=== PATIENT | male | born 1935 | race Caucasian/White ===

== ENCOUNTER → 2016-04-13 | Outpatient (CLI) | payer MEDICARE, OTHER ==
[2016-04-13 07:27] LABS: CH 31.2; CHCM 32.7; HCT 53.3 % (39.0-53.0); HDW 2.39; HGB 17.3 gm/dL (13.0-17.5); MCH 31.2 pg (25.0-35.0); MCHC 32.5 g/dL (31.0-37.0); MCV 95.9 fL (80.0-100.0); Mean Platelet Volume 7.1; RBC 5.56 m/uL (4.30-5.90); RDW 14.7 % (11.5-15.5); WBC 6.3 k/uL (3.8-10.6)
[2016-04-13 07:41] LABS: INR 2.3 (<1.1); Prothrombin Time 22.1 sec (9.0-12.0)
[2016-04-13 07:49] LABS: Anion Gap 14 mmol/L; Blood Urea Nitrogen 18 mg/dL (9-20); Calcium 9.6 mg/dL (8.4-10.2); Carbon Dioxide 30 mmol/L (22-30); Chloride 104 mmol/L (98-107); Glucose 91 mg/dL (74-99); Non-African American GFR(MDRD) 50 (>60 ml/min/1.73 sqM); Potassium 4.3 mmol/L (3.5-5.1); Sodium 148 mmol/L (137-145)
== END | disposition home or self-care (01) ==
LOC: LABWHC1 06:37
PROVIDERS: ATTEND Internal Medicine Clinical Cardiac Electrophysiology
DX: E78.2 Mixed hyperlipidemia (principal); I25.5 Ischemic cardiomyopathy
CPT/HCPCS: 36415; 80048; 85027; 85610

== ENCOUNTER 2016-04-19 06:05 | Day surgery (SDC) | payer MEDICARE, OTHER ==
[2016-04-09 13:25] VITALS: BMI 34.4
[~2016-04-19 06:05] MED LIST: SODIUM CHLORIDE 0.9% 1,000 ML IV SCH
[2016-04-19] MEDS ORDERED: LIDOCAINE 1% INJ 10MG/ML (20 ML MDV) ONE (07:41)
[2016-04-19] MEDS ORDERED: PHENYLEPHRINE-0.9% NACL SYG 1 MG/10 ML SYRINGE ONE (07:41)
[2016-04-19] MEDS ORDERED: ePHEDrine 50 MG/ML 1 ML AMP ONE (07:41)
[2016-04-19] MEDS ORDERED: MIDAZOLAM 2 MG/2 ML VIAL ONE (07:41)
[2016-04-19] MEDS ORDERED: fentaNYL (PF) 50 MCG/ML 2 ML AMP ONE (07:41)
[2016-04-19] MEDS ORDERED: PROPOFOL 10 MG/ML 20 ML VIAL IV ONE (07:41)
[2016-04-19 07:44] LABS: INR 2.7 (<1.1); Prothrombin Time 26.1 sec (9.0-12.0)
[2016-04-19] MEDS ORDERED: LIDOCAINE 2% INJ 20 MG/ML SQ ONE (08:17)
[2016-04-19] MEDS ORDERED: HEPARIN SODIUM (1,000 UNIT/ML) 1,000 UNIT in SODIUM CHLORIDE 0.9% 1,000 ML IRRIGATION ONE (08:18)
[2016-04-19] MEDS ORDERED: HYDROcodone/APAP 5-325MG 1 EACH TAB PO PRN (10:49)
[2016-04-19] MEDS ORDERED: ACETAMINOPHEN IV (For NPO) 1,000 MG in EMPTY BAG 1 BAG IVPB ONE (10:49)
[2016-04-19] MEDS ORDERED: COLCHICINE 0.6 MG TAB PO PRN (10:51)
[2016-04-19] MEDS ORDERED: ALPRAZolam 0.5 MG TAB PO PRN (10:51)
--- NOTE | 2016-04-19 11:59 | CE ---
DATE OF SERVICE: 04/19/2016 Mr. Martinez is a 80-year-old male patient with atypical atrial flutter with RVR. He is on metoprolol and amiodarone 100 mg p.o. daily. He is brought in for an EP study atrial flutter ablation. Previously several years back he underwent SVT ablation. The patient was appropriately anticoagulated, INR was therapeutic today. He is on Coumadin. He also has a history of coronary artery disease and valvular heart disease, status post bypass surgery. The patient was brought to the EP lab in a fasting state. Written informed consent was obtained prior to the procedure. Both groins were prepped and draped as per protocol. Lidocaine 1% was used for local anesthesia. Venous sheaths were placed in the right and left femoral veins, and via these diagnostic catheters, intracardiac echo catheter and later mapping ablation catheter were placed. Patient was in atrial flutter at the start of the study. His tachycardia cycle length was 279 ms. Later when he converted to sinus rhythm, sinus cycle length was 781 ms. The MO interval was 2 ms, QRS 136 ms, QT 4.89 ms. Baseline AH interval 93 ms, baseline HV interval 58 ms, sinus rhythm. Sinus recovery times at 600, 700 and 400 ms were 1145 and 984 ms. AV node ERP from the coronary sinus was 600 ( ) 340 ms, at 600 ( ) 350 ms there was a nonsustained ST-T induced for several beats, which terminated spontaneously. AV node Wenckebach block from the high right atrium was 430 ms. There was no evidence for slow pathway conduction. AV node Wenckebach block 420 ms. When Isuprel was used, AV node Wenckebach block improved to 300 ms. There was no evidence for slow pathway conduction. No delta waves. High dose Isuprel was used and there was no induction of atrial fibrillation either. The 3D anatomic mapping was performed. Intracardiac echo was placed and anatomic mapping of the right atrial isthmus was performed. The tricuspid annulus and eustachian ridge were tagged and small pouch in the mid isthmus was tagged. Mapping was performed during atrial flutter. RF applications were applied from the tricuspid annulus and ( ) anatomic line was completed. The tachycardia terminated, consistent with caval tricuspid re-entry. This line was then completed and a complete anatomic line was made after anatomic line was completed. Pacing maneuvers were performed and bidirectional block was proven. Isthmus conduction time was 187 ms in both directions. Thereafter a full EP study was performed on and off Isuprel. Other than nonsustained SVT, no other arrhythmias were induced. IMPRESSION: Successful ablation for atrial flutter with complete bidirectional block, Isthmus conduction time on 100 mg of amiodarone was 187 ms. PLAN: Continue anticoagulation. Continue low-dose amiodarone and consider reducing amiodarone to 50 mg a day and continue metoprolol.
--- NOTE | 2016-04-19 12:03 | LTR ---
April 19, 2016 Dr. Dilshad Lopez RE: Rene Martinez Dear Dr. Lopez: I had the pleasure of seeing Mr. Rene Martinez in electrophysiology follow-up. Mr. Martinez has sustained typical atrial flutter, symptomatic, and he underwent successful ablation and termination of atrial flutter followed by completion of the ablation line with bidirectional block. He will continue anticoagulation lifelong and hopefully we can reduce the amiodarone now to 50 mg p.o. daily. Atrial fibrillation was not induced with atrial pacing, nor was it induced with high-dose Isuprel. Thank you for entrusting me with of the care of your patient. Warm regards. Sincerely, SUSIE HERRERA MD
--- NOTE | 2016-04-19 12:05 | DS ---
DATE OF ADMISSION: 04/19/2016 DATE OF DISCHARGE: 04/19/2016 Mr. Martinez is 80-year-old male patient who has known coronary disease heart disease, valvular heart disease, history of SVT and now with sustained atrial flutter. He underwent successful ablation for atrial flutter with complete bidirectional block. The atrial flutter was terminated at the end of the procedure. He will be monitored overnight on telemetry. All of his medications will be continued including Coumadin and amiodarone and metoprolol. He will follow up in the office in about 7 [address] Soares. In the future we may consider reducing amiodarone to 50 mg p.o. daily.
[2016-04-19] MEDS ORDERED: ACETAMINOPHEN TAB 325 MG TAB PO PRN (17:00)
[2016-04-19] MEDS ORDERED: WARFARIN 2.5 MG TAB PO SCH (18:00)
[2016-04-19] MEDS: PREGABALIN 75 MG CAP PO SCH (20:31)
[2016-04-19] MEDS: METOPROLOL TARTRATE 25 MG TAB PO SCH (20:31)
[2016-04-19] MEDS ORDERED: EZETIMIBE 10 MG TAB PO SCH (21:00)
[2016-04-19] MEDS ORDERED: PRAVASTATIN SODIUM 40 MG TAB PO SCH (21:00)
[2016-04-19] MEDS ORDERED: TAMSULOSIN 0.4 MG CAP.ER.24H PO SCH (21:00)
[2016-04-20 04:26] VITALS: RESP 18
[2016-04-20] MEDS ORDERED: LEVOTHYROXINE 50 MCG TAB PO SCH (06:30)
[2016-04-20 07:52] VITALS: BP 147/78; PULSE 69; TEMP 97.8
[2016-04-20 08:28] LABS: INR 2.8 (<1.1); Prothrombin Time 26.6 sec (9.0-12.0)
[2016-04-20 08:29] LABS: CH 31.8; CHCM 32.9; HCT 49.5 % (39.0-53.0); HDW 2.41; HGB 15.8 gm/dL (13.0-17.5); MCH 31.1 pg (25.0-35.0); MCV 97.4 fL (80.0-100.0); Mean Platelet Volume 7.8; RBC 5.08 m/uL (4.30-5.90); RDW 14.9 % (11.5-15.5); WBC 7.2 k/uL (3.8-10.6)
[2016-04-20] MEDS: PREGABALIN 75 MG CAP PO SCH (08:29)
[2016-04-20] MEDS: METOPROLOL TARTRATE 25 MG TAB PO SCH (08:29)
[2016-04-20 08:48] LABS: Anion Gap 10 mmol/L; Blood Urea Nitrogen 15 mg/dL (9-20); Calcium 9.1 mg/dL (8.4-10.2); Carbon Dioxide 29 mmol/L (22-30); Chloride 104 mmol/L (98-107); Glucose 84 mg/dL (74-99); Non-African American GFR(MDRD) 53 (>60 ml/min/1.73 sqM); Sodium 143 mmol/L (137-145)
[2016-04-20] MEDS ORDERED: AMIODARONE 100 MG TAB PO SCH (09:00)
[2016-04-20] MEDS ORDERED: CLOPIDOGREL 75 MG TAB PO SCH (09:00)
[2016-04-20] MEDS ORDERED: ASPIRIN 81 MG CHEW PO SCH (09:00)
--- NOTE | 2016-04-20 10:55 | P.DS ---
Providers Attending physician: Denver Gandara Primary care physician: [facility] Course: Patient is doing well this morning. He denies any chest discomfort no undue shortness of breath. He feels a lot better when he walked in the hallways he had more energy and he was less short of breath. He maintains sinus rhythm No groin pain no swelling. He is afebrile 97.8F, blood pressure 147/78 mmHg pulse rate in the 60s Heart sounds are normal and crisp No S3 gallop no rub Breath sounds are normal no rhonchi no crackles air entry is equal bilaterally Abdomen is soft nontender Extremities are warm no edema, no hematoma in the groins no tenderness in the groins Impression Sustained atrial flutter, drug refractory, symptomatic Now in sinus rhythm status post successful atrial flutter ablation CAD Status post coronary artery bypass grafting Status post stenting of the left circumflex Hypertension with hypertensive heart disease Plan Discharge home No changes in medications Follow-up with Dr. Dr. Soares in 1-2 weeks Plan - Discharge Summary Discharge Medication List RX: Ezetimibe [Zetia] 10 mg PO HS 08/14/13 [History] RX: Levothyroxine Sodium [Synthroid] 50 mcg PO QAM 08/14/13 [History] RX: Pregabalin [Lyrica] 75 mg PO BID 08/14/13 [History] RX: Tamsulosin [Flomax] 0.8 mg PO HS 08/14/13 [History] RX: Cyanocobalamin [Vitamin B-12] 500 mcg PO DAILY 10/30/13 [History] RX: Multivitamin/Iron/Folic Acid [Centrum Complete Multivit Tab] 1 tab PO DAILY 10/30/13 [History] RX: ALPRAZolam [Xanax] 0.5 mg PO Q8H PRN 08/11/15 [History] RX: Cholecalciferol [Vitamin D3] 400 unit PO BID 08/12/15 [History] RX: Colchicine 0.6 mg PO DAILY PRN 01/14/16 [History] RX: Pravastatin Sodium [Pravachol] 40 mg PO HS 01/14/16 [History] RX: Amiodarone HCl [Cordarone] 100 mg PO QAM 01/28/16 [History] RX: Metoprolol Tartrate [Lopressor] 25 mg PO Q12HR 02/10/16 [History] RX: Nitroglycerin Sl Tabs [Nitrostat] 0.4 mg SUBLINGUAL DIRECTED PRN [History] Warfarin [Coumadin] 5 mg PO SUTUWEFR 03/26/16 [History] RX: Aspirin 81 mg PO QAM 04/09/16 [History] RX: Clopidogrel [Plavix] 75 mg PO QAM 04/09/16 [History] Warfarin [Coumadin] 2.5 mg PO MOTHSA 04/09/16 [History] Follow up Appointment(s)/Referral(s): Denver Gandara MD [STAFF PHYSICIAN] - 1 Week (May 04 10:00) Patient Instructions/Handouts: Electrophysiology Study (DC), Cardiac Ablation ( DC) Activity/Diet/Wound Care/Special Instructions: low fat/low salt diet activity limitations; avoid stairs as much as possible limit activity for 3 days; no running, kicking, jumping you may shower, do not take a bath apply gentle pressure when laughing, sneezing, straining to have a bowel movement avoid bending at the hips repeatedly do not lift more than 10 pounds for 2 weeks
[2016-04-20] MEDS ORDERED: WARFARIN 5 MG TAB PO SCH (18:00)
== END 2016-04-20 09:52 ==
LOC: CATHEP 06:05 → 3OBS 09:58 → CATHEP 04-20 09:52
PROVIDERS: ATTEND Internal Medicine Clinical Cardiac Electrophysiology
DX: I48.4 Atypical atrial flutter (principal); I25.10 Atherosclerotic heart disease of native coronary artery without angina pectoris; Z95.5 Presence of coronary angioplasty implant and graft; Z95.1 Presence of aortocoronary bypass graft; E78.2 Mixed hyperlipidemia; I11.9 Hypertensive heart disease without heart failure; I25.5 Ischemic cardiomyopathy; G47.33 Obstructive sleep apnea (adult) (pediatric); Z79.01 Long term (current) use of anticoagulants; Z79.02 Long term (current) use of antithrombotics/antiplatelets; Z79.82 Long term (current) use of aspirin; Z79.899 Other long term (current) drug therapy
CPT/HCPCS: 93623; 93662; 93613; 93653; 80048; 85027; 85610 ×2; C1894; C1769; C1893; C1730 ×3; C1759; C1732; J2001 ×2; J2250; J3010; J1644; J2370; J2704; 99152; 99153

== ENCOUNTER → 2016-04-26 | Outpatient (CLI) | payer MEDICARE, OTHER ==
[2016-04-26 08:03] LABS: ALT 34 U/L (21-72); AST 25 U/L (17-59); Alkaline Phosphatase 75 U/L (38-126); Anion Gap 11 mmol/L; Blood Urea Nitrogen 19 mg/dL (9-20); Calcium 9.5 mg/dL (8.4-10.2); Carbon Dioxide 29 mmol/L (22-30); Chloride 105 mmol/L (98-107); Cholesterol 149 mg/dL (<200); Glucose 93 mg/dL (74-99); HDL Cholesterol 48 mg/dL (40-60); Non-African American GFR(MDRD) 55 (>60 ml/min/1.73 sqM); Potassium 4.1 mmol/L (3.5-5.1); Sodium 145 mmol/L (137-145); Total Bilirubin 0.9 mg/dL (0.2-1.3); Total Protein 7.2 g/dL (6.3-8.2); Triglycerides 128 mg/dL (<150)
== END | disposition home or self-care (01) ==
LOC: LABWHC1 07:26
PROVIDERS: ATTEND Internal Medicine Interventional Cardiology
DX: E78.2 Mixed hyperlipidemia (principal)
CPT/HCPCS: 36415; 80053; 80061

== ENCOUNTER → 2016-07-09 | Outpatient (CLI) | payer MEDICARE, OTHER ==
--- NOTE | 2016-07-09 16:55 | US ---
EXAMINATION TYPE: US carotid duplex BILAT DATE OF EXAM: 07/09/2016 4:30 PM COMPARISON: 04/29/2015 CLINICAL HISTORY: Occlusion I65.29, Nodule E0.41. stenosis, no symptoms EXAM MEASUREMENTS: RIGHT: Peak Systolic Velocity (PSV) cm/sec ----- Right CCA: 59.5 ----- Right ICA: 97.7 ----- Right ECA: 153.7 ICA/CCA ratio: 1.6 RIGHT: End Diastole cm/sec ----- Right CCA: 14.2 ----- Right ICA: 17.7 ----- Right ECA: 16.3 LEFT: Peak Systolic Velocity (PSV) cm/sec ----- Left CCA: 61.1 ----- Left ICA: 201.2 ----- Left ECA: 121.8 ICA/CCA ratio: 3.3 LEFT: End Diastole cm/sec ----- Left CCA: 15.8 ----- Left ICA: 54.9 ----- Left ECA: 17.3 VERTEBRALS (direction of flow): Right Vertebral: Antegrade Left Vertebral: Antegrade IMPRESSION: 1. 50-69% BY DIAMETER STENOSIS OF THE PROXIMAL LEFT ICA. 2. ELEVATED FLOW VELOCITIES IN BOTH ECAS. Criteria for Assigning % of Stenosis / Diameter reduction (Estimation based on the indirect measurements of the internal carotid artery velocities (ICA PSV). 1. Normal (no stenosis)=ICA PSV < 125 cm/s: ratio < 2.0: ICA EDV<40 cm/s. 2. Less than 50% stenosis=ICA PSV < 125 cm/s: ratio < 2.0: ICA EDV<40 cm/s. 3. 50 to 69% stenosis=ICA PSV of 125 to 230 cm/s: ration 2.0 ? 4.0: ICA EDV 40-100 cm/s. 4. Greater than 70% stenosis to near occlusion= ICA PSV > 230 cm/s: ratio > 4.0: ICA EDV > 100 cm/s. 5. Near occlusion= ICA PSV velocities may be low or undetectable: variable ratio and ICA EDV. 6. Total occlusion=unable to detect flow.
--- NOTE | 2016-07-09 16:57 | US ---
EXAMINATION TYPE: US thyroid st tissue head/neck DATE OF EXAM: 07/09/2016 4:13 PM COMPARISON: 01/05/2016 CLINICAL HISTORY: Occlusion I65.29, Nodule E0.41. follow up exam GLAND SIZE: Right Lobe: 3.9 x 1.5 x 2.4 cm Overall Parenchyma: heterogenous Left Lobe: 3.1 x 0.9 x 1.8 cm Overall Parenchyma: homogeneous Isthmus Thickness: 0.5 cm NODULES RIGHT: # of nodules measured on right: 1 1. 0.7 x 0.5 x 0.5 cm cystic nodule at the mid pole with well-defined margins. This nodule is talle r than wide and shows no intranodular vascularity. Prior size: 0.7 x 0.4 x 0.7 cm LEFT: # of nodules measured on left: 0 ISTHMUS: # of nodules measured in the isthmus: 0 Bilateral neck scanned, no evidence of lymphadenopathy. IMPRESSION: STABLE RIGHT THYROID NODULE.
== END | disposition home or self-care (01) ==
LOC: RADUSWWP 15:57
PROVIDERS: ATTEND Family Medicine
DX: I65.22 Occlusion and stenosis of left carotid artery (principal)
CPT/HCPCS: 76536; 93880

== ENCOUNTER → 2016-09-21 | Outpatient (CLI) | payer MEDICARE, OTHER ==
[2016-09-21 09:35] LABS: CHCM 33.6; HCT 47.8 % (39.0-53.0); HDW 2.35; HGB 15.7 gm/dL (13.0-17.5); MCH 32.4 pg (25.0-35.0); MCHC 32.8 g/dL (31.0-37.0); MCV 98.7 fL (80.0-100.0); Mean Platelet Volume 7.2; RBC 4.84 m/uL (4.30-5.90); RDW 14.4 % (11.5-15.5); WBC 6.4 k/uL (3.8-10.6)
[2016-09-21 11:01] LABS: Hemoglobin A1C 5.6 % (4.2-6.1)
[2016-09-21 12:13] LABS: Calcium 9.4 mg/dL (8.4-10.2); Potassium 4.4 mmol/L (3.5-5.1); Total Bilirubin 0.7 mg/dL (0.2-1.3); Total Protein 6.8 g/dL (6.3-8.2)
[2016-09-21 12:36] LABS: Prostate Specific Antigen 4.2 ng/mL (0.00-4.00)
== END | disposition home or self-care (01) ==
LOC: LABWHC1 08:59
PROVIDERS: ATTEND Family Medicine
DX: Z00.00 Encounter for general adult medical examination without abnormal findings (principal); E55.9 Vitamin D deficiency, unspecified; Z12.5 Encounter for screening for malignant neoplasm of prostate
CPT/HCPCS: 36415; 80053; 80061; 82306; 83036; 84153; 84443; 85027

== ENCOUNTER → 2016-09-30 | Outpatient (CLI) | payer MEDICARE, OTHER ==
[2016-09-30 10:48] LABS: Anion Gap 13 mmol/L; Blood Urea Nitrogen 22 mg/dL (9-20); Calcium 9.2 mg/dL (8.4-10.2); Carbon Dioxide 23 mmol/L (22-30); Chloride 106 mmol/L (98-107); Glucose 116 mg/dL (74-99); Non-African American GFR(MDRD) 53 (>60 ml/min/1.73 sqM); Potassium 4.3 mmol/L (3.5-5.1); Sodium 142 mmol/L (137-145)
== END ==
LOC: LABWHC1 09:45
PROVIDERS: ATTEND Family Medicine
DX: R89.9 Unspecified abnormal finding in specimens from other organs, systems and tissues (principal)
CPT/HCPCS: 36415; 80048

== ENCOUNTER 2016-10-24 18:57 | Emergency (ER) | payer MEDICARE, OTHER ==
[2016-10-24] MEDS ORDERED: ACETAMINOPHEN TAB 500 MG TAB PO STA (19:34)
[2016-10-24] MEDS ORDERED: RX INFO: IV CONTRAST WAS GIVEN 1 EACH MISC MISCELLANE PRN (19:35)
--- NOTE | 2016-10-24 19:37 | ED ---
General Adult HPI - General Chief complaint: Fever Stated complaint: Fever Time Seen by Provider: 10/24/16 19:29 Source: patient, family, RN notes reviewed Mode of arrival: wheelchair Limitations: altered mental status - History of Present Illness Initial comments: Patient is a pleasant 81-year-old male presenting to the emergency department with fever. Patient has been fatigued most of the day. Patient did notice fever prior to arrival. Patient has not taken any medications for fever. No cough. No dysuria. Patient does feel slightly constipated the last couple of days and has mild discomfort left lower abdomen. No true weakness. Patient does not feel confused. - Related Data Home Medications Medication Instructions Recorded Confirmed Ezetimibe [Zetia] 10 mg PO HS 08/14/13 10/24/16 Levothyroxine Sodium [Synthroid] 50 mcg PO QAM 08/14/13 10/24/16 Pregabalin [Lyrica] 75 mg PO BID 08/14/13 10/24/16 Tamsulosin [Flomax] 0.8 mg PO HS 08/14/13 10/24/16 ALPRAZolam [Xanax] 0.5 mg PO Q8H PRN 08/11/15 10/24/16 Colchicine 0.6 mg PO DAILY PRN 01/14/16 10/24/16 Pravastatin Sodium [Pravachol] 40 mg PO HS 01/14/16 10/24/16 Amiodarone HCl [Cordarone] 100 mg PO QAM 01/28/16 10/24/16 Metoprolol Tartrate [Lopressor] 25 mg PO Q12HR 02/10/16 10/24/16 Nitroglycerin Sl Tabs [Nitrostat] 0.4 mg SUBLINGUAL Q5M PRN 02/10/16 10/24/16 Warfarin [Coumadin] 5 mg PO MOTUWEFRSA 03/26/16 10/24/16 Aspirin 81 mg PO QAM 04/09/16 10/24/16 Clopidogrel [Plavix] 75 mg PO QAM 04/09/16 10/24/16 Warfarin [Coumadin] 2.5 mg PO SUTH 04/09/16 10/24/16 Cholecalciferol [Vitamin D3] 400 unit PO BID 07/08/16 10/24/16 Cyanocobalamin [Vitamin B-12] 500 mcg PO DAILY 07/08/16 10/24/16 Multivit-Min/FA/Lycopen/Lutein 1 tab PO DAILY 07/08/16 10/24/16 [Centrum Silver Tablet] Previous Rx's Medication Instructions Recorded Levofloxacin [Levaquin] 500 mg PO DAILY #9 tab 10/24/16 metroNIDAZOLE [Flagyl] 500 mg PO QID #40 tab 10/24/16 Allergies Allergy/AdvReac Type Severity Reaction Status Date / Time No Known Allergies Allergy Verified 10/24/16 19:46 Review of Systems ROS Statement: Those systems with pertinent positive or pertinent negative responses have been documented in the HPI. ROS Other: All systems not noted in ROS Statement are negative. Constitutional: Reports: fever Eyes: Denies: eye pain ENT: Denies: ear pain Respiratory: Denies: cough, dyspnea Cardiovascular: Denies: chest pain Endocrine: Reports: fatigue Gastrointestinal: Reports: abdominal pain, constipation Genitourinary: Denies: dysuria Musculoskeletal: Denies: back pain Skin: Denies: rash Neurological: Denies: headache, confusion Past Medical History Past Medical History: Atrial Fibrillation, Atrial Flutter, Coronary Artery Disease (CAD), Chest Pain / Angina, Hyperlipidemia, Hypertension, Myocardial Infarction ([place]), Osteoarthritis (OA), Prostate Disorder, Skin Disorder, Thyroid Disorder Additional Past Medical History / Comment(s): Diverticulitis, HX PERFORATION. Gout. Eczema. BPH. Chronic Back Pain D/T PINCHED NERVE, USES CANE FOR DISTANCES. HX VERTIGO. FOOD GETTING STUCK IN THROAT - REMOVAL X3. Last Myocardial Infarction Date:: 08/2015 History of Any Multi-Drug Resistant Organisms: None Reported Past Surgical History: Cardiac Ablation, Coronary Bypass/CABG, Heart Catheterization With Stent, Tonsillectomy Additional Past Surgical History / Comment(s): 02/11/16 Cardiac stent to SVG to diagonal; TOTAL 3 NOW. CABG X3 0n 07/11/15. CYST REMOVED FROM HEART 195; LEFT TESTICLE REMOVED; МАРИНА CATARACTS. EGD W/ REMOVAL FB X3. Past Anesthesia/Blood Transfusion Reactions: No Reported Reaction Additional Past Anesthesia/Blood Transfusion Reaction / Comment(s): no family hx Date of Last Stent Placement:: 02/11/16 Past Psychological History: PTSD Smoking Status: Former smoker Past Alcohol Use History: None Reported Past Drug Use History: None Reported - Past Family History Mother Family Medical History: Unable to Obtain Additional Family Medical History / Comment(s): Mother had a pacemaker. Father History Unknown: Yes Family Medical History: Myocardial Infarction ([place]) General Exam Limitations: altered mental status General appearance: alert, in no apparent distress Head exam: Present: atraumatic Eye exam: Present: normal appearance, PERRL, EOMI ENT exam: Present: normal oropharynx Neck exam: Present: normal inspection Respiratory exam: Present: normal lung sounds bilaterally Cardiovascular Exam: Present: regular rate, normal rhythm GI/Abdominal exam: Present: soft. Absent: distended, tenderness Extremities exam: Present: normal inspection Neurological exam: Present: alert, CN II-XII intact. Absent: motor sensory deficit Expanded Motor strength exam: RUE: 5, LUE: 5, RLE: 5, LLE: 5 Psychiatric exam: Present: normal affect, normal mood Skin exam: Present: normal color Course Vital Signs 10/24/16 10/24/16 19:09 21:13 Temperature 102 F H 98.3 F Pulse Rate 76 83 Respiratory 20 18 Rate Blood Pressure 138/69 O2 Sat by Pulse 95 98 Oximetry EKG Findings - EKG Comments: EKG Findings:: Normal sinus rhythm 77. MN 184. QRS 158. QT 418. QTC 473. Left axis. Right bundle branch block. Left anterior fascicular block. No acute ST change. Medical Decision Making - Medical Decision Making Patient reexamined and resting comfortably in bed. Patient does feel much better and requests discharge. Patient is offered admission however would like to go home. Patient is advised for close follow-up. - Lab Data Result diagrams: 10/24/16 19:30 10/24/16 19:30 Lab Results 10/24/16 10/24/16 10/24/16 Range/Units 19:30 19:30 19:30 WBC 9.8 (3.8-10.6) k/uL RBC 5.13 (4.30-5.90) m/uL Hgb 16.5 (13.0-17.5) gm/dL Hct 49.4 (39.0-53.0) % MCV 96.2 (80.0-100.0) fL MCH 32.2 (25.0-35.0) pg MCHC 33.5 (31.0-37.0) g/dL RDW 14.0 (11.5-15.5) % Plt Count 157 (150-450) k/uL Neutrophils % 81 % Lymphocytes % 7 % Monocytes % 8 % Eosinophils % 1 % Basophils % 0 % Neutrophils # 7.9 H (1.3-7.7) k/uL Lymphocytes # 0.7 L (1.0-4.8) k/uL Monocytes # 0.8 (0-1.0) k/uL Eosinophils # 0.1 (0-0.7) k/uL Basophils # 0.0 (0-0.2) k/uL PT (9.0-12.0) sec INR (<1.2) APTT (22.0-30.0) sec Sodium 139 (137-145) mmol/L Potassium 4.4 (3.5-5.1) mmol/L Chloride 105 (98-107) mmol/L Carbon Dioxide 20 L (22-30) mmol/L Anion Gap 14 mmol/L BUN 18 (9-20) mg/dL Creatinine 1.10 (0.66-1.25) mg/dL Est GFR (MDRD) Af Amer >60 (>60 ml/min/1.73 sqM) Est GFR (MDRD) Non-Af >60 (>60 ml/min/1.73 sqM) Glucose 97 (74-99) mg/dL Plasma Lactic Acid Alexey 1.0 (0.7-2.0) mmol/L Calcium 9.4 (8.4-10.2) mg/dL Total Bilirubin 0.9 (0.2-1.3) mg/dL AST 33 (17-59) U/L ALT 27 (21-72) U/L Alkaline Phosphatase 81 (38-126) U/L Total Protein 7.4 (6.3-8.2) g/dL Albumin 4.5 (3.5-5.0) g/dL Urine Color Urine Appearance (Clear) Urine pH (5.0-8.0) Ur Specific [place] (1.001-1.035) Urine Protein (Negative) Urine Glucose (UA) (Negative) Urine Ketones (Negative) Urine Blood (Negative) Urine Nitrite (Negative) Urine Bilirubin (Negative) Urine Urobilinogen (<2.0) mg/dL Ur Leukocyte Esterase (Negative) Urine RBC (0-5) /hpf Urine WBC (0-5) /hpf Urine Mucus (None) /hpf 10/24/16 10/24/16 Range/Units 19:30 19:30 WBC (3.8-10.6) k/uL RBC (4.30-5.90) m/uL Hgb (13.0-17.5) gm/dL Hct (39.0-53.0) % MCV (80.0-100.0) fL MCH (25.0-35.0) pg MCHC (31.0-37.0) g/dL RDW (11.5-15.5) % Plt Count (150-450) k/uL Neutrophils % % Lymphocytes % % Monocytes % % Eosinophils % % Basophils % % Neutrophils # (1.3-7.7) k/uL Lymphocytes # (1.0-4.8) k/uL Monocytes # (0-1.0) k/uL Eosinophils # (0-0.7) k/uL Basophils # (0-0.2) k/uL PT 20.8 H (9.0-12.0) sec INR 2.2 H (<1.2) APTT 31.7 H (22.0-30.0) sec Sodium (137-145) mmol/L Potassium (3.5-5.1) mmol/L Chloride (98-107) mmol/L Carbon Dioxide (22-30) mmol/L Anion Gap mmol/L BUN (9-20) mg/dL Creatinine (0.66-1.25) mg/dL Est GFR (MDRD) Af Amer (>60 ml/min/1.73 sqM) Est GFR (MDRD) Non-Af (>60 ml/min/1.73 sqM) Glucose (74-99) mg/dL Plasma Lactic Acid Alexey (0.7-2.0) mmol/L Calcium (8.4-10.2) mg/dL Total Bilirubin (0.2-1.3) mg/dL AST (17-59) U/L ALT (21-72) U/L Alkaline Phosphatase (38-126) U/L Total Protein (6.3-8.2) g/dL Albumin (3.5-5.0) g/dL Urine Color Yellow Urine Appearance Clear (Clear) Urine pH 5.5 (5.0-8.0) Ur Specific [place] 1.011 (1.001-1.035) Urine Protein Trace H (Negative) Urine Glucose (UA) Negative (Negative) Urine Ketones Negative (Negative) Urine Blood Small H (Negative) Urine Nitrite Negative (Negative) Urine Bilirubin Negative (Negative) Urine Urobilinogen <2.0 (<2.0) mg/dL Ur Leukocyte Esterase Negative (Negative) Urine RBC 11 H (0-5) /hpf Urine WBC <1 (0-5) /hpf Urine Mucus Rare H (None) /hpf - Radiology Data Radiology results: report reviewed (Computed tomography scan of the abdomen and pelvis shows diverticulitis.) Interpreted by me: Chest x-ray shows no acute infiltrate Disposition Clinical Impression: Diverticulitis Disposition: HOME SELF-CARE Condition: Stable Instructions: Fever in Adults (ED), Diverticulitis (ED) Additional Instructions: Please follow-up with your doctor in the being the week. Return for fevers, increased pain, weakness, vomiting, worsening symptoms or other concerns. Over- the-counter Tylenol as needed. Prescriptions: Levofloxacin [Levaquin] 500 mg PO DAILY #9 tab metroNIDAZOLE [Flagyl] 500 mg PO QID #40 tab Referrals: Dilshad Lopez DO [Primary Care Provider] - 1-2 days Time of Disposition: 21:33
[2016-10-24 19:53] LABS: Basophils % (A) 0 %; CH 33.5; Eosinophils # (A) 0.1 k/uL (0-0.7); Eosinophils % (A) 1 %; HCT 49.4 % (39.0-53.0); HGB 16.5 gm/dL (13.0-17.5); Luc # (Auto) 0.26; Luc % (Auto) 3; Lymphocytes # (A) 0.7 k/uL (1.0-4.8); Lymphocytes % (A) 7 %; MCH 32.2 pg (25.0-35.0); MCHC 33.5 g/dL (31.0-37.0); MCV 96.2 fL (80.0-100.0); Mean Platelet Volume 7.1; Monocytes # (A) 0.8 k/uL (0-1.0); Monocytes % (A) 8 %; Neutrophils # (A) 7.9 k/uL (1.3-7.7); Neutrophils % (A) 81 %; RBC 5.13 m/uL (4.30-5.90); WBC 9.8 k/uL (3.8-10.6); WBC (Perox) 9.67
[2016-10-24 20:03] LABS: Anion Gap 14 mmol/L; Calcium 9.4 mg/dL (8.4-10.2); Carbon Dioxide 20 mmol/L (22-30); Chloride 105 mmol/L (98-107); Glucose 97 mg/dL (74-99); Non-African American GFR(MDRD) >60 (>60 ml/min/1.73 sqM); Sodium 139 mmol/L (137-145); Total Bilirubin 0.9 mg/dL (0.2-1.3)
[2016-10-24 20:06] LABS: INR 2.2 (<1.2); Partial Thromboplastin Time 31.7 sec (22.0-30.0); Prothrombin Time 20.8 sec (9.0-12.0)
[2016-10-24 20:09] LABS: Blood Urea Nitrogen 18 mg/dL (9-20); Potassium 4.4 mmol/L (3.5-5.1)
[2016-10-24 20:10] LABS: ALT 27 U/L (21-72); AST 33 U/L (17-59); Alkaline Phosphatase 81 U/L (38-126); Total Protein 7.4 g/dL (6.3-8.2)
[2016-10-24] MEDS: SODIUM CHLORIDE 0.9% 500 ML IV SCH (20:18)
[2016-10-24 20:38] LABS: Appearance,Urine Clear (Clear); Bilirubin,Urine Negative (Negative); Glucose,Urine (UA) Negative (Negative); Ketones,Urine Negative (Negative); Leukocyte Esterase,Urine Negative (Negative); Mucus,Urine Rare /hpf; Nitrite,Urine Negative (Negative); PH, Urine 5.5 (5.0-8.0); Particle Count 539; Protein,Urine Trace (Negative); RBC,Urine 11 /hpf (0-5); Specific Gravity,Urine 1.011 (1.001-1.035); UA Billing (MACRO vs. MICRO) MICRO; Urobilinogen,Urine <2.0 mg/dL (<2.0); WBC,Urine <1 /hpf (0-5)
--- NOTE | 2016-10-24 21:03 | CT ---
EXAMINATION TYPE: CT abdomen pelvis w con DATE OF EXAM: 10/24/2016 COMPARISON: 01/19/2016 HISTORY: Abdominal pain and fever. CT DLP: 2102 mGycm Automated exposure control for dose reduction was used. TECHNIQUE: Helical acquisition of images was performed from the lung bases through the pelvis. CONTRAST: Performed without Oral Contrast and with IV Contrast, patient injected with 100 mL of Omnipaque 300. FINDINGS: Lung bases are clear of consolidation. There is no pleural effusion. Heart is enlarged. There is athe rosclerotic vascular calcification. Liver spleen pancreas gallbladder appear normal. Bile ducts are not dilated. There is no adrenal mass. Kidneys show satisfactory contrast opacification. There is no hydronephrosi s. There is a 2 cm cortical cyst on the lower pole right kidney. There is no retroperitoneal adenopat hy. There is minimal fat stranding around the mid sigmoid colon. There are a few sigmoid diverticula. The re is no ascites. There is no sign of free air. I see no bony destructive process. Prostate is enlarg ed. Prostate measures 6 x 6 cm. IMPRESSION: THERE IS EVIDENCE OF FOCAL SIGMOID DIVERTICULITIS THAT IS IMPROVED COMPARED TO OLD CT SCAN. NO DEFINI TE DRAINABLE ABSCESS. ATHEROSCLEROTIC VASCULAR DISEASE. MARKEDLY ENLARGED PROSTATE GLAND. CARDIOMEGALY..
[2016-10-24 21:14] VITALS: RESP 18
[2016-10-24] MEDS ORDERED: metroNIDAZOLE 500 MG TAB PO STA (21:34)
[2016-10-24] MEDS ORDERED: LEVOFLOXACIN 750 MG TAB PO STA (21:34)
--- NOTE | 2016-10-24 21:43 | XR ---
EXAMINATION TYPE: XR chest 2V DATE OF EXAM: 10/24/2016 COMPARISON: 03/26/2016 HISTORY: Weakness TECHNIQUE: Frontal and lateral views of the chest are obtained. FINDINGS: Heart appears enlarged. There is no gross heart failure. There is mild linear density at t he right lung base. There are sternal wires. There are chest leads. IMPRESSION: Mild subsegmental atelectasis at right lung base without change compared to old exam. Ca rdiomegaly. No pulmonary consolidation.
[2016-10-24 22:08] VITALS: BP 141/57; PULSE 80; TEMP 97.1
== END 2016-10-24 22:05 | disposition home or self-care (01) ==
LOC: EC 18:57
DX: K57.32 Diverticulitis of large intestine without perforation or abscess without bleeding (principal); R41.82 Altered mental status, unspecified; I48.91 Unspecified atrial fibrillation; I25.10 Atherosclerotic heart disease of native coronary artery without angina pectoris; E78.5 Hyperlipidemia, unspecified; I25.2 Old myocardial infarction; E07.9 Disorder of thyroid, unspecified; F43.10 Post-traumatic stress disorder, unspecified; I45.2 Bifascicular block; I11.9 Hypertensive heart disease without heart failure; Z95.1 Presence of aortocoronary bypass graft; Z79.01 Long term (current) use of anticoagulants; Z79.02 Long term (current) use of antithrombotics/antiplatelets; Z79.82 Long term (current) use of aspirin; Z79.899 Other long term (current) drug therapy; Z87.891 Personal history of nicotine dependence
CPT/HCPCS: 99284; 96360; 36415; 93005; 80053; 83605; 85025; 85610; 85730; 81001; 87040; 87086; 71020; 74177; Q9967

== ENCOUNTER → 2017-01-21 | Outpatient (CLI) | payer MEDICARE, OTHER ==
[2017-01-21 07:39] LABS: ALT 37 U/L (21-72); AST 26 U/L (17-59); Alkaline Phosphatase 70 U/L (38-126); Anion Gap 13 mmol/L; Blood Urea Nitrogen 20 mg/dL (9-20); Calcium 9.1 mg/dL (8.4-10.2); Carbon Dioxide 23 mmol/L (22-30); Chloride 107 mmol/L (98-107); Cholesterol 156 mg/dL (<200); Glucose 91 mg/dL (74-99); HDL Cholesterol 43 mg/dL (40-60); Non-African American GFR(MDRD) 53 (>60 ml/min/1.73 sqM); Potassium 4.3 mmol/L (3.5-5.1); Sodium 143 mmol/L (137-145); Total Bilirubin 0.4 mg/dL (0.2-1.3); Total Protein 7.1 g/dL (6.3-8.2)
== END | disposition home or self-care (01) ==
LOC: LABWHC1 07:04
PROVIDERS: ATTEND Internal Medicine Interventional Cardiology
DX: E78.2 Mixed hyperlipidemia (principal)
CPT/HCPCS: 36415; 80053; 80061

== ENCOUNTER → 2017-05-10 | Outpatient (CLI) | payer MEDICARE, OTHER ==
[2017-05-10 10:15] LABS: T4, Free (Free Thyroxine) 0.95 ng/dL (0.78-2.19)
== END | disposition home or self-care (01) ==
LOC: LABWHC1 09:03
PROVIDERS: ATTEND Family Medicine
DX: E03.9 Hypothyroidism, unspecified (principal)
CPT/HCPCS: 36415; 84439; 84443

== ENCOUNTER → 2017-07-01 | Outpatient (CLI) | payer MEDICARE, OTHER ==
[2017-07-01 11:07] LABS: T4, Free (Free Thyroxine) 1.14 ng/dL (0.78-2.19)
== END | disposition home or self-care (01) ==
LOC: LABWHC1 09:26
DX: E03.9 Hypothyroidism, unspecified (principal)
CPT/HCPCS: 36415; 84439; 84443; 84481

== ENCOUNTER → 2017-08-08 | Outpatient (CLI) | payer MEDICARE, OTHER ==
[2017-08-08 08:13] LABS: Albumin 4.1 g/dL (3.5-5.0); Calcium 9.8 mg/dL (8.4-10.2); Potassium 4.9 mmol/L (3.5-5.1); Total Bilirubin 0.6 mg/dL (0.2-1.3); Total Protein 6.8 g/dL (6.3-8.2)
== END | disposition home or self-care (01) ==
LOC: LABWHC1 07:24
PROVIDERS: ATTEND Internal Medicine Interventional Cardiology
DX: E78.2 Mixed hyperlipidemia (principal)
CPT/HCPCS: 36415; 80053; 80061

== ENCOUNTER → 2017-10-07 | Outpatient (CLI) | payer MEDICARE, OTHER ==
--- NOTE | 2017-10-07 13:44 | US ---
EXAMINATION TYPE: US thyroid st tissue head/neck DATE OF EXAM: 10/07/2017 COMPARISON: Thyroid ultrasound July 09, 2016 CLINICAL HISTORY: E04.1 Nontoxic Single Thyroid Nodule. follow up nodules. Hx of bx- normal GLAND SIZE: Right Lobe: 3.4 x 2.2 x 2.0 cm Overall Parenchyma: heterogenous Left Lobe: 3.1 x 1.4 x 1.4 cm Overall Parenchyma: heterogeneous Isthmus Thickness: 0.7 cm NODULES RIGHT: # of nodules measured on right: 1 Multiple subcentimeter cystic appearing lesions seen, lar gest measured. 1. 0.7 X 0.7 x 0.5 cm cystic nodule at the mid pole with well-defined margins. This nodule is tall er than wide and shows no intranodular vascularity. Prior size: 0.7 x 0.5 x 0.5 cm LEFT: # of nodules measured on left: 1 1. 0.4 X 0.5 x 0.4 cm cystic nodule at the lower pole with well-defined margins. This nodule is wi mack than tall and shows no intranodular vascularity. Prior size: No previous ISTHMUS: # of nodules measured in the isthmus: 0 Bilateral neck scanned, no evidence of lymphadenopathy. Heterogeneous somewhat small size thyroid with small nodules bilaterally is present on images saved. IMPRESSION: Heterogeneous small size thyroid with scattered small nodules, no new suspicious greater than 1 cm so lid or cystic nodules are evident bilaterally.
== END | disposition home or self-care (01) ==
LOC: RADUSWWP 12:42
PROVIDERS: ATTEND Family Medicine
DX: E04.2 Nontoxic multinodular goiter (principal)
CPT/HCPCS: 76536

== ENCOUNTER → 2017-12-28 | Outpatient (CLI) | payer MEDICARE, OTHER ==
[2017-12-28 08:43] LABS: HCT 49.6 % (39.0-53.0); HGB 15.7 gm/dL (13.0-17.5); MCH 30.6 pg (25.0-35.0); MCHC 31.6 g/dL (31.0-37.0); MCV 96.7 fL (80.0-100.0); Mean Platelet Volume 7.2; Platelet Count 159 k/uL (150-450); RBC 5.13 m/uL (4.30-5.90); RDW 13.8 % (11.5-15.5); WBC 6.6 k/uL (3.8-10.6)
[2017-12-28 10:22] LABS: Potassium 4.5 mmol/L (3.5-5.1)
[2017-12-28 10:51] LABS: Prostate Specific Antigen 5.66 ng/mL (0.00-4.00)
== END ==
LOC: LABWHC1 07:47
PROVIDERS: ATTEND Family Medicine
DX: I10 Essential (primary) hypertension (principal); N40.1 Benign prostatic hyperplasia with lower urinary tract symptoms; E04.1 Nontoxic single thyroid nodule
CPT/HCPCS: 36415; 80048; 84153; 84443; 84450; 84460; 85027

== ENCOUNTER → 2018-01-05 | Outpatient (CLI) | payer MEDICARE, OTHER ==
[2018-01-05 10:10] LABS: Calcium 9.6 mg/dL (8.4-10.2); Potassium 4.2 mmol/L (3.5-5.1)
[2018-01-05 10:33] LABS: Prostate Specific Antigen 6.12 ng/mL (0.00-4.00)
== END | disposition home or self-care (01) ==
LOC: LABWHC1 09:10
PROVIDERS: ATTEND Family Medicine
DX: R94.4 Abnormal results of kidney function studies (principal); R97.20 Elevated prostate specific antigen [PSA]
CPT/HCPCS: 36415; 80048; 84153

== ENCOUNTER → 2018-01-23 | Outpatient (CLI) | payer MEDICARE, OTHER ==
[2018-01-23 09:01] LABS: Calcium 9.2 mg/dL (8.4-10.2); Potassium 4.1 mmol/L (3.5-5.1); Total Bilirubin 0.6 mg/dL (0.2-1.3); Total Protein 6.9 g/dL (6.3-8.2)
== END ==
LOC: LABWHC1 07:24
PROVIDERS: ATTEND Internal Medicine Interventional Cardiology
DX: E78.2 Mixed hyperlipidemia (principal); I48.1 Persistent atrial fibrillation
CPT/HCPCS: 36415; 80053; 80061; 84443

== ENCOUNTER → 2018-04-19 | Outpatient (CLI) | payer MEDICARE, OTHER ==
--- NOTE | 2018-04-20 07:20 | US ---
EXAMINATION TYPE: US thyroid st tissue head/neck DATE OF EXAM: 04/19/2018 COMPARISON: US October 07, 2017 CLINICAL HISTORY: E04.1 Nontoxic single thyroid nodule. Patient has large thick neck with SOB, technically difficult study. GLAND SIZE: Right Lobe: 4.7 x 2.6 x 1.3 cm Overall Parenchyma: heterogenous Left Lobe: 3.9 x 1.4 x 1.5 cm Overall Parenchyma: heterogeneous Isthmus Thickness: 0.5 cm NODULES RIGHT: # of nodules measured on right: 1 1. 0.7 X 0.6 x 0.6 cm anechoic cystic nodule at the lower pole with well-defined margins. This nod ule is wider than tall and shows no intranodular vascularity. Prior size: 0.7 x 0.5 x 0.7 cm LEFT: # of nodules measured on left: 1 1. 0.5 X 0.4 x 0.5 cm anechoic cystic nodule at the lower pole with well-defined margins. This nod ule is wider than tall and shows no intranodular vascularity Prior size: 0.3 x 0.4 x 0.5 cm ISTHMUS: # of nodules measured in the isthmus: 0 Bilateral neck scanned, no evidence of lymphadenopathy. Suboptimal study per technologist as detailed above thyroid gland is heterogeneous in appearance but normal in size with single subcentimeter nodules redemonstrated bilaterally. No new greater than 1 cm nodules are evident. IMPRESSION: Overall stable findings, no new suspicious nodules are seen.
== END | disposition home or self-care (01) ==
LOC: RADUSWWP 16:13
PROVIDERS: ATTEND Family Medicine
DX: E04.2 Nontoxic multinodular goiter (principal)
CPT/HCPCS: 76536

== ENCOUNTER → 2018-09-05 | Outpatient (CLI) | payer MEDICARE, OTHER ==
[2018-09-05 12:30] LABS: Albumin 4.3 g/dL (3.80-4.90); Albumin/Globulin Ratio 1.95 (1.60-3.17); Anion Gap 12.3 mmol/L (4.00-12.00); Calcium 9.3 mg/dL (8.7-10.3); Carbon Dioxide 22.7 mmol/L (21.6-31.8); Globulin 2.2 g/dL (1.6-3.3); LDL Cholesterol,Calculated 74.8 mg/dL (0.0-131.0); Potassium 4.2 mmol/L (3.5-5.5); Total Bilirubin 0.5 mg/dL (0.2-1.2); Total Protein 6.5 g/dL (6.2-8.2); VLDL Calculation 35.2 mg/dL (5.00-40.00)
== END | disposition home or self-care (01) ==
LOC: LABWHC1 07:02
PROVIDERS: ATTEND Internal Medicine Interventional Cardiology
DX: D48.1 Neoplasm of uncertain behavior of connective and other soft tissue (principal); E78.2 Mixed hyperlipidemia
CPT/HCPCS: 36415; 80053; 80061; 84443

== ENCOUNTER → 2018-09-22 | Outpatient (CLI) | payer MEDICARE, OTHER ==
--- NOTE | 2018-09-22 14:44 | US ---
EXAMINATION TYPE: US thyroid st tissue head/neck DATE OF EXAM: 09/22/2018 COMPARISON: 04/19/2018 CLINICAL HISTORY: E04.1 Single Thyroid Nodule. GLAND SIZE: Right Lobe: 4.6 x 2.7 x 2.1 cm Overall Parenchyma: heterogenous Left Lobe: 3.8 x 1.6 x 1.7 cm Overall Parenchyma: heterogeneous Isthmus Thickness: 0.7 cm NODULES RIGHT: # of nodules measured on right: 1 1. 0.6 x 0.7 cm hypoechoic mixed nodule at the lower pole with well-defined margins. This nodule i s wider than tall and shows no intranodular vascularity. Prior size: 0.7 x 0.6 x 0.6 cm There are also multiple subcentimeter right thyroid nodules that measure up to 3 mm. LEFT: # of nodules measured on left: 1. 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 This demonstr ates minimal enlargement from the prior. ISTHMUS: # of nodules measured in the isthmus: 0 Bilateral neck scanned, no evidence of lymphadenopathy. IMPRESSION: Multiple bilateral thyroid nodules with only minimal growth of a left benign-appearing thyroid nodule . The largest nodule measures up to 8mm and does not meet criteria for fine-needle aspiration at this time.
== END ==
LOC: RADUSWWP 13:53
PROVIDERS: ATTEND Family Medicine
DX: E04.2 Nontoxic multinodular goiter (principal)
CPT/HCPCS: 76536

== ENCOUNTER 2018-09-26 11:24 | Emergency (ER) | payer MEDICARE, OTHER ==
[2018-09-26] MEDS ORDERED: SODIUM CHLORIDE 0.9% 1,000 ML IV STA (12:21)
[2018-09-26] MEDS ORDERED: IPRATROPIUM-ALBUTEROL 3 ML NEB INHALATION STA ×2 (12:21→14:31)
[2018-09-26 12:51] LABS: Basophils % (A) 1 %; Eosinophils # (A) 0.2 k/uL (0-0.7); Eosinophils % (A) 2 %; HCT 49.6 % (39.0-53.0); HGB 15.9 gm/dL (13.0-17.5); Lymphocytes # (A) 0.8 k/uL (1.0-4.8); Lymphocytes % (A) 12 %; MCH 30.9 pg (25.0-35.0); MCV 96.7 fL (80.0-100.0); Mean Platelet Volume 7.6; Monocytes # (A) 0.7 k/uL (0-1.0); Monocytes % (A) 10 %; Neutrophils # (A) 4.6 k/uL (1.3-7.7); Neutrophils % (A) 71 %; Platelet Count 154 k/uL (150-450); RBC 5.13 m/uL (4.30-5.90); WBC 6.5 k/uL (3.8-10.6)
[2018-09-26 13:06] LABS: Albumin 4.4 g/dL (3.5-5.0); Calcium 9.3 mg/dL (8.4-10.2); Magnesium 2.3 mg/dL (1.6-2.3); Potassium 4.2 mmol/L (3.5-5.1); Total Bilirubin 0.5 mg/dL (0.2-1.3); Total Protein 7.3 g/dL (6.3-8.2)
--- NOTE | 2018-09-26 13:06 | ED ---
SOB HPI - General Chief Complaint: Shortness of Breath Stated Complaint: Cough Time Seen by Provider: 09/26/18 12:01 Source: patient, RN notes reviewed Mode of arrival: ambulatory Limitations: physical limitation - History of Present Illness Initial Comments: This is a 82-year-old male history of multiple medical problems including atrial fibrillation bypass surgery and a "[place] cough" who presents with complaints of shortness of breath the severe heavy dry cough orthopnea and exertional dyspnea. This is been going on for several days. He denies any overt chest pain. He denies any fevers chills or sweats. He states he gets much worse when he is in supine position versus less upright. He does note that he is on 100% disability from exposure to agent orange in [place]. Other complaints at this time MD Complaint: shortness of breath, cough - Related Data Home Medications Medication Instructions Recorded Confirmed Ezetimibe [Zetia] 10 mg PO HS 08/14/13 09/26/18 Pregabalin [Lyrica] 75 mg PO BID 08/14/13 09/26/18 Tamsulosin [Flomax] 0.8 mg PO HS 08/14/13 09/26/18 ALPRAZolam [Xanax] 0.5 mg PO Q8H PRN 08/11/15 09/26/18 Colchicine 0.6 mg PO DAILY PRN 01/14/16 09/26/18 Pravastatin Sodium [Pravachol] 40 mg PO HS 01/14/16 09/26/18 Metoprolol Tartrate [Lopressor] 25 mg PO Q12H 02/10/16 09/26/18 Nitroglycerin Sl Tabs [Nitrostat] 0.4 mg SUBLINGUAL Q5M PRN 02/10/16 09/26/18 Warfarin [Coumadin] 5 mg PO MOTUWETHFRSA 03/26/16 09/26/18 Aspirin 81 mg PO DAILY 04/09/16 09/26/18 Warfarin [Coumadin] 2.5 mg PO SALDIVAR 04/09/16 09/26/18 Cyanocobalamin [Vitamin B-12] 500 mcg PO DAILY 07/08/16 09/26/18 Multivit-Min/FA/Lycopen/Lutein 1 tab PO DAILY 07/08/16 09/26/18 [Centrum Silver Tablet] Cholecalciferol [Vitamin D3 (25 1,000 unit PO DAILY 09/26/18 09/26/18 Mcg = 1000 Iu)] Levothyroxine Sodium [Levoxyl] 75 mcg PO DAILY 09/26/18 09/26/18 amLODIPine [Norvasc] 5 mg PO HS 09/26/18 09/26/18 Previous Rx's Medication Instructions Recorded Benzonatate [Tessalon Perles] 100 mg PO TID PRN #15 capsule 09/26/18 Ipratropium/Albuterol Sulfate 2 puff INHALATION QID #1 inhaler 09/26/18 [Combivent Respimat Inhaler] predniSONE 20 mg PO BID #10 tab 09/26/18 Allergies Allergy/AdvReac Type Severity Reaction Status Date / Time No Known Allergies Allergy Verified 09/26/18 12:31 Review of Systems ROS Statement: Those systems with pertinent positive or pertinent negative responses have been documented in the HPI. ROS Other: All systems not noted in ROS Statement are negative. Past Medical History Past Medical History: Atrial Fibrillation, Atrial Flutter, Coronary Artery Disease (CAD), Chest Pain / Angina, Hyperlipidemia, Hypertension, Myocardial Infarction (ME), Osteoarthritis (OA), Prostate Disorder, Skin Disorder, Thyroid Disorder Additional Past Medical History / Comment(s): Diverticulitis, HX PERFORATION. Gout. Eczema. BPH. Chronic Back Pain D/T PINCHED NERVE, USES CANE FOR DISTANCES. HX VERTIGO. FOOD GETTING STUCK IN THROAT - REMOVAL X3. Last Myocardial Infarction Date:: 08/2015 History of Any Multi-Drug Resistant Organisms: None Reported Past Surgical History: Cardiac Ablation, Coronary Bypass/CABG, Heart Catheterization With Stent, Tonsillectomy Additional Past Surgical History / Comment(s): 02/11/16 Cardiac stent to SVG to diagonal; TOTAL 3 NOW. CABG X3 0n 07/11/15. CYST REMOVED FROM HEART 195; LEFT TESTICLE REMOVED; МАРИНА CATARACTS. EGD W/ REMOVAL FB X3. Past Anesthesia/Blood Transfusion Reactions: No Reported Reaction Additional Past Anesthesia/Blood Transfusion Reaction / Comment(s): no family hx Date of Last Stent Placement:: 02/11/16 Past Psychological History: PTSD Smoking Status: Former smoker Past Alcohol Use History: None Reported Past Drug Use History: None Reported - Past Family History Mother Family Medical History: Unable to Obtain Additional Family Medical History / Comment(s): Mother had a pacemaker. Father History Unknown: Yes Family Medical History: Myocardial Infarction (ME) General Exam - General Exam Comments Initial Comments: This is a well-developed well-nourished awake alert oriented 3 male Limitations: physical limitation General appearance: alert, anxious, in distress Head exam: Present: atraumatic, normocephalic, normal inspection Eye exam: Present: normal appearance, PERRL, EOMI. Absent: scleral icterus, conjunctival injection, periorbital swelling ENT exam: Present: normal exam, mucous membranes moist Neck exam: Present: normal inspection. Absent: tenderness, meningismus, lymphadenopathy Respiratory exam: Present: wheezes, decreased breath sounds, other (Severe persistent cough noted). Absent: respiratory distress, rales, rhonchi, stridor Cardiovascular Exam: Present: bradycardia, normal heart sounds. Absent: systolic murmur, diastolic murmur, rubs, gallop, clicks GI/Abdominal exam: Present: soft, normal bowel sounds. Absent: distended, tenderness, guarding, rebound, rigid Extremities exam: Present: normal inspection, full ROM, normal capillary refill. Absent: tenderness, pedal edema, joint swelling, calf tenderness Back exam: Present: normal inspection Neurological exam: Present: alert, oriented X3, CN II-XII intact Psychiatric exam: Present: normal affect, normal mood Skin exam: Present: warm, dry, intact, normal color. Absent: rash Course Vital Signs 09/26/18 09/26/18 09/26/18 11:53 12:36 12:48 Temperature 99.0 F Pulse Rate 58 L 60 68 Respiratory 18 Rate Blood Pressure 120/64 O2 Sat by Pulse 97 Oximetry 09/26/18 09/26/18 09/26/18 15:01 15:10 15:11 Temperature Pulse Rate 61 64 69 Respiratory 18 Rate Blood Pressure 130/65 O2 Sat by Pulse 98 Oximetry Medical Decision Making - Medical Decision Making Patient was reevaluated by me and several occasions he was feeling improved after the second round of nebulizer treatment and IV steroids. We did ambulate him and put in different positions it did exacerbate his symptoms earlier he's got no further exacerbation does feel much improved after long discussion he decided he would like to go home he'll try him on medications he is instructed to follow-up with his doctor and return if there is any change or any problems. The presentation is consistent with a bronchospasm. - Lab Data Result diagrams: 09/26/18 12:35 09/26/18 12:35 Lab Results 09/26/18 09/26/18 09/26/18 Range/Units 12:35 12:35 12:35 WBC 6.5 (3.8-10.6) k/uL RBC 5.13 (4.30-5.90) m/uL Hgb 15.9 (13.0-17.5) gm/dL Hct 49.6 (39.0-53.0) % MCV 96.7 (80.0-100.0) fL MCH 30.9 (25.0-35.0) pg MCHC 32.0 (31.0-37.0) g/dL RDW 15.0 (11.5-15.5) % Plt Count 154 (150-450) k/uL Neutrophils % 71 % Lymphocytes % 12 % Monocytes % 10 % Eosinophils % 2 % Basophils % 1 % Neutrophils # 4.6 (1.3-7.7) k/uL Lymphocytes # 0.8 L (1.0-4.8) k/uL Monocytes # 0.7 (0-1.0) k/uL Eosinophils # 0.2 (0-0.7) k/uL Basophils # 0.0 (0-0.2) k/uL PT (9.0-12.0) sec INR (<1.2) APTT (22.0-30.0) sec Sodium 142 (137-145) mmol/L Potassium 4.2 (3.5-5.1) mmol/L Chloride 106 (98-107) mmol/L Carbon Dioxide 26 (22-30) mmol/L Anion Gap 10 mmol/L BUN 19 (9-20) mg/dL Creatinine 1.37 H (0.66-1.25) mg/dL Est GFR (CKD-EPI)AfAm 56 (>60 ml/min/1.73 sqM) Est GFR (CKD-EPI)NonAf 48 (>60 ml/min/1.73 sqM) Glucose 100 H (74-99) mg/dL Calcium 9.3 (8.4-10.2) mg/dL Magnesium 2.3 (1.6-2.3) mg/dL Total Bilirubin 0.5 (0.2-1.3) mg/dL AST 28 (17-59) U/L ALT 21 (21-72) U/L Alkaline Phosphatase 79 (38-126) U/L Creatine Kinase 278 H (55-170) U/L Troponin I (0.000-0.034) ng/mL NT-Pro-B Natriuret Pep 259 pg/mL Total Protein 7.3 (6.3-8.2) g/dL Albumin 4.4 (3.5-5.0) g/dL 09/26/18 09/26/18 Range/Units 12:35 12:35 WBC (3.8-10.6) k/uL RBC (4.30-5.90) m/uL Hgb (13.0-17.5) gm/dL Hct (39.0-53.0) % MCV (80.0-100.0) fL MCH (25.0-35.0) pg MCHC (31.0-37.0) g/dL RDW (11.5-15.5) % Plt Count (150-450) k/uL Neutrophils % % Lymphocytes % % Monocytes % % Eosinophils % % Basophils % % Neutrophils # (1.3-7.7) k/uL Lymphocytes # (1.0-4.8) k/uL Monocytes # (0-1.0) k/uL Eosinophils # (0-0.7) k/uL Basophils # (0-0.2) k/uL PT 17.3 H (9.0-12.0) sec INR 1.7 H (<1.2) APTT 31.3 H (22.0-30.0) sec Sodium (137-145) mmol/L Potassium (3.5-5.1) mmol/L Chloride (98-107) mmol/L Carbon Dioxide (22-30) mmol/L Anion Gap mmol/L BUN (9-20) mg/dL Creatinine (0.66-1.25) mg/dL Est GFR (CKD-EPI)AfAm (>60 ml/min/1.73 sqM) Est GFR (CKD-EPI)NonAf (>60 ml/min/1.73 sqM) Glucose (74-99) mg/dL Calcium (8.4-10.2) mg/dL Magnesium (1.6-2.3) mg/dL Total Bilirubin (0.2-1.3) mg/dL AST (17-59) U/L ALT (21-72) U/L Alkaline Phosphatase (38-126) U/L Creatine Kinase (55-170) U/L Troponin I 0.014 (0.000-0.034) ng/mL NT-Pro-B Natriuret Pep pg/mL Total Protein (6.3-8.2) g/dL Albumin (3.5-5.0) g/dL - EKG Data -: EKG Interpreted by Me (Sinus rhythm a 71 appear interval 198 QRS duration 150 QT since QTC 438/475) - Radiology Data Radiology results: report reviewed (I did review the imaging and reports no acu te findings.), image reviewed Disposition Clinical Impression: Acute bronchospasm Disposition: HOME SELF-CARE Condition: Good Instructions (If sedation given, give patient instructions): Bronchospasm (ED) Prescriptions: Ipratropium/Albuterol Sulfate [Combivent Respimat Inhaler] 2 puff INHALATION QID #1 inhaler predniSONE 20 mg PO BID #10 tab Benzonatate [Tessalon Perles] 100 mg PO TID PRN #15 capsule PRN Reason: Cough Is patient prescribed a controlled substance at d/c from ED?: No Referrals: Dilshad Lopez DO [Primary Care Provider] - 1-2 days
[2018-09-26 13:07] LABS: INR 1.7 (<1.2); Partial Thromboplastin Time 31.3 sec (22.0-30.0); Prothrombin Time 17.3 sec (9.0-12.0)
--- NOTE | 2018-09-26 13:41 | XR ---
EXAMINATION TYPE: XR chest 2V DATE OF EXAM: 09/26/2018 COMPARISON: Chest x-ray 10/24/2016 HISTORY: Difficulty breathing, cough and congestion TECHNIQUE: Frontal and lateral views of the chest are obtained. FINDINGS: Patient is post median sternotomy. Elevation of the right hemidiaphragm, thickening along t he right lower pleural margin laterally are stable findings, there is likely some basilar scarring, p osterior right sixth rib shows postop change. There is no focal air space opacity, pleural effusion, or pneumothorax seen. The cardiac silhouette size is stable, aorta is dense. The osseous structure s are intact. Inferior sternal wire is fractured. IMPRESSION: No acute cardiopulmonary process.
[2018-09-26] MEDS ORDERED: methylPREDNISolone SOD SUCCI 125 MG/2 ML VIAL IV STA (14:31)
[2018-09-26 16:10] VITALS: BP 110/59; PULSE 80; RESP 16; TEMP 98
== END 2018-09-26 16:10 | disposition home or self-care (01) ==
LOC: EC 11:24
DX: J98.01 Acute bronchospasm (principal); I25.119 Atherosclerotic heart disease of native coronary artery with unspecified angina pectoris; I48.91 Unspecified atrial fibrillation; I48.92 Unspecified atrial flutter; I25.2 Old myocardial infarction; I10 Essential (primary) hypertension; E78.5 Hyperlipidemia, unspecified; E07.9 Disorder of thyroid, unspecified; Z79.01 Long term (current) use of anticoagulants; Z79.82 Long term (current) use of aspirin; Z79.890 Hormone replacement therapy; Z79.899 Other long term (current) drug therapy; Z87.891 Personal history of nicotine dependence; Z95.1 Presence of aortocoronary bypass graft; Z95.5 Presence of coronary angioplasty implant and graft
CPT/HCPCS: 99285; 96374; 36415; 94640 ×2; 93005; 83880; 80053; 82550; 83735; 84484; 85025; 85610; 85730; 71046; J2930

== ENCOUNTER 2018-09-29 12:17 | Emergency (ER) | payer MEDICARE, OTHER ==
[2018-09-29] MEDS ORDERED: methylPREDNISolone SOD SUCCI 125 MG/2 ML VIAL IM ONE (12:50)
[2018-09-29] MEDS ORDERED: IPRATROPIUM-ALBUTEROL 3 ML NEB INHALATION STA (12:50)
--- NOTE | 2018-09-29 13:29 | ED ---
General Adult HPI - General Chief complaint: Upper Respiratory Infection Stated complaint: deep cough-revisit Time Seen by Provider: 09/29/18 12:20 Source: patient, RN notes reviewed Mode of arrival: ambulatory Limitations: no limitations - History of Present Illness Initial comments: This is an 82-year-old male presents emergency Department complaining of a cough for the last week. Patient states he came emergency department 3 or 4 days ago and was given some medications but no antibiotics. Patient states the cough continues and is getting worse. Patient states he also is wheezing when he's breathing. Patient states it does make him short of breath when he starts presents himself. Patient denies any chest pain or palpitations. Patient den ies any fever or chills. Patient states he is coughing up some sputum. Patient denies any leg swelling or calf tenderness. Patient states the breathing treatments to help him when he takes them - Related Data Home Medications Medication Instructions Recorded Confirmed Ezetimibe [Zetia] 10 mg PO HS 08/14/13 09/29/18 Pregabalin [Lyrica] 75 mg PO BID 08/14/13 09/29/18 Tamsulosin [Flomax] 0.8 mg PO HS 08/14/13 09/29/18 ALPRAZolam [Xanax] 0.5 mg PO Q8H PRN 08/11/15 09/29/18 Colchicine 0.6 mg PO DAILY PRN 01/14/16 09/29/18 Pravastatin Sodium [Pravachol] 40 mg PO HS 01/14/16 09/29/18 Metoprolol Tartrate [Lopressor] 25 mg PO Q12H 02/10/16 09/29/18 Nitroglycerin Sl Tabs [Nitrostat] 0.4 mg SUBLINGUAL Q5M PRN 02/10/16 09/29/18 Warfarin [Coumadin] 5 mg PO MOTUWETHFRSA 03/26/16 09/29/18 Aspirin 81 mg PO DAILY 04/09/16 09/29/18 Warfarin [Coumadin] 2.5 mg PO SALDIVAR 04/09/16 09/29/18 Cyanocobalamin [Vitamin B-12] 500 mcg PO DAILY 07/08/16 09/29/18 Multivit-Min/FA/Lycopen/Lutein 1 tab PO DAILY 07/08/16 09/29/18 [Centrum Silver Tablet] Cholecalciferol [Vitamin D3 (25 1,000 unit PO DAILY 09/26/18 09/29/18 Mcg = 1000 Iu)] Levothyroxine Sodium [Levoxyl] 75 mcg PO DAILY 09/26/18 09/29/18 amLODIPine [Norvasc] 5 mg PO HS 09/26/18 09/29/18 Previous Rx's Medication Instructions Recorded Azithromycin [Zithromax Tri-Dickson] 500 mg PO DAILY #3 tab 09/29/18 predniSONE 40 mg PO DAILY #8 tab 09/29/18 Allergies Allergy/AdvReac Type Severity Reaction Status Date / Time No Known Allergies Allergy Verified 09/29/18 12:58 Review of Systems ROS Statement: Those systems with pertinent positive or pertinent negative responses have been documented in the HPI. ROS Other: All systems not noted in ROS Statement are negative. Past Medical History Past Medical History: Atrial Fibrillation, Atrial Flutter, Coronary Artery Disease (CAD), Chest Pain / Angina, Hyperlipidemia, Hypertension, Myocardial Infarction ([place]), Osteoarthritis (OA), Prostate Disorder, Skin Disorder, Thyroid Disorder Additional Past Medical History / Comment(s): Diverticulitis, HX PERFORATION. Gout. Eczema. BPH. Chronic Back Pain D/T PINCHED NERVE, USES CANE FOR DISTANCES. HX VERTIGO. FOOD GETTING STUCK IN THROAT - REMOVAL X3. Last Myocardial Infarction Date:: 08/2015 History of Any Multi-Drug Resistant Organisms: None Reported Past Surgical History: Cardiac Ablation, Coronary Bypass/CABG, Heart Catheterization With Stent, Tonsillectomy Additional Past Surgical History / Comment(s): 02/11/16 Cardiac stent to SVG to diagonal; TOTAL 3 NOW. CABG X3 0n 07/11/15. CYST REMOVED FROM HEART 195; LEFT TESTICLE REMOVED; МАРИНА CATARACTS. EGD W/ REMOVAL FB X3. Past Anesthesia/Blood Transfusion Reactions: No Reported Reaction Additional Past Anesthesia/Blood Transfusion Reaction / Comment(s): no family hx Date of Last Stent Placement:: 02/11/16 Past Psychological History: PTSD Smoking Status: Former smoker Past Alcohol Use History: None Reported Past Drug Use History: None Reported - Past Family History Mother Family Medical History: Unable to Obtain Additional Family Medical History / Comment(s): Mother had a pacemaker. Father History Unknown: Yes Family Medical History: Myocardial Infarction (MS) General Exam - General Exam Comments Initial Comments: GENERAL: Patient is well-developed and well-nourished. Patient is nontoxic and well- hydrated and is in mild distress. ENT: Neck is soft and supple. No significant lymphadenopathy is noted. Oropharynx is clear. Moist mucous membranes. Neck has full range of motion without eliciting any pain. EYES: The sclera were anicteric and conjunctiva were pink and moist. Extraocular movements were intact and pupils were equal round and reactive to light. Eyelids were unremarkable. PULMONARY: Patient has expiratory wheezing CARDIOVASCULAR: There is a regular rate and rhythm without any murmurs gallops or rubs. ABDOMEN: Soft and nontender with normal bowel sounds. No palpable organomegaly was noted. There is no palpable pulsatile mass. SKIN: Skin is clear with no lesions or rashes and otherwise unremarkable. NEUROLOGIC: Patient is alert and oriented x3. Cranial nerves II through XII are grossly intact. Motor and sensory are also intact. Normal speech, volume and content. Symmetrical smile. MUSCULOSKELETAL: Normal extremities with adequate strength and full range of motion. No lower extremity swelling or edema. No calf tenderness. LYMPHATICS: No significant lymphadenopathy is noted PSYCHIATRIC: Normal psychiatric evaluation. Limitations: no limitations Course Vital Signs 09/29/18 09/29/18 09/29/18 12:20 12:30 13:11 Temperature 97.5 F L Pulse Rate 60 56 L Respiratory 20 22 Rate Blood Pressure 147/69 O2 Sat by Pulse 94 L Oximetry 09/29/18 09/29/18 09/29/18 13:21 13:28 14:45 Temperature Pulse Rate 56 L 20 L 53 L Respiratory 20 Rate Blood Pressure 145/74 O2 Sat by Pulse 94 L Oximetry Medical Decision Making - Medical Decision Making Chest x-ray shows no acute abnormality. Patient states after he got a breathing treatment and he felt considerably better. I gave the patient shot of Rocephin and we'll send the patient home on Zithromax. Disposition Clinical Impression: Bronchitis with bronchospasm Disposition: HOME SELF-CARE Condition: Good Instructions (If sedation given, give patient instructions): Acute Bronchitis (ED) Prescriptions: predniSONE 40 mg PO DAILY #8 tab Azithromycin [Zithromax Tri-Dickson] 500 mg PO DAILY #3 tab Is patient prescribed a controlled substance at d/c from ED?: No Referrals: Dilshad Lopez DO [Primary Care Provider] - 1-2 days Time of Disposition: 15:02
--- NOTE | 2018-09-29 14:02 | XR ---
EXAMINATION TYPE: XR chest 2V DATE OF EXAM: 09/29/2018 COMPARISON: Prior chest x-ray 09/26/2018 HISTORY: Difficulty breathing TECHNIQUE: Frontal and lateral views of the chest are obtained. FINDINGS: Patient is post median sternotomy, heart is enlarged. Aorta is dense. Persistent elevation of right hemidiaphragm with blunting the right costophrenic angle. Postop changes are noted to the p osterior right sixth rib as on prior. No pneumothorax or evident effusion. Thoracic spondylosis is st able. Prominent lung volumes suggest underlying COPD. IMPRESSION: No acute cardiopulmonary process. Stable exam.
[2018-09-29 14:47] VITALS: BP 145/74; PULSE 53; RESP 20
[2018-09-29] MEDS ORDERED: cefTRIAXone IN SWFI 1,000 MG/10 ML SYRINGE IVP STA (14:57)
[2018-09-29] MEDS ORDERED: cefTRIAXone 1,000 MG VIAL (IM USE) IM STA (15:00)
[2018-09-29 15:21] VITALS: TEMP 97.9
== END 2018-09-29 15:20 | disposition home or self-care (01) ==
LOC: EC 12:17
DX: J98.01 Acute bronchospasm (principal); J40 Bronchitis, not specified as acute or chronic; I48.91 Unspecified atrial fibrillation; I48.92 Unspecified atrial flutter; I25.119 Atherosclerotic heart disease of native coronary artery with unspecified angina pectoris; E78.5 Hyperlipidemia, unspecified; I10 Essential (primary) hypertension; I25.2 Old myocardial infarction; M19.90 Unspecified osteoarthritis, unspecified site; N40.0 Benign prostatic hyperplasia without lower urinary tract symptoms; M10.9 Gout, unspecified; E07.9 Disorder of thyroid, unspecified; F43.10 Post-traumatic stress disorder, unspecified; Z87.891 Personal history of nicotine dependence; Z79.82 Long term (current) use of aspirin; Z79.01 Long term (current) use of anticoagulants; Z79.890 Hormone replacement therapy; Z79.899 Other long term (current) drug therapy; Z95.5 Presence of coronary angioplasty implant and graft; Z95.1 Presence of aortocoronary bypass graft
CPT/HCPCS: 94640; 71046; 99283; 96372 ×2; J2930; J0696

== ENCOUNTER 2018-09-30 08:10 | Inpatient (IN) | payer MEDICARE, OTHER ==
--- NOTE | 2018-09-30 08:26 | ED ---
Abdominal Pain HPI - General Chief Complaint: Abdominal Pain Stated Complaint: flank pain Time Seen by Provider: 09/30/18 08:22 Source: patient Mode of arrival: wheelchair Limitations: no limitations - History of Present Illness Initial Comments: 82-year-old male presenting for lower abdominal pain. Patient states that he has lower abdominal pain and pressure that times is sharp. He states is midline. Patient states this began after attempting to urinate this morning. He states he is only able to urinate a small amount. Patient states he does carrera ve an enlarged prostate. Patient states the last time that this occurred about 4 years prior where he felt similar characteristic and pain in the location he had a urinary tract infection. Patient denies any upper abdominal pain he denies any back pain. He has a nausea vomiting diarrhea. Patient denies any history of fever. Remaining review of systems negative. Upon arrival patient appears uncomfortable but well nontoxic. Pt BP elevated, HR WNL. - Related Data Home Medications Medication Instructions Recorded Confirmed Ezetimibe [Zetia] 10 mg PO HS 08/14/13 09/30/18 Tamsulosin [Flomax] 0.8 mg PO HS 08/14/13 09/30/18 ALPRAZolam [Xanax] 0.5 mg PO Q8H PRN 08/11/15 09/30/18 Colchicine 0.6 mg PO DAILY PRN 01/14/16 09/30/18 Pravastatin Sodium [Pravachol] 40 mg PO HS 01/14/16 09/30/18 Metoprolol Tartrate [Lopressor] 25 mg PO Q12H 02/10/16 09/30/18 Nitroglycerin Sl Tabs [Nitrostat] 0.4 mg SUBLINGUAL Q5M PRN 02/10/16 09/30/18 Warfarin [Coumadin] 5 mg PO MOTUWETHFRSA 03/26/16 09/30/18 Aspirin 81 mg PO DAILY 04/09/16 09/30/18 Warfarin [Coumadin] 2.5 mg PO SALDIVAR 04/09/16 09/30/18 Cyanocobalamin [Vitamin B-12] 500 mcg PO DAILY 07/08/16 09/30/18 Multivit-Min/FA/Lycopen/Lutein 1 tab PO DAILY 07/08/16 09/30/18 [Centrum Silver Tablet] Cholecalciferol [Vitamin D3 (25 1,000 unit PO DAILY 09/26/18 09/30/18 Mcg = 1000 Iu)] Levothyroxine Sodium [Levoxyl] 75 mcg PO DAILY 09/26/18 09/30/18 amLODIPine [Norvasc] 5 mg PO HS 09/26/18 09/30/18 Benzonatate [Tessalon Perles] 100 mg PO TID PRN 09/30/18 09/30/18 Ipratropium/Albuterol Sulfate 1 puff INHALATION RT-QID 09/30/18 09/30/18 [Combivent Respimat Inhaler] Pregabalin [Lyrica] 75 mg PO BID 09/30/18 09/30/18 predniSONE 20 mg PO BID 09/30/18 09/30/18 Allergies Allergy/AdvReac Type Severity Reaction Status Date / Time No Known Allergies Allergy Verified 09/30/18 08:46 Review of Systems ROS Statement: Those systems with pertinent positive or pertinent negative responses have been documented in the HPI. ROS Other: All systems not noted in ROS Statement are negative. Past Medical History Past Medical History: Atrial Fibrillation, Atrial Flutter, Coronary Artery Disease (CAD), Chest Pain / Angina, Hyperlipidemia, Hypertension, Myocardial Infarction ([place]), Osteoarthritis (OA), Prostate Disorder, Skin Disorder, Thyroid Disorder Additional Past Medical History / Comment(s): Diverticulitis, HX PERFORATION. Gout. Eczema. BPH. Chronic Back Pain D/T PINCHED NERVE, USES CANE FOR DISTANCES. HX VERTIGO. FOOD GETTING STUCK IN THROAT - REMOVAL X3. Last Myocardial Infarction Date:: 08/2015 History of Any Multi-Drug Resistant Organisms: None Reported Past Surgical History: Cardiac Ablation, Coronary Bypass/CABG, Heart Catheterization With Stent, Tonsillectomy Additional Past Surgical History / Comment(s): 02/11/16 Cardiac stent to SVG to diagonal; TOTAL 3 NOW. CABG X3 0n 07/11/15. CYST REMOVED FROM HEART 195; LEFT TESTICLE REMOVED; МАРИНА CATARACTS. EGD W/ REMOVAL FB X3. Past Anesthesia/Blood Transfusion Reactions: No Reported Reaction Additional Past Anesthesia/Blood Transfusion Reaction / Comment(s): no family hx Date of Last Stent Placement:: 02/11/16 Past Psychological History: PTSD Smoking Status: Former smoker Past Alcohol Use History: None Reported Past Drug Use History: None Reported - Past Family History Mother Family Medical History: Unable to Obtain Additional Family Medical History / Comment(s): Mother had a pacemaker. Father History Unknown: Yes Family Medical History: Myocardial Infarction ([place]) General Exam - General Exam Comments Initial Comments: General: The patient is awake and alert, in no distress, and does not appear acutely ill. Eye: +3 mm pupils are equal, round and reactive to light, extra-ocular movements are intact. No nystagmus. There is normal conjunctiva bilaterally. No signs of icterus. Ears, nose, mouth and throat: There are moist mucous membranes and no oral lesions. Neck: The neck is supple, there is no tenderness or JVD. Cardiovascular: There is a regular rate and rhythm. No murmur, rub or gallop is appreciated. Respiratory: Lungs are clear to auscultation, respirations are non-labored, breath sounds are equal. No wheezes, stridor, rales, or rhonchi. Gastrointestinal: Soft, non-distended, abdomen tender to palpation over superior bladder margin, slightly distended abdomen without masses or organomegaly noted. There is no rebound or guarding present. No CVA tenderness. Bowel sounds are unremarkable. Normal examination of the penis, no erythema, swelling noted of scrotum. Musculoskeletal: Normal ROM, no tenderness. Strength 5/5. Sensation intact. Radial pulses equal bilaterally 2+. Neurological: A&O x 3. CN II-XII intact, There are no obvious motor or sensory deficits. Coordination appears grossly intact. Speech is normal. Skin: Skin is warm and dry and no rashes or lesions are noted. Psychiatric: Cooperative, appropriate mood & affect, normal judgment. Limitations: no limitations Course Vital Signs 09/30/18 09/30/18 09/30/18 08:17 10:59 14:00 Temperature 97.6 F Pulse Rate 73 74 82 Respiratory 18 18 18 Rate Blood Pressure 168/94 153/93 139/84 O2 Sat by Pulse 96 97 92 L Oximetry Medical Decision Making - Medical Decision Making 82-year-old male presenting for abdominal pain pressure he feels he may have UTI. Urinalysis shows few white blood cells no overt signs of infection negative nitrates and leukocyte esterase. No evidence of urinary retention. Small retrieved on urine catheterization. Patient has one testicle (left removed 30 years prior), normal exam. Patient had exquisite pain on examination particularly the right lower quadrant. CT of the abdomen revealed findings consistent with right lower abdomen small bowel obstruction. She is placed nothing by mouth. Given IV hydration. Patient will be admitted for SBO with surgery on consult. Dr. Colon accepted admission no further orders at this time. Case was discussed with Dr. Jimenez prior to patient admission who was agreeable with plan and admission--he spoke with admitting provider after we reviewed laboratory and images studies together. - Lab Data Result diagrams: 09/30/18 08:51 09/30/18 08:51 Lab Results 09/30/18 09/30/18 09/30/18 Range/Units 08:43 08:51 08:51 WBC 10.4 (3.8-10.6) k/uL RBC 5.27 (4.30-5.90) m/uL Hgb 16.5 (13.0-17.5) gm/dL Hct 50.0 (39.0-53.0) % MCV 94.9 (80.0-100.0) fL MCH 31.4 (25.0-35.0) pg MCHC 33.1 (31.0-37.0) g/dL RDW 14.3 (11.5-15.5) % Plt Count 167 (150-450) k/uL Neutrophils % 85 % Lymphocytes % 8 % Monocytes % 5 % Eosinophils % 0 % Basophils % 0 % Neutrophils # 8.8 H (1.3-7.7) k/uL Lymphocytes # 0.9 L (1.0-4.8) k/uL Monocytes # 0.6 (0-1.0) k/uL Eosinophils # 0.0 (0-0.7) k/uL Basophils # 0.0 (0-0.2) k/uL Sodium 140 (137-145) mmol/L Potassium 4.6 (3.5-5.1) mmol/L Chloride 106 (98-107) mmol/L Carbon Dioxide 22 (22-30) mmol/L Anion Gap 12 mmol/L BUN 26 H (9-20) mg/dL Creatinine 1.12 (0.66-1.25) mg/dL Est GFR (CKD-EPI)AfAm 71 (>60 ml/min/1.73 sqM) Est GFR (CKD-EPI)NonAf 62 (>60 ml/min/1.73 sqM) Glucose 134 H (74-99) mg/dL Calcium 9.2 (8.4-10.2) mg/dL Total Bilirubin 0.6 (0.2-1.3) mg/dL AST 43 (17-59) U/L ALT 47 (21-72) U/L Alkaline Phosphatase 71 (38-126) U/L Total Protein 7.4 (6.3-8.2) g/dL Albumin 4.3 (3.5-5.0) g/dL Urine Color Yellow Urine Appearance Clear (Clear) Urine pH 6.0 (5.0-8.0) Ur Specific [place] 1.020 (1.001-1.035) Urine Protein 1+ H (Negative) Urine Glucose (UA) Negative (Negative) Urine Ketones Negative (Negative) Urine Blood Small H (Negative) Urine Nitrite Negative (Negative) Urine Bilirubin Negative (Negative) Urine Urobilinogen <2.0 (<2.0) mg/dL Ur Leukocyte Esterase Negative (Negative) Urine RBC 2 (0-5) /hpf Urine WBC 2 (0-5) /hpf Urine WBC Clumps Rare H (None) /hpf Ur Squamous Epith Cells <1 (0-4) /hpf Urine Mucus Rare H (None) /hpf Disposition Clinical Impression: Small bowel obstruction, Abdominal pain Disposition: ADMITTED IP TO THIS [facility] Condition: Stable Is patient prescribed a controlled substance at d/c from ED?: No Time of Disposition: 12:20 Decision to Admit Reason: Admit from EC Decision Date: 09/30/18 Decision Time: 12:20
[2018-09-30] MEDS ORDERED: MORPHINE SULFATE 4 MG/ML SYRINGE IVP STA ×2 (08:47→10:49)
[2018-09-30 08:52] LABS: Appearance,Urine Clear (Clear); Bilirubin,Urine Negative (Negative); Blood,Urine Small (Negative); Color,Urine Yellow; Glucose,Urine (UA) Negative (Negative); Ketones,Urine Negative (Negative); Leukocyte Esterase,Urine Negative (Negative); Mucus,Urine Rare /hpf; Nitrite,Urine Negative (Negative); Protein,Urine 1+ (Negative); RBC,Urine 2 /hpf (0-5); Squamous Epithelial Cell,Urine <1 /hpf (0-4); Urobilinogen,Urine <2.0 mg/dL (<2.0)
[2018-09-30 09:05] LABS: Basophils % (A) 0 %; Eosinophils % (A) 0 %; HGB 16.5 gm/dL (13.0-17.5); Lymphocytes # (A) 0.9 k/uL (1.0-4.8); Lymphocytes % (A) 8 %; MCH 31.4 pg (25.0-35.0); MCHC 33.1 g/dL (31.0-37.0); MCV 94.9 fL (80.0-100.0); Mean Platelet Volume 7.4; Monocytes # (A) 0.6 k/uL (0-1.0); Monocytes % (A) 5 %; Neutrophils # (A) 8.8 k/uL (1.3-7.7); Neutrophils % (A) 85 %; Platelet Count 167 k/uL (150-450); RBC 5.27 m/uL (4.30-5.90); RDW 14.3 % (11.5-15.5); WBC 10.4 k/uL (3.8-10.6)
[2018-09-30 09:20] LABS: Albumin 4.3 g/dL (3.5-5.0); Calcium 9.2 mg/dL (8.4-10.2); Total Bilirubin 0.6 mg/dL (0.2-1.3); Total Protein 7.4 g/dL (6.3-8.2)
[2018-09-30 09:24] LABS: Potassium 4.6 mmol/L (3.5-5.1)
--- NOTE | 2018-09-30 11:21 | CT ---
EXAMINATION TYPE: CT abdomen pelvis w con DATE OF EXAM: 09/30/2018 REFERENCE: NONE HISTORY: lower abdominal pain HISTORY: Lower abd pain, bloating, difficult urination REFERENCE: NONE CT DLP: 1840.2 mGy Automated exposure control for dose reduction was used. TECHNIQUE: Helical acquisition through the abdomen and pelvis was obtained following the oral ingesti on of without Oral Contrast and following intravenous administration of 100 mL of Isovue 300. The link a was reformatted in axial, coronal and sagittal projections. FINDINGS: There has been a midline sternotomy. There is minimal atelectasis at the lung bases. There is no pleural or pericardial fluid. The heart i s enlarged. There is vascular calcification patient including the coronary arteries. There is a small hiatal hernia. There is a partial eventration of the right hemidiaphragm. The liver, spleen and gallbladder are normal. Both adrenal glands are normal. There is a stable, 3 cm cyst in the anterior aspect of the lower pole of the right kidney. The left k idney is unremarkable. The pancreas is normal. There is no significant retroperitoneal, iliac or inguinal adenopathy. The bladder is unremarkable. The prostate gland is enlarged. There is diverticular change involving the left side of the colon without radiographic evidence of di verticulitis. There are several dilated loops of small bowel in the lower abdomen. The transition point appears to be in the right lower quadrant on image 67. There is no free fluid and no free air. There is a tiny. The umbilical hernia containing fat only with a mouth that is not clearly measurable . There is hypertrophic spondylosis as well as facet arthropathy in the lumbar spine. There is degenera tive disc disease with vacuum phenomena present at L3-4, L4-5 and L5-S1. IMPRESSION: 1. MILDLY DILATED PROXIMAL LOOPS OF SMALL BOWEL WITH A TRANSITION POINT IN THE RIGHT LOWER QUADRANT. 2. SMALL HIATAL HERNIA. 3. MILD CARDIOMEGALY. 4. DIFFUSE ATHEROMATOUS CALCIFICATION OF THE ARTERIAL TREE INCLUDING THE CORONARY ARTERIES. 5. STABLE, 3 CM CYST IN THE LOWER POLE OF THE RIGHT KIDNEY. 6. DIVERTICULAR CHANGE INVOLVING THE LEFT SIDE OF THE COLON WITHOUT RADIOGRAPHIC EVIDENCE OF DIVERTIC ULITIS. 7. SMALL UMBILICAL HERNIA CONTAINING FAT ONLY. 8. DEGENERATIVE CHANGES WITHIN THE SPINE.
[2018-09-30] MEDS ORDERED: HYDROmorphone 1 MG/ML 1 ML SYRINGE IVP STA (11:24)
[2018-09-30] MEDS ORDERED: NALOXONE 0.4 MG/ML 1 ML VIAL IV PRN (12:17)
[2018-09-30] MEDS: SODIUM CHLORIDE 0.9% 1,000 ML IV SCH ×2 (14:00→21:42)
[2018-09-30] MEDS: HYDROmorphone 0.5 MG/0.5 ML SYRINGE IVP PRN ×2 (14:10→16:22)
[2018-09-30] MEDS ORDERED: HYDROmorphone 1 MG/ML 1 ML SYRINGE IVP PRN ×2 (16:57→19:07)
[2018-09-30] MEDS ORDERED: HYDROmorphone 0.5 MG/0.5 ML SYRINGE IVP STA (16:57)
[2018-09-30] MEDS ORDERED: LORazepam 2 MG/ML INJ IV PRN (19:07)
[2018-09-30] MEDS: ACETAMINOPHEN IV (For NPO) 1,000 MG in EMPTY BAG 1 BAG IVPB PRN (22:12)
[2018-09-30] MEDS ORDERED: SODIUM CHLORIDE 0.9% 500 ML 500 ML IV ONE (22:53)
[2018-09-30] MEDS: IPRATROPIUM-ALBUTEROL 3 ML NEB INHALATION PRN (23:02)
--- NOTE | 2018-09-30 23:57 | XR ---
EXAM: XR Chest, 1 View CLINICAL HISTORY: ITS.REASON XR Reason: possible overload of fluid TECHNIQUE: Frontal view of the chest. COMPARISON: 09/29/18 IMPRESSION: Cardiomegaly. NG tube side port is seen in the mid to distal stomach. Bibasilar atelectasis versus aspiration. No significant pulmonary edema or effusion.
[2018-10-01 00:44] LABS: Glucose,Whole Blood 124 mg/dL (75-99)
[2018-10-01] MEDS: NOREPINEPHRINE 4 MG in SODIUM CHLORIDE 0.9% 250 ML IV SCH ×3 (01:01→18:27)
--- NOTE | 2018-10-01 01:14 | XR ---
EXAM: XR Abdomen, 3 Views CLINICAL HISTORY: ITS.REASON XR Reason: acute abdomen TECHNIQUE: Frontal view of the abdomen/pelvis with upright view of the abdomen. COMPARISON: No relevant prior studies available. IMPRESSION: NG tube tip terminates in the mid to distal stomach. No bowel obstruction. No free air. Copious amounts of stool in the colon and rectum.
[2018-10-01] MEDS ORDERED: TERBUTALINE 1 MG/ML VIAL SQ ONE (01:51)
[2018-10-01] MEDS: PIPERACILLIN-TAZOBACTAM 3.375 GM in SODIUM CHLORIDE 0.9% 100 ML IVPB SCH ×3 (02:24→21:34)
[2018-10-01 05:17] LABS: HGB 16.1 gm/dL (13.0-17.5); MCHC 31.5 g/dL (31.0-37.0); MCV 98.6 fL (80.0-100.0); Mean Platelet Volume 7.7; Platelet Count 209 k/uL (150-450); RBC 5.18 m/uL (4.30-5.90); RDW 14.7 % (11.5-15.5); WBC 18.6 k/uL (3.8-10.6)
[2018-10-01 05:23] LABS: Calcium 8.4 mg/dL (8.4-10.2); Potassium 3.8 mmol/L (3.5-5.1)
[2018-10-01 05:38] LABS: Band Neutrophils % 26 %; Lymphocytes # (M) 0.93 k/uL (1.0-4.8); Monocytes # (M) 1.67 k/uL (0-1.0); Neutrophils % (M) 60 %; Nucleated Red Blood Cells 0 /100 WBC (0-0); Total Cells Counted 100
[2018-10-01] MEDS ORDERED: FUROSEMIDE 10 MG/ML 4 ML VIAL IV STA (06:17)
[2018-10-01] MEDS: ACETAMINOPHEN IV (For NPO) 1,000 MG in EMPTY BAG 1 BAG IVPB PRN (06:28)
--- NOTE | 2018-10-01 06:41 | XR ---
EXAMINATION TYPE: XR chest 1V DATE OF EXAM: 10/01/2018 HISTORY: shortness of breath. REFERENCE: Previous study dated 09/30/2018. FINDINGS: There has been a midline sternotomy. An NG tube is in place and its tip is within the stoma ch. There is bibasilar airspace disease. There are small, bilateral effusions. The heart is enlarged. IMPRESSION: 1. CONTINUING BIBASILAR AIRSPACE DISEASE. 2. CARDIOMEGALY. 3. I SUSPECT SMALL, BILATERAL EFFUSIONS.
[2018-10-01] MEDS: SODIUM CHLORIDE 0.9% 1,000 ML IV SCH ×5 (06:48→21:35)
[2018-10-01 08:03] LABS: ABG Base Excess -6.8 mmol/L; ABG HCO3 19 mmol/L (21-25); ABG PCO2 36 mmHg (35-45); ABG PH 7.34 (7.35-7.45); ABG PO2 83 mmHg (83-108); ABG TCO2 20 mmol/L (19-24); Allen Test Performed? Yes
[2018-10-01] MEDS ORDERED: DILTIAZEM DRIP BOLUS FROM BAG 1 MG SOLN IV ONE (10:09)
[2018-10-01] MEDS ORDERED: ETOMIDATE 2 MG/ML 10 ML VIAL ONE (10:29)
[2018-10-01] MEDS ORDERED: fentaNYL (PF) 50 MCG/ML 2 ML AMP ONE (10:29)
[2018-10-01] MEDS ORDERED: IV FLUID CONTINUATION 1,000 ML IV ONE (10:29)
[2018-10-01] MEDS ORDERED: SUCCINYLCHOLINE CHLORIDE 100 MG/5 ML SYR IV ONE (10:29)
[2018-10-01] MEDS ORDERED: ROCURONIUM BROMIDE 10 MG/ML 10 ML VIAL IV ONE (10:29)
[2018-10-01 10:34] LABS: INR 3.5 (<1.2)
[2018-10-01 10:35] LABS: Partial Thromboplastin Time 34.7 sec (22.0-30.0)
[2018-10-01] MEDS ORDERED: LACTATED RINGERS 1,000 ML IV ONE ×3 (10:55→12:13)
--- NOTE | 2018-10-01 11:43 | CONS ---
CONSULTATION This is an 82-year-old gentleman with a known history of CAD, prior bypass surgery and PCI. He also has history of paroxysmal atrial flutter and fibrillation. He is on Coumadin and beta blockers. This gentleman in 2017 underwent a flutter ablation by Dr. Gandara. Since then, he has been in sinus rhythm most of the time, has been on Coumadin. He came into the hospital mainly with complaints of severe abdominal pain with suspected small bowel obstruction or an ischemic bowel type picture. I was asked to see him because he went into atrial fibrillation with moderate ventricular rate today. At the time of my evaluation, patient is n.p.o. He has been having significant abdominal discomfort that seemed to have started a few 3-4 days ago, progressively gotten worse. He is going for explorative laparotomy with possibility of small-bowel obstruction or ischemic bowel by Dr. Woodward. He has not had any angina. Apparently had a last PT checked 3 days prior to admission and the last dose of Coumadin was on the of this month 48 hours ago. He is in pain, but he is not in any respiratory distress. He is in atrial fibrillation at a rate of about 120 beats per minute. PAST MEDICAL HISTORY: 1. History of CAD with prior bypass surgery and he underwent stenting of a vein graft to the diagonal. His bypass surgery was performed in 2015 apparently with a EM to LAD, vein graft to the obtuse marginal and another vein graft to the diagonal branch. This diagonal branch had a significant stenosis and in February 2016, he underwent stenting of this with a drug-eluting stent. His aortocoronary bypass surgery was performed in July of 2015 at [facility]. At the time of his cardiac cath, the EM graft and the OM graft were patent. Diagonal graft was stented. Subsequently in April underwent atrial flutter ablation. He also has history of paroxysmal atrial fibrillation, has been on Coumadin, hypothyroidism and hyperlipidemia and benign prostatic hypertrophy and hypertension. On examination, his blood pressure is 130/70, pulse rate is about 120, irregular. HEENT unremarkable. Fundus was not examined by me. Neck is supple. There is JVD of 1 cm. No carotid bruit. Heart exam reveals S1, S2 with tachycardia, short systolic murmur. Lungs reveal diminished air entry. Abdomen is tender. Lower extremities reveal diminished pulses. Central nervous system is normal. IMPRESSION: 1. Acute abdomen going for exploratory laparotomy, possible small-bowel obstruction or ischemic bowel. 2. Paroxysmal atrial fibrillation in atrial flutter fibrillation, rate is moderately elevated. 3. History of coronary artery disease with prior bypass surgery and PCI. 4. History of being on Coumadin with the last dose 48 hours ago. RECOMMENDATIONS: I am recommending that we start him on a small dose of IV Cardizem to keep the heart rate in the range of 100 or less. I will also recommend that we obtain a PT, PTT mainly because of the fact patient was on Coumadin and his last dose was 48 hours ago. He remains a high risk for the surgery, but no contraindication. I discussed my thoughts in detail with the patient's family and also with Dr. Woodward. Thank you very much for the consult. MARITA / JOSEN: [id number] /
--- NOTE | 2018-10-01 12:32 | P.GSCN ---
History of Present Illness Consult date: 10/01/18 Reason for Consult: Small bowel obstruction History of present illness: This is an 82-year-old male admitted to the medical service. Patient was admitted through the emergency room with complaints of abdominal pain. He is worked up by the emergency room and found have evidence of a small bowel obstruction. The patient had increased abdominal pain overnight. He was transferred to the ICU for further evaluation. The patient has an acute surgical abdomen is morning. He is exquisitely tender. The INR is elevated at 3.5. Past Medical History Past Medical History: Atrial Fibrillation, Atrial Flutter, Coronary Artery Disease (CAD), Chest Pain / Angina, Hyperlipidemia, Hypertension, Myocardial I nfarction ([place]), Osteoarthritis ([place]), Prostate Disorder, Skin Disorder, Thyroid Disorder Additional Past Medical History / Comment(s): Diverticulitis, HX PERFORATION. Gout. Eczema. BPH. Chronic Back Pain D/T PINCHED NERVE, USES CANE FOR DISTANCES. HX VERTIGO. FOOD GETTING STUCK IN THROAT - REMOVAL X3. Last Myocardial Infarction Date:: 08/2015 History of Any Multi-Drug Resistant Organisms: None Reported Past Surgical History: Cardiac Ablation, Coronary Bypass/CABG, Heart Catheterization With Stent, Tonsillectomy Additional Past Surgical History / Comment(s): 02/11/16 Cardiac stent to SVG to diagonal; TOTAL 3 NOW. CABG X3 0n 07/11/15. CYST REMOVED FROM HEART 1958; LEFT TESTICLE REMOVED; МАРИНА CATARACTS. EGD W/ REMOVAL FB X3. Past Anesthesia/Blood Transfusion Reactions: No Reported Reaction Additional Past Anesthesia/Blood Transfusion Reaction / Comm: no family hx Date of Last Stent Placement:: 02/11/16 Past Psychological History: PTSD Smoking Status: Former smoker Past Alcohol Use History: None Reported Past Drug Use History: None Reported - Past Family History Mother Family Medical History: Unable to Obtain Additional Family Medical History / Comment(s): Mother had a pacemaker. Father History Unknown: Yes Family Medical History: Myocardial Infarction ([place]) Medications and Allergies Home Medications Medication Instructions Recorded Confirmed Type Ezetimibe [Zetia] 10 mg PO HS 08/14/13 09/30/18 History Tamsulosin [Flomax] 0.8 mg PO HS 08/14/13 09/30/18 History ALPRAZolam [Xanax] 0.5 mg PO Q8H PRN 08/11/15 09/30/18 History Colchicine 0.6 mg PO DAILY PRN 01/14/16 09/30/18 History Pravastatin Sodium [Pravachol] 40 mg PO HS 01/14/16 09/30/18 History Metoprolol Tartrate [Lopressor] 25 mg PO Q12H 02/10/16 09/30/18 History Nitroglycerin Sl Tabs [Nitrostat] 0.4 mg SUBLINGUAL Q5M PRN 02/10/16 09/30/18 History Warfarin [Coumadin] 5 mg PO MOTUWETHFRSA 03/26/16 09/30/18 History Aspirin 81 mg PO DAILY 04/09/16 09/30/18 History Warfarin [Coumadin] 2.5 mg PO SALDIVAR 04/09/16 09/30/18 History Cyanocobalamin [Vitamin B-12] 500 mcg PO DAILY 07/08/16 09/30/18 History Multivit-Min/FA/Lycopen/Lutein 1 tab PO DAILY 07/08/16 09/30/18 History [Centrum Silver Tablet] Cholecalciferol [Vitamin D3 (25 1,000 unit PO DAILY 09/26/18 09/30/18 History Mcg = 1000 Iu)] Levothyroxine Sodium [Levoxyl] 75 mcg PO DAILY 09/26/18 09/30/18 History amLODIPine [Norvasc] 5 mg PO HS 09/26/18 09/30/18 History Benzonatate [Tessalon Perles] 100 mg PO TID PRN 09/30/18 09/30/18 History Ipratropium/Albuterol Sulfate 1 puff INHALATION RT-QID 09/30/18 09/30/18 History [Combivent Respimat Inhaler] Pregabalin [Lyrica] 75 mg PO BID 09/30/18 09/30/18 History predniSONE 20 mg PO BID 09/30/18 09/30/18 History Allergies Allergy/AdvReac Type Severity Reaction Status Date / Time No Known Allergies Allergy Verified 09/30/18 08:46 Surgical - Exam Vital Signs Temp Pulse Resp BP Pulse Ox 97.6 F 73 18 168/94 96 09/30/18 08:17 09/30/18 08:17 09/30/18 08:17 09/30/18 08:17 09/30/18 08:17 - General severe distress, severe pain - Eyes PERRL - ENT normal pinna - Neck no masses - Respiratory normal expansion - Cardiovascular Rhythm: regularly irregular - Abdomen Abdomen is distended. There is acute surgical pain with rebound tenderness and guarding. Results - Labs 10/01/18 04:57 10/01/18 04:57 Abnormal Lab Results - Last 24 Hours (Table) 10/01/18 10/01/18 10/01/18 Range/Units 00:16 04:57 04:57 WBC 18.6 H (3.8-10.6) k/uL Neutrophils # (Manual) 15.90 H (1.3-7.7) k/uL Lymphocytes # (Manual) 0.93 L (1.0-4.8) k/uL Monocytes # (Manual) 1.67 H (0-1.0) k/uL PT (9.0-12.0) sec INR (<1.2) APTT (22.0-30.0) sec ABG pH (7.35-7.45) ABG HCO3 (21-25) mmol/L Carbon Dioxide 21 L (22-30) mmol/L BUN 37 H (9-20) mg/dL Creatinine 2.94 H (0.66-1.25) mg/dL Glucose 164 H (74-99) mg/dL POC Glucose (mg/dL) 124 H (75-99) mg/dL 10/01/18 10/01/18 Range/Units 07:48 10:19 WBC (3.8-10.6) k/uL Neutrophils # (Manual) (1.3-7.7) k/uL Lymphocytes # (Manual) (1.0-4.8) k/uL Monocytes # (Manual) (0-1.0) k/uL PT 34.0 H (9.0-12.0) sec INR 3.5 H (<1.2) APTT 34.7 H (22.0-30.0) sec ABG pH 7.34 L (7.35-7.45) ABG HCO3 19 L (21-25) mmol/L Carbon Dioxide (22-30) mmol/L BUN (9-20) mg/dL Creatinine (0.66-1.25) mg/dL Glucose (74-99) mg/dL POC Glucose (mg/dL) (75-99) mg/dL Diabetes panel 10/01/18 Range/Units 04:57 Sodium 141 (137-145) mmol/L Potassium 3.8 (3.5-5.1) mmol/L Chloride 105 (98-107) mmol/L Carbon Dioxide 21 L (22-30) mmol/L BUN 37 H (9-20) mg/dL Creatinine 2.94 H (0.66-1.25) mg/dL Glucose 164 H (74-99) mg/dL Calcium 8.4 (8.4-10.2) mg/dL Calcium panel 10/01/18 Range/Units 04:57 Calcium 8.4 (8.4-10.2) mg/dL Pituitary panel 10/01/18 Range/Units 04:57 Sodium 141 (137-145) mmol/L Potassium 3.8 (3.5-5.1) mmol/L Chloride 105 (98-107) mmol/L Carbon Dioxide 21 L (22-30) mmol/L BUN 37 H (9-20) mg/dL Creatinine 2.94 H (0.66-1.25) mg/dL Glucose 164 H (74-99) mg/dL Calcium 8.4 (8.4-10.2) mg/dL Adrenal panel 10/01/18 Range/Units 04:57 Sodium 141 (137-145) mmol/L Potassium 3.8 (3.5-5.1) mmol/L Chloride 105 (98-107) mmol/L Carbon Dioxide 21 L (22-30) mmol/L BUN 37 H (9-20) mg/dL Creatinine 2.94 H (0.66-1.25) mg/dL Glucose 164 H (74-99) mg/dL Calcium 8.4 (8.4-10.2) mg/dL - Imaging CT scan - abdomen: report reviewed (Evidence of small bowel obstruction) Assessment and Plan Assessment: Acute abdomen Peritonitis Sepsis Patient will undergo exposure laparotomy. I discussed the patient's family that he may require bowel resection. The patient is following up at this time. He'll receive FFP. His condition is guarded.
--- NOTE | 2018-10-01 12:38 | P.OP ---
Date of Procedure: 10/01/18 Preoperative Diagnosis: Peritonitis Postoperative Diagnosis: Perforated diverticulitis with feculent and purulent peritonitis Coagulopathy Sepsis Procedure(s) Performed: Exploratory laparotomy Sigmoid colectomy with end colostomy Drainage of abscess Anesthesia: ALVINO Surgeon: Rony Woodward Estimated Blood Loss (ml): 100 Pathology: other (Sigmoid colon, culture) Condition: stable Disposition: PACU Description of Procedure: The patient's placed on the operative table in supine position. He received general anesthesia. His abdomen was prepped and draped in the usual sterile fashion. The area was entered through midline incision. There was feculent and purulent fluid noted in the abdominal cavity. The Bookwalter retractors placed a wound. The abdomen was explored. And in the pelvis appeared to be evidence of perforated diverticulitis with abscess. The abscess was cultured. The abscess cavity was then drained. The left colon was mobilized. And then the sigmoid colon was examined. There is evidence of a perforation. The distal descending colon was transected with the stapler. And then using the Enseal device the mesentery of the bowel was divided. The rectum was then transected with the contour stapler. And this point the abdomen was irrigated with 6 L of normal saline. A SAMY drains placed the pelvis. A suitable spot for the colostomy was found in the left abdomen. The colon was then brought up through the abdominal wall. The fascia was closed with looped #1 PDS suture. The skin was closed to the level of the umbilicus don. The inferior portion of the incision was left open and packed with wet-to-dry Kerlix. The colostomy then m atured with 3-0 Vicryl. Patient received 2 units of FFP at the end of the case. He was sent back to the ICU in stable but critical condition.
[2018-10-01 12:46] LABS: Glucose,Whole Blood 166 mg/dL (75-99)
--- NOTE | 2018-10-01 12:55 | P.CNPUL ---
History of Present Illness Consult date: 10/01/18 Requesting physician: Cosme Colon Reason for consult: other (abdominal pain, possible bowel obstruction.) Chief complaint: abdominal pain History of present illness: this is an 82-year-old white male with history of multiple medical problems including coronary artery disease, previous CABG, and PCI, history of paroxysmal atrial fibrillation, maintained on Coumadin and beta blockers, previous aflutter ablation, patient presented to the hospital with severe abdominal pain of 3 days duration. Initially the patient was admitted to the regular medical floor, however last night patient developed significant worsening of pain, worsening shortness of breath, desaturations, and he required placement on BiPAP.patient had a nasogastric tube in place, and there was evidence of coffee ground ma terial in the nasogastric tube. Overnight the patient was placed on BiPAP, however early this morning he was switched to a nasal cannula at 4 L, and O2 saturation was 93%S1 as a evaluate the patient, I felt the patient has surgical abdomen, he had extreme tenderness of the abdomen, guarding, rigidity, and I have instructed the nurses to notify Dr. Woodward to take the patient to surgery as soon as possible, apparently the patient was scheduled to have surgery around 1 PM, but considering the findings, patient will need earlier surgical intervention. In the meantime I have recommended cardiac clearance, patient was in atrial fibrillation with RVR, had no chest pain, no anginal symptoms, his pro time was elevated, and the patient was supposed to receive fresh frozen plasma prior to surgery. Patient was hemodynamically stable although he was in atrial fibrillation with a rate of 1 20/m. No cough no wheezing no shortness of breath his main complaint was mostly abdominal pain and significant discomfort. ABG earlier on BiPAP showed a pO2 of 83 pCO2 of 36 pH of 7.34. His INR was 3.5,his creatinine jumped up from 1.12 on admission to 2.94. Today.his WBC count is up to 18.6 hemoglobin was noted to be 16.1. Review of Systems Constitutional: Denies any fever or chills, denies any weight loss. Denies any weakness. HEENT: Denies any sore throat, denies any earache, denies any diplopia, denies any dizziness. Pulmonary: no cough no wheezing no shortness of breath no chest pain. Cardiac: Denies any chest pain at present, no palpitations, no diaphoresis. GI: severe abdominal pain. Intermittent episodes of nausea and vomiting, nasogastric tube in place Genitourinary: no hematuria but he does have some difficulty urinating. Endocrine: Denies any heat or cold intolerance, denies any polyuria polyphagia or polydipsia. [place] skeletal: Denies any aches or pains, denies any arthralgia or myalgia. Skin: Denies any rashes. Psychiatric: Denies any symptoms of active depression. Hematologic: Denies any clotting bleeding or bruising.maintained on Coumadin for chronic atrial fibrillation. INR is supratherapeutic Past Medical History Past Medical History: Atrial Fibrillation, Atrial Flutter, Coronary Artery Dise ase (CAD), Chest Pain / Angina, Hyperlipidemia, Hypertension, Myocardial Infarction ([place]), Osteoarthritis (OA), Prostate Disorder, Skin Disorder, Thyroid Disorder Additional Past Medical History / Comment(s): Diverticulitis, HX PERFORATION. Gout. Eczema. BPH. Chronic Back Pain D/T PINCHED NERVE, USES CANE FOR DISTANCES. HX VERTIGO. FOOD GETTING STUCK IN THROAT - REMOVAL X3. Last Myocardial Infarction Date:: 08/2015 History of Any Multi-Drug Resistant Organisms: None Reported Past Surgical History: Cardiac Ablation, Coronary Bypass/CABG, Heart Catheterization With Stent, Tonsillectomy Additional Past Surgical History / Comment(s): 02/11/16 Cardiac stent to SVG to diagonal; TOTAL 3 NOW. CABG X3 0n 07/11/15. CYST REMOVED FROM HEART 1958; LEFT TESTICLE REMOVED; МАРИНА CATARACTS. EGD W/ REMOVAL FB X3. Past Anesthesia/Blood Transfusion Reactions: No Reported Reaction Additional Past Anesthesia/Blood Transfusion Reaction / Comment(s): no family hx Date of Last Stent Placement:: 02/11/16 Past Psychological History: PTSD Smoking Status: Former smoker Past Alcohol Use History: None Reported Past Drug Use History: None Reported - Past Family History Mother Family Medical History: Unable to Obtain Additional Family Medical History / Comment(s): Mother had a pacemaker. Father History Unknown: Yes Family Medical History: Myocardial Infarction ([place]) Medications and Allergies Home Medications Medication Instructions Recorded Confirmed Type Ezetimibe [Zetia] 10 mg PO HS 08/14/13 09/30/18 History Tamsulosin [Flomax] 0.8 mg PO HS 08/14/13 09/30/18 History ALPRAZolam [Xanax] 0.5 mg PO Q8H PRN 08/11/15 09/30/18 History Colchicine 0.6 mg PO DAILY PRN 01/14/16 09/30/18 History Pravastatin Sodium [Pravachol] 40 mg PO HS 01/14/16 09/30/18 History Metoprolol Tartrate [Lopressor] 25 mg PO Q12H 02/10/16 09/30/18 History Nitroglycerin Sl Tabs [Nitrostat] 0.4 mg SUBLINGUAL Q5M PRN 02/10/16 09/30/18 History Warfarin [Coumadin] 5 mg PO MOTUWETHFRSA 03/26/16 09/30/18 History Aspirin 81 mg PO DAILY 04/09/16 09/30/18 History Warfarin [Coumadin] 2.5 mg PO SALDIVAR 04/09/16 09/30/18 History Cyanocobalamin [Vitamin B-12] 500 mcg PO DAILY 07/08/16 09/30/18 History Multivit-Min/FA/Lycopen/Lutein 1 tab PO DAILY 07/08/16 09/30/18 History [Centrum Silver Tablet] Cholecalciferol [Vitamin D3 (25 1,000 unit PO DAILY 09/26/18 09/30/18 History Mcg = 1000 Iu)] Levothyroxine Sodium [Levoxyl] 75 mcg PO DAILY 09/26/18 09/30/18 History amLODIPine [Norvasc] 5 mg PO HS 09/26/18 09/30/18 History Benzonatate [Tessalon Perles] 100 mg PO TID PRN 09/30/18 09/30/18 History Ipratropium/Albuterol Sulfate 1 puff INHALATION RT-QID 09/30/18 09/30/18 History [Combivent Respimat Inhaler] Pregabalin [Lyrica] 75 mg PO BID 09/30/18 09/30/18 History predniSONE 20 mg PO BID 09/30/18 09/30/18 History Allergies Allergy/AdvReac Type Severity Reaction Status Date / Time No Known Allergies Allergy Verified 09/30/18 08:46 Physical Exam Vitals: Vital Signs Temp Pulse Pulse Resp BP BP Pulse Ox 10/01/18 10:15 115 H 28 H 139/77 92 L 10/01/18 10:00 112 H 21 117/66 91 L 10/01/18 09:45 107 H 25 H 91/70 91 L 10/01/18 09:30 106 H 16 93/58 93 L 10/01/18 09:15 109 H 14 87/50 92 L 10/01/18 09:00 112 H 36 H 143/76 92 L 10/01/18 08:45 105 H 22 136/66 90 L 10/01/18 08:30 106 H 24 109/63 91 L 10/01/18 08:15 110 H 25 H 116/65 93 L 10/01/18 08:00 97.7 F 109 H 23 100/58 94 L 10/01/18 07:45 108 H 112 H 24 83/52 92 L 10/01/18 07:30 106 H 16 107/60 92 L 10/01/18 07:15 113 H 20 121/93 92 L 10/01/18 07:00 117 H 23 121/72 93 L 10/01/18 06:45 118 H 24 135/91 96 10/01/18 06:30 120 H 27 H 119/73 91 L 10/01/18 06:15 122 H 27 H 116/70 92 L 10/01/18 06:00 112 H 22 106/75 95 10/01/18 05:45 109 H 18 107/66 94 L 10/01/18 05:30 112 H 20 99/63 94 L 10/01/18 05:15 107 H 20 99/57 93 L 10/01/18 05:00 107 H 21 107/61 92 L 10/01/18 04:45 104 H 17 107/61 92 L 10/01/18 04:30 107 H 16 94/68 92 L 10/01/18 04:15 114 H 18 102/60 92 L 10/01/18 04:00 99.8 F H 112 H 112 H 16 98/62 93 L 10/01/18 03:45 114 H 13 87/56 93 L 10/01/18 03:30 114 H 23 100/65 93 L 10/01/18 03:15 125 H 30 H 116/61 90 L 10/01/18 03:00 115 H 15 110/62 93 L 10/01/18 02:45 113 H 18 132/65 93 L 10/01/18 02:30 109 H 16 111/67 92 L 10/01/18 02:15 117 H 19 83/58 91 L 10/01/18 02:00 112 H 17 81/54 91 L 10/01/18 01:45 104 H 14 78/51 91 L 10/01/18 01:30 105 H 13 86/56 91 L 10/01/18 01:15 114 H 15 69/49 10/01/18 01:00 118 H 15 78/37 10/01/18 00:45 116 H 19 78/37 89 L 10/01/18 00:30 99.2 F 114 H 15 81/65 88 L 10/01/18 00:15 124 H 16 10/01/18 00:13 29 H 09/30/18 23:33 112 H 19 81/51 98 09/30/18 23:25 117 H 80/50 09/30/18 23:16 116 H 09/30/18 23:10 98.4 F 109 H 18 78/50 99 09/30/18 23:03 112 H 100 09/30/18 23:01 112 H 19 09/30/18 22:55 80/50 09/30/18 22:47 86/50 09/30/18 22:37 98.0 F 104 H 18 90/55 100 09/30/18 22:25 98.0 F 104 H 23 94/60 90 L 09/30/18 19:05 98.1 F 107 H 20 90/58 92 L 09/30/18 15:00 98.5 F 92 16 180/90 93 L 09/30/18 14:00 82 18 139/84 92 L Intake and Output 09/30/18 10/01/18 10/01/18 22:59 06:59 14:59 Intake Total 120 1900 3384.219 Output Total 100 400 845 Balance 20 1500 2539.219 Intake: IV 880 2880 ACETAMINOPHEN IV (For NPO 100 ) 1,000 mg In Empty Bag 1 bag @ 400 mls/hr IVPB Q6HR PRN Rx#:[id number] Piperacillin-Tazobactam 3 200 .375 gm In Sodium Chloride 0.9% 100 ml @ 25 mls/hr IVPB Q8H [facility] Rx#: [id number] Sodium Chloride 0.9% 1, 680 480 000 ml @ 120 mls/hr IV . Q8H20M [facility] Rx#:[id number] Intake, IV Titration 120 1020 205.219 Amount ACETAMINOPHEN IV (For NPO 100 ) 1,000 mg In Empty Bag 1 bag @ 400 mls/hr IVPB Q6HR PRN Rx#:[id number] Norepinephrine 4 mg In 205.219 Sodium Chloride 0.9% 250 ml @ 0.05 MCG/KG/MIN 21. 602 mls/hr IV .[id number] [facility] Rx#:[id number] Sodium Chloride 0.9% 1, 120 420 000 ml @ 120 mls/hr IV . Q8H20M [facility] Rx#:[id number] Sodium Chloride 0.9% 500 500 ml 500 ml @ 999 mls/hr IV .Q31M [facility] Rx#:[id number] Blood Product 299 Ffp 24 Cpd Unit 299 [id number] Ffp 24 Cpd Unit 0 [id number] Output: Gastric Drainage 100 50 Urine 400 745 Estimated Blood Loss 50 Other: Voiding Method Indwelling Catheter Indwelling Catheter Physical Exam: Revealed 82-year-old white male on nasal cannula, in no form of respiratory distress, Head: Atraumatic normocephalic. Nasogastric tube noted in place. Coffee ground material noted in the nasogastric tube. HEENT:[Neck is supple.] [No neck masses.] [No thyromegaly.] [No JVD.]dry mucous membranes, throat is clear. Chest: [minimal fine crackles at the bases, diminished breath sounds, no rhonchi and no wheezes, symmetrical chest expansion, no chest wall tenderness..] Cardiac Exam:irregular irregular rhythm. [Normal S1 and S2, no S3 gallop, no murmur.] Abdomen: [obese, tender to palpation, positive rebound, positive guarding, no bowel sounds. Nasogastric tube noted in place. Extremities: [No clubbing, no edema, no cyanosis.]good pulses bilaterally, Neurological Exam:alert and oriented 3. [No focal neurologic deficit.] psychiatric: Normal mood, affect and normal mental status examination. Skin: No rashes. Lymphatics: No lymphadenopathy. Results - Laboratory Findings CBC and BMP: 10/01/18 04:57 10/01/18 04:57 ABG ABG pH 7.34 (7.35-7.45) L 06/23/19 07:48 ABG pCO2 36 mmHg (35-45) 10/01/18 07:48 ABG pO2 83 mmHg (83-108) 10/01/18 07:48 ABG O2 Saturation 96.0 % (94-97) 10/01/18 07:48 PT/INR, D-dimer PT 34.0 sec (9.0-12.0) H 10/01/18 10:19 INR 3.5 (<1.2) H 10/01/18 10:19 Abnormal lab findings: Abnormal Labs 09/30/18 09/30/18 09/30/18 08:43 08:51 08:51 WBC Neutrophils # 8.8 H Neutrophils # (Manual) Lymphocytes # 0.9 L Lymphocytes # (Manual) Monocytes # (Manual) PT INR APTT ABG pH ABG HCO3 Carbon Dioxide BUN 26 H Creatinine Glucose 134 H POC Glucose (mg/dL) Urine Protein 1+ H Urine Blood Small H Urine WBC Clumps Rare H Urine Mucus Rare H 10/01/18 10/01/18 10/01/18 00:16 04:57 04:57 WBC 18.6 H Neutrophils # Neutrophils # (Manual) 15.90 H Lymphocytes # Lymphocytes # (Manual) 0.93 L Monocytes # (Manual) 1.67 H PT INR APTT ABG pH ABG HCO3 Carbon Dioxide 21 L BUN 37 H Creatinine 2.94 H Glucose 164 H POC Glucose (mg/dL) 124 H Urine Protein Urine Blood Urine WBC Clumps Urine Mucus 10/01/18 10/01/18 07:48 10:19 WBC Neutrophils # Neutrophils # (Manual) Lymphocytes # Lymphocytes # (Manual) Monocytes # (Manual) PT 34.0 H INR 3.5 H APTT 34.7 H ABG pH 7.34 L ABG HCO3 19 L Carbon Dioxide BUN Creatinine Glucose POC Glucose (mg/dL) Urine Protein Urine Blood Urine WBC Clumps Urine Mucus - Diagnostic Findings Chest x-ray: image reviewed (chest x-ray showed bibasilar atelectasis, cardiomegaly, and small bilateral effusions) Additional studies: CT of the abdomen and pelvis showed mildly dilated proximal loops and small bowel with a transition point at the right lower quadrant. Small hiatal hernia, 3 cm cyst in the left lower pole of right kidney diverticular disease noted evidence of diverticulitis, small umbilical hernia containing fat noted Assessment and Plan Assessment: impression: 1 acute peritonitis, patient underwent exploratory laparotomy, he was found to have perforated diverticulitis with feculent and purulent peritonitis, underwent exploratory laparotomy, sigmoid colectomy and end colostomy. Drainage of abscess. 2 paroxysmal atrial fibrillation 3 coronary artery disease previous CABG.and previous PCI. For benign essential hypertension 5 dyslipidemia 6 degenerative joint disease 7 history of hypothyroidism Recommendation: as soon as I evaluated the patient this morning, patient was placed on antibiotics in the form of Zosyn, will also add Levaquin, and will initiate infectious disease consultation. I have recommended surgical intervention as soon as possible right after I evaluated the patient.shortly after, the patient was taken for exploratory laparotomy, and he was found to have acute peritonitis and perforated diverticulitis. Underwent sigmoid colectomy and colostomy. Patient will be coming back to the ICU on mechanical ventilation, discussed his condition with Dr. Woodward over the phone. Prognosis is guarded, we'll continue to follow in the ICU, and we will likely plan to wean and extubate the patient hopefully in the next 24 hours. In the meantime we'll broaden the spectrum of antibiotics, patient may need to be placed back on beta blockers for his atrial fibrillation, he did receive fresh frozen plasma for his elevated INR, will eventually need to be placed back on heparin for his atrial fibrillation. We will continue to follow. Time with Patient: Greater than 30
--- NOTE | 2018-10-01 13:05 | XR ---
EXAMINATION TYPE: XR chest 1V portable DATE OF EXAM: 10/01/2018 HISTORY: ET tube placement . REFERENCE: Previous study dated 10/01/2018. FINDINGS: There is been a midline sternotomy. The patient has been intubated. ET tube is in satisfactory position with the tip approximately 5 cm a sheri the lisbeth. The patient is NG tube is no longer visible. There continues to be bibasilar airspace disease. The heart is enlarged. There is small bilateral eff usions. IMPRESSION: 1. SATISFACTORY ET TUBE PLACEMENT. 2. CONTINUING BIBASILAR ATELECTASIS. 3. CARDIOMEGALY. 4. SMALL, BILATERAL EFFUSIONS.
[2018-10-01] MEDS: DILTIAZEM 125 MG in SODIUM CHLORIDE 0.9% 100 ML IV SCH (13:16)
[2018-10-01 13:30] LABS: ABG Base Excess -4.8 mmol/L; ABG HCO3 22 mmol/L (21-25); ABG Oxygen Saturation 92.1 % (94-97); ABG PCO2 44 mmHg (35-45); ABG PO2 67 mmHg (83-108); ABG TCO2 23 mmol/L (19-24); Allen Test Performed? Yes
[2018-10-01] MEDS ORDERED: LEVOFLOXACIN 500MG-D5W PMX 500 MG in DEXTROSE/WATER 1 100ML.BAG IVPB ONE (14:00)
[2018-10-01] MEDS: PROPOFOL 1,000 MG in EMPTY BAG 1 BAG IV SCH ×3 (15:25→22:41)
--- NOTE | 2018-10-01 16:57 | P.HPIM ---
History of Present Illness H&P Date: 09/30/18 Chief Complaint: Abdominal pain History of presenting complaint: This is a 82-year-old patient of Dr. Lopez. Patient had presented to the ER. Patient had earlier presented with abdominal pain. And was admitted with a diagnosis of small bowel obstruction. Pain is started early in the day. He had dilated to the ER physician that is having some trouble making urine. Patient having lower abdominal pain. Had some nausea vomiting. And was admitted to the medical floor. Gen. surgery was consulted from the ER. Later I was called from the floor that patient is having increasing abdominal pain and I told the nurse to contact the surgeon. Patient is given IV fluids. Later I was called at patient's becoming short of breath I did order a stat chest x-ray a portable. And looked at the same and appeared to be some fluid on the lungs. Also I was called of the blood pressure had dropped. I moved the patient to the ICU. Dr. Modi from pulmonary critical care was informed. was informed. Patient was lethargic when I saw him not able to get much of history.. I ordered another abdominal x-ray. Review of systems: Unable to obtain except for that as above as patient lethargic. Past medical history: Coronary artery disease with stent and bypass, atrial flutter, hypertension, hyperlipidemia, osteoporosis status, BPH, hypothyroid, sigmoid diverticulitis with contained perforation, gout, PTSD Social history: Patient is an [employer] . Did smoke a pipe and cigar stopped 1971. Does use a cane. Currently no family here. Physical examination: VITAL SIGNS: 98.4, 110, 18, 100/60, 90% on 4 L GENERAL: BMI 36.9, laying in bed lethargic. EYES: Pupils equal. Conjunctiva normal. HEENT: External appearance of nose and ears normal, oral cavity dry. NECK: JVD unable to assess; masses not palpable. HEART: Heart sounds irregular , no edema. LUNGS: Respiratory rate increased; decreased breath sounds. ABDOMEN: Soft, lower abdominal tenderness, no guarding no rigidity, liver spleen not palpable, no masses palpable, bowel sounds present. LYMPHATICS: No lymph nodes palpable in the axilla and neck. PSYCH: Lethargic and unable to assessl. NEUROLOGICAL: Cranial nerves grossly intact; no facial asymmetry, power and sensation grossly intact Investigations reviewed in the clinical context . White count 8.6, hemoglobin 16.9, platelets 174, potassium 4.2, INR 1.7, BUN 20, creatinine 1.18 Troponin negative Computed tomography scan of the abdomen shows dilated proximal loops of small bowel with a transition point in the right lower quadrant diverticular changes involving the left side of the colon without evidence of diverticulitis Chest x-ray film was reviewed by me shows possible pulmonary edema/portable Assessment: -This is a patient was presented with abdominal pain that started early in the day. Presented to the ER. Patient had previous (diverticulitis with contained perforation. Was having increasing abdominal pain. Patient's blood pressure has dropped. Could be early perforation. Patient abdominal examination does not show any guarding or rigidity at this point. Gen. surgery was already contacted from the ER and from the floor. Informed of transfer to the ICU. Repeat abdominal x-ray. There is no fever or white count. -Hypotensive shock, could be from volume loss -Persistent atrial flutter, with increased heart rate -One artery disease with prior history of stent and bypass -Hyperlipidemia -Essential hypertension -Primary osteoarthritis -BPH -Hypothyroidism -Chronic gout -PTSD -Sigmoid diverticulosis Plan: Patient is brought into the ICU. getting IV fluids. Had ordered fluid boluses while he was on the floor. IV pressors per decorator consultant. Further intervention per critical care and general surgery. I'm also ordering cardiology consultation. EKG is also being ordered.. There is no fever or white count. We will hold off antibiotics currently. Follow closely. Care was discussed with nurse- Both from ICU and from the medical floor.. Patient is nothing by mouth. Past Medical History Past Medical History: Atrial Fibrillation, Atrial Flutter, Coronary Artery Disease (CAD), Chest Pain / Angina, Hyperlipidemia, Hypertension, Myocardial Infarction ([place]), Osteoarthritis ([place]), Prostate Disorder, Skin Disorder, Thyroid Disorder Additional Past Medical History / Comment(s): Diverticulitis, HX PERFORATION. Gout. Eczema. BPH. Chronic Back Pain D/T PINCHED NERVE, USES CANE FOR DISTANCES. HX VERTIGO. FOOD GETTING STUCK IN THROAT - REMOVAL X3. Last Myocardial Infarction Date:: 08/2015 History of Any Multi-Drug Resistant Organisms: None Reported Past Surgical History: Cardiac Ablation, Coronary Bypass/CABG, Heart Catheterization With Stent, Tonsillectomy Additional Past Surgical History / Comment(s): 02/11/16 Cardiac stent to SVG to diagonal; TOTAL 3 NOW. CABG X3 0n 07/11/15. CYST REMOVED FROM HEART 1959; LEFT TESTICLE REMOVED; МАРИНА CATARACTS. EGD W/ REMOVAL FB X3. Past Anesthesia/Blood Transfusion Reactions: No Reported Reaction Additional Past Anesthesia/Blood Transfusion Reaction / Comment(s): no family hx Date of Last Stent Placement:: 02/11/16 Past Psychological History: PTSD Smoking Status: Former smoker Past Alcohol Use History: None Reported Past Drug Use History: None Reported - Past Family History Mother Family Medical History: Unable to Obtain Additional Family Medical History / Comment(s): Mother had a pacemaker. Father History Unknown: Yes Family Medical History: Myocardial Infarction ([place]) Medications and Allergies Home Medications Medication Instructions Recorded Confirmed Type Ezetimibe [Zetia] 10 mg PO HS 08/14/13 09/30/18 History Tamsulosin [Flomax] 0.8 mg PO HS 08/14/13 09/30/18 History ALPRAZolam [Xanax] 0.5 mg PO Q8H PRN 08/11/15 09/30/18 History Colchicine 0.6 mg PO DAILY PRN 01/14/16 09/30/18 History Pravastatin Sodium [Pravachol] 40 mg PO HS 01/14/16 09/30/18 History Metoprolol Tartrate [Lopressor] 25 mg PO Q12H 02/10/16 09/30/18 History Nitroglycerin Sl Tabs [Nitrostat] 0.4 mg SUBLINGUAL Q5M PRN 02/10/16 09/30/18 History Warfarin [Coumadin] 5 mg PO MOTUWETHFRSA 03/26/16 09/30/18 History Aspirin 81 mg PO DAILY 04/09/16 09/30/18 History Warfarin [Coumadin] 2.5 mg PO SALDIVAR 04/09/16 09/30/18 History Cyanocobalamin [Vitamin B-12] 500 mcg PO DAILY 07/08/16 09/30/18 History Multivit-Min/FA/Lycopen/Lutein 1 tab PO DAILY 07/08/16 09/30/18 History [Centrum Silver Tablet] Cholecalciferol [Vitamin D3 (25 1,000 unit PO DAILY 09/26/18 09/30/18 History Mcg = 1000 Iu)] Levothyroxine Sodium [Levoxyl] 75 mcg PO DAILY 09/26/18 09/30/18 History amLODIPine [Norvasc] 5 mg PO HS 09/26/18 09/30/18 History Benzonatate [Tessalon Perles] 100 mg PO TID PRN 09/30/18 09/30/18 History Ipratropium/Albuterol Sulfate 1 puff INHALATION RT-QID 09/30/18 09/30/18 History [Combivent Respimat Inhaler] Pregabalin [Lyrica] 75 mg PO BID 09/30/18 09/30/18 History predniSONE 20 mg PO BID 09/30/18 09/30/18 History Allergies Allergy/AdvReac Type Severity Reaction Status Date / Time No Known Allergies Allergy Verified 09/30/18 08:46 Physical Exam Vitals: Vital Signs Temp Pulse Pulse Resp BP BP Pulse Ox 09/30/18 23:33 81/51 09/30/18 23:25 80/50 09/30/18 23:16 116 H 09/30/18 23:10 78/50 09/30/18 23:03 112 H 100 09/30/18 22:55 80/50 09/30/18 22:47 86/50 09/30/18 22:37 98.0 F 104 H 18 90/55 100 09/30/18 22:25 98.0 F 104 H 23 94/60 90 L 09/30/18 19:05 98.1 F 107 H 20 90/58 92 L 09/30/18 15:00 98.5 F 92 16 180/90 93 L 09/30/18 14:00 82 18 139/84 92 L 09/30/18 10:59 74 18 153/93 97 09/30/18 08:17 97.6 F 73 18 168/94 96 Intake and Output 09/30/18 09/30/18 10/01/18 14:59 22:59 06:59 Intake Total 120 Output Total 100 Balance 20 Intake: Intake, IV Titration 120 Amount Sodium Chloride 0.9% 1, 120 000 ml @ 120 mls/hr IV . Q8H20M [facility] Rx#:[id number] Output: Gastric Drainage 100 Other: Voiding Method Urinal Urinal # Voids 0 Weight 113.398 kg Results CBC & Chem 7: 10/01/18 04:57 10/01/18 04:57 Labs: Abnormal Lab Results - Last 24 Hours (Table) 09/30/18 09/30/18 09/30/18 Range/Units 08:43 08:51 08:51 Neutrophils # 8.8 H (1.3-7.7) k/uL Lymphocytes # 0.9 L (1.0-4.8) k/uL BUN 26 H (9-20) mg/dL Glucose 134 H (74-99) mg/dL Urine Protein 1+ H (Negative) Urine Blood Small H (Negative) Urine WBC Clumps Rare H (None) /hpf Urine Mucus Rare H (None) /hpf
[2018-10-01 17:09] LABS: ABG Base Excess -4.1 mmol/L; ABG HCO3 21 mmol/L (21-25); ABG Oxygen Saturation 98.1 % (94-97); ABG PCO2 34 mmHg (35-45); ABG PO2 110 mmHg (83-108); ABG TCO2 22 mmol/L (19-24); Allen Test Performed? Yes
[2018-10-01] MEDS ORDERED: PHYTONADIONE 5 MG in SODIUM CHLORIDE 0.9% 50 ML IVPB STA (17:10)
--- NOTE | 2018-10-01 17:12 | P.PN ---
Progress Note - Text Progress Note Date: 10/01/18 Presenting complaint: Abdominal pain Interval history: Patient admitted with acute abdomen. Found to have perforated acute diverticulitis. Taken to the OR earlier today. Had a sigmoid colectomy and has a drain in place with partial closure of the abdomen. NG tube in place. Bishop catheter in place Today-patient is in the ICU. Has a Bishop catheter and a SAMY drain in place. Has abdominal dressing. Telemetry shows atrial flutter with a rapid rate. Drips include IV levo fed, IV propofol, IV Cardizem. Patient remains on the ventilator intubated. FiO2 100%, PEEP of 8. Sedated. Review of systems: Unable to obtain as patient is intubated Current medications reviewed that included: IV Cardizem, IV levo fed, IV Zosyn, IV saline. VITAL SIGNS: 97.7, 90, 22, 95 x 51, 99% on ventilator L GENERAL: Laying in bed intubated. EYES: Pupils equal. Conjunctiva normal. HEENT: External appearance of nose and ears normal, NG tube in place. NECK: JVD unable to assess; masses not palpable. HEART: Heart sounds irregular , no edema. LUNGS: Respiratory rate increased; decreased breath sounds. ABDOMEN: No left-sided colostomy, dressing in place with a SAMY drain, tender no mass palpable. PSYCH: Sedated and unable to assessl. NEUROLOGICAL: Cranial nerves grossly intact; no facial asymmetry, power and sensation grossly intact Investigations reviewed in the clinical context White count 18.6, hemoglobin 16.1, platelets 209, INR 3.5 potassium 3.8 BUN 37 creatinine 2.94 Assessment: -Acute perforated sigmoid diverticulitis with peritoneal contamination -Sigmoid colectomy with a resultant colostomy and a SAMY drain in place -Hypotensive and septic shock, -Acute renal failure, ATN from septic shock -Persistent atrial flutter, uncontrolled heart rate -Coronary artery disease with prior history of stent and bypass -Hyperlipidemia -Essential hypertension history of -Primary osteoarthritis -BPH -Hypothyroidism -Chronic gout -PTSD -Coumadin monitoring. Patient getting FFP. Plan: Patient remains in the ICU. Intubated. On IV Zosyn and IV Levaquin. We will add IV Flagyl. Follow electrolytes CBC closely. We'll also get a nephrology opinion. Follow with general surgery intensive with cardiology. Will give 5 mg of vitamin K IV piggyback.
[2018-10-01] MEDS ORDERED: SODIUM CHLORIDE 0.9% 1,000 ML IV ONE ×2 (17:36→22:27)
[2018-10-01] MEDS: metroNIDAZOLE-NS PMX 500 MG in SALINE 1 100ML.BAG IVPB SCH (18:23)
[2018-10-01] MEDS: IPRATROPIUM-ALBUTEROL 3 ML NEB INHALATION PRN (19:05)
[2018-10-01 20:16] LABS: MCH 31.3 pg (25.0-35.0); MCHC 31.8 g/dL (31.0-37.0); MCV 98.5 fL (80.0-100.0); Mean Platelet Volume 8.1; Platelet Count 187 k/uL (150-450); RBC 3.25 m/uL (4.30-5.90); RDW 14.9 % (11.5-15.5); WBC 13.1 k/uL (3.8-10.6)
[2018-10-01 20:19] LABS: ABG Base Excess -10.8 mmol/L; ABG HCO3 16 mmol/L (21-25); ABG Oxygen Saturation 98.5 % (94-97); ABG PCO2 33 mmHg (35-45); ABG PH 7.29 (7.35-7.45); ABG PO2 131 mmHg (83-108); ABG TCO2 17 mmol/L (19-24); Allen Test Performed? Yes
[2018-10-01 20:21] LABS: Prothrombin Time 19.8 sec (9.0-12.0)
[2018-10-01] MEDS: SODIUM CHLORIDE 0.9% 150 ML with VASOPRESSIN 60 UNIT IV SCH ×2 (20:21)
[2018-10-01 20:25] LABS: Albumin 1.9 g/dL (3.5-5.0); Calcium 6.7 mg/dL (8.4-10.2); HGB 10.2 gm/dL (13.0-17.5); Potassium 4.2 mmol/L (3.5-5.1); Total Bilirubin 0.6 mg/dL (0.2-1.3); Total Protein 3.8 g/dL (6.3-8.2)
[2018-10-01] MEDS ORDERED: SODIUM BICARB 8.4% 50 ML SYR (1 MEQ/ML) IV STA (20:28)
[2018-10-01] MEDS: HYDROCORTISONE SUCCINATE 100 MG/2 ML VIAL IV SCH (20:30)
--- NOTE | 2018-10-01 20:43 | XR ---
EXAMINATION TYPE: XR chest 1V portable DATE OF EXAM: 10/01/2018 COMPARISON: 10/01/2018 HISTORY: Short of breath TECHNIQUE: Single frontal view of the chest is obtained. FINDINGS: Endotracheal tube is 3 cm from the lisbeth. There is elevated right diaphragm. There is no heart failure. There are chest leads. IMPRESSION: No heart failure. Elevated right diaphragm with some basilar atelectasis. No definite pu lmonary consolidation. No significant change compared to exam earlier today.
[2018-10-01 20:53] LABS: Anisocytosis (M) Present; Band Neutrophils % 25 %; Hypochromasia (M) Present; Lymphocytes # (M) 2.23 k/uL (1.0-4.8); Metamyelocytes # (M) 0.52 k/uL (0); Metamyelocytes % 4 %; Monocytes # (M) 0.39 k/uL (0-1.0); Myelocytes # (M) 0.13 k/uL (0); Myelocytes % 1 %; Neutrophils % (M) 51 %; Nucleated Red Blood Cells 0 /100 WBC (0-0); Poikilocytosis (M) Present; Polychromasia Present; Total Cells Counted 200
[2018-10-01] MEDS: CHLORHEXIDINE GLUCONATE 15 ML CUP MUCOUS MEM SCH (21:34)
[2018-10-01] MEDS: NOREPINEPHRINE 32 MG in SODIUM CHLORIDE 0.9% 218 ML IV SCH (21:35)
[2018-10-01 23:43] LABS: Glucose,Whole Blood 178 mg/dL (75-99)
--- NOTE | 2018-10-02 00:02 | P.CONS ---
History of Present Illness - Reason for Consult Consult date: 10/01/18 Abdominal sepsis Requesting physician: Tobi Llanos - Chief Complaint Abdominal pain 1 day - History of Present Illness Patient is 82-year-old male presenting to the ER at [facility] yesterday with chief complaints of abdominal pain that the patient was started the morning of presentation to the hospital the patient seems trying to urinate when he started having pain in the lower abdominal area. Described sure at times pressure-like almost 7-8 out of 10 and no radiation patient has been nauseated but no vomiting no diarrhea or any constipation with these symptoms the patient represented to [facility] ER the patient was evaluated by the physician on presentation patient didn't have any fever or elevated white count the patient did have a CT of abdominal pelvis which was small bowel ileus diverticulosis but no evidence of any diverticulitis patient was taken to the OR this afternoon with the patient was noticed to have fecal/purulent peritonitis from ruptured diverticulitis patient is status post diverting colostomy and drainage of the abscess patient has been started on Zosyn and admitted to the ICU patient was hypertensive on presentation and required pressor support in addition to the food boluses most information has been obtained from review the chart and talking to this. As the patient is currently intubated on the vent and cannot provide any history and no family member was available at the bedside Review of Systems Positive point Mentioned in HPI. Complete to review could not be obtained as patient is currently intubated Past Medical History Past Medical History: Atrial Fibrillation, Atrial Flutter, Coronary Artery Disease (CAD), Chest Pain / Angina, Hyperlipidemia, Hypertension, Myocardial Infarction (AK), Osteoarthritis (OA), Prostate Disorder, Skin Disorder, Thyroid Disorder Additional Past Medical History / Comment(s): Diverticulitis, HX PERFORATION. Gout. Eczema. BPH. Chronic Back Pain D/T PINCHED NERVE, USES CANE FOR DISTANCES. HX VERTIGO. FOOD GETTING STUCK IN THROAT - REMOVAL X3. Last Myocardial Infarction Date:: 08/2015 History of Any Multi-Drug Resistant Organisms: None Reported Past Surgical History: Cardiac Ablation, Coronary Bypass/CABG, Heart Catheterization With Stent, Tonsillectomy Additional Past Surgical History / Comment(s): 02/11/16 Cardiac stent to SVG to diagonal; TOTAL 3 NOW. CABG X3 0n 07/11/15. CYST REMOVED FROM HEART 1958; LEFT TESTICLE REMOVED; МАРИНА CATARACTS. EGD W/ REMOVAL FB X3. Past Anesthesia/Blood Transfusion Reactions: No Reported Reaction Additional Past Anesthesia/Blood Transfusion Reaction / Comm: no family hx Date of Last Stent Placement:: 02/11/16 Past Psychological History: PTSD Smoking Status: Former smoker Past Alcohol Use History: None Reported Past Drug Use History: None Reported - Past Family History Mother Family Medical History: Unable to Obtain Additional Family Medical History / Comment(s): Mother had a pacemaker. Father History Unknown: Yes Family Medical History: Myocardial Infarction ([place]) Medications and Allergies Home Medications Medication Instructions Recorded Confirmed Type Ezetimibe [Zetia] 10 mg PO HS 08/14/13 09/30/18 History Tamsulosin [Flomax] 0.8 mg PO HS 08/14/13 09/30/18 History ALPRAZolam [Xanax] 0.5 mg PO Q8H PRN 08/11/15 09/30/18 History Colchicine 0.6 mg PO DAILY PRN 01/14/16 09/30/18 History Pravastatin Sodium [Pravachol] 40 mg PO HS 01/14/16 09/30/18 History Metoprolol Tartrate [Lopressor] 25 mg PO Q12H 02/10/16 09/30/18 History Nitroglycerin Sl Tabs [Nitrostat] 0.4 mg SUBLINGUAL Q5M PRN 02/10/16 09/30/18 History Warfarin [Coumadin] 5 mg PO MOTUWETHFRSA 03/26/16 09/30/18 History Aspirin 81 mg PO DAILY 04/09/16 09/30/18 History Warfarin [Coumadin] 2.5 mg PO SALDIVAR 04/09/16 09/30/18 History Cyanocobalamin [Vitamin B-12] 500 mcg PO DAILY 07/08/16 09/30/18 History Multivit-Min/FA/Lycopen/Lutein 1 tab PO DAILY 07/08/16 09/30/18 History [Centrum Silver Tablet] Cholecalciferol [Vitamin D3 (25 1,000 unit PO DAILY 09/26/18 09/30/18 History Mcg = 1000 Iu)] Levothyroxine Sodium [Levoxyl] 75 mcg PO DAILY 09/26/18 09/30/18 History amLODIPine [Norvasc] 5 mg PO HS 09/26/18 09/30/18 History Benzonatate [Tessalon Perles] 100 mg PO TID PRN 09/30/18 09/30/18 History Ipratropium/Albuterol Sulfate 1 puff INHALATION RT-QID 09/30/18 09/30/18 History [Combivent Respimat Inhaler] Pregabalin [Lyrica] 75 mg PO BID 09/30/18 09/30/18 History predniSONE 20 mg PO BID 09/30/18 09/30/18 History Allergies Allergy/AdvReac Type Severity Reaction Status Date / Time No Known Allergies Allergy Verified 09/30/18 08:46 Physical Exam Vitals: Vital Signs Temp Pulse Pulse Resp BP BP Pulse Ox 10/01/18 14:15 91 20 99/52 96 10/01/18 14:12 99.1 F 92 20 80/46 10/01/18 14:00 96 22 91/57 94 L 10/01/18 13:45 98 25 H 106/75 95 10/01/18 13:30 101 H 25 H 85/46 94 L 10/01/18 13:15 101 H 28 H 148/68 99 10/01/18 13:00 111 H 23 148/68 90 L 10/01/18 12:50 112 H 23 10/01/18 12:45 99.0 F 116 H 32 H 145/84 10/01/18 12:24 98.9 F 97 20 99/52 97 10/01/18 12:15 99.3 F 91 21 80/57 95 10/01/18 10:15 115 H 28 H 139/77 92 L 10/01/18 10:00 112 H 21 117/66 91 L 10/01/18 09:45 107 H 25 H 91/70 91 L 10/01/18 09:30 106 H 16 93/58 93 L 10/01/18 09:15 109 H 14 87/50 92 L 10/01/18 09:00 112 H 36 H 143/76 92 L 10/01/18 08:45 105 H 22 136/66 90 L 10/01/18 08:30 106 H 24 109/63 91 L 10/01/18 08:15 110 H 25 H 116/65 93 L 10/01/18 08:00 97.7 F 109 H 23 100/58 94 L 10/01/18 07:45 108 H 112 H 24 83/52 92 L 10/01/18 07:30 106 H 16 107/60 92 L 10/01/18 07:15 113 H 20 121/93 92 L 10/01/18 07:00 117 H 23 121/72 93 L 10/01/18 06:45 118 H 24 135/91 96 10/01/18 06:30 120 H 27 H 119/73 91 L 10/01/18 06:15 122 H 27 H 116/70 92 L 10/01/18 06:00 112 H 22 106/75 95 10/01/18 05:45 109 H 18 107/66 94 L 10/01/18 05:30 112 H 20 99/63 94 L 10/01/18 05:15 107 H 20 99/57 93 L 10/01/18 05:00 107 H 21 107/61 92 L 10/01/18 04:45 104 H 17 107/61 92 L 10/01/18 04:30 107 H 16 94/68 92 L 10/01/18 04:15 114 H 18 102/60 92 L 10/01/18 04:00 99.8 F H 112 H 112 H 16 98/62 93 L 10/01/18 03:45 114 H 13 87/56 93 L 10/01/18 03:30 114 H 23 100/65 93 L 10/01/18 03:15 125 H 30 H 116/61 90 L 10/01/18 03:00 115 H 15 110/62 93 L 10/01/18 02:45 113 H 18 132/65 93 L 10/01/18 02:30 109 H 16 111/67 92 L 10/01/18 02:15 117 H 19 83/58 91 L 10/01/18 02:00 112 H 17 81/54 91 L 10/01/18 01:45 104 H 14 78/51 91 L 10/01/18 01:30 105 H 13 86/56 91 L 10/01/18 01:15 114 H 15 69/49 10/01/18 01:00 118 H 15 78/37 10/01/18 00:45 116 H 19 78/37 89 L 10/01/18 00:30 99.2 F 114 H 15 81/65 88 L 10/01/18 00:15 124 H 16 0619 00:13 29 H 09/30/18 23:33 112 H 19 81/51 98 09/30/18 23:25 117 H 80/50 09/30/18 23:16 116 H 09/30/18 23:10 98.4 F 109 H 18 78/50 99 09/30/18 23:03 112 H 100 09/30/18 23:01 112 H 19 09/30/18 22:55 80/50 09/30/18 22:47 86/50 09/30/18 22:37 98.0 F 104 H 18 90/55 100 09/30/18 22:25 98.0 F 104 H 23 94/60 90 L 09/30/18 19:05 98.1 F 107 H 20 90/58 92 L 09/30/18 15:00 98.5 F 92 16 180/90 93 L Intake and Output 09/30/18 10/01/18 10/01/18 22:59 06:59 14:59 Intake Total 120 1900 4040.126 Output Total 229 626 3365 Balance 20 1500 2370.126 Intake: IV 880 3220 ACETAMINOPHEN IV (For NPO 100 ) 1,000 mg In Empty Bag 1 bag @ 400 mls/hr IVPB Q6HR PRN Rx#:[id number] Lactated Ringers 1,000 ml 100 @ 0 mls/hr IV .STK-MED ONE Rx#:[id number] Levofloxacin 250Mg-D5w 0 Pmx 250 mg In Dextrose/ Water 1 50ml.bag @ 50 mls /hr IVPB Q24H [facility] Rx#: [id number] Piperacillin-Tazobactam 3 200 .375 gm In Sodium Chloride 0.9% 100 ml @ 25 mls/hr IVPB Q8H [facility] Rx#: [id number] Sodium Chloride 0.9% 1, 680 720 000 ml @ 120 mls/hr IV . Q8H20M [facility] Rx#:[id number] Intake, IV Titration 120 1020 229.126 Amount ACETAMINOPHEN IV (For NPO 100 ) 1,000 mg In Empty Bag 1 bag @ 400 mls/hr IVPB Q6HR PRN Rx#:[id number] Norepinephrine 4 mg In 229.126 Sodium Chloride 0.9% 250 ml @ 0.05 MCG/KG/MIN 21. 602 mls/hr IV .[id number] [facility] Rx#:[id number] Sodium Chloride 0.9% 1, 120 420 000 ml @ 120 mls/hr IV . Q8H20M [facility] Rx#:[id number] Sodium Chloride 0.9% 500 500 ml 500 ml @ 999 mls/hr IV .Q31M [facility] Rx#:[id number] Blood Product 591 Ffp 24 Cpd Unit 0 [id number] Ffp 24 Cpd Unit 299 [id number] Ffp 24 Cpd Unit 292 [id number] Output: Gastric Drainage 100 50 Urine 400 1570 Estimated Blood Loss 50 Other: Voiding Method Indwelling Catheter Indwelling Catheter GENERAL DESCRIPTION: An elderly male lying in bed, no distress. No tachypnea or accessory muscle of respiration use. HEENT: Shows Pallor , no scleral icterus. Oral mucous membrane is dry. Patient is orally intubated NECK: Trachea central, no thyromegaly. LUNGS: Unlabored breathing. Clear to auscultation anteriorly. No wheeze or crackle. HEART: S1, S2, regular rate and rhythm. No loud murmur ABDOMEN: Soft, no tenderness , guarding or rigidity, no organomegaly EXTREMITIES: No edema of feet. SKIN: No rash, no masses palpable. NEUROLOGICAL: The patient is sedated on the vent orientation could not be determined Results CBC & Chem 7: 10/01/18 20:00 10/01/18 20:00 Labs: Abnormal Lab Results - Last 24 Hours (Table) 10/01/18 10/01/18 10/01/18 Range/Units 00:16 04:57 04:57 WBC 18.6 H (3.8-10.6) k/uL Neutrophils # (Manual) 15.90 H (1.3-7.7) k/uL Lymphocytes # (Manual) 0.93 L (1.0-4.8) k/uL Monocytes # (Manual) 1.67 H (0-1.0) k/uL PT (9.0-12.0) sec INR (<1.2) APTT (22.0-30.0) sec ABG pH (7.35-7.45) ABG pO2 (83-108) mmHg ABG HCO3 (21-25) mmol/L ABG O2 Saturation (94-97) % Carbon Dioxide 21 L (22-30) mmol/L BUN 37 H (9-20) mg/dL Creatinine 2.94 H (0.66-1.25) mg/dL Glucose 164 H (74-99) mg/dL POC Glucose (mg/dL) 124 H (75-99) mg/dL 10/01/18 10/01/18 10/01/18 Range/Units 07:48 10:19 12:43 WBC (3.8-10.6) k/uL Neutrophils # (Manual) (1.3-7.7) k/uL Lymphocytes # (Manual) (1.0-4.8) k/uL Monocytes # (Manual) (0-1.0) k/uL PT 34.0 H (9.0-12.0) sec INR 3.5 H (<1.2) APTT 34.7 H (22.0-30.0) sec ABG pH 7.34 L (7.35-7.45) ABG pO2 (83-108) mmHg ABG HCO3 19 L (21-25) mmol/L ABG O2 Saturation (94-97) % Carbon Dioxide (22-30) mmol/L BUN (9-20) mg/dL Creatinine (0.66-1.25) mg/dL Glucose (74-99) mg/dL POC Glucose (mg/dL) 166 H (75-99) mg/dL 10/01/18 Range/Units 13:14 WBC (3.8-10.6) k/uL Neutrophils # (Manual) (1.3-7.7) k/uL Lymphocytes # (Manual) (1.0-4.8) k/uL Monocytes # (Manual) (0-1.0) k/uL PT (9.0-12.0) sec INR (<1.2) APTT (22.0-30.0) sec ABG pH 7.30 L (7.35-7.45) ABG pO2 67 L (83-108) mmHg ABG HCO3 (21-25) mmol/L ABG O2 Saturation 92.1 L (94-97) % Carbon Dioxide (22-30) mmol/L BUN (9-20) mg/dL Creatinine (0.66-1.25) mg/dL Glucose (74-99) mg/dL POC Glucose (mg/dL) (75-99) mg/dL Assessment and Plan Assessment: 1-patient admitted hospital with sepsis in this patient who did have significant hypotension requiring pressor support tachycardia tachypnea source is fecal/purulent peritonitis from ruptured diverticulitis status post drainage of the abscess and diverticulitis colostomy, will need to cover for enteric gram- negative both aerobes and anaerobes (1) Perforation of sigmoid colon due to diverticulitis Current Visit: Yes Status: Acute Code(s): K57.20 - DVTRCLI OF LG INT W PERFORATION AND ABSCESS W/O BLEEDING SNOMED Code(s): 3721350392436798 (2) Sepsis Current Visit: No Status: Acute Code(s): A41.9 - SEPSIS, UNSPECIFIED ORGANISM SNOMED Code(s): 84829487 Plan: 1-patient will be treated with Zosyn 3.375 g every 8 hours should provide adequate coverage for both aerobic and anaerobic gram-negative 2-IV fluid and pressor support we will follow up on clinical condition and cultures to further adjust medication if needed Thank you for this consultation will follow this patient along with you Time with Patient: Greater than 30
[2018-10-02] MEDS: metroNIDAZOLE-NS PMX 500 MG in SALINE 1 100ML.BAG IVPB SCH ×4 (00:26→18:00)
--- NOTE | 2018-10-02 00:49 | PCN ---
PROCEDURE NOTE OPERATIVE REPORT: Placement of right femoral triple-lumen catheter. PREOPERATIVE DIAGNOSES: Acute abdominal sepsis, septic shock, hypotension, and Coumadin coagulopathy with elevated INR. POSTOPERATIVE DIAGNOSES: Acute abdominal sepsis, septic shock, hypotension, and Coumadin coagulopathy with elevated INR. ANESTHESIA USED: 2 mL of 1% lidocaine. PROCEDURE DETAILS: The patient was placed in a supine position, the right groin was prepared in a sterile fashion and drapes were applied. The right femoral vein was cannulated easily, and a guidewire was placed. A small tiny incision was made, and the area around the guidewire was dilated. Then a triple-lumen catheter was inserted over the guidewire, and the guidewire was removed. Good blood flow was noted in the 3 different ports of the triple-lumen catheter. The line was secured using 3.0 silk sutures, and no evidence of any immediate complications. MMODL / IJN: [id number] /
--- NOTE | 2018-10-02 00:49 | PCN ---
PROCEDURE NOTE PROCEDURE PERFORMED: Placement of the right brachial arterial line. PREOPERATIVE DIAGNOSIS: Acute abdominal sepsis, hypotension, the patient needed hemodynamic monitoring. POSTOPERATIVE DIAGNOSIS: Acute abdominal sepsis, hypotension, the patient needed hemodynamic monitoring. ANESTHESIA: Used none deployed. PROCEDURE DESCRIPTION: The right brachial region was prepared in a sterile fashion and drapes were applied. The right brachial artery was palpated, cannulated, and a guidewire was placed. A Cook's catheter was inserted over the guidewire, and the guidewire was removed. Good blood flow and good waveform were noted. No evidence of any immediate complications. MMODL / IJN: [id number] /
[2018-10-02] MEDS: HYDROmorphone 1 MG/ML 1 ML SYRINGE IVP PRN ×3 (01:24→21:03)
[2018-10-02] MEDS ORDERED: SODIUM CHLORIDE 0.9% 1,000 ML IV ONE (02:59)
[2018-10-02 04:40] LABS: HCT 28.7 % (39.0-53.0); HGB 9.5 gm/dL (13.0-17.5); MCH 32.5 pg (25.0-35.0); MCHC 33.2 g/dL (31.0-37.0); MCV 97.9 fL (80.0-100.0); Mean Platelet Volume 8.1; Platelet Count 137 k/uL (150-450); RBC 2.93 m/uL (4.30-5.90); RDW 15.1 % (11.5-15.5)
[2018-10-02 04:43] LABS: ABG Base Excess -9.6 mmol/L; ABG HCO3 17 mmol/L (21-25); ABG PCO2 33 mmHg (35-45); ABG PH 7.31 (7.35-7.45); ABG PO2 77 mmHg (83-108); ABG TCO2 18 mmol/L (19-24)
[2018-10-02 04:55] LABS: Potassium 4.5 mmol/L (3.5-5.1)
[2018-10-02 04:57] LABS: Allen Test Performed? no
[2018-10-02 05:02] LABS: Calcium 6.5 mg/dL (8.4-10.2)
[2018-10-02 05:04] LABS: Band Neutrophils % 26 %; Lymphocytes # (M) 0.42 k/uL (1.0-4.8); Monocytes # (M) 0.21 k/uL (0-1.0); Myelocytes % 1 %; Neutrophils % (M) 68 %; Nucleated Red Blood Cells 1 /100 WBC (0-0); Total Cells Counted 200; Toxic Vacuolation Present; WBC 10.4 k/uL (3.8-10.6)
[2018-10-02] MEDS: PROPOFOL 1,000 MG in EMPTY BAG 1 BAG IV SCH ×5 (05:53→21:04)
[2018-10-02] MEDS: SODIUM CHLORIDE 0.9% 1,000 ML IV SCH ×3 (06:13→21:05)
[2018-10-02] MEDS: IPRATROPIUM-ALBUTEROL 3 ML NEB INHALATION PRN (07:47)
--- NOTE | 2018-10-02 08:10 | XR ---
EXAMINATION TYPE: XR chest 1V DATE OF EXAM: 10/02/2018 COMPARISON: 10/01/2018 HISTORY: 82 year-old male shortness of breath TECHNIQUE: Single frontal view of the chest is obtained. FINDINGS: Demetria is not well visualized but the ET tube appears satisfactory. NG tube courses below the diaphra gm. Median sternotomy wires and post-CABG clips in the mediastinum. Continued small left pleural effu hannah with patchy left basilar retrocardiac opacity. Mild prominence to pulmonary vasculature. IMPRESSION: Similar mild pulmonary vascular congestion. Continued small left effusion with adjacent left basilar atelectasis and or consolidation.
[2018-10-02] MEDS: HYDROCORTISONE SUCCINATE 100 MG/2 ML VIAL IV SCH (08:44)
[2018-10-02] MEDS: CHLORHEXIDINE GLUCONATE 15 ML CUP MUCOUS MEM SCH ×2 (08:45→21:04)
[2018-10-02] MEDS: PIPERACILLIN-TAZOBACTAM 3.375 GM in SODIUM CHLORIDE 0.9% 100 ML IVPB SCH ×2 (08:45→16:51)
[2018-10-02] MEDS: DILTIAZEM 125 MG in SODIUM CHLORIDE 0.9% 100 ML IV SCH (09:08)
[2018-10-02] MEDS ORDERED: SODIUM BICARB 8.4% 50 ML SYR (1 MEQ/ML) IV STA (09:15)
[2018-10-02] MEDS ORDERED: FUROSEMIDE 10 MG/ML 10 ML VIAL IV STA (09:15)
--- NOTE | 2018-10-02 10:00 | P.NPCON ---
History of Present Illness - Reason for Consult acute renal failure - History of Present Illness Reason for consultation: Acute kidney injury History of present illness: Patient is a 82-year-old male seen in renal consultation for acute kidney injury. It appears patient has chronic kidney disease stage III to basic creatinine in the range of 1.1-1.3. Peaked at 2.9 for this admission and is stable at 2.52 today. Urine output has been about 30-35 mL an hour. Patient presented to the hospital abdominal pain. He was noted to have perforated diverticulitis with fecal peritonitis. He underwent exploratory laparotomy with sigmoid colectomy with end colostomy and drainage of abscess on October 01. He is maintained on normal saline at 120 mL an hour. Patient has received nearly 7.5 L of normal saline since admission. He is on high-dose Levophed as well as vasopressin. He is acidotic with a bicarb level of 16. Remains intubated. He also wanted A. fib with RVR and is currently maintained on Cardizem drip. No history of diabetes. Vital signs: Maintained on vasopressors. General: The patient appeared well nourished and normally developed. HEENT: Head exam is unremarkable. Neck is without jugular venous distension. LUNGS: Lungs are clear to auscultation and percussion. Breath sounds decreased. HEART: Irregular rate and rhythm. ABDOMEN: Bowel sounds decreased. EXTREMITITES: 1+ edema. Past Medical History Past Medical History: Atrial Fibrillation, Atrial Flutter, Coronary Artery Disease (CAD), Chest Pain / Angina, Hyperlipidemia, Hypertension, Myocardial Infarction (VT), Osteoarthritis (OA), Prostate Disorder, Skin Disorder, Thyroid Disorder Additional Past Medical History / Comment(s): Diverticulitis, HX PERFORATION. Gout. Eczema. BPH. Chronic Back Pain D/T PINCHED NERVE, USES CANE FOR DISTANCES. HX VERTIGO. FOOD GETTING STUCK IN THROAT - REMOVAL X3. Last Myocardial Infarction Date:: 08/2015 History of Any Multi-Drug Resistant Organisms: None Reported Past Surgical History: Cardiac Ablation, Coronary Bypass/CABG, Heart Catheteriza tion With Stent, Tonsillectomy Additional Past Surgical History / Comment(s): 02/11/16 Cardiac stent to SVG to diagonal; TOTAL 3 NOW. CABG X3 0n 07/11/15. CYST REMOVED FROM HEART 1958; LEFT TESTICLE REMOVED; МАРИНА CATARACTS. EGD W/ REMOVAL FB X3. Past Anesthesia/Blood Transfusion Reactions: No Reported Reaction Additional Past Anesthesia/Blood Transfusion Reaction / Comment(s): no family hx Date of Last Stent Placement:: 02/11/16 Past Psychological History: PTSD Smoking Status: Former smoker Past Alcohol Use History: None Reported Past Drug Use History: None Reported - Past Family History Mother Family Medical History: Unable to Obtain Additional Family Medical History / Comment(s): Mother had a pacemaker. Father History Unknown: Yes Family Medical History: Myocardial Infarction (VT) Medications and Allergies Home Medications Medication Instructions Recorded Confirmed Type Ezetimibe [Zetia] 10 mg PO HS 08/14/13 09/30/18 History Tamsulosin [Flomax] 0.8 mg PO HS 08/14/13 09/30/18 History ALPRAZolam [Xanax] 0.5 mg PO Q8H PRN 08/11/15 09/30/18 History Colchicine 0.6 mg PO DAILY PRN 01/14/16 09/30/18 History Pravastatin Sodium [Pravachol] 40 mg PO HS 01/14/16 09/30/18 History Metoprolol Tartrate [Lopressor] 25 mg PO Q12H 02/10/16 09/30/18 History Nitroglycerin Sl Tabs [Nitrostat] 0.4 mg SUBLINGUAL Q5M PRN 02/10/16 09/30/18 History Warfarin [Coumadin] 5 mg PO [id number] 03/26/16 09/30/18 History Aspirin 81 mg PO DAILY 04/09/16 09/30/18 History Warfarin [Coumadin] 2.5 mg PO SALDIVAR 04/09/16 09/30/18 History Cyanocobalamin [Vitamin B-12] 500 mcg PO DAILY 07/08/16 09/30/18 History Multivit-Min/FA/Lycopen/Lutein 1 tab PO DAILY 07/08/16 09/30/18 History [Centrum Silver Tablet] Cholecalciferol [Vitamin D3 (25 1,000 unit PO DAILY 09/26/18 09/30/18 History Mcg = 1000 Iu)] Levothyroxine Sodium [Levoxyl] 75 mcg PO DAILY 09/26/18 09/30/18 History amLODIPine [Norvasc] 5 mg PO HS 09/26/18 09/30/18 History Benzonatate [Tessalon Perles] 100 mg PO TID PRN 09/30/18 09/30/18 History Ipratropium/Albuterol Sulfate 1 puff INHALATION RT-QID 09/30/18 09/30/18 History [Combivent Respimat Inhaler] Pregabalin [Lyrica] 75 mg PO BID 09/30/18 09/30/18 History predniSONE 20 mg PO BID 09/30/18 09/30/18 History Allergies Allergy/AdvReac Type Severity Reaction Status Date / Time No Known Allergies Allergy Verified 09/30/18 08:46 Physical Exam Vitals: Vital Signs Temp Pulse Pulse Resp BP Pulse Ox 10/02/18 08:15 105 H 20 76/51 98 10/02/18 08:10 104 H 10/02/18 08:00 98.6 F 104 H 20 98 10/02/18 07:55 105 H 10/02/18 07:45 105 H 20 96 10/02/18 07:30 103 H 20 96 10/02/18 07:15 103 H 20 99/47 96 10/02/18 07:00 105 H 20 10/02/18 06:45 105 H 20 95 10/02/18 06:30 105 H 20 100/51 10/02/18 06:15 104 H 14 100/51 10/02/18 06:00 106 H 27 H 130/49 96 10/02/18 05:45 106 H 23 101/38 96 10/02/18 05:30 107 H 24 101/38 95 10/02/18 05:15 106 H 24 101/38 95 10/02/18 05:00 106 H 25 H 101/56 94 L 10/02/18 04:45 106 H 25 H 94 L 10/02/18 04:30 109 H 24 93 L 10/02/18 04:15 107 H 25 H 101/56 94 L 10/02/18 04:00 98.7 F 107 H 24 102/63 94 L 10/02/18 03:45 106 H 24 102/63 93 L 10/02/18 03:30 105 H 22 96 10/02/18 03:15 107 H 21 102/63 96 10/02/18 03:00 111 H 22 93/52 96 10/02/18 02:45 111 H 22 96 10/02/18 02:30 110 H 22 93/52 96 10/02/18 02:15 109 H 28 H 93/52 96 10/02/18 02:00 98.7 F 106 H 22 114/50 10/02/18 01:45 109 H 30 H 85/44 97 10/02/18 01:30 112 H 29 H 93/58 97 10/02/18 01:23 98.7 F 112 H 25 H 97/47 10/02/18 01:15 116 H 25 H 93/58 97 10/02/18 01:13 98.6 F 115 H 30 H 104/51 10/02/18 01:00 115 H 19 90/52 97 10/02/18 00:45 113 H 20 90/52 97 10/02/18 00:30 113 H 22 97/58 98 10/02/18 00:21 98.1 F 112 H 30 H 109/51 10/02/18 00:15 111 H 29 H 97/58 98 10/02/18 00:00 98.7 F 112 H 33 H 84/36 98 10/01/18 23:52 98.1 F 112 H 30 H 104/52 10/01/18 23:50 112 H 29 H 84/36 98 10/01/18 23:45 112 H 30 H 84/36 98 10/01/18 23:42 97.8 F 112 H 30 H 100/49 10/01/18 23:37 98 F 113 H 30 H 101/49 10/01/18 23:30 110 H 30 H 95/51 98 10/01/18 23:27 98 F 111 H 31 H 99/49 10/01/18 23:15 106 H 28 H 95/51 98 10/01/18 23:00 105 H 26 H 115/56 98 10/01/18 22:57 98.3 F 103 H 28 H 95/45 10/01/18 22:47 98.5 F 104 H 29 H 98/45 10/01/18 22:45 98.4 F 102 H 25 H 115/56 97 10/01/18 22:32 98.1 F 101 H 32 H 112/49 10/01/18 22:30 103 H 22 121/49 96 10/01/18 22:22 98.7 F 101 H 31 H 83/40 10/01/18 22:15 98 22 99/80 10/01/18 22:00 98 29 H 55/32 93 L 10/01/18 21:45 105 H 22 73/48 10/01/18 21:30 108 H 21 95 10/01/18 21:15 110 H 21 106/58 97 10/01/18 21:00 107 H 24 96 10/01/18 20:45 106 H 21 96 10/01/18 20:30 112 H 12 70/37 97 10/01/18 20:15 115 H 20 99 10/01/18 20:00 99.2 F 114 H 26 H 96/65 98 10/01/18 19:45 115 H 9 L 116/61 96 10/01/18 19:30 111 H 25 H 55/32 97 10/01/18 19:20 112 H 10/01/18 19:15 111 H 20 107/88 99 10/01/18 19:03 112 H 10/01/18 19:00 112 H 26 H 107/88 99 10/01/18 18:45 112 H 26 H 84/65 99 10/01/18 18:30 112 H 27 H 99 10/01/18 18:15 114 H 27 H 65/48 98 10/01/18 18:00 112 H 26 H 80/63 98 10/01/18 17:45 112 H 31 H 72/48 99 10/01/18 17:30 112 H 28 H 87/55 97 10/01/18 17:15 105 H 26 H 90/53 99 10/01/18 17:00 101 H 25 H 87/55 99 10/01/18 16:51 97.7 F 98 24 83/46 10/01/18 16:45 98 27 H 83/46 99 10/01/18 16:30 96 26 H 101/54 96 10/01/18 16:17 98 24 10/01/18 16:15 91 20 92/54 100 10/01/18 16:00 97.7 F 90 22 95/51 99 10/01/18 15:45 90 22 111/55 99 10/01/18 15:30 87 21 112/84 98 10/01/18 15:15 93 27 H 88/56 98 10/01/18 15:00 89 22 89/55 98 10/01/18 14:52 98.8 F 86 22 89/55 10/01/18 14:45 90 22 81/69 99 10/01/18 14:30 90 21 99/52 97 10/01/18 14:15 91 20 99/52 96 10/01/18 14:12 99.1 F 92 20 80/46 10/01/18 14:00 96 22 91/57 94 L 10/01/18 13:45 98 25 H 106/75 95 10/01/18 13:30 101 H 25 H 85/46 94 L 10/01/18 13:15 101 H 28 H 148/68 99 10/01/18 13:00 111 H 23 148/68 90 L 10/01/18 12:50 112 H 23 10/01/18 12:45 99.0 F 116 H 32 H 145/84 10/01/18 12:24 98.9 F 97 20 99/52 97 10/01/18 12:15 99.3 F 91 21 80/57 95 10/01/18 10:15 115 H 28 H 139/77 92 L 10/01/18 10:00 112 H 21 117/66 91 L Intake and Output 10/01/18 10/02/18 10/02/18 22:59 06:59 14:59 Intake Total 6346.662 3120.206 570.779 Output Total 322 260 90 Balance 6024.662 2860.206 480.779 Intake: IV 5078 2008 478 Levofloxacin 250Mg-D5w 50 Pmx 250 mg In Dextrose/ Water 1 50ml.bag @ 50 mls /hr IVPB Q24H [facility] Rx#: [id number] Phytonadione 5 mg In 50 Sodium Chloride 0.9% 50 ml @ 100 mls/hr IVPB ON[facility] Rx#:[id number] Piperacillin-Tazobactam 3 100 .375 gm In Sodium Chloride 0.9% 100 ml @ 25 mls/hr IVPB Q8H [facility] Rx#: [id number] Sodium Chloride 0.9% 1, 960 960 360 000 ml @ 120 mls/hr IV . Q8H20M [facility] Rx#:[id number] Sodium Chloride 0.9% 1, 4000 1000 000 ml @ 999 mls/hr IV . Q1H1M [facility] Rx#:[id number] pressure bag 18 48 18 Intake, IV Titration 620.662 184.206 92.779 Amount Diltiazem 125 mg In 43.667 0 Sodium Chloride 0.9% 100 ml @ 5 MG/HR 5 mls/hr IV .Q24H [facility] Rx#:[id number] Norepinephrine 32 mg In 14.263 84.206 36.500 Sodium Chloride 0.9% 218 ml @ 0.05 MCG/KG/MIN 2. 658 mls/hr IV .Q24H [facility] Rx#:[id number] Norepinephrine 4 mg In 362.732 Sodium Chloride 0.9% 250 ml @ 0.05 MCG/KG/MIN 21. 602 mls/hr IV .[id number] [facility] Rx#:[id number] Propofol 1,000 mg In 200.000 100 Empty Bag 1 bag @ Titrate IV .Q0M [facility] Rx#: [id number] Sodium Chloride 0.9% 150 56.279 ml @ 0.03 UNITS/MIN 4.59 mls/hr IV .Q24H [facility] with Vasopressin 60 unit Rx#: [id number] Blood Product 648 928 Ffp 24 Cpd Unit 308 [id number] Ffp 24 Cpd Unit 338 [id number] Ffp 24 Cpd Unit 0 310 [id number] Rc As-1 Unit 310 [id number] Rc As-1 Unit 310 [id number] Output: Drainage 25 40 Right Abdomen 25 40 Urine 197 220 90 Emesis 100 Other: Voiding Method Indwelling Catheter Indwelling Catheter Weight 129.5 kg ABP, PAP, CO, CI - Last 8 Hours Arterial Blood Pressure 107/47 Arterial Blood Pressure 110/51 Arterial Blood Pressure 123/53 Arterial Blood Pressure 129/53 Arterial Blood Pressure 108/49 Arterial Blood Pressure 109/51 Arterial Blood Pressure 102/51 Arterial Blood Pressure 105/51 Arterial Blood Pressure 134/56 Arterial Blood Pressure 117/55 Arterial Blood Pressure 114/53 Arterial Blood Pressure 117/53 Arterial Blood Pressure 107/51 Arterial Blood Pressure 117/53 Arterial Blood Pressure 103/50 Arterial Blood Pressure 113/51 Arterial Blood Pressure 114/50 Arterial Blood Pressure 120/52 Arterial Blood Pressure 116/51 Arterial Blood Pressure 117/53 Arterial Blood Pressure 103/50 Arterial Blood Pressure 102/49 Arterial Blood Pressure 102/46 Arterial Blood Pressure 104/47 Results - Lab Results Most recent lab results ABG pH 7.31 (7.35-7.45) L 10/02/18 04:42 ABG pCO2 33 mmHg (35-45) L 10/02/18 04:42 ABG pO2 77 mmHg (83-108) L 10/02/18 04:42 ABG HCO3 17 mmol/L (21-25) L 10/02/18 04:42 ABG O2 Saturation 95.0 % (94-97) 10/02/18 04:42 Calcium 6.5 mg/dL (8.4-10.2) L 10/02/18 04:30 10/02/18 04:30 10/02/18 04:30 Assessment and Plan Plan: Assessment: 1. Acute kidney injury secondary to ATN secondary to septic shock. Creatinine peaked at 2.9 this admission and is 2.52 today. 2. Chronic kidney disease stage III secondary to nephrosclerosis with basic creatinine in the range of 1.1-1.3. 3. Septic shock secondary to perforated diverticulitis with fecal peritonitis. Status post exploratory laparotomy with sigmoid colectomy with end colostomy and drainage of abscess on October 01. Maintain on IV antibiotics. 4. A. fib with RVR maintain on Cardizem drip. 5. Metabolic acidosis secondary to acute kidney injury as well as IV fluids. 6. Volume overload. Plan: Okay to maintain normal saline if it will help with weaning off the ventilator. However need to monitor acid base level closely and will reconsider starting bicarb drip if acidosis further worsens. I will give him 2 A of bicarb IV push today. Lasix 80 mg IV once today to challenge kidneys/assess response to diuretics. This should not affect his blood pressure. Wean vasopressors. No urgency replacement therapy at this time. Patient is also currently hemodynamically unstable to tolerate renal replacement therapy. Continue to assess on day-to-day basis. Thank you for the consultation. I will continue to follow the patient with you during his hospital stay.
--- NOTE | 2018-10-02 11:08 | PN ---
PROGRESS NOTE PULMONARY/CRITICAL CARE PROGRESS NOTE: DATE OF SERVICE: 10/02/2018 CRITICAL CARE TIME: Greater than 30 minutes. This is an 82-year-old gentleman who was admitted on September 30. He came with small-bowel obstruction, abdominal pain, and he was intubated on October 01. On October 01, he underwent sigmoid colectomy with colostomy for a perforated diverticular abscess. The surgery was done by Dr. Woodward. He remains on the mechanical ventilator. The patient has received 7.5 L of fluid since he has been here, 5 units of fresh frozen plasma and 2 units of PRBCs. Currently, he is on the ventilator at the volume assist- control mode rate of 20, tidal volume 500, FiO2 50%, PEEP of 10. Arterial blood gases show pO2 of 77, pCO2 of 33, pH 7.30. He remains on norepinephrine at 20 mcg per minute, propofol at 45 mcg/kg per minute, 0.9 at 120 mL an hour, Cardizem drip of 5 mg an hour and vasopressin 0.03 units/minute. I did tell the nurses to consolidate the vasopressors even having to increase the Levophed it would be okay to get him off the vasopressin. The patient remains intubated and mechanically ventilated as mentioned above. I think he is too sick for a spontaneous breathing trial at this time and probably will not even do a daily interruption of sedation. He is postop day #1. PHYSICAL EXAMINATION: VITAL SIGNS: Current vital signs are reviewed. Temperature 98.6, heart rate 105, respiratory rate 20, blood pressure 107/47, and saturations 98%. Appears in no acute distress. Currently sedated. HEENT: Examination is grossly unremarkable. There is an orally placed endotracheal tube and NG tube. NECK: Supple. Full range of motion. CARDIOVASCULAR: Examination reveals an irregular rhythm and rate. Heart rate 105. S1, S2 normal. No clear-cut murmur noted. Heart sounds are distant. LUNGS: Reveal diffuse rhonchi. Breath sounds are diminished. There is prolongation. ABDOMEN: Soft. No bowel sounds are noted. EXTREMITIES: Are intact. No significant edema. No cyanosis or clubbing. SKIN: Without rash. NEUROLOGIC: Examination could not be adequately assessed. Microbiologic studies are thus far all negative. Labs are reviewed. White count 10.4, hemoglobin 9.5, hematocrit 28.7, platelet count 137,000. Lactic acid 4.8. Sodium 139, potassium 4.5, chloride 112, CO2 of 16. Anion gap is 11. BUN and creatinine were 40 and 2.52. Calcium 6.5. Chest x-ray shows small bilateral effusions and some mild cephalization. Endotracheal tube is in good position. Medications are reviewed. ASSESSMENT: 1. Postoperative day #1 status post sigmoid colectomy with colostomy for perforated diverticular abscess. 2. Routine postoperative ventilator management. 3. Paroxysmal atrial fibrillation. 4. Benign essential hypertension. 5. Hyperlipidemia. 6. Degenerative joint disease. 7. Hypothyroidism. PLAN: The patient's labs, x-rays, medications and problem list are all reviewed. The patient is still on norepinephrine at 28 mcg/minute and still getting sedated with propofol 45 mcg/kg per minute. We are going to see if we cannot wean the vasopressin off. He is still on Cardizem for atrial fibrillation at 5 mg an hour. No vent changes were made. Labs, x-rays, and medications are all reviewed. Additional recommendations and suggestions are forthcoming. Prognosis is guarded. CRITICAL CARE TIME: More than 30 minutes. MMODL / IJN: [id number] /
[2018-10-02] MEDS: IPRATROPIUM-ALBUTEROL 3 ML NEB INHALATION SCH ×3 (11:32→19:18)
[2018-10-02] MEDS ORDERED: ACETAMINOPHEN IV (For NPO) 1,000 MG in EMPTY BAG 1 BAG IVPB PRN (12:17)
--- NOTE | 2018-10-02 12:26 | PN ---
PROGRESS NOTE Mr. Martinez underwent surgery yesterday. He had a perforated sigmoid colon, has a colostomy now. He was quite hypotensive, his lactate levels were high. He went into atrial fibrillation, he is back in sinus rhythm. He is on Cardizem 5 mg. Blood pressure has improved. Creatinine has gone up substantially. The patient is on pressors, S1-S2 heard normally, short systolic murmur noted. Lungs reveal diminished air entry. Assisted by ventilator. Abdomen exam was deferred. Prognosis remains guarded. I am recommending a nephrology evaluation. We will continue the Cardizem at 5 mg/hour and see how he does. Patient's lactate has come down. He is showing signs of improvement. MMODL / IJN: [id number] /
[2018-10-02] MEDS: NOREPINEPHRINE 32 MG in SODIUM CHLORIDE 0.9% 218 ML IV SCH (12:38)
[2018-10-02 12:52] LABS: Glucose,Whole Blood 197 mg/dL (75-99)
--- NOTE | 2018-10-02 13:11 | P.PN ---
<NeftaliLeonor Sydnee - Last Filed: 10/02/18 13:02> Subjective Progress Note Date: 10/02/18 CHIEF COMPLAINT: Abdominal pain HISTORY OF PRESENT ILLNESS: Patient is status post exploratory laparotomy, sigmoid colectomy with end colostomy, and drainage of abscess secondary to perforated diverticulitis. Patient remains on mechanical ventilation in the ICU. He remains on vasopressor support, currently on Levophed at 40mcg. He received 7L in fluid boluses overnight. Urine output at least 30cc/hr. Ostomy with small amount of stool present. WBC 10.4. Hemoglobin 9.5. PHYSICAL EXAM: VITAL SIGNS: Reviewed. GENERAL: Well-developed. Remains on mechanical ventilation. HEENT: ET noted. NG to LIS with bilious drainage. Approximately 300 mL in canister. No sclera icterus. Extraocular movements grossly intact. Moist bu ccal mucosa. Head is atraumatic, normocephalic. ABDOMEN: Dressing to abdomen CDI. Packing to distal end of incision noted. No necrotic tissue. Ostomy intact with stool noted. Stoma very dark in color. NEUROLOGIC: Unable to assess secondary to mechanical ventilation ASSESSMENT: 1. Perforated diverticulitis, status post exploratory laparotomy, sigmoid colectomy with end colostomy, and drainage of abscess 2. Sepsis 3. Peritonitis PLAN: 1. Ventilator management per Dr. Ridley 2. Wean vasopressors as tolerated 3. Continue NG to LIS. No plans for TPN or tube feeding at this time Nurse practitioner note has been reviewed by physician. Signing provider agrees with the documented findings, assessment, and plan of care. Objective - Vital Signs Vital signs: Vital Signs Temp 100.0 F H 10/02/18 12:00 Pulse 115 H 10/02/18 12:15 Resp 22 10/02/18 12:15 BP 107/67 10/02/18 12:15 Pulse Ox 94 L 10/02/18 12:15 Intake & Output 10/01/18 10/02/18 10/02/18 18:59 06:59 18:59 Intake Total 6907.126 7218.343 1335.407 Output Total 1785 467 375 Balance 5122.126 6751.343 960.407 Weight 129.5 kg Intake: IV 4800 5506 1082 ACETAMINOPHEN IV (For NPO 100 ) 1,000 mg In Empty Bag 1 bag @ 400 mls/hr IVPB Q6HR PRN Rx#:[id number] Lactated Ringers 1,000 ml 100 @ 0 mls/hr IV .STK-MED ONE Rx#:[id number] Levofloxacin 250Mg-D5w 50 Pmx 250 mg In Dextrose/ Water 1 50ml.bag @ 50 mls /hr IVPB Q24H [facility] Rx#: [id number] Phytonadione 5 mg In 50 Sodium Chloride 0.9% 50 ml @ 100 mls/hr IVPB ONCE STA Rx#:[id number] Piperacillin-Tazobactam 3 100 .375 gm In Sodium Chloride 0.9% 100 ml @ 25 mls/hr IVPB Q8H [facility] Rx#: [id number] Sodium Chloride 0.9% 1, 1200 1440 840 000 ml @ 120 mls/hr IV . Q8H20M [facility] Rx#:[id number] Sodium Chloride 0.9% 1, 1000 4000 000 ml @ 999 mls/hr IV . Q1H1M ONE Rx#:[id number] metroNIDAZOLE-NS PMX 500 100 mg In Saline 1 100ml.bag @ 100 mls/hr IVPB Q6HR [facility] Rx#:[id number] pressure bag 66 42 Intake, IV Titration 583.126 474.343 253.407 Amount Diltiazem 125 mg In 43.667 0 Sodium Chloride 0.9% 100 ml @ 5 MG/HR 5 mls/hr IV .Q24H [facility] Rx#:[id number] Norepinephrine 32 mg In 98.469 95.103 Sodium Chloride 0.9% 218 ml @ 0.05 MCG/KG/MIN 2. 658 mls/hr IV .Q24H [facility] Rx#:[id number] Norepinephrine 4 mg In 483.126 132.207 Sodium Chloride 0.9% 250 ml @ 0.05 MCG/KG/MIN 21. 602 mls/hr IV .[id number] [facility] Rx#:[id number] Propofol 1,000 mg In 100.000 200 99.067 Empty Bag 1 bag @ Titrate IV .Q0M [facility] Rx#: [id number] Sodium Chloride 0.9% 150 59.237 ml @ 0.03 UNITS/MIN 4.59 mls/hr IV .Q24H [facility] with Vasopressin 60 unit Rx#: [id number] Blood Product 1524 1238 Ffp 24 Cpd Unit 308 [id number] Ffp 24 Cpd Unit 338 [id number] Ffp 24 Cpd Unit 310 [id number] Ffp 24 Cpd Unit 299 [id number] Ffp 24 Cpd Unit 292 [id number] Rc As-1 Unit 310 [id number] Rc As-1 Unit 310 [id number] Output: Gastric Drainage 50 Drainage 65 Right Abdomen 65 Urine 1685 302 375 Emesis 100 Estimated Blood Loss 50 Other: Voiding Method Indwelling Catheter Indwelling Catheter Indwelling Catheter ABP, PAP, CO, CI - Last Documented Arterial Blood Pressure 105/48 - Labs CBC & Chem 7: 10/02/18 04:30 10/02/18 04:30 Labs: Abnormal Lab Results - Last 24 Hours (Table) 10/01/18 10/01/18 10/01/18 Range/Units 09:38 13:14 16:59 WBC (3.8-10.6) k/uL RBC (4.30-5.90) m/uL Hgb (13.0-17.5) gm/dL Hct (39.0-53.0) % Plt Count (150-450) k/uL Neutrophils # (Manual) (1.3-7.7) k/uL Lymphocytes # (Manual) (1.0-4.8) k/uL Metamyelocytes # (Man) (0) k/uL Myelocytes # (Manual) (0) k/uL Nucleated RBCs (0-0) /100 WBC PT (9.0-12.0) sec INR (<1.2) ABG pH 7.30 L (7.35-7.45) ABG pCO2 34 L (35-45) mmHg ABG pO2 67 L 110 H (83-108) mmHg ABG HCO3 (21-25) mmol/L ABG Total CO2 (19-24) mmol/L ABG O2 Saturation 92.1 L 98.1 H (94-97) % ABG Lactic Acid (0.5-1.6) mmol/L Chloride (98-107) mmol/L Carbon Dioxide (22-30) mmol/L BUN (9-20) mg/dL Creatinine (0.66-1.25) mg/dL Glucose (74-99) mg/dL POC Glucose (mg/dL) (75-99) mg/dL Plasma Lactic Acid Alexey (0.7-2.0) mmol/L Calcium (8.4-10.2) mg/dL AST (17-59) U/L Total Protein (6.3-8.2) g/dL Albumin (3.5-5.0) g/dL Crossmatch See Detail 10/01/18 10/01/18 10/01/18 Range/Units 20:00 20:00 20:00 WBC 13.1 H (3.8-10.6) k/uL RBC 3.25 L (4.30-5.90) m/uL Hgb 10.2 L D (13.0-17.5) gm/dL Hct 32.0 L (39.0-53.0) % Plt Count (150-450) k/uL Neutrophils # (Manual) 9.90 H (1.3-7.7) k/uL Lymphocytes # (Manual) (1.0-4.8) k/uL Metamyelocytes # (Man) 0.52 H (0) k/uL Myelocytes # (Manual) 0.13 H (0) k/uL Nucleated RBCs (0-0) /100 WBC PT 19.8 H (9.0-12.0) sec INR 2.0 H (<1.2) ABG pH (7.35-7.45) ABG pCO2 (35-45) mmHg ABG pO2 (83-108) mmHg ABG HCO3 (21-25) mmol/L ABG Total CO2 (19-24) mmol/L ABG O2 Saturation (94-97) % ABG Lactic Acid (0.5-1.6) mmol/L Chloride 111 H (98-107) mmol/L Carbon Dioxide 15 L (22-30) mmol/L BUN 37 H (9-20) mg/dL Creatinine 2.50 H (0.66-1.25) mg/dL Glucose 155 H (74-99) mg/dL POC Glucose (mg/dL) (75-99) mg/dL Plasma Lactic Acid Alexey (0.7-2.0) mmol/L Calcium 6.7 L (8.4-10.2) mg/dL AST 85 H (17-59) U/L Total Protein 3.8 L (6.3-8.2) g/dL Albumin 1.9 L (3.5-5.0) g/dL Crossmatch 10/01/18 10/01/18 10/01/18 Range/Units 20:00 20:19 23:40 WBC (3.8-10.6) k/uL RBC (4.30-5.90) m/uL Hgb (13.0-17.5) gm/dL Hct (39.0-53.0) % Plt Count (150-450) k/uL Neutrophils # (Manual) (1.3-7.7) k/uL Lymphocytes # (Manual) (1.0-4.8) k/uL Metamyelocytes # (Man) (0) k/uL Myelocytes # (Manual) (0) k/uL Nucleated RBCs (0-0) /100 WBC PT (9.0-12.0) sec INR (<1.2) ABG pH 7.29 L (7.35-7.45) ABG pCO2 33 L (35-45) mmHg ABG pO2 131 H (83-108) mmHg ABG HCO3 16 L (21-25) mmol/L ABG Total CO2 17 L (19-24) mmol/L ABG O2 Saturation 98.5 H (94-97) % ABG Lactic Acid (0.5-1.6) mmol/L Chloride (98-107) mmol/L Carbon Dioxide (22-30) mmol/L BUN (9-20) mg/dL Creatinine (0.66-1.25) mg/dL Glucose (74-99) mg/dL POC Glucose (mg/dL) (75-99) mg/dL Plasma Lactic Acid Alexey 5.9 H* 7.3 H* (0.7-2.0) mmol/L Calcium (8.4-10.2) mg/dL AST (17-59) U/L Total Protein (6.3-8.2) g/dL Albumin (3.5-5.0) g/dL Crossmatch 10/01/18 10/02/18 10/02/18 Range/Units 23:40 04:30 04:30 WBC (3.8-10.6) k/uL RBC 2.93 L (4.30-5.90) m/uL Hgb 9.5 L (13.0-17.5) gm/dL Hct 28.7 L (39.0-53.0) % Plt Count 137 L (150-450) k/uL Neutrophils # (Manual) 9.70 H (1.3-7.7) k/uL Lymphocytes # (Manual) 0.42 L (1.0-4.8) k/uL Metamyelocytes # (Man) (0) k/uL Myelocytes # (Manual) 0.10 H (0) k/uL Nucleated RBCs 1 H (0-0) /100 WBC PT (9.0-12.0) sec INR (<1.2) ABG pH (7.35-7.45) ABG pCO2 (35-45) mmHg ABG pO2 (83-108) mmHg ABG HCO3 (21-25) mmol/L ABG Total CO2 (19-24) mmol/L ABG O2 Saturation (94-97) % ABG Lactic Acid (0.5-1.6) mmol/L Chloride 112 H (98-107) mmol/L Carbon Dioxide 16 L (22-30) mmol/L BUN 40 H (9-20) mg/dL Creatinine 2.52 H (0.66-1.25) mg/dL Glucose 175 H (74-99) mg/dL POC Glucose (mg/dL) 178 H (75-99) mg/dL Plasma Lactic Acid Alexey (0.7-2.0) mmol/L Calcium 6.5 L (8.4-10.2) mg/dL AST (17-59) U/L Total Protein (6.3-8.2) g/dL Albumin (3.5-5.0) g/dL Crossmatch 10/02/18 10/02/18 10/02/18 Range/Units 04:42 04:45 12:25 WBC (3.8-10.6) k/uL RBC (4.30-5.90) m/uL Hgb (13.0-17.5) gm/dL Hct (39.0-53.0) % Plt Count (150-450) k/uL Neutrophils # (Manual) (1.3-7.7) k/uL Lymphocytes # (Manual) (1.0-4.8) k/uL Metamyelocytes # (Man) (0) k/uL Myelocytes # (Manual) (0) k/uL Nucleated RBCs (0-0) /100 WBC PT (9.0-12.0) sec INR (<1.2) ABG pH 7.31 L (7.35-7.45) ABG pCO2 33 L (35-45) mmHg ABG pO2 77 L (83-108) mmHg ABG HCO3 17 L (21-25) mmol/L ABG Total CO2 18 L (19-24) mmol/L ABG O2 Saturation (94-97) % ABG Lactic Acid 4.8 H* 2.9 H* (0.5-1.6) mmol/L Chloride (98-107) mmol/L Carbon Dioxide (22-30) mmol/L BUN (9-20) mg/dL Creatinine (0.66-1.25) mg/dL Glucose (74-99) mg/dL POC Glucose (mg/dL) (75-99) mg/dL Plasma Lactic Acid Alexey (0.7-2.0) mmol/L Calcium (8.4-10.2) mg/dL AST (17-59) U/L Total Protein (6.3-8.2) g/dL Albumin (3.5-5.0) g/dL Crossmatch 10/02/18 Range/Units 12:48 WBC (3.8-10.6) k/uL RBC (4.30-5.90) m/uL Hgb (13.0-17.5) gm/dL Hct (39.0-53.0) % Plt Count (150-450) k/uL Neutrophils # (Manual) (1.3-7.7) k/uL Lymphocytes # (Manual) (1.0-4.8) k/uL Metamyelocytes # (Man) (0) k/uL Myelocytes # (Manual) (0) k/uL Nucleated RBCs (0-0) /100 WBC PT (9.0-12.0) sec INR (<1.2) ABG pH (7.35-7.45) ABG pCO2 (35-45) mmHg ABG pO2 (83-108) mmHg ABG HCO3 (21-25) mmol/L ABG Total CO2 (19-24) mmol/L ABG O2 Saturation (94-97) % ABG Lactic Acid (0.5-1.6) mmol/L Chloride (98-107) mmol/L Carbon Dioxide (22-30) mmol/L BUN (9-20) mg/dL Creatinine (0.66-1.25) mg/dL Glucose (74-99) mg/dL POC Glucose (mg/dL) 197 H (75-99) mg/dL Plasma Lactic Acid Alexey (0.7-2.0) mmol/L Calcium (8.4-10.2) mg/dL AST (17-59) U/L Total Protein (6.3-8.2) g/dL Albumin (3.5-5.0) g/dL Crossmatch Microbiology - Last 24 Hours (Table) 10/01/18 12:10 Gram Stain - Preliminary Abdomen Wound Culture - Preliminary Gram Neg Bacilli Gram Neg Bacilli#2 10/01/18 12:10 Anaerobic Culture - Preliminary Abdomen <Sandro Torrez - Last Filed: 10/02/18 16:17> Subjective As above. Patient remained septic. Hemodynamically slightly improved. Ostomies with a small amount of stool. Decent urine output. Patient ostomy does look ischemic in nature. Continue antibiotics. Continue supportive care. Objective - Vital Signs Vital signs: Vital Signs Temp 100.0 F H 10/02/18 12:00 Pulse 113 H 10/02/18 15:43 Resp 20 10/02/18 14:00 BP 100/63 10/02/18 14:00 Pulse Ox 94 L 10/02/18 14:00 Intake & Output 10/01/18 10/02/18 10/02/18 18:59 06:59 18:59 Intake Total 6907.126 7218.343 1510.221 Output Total 1785 467 450 Balance 5122.126 6751.343 1060.221 Weight 129.5 kg Intake: IV 4800 5506 1208 ACETAMINOPHEN IV (For NPO 100 ) 1,000 mg In Empty Bag 1 bag @ 400 mls/hr IVPB Q6HR PRN Rx#:[id number] Lactated Ringers 1,000 ml 100 @ 0 mls/hr IV .STK-MED ONE Rx#:[id number] Levofloxacin 250Mg-D5w 50 Pmx 250 mg In Dextrose/ Water 1 50ml.bag @ 50 mls /hr IVPB Q24H [facility] Rx#: [id number] Phytonadione 5 mg In 50 Sodium Chloride 0.9% 50 ml @ 100 mls/hr IVPB ONCE STA Rx#:[id number] Piperacillin-Tazobactam 3 100 .375 gm In Sodium Chloride 0.9% 100 ml @ 25 mls/hr IVPB Q8H [facility] Rx#: [id number] Sodium Chloride 0.9% 1, 1200 1440 960 000 ml @ 120 mls/hr IV . Q8H20M [facility] Rx#:[id number] Sodium Chloride 0.9% 1, 1000 4000 000 ml @ 999 mls/hr IV . Q1H1M ONE Rx#:[id number] metroNIDAZOLE-NS PMX 500 100 mg In Saline 1 100ml.bag @ 100 mls/hr IVPB Q6HR [facility] Rx#:[id number] pressure bag 66 48 Intake, IV Titration 583.126 474.343 302.221 Amount Diltiazem 125 mg In 43.667 0 Sodium Chloride 0.9% 100 ml @ 5 MG/HR 5 mls/hr IV .Q24H [facility] Rx#:[id number] Norepinephrine 32 mg In 98.469 143.917 Sodium Chloride 0.9% 218 ml @ 0.05 MCG/KG/MIN 2. 658 mls/hr IV .Q24H [facility] Rx#:[id number] Norepinephrine 4 mg In 483.126 132.207 Sodium Chloride 0.9% 250 ml @ 0.05 MCG/KG/MIN 21. 602 mls/hr IV .[id number] [facility] Rx#:[id number] Propofol 1,000 mg In 100.000 200 99.067 Empty Bag 1 bag @ Titrate IV .Q0M [facility] Rx#: [id number] Sodium Chloride 0.9% 150 59.237 ml @ 0.03 UNITS/MIN 4.59 mls/hr IV .Q24H [facility] with Vasopressin 60 unit Rx#: [id number] Blood Product 1524 1238 Ffp 24 Cpd Unit 308 [id number] Ffp 24 Cpd Unit 338 [id number] Ffp 24 Cpd Unit 310 [id number] Ffp 24 Cpd Unit 299 [id number] Ffp 24 Cpd Unit 292 [id number] Rc As-1 Unit 310 [id number] Rc As-1 Unit 310 [id number] Output: Gastric Drainage 50 Drainage 65 Right Abdomen 65 Urine 1685 302 450 Emesis 100 Estimated Blood Loss 50 Other: Voiding Method Indwelling Catheter Indwelling Catheter Indwelling Catheter ABP, PAP, CO, CI - Last Documented Arterial Blood Pressure 105/48 - Labs CBC & Chem 7: 10/02/18 04:30 10/02/18 04:30 Labs: Abnormal Lab Results - Last 24 Hours (Table) 10/01/18 10/01/18 10/01/18 Range/Units 09:38 16:59 20:00 WBC 13.1 H (3.8-10.6) k/uL RBC 3.25 L (4.30-5.90) m/uL Hgb 10.2 L D (13.0-17.5) gm/dL Hct 32.0 L (39.0-53.0) % Plt Count (150-450) k/uL Neutrophils # (Manual) 9.90 H (1.3-7.7) k/uL Lymphocytes # (Manual) (1.0-4.8) k/uL Metamyelocytes # (Man) 0.52 H (0) k/uL Myelocytes # (Manual) 0.13 H (0) k/uL Nucleated RBCs (0-0) /100 WBC PT (9.0-12.0) sec INR (<1.2) ABG pH (7.35-7.45) ABG pCO2 34 L (35-45) mmHg ABG pO2 110 H (83-108) mmHg ABG HCO3 (21-25) mmol/L ABG Total CO2 (19-24) mmol/L ABG O2 Saturation 98.1 H (94-97) % ABG Lactic Acid (0.5-1.6) mmol/L Chloride (98-107) mmol/L Carbon Dioxide (22-30) mmol/L BUN (9-20) mg/dL Creatinine (0.66-1.25) mg/dL Glucose (74-99) mg/dL POC Glucose (mg/dL) (75-99) mg/dL Plasma Lactic Acid Alexey (0.7-2.0) mmol/L Calcium (8.4-10.2) mg/dL AST (17-59) U/L Total Protein (6.3-8.2) g/dL Albumin (3.5-5.0) g/dL Crossmatch See Detail 10/01/18 10/01/18 10/01/18 Range/Units 20:00 20:00 20:00 WBC (3.8-10.6) k/uL RBC (4.30-5.90) m/uL Hgb (13.0-17.5) gm/dL Hct (39.0-53.0) % Plt Count (150-450) k/uL Neutrophils # (Manual) (1.3-7.7) k/uL Lymphocytes # (Manual) (1.0-4.8) k/uL Metamyelocytes # (Man) (0) k/uL Myelocytes # (Manual) (0) k/uL Nucleated RBCs (0-0) /100 WBC PT 19.8 H (9.0-12.0) sec INR 2.0 H (<1.2) ABG pH (7.35-7.45) ABG pCO2 (35-45) mmHg ABG pO2 (83-108) mmHg ABG HCO3 (21-25) mmol/L ABG Total CO2 (19-24) mmol/L ABG O2 Saturation (94-97) % ABG Lactic Acid (0.5-1.6) mmol/L Chloride 111 H (98-107) mmol/L Carbon Dioxide 15 L (22-30) mmol/L BUN 37 H (9-20) mg/dL Creatinine 2.50 H (0.66-1.25) mg/dL Glucose 155 H (74-99) mg/dL POC Glucose (mg/dL) (75-99) mg/dL Plasma Lactic Acid Alexey 5.9 H* (0.7-2.0) mmol/L Calcium 6.7 L (8.4-10.2) mg/dL AST 85 H (17-59) U/L Total Protein 3.8 L (6.3-8.2) g/dL Albumin 1.9 L (3.5-5.0) g/dL Crossmatch 10/01/18 10/01/18 10/01/18 Range/Units 20:19 23:40 23:40 WBC (3.8-10.6) k/uL RBC (4.30-5.90) m/uL Hgb (13.0-17.5) gm/dL Hct (39.0-53.0) % Plt Count (150-450) k/uL Neutrophils # (Manual) (1.3-7.7) k/uL Lymphocytes # (Manual) (1.0-4.8) k/uL Metamyelocytes # (Man) (0) k/uL Myelocytes # (Manual) (0) k/uL Nucleated RBCs (0-0) /100 WBC PT (9.0-12.0) sec INR (<1.2) ABG pH 7.29 L (7.35-7.45) ABG pCO2 33 L (35-45) mmHg ABG pO2 131 H (83-108) mmHg ABG HCO3 16 L (21-25) mmol/L ABG Total CO2 17 L (19-24) mmol/L ABG O2 Saturation 98.5 H (94-97) % ABG Lactic Acid (0.5-1.6) mmol/L Chloride (98-107) mmol/L Carbon Dioxide (22-30) mmol/L BUN (9-20) mg/dL Creatinine (0.66-1.25) mg/dL Glucose (74-99) mg/dL POC Glucose (mg/dL) 178 H (75-99) mg/dL Plasma Lactic Acid Alexey 7.3 H* (0.7-2.0) mmol/L Calcium (8.4-10.2) mg/dL AST (17-59) U/L Total Protein (6.3-8.2) g/dL Albumin (3.5-5.0) g/dL Crossmatch 10/02/18 10/02/18 10/02/18 Range/Units 04:30 04:30 04:42 WBC (3.8-10.6) k/uL RBC 2.93 L (4.30-5.90) m/uL Hgb 9.5 L (13.0-17.5) gm/dL Hct 28.7 L (39.0-53.0) % Plt Count 137 L (150-450) k/uL Neutrophils # (Manual) 9.70 H (1.3-7.7) k/uL Lymphocytes # (Manual) 0.42 L (1.0-4.8) k/uL Metamyelocytes # (Man) (0) k/uL Myelocytes # (Manual) 0.10 H (0) k/uL Nucleated RBCs 1 H (0-0) /100 WBC PT (9.0-12.0) sec INR (<1.2) ABG pH 7.31 L (7.35-7.45) ABG pCO2 33 L (35-45) mmHg ABG pO2 77 L (83-108) mmHg ABG HCO3 17 L (21-25) mmol/L ABG Total CO2 18 L (19-24) mmol/L ABG O2 Saturation (94-97) % ABG Lactic Acid (0.5-1.6) mmol/L Chloride 112 H (98-107) mmol/L Carbon Dioxide 16 L (22-30) mmol/L BUN 40 H (9-20) mg/dL Creatinine 2.52 H (0.66-1.25) mg/dL Glucose 175 H (74-99) mg/dL POC Glucose (mg/dL) (75-99) mg/dL Plasma Lactic Acid Alexey (0.7-2.0) mmol/L Calcium 6.5 L (8.4-10.2) mg/dL AST (17-59) U/L Total Protein (6.3-8.2) g/dL Albumin (3.5-5.0) g/dL Crossmatch 10/02/18 10/02/18 10/02/18 Range/Units 04:45 12:25 12:48 WBC (3.8-10.6) k/uL RBC (4.30-5.90) m/uL Hgb (13.0-17.5) gm/dL Hct (39.0-53.0) % Plt Count (150-450) k/uL Neutrophils # (Manual) (1.3-7.7) k/uL Lymphocytes # (Manual) (1.0-4.8) k/uL Metamyelocytes # (Man) (0) k/uL Myelocytes # (Manual) (0) k/uL Nucleated RBCs (0-0) /100 WBC PT (9.0-12.0) sec INR (<1.2) ABG pH (7.35-7.45) ABG pCO2 (35-45) mmHg ABG pO2 (83-108) mmHg ABG HCO3 (21-25) mmol/L ABG Total CO2 (19-24) mmol/L ABG O2 Saturation (94-97) % ABG Lactic Acid 4.8 H* 2.9 H* (0.5-1.6) mmol/L Chloride (98-107) mmol/L Carbon Dioxide (22-30) mmol/L BUN (9-20) mg/dL Creatinine (0.66-1.25) mg/dL Glucose (74-99) mg/dL POC Glucose (mg/dL) 197 H (75-99) mg/dL Plasma Lactic Acid Alexey (0.7-2.0) mmol/L Calcium (8.4-10.2) mg/dL AST (17-59) U/L Total Protein (6.3-8.2) g/dL Albumin (3.5-5.0) g/dL Crossmatch Microbiology - Last 24 Hours (Table) 10/01/18 12:10 Gram Stain - Preliminary Abdomen Wound Culture - Preliminary Gram Neg Bacilli Gram Neg Bacilli#2 10/01/18 12:10 Anaerobic Culture - Preliminary Abdomen
[2018-10-02] MEDS: LEVOFLOXACIN 250MG-D5W PMX 250 MG in DEXTROSE/WATER 1 50ML.BAG IVPB SCH (14:00)
--- NOTE | 2018-10-02 14:00 | P.PN ---
Progress Note - Text Progress Note Date: 10/02/18 Presenting complaint: Perforated viscus Interval history: Patient admitted with acute abdomen. Found to have perforated acute diverticulitis. Taken to the OR earlier today. Had a sigmoid colectomy and has a drain in place with partial closure of the abdomen. NG tube in place. Bishop catheter in place Today-patient is in the ICU. Has a Bishop catheter with about 30mL urine output per hour and a SAMY drain in place with about 5-10 mL per shift. Has abdominal dressing. Patient required 5 L of fluid bolus last night for low blood pressure. Has been in a flutter. On IV Cardizem. Remains on the ventilator with FiO2 15 of PEEP of 10. Drips include levo fed, propofol, was on IV vasopressor held earlier today. Remains to NG tube to suction. Family's been in and out including the son's has been unwell has admitted in. Review of systems: Unable to obtain as patient is intubated Current medications reviewed that included: IV Cardizem, IV levo fed, IV Zosyn, IV Flagyl IV vasopressor that was held this morning.. On examination: VITAL SIGNS: 100.0, 114, 22, 119/54, 94% on the ventilator GENERAL: Laying in bed intubated. EYES: Pupils equal. Conjunctiva normal. HEENT: External appearance of nose and ears normal, NG tube in place. NECK: JVD unable to assess; masses not palpable. HEART: Heart sounds irregular , no edema. LUNGS: Respiratory rate increased; decreased breath sounds. ABDOMEN: left-sided colostomy, dressing in place with a SAMY drain, tender, no mass palpable. PSYCH: Sedated and unable to assessl. NEUROLOGICAL: Cranial nerves grossly intact; no facial asymmetry, pupils reactive Investigations reviewed in the clinical context White count 10.4, hemoglobin 9.5, platelets 137, lactic acid 4.8, potassium 4.5, BUN 40, creatinine 2.5 to calcium 6.5 Chest x-ray film personally reviewed by me shows some fluffiness of the vessels Assessment: -Acute perforated sigmoid diverticulitis with secondary peritonitis -Sigmoid colectomy with a resultant colostomy and a SAMY drain in place -Hypotensive and septic shock, requiring pressure support slow to respond -Acute renal failure, ATN from septic shock, slow to respond -Persistent atrial flutter, uncontrolled heart rate, slow to respond -Coronary artery disease with prior history of stent and bypass -Hyperlipidemia -Essential hypertension history of -Primary osteoarthritis -BPH -Hypothyroidism -Chronic gout -PTSD -Coumadin monitoring. Status post vitamin K and fresh frozen plasma. Plan: Patient to be is critically ill. NG tube to suction. On ventilator support. On IV levo fed, vasopressor has been held, IV propofol and IV antibiotics.. Patient just received some IV Lasix earlier. Patient is being followed by hole digger, cardiology, nephrology, general surgery
--- NOTE | 2018-10-02 16:29 | PN ---
PROGRESS NOTE DATE OF SERVICE: 10/02/2018 REASON FOR FOLLOWUP: Perforated sigmoid diverticulitis and secondary peritonitis. INTERVAL HISTORY: The patient is currently afebrile. The patient remains sedated and intubated on the vent, unable to provide any history. No other changes reported by the nursing staff. PHYSICAL EXAMINATION: Blood pressure is 100/63 with a pulse of 114, temperature 98. He is 94% on 50% FiO2. General description is an elderly male lying in bed in no distress. RESPIRATORY SYSTEM: Unlabored breathing. Clear to auscultation anteriorly. HEART: S1, S2. Regular rate and rhythm. ABDOMEN: Soft. Mildly distended. No guarding or rigidity. LABS: Hemoglobin 9.5, white count 10.4, BUN of 40, creatinine 2.52. DIAGNOSTIC IMPRESSION AND PLAN: Patient with perforated sigmoid diverticulitis with mucopurulent peritonitis. Patient at this time is covered with Zosyn. That will be continued for now while waiting for the cultures to finalize. Continue with supportive care. MMODL / IJN: [id number] /
[2018-10-02 17:04] LABS: Glucose,Whole Blood 200 mg/dL (75-99)
[2018-10-02] MEDS: INSULIN ASPART (NovoLOG) 100 UNIT/ML VIAL SQ SCH (17:25)
[2018-10-02 23:53] LABS: Glucose,Whole Blood 201 mg/dL (75-99)
[2018-10-03] MEDS: IPRATROPIUM-ALBUTEROL 3 ML NEB INHALATION SCH ×7 (00:19→23:02)
[2018-10-03] MEDS: PROPOFOL 1,000 MG in EMPTY BAG 1 BAG IV SCH ×8 (01:23→21:44)
[2018-10-03 05:23] LABS: ABG Base Excess -5.6 mmol/L; ABG HCO3 20 mmol/L (21-25); ABG Oxygen Saturation 95.3 % (94-97); ABG PCO2 36 mmHg (35-45); ABG PH 7.36 (7.35-7.45); ABG PO2 79 mmHg (83-108); ABG TCO2 21 mmol/L (19-24)
[2018-10-03] MEDS: NOREPINEPHRINE 32 MG in SODIUM CHLORIDE 0.9% 218 ML IV SCH (05:40)
[2018-10-03] MEDS: SODIUM CHLORIDE 0.9% 150 ML with VASOPRESSIN 60 UNIT IV SCH ×2 (05:45)
[2018-10-03] MEDS: SODIUM CHLORIDE 0.9% 1,000 ML IV SCH ×3 (05:45→16:59)
[2018-10-03] MEDS: PIPERACILLIN-TAZOBACTAM 3.375 GM in SODIUM CHLORIDE 0.9% 100 ML IVPB SCH ×3 (05:48→21:49)
[2018-10-03] MEDS: metroNIDAZOLE-NS PMX 500 MG in SALINE 1 100ML.BAG IVPB SCH ×5 (05:48→22:59)
[2018-10-03] MEDS: INSULIN ASPART (NovoLOG) 100 UNIT/ML VIAL SQ SCH ×4 (05:48→18:08)
[2018-10-03 06:08] LABS: Glucose,Whole Blood 187 mg/dL (75-99)
[2018-10-03 06:19] LABS: Basophils % (A) 0 %; Eosinophils % (A) 0 %; HCT 24.2 % (39.0-53.0); HGB 8.1 gm/dL (13.0-17.5); Lymphocytes # (A) 0.7 k/uL (1.0-4.8); Lymphocytes % (A) 5 %; MCH 32.2 pg (25.0-35.0); MCHC 33.6 g/dL (31.0-37.0); MCV 95.8 fL (80.0-100.0); Mean Platelet Volume 8.1; Monocytes # (A) 0.4 k/uL (0-1.0); Monocytes % (A) 3 %; Neutrophils % (A) 91 %; Platelet Count 138 k/uL (150-450); RBC 2.52 m/uL (4.30-5.90); RDW 15.3 % (11.5-15.5); WBC 14.2 k/uL (3.8-10.6)
[2018-10-03] MEDS: DILTIAZEM 125 MG in SODIUM CHLORIDE 0.9% 100 ML IV SCH (06:20)
[2018-10-03 06:29] LABS: Potassium 3.5 mmol/L (3.5-5.1)
[2018-10-03] MEDS: HYDROmorphone 1 MG/ML 1 ML SYRINGE IVP PRN ×3 (06:51→21:49)
[2018-10-03 07:00] LABS: Calcium 6.4 mg/dL (8.4-10.2)
[2018-10-03] MEDS ORDERED: Potassium Replacement Protocol 1 EACH MISC MISCELLANE PRN (07:40)
[2018-10-03] MEDS: CHLORHEXIDINE GLUCONATE 15 ML CUP MUCOUS MEM SCH ×2 (08:01→21:49)
[2018-10-03] MEDS: POTASSIUM CHLORIDE 20 MEQ in WATER FOR INJECTION 1 100ML.BAG IVPB SCH ×2 (08:01→09:59)
[2018-10-03] MEDS: HYDROCORTISONE SUCCINATE 100 MG/2 ML VIAL IV SCH (08:01)
--- NOTE | 2018-10-03 08:18 | XR ---
EXAMINATION TYPE: XR chest 1V portable DATE OF EXAM: 10/03/2018 COMPARISON: 10/02/2018 HISTORY: SOB, Follow Up FINDINGS: Indwelling tubes and catheters are unchanged. No change in bibasilar opacities. Stable appearance of the cardio-mediastinal structures at this time. Pleural effusion unchanged. IMPRESSION: 1. Stable portable chest. Clinical correlation and follow up until resolution is recommended.
--- NOTE | 2018-10-03 09:36 | PN ---
PROGRESS NOTE PULMONARY/CRITICAL CARE PROGRESS NOTE: DATE OF SERVICE: 10/03/2018 CRITICAL CARE TIME: 35 minutes. This is an 82-year-old gentleman who was admitted on September 30. He came in with small bowel obstruction and abdominal pain and was intubated on October 01. On that same day, he underwent sigmoid colectomy with colostomy for perforated diverticular abscess. The surgery was done by Dr. Woodward. He remains on mechanical ventilator. The patient has received 7.5 L of fluid since he has been here. Likely more than that now. He has also had 5 units of fresh frozen plasma and 2 units of PRBCs. The patient currently is on the volume assist-control mode rate of 20, tidal volume 500, FiO2 of 50%, PEEP of 10. Blood gases show pO2 of 79, pCO2 of 36, pH is 7.36. The patient is currently getting propofol 45 mcg/kg per minute, Levophed at 32.5 mcg/minutes, Cardizem drip of 5 mg an hour and 0.9 at 120 mL an hour. I have asked about feeding. He probably should be started on some TPN if they are not going to feed his gut. Other than that though, the patient is doing about the same. He is certainly not quite ready for spontaneous breathing trial requiring 33 mcg per minute of norepinephrine. Yesterday, he was both on norepinephrine and vasopressin. He is just on monotherapy now. He has had a pretty uneventful night according to the nurse. PHYSICAL EXAMINATION: VITAL SIGNS: Current vital signs include a temperature of 99 degrees, heart rate 96, respiratory rate 20, blood pressure 119/48, CVP 11 and saturations are 94%. Appears in no acute distress. Currently sedated. HEENT: Examination is grossly unremarkable. There is an orally placed endotracheal tube and NG tube. NECK: Supple. No adenopathy or thyromegaly. Neck veins are flat. CARDIOVASCULAR: Examination reveals irregular rhythm and rate. Heart rate about 100 beats per minute. S1, S2 normal. He is in atrial fibrillation. Heart sounds are distant. LUNGS: Reveal coarse expiratory rhonchi. No wheezes or crackles. Breath sounds are equal. ABDOMEN: Soft. Bowel sounds are heard. EXTREMITIES: Are intact. There is no cyanosis, clubbing, or edema. SKIN: Without rash. NEUROLOGIC: Examination could not be adequately assessed. Currently heavily sedated. MICROBIOLOGY: Microbiology is showing 2 different gram-negative bacilli from his wound cultures from the abdomen. They have not been identified as yet. LAB DATA: Lab data is showing a white count of 14.2, hemoglobin 8.1, hematocrit 24.2, platelet count 138,000. Sodium 141, potassium 3.5, chloride 112, CO2 of 19. Anion gap 10. BUN and creatinine were 51 and 2.90. X-RAY: Chest x-ray shows a properly placed endotracheal tube. There is probably bibasilar atelectasis and/or small effusions and/or infiltrates. MEDICATIONS: Medications are reviewed. He remains on appropriate medications. He is getting stress doses of corticosteroids. He is also on Levaquin and Zosyn. The vasopressin has been weaned off. Additional review of the medications has taken place. ASSESSMENT: 1. Postoperative day #2, status post sigmoid colectomy with colostomy for perforated diverticular abscess. 2. Routine postoperative ventilator management. 3. Paroxysmal atrial fibrillation. 4. Benign essential hypertension. 5. Hyperlipidemia. 6. Degenerative joint disease. 7. Hypothyroidism. PLAN: Currently, the patient is just on one pressor. He is on norepinephrine at 32.5, nearly 33 mcg/minute. He remains on Cardizem for atrial fibrillation. He is sedated with propofol. Not quite ready for daily interruption of sedation or spontaneous breathing trial. His vent settings are reviewed. We should come up with the nutritional plan for him likely TPN. We will continue to follow. Prognosis is guarded. Medications, labs, problem list and x-rays are all reviewed. Prognosis is very guarded. CRITICAL CARE TIME: 35 minutes. MMAMANL / JOSEN: [id number] /
--- NOTE | 2018-10-03 09:56 | P.PN ---
Subjective Patient is seen in follow-up for acute kidney injury on chronic kidney disease. Patient has chronic kidney disease stage III with baseline creatinine in the range of 1.1-1.3. Patient presented with abdominal pain and was noted to have perforated diverticulitis with fecal peritonitis. He underwent exploratory laparotomy and abscess drainage in October 01. He is currently intubated and sedated. He is maintained on 30 mics of Levophed. He is off vasopressin. Urine output has been in the range of 50-75 mL an hour. He remains on Cardizem drip for atrial fibrillation. Vital signs are stable. General: The patient appeared well nourished and normally developed. HEENT: Head exam is unremarkable. Neck is without jugular venous distension. I ntubated. LUNGS: Breath sounds decreased. HEART: Irregular rate and rhythm. ABDOMEN: Abdominal exam reveals decreased bowel sounds. No active drainage noted. EXTREMITITES: 1+ edema. Objective - Vital Signs Vital signs: Vital Signs Temp 99.9 F H 10/03/18 08:00 Pulse 101 H 10/03/18 09:01 Resp 20 10/03/18 09:01 BP 114/59 10/03/18 09:01 Pulse Ox 93 L 10/03/18 09:01 Intake & Output 10/02/18 10/03/18 10/03/18 18:59 06:59 18:59 Intake Total 5912.718 4837.757 533.413 Output Total 645 635 575 Balance 3377.981 9706.757 -41.587 Weight 131.8 kg Intake: IV 1452 1392 478 Piperacillin-Tazobactam 3 200 100 .375 gm In Sodium Chloride 0.9% 100 ml @ 25 mls/hr IVPB Q8H [facility] Rx#: [id number] Sodium Chloride 0.9% 1, 1080 1320 360 000 ml @ 120 mls/hr IV . Q8H20M [facility] Rx#:[id number] metroNIDAZOLE-NS PMX 500 100 mg In Saline 1 100ml.bag @ 100 mls/hr IVPB Q6HR [facility] Rx#:[id number] pressure bag 72 72 18 Intake, IV Titration 447.614 547.757 55.413 Amount Diltiazem 125 mg In 0 106 Sodium Chloride 0.9% 100 ml @ 5 MG/HR 5 mls/hr IV .Q24H [facility] Rx#:[id number] Norepinephrine 32 mg In 189.310 141.757 55.413 Sodium Chloride 0.9% 218 ml @ 0.05 MCG/KG/MIN 2. 658 mls/hr IV .Q24H [facility] Rx#:[id number] Propofol 1,000 mg In 199.067 300 Empty Bag 1 bag @ Titrate IV .Q0M [facility] Rx#: [id number] Sodium Chloride 0.9% 150 59.237 ml @ 0.03 UNITS/MIN 4.59 mls/hr IV .Q24H [facility] with Vasopressin 60 unit Rx#: [id number] Output: Gastric Drainage 350 Drainage 0 0 Right Abdomen 0 0 Urine 645 635 225 Other: Voiding Method Indwelling Catheter Indwelling Catheter Indwelling Catheter ABP, PAP, CO, CI - Last Documented Arterial Blood Pressure 115/47 - Labs CBC & Chem 7: 10/03/18 06:05 10/03/18 06:05 Labs: Abnormal Lab Results - Last 24 Hours (Table) 10/02/18 10/02/18 10/02/18 Range/Units 12:25 12:48 17:01 WBC (3.8-10.6) k/uL RBC (4.30-5.90) m/uL Hgb (13.0-17.5) gm/dL Hct (39.0-53.0) % Plt Count (150-450) k/uL Neutrophils # (1.3-7.7) k/uL Lymphocytes # (1.0-4.8) k/uL ABG pO2 (83-108) mmHg ABG HCO3 (21-25) mmol/L ABG Lactic Acid 2.9 H* (0.5-1.6) mmol/L Chloride (98-107) mmol/L Carbon Dioxide (22-30) mmol/L BUN (9-20) mg/dL Creatinine (0.66-1.25) mg/dL Glucose (74-99) mg/dL POC Glucose (mg/dL) 197 H 200 H (75-99) mg/dL Calcium (8.4-10.2) mg/dL 10/02/18 10/03/18 10/03/18 Range/Units 23:50 05:18 06:05 WBC 14.2 H (3.8-10.6) k/uL RBC 2.52 L (4.30-5.90) m/uL Hgb 8.1 L (13.0-17.5) gm/dL Hct 24.2 L (39.0-53.0) % Plt Count 138 L (150-450) k/uL Neutrophils # 13.0 H (1.3-7.7) k/uL Lymphocytes # 0.7 L (1.0-4.8) k/uL ABG pO2 79 L (83-108) mmHg ABG HCO3 20 L (21-25) mmol/L ABG Lactic Acid (0.5-1.6) mmol/L Chloride (98-107) mmol/L Carbon Dioxide (22-30) mmol/L BUN (9-20) mg/dL Creatinine (0.66-1.25) mg/dL Glucose (74-99) mg/dL POC Glucose (mg/dL) 201 H (75-99) mg/dL Calcium (8.4-10.2) mg/dL 10/03/18 10/03/18 Range/Units 06:05 06:05 WBC (3.8-10.6) k/uL RBC (4.30-5.90) m/uL Hgb (13.0-17.5) gm/dL Hct (39.0-53.0) % Plt Count (150-450) k/uL Neutrophils # (1.3-7.7) k/uL Lymphocytes # (1.0-4.8) k/uL ABG pO2 (83-108) mmHg ABG HCO3 (21-25) mmol/L ABG Lactic Acid (0.5-1.6) mmol/L Chloride 112 H (98-107) mmol/L Carbon Dioxide 19 L (22-30) mmol/L BUN 51 H (9-20) mg/dL Creatinine 2.90 H (0.66-1.25) mg/dL Glucose 175 H (74-99) mg/dL POC Glucose (mg/dL) 187 H (75-99) mg/dL Calcium 6.4 L* (8.4-10.2) mg/dL Microbiology - Last 24 Hours (Table) 10/02/18 00:14 Blood Culture - Preliminary Blood No Growth after 24 hours 10/02/18 00:14 Blood Culture - Preliminary Blood No Growth after 24 hours 10/01/18 12:10 Gram Stain - Preliminary Abdomen Wound Culture - Preliminary Gram Neg Bacilli Gram Neg Bacilli#2 Assessment and Plan Plan: Assessment: 1. Acute kidney injury secondary to ATN secondary to septic shock. Creatinine 2.9 today. 2. Chronic kidney disease stage III secondary to nephrosclerosis with basic creatinine in the range of 1.1-1.3. 3. Septic shock secondary to perforated diverticulitis with fecal peritonitis. Status post exploratory laparotomy with sigmoid colectomy with end colostomy and drainage of abscess on October 01. Maintain on IV antibiotics. 4. A. fib with RVR maintain on Cardizem drip. 5. Metabolic acidosis secondary to acute kidney injury as well as IV fluids. Better. 6. Volume overload. Plan: Decrease rate of normal saline to 75 mL an hour. Hep-Lock once TPN is started. Replace potassium. 40 mEq today. Wean vasopressors. No urgency replacement therapy at this time. Patient is also currently hemodynamically unstable. Continue to assess on day-to-day basis. If urine output tapers, may repeat dose of IV Lasix.
--- NOTE | 2018-10-03 11:40 | P.PN ---
<NeftaliLeonor Randhawa - Last Filed: 10/03/18 11:37> Subjective Progress Note Date: 10/03/18 CHIEF COMPLAINT: Abdominal pain HISTORY OF PRESENT ILLNESS: Patient is status post exploratory laparotomy, sigmoid colectomy with end colostomy, and drainage of abscess secondary to perforated diverticulitis. Patient remains on mechanical ventilation in the ICU. He remains on vasopressor support, [place] [place] with small amount of stool present. WBC 14.2. Hemoglobin 8.1. PHYSICAL EXAM: VITAL SIGNS: Reviewed. GENERAL: Well-developed. Remains on mechanical ventilation. HEENT: ET noted. NG to LIS with bilious drainage. No sclera icterus. Extraocular movements grossly intact. Moist buccal mucosa. Head is atraumatic, normocephalic. ABDOMEN: Dressing to abdomen CDI. Packing to distal end of incision noted. No necrotic tissue. Ostomy intact with stool noted. Majority of stomy appears to be ischemic. Small area at distal region of stoma that is red and appears more viable. NEUROLOGIC: Unable to assess secondary to mechanical ventilation ASSESSMENT: 1. Perforated diverticulitis, status post exploratory laparotomy, sigmoid colectomy with end colostomy, and drainage of abscess 2. Sepsis 3. Peritonitis PLAN: 1. Ventilator management per Dr. Ridley 2. Wean vasopressors as tolerated 3. Continue NG to LIS 4. Agreeable to begin TPN today Nurse practitioner note has been reviewed by physician. Signing provider agrees with the documented findings, assessment, and plan of care. Objective - Vital Signs Vital signs: Vital Signs Temp 99.9 F H 10/03/18 08:00 Pulse 94 10/03/18 11:33 Resp 20 10/03/18 10:00 BP 117/58 10/03/18 09:15 Pulse Ox 93 L 10/03/18 10:00 Intake & Output 10/02/18 10/03/18 10/03/18 18:59 06:59 18:59 Intake Total 9237.979 6035.757 845.775 Output Total 645 635 720 Balance 6532.553 0025.757 125.775 Weight 131.8 kg 131.8 kg Intake: IV 1452 1392 690 Piperacillin-Tazobactam 3 200 100 .375 gm In Sodium Chloride 0.9% 100 ml @ 25 mls/hr IVPB Q8H [facility] Rx#: [id number] Potassium Chloride 20 meq 200 In Water For Injection 1 100ml.bag @ 50 mls/hr IVPB Q2H [facility] Rx#: [id number] Sodium Chloride 0.9% 1, 1080 1320 360 000 ml @ 75 mls/hr IV . [id number] [facility] Rx#:[id number] metroNIDAZOLE-NS PMX 500 100 mg In Saline 1 100ml.bag @ 100 mls/hr IVPB Q6HR [facility] Rx#:[id number] pressure bag 72 72 30 Intake, IV Titration 447.614 547.757 155.775 Amount Diltiazem 125 mg In 0 106 Sodium Chloride 0.9% 100 ml @ 5 MG/HR 5 mls/hr IV .Q24H [facility] Rx#:[id number] Norepinephrine 32 mg In 189.310 141.757 59.692 Sodium Chloride 0.9% 218 ml @ 0.05 MCG/KG/MIN 2. 658 mls/hr IV .Q24H [facility] Rx#:[id number] Propofol 1,000 mg In 199.067 300 96.083 Empty Bag 1 bag @ Titrate IV .Q0M [facility] Rx#: [id number] Sodium Chloride 0.9% 150 59.237 ml @ 0.03 UNITS/MIN 4.59 mls/hr IV .Q24H [facility] with Vasopressin 60 unit Rx#: [id number] Output: Gastric Drainage 350 Drainage 0 0 Right Abdomen 0 0 Urine 645 635 370 Other: Voiding Method Indwelling Catheter Indwelling Catheter Indwelling Catheter ABP, PAP, CO, CI - Last Documented Arterial Blood Pressure 137/50 - Labs CBC & Chem 7: 10/03/18 06:05 10/03/18 06:05 Labs: Abnormal Lab Results - Last 24 Hours (Table) 10/02/18 10/02/18 10/02/18 Range/Units 12:25 12:48 17:01 WBC (3.8-10.6) k/uL RBC (4.30-5.90) m/uL Hgb (13.0-17.5) gm/dL Hct (39.0-53.0) % Plt Count (150-450) k/uL Neutrophils # (1.3-7.7) k/uL Lymphocytes # (1.0-4.8) k/uL ABG pO2 (83-108) mmHg ABG HCO3 (21-25) mmol/L ABG Lactic Acid 2.9 H* (0.5-1.6) mmol/L Chloride (98-107) mmol/L Carbon Dioxide (22-30) mmol/L BUN (9-20) mg/dL Creatinine (0.66-1.25) mg/dL Glucose (74-99) mg/dL POC Glucose (mg/dL) 197 H 200 H (75-99) mg/dL Calcium (8.4-10.2) mg/dL 10/02/18 10/03/18 10/03/18 Range/Units 23:50 05:18 06:05 WBC 14.2 H (3.8-10.6) k/uL RBC 2.52 L (4.30-5.90) m/uL Hgb 8.1 L (13.0-17.5) gm/dL Hct 24.2 L (39.0-53.0) % Plt Count 138 L (150-450) k/uL Neutrophils # 13.0 H (1.3-7.7) k/uL Lymphocytes # 0.7 L (1.0-4.8) k/uL ABG pO2 79 L (83-108) mmHg ABG HCO3 20 L (21-25) mmol/L ABG Lactic Acid (0.5-1.6) mmol/L Chloride (98-107) mmol/L Carbon Dioxide (22-30) mmol/L BUN (9-20) mg/dL Creatinine (0.66-1.25) mg/dL Glucose (74-99) mg/dL POC Glucose (mg/dL) 201 H (75-99) mg/dL Calcium (8.4-10.2) mg/dL 10/03/18 10/03/18 Range/Units 06:05 06:05 WBC (3.8-10.6) k/uL RBC (4.30-5.90) m/uL Hgb (13.0-17.5) gm/dL Hct (39.0-53.0) % Plt Count (150-450) k/uL Neutrophils # (1.3-7.7) k/uL Lymphocytes # (1.0-4.8) k/uL ABG pO2 (83-108) mmHg ABG HCO3 (21-25) mmol/L ABG Lactic Acid (0.5-1.6) mmol/L Chloride 112 H (98-107) mmol/L Carbon Dioxide 19 L (22-30) mmol/L BUN 51 H (9-20) mg/dL Creatinine 2.90 H (0.66-1.25) mg/dL Glucose 175 H (74-99) mg/dL POC Glucose (mg/dL) 187 H (75-99) mg/dL Calcium 6.4 L* (8.4-10.2) mg/dL Microbiology - Last 24 Hours (Table) 10/01/18 12:10 Gram Stain - Final Abdomen Wound Culture - Final Escherichia coli Pseudomonas aeruginosa 10/02/18 00:14 Blood Culture - Preliminary Blood No Growth after 24 hours 10/02/18 00:14 Blood Culture - Preliminary Blood No Growth after 24 hours <Sandro Torrez - Last Filed: 10/03/18 17:02> Subjective Patient remains on ventilator. Still with adequate oxygenation and descending u rine output. Levophed requirements have been decreased by about half today. Patient's ostomy remains dusky in color. Continue weaning pressors. We'll follow. Discussed case with the patient's son. Objective - Vital Signs Vital signs: Vital Signs Temp 98.4 F 10/03/18 12:00 Pulse 88 10/03/18 15:48 Resp 22 10/03/18 15:00 BP 116/57 10/03/18 14:30 Pulse Ox 94 L 10/03/18 15:00 Intake & Output 10/02/18 10/03/18 10/03/18 18:59 06:59 18:59 Intake Total 1182.052 7069.757 1475.172 Output Total 031 677 8993 Balance 7494.668 0349.757 455.172 Weight 131.8 kg 131.8 kg Intake: IV 1452 1392 1164 Levofloxacin 250Mg-D5w 50 Pmx 250 mg In Dextrose/ Water 1 50ml.bag @ 50 mls /hr IVPB Q24H [facility] Rx#: [id number] Piperacillin-Tazobactam 3 200 100 .375 gm In Sodium Chloride 0.9% 100 ml @ 25 mls/hr IVPB Q8H [facility] Rx#: [id number] Potassium Chloride 20 meq 200 In Water For Injection 1 100ml.bag @ 50 mls/hr IVPB Q2H [facility] Rx#: [id number] Sodium Chloride 0.9% 1, 1080 1320 660 000 ml @ 75 mls/hr IV . [id number] [facility] Rx#:[id number] metroNIDAZOLE-NS PMX 500 100 100 mg In Saline 1 100ml.bag @ 100 mls/hr IVPB Q6HR [facility] Rx#:[id number] pressure bag 72 72 54 Intake, IV Titration 447.614 547.757 311.172 Amount Diltiazem 125 mg In 0 106 Sodium Chloride 0.9% 100 ml @ 5 MG/HR 5 mls/hr IV .Q24H [facility] Rx#:[id number] Norepinephrine 32 mg In 189.310 141.757 115.089 Sodium Chloride 0.9% 218 ml @ 0.05 MCG/KG/MIN 2. 658 mls/hr IV .Q24H [facility] Rx#:[id number] Propofol 1,000 mg In 199.067 300 196.083 Empty Bag 1 bag @ Titrate IV .Q0M [facility] Rx#: [id number] Sodium Chloride 0.9% 150 59.237 ml @ 0.03 UNITS/MIN 4.59 mls/hr IV .Q24H [facility] with Vasopressin 60 unit Rx#: [id number] Output: Gastric Drainage 350 Drainage 0 0 Right Abdomen 0 0 Urine 645 635 670 Other: Voiding Method Indwelling Catheter Indwelling Catheter Indwelling Catheter ABP, PAP, CO, CI - Last Documented Arterial Blood Pressure 103/44 - Labs CBC & Chem 7: 10/03/18 06:05 10/03/18 14:39 Labs: Abnormal Lab Results - Last 24 Hours (Table) 10/02/18 10/02/18 10/03/18 Range/Units 17:01 23:50 05:18 WBC (3.8-10.6) k/uL RBC (4.30-5.90) m/uL Hgb (13.0-17.5) gm/dL Hct (39.0-53.0) % Plt Count (150-450) k/uL Neutrophils # (1.3-7.7) k/uL Lymphocytes # (1.0-4.8) k/uL ABG pO2 79 L (83-108) mmHg ABG HCO3 20 L (21-25) mmol/L Chloride (98-107) mmol/L Carbon Dioxide (22-30) mmol/L BUN (9-20) mg/dL Creatinine (0.66-1.25) mg/dL Glucose (74-99) mg/dL POC Glucose (mg/dL) 200 H 201 H (75-99) mg/dL Calcium (8.4-10.2) mg/dL Ionized Calcium [place] (4.5-5.3) mg/dL AST (17-59) U/L ALT (21-72) U/L Total Protein (6.3-8.2) g/dL Albumin (3.5-5.0) g/dL Triglycerides (<150) mg/dL 10/03/18 10/03/18 10/03/18 Range/Units 06:05 06:05 06:05 WBC 14.2 H (3.8-10.6) k/uL RBC 2.52 L (4.30-5.90) m/uL Hgb 8.1 L (13.0-17.5) gm/dL Hct 24.2 L (39.0-53.0) % Plt Count 138 L (150-450) k/uL Neutrophils # 13.0 H (1.3-7.7) k/uL Lymphocytes # 0.7 L (1.0-4.8) k/uL ABG pO2 (83-108) mmHg ABG HCO3 (21-25) mmol/L Chloride 112 H (98-107) mmol/L Carbon Dioxide 19 L (22-30) mmol/L BUN 51 H (9-20) mg/dL Creatinine 2.90 H (0.66-1.25) mg/dL Glucose 175 H (74-99) mg/dL POC Glucose (mg/dL) 187 H (75-99) mg/dL Calcium 6.4 L* (8.4-10.2) mg/dL Ionized Calcium [place] (4.5-5.3) mg/dL AST (17-59) U/L ALT (21-72) U/L Total Protein (6.3-8.2) g/dL Albumin (3.5-5.0) g/dL Triglycerides (<150) mg/dL 10/03/18 10/03/18 10/03/18 Range/Units 11:55 14:39 14:39 WBC (3.8-10.6) k/uL RBC (4.30-5.90) m/uL Hgb (13.0-17.5) gm/dL Hct (39.0-53.0) % Plt Count (150-450) k/uL Neutrophils # (1.3-7.7) k/uL Lymphocytes # (1.0-4.8) k/uL ABG pO2 (83-108) mmHg ABG HCO3 (21-25) mmol/L Chloride 114 H (98-107) mmol/L Carbon Dioxide 19 L (22-30) mmol/L BUN 51 H (9-20) mg/dL Creatinine 2.73 H (0.66-1.25) mg/dL Glucose 177 H (74-99) mg/dL POC Glucose (mg/dL) 188 H (75-99) mg/dL Calcium 6.6 L (8.4-10.2) mg/dL Ionized Calcium [place] (4.5-5.3) mg/dL AST 202 H (17-59) U/L ALT 241 H (21-72) U/L Total Protein 4.1 L (6.3-8.2) g/dL Albumin 2.0 L (3.5-5.0) g/dL Triglycerides 436 H (<150) mg/dL 10/03/18 Range/Units 15:52 WBC (3.8-10.6) k/uL RBC (4.30-5.90) m/uL Hgb (13.0-17.5) gm/dL Hct (39.0-53.0) % Plt Count (150-450) k/uL Neutrophils # (1.3-7.7) k/uL Lymphocytes # (1.0-4.8) k/uL ABG pO2 (83-108) mmHg ABG HCO3 (21-25) mmol/L Chloride (98-107) mmol/L Carbon Dioxide (22-30) mmol/L BUN (9-20) mg/dL Creatinine (0.66-1.25) mg/dL Glucose (74-99) mg/dL POC Glucose (mg/dL) (75-99) mg/dL Calcium (8.4-10.2) mg/dL Ionized Calcium [place] 4.3 L (4.5-5.3) mg/dL AST (17-59) U/L ALT (21-72) U/L Total Protein (6.3-8.2) g/dL Albumin (3.5-5.0) g/dL Triglycerides (<150) mg/dL Microbiology - Last 24 Hours (Table) 10/01/18 12:10 Anaerobic Culture - Preliminary Abdomen 10/01/18 12:10 Gram Stain - Final Abdomen Wound Culture - Final Escherichia coli Pseudomonas aeruginosa 10/02/18 00:14 Blood Culture - Preliminary Blood No Growth after 24 hours 10/02/18 00:14 Blood Culture - Preliminary Blood No Growth after 24 hours
--- NOTE | 2018-10-03 11:48 | PN ---
PROGRESS NOTE Mr. Martinez underwent a bowel laparotomy and colostomy yesterday after a perforated viscus. He is hemodynamically unstable still, but better than yesterday. He is on over 20 mcg of Levophed at this time. Urine output has been fairly decent. He is maintaining sinus rhythm. Cardiac-mckeon, we will continue his current medications and supportive care managed by Dr. Ridley. Blood pressure is 110/70, on over 20 mcg of Levophed, S1-S2 heard normally, short systolic murmur noted. Lungs reveal ventilated assisted breaths. Lower extremity edema is evident. No new suggestions from a cardiac standpoint. MMODL / IJN: [id number] /
[2018-10-03 12:00] LABS: Glucose,Whole Blood 188 mg/dL (75-99)
[2018-10-03] MEDS: LEVOFLOXACIN 250MG-D5W PMX 250 MG in DEXTROSE/WATER 1 50ML.BAG IVPB SCH (14:27)
[2018-10-03 15:07] LABS: Magnesium 2.1 mg/dL (1.6-2.3); Phosphorus 4.4 mg/dL (2.5-4.5)
[2018-10-03 15:34] LABS: Calcium 6.6 mg/dL (8.4-10.2); Potassium 3.8 mmol/L (3.5-5.1); Total Bilirubin 0.7 mg/dL (0.2-1.3); Total Protein 4.1 g/dL (6.3-8.2)
[2018-10-03] MEDS ORDERED: MVI, ADULT NO.4 WITH VIT K 10 ML, TRACE (CONC-1ML/DOSE) 1 ML in AMINO ACID 4.25%-D10W+L... IV SCH ×3 (16:00)
[2018-10-03 18:02] LABS: Glucose,Whole Blood 205 mg/dL (75-99)
--- NOTE | 2018-10-03 20:07 | P.PN ---
Progress Note - Text Progress Note Date: 10/03/18 Presenting complaint: Perforated viscus Interval history: Patient admitted with acute abdomen. Found to have perforated acute diverticulitis. . Had a sigmoid colectomy and has a drain in place with partial closure of the abdomen. NG tube in place. Bishop catheter in place Today-. Remains in the ICU. Drips include norepinephrine and propofol and IV Cardizem. Telemetry shows sinus rhythm. NG tube remains in place. Intubated. On the ventilator with FiO2 50 and PEEP of 10. Patient is admitted. Bishop catheter in place. Review of systems: Unable to obtain as patient is intubated Current medications reviewed that included: IV Cardizem, IV Flagyl, IV norepinephrine, IV Zosyn On examination: VITAL SIGNS: r 98.4, 92, 20, 128/60, 95% on the ventilator GENERAL: Laying in bed intubated. EYES: Pupils equal. Conjunctiva normal. HEENT: External appearance of nose and ears normal, NG tube in place. NECK: JVD unable to assess; masses not palpable. HEART: Heart sounds irregular , no edema. LUNGS: Respiratory rate increased; decreased breath sounds. ABDOMEN: left-sided colostomy with very small amount of stool, dressing in place with a SAMY drain, tender, no mass palpable. PSYCH: Sedated and unable to assessl. NEUROLOGICAL: Cranial nerves grossly intact; no facial asymmetry, pupils reactive Investigations reviewed in the clinical context White count 14.2, hemoglobin 8.1, platelet is 138, potassium 3.5, PND 51, creatinine 2.90 AST 202 LT 241 Assessment: -Acute perforated sigmoid diverticulitis with secondary peritonitis -Sigmoid colectomy with a resultant colostomy and a SAMY drain in place -Hypotensive and septic shock, requiring pressure support slow to respond -Acute renal failure, ATN from septic shock, slow to respond -Persistent atrial flutter,, heart rate better controlled -Coronary artery disease with prior history of stent and bypass -Hyperlipidemia -Essential hypertension history of -Primary osteoarthritis -BPH -Hypothyroidism -Chronic gout -PTSD -Coumadin monitoring. Status post vitamin K and fresh frozen plasma. Plan: Prognosis remains guarded. Remains the ICU.")5,4,". NG tube remains in place. Strict I's and O's. Currently no family the bedside. Follow with my colleagues
--- NOTE | 2018-10-03 20:32 | PN ---
PROGRESS NOTE DATE OF SERVICE: 10/03/2018. REASON FOR FOLLOWUP: Perforated sigmoid diverticulitis with abscess. INTERVAL HISTORY: The patient is currently afebrile. The patient still requiring pressor support, currently on 20 mics of Levophed. He did have a low-grade fever of 100.2 this morning. The patient remains sedated on the vent. FiO2 is currently stable. Unable to provide any history. PHYSICAL EXAMINATION: Blood pressure 103/44, pulse of 88, temperature 98. He is 94% on 50% FiO2. General description is an elderly male, lying in bed, in no distress. Respiratory system unlabored breathing. Clear to auscultation anteriorly. Heart S1, S2. Regular rate and rhythm. Abdomen soft. No tenderness. LABS: Hemoglobin 8.1, white count 14.2, BUN of 51, creatinine 0.73. Abdominal culture with E coli and Pseudomonas aeruginosa. DIAGNOSTIC IMPRESSION AND PLAN: Patient with acute suppurative sigmoid diverticulitis perforation with abdominal abscess status post drainage. The patient, at this time to continue with Zosyn and Flagyl. Overall prognosis remains to be is guarded. Continue supportive care condition. MMODL / IJN: [id number] /
[2018-10-04] MEDS ORDERED: IPRATROPIUM-ALBUTEROL 3 ML NEB ONE ×2
[2018-10-04] MEDS: INSULIN ASPART (NovoLOG) 100 UNIT/ML VIAL SQ SCH ×5 (00:31→23:22)
[2018-10-04 03:47] LABS: Glucose,Whole Blood 210 mg/dL (75-99)
[2018-10-04 04:54] LABS: Ionized Calcium 4.5 mg/dL (4.5-5.3)
[2018-10-04] MEDS: IPRATROPIUM-ALBUTEROL 3 ML NEB INHALATION SCH ×5 (05:00→19:03)
[2018-10-04 05:03] LABS: Calcium 6.8 mg/dL (8.4-10.2); Magnesium 2.3 mg/dL (1.6-2.3); Phosphorus 3.8 mg/dL (2.5-4.5); Potassium 3.6 mmol/L (3.5-5.1); Total Bilirubin 0.7 mg/dL (0.2-1.3); Total Protein 4.1 g/dL (6.3-8.2)
[2018-10-04] MEDS: HYDROmorphone 1 MG/ML 1 ML SYRINGE IVP PRN (05:47)
[2018-10-04] MEDS: PROPOFOL 1,000 MG in EMPTY BAG 1 BAG IV SCH ×6 (05:49→22:04)
[2018-10-04 05:56] LABS: Glucose,Whole Blood 196 mg/dL (75-99)
[2018-10-04] MEDS: metroNIDAZOLE-NS PMX 500 MG in SALINE 1 100ML.BAG IVPB SCH ×4 (06:02→23:22)
[2018-10-04] MEDS: NOREPINEPHRINE 32 MG in SODIUM CHLORIDE 0.9% 218 ML IV SCH (06:55)
[2018-10-04 07:46] LABS: ABG Base Excess -3.3 mmol/L; ABG HCO3 22 mmol/L (21-25); ABG Oxygen Saturation 96.7 % (94-97); ABG PCO2 35 mmHg (35-45); ABG PO2 81 mmHg (83-108); ABG TCO2 23 mmol/L (19-24); Allen Test Performed? no
[2018-10-04 07:55] LABS: HCT 21.3 % (39.0-53.0); MCHC 32.7 g/dL (31.0-37.0); MCV 98.1 fL (80.0-100.0); Macrocytosis Slight; Mean Platelet Volume 8.9; Platelet Count 114 k/uL (150-450); RBC 2.17 m/uL (4.30-5.90); RDW 15.6 % (11.5-15.5); WBC 16.6 k/uL (3.8-10.6)
--- NOTE | 2018-10-04 08:50 | XR ---
EXAMINATION TYPE: XR chest 1V portable DATE OF EXAM: 10/04/2018 COMPARISON: 10/03/2018 INDICATION: Tube placement TECHNIQUE: Single frontal view of the chest is obtained. FINDINGS: The heart size is mildly prominent. The pulmonary vasculature is normal. The lungs are clear. Endotracheal tube tip is above the lisbeth. Nasogastric tube transverses the thorax. EKG leads overlie the chest. A catheter may be present within the right upper quadrant abdomen. This could be a monito r lead external to the patient as well. This is stable in position. IMPRESSION: 1. No acute pulmonary process. 2. Lines and catheters discussed above.
[2018-10-04] MEDS: HYDROCORTISONE SUCCINATE 100 MG/2 ML VIAL IV SCH (09:03)
[2018-10-04] MEDS: CHLORHEXIDINE GLUCONATE 15 ML CUP MUCOUS MEM SCH ×2 (09:04→20:35)
[2018-10-04] MEDS: PIPERACILLIN-TAZOBACTAM 3.375 GM in SODIUM CHLORIDE 0.9% 100 ML IVPB SCH ×3 (09:04→23:22)
--- NOTE | 2018-10-04 09:05 | PN ---
PROGRESS NOTE Mr. Martinez is doing better clinically. He is on the lower dose of Levophed at only 12 mcg. He is maintaining sinus rhythm. Has excellent urine output. Hemodynamically stable. Bowel sounds are not evident. Overall, he is doing better. Blood pressure is 118/70, pulse rate is 70, sinus. S1, S2 heard normally, short systolic murmur noted. Lungs reveal improved air entry with the ventilator assisted breath sounds. Abdomen is soft. Bowel sounds are absent. From a cardiac standpoint, I would recommend that we continue current medications and supportive care. No intervention is necessary. Patient is maintaining a sinus rhythm. Anticoagulation is deferred in view of recent extensive surgery which included perforation of viscus and now has a colostomy. MMODL / IJN: [id number] /
[2018-10-04] MEDS ORDERED: POTASSIUM CHLORIDE 10 MEQ in WATER FOR INJECTION 1 100ML.BAG IVPB ONE (09:30)
[2018-10-04] MEDS ORDERED: POTASSIUM CHLORIDE 10 MEQ in WATER FOR INJECTION 1 100ML.BAG IVPB STA (09:39)
--- NOTE | 2018-10-04 09:51 | P.PN ---
Subjective Patient is seen in follow-up for acute kidney injury on chronic kidney disease. Patient has chronic kidney disease stage III with baseline creatinine in the range of 1.1-1.3. Patient presented with abdominal pain and was noted to have perforated diverticulitis with fecal peritonitis. He underwent exploratory laparotomy and abscess drainage in October 01. He is currently intubated and sedated. He is maintained on 6 mics of Levophed. He is off vasopressin. Urine output has been in the range of 50-100 mL an hour. He is off Cardizem drip now. Vital signs are stable. Remains on vasopressor support. General: The patient appeared well nourished and normally developed. HEENT: Head exam is unremarkable. Neck is without jugular venous distension. Intubated. LUNGS: Breath sounds decreased. HEART: Irregular rate and rhythm. ABDOMEN: Abdominal exam reveals decreased bowel sounds. No active drainage noted. EXTREMITITES: 1+ edema. Objective - Vital Signs Vital signs: Vital Signs Temp 98.4 F 10/04/18 08:00 Pulse 77 10/04/18 09:15 Resp 7 L 10/04/18 09:15 BP 107/50 10/04/18 09:15 Pulse Ox 93 L 10/04/18 09:15 Intake & Output 10/03/18 10/04/18 10/04/18 18:59 06:59 18:59 Intake Total 4937.763 6357.091 428.33 Output Total 1430 1029 265 Balance 522.620 102.091 163.33 Weight 131.8 kg 134.2 kg Intake: IV 1363 860 318 Levofloxacin 250Mg-D5w 50 25 Pmx 250 mg In Dextrose/ Water 1 50ml.bag @ 50 mls /hr IVPB Q24H [facility] Rx#: [id number] Mvi, Adult No.4 with Vit 150 150 K 10 ml Trace (Conc-1Ml/ Dose) 1 ml In Amino Acid 4.25%-D10w+Lytes*E* 1,000 ml @ 50 mls/hr IV . [id number] [facility] Rx#:[id number] Piperacillin-Tazobactam 3 100 .375 gm In Sodium Chloride 0.9% 100 ml @ 25 mls/hr IVPB Q12H [facility] Rx# :[id number] Piperacillin-Tazobactam 3 100 50 .375 gm In Sodium Chloride 0.9% 100 ml @ 25 mls/hr IVPB Q8H [facility] Rx#: [id number] Potassium Chloride 20 meq 200 In Water For Injection 1 100ml.bag @ 50 mls/hr IVPB Q2H [facility] Rx#: [id number] Sodium Chloride 0.9% 1, 735 375 50 000 ml @ 75 mls/hr IV . [id number] [facility] Rx#:[id number] metroNIDAZOLE-NS PMX 500 200 200 mg In Saline 1 100ml.bag @ 100 mls/hr IVPB Q6HR [facility] Rx#:[id number] pressure bag 78 60 18 Intake, IV Titration 589.620 271.091 110.33 Amount Mvi, Adult No.4 with Vit 165 K 10 ml Trace (Conc-1Ml/ Dose) 1 ml In Amino Acid 4.25%-D10w+Lytes*E* 1,000 ml @ 55 mls/hr IV . [id number] [facility] Rx#:[id number] Norepinephrine 32 mg In 128.537 69.114 10.33 Sodium Chloride 0.9% 218 ml @ 0.05 MCG/KG/MIN 2. 658 mls/hr IV .Q24H [facility] Rx#:[id number] Propofol 1,000 mg In 296.083 201.977 100 Empty Bag 1 bag @ Titrate IV .Q0M [facility] Rx#: [id number] Output: Gastric Drainage 350 130 Drainage 0 14 Right Abdomen 0 14 Urine 1080 885 265 Other: Voiding Method Indwelling Catheter Indwelling Catheter ABP, PAP, CO, CI - Last Documented Arterial Blood Pressure 110/37 - Labs CBC & Chem 7: 10/04/18 04:35 10/04/18 04:35 Labs: Abnormal Lab Results - Last 24 Hours (Table) 10/03/18 10/03/18 10/03/18 Range/Units 11:55 14:39 14:39 WBC (3.8-10.6) k/uL RBC (4.30-5.90) m/uL Hgb (13.0-17.5) gm/dL Hct (39.0-53.0) % RDW (11.5-15.5) % Plt Count (150-450) k/uL ABG pO2 (83-108) mmHg Chloride 114 H (98-107) mmol/L Carbon Dioxide 19 L (22-30) mmol/L BUN 51 H (9-20) mg/dL Creatinine 2.73 H (0.66-1.25) mg/dL Glucose 177 H (74-99) mg/dL POC Glucose (mg/dL) 188 H (75-99) mg/dL Calcium 6.6 L (8.4-10.2) mg/dL Ionized Calcium Ivett (4.5-5.3) mg/dL AST 202 H (17-59) U/L ALT 241 H (21-72) U/L Total Protein 4.1 L (6.3-8.2) g/dL Albumin 2.0 L (3.5-5.0) g/dL Triglycerides 436 H (<150) mg/dL 10/03/18 10/03/18 10/03/18 Range/Units 15:52 18:00 23:37 WBC (3.8-10.6) k/uL RBC (4.30-5.90) m/uL Hgb (13.0-17.5) gm/dL Hct (39.0-53.0) % RDW (11.5-15.5) % Plt Count (150-450) k/uL ABG pO2 (83-108) mmHg Chloride (98-107) mmol/L Carbon Dioxide (22-30) mmol/L BUN (9-20) mg/dL Creatinine (0.66-1.25) mg/dL Glucose (74-99) mg/dL POC Glucose (mg/dL) 205 H 210 H (75-99) mg/dL Calcium (8.4-10.2) mg/dL Ionized Calcium Ivett 4.3 L (4.5-5.3) mg/dL AST (17-59) U/L ALT (21-72) U/L Total Protein (6.3-8.2) g/dL Albumin (3.5-5.0) g/dL Triglycerides (<150) mg/dL 10/04/18 10/04/18 10/04/18 Range/Units 04:35 04:35 05:40 WBC 16.6 H (3.8-10.6) k/uL RBC 2.17 L (4.30-5.90) m/uL Hgb 7.0 L (13.0-17.5) gm/dL Hct 21.3 L (39.0-53.0) % RDW 15.6 H (11.5-15.5) % Plt Count 114 L (150-450) k/uL ABG pO2 81 L (83-108) mmHg Chloride 115 H (98-107) mmol/L Carbon Dioxide 21 L (22-30) mmol/L BUN 53 H (9-20) mg/dL Creatinine 2.13 H (0.66-1.25) mg/dL Glucose 192 H (74-99) mg/dL POC Glucose (mg/dL) (75-99) mg/dL Calcium 6.8 L (8.4-10.2) mg/dL Ionized Calcium Ivett (4.5-5.3) mg/dL AST 151 H (17-59) U/L ALT 214 H (21-72) U/L Total Protein 4.1 L (6.3-8.2) g/dL Albumin 2.0 L (3.5-5.0) g/dL Triglycerides (<150) mg/dL 10/04/18 Range/Units 05:52 WBC (3.8-10.6) k/uL RBC (4.30-5.90) m/uL Hgb (13.0-17.5) gm/dL Hct (39.0-53.0) % RDW (11.5-15.5) % Plt Count (150-450) k/uL ABG pO2 (83-108) mmHg Chloride (98-107) mmol/L Carbon Dioxide (22-30) mmol/L BUN (9-20) mg/dL Creatinine (0.66-1.25) mg/dL Glucose (74-99) mg/dL POC Glucose (mg/dL) 196 H (75-99) mg/dL Calcium (8.4-10.2) mg/dL Ionized Calcium Ivett (4.5-5.3) mg/dL AST (17-59) U/L ALT (21-72) U/L Total Protein (6.3-8.2) g/dL Albumin (3.5-5.0) g/dL Triglycerides (<150) mg/dL Microbiology - Last 24 Hours (Table) 10/02/18 00:14 Blood Culture - Preliminary Blood No Growth after 48 hours 10/02/18 00:14 Blood Culture - Preliminary Blood No Growth after 48 hours 10/01/18 12:10 Anaerobic Culture - Preliminary Abdomen 10/01/18 12:10 Gram Stain - Final Abdomen Wound Culture - Final Escherichia coli Pseudomonas aeruginosa Assessment and Plan Plan: Assessment: 1. Acute kidney injury secondary to ATN secondary to septic shock. Creatinine peaked at 2.9 this admission and is down to 2.13 today. 2. Chronic kidney disease stage III secondary to nephrosclerosis with basic creatinine in the range of 1.1-1.3. 3. Septic shock secondary to perforated diverticulitis with fecal peritonitis. Status post exploratory laparotomy with sigmoid colectomy with end colostomy and drainage of abscess on October 01. Maintain on IV antibiotics. 4. A. fib with RVR. Off Cardizem drip. Heart rate controlled. 5. Metabolic acidosis secondary to acute kidney injury as well as IV fluids. Better. Plan: Maintain normal saline at 50 mL an hour and TPN. Can likely Hep-Lock IV fluids tomorrow. Replace potassium. 20 mEq today. Wean vasopressors. No urgency replacement therapy at this time. If urine output tapers, may repeat dose of IV Lasix.
[2018-10-04] MEDS: DILTIAZEM 125 MG in SODIUM CHLORIDE 0.9% 100 ML IV SCH (10:02)
--- NOTE | 2018-10-04 10:46 | P.PN ---
<NeftaliLeonor Sydnee - Last Filed: 10/04/18 10:37> Subjective Progress Note Date: 10/04/18 CHIEF COMPLAINT: Abdominal pain HISTORY OF PRESENT ILLNESS: Patient is status post exploratory laparotomy, sigmoid colectomy with end colostomy, and drainage of abscess secondary to perforated diverticulitis. Patient remains on mechanical ventilation in the ICU. He remains on vasopressor support, currently on Levophed at 6mcg. Ostomy with small amount of stool present and serosanguineous drainage. SAMY with minimal output. WBC 16.6. Hemoglobin 7.0. PHYSICAL EXAM: VITAL SIGNS: Reviewed. GENERAL: Well-developed. Remains on mechanical ventilation. HEENT: ET noted. NG to LIS with bilious drainage. No sclera icterus. Extra ocular movements grossly intact. Moist buccal mucosa. Head is atraumatic, normocephalic. ABDOMEN: Dressing to abdomen removed and changed. Tissue appears healthy. Very small area of necrosis to right side of incision. Wound repacked with kerlex. Ostomy intact with stool noted. Majority of stomy appears to be ischemic. SAMY drain noted to right lower quadrant. NEUROLOGIC: Unable to assess secondary to mechanical ventilation ASSESSMENT: 1. Perforated diverticulitis, status post exploratory laparotomy, sigmoid colectomy with end colostomy, and drainage of abscess 2. Sepsis 3. Peritonitis PLAN: 1. Ventilator management per Dr. Ridley 2. Wean vasopressors as tolerated 3. Continue NG to LIS 4. Continue TPN 5. Continue dressing changes daily with gauze packing to abdominal wound. Nurse practitioner note has been reviewed by physician. Signing provider agrees with the documented findings, assessment, and plan of care. Objective - Vital Signs Vital signs: Vital Signs Temp 98.4 F 10/04/18 08:00 Pulse 77 10/04/18 09:15 Resp 7 L 10/04/18 09:15 BP 107/50 10/04/18 09:15 Pulse Ox 93 L 10/04/18 09:15 Intake & Output 10/03/18 10/04/18 10/04/18 18:59 06:59 18:59 Intake Total 2381.598 6968.091 553.33 Output Total 1430 1029 265 Balance 522.620 102.091 288.33 Weight 131.8 kg 134.2 kg Intake: IV 1363 860 318 Levofloxacin 250Mg-D5w 50 25 Pmx 250 mg In Dextrose/ Water 1 50ml.bag @ 50 mls /hr IVPB Q24H [facility] Rx#: [id number] Mvi, Adult No.4 with Vit 150 150 K 10 ml Trace (Conc-1Ml/ Dose) 1 ml In Amino Acid 4.25%-D10w+Lytes*E* 1,000 ml @ 50 mls/hr IV . [id number] [facility] Rx#:[id number] Piperacillin-Tazobactam 3 100 .375 gm In Sodium Chloride 0.9% 100 ml @ 25 mls/hr IVPB Q12H [facility] Rx# :[id number] Piperacillin-Tazobactam 3 100 50 .375 gm In Sodium Chloride 0.9% 100 ml @ 25 mls/hr IVPB Q8H [facility] Rx#: [id number] Potassium Chloride 20 meq 200 In Water For Injection 1 100ml.bag @ 50 mls/hr IVPB Q2H [facility] Rx#: [id number] Sodium Chloride 0.9% 1, 735 375 50 000 ml @ 75 mls/hr IV . [id number] [facility] Rx#:[id number] metroNIDAZOLE-NS PMX 500 200 200 mg In Saline 1 100ml.bag @ 100 mls/hr IVPB Q6HR [facility] Rx#:[id number] pressure bag 78 60 18 Intake, IV Titration 589.620 271.091 235.33 Amount Diltiazem 125 mg In 125 Sodium Chloride 0.9% 100 ml @ 5 MG/HR 5 mls/hr IV .Q24H [facility] Rx#:[id number] Mvi, Adult No.4 with Vit 165 K 10 ml Trace (Conc-1Ml/ Dose) 1 ml In Amino Acid 4.25%-D10w+Lytes*E* 1,000 ml @ 55 mls/hr IV . [id number] [facility] Rx#:[id number] Norepinephrine 32 mg In 128.537 69.114 10.33 Sodium Chloride 0.9% 218 ml @ 0.05 MCG/KG/MIN 2. 658 mls/hr IV .Q24H [facility] Rx#:[id number] Propofol 1,000 mg In 296.083 201.977 100 Empty Bag 1 bag @ Titrate IV .Q0M [facility] Rx#: [id number] Output: Gastric Drainage 350 130 Drainage 0 14 Right Abdomen 0 14 Urine 1080 885 265 Other: Voiding Method Indwelling Catheter Indwelling Catheter ABP, PAP, CO, CI - Last Documented Arterial Blood Pressure 110/37 - Labs CBC & Chem 7: 10/04/18 04:35 10/04/18 04:35 Labs: Abnormal Lab Results - Last 24 Hours (Table) 10/03/18 10/03/18 10/03/18 Range/Units 11:55 14:39 14:39 WBC (3.8-10.6) k/uL RBC (4.30-5.90) m/uL Hgb (13.0-17.5) gm/dL Hct (39.0-53.0) % RDW (11.5-15.5) % Plt Count (150-450) k/uL ABG pO2 (83-108) mmHg Chloride 114 H (98-107) mmol/L Carbon Dioxide 19 L (22-30) mmol/L BUN 51 H (9-20) mg/dL Creatinine 2.73 H (0.66-1.25) mg/dL Glucose 177 H (74-99) mg/dL POC Glucose (mg/dL) 188 H (75-99) mg/dL Calcium 6.6 L (8.4-10.2) mg/dL Ionized Calcium Ivett (4.5-5.3) mg/dL AST 202 H (17-59) U/L ALT 241 H (21-72) U/L Total Protein 4.1 L (6.3-8.2) g/dL Albumin 2.0 L (3.5-5.0) g/dL Triglycerides 436 H (<150) mg/dL 10/03/18 10/03/18 10/03/18 Range/Units 15:52 18:00 23:37 WBC (3.8-10.6) k/uL RBC (4.30-5.90) m/uL Hgb (13.0-17.5) gm/dL Hct (39.0-53.0) % RDW (11.5-15.5) % Plt Count (150-450) k/uL ABG pO2 (83-108) mmHg Chloride (98-107) mmol/L Carbon Dioxide (22-30) mmol/L BUN (9-20) mg/dL Creatinine (0.66-1.25) mg/dL Glucose (74-99) mg/dL POC Glucose (mg/dL) 205 H 210 H (75-99) mg/dL Calcium (8.4-10.2) mg/dL Ionized Calcium Ivett 4.3 L (4.5-5.3) mg/dL AST (17-59) U/L ALT (21-72) U/L Total Protein (6.3-8.2) g/dL Albumin (3.5-5.0) g/dL Triglycerides (<150) mg/dL 10/04/18 10/04/18 10/04/18 Range/Units 04:35 04:35 05:40 WBC 16.6 H (3.8-10.6) k/uL RBC 2.17 L (4.30-5.90) m/uL Hgb 7.0 L (13.0-17.5) gm/dL Hct 21.3 L (39.0-53.0) % RDW 15.6 H (11.5-15.5) % Plt Count 114 L (150-450) k/uL ABG pO2 81 L (83-108) mmHg Chloride 115 H (98-107) mmol/L Carbon Dioxide 21 L (22-30) mmol/L BUN 53 H (9-20) mg/dL Creatinine 2.13 H (0.66-1.25) mg/dL Glucose 192 H (74-99) mg/dL POC Glucose (mg/dL) (75-99) mg/dL Calcium 6.8 L (8.4-10.2) mg/dL Ionized Calcium Ivett (4.5-5.3) mg/dL AST 151 H (17-59) U/L ALT 214 H (21-72) U/L Total Protein 4.1 L (6.3-8.2) g/dL Albumin 2.0 L (3.5-5.0) g/dL Triglycerides (<150) mg/dL 10/04/18 Range/Units 05:52 WBC (3.8-10.6) k/uL RBC (4.30-5.90) m/uL Hgb (13.0-17.5) gm/dL Hct (39.0-53.0) % RDW (11.5-15.5) % Plt Count (150-450) k/uL ABG pO2 (83-108) mmHg Chloride (98-107) mmol/L Carbon Dioxide (22-30) mmol/L BUN (9-20) mg/dL Creatinine (0.66-1.25) mg/dL Glucose (74-99) mg/dL POC Glucose (mg/dL) 196 H (75-99) mg/dL Calcium (8.4-10.2) mg/dL Ionized Calcium Ivett (4.5-5.3) mg/dL AST (17-59) U/L ALT (21-72) U/L Total Protein (6.3-8.2) g/dL Albumin (3.5-5.0) g/dL Triglycerides (<150) mg/dL Microbiology - Last 24 Hours (Table) 10/02/18 00:14 Blood Culture - Preliminary Blood No Growth after 48 hours 10/02/18 00:14 Blood Culture - Preliminary Blood No Growth after 48 hours 10/01/18 12:10 Anaerobic Culture - Preliminary Abdomen 10/01/18 12:10 Gram Stain - Final Abdomen Wound Culture - Final Escherichia coli Pseudomonas aeruginosa <Sandro Torrez - Last Filed: 10/04/18 20:38> Subjective As above. Patient doing better. Levothyroid requirement decreased. Maintaining good oxygenation and good urine output. Ostomy remained dusky. Continue weaning pressors. We'll follow closely. Objective - Vital Signs Vital signs: Vital Signs Temp 97.9 F 10/04/18 16:00 Pulse 73 10/04/18 19:20 Resp 22 10/04/18 19:00 BP 126/53 10/04/18 19:00 Pulse Ox 99 10/04/18 19:00 Intake & Output 10/04/18 10/04/18 10/05/18 06:59 18:59 06:59 Intake Total 0587.468 7163.265 Output Total 1029 1080 Balance 102.091 847.265 Weight 134.2 kg Intake: IV 860 1447 Levofloxacin 250Mg-D5w 25 Pmx 250 mg In Dextrose/ Water 1 50ml.bag @ 50 mls /hr IVPB Q24H [facility] Rx#: [id number] Mvi, Adult No.4 with Vit 150 690 K 10 ml Trace (Conc-1Ml/ Dose) 1 ml In Amino Acid 4.25%-D10w+Lytes*E* 1,000 ml @ 50 mls/hr IV . [id number] [facility] Rx#:[id number] Piperacillin-Tazobactam 3 300 .375 gm In Sodium Chloride 0.9% 100 ml @ 25 mls/hr IVPB Q12H [facility] Rx# :[id number] Piperacillin-Tazobactam 3 50 .375 gm In Sodium Chloride 0.9% 100 ml @ 25 mls/hr IVPB Q8H [facility] Rx#: [id number] Sodium Chloride 0.9% 1, 375 300 000 ml @ 75 mls/hr IV . [id number] [facility] Rx#:[id number] metroNIDAZOLE-NS PMX 500 200 100 mg In Saline 1 100ml.bag @ 100 mls/hr IVPB Q6HR [facility] Rx#:[id number] pressure bag 60 57 Intake, IV Titration 271.091 480.265 Amount Diltiazem 125 mg In 125 Sodium Chloride 0.9% 100 ml @ 5 MG/HR 5 mls/hr IV .Q24H [facility] Rx#:[id number] Norepinephrine 32 mg In 69.114 32.691 Sodium Chloride 0.9% 218 ml @ 0.05 MCG/KG/MIN 2. 658 mls/hr IV .Q24H [facility] Rx#:[id number] Propofol 1,000 mg In 201.977 322.574 Empty Bag 1 bag @ Titrate IV .Q0M [facility] Rx#: [id number] Oral 0 Output: Gastric Drainage 130 Drainage 14 Right Abdomen 14 Urine 885 1080 Other: Voiding Method Indwelling Catheter Indwelling Catheter ABP, PAP, CO, CI - Last Documented Arterial Blood Pressure 130/46 - Labs CBC & Chem 7: 10/04/18 04:35 10/04/18 04:35 Labs: Abnormal Lab Results - Last 24 Hours (Table) 10/03/18 10/04/18 10/04/18 Range/Units 23:37 04:35 04:35 WBC 16.6 H (3.8-10.6) k/uL RBC 2.17 L (4.30-5.90) m/uL Hgb 7.0 L (13.0-17.5) gm/dL Hct 21.3 L (39.0-53.0) % RDW 15.6 H (11.5-15.5) % Plt Count 114 L (150-450) k/uL ABG pO2 (83-108) mmHg Chloride 115 H (98-107) mmol/L Carbon Dioxide 21 L (22-30) mmol/L BUN 53 H (9-20) mg/dL Creatinine 2.13 H (0.66-1.25) mg/dL Glucose 192 H (74-99) mg/dL POC Glucose (mg/dL) 210 H (75-99) mg/dL Calcium 6.8 L (8.4-10.2) mg/dL AST 151 H (17-59) U/L ALT 214 H (21-72) U/L Total Protein 4.1 L (6.3-8.2) g/dL Albumin 2.0 L (3.5-5.0) g/dL 10/04/18 10/04/18 10/04/18 Range/Units 05:40 05:52 12:07 WBC (3.8-10.6) k/uL RBC (4.30-5.90) m/uL Hgb (13.0-17.5) gm/dL Hct (39.0-53.0) % RDW (11.5-15.5) % Plt Count (150-450) k/uL ABG pO2 81 L (83-108) mmHg Chloride (98-107) mmol/L Carbon Dioxide (22-30) mmol/L BUN (9-20) mg/dL Creatinine (0.66-1.25) mg/dL Glucose (74-99) mg/dL POC Glucose (mg/dL) 196 H 198 H (75-99) mg/dL Calcium (8.4-10.2) mg/dL AST (17-59) U/L ALT (21-72) U/L Total Protein (6.3-8.2) g/dL Albumin (3.5-5.0) g/dL 10/04/18 Range/Units 17:26 WBC (3.8-10.6) k/uL RBC (4.30-5.90) m/uL Hgb (13.0-17.5) gm/dL Hct (39.0-53.0) % RDW (11.5-15.5) % Plt Count (150-450) k/uL ABG pO2 (83-108) mmHg Chloride (98-107) mmol/L Carbon Dioxide (22-30) mmol/L BUN (9-20) mg/dL Creatinine (0.66-1.25) mg/dL Glucose (74-99) mg/dL POC Glucose (mg/dL) 221 H (75-99) mg/dL Calcium (8.4-10.2) mg/dL AST (17-59) U/L ALT (21-72) U/L Total Protein (6.3-8.2) g/dL Albumin (3.5-5.0) g/dL Microbiology - Last 24 Hours (Table) 10/04/18 14:10 Catheter Tip Culture - Preliminary Catheter Tip 10/01/18 12:10 Anaerobic Culture - Final Abdomen Anaerobic Gm Negative Bacilli 10/02/18 00:14 Blood Culture - Preliminary Blood No Growth after 48 hours 10/02/18 00:14 Blood Culture - Preliminary Blood No Growth after 48 hours
[2018-10-04] MEDS: MVI, ADULT NO.4 WITH VIT K 10 ML, TRACE (CONC-1ML/DOSE) 1 ML in AMINO ACID 4.25%-D10W+L... IV SCH ×3 (11:00)
--- NOTE | 2018-10-04 11:11 | PN ---
PROGRESS NOTE DATE OF SERVICE: 10/04/2018 CRITICAL CARE TIME: 34 minutes. This is an 82-year-old gentleman who was admitted on September 30. He came with an episode of abdominal pain and was found to have a small-bowel obstruction. He was intubated, intubated on and on that same day underwent sigmoid colectomy with colostomy for perforated diverticular abscess. Surgery was done by Dr. Woodward. He remains on the mechanical ventilator. I did have a long talk with son yesterday. The patient has been adequately fluid resuscitated. He has also received multiple blood and blood products. Currently, he is on the volume assist-control mode rate of 20, tidal volume 500, FiO2 of 50%, PEEP of 10. Blood gases show a pO2 of 81, pCO2 of 35, and a pH of 7.40. The patient is on saline at 50 mL an hour, propofol at 50 mcg/kg per minute TPN at 50 mL an hour, norepinephrine at 30 mcg/minute and Cardizem drip at 5 mg an hour. The wound cultures have grown out E coli and Pseudomonas aeruginosa. Currently, the patient's Levophed requirement has come down nicely. He was on, I believe 32 or 33 mcg/minute of norepinephrine yesterday. Other than that, he said he has had a pretty uneventful night. Current vital signs are reviewed. Temperature is 98.4, heart rate 77, respiratory rate is 20, blood pressure is 107/50 mean 69, saturations are 93%-97%. CVP is running at 9. Appears in no acute distress. Currently sedated. HEENT: Examination is grossly unremarkable. There is no orally placed endotracheal tube and NG tube. NECK: Supple. Full range of motion. No adenopathy. Neck veins are flat. CARDIOVASCULAR: Examination reveals regular rhythm and rate. S1, S2 normal. No murmur. LUNGS: Reveal a few scattered bilateral rhonchi. No wheezes or crackles. Breath sounds are diminished. ABDOMEN: Soft. No bowel sounds noted. Extremities are intact. Minimal edema. SKIN: Without rash. NEUROLOGIC: Examination could not be adequately performed as he is heavily sedated. Current vent settings. The volume assist-control mode rate of 20, tidal volume 500, FiO2 50%, PEEP of 10. Blood gases show a mixed acid-base disturbance. His PO2 is 81. PCO2 is 35, pH is 7.40. This blood gas is consistent with a mild respiratory alkalosis and mild metabolic acidosis. The patient remains on saline at 50 mL an hour, Diprivan at 50 mcg/kg per per minute, TPN at 50 mL an hour, norepinephrine at 30 mcg/minute and Cardizem at 5 mg an hour. LAB DATA: Includes a white count 16.6, hemoglobin 7, hematocrit 21.3, platelet count 114,000. Sodium 143, potassium 3.6, chloride 115 CO2 21 anion gap 7, BUN and creatinine were 53 and 2.13. Albumin 2, AST 151, ALT 214. Chest x-ray shows a properly placed endotracheal tube. There is sternal wires from previous open-heart surgery. There is bibasilar small effusion. There is bibasilar atelectasis or minimal infiltrate. All- in-all, the chest x-ray does not look bad. Medications are reviewed. Microbiology is reviewed. ASSESSMENT: 1. Postoperative day #3, status post sigmoid colectomy with colostomy for perforated diverticular abscess. 2. Abdominal sepsis secondary to E coli and Pseudomonas. 3. Routine postoperative ventilator management. 4. Paroxysmal atrial fibrillation. 5. Hypotension, secondary to sepsis, requiring norepinephrine. 6. Benign essential hypertension. 7. Hyperlipidemia. 8. Degenerative joint disease. 9. Hypothyroidism. PLAN: Currently, the patient's norepinephrine dose has come down from 32.5 mcg/minute down to 13 mcg/minute. He remains on Cardizem at 5 mg an hour for atrial fibrillation. His TPN is running at 50 mL an hour. He is getting sedation with propofol at 50 mcg/kg per per minute. His chest x-ray looks relatively stable. We will make sure that ID is aware of the E. coli and Pseudomonas in his abdominal wound. Additional recommendations and suggestions are forthcoming. Prognosis is guarded. I did have a conversation with the son yesterday. I also encouraged the surgeon to have a conversation with the son. Additional recommendations and suggestions forthcoming. CRITICAL CARE TIME: 34 minutes. MMODL / IJN: [id number] / MTDD
[2018-10-04 12:34] LABS: Glucose,Whole Blood 198 mg/dL (75-99)
[2018-10-04] MEDS ORDERED: LIDOCAINE 2% INJ 20 MG/ML SQ ONE (13:20)
[2018-10-04] MEDS: SODIUM CHLORIDE 0.9% 1,000 ML IV SCH (13:43)
--- NOTE | 2018-10-04 14:09 | XR ---
EXAMINATION TYPE: XR chest 1V confirm line plcmt, XR chest 1V confirm line plcmt, XR chest 1V confirm line plcmt DATE OF EXAM: 10/04/2018 COMPARISON: Prior chest x-ray on same date earlier time HISTORY: PICC line placement, interval PICC line repositioning x2 TECHNIQUE: S3gle frontal views of the chest obtained in close succession, following repositioning of the PICC line. FINDINGS: Initial postprocedural chest x-ray shows the PICC line within the right side of the distal tip coursing inferior to the inferior extent to the exam and into the right atrium. PICC line was kat bsequently repositioned. Follow-up shows similar appearance. Final exam shows the PICC line tip to be within the right atrium. There is no pneumothorax. Bibasilar increased density persists. Endotracheal tube, orogastric tube ar e present. IMPRESSION: No evident application status post PICC line placement.
--- NOTE | 2018-10-04 14:10 | CDI ---
Documentation Clarification Form Date: 10/04/2018 1:40:20 PM From: Charity Patel RN CCDS Admit Date: 09/30/2018 1:34:00 PM Patient Name: Rene Martinez Visit Number: [id number] Discharge Date: ATTENTION: The Clinical Documentation Specialists (CDI) and [facility] Coding Staff appreciate your assistance in clarifying documentation. Please respond to the clarification below the line at the bottom and electronically sign. The CDI & [facility] Coding staff will review the response and follow-up if needed. Please note: Queries are made part of the Legal Health Record. If you have any questions, please contact the author of this message via ITS. Dr. Cosme Colon Hypotensive Shock is documented in your progress notes. Patient history/risk factors: 82 year old male diagnosed with perforated diverticulitis having sigmoid colectomy in ICU. Clinical Indicators: Vitals: 10/01/2018 80/46 92 20 on mechanical ventilation. 96% Treatment: 2 units PRBC, FFP 5 units, Norepinephrine, 0.9ns 2.5L bolus; Vassopressin; In your professional opinion, can you please specify the type of shock if known? Hypovolemic Shock Cause Other, please specify Unable to determine (Last Revision: January 2017) hypovolemic and septic shock MTDD
--- NOTE | 2018-10-04 16:22 | IR ---
EXAMINATION TYPE: IR cvc insert >=5 years DATE OF EXAM: 10/04/2018 COMPARISON: NONE HISTORY: Gastrointestinal bleeding, needs long-term intravenous access for therapy FINDINGS: Maximal barrier technique was utilized. The skin overlying the right basilic vein was loca lized with ultrasound and noted to be compressible and patent by ultrasound. An ultrasound image was obtained and submitted on patient's chart. Sterile technique utilized with the ultrasound machine. T he skin overlying was prepped and draped and Lidocaine used for local anesthesia. A skin yuliya was ma de with a scalpel. Access was gained to the vein under direct ultrasound guidance with a 21-gauge ne edle and a 0.018 inch wire was advanced. Access site was dilated with a peel-away sheath and the cat heter tailored to length. Catheter advanced centrally and a post procedure chest x-ray verified plac ement after manipulation in the right atrium. Catheter was fixed to the skin and a sterile dressing placed. Hemostasis achieved and the catheter was aspirated and flushed with sterile saline. The pat ient remained in stable condition. IMPRESSION: STATUS POST ULTRASOUND GUIDED PICC LINE PLACEMENT, READY FOR USE. THIS PROCEDURE WAS PER FORMED BY THE UNDERSIGNED.
[2018-10-04 17:29] LABS: Glucose,Whole Blood 221 mg/dL (75-99)
[2018-10-04] MEDS ORDERED: ARTIFICIAL TEARS-HYPROMELLOSE DROPS 15 ML BTL BOTH EYES PRN (17:40)
--- NOTE | 2018-10-04 18:20 | PN ---
PROGRESS NOTE DATE OF SERVICE: 10/04/2018 REASON FOR FOLLOWUP: Abdominal sepsis with ruptured diverticulitis and abscess. INTERVAL HISTORY: The patient is currently afebrile. The patient is hemodynamically more stable, requiring less pressor support, currently down to 4 mcg Levophed. Patient's FiO2 is currently stable at 50. The patient remains sedated on the vent. No other events reported by the nursing staff. PHYSICAL EXAMINATION: Blood pressure is 108/43 with a pulse of 70, temperature of 98. He is 96% on 50% FiO2. General description is an elderly male lying in bed in no distress. RESPIRATORY SYSTEM: Unlabored breathing with decreased breath sounds at the base. No wheeze. HEART: S1, S2. Regular rate and rhythm. ABDOMEN: Soft. No guarding. No rigidity. No distention. EXTREMITIES: No edema of the feet. LABS: Hemoglobin is 7, white count 16.6 with a BUN of 53, creatinine 2.13. Abdominal culture positive for E coli, Pseudomonas aeruginosa, anaerobic gram- negative bacilli. DIAGNOSTIC IMPRESSION AND PLAN: Patient with abdominal sepsis from a perforated sigmoid diverticulitis, status post diverting colostomy. The patient is currently covered with Zosyn and Flagyl; to continue while monitoring his clinical course closely. Elevated white count is more likely steroid effect. Son was present at bedside. His questions were answered. MMODL / IJN: [id number] / ELSA
--- NOTE | 2018-10-04 20:00 | P.PN ---
Progress Note - Text Progress Note Date: 10/04/18 Presenting complaint: Perforated viscus Interval history: Patient admitted with acute abdomen. Found to have perforated acute diverticulitis. . Had a sigmoid colectomy and has a drain in place with partial closure of the abdomen. NG tube in place. Bishop catheter in place Today-. Remains in the ICU. . On the ventilator. FiO2 50% and PEEP of 10. Patient does morning have been levo fed that was held this afternoon. Propofol remains on 50 mics. Cardizem drip at 5 mg per hour. Remains in atrial fibrillation. Patient getting TPN. Atrial fib was normal controlled. Has an NG tube in place. Did put out about 130 mL in the last shift. Urine output has been about 100 mL an hour. SAMY drain has been minimal. Review of systems: Unable to obtain as patient is intubated Current medications reviewed that included: IV Cardizem, IV Flagyl, IV norepinephrine, IV Zosyn, IV propofol On examination: VITAL SIGNS: 98.4, 71, 22, 1 26 x 55, 96% on ventilator GENERAL: Laying in bed intubated. EYES: Pupils equal. Conjunctiva normal. HEENT: External appearance of nose and ears normal, NG tube in place. NECK: JVD unable to assess; masses not palpable. HEART: Heart sounds irregular , no edema. LUNGS: Respiratory rate increased; decreased breath sounds. ABDOMEN: left-sided colostomy with very small amount of stool, dressing in place with a SAMY drain, tender, no mass palpable. PSYCH: Sedated and unable to assessl. NEUROLOGICAL: Cranial nerves grossly intact; no facial asymmetry, pupils reactive Investigations reviewed in the clinical context White count 16.6, hemoglobin 7, potassium 3.6, BUN 53, creatinine 2.13 Assessment: -Acute perforated sigmoid diverticulitis with secondary peritonitis, slow to respond -Sigmoid colectomy with a resultant colostomy and a SAMY drain in place -Hypotensive and septic shock, requiring pressure support slow to respond -Acute renal failure, ATN from septic shock, slow to respond -Persistent atrial flutter,, heart rate better controlled -Coronary artery disease with prior history of stent and bypass -Hyperlipidemia -Essential hypertension history of -Primary osteoarthritis -BPH -Hypothyroidism -Chronic gout -PTSD -Coumadin monitoring. Status post vitamin K and fresh frozen plasma. Plan: Remains in the ICU. Remains critical. Levo fed was held this afternoon. Remains on IV propofol and the Cardizem drip. No shortness was a colostomy bag. Urine output is better. Continue the antibiotics. Prognosis guarded.
[2018-10-04 23:07] LABS: Glucose,Whole Blood 176 mg/dL (75-99)
[2018-10-05] MEDS: IPRATROPIUM-ALBUTEROL 3 ML NEB INHALATION SCH ×7 (00:31→23:22)
[2018-10-05] MEDS: PROPOFOL 1,000 MG in EMPTY BAG 1 BAG IV SCH ×6 (00:41→23:59)
[2018-10-05] MEDS: MVI, ADULT NO.4 WITH VIT K 10 ML, TRACE (CONC-1ML/DOSE) 1 ML in AMINO ACID 4.25%-D10W+L... IV SCH ×3 (00:42)
[2018-10-05 04:39] LABS: Calcium 7.1 mg/dL (8.4-10.2); Magnesium 2.4 mg/dL (1.6-2.3); Phosphorus 2.7 mg/dL (2.5-4.5); Potassium 3.7 mmol/L (3.5-5.1)
[2018-10-05 05:18] LABS: ABG HCO3 24 mmol/L (21-25); ABG Oxygen Saturation 95.2 % (94-97); ABG PCO2 36 mmHg (35-45); ABG PH 7.44 (7.35-7.45); ABG PO2 73 mmHg (83-108); ABG TCO2 25 mmol/L (19-24); Allen Test Performed? Yes
[2018-10-05 05:31] LABS: Glucose,Whole Blood 163 mg/dL (75-99)
[2018-10-05] MEDS: metroNIDAZOLE-NS PMX 500 MG in SALINE 1 100ML.BAG IVPB SCH ×3 (05:32→18:16)
[2018-10-05] MEDS: INSULIN ASPART (NovoLOG) 100 UNIT/ML VIAL SQ SCH ×3 (05:33→18:15)
[2018-10-05] MEDS: POTASSIUM CHLORIDE 10 MEQ in WATER FOR INJECTION 1 100ML.BAG IVPB SCH ×2 (05:36→07:13)
[2018-10-05 06:54] LABS: Anisocytosis Slight; MCH 32.6 pg (25.0-35.0); MCHC 33.7 g/dL (31.0-37.0); MCV 96.7 fL (80.0-100.0); Mean Platelet Volume 9.3; Platelet Count 109 k/uL (150-450); RBC 1.97 m/uL (4.30-5.90); RDW 16.4 % (11.5-15.5); WBC 17.2 k/uL (3.8-10.6)
[2018-10-05 07:26] LABS: HGB 6.4 gm/dL (13.0-17.5)
[2018-10-05 07:29] LABS: HCT 19.1 % (39.0-53.0)
--- NOTE | 2018-10-05 08:25 | XR ---
EXAMINATION TYPE: XR chest 1V portable DATE OF EXAM: 10/05/2018 Comparison: 10/04/2018 Clinical History: 82-year-old male Tube placement Findings: ET tube appears satisfactory. Right PICC tip at the cavoatrial junction. Median sternotomy wires are present with post-CABG clips. NG tube may be present but is not well delineated. Heart mildly enlarge d. Diffuse interstitial prominence along with small right greater than left pleural effusions with bi basilar opacities. Prior right-sided thoracotomy change. Impression: 1. An NG tube may be present but is not well delineated. 2. Correlate for similar mild pulmonary vascular congestion. 3. Continued small right coronal pleural effusions with adjacent atelectasis and/or consolidation.
[2018-10-05 08:33] LABS: INR 1.2 (<1.2); Prothrombin Time 12.7 sec (9.0-12.0)
[2018-10-05] MEDS: CHLORHEXIDINE GLUCONATE 15 ML CUP MUCOUS MEM SCH ×2 (08:42→20:29)
[2018-10-05] MEDS: SODIUM CHLORIDE 0.9% 1,000 ML IV SCH (08:42)
[2018-10-05] MEDS: HYDROCORTISONE SUCCINATE 100 MG/2 ML VIAL IV SCH (08:42)
[2018-10-05] MEDS: PIPERACILLIN-TAZOBACTAM 3.375 GM in SODIUM CHLORIDE 0.9% 100 ML IVPB SCH ×2 (08:42→17:14)
[2018-10-05] MEDS ORDERED: PANTOPRAZOLE 40 MG/10 ML VIAL IVP SCH (09:45)
--- NOTE | 2018-10-05 09:49 | PN ---
PROGRESS NOTE Mr. Martinez is in sinus rhythm. He is on a very small dose of Levophed. He is maintaining sinus rhythm. Decent urine output. Creatinine has improved, but hemoglobin is down to 6.4. He will probably be transfused. S1, S2 heard distantly. Short systolic murmur noted. Lungs reveal diminished air entry. Abdomen is soft. Appears to be edematous, but fluid management is being addressed by Critical Care. I am recommending that we discontinue Cardizem and continue his other medications and see how he does. Prognosis remains guarded. MMODL / IJN: [id number] /
--- NOTE | 2018-10-05 10:00 | P.PN ---
Subjective Patient is seen in follow-up for acute kidney injury on chronic kidney disease. Patient has chronic kidney disease stage III with baseline creatinine in the range of 1.1-1.3. Patient presented with abdominal pain and was noted to have perforated diverticulitis with fecal peritonitis. He underwent exploratory laparotomy and abscess drainage in October 01. He is currently intubated and sedated. Levophed was discontinued this morning. Remains nonoliguric. Hemoglobin is 6.4 today. Noted to have dark colored output from NG tube. Vital signs are stable. General: The patient appeared well nourished and normally developed. HEENT: Head exam is unremarkable. Neck is without jugular venous distension. Intubated. LUNGS: Breath sounds decreased. HEART: Regular rate and rhythm. ABDOMEN: Abdominal exam reveals decreased bowel sounds. No active drainage noted. EXTREMITITES: 1+ edema. Objective - Vital Signs Vital signs: Vital Signs Temp 99.1 F 10/05/18 09:20 Pulse 81 10/05/18 09:40 Resp 26 H 10/05/18 09:20 BP 128/60 10/05/18 09:40 Pulse Ox 94 L 10/05/18 09:40 Intake & Output 10/04/18 10/05/18 10/05/18 18:59 06:59 18:59 Intake Total 3511.021 6898.400 480.474 Output Total 1080 1660 495 Balance 885.319 558.400 -14.526 Weight 137.2 kg Intake: IV 1447 1278 369 Mvi, Adult No.4 with Vit 690 495 K 10 ml Trace (Conc-1Ml/ Dose) 1 ml In Amino Acid 4.25%-D10w+Lytes*E* 1,000 ml @ 50 mls/hr IV . [id number] [facility] Rx#:[id number] Mvi, Adult No.4 with Vit 110 K 10 ml Trace (Conc-1Ml/ Dose) 1 ml In Amino Acid 4.25%-D10w+Lytes*E* 1,000 ml @ 55 mls/hr IV . [id number] [facility] Rx#:[id number] Piperacillin-Tazobactam 3 300 100 100 .375 gm In Sodium Chloride 0.9% 100 ml @ 25 mls/hr IVPB Q12H [facility] Rx# :[id number] Sodium Chloride 0.9% 1, 550 150 000 ml @ 50 mls/hr IV . Q20H [facility] Rx#:[id number] Sodium Chloride 0.9% 1, 300 000 ml @ 75 mls/hr IV . [id number] [facility] Rx#:[id number] metroNIDAZOLE-NS PMX 500 100 100 mg In Saline 1 100ml.bag @ 100 mls/hr IVPB Q6HR [facility] Rx#:[id number] pressure bag 57 33 9 Intake, IV Titration 518.319 940.400 111.474 Amount Diltiazem 125 mg In 125 107.417 Sodium Chloride 0.9% 100 ml @ 5 MG/HR 5 mls/hr IV .Q24H [facility] Rx#:[id number] Mvi, Adult No.4 with Vit 753.5 K 10 ml Trace (Conc-1Ml/ Dose) 1 ml In Amino Acid 4.25%-D10w+Lytes*E* 1,000 ml @ 55 mls/hr IV . [id number] [facility] Rx#:[id number] Norepinephrine 32 mg In 32.691 2.622 4.057 Sodium Chloride 0.9% 218 ml @ 0.05 MCG/KG/MIN 2. 658 mls/hr IV .Q24H [facility] Rx#:[id number] Propofol 1,000 mg In 360.628 184.278 Empty Bag 1 bag @ Titrate IV .Q0M [facility] Rx#: [id number] Oral 0 0 Blood Product 0 Rc As-1 Unit 0 [id number] Output: Drainage 15 Right Abdomen 15 Urine 1080 1145 455 Stool 40 Emesis 500 Other: Voiding Method Indwelling Catheter Indwelling Catheter ABP, PAP, CO, CI - Last Documented Arterial Blood Pressure 121/49 - Labs CBC & Chem 7: 10/05/18 04:21 10/05/18 04:21 Labs: Abnormal Lab Results - Last 24 Hours (Table) 10/04/18 10/04/18 10/04/18 Range/Units 12:07 17:26 23:04 WBC (3.8-10.6) k/uL RBC (4.30-5.90) m/uL Hgb (13.0-17.5) gm/dL Hct (39.0-53.0) % RDW (11.5-15.5) % Plt Count (150-450) k/uL PT (9.0-12.0) sec INR (<1.2) ABG pO2 (83-108) mmHg ABG Total CO2 (19-24) mmol/L Sodium (137-145) mmol/L Chloride (98-107) mmol/L BUN (9-20) mg/dL Creatinine (0.66-1.25) mg/dL Glucose (74-99) mg/dL POC Glucose (mg/dL) 198 H 221 H 176 H (75-99) mg/dL Calcium (8.4-10.2) mg/dL Magnesium (1.6-2.3) mg/dL Crossmatch 10/05/18 10/05/18 10/05/18 Range/Units 04:21 04:21 05:13 WBC 17.2 H (3.8-10.6) k/uL RBC 1.97 L (4.30-5.90) m/uL Hgb 6.4 L* (13.0-17.5) gm/dL Hct 19.1 L* (39.0-53.0) % RDW 16.4 H (11.5-15.5) % Plt Count 109 L (150-450) k/uL PT (9.0-12.0) sec INR (<1.2) ABG pO2 73 L (83-108) mmHg ABG Total CO2 25 H (19-24) mmol/L Sodium 146 H (137-145) mmol/L Chloride 116 H (98-107) mmol/L BUN 50 H (9-20) mg/dL Creatinine 1.58 H (0.66-1.25) mg/dL Glucose 138 H (74-99) mg/dL POC Glucose (mg/dL) (75-99) mg/dL Calcium 7.1 L (8.4-10.2) mg/dL Magnesium 2.4 H (1.6-2.3) mg/dL Crossmatch 10/05/18 10/05/18 10/05/18 Range/Units 05:28 08:05 08:16 WBC (3.8-10.6) k/uL RBC (4.30-5.90) m/uL Hgb (13.0-17.5) gm/dL Hct (39.0-53.0) % RDW (11.5-15.5) % Plt Count (150-450) k/uL PT 12.7 H (9.0-12.0) sec INR 1.2 H (<1.2) ABG pO2 (83-108) mmHg ABG Total CO2 (19-24) mmol/L Sodium (137-145) mmol/L Chloride (98-107) mmol/L BUN (9-20) mg/dL Creatinine (0.66-1.25) mg/dL Glucose (74-99) mg/dL POC Glucose (mg/dL) 163 H (75-99) mg/dL Calcium (8.4-10.2) mg/dL Magnesium (1.6-2.3) mg/dL Crossmatch See Detail Microbiology - Last 24 Hours (Table) 10/04/18 14:10 Catheter Tip Culture - Preliminary Catheter Tip 10/02/18 00:14 Blood Culture - Preliminary Blood No Growth after 72 hours 10/02/18 00:14 Blood Culture - Preliminary Blood No Growth after 72 hours 10/01/18 12:10 Anaerobic Culture - Final Abdomen Anaerobic Gm Negative Bacilli Assessment and Plan Plan: Assessment: 1. Acute kidney injury secondary to ATN secondary to septic shock. Creatinine peaked at 2.9 this admission and is down to 1.58 today. 2. Chronic kidney disease stage III secondary to nephrosclerosis with basic creatinine in the range of 1.1-1.3. 3. Septic shock secondary to perforated diverticulitis with fecal peritonitis. Status post exploratory laparotomy with sigmoid colectomy with end colostomy and drainage of abscess on October 01. Maintain on IV antibiotics. 4. A. fib with RVR. Off Cardizem drip. Heart rate controlled. 5. Metabolic acidosis secondary to acute kidney injury as well as IV fluids. Better. 6. Acute blood loss anemia. Hemoglobin 6.4 today. Plan: Maintain TPN. Hep-Lock IV fluids. Lasix 40 mg IV once after blood transfusion completed.
--- NOTE | 2018-10-05 10:47 | PN ---
PROGRESS NOTE DATE OF SERVICE: 10/05/2018 An 82-year-old male with a history of being admitted on September 30. The patient came in with an episode of abdominal pain, was found to have a small bowel obstruction. He was intubated and taken to the operating room on the and underwent a sigmoid colectomy with colostomy for perforated diverticular abscess. The surgery was done by Dr. Rony Woodward. He remains on mechanical ventilator. He is on the volume assist-control mode rate of 20, tidal volume 500 FiO2 of 50%, PEEP of 10. Blood gases show a pO2 of 73, pCO2 of 36, and pH 7.44. Currently, the patient's norepinephrine has been put on hold. His Cardizem also has been discontinued. He is on propofol at 40 mcg/kg per minute. TPN at 55 mL and hour and a saline IV at KVO. He is receiving 1 unit of PRBCs. He also is going to have some Protonix ordered for stress gastritis. Wound cultures are showing both Escherichia coli and Pseudomonas aeruginosa. Currently, he remains on Flagyl and Zosyn. He had an uneventful night. Two nights ago, he was on about 32 mcg of norepinephrine yesterday about 13 or 14 mcg and now the norepinephrine has been turned off. This is a positive. I did talk to the son today. PHYSICAL EXAMINATION: VITAL SIGNS: Current vital signs are reviewed. Temperature 99.1, heart rate 80, respiratory rate 22, blood pressure 128/60, mean 82, saturations are 94% on 50% and 10 of PEEP. Appears in no acute distress. The patient is currently sedated. HEENT: There is an orally placed endotracheal tube and NG tube. NECK: Supple. Full range of motion. No adenopathy or thyromegaly. Neck veins are flat. CARDIOVASCULAR: Examination reveals regular rhythm and rate. S1, S2 normal. Heart rate is about 80 beats per minute. LUNGS: Reveal a few scattered rhonchi. No wheezes or crackles. Breath sounds equal. ABDOMEN: Soft. No bowel sounds. EXTREMITIES: Are intact. No cyanosis, clubbing, or edema. SKIN: Without rash. NEUROLOGIC: Examination cannot be adequately assessed. MICROBIOLOGIC STUDY: Microbiologic study show evidence of both E coli and Pseudomonas aeruginosa in the wound cultures from October 01. LAB DATA: Lab data is reviewed. White count 17.2, hemoglobin 6.4, hematocrit 19.1, platelet count 109,000. PT 12.7, INR is 1.2. Sodium 146, potassium 3.7, chloride 116 and bicarbonate 23, anion gap 7, BUN and creatinine were 50 and 1.58. IMAGING: Chest x-ray shows a properly placed endotracheal tube. There is some very mild pulmonary vascular congestion. There is some right basilar atelectasis. MEDICATIONS: Medications are reviewed. They have been reviewed every day since the patient has been here in the ICU. ASSESSMENT: 1. Postoperative day #4, status post sigmoid colectomy and colostomy for perforated diverticular abscess. 2. Abdominal sepsis secondary to Escherichia coli and Pseudomonas aeruginosa. 3. Routine postoperative ventilator management. 4. Paroxysmal atrial fibrillation. 5. Hypotension, secondary to sepsis, requiring norepinephrine, improved. 6. Benign essential hypertension. 7. Hyperlipidemia. 8. Degenerative joint disease. 9. Hypothyroidism. PLAN: Currently the norepinephrine has been placed on hold. His blood pressure is more stable. Also, Cardizem was discontinued. He is getting 1 unit of PRBCs. We will add something for GI prophylaxis. Wound cultures show evidence of E coli and Pseudomonas aeruginosa. He is currently on Flagyl with Zosyn. Zosyn is effective against both the E coli and Pseudomonas. Additional recommendations and suggestions are forthcoming. I did speak to the son today. Prognosis is guarded. We will continue to follow closely and make appropriate changes where we are able to. We may even attempt a daily interruption of sedation today. CRITICAL CARE TIME: 34 minutes. MARITA / JOSEN: [id number] /
--- NOTE | 2018-10-05 11:20 | P.PN ---
<Leonor Lindsay Sydnee - Last Filed: 10/05/18 11:15> Subjective Progress Note Date: 10/05/18 CHIEF COMPLAINT: Abdominal pain HISTORY OF PRESENT ILLNESS: Patient is status post exploratory laparotomy, sigmoid colectomy with end colostomy, and drainage of abscess secondary to perforated diverticulitis. Patient remains on mechanical ventilation in the ICU. Levophed has been weaned off this morning. TPN is infusing. NG with dark coffee ground colored drainage. Ostomy with small amount of bloody drainage. WBC 17.2. Hemoglobin 6.4. PHYSICAL EXAM: VITAL SIGNS: Reviewed. GENERAL: Well-developed. Remains on mechanical ventilation. HEENT: ET noted. NG to LIS with dark coffee ground colored drainage. No sclera icterus. Extraocular movements grossly intact. Moist buccal mucosa. Head is atraumatic, normocephalic. ABDOMEN: Dressing to abdomen clean dry intact. Packing present. Ostomy intact with small amount of bloody drainage. Majority of stomy appears to be ischemic. SAMY drain noted to right lower quadrant. NEUROLOGIC: Unable to assess secondary to mechanical ventilation ASSESSMENT: 1. Perforated diverticulitis, status post exploratory laparotomy, sigmoid colectomy with end colostomy, and drainage of abscess 2. Sepsis 3. Peritonitis PLAN: 1. Ventilator management per Dr. Ridley 2. Wean vasopressors as tolerated 3. Continue NG to LIS 4. Continue TPN 5. Continue dressing changes daily with gauze packing to abdominal wound. 6. Patient to received RBC transfusion today 7. Monitor hemoglobin 8. Protonix IV added 9. Dr. Park recommending wound vac to abdomen incision. Will discuss with Dr. Torrez Nurse practitioner note has been reviewed by physician. Signing provider agrees with the documented findings, assessment, and plan of care. Objective - Vital Signs Vital signs: Vital Signs Temp 98.6 F 10/05/18 09:50 Pulse 82 10/05/18 10:30 Resp 22 10/05/18 10:30 BP 131/65 10/05/18 10:30 Pulse Ox 93 L 10/05/18 10:30 Intake & Output 10/04/18 10/05/18 10/05/18 18:59 06:59 18:59 Intake Total 6705.624 0945.400 688.474 Output Total 1080 1660 665 Balance 885.319 558.400 23.474 Weight 137.2 kg Intake: IV 1447 1278 477 Mvi, Adult No.4 with Vit 690 495 K 10 ml Trace (Conc-1Ml/ Dose) 1 ml In Amino Acid 4.25%-D10w+Lytes*E* 1,000 ml @ 50 mls/hr IV . [id number] [facility] Rx#:[id number] Mvi, Adult No.4 with Vit 165 K 10 ml Trace (Conc-1Ml/ Dose) 1 ml In Amino Acid 4.25%-D10w+Lytes*E* 1,000 ml @ 55 mls/hr IV . [id number] [facility] Rx#:[id number] Piperacillin-Tazobactam 3 300 100 100 .375 gm In Sodium Chloride 0.9% 100 ml @ 25 mls/hr IVPB Q12H [facility] Rx# :[id number] Sodium Chloride 0.9% 1, 550 200 000 ml @ 20 mls/hr IV . Q24H [facility] Rx#:[id number] Sodium Chloride 0.9% 1, 300 000 ml @ 75 mls/hr IV . [id number] [facility] Rx#:[id number] metroNIDAZOLE-NS PMX 500 100 100 mg In Saline 1 100ml.bag @ 100 mls/hr IVPB Q6HR [facility] Rx#:[id number] pressure bag 57 33 12 Intake, IV Titration 518.319 940.400 211.474 Amount Diltiazem 125 mg In 125 107.417 Sodium Chloride 0.9% 100 ml @ 5 MG/HR 5 mls/hr IV .Q24H [facility] Rx#:[id number] Mvi, Adult No.4 with Vit 753.5 K 10 ml Trace (Conc-1Ml/ Dose) 1 ml In Amino Acid 4.25%-D10w+Lytes*E* 1,000 ml @ 55 mls/hr IV . [id number] [facility] Rx#:[id number] Norepinephrine 32 mg In 32.691 2.622 4.057 Sodium Chloride 0.9% 218 ml @ 0.05 MCG/KG/MIN 2. 658 mls/hr IV .Q24H [facility] Rx#:[id number] Propofol 1,000 mg In 360.628 184.278 100 Empty Bag 1 bag @ Titrate IV .Q0M [facility] Rx#: [id number] Oral 0 0 Blood Product 0 Rc As-1 Unit 0 [id number] Output: Drainage 15 Right Abdomen 15 Urine 1080 1145 625 Stool 40 Emesis 500 Other: Voiding Method Indwelling Catheter Indwelling Catheter ABP, PAP, CO, CI - Last Documented Arterial Blood Pressure 137/52 - Labs CBC & Chem 7: 10/05/18 04:21 10/05/18 04:21 Labs: Abnormal Lab Results - Last 24 Hours (Table) 10/04/18 10/04/18 10/04/18 Range/Units 12:07 17:26 23:04 WBC (3.8-10.6) k/uL RBC (4.30-5.90) m/uL Hgb (13.0-17.5) gm/dL Hct (39.0-53.0) % RDW (11.5-15.5) % Plt Count (150-450) k/uL PT (9.0-12.0) sec INR (<1.2) ABG pO2 (83-108) mmHg ABG Total CO2 (19-24) mmol/L Sodium (137-145) mmol/L Chloride (98-107) mmol/L BUN (9-20) mg/dL Creatinine (0.66-1.25) mg/dL Glucose (74-99) mg/dL POC Glucose (mg/dL) 198 H 221 H 176 H (75-99) mg/dL Calcium (8.4-10.2) mg/dL Magnesium (1.6-2.3) mg/dL Crossmatch 10/05/18 10/05/18 10/05/18 Range/Units 04:21 04:21 05:13 WBC 17.2 H (3.8-10.6) k/uL RBC 1.97 L (4.30-5.90) m/uL Hgb 6.4 L* (13.0-17.5) gm/dL Hct 19.1 L* (39.0-53.0) % RDW 16.4 H (11.5-15.5) % Plt Count 109 L (150-450) k/uL PT (9.0-12.0) sec INR (<1.2) ABG pO2 73 L (83-108) mmHg ABG Total CO2 25 H (19-24) mmol/L Sodium 146 H (137-145) mmol/L Chloride 116 H (98-107) mmol/L BUN 50 H (9-20) mg/dL Creatinine 1.58 H (0.66-1.25) mg/dL Glucose 138 H (74-99) mg/dL POC Glucose (mg/dL) (75-99) mg/dL Calcium 7.1 L (8.4-10.2) mg/dL Magnesium 2.4 H (1.6-2.3) mg/dL Crossmatch 10/05/18 10/05/18 10/05/18 Range/Units 05:28 08:05 08:16 WBC (3.8-10.6) k/uL RBC (4.30-5.90) m/uL Hgb (13.0-17.5) gm/dL Hct (39.0-53.0) % RDW (11.5-15.5) % Plt Count (150-450) k/uL PT 12.7 H (9.0-12.0) sec INR 1.2 H (<1.2) ABG pO2 (83-108) mmHg ABG Total CO2 (19-24) mmol/L Sodium (137-145) mmol/L Chloride (98-107) mmol/L BUN (9-20) mg/dL Creatinine (0.66-1.25) mg/dL Glucose (74-99) mg/dL POC Glucose (mg/dL) 163 H (75-99) mg/dL Calcium (8.4-10.2) mg/dL Magnesium (1.6-2.3) mg/dL Crossmatch See Detail Microbiology - Last 24 Hours (Table) 10/04/18 14:10 Catheter Tip Culture - Preliminary Catheter Tip 10/02/18 00:14 Blood Culture - Preliminary Blood No Growth after 72 hours 10/02/18 00:14 Blood Culture - Preliminary Blood No Growth after 72 hours 10/01/18 12:10 Anaerobic Culture - Final Abdomen Anaerobic Gm Negative Bacilli <Sandro Torrez - Last Filed: 10/05/18 15:29> Subjective As above. Patient is now off of Levophed. Kidney function is improved. Begin weaning trials per pulmonary. Monitor hemoglobin. Agree with plans for wound VAC. Objective - Vital Signs Vital signs: Vital Signs Temp 98.9 F 10/05/18 12:30 Pulse 106 H 10/05/18 15:00 Resp 29 H 10/05/18 15:00 BP 175/86 10/05/18 15:00 Pulse Ox 93 L 10/05/18 15:00 Intake & Output 10/04/18 10/05/18 10/05/18 18:59 06:59 18:59 Intake Total 3173.724 4748.400 1550.120 Output Total 1080 1660 2370 Balance 885.319 558.400 -819.880 Weight 137.2 kg Intake: IV 1447 1278 927 Mvi, Adult No.4 with Vit 690 495 K 10 ml Trace (Conc-1Ml/ Dose) 1 ml In Amino Acid 4.25%-D10w+Lytes*E* 1,000 ml @ 50 mls/hr IV . [id number] [facility] Rx#:[id number] Mvi, Adult No.4 with Vit 440 K 10 ml Trace (Conc-1Ml/ Dose) 1 ml In Amino Acid 4.25%-D10w+Lytes*E* 1,000 ml @ 55 mls/hr IV . [id number] [facility] Rx#:[id number] Piperacillin-Tazobactam 3 300 100 100 .375 gm In Sodium Chloride 0.9% 100 ml @ 25 mls/hr IVPB Q12H [facility] Rx# :[id number] Sodium Chloride 0.9% 1, 550 360 000 ml @ 20 mls/hr IV . Q24H [facility] Rx#:[id number] Sodium Chloride 0.9% 1, 300 000 ml @ 75 mls/hr IV . [id number] [facility] Rx#:[id number] metroNIDAZOLE-NS PMX 500 100 100 mg In Saline 1 100ml.bag @ 100 mls/hr IVPB Q6HR [facility] Rx#:[id number] pressure bag 57 33 27 Intake, IV Titration 518.319 940.400 313.120 Amount Diltiazem 125 mg In 125 107.417 Sodium Chloride 0.9% 100 ml @ 5 MG/HR 5 mls/hr IV .Q24H [facility] Rx#:[id number] Mvi, Adult No.4 with Vit 753.5 K 10 ml Trace (Conc-1Ml/ Dose) 1 ml In Amino Acid 4.25%-D10w+Lytes*E* 1,000 ml @ 55 mls/hr IV . [id number] [facility] Rx#:[id number] Norepinephrine 32 mg In 32.691 2.622 4.057 Sodium Chloride 0.9% 218 ml @ 0.05 MCG/KG/MIN 2. 658 mls/hr IV .Q24H [facility] Rx#:[id number] Propofol 1,000 mg In 360.628 184.278 201.646 Empty Bag 1 bag @ Titrate IV .Q0M [facility] Rx#: [id number] Oral 0 0 Blood Product 310 Rc As-1 Unit 310 [id number] Output: Drainage 15 Right Abdomen 15 Urine 1080 1145 2330 Stool 40 Emesis 500 Other: Voiding Method Indwelling Catheter Indwelling Catheter Indwelling Catheter ABP, PAP, CO, CI - Last Documented Arterial Blood Pressure 183/73 - Labs CBC & Chem 7: 10/05/18 04:21 10/05/18 04:21 Labs: Abnormal Lab Results - Last 24 Hours (Table) 10/04/18 10/04/18 10/05/18 Range/Units 17:26 23:04 04:21 WBC (3.8-10.6) k/uL RBC (4.30-5.90) m/uL Hgb (13.0-17.5) gm/dL Hct (39.0-53.0) % RDW (11.5-15.5) % Plt Count (150-450) k/uL PT (9.0-12.0) sec INR (<1.2) ABG pO2 (83-108) mmHg ABG Total CO2 (19-24) mmol/L Sodium 146 H (137-145) mmol/L Chloride 116 H (98-107) mmol/L BUN 50 H (9-20) mg/dL Creatinine 1.58 H (0.66-1.25) mg/dL Glucose 138 H (74-99) mg/dL POC Glucose (mg/dL) 221 H 176 H (75-99) mg/dL Calcium 7.1 L (8.4-10.2) mg/dL Magnesium 2.4 H (1.6-2.3) mg/dL Crossmatch 10/05/18 10/05/18 10/05/18 Range/Units 04:21 05:13 05:28 WBC 17.2 H (3.8-10.6) k/uL RBC 1.97 L (4.30-5.90) m/uL Hgb 6.4 L* (13.0-17.5) gm/dL Hct 19.1 L* (39.0-53.0) % RDW 16.4 H (11.5-15.5) % Plt Count 109 L (150-450) k/uL PT (9.0-12.0) sec INR (<1.2) ABG pO2 73 L (83-108) mmHg ABG Total CO2 25 H (19-24) mmol/L Sodium (137-145) mmol/L Chloride (98-107) mmol/L BUN (9-20) mg/dL Creatinine (0.66-1.25) mg/dL Glucose (74-99) mg/dL POC Glucose (mg/dL) 163 H (75-99) mg/dL Calcium (8.4-10.2) mg/dL Magnesium (1.6-2.3) mg/dL Crossmatch 10/05/18 10/05/18 10/05/18 Range/Units 08:05 08:16 11:58 WBC (3.8-10.6) k/uL RBC (4.30-5.90) m/uL Hgb (13.0-17.5) gm/dL Hct (39.0-53.0) % RDW (11.5-15.5) % Plt Count (150-450) k/uL PT 12.7 H (9.0-12.0) sec INR 1.2 H (<1.2) ABG pO2 (83-108) mmHg ABG Total CO2 (19-24) mmol/L Sodium (137-145) mmol/L Chloride (98-107) mmol/L BUN (9-20) mg/dL Creatinine (0.66-1.25) mg/dL Glucose (74-99) mg/dL POC Glucose (mg/dL) 199 H (75-99) mg/dL Calcium (8.4-10.2) mg/dL Magnesium (1.6-2.3) mg/dL Crossmatch See Detail Microbiology - Last 24 Hours (Table) 10/04/18 14:10 Catheter Tip Culture - Preliminary Catheter Tip 10/02/18 00:14 Blood Culture - Preliminary Blood No Growth after 72 hours 10/02/18 00:14 Blood Culture - Preliminary Blood No Growth after 72 hours 10/01/18 12:10 Anaerobic Culture - Final Abdomen Anaerobic Gm Negative Bacilli
[2018-10-05] MEDS ORDERED: FUROSEMIDE 10 MG/ML 4 ML VIAL IV ONE (12:00)
[2018-10-05 12:02] LABS: Glucose,Whole Blood 199 mg/dL (75-99)
[2018-10-05] MEDS ORDERED: LEVOFLOXACIN 250MG-D5W PMX 250 MG in DEXTROSE/WATER 1 50ML.BAG IVPB SCH (14:00)
[2018-10-05] MEDS: HYDROmorphone 1 MG/ML 1 ML SYRINGE IVP PRN (14:14)
[2018-10-05 17:25] LABS: HCT 22.4 % (39.0-53.0); HGB 7.7 gm/dL (13.0-17.5); MCH 33.4 pg (25.0-35.0); MCHC 34.4 g/dL (31.0-37.0); MCV 96.9 fL (80.0-100.0); Mean Platelet Volume 9.3; Platelet Count 128 k/uL (150-450); Poikilocytosis Slight; RBC 2.32 m/uL (4.30-5.90); RDW 15.9 % (11.5-15.5); WBC 18.9 k/uL (3.8-10.6)
[2018-10-05 18:12] LABS: Glucose,Whole Blood 186 mg/dL (75-99)
--- NOTE | 2018-10-05 19:47 | PN ---
PROGRESS NOTE DATE OF SERVICE: 10/05/2018. REASON FOR FOLLOWUP: Abdominal abscess from ruptured diverticulitis. INTERVAL HISTORY: The patient is currently afebrile. The patient is hemodynamically stable, currently off pressor support as of this morning. The patient remains to be intubated on the vent and sedated and unable to provide any history. PHYSICAL EXAMINATION: Blood pressure 183/73 with a pulse of 106. Temperature 98. He is 93% on 50% FiO2. General description is an elderly male lying in bed in no distress. Respiratory system: Unlabored breathing. Clear to auscultation anteriorly. Heart S1, S2. Regular rate and rhythm. ABDOMEN: Soft. The lower end of the incision is currently open with no evidence of any slough tissue or surrounding redness. Stomal with slight black discoloration. LABS: Hemoglobin is 6.4, white count 13.2, BUN of 15, creatinine 1.58. DIAGNOSTIC IMPRESSION AND PLAN: Patient with abdominal abscess from ruptured sigmoid diverticulitis, status post diverting colostomy. The patient had multiple cultures positive for E coli, Pseudomonas anaerobic gram-negative bacilli. The patient covered with Zosyn, to continue. Local wound care to the incision will be a wound VAC as per discussion with the surgical team. Monitor clinical course closely. Continue supportive care. MMODL / IJN: [id number] / ELSA
[2018-10-05] MEDS: PANTOPRAZOLE 40 MG/10 ML VIAL IVP SCH (20:28)
[2018-10-05] MEDS: NOREPINEPHRINE 32 MG in SODIUM CHLORIDE 0.9% 218 ML IV SCH (21:19)
--- NOTE | 2018-10-05 22:17 | P.PN ---
Progress Note - Text Progress Note Date: 10/05/18 Presenting complaint: Perforated viscus Interval history: Patient admitted with acute abdomen. Found to have perforated acute diverticulitis. . Had a sigmoid colectomy and has a drain in place with partial closure of the abdomen. NG tube in place. Bishop catheter in place Today-. Remains in the ICU. . On the ventilator. FiO2 50% and a PEEP of 10. NG tube remains in place. Had some coffee-ground emesis. Urine output has been adequate about 75 mL an hour. SAMY and has minimal output. Did get a unit of blood today. Patient has gone into sinus rhythm. Taken off levo fed and Cardizem drip this morning. Review of systems: Unable to obtain as patient is intubated Current medications reviewed that included: IV Cardizem-held, IV Flagyl, IV norepinephrine-held, IV Zosyn, IV propofol On examination: VITAL SIGNS: 98.9, 69, 20, 104/47, 95% on ventilator GENERAL: Laying in bed intubated. EYES: Pupils equal. Conjunctiva normal. HEENT: External appearance of nose and ears normal, NG tube in place. NECK: JVD unable to assess; masses not palpable. HEART: Heart sounds irregular , no edema. LUNGS: Respiratory rate increased; decreased breath sounds. ABDOMEN: left-sided colostomy with very small amount of stool, dressing in place with a SAMY drain, tender, no mass palpable. Ostomy itself is rather dark colored PSYCH: Sedated and unable to assessl. NEUROLOGICAL: Cranial nerves grossly intact; no facial asymmetry, pupils reactive Investigations reviewed in the clinical context White count 17.2, hemoglobin 6.4, sodium 146, potassium 3.7, BUN 50, creatinine 1.58 Assessment: -Acute perforated sigmoid diverticulitis with secondary peritonitis, slow to respond -Sigmoid colectomy with a resultant colostomy and a SAMY drain in place -Hypotensive and septic shock, requiring pressure support slow to respond -Acute renal failure, ATN from septic shock, slow to respond -Persistent atrial flutter,, heart rate better controlled, today in sinus rhythm -Coronary artery disease with prior history of stent and bypass -Hyperlipidemia -Essential hypertension history of -Primary osteoarthritis -BPH -Hypothyroidism -Chronic gout -PTSD -Coumadin monitoring. Status post vitamin K and fresh frozen plasma. Plan: Remains critically ill. Slow to respond. Getting a unit of blood. This morning IV Cardizem and IV Cardizem has been held. Antibiotics are to continue. Ostomy does not look healthy. Follow closely
[2018-10-06 00:40] LABS: Glucose,Whole Blood 135 mg/dL (75-99)
[2018-10-06] MEDS: INSULIN ASPART (NovoLOG) 100 UNIT/ML VIAL SQ SCH ×4 (00:41→18:33)
[2018-10-06] MEDS: MVI, ADULT NO.4 WITH VIT K 10 ML, TRACE (CONC-1ML/DOSE) 1 ML in AMINO ACID 4.25%-D10W+L... IV SCH ×6 (00:53→18:33)
[2018-10-06] MEDS: PROPOFOL 1,000 MG in EMPTY BAG 1 BAG IV SCH ×7 (02:06→22:10)
[2018-10-06] MEDS: IPRATROPIUM-ALBUTEROL 3 ML NEB INHALATION SCH ×6 (03:17→23:35)
[2018-10-06 04:02] LABS: ABG HCO3 26 mmol/L (21-25); ABG Oxygen Saturation 95.7 % (94-97); ABG PCO2 36 mmHg (35-45); ABG PH 7.47 (7.35-7.45); ABG PO2 74 mmHg (83-108); ABG TCO2 27 mmol/L (19-24)
[2018-10-06 04:42] LABS: Allen Test Performed? no
[2018-10-06 06:02] LABS: Glucose,Whole Blood 132 mg/dL (75-99)
[2018-10-06] MEDS: metroNIDAZOLE-NS PMX 500 MG in SALINE 1 100ML.BAG IVPB SCH ×4 (06:06→18:33)
[2018-10-06] MEDS: SODIUM CHLORIDE 0.9% 1,000 ML IV SCH (06:08)
[2018-10-06 06:16] LABS: Anisocytosis Slight; HCT 22.6 % (39.0-53.0); HGB 7.3 gm/dL (13.0-17.5); MCH 31.6 pg (25.0-35.0); MCHC 32.4 g/dL (31.0-37.0); MCV 97.7 fL (80.0-100.0); Macrocytosis Slight; Mean Platelet Volume 8.9; Platelet Count 143 k/uL (150-450); Poikilocytosis Slight; RBC 2.31 m/uL (4.30-5.90); RDW 16.3 % (11.5-15.5); WBC 20.3 k/uL (3.8-10.6)
[2018-10-06 06:33] LABS: Calcium 7.3 mg/dL (8.4-10.2); Magnesium 2.3 mg/dL (1.6-2.3); Phosphorus 2.6 mg/dL (2.5-4.5); Potassium 3.4 mmol/L (3.5-5.1)
[2018-10-06] MEDS ORDERED: POTASSIUM BICARBONATE/CIT AC 20 MEQ TABLET.EFF NG-TUBE SCH (08:00)
--- NOTE | 2018-10-06 08:20 | P.PN ---
Subjective Patient is seen in follow-up for acute kidney injury on chronic kidney disease. Patient has chronic kidney disease stage III with baseline creatinine in the range of 1.1-1.3. Patient presented with abdominal pain and was noted to have perforated diverticulitis with fecal peritonitis. He underwent exploratory laparotomy and abscess drainage in October 01. He is currently intubated and sedated. Levophed was discontinued on October 05. Remains nonoliguric. Hemoglobin was down to 6.4 yesterday and he did receive a unit of blood. It is 7.3 today. Vital signs are stable. General: The patient appeared well nourished and normally developed. HEENT: Head exam is unremarkable. Neck is without jugular venous distension. Intubated. LUNGS: Breath sounds decreased. HEART: Regular rate and rhythm. ABDOMEN: Abdominal exam reveals decreased bowel sounds. No active drainage noted. EXTREMITITES: 1+ edema. Objective - Vital Signs Vital signs: Vital Signs Temp 98.8 F 10/06/18 04:00 Pulse 74 10/06/18 07:49 Resp 21 10/06/18 07:00 BP 131/64 10/06/18 07:00 Pulse Ox 95 10/06/18 07:00 Intake & Output 10/05/18 10/06/18 10/06/18 18:59 06:59 18:59 Intake Total 5143.135 1253.300 195 Output Total 3570 1755 150 Balance -1650.482 723.300 45 Weight 135.8 kg Intake: IV 1261 1136 195 Mvi, Adult No.4 with Vit 605 660 55 K 10 ml Trace (Conc-1Ml/ Dose) 1 ml In Amino Acid 4.25%-D10w+Lytes*E* 1,000 ml @ 55 mls/hr IV . [id number] [facility] Rx#:[id number] Piperacillin-Tazobactam 3 100 .375 gm In Sodium Chloride 0.9% 100 ml @ 25 mls/hr IVPB Q12H [facility] Rx# :[id number] Piperacillin-Tazobactam 3 100 100 .375 gm In Sodium Chloride 0.9% 100 ml @ 25 mls/hr IVPB Q8HR [facility] Rx# :[id number] Sodium Chloride 0.9% 1, 420 240 20 000 ml @ 20 mls/hr IV . Q24H [facility] Rx#:[id number] metroNIDAZOLE-NS PMX 500 100 100 mg In Saline 1 100ml.bag @ 100 mls/hr IVPB Q6HR [facility] Rx#:[id number] pressure bag 36 36 20 Intake, IV Titration 016.425 9600.300 Amount Diltiazem 125 mg In 107.417 Sodium Chloride 0.9% 100 ml @ 5 MG/HR 5 mls/hr IV .Q24H [facility] Rx#:[id number] Mvi, Adult No.4 with Vit 1011 K 10 ml Trace (Conc-1Ml/ Dose) 1 ml In Amino Acid 4.25%-D10w+Lytes*E* 1,000 ml @ 55 mls/hr IV . [id number] [facility] Rx#:[id number] Norepinephrine 32 mg In 4.057 Sodium Chloride 0.9% 218 ml @ 0.05 MCG/KG/MIN 2. 658 mls/hr IV .Q24H [facility] Rx#:[id number] Propofol 1,000 mg In 237.044 331.300 Empty Bag 1 bag @ Titrate IV .Q0M [facility] Rx#: [id number] Oral 0 Blood Product 310 Rc As-1 Unit 310 [id number] Output: Gastric Drainage 200 Urine 3330 1755 150 Stool 40 Other: Voiding Method Indwelling Catheter Indwelling Catheter ABP, PAP, CO, CI - Last Documented Arterial Blood Pressure 133/47 - Labs CBC & Chem 7: 10/06/18 05:50 10/06/18 05:50 Labs: Abnormal Lab Results - Last 24 Hours (Table) 10/05/18 10/05/18 10/05/18 Range/Units 08:05 08:16 11:58 WBC (3.8-10.6) k/uL RBC (4.30-5.90) m/uL Hgb (13.0-17.5) gm/dL Hct (39.0-53.0) % RDW (11.5-15.5) % Plt Count (150-450) k/uL PT 12.7 H (9.0-12.0) sec INR 1.2 H (<1.2) ABG pH (7.35-7.45) ABG pO2 (83-108) mmHg ABG HCO3 (21-25) mmol/L ABG Total CO2 (19-24) mmol/L Sodium (137-145) mmol/L Potassium (3.5-5.1) mmol/L Chloride (98-107) mmol/L BUN (9-20) mg/dL Glucose (74-99) mg/dL POC Glucose (mg/dL) 199 H (75-99) mg/dL Calcium (8.4-10.2) mg/dL Crossmatch See Detail 10/05/18 10/05/18 10/06/18 Range/Units 17:10 18:11 00:39 WBC 18.9 H (3.8-10.6) k/uL RBC 2.32 L (4.30-5.90) m/uL Hgb 7.7 L (13.0-17.5) gm/dL Hct 22.4 L (39.0-53.0) % RDW 15.9 H (11.5-15.5) % Plt Count 128 L (150-450) k/uL PT (9.0-12.0) sec INR (<1.2) ABG pH (7.35-7.45) ABG pO2 (83-108) mmHg ABG HCO3 (21-25) mmol/L ABG Total CO2 (19-24) mmol/L Sodium (137-145) mmol/L Potassium (3.5-5.1) mmol/L Chloride (98-107) mmol/L BUN (9-20) mg/dL Glucose (74-99) mg/dL POC Glucose (mg/dL) 186 H 135 H (75-99) mg/dL Calcium (8.4-10.2) mg/dL Crossmatch 10/06/18 10/06/18 10/06/18 Range/Units 04:01 05:50 05:50 WBC 20.3 H (3.8-10.6) k/uL RBC 2.31 L (4.30-5.90) m/uL Hgb 7.3 L (13.0-17.5) gm/dL Hct 22.6 L (39.0-53.0) % RDW 16.3 H (11.5-15.5) % Plt Count 143 L (150-450) k/uL PT (9.0-12.0) sec INR (<1.2) ABG pH 7.47 H (7.35-7.45) ABG pO2 74 L (83-108) mmHg ABG HCO3 26 H (21-25) mmol/L ABG Total CO2 27 H (19-24) mmol/L Sodium 148 H (137-145) mmol/L Potassium 3.4 L (3.5-5.1) mmol/L Chloride 117 H (98-107) mmol/L BUN 50 H (9-20) mg/dL Glucose 134 H (74-99) mg/dL POC Glucose (mg/dL) (75-99) mg/dL Calcium 7.3 L (8.4-10.2) mg/dL Crossmatch 10/06/18 Range/Units 06:01 WBC (3.8-10.6) k/uL RBC (4.30-5.90) m/uL Hgb (13.0-17.5) gm/dL Hct (39.0-53.0) % RDW (11.5-15.5) % Plt Count (150-450) k/uL PT (9.0-12.0) sec INR (<1.2) ABG pH (7.35-7.45) ABG pO2 (83-108) mmHg ABG HCO3 (21-25) mmol/L ABG Total CO2 (19-24) mmol/L Sodium (137-145) mmol/L Potassium (3.5-5.1) mmol/L Chloride (98-107) mmol/L BUN (9-20) mg/dL Glucose (74-99) mg/dL POC Glucose (mg/dL) 132 H (75-99) mg/dL Calcium (8.4-10.2) mg/dL Crossmatch Microbiology - Last 24 Hours (Table) 10/02/18 00:14 Blood Culture - Preliminary Blood No Growth after 96 hours 10/02/18 00:14 Blood Culture - Preliminary Blood No Growth after 96 hours 10/04/18 14:10 Catheter Tip Culture - Preliminary Catheter Tip Assessment and Plan Plan: Assessment: 1. Acute kidney injury secondary to ATN secondary to septic shock. Creatinine peaked at 2.9 this admission and is down to 1.25 today. 2. Chronic kidney disease stage III secondary to nephrosclerosis with basic creatinine in the range of 1.1-1.3. 3. Septic shock secondary to perforated diverticulitis with fecal peritonitis. Status post exploratory laparotomy with sigmoid colectomy with end colostomy and drainage of abscess on October 01. Maintain on IV antibiotics. 4. A. fib with RVR. Off Cardizem drip. Heart rate controlled. 5. Metabolic acidosis secondary to acute kidney injury as well as IV fluids. Better. 6. Acute blood loss anemia. Status post blood transfusion on October 05. 7. Hypernatremia secondary to lack of oral water intake. 8. Hypokalemia secondary to diuresis. Magnesium normal. Plan: Maintain TPN. Start D5W at 50 mL an hour. Replace potassium. 60 mg once today. Continue to monitor renal function and urine output.
--- NOTE | 2018-10-06 08:44 | XR ---
EXAMINATION TYPE: XR chest 1V portable DATE OF EXAM: 10/06/2018 COMPARISON: 2719 HISTORY: SOB, Follow Up FINDINGS: Indwelling tubes and catheters are unchanged. No change in bibasilar opacities. Stable appearance of the cardio-mediastinal structures at this time. Pleural effusion unchanged. IMPRESSION: 1. Stable portable chest. Clinical correlation and follow up until resolution is recommended.
[2018-10-06] MEDS: CHLORHEXIDINE GLUCONATE 15 ML CUP MUCOUS MEM SCH ×2 (09:36→20:17)
[2018-10-06] MEDS: PANTOPRAZOLE 40 MG/10 ML VIAL IVP SCH ×2 (09:36→20:17)
[2018-10-06] MEDS: POTASSIUM CHLORIDE 20 MEQ in WATER FOR INJECTION 1 100ML.BAG IVPB SCH ×3 (09:36→15:23)
[2018-10-06] MEDS: PIPERACILLIN-TAZOBACTAM 3.375 GM in SODIUM CHLORIDE 0.9% 100 ML IVPB SCH ×4 (09:36→15:24)
[2018-10-06] MEDS: DEXTROSE 5% IN WATER 1,000 ML IV SCH (09:38)
--- NOTE | 2018-10-06 09:55 | P.PN ---
<NeftaliDeniseLeonor A - Last Filed: 10/06/18 09:52> Subjective Progress Note Date: 10/06/18 CHIEF COMPLAINT: Abdominal pain HISTORY OF PRESENT ILLNESS: Patient is status post exploratory laparotomy, sigmoid colectomy with end colostomy, and drainage of abscess secondary to perforated diverticulitis. Patient remains on mechanical ventilation in the ICU. Vasopressors remain off. BP stable. TPN infusing. NG with mixture of bilious and dark bloody drainage, improved from yesterday. Patient given sedation holiday yesterday but no weaning thus far. Remains on 50% Fio2. WBC 20.3. Hemoglobin 7.3 today s/p RBC transfusion. PHYSICAL EXAM: VITAL SIGNS: Reviewed. GENERAL: Well-developed. Remains on mechanical ventilation. HEENT: ET noted. NG to LIS. No sclera icterus. Extraocular movements grossly intact. Moist buccal mucosa. Head is atraumatic, normocephalic. ABDOMEN: Dressing to abdomen clean dry intact. Packing present. Ostomy intact with small amount of bloody drainage. Majority of stomy appears to be ischemic. SAMY drain noted to right lower quadrant. NEUROLOGIC: Unable to assess secondary to mechanical ventilation ASSESSMENT: 1. Perforated diverticulitis, status post exploratory laparotomy, sigmoid colectomy with end colostomy, and drainage of abscess 2. Sepsis 3. Peritonitis PLAN: 1. Ventilator management per Dr. Ridley 2. Wound vac to be applied to abdominal wound today 3. Continue NG to LIS 4. Continue TPN 5. Monitor CBC 6. Continue IV Protonix Nurse practitioner note has been reviewed by physician. Signing provider agrees with the documented findings, assessment, and plan of care. Objective - Vital Signs Vital signs: Vital Signs Temp 98.8 F 10/06/18 04:00 Pulse 74 10/06/18 07:49 Resp 21 10/06/18 07:00 BP 131/64 10/06/18 07:00 Pulse Ox 95 10/06/18 07:00 Intake & Output 10/05/18 10/06/18 10/06/18 18:59 06:59 18:59 Intake Total 9814.330 7367.300 682.65 Output Total 3570 1755 450 Balance -1650.482 723.300 232.65 Weight 135.8 kg Intake: IV 1261 1136 591 Dextrose 5% in Water 1, 60 000 ml @ 60 mls/hr IV . [id number] [facility] Rx#:[id number] Mvi, Adult No.4 with Vit 605 660 165 K 10 ml Trace (Conc-1Ml/ Dose) 1 ml In Amino Acid 4.25%-D10w+Lytes*E* 1,000 ml @ 55 mls/hr IV . [id number] [facility] Rx#:[id number] Piperacillin-Tazobactam 3 100 .375 gm In Sodium Chloride 0.9% 100 ml @ 25 mls/hr IVPB Q12H [facility] Rx# :[id number] Piperacillin-Tazobactam 3 100 100 100 .375 gm In Sodium Chloride 0.9% 100 ml @ 25 mls/hr IVPB Q8HR [facility] Rx# :[id number] Potassium Chloride 20 meq 100 In Water For Injection 1 100ml.bag @ 50 mls/hr IVPB Q2H [facility] Rx#: [id number] Sodium Chloride 0.9% 1, 420 240 40 000 ml @ 20 mls/hr IV . Q24H [facility] Rx#:[id number] metroNIDAZOLE-NS PMX 500 100 100 mg In Saline 1 100ml.bag @ 100 mls/hr IVPB Q6HR [facility] Rx#:[id number] pressure bag 36 36 26 Intake, IV Titration 206.755 1458.300 91.65 Amount Diltiazem 125 mg In 107.417 Sodium Chloride 0.9% 100 ml @ 5 MG/HR 5 mls/hr IV .Q24H [facility] Rx#:[id number] Mvi, Adult No.4 with Vit 1011 K 10 ml Trace (Conc-1Ml/ Dose) 1 ml In Amino Acid 4.25%-D10w+Lytes*E* 1,000 ml @ 55 mls/hr IV . [id number] [facility] Rx#:[id number] Norepinephrine 32 mg In 4.057 Sodium Chloride 0.9% 218 ml @ 0.05 MCG/KG/MIN 2. 658 mls/hr IV .Q24H [facility] Rx#:[id number] Propofol 1,000 mg In 237.044 331.300 91.65 Empty Bag 1 bag @ Titrate IV .Q0M [facility] Rx#: [id number] Oral 0 Blood Product 310 Rc As-1 Unit 310 [id number] Output: Gastric Drainage 200 Urine 3330 1755 450 Stool 40 Other: Voiding Method Indwelling Catheter Indwelling Catheter ABP, PAP, CO, CI - Last Documented Arterial Blood Pressure 133/47 - Labs CBC & Chem 7: 10/06/18 05:50 10/06/18 05:50 Labs: Abnormal Lab Results - Last 24 Hours (Table) 10/05/18 10/05/18 10/05/18 Range/Units 08:05 11:58 17:10 WBC 18.9 H (3.8-10.6) k/uL RBC 2.32 L (4.30-5.90) m/uL Hgb 7.7 L (13.0-17.5) gm/dL Hct 22.4 L (39.0-53.0) % RDW 15.9 H (11.5-15.5) % Plt Count 128 L (150-450) k/uL ABG pH (7.35-7.45) ABG pO2 (83-108) mmHg ABG HCO3 (21-25) mmol/L ABG Total CO2 (19-24) mmol/L Sodium (137-145) mmol/L Potassium (3.5-5.1) mmol/L Chloride (98-107) mmol/L BUN (9-20) mg/dL Glucose (74-99) mg/dL POC Glucose (mg/dL) 199 H (75-99) mg/dL Calcium (8.4-10.2) mg/dL Crossmatch See Detail 10/05/18 10/06/18 10/06/18 Range/Units 18:11 00:39 04:01 WBC (3.8-10.6) k/uL RBC (4.30-5.90) m/uL Hgb (13.0-17.5) gm/dL Hct (39.0-53.0) % RDW (11.5-15.5) % Plt Count (150-450) k/uL ABG pH 7.47 H (7.35-7.45) ABG pO2 74 L (83-108) mmHg ABG HCO3 26 H (21-25) mmol/L ABG Total CO2 27 H (19-24) mmol/L Sodium (137-145) mmol/L Potassium (3.5-5.1) mmol/L Chloride (98-107) mmol/L BUN (9-20) mg/dL Glucose (74-99) mg/dL POC Glucose (mg/dL) 186 H 135 H (75-99) mg/dL Calcium (8.4-10.2) mg/dL Crossmatch 10/06/18 10/06/18 10/06/18 Range/Units 05:50 05:50 06:01 WBC 20.3 H (3.8-10.6) k/uL RBC 2.31 L (4.30-5.90) m/uL Hgb 7.3 L (13.0-17.5) gm/dL Hct 22.6 L (39.0-53.0) % RDW 16.3 H (11.5-15.5) % Plt Count 143 L (150-450) k/uL ABG pH (7.35-7.45) ABG pO2 (83-108) mmHg ABG HCO3 (21-25) mmol/L ABG Total CO2 (19-24) mmol/L Sodium 148 H (137-145) mmol/L Potassium 3.4 L (3.5-5.1) mmol/L Chloride 117 H (98-107) mmol/L BUN 50 H (9-20) mg/dL Glucose 134 H (74-99) mg/dL POC Glucose (mg/dL) 132 H (75-99) mg/dL Calcium 7.3 L (8.4-10.2) mg/dL Crossmatch Microbiology - Last 24 Hours (Table) 10/02/18 00:14 Blood Culture - Preliminary Blood No Growth after 96 hours 10/02/18 00:14 Blood Culture - Preliminary Blood No Growth after 96 hours 10/04/18 14:10 Catheter Tip Culture - Preliminary Catheter Tip <Sandro Torrez - Last Filed: 10/06/18 15:23> Subjective As above. Patient doing better. Off pressors now. Creatinine improved. White blood cell count increasing slightly. Abdomen soft with minimal tenderness. Wound is clean. Ostomy still looks ischemic superficially. No peristomal erythema or tenderness noted. Objective - Vital Signs Vital signs: Vital Signs Temp 98.8 F 10/06/18 12:00 Pulse 82 10/06/18 12:30 Resp 22 10/06/18 12:30 BP 116/55 10/06/18 12:30 Pulse Ox 97 10/06/18 12:30 Intake & Output 10/05/18 10/06/18 10/06/18 18:59 06:59 18:59 Intake Total 2058.907 1781.300 1845.995 Output Total 3570 1755 1300 Balance -1650.482 723.300 545.995 Weight 135.8 kg 135.8 kg Intake: IV 1261 1136 1639 Dextrose 5% in Water 1, 420 000 ml @ 60 mls/hr IV . [id number] [facility] Rx#:[id number] Mvi, Adult No.4 with Vit 605 660 535 K 10 ml Trace (Conc-1Ml/ Dose) 1 ml In Amino Acid 4.25%-D10w+Lytes*E* 1,000 ml @ 65 mls/hr IV . [id number] [facility] Rx#:[id number] Piperacillin-Tazobactam 3 100 .375 gm In Sodium Chloride 0.9% 100 ml @ 25 mls/hr IVPB Q12H [facility] Rx# :[id number] Piperacillin-Tazobactam 3 100 100 100 .375 gm In Sodium Chloride 0.9% 100 ml @ 25 mls/hr IVPB Q8HR [facility] Rx# :[id number] Potassium Chloride 20 meq 300 In Water For Injection 1 100ml.bag @ 50 mls/hr IVPB Q2H [facility] Rx#: [id number] Sodium Chloride 0.9% 1, 420 240 40 000 ml @ 20 mls/hr IV . Q24H [facility] Rx#:[id number] metroNIDAZOLE-NS PMX 500 100 200 mg In Saline 1 100ml.bag @ 100 mls/hr IVPB Q6HR [facility] Rx#:[id number] pressure bag 36 36 44 Intake, IV Titration 140.776 8059.300 206.995 Amount Diltiazem 125 mg In 107.417 Sodium Chloride 0.9% 100 ml @ 5 MG/HR 5 mls/hr IV .Q24H [facility] Rx#:[id number] Mvi, Adult No.4 with Vit 1011 K 10 ml Trace (Conc-1Ml/ Dose) 1 ml In Amino Acid 4.25%-D10w+Lytes*E* 1,000 ml @ 65 mls/hr IV . [id number] [facility] Rx#:[id number] Norepinephrine 32 mg In 4.057 Sodium Chloride 0.9% 218 ml @ 0.05 MCG/KG/MIN 2. 658 mls/hr IV .Q24H [facility] Rx#:[id number] Propofol 1,000 mg In 237.044 331.300 206.995 Empty Bag 1 bag @ Titrate IV .Q0M [facility] Rx#: [id number] Oral 0 Blood Product 310 Rc As-1 Unit 310 [id number] Output: Gastric Drainage 200 Urine 3330 1755 1300 Stool 40 Other: Voiding Method Indwelling Catheter Indwelling Catheter Indwelling Catheter ABP, PAP, CO, CI - Last Documented Arterial Blood Pressure 130/52 - Labs CBC & Chem 7: 10/06/18 05:50 10/06/18 05:50 Labs: Abnormal Lab Results - Last 24 Hours (Table) 10/05/18 10/05/18 10/06/18 Range/Units 17:10 18:11 00:39 WBC 18.9 H (3.8-10.6) k/uL RBC 2.32 L (4.30-5.90) m/uL Hgb 7.7 L (13.0-17.5) gm/dL Hct 22.4 L (39.0-53.0) % RDW 15.9 H (11.5-15.5) % Plt Count 128 L (150-450) k/uL ABG pH (7.35-7.45) ABG pO2 (83-108) mmHg ABG HCO3 (21-25) mmol/L ABG Total CO2 (19-24) mmol/L Sodium (137-145) mmol/L Potassium (3.5-5.1) mmol/L Chloride (98-107) mmol/L BUN (9-20) mg/dL Glucose (74-99) mg/dL POC Glucose (mg/dL) 186 H 135 H (75-99) mg/dL Calcium (8.4-10.2) mg/dL 10/06/18 10/06/18 10/06/18 Range/Units 04:01 05:50 05:50 WBC 20.3 H (3.8-10.6) k/uL RBC 2.31 L (4.30-5.90) m/uL Hgb 7.3 L (13.0-17.5) gm/dL Hct 22.6 L (39.0-53.0) % RDW 16.3 H (11.5-15.5) % Plt Count 143 L (150-450) k/uL ABG pH 7.47 H (7.35-7.45) ABG pO2 74 L (83-108) mmHg ABG HCO3 26 H (21-25) mmol/L ABG Total CO2 27 H (19-24) mmol/L Sodium 148 H (137-145) mmol/L Potassium 3.4 L (3.5-5.1) mmol/L Chloride 117 H (98-107) mmol/L BUN 50 H (9-20) mg/dL Glucose 134 H (74-99) mg/dL POC Glucose (mg/dL) (75-99) mg/dL Calcium 7.3 L (8.4-10.2) mg/dL 10/06/18 10/06/18 Range/Units 06:01 11:49 WBC (3.8-10.6) k/uL RBC (4.30-5.90) m/uL Hgb (13.0-17.5) gm/dL Hct (39.0-53.0) % RDW (11.5-15.5) % Plt Count (150-450) k/uL ABG pH (7.35-7.45) ABG pO2 (83-108) mmHg ABG HCO3 (21-25) mmol/L ABG Total CO2 (19-24) mmol/L Sodium (137-145) mmol/L Potassium (3.5-5.1) mmol/L Chloride (98-107) mmol/L BUN (9-20) mg/dL Glucose (74-99) mg/dL POC Glucose (mg/dL) 132 H 175 H (75-99) mg/dL Calcium (8.4-10.2) mg/dL Microbiology - Last 24 Hours (Table) 10/02/18 00:14 Blood Culture - Preliminary Blood No Growth after 96 hours 10/02/18 00:14 Blood Culture - Preliminary Blood No Growth after 96 hours
--- NOTE | 2018-10-06 10:55 | PN ---
PROGRESS NOTE DATE OF SERVICE: 10/06/2018 This is an 82-year-old male with a history of admission back on September 30. The patient presented to the emergency department with an episode of abdominal discomfort and was found to have a small-bowel obstruction. Subsequent to that, he was intubated and taken to the operating room on the and underwent a sigmoid colectomy and colostomy for perforated diverticular abscess. The surgery was done by Dr. Rony Woodward. Currently, the patient remains on the mechanical ventilator. He is on the volume assist-control mode rate of 20, tidal volume 500, FiO2 of 50%, PEEP of 10. Blood gases are reasonable showing a pO2 of 74, pCO2 of 36, and pH of 7.47. In addition, he remains on sedation with propofol 40 mcg/kg per minute, TPN at 55 mL an hour, D5W at 60 mL an hour. His norepinephrine has been weaned off. The patient was on much higher doses of Levophed a couple days ago. He was up to 32 or 33 mcg, that has now been weaned off completely. In addition, because of atrial fibrillation, he was on Cardizem, but that has also been weaned off. His wound cultures are showing evidence of both Escherichia coli and Pseudomonas aeruginosa. He remains on Flagyl and Zosyn. His night last night was relatively uneventful. I have been speaking to the family on a daily basis. PHYSICAL EXAMINATION: VITAL SIGNS: Current vital signs are reviewed. Temperature is 98.8, heart rate 74, respiratory rate 21, he is set at 20 on the ventilator, blood pressure 131/64, mean 86 and saturations are 95%. Appears in no acute distress. Well sedated. HEENT: Examination is grossly unremarkable. There is an orally placed endotracheal tube and NG tube. NECK: Supple. Full range of motion. No adenopathy. Neck veins are flat. CARDIOVASCULAR: Examination reveals regular rhythm rate. Heart rate in the 70s. S1, S2 normal. LUNGS: Reveal a few scattered coarse rhonchi. Breath sounds are equal. A few scattered crackles are also appreciated. ABDOMEN: Soft. No bowel sounds. EXTREMITIES: Are intact. Mild edema. SKIN: Without rash. NEUROLOGIC: Examination cannot be adequately assessed as the patient is heavily sedated. LABORATORY DATA: Laboratory data includes a white count 20.3, hemoglobin 7.3, hematocrit 22.6, platelet count 143,000. Sodium 148, potassium 3.4, chloride 117, CO2 is 26, BUN and creatinine were 50 and 1.25. Microbiologic studies are showing E coli and Pseudomonas aeruginosa in the wounds on October 04. X-RAY: Chest x-ray shows some small infiltrates or atelectasis or effusions at the bases. MEDICATIONS: Medications are reviewed. ASSESSMENT: 1. Postoperative day #5, status post sigmoid colectomy and colostomy for perforated diverticular abscess. 2. Abdominal sepsis secondary to Escherichia coli and Pseudomonas aeruginosa. 3. Routine postoperative ventilator management with failure to wean thus far. 4. Paroxysmal atrial fibrillation. 5. Hypotension, secondary to sepsis, requiring norepinephrine, now resolved. 6. Benign essential hypertension. 7. Hyperlipidemia. 8. Degenerative joint disease. 9. Hypothyroidism. PLAN: The patient will continue to be followed very closely. He has made progress in that his norepinephrine has been weaned off. The patient did receive 1 unit of blood. We changed his fluids from what he was on to D5W at 60 mL an hour because of his hypernatremia and hyperchloremia. He remains on Diprivan. We will do a daily interruption of sedation. Additional recommendations and suggestions are forthcoming. Overall prognosis remains very guarded. CRITICAL CARE TIME: 33 minutes. MMODL / IJN: [id number] /
[2018-10-06 11:52] LABS: Glucose,Whole Blood 175 mg/dL (75-99)
--- NOTE | 2018-10-06 13:07 | PN ---
PROGRESS NOTE DATE OF SERVICE: 10/06/2018 REASON FOR FOLLOWUP: Abdominal abscess from ruptured diverticulitis. INTERVAL HISTORY: The patient is currently afebrile. The patient is hemodynamically stable. The patient's Fi02 currently stable. NG to suction. No other changes reported by the nursing staff. PHYSICAL EXAMINATION: On examination, blood pressure 124/56, pulse of 84, temperature 98. He is 95% on 50% FiO2. General description is an elderly male lying in bed in no distress. RESPIRATORY SYSTEM: Unlabored breathing, clear to auscultation anteriorly. HEART: S1, S2. Regular rate and rhythm. ABDOMEN: Soft. LABS: Hemoglobin 7.3, white count 20.3 with a BUN of 50, creatinine 1.25. DIAGNOSTIC IMPRESSION AND PLAN: Patient with abdominal abscess from ruptured diverticulitis. Culture positive for Escherichia coli, Pseudomonas anaerobic gram-negative. Patient is covered with Zosyn, will continue while monitoring clinical course closely and continue with supportive care. MMODL / IJN: [id number] / MTDD
--- NOTE | 2018-10-06 16:10 | PN ---
PROGRESS NOTE DATE OF SERVICE: Mr. Martinez is in sinus rhythm. He is resting comfortably. He is not on any pressors. Hemodynamically stable. Neurological status has not been assessed. He is making urine. S1, S2 heard normally. Short systolic murmur noted. Lungs reveal diminished air entry. Abdomen and lower extremity exam unchanged. From a cardiac standpoint, no new suggestions. We will continue supportive care and see how he does. Prognosis remains guarded. Patient cardiac-mckeon is stable, maintaining sinus rhythm. He also has a question of GI bleed. We may resume his Coumadin after his GI bleed issue clears up and we have the okay from the surgeon. Patient's colostomy is doing well. MMODL / IJN: [id number] /
[2018-10-06 18:11] LABS: Glucose,Whole Blood 163 mg/dL (75-99)
--- NOTE | 2018-10-06 19:14 | P.PN ---
Progress Note - Text Progress Note Date: 10/06/18 Presenting complaint: Perforated viscus Interval history: Patient admitted perforated acute diverticulitis. . Had a sigmoid colectomy and has a drain in place with partial closure of the incision. NG tube in place. Bishop catheter in place Today-. Remains in the ICU. . NG tube remains in place. On the ventilator. FiO2 15 of PEEP of 5. Propofol drip running at 40 mics. Also getting PPN. Telemetry shows sinus rhythm. NG tube remains in place. Coffee-ground aspirate. Review of systems: Unable to obtain as patient is intubated Current medications reviewed that included: IV Flagyl, IV Zosyn, PPN, IV propofol On examination: VITAL SIGNS: r 98.6, 86, 31, 124/59, 95% on a ventilator GENERAL: Laying in bed intubated. EYES: Pupils equal. Conjunctiva normal. HEENT: External appearance of nose and ears normal, NG tube in place. NECK: JVD unable to assess; masses not palpable. HEART: Heart sounds irregular , no edema. LUNGS: Respiratory rate increased; decreased breath sounds. ABDOMEN: left-sided colostomy with liquid bloody drainage, dressing in place with a SAMY drain, tender, no mass palpable. Ostomy itself is rather dark colored PSYCH: Sedated and unable to assessl. NEUROLOGICAL: Cranial nerves grossly intact; no facial asymmetry, pupils reactive Investigations reviewed in the clinical context White count 20.3, hemoglobin 7.3, potassium 3.4, BUN 50, creatinine 1.25 Accu-Cheks noted to include 132, 175, 163 Assessment: -Acute perforated sigmoid diverticulitis with secondary peritonitis, slow to respond -Sigmoid colectomy with a resultant colostomy and a SAMY drain in place -Hypotensive and septic shock, status post pressure support -Acute renal failure, ATN from septic shock, with some improvement -Paroxysmal atrial flutter,, heart rate better controlled, now in sinus rhythm -Coronary artery disease with prior history of stent and bypass -Hyperlipidemia -Essential hypertension history of -Primary osteoarthritis -BPH -Hypothyroidism -Chronic gout -PTSD -Coumadin monitoring. Status post vitamin K and fresh frozen plasma. Plan: Remains critically ill. Practically no output from the colostomy bag. Ostomy itself does not look healthy. Wound VAC being placed over the abdominal incision. NG tube remains in place. Continue with IV antibiotics. Prognosis guarded.
[2018-10-06] MEDS: NOREPINEPHRINE 32 MG in SODIUM CHLORIDE 0.9% 218 ML IV SCH (20:13)
[2018-10-07 00:15] LABS: Glucose,Whole Blood 131 mg/dL (75-99)
[2018-10-07] MEDS: INSULIN ASPART (NovoLOG) 100 UNIT/ML VIAL SQ SCH ×5 (00:16→23:59)
[2018-10-07] MEDS: PIPERACILLIN-TAZOBACTAM 3.375 GM in SODIUM CHLORIDE 0.9% 100 ML IVPB SCH ×4 (00:20→23:50)
[2018-10-07] MEDS: metroNIDAZOLE-NS PMX 500 MG in SALINE 1 100ML.BAG IVPB SCH ×5 (00:20→23:54)
[2018-10-07] MEDS: PROPOFOL 1,000 MG in EMPTY BAG 1 BAG IV SCH ×6 (00:23→20:13)
[2018-10-07] MEDS: DEXTROSE 5% IN WATER 1,000 ML IV SCH ×2 (02:53→17:33)
[2018-10-07] MEDS: IPRATROPIUM-ALBUTEROL 3 ML NEB INHALATION SCH ×6 (03:56→23:45)
[2018-10-07 04:51] LABS: ABG Base Excess 1.9 mmol/L; ABG HCO3 25 mmol/L (21-25); ABG Oxygen Saturation 95.4 % (94-97); ABG PCO2 33 mmHg (35-45); ABG PH 7.49 (7.35-7.45); ABG PO2 71 mmHg (83-108); ABG TCO2 26 mmol/L (19-24)
[2018-10-07 05:27] LABS: Anisocytosis Slight; HCT 23.3 % (39.0-53.0); HGB 7.8 gm/dL (13.0-17.5); MCH 31.8 pg (25.0-35.0); MCHC 33.3 g/dL (31.0-37.0); MCV 95.5 fL (80.0-100.0); Mean Platelet Volume 9.5; Platelet Count 165 k/uL (150-450); Poikilocytosis Slight; RBC 2.44 m/uL (4.30-5.90); WBC 19.2 k/uL (3.8-10.6)
[2018-10-07 05:33] LABS: Calcium 7.4 mg/dL (8.4-10.2); Magnesium 2.1 mg/dL (1.6-2.3); Phosphorus 2.3 mg/dL (2.5-4.5); Potassium 3.7 mmol/L (3.5-5.1)
[2018-10-07 05:58] LABS: Glucose,Whole Blood 179 mg/dL (75-99)
--- NOTE | 2018-10-07 06:58 | XR ---
EXAMINATION TYPE: XR chest 1V portable DATE OF EXAM: 10/07/2018 HISTORY: Tube placement. REFERENCE: Previous study dated 10/06/2018. FINDINGS: There has been a midline sternotomy. The patient is ET tube and right basilic PICC line remain in place, unchanged in appearance. The debby ent is NG tube cannot be followed beyond the distal esophagus and should likely be advanced. The heart is enlarged. There are bilateral effusions. There is bibasilar atelectasis. IMPRESSION: 1. CONTINUING BIBASILAR AIRSPACE DISEASE. 2. SMALL, BILATERAL EFFUSIONS. 3. CARDIOMEGALY. 4. I CANNOT CONFIRM NG TUBE PLACEMENT WITHIN THE STOMACH.
[2018-10-07] MEDS ORDERED: POTASSIUM PHOSPHATE 10 MMOL in SODIUM CHLORIDE 0.9% 100 ML IV ONE (07:30)
[2018-10-07] MEDS: CHLORHEXIDINE GLUCONATE 15 ML CUP MUCOUS MEM SCH ×2 (08:38→20:19)
[2018-10-07] MEDS: PANTOPRAZOLE 40 MG/10 ML VIAL IVP SCH ×2 (08:38→20:14)
--- NOTE | 2018-10-07 08:42 | P.PN ---
Subjective Progress Note Date: 10/07/18 Seen and examined for the follow-up of acute kidney injury. Currently on ventilator. Urine output of about 100 ML's an hour. Objective - Vital Signs Vital signs: Vital Signs Temp 98.9 F 10/07/18 04:00 Pulse 76 10/07/18 07:50 Resp 12 10/07/18 07:00 BP 113/63 10/07/18 07:00 Pulse Ox 96 10/07/18 07:00 Intake & Output 10/06/18 10/07/18 10/07/18 18:59 06:59 18:59 Intake Total 3311.611 2404.342 73 Output Total 1775 1825 100 Balance 1536.611 579.342 -27 Weight 135.8 kg 133.1 kg Intake: IV 2022 1840 73 Dextrose 5% in Water 1, 600 720 60 000 ml @ 60 mls/hr IV . [id number] [facility] Rx#:[id number] Mvi, Adult No.4 with Vit 640 K 10 ml Trace (Conc-1Ml/ Dose) 1 ml In Amino Acid 4.25%-D10w+Lytes*E* 1,000 ml @ 50 mls/hr IV . [id number] [facility] Rx#:[id number] Mvi, Adult No.4 with Vit 730 65 K 10 ml Trace (Conc-1Ml/ Dose) 1 ml In Amino Acid 4.25%-D10w+Lytes*E* 1,000 ml @ 65 mls/hr IV . [id number] [facility] Rx#:[id number] Piperacillin-Tazobactam 3 100 .375 gm In Sodium Chloride 0.9% 100 ml @ 25 mls/hr IVPB Q8HR [facility] Rx# :[id number] Potassium Chloride 20 meq 300 In Water For Injection 1 100ml.bag @ 50 mls/hr IVPB Q2H [facility] Rx#: [id number] Sodium Chloride 0.9% 1, 40 180 10 000 ml @ 20 mls/hr IV . Q24H [facility] Rx#:[id number] metroNIDAZOLE-NS PMX 500 200 200 mg In Saline 1 100ml.bag @ 100 mls/hr IVPB Q6HR [facility] Rx#:[id number] pressure bag 53 36 3 Intake, IV Titration 1288.611 563.342 Amount Mvi, Adult No.4 with Vit 1011.000 K 10 ml Trace (Conc-1Ml/ Dose) 1 ml In Amino Acid 4.25%-D10w+Lytes*E* 1,000 ml @ 65 mls/hr IV . [id number] [facility] Rx#:[id number] Piperacillin-Tazobactam 3 100 .375 gm In Sodium Chloride 0.9% 100 ml @ 25 mls/hr IVPB Q8HR [facility] Rx# :[id number] Propofol 1,000 mg In 277.611 463.342 Empty Bag 1 bag @ Titrate IV .Q0M [facility] Rx#: [id number] Output: Urine 1775 1825 100 Other: Voiding Method Indwelling Catheter Indwelling Catheter ABP, PAP, CO, CI - Last Documented Arterial Blood Pressure 113/40 - Exam Ventilator and sedation S1-S2 heard Bilateral decreased breath sounds Edema. - Labs CBC & Chem 7: 10/07/18 04:44 10/07/18 04:44 Labs: Abnormal Lab Results - Last 24 Hours (Table) 10/06/18 10/06/18 10/07/18 Range/Units 11:49 18:09 00:12 WBC (3.8-10.6) k/uL RBC (4.30-5.90) m/uL Hgb (13.0-17.5) gm/dL Hct (39.0-53.0) % RDW (11.5-15.5) % ABG pH (7.35-7.45) ABG pCO2 (35-45) mmHg ABG pO2 (83-108) mmHg ABG Total CO2 (19-24) mmol/L Sodium (137-145) mmol/L Chloride (98-107) mmol/L BUN (9-20) mg/dL Glucose (74-99) mg/dL POC Glucose (mg/dL) 175 H 163 H 131 H (75-99) mg/dL Calcium (8.4-10.2) mg/dL Phosphorus (2.5-4.5) mg/dL 10/07/18 10/07/18 10/07/18 Range/Units 04:44 04:44 04:49 WBC 19.2 H (3.8-10.6) k/uL RBC 2.44 L (4.30-5.90) m/uL Hgb 7.8 L (13.0-17.5) gm/dL Hct 23.3 L (39.0-53.0) % RDW 18.0 H (11.5-15.5) % ABG pH 7.49 H (7.35-7.45) ABG pCO2 33 L (35-45) mmHg ABG pO2 71 L (83-108) mmHg ABG Total CO2 26 H (19-24) mmol/L Sodium 148 H (137-145) mmol/L Chloride 117 H (98-107) mmol/L BUN 38 H (9-20) mg/dL Glucose 164 H (74-99) mg/dL POC Glucose (mg/dL) (75-99) mg/dL Calcium 7.4 L (8.4-10.2) mg/dL Phosphorus 2.3 L (2.5-4.5) mg/dL 10/07/18 Range/Units 05:47 WBC (3.8-10.6) k/uL RBC (4.30-5.90) m/uL Hgb (13.0-17.5) gm/dL Hct (39.0-53.0) % RDW (11.5-15.5) % ABG pH (7.35-7.45) ABG pCO2 (35-45) mmHg ABG pO2 (83-108) mmHg ABG Total CO2 (19-24) mmol/L Sodium (137-145) mmol/L Chloride (98-107) mmol/L BUN (9-20) mg/dL Glucose (74-99) mg/dL POC Glucose (mg/dL) 179 H (75-99) mg/dL Calcium (8.4-10.2) mg/dL Phosphorus (2.5-4.5) mg/dL Microbiology - Last 24 Hours (Table) 10/02/18 00:14 Blood Culture - Preliminary Blood No Growth after 120 hours 10/02/18 00:14 Blood Culture - Preliminary Blood No Growth after 120 hours Assessment and Plan Assessment: #1 acute kidney injury secondary to ischemic ATN from septic shock. Creatinine currently at baseline. #2 chronic kidney disease stage III secondary to nephrosclerosis baseline 1.1- 1.3 MG per DL. #3 septic shock from perforated diverticulitis resolved currently off pressors #4 A. fib with RVR #5 hypervolemic hypernatremia secondary to volume depletion #6 edema secondary to third spacing #7 metabolic and respiratory alkalosis Plan: #1 continue with D5 water at 60 ML's an hour. #2 add Diuril for diuresis. It will not affect serum sodium as Lasix. #3 avoid nephrotoxic agents and hypotensive episodes.
[2018-10-07] MEDS: HYDROmorphone 1 MG/ML 1 ML SYRINGE IVP PRN ×3 (08:51→18:54)
[2018-10-07] MEDS ORDERED: HYDROCHLOROTHIAZIDE 25 MG TAB PO SCH (09:00)
[2018-10-07] MEDS: MVI, ADULT NO.4 WITH VIT K 10 ML, TRACE (CONC-1ML/DOSE) 1 ML, POTASSIUM PHOSPHATE 15 MM... IV SCH ×8 (09:27)
[2018-10-07] MEDS ORDERED: FUROSEMIDE 10 MG/ML 2 ML VIAL IV ONE (10:20)
--- NOTE | 2018-10-07 10:35 | PN ---
PROGRESS NOTE Mr. Martinez is status post colon resection and colostomy. He has paroxysmal atrial fibrillation and bypass surgery, however, is maintaining sinus rhythm. He is still deeply sedated. Yesterday on a sedation holiday, he seemed to have responded well. Hemodynamically stable, maintaining sinus rhythm but bowel sounds are scanty. S1, S2 heard normally. Short systolic murmur noted. Lungs revealed diminished air entry. Abdomen is distended. Bowel sounds are not easily audible. Rest of physical exam unchanged. From a cardiac standpoint, I would continue current medical regimen. He apparently patient cannot be anticoagulated per surgeon and we will therefore continue his current medical regimen. I had suggested that we discontinue Cardizem yesterday and he is on an insulin drip and also antibiotics maintaining sinus rhythm. The electrolytes are fairly stable with a potassium of 3.7. Renal function is normal. Prognosis remains guarded. We will continue supportive care at this time. MMODL / IJN: [id number] /
--- NOTE | 2018-10-07 11:30 | P.PN ---
Subjective Progress Note Date: 10/07/18 CHIEF COMPLAINT: Perforated diverticulitis HISTORY OF PRESENT ILLNESS: The patient is a 82-year-old male status post colon resection descending colostomy creation for perforated diverticulitis. He is in the ICU. He is on full ventilatory support. Yesterday wound vac was placed. ROS: No productive sputum. No recent strokes. Mentation depressed. PHYSICAL EXAM: VITAL SIGNS: Reviewed CONSTITUTIONAL: Well developed and in no acute distress. EYES: Conjuctivae without sclera icterus. Extraocular movements grossly intact. HEAD, EARS, NOSE, THROAT: Moist buccal mucosa. Head is atraumatic, normocephalic. No nasal drainage. NECK: Supple. No thyroidomegaly. RESPIRATORY: Non-labored respirations and equal bilateral excursions. CARDIOVASCULAR: Palpable 2+ radial pulses. Regular rate. Regular rhythm. ABDOMEN: Midline incision intact. Wound vac along lower incision present. Ostomy dark with flatus in coloplast. MUSCULOSKELETAL: No gross deformity of the lower extremities noted. Ext remities are warm and well perfused with 2+ edema upper and lower extremities. SKIN: Good skin turgor. Well perfused. : Urine clear in [place] and yellow. NEUROLOGIC: No focal or lateralizing signs. PSYCH: Mentation of prostate. CLINCAL LABS: White blood cell count elevated over 20,000. ASSESSMENT: 1. Perforated diverticulitis PLAN: 1. Continue IV antibiotics 2. Continue critical care support. 3. Evidence of volume overload on exam, diuretics advised. Objective - Vital Signs Vital signs: Vital Signs Temp 98.6 F 10/07/18 08:30 Pulse 89 10/07/18 11:00 Resp 22 10/07/18 11:00 BP 96/53 10/07/18 10:00 Pulse Ox 95 10/07/18 11:00 Intake & Output 10/06/18 10/07/18 10/07/18 18:59 06:59 18:59 Intake Total 3311.611 2404.342 657.792 Output Total 1775 1825 500 Balance 1536.611 579.342 157.792 Weight 135.8 kg 133.1 kg Intake: IV 2022 184 553 Dextrose 5% in Water 1, 600 720 300 000 ml @ 60 mls/hr IV . [id number] [facility] Rx#:[id number] Mvi, Adult No.4 with Vit 640 K 10 ml Trace (Conc-1Ml/ Dose) 1 ml In Amino Acid 4.25%-D10w+Lytes*E* 1,000 ml @ 50 mls/hr IV . [id number] [facility] Rx#:[id number] Mvi, Adult No.4 with Vit 730 65 K 10 ml Trace (Conc-1Ml/ Dose) 1 ml In Amino Acid 4.25%-D10w+Lytes*E* 1,000 ml @ 65 mls/hr IV . [id number] [facility] Rx#:[id number] Piperacillin-Tazobactam 3 100 200 .375 gm In Sodium Chloride 0.9% 100 ml @ 25 mls/hr IVPB Q8HR [facility] Rx# :[id number] Potassium Chloride 20 meq 300 In Water For Injection 1 100ml.bag @ 50 mls/hr IVPB Q2H [facility] Rx#: [id number] Sodium Chloride 0.9% 1, 40 180 50 000 ml @ 20 mls/hr IV . Q24H [facility] Rx#:[id number] metroNIDAZOLE-NS PMX 500 200 200 mg In Saline 1 100ml.bag @ 100 mls/hr IVPB Q6HR [facility] Rx#:[id number] pressure bag 53 36 3 Intake, IV Titration 1288.611 563.342 104.792 Amount Mvi, Adult No.4 with Vit 1011.000 K 10 ml Trace (Conc-1Ml/ Dose) 1 ml In Amino Acid 4.25%-D10w+Lytes*E* 1,000 ml @ 65 mls/hr IV . [id number] [facility] Rx#:[id number] Piperacillin-Tazobactam 3 100 .375 gm In Sodium Chloride 0.9% 100 ml @ 25 mls/hr IVPB Q8HR [facility] Rx# :[id number] Propofol 1,000 mg In 277.611 463.342 104.792 Empty Bag 1 bag @ Titrate IV .Q0M [facility] Rx#: [id number] Output: Urine 1775 1825 500 Other: Voiding Method Indwelling Catheter Indwelling Catheter Indwelling Catheter # Voids 0 ABP, PAP, CO, CI - Last Documented Arterial Blood Pressure 147/57 - Labs CBC & Chem 7: 10/07/18 04:44 10/07/18 04:44 Labs: Abnormal Lab Results - Last 24 Hours (Table) 10/06/18 10/06/18 10/07/18 Range/Units 11:49 18:09 00:12 WBC (3.8-10.6) k/uL RBC (4.30-5.90) m/uL Hgb (13.0-17.5) gm/dL Hct (39.0-53.0) % RDW (11.5-15.5) % ABG pH (7.35-7.45) ABG pCO2 (35-45) mmHg ABG pO2 (83-108) mmHg ABG Total CO2 (19-24) mmol/L Sodium (137-145) mmol/L Chloride (98-107) mmol/L BUN (9-20) mg/dL Glucose (74-99) mg/dL POC Glucose (mg/dL) 175 H 163 H 131 H (75-99) mg/dL Calcium (8.4-10.2) mg/dL Phosphorus (2.5-4.5) mg/dL 10/07/18 10/07/18 10/07/18 Range/Units 04:44 04:44 04:49 WBC 19.2 H (3.8-10.6) k/uL RBC 2.44 L (4.30-5.90) m/uL Hgb 7.8 L (13.0-17.5) gm/dL Hct 23.3 L (39.0-53.0) % RDW 18.0 H (11.5-15.5) % ABG pH 7.49 H (7.35-7.45) ABG pCO2 33 L (35-45) mmHg ABG pO2 71 L (83-108) mmHg ABG Total CO2 26 H (19-24) mmol/L Sodium 148 H (137-145) mmol/L Chloride 117 H (98-107) mmol/L BUN 38 H (9-20) mg/dL Glucose 164 H (74-99) mg/dL POC Glucose (mg/dL) (75-99) mg/dL Calcium 7.4 L (8.4-10.2) mg/dL Phosphorus 2.3 L (2.5-4.5) mg/dL 10/07/18 Range/Units 05:47 WBC (3.8-10.6) k/uL RBC (4.30-5.90) m/uL Hgb (13.0-17.5) gm/dL Hct (39.0-53.0) % RDW (11.5-15.5) % ABG pH (7.35-7.45) ABG pCO2 (35-45) mmHg ABG pO2 (83-108) mmHg ABG Total CO2 (19-24) mmol/L Sodium (137-145) mmol/L Chloride (98-107) mmol/L BUN (9-20) mg/dL Glucose (74-99) mg/dL POC Glucose (mg/dL) 179 H (75-99) mg/dL Calcium (8.4-10.2) mg/dL Phosphorus (2.5-4.5) mg/dL Microbiology - Last 24 Hours (Table) 10/02/18 00:14 Blood Culture - Preliminary Blood No Growth after 120 hours 10/02/18 00:14 Blood Culture - Preliminary Blood No Growth after 120 hours
[2018-10-07 12:03] LABS: Glucose,Whole Blood 175 mg/dL (75-99)
--- NOTE | 2018-10-07 12:44 | PN ---
PROGRESS NOTE DATE OF SERVICE: October 07, 2018 Critical care time 34 minutes. HISTORY: This is an 82-year-old male with a history of being admitted back on September 30. The patient presented to the emergency department with episode of abdominal discomfort and was found to have a small bowel obstruction. He went to the operating room. There, on the , he underwent a sigmoid colectomy and colostomy for perforated diverticular abscess. Again, this was on October 01. The surgery was done by Dr. Rony Woodward. The patient remains on the volume assist-control mode rate of 20, tidal volume 500, FiO2 50%, PEEP of 5. Blood gases show PO2 of 71, pCO2 of 33, pH 7.49. The patient remains on Flagyl and Zosyn as antibiotics. His wound cultures show evidence of Escherichia coli and Pseudomonas aeruginosa. Wound VAC is in place. He is getting TPN at 65 mL an hour, propofol at 30 mcg/kg per per minute and D5W at 60 mL an hour. He is going to get some Lasix 20 mg IV push x1 today. Yesterday, he spent about 25-30 minutes on PSV CPAP. He did not do real well. Currently, the patient is doing about the same today as he was yesterday. In the end, he may end up with a tracheostomy to be transferred to a specialized nursing facility. PHYSICAL EXAMINATION: VITAL SIGNS: Current vital signs are reviewed. Temperature is 98.6 heart rate is 89, respiratory rate 22, blood pressure 96/53 mean 67 and saturations in between 94 96% on 50% and 5 of PEEP. HEENT examination is grossly unremarkable. Mucous membranes are moist. No oral lesions. There is an orally placed endotracheal tube and NG tube. NECK: Supple. Full range of motion. No adenopathy, thyromegaly or neck vein distention. CARDIOVASCULAR examination reveals a regular rhythm and rate. Heart rate about 80 beats per minute. S1, S2 normal. Heart sounds are distant. No murmur. LUNGS: A few scattered rhonchi. No wheezes. No crackles. Breath sounds equal. ABDOMEN: Soft. Bowel sounds are not noted. EXTREMITIES are intact. Mild edema noted. SKIN without rash. NEUROLOGIC examination could not be adequately assessed. Microbiologic data is reviewed. Again, the E coli and Pseudomonas aeruginosa from the wound Gram stain on October 01. Chest x-ray shows bibasilar airspace disease and small effusions with cardiomegaly. Labs are reviewed. White count 19.2, hemoglobin 7.8, hematocrit 23.3, platelet count normal. Sodium 148, potassium 3.7, chloride 117, CO2 is 25, anion gap 6, BUN and creatinine were 38 and 1.09. The rest of the labs are reviewed. Medications are reviewed. The patient remains on Flagyl and Zosyn. ASSESSMENT: 1. Postoperative day number 6, status post sigmoid colectomy and colostomy for perforated diverticular abscess. 2. Abdominal sepsis, secondary to Escherichia coli, Pseudomonas aeruginosa, status post wound VAC placement. 3. Routine postoperative ventilator management with failure to wean thus far. 4. Paroxysmal atrial fibrillation. 5. Hypotension, secondary to sepsis, resolved. 6. Benign essential hypertension. 7. Hyperlipidemia. 8. Degenerative joint disease. 9. Hypothyroidism. PLAN: Overall, the patient is holding his own. He has made some progress. A couple days ago, he was on nearly 35 mics of norepinephrine. That has been weaned off. He continues on propofol for sedation. Wound VAC was placed. He will get Lasix 20 mg IV push. I suspect early next week if there is no improvement over the weekend, the patient will require tracheostomy tube placement. He may end up at a [facility] or specialized nursing facility or long-term acute care facility. Additional recommendations and suggestions forthcoming. Prognosis is guarded. Critical care time 34 minutes. MMAMANL / TOM: [id number] /
[2018-10-07 17:37] LABS: Glucose,Whole Blood 137 mg/dL (75-99)
[2018-10-07] MEDS: NOREPINEPHRINE 32 MG in SODIUM CHLORIDE 0.9% 218 ML IV SCH (20:19)
[2018-10-07 23:46] LABS: Glucose,Whole Blood 155 mg/dL (75-99)
[2018-10-08] MEDS: PROPOFOL 1,000 MG in EMPTY BAG 1 BAG IV SCH ×4 (01:17→18:38)
[2018-10-08] MEDS: HYDROmorphone 1 MG/ML 1 ML SYRINGE IVP PRN ×4 (01:20→21:53)
[2018-10-08] MEDS: MVI, ADULT NO.4 WITH VIT K 10 ML, TRACE (CONC-1ML/DOSE) 1 ML, POTASSIUM PHOSPHATE 15 MM... IV SCH ×16 (02:07→18:38)
[2018-10-08] MEDS: IPRATROPIUM-ALBUTEROL 3 ML NEB INHALATION SCH ×6 (03:44→23:41)
[2018-10-08 05:07] LABS: ABG Base Excess 1.5 mmol/L; ABG HCO3 25 mmol/L (21-25); ABG Oxygen Saturation 97.9 % (94-97); ABG PCO2 35 mmHg (35-45); ABG PH 7.47 (7.35-7.45); ABG PO2 93 mmHg (83-108); ABG TCO2 26 mmol/L (19-24); Allen Test Performed? Yes
[2018-10-08 05:34] LABS: Anisocytosis Slight; HGB 8.1 gm/dL (13.0-17.5); MCH 31.6 pg (25.0-35.0); MCHC 32.3 g/dL (31.0-37.0); MCV 97.7 fL (80.0-100.0); Macrocytosis Slight; Mean Platelet Volume 9.1; Platelet Count 201 k/uL (150-450); Poikilocytosis Slight; RBC 2.56 m/uL (4.30-5.90); RDW 16.9 % (11.5-15.5); WBC 17.5 k/uL (3.8-10.6)
[2018-10-08 05:41] LABS: Calcium 7.3 mg/dL (8.4-10.2); Magnesium 2.1 mg/dL (1.6-2.3); Phosphorus 3.4 mg/dL (2.5-4.5); Potassium 3.5 mmol/L (3.5-5.1)
[2018-10-08] MEDS: metroNIDAZOLE-NS PMX 500 MG in SALINE 1 100ML.BAG IVPB SCH ×3 (05:57→17:43)
--- NOTE | 2018-10-08 06:08 | XR ---
EXAMINATION TYPE: XR chest 1V portable DATE OF EXAM: 10/08/2018 HISTORY: Mech vent. REFERENCE: Previous study dated 10/07/2018. FINDINGS: There has been a midline sternotomy. There is an ET tube and NG tube in place. These are in good position. A right basilic PICC line is in place. Its tip is in the superior vena cava. The heart enlarged. There is continuing bibasilar airspace disease. There are small, bilateral effusi ons. IMPRESSION: NO SIGNIFICANT INTERVAL CHANGE IN APPEARANCE OF THE CHEST.
[2018-10-08] MEDS: POTASSIUM CHLORIDE 10 MEQ in WATER FOR INJECTION 1 100ML.BAG IVPB SCH ×2 (06:23→08:06)
[2018-10-08 06:44] LABS: Glucose,Whole Blood 184 mg/dL (75-99)
[2018-10-08] MEDS: INSULIN ASPART (NovoLOG) 100 UNIT/ML VIAL SQ SCH ×3 (06:44→17:43)
[2018-10-08] MEDS: PIPERACILLIN-TAZOBACTAM 3.375 GM in SODIUM CHLORIDE 0.9% 100 ML IVPB SCH ×2 (08:06→15:58)
[2018-10-08] MEDS: CHLORHEXIDINE GLUCONATE 15 ML CUP MUCOUS MEM SCH ×2 (08:06→21:52)
[2018-10-08] MEDS: PANTOPRAZOLE 40 MG/10 ML VIAL IVP SCH ×2 (08:06→21:52)
--- NOTE | 2018-10-08 08:37 | P.PN ---
Subjective Progress Note Date: 10/08/18 CHIEF COMPLAINT: Perforated diverticulitis HISTORY OF PRESENT ILLNESS: The patient is a 82-year-old male status post colon resection descending colostomy creation for perforated diverticulitis. He is in the ICU. He is on full ventilatory support. He has cuff leak. He is not on anticoagulation yet. WBC persistently elevated without infectious disease team following. ROS: No productive sputum. No recent strokes. Mentation depressed. PHYSICAL EXAM: VITAL SIGNS: Reviewed CONSTITUTIONAL: Well developed and in no acute distress. EYES: Conjuctivae without sclera icterus. Extraocular movements grossly intact. HEAD, EARS, NOSE, THROAT: Moist buccal mucosa. Head is atraumatic, normocephalic. No nasal drainage. NECK: Supple. No thyroidomegaly. RESPIRATORY: Non-labored respirations and equal bilateral excursions. CARDIOVASCULAR: Palpable 2+ radial pulses. Regular rate. Regular rhythm. ABDOMEN: Midline incision intact. Wound vac along lower incision present. Ostomy dark with flatus in coloplast. No output from ostomy. NGT appears too far pulled out. MUSCULOSKELETAL: No gross deformity of the lower extremities noted. Moderate generalized edema 3+ of upper and lower extremities. SKIN: Good skin turgor. Well perfused. : Urine clear in [place] and yellow. NEUROLOGIC: No focal or lateralizing signs. PSYCH: Mentation of prostate. CLINCAL LABS: White blood cell count elevated over 17,000 from 20,000 ASSESSMENT: 1. Perforated diverticulitis PLAN: 1. Consult to infectious disease made for history of abdominal peritonitis and sepsis 2. Hold anticoagulation until tomorrow for re-evaluation. 3. Agree with more Lasix which should help with generalized edema and edema at the ostomy 4. Continue Flagyl for now. 5. Get repeat abdominal Xray 6. Re-evaluate for medication via NGT tomorrow. Objective - Vital Signs Vital signs: Vital Signs Temp 99.8 F H 10/08/18 04:00 Pulse 102 H 10/08/18 08:00 Resp 29 H 10/08/18 08:00 BP 103/51 10/08/18 08:00 Pulse Ox 97 10/08/18 08:00 Intake & Output 10/07/18 10/08/18 10/08/18 18:59 06:59 18:59 Intake Total 2228.406 5808 553 Output Total 2850 1500 200 Balance -4600.400 5520 353 Weight 134 kg Intake: IV 1373 1678 553 Dextrose 5% in Water 1, 780 630 120 000 ml @ 60 mls/hr IV . [id number] [facility] Rx#:[id number] Mvi, Adult No.4 with Vit 715 130 K 10 ml Trace (Conc-1Ml/ Dose) 1 ml Potassium Phosphate 15 mmol Sodium Acetate 20 meq Potassium Chloride 10 meq Magnesium Sulfate gm 1 gm Calcium Gluconate 1 gm In Amino Acid 4.25%-D10w 1,000 ml @ 65 mls/hr IV .Q16H3M [facility] Rx#:[id number] Piperacillin-Tazobactam 3 300 100 100 .375 gm In Sodium Chloride 0.9% 100 ml @ 25 mls/hr IVPB Q8HR [facility] Rx# :[id number] Potassium Chloride 10 meq 200 In Water For Injection 1 100ml.bag @ 100 mls/hr IVPB Q1H [facility] Rx#: [id number] Sodium Chloride 0.9% 1, 90 000 ml @ 20 mls/hr IV . Q24H [facility] Rx#:[id number] metroNIDAZOLE-NS PMX 500 200 200 mg In Saline 1 100ml.bag @ 100 mls/hr IVPB Q6HR [facility] Rx#:[id number] pressure bag 3 33 3 Intake, IV Titration 461.312 0386 Amount Mvi, Adult No.4 with Vit 1043 K 10 ml Trace (Conc-1Ml/ Dose) 1 ml Potassium Phosphate 15 mmol Sodium Acetate 20 meq Potassium Chloride 10 meq Magnesium Sulfate gm 1 gm Calcium Gluconate 1 gm In Amino Acid 4.25%-D10w 1,000 ml @ 65 mls/hr IV .Q16H3M [facility] Rx#:[id number] Propofol 1,000 mg In 265.086 200 Empty Bag 1 bag @ Titrate IV .Q0M [facility] Rx#: [id number] Oral 0 Output: Drainage 25 Right Abdomen 25 Urine 2850 1475 200 Other: Voiding Method Indwelling Catheter Indwelling Catheter # Voids 0 ABP, PAP, CO, CI - Last Documented Arterial Blood Pressure 142/61 - Labs CBC & Chem 7: 10/08/18 04:30 10/08/18 04:30 Labs: Abnormal Lab Results - Last 24 Hours (Table) 10/07/18 10/07/18 10/07/18 Range/Units 11:51 17:25 23:45 WBC (3.8-10.6) k/uL RBC (4.30-5.90) m/uL Hgb (13.0-17.5) gm/dL Hct (39.0-53.0) % RDW (11.5-15.5) % ABG pH (7.35-7.45) ABG Total CO2 (19-24) mmol/L ABG O2 Saturation (94-97) % Chloride (98-107) mmol/L BUN (9-20) mg/dL Glucose (74-99) mg/dL POC Glucose (mg/dL) 175 H 137 H 155 H (75-99) mg/dL Calcium (8.4-10.2) mg/dL 10/08/18 10/08/18 10/08/18 Range/Units 04:30 04:30 05:05 WBC 17.5 H (3.8-10.6) k/uL RBC 2.56 L (4.30-5.90) m/uL Hgb 8.1 L (13.0-17.5) gm/dL Hct 25.0 L (39.0-53.0) % RDW 16.9 H (11.5-15.5) % ABG pH 7.47 H (7.35-7.45) ABG Total CO2 26 H (19-24) mmol/L ABG O2 Saturation 97.9 H (94-97) % Chloride 111 H (98-107) mmol/L BUN 37 H (9-20) mg/dL Glucose 150 H (74-99) mg/dL POC Glucose (mg/dL) (75-99) mg/dL Calcium 7.3 L (8.4-10.2) mg/dL 10/08/18 Range/Units 06:40 WBC (3.8-10.6) k/uL RBC (4.30-5.90) m/uL Hgb (13.0-17.5) gm/dL Hct (39.0-53.0) % RDW (11.5-15.5) % ABG pH (7.35-7.45) ABG Total CO2 (19-24) mmol/L ABG O2 Saturation (94-97) % Chloride (98-107) mmol/L BUN (9-20) mg/dL Glucose (74-99) mg/dL POC Glucose (mg/dL) 184 H (75-99) mg/dL Calcium (8.4-10.2) mg/dL Microbiology - Last 24 Hours (Table) 10/02/18 00:14 Blood Culture - Final Blood No Growth after 144 hours 10/02/18 00:14 Blood Culture - Final Blood No Growth after 144 hours Assessment and Plan (1) Respiratory failure Current Visit: Yes Status: Acute Code(s): J96.90 - RESPIRATORY FAILURE, UNSP, UNSP W HYPOXIA OR HYPERCAPNIA SNOMED Code(s): 730758158 (2) Perforation of sigmoid colon due to diverticulitis Current Visit: Yes Status: Acute Code(s): K57.20 - DVTRCLI OF LG INT W PERFORATION AND ABSCESS W/O BLEEDING SNOMED Code(s): 8743024449650531 (3) Acute exacerbation of chronic obstructive airways disease Current Visit: No Status: Acute Code(s): J44.1 - CHRONIC OBSTRUCTIVE PULMONARY DISEASE W (ACUTE) EXACERBATION SNOMED Code(s): 441403255 (4) Diabetes Current Visit: No Status: Acute Code(s): E11.9 - TYPE 2 DIABETES MELLITUS WITHOUT COMPLICATIONS SNOMED Code(s): 00345847 (5) HTN (hypertension) Current Visit: No Status: Acute Code(s): I10 - ESSENTIAL (PRIMARY) HYPERTENSION SNOMED Code(s): 69603900 (6) Sepsis Current Visit: No Status: Acute Code(s): A41.9 - SEPSIS, UNSPECIFIED ORGANISM SNOMED Code(s): 67451779
[2018-10-08] MEDS ORDERED: FUROSEMIDE 10 MG/ML 4 ML VIAL IV STA (08:46)
--- NOTE | 2018-10-08 09:02 | XR ---
EXAMINATION TYPE: XR abdomen 1V , 2 VIEWS DATE OF EXAM ORDERED: 10/08/2018 HISTORY: NGT placement. COMPARISON: None. FINDINGS: The study is fairly markedly overexposed. The entire abdomen is not included on this study . There are sternotomy wires in place. There is a tubelike structure projecting over the stomach but th is is not followed more proximally. This may represent the patient's NG tube. There are adjacent surg ical clips. IMPRESSION: PROBABLE NG TUBE WITHIN THE STOMACH.
--- NOTE | 2018-10-08 09:04 | XR ---
EXAMINATION TYPE: XR chest 1V portable DATE OF EXAM: 10/08/2018 HISTORY: ET tube placement . REFERENCE: Previous study dated 10/08/2018. FINDINGS: There has been a midline sternotomy. The patient is intubated. ET tube is in good position. An NG tube is placed but is not visualized over the lower esophagus. There is a curvilinear structur e overlying the stomach. This may be the tip of the tube. There continues be bibasilar airspace disease. The heart is mildly enlarged. There are small, bilater al effusions. IMPRESSION: I'M UNCERTAIN TO THE PLACEMENT OF THE PATIENT'S NG TUBE.
--- NOTE | 2018-10-08 09:22 | P.PN ---
Subjective Progress Note Date: 10/08/18 Seen and examined for the follow-up of acute kidney injury. Currently on ventilator. Objective - Vital Signs Vital signs: Vital Signs Temp 99.8 F H 10/08/18 04:00 Pulse 102 H 10/08/18 08:00 Resp 29 H 10/08/18 08:00 BP 103/51 10/08/18 08:00 Pulse Ox 97 10/08/18 08:00 Intake & Output 10/07/18 10/08/18 10/08/18 18:59 06:59 18:59 Intake Total 6091.067 1735 553 Output Total 2850 1500 200 Balance -9387.109 6119 353 Weight 134 kg Intake: IV 1373 1678 553 Dextrose 5% in Water 1, 780 630 120 000 ml @ 60 mls/hr IV . [id number] [facility] Rx#:[id number] Mvi, Adult No.4 with Vit 715 130 K 10 ml Trace (Conc-1Ml/ Dose) 1 ml Potassium Phosphate 15 mmol Sodium Acetate 20 meq Potassium Chloride 10 meq Magnesium Sulfate gm 1 gm Calcium Gluconate 1 gm In Amino Acid 4.25%-D10w 1,000 ml @ 65 mls/hr IV .Q16H3M [facility] Rx#:[id number] Piperacillin-Tazobactam 3 300 100 100 .375 gm In Sodium Chloride 0.9% 100 ml @ 25 mls/hr IVPB Q8HR [facility] Rx# :[id number] Potassium Chloride 10 meq 200 In Water For Injection 1 100ml.bag @ 100 mls/hr IVPB Q1H [facility] Rx#: [id number] Sodium Chloride 0.9% 1, 90 000 ml @ 20 mls/hr IV . Q24H [facility] Rx#:[id number] metroNIDAZOLE-NS PMX 500 200 200 mg In Saline 1 100ml.bag @ 100 mls/hr IVPB Q6HR [facility] Rx#:[id number] pressure bag 3 33 3 Intake, IV Titration 076.520 9872 Amount Mvi, Adult No.4 with Vit 1043 K 10 ml Trace (Conc-1Ml/ Dose) 1 ml Potassium Phosphate 15 mmol Sodium Acetate 20 meq Potassium Chloride 10 meq Magnesium Sulfate gm 1 gm Calcium Gluconate 1 gm In Amino Acid 4.25%-D10w 1,000 ml @ 65 mls/hr IV .Q16H3M [facility] Rx#:[id number] Propofol 1,000 mg In 265.086 200 Empty Bag 1 bag @ Titrate IV .Q0M [facility] Rx#: [id number] Oral 0 Output: Drainage 25 Right Abdomen 25 Urine 2850 1475 200 Other: Voiding Method Indwelling Catheter Indwelling Catheter # Voids 0 ABP, PAP, CO, CI - Last Documented Arterial Blood Pressure 142/61 - Exam Ventilator and sedation S1-S2 heard Bilateral decreased breath sounds Edema. - Labs CBC & Chem 7: 10/08/18 04:30 10/08/18 04:30 Labs: Abnormal Lab Results - Last 24 Hours (Table) 10/07/18 10/07/18 10/07/18 Range/Units 11:51 17:25 23:45 WBC (3.8-10.6) k/uL RBC (4.30-5.90) m/uL Hgb (13.0-17.5) gm/dL Hct (39.0-53.0) % RDW (11.5-15.5) % ABG pH (7.35-7.45) ABG Total CO2 (19-24) mmol/L ABG O2 Saturation (94-97) % Chloride (98-107) mmol/L BUN (9-20) mg/dL Glucose (74-99) mg/dL POC Glucose (mg/dL) 175 H 137 H 155 H (75-99) mg/dL Calcium (8.4-10.2) mg/dL 10/08/18 10/08/18 10/08/18 Range/Units 04:30 04:30 05:05 WBC 17.5 H (3.8-10.6) k/uL RBC 2.56 L (4.30-5.90) m/uL Hgb 8.1 L (13.0-17.5) gm/dL Hct 25.0 L (39.0-53.0) % RDW 16.9 H (11.5-15.5) % ABG pH 7.47 H (7.35-7.45) ABG Total CO2 26 H (19-24) mmol/L ABG O2 Saturation 97.9 H (94-97) % Chloride 111 H (98-107) mmol/L BUN 37 H (9-20) mg/dL Glucose 150 H (74-99) mg/dL POC Glucose (mg/dL) (75-99) mg/dL Calcium 7.3 L (8.4-10.2) mg/dL 10/08/18 Range/Units 06:40 WBC (3.8-10.6) k/uL RBC (4.30-5.90) m/uL Hgb (13.0-17.5) gm/dL Hct (39.0-53.0) % RDW (11.5-15.5) % ABG pH (7.35-7.45) ABG Total CO2 (19-24) mmol/L ABG O2 Saturation (94-97) % Chloride (98-107) mmol/L BUN (9-20) mg/dL Glucose (74-99) mg/dL POC Glucose (mg/dL) 184 H (75-99) mg/dL Calcium (8.4-10.2) mg/dL Microbiology - Last 24 Hours (Table) 10/02/18 00:14 Blood Culture - Final Blood No Growth after 144 hours 10/02/18 00:14 Blood Culture - Final Blood No Growth after 144 hours Assessment and Plan Assessment: #1 acute kidney injury secondary to ischemic ATN from septic shock. Creatinine currently at baseline. #2 chronic kidney disease stage III secondary to nephrosclerosis baseline 1.1- 1.3 MG per DL. #3 septic shock from perforated diverticulitis resolved currently off pressors #4 A. fib with RVR #5 hypervolemic hypernatremia secondary to intravascular volume depletion #6 edema secondary to third spacing #7 metabolic and respiratory alkalosis Plan: #1 continue with D5 water at 60 ML's an hour. #2 as he cannot take oral Diuril, discontinue and use Lasix as needed for volume. #3 avoid nephrotoxic agents and hypotensive episodes.
--- NOTE | 2018-10-08 09:30 | PN ---
PROGRESS NOTE Mr. Martinez is in sinus rhythm today. He is doing better. He has an NG tube. I will resume beta blockers at 25 mg Lopressor b.i.d. and also amlodipine for blood pressure control. Anticoagulation is still being held as per surgery. His colostomy seems to be not functioning very well. Plan is to continue current medical regimen. This patient has paroxysmal atrial fibrillation, but maintaining sinus rhythm. We will resume beta blockers. S1-S2 heard normally. Lungs reveal diminished air entry. Abdomen and lower extremity exam unchanged. Overall prognosis appears guarded. Colostomy does not appear to be functioning at this time. The question of infection is also being considered. MMODL / IJN: [id number] /
--- NOTE | 2018-10-08 10:35 | PN ---
PROGRESS NOTE DATE OF SERVICE: October 08, 2018. Critical care time 35 minutes. This is an 82-year-old male with a history of being admitted back on September 30 when he presented to the emergency department with episodes of abdominal discomfort and was found to have a small-bowel obstruction. He went to the operating room. This occurred on October 01. He underwent a sigmoid colectomy and colostomy for perforated diverticular abscess. The surgery was done by Dr. Woodward. Since that time, the patient has been on the mechanical ventilator. He is currently on the volume assist-control mode rate of 500, FiO2 50% to be dropped to 40% and PEEP of 5. Blood gases show a pO2 of 121, pCO2 36, and pH 7.46. We are going to give him some Lasix today 40 mg IV push. He remains on Zosyn and Flagyl antibiotics. His wound cultures did grow out E coli and Pseudomonas, both of which are sensitive to Zosyn. He is getting TPN at 65 mL an hour, Diprivan at 20 mcg/kg per per minute and D5W at 60 mL an hour. A wound VAC was placed by ID. Other than that, the patient seems to be doing relatively well. We did have some issues with endotracheal tube today. We had to push it down a bit. Also, we just wanted to confirm that the NG tube was in the stomach and it appeared to be. PHYSICAL EXAMINATION: Current vital signs are reviewed. Temperature is 99.8, heart rate 95, respiratory rate 20, blood pressure 119/53 and saturations are 94% or so. Appears in no acute distress. HEENT examination is grossly unremarkable. There is an orally placed endotracheal tube and NG tube. NECK: Supple. Full range of motion. No adenopathy or thyromegaly. Neck veins are flat. CARDIOVASCULAR examination reveals regular rhythm rate. Heart rate in mid 90s. S1, S2 normal. No murmur. LUNGS: Coarse rhonchi. Breath sounds are diminished. Breath sounds are equal bilaterally. ABDOMEN: Soft. No bowel sounds are heard. EXTREMITIES are intact. Mild edema. Skin without rash. NEUROLOGIC examination could not be adequately assessed as the patient is currently on propofol. Microbiologic data show only the E coli and Pseudomonas from October 01 from the wound culture. His chest x-ray done today shows endotracheal tube which is too high up in the trachea. Hence, it was pushed down a couple centimeters. LAB DATA: Reviewed. Shows white count 17.5, hemoglobin 8.1, hematocrit 25.0, platelet count 201,000. Blood gases have been noted. Sodium 141, potassium 3.5, chloride 111, CO2 of 25, BUN and creatinine were 37 and 1.04. Anion gap is 5. Current medications are reviewed. ASSESSMENT: 1. Postoperative day #7 status post sigmoid colectomy and colostomy for perforated diverticular abscess. 2. Routine postoperative ventilator management, with failure to wean from mechanical ventilation thus far. 3. Abdominal sepsis secondary to Escherichia coli and Pseudomonas aeruginosa, status post wound VAC placement. 4. Paroxysmal atrial fibrillation. 5. Hypotension, secondary to sepsis, resolved. 6. Benign essential hypertension. 7. Hyperlipidemia. 8. Degenerative joint disease. 9. Hypothyroidism. PLAN: Currently, the FiO2 can be dropped from 50% to 40%. We will do a daily interruption of sedation. The patient's chest x-ray shows improvement although he does have bilateral effusions and hence will get Lasix 40 mg IV push. We will continue on tube feeds. No additional recommendations are made. The patient may benefit from tracheostomy and PEG tube placement. Additional recommendations and suggestions are forthcoming. Critical care time 35 minutes. MMODL / IJN: [id number] /
[2018-10-08 12:00] LABS: Glucose,Whole Blood 163 mg/dL (75-99)
[2018-10-08] MEDS: DEXTROSE 5% IN WATER 1,000 ML IV SCH (12:00)
--- NOTE | 2018-10-08 17:00 | P.PN ---
Progress Note - Text Progress Note Date: 10/07/18 Presenting complaint: Perforated viscus Interval history: Patient admitted perforated acute diverticulitis. . Had a sigmoid colectomy and has a drain in place with partial closure of the incision. NG tube in place. Bishop catheter in place Today-. Remains in the ICU. . NG tube remains in place. On the ventilator. FiO2 50 and PEEP of 5. Propofol drip running at that mics. Also getting PPN. Telemetry shows sinus rhythm.. Failed urine output. Review of systems: Unable to obtain as patient is intubated Current medications reviewed that included: IV Flagyl, IV Zosyn, PPN, IV propofol On examination: VITAL SIGNS: 98.9, 94, 20, 120/54, 98% GENERAL: Laying in bed intubated. EYES: Pupils equal. Conjunctiva normal. HEENT: External appearance of nose and ears normal, NG tube in place. NECK: JVD unable to assess; masses not palpable. HEART: Heart sounds irregular , no edema. LUNGS: Respiratory rate increased; decreased breath sounds. ABDOMEN: left-sided colostomy with liquid bloody drainage, dressing in place with a SAMY drain, tender, no mass palpable. Ostomy itself is rather dark colored PSYCH: Sedated and unable to assessl. NEUROLOGICAL: Cranial nerves grossly intact; no facial asymmetry, pupils reactive Investigations reviewed in the clinical context White count 19.2, hemoglobin 7.8, sodium 148, BUN 38, creatinine 1.09 blood Pressure showed a pH of 7.49 and a pO2 of 71 Accu-Cheks 179, 175 Abdominal wound culture growing anaerobic gram-negative bacilli and E. coli and Pseudomonas aeruginosa Assessment: -Acute perforated sigmoid diverticulitis with secondary peritonitis, slow to respond -Sigmoid colectomy with a resultant colostomy and a SAMY drain in place -Hypotensive and septic shock, status post pressure support -Acute renal failure, ATN from septic shock, with significant improvement -Paroxysmal atrial flutter,, rapid initially,, now in sinus rhythm -Coronary artery disease with prior history of stent and bypass -Hyperlipidemia -Essential hypertension history of -Primary osteoarthritis -BPH -Hypothyroidism -Chronic gout -PTSD -Coumadin monitoring. Status post vitamin K and fresh frozen plasma. Plan: Remains critically ill. Patient's at the bedside who is you have with his brother. Did speak to them and give them an update. Continue with supportive care. Continue current medication treatment plan antibiotics. Patient remains on IV Flagyl and IV Zosyn and supportive PPN
[2018-10-08 18:04] LABS: Glucose,Whole Blood 179 mg/dL (75-99)
--- NOTE | 2018-10-08 22:19 | P.PN ---
Progress Note - Text Progress Note Date: 10/08/18 Presenting complaint: Perforated viscus Interval history: Patient admitted perforated acute diverticulitis. . Had a sigmoid colectomy and has a drain in place with partial closure of the incision. NG tube in place. Bishop catheter in place Today-. Remains in the ICU. . Intubated. FiO2 40 and a PEEP of 5. Drips include propofol at 20 mics. PPN is continued. Telemetry shows sinus rhythm. Minimal if any output to rule out colostomy bag.. Some drainage to the SAMY drain. Patient with a wound VAC in place. Review of systems: Unable to obtain as patient is intubated Current medications reviewed that included: IV Flagyl, IV Zosyn, PPN, IV propofol On examination: VITAL SIGNS: Afebrile, 24, 113/67, 95% on the ventilator GENERAL: Laying in bed intubated. EYES: Pupils equal. Conjunctiva normal. HEENT: External appearance of nose and ears normal, NG tube in place. NECK: JVD unable to assess; masses not palpable. HEART: Heart sounds irregular , no edema. LUNGS: Respiratory rate increased; decreased breath sounds. ABDOMEN: left-sided colostomy with minimal liquid bloody drainage, abdominal wound VAC in place. SAMY drain, tender, no mass palpable. Ostomy itself is rather dark colored PSYCH: Sedated and unable to assessl. NEUROLOGICAL: Cranial nerves grossly intact; no facial asymmetry, pupils reactive Investigations reviewed in the clinical context White count 70.5, hemoglobin 8.1, potassium 3.5, creatinine 1.04 [id number], 163 Abdominal wound culture growing anaerobic gram-negative bacilli and E. coli and Pseudomonas aeruginosa Assessment: -Acute perforated sigmoid diverticulitis with secondary peritonitis, slow to respond -Sigmoid colectomy with a resultant colostomy and a SAMY drain in place -Hypotensive and septic shock, status post pressure support -Acute renal failure, ATN from septic shock, with significant improvement -Paroxysmal atrial flutter,, rapid initially,, now in sinus rhythm -Coronary artery disease with prior history of stent and bypass -Hyperlipidemia -Essential hypertension history of -Primary osteoarthritis -BPH -Hypothyroidism -Chronic gout -PTSD -Coumadin monitoring. Status post vitamin K and fresh frozen plasma. Plan: Slow to respond. Remains on antibiotics including IV Flagyl and Zosyn. Also getting PPN. Remains on the ventilator. Bowels are still not working. Prognosis guarded. Follow along.
[2018-10-08 23:33] LABS: Glucose,Whole Blood 185 mg/dL (75-99)
[2018-10-09] MEDS: INSULIN ASPART (NovoLOG) 100 UNIT/ML VIAL SQ SCH ×4 (00:47→18:36)
[2018-10-09] MEDS: PIPERACILLIN-TAZOBACTAM 3.375 GM in SODIUM CHLORIDE 0.9% 100 ML IVPB SCH ×3 (00:48→16:10)
[2018-10-09] MEDS: DEXTROSE 5% IN WATER 1,000 ML IV SCH (02:11)
[2018-10-09] MEDS: PROPOFOL 1,000 MG in EMPTY BAG 1 BAG IV SCH ×2 (02:11→07:39)
[2018-10-09] MEDS: HYDROmorphone 1 MG/ML 1 ML SYRINGE IVP PRN ×4 (02:35→16:11)
[2018-10-09] MEDS: IPRATROPIUM-ALBUTEROL 3 ML NEB INHALATION SCH ×6 (03:36→23:53)
[2018-10-09 04:54] LABS: ABG Base Excess 1.8 mmol/L; ABG HCO3 25 mmol/L (21-25); ABG Oxygen Saturation 96.8 % (94-97); ABG PCO2 34 mmHg (35-45); ABG PH 7.48 (7.35-7.45); ABG PO2 84 mmHg (83-108); ABG TCO2 26 mmol/L (19-24); Allen Test Performed? Yes
[2018-10-09 05:41] LABS: Glucose,Whole Blood 198 mg/dL (75-99)
[2018-10-09 06:10] LABS: Glucose,Whole Blood 182 mg/dL (75-99)
[2018-10-09 06:35] LABS: Anisocytosis Slight; HCT 24.2 % (39.0-53.0); HGB 7.9 gm/dL (13.0-17.5); Hypochromasia Slight; MCH 32.2 pg (25.0-35.0); MCHC 32.7 g/dL (31.0-37.0); MCV 98.3 fL (80.0-100.0); Macrocytosis Slight; Mean Platelet Volume 9.8; Platelet Count 227 k/uL (150-450); Poikilocytosis Slight; RBC 2.46 m/uL (4.30-5.90); RDW 18.6 % (11.5-15.5); WBC 15.9 k/uL (3.8-10.6)
[2018-10-09 06:46] LABS: INR 1.1 (<1.2); Partial Thromboplastin Time 24.9 sec (22.0-30.0); Prothrombin Time 11.6 sec (9.0-12.0)
[2018-10-09 07:10] LABS: Phosphorus 3.5 mg/dL (2.5-4.5); Potassium 3.4 mmol/L (3.5-5.1)
[2018-10-09] MEDS ORDERED: Potassium Replacement Protocol 1 EACH MISC MISCELLANE PRN (07:33)
--- NOTE | 2018-10-09 08:09 | XR ---
EXAMINATION TYPE: XR chest 1V portable DATE OF EXAM: 10/09/2018 COMPARISON: 10/08/2018 HISTORY: Tube placement TECHNIQUE: Single frontal view of the chest is obtained. FINDINGS: ET tube stable. Suggestion of an NG tube which is difficult to identify due to technique. Postsurgical changes are seen and there is bilateral consolidation and pleural effusion. Right-sided PICC line seen with the tip overlying the right atrium. No sizable pneumothorax. Underlying venous co ngestion in the differential diagnosis. A chronic rib cage deformity noted. IMPRESSION: 1. Postsurgical changes appear stable with bilateral consolidation and pleural effusion. Underlying v enous congestion in the differential diagnosis.
[2018-10-09] MEDS: POTASSIUM CHLORIDE 20 MEQ in WATER FOR INJECTION 1 100ML.BAG IVPB SCH ×2 (08:42→11:19)
[2018-10-09] MEDS: CHLORHEXIDINE GLUCONATE 15 ML CUP MUCOUS MEM SCH ×2 (08:42→21:14)
[2018-10-09] MEDS: PANTOPRAZOLE 40 MG/10 ML VIAL IVP SCH ×2 (08:42→21:14)
[2018-10-09] MEDS ORDERED: METOPROLOL TARTRATE 5 MG/5 ML VIAL IVP PRN (09:00)
[2018-10-09] MEDS: MVI, ADULT NO.4 WITH VIT K 10 ML, TRACE (CONC-1ML/DOSE) 1 ML, POTASSIUM PHOSPHATE 15 MM... IV SCH ×8 (11:19)
[2018-10-09] MEDS ORDERED: FUROSEMIDE 10 MG/ML 4 ML VIAL IV STA (11:42)
[2018-10-09] MEDS: SODIUM CHLORIDE 0.9% 1,000 ML IV SCH (11:51)
[2018-10-09 11:52] LABS: Glucose,Whole Blood 193 mg/dL (75-99)
[2018-10-09] MEDS: metroNIDAZOLE-NS PMX 500 MG in SALINE 1 100ML.BAG IVPB SCH ×2 (12:20→18:36)
--- NOTE | 2018-10-09 13:13 | P.PN ---
Subjective Progress Note Date: 10/09/18 CHIEF COMPLAINT: Abdominal pain HISTORY OF PRESENT ILLNESS: Patient is status post exploratory laparotomy, sigmoid colectomy with end colostomy, and drainage of abscess secondary to perforated diverticulitis. Patient remains on mechanical ventilation in the ICU. TPN infusing. Wound vac to abdominal incision. WBC 15.9. Hemoglobin 7.9 PHYSICAL EXAM: VITAL SIGNS: Reviewed. GENERAL: Well-developed. Remains on mechanical ventilation. HEENT: ET noted. NG to LIS. No sclera icterus. Extraocular movements grossly intact. Moist buccal mucosa. Head is atraumatic, normocephalic. ABDOMEN: Wound vac to abdomen. Ostomy intact with small amount of bloody drainage. Majority of stomy appears to be ischemic. SAMY drain noted to right lower quadrant. NEUROLOGIC: Unable to assess secondary to mechanical ventilation ASSESSMENT: 1. Perforated diverticulitis, status post exploratory laparotomy, sigmoid colectomy with end colostomy, and drainage of abscess 2. Sepsis 3. Peritonitis PLAN: 1. Ventilator management per Dr. Escalante 2. Continue wound vac 3. Continue NG to LIS 4. Continue TPN 5. Monitor CBC 6. Continue IV Protonix 7. Patient to be tentatively scheduled for Trach and PEG tomorrow with Dr. Woodward Nurse practitioner note has been reviewed by physician. Signing provider agrees with the documented findings, assessment, and plan of care. Objective - Vital Signs Vital signs: Vital Signs Temp 98.2 F 10/09/18 08:00 Pulse 100 10/09/18 11:30 Resp 24 10/09/18 11:00 BP 137/75 10/09/18 10:00 Pulse Ox 93 L 10/09/18 11:00 Intake & Output 10/08/18 10/09/18 10/09/18 18:59 06:59 18:59 Intake Total 3175.42 1551 1036.904 Output Total 2950 1240 470 Balance 225.42 311 566.904 Weight 131.1 kg 131.1 kg Intake: IV 2238 1451 949 Dextrose 5% in Water 1, 780 480 300 000 ml @ 60 mls/hr IV . [id number] [facility] Rx#:[id number] KVO 70 40 Mvi, Adult No.4 with Vit 845 715 325 K 10 ml Trace (Conc-1Ml/ Dose) 1 ml Potassium Phosphate 15 mmol Sodium Acetate 20 meq Potassium Chloride 10 meq Magnesium Sulfate gm 1 gm Calcium Gluconate 1 gm In Amino Acid 4.25%-D10w 1,000 ml @ 65 mls/hr IV .Q16H3M [facility] Rx#:[id number] Piperacillin-Tazobactam 3 100 100 .375 gm In Sodium Chloride 0.9% 100 ml @ 25 mls/hr IVPB Q8HR [facility] Rx# :[id number] Potassium Chloride 10 meq 200 In Water For Injection 1 100ml.bag @ 100 mls/hr IVPB Q1H [facility] Rx#: [id number] Potassium Chloride 20 meq 200 In Water For Injection 1 100ml.bag @ 50 mls/hr IVPB Q2H [facility] Rx#: [id number] Sodium Chloride 0.9% 1, 20 20 60 000 ml @ 20 mls/hr IV . Q24H [facility] Rx#:[id number] pressure bag 3 66 24 Intake, IV Titration 1227.42 100 87.904 Amount Mvi, Adult No.4 with Vit 1043 K 10 ml Trace (Conc-1Ml/ Dose) 1 ml Potassium Phosphate 15 mmol Sodium Acetate 20 meq Potassium Chloride 10 meq Magnesium Sulfate gm 1 gm Calcium Gluconate 1 gm In Amino Acid 4.25%-D10w 1,000 ml @ 65 mls/hr IV .Q16H3M [facility] Rx#:[id number] Propofol 1,000 mg In 184.42 100 87.904 Empty Bag 1 bag @ Titrate IV .Q0M [facility] Rx#: [id number] Output: Urine 2950 1240 470 Stool 0 Other: Voiding Method Indwelling Catheter Indwelling Catheter Indwelling Catheter # Voids 0 ABP, PAP, CO, CI - Last Documented Arterial Blood Pressure 103/60 - Labs CBC & Chem 7: 10/09/18 05:15 10/09/18 05:15 Labs: Abnormal Lab Results - Last 24 Hours (Table) 10/08/18 10/08/18 10/09/18 Range/Units 17:37 23:30 04:51 WBC (3.8-10.6) k/uL RBC (4.30-5.90) m/uL Hgb (13.0-17.5) gm/dL Hct (39.0-53.0) % RDW (11.5-15.5) % ABG pH 7.48 H (7.35-7.45) ABG pCO2 34 L (35-45) mmHg ABG Total CO2 26 H (19-24) mmol/L Potassium (3.5-5.1) mmol/L BUN (9-20) mg/dL Glucose (74-99) mg/dL POC Glucose (mg/dL) 179 H 185 H (75-99) mg/dL Calcium (8.4-10.2) mg/dL 10/09/18 10/09/18 10/09/18 Range/Units 05:15 05:15 05:26 WBC 15.9 H (3.8-10.6) k/uL RBC 2.46 L (4.30-5.90) m/uL Hgb 7.9 L (13.0-17.5) gm/dL Hct 24.2 L (39.0-53.0) % RDW 18.6 H (11.5-15.5) % ABG pH (7.35-7.45) ABG pCO2 (35-45) mmHg ABG Total CO2 (19-24) mmol/L Potassium 3.4 L (3.5-5.1) mmol/L BUN 37 H (9-20) mg/dL Glucose 172 H (74-99) mg/dL POC Glucose (mg/dL) 198 H (75-99) mg/dL Calcium 7.0 L (8.4-10.2) mg/dL 10/09/18 10/09/18 Range/Units 05:42 11:48 WBC (3.8-10.6) k/uL RBC (4.30-5.90) m/uL Hgb (13.0-17.5) gm/dL Hct (39.0-53.0) % RDW (11.5-15.5) % ABG pH (7.35-7.45) ABG pCO2 (35-45) mmHg ABG Total CO2 (19-24) mmol/L Potassium (3.5-5.1) mmol/L BUN (9-20) mg/dL Glucose (74-99) mg/dL POC Glucose (mg/dL) 182 H 193 H (75-99) mg/dL Calcium (8.4-10.2) mg/dL
[2018-10-09 13:34] LABS: ABG Base Excess 1.2 mmol/L; ABG HCO3 24 mmol/L (21-25); ABG Oxygen Saturation 95.8 % (94-97); ABG PCO2 29 mmHg (35-45); ABG PH 7.52 (7.35-7.45); ABG PO2 74 mmHg (83-108); ABG TCO2 25 mmol/L (19-24); Allen Test Performed? Yes
--- NOTE | 2018-10-09 17:52 | P.PN ---
Subjective patient is intubated and sedated. He had sigmoid colectomy with a drain placement and partial closure of the incision for a perforated acute divert iculitis. He has a wound VAC in place as well. Not able to obtain review of systems secondary to the patient's state Objective - Vital Signs Vital signs: Vital Signs Temp 98.3 F 10/09/18 16:00 Pulse 102 H 10/09/18 17:30 Resp 23 10/09/18 17:30 BP 98/54 10/09/18 14:00 Pulse Ox 94 L 10/09/18 17:30 Intake & Output 10/08/18 10/09/18 10/09/18 18:59 06:59 18:59 Intake Total 3175.42 1551 2047.532 Output Total 2950 1240 1860 Balance 225.42 311 187.532 Weight 131.1 kg 131.1 kg Intake: IV 1947 1451 1954 Dextrose 5% in Water 1, 780 480 300 000 ml @ 60 mls/hr IV . [id number] [facility] Rx#:[id number] KVO 70 40 Mvi, Adult No.4 with Vit 845 715 715 K 10 ml Trace (Conc-1Ml/ Dose) 1 ml Potassium Phosphate 15 mmol Sodium Acetate 20 meq Potassium Chloride 10 meq Magnesium Sulfate gm 1 gm Calcium Gluconate 1 gm In Amino Acid 4.25%-D10w 1,000 ml @ 65 mls/hr IV .Q16H3M [facility] Rx#:[id number] Piperacillin-Tazobactam 3 100 100 100 .375 gm In Sodium Chloride 0.9% 100 ml @ 25 mls/hr IVPB Q8HR [facility] Rx# :[id number] Potassium Chloride 10 meq 200 In Water For Injection 1 100ml.bag @ 100 mls/hr IVPB Q1H [facility] Rx#: [id number] Potassium Chloride 20 meq 200 In Water For Injection 1 100ml.bag @ 50 mls/hr IVPB Q2H [facility] Rx#: [id number] Sodium Chloride 0.9% 1, 20 20 60 000 ml @ 20 mls/hr IV . Q24H [facility] Rx#:[id number] Sodium Chloride 0.9% 1, 300 000 ml @ 50 mls/hr IV . Q20H [facility] Rx#:[id number] [id number]-NS PMX 500 200 mg In Saline 1 100ml.bag @ 100 mls/hr IVPB Q6HR [facility] Rx#:[id number] pressure bag 3 66 39 Intake, IV Titration 1227.42 100 93.532 Amount Mvi, Adult No.4 with Vit 1043 K 10 ml Trace (Conc-1Ml/ Dose) 1 ml Potassium Phosphate 15 mmol Sodium Acetate 20 meq Potassium Chloride 10 meq Magnesium Sulfate gm 1 gm Calcium Gluconate 1 gm In Amino Acid 4.25%-D10w 1,000 ml @ 65 mls/hr IV .Q16H3M [facility] Rx#:[id number] Propofol 1,000 mg In 184.42 100 93.532 Empty Bag 1 bag @ Titrate IV .Q0M [facility] Rx#: [id number] Output: Urine 2950 1240 1860 Stool 0 Other: Voiding Method Indwelling Catheter Indwelling Catheter Indwelling Catheter # Voids 0 ABP, PAP, CO, CI - Last Documented Arterial Blood Pressure 133/63 - Exam On exam, patient intubated and sedated HEENT: Conjunctivae normal. eyes normal. NECK: No JVD. No thyroid enlargement. No LNs CARDIOVASCULAR: S1-S2 positive RESPIRATION: Breath sounds diminished in the bases. No rhonchi or crackles. No bronchial breathing. ABDOMEN: soft bowel sounds present. Patient has left-sided colostomy with dressing in place. He also had a wound VAC and drained. LEGS: No edema. no swelling NERVOUS SYSTEM: not able to assess the neuro system as the patient is intubated and sedated Joints: No active swelling. No inflammation. Lymphatic system. No LN neck axilla or groin. - Labs CBC & Chem 7: 10/09/18 05:15 10/09/18 05:15 Labs: Abnormal Lab Results - Last 24 Hours (Table) 10/08/18 10/08/18 10/09/18 Range/Units 17:37 23:30 04:51 WBC (3.8-10.6) k/uL RBC (4.30-5.90) m/uL Hgb (13.0-17.5) gm/dL Hct (39.0-53.0) % RDW (11.5-15.5) % ABG pH 7.48 H (7.35-7.45) ABG pCO2 34 L (35-45) mmHg ABG pO2 (83-108) mmHg ABG Total CO2 26 H (19-24) mmol/L Potassium (3.5-5.1) mmol/L BUN (9-20) mg/dL Glucose (74-99) mg/dL POC Glucose (mg/dL) 179 H 185 H (75-99) mg/dL Calcium (8.4-10.2) mg/dL 10/09/18 10/09/18 10/09/18 Range/Units 05:15 05:15 05:26 WBC 15.9 H (3.8-10.6) k/uL RBC 2.46 L (4.30-5.90) m/uL Hgb 7.9 L (13.0-17.5) gm/dL Hct 24.2 L (39.0-53.0) % RDW 18.6 H (11.5-15.5) % ABG pH (7.35-7.45) ABG pCO2 (35-45) mmHg ABG pO2 (83-108) mmHg ABG Total CO2 (19-24) mmol/L Potassium 3.4 L (3.5-5.1) mmol/L BUN 37 H (9-20) mg/dL Glucose 172 H (74-99) mg/dL POC Glucose (mg/dL) 198 H (75-99) mg/dL Calcium 7.0 L (8.4-10.2) mg/dL 10/09/18 10/09/18 10/09/18 Range/Units 05:42 11:48 13:32 WBC (3.8-10.6) k/uL RBC (4.30-5.90) m/uL Hgb (13.0-17.5) gm/dL Hct (39.0-53.0) % RDW (11.5-15.5) % ABG pH 7.52 H (7.35-7.45) ABG pCO2 29 L (35-45) mmHg ABG pO2 74 L (83-108) mmHg ABG Total CO2 25 H (19-24) mmol/L Potassium (3.5-5.1) mmol/L BUN (9-20) mg/dL Glucose (74-99) mg/dL POC Glucose (mg/dL) 182 H 193 H (75-99) mg/dL Calcium (8.4-10.2) mg/dL Assessment and Plan Assessment: - acute respiratory failure status post intubation - Acute perforated enterocolitis status post sigmoid colectomy, with resultant colostomy and SAMY drain. - Septic shock with hypertension status post pressor support - AK I - CAD - Hyperlipidemia - Hypertension - Proximal atrial flutter on Coumadin - Hypothyroidism Plan - Patient intubated. Appreciated ICU recommendations - General surgery on board as well. - infectious disease on board for antibiotic recommendations - Nephrology consult for AK I - continue current medical care - We'll follow the patient Time with Patient: Greater than 30
[2018-10-09 18:18] LABS: Glucose,Whole Blood 172 mg/dL (75-99)
--- NOTE | 2018-10-09 18:22 | P.PN ---
Subjective Progress Note Date: 10/09/18 On 10/09/2018 I'm seeing this patient for a follow-up. The patient is still intubated on a mechanical ventilator. The plan is to proceed with a PEG and trach and a.m. The patient had a complicated perforated diverticulitis. 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 For now, the colostomy site cannot be well visualized. The stoma seems to be resected at this point in time. The patient has a wound VAC in place in the lower abdominal area. The colostomy site is nonfunctional and there is no significant output in the bag. The patient is receiving TPN for nutritional support. His abdomen is nondistended. He is still on IV Zosyn and Flagyl as the wound culture at shown a combination of E. coli and Pseudomonas. The patient is still intubated on a mechanical ventilator. On today's evaluation the patient was in a tidal volume of 500 and FiO2 of 40% and a PEEP of 5 and a rate of 20. The chest x-ray showed postsurgical changes which were stable and there is bilateral consolidation pleural effusion. There is also venous congestion within the differential diagn osis. There is also a right-sided PICC line in place. There is evidence of any pneumothorax. The blood gases from today showed a pH of 7.52 with a pCO2 of 29 and pO2 of 74. At fluid balance has been positive over the past 3 days. The patient does not show any significant signs of fluid positivity. The patient is also on normal saline today to 50 mL an hour. A sedation holiday was given. Th e patient woke up nicely and his weaning parameters were borderline with a vital capacity of 500 with alone if. His respiratory rate was in the low 30s. At that point he was given a spontaneous breathing trial for a total of 1 hour. At the end of this point is breathing trial the patient failed and the patient became quite tachypneic and tachycardic and the child was aborted and the patient was placed back on sedation with propofol. Objective - Vital Signs Vital signs: Vital Signs Temp 98.3 F 10/09/18 16:00 Pulse 102 H 10/09/18 17:30 Resp 23 10/09/18 17:30 BP 98/54 10/09/18 14:00 Pulse Ox 94 L 10/09/18 17:30 Intake & Output 10/08/18 10/09/18 10/09/18 18:59 06:59 18:59 Intake Total 3175.42 1551 2047.532 Output Total 2950 1240 1860 Balance 225.42 311 187.532 Weight 131.1 kg 131.1 kg Intake: IV 1947 1451 1954 Dextrose 5% in Water 1, 780 480 300 000 ml @ 60 mls/hr IV . [id number] [facility] Rx#:[id number] KVO 70 40 Mvi, Adult No.4 with Vit 845 715 715 K 10 ml Trace (Conc-1Ml/ Dose) 1 ml Potassium Phosphate 15 mmol Sodium Acetate 20 meq Potassium Chloride 10 meq Magnesium Sulfate gm 1 gm Calcium Gluconate 1 gm In Amino Acid 4.25%-D10w 1,000 ml @ 65 mls/hr [id number] Rx#:[id number] Piperacillin-Tazobactam 3 100 100 100 .375 gm In Sodium Chloride 0.9% 100 ml @ 25 mls/hr IVPB Q8HR [facility] Rx# :[id number] Potassium Chloride 10 meq 200 In Water For Injection 1 100ml.bag @ 100 mls/hr IVPB Q1H [facility] Rx#: [id number] Potassium Chloride 20 meq 200 In Water For Injection 1 100ml.bag @ 50 mls/hr IVPB Q2H [facility] Rx#: [id number] Sodium Chloride 0.9% 1, 20 20 60 000 ml @ 20 mls/hr IV . Q24H [facility] Rx#:[id number] Sodium Chloride 0.9% 1, 300 000 ml @ 50 mls/hr IV . Q20H [facility] Rx#:[id number] metroNIDAZOLE-NS PMX 500 200 mg In Saline 1 100ml.bag @ 100 mls/hr IVPB Q6HR [facility] Rx#:[id number] pressure bag 3 66 39 Intake, IV Titration 1227.42 100 93.532 Amount Mvi, Adult No.4 with Vit 1043 K 10 ml Trace (Conc-1Ml/ Dose) 1 ml Potassium Phosphate 15 mmol Sodium Acetate 20 meq Potassium Chloride 10 meq Magnesium Sulfate gm 1 gm Calcium Gluconate 1 gm In Amino Acid 4.25%-D10w 1,000 ml @ 65 mls/hr IV .Q16H3M [facility] Rx#:[id number] Propofol 1,000 mg In 184.42 100 93.532 Empty Bag 1 bag @ Titrate IV .Q0M [facility] Rx#: [id number] Output: Urine 2950 1240 1860 Stool 0 Other: Voiding Method Indwelling Catheter Indwelling Catheter Indwelling Catheter # Voids 0 ABP, PAP, CO, CI - Last Documented Arterial Blood Pressure 133/63 - Exam Obese, comfortable intubated on a mechanical ventilator. The patient is intubated on a mechanical ventilator. Orogastric and orotracheal tube are both in place. Head exam was generally normal. There was no scleral icterus or corneal arcus. Mucous membranes were moist. Neck was supple and without jugular venous distension, thyromegaly, or carotid bruits. Carotids were easily palpable bilaterally. There was no adenopathy. Lungs were clear to auscultation and percussion, and with normal diaphragmatic excursion. No wheezes or rales were noted. Breath sounds are diminished in lung bases bilaterally. Cardiac exam revealed the PMI to be normally situated and sized. The rhythm was regular and no extrasystoles were noted during several minutes of auscultation. The first and second heart sounds were normal and physiologic splitting of the second heart sound was noted. There were no murmurs, rubs, clicks, or gallops. Abdomen is soft and the patient has a mid abdominal incision which is dry clean and intact. There is a wound VAC in place. The colostomy site is nonfunctional. I'm unable to see the colostomy edges as the stoma itself it seems to be resected under the skin. No abdominal distention be bowel sounds are hypoactive at this point in time he is no direct tenderness. No rebound tenderness. No guarding. Examination of the extremities revealed easily palpable radial, femoral and pedal pulses. There was no cyanosis, clubbing or edema. Examination of the skin revealed no evidence of significant rashes, suspicious appearing nevi or other concerning lesions. Neurologically the patient is arousable after being given a sedation holiday. He was able to follow some simple commands. He is profoundly weak in both upper and lower extremities.. Pupils are equal and reactive to light. - Labs CBC & Chem 7: 10/09/18 05:15 10/09/18 05:15 Labs: Abnormal Lab Results - Last 24 Hours (Table) 10/08/18 10/09/18 10/09/18 Range/Units 23:30 04:51 05:15 WBC (3.8-10.6) k/uL RBC (4.30-5.90) m/uL Hgb (13.0-17.5) gm/dL Hct (39.0-53.0) % RDW (11.5-15.5) % ABG pH 7.48 H (7.35-7.45) ABG pCO2 34 L (35-45) mmHg ABG pO2 (83-108) mmHg ABG Total CO2 26 H (19-24) mmol/L Potassium 3.4 L (3.5-5.1) mmol/L BUN 37 H (9-20) mg/dL Glucose 172 H (74-99) mg/dL POC Glucose (mg/dL) 185 H (75-99) mg/dL Calcium 7.0 L (8.4-10.2) mg/dL 10/09/18 10/09/18 10/09/18 Range/Units 05:15 05:26 05:42 WBC 15.9 H (3.8-10.6) k/uL RBC 2.46 L (4.30-5.90) m/uL Hgb 7.9 L (13.0-17.5) gm/dL Hct 24.2 L (39.0-53.0) % RDW 18.6 H (11.5-15.5) % ABG pH (7.35-7.45) ABG pCO2 (35-45) mmHg ABG pO2 (83-108) mmHg ABG Total CO2 (19-24) mmol/L Potassium (3.5-5.1) mmol/L BUN (9-20) mg/dL Glucose (74-99) mg/dL POC Glucose (mg/dL) 198 H 182 H (75-99) mg/dL Calcium (8.4-10.2) mg/dL 10/09/18 10/09/18 Range/Units 11:48 13:32 WBC (3.8-10.6) k/uL RBC (4.30-5.90) m/uL Hgb (13.0-17.5) gm/dL Hct (39.0-53.0) % RDW (11.5-15.5) % ABG pH 7.52 H (7.35-7.45) ABG pCO2 29 L (35-45) mmHg ABG pO2 74 L (83-108) mmHg ABG Total CO2 25 H (19-24) mmol/L Potassium (3.5-5.1) mmol/L BUN (9-20) mg/dL Glucose (74-99) mg/dL POC Glucose (mg/dL) 193 H (75-99) mg/dL Calcium (8.4-10.2) mg/dL Assessment and Plan Plan: 1 sigmoid colectomy and diverting colostomy for a perforated diverticular abscess formation. The patient is postop day #8 2 acute hypoxic respiratory failure secondary to above. The patient has failed to wean. Weaning parameters remain poor 3 abdominal sepsis secondary to E. coli and pseudomonas aeruginosa. The patient is currently on accommodation Zosyn and Flagyl 4 hypotension recovered 5 proximal atrial fibrillation current rhythm is sinus 6 history of hypothyroidism 7 history of hyperlipidemia 8 history of hypertension 9 degenerative arthritis Plan Keep the patient on sedation. The patient has failed to wean on few occasions based on the fact that the patient's weaning parameters have been poor. Continue same antibiotic coverage. Proceed with a PEG and trach insertion for tomorrow. Atelectatic discussion with the family. We'll try to give the patient is sedation holiday and a weaning trial and he failed. Accordingly, he is going to have a PEG and trach tomorrow and further recommendations are to follow. This will likely be a slow wean. It'll be also reasonable to ask the surgeon to reevaluate the stoma and his functionality. We'll continue to follow. Continue supportive care. Keep the wound VAC in place. Continue TPN for nutritional support. Is a critically care evaluation that was done in more than 30 minutes. Time with Patient: Greater than 30
[2018-10-09] MEDS: INSULIN DETEMIR (LEVEMIR) 100 UNIT/ML SYR SQ SCH (21:14)
[2018-10-09 21:17] LABS: Glucose,Whole Blood 166 mg/dL (75-99)
--- NOTE | 2018-10-09 22:12 | PN ---
PROGRESS NOTE DATE OF SERVICE: 10/09/2018. REASON FOR FOLLOWUP: Abdominal abscess from ruptured diverticulitis. INTERVAL HISTORY: The patient is currently afebrile. Patient has been currently weaned off the vent. Patient is hemodynamically stable. Not on any pressor support. FiO2 is currently stable. No output in the colostomy bag. PHYSICAL EXAMINATION: Blood pressure is 133/63 with a pulse of 102, temperature 98. He is 94% on 40% FiO2. General description is an elderly male male lying in bed in no distress. Respiratory system: Unlabored breathing with decreased breath sounds in the bases. No wheeze. Heart S1, S2. Regular rate and rhythm. Abdomen soft, no tenderness. Extremities: No edema of the feet. LABS: Hemoglobin 7, white count 15.9. BUN of 37. Creatinine 1.05. DIAGNOSTIC IMPRESSION AND PLAN: 1. Patient with abdominal abscess from ruptured sigmoid diverticulitis, post laparotomy and diverting colostomy. Currently covered with Zosyn to continue. Should cover E coli and anaerobic gram-negative and Pseudomonas . 2. Lower abdominal incision wound. Local wound care with wound VAC to be changed q.48 hours. Continue supportive care. MMODL / IJN: [id number] / ELSA
[2018-10-10 00:04] LABS: Glucose,Whole Blood 153 mg/dL (75-99)
[2018-10-10] MEDS: PIPERACILLIN-TAZOBACTAM 3.375 GM in SODIUM CHLORIDE 0.9% 100 ML IVPB SCH ×4 (00:07→23:17)
[2018-10-10] MEDS: metroNIDAZOLE-NS PMX 500 MG in SALINE 1 100ML.BAG IVPB SCH ×5 (00:07→23:18)
[2018-10-10] MEDS: INSULIN ASPART (NovoLOG) 100 UNIT/ML VIAL SQ SCH ×4 (00:07→18:21)
[2018-10-10] MEDS: PROPOFOL 1,000 MG in EMPTY BAG 1 BAG IV SCH ×3 (00:20→21:00)
[2018-10-10] MEDS: HYDROmorphone 1 MG/ML 1 ML SYRINGE IVP PRN ×5 (01:18→23:30)
[2018-10-10] MEDS: IPRATROPIUM-ALBUTEROL 3 ML NEB INHALATION SCH ×5 (04:09→20:27)
[2018-10-10] MEDS: MVI, ADULT NO.4 WITH VIT K 10 ML, TRACE (CONC-1ML/DOSE) 1 ML, POTASSIUM PHOSPHATE 15 MM... IV SCH ×16 (04:31→21:54)
[2018-10-10 04:56] LABS: ABG HCO3 24 mmol/L (21-25); ABG PCO2 30 mmHg (35-45); ABG PH 7.52 (7.35-7.45); ABG PO2 64 mmHg (83-108); ABG TCO2 25 mmol/L (19-24)
[2018-10-10 05:42] LABS: Anisocytosis Slight; HCT 26.6 % (39.0-53.0); HGB 8.6 gm/dL (13.0-17.5); Hypochromasia Slight; MCH 31.8 pg (25.0-35.0); MCHC 32.2 g/dL (31.0-37.0); MCV 98.8 fL (80.0-100.0); Macrocytosis Slight; Mean Platelet Volume 9.5; Platelet Count 276 k/uL (150-450); Poikilocytosis Slight; RBC 2.69 m/uL (4.30-5.90); WBC 18.3 k/uL (3.8-10.6)
[2018-10-10 05:53] LABS: Calcium 7.1 mg/dL (8.4-10.2); Phosphorus 3.4 mg/dL (2.5-4.5); Potassium 3.7 mmol/L (3.5-5.1)
[2018-10-10 05:59] LABS: Glucose,Whole Blood 175 mg/dL (75-99)
[2018-10-10] MEDS: POTASSIUM CHLORIDE 10 MEQ in WATER FOR INJECTION 1 100ML.BAG IVPB SCH ×2 (06:09→08:31)
--- NOTE | 2018-10-10 08:12 | XR ---
EXAMINATION TYPE: XR chest 1V portable DATE OF EXAM: 10/10/2018 Comparison: 10/09/2018 Clinical History: 82 year-old male shortness of breath Findings: ET tube is in place. The lisbeth is not well seen. Consider pulling back 1.5 cm as a precautionary femi sure. NG tube not well seen. Right PICC tip within the lower right atrium. Heart remains enlarged wit h continued bibasilar patchy opacities and a prior right-sided thoracotomy change. Impression: 1. The lisbeth is not well seen. ET tube is in stable position. Consider pulling back by 1.5 cm as a p recautionary measure. NG tube is poorly visualized due to body habitus and underpenetration. 2. continued CHF with pulmonary vascular congestion. 3. Continued small effusions with adjacent atelectasis and/or consolidation.
[2018-10-10] MEDS: SODIUM CHLORIDE 0.9% 1,000 ML IV SCH (08:32)
[2018-10-10] MEDS: CHLORHEXIDINE GLUCONATE 15 ML CUP MUCOUS MEM SCH ×2 (08:33→21:52)
[2018-10-10] MEDS: PANTOPRAZOLE 40 MG/10 ML VIAL IVP SCH ×2 (08:33→21:52)
[2018-10-10 11:44] LABS: Glucose,Whole Blood 196 mg/dL (75-99)
[2018-10-10] MEDS ORDERED: fentaNYL (PF) 50 MCG/ML 2 ML AMP ONE (12:53)
[2018-10-10] MEDS ORDERED: ROCURONIUM BROMIDE 10 MG/ML 10 ML VIAL IV ONE (12:53)
[2018-10-10] MEDS ORDERED: SODIUM CHLORIDE 0.9% 1,000 ML IV ONE (13:18)
[2018-10-10] MEDS ORDERED: NOREPINEPHRINE 4 MG in SODIUM CHLORIDE 0.9% 250 ML IV SCH (14:26)
--- NOTE | 2018-10-10 14:53 | XR ---
EXAMINATION TYPE: XR chest 1V DATE OF EXAM: 10/10/2018 COMPARISON: Prior chest x-ray 10/10/2018 HISTORY: Desaturation, hypoxemia TECHNIQUE: Single frontal view of the chest is obtained. FINDINGS: Patient is rotated. Endotracheal tube thought to be within the right mainstem bronchus. Or ogastric tube in previous endotracheal tube have been removed in the interval. No evident pneumothora x or other significant interval change. Exam is expiratory and rotated. Patient is post median sterno jolly. Right-sided PICC line remains in place. IMPRESSION: Selective intubation, report relayed to patient's nurse at the time of interpretation at exam.
[2018-10-10 15:20] LABS: ABG Base Excess -1.9 mmol/L; ABG HCO3 23 mmol/L (21-25); ABG Oxygen Saturation 90.3 % (94-97); ABG PCO2 34 mmHg (35-45); ABG PH 7.43 (7.35-7.45); ABG TCO2 24 mmol/L (19-24); Allen Test Performed? Yes
[2018-10-10 15:24] LABS: ABG PO2 59 mmHg (83-108)
--- NOTE | 2018-10-10 15:38 | P.PN ---
Subjective patient is intubated and sedated. He had sigmoid colectomy with a drain placement and partial closure of the incision for a perforated acute divert iculitis. He has a wound VAC in place as well. Not able to obtain review of systems secondary to the patient's state 10/10/2018 Patient intubated and sedated. Patient will probably have a trach and PEG as he failed weaning trial several times Objective - Vital Signs Vital signs: Vital Signs Temp 98.2 F 10/10/18 12:00 Pulse 92 10/10/18 15:30 Resp 25 H 10/10/18 15:30 BP 140/67 10/10/18 15:20 Pulse Ox 92 L 10/10/18 15:30 Intake & Output 10/09/18 10/10/18 10/10/18 18:59 06:59 18:59 Intake Total 2165.532 3054.880 1278 Output Total 1960 1155 565 Balance 132.676 7623.880 713 Weight 131.1 kg 132.6 kg Intake: IV 2072 1816 1278 Dextrose 5% in Water 1, 300 000 ml @ 60 mls/hr IV . [id number] [facility] Rx#:[id number] KVO 40 Mvi, Adult No.4 with Vit 780 780 195 K 10 ml Trace (Conc-1Ml/ Dose) 1 ml Potassium Phosphate 15 mmol Sodium Acetate 20 meq Potassium Chloride 10 meq Magnesium Sulfate gm 1 gm Calcium Gluconate 1 gm In Amino Acid 4.25%-D10w 1,000 ml @ 65 mls/hr IV .Q16H3M [facility] Rx#:[id number] Mvi, Adult No.4 with Vit 65 K 10 ml Trace (Conc-1Ml/ Dose) 1 ml Potassium Phosphate 15 mmol Sodium Acetate 20 meq Potassium Chloride 30 meq Magnesium Sulfate gm 1 gm Calcium Gluconate 1 gm In Amino Acid 4.25%-D10w 1,000 ml @ 65 mls/hr IV .[id number] [facility] Rx#:[id number] Piperacillin-Tazobactam 3 100 100 100 .375 gm In Sodium Chloride 0.9% 100 ml @ 25 mls/hr IVPB Q8HR [facility] Rx# :[id number] Potassium Chloride 20 meq 200 100 200 In Water For Injection 1 100ml.bag @ 50 mls/hr IVPB Q2H [facility] Rx#: [id number] Sodium Chloride 0.9% 1, 60 000 ml @ 20 mls/hr IV . Q24H [facility] Rx#:[id number] Sodium Chloride 0.9% 1, 350 600 300 000 ml @ 50 mls/hr IV . Q20H [facility] Rx#:[id number] metroNIDAZOLE-NS PMX 500 200 200 mg In Saline 1 100ml.bag @ 100 mls/hr IVPB Q6HR [facility] Rx#:[id number] pressure bag 42 36 18 Intake, IV Titration 93.532 1238.880 Amount Mvi, Adult No.4 with Vit 1053 K 10 ml Trace (Conc-1Ml/ Dose) 1 ml Potassium Phosphate 15 mmol Sodium Acetate 20 meq Potassium Chloride 30 meq Magnesium Sulfate gm 1 gm Calcium Gluconate 1 gm In Amino Acid 4.25%-D10w 1,000 ml @ 65 mls/hr IV .[id number] [facility] Rx#:[id number] Propofol 1,000 mg In 93.532 185.880 Empty Bag 1 bag @ Titrate IV .Q0M [facility] Rx#: [id number] Output: Drainage 30 Right Abdomen 30 Urine 1960 1125 560 Estimated Blood Loss 5 Other: Voiding Method Indwelling Catheter Indwelling Catheter Indwelling Catheter ABP, PAP, CO, CI - Last Documented Arterial Blood Pressure 103/48 - Exam On exam, patient intubated and sedated HEENT: Conjunctivae normal. eyes normal. NECK: No JVD. No thyroid enlargement. No LNs CARDIOVASCULAR: S1-S2 positive RESPIRATION: Breath sounds diminished in the bases. No rhonchi or crackles. No bronchial breathing. ABDOMEN: soft bowel sounds present. Patient has left-sided colostomy with dressing in place. He also had a wound VAC and drained. LEGS: No edema. no swelling NERVOUS SYSTEM: not able to assess the neuro system as the patient is intubated and sedated Joints: No active swelling. No inflammation. Lymphatic system. No LN neck axilla or groin. - Labs CBC & Chem 7: 10/10/18 04:00 10/10/18 04:00 Labs: Abnormal Lab Results - Last 24 Hours (Table) 10/09/18 10/09/18 10/10/18 Range/Units 18:04 21:12 00:01 WBC (3.8-10.6) k/uL RBC (4.30-5.90) m/uL Hgb (13.0-17.5) gm/dL Hct (39.0-53.0) % RDW (11.5-15.5) % ABG pH (7.35-7.45) ABG pCO2 (35-45) mmHg ABG pO2 (83-108) mmHg ABG Total CO2 (19-24) mmol/L ABG O2 Saturation (94-97) % Chloride (98-107) mmol/L BUN (9-20) mg/dL Glucose (74-99) mg/dL POC Glucose (mg/dL) 172 H 166 H 153 H (75-99) mg/dL Calcium (8.4-10.2) mg/dL 10/10/18 10/10/18 10/10/18 Range/Units 04:00 04:00 04:52 WBC 18.3 H (3.8-10.6) k/uL RBC 2.69 L (4.30-5.90) m/uL Hgb 8.6 L (13.0-17.5) gm/dL Hct 26.6 L (39.0-53.0) % RDW 18.0 H (11.5-15.5) % ABG pH 7.52 H (7.35-7.45) ABG pCO2 30 L (35-45) mmHg ABG pO2 64 L (83-108) mmHg ABG Total CO2 25 H (19-24) mmol/L ABG O2 Saturation (94-97) % Chloride 108 H (98-107) mmol/L BUN 38 H (9-20) mg/dL Glucose 143 H (74-99) mg/dL POC Glucose (mg/dL) (75-99) mg/dL Calcium 7.1 L (8.4-10.2) mg/dL 10/10/18 10/10/18 10/10/18 Range/Units 05:55 11:40 15:16 WBC (3.8-10.6) k/uL RBC (4.30-5.90) m/uL Hgb (13.0-17.5) gm/dL Hct (39.0-53.0) % RDW (11.5-15.5) % ABG pH (7.35-7.45) ABG pCO2 34 L (35-45) mmHg ABG pO2 59 L* (83-108) mmHg ABG Total CO2 (19-24) mmol/L ABG O2 Saturation 90.3 L (94-97) % Chloride (98-107) mmol/L BUN (9-20) mg/dL Glucose (74-99) mg/dL POC Glucose (mg/dL) 175 H 196 H (75-99) mg/dL Calcium (8.4-10.2) mg/dL Assessment and Plan Assessment: - acute respiratory failure status post intubation - Acute perforated enterocolitis status post sigmoid colectomy, with resultant colostomy and SAMY drain. - Septic shock with hypertension status post pressor support - AK I - CAD - Hyperlipidemia - Hypertension - Proximal atrial flutter on Coumadin - Hypothyroidism Plan 10/09/2018 - Patient intubated. Appreciated ICU recommendations - General surgery on board as well. - infectious disease on board for antibiotic recommendations - Nephrology consult for AK I - continue current medical care - We'll follow the patient 10/10/2018 - Patient will probably get trach and PEG this afternoon - Antibiotic recommendations as per infectious disease - We'll continue rest of the medical care - Follow up on the patient
--- NOTE | 2018-10-10 17:21 | PN ---
PROGRESS NOTE Patient is seen for followup for acute kidney injury. His renal function has improved significantly, with creatinine down to 1.03 from 2.9 at peak. Patient remains on the vent. Morning blood pressure was 108/59, heart rate 98 per minute. He is afebrile. EXAMINATION OF THE HEART: S1 and S2. EXAMINATION OF LUNGS: Bilateral breath sounds are heard. He is going for trach and PEG. ABDOMEN: Soft, non-tender. There is bloody drainage from the ostomy. YARD CALLER exam cannot be performed. Labs show sodium 138, potassium 3.7, chloride 108, BUN 38, serum creatinine 1.03, hemoglobin 8.6 g/dL, phosphorus 3.4. ASSESSMENT: 1. Acute kidney injury, acute tubular necrosis, currently significantly improved, creatinine staying at about 1.0 mg/dL. 2. Hypoxic respiratory failure, maintained on the vent, going for trach and PEG. 3. Chronic kidney disease, stage III, secondary to nephrosclerosis. Baseline creatinine 1.1 to 1.3 mg/dL. 4. Septic shock from perforated diverticulitis. 5. Atrial fibrillation with rapid ventricular response, currently with controlled ventricular response. 6. Status post sigmoid colectomy and diverting colostomy for perforated diverticular abscess. PLAN: No changes from nephrology standpoint. MMODL / IJN: [id number] /
[2018-10-10 18:21] LABS: Glucose,Whole Blood 156 mg/dL (75-99)
--- NOTE | 2018-10-10 18:37 | P.PN ---
Subjective Progress Note Date: 10/10/18 On today's evaluation of 72,019 I saw this patient preoperatively. The patient was in a state that is essentially similar compared to yesterday. The patient was given a sedation holiday he was looking well however after being given a spontaneous breathing trial the patient was getting more tachypneic and tachycardic and for that reason the tidal was discontinued and the plan is to proceed with a PEG and trach insertion today. This morning, the patient is on a mechanical ventilator with a tidal volume of 500 and FiO2 of 40% and a PEEP of 5 with a rate of 20. Chest x-ray shows no major interval change. The patient is still on TPN for nutritional support. Ostomy site is unchanged and there is no functionality were output in his colostomy. No abdominal distention. He has a right upper extremity PICC line which is in place and exit site is dry clean and intact. The patient is well sedated this morning. He is afebrile and hemodynamically stable. He is on no pressors. His renal function is stable with a creatinine of 1.0. The rest of the electrodes are all within normal limits. His white cell count is at 18.3. He is receiving TPN at the rate of 65 ML's an hour. The patient's cardiac rhythm is sinus. The patient was taken to the operating room this afternoon. After arriving back to the ICU, he had a brief hypoxemia and inability to ventilate the patient appropriately. Was noted that the tracheostomy tube was given the right mainstem bronchus. Immediately the tracheostomy tube was pulled out and oxidation improved following that. Subsequent blood gases were noted. Chest x-ray was noted. Tracheostomy currently is in the distal trachea probably around 1 cm above the lisbeth. His adequate ventilation both lungs. The patient is still receiving TPN. Active site is clean. Hemodynamically stable. He is on maintenance fluid of 0.9 at the rate of 50 mL an hour and the patient is producing adequate urine output in the order of 50-80 mL an hour. Objective - Vital Signs Vital signs: Vital Signs Temp 98.4 F 10/10/18 16:00 Pulse 86 10/10/18 18:00 Resp 24 10/10/18 18:00 BP 123/71 10/10/18 16:15 Pulse Ox 97 10/10/18 18:00 Intake & Output 10/09/18 10/10/18 10/10/18 18:59 06:59 18:59 Intake Total 2165.532 3054.880 1952.947 Output Total 1960 1155 985 Balance 719.580 0898.880 967.947 Weight 131.1 kg 132.6 kg Intake: IV 2 1816 1850 Dextrose 5% in Water 1, 300 000 ml @ 60 mls/hr IV . [id number] [facility] Rx#:[id number] KVO 40 Mvi, Adult No.4 with Vit 780 780 195 K 10 ml Trace (Conc-1Ml/ Dose) 1 ml Potassium Phosphate 15 mmol Sodium Acetate 20 meq Potassium Chloride 10 meq Magnesium Sulfate gm 1 gm Calcium Gluconate 1 gm In Amino Acid 4.25%-D10w 1,000 ml @ 65 mls/hr IV .Q16H3M [facility] Rx#:[id number] Mvi, Adult No.4 with Vit 325 K 10 ml Trace (Conc-1Ml/ Dose) 1 ml Potassium Phosphate 15 mmol Sodium Acetate 20 meq Potassium Chloride 30 meq Magnesium Sulfate gm 1 gm Calcium Gluconate 1 gm In Amino Acid 4.25%-D10w 1,000 ml @ 65 mls/hr IV .[id number] [facility] Rx#:[id number] Piperacillin-Tazobactam 3 100 100 200 .375 gm In Sodium Chloride 0.9% 100 ml @ 25 mls/hr IVPB Q8HR [facility] Rx# :[id number] Potassium Chloride 20 meq 200 100 200 In Water For Injection 1 100ml.bag @ 50 mls/hr IVPB Q2H [facility] Rx#: [id number] Sodium Chloride 0.9% 1, 60 000 ml @ 20 mls/hr IV . Q24H [facility] Rx#:[id number] Sodium Chloride 0.9% 1, 350 600 500 000 ml @ 50 mls/hr IV . Q20H [facility] Rx#:[id number] metroNIDAZOLE-NS PMX 500 200 200 mg In Saline 1 100ml.bag @ 100 mls/hr IVPB Q6HR [facility] Rx#:[id number] pressure bag 42 36 30 Intake, IV Titration 93.532 1238.880 102.947 Amount Mvi, Adult No.4 with Vit 1053 K 10 ml Trace (Conc-1Ml/ Dose) 1 ml Potassium Phosphate 15 mmol Sodium Acetate 20 meq Potassium Chloride 30 meq Magnesium Sulfate gm 1 gm Calcium Gluconate 1 gm In Amino Acid 4.25%-D10w 1,000 ml @ 65 mls/hr IV .[id number] [facility] Rx#:[id number] Norepinephrine 4 mg In 2.947 Sodium Chloride 0.9% 250 ml @ 0.05 MCG/KG/MIN 25. 26 mls/hr IV .Q10H4M [facility] Rx#:[id number] Propofol 1,000 mg In 93.532 185.880 100 Empty Bag 1 bag @ Titrate IV .Q0M [facility] Rx#: [id number] Output: Drainage 30 30 Right Abdomen 30 30 Urine 1960 1125 950 Estimated Blood Loss 5 Other: Voiding Method Indwelling Catheter Indwelling Catheter Indwelling Catheter ABP, PAP, CO, CI - Last Documented Arterial Blood Pressure 117/51 - Exam Obese, comfortable and the patient is was sedated for now. The patient is intubated on a mechanical ventilator. Patient has a Bivona tracheostomy tube in place which is #8. The patient patient mechanical ventilator. He is calm and comfortable. Orotracheal tube was removed post tracheostomy tube insertion. Head exam was generally normal. There was no scleral icterus or corneal arcus. Mucous membranes were moist. Neck was supple and without jugular venous distension, thyromegaly, or carotid bruits. Carotids were easily palpable bilaterally. There was no adenopathy. The patient is a tracheostomy tube in place at this point in time. Lungs were clear to auscultation and percussion, and with normal diaphragmatic excursion. No wheezes or rales were noted. Breath sounds are diminished in lung bases bilaterally. Cardiac exam revealed the PMI to be normally situated and sized. The rhythm was regular and no extrasystoles were noted during several minutes of auscultation. The first and second heart sounds were normal and physiologic splitting of the second heart sound was noted. There were no murmurs, rubs, clicks, or gallops. Abdomen is soft and the patient has a mid abdominal incision which is dry clean and intact. There is a wound VAC in place. The colostomy site is nonfunctional. I'm unable to see the colostomy edges as the stoma itself it seems to be resected under the skin. No abdominal distention be bowel sounds are hypoactive at this point in time he is no direct tenderness. No rebound t enderness. No guarding. Active site is dry clean and intact at this point in time. Bowel sounds are hypoactive/absent. Examination of the extremities revealed easily palpable radial, femoral and pe gonzalez pulses. There was no cyanosis, clubbing or edema. Examination of the skin revealed no evidence of significant rashes, suspicious appearing nevi or other concerning lesions. Neurologically the patient is arousable after being given a sedation holiday. He is currently back on sedation with propofol running at 20 mics per KG per minute. - Labs CBC & Chem 7: 10/10/18 04:00 10/10/18 04:00 Labs: Abnormal Lab Results - Last 24 Hours (Table) 10/09/18 10/10/18 10/10/18 Range/Units 21:12 00:01 04:00 WBC (3.8-10.6) k/uL RBC (4.30-5.90) m/uL Hgb (13.0-17.5) gm/dL Hct (39.0-53.0) % RDW (11.5-15.5) % ABG pH (7.35-7.45) ABG pCO2 (35-45) mmHg ABG pO2 (83-108) mmHg ABG Total CO2 (19-24) mmol/L ABG O2 Saturation (94-97) % Chloride 108 H (98-107) mmol/L BUN 38 H (9-20) mg/dL Glucose 143 H (74-99) mg/dL POC Glucose (mg/dL) 166 H 153 H (75-99) mg/dL Calcium 7.1 L (8.4-10.2) mg/dL 10/10/18 10/10/18 10/10/18 Range/Units 04:00 04:52 05:55 WBC 18.3 H (3.8-10.6) k/uL RBC 2.69 L (4.30-5.90) m/uL Hgb 8.6 L (13.0-17.5) gm/dL Hct 26.6 L (39.0-53.0) % RDW 18.0 H (11.5-15.5) % ABG pH 7.52 H (7.35-7.45) ABG pCO2 30 L (35-45) mmHg ABG pO2 64 L (83-108) mmHg ABG Total CO2 25 H (19-24) mmol/L ABG O2 Saturation (94-97) % Chloride (98-107) mmol/L BUN (9-20) mg/dL Glucose (74-99) mg/dL POC Glucose (mg/dL) 175 H (75-99) mg/dL Calcium (8.4-10.2) mg/dL 10/10/18 10/10/18 10/10/18 Range/Units 11:40 15:16 18:17 WBC (3.8-10.6) k/uL RBC (4.30-5.90) m/uL Hgb (13.0-17.5) gm/dL Hct (39.0-53.0) % RDW (11.5-15.5) % ABG pH (7.35-7.45) ABG pCO2 34 L (35-45) mmHg ABG pO2 59 L* (83-108) mmHg ABG Total CO2 (19-24) mmol/L ABG O2 Saturation 90.3 L (94-97) % Chloride (98-107) mmol/L BUN (9-20) mg/dL Glucose (74-99) mg/dL POC Glucose (mg/dL) 196 H 156 H (75-99) mg/dL Calcium (8.4-10.2) mg/dL Assessment and Plan Plan: 1 sigmoid colectomy and diverting colostomy for a perforated diverticular abscess formation. The patient is postop day #9 2 acute hypoxic respiratory failure secondary to above. The patient has failed to wean. Weaning parameters remain poor. Due to failure to wean, the patient was given a tracheostomy tube today. When the process of proceeding with gradually wean in this patient. For now he is postop day #0. Following tracheostomy tube insertion. Chest x-ray shows adequate expansion of both lungs. The patient's blood gases was noted and the patient placed on FiO2 of 60% with a PEEP of 5. Rest of the vent settings will be kept unchanged. Repeat chest x-ray in the morning. We will gradually back off on wean off sedation as of tomorrow. 3 abdominal sepsis secondary to E. coli and pseudomonas aeruginosa. The patient is currently on accommodation Zosyn and Flagyl and there is also anaerobic gram- negative bacillus growing in the abdominal cultures. The rhythm is 4 hypotension recovered 5 proximal atrial fibrillation current rhythm is sinus 6 history of hypothyroidism 7 history of hyperlipidemia 8 history of hypertension 9 degenerative arthritis Plan The patient sedated for today and start weaning the sedation as of tomorrow morning. Continue TPN. Continue propofol for tonight. Continue same antibiotic coverage. Vent settings were noted and we'll gradually wean down the FiO2 to maintain saturation above 90%. Repeat chest x-ray in the morning. Repeat blood gases in the morning. Keep the PICC line in place. Continue TPN for the stress support. Yesterday is on the case. Abdominal wound was noted. When the VAC is in place. Active site is clean. I'm hoping that we can start enteral feeding probably by tomorrow the day after. Unfortunately bowel sounds are quite absent at this point in time. Blood sugars are under adequate control as the patient is taking Levemir insulin in addition to Avelox sliding scale Coverage. Continue Dilaudid for pain control. Continue maintenance fluids. Family is at the bedside. We'll continue to follow. This will be a gradual and probably prolonged wean . There is a critically care evaluation that was done and more than 30 minutes. Time with Patient: Greater than 30
--- NOTE | 2018-10-10 21:12 | PN ---
PROGRESS NOTE DATE OF SERVICE: 10/10/2018. REASON FOR FOLLOWUP VISIT: Perforated sigmoid diverticulitis, status post diverting colostomy and abdominal abscess. INTERVAL HISTORY: The patient is currently afebrile. Patient hemodynamically stable. The patient has been taken to the OR and is status post trach and PEG, tolerating the procedure. Currently on the vent. Mild sedation. No pressor. PHYSICAL EXAMINATION: Blood pressure 142/58 with a pulse of 95, temperature 98.4. He is 98% on 60% FiO2. General description is an elderly male lying in bed in no distress. RESPIRATORY SYSTEM: Unlabored breathing, decreased breath sounds in the base, with no wheeze. Heart S1, S2. Regular rate and rhythm. Abdomen soft. No tenderness. LABS: Hemoglobin 8.8, white count 15.3, BUN of 38, creatinine 1.03. DIAGNOSTIC IMPRESSION AND PLAN: Patient with abdominal abscess from a ruptured sigmoid diverticulitis, status post diverting colostomy, failed to be extubated, currently status post trach and PEG. The patient is currently covered with Zosyn to be continued while monitoring clinical course closely. Continue supportive care. MMODL / IJN: [id number] /
[2018-10-10] MEDS: INSULIN DETEMIR (LEVEMIR) 100 UNIT/ML SYR SQ SCH (21:52)
[2018-10-10 23:48] LABS: Glucose,Whole Blood 161 mg/dL (75-99)
[2018-10-11] MEDS: INSULIN ASPART (NovoLOG) 100 UNIT/ML VIAL SQ SCH ×5 (00:13→23:53)
[2018-10-11] MEDS: PROPOFOL 1,000 MG in EMPTY BAG 1 BAG IV SCH ×3 (00:27→07:15)
[2018-10-11] MEDS: IPRATROPIUM-ALBUTEROL 3 ML NEB INHALATION SCH ×7 (00:27→23:37)
[2018-10-11 04:33] LABS: ABG Base Excess -1.9 mmol/L; ABG HCO3 21 mmol/L (21-25); ABG Oxygen Saturation 94.5 % (94-97); ABG PCO2 30 mmHg (35-45); ABG PH 7.46 (7.35-7.45); ABG PO2 74 mmHg (83-108); Allen Test Performed? Yes
[2018-10-11 04:36] LABS: Albumin 1.9 g/dL (3.5-5.0); Calcium 7.1 mg/dL (8.4-10.2); Magnesium 2.2 mg/dL (1.6-2.3); Phosphorus 3.3 mg/dL (2.5-4.5); Potassium 3.7 mmol/L (3.5-5.1)
[2018-10-11 04:45] LABS: Ionized Calcium 4.6 mg/dL (4.5-5.3)
[2018-10-11] MEDS ORDERED: Potassium Replacement Protocol 1 EACH MISC MISCELLANE PRN (05:03)
[2018-10-11 06:18] LABS: Glucose,Whole Blood 143 mg/dL (75-99)
[2018-10-11] MEDS: SODIUM CHLORIDE 0.9% 1,000 ML IV SCH ×2 (07:02→23:20)
[2018-10-11] MEDS: PIPERACILLIN-TAZOBACTAM 3.375 GM in SODIUM CHLORIDE 0.9% 100 ML IVPB SCH ×3 (07:03→23:15)
[2018-10-11] MEDS: metroNIDAZOLE-NS PMX 500 MG in SALINE 1 100ML.BAG IVPB SCH ×4 (07:03→23:14)
[2018-10-11] MEDS: POTASSIUM CHLORIDE 10 MEQ in WATER FOR INJECTION 1 100ML.BAG IVPB SCH ×2 (07:08→09:18)
--- NOTE | 2018-10-11 08:14 | PN ---
PROGRESS NOTE Mr. Martinez is an 82-year-old male with a history of coronary artery disease, status post coronary artery bypass grafting, history of episode of atrial fibrillation in the past who remains intubated and sedated. He underwent a PEG tube and a tracheostomy placement. His urine output has been good. He has continued to be in sinus mechanism. He has underwent a sigmoid colectomy diverting colostomy on [facility] for perforated diverticular abscess. His blood pressure has been under good control. He is on no pressors. He had a prior episode of atrial fibrillation, but he is back in sinus mechanism. Hemodynamically, he is stable. His he has a VAC in place. He continues to be on the IV Lopressor as needed, in addition to his antibiotics, insulin. PHYSICAL EXAMINATION: Blood pressure 112/58 with a heart rate in the 90s. LUNGS: Clear to auscultation anteriorly. HEART: Regular rate and rhythm, S1, S2 with a systolic murmur, no diastolic murmur, no rub. ABDOMEN: Soft. Colostomy bag back in place as well as PEG tube. Bowel sounds noted. EXTREMITIES: With minimal edema. Neurologically, he is sedated. LAB DATA: Revealed a BUN and creatinine 43 and 1.06, potassium 3.7. IMPRESSION: 1. Status post diverting colostomy because of perforated diverticula. 2. History of coronary artery disease status post coronary artery bypass grafting. 3. History of paroxysmal atrial fibrillation. 4. Respiratory failure. 5. Status post trach and PEG. 6. Prior history of hyperlipidemia. 7. Abdominal sepsis. RECOMMENDATION: From the cardiac standpoint, I will stop the p.r.n. IV Lopressor. Also start him on Lopressor through the PEG tube. Continue the rest of his regimen. Follow his blood pressure and heart rate and depending on that, further recommendation will be made. MMODL / IJN: [id number] /
--- NOTE | 2018-10-11 08:20 | XR ---
EXAMINATION TYPE: XR chest 1V portable DATE OF EXAM: 10/11/2018 COMPARISON: October 10, 2018 HISTORY: SOB, Follow Up FINDINGS: Indwelling tubes and catheters are unchanged. Tracheostomy tube unchanged. There are small bilateral pleural effusions as well as pulmonary venous congestion and basilar atelec tasis. Continued follow-up advised. Stable appearance of the cardio-mediastinal structures at this time. IMPRESSION: 1. There are small bilateral pleural effusions as well as pulmonary venous congestion and basilar ate lectasis. Continued follow-up advised.
[2018-10-11] MEDS: CHLORHEXIDINE GLUCONATE 15 ML CUP MUCOUS MEM SCH ×2 (09:18→20:30)
[2018-10-11] MEDS: METOPROLOL TARTRATE 25 MG TAB PO SCH ×3 (09:19→20:30)
[2018-10-11] MEDS: PANTOPRAZOLE 40 MG/10 ML VIAL IVP SCH ×2 (09:19→20:30)
[2018-10-11 10:29] LABS: Anisocytosis Slight; HCT 25.1 % (39.0-53.0); Hypochromasia Moderate; MCH 31.4 pg (25.0-35.0); MCHC 31.9 g/dL (31.0-37.0); MCV 98.7 fL (80.0-100.0); Macrocytosis Slight; Platelet Count 312 k/uL (150-450); Poikilocytosis Slight; RBC 2.54 m/uL (4.30-5.90); RDW 17.4 % (11.5-15.5); WBC 17.9 k/uL (3.8-10.6)
[2018-10-11] MEDS: IOPAMIDOL-300 CONTRAST 30 ML VIAL (ORAL USE) PO PRN ×2 (10:59→12:10)
[2018-10-11] MEDS: HYDROmorphone 1 MG/ML 1 ML SYRINGE IVP PRN ×4 (11:09→23:59)
[2018-10-11] MEDS: FUROSEMIDE 10 MG/ML 4 ML VIAL IV SCH ×2 (11:22→20:30)
[2018-10-11] MEDS: MVI, ADULT NO.4 WITH VIT K 10 ML, TRACE (CONC-1ML/DOSE) 1 ML, POTASSIUM PHOSPHATE 15 MM... IV SCH ×16 (11:22→15:46)
--- NOTE | 2018-10-11 11:56 | P.PN ---
Subjective Progress Note Date: 10/11/18 CHIEF COMPLAINT: Abdominal pain HISTORY OF PRESENT ILLNESS: Patient is status post exploratory laparotomy, sigmoid colectomy with end colostomy, and drainage of abscess secondary to perforated diverticulitis. Patient is s/p trach and PEG tube placement. Patient remains on mechanical ventilation in the ICU. TPN infusing. Wound vac to abdominal incision. WBC 10.7. Hemoglobin 11.8. PHYSICAL EXAM: VITAL SIGNS: Reviewed. GENERAL: Well-developed. Remains on mechanical ventilation. HEENT: Trach intact without signs of bleeding or infection. No sclera icterus. Extraocular movements grossly intact. Moist buccal mucosa. Head is atraumatic, normocephalic. ABDOMEN: Wound vac to abdomen. Ostomy intact with small amount of bloody drainage. Majority of stomy appears to be ischemic. SAMY drain noted to right lower quadrant. NEUROLOGIC: Unable to assess secondary to mechanical ventilation ASSESSMENT: 1. Perforated diverticulitis, status post exploratory laparotomy, sigmoid colectomy with end colostomy, and drainage of abscess 2. Sepsis 3. Peritonitis 4. S/P trach and peg PLAN: 1. Ventilator management per Dr. Escalante 2. Continue wound vac per infectious disease 3. CT abdomen/pelvis ordered per ICU team. If CT remains stable, may begin tube feedings this afternoon. Continue TPN until tube feedings are at goal. Nurse practitioner note has been reviewed by physician. Signing provider agrees with the documented findings, assessment, and plan of care. Objective - Vital Signs Vital signs: Vital Signs Temp 100.6 F H 10/11/18 08:00 Pulse 94 10/11/18 11:30 Resp 34 H 10/11/18 11:00 BP 128/66 10/11/18 11:00 Pulse Ox 92 L 10/11/18 11:00 Intake & Output 10/10/18 10/11/18 10/11/18 18:59 06:59 18:59 Intake Total 2170.947 3286.625 2524.916 Output Total 1085 1635 495 Balance 6063.446 4639.625 2029.916 Weight 135.7 kg 135.7 kg Intake: IV 2067 2077 890 Mvi, Adult No.4 with Vit 195 K 10 ml Trace (Conc-1Ml/ Dose) 1 ml Potassium Phosphate 15 mmol Sodium Acetate 20 meq Potassium Chloride 10 meq Magnesium Sulfate gm 1 gm Calcium Gluconate 1 gm In Amino Acid 4.25%-D10w 1,000 ml @ 65 mls/hr IV .Q16H3M [facility] Rx#:[id number] Mvi, Adult No.4 with Vit 390 715 325 K 10 ml Trace (Conc-1Ml/ Dose) 1 ml Potassium Phosphate 15 mmol Sodium Acetate 20 meq Potassium Chloride 30 meq Magnesium Sulfate gm 1 gm Calcium Gluconate 1 gm In Amino Acid 4.25%-D10w 1,000 ml @ 65 mls/hr IV .[id number] [facility] Rx#:[id number] Piperacillin-Tazobactam 3 200 125 100 .375 gm In Sodium Chloride 0.9% 100 ml @ 25 mls/hr IVPB Q8HR [facility] Rx# :[id number] Potassium Chloride 10 meq 200 In Water For Injection 1 100ml.bag @ 100 mls/hr IVPB Q1H [facility] Rx#: [id number] Potassium Chloride 20 meq 200 In Water For Injection 1 100ml.bag @ 50 mls/hr IVPB Q2H [facility] Rx#: [id number] Sodium Chloride 0.9% 1, 550 1005 250 000 ml @ 50 mls/hr IV . Q20H [facility] Rx#:[id number] metroNIDAZOLE-NS PMX 500 100 mg In Saline 1 100ml.bag @ 100 mls/hr IVPB Q6HR [facility] Rx#:[id number] metroNIDAZOLE-NS PMX 500 200 mg In Saline 1 100ml.bag @ 100 mls/hr IVPB Q6HR [facility] Rx#:[id number] pressure bag 33 33 15 Intake, IV Titration 643.735 2933.625 1034.916 Amount Mvi, Adult No.4 with Vit 1053 875.333 K 10 ml Trace (Conc-1Ml/ Dose) 1 ml Potassium Phosphate 15 mmol Sodium Acetate 20 meq Potassium Chloride 30 meq Magnesium Sulfate gm 1 gm Calcium Gluconate 1 gm In Amino Acid 4.25%-D10w 1,000 ml @ 65 mls/hr IV .[id number] [facility] Rx#:[id number] Norepinephrine 4 mg In 2.947 Sodium Chloride 0.9% 250 ml @ 0.05 MCG/KG/MIN 25. 26 mls/hr IV .Q10H4M [facility] Rx#:[id number] Propofol 1,000 mg In 100 155.625 159.583 Empty Bag 1 bag @ Titrate IV .Q0M [facility] Rx#: [id number] Tube Feeding 600 Output: Drainage 30 Right Abdomen 30 Urine 1050 1635 495 Estimated Blood Loss 5 Other: Voiding Method Indwelling Catheter Indwelling Catheter ABP, PAP, CO, CI - Last Documented Arterial Blood Pressure 117/58 - Labs CBC & Chem 7: 10/11/18 10:16 10/11/18 04:10 Labs: Abnormal Lab Results - Last 24 Hours (Table) 10/10/18 10/10/18 10/10/18 Range/Units 15:16 18:17 23:46 WBC (3.8-10.6) k/uL RBC (4.30-5.90) m/uL Hgb (13.0-17.5) gm/dL Hct (39.0-53.0) % RDW (11.5-15.5) % ABG pH (7.35-7.45) ABG pCO2 34 L (35-45) mmHg ABG pO2 59 L* (83-108) mmHg ABG O2 Saturation 90.3 L (94-97) % Chloride (98-107) mmol/L BUN (9-20) mg/dL Glucose (74-99) mg/dL POC Glucose (mg/dL) 156 H 161 H (75-99) mg/dL Calcium (8.4-10.2) mg/dL Albumin (3.5-5.0) g/dL 10/11/18 10/11/18 10/11/18 Range/Units 04:10 04:25 05:57 WBC (3.8-10.6) k/uL RBC (4.30-5.90) m/uL Hgb (13.0-17.5) gm/dL Hct (39.0-53.0) % RDW (11.5-15.5) % ABG pH 7.46 H (7.35-7.45) ABG pCO2 30 L (35-45) mmHg ABG pO2 74 L (83-108) mmHg ABG O2 Saturation (94-97) % Chloride 112 H (98-107) mmol/L BUN 43 H (9-20) mg/dL Glucose 151 H (74-99) mg/dL POC Glucose (mg/dL) 143 H (75-99) mg/dL Calcium 7.1 L (8.4-10.2) mg/dL Albumin 1.9 L (3.5-5.0) g/dL 10/11/18 Range/Units 10:16 WBC 17.9 H (3.8-10.6) k/uL RBC 2.54 L (4.30-5.90) m/uL Hgb 8.0 L (13.0-17.5) gm/dL Hct 25.1 L (39.0-53.0) % RDW 17.4 H (11.5-15.5) % ABG pH (7.35-7.45) ABG pCO2 (35-45) mmHg ABG pO2 (83-108) mmHg ABG O2 Saturation (94-97) % Chloride (98-107) mmol/L BUN (9-20) mg/dL Glucose (74-99) mg/dL POC Glucose (mg/dL) (75-99) mg/dL Calcium (8.4-10.2) mg/dL Albumin (3.5-5.0) g/dL
[2018-10-11 12:58] LABS: Glucose,Whole Blood 188 mg/dL (75-99)
--- NOTE | 2018-10-11 13:10 | P.PN ---
Subjective patient is intubated and sedated. He had sigmoid colectomy with a drain placement and partial closure of the incision for a perforated acute divert iculitis. He has a wound VAC in place as well. Not able to obtain review of systems secondary to the patient's state 10/10/2018 Patient intubated and sedated. Patient will probably have a trach and PEG as he failed weaning trial several times 10/11/2018 Patient got a trach and PEG yesterday Still sedated Objective - Vital Signs Vital signs: Vital Signs Temp 99.8 F H 10/11/18 12:00 Pulse 92 10/11/18 12:00 Resp 30 H 10/11/18 12:00 BP 108/65 10/11/18 12:00 Pulse Ox 93 L 10/11/18 12:00 Intake & Output 10/10/18 10/11/18 10/11/18 18:59 06:59 18:59 Intake Total 2170.947 3286.625 3242.916 Output Total 1085 1635 845 Balance 4353.588 3445.625 2397.916 Weight 135.7 kg 135.7 [place]: [place] [address] 1008 Mvi, Adult No.4 with Vit 195 K 10 ml Trace (Conc-1Ml/ Dose) 1 ml Potassium Phosphate 15 mmol Sodium Acetate 20 meq Potassium Chloride 10 meq Magnesium Sulfate gm 1 gm Calcium Gluconate 1 gm In Amino Acid 4.25%-D10w 1,000 ml @ 65 mls/hr IV .Q16H3M [facility] Rx#:[id number] Mvi, Adult No.4 with Vit 390 715 390 K 10 ml Trace (Conc-1Ml/ Dose) 1 ml Potassium Phosphate 15 mmol Sodium Acetate 20 meq Potassium Chloride 30 meq Magnesium Sulfate gm 1 gm Calcium Gluconate 1 gm In Amino Acid 4.25%-D10w 1,000 ml @ 65 mls/hr IV .[id number] [facility] Rx#:[id number] Piperacillin-Tazobactam 3 200 125 100 .375 gm In Sodium Chloride 0.9% 100 ml @ 25 mls/hr IVPB Q8HR [facility] Rx# :[id number] Potassium Chloride 10 meq 200 In Water For Injection 1 100ml.bag @ 100 mls/hr IVPB Q1H [facility] Rx#: [id number] Potassium Chloride 20 meq 200 In Water For Injection 1 100ml.bag @ 50 mls/hr IVPB Q2H [facility] Rx#: [id number] Sodium Chloride 0.9% 1, 550 1005 300 000 ml @ 50 mls/hr IV . Q20H [facility] Rx#:[id number] metroNIDAZOLE-NS PMX 500 100 mg In Saline 1 100ml.bag @ 100 mls/hr IVPB Q6HR [facility] Rx#:[id number] metroNIDAZOLE-NS PMX 500 200 mg In Saline 1 100ml.bag @ 100 mls/hr IVPB Q6HR [facility] Rx#:[id number] pressure bag 33 33 18 Intake, IV Titration 752.403 2949.625 1034.916 Amount Mvi, Adult No.4 with Vit 1053 875.333 K 10 ml Trace (Conc-1Ml/ Dose) 1 ml Potassium Phosphate 15 mmol Sodium Acetate 20 meq Potassium Chloride 30 meq Magnesium Sulfate gm 1 gm Calcium Gluconate 1 gm In Amino Acid 4.25%-D10w 1,000 ml @ 65 mls/hr IV .[id number] [facility] Rx#:[id number] Norepinephrine 4 mg In 2.947 Sodium Chloride 0.9% 250 ml @ 0.05 MCG/KG/MIN 25. 26 mls/hr IV .Q10H4M [facility] Rx#:[id number] Propofol 1,000 mg In 100 155.625 159.583 Empty Bag 1 bag @ Titrate IV .Q0M [facility] Rx#: [id number] Tube Feeding 1200 Output: Drainage 30 Right Abdomen 30 Urine 1050 1635 845 Estimated Blood Loss 5 Other: Voiding Method Indwelling Catheter Indwelling Catheter ABP, PAP, CO, CI - Last Documented Arterial Blood Pressure 115/49 - Exam On exam, patient intubated and sedated HEENT: Conjunctivae normal. eyes normal. NECK: No JVD. No thyroid enlargement. No LNs CARDIOVASCULAR: S1-S2 positive RESPIRATION: Breath sounds diminished in the bases. No rhonchi or crackles. No bronchial breathing. Patient has a trach now ABDOMEN: soft bowel sounds present. Patient has left-sided colostomy with dressing in place. He also had a wound VAC and drained.. Patient has a PEG tube now LEGS: No edema. no swelling NERVOUS SYSTEM: not able to assess the neuro system as the patient is intubated and sedated - Labs CBC & Chem 7: 10/11/18 10:16 10/11/18 04:10 Labs: Abnormal Lab Results - Last 24 Hours (Table) 10/10/18 10/10/18 10/10/18 Range/Units 15:16 18:17 23:46 WBC (3.8-10.6) k/uL RBC (4.30-5.90) m/uL Hgb (13.0-17.5) gm/dL Hct (39.0-53.0) % RDW (11.5-15.5) % ABG pH (7.35-7.45) ABG pCO2 34 L (35-45) mmHg ABG pO2 59 L* (83-108) mmHg ABG O2 Saturation 90.3 L (94-97) % Chloride (98-107) mmol/L BUN (9-20) mg/dL Glucose (74-99) mg/dL POC Glucose (mg/dL) 156 H 161 H (75-99) mg/dL Calcium (8.4-10.2) mg/dL Albumin (3.5-5.0) g/dL 10/11/18 10/11/18 10/11/18 Range/Units 04:10 04:25 05:57 WBC (3.8-10.6) k/uL RBC (4.30-5.90) m/uL Hgb (13.0-17.5) gm/dL Hct (39.0-53.0) % RDW (11.5-15.5) % ABG pH 7.46 H (7.35-7.45) ABG pCO2 30 L (35-45) mmHg ABG pO2 74 L (83-108) mmHg ABG O2 Saturation (94-97) % Chloride 112 H (98-107) mmol/L BUN 43 H (9-20) mg/dL Glucose 151 H (74-99) mg/dL POC Glucose (mg/dL) 143 H (75-99) mg/dL Calcium 7.1 L (8.4-10.2) mg/dL Albumin 1.9 L (3.5-5.0) g/dL 10/11/18 10/11/18 Range/Units 10:16 11:50 WBC 17.9 H (3.8-10.6) k/uL RBC 2.54 L (4.30-5.90) m/uL Hgb 8.0 L (13.0-17.5) gm/dL Hct 25.1 L (39.0-53.0) % RDW 17.4 H (11.5-15.5) % ABG pH (7.35-7.45) ABG pCO2 (35-45) mmHg ABG pO2 (83-108) mmHg ABG O2 Saturation (94-97) % Chloride (98-107) mmol/L BUN (9-20) mg/dL Glucose (74-99) mg/dL POC Glucose (mg/dL) 188 H (75-99) mg/dL Calcium (8.4-10.2) mg/dL Albumin (3.5-5.0) g/dL Assessment and Plan Assessment: - acute respiratory failure status post intubation - Acute perforated enterocolitis status post sigmoid colectomy, with resultant colostomy and SAMY drain. - Septic shock with hypertension status post pressor support - AK I - CAD - Hyperlipidemia - Hypertension - Proximal atrial flutter on Coumadin - Hypothyroidism Plan 10/09/2018 - Patient intubated. Appreciated ICU recommendations - General surgery on board as well. - infectious disease on board for antibiotic recommendations - Nephrology consult for AK I - continue current medical care - We'll follow the patient 10/10/2018 - Patient will probably get trach and PEG this afternoon - Antibiotic recommendations as per infectious disease - We'll continue rest of the medical care - Follow up on the patient 10/11/2018 - CT abdomen and pelvis ordered. If normal or shows improvement patient will be started on tube feedings depending upon surgery recommendations - Continue ICU care and management - We'll follow the patient
--- NOTE | 2018-10-11 13:13 | CT ---
EXAMINATION TYPE: CT abdomen pelvis w con DATE OF EXAM: 10/11/2018 COMPARISON: HISTORY: inactive stoma CT DLP: 3358.4 mGycm CONTRAST: CT scan of the abdomen and pelvis is performed with Oral Contrast and with IV Contrast, patient injec sharonda with 100 mL of Isovue 300. FINDINGS: LUNG BASES-: Basilar atelectasis and/or infiltrates with small pleural effusions. LIVER/GB: No calcified gallstones. No space occupying hepatic lesion. Biliary tree is of normal ca liber. PANCREAS: No inflammation. No distinct mass. SPLEEN: No splenic enlargement. No lesion seen. ADRENALS: No nodule. No thickening. KIDNEYS/BLADDER: No hydronephrosis. No nephrolithiasis. Stable right renal cyst. Urinary bladder gr ossly unremarkable. BOWEL: Gastrostomy tube is in place. Right lower quadrant drainage catheter is noted. There is eviden ce for ascites mild in degree within the abdomen and pelvis. Interval left lower quadrant colostomy. Colostomy segment appears to demonstrate wall thickening and may reflect colitis. Correlate clinicall y. Contrast is seen within the small bowel distally with contrast noted within the rectosigmoid regio n and anastomotic site. No evidence for free air or abscess at this time. GENITAL ORGANS: No gross abnormality. LYMPH NODES: No greater than 1cm abdominal or pelvic lymph nodes are appreciated. AORTA: Nonaneurysmal atheromatous change of the abdominal aorta. OSSEOUS STRUCTURES: No significant abnormality is seen. OTHER: Fat-containing umbilical hernia. Degenerative changes lumbar spine. IMPRESSION: 1. Interval left lower quadrant colostomy. Colostomy segment demonstrates wall thickening which may b e related to nonspecific colitis. Correlate clinically. 2. Fluid is seen within the abdomen and interloop regions. 3. No evidence for abscess or free air. 4. Basilar atelectasis and pleural effusions with mild cardiomegaly. 5. Right lower quadrant drainage catheter as well as a gastrostomy tube.
--- NOTE | 2018-10-11 15:21 | P.PN ---
Subjective Progress Note Date: 10/11/18 On today's evaluation of 72,019 I saw this patient preoperatively. The patient was in a state that is essentially similar compared to yesterday. The patient was given a sedation holiday he was looking well however after being given a spontaneous breathing trial the patient was getting more tachypneic and tachycardic and for that reason the tidal was discontinued and the plan is to proceed with a PEG and trach insertion today. This morning, the patient is on a mechanical ventilator with a tidal volume of 500 and FiO2 of 40% and a PEEP of 5 with a rate of 20. Chest x-ray shows no major interval change. The patient is still on TPN for nutritional support. Ostomy site is unchanged and there is no functionality were output in his colostomy. No abdominal distention. He has a right upper extremity PICC line which is in place and exit site is dry clean and intact. The patient is well sedated this morning. He is afebrile and hemodynamically stable. He is on no pressors. His renal function is stable with a creatinine of 1.0. The rest of the electrodes are all within normal limits. His white cell count is at 18.3. He is receiving TPN at the rate of 65 ML's an hour. The patient's cardiac rhythm is sinus. The patient was taken to the operating room this afternoon. After arriving back to the ICU, he had a brief hypoxemia and inability to ventilate the patient appropriately. Was noted that the tracheostomy tube was given the right mainstem bronchus. Immediately the tracheostomy tube was pulled out and oxidation improved following that. Subsequent blood gases were noted. Chest x-ray was noted. Tracheostomy currently is in the distal trachea probably around 1 cm above the lisbeth. His adequate ventilation both lungs. The patient is still receiving TPN. Active site is clean. Hemodynamically stable. He is on maintenance fluid of 0.9 at the rate of 50 mL an hour and the patient is producing adequate urine output in the order of 50-80 mL an hour. On 10/11/2018 I'm seeing this patient in the intensive care unit. The patient is post PEG and trach insertion yesterday without any significant complication. This morning it is being gradually weaned off the sedation and the patient is being weaned off the propofol for now. He is opening his eyes however he is not following any commands at this point in time. Is quite successful a mechanical ventilator. The patient currently is on assist control mode of ventilation. Current vent setting includes a tidal volume of 500 with an FiO2 of 50% and a PEEP of 5 and the rate of 20. I switched him to a VC plus mode and subsequently to the tidal volume to 659 that the patient had a high minute ventilation and he was taken very high tidal volumes along with high respiratory rates. This may the patient much more comfortable dropped his respiratory rate and he became more success with the mechanical ventilator. The chest x-ray from today shows some increased vascular marking and small effusions. I was extubated within about his inability to have any bowel movements and the functionality of the colostomy was of a question and the patient has been on TPN since his surgery. For all this reasons, I discussed the case with the general surgeon and would proceed with a CAT scan of the abdomen and pelvis with oral and IV contrast. The CAT scan showed gastrostomy tube in place, right lower quadrant drainage catheter is in place, and there is evidence of ascites and mild degree of fluid within the abdomen and pelvis. There was an incidental left lower quadrant colostomy. The colostomy segment appeared to be thickened. Contrast is seen within the small bowel distally with contrast noted within the rectosigmoid region and the anastomotic site. No evidence of any free air or abscess at this point in time. The lung bases showed atelectatic changes and small pleural effusions. The patient is still on TPN for nutritional support. The patient is on Zosyn. The patient is on Flagyl. The patient is on DuoNeb the right treatment [id number]. It was noted that the patient is having increased swelling in the upper and lower extremities and the patient will be started on Lasix 40 mg every 12 hours. This would optimize his fluid balance. Objective - Vital Signs Vital signs: Vital Signs Temp 99.8 F H 10/11/18 12:00 Pulse 100 10/11/18 15:00 Resp 28 H 10/11/18 15:00 BP 134/83 10/11/18 15:00 Pulse Ox 95 10/11/18 15:00 Intake & Output 10/10/18 10/11/18 10/11/18 18:59 06:59 18:59 Intake Total 2170.947 3286.625 3242.916 Output Total 1085 1635 845 Balance 3758.180 0392.625 2397.916 Weight 135.7 kg 135.7 kg Intake: IV 8 2078 1008 Mvi, Adult No.4 with Vit 195 K 10 ml Trace (Conc-1Ml/ Dose) 1 ml Potassium Phosphate 15 mmol Sodium Acetate 20 meq Potassium Chloride 10 meq Magnesium Sulfate gm 1 gm Calcium Gluconate 1 gm In Amino Acid 4.25%-D10w 1,000 ml @ 65 mls/hr IV .Q16H3M [facility] Rx#:[id number] Mvi, Adult No.4 with Vit 390 715 390 K 10 ml Trace (Conc-1Ml/ Dose) 1 ml Potassium Phosphate 15 mmol Sodium Acetate 20 meq Potassium Chloride 30 meq Magnesium Sulfate gm 1 gm Calcium Gluconate 1 gm In Amino Acid 4.25%-D10w 1,000 ml @ 65 mls/hr IV .[id number] [facility] Rx#:[id number] Piperacillin-Tazobactam 3 200 125 100 .375 gm In Sodium Chloride 0.9% 100 ml @ 25 mls/hr IVPB Q8HR [facility] Rx# :[id number] Potassium Chloride 10 meq 200 In Water For Injection 1 100ml.bag @ 100 mls/hr IVPB Q1H [facility] Rx#: [id number] Potassium Chloride 20 meq 200 In Water For Injection 1 100ml.bag @ 50 mls/hr IVPB Q2H [facility] Rx#: [id number] Sodium Chloride 0.9% 1, 550 1005 300 000 ml @ 50 mls/hr IV . Q20H [facility] Rx#:[id number] metroNIDAZOLE-NS PMX 500 100 mg In Saline 1 100ml.bag @ 100 mls/hr IVPB Q6HR [facility] Rx#:[id number] metroNIDAZOLE-NS PMX 500 200 mg In Saline 1 100ml.bag @ 100 mls/hr IVPB Q6HR [facility] Rx#:[id number] pressure bag 33 33 18 Intake, IV Titration 412.119 2230.625 1034.916 Amount Mvi, Adult No.4 with Vit 1053 875.333 K 10 ml Trace (Conc-1Ml/ Dose) 1 ml Potassium Phosphate 15 mmol Sodium Acetate 20 meq Potassium Chloride 30 meq Magnesium Sulfate gm 1 gm Calcium Gluconate 1 gm In Amino Acid 4.25%-D10w 1,000 ml @ 65 mls/hr IV .[id number] [facility] Rx#:[id number] Norepinephrine 4 mg In 2.947 Sodium Chloride 0.9% 250 ml @ 0.05 MCG/KG/MIN 25. 26 mls/hr IV .Q10H4M [facility] Rx#:[id number] Propofol 1,000 mg In 100 155.625 159.583 Empty Bag 1 bag @ Titrate IV .Q0M [facility] Rx#: [id number] Tube Feeding 1200 Output: Drainage 30 Right Abdomen 30 Urine 1050 1635 845 Estimated Blood Loss 5 Other: Voiding Method Indwelling Catheter Indwelling Catheter ABP, PAP, CO, CI - Last Documented Arterial Blood Pressure 120/43 - Exam Obese, comfortable and the patient is was sedated for now. The patient is intubated on a mechanical ventilator. Patient has a Bivona tracheostomy tube in place which is #8. The patient patient mechanical ventilator. He is calm and comfortable. The patient is having some limited amount of leak around his tracheostomy tube however this is not quite significant and is not affecting his ventilation. Orotracheal tube was removed post tracheostomy tube insertion. Head exam was generally normal. There was no scleral icterus or corneal arcus. Mucous membranes were moist. Neck was supple and without jugular venous distension, thyromegaly, or carotid bruits. Carotids were easily palpable bilaterally. There was no adenopathy. The patient is a tracheostomy tube in place at this point in time. Lungs were clear to auscultation and percussion, and with normal diaphragmatic excursion. No wheezes or rales were noted. Breath sounds are diminished in lung bases bilaterally. Cardiac exam revealed the PMI to be normally situated and sized. The rhythm was regular and no extrasystoles were noted during several minutes of auscultation. The first and second heart sounds were normal and physiologic splitting of the second heart sound was noted. There were no murmurs, rubs, clicks, or gallops. Abdomen is soft and the patient has a mid abdominal incision which is dry clean and intact. There is a wound VAC in place. The colostomy site is nonfunctional. I'm unable to see the colostomy edges as the stoma itself it seems to be resected under the skin. No abdominal distention be bowel sounds are hypoactive at this point in time he is no direct tenderness. No rebound tenderness. No guarding. Active site is dry clean and intact at this point in time. Bowel sounds are hypoactive/absent. Examination of the extremities revealed easily palpable radial, femoral and pedal pulses. There was no cyanosis, clubbing or edema. Examination of the skin revealed no evidence of significant rashes, suspicious appearing nevi or other concerning lesions. Neurologically the patient is being given a sedation holiday - Labs CBC & Chem 7: 10/11/18 10:16 10/11/18 04:10 Labs: Abnormal Lab Results - Last 24 Hours (Table) 10/10/18 10/10/18 10/10/18 Range/Units 15:16 18:17 23:46 WBC (3.8-10.6) k/uL RBC (4.30-5.90) m/uL Hgb (13.0-17.5) gm/dL Hct (39.0-53.0) % RDW (11.5-15.5) % ABG pH (7.35-7.45) ABG pCO2 34 L (35-45) mmHg ABG pO2 59 L* (83-108) mmHg ABG O2 Saturation 90.3 L (94-97) % Chloride (98-107) mmol/L BUN (9-20) mg/dL Glucose (74-99) mg/dL POC Glucose (mg/dL) 156 H 161 H (75-99) mg/dL Calcium (8.4-10.2) mg/dL Albumin (3.5-5.0) g/dL 10/11/18 10/11/18 10/11/18 Range/Units 04:10 04:25 05:57 WBC (3.8-10.6) k/uL RBC (4.30-5.90) m/uL Hgb (13.0-17.5) gm/dL Hct (39.0-53.0) % RDW (11.5-15.5) % ABG pH 7.46 H (7.35-7.45) ABG pCO2 30 L (35-45) mmHg ABG pO2 74 L (83-108) mmHg ABG O2 Saturation (94-97) % Chloride 112 H (98-107) mmol/L BUN 43 H (9-20) mg/dL Glucose 151 H (74-99) mg/dL POC Glucose (mg/dL) 143 H (75-99) mg/dL Calcium 7.1 L (8.4-10.2) mg/dL Albumin 1.9 L (3.5-5.0) g/dL 10/11/18 10/11/18 Range/Units 10:16 11:50 WBC 17.9 H (3.8-10.6) k/uL RBC 2.54 L (4.30-5.90) m/uL Hgb 8.0 L (13.0-17.5) gm/dL Hct 25.1 L (39.0-53.0) % RDW 17.4 H (11.5-15.5) % ABG pH (7.35-7.45) ABG pCO2 (35-45) mmHg ABG pO2 (83-108) mmHg ABG O2 Saturation (94-97) % Chloride (98-107) mmol/L BUN (9-20) mg/dL Glucose (74-99) mg/dL POC Glucose (mg/dL) 188 H (75-99) mg/dL Calcium (8.4-10.2) mg/dL Albumin (3.5-5.0) g/dL Assessment and Plan Plan: 1 sigmoid colectomy and diverting colostomy for a perforated diverticular abscess formation. The patient is postop day #10 2 acute hypoxic respiratory failure secondary to above. The patient has failed to wean. Weaning parameters remain poor. Due to failure to wean, the patient was given a tracheostomy tube today. When the process of proceeding with gradually wean in this patient. For now he is postop day #1. Following tracheostomy tube insertion. Chest x-ray shows adequate expansion of both lung s. 3 abdominal sepsis secondary to E. coli and pseudomonas aeruginosa. The patient is currently on accommodation Zosyn and Flagyl and there is also anaerobic gram- negative bacillus growing in the abdominal cultures. The patient underwent a follow-up CAT scan of the abdomen and pelvis with oral and IV contrast and that is no evidence of any abscess. There may be some limited ileus however the contrast passed through the large bowel and anastomotic site and there was no evidence of any abscess formation. The patient is on TPN. We are considering enteral feeding for nutritional support. 4 hypotension recovered 5 proximal atrial fibrillation current rhythm is sinus 6 history of hypothyroidism 7 history of hyperlipidemia 8 history of hypertension 9 degenerative arthritis Plan Stop sedation. Necessary ventilator changes were done. Start enteral feeding with vital high protein at 10 mL an hour and gradually advance as tolerated. I intend to keep it at a lower dose for the next 34 hours at least he had continue TPN for now. Keep the patient off sedation. Monitor hemodynamics. Initiate Lasix. Optimize volume balance. We'll continue to follow. Condition is still critical. Further recommendations are to follow based on his progress. CAT scan of the abdomen and pelvis was noted. Discussed was done with general surgery. We'll continue to follow and make further recommendations based on his progress. This a critically care evaluation that was done and more than 30 minutes. Time with Patient: Greater than 30
[2018-10-11 18:00] LABS: Glucose,Whole Blood 162 mg/dL (75-99)
--- NOTE | 2018-10-11 18:26 | PN ---
PROGRESS NOTE DATE OF SERVICE: 10/11/2018. REASON FOR FOLLOW UP: Abdominal abscess and ruptured sigmoid diverticulitis. INTERVAL HISTORY: The patient did have a fever of 100.6 early this morning. Repeat is 100.3. The patient is hemodynamically stable, though white count 17.9 compared to 18.3 yesterday. The patient did have a CT abdominal pelvis completed. Denies any evidence of any abscess. The patient did respond to his name but unable to provide any history. Currently intubated through the trach with PEG done yesterday. PHYSICAL EXAMINATION: Blood pressure is 114/74 with a pulse of 103, temperature 100.3. He is 90% on 50% FiO2. General description is an elderly male lying in bed in no distress. Respiratory system unlabored breathing with decreased breath sounds at the bases. No wheeze. Heart S1, S2. Regular rate and rhythm. ABDOMEN: Soft, mildly distended. No guarding or rigidity. EXTREMITIES: No edema of the feet. LABS: Hemoglobin is 8 with white count 17.9, BUN of 43, creatinine 1.06. DIAGNOSTIC IMPRESSION AND PLAN: Patient admitted with abdominal abscess from ruptured sigmoid diverticulitis. Abdominal cultures have been positive for Pseudomonas and E coli along with anaerobic gram-negative. The patient now with new fever in this patient who is status post trach and PEG yesterday could be post surgery. We will obtain blood cultures. CT was negative for any abscess. Continue with Zosyn. Monitor his clinical course closely. Continue supportive care. MMODL / IJN: [id number] /
[2018-10-11] MEDS: INSULIN DETEMIR (LEVEMIR) 100 UNIT/ML SYR SQ SCH (20:49)
[2018-10-12] LABS: Glucose,Whole Blood 150 mg/dL (75-99)
[2018-10-12] MEDS: IPRATROPIUM-ALBUTEROL 3 ML NEB INHALATION SCH ×6 (03:42→23:52)
[2018-10-12] MEDS: HYDROmorphone 1 MG/ML 1 ML SYRINGE IVP PRN ×4 (03:54→22:12)
[2018-10-12 04:39] LABS: Anisocytosis Slight; HCT 25.3 % (39.0-53.0); Hypochromasia Moderate; MCH 30.9 pg (25.0-35.0); MCHC 31.6 g/dL (31.0-37.0); Macrocytosis Slight; Mean Platelet Volume 9.4; Platelet Count 331 k/uL (150-450); Poikilocytosis Moderate; RBC 2.58 m/uL (4.30-5.90); RDW 17.6 % (11.5-15.5); WBC 16.3 k/uL (3.8-10.6)
[2018-10-12 04:47] LABS: Calcium 7.2 mg/dL (8.4-10.2); Magnesium 2.1 mg/dL (1.6-2.3); Phosphorus 3.4 mg/dL (2.5-4.5); Potassium 3.4 mmol/L (3.5-5.1)
[2018-10-12 05:20] LABS: ABG Base Excess -3.8 mmol/L; ABG HCO3 19 mmol/L (21-25); ABG Oxygen Saturation 95.1 % (94-97); ABG PCO2 23 mmHg (35-45); ABG PH 7.52 (7.35-7.45); ABG PO2 70 mmHg (83-108); ABG TCO2 20 mmol/L (19-24); Allen Test Performed? Yes
[2018-10-12 05:47] LABS: Glucose,Whole Blood 157 mg/dL (75-99)
[2018-10-12] MEDS ORDERED: Potassium Replacement Protocol 1 EACH MISC MISCELLANE PRN (05:55)
[2018-10-12] MEDS: metroNIDAZOLE-NS PMX 500 MG in SALINE 1 100ML.BAG IVPB SCH ×3 (06:22→18:48)
[2018-10-12] MEDS: POTASSIUM CHLORIDE 20 MEQ in WATER FOR INJECTION 1 100ML.BAG IVPB SCH ×2 (06:23→08:47)
[2018-10-12] MEDS: INSULIN ASPART (NovoLOG) 100 UNIT/ML VIAL SQ SCH ×3 (06:23→18:41)
--- NOTE | 2018-10-12 07:45 | XR ---
EXAMINATION TYPE: XR chest 1V portable DATE OF EXAM: 10/12/2018 COMPARISON: 10/11/2018 HISTORY: Shortness of breath TECHNIQUE: Single frontal view of the chest is obtained. FINDINGS: Indwelling tubes and catheters are unchanged. Tracheostomy tube unchanged. There are small bilateral pleural effusions as well as pulmonary venous congestion and basilar atelectasis. Continue d follow-up advised. Stable appearance of the cardio-mediastinal structures at this time. IMPRESSION: Stable x-ray correlate for CHF versus pneumonia.
[2018-10-12] MEDS: PANTOPRAZOLE 40 MG/10 ML VIAL IVP SCH ×2 (08:48→21:56)
[2018-10-12] MEDS: METOPROLOL TARTRATE 25 MG TAB PO SCH ×3 (08:48→21:56)
[2018-10-12] MEDS: CHLORHEXIDINE GLUCONATE 15 ML CUP MUCOUS MEM SCH ×2 (08:48→21:56)
[2018-10-12] MEDS: PIPERACILLIN-TAZOBACTAM 3.375 GM in SODIUM CHLORIDE 0.9% 100 ML IVPB SCH ×2 (08:48→16:46)
[2018-10-12] MEDS: FUROSEMIDE 10 MG/ML 4 ML VIAL IV SCH ×2 (08:48→21:57)
[2018-10-12] MEDS: ASPIRIN 81 MG PO SCH (08:48)
--- NOTE | 2018-10-12 08:52 | PN ---
PROGRESS NOTE HISTORY: Mr. Martinez is an 82-year-old male who if presented with perforated viscus, underwent surgery. He remains intubated. He has a trach and PEG. He has a history of coronary bypass grafting, prior history of atrial fibrillation, atrial flutter. He continued be in sinus mechanism. More awake, following commands. Hemodynamically stable. He has had no further episode of atrial fibrillation. His urine output is stable. He had minimal stool out of the colostomy. He has no evidence of malignant arrhythmia. He continues to be at this time on Lasix 40 mg IV every 12 hours, metoprolol tartrate 25 mg twice a day. PHYSICAL EXAMINATION: Blood pressure 122/60 with a heart rate in the 100s. LUNGS: Clear anteriorly. HEART: Regular rate and rhythm. S1-S2, no S3. Systolic ejection murmur. No diastolic murmur no rub. ABDOMEN: Soft, nontender. EXTREMITIES: Trace edema. LAB DATA: Lab data revealed BUN and creatinine 46 and 1.36, potassium 3.4 hemoglobin 8, white blood cell of 16.3, improving. Chest x-ray is stable. IMPRESSION: 1. Status post diverting colostomy for perforated diverticula. 2. History of coronary artery disease status post coronary artery bypass grafting. 3. Paroxysmal atrial fibrillation. 4. Respiratory failure. 5. Status post tracheostomy and PEG tube placement. 6. History of hyperlipidemia. 7. Renal failure. RECOMMENDATIONS: I will increase the dose of his beta abelardo. I will start him on aspirin once a day. Continue the rest of his medical regimen. We may be able to decrease the dose of his diuretic. Follow his renal function and depending on his progress, further recommendations will be made. MMODL / IJN: [id number] /
[2018-10-12] MEDS: DEXTROSE 5% IN WATER 1,000 ML with SODIUM BICARB (1 MEQ/ML) 150 ML IV SCH (10:42)
--- NOTE | 2018-10-12 11:50 | P.PN ---
<Leonor Lindsay Sydnee - Last Filed: 10/12/18 13:13> Subjective Progress Note Date: 10/12/18 CHIEF COMPLAINT: Abdominal pain HISTORY OF PRESENT ILLNESS: Patient is status post exploratory laparotomy, sigmoid colectomy with end colostomy, and drainage of abscess secondary to perforated diverticulitis. Patient is also s/p trach and PEG tube placement. Patient remains on mechanical ventilation in the ICU. TPN infusing. Wound vac to abdominal incision. patient is off sedation. Patient is awake and able to follow commands. Tube feeding have been started at 10 mL an hour. (Goal 48cc) Patient is tolerating well. Ostomy functioning with small amount of stool noted. WBC 16.3. Hemoglobin remains stable at 8.0. Patient febrile this morning with a temperature of 100.4. Mildly tachycardic. PHYSICAL EXAM: VITAL SIGNS: Reviewed GENERAL: Well-developed in no acute distress-remains on mechanical ventilation. HEENT: No sclera icterus. Extraocular movements grossly intact. Moist buccal mucosa. Head is atraumatic, normocephalic. NECK: Trach intact without signs of bleeding or infection. Supple without lymphadenopathy. CHEST: Non-labored respirations and equal bilateral excursions. remains on mechanical ventilation CARDIOVASCULAR: Regular rate with regular rhythm. Palpable 2+ radial pulses. ABDOMEN: Wound vac to abdomen. Ostomy intact with small amount of liquid stool. SAMY drain noted to right lower quadrant. MUSCULOSKELETAL: No clubbing, cyanosis. +2 edema to bilateral extremities, improving NEUROLOGIC: No focal or lateralizing signs. Cranial nerves II through XII grossly intact. PSYCH: Patient awake and alert. Follows commands. SKIN: Well perfused. Good skin turgor. ASSESSMENT: 1. Perforated diverticulitis, status post exploratory laparotomy, sigmoid colectomy with end colostomy, and drainage of abscess 2. Sepsis, abdominal cultures positive for E. coli and pseudomonas aeruginosa 3. Peritonitis 4. Acute hypoxic respiratory failure, S/P trach and peg 5. Paroxysmal atrial fibrillation 6. Hypokalemia PLAN: 1. Ventilator management per Dr. Escalante 2. Continue wound vac and antibiotics per infectious disease 3. Advance tube feedings slowly. Advance 10cc every 8 hours. 4. May wean off TPN today 5. Beta abelardo increased per cardiology 6. Replace potassium per protocol Nurse practitioner note has been reviewed by physician. Signing provider agrees with the documented findings, assessment, and plan of care. Objective - Vital Signs Vital signs: Vital Signs Temp 100.4 F H 10/12/18 08:00 Pulse 96 10/12/18 11:00 Resp 24 10/12/18 11:00 BP 110/69 10/12/18 11:00 Pulse Ox 93 L 10/12/18 11:00 Intake & Output 10/11/18 10/12/18 10/12/18 18:59 06:59 18:59 Intake Total 4260.916 1391 1473 Output Total 2860 1530 885 Balance 1400.916 -139 588 Weight 135.7 kg Intake: IV 1911 1166 815 Dextrose 5% in Water 1, 150 000 ml @ 75 mls/hr IV . [id number] [facility] with Sodium Bicarb (1 Meq/ml) 150 ml Rx#:[id number] Mvi, Adult No.4 with Vit 675 330 150 K 10 ml Trace (Conc-1Ml/ Dose) 1 ml Potassium Phosphate 15 mmol Sodium Acetate 20 meq Potassium Chloride 30 meq Magnesium Sulfate gm 1 gm Calcium Gluconate 1 gm In Amino Acid 4.25%-D10w 1,000 ml @ 65 mls/hr IV .[id number] [facility] Rx#:[id number] Piperacillin-Tazobactam 3 200 100 100 .375 gm In Sodium Chloride 0.9% 100 ml @ 25 mls/hr IVPB Q8HR [facility] Rx# :[id number] Potassium Chloride 10 meq 200 In Water For Injection 1 100ml.bag @ 100 mls/hr IVPB Q1H [facility] Rx#: [id number] Potassium Chloride 20 meq 150 In Water For Injection 1 100ml.bag @ 50 mls/hr IVPB Q2H [facility] Rx#: [id number] Sodium Chloride 0.9% 1, 600 600 150 000 ml @ 50 mls/hr IV . Q20H [facility] Rx#:[id number] metroNIDAZOLE-NS PMX 500 200 100 100 mg In Saline 1 100ml.bag @ 100 mls/hr IVPB Q6HR [facility] Rx#:[id number] pressure bag 36 36 15 Intake, IV Titration 1109.916 25 568 Amount Mvi, Adult No.4 with Vit 875.333 K 10 ml Trace (Conc-1Ml/ Dose) 1 ml Potassium Phosphate 15 mmol Sodium Acetate 20 meq Potassium Chloride 30 meq Magnesium Sulfate gm 1 gm Calcium Gluconate 1 gm In Amino Acid 4.25%-D10w 1,000 ml @ 65 mls/hr IV .[id number] [facility] Rx#:[id number] Mvi, Adult No.4 with Vit 568 K 10 ml Trace (Conc-1Ml/ Dose) 1 ml Potassium Phosphate 15 mmol Sodium Acetate 20 meq Potassium Chloride 50 meq Magnesium Sulfate gm 1 gm Calcium Gluconate 1 gm In Amino Acid 4.25%-D10w 1,000 ml @ 15 mls/hr IV .Q24H [facility] Rx#:[id number] Piperacillin-Tazobactam 3 75 25 .375 gm In Sodium Chloride 0.9% 100 ml @ 25 mls/hr IVPB Q8HR [facility] Rx# :[id number] Propofol 1,000 mg In 159.583 Empty Bag 1 bag @ Titrate IV .Q0M [facility] Rx#: [id number] Tube Feeding 1240 110 60 Other 90 30 Output: Drainage 440 25 Right Abdomen 40 Right Lower Abdomen 400 25 Urine 2320 1505 885 Stool 100 Other: Voiding Method Indwelling Catheter Indwelling Catheter ABP, PAP, CO, CI - Last Documented Arterial Blood Pressure 108/51 - Labs CBC & Chem 7: 10/12/18 04:05 10/12/18 04:05 Labs: Abnormal Lab Results - Last 24 Hours (Table) 10/11/18 10/11/18 10/11/18 Range/Units 11:50 17:57 23:45 WBC (3.8-10.6) k/uL RBC (4.30-5.90) m/uL Hgb (13.0-17.5) gm/dL Hct (39.0-53.0) % RDW (11.5-15.5) % ABG pH (7.35-7.45) ABG pCO2 (35-45) mmHg ABG pO2 (83-108) mmHg ABG HCO3 (21-25) mmol/L Potassium (3.5-5.1) mmol/L Chloride (98-107) mmol/L Carbon Dioxide (22-30) mmol/L BUN (9-20) mg/dL Creatinine (0.66-1.25) mg/dL Glucose (74-99) mg/dL POC Glucose (mg/dL) 188 H 162 H 150 H (75-99) mg/dL Calcium (8.4-10.2) mg/dL 10/12/18 10/12/18 10/12/18 Range/Units 04:05 04:05 05:16 WBC 16.3 H (3.8-10.6) k/uL RBC 2.58 L (4.30-5.90) m/uL Hgb 8.0 L (13.0-17.5) gm/dL Hct 25.3 L (39.0-53.0) % RDW 17.6 H (11.5-15.5) % ABG pH 7.52 H (7.35-7.45) ABG pCO2 23 L (35-45) mmHg ABG pO2 70 L (83-108) mmHg ABG HCO3 19 L (21-25) mmol/L Potassium 3.4 L (3.5-5.1) mmol/L Chloride 112 H (98-107) mmol/L Carbon Dioxide 18 L (22-30) mmol/L BUN 46 H (9-20) mg/dL Creatinine 1.36 H (0.66-1.25) mg/dL Glucose 130 H (74-99) mg/dL POC Glucose (mg/dL) (75-99) mg/dL Calcium 7.2 L (8.4-10.2) mg/dL 10/12/18 Range/Units 05:44 WBC (3.8-10.6) k/uL RBC (4.30-5.90) m/uL Hgb (13.0-17.5) gm/dL Hct (39.0-53.0) % RDW (11.5-15.5) % ABG pH (7.35-7.45) ABG pCO2 (35-45) mmHg ABG pO2 (83-108) mmHg ABG HCO3 (21-25) mmol/L Potassium (3.5-5.1) mmol/L Chloride (98-107) mmol/L Carbon Dioxide (22-30) mmol/L BUN (9-20) mg/dL Creatinine (0.66-1.25) mg/dL Glucose (74-99) mg/dL POC Glucose (mg/dL) 157 H (75-99) mg/dL Calcium (8.4-10.2) mg/dL Assessment and Plan (1) Abdominal pain Current Visit: Yes Status: Acute Code(s): R10.9 - UNSPECIFIED ABDOMINAL PAIN SNOMED Code(s): 17018757 (2) Perforation of sigmoid colon due to diverticulitis Current Visit: Yes Status: Acute Code(s): K57.20 - DVTRCLI OF LG INT W PERFORATION AND ABSCESS W/O BLEEDING SNOMED Code(s): 6108165948583603 (3) Respiratory failure Current Visit: Yes Status: Acute Code(s): J96.90 - RESPIRATORY FAILURE, UNSP, UNSP W HYPOXIA OR HYPERCAPNIA SNOMED Code(s): 871227536 (4) History of atrial fibrillation Current Visit: No Status: Acute Code(s): Z86.79 - PERSONAL HISTORY OF OTHER DISEASES OF THE CIRCULATORY SYSTEM SNOMED Code(s): 396064247 (5) Sepsis Current Visit: No Status: Acute Code(s): A41.9 - SEPSIS, UNSPECIFIED ORGANISM SNOMED Code(s): 24879513 <Huong Coleman N - Last Filed: 10/13/18 16:28> Subjective Additionally, recommend Lasix. Objective - Vital Signs Vital signs: Vital Signs Temp 98 F 10/13/18 16:00 Pulse 84 10/13/18 16:19 Resp 18 10/13/18 16:00 BP 95/56 10/13/18 12:00 Pulse Ox 96 10/13/18 16:00 Intake & Output 10/12/18 10/13/18 10/13/18 18:59 06:59 18:59 Intake Total 2519 1356 1107 Output Total 1550 2190 1410 Balance 969 -634 -303 Weight 133.1 kg 133.1 kg Intake: IV 1591 1336 607 0.9NS 280 Anidulafungin 200 mg In 200 Sodium Chloride 0.9% 200 ml @ 84 mls/hr IVPB ONCE ONE Rx#:[id number] Dextrose 5% in Water 1, 675 900 000 ml @ 75 mls/hr IV . [id number] [facility] with Sodium Bicarb (1 Meq/ml) 150 ml Rx#:[id number] Mvi, Adult No.4 with Vit 180 K 10 ml Trace (Conc-1Ml/ Dose) 1 ml Potassium Phosphate 15 mmol Sodium Acetate 20 meq Potassium Chloride 30 meq Magnesium Sulfate gm 1 gm Calcium Gluconate 1 gm In Amino Acid 4.25%-D10w 1,000 ml @ 65 mls/hr IV .[id number] [facility] Rx#:[id number] Piperacillin-Tazobactam 3 200 100 100 .375 gm In Sodium Chloride 0.9% 100 ml @ 25 mls/hr IVPB Q8HR [facility] Rx# :[id number] Potassium Chloride 20 meq 150 In Water For Injection 1 100ml.bag @ 50 mls/hr IVPB Q2H [facility] Rx#: [id number] Sodium Chloride 0.9% 1, 150 000 ml @ 50 mls/hr IV . Q20H [facility] Rx#:[id number] metroNIDAZOLE-NS PMX 500 200 100 200 mg In Saline 1 100ml.bag @ 100 mls/hr IVPB Q6HR [facility] Rx#:[id number] pressure bag 36 36 27 Intake, IV Titration 568 100 Amount Anidulafungin 100 mg In 100 Sodium Chloride 0.9% 100 ml @ 84 mls/hr IVPB DAILY [facility] Rx#:[id number] Mvi, Adult No.4 with Vit 568 K 10 ml Trace (Conc-1Ml/ Dose) 1 ml Potassium Phosphate 15 mmol Sodium Acetate 20 meq Potassium Chloride 50 meq Magnesium Sulfate gm 1 gm Calcium Gluconate 1 gm In Amino Acid 4.25%-D10w 1,000 ml @ 15 mls/hr IV .Q24H [facility] Rx#:[id number] Tube Feeding 270 20 300 Other 90 100 Output: Drainage 50 20 Right Abdomen 20 Right Lower Abdomen 50 0 Urine 1550 2140 1290 Stool 100 Other: Voiding Method Indwelling Catheter Indwelling Catheter Indwelling Catheter ABP, PAP, CO, CI - Last Documented Arterial Blood Pressure 103/48 - Labs CBC & Chem 7: 10/13/18 05:30 10/13/18 05:30 Labs: Abnormal Lab Results - Last 24 Hours (Table) 10/12/18 10/12/18 10/13/18 Range/Units 18:03 23:48 05:12 WBC (3.8-10.6) k/uL RBC (4.30-5.90) m/uL Hgb (13.0-17.5) gm/dL Hct (39.0-53.0) % RDW (11.5-15.5) % ABG pH 7.55 H (7.35-7.45) ABG pCO2 26 L (35-45) mmHg Chloride (98-107) mmol/L Carbon Dioxide (22-30) mmol/L BUN (9-20) mg/dL Glucose (74-99) mg/dL POC Glucose (mg/dL) 156 H 181 H (75-99) mg/dL Calcium (8.4-10.2) mg/dL Total Bilirubin (0.2-1.3) mg/dL AST (17-59) U/L Total Protein (6.3-8.2) g/dL Albumin (3.5-5.0) g/dL 10/13/18 10/13/18 10/13/18 Range/Units 05:30 05:30 06:17 WBC 15.2 H (3.8-10.6) k/uL RBC 2.48 L (4.30-5.90) m/uL Hgb 8.0 L (13.0-17.5) gm/dL Hct 24.0 L (39.0-53.0) % RDW 18.8 H (11.5-15.5) % ABG pH (7.35-7.45) ABG pCO2 (35-45) mmHg Chloride 113 H (98-107) mmol/L Carbon Dioxide 19 L (22-30) mmol/L BUN 45 H (9-20) mg/dL Glucose 127 H (74-99) mg/dL POC Glucose (mg/dL) 139 H (75-99) mg/dL Calcium 7.2 L (8.4-10.2) mg/dL Total Bilirubin 3.0 H (0.2-1.3) mg/dL AST 87 H (17-59) U/L Total Protein 5.2 L (6.3-8.2) g/dL Albumin 2.2 L (3.5-5.0) g/dL 10/13/18 Range/Units 11:52 WBC (3.8-10.6) k/uL RBC (4.30-5.90) m/uL Hgb (13.0-17.5) gm/dL Hct (39.0-53.0) % RDW (11.5-15.5) % ABG pH (7.35-7.45) ABG pCO2 (35-45) mmHg Chloride (98-107) mmol/L Carbon Dioxide (22-30) mmol/L BUN (9-20) mg/dL Glucose (74-99) mg/dL POC Glucose (mg/dL) 124 H (75-99) mg/dL Calcium (8.4-10.2) mg/dL Total Bilirubin (0.2-1.3) mg/dL AST (17-59) U/L Total Protein (6.3-8.2) g/dL Albumin (3.5-5.0) g/dL Microbiology - Last 24 Hours (Table) 10/12/18 09:50 Blood Culture - Preliminary Blood No Growth after 24 hours 10/12/18 09:47 Blood Culture - Preliminary Blood No Growth after 24 hours Assessment and Plan (1) Respiratory failure Current Visit: Yes Status: Acute Code(s): J96.90 - RESPIRATORY FAILURE, UNSP, UNSP W HYPOXIA OR HYPERCAPNIA SNOMED Code(s): 920634210 (2) Perforation of sigmoid colon due to diverticulitis Current Visit: Yes Status: Acute Code(s): K57.20 - DVTRCLI OF LG INT W PERFORATION AND ABSCESS W/O BLEEDING SNOMED Code(s): 7890353409334152 (3) Acute exacerbation of chronic obstructive airways disease Current Visit: No Status: Acute Code(s): J44.1 - CHRONIC OBSTRUCTIVE PULMONARY DISEASE W (ACUTE) EXACERBATION SNOMED Code(s): 284129231 (4) Diabetes Current Visit: No Status: Acute Code(s): E11.9 - TYPE 2 DIABETES MELLITUS WITHOUT COMPLICATIONS SNOMED Code(s): 70164220 (5) HTN (hypertension) Current Visit: No Status: Acute Code(s): I10 - ESSENTIAL (PRIMARY) HYPERTENSION SNOMED Code(s): 02432064 (6) Sepsis Current Visit: No Status: Acute Code(s): A41.9 - SEPSIS, UNSPECIFIED ORGANISM SNOMED Code(s): 57187842
[2018-10-12 11:54] LABS: Glucose,Whole Blood 175 mg/dL (75-99)
--- NOTE | 2018-10-12 13:14 | P.PN ---
Subjective Progress Note Date: 10/12/18 On today's evaluation of 72,[id number] I saw this patient preoperatively. The patient was in a state that is essentially similar compared to yesterday. The patient was given a sedation holiday he was looking well however after being given a spontaneous breathing trial the patient was getting more tachypneic and tachycardic and for that reason the tidal was discontinued and the plan is to proceed with a PEG and trach insertion today. This morning, the patient is on a mechanical ventilator with a tidal volume of 500 and FiO2 of 40% and a PEEP of 5 with a rate of 20. Chest x-ray shows no major interval change. The patient is still on TPN for nutritional support. Ostomy site is unchanged and there is no functionality were output in his colostomy. No abdominal distention. He has a right upper extremity PICC line which is in place and exit site is dry clean and intact. The patient is well sedated this morning. He is afebrile and hemodynamically stable. He is on no pressors. His renal function is stable with a creatinine of 1.0. The rest of the electrodes are all within normal limits. His white cell count is at 18.3. He is receiving TPN at the rate of 65 ML's an hour. The patient's cardiac rhythm is sinus. The patient was taken to the operating room this afternoon. After arriving back to the ICU, he had a brief hypoxemia and inability to ventilate the patient appropriately. Was noted that the tracheostomy tube was given the right mainstem bronchus. Immediately the tracheostomy tube was pulled out and oxidation improved following that. Subsequent blood gases were noted. Chest x-ray was noted. Tracheostomy currently is in the distal trachea probably around 1 cm above the lisbeth. His adequate ventilation both lungs. The patient is still receiving TPN. Active site is clean. Hemodynamically stable. He is on maintenance fluid of 0.9 at the rate of 50 mL an hour and the patient is producing adequate urine output in the order of 50-80 mL an hour. On 10/11/2018 I'm seeing this patient in the intensive care unit. The patient is post PEG and trach insertion yesterday without any significant complication. This morning it is being gradually weaned off the sedation and the patient is being weaned off the propofol for now. He is opening his eyes however he is not following any commands at this point in time. Is quite successful a mechanical ventilator. The patient currently is on assist control mode of ventilation. Current vent setting includes a tidal volume of 500 with an FiO2 of 50% and a PEEP of 5 and the rate of 20. I switched him to a VC plus mode and subsequently to the tidal volume to 659 that the patient had a high minute ventilation and he was taken very high tidal volumes along with high respiratory rates. This may the patient much more comfortable dropped his respiratory rate and he became more success with the mechanical ventilator. The chest x-ray from today shows some increased vascular marking and small effusions. I was extubated within about his inability to have any bowel movements and the functionality of the colostomy was of a question and the patient has been on TPN since his surgery. For all this reasons, I discussed the case with the general surgeon and would proceed with a CAT scan of the abdomen and pelvis with oral and IV contrast. The CAT scan showed gastrostomy tube in place, right lower quadrant drainage catheter is in place, and there is evidence of ascites and mild degree of fluid within the abdomen and pelvis. There was an incidental left lower quadrant colostomy. The colostomy segment appeared to be thickened. Contrast is seen within the small bowel distally with contrast noted within the rectosigmoid region and the anastomotic site. No evidence of any free air or abscess at this point in time. The lung bases showed atelectatic changes and small pleural effusions. The patient is still on TPN for nutritional support. The patient is on Zosyn. The patient is on Flagyl. The patient is on DuoNeb the right treatment [id number]. It was noted that the patient is having increased swelling in the upper and lower extremities and the patient will be started on Lasix 40 mg every 12 hours. This would optimize his fluid balance. On 10/12/2018 I'm seeing this patient for a follow-up. The patient is awake off sedation. The patient is still on a mechanical ventilator. On today's evaluation he is on assist-control mode at a tidal volume of 550 with a rate of 26 FiO2 of 50% and a PEEP of 5. Chest x-rays stable and he shows indwelling tubes and catheters that are unchanged compared to yesterday. The patient a tracheostomy tube in place. The patient is a small bilateral pleural effusion and pulmonary vascular congestion. The blood gas showed a pH of 7.52 with a pCO2 of 23 and pO2 of 70 with an FiO2 of 50%. He is having low-grade fever. He is a bit acidotic on today's evaluation with a serum bicarb of 18. He is developing an acute kidney injury creatinine of 1.36. White cell count was nonelevated. He is still on it, addition of Zosyn and Flagyl. He has a PICC line. The patient is receiving TPN for nutritional support. Enteral feeding was also started with a lower rate of vital high protein. No nausea. No vomiting. No abdominal distention. This surgical wound site is dry clean and intact. The wound VAC is still in place. There is some altered in his colostomy bag Objective - Vital Signs Vital signs: Vital Signs Temp 100.4 F H 10/12/18 08:00 Pulse 95 10/12/18 13:00 Resp 25 H 10/12/18 13:00 BP 105/61 10/12/18 13:00 Pulse Ox 96 10/12/18 13:00 Intake & Output 10/11/18 10/12/18 10/12/18 18:59 06:59 18:59 Intake Total 4260.916 1391 1829 Output Total 2860 1530 1185 Balance 1400.916 -139 644 Weight 135.7 kg Intake: IV 1911 1166 1101 Dextrose 5% in Water 1, 300 000 ml @ 75 mls/hr IV . [id number] [facility] with Sodium Bicarb (1 Meq/ml) 150 ml Rx#:[id number] Mvi, Adult No.4 with Vit 675 330 180 K 10 ml Trace (Conc-1Ml/ Dose) 1 ml Potassium Phosphate 15 mmol Sodium Acetate 20 meq Potassium Chloride 30 meq Magnesium Sulfate gm 1 gm Calcium Gluconate 1 gm In Amino Acid 4.25%-D10w 1,000 ml @ 65 mls/hr IV .[id number] [facility] Rx#:[id number] Piperacillin-Tazobactam 3 200 100 100 .375 gm In Sodium Chloride 0.9% 100 ml @ 25 mls/hr IVPB Q8HR [facility] Rx# :[id number] Potassium Chloride 10 meq 200 In Water For Injection 1 100ml.bag @ 100 mls/hr IVPB Q1H [facility] Rx#: [id number] Potassium Chloride 20 meq 150 In Water For Injection 1 100ml.bag @ 50 mls/hr IVPB Q2H [facility] Rx#: [id number] Sodium Chloride 0.9% 1, 600 600 150 000 ml @ 50 mls/hr IV . Q20H [facility] Rx#:[id number] metroNIDAZOLE-NS PMX 500 200 100 200 mg In Saline 1 100ml.bag @ 100 mls/hr IVPB Q6HR [facility] Rx#:[id number] pressure bag 36 36 21 Intake, IV Titration 1109.916 25 568 Amount Mvi, Adult No.4 with Vit 875.333 K 10 ml Trace (Conc-1Ml/ Dose) 1 ml Potassium Phosphate 15 mmol Sodium Acetate 20 meq Potassium Chloride 30 meq Magnesium Sulfate gm 1 gm Calcium Gluconate 1 gm In Amino Acid 4.25%-D10w 1,000 ml @ 65 mls/hr IV .[id number] [facility] Rx#:[id number] Mvi, Adult No.4 with Vit 568 K 10 ml Trace (Conc-1Ml/ Dose) 1 ml Potassium Phosphate 15 mmol Sodium Acetate 20 meq Potassium Chloride 50 meq Magnesium Sulfate gm 1 gm Calcium Gluconate 1 gm In Amino Acid 4.25%-D10w 1,000 ml @ 15 mls/hr IV .Q24H [facility] Rx#:[id number] Piperacillin-Tazobactam 3 75 25 .375 gm In Sodium Chloride 0.9% 100 ml @ 25 mls/hr IVPB Q8HR [facility] Rx# :[id number] Propofol 1,000 mg In 159.583 Empty Bag 1 bag @ Titrate IV .Q0M [facility] Rx#: [id number] Tube Feeding 1240 110 100 Other 90 60 Output: Drainage 440 25 Right Abdomen 40 Right Lower Abdomen 400 25 Urine 2320 1505 1185 Stool 100 Other: Voiding Method Indwelling Catheter Indwelling Catheter ABP, PAP, CO, CI - Last Documented Arterial Blood Pressure 112/51 - Exam Obese, comfortable and the patient is was sedated for now. The patient is intubated on a mechanical ventilator. Patient has a Bivona tracheostomy tube in place which is #8. The patient patient mechanical ventilator. He is calm and comfortable. Head exam was generally normal. There was no scleral icterus or corneal arcus. Mucous membranes were moist. Neck was supple and without jugular venous distension, thyromegaly, or carotid bruits. Carotids were easily palpable bilaterally. There was no adenopathy. The patient is a tracheostomy tube in place at this point in time. Lungs were clear to auscultation and percussion, and with normal diaphragmatic excursion. No wheezes or rales were noted. Breath sounds are diminished in lung bases bilaterally. Cardiac exam revealed the PMI to be normally situated and sized. The rhythm was regular and no extrasystoles were noted during several minutes of auscultation. The first and second heart sounds were normal and physiologic splitting of the second heart sound was noted. There were no murmurs, rubs, clicks, or gallops. Abdomen is soft and the patient has a mid abdominal incision which is dry clean and intact. There is a wound VAC in place. The colostomy site is nonfunctional. I'm unable to see the colostomy edges as the stoma itself it seems to be resected under the skin. No abdominal distention be bowel sounds are hypoactive at this point in time he is no direct tenderness. No rebound tenderness. No guarding. Active site is dry clean and intact at this point in time. Bowel sounds are hypoactive/absent. Examination of the extremities revealed easily palpable radial, femoral and pedal pulses. There was no cyanosis, clubbing or edema. Examination of the skin revealed no evidence of significant rashes, suspicious appearing nevi or other concerning lesions. Neurologically the patient is awake off sedation and is following simple commands. He is profoundly weak both in upper and lower extremities. - Labs CBC & Chem 7: 10/12/18 04:05 10/12/18 04:05 Labs: Abnormal Lab Results - Last 24 Hours (Table) 10/11/18 10/11/18 10/12/18 Range/Units 17:57 23:45 04:05 WBC (3.8-10.6) k/uL RBC (4.30-5.90) m/uL Hgb (13.0-17.5) gm/dL Hct (39.0-53.0) % RDW (11.5-15.5) % ABG pH (7.35-7.45) ABG pCO2 (35-45) mmHg ABG pO2 (83-108) mmHg ABG HCO3 (21-25) mmol/L Potassium 3.4 L (3.5-5.1) mmol/L Chloride 112 H (98-107) mmol/L Carbon Dioxide 18 L (22-30) mmol/L BUN 46 H (9-20) mg/dL Creatinine 1.36 H (0.66-1.25) mg/dL Glucose 130 H (74-99) mg/dL POC Glucose (mg/dL) 162 H 150 H (75-99) mg/dL Calcium 7.2 L (8.4-10.2) mg/dL 10/12/18 10/12/18 10/12/18 Range/Units 04:05 05:16 05:44 WBC 16.3 H (3.8-10.6) k/uL RBC 2.58 L (4.30-5.90) m/uL Hgb 8.0 L (13.0-17.5) gm/dL Hct 25.3 L (39.0-53.0) % RDW 17.6 H (11.5-15.5) % ABG pH 7.52 H (7.35-7.45) ABG pCO2 23 L (35-45) mmHg ABG pO2 70 L (83-108) mmHg ABG HCO3 19 L (21-25) mmol/L Potassium (3.5-5.1) mmol/L Chloride (98-107) mmol/L Carbon Dioxide (22-30) mmol/L BUN (9-20) mg/dL Creatinine (0.66-1.25) mg/dL Glucose (74-99) mg/dL POC Glucose (mg/dL) 157 H (75-99) mg/dL Calcium (8.4-10.2) mg/dL 10/12/18 Range/Units 11:51 WBC (3.8-10.6) k/uL RBC (4.30-5.90) m/uL Hgb (13.0-17.5) gm/dL Hct (39.0-53.0) % RDW (11.5-15.5) % ABG pH (7.35-7.45) ABG pCO2 (35-45) mmHg ABG pO2 (83-108) mmHg ABG HCO3 (21-25) mmol/L Potassium (3.5-5.1) mmol/L Chloride (98-107) mmol/L Carbon Dioxide (22-30) mmol/L BUN (9-20) mg/dL Creatinine (0.66-1.25) mg/dL Glucose (74-99) mg/dL POC Glucose (mg/dL) 175 H (75-99) mg/dL Calcium (8.4-10.2) mg/dL Assessment and Plan Plan: 1 sigmoid colectomy and diverting colostomy for a perforated diverticular abscess formation. The patient is postop day #11 2 acute hypoxic respiratory failure secondary to above. The patient has failed to wean. Weaning parameters remain poor. Due to failure to wean, the patient was given a tracheostomy tube today. When the process of proceeding with gradually wean in this patient. For now he is postop day #2. Following tracheostomy tube insertion. Chest x-ray shows adequate expansion of both lungs. 3 abdominal sepsis secondary to E. coli and pseudomonas aeruginosa. The patient is currently on accommodation Zosyn and Flagyl and there is also anaerobic gram- negative bacillus growing in the abdominal cultures. The patient underwent a follow-up CAT scan of the abdomen and pelvis with oral and IV contrast and that is no evidence of any abscess. There may be some limited ileus however the contrast passed through the large bowel and anastomotic site and there was no evidence of any abscess formation. The patient is on TPN. We are considering enteral feeding for nutritional support. The patient is on low dose enteral feeding for nutritional support. We will gradually advance as the patient is able to produce some bowel activity in the colostomy bag. 4 hypotension recovered 5 proximal atrial fibrillation current rhythm is sinus 6 history of hypothyroidism 7 history of hyperlipidemia 8 history of hypertension 9 degenerative arthritis 10 low-grade fever 11 non-anion gap metabolic acidosis Plan We'll start the patient on D5 with 3 A of bicarb infusion at the rate of 75 Leisa hour. Monitor the bicarb levels. Monitor renal function. Obtain a 2 sets of blood cultures one from the PICC line and another one from the periphe ry. Continue IV Lasix. Continue TPN for now and this will be gradually weaned off as the patient is being advanced on his enteral feeding. Keep the patient off sedation. No vent changes for today. All of his condition and will make further recommendations based on his overall progress. This evaluation was done and more than 30 minutes. Time with Patient: Greater than 30
--- NOTE | 2018-10-12 13:29 | P.PN ---
Subjective patient is intubated and sedated. He had sigmoid colectomy with a drain placement and partial closure of the incision for a perforated acute divert iculitis. He has a wound VAC in place as well. Not able to obtain review of systems secondary to the patient's state 10/10/2018 Patient intubated and sedated. Patient will probably have a trach and PEG as he failed weaning trial several times 10/11/2018 Patient got a trach and PEG yesterday Still sedated 10/12/2018 Patient was spiking fevers He was started on tube feeding yesterday Objective - Vital Signs Vital signs: Vital Signs Temp 100.4 F H 10/12/18 08:00 Pulse 95 10/12/18 13:00 Resp 25 H 10/12/18 13:00 BP 105/61 10/12/18 13:00 Pulse Ox 96 10/12/18 13:00 Intake & Output 10/11/18 10/12/18 10/12/18 18:59 06:59 18:59 Intake Total 4260.916 1391 1829 Output Total 2860 1530 1185 Balance 1400.916 -139 644 Weight 135.7 kg Intake: IV 1911 1166 1101 Dextrose 5% in Water 1, 300 000 ml @ 75 mls/hr IV . [id number] [facility] with Sodium Bicarb (1 Meq/ml) 150 ml Rx#:[id number] Mvi, Adult No.4 with Vit 675 330 180 K 10 ml Trace (Conc-1Ml/ Dose) 1 ml Potassium Phosphate 15 mmol Sodium Acetate 20 meq Potassium Chloride 30 meq Magnesium Sulfate gm 1 gm Calcium Gluconate 1 gm In Amino Acid 4.25%-D10w 1,000 ml @ 65 mls/hr IV .[id number] [facility] Rx#:[id number] Piperacillin-Tazobactam 3 200 100 100 .375 gm In Sodium Chloride 0.9% 100 ml @ 25 mls/hr IVPB Q8HR [facility] Rx# :[id number] Potassium Chloride 10 meq 200 In Water For Injection 1 100ml.bag @ 100 mls/hr IVPB Q1H [facility] Rx#: [id number] Potassium Chloride 20 meq 150 In Water For Injection 1 100ml.bag @ 50 mls/hr IVPB Q2H [facility] Rx#: [id number] Sodium Chloride 0.9% 1, 600 600 150 000 ml @ 50 mls/hr IV . Q20H [facility] Rx#:[id number] metroNIDAZOLE-NS PMX 500 200 100 200 mg In Saline 1 100ml.bag @ 100 mls/hr IVPB Q6HR [facility] Rx#:[id number] pressure bag 36 36 21 Intake, IV Titration 1109.916 25 568 Amount Mvi, Adult No.4 with Vit 875.333 K 10 ml Trace (Conc-1Ml/ Dose) 1 ml Potassium Phosphate 15 mmol Sodium Acetate 20 meq Potassium Chloride 30 meq Magnesium Sulfate gm 1 gm Calcium Gluconate 1 gm In Amino Acid 4.25%-D10w 1,000 ml @ 65 mls/hr IV .[id number] [facility] Rx#:[id number] Mvi, Adult No.4 with Vit 568 K 10 ml Trace (Conc-1Ml/ Dose) 1 ml Potassium Phosphate 15 mmol Sodium Acetate 20 meq Potassium Chloride 50 meq Magnesium Sulfate gm 1 gm Calcium Gluconate 1 gm In Amino Acid 4.25%-D10w 1,000 ml @ 15 mls/hr IV .Q24H [facility] Rx#:[id number] Piperacillin-Tazobactam 3 75 25 .375 gm In Sodium Chloride 0.9% 100 ml @ 25 mls/hr IVPB Q8HR [facility] Rx# :[id number] Propofol 1,000 mg In 159.583 Empty Bag 1 bag @ Titrate IV .Q0M [facility] Rx#: [id number] Tube Feeding 1240 110 100 Other 90 60 Output: Drainage 440 25 Right Abdomen 40 Right Lower Abdomen 400 25 Urine 2320 1505 1185 Stool 100 Other: Voiding Method Indwelling Catheter Indwelling Catheter ABP, PAP, CO, CI - Last Documented Arterial Blood Pressure 112/51 - Exam On exam, patient intubated and sedated HEENT: Conjunctivae normal. eyes normal. NECK: No JVD. No thyroid enlargement. No LNs CARDIOVASCULAR: S1-S2 positive RESPIRATION: Breath sounds diminished in the bases. No rhonchi or crackles. No bronchial breathing. Patient has a trach now ABDOMEN: soft bowel sounds present. Patient has left-sided colostomy with dressing in place. He also had a wound VAC and drained.. Patient has a PEG tube now LEGS: No edema. no swelling NERVOUS SYSTEM: not able to assess the neuro system as the patient is intubated and sedated - Labs CBC & Chem 7: 07/04/19 04:05 10/12/18 04:05 Labs: Abnormal Lab Results - Last 24 Hours (Table) 10/11/18 10/11/18 10/12/18 Range/Units 17:57 23:45 04:05 WBC (3.8-10.6) k/uL RBC (4.30-5.90) m/uL Hgb (13.0-17.5) gm/dL Hct (39.0-53.0) % RDW (11.5-15.5) % ABG pH (7.35-7.45) ABG pCO2 (35-45) mmHg ABG pO2 (83-108) mmHg ABG HCO3 (21-25) mmol/L Potassium 3.4 L (3.5-5.1) mmol/L Chloride 112 H (98-107) mmol/L Carbon Dioxide 18 L (22-30) mmol/L BUN 46 H (9-20) mg/dL Creatinine 1.36 H (0.66-1.25) mg/dL Glucose 130 H (74-99) mg/dL POC Glucose (mg/dL) 162 H 150 H (75-99) mg/dL Calcium 7.2 L (8.4-10.2) mg/dL 10/12/18 10/12/18 10/12/18 Range/Units 04:05 05:16 05:44 WBC 16.3 H (3.8-10.6) k/uL RBC 2.58 L (4.30-5.90) m/uL Hgb 8.0 L (13.0-17.5) gm/dL Hct 25.3 L (39.0-53.0) % RDW 17.6 H (11.5-15.5) % ABG pH 7.52 H (7.35-7.45) ABG pCO2 23 L (35-45) mmHg ABG pO2 70 L (83-108) mmHg ABG HCO3 19 L (21-25) mmol/L Potassium (3.5-5.1) mmol/L Chloride (98-107) mmol/L Carbon Dioxide (22-30) mmol/L BUN (9-20) mg/dL Creatinine (0.66-1.25) mg/dL Glucose (74-99) mg/dL POC Glucose (mg/dL) 157 H (75-99) mg/dL Calcium (8.4-10.2) mg/dL 10/12/18 Range/Units 11:51 WBC (3.8-10.6) k/uL RBC (4.30-5.90) m/uL Hgb (13.0-17.5) gm/dL Hct (39.0-53.0) % RDW (11.5-15.5) % ABG pH (7.35-7.45) ABG pCO2 (35-45) mmHg ABG pO2 (83-108) mmHg ABG HCO3 (21-25) mmol/L Potassium (3.5-5.1) mmol/L Chloride (98-107) mmol/L Carbon Dioxide (22-30) mmol/L BUN (9-20) mg/dL Creatinine (0.66-1.25) mg/dL Glucose (74-99) mg/dL POC Glucose (mg/dL) 175 H (75-99) mg/dL Calcium (8.4-10.2) mg/dL Assessment and Plan Assessment: - acute respiratory failure status post intubation - Acute perforated enterocolitis status post sigmoid colectomy, with resultant colostomy and SAMY drain. - Septic shock with hypertension status post pressor support - AK I - CAD - Hyperlipidemia - Hypertension - Proximal atrial flutter on Coumadin - Hypothyroidism Plan 10/09/2018 - Patient intubated. Appreciated ICU recommendations - General surgery on board as well. - infectious disease on board for antibiotic recommendations - Nephrology consult for AK I - continue current medical care - We'll follow the patient 10/10/2018 - Patient will probably get trach and PEG this afternoon - Antibiotic recommendations as per infectious disease - We'll continue rest of the medical care - Follow up on the patient 10/11/2018 - CT abdomen and pelvis ordered. If normal or shows improvement patient will be started on tube feedings depending upon surgery recommendations - Continue ICU care and management - We'll follow the patient 10/12/2018 - Patient was started on PEG tube feeding yesterday - He still having fevers. Blood cultures ordered one from the PICC line one from peripheral site. - He is on Zosyn for antibiotic coverage. ID following the patient - We'll continue to monitor the patient
[2018-10-12] MEDS ORDERED: ANIDULAFUNGIN 200 MG in SODIUM CHLORIDE 0.9% 200 ML IVPB ONE (16:42)
[2018-10-12] MEDS ORDERED: ACETAMINOPHEN IV (For NPO) 1,000 MG in EMPTY BAG 1 BAG IVPB PRN (16:44)
[2018-10-12 18:29] LABS: Glucose,Whole Blood 156 mg/dL (75-99)
--- NOTE | 2018-10-12 20:22 | PN ---
PROGRESS NOTE DATE OF SERVICE: 10/12/2018. REASON FOR FOLLOWUP: 1. Abdominal abscess from ruptured sigmoid diverticulitis. 2. New fever. INTERVAL HISTORY: The patient did spike a fever of 100.4-100.6. Blood culture has been obtained from the PICC line as well as peripherally. The patient is hemodynamically stable. He is more awake, alert, and did answer some simple questions. FIO2 is currently stable. PHYSICAL EXAMINATION: Blood pressure is 119/55 with a pulse of 90, temperature of 100. He is 95% on 50% FiO2. General description is an elderly male lying in bed in no distress. RESPIRATORY system: Unlabored breathing. Clear to auscultation anteriorly. HEART S1, S2. Regular rate and rhythm. ABDOMEN: Soft, no tenderness. LABS: Hemoglobin 8, white count 16.3, BUN of 46, creatinine 1.36. DIAGNOSTIC IMPRESSION AND PLAN: Patient with abdominal abscess from a ruptured sigmoid diverticulitis, status post diverting colostomy. Abdominal culture with an E coli, Pseudomonas aeruginosa, anaerobic gram negative bacilli. Patient covered with Zojoann Flagrajni. However, the patient now has a new fever. The patient is a high risk of Soha infection because of steroids and antibiotic the patient has been on with abdominal surgery. Blood pressure has been repeated. We will add Eraxis as Diflucan could not be added because of drug interaction. Monitor his clinical course closely. Continue supportive care. MARITA / TOM: [id number] /
[2018-10-12] MEDS: INSULIN DETEMIR (LEVEMIR) 100 UNIT/ML SYR SQ SCH (21:58)
[2018-10-12] MEDS: SODIUM CHLORIDE 0.9% 1,000 ML IV SCH (22:01)
[2018-10-12 23:52] LABS: Glucose,Whole Blood 181 mg/dL (75-99)
[2018-10-13] MEDS: INSULIN ASPART (NovoLOG) 100 UNIT/ML VIAL SQ SCH ×4 (00:01→17:39)
[2018-10-13] MEDS: PIPERACILLIN-TAZOBACTAM 3.375 GM in SODIUM CHLORIDE 0.9% 100 ML IVPB SCH ×3 (00:02→15:36)
[2018-10-13] MEDS: MVI, ADULT NO.4 WITH VIT K 10 ML, TRACE (CONC-1ML/DOSE) 1 ML, POTASSIUM PHOSPHATE 15 MM... IV SCH ×8 (01:38)
[2018-10-13] MEDS: DEXTROSE 5% IN WATER 1,000 ML with SODIUM BICARB (1 MEQ/ML) 150 ML IV SCH (02:00)
[2018-10-13] MEDS: HYDROmorphone 1 MG/ML 1 ML SYRINGE IVP PRN ×6 (02:11→22:05)
[2018-10-13] MEDS: IPRATROPIUM-ALBUTEROL 3 ML NEB INHALATION SCH ×6 (03:36→23:26)
[2018-10-13 05:16] LABS: ABG Base Excess 0.8 mmol/L; ABG HCO3 23 mmol/L (21-25); ABG Oxygen Saturation 96.9 % (94-97); ABG PCO2 26 mmHg (35-45); ABG PH 7.55 (7.35-7.45); ABG PO2 83 mmHg (83-108); ABG TCO2 24 mmol/L (19-24); Allen Test Performed? Yes
[2018-10-13 05:56] LABS: Anisocytosis Slight; Hypochromasia Moderate; MCH 32.1 pg (25.0-35.0); MCHC 33.2 g/dL (31.0-37.0); MCV 96.7 fL (80.0-100.0); Macrocytosis Slight; Mean Platelet Volume 9.1; Platelet Count 348 k/uL (150-450); Poikilocytosis Moderate; RBC 2.48 m/uL (4.30-5.90); RDW 18.8 % (11.5-15.5); WBC 15.2 k/uL (3.8-10.6)
[2018-10-13 06:30] LABS: Glucose,Whole Blood 139 mg/dL (75-99)
[2018-10-13 06:43] LABS: Albumin 2.2 g/dL (3.5-5.0); Calcium 7.2 mg/dL (8.4-10.2); Total Protein 5.2 g/dL (6.3-8.2)
[2018-10-13 06:44] LABS: Potassium 4.9 mmol/L (3.5-5.1)
[2018-10-13] MEDS: metroNIDAZOLE-NS PMX 500 MG in SALINE 1 100ML.BAG IVPB SCH ×5 (06:50→23:30)
--- NOTE | 2018-10-13 07:53 | PN ---
PROGRESS NOTE Mr. Martinez is an 82-year-old male with known history of coronary artery disease, status post coronary artery bypass grafting, history of paroxysmal atrial fibrillation, who presented with a ruptured viscus, underwent diverting colostomy. He has tracheostomy and PEG tube placement. Hemodynamically stable. He continued to be in sinus mechanism. His oxygenation has been stable and his urine output is good. There is no evidence of recurrent atrial fibrillation. He continues to be at this time on aspirin 81 mg daily, Lasix 40 mg IV q.12 hours, metoprolol tartrate 25 mg 3 times a day. PHYSICAL EXAMINATION: Blood pressure 120/50 with a heart rate in the 90s. LUNGS: Clear anteriorly. HEART: Regular rate and rhythm, S1, S2. No S3 with a systolic ejection murmur, no diastolic murmur. ABDOMEN: Soft, nontender. Colostomy bag in place. Positive bowel sounds. No organomegaly. EXTREMITIES: 1+ edema. LAB DATA: Revealed a hemoglobin of 8, white blood cell of 15.2. BUN and creatinine 45 and 1.1. AST of 87, ALT of 43. Chest x-ray shows no acute infiltrate. IMPRESSION: 1. Status post diverting colostomy with mild output in the colostomy following perforated diverticular abscess. 2. Respiratory failure, improving. 3. History of coronary artery disease, status post coronary artery bypass grafting, stable. 4. Atrial fibrillation paroxysmal, now in sinus mechanism. 5. History of hyperlipidemia. 6. History of hypertension. RECOMMENDATION: From the cardiac standpoint, will continue present therapy, continue to try to wean him. I will re-initiate treatment with his statin. He will continue on the beta abelardo, follow his blood pressure and depending on that, further recommendation will be made. MMODL / IJN: [id number] /
--- NOTE | 2018-10-13 08:08 | XR ---
EXAMINATION TYPE: XR chest 1V portable DATE OF EXAM: 10/13/2018 COMPARISON: 10/12/2018 HISTORY: SOB, Follow Up FINDINGS: Indwelling tubes and catheters are unchanged. No change in bibasilar opacities. Stable appearance of the cardio-mediastinal structures at this time. Pleural effusion unchanged. IMPRESSION: 1. Stable portable chest. Clinical correlation and follow up until resolution is recommended.
[2018-10-13] MEDS: ANIDULAFUNGIN 100 MG in SODIUM CHLORIDE 0.9% 100 ML IVPB SCH (08:35)
[2018-10-13] MEDS: ASPIRIN 81 MG PO SCH (08:35)
[2018-10-13] MEDS: PANTOPRAZOLE 40 MG/10 ML VIAL IVP SCH ×2 (08:35→21:39)
[2018-10-13] MEDS: CHLORHEXIDINE GLUCONATE 15 ML CUP MUCOUS MEM SCH ×2 (08:35→21:39)
[2018-10-13] MEDS: FUROSEMIDE 10 MG/ML 4 ML VIAL IV SCH ×2 (08:35→21:40)
[2018-10-13] MEDS: METOPROLOL TARTRATE 25 MG TAB PO SCH ×3 (08:36→21:39)
[2018-10-13] MEDS: PRAVASTATIN SODIUM 40 MG TAB PO SCH (08:38)
--- NOTE | 2018-10-13 11:47 | P.PN ---
<Leonor Lindsay A - Last Filed: 10/13/18 11:44> Subjective Progress Note Date: 10/13/18 CHIEF COMPLAINT: Abdominal pain HISTORY OF PRESENT ILLNESS: Patient is status post exploratory laparotomy, sigmoid colectomy with end colostomy, and drainage of abscess secondary to perforated diverticulitis. Patient is also s/p trach and PEG tube placement. Patient remains on mechanical ventilation in the ICU. Remains off sedation. He is tolerating tube feedings. TPN has been weaned off. Ostomy with small amount of stool. WBC 15.2. Hemoglobin 8.0. Vital signs stable. He is afebrile. PHYSICAL EXAM: VITAL SIGNS: Reviewed GENERAL: Well-developed in no acute distress-remains on mechanical ventilation. HEENT: No sclera icterus. Extraocular movements grossly intact. Moist buccal mucosa. Head is atraumatic, normocephalic. NECK: Trach intact without signs of bleeding or infection. Supple without lymphadenopathy. CHEST: Non-labored respirations and equal bilateral excursions. remains on mechanical ventilation CARDIOVASCULAR: Regular rate with regular rhythm. Palpable 2+ radial pulses. ABDOMEN: Wound vac to abdomen. Ostomy intact with small amount of liquid stool. SAMY drain noted to right lower quadrant. MUSCULOSKELETAL: No clubbing, cyanosis. +2 edema to bilateral extremities, improving NEUROLOGIC: No focal or lateralizing signs. Cranial nerves II through XII grossly intact. PSYCH: Patient awake and alert. Follows commands. SKIN: Well perfused. Good skin turgor. ASSESSMENT: 1. Perforated diverticulitis, status post exploratory laparotomy, sigmoid colectomy with end colostomy, and drainage of abscess 2. Sepsis, abdominal cultures positive for E. coli and pseudomonas aeruginosa 3. Peritonitis 4. Acute hypoxic respiratory failure, S/P trach and peg 5. Paroxysmal atrial fibrillation 6. Hypokalemia PLAN: 1. Ventilator management per Dr. Escalante 2. Continue wound vac and antibiotics per infectious disease 3. Continue tube feedings as tolerated Nurse practitioner note has been reviewed by physician. Signing provider agrees with the documented findings, assessment, and plan of care. Objective - Vital Signs Vital signs: Vital Signs Temp 98.2 F 10/13/18 08:00 Pulse 93 10/13/18 11:00 Resp 20 10/13/18 11:00 BP 114/65 10/13/18 09:00 Pulse Ox 96 10/13/18 11:00 Intake & Output 10/12/18 10/13/18 10/13/18 18:59 06:59 18:59 Intake Total 2519 1356 605 Output Total 1170 2520 835 Balance 969 -834 -230 Weight 133.1 kg 133.1 kg Intake: IV 1591 1336 295 0.9NS 80 Anidulafungin 200 mg In 200 Sodium Chloride 0.9% 200 ml @ 84 mls/hr IVPB ONCE ONE Rx#:[id number] Dextrose 5% in Water 1, 675 900 000 ml @ 75 mls/hr IV . [id number] [facility] with Sodium Bicarb (1 Meq/ml) 150 ml Rx#:[id number] Mvi, Adult No.4 with Vit 180 K 10 ml Trace (Conc-1Ml/ Dose) 1 ml Potassium Phosphate 15 mmol Sodium Acetate 20 meq Potassium Chloride 30 meq Magnesium Sulfate gm 1 gm Calcium Gluconate 1 gm In Amino Acid 4.25%-D10w 1,000 ml @ 65 mls/hr IV .[id number] [facility] Rx#:[id number] Piperacillin-Tazobactam 3 200 100 100 .375 gm In Sodium Chloride 0.9% 100 ml @ 25 mls/hr IVPB Q8HR [facility] Rx# :[id number] Potassium Chloride 20 meq 150 In Water For Injection 1 100ml.bag @ 50 mls/hr IVPB Q2H [facility] Rx#: [id number] Sodium Chloride 0.9% 1, 150 000 ml @ 50 mls/hr IV . Q20H [facility] Rx#:[id number] metroNIDAZOLE-NS PMX 500 200 100 100 mg In Saline 1 100ml.bag @ 100 mls/hr IVPB Q6HR [facility] Rx#:[id number] pressure bag 36 36 15 Intake, IV Titration 568 100 Amount Anidulafungin 100 mg In 100 Sodium Chloride 0.9% 100 ml @ 84 mls/hr IVPB DAILY [facility] Rx#:[id number] Mvi, Adult No.4 with Vit 568 K 10 ml Trace (Conc-1Ml/ Dose) 1 ml Potassium Phosphate 15 mmol Sodium Acetate 20 meq Potassium Chloride 50 meq Magnesium Sulfate gm 1 gm Calcium Gluconate 1 gm In Amino Acid 4.25%-D10w 1,000 ml @ 15 mls/hr IV .Q24H [facility] Rx#:[id number] Tube Feeding 270 20 140 Other 90 70 Output: Drainage 50 Right Lower Abdomen 50 Urine 1550 2140 835 Other: Voiding Method Indwelling Catheter Indwelling Catheter Indwelling Catheter ABP, PAP, CO, CI - Last Documented Arterial Blood Pressure 126/53 - Labs CBC & Chem 7: 10/13/18 05:30 10/13/18 05:30 Labs: Abnormal Lab Results - Last 24 Hours (Table) 10/12/18 10/12/18 10/12/18 Range/Units 11:51 18:03 23:48 WBC (3.8-10.6) k/uL RBC (4.30-5.90) m/uL Hgb (13.0-17.5) gm/dL Hct (39.0-53.0) % RDW (11.5-15.5) % ABG pH (7.35-7.45) ABG pCO2 (35-45) mmHg Chloride (98-107) mmol/L Carbon Dioxide (22-30) mmol/L BUN (9-20) mg/dL Glucose (74-99) mg/dL POC Glucose (mg/dL) 175 H 156 H 181 H (75-99) mg/dL Calcium (8.4-10.2) mg/dL Total Bilirubin (0.2-1.3) mg/dL AST (17-59) U/L Total Protein (6.3-8.2) g/dL Albumin (3.5-5.0) g/dL 10/13/18 10/13/18 10/13/18 Range/Units 05:12 05:30 05:30 WBC 15.2 H (3.8-10.6) k/uL RBC 2.48 L (4.30-5.90) m/uL Hgb 8.0 L (13.0-17.5) gm/dL Hct 24.0 L (39.0-53.0) % RDW 18.8 H (11.5-15.5) % ABG pH 7.55 H (7.35-7.45) ABG pCO2 26 L (35-45) mmHg Chloride 113 H (98-107) mmol/L Carbon Dioxide 19 L (22-30) mmol/L BUN 45 H (9-20) mg/dL Glucose 127 H (74-99) mg/dL POC Glucose (mg/dL) (75-99) mg/dL Calcium 7.2 L (8.4-10.2) mg/dL Total Bilirubin 3.0 H (0.2-1.3) mg/dL AST 87 H (17-59) U/L Total Protein 5.2 L (6.3-8.2) g/dL Albumin 2.2 L (3.5-5.0) g/dL 10/13/18 Range/Units 06:17 WBC (3.8-10.6) k/uL RBC (4.30-5.90) m/uL Hgb (13.0-17.5) gm/dL Hct (39.0-53.0) % RDW (11.5-15.5) % ABG pH (7.35-7.45) ABG pCO2 (35-45) mmHg Chloride (98-107) mmol/L Carbon Dioxide (22-30) mmol/L BUN (9-20) mg/dL Glucose (74-99) mg/dL POC Glucose (mg/dL) 139 H (75-99) mg/dL Calcium (8.4-10.2) mg/dL Total Bilirubin (0.2-1.3) mg/dL AST (17-59) U/L Total Protein (6.3-8.2) g/dL Albumin (3.5-5.0) g/dL Assessment and Plan (1) Abdominal pain Current Visit: Yes Status: Acute Code(s): R10.9 - UNSPECIFIED ABDOMINAL PAIN SNOMED Code(s): 96749580 (2) Perforation of sigmoid colon due to diverticulitis Current Visit: Yes Status: Acute Code(s): K57.20 - DVTRCLI OF LG INT W PERFORATION AND ABSCESS W/O BLEEDING SNOMED Code(s): 0371583843297403 (3) Respiratory failure Current Visit: Yes Status: Acute Code(s): J96.90 - RESPIRATORY FAILURE, UNSP, UNSP W HYPOXIA OR HYPERCAPNIA SNOMED Code(s): 165659939 (4) History of atrial fibrillation Current Visit: No Status: Acute Code(s): Z86.79 - PERSONAL HISTORY OF OTHER DISEASES OF THE CIRCULATORY SYSTEM SNOMED Code(s): 731452284 (5) Sepsis Current Visit: No Status: Acute Code(s): A41.9 - SEPSIS, UNSPECIFIED ORGANISM SNOMED Code(s): 26862581 <Huong Coleman N - Last Filed: 10/13/18 16:27> Subjective Overall clinically improving. He is awake and alert. Continue Lasix. Ostomy functioning. Objective - Vital Signs Vital signs: Vital Signs Temp 98 F 10/13/18 16:00 Pulse 84 10/13/18 16:19 Resp 18 10/13/18 16:00 BP 95/56 10/13/18 12:00 Pulse Ox 96 10/13/18 16:00 Intake & Output 10/12/18 10/13/18 10/13/18 18:59 06:59 18:59 Intake Total 2519 1356 1107 Output Total 1550 2190 1410 Balance 969 -104 -303 Weight 133.1 kg 133.1 kg Intake: IV 1591 1336 607 0.9NS 280 Anidulafungin 200 mg In 200 Sodium Chloride 0.9% 200 ml @ 84 mls/hr IVPB ONCE ONE Rx#:[id number] Dextrose 5% in Water 1, 675 900 000 ml @ 75 mls/hr IV . [id number] [facility] with Sodium Bicarb (1 Meq/ml) 150 ml Rx#:[id number] Mvi, Adult No.4 with Vit 180 K 10 ml Trace (Conc-1Ml/ Dose) 1 ml Potassium Phosphate 15 mmol Sodium Acetate 20 meq Potassium Chloride 30 meq Magnesium Sulfate gm 1 gm Calcium Gluconate 1 gm In Amino Acid 4.25%-D10w 1,000 ml @ 65 mls/hr IV .[id number] [facility] Rx#:[id number] Piperacillin-Tazobactam 3 200 100 100 .375 gm In Sodium Chloride 0.9% 100 ml @ 25 mls/hr IVPB Q8HR [facility] Rx# :[id number] Potassium Chloride 20 meq 150 In Water For Injection 1 100ml.bag @ 50 mls/hr IVPB Q2H [facility] Rx#: [id number] Sodium Chloride 0.9% 1, 150 000 ml @ 50 mls/hr IV . Q20H [facility] Rx#:[id number] metroNIDAZOLE-NS PMX 500 200 100 200 mg In Saline 1 100ml.bag @ 100 mls/hr IVPB Q6HR [facility] Rx#:[id number] pressure bag 36 36 27 Intake, IV Titration 568 100 Amount Anidulafungin 100 mg In 100 Sodium Chloride 0.9% 100 ml @ 84 mls/hr IVPB DAILY [facility] Rx#:[id number] Mvi, Adult No.4 with Vit 568 K 10 ml Trace (Conc-1Ml/ Dose) 1 ml Potassium Phosphate 15 mmol Sodium Acetate 20 meq Potassium Chloride 50 meq Magnesium Sulfate gm 1 gm Calcium Gluconate 1 gm In Amino Acid 4.25%-D10w 1,000 ml @ 15 mls/hr IV .Q24H [facility] Rx#:[id number] Tube Feeding 270 20 300 Other 90 100 Output: Drainage 50 20 Right Abdomen 20 Right Lower Abdomen 50 0 Urine 1550 2140 1290 Stool 100 Other: Voiding Method Indwelling Catheter Indwelling Catheter Indwelling Catheter ABP, PAP, CO, CI - Last Documented Arterial Blood Pressure 103/48 - Labs CBC & Chem 7: 10/13/18 05:30 10/13/18 05:30 Labs: Abnormal Lab Results - Last 24 Hours (Table) 10/12/18 10/12/18 10/13/18 Range/Units 18:03 23:48 05:12 WBC (3.8-10.6) k/uL RBC (4.30-5.90) m/uL Hgb (13.0-17.5) gm/dL Hct (39.0-53.0) % RDW (11.5-15.5) % ABG pH 7.55 H (7.35-7.45) ABG pCO2 26 L (35-45) mmHg Chloride (98-107) mmol/L Carbon Dioxide (22-30) mmol/L BUN (9-20) mg/dL Glucose (74-99) mg/dL POC Glucose (mg/dL) 156 H 181 H (75-99) mg/dL Calcium (8.4-10.2) mg/dL Total Bilirubin (0.2-1.3) mg/dL AST (17-59) U/L Total Protein (6.3-8.2) g/dL Albumin (3.5-5.0) g/dL 10/13/18 10/13/18 10/13/18 Range/Units 05:30 05:30 06:17 WBC 15.2 H (3.8-10.6) k/uL RBC 2.48 L (4.30-5.90) m/uL Hgb 8.0 L (13.0-17.5) gm/dL Hct 24.0 L (39.0-53.0) % RDW 18.8 H (11.5-15.5) % ABG pH (7.35-7.45) ABG pCO2 (35-45) mmHg Chloride 113 H (98-107) mmol/L Carbon Dioxide 19 L (22-30) mmol/L BUN 45 H (9-20) mg/dL Glucose 127 H (74-99) mg/dL POC Glucose (mg/dL) 139 H (75-99) mg/dL Calcium 7.2 L (8.4-10.2) mg/dL Total Bilirubin 3.0 H (0.2-1.3) mg/dL AST 87 H (17-59) U/L Total Protein 5.2 L (6.3-8.2) g/dL Albumin 2.2 L (3.5-5.0) g/dL 10/13/18 Range/Units 11:52 WBC (3.8-10.6) k/uL RBC (4.30-5.90) m/uL Hgb (13.0-17.5) gm/dL Hct (39.0-53.0) % RDW (11.5-15.5) % ABG pH (7.35-7.45) ABG pCO2 (35-45) mmHg Chloride (98-107) mmol/L Carbon Dioxide (22-30) mmol/L BUN (9-20) mg/dL Glucose (74-99) mg/dL POC Glucose (mg/dL) 124 H (75-99) mg/dL Calcium (8.4-10.2) mg/dL Total Bilirubin (0.2-1.3) mg/dL AST (17-59) U/L Total Protein (6.3-8.2) g/dL Albumin (3.5-5.0) g/dL Microbiology - Last 24 Hours (Table) 10/12/18 09:50 Blood Culture - Preliminary Blood No Growth after 24 hours 10/12/18 09:47 Blood Culture - Preliminary Blood No Growth after 24 hours Assessment and Plan (1) Respiratory failure Current Visit: Yes Status: Acute Code(s): J96.90 - RESPIRATORY FAILURE, UNSP, UNSP W HYPOXIA OR HYPERCAPNIA SNOMED Code(s): 206672861 (2) Perforation of sigmoid colon due to diverticulitis Current Visit: Yes Status: Acute Code(s): K57.20 - DVTRCLI OF LG INT W PERFORATION AND ABSCESS W/O BLEEDING SNOMED Code(s): 9456825379423826 (3) Acute exacerbation of chronic obstructive airways disease Current Visit: No Status: Acute Code(s): J44.1 - CHRONIC OBSTRUCTIVE PULMONARY DISEASE W (ACUTE) EXACERBATION SNOMED Code(s): 871978844 (4) Diabetes Current Visit: No Status: Acute Code(s): E11.9 - TYPE 2 DIABETES MELLITUS WITHOUT COMPLICATIONS SNOMED Code(s): 11532843 (5) HTN (hypertension) Current Visit: No Status: Acute Code(s): I10 - ESSENTIAL (PRIMARY) HYPERTENSION SNOMED Code(s): 54279047 (6) Sepsis Current Visit: No Status: Acute Code(s): A41.9 - SEPSIS, UNSPECIFIED ORGANISM SNOMED Code(s): 47583686
[2018-10-13 11:56] LABS: Glucose,Whole Blood 124 mg/dL (75-99)
--- NOTE | 2018-10-13 14:01 | PN ---
PROGRESS NOTE DATE OF SERVICE: 10/13/2018 REASON FOR FOLLOWUP: Abdominal abscess from ruptured diverticulitis and new fever. INTERVAL HISTORY: The patient overall feels better and has improved. His temperature has been 99.8 compared to 100.6 yesterday. Patient is hemodynamically stable, seemed to be more awake, alert, breathing comfortably on O2 collar. On examination, blood pressure 103/48 with a pulse of 87, temperature 99.8. He is 96% on 50% FiO2. General description is an elderly male, lying in bed in no distress. RESPIRATORY SYSTEM: Unlabored breathing, clear to auscultation anteriorly. HEART: S1, S2. Regular rate and rhythm. ABDOMEN: Soft, no tenderness. LABS: Hemoglobin 8, white count 15.2, BUN of 45, creatinine 1.10. Blood culture repeat has been negative so far. DIAGNOSTIC IMPRESSION AND PLAN: Patient with abdominal abscess from ruptured diverticulitis, status post diverting colostomy in this patient who did have a new fever for which blood culture had been repeated. was added yesterday to continue in addition to Zosyn. Will monitor his clinical course closely. Family the bedside, questions were answered. MMODL / IJN: [id number] /
--- NOTE | 2018-10-13 15:41 | P.PN ---
Subjective Progress Note Date: 10/13/18 On today's evaluation of 72,[id number] I saw this patient preoperatively. The patient was in a state that is essentially similar compared to yesterday. The patient was given a sedation holiday he was looking well however after being given a spontaneous breathing trial the patient was getting more tachypneic and tachycardic and for that reason the tidal was discontinued and the plan is to proceed with a PEG and trach insertion today. This morning, the patient is on a mechanical ventilator with a tidal volume of 500 and FiO2 of 40% and a PEEP of 5 with a rate of 20. Chest x-ray shows no major interval change. The patient is still on TPN for nutritional support. Ostomy site is unchanged and there is no functionality were output in his colostomy. No abdominal distention. He has a right upper extremity PICC line which is in place and exit site is dry clean and intact. The patient is well sedated this morning. He is afebrile and hemodynamically stable. He is on no pressors. His renal function is stable with a creatinine of 1.0. The rest of the electrodes are all within normal limits. His white cell count is at 18.3. He is receiving TPN at the rate of 65 ML's an hour. The patient's cardiac rhythm is sinus. The patient was taken to the operating room this afternoon. After arriving back to the ICU, he had a brief hypoxemia and inability to ventilate the patient appropriately. Was noted that the tracheostomy tube was given the right mainstem bronchus. Immediately the tracheostomy tube was pulled out and oxidation improved following that. Subsequent blood gases were noted. Chest x-ray was noted. Tracheostomy currently is in the distal trachea probably around 1 cm above the lisbeth. His adequate ventilation both lungs. The patient is still receiving TPN. Active site is clean. Hemodynamically stable. He is on maintenance fluid of 0.9 at the rate of 50 mL an hour and the patient is producing adequate urine output in the order of 50-80 mL an hour. On 10/11/2018 I'm seeing this patient in the intensive care unit. The patient is post PEG and trach insertion yesterday without any significant complication. This morning it is being gradually weaned off the sedation and the patient is being weaned off the propofol for now. He is opening his eyes however he is not following any commands at this point in time. Is quite successful a mechanical ventilator. The patient currently is on assist control mode of ventilation. Current vent setting includes a tidal volume of 500 with an FiO2 of 50% and a PEEP of 5 and the rate of 20. I switched him to a VC plus mode and subsequently to the tidal volume to 659 that the patient had a high minute ventilation and he was taken very high tidal volumes along with high respiratory rates. This may the patient much more comfortable dropped his respiratory rate and he became more success with the mechanical ventilator. The chest x-ray from today shows some increased vascular marking and small effusions. I was extubated within about his inability to have any bowel movements and the functionality of the colostomy was of a question and the patient has been on TPN since his surgery. For all this reasons, I discussed the case with the general surgeon and would proceed with a CAT scan of the abdomen and pelvis with oral and IV contrast. The CAT scan showed gastrostomy tube in place, right lower quadrant drainage catheter is in place, and there is evidence of ascites and mild degree of fluid within the abdomen and pelvis. There was an incidental left lower quadrant colostomy. The colostomy segment appeared to be thickened. Contrast is seen within the small bowel distally with contrast noted within the rectosigmoid region and the anastomotic site. No evidence of any free air or abscess at this point in time. The lung bases showed atelectatic changes and small pleural effusions. The patient is still on TPN for nutritional support. The patient is on Zosyn. The patient is on Flagyl. The patient is on DuoNeb the right treatment [id number]. It was noted that the patient is having increased swelling in the upper and lower extremities and the patient will be started on Lasix 40 mg every 12 hours. This would optimize his fluid balance. On 10/12/2018 I'm seeing this patient for a follow-up. The patient is awake off sedation. The patient is still on a mechanical ventilator. On today's evaluation he is on assist-control mode at a tidal volume of 550 with a rate of 26 FiO2 of 50% and a PEEP of 5. Chest x-rays stable and he shows indwelling tubes and catheters that are unchanged compared to yesterday. The patient a tracheostomy tube in place. The patient is a small bilateral pleural effusion and pulmonary vascular congestion. The blood gas showed a pH of 7.52 with a pCO2 of 23 and pO2 of 70 with an FiO2 of 50%. He is having low-grade fever. He is a bit acidotic on today's evaluation with a serum bicarb of 18. He is developing an acute kidney injury creatinine of 1.36. White cell count was nonelevated. He is still on it, addition of Zosyn and Flagyl. He has a PICC line. The patient is receiving TPN for nutritional support. Enteral feeding was also started with a lower rate of vital high protein. No nausea. No vomiting. No abdominal distention. This surgical wound site is dry clean and intact. The wound VAC is still in place. There is some altered in his colostomy bag On 10/13/2018 and seeing this patient for a follow-up. The patient is awake and alert. The patient is currently off sedation. Following simple commands. His sternal mechanical ventilator on assist control mode. Doppler respiratory rate down to 18 as the patient's blood cultures were showing some respiratory alkalosis. He remains on a tidal volume of 550 with an FiO2 of 50% and a PEEP of 5. Morning blood gases showed a pH of 7.55 with a pCO2 of 26 and pO2 of 83. The patient had a follow-up chest x-ray today that showed no significant abnormalities and the findings are essentially chronic and unchanged and stable. The patient is afebrile. The patient had repeat cultures yesterday and the above were essentially negative thus far. Meanwhile, he was seen by infectious disease and antifungal agents was added in the form of Eraxis Meanwhile, his white cell count at 15.2. He remains hemodynamically stable. The renal function is improved compared to yesterday and the creatinine is down to 1.1. Serum bicarb is up to 19. The patient is otherwise doing well. There are plans to transfer this patient to select specialty. As for the abdominal wound, the wound remains unchanged. The wound VAC is in place. Output is considerably low at this point in time. SAMY drain is also in place which is available output. The patient is producing some material in his colostomy bag as the patient is receiving enteral feeding for nutritional support. Currently is off TPN. Objective - Vital Signs Vital signs: Vital Signs Temp 99.8 F H 10/13/18 12:00 Pulse 90 10/13/18 15:00 Resp 24 10/13/18 15:00 BP 95/56 10/13/18 12:00 Pulse Ox 95 10/13/18 15:00 Intake & Output 10/12/18 10/13/18 10/13/18 18:59 06:59 18:59 Intake Total 2519 1356 1107 Output Total 1550 2190 1360 Balance 969 -834 -253 Weight 133.1 kg 133.1 kg Intake: IV 1591 1336 607 0.9NS 280 Anidulafungin 200 mg In 200 Sodium Chloride 0.9% 200 ml @ 84 mls/hr IVPB ONCE ONE Rx#:[id number] Dextrose 5% in Water 1, 675 900 000 ml @ 75 mls/hr IV . [id number] [facility] with Sodium Bicarb (1 Meq/ml) 150 ml Rx#:[id number] Mvi, Adult No.4 with Vit 180 K 10 ml Trace (Conc-1Ml/ Dose) 1 ml Potassium Phosphate 15 mmol Sodium Acetate 20 meq Potassium Chloride 30 meq Magnesium Sulfate gm 1 gm Calcium Gluconate 1 gm In Amino Acid 4.25%-D10w 1,000 ml @ 65 mls/hr IV .[id number] [facility] Rx#:[id number] Piperacillin-Tazobactam 3 200 100 100 .375 gm In Sodium Chloride 0.9% 100 ml @ 25 mls/hr IVPB Q8HR [facility] Rx# :[id number] Potassium Chloride 20 meq 150 In Water For Injection 1 100ml.bag @ 50 mls/hr IVPB Q2H [facility] Rx#: [id number] Sodium Chloride 0.9% 1, 150 000 ml @ 50 mls/hr IV . Q20H [facility] Rx#:[id number] metroNIDAZOLE-NS PMX 500 200 100 200 mg In Saline 1 100ml.bag @ 100 mls/hr IVPB Q6HR [facility] Rx#:[id number] pressure bag 36 36 27 Intake, IV Titration 568 100 Amount Anidulafungin 100 mg In 100 Sodium Chloride 0.9% 100 ml @ 84 mls/hr IVPB DAILY [facility] Rx#:[id number] Mvi, Adult No.4 with Vit 568 K 10 ml Trace (Conc-1Ml/ Dose) 1 ml Potassium Phosphate 15 mmol Sodium Acetate 20 meq Potassium Chloride 50 meq Magnesium Sulfate gm 1 gm Calcium Gluconate 1 gm In Amino Acid 4.25%-D10w 1,000 ml @ 15 mls/hr IV .Q24H [facility] Rx#:[id number] Tube Feeding 270 20 300 Other 90 100 Output: Drainage 50 20 Right Abdomen 20 Right Lower Abdomen 50 0 Urine 1550 2140 1290 Stool 50 Other: Voiding Method Indwelling Catheter Indwelling Catheter Indwelling Catheter ABP, PAP, CO, CI - Last Documented Arterial Blood Pressure 104/48 - Exam Obese, comfortable and the patient is awake and alert at this point in time.. The patient is intubated on a mechanical ventilator. Patient has a Bivona tracheostomy tube in place which is #8. The patient is on a mechanical ventilator. He is calm and comfortable. Head exam was generally normal. There was no scleral icterus or corneal arcus. Mucous membranes were moist. Neck was supple and without jugular venous distension, thyromegaly, or carotid bruits. Carotids were easily palpable bilaterally. There was no adenopathy. The patient is a tracheostomy tube in place at this point in time. Lungs were clear to auscultation and percussion, and with normal diaphragmatic excursion. No wheezes or rales were noted. Breath sounds are diminished in lung bases bilaterally. Cardiac exam revealed the PMI to be normally situated and sized. The rhythm was regular and no extrasystoles were noted during several minutes of auscultation. The first and second heart sounds were normal and physiologic splitting of the second heart sound was noted. There were no murmurs, rubs, clicks, or gallops. Abdomen is soft and the patient has a mid abdominal incision which is dry clean and intact. There is a wound VAC in place. The colostomy site is nonfunctional. I'm unable to see the colostomy edges as the stoma itself it seems to be resected under the skin. No abdominal distention be bowel sounds are hypoactive at this point in time he is no direct tenderness. No rebound tenderness. No guarding. Active site is dry clean and intact at this point in time. Bowel sounds are hypoactive/absent. Examination of the extremities revealed easily palpable radial, femoral and pedal pulses. There was no cyanosis, clubbing and the patient has some +1 pitting edema in both upper and lower extremities. Examination of the skin revealed no evidence of significant rashes, suspicious appearing nevi or other concerning lesions. Neurologically the patient is awake and moving all 4 extremities and following simple commands. The patient has no focal neurological deficit. - Labs CBC & Chem 7: 10/13/18 05:30 10/13/18 05:30 Labs: Abnormal Lab Results - Last 24 Hours (Table) 10/12/18 10/12/18 10/13/18 Range/Units 18:03 23:48 05:12 WBC (3.8-10.6) k/uL RBC (4.30-5.90) m/uL Hgb (13.0-17.5) gm/dL Hct (39.0-53.0) % RDW (11.5-15.5) % ABG pH 7.55 H (7.35-7.45) ABG pCO2 26 L (35-45) mmHg Chloride (98-107) mmol/L Carbon Dioxide (22-30) mmol/L BUN (9-20) mg/dL Glucose (74-99) mg/dL POC Glucose (mg/dL) 156 H 181 H (75-99) mg/dL Calcium (8.4-10.2) mg/dL Total Bilirubin (0.2-1.3) mg/dL AST (17-59) U/L Total Protein (6.3-8.2) g/dL Albumin (3.5-5.0) g/dL 10/13/18 10/13/18 10/13/18 Range/Units 05:30 05:30 06:17 WBC 15.2 H (3.8-10.6) k/uL RBC 2.48 L (4.30-5.90) m/uL Hgb 8.0 L (13.0-17.5) gm/dL Hct 24.0 L (39.0-53.0) % RDW 18.8 H (11.5-15.5) % ABG pH (7.35-7.45) ABG pCO2 (35-45) mmHg Chloride 113 H (98-107) mmol/L Carbon Dioxide 19 L (22-30) mmol/L BUN 45 H (9-20) mg/dL Glucose 127 H (74-99) mg/dL POC Glucose (mg/dL) 139 H (75-99) mg/dL Calcium 7.2 L (8.4-10.2) mg/dL Total Bilirubin 3.0 H (0.2-1.3) mg/dL AST 87 H (17-59) U/L Total Protein 5.2 L (6.3-8.2) g/dL Albumin 2.2 L (3.5-5.0) g/dL 10/13/18 Range/Units 11:52 WBC (3.8-10.6) k/uL RBC (4.30-5.90) m/uL Hgb (13.0-17.5) gm/dL Hct (39.0-53.0) % RDW (11.5-15.5) % ABG pH (7.35-7.45) ABG pCO2 (35-45) mmHg Chloride (98-107) mmol/L Carbon Dioxide (22-30) mmol/L BUN (9-20) mg/dL Glucose (74-99) mg/dL POC Glucose (mg/dL) 124 H (75-99) mg/dL Calcium (8.4-10.2) mg/dL Total Bilirubin (0.2-1.3) mg/dL AST (17-59) U/L Total Protein (6.3-8.2) g/dL Albumin (3.5-5.0) g/dL Microbiology - Last 24 Hours (Table) 10/12/18 09:50 Blood Culture - Preliminary Blood No Growth after 24 hours 10/12/18 09:47 Blood Culture - Preliminary Blood No Growth after 24 hours Assessment and Plan Plan: 1 sigmoid colectomy and diverting colostomy for a perforated diverticular abscess formation. The patient is postop day #12 2 acute hypoxic respiratory failure secondary to above. The patient has failed to wean. Weaning parameters remain poor. Due to failure to wean, the patient was given a tracheostomy tube today. When the process of proceeding with gradually wean in this patient. For now he is postop day #3. The blood gases from today was noted and the patient has a component of acute respiratory alkalosis. The patient is on a tidal volume of 550. Respiratory rate was cut down to 16. 3 abdominal sepsis secondary to E. coli and pseudomonas aeruginosa in addition to a gram-negative anaerobe probably a Bacteroides species. The patient is on a combination of Zosyn and Flagyl. The patient has a functioning colostomy at this point in time and the tube feeds are being gradually advanced. The patient has a viable colostomy. Wound VAC is in place. The drain still in place. 4 hypotension recovered 5 proximal atrial fibrillation current rhythm is sinus 6 history of hypothyroidism 7 history of hyperlipidemia 8 history of hypertension 9 degenerative arthritis 10 low-grade fever 11 chronic anemia with a hemoglobin of 8.0, multifactorial 12 profound weakness/motor weakness both in upper and lower extremities 13 increased edema bilaterally in the upper and lower extremities 14 acute fever with broaden antibiotic coverage with antifungal agents. The patient's subsequent blood cultures are negative for now. Plan Discontinue the bicarb infusion. Continue vent support. Continue same antibiotic coverage. We'll keep antifungal agents as long as the cultures still pending for now. Hemodynamically stable. Continue vent support. Enteral feeding for nutritional support. Monitor the output from the colostomy. Monitor the abdominal wound. Physical therapy. Continue with the diuretics. Condition is still critical and the patient is done significant amount of progress. There is a constellation of stress in this patient to select specialty once his condition is more and further stabilizes. We'll continue to follow. There is a critically care evaluation that was done and more than 30 minutes. Time with Patient: Greater than 30
[2018-10-13] MEDS: SODIUM CHLORIDE 0.9% 1,000 ML IV SCH (16:44)
--- NOTE | 2018-10-13 16:44 | P.PN ---
Subjective patient is intubated and sedated. He had sigmoid colectomy with a drain placement and partial closure of the incision for a perforated acute divert iculitis. He has a wound VAC in place as well. Not able to obtain review of systems secondary to the patient's state 10/10/2018 Patient intubated and sedated. Patient will probably have a trach and PEG as he failed weaning trial several times 10/11/2018 Patient got a trach and PEG yesterday Still sedated 10/12/2018 Patient was spiking fevers He was started on tube feeding yesterday 10/13/2018 No more fevers Patient seems to responding to commands today Objective - Vital Signs Vital signs: Vital Signs Temp 98 F 10/13/18 16:00 Pulse 82 10/13/18 16:30 Resp 18 10/13/18 16:00 BP 95/56 10/13/18 12:00 Pulse Ox 96 10/13/18 16:00 Intake & Output 10/12/18 10/13/18 10/13/18 18:59 06:59 18:59 Intake Total 2519 1356 1107 Output Total 1550 2190 1410 Balance 969 -834 -303 Weight 133.1 kg 133.1 kg Intake: IV 1591 1336 607 0.9NS 280 Anidulafungin 200 mg In 200 Sodium Chloride 0.9% 200 ml @ 84 mls/hr IVPB ONCE ONE Rx#:[id number] Dextrose 5% in Water 1, 675 900 000 ml @ 75 mls/hr IV . [id number] [facility] with Sodium Bicarb (1 Meq/ml) 150 ml Rx#:[id number] Mvi, Adult No.4 with Vit 180 K 10 ml Trace (Conc-1Ml/ Dose) 1 ml Potassium Phosphate 15 mmol Sodium Acetate 20 meq Potassium Chloride 30 meq Magnesium Sulfate gm 1 gm Calcium Gluconate 1 gm In Amino Acid 4.25%-D10w 1,000 ml @ 65 mls/hr IV .[id number] [facility] Rx#:[id number] Piperacillin-Tazobactam 3 200 100 100 .375 gm In Sodium Chloride 0.9% 100 ml @ 25 mls/hr IVPB Q8HR [facility] Rx# :[id number] Potassium Chloride 20 meq 150 In Water For Injection 1 100ml.bag @ 50 mls/hr IVPB Q2H [facility] Rx#: [id number] Sodium Chloride 0.9% 1, 150 000 ml @ 50 mls/hr IV . Q20H [facility] Rx#:[id number] metroNIDAZOLE-NS PMX 500 200 100 200 mg In Saline 1 100ml.bag @ 100 mls/hr IVPB Q6HR [facility] Rx#:[id number] pressure bag 36 36 27 Intake, IV Titration 568 100 Amount Anidulafungin 100 mg In 100 Sodium Chloride 0.9% 100 ml @ 84 mls/hr IVPB DAILY [facility] Rx#:[id number] Mvi, Adult No.4 with Vit 568 K 10 ml Trace (Conc-1Ml/ Dose) 1 ml Potassium Phosphate 15 mmol Sodium Acetate 20 meq Potassium Chloride 50 meq Magnesium Sulfate gm 1 gm Calcium Gluconate 1 gm In Amino Acid 4.25%-D10w 1,000 ml @ 15 mls/hr IV .Q24H [facility] Rx#:[id number] Tube Feeding 270 20 300 Other 90 100 Output: Drainage 50 20 Right Abdomen 20 Right Lower Abdomen 50 0 Urine 1550 2140 1290 Stool 100 Other: Voiding Method Indwelling Catheter Indwelling Catheter Indwelling Catheter ABP, PAP, CO, CI - Last Documented Arterial Blood Pressure 103/48 - Exam On exam, patient status post trach and PEG seems more responsive today HEENT: Conjunctivae normal. eyes normal. NECK: No JVD. No thyroid enlargement. No LNs CARDIOVASCULAR: S1-S2 positive RESPIRATION: Breath sounds diminished in the bases. No rhonchi or crackles. No bronchial breathing. Patient has a trach now ABDOMEN: soft bowel sounds present. Patient has left-sided colostomy with dressing in place. He also had a wound VAC and drained.. Patient has a PEG tube now LEGS: No edema. no swelling NERVOUS SYSTEM: not able to assess the neuro system as the patient is intubated and sedated - Labs CBC & Chem 7: 10/13/18 05:30 10/13/18 05:30 Labs: Abnormal Lab Results - Last 24 Hours (Table) 10/12/18 10/12/18 10/13/18 Range/Units 18:03 23:48 05:12 WBC (3.8-10.6) k/uL RBC (4.30-5.90) m/uL Hgb (13.0-17.5) gm/dL Hct (39.0-53.0) % RDW (11.5-15.5) % ABG pH 7.55 H (7.35-7.45) ABG pCO2 26 L (35-45) mmHg Chloride (98-107) mmol/L Carbon Dioxide (22-30) mmol/L BUN (9-20) mg/dL Glucose (74-99) mg/dL POC Glucose (mg/dL) 156 H 181 H (75-99) mg/dL Calcium (8.4-10.2) mg/dL Total Bilirubin (0.2-1.3) mg/dL AST (17-59) U/L Total Protein (6.3-8.2) g/dL Albumin (3.5-5.0) g/dL 10/13/18 10/13/18 10/13/18 Range/Units 05:30 05:30 06:17 WBC 15.2 H (3.8-10.6) k/uL RBC 2.48 L (4.30-5.90) m/uL Hgb 8.0 L (13.0-17.5) gm/dL Hct 24.0 L (39.0-53.0) % RDW 18.8 H (11.5-15.5) % ABG pH (7.35-7.45) ABG pCO2 (35-45) mmHg Chloride 113 H (98-107) mmol/L Carbon Dioxide 19 L (22-30) mmol/L BUN 45 H (9-20) mg/dL Glucose 127 H (74-99) mg/dL POC Glucose (mg/dL) 139 H (75-99) mg/dL Calcium 7.2 L (8.4-10.2) mg/dL Total Bilirubin 3.0 H (0.2-1.3) mg/dL AST 87 H (17-59) U/L Total Protein 5.2 L (6.3-8.2) g/dL Albumin 2.2 L (3.5-5.0) g/dL 10/13/18 Range/Units 11:52 WBC (3.8-10.6) k/uL RBC (4.30-5.90) m/uL Hgb (13.0-17.5) gm/dL Hct (39.0-53.0) % RDW (11.5-15.5) % ABG pH (7.35-7.45) ABG pCO2 (35-45) mmHg Chloride (98-107) mmol/L Carbon Dioxide (22-30) mmol/L BUN (9-20) mg/dL Glucose (74-99) mg/dL POC Glucose (mg/dL) 124 H (75-99) mg/dL Calcium (8.4-10.2) mg/dL Total Bilirubin (0.2-1.3) mg/dL AST (17-59) U/L Total Protein (6.3-8.2) g/dL Albumin (3.5-5.0) g/dL Microbiology - Last 24 Hours (Table) 10/12/18 09:50 Blood Culture - Preliminary Blood No Growth after 24 hours 10/12/18 09:47 Blood Culture - Preliminary Blood No Growth after 24 hours Assessment and Plan Assessment: - acute respiratory failure status post intubation - Acute perforated enterocolitis status post sigmoid colectomy, with resultant colostomy and SAMY drain. - Septic shock with hypertension status post pressor support - AK I - CAD - Hyperlipidemia - Hypertension - Proximal atrial flutter on Coumadin - Hypothyroidism Plan 10/09/2018 - Patient intubated. Appreciated ICU recommendations - General surgery on board as well. - infectious disease on board for antibiotic recommendations - Nephrology consult for AK I - continue current medical care - We'll follow the patient 10/10/2018 - Patient will probably get trach and PEG this afternoon - Antibiotic recommendations as per infectious disease - We'll continue rest of the medical care - Follow up on the patient 10/11/2018 - CT abdomen and pelvis ordered. If normal or shows improvement patient will be started on tube feedings depending upon surgery recommendations - Continue ICU care and management - We'll follow the patient 10/12/2018 - Patient was started on PEG tube feeding yesterday - He still having fevers. Blood cultures ordered one from the PICC line one from peripheral site. - He is on Zosyn for antibiotic coverage. ID following the patient - We'll continue to monitor the patient 10/13/2018 -Patient on antibiotics and antifungal. Blood cultures repeated and are pending - Tolerating PEG tube feedings - Continue rest of the medical care - We will follow up on the patient
[2018-10-13 17:41] LABS: Glucose,Whole Blood 102 mg/dL (75-99)
[2018-10-13] MEDS: INSULIN DETEMIR (LEVEMIR) 100 UNIT/ML SYR SQ SCH (21:40)
[2018-10-14] MEDS: PIPERACILLIN-TAZOBACTAM 3.375 GM in SODIUM CHLORIDE 0.9% 100 ML IVPB SCH ×3 (00:35→16:10)
[2018-10-14] MEDS: INSULIN ASPART (NovoLOG) 100 UNIT/ML VIAL SQ SCH ×4 (01:00→18:13)
[2018-10-14] MEDS: HYDROmorphone 1 MG/ML 1 ML SYRINGE IVP PRN ×6 (01:03→21:03)
[2018-10-14 01:14] LABS: Glucose,Whole Blood 113 mg/dL (75-99)
[2018-10-14] MEDS: IPRATROPIUM-ALBUTEROL 3 ML NEB INHALATION SCH ×6 (03:11→23:18)
[2018-10-14 04:39] LABS: ABG Base Excess 1.2 mmol/L; ABG HCO3 25 mmol/L (21-25); ABG Oxygen Saturation 94.1 % (94-97); ABG PCO2 32 mmHg (35-45); ABG PH 7.49 (7.35-7.45); ABG PO2 66 mmHg (83-108); ABG TCO2 26 mmol/L (19-24)
[2018-10-14 04:51] LABS: Allen Test Performed? no
[2018-10-14 05:10] LABS: Anisocytosis Slight; Hypochromasia Marked; MCH 31.2 pg (25.0-35.0); MCHC 30.9 g/dL (31.0-37.0); MCV 100.9 fL (80.0-100.0); Macrocytosis Moderate; Mean Platelet Volume 8.7; Platelet Count 270 k/uL (150-450); Poikilocytosis Moderate; RBC 1.97 m/uL (4.30-5.90); RDW 18.3 % (11.5-15.5); WBC 8.6 k/uL (3.8-10.6)
[2018-10-14 05:14] LABS: HCT 19.8 % (39.0-53.0); HGB 6.1 gm/dL (13.0-17.5)
--- NOTE | 2018-10-14 05:38 | XR ---
EXAM: XR Chest, 1 View CLINICAL HISTORY: sob TECHNIQUE: Frontal view of the chest. COMPARISON: 10/13/2018. FINDINGS: Lungs: No change in bibasilar opacities. Pleural space: Pleural effusion, unchanged. No pneumothorax. Heart: Stable appearance of the cardiomediastinal silhouette. Mediastinum: See above. Bones/joints: Unremarkable. Tubes, lines and devices: Indwelling tubes and catheters are unchanged. IMPRESSION: Stable portable chest. Clinical correlation and follow-up until resolution is recommended.
[2018-10-14 06:03] LABS: Glucose,Whole Blood 134 mg/dL (75-99)
[2018-10-14 06:03] LABS: Glucose,Whole Blood 139 mg/dL (75-99)
[2018-10-14 06:18] LABS: Anisocytosis Slight; HCT 26.1 % (39.0-53.0); Hypochromasia Marked; MCH 31.9 pg (25.0-35.0); MCHC 31.8 g/dL (31.0-37.0); MCV 100.1 fL (80.0-100.0); Macrocytosis Slight; Mean Platelet Volume 9.3; Platelet Count 350 k/uL (150-450); Poikilocytosis Moderate; RBC 2.61 m/uL (4.30-5.90); RDW 19.2 % (11.5-15.5); WBC 13.8 k/uL (3.8-10.6)
[2018-10-14 06:19] LABS: HGB 8.3 gm/dL (13.0-17.5)
[2018-10-14 06:20] LABS: Calcium 7.1 mg/dL (8.4-10.2)
[2018-10-14 06:35] LABS: Potassium 2.6 mmol/L (3.5-5.1)
[2018-10-14] MEDS ORDERED: Potassium Replacement Protocol 1 EACH MISC MISCELLANE PRN (06:46)
[2018-10-14] MEDS: metroNIDAZOLE-NS PMX 500 MG in SALINE 1 100ML.BAG IVPB SCH ×3 (07:07→18:15)
[2018-10-14] MEDS: POTASSIUM CHLORIDE 20 MEQ in WATER FOR INJECTION 1 100ML.BAG IVPB SCH ×6 (07:09→23:31)
[2018-10-14 07:21] LABS: Glucose,Whole Blood 128 mg/dL (75-99)
--- NOTE | 2018-10-14 07:32 | XR ---
EXAMINATION TYPE: XR abdomen 1V DATE OF EXAM: 10/14/2018 COMPARISON: NONE HISTORY: Pain TECHNIQUE: One view abdominal series FINDINGS: Exam markedly limited by positioning and artifact. Bilateral lower lobe infiltrate is seen. Small eff usions. Ureters are noted. Suggestion of a gastric feeding tube. There is a drainage catheter overlying the p jenn. Arthropathy of the hips. Contrast is seen within large bowel. Calcifications the pelvis likely are vascular. Anterior rib cage deformities on the right appears chronic. IMPRESSION: 1. Nonspecific abdomen. 2. Bilateral lower lobe infiltrate and pleural effusion.
--- NOTE | 2018-10-14 09:03 | PN ---
PROGRESS NOTE Mr. Martinez is an 83-year-old male who presented with abdominal discomfort and had perforated viscus, underwent diverting colostomy. He has a history of coronary disease status post coronary artery bypass grafting and prior history of atrial fibrillation, atrial flutter. He remains intubated, awake, following commands. Yesterday he had high residual from his PEG tube and the feeding is on hold. He had suctioning done from the tracheostomy. Hemodynamically, he remains stable. He still does not have good output through the colostomy bag. There is no malignant arrhythmia and his blood pressure is stable. He continues to be at this time on aspirin once a day, furosemide 40 mg IV q.12 hours, metoprolol tartrate 25 mg 3 times a day, pravastatin 40 mg daily. PHYSICAL EXAMINATION: Blood pressure 115/60 with a heart rate in 90s. Lungs with decreased air exchange, but no wheezes or rales. Heart irregularly irregular rate and rhythm, S1, S2. No S3 with systolic murmur. No diastolic murmur. ABDOMEN: Soft, obese. Colostomy noted. Hypoactive bowel sounds. Extremities with 1+ edema. LAB DATA: Potassium 2.6, BUN and creatinine 45 and 1.19. Hemoglobin of 8.3, white blood cell of 13.8. His chest x-ray shows no acute changes. His abdominal x-ray shows nonspecific abdominal pattern. IMPRESSION: 1. Status post diverting colostomy for ruptured viscus. 2. Respiratory failure, status post tracheostomy. 3. Status post coronary artery bypass grafting. 4. Atrial fibrillation in the past. Continues to be in sinus mechanism. 5. History of hypertension. 6. Hyperlipidemia. RECOMMENDATION: From the cardiac standpoint, there is no acute changes. I am concerned about the high residual and the elevated white blood cells. He will be further evaluated by the surgical team. In the meantime, we will continue present therapy and depending on his progress, further recommendations will be made. MMODL / IJN: [id number] /
[2018-10-14] MEDS: CHLORHEXIDINE GLUCONATE 15 ML CUP MUCOUS MEM SCH ×2 (09:05→22:11)
[2018-10-14] MEDS: ANIDULAFUNGIN 100 MG in SODIUM CHLORIDE 0.9% 100 ML IVPB SCH (09:05)
[2018-10-14] MEDS: METOPROLOL TARTRATE 25 MG TAB PO SCH ×4 (09:06→22:12)
[2018-10-14] MEDS: PANTOPRAZOLE 40 MG/10 ML VIAL IVP SCH ×2 (09:06→22:11)
[2018-10-14] MEDS: PRAVASTATIN SODIUM 40 MG TAB PO SCH ×2 (09:06→09:40)
[2018-10-14] MEDS: FUROSEMIDE 10 MG/ML 4 ML VIAL IV SCH ×2 (09:06→22:11)
[2018-10-14] MEDS: ASPIRIN 81 MG PO SCH ×2 (09:06→09:40)
--- NOTE | 2018-10-14 09:22 | P.PN ---
Subjective Progress Note Date: 10/14/18 CHIEF COMPLAINT: Perforated diverticulitis HISTORY OF PRESENT ILLNESS: The patient is a 82-year-old male status post colon resection descending colostomy creation for perforated diverticulitis over 2+ weeks. He is in the ICU. He is on full ventilatory support. I was notified by nursing this morning that he had residuals over 400+ mL from tube feeds including regurgitation around his trach. I have recommended hold of tube feeds. No fevers. He is awake. He had moderated diuresis with less generali zed edema. Abdominal Xrays were obtained this morning as a result of events as stated above. ROS: No fevers. No new myocardial ischemia. No strokes. PHYSICAL EXAM: VITAL SIGNS: Reviewed CONSTITUTIONAL: Well developed and in no acute distress. EYES: Conjuctivae without sclera icterus. Extraocular movements grossly intact. HEAD, EARS, NOSE, THROAT: Dry buccal mucosa. Head is atraumatic, normocephalic. No nasal drainage. NECK: Trach intact. RESPIRATORY: Non-labored respirations and equal bilateral excursions. CARDIOVASCULAR: Palpable 2+ radial pulses. Regular rate. Regular rhythm. ABDOMEN: Soft, mild tenderness at the upper abdomen. SAMY is dark sanguinous but scant. Wound VAC present. Ostomy present. MUSCULOSKELTAL: Decreased edema of the lower and upper extremities from 3+ pitti ng edema to over 1+. SKIN: Warm and well perfused. : Urine clear in [place] and yellow. NEUROLOGIC: No focal or lateralizing signs. PSYCH: Awake and alert. STUDIES: Abdominal Xrays personally reviewed with findings of ileus and retained contrast in colon. CLINCAL LABS: Reviewed. Potassium critical low at 2.8 ASSESSMENT: 1. Severe hypokalemia 2. New ileus secondary to severe hypokalemia 3. Vent dependent status 4. S/P trach/PEG 5. History of perforated diverticulitis s/p descending colostomy PLAN: 1. Recommend correction of potassium to greater or equal to 4.0 that should resolve his ileus 2. Please hold tube feeds until potassium is completely corrected, this should be 24hrs. 3. TPN at this time my be held as short duration of holding tube feeds for less than 24hrs anticipated. Objective - Vital Signs Vital signs: Vital Signs Temp 98 F 10/13/18 16:00 Pulse 101 H 10/14/18 08:00 Resp 18 10/14/18 08:00 BP 117/65 10/14/18 08:00 Pulse Ox 90 L 10/14/18 08:00 Intake & Output 10/13/18 10/14/18 10/14/18 18:59 06:59 18:59 Intake Total 1626 986 103 Output Total 1820 2285 80 Balance -194 -1299 23 Weight 133.1 kg 132.3 kg Intake: IV 966 936 103 0.9NS 430 600 50 Piperacillin-Tazobactam 3 200 100 .375 gm In Sodium Chloride 0.9% 100 ml @ 25 mls/hr IVPB Q8HR [facility] Rx# :[id number] Potassium Chloride 20 meq 50 In Water For Injection 1 100ml.bag @ 50 mls/hr IVPB Q2H [facility] Rx#: [id number] metroNIDAZOLE-NS PMX 500 300 200 mg In Saline 1 100ml.bag @ 100 mls/hr IVPB Q6HR [facility] Rx#:[id number] pressure bag 36 36 3 Intake, IV Titration 100 Amount Anidulafungin 100 mg In 100 Sodium Chloride 0.9% 100 ml @ 84 mls/hr IVPB DAILY [facility] Rx#:[id number] Oral 0 Tube Feeding 430 50 Other 130 Output: Gastric Drainage 550 Drainage 20 Right Abdomen 20 Right Lower Abdomen 0 Urine 1650 1735 80 Stool 150 Other: Voiding Method Indwelling Catheter Indwelling Catheter ABP, PAP, CO, CI - Last Documented Arterial Blood Pressure 97/58 - Labs CBC & Chem 7: 10/14/18 06:00 10/14/18 06:00 Labs: Abnormal Lab Results - Last 24 Hours (Table) 10/13/18 10/13/18 10/14/18 Range/Units 11:52 17:38 00:46 WBC (3.8-10.6) k/uL RBC (4.30-5.90) m/uL Hgb (13.0-17.5) gm/dL Hct (39.0-53.0) % MCV (80.0-100.0) fL MCHC (31.0-37.0) g/dL RDW (11.5-15.5) % ABG pH (7.35-7.45) ABG pCO2 (35-45) mmHg ABG pO2 (83-108) mmHg ABG Total CO2 (19-24) mmol/L Potassium (3.5-5.1) mmol/L Chloride (98-107) mmol/L BUN (9-20) mg/dL Glucose (74-99) mg/dL POC Glucose (mg/dL) 124 H 102 H 113 H (75-99) mg/dL Calcium (8.4-10.2) mg/dL 10/14/18 10/14/18 10/14/18 Range/Units 04:35 04:38 05:59 WBC (3.8-10.6) k/uL RBC 1.97 L (4.30-5.90) m/uL Hgb 6.1 L* D (13.0-17.5) gm/dL Hct 19.8 L* (39.0-53.0) % MCV 100.9 H (80.0-100.0) fL MCHC 30.9 L (31.0-37.0) g/dL RDW 18.3 H (11.5-15.5) % ABG pH 7.49 H (7.35-7.45) ABG pCO2 32 L (35-45) mmHg ABG pO2 66 L (83-108) mmHg ABG Total CO2 26 H (19-24) mmol/L Potassium (3.5-5.1) mmol/L Chloride (98-107) mmol/L BUN (9-20) mg/dL Glucose (74-99) mg/dL POC Glucose (mg/dL) 139 H (75-99) mg/dL Calcium (8.4-10.2) mg/dL 10/14/18 10/14/18 10/14/18 Range/Units 06:00 06:00 06:00 WBC 13.8 H (3.8-10.6) k/uL RBC 2.61 L (4.30-5.90) m/uL Hgb 8.3 L D (13.0-17.5) gm/dL Hct 26.1 L (39.0-53.0) % MCV 100.1 H (80.0-100.0) fL MCHC (31.0-37.0) g/dL RDW 19.2 H (11.5-15.5) % ABG pH (7.35-7.45) ABG pCO2 (35-45) mmHg ABG pO2 (83-108) mmHg ABG Total CO2 (19-24) mmol/L Potassium 2.6 L* (3.5-5.1) mmol/L Chloride 111 H (98-107) mmol/L BUN 45 H (9-20) mg/dL Glucose 122 H (74-99) mg/dL POC Glucose (mg/dL) 134 H (75-99) mg/dL Calcium 7.1 L (8.4-10.2) mg/dL 10/14/18 Range/Units 06:55 WBC (3.8-10.6) k/uL RBC (4.30-5.90) m/uL Hgb (13.0-17.5) gm/dL Hct (39.0-53.0) % MCV (80.0-100.0) fL MCHC (31.0-37.0) g/dL RDW (11.5-15.5) % ABG pH (7.35-7.45) ABG pCO2 (35-45) mmHg ABG pO2 (83-108) mmHg ABG Total CO2 (19-24) mmol/L Potassium (3.5-5.1) mmol/L Chloride (98-107) mmol/L BUN (9-20) mg/dL Glucose (74-99) mg/dL POC Glucose (mg/dL) 128 H (75-99) mg/dL Calcium (8.4-10.2) mg/dL Microbiology - Last 24 Hours (Table) 10/12/18 09:50 Blood Culture - Preliminary Blood No Growth after 24 hours 10/12/18 09:47 Blood Culture - Preliminary Blood No Growth after 24 hours Assessment and Plan (1) Respiratory failure Current Visit: Yes Status: Acute Code(s): J96.90 - RESPIRATORY FAILURE, UNSP, UNSP W HYPOXIA OR HYPERCAPNIA SNOMED Code(s): 249238238 (2) Perforation of sigmoid colon due to diverticulitis Current Visit: Yes Status: Acute Code(s): K57.20 - DVTRCLI OF LG INT W PERFORATION AND ABSCESS W/O BLEEDING SNOMED Code(s): 1823593150999375 (3) Acute exacerbation of chronic obstructive airways disease Current Visit: No Status: Acute Code(s): J44.1 - CHRONIC OBSTRUCTIVE PULMONARY DISEASE W (ACUTE) EXACERBATION SNOMED Code(s): 460282416 (4) Diabetes Current Visit: No Status: Acute Code(s): E11.9 - TYPE 2 DIABETES MELLITUS WITHOUT COMPLICATIONS SNOMED Code(s): 61141046 (5) HTN (hypertension) Current Visit: No Status: Acute Code(s): I10 - ESSENTIAL (PRIMARY) HYPERTENSION SNOMED Code(s): 61237683 (6) Sepsis Current Visit: No Status: Acute Code(s): A41.9 - SEPSIS, UNSPECIFIED ORG ANISM SNOMED Code(s): 78766923
[2018-10-14] MEDS: LORazepam 2 MG/ML INJ IV PRN ×2 (12:18→22:11)
[2018-10-14] MEDS: SODIUM CHLORIDE 0.9% 1,000 ML IV SCH ×2 (12:33→22:11)
[2018-10-14 12:40] LABS: Glucose,Whole Blood 88 mg/dL (75-99)
--- NOTE | 2018-10-14 13:16 | P.PN ---
Subjective Progress Note Date: 10/14/18 On today's evaluation of [id number],[phone] I saw this patient preoperatively. The patient was in a state that is essentially similar compared to yesterday. The patient was given a sedation holiday he was looking well however after being given a spontaneous breathing trial the patient was getting more tachypneic and tachycardic and for that reason the tidal was discontinued and the plan is to proceed with a PEG and trach insertion today. This morning, the patient is on a mechanical ventilator with a tidal volume of 500 and FiO2 of 40% and a PEEP of 5 with a rate of 20. Chest x-ray shows no major interval change. The patient is still on TPN for nutritional support. Ostomy site is unchanged and there is no functionality were output in his colostomy. No abdominal distention. He has a right upper extremity PICC line which is in place and exit site is dry clean and intact. The patient is well sedated this morning. He is afebrile and hemodynamically stable. He is on no pressors. His renal function is stable with a creatinine of 1.0. The rest of the electrodes are all within normal limits. His white cell count is at 18.3. He is receiving TPN at the rate of 65 ML's an hour. The patient's cardiac rhythm is sinus. The patient was taken to the operating room this afternoon. After arriving back to the ICU, he had a brief hypoxemia and inability to ventilate the patient appropriately. Was noted that the tracheostomy tube was given the right mainstem bronchus. Immediately the tracheostomy tube was pulled out and oxidation improved following that. Subsequent blood gases were noted. Chest x-ray was noted. Tracheostomy currently is in the distal trachea probably around 1 cm above the lisbeth. His adequate ventilation both lungs. The patient is still receiving TPN. Active site is clean. Hemodynamically stable. He is on maintenance fluid of 0.9 at the rate of 50 mL an hour and the patient is producing adequate urine output in the order of 50-80 mL an hour. On 10/11/2018 I'm seeing this patient in the intensive care unit. The patient is post PEG and trach insertion yesterday without any significant complication. This morning it is being gradually weaned off the sedation and the patient is being weaned off the propofol for now. He is opening his eyes however he is not following any commands at this point in time. Is quite successful a mechanical ventilator. The patient currently is on assist control mode of ventilation. Current vent setting includes a tidal volume of 500 with an FiO2 of 50% and a PEEP of 5 and the rate of 20. I switched him to a VC plus mode and subsequently to the tidal volume to 659 that the patient had a high minute ventilation and he was taken very high tidal volumes along with high respiratory rates. This may the patient much more comfortable dropped his respiratory rate and he became more success with the mechanical ventilator. The chest x-ray from today shows some increased vascular marking and small effusions. I was extubated within about his inability to have any bowel movements and the functionality of the colostomy was of a question and the patient has been on TPN since his surgery. For all this reasons, I discussed the case with the general surgeon and would proceed with a CAT scan of the abdomen and pelvis with oral and IV contrast. The CAT scan showed gastrostomy tube in place, right lower quadrant drainage catheter is in place, and there is evidence of ascites and mild degree of fluid within the abdomen and pelvis. There was an incidental left lower quadrant colostomy. The colostomy segment appeared to be thickened. Contrast is seen within the small bowel distally with contrast noted within the rectosigmoid region and the anastomotic site. No evidence of any free air or abscess at this point in time. The lung bases showed atelectatic changes and small pleural effusions. The patient is still on TPN for nutritional support. The patient is on Zosyn. The patient is on Flagyl. The patient is on DuoNeb the right treatment [id number]. It was noted that the patient is having increased swelling in the upper and lower extremities and the patient will be started on Lasix 40 mg every 12 hours. This would optimize his fluid balance. On 10/12/2018 I'm seeing this patient for a follow-up. The patient is awake off sedation. The patient is still on a mechanical ventilator. On today's evaluation he is on assist-control mode at a tidal volume of 550 with a rate of 26 FiO2 of 50% and a PEEP of 5. Chest x-rays stable and he shows indwelling tubes and catheters that are unchanged compared to yesterday. The patient a tracheostomy tube in place. The patient is a small bilateral pleural effusion and pulmonary vascular congestion. The blood gas showed a pH of 7.52 with a pCO2 of 23 and pO2 of 70 with an FiO2 of 50%. He is having low-grade fever. He is a bit acidotic on today's evaluation with a serum bicarb of 18. He is developing an acute kidney injury creatinine of 1.36. White cell count was nonelevated. He is still on it, addition of Zosyn and Flagyl. He has a PICC line. The patient is receiving TPN for nutritional support. Enteral feeding was also started with a lower rate of vital high protein. No nausea. No vomiting. No abdominal distention. This surgical wound site is dry clean and intact. The wound VAC is still in place. There is some altered in his colostomy bag On 10/13/2018 and seeing this patient for a follow-up. The patient is awake and alert. The patient is currently off sedation. Following simple commands. His sternal mechanical ventilator on assist control mode. Doppler respiratory rate down to 18 as the patient's blood cultures were showing some respiratory alkalosis. He remains on a tidal volume of 550 with an FiO2 of 50% and a PEEP of 5. Morning blood gases showed a pH of 7.55 with a pCO2 of 26 and pO2 of 83. The patient had a follow-up chest x-ray today that showed no significant abnormalities and the findings are essentially chronic and unchanged and stable. The patient is afebrile. The patient had repeat cultures yesterday and the above were essentially negative thus far. Meanwhile, he was seen by infectious disease and antifungal agents was added in the form of Eraxis Meanwhile, his white cell count at 15.2. He remains hemodynamically stable. The renal function is improved compared to yesterday and the creatinine is down to 1.1. Serum bicarb is up to 19. The patient is otherwise doing well. There are plans to transfer this patient to select specialty. As for the abdominal wound, the wound remains unchanged. The wound VAC is in place. Output is considerably low at this point in time. SAMY drain is also in place which is available output. The patient is producing some material in his colostomy bag as the patient is receiving enteral feeding for nutritional support. Currently is off TPN. On 10/14/2018 I'm seeing this patient for a follow-up. The patient is awake and alert. Noted the patient was started on diuretics yesterday. His potassium level came down and this probably contributed to his ileus. Earlier this morning the patient abdominal distention and emesis. 2 feeds were discontinued. Prednisone the abdomen was done and it showed some ileus. Chest x-ray showing some atelectatic changes in the lung bases more so on the right. He is afebrile. He is on a combination of antibiotics including Flagyl and Zosyn and Eraxis. He is awake and he is hemodynamically stable. He is still on a mechanical ventilator.The patient otherwise is awake. Abdominal wound is unchanged compared to yesterday. Wound VAC is in place. Minimal amount of gas in the colostomy bag. No erythema. No drainage. No significant distention this point in time. The tube feeds were placed on hold. General surgeries to evaluate this patient. He is wide awake and alert. He continues to be on an assist-control mode of ventilation without any changes in his vent setting. Potassium level is being replaced is down to 2.6. Objective - Vital Signs Vital signs: Vital Signs Temp 98.3 F 10/14/18 12:00 Pulse 92 10/14/18 13:00 Resp 19 10/14/18 13:00 BP 102/57 10/14/18 13:00 Pulse Ox 97 10/14/18 13:00 Intake & Output 10/13/18 10/14/18 10/14/18 18:59 06:59 18:59 Intake Total 1626 986 621 Output Total 1820 2285 980 Balance -194 -1299 -359 Weight 133.1 kg 132.3 kg Intake: IV 966 936 621 0.9NS 430 600 100 Piperacillin-Tazobactam 3 200 100 100 .375 gm In Sodium Chloride 0.9% 100 ml @ 25 mls/hr IVPB Q8HR [facility] Rx# :[id number] Potassium Chloride 20 meq 300 In Water For Injection 1 100ml.bag @ 50 mls/hr IVPB Q2H [facility] Rx#: [id number] metroNIDAZOLE-NS PMX 500 300 200 100 mg In Saline 1 100ml.bag @ 100 mls/hr IVPB Q6HR [facility] Rx#:[id number] pressure bag 36 36 21 Intake, IV Titration 100 Amount Anidulafungin 100 mg In 100 Sodium Chloride 0.9% 100 ml @ 84 mls/hr IVPB DAILY [facility] Rx#:[id number] Oral 0 Tube Feeding 430 50 Other 130 Output: Gastric Drainage 550 Drainage 20 Right Abdomen 20 Right Lower Abdomen 0 Urine 1650 1735 980 Stool 150 Other: Voiding Method Indwelling Catheter Indwelling Catheter Indwelling Catheter ABP, PAP, CO, CI - Last Documented Arterial Blood Pressure 96/43 - Exam Obese, comfortable and the patient is awake and alert at this point in time.. The patient is intubated on a mechanical ventilator. Patient has a Bivona tracheostomy tube in place which is #8. The patient is on a mechanical venti lator. He is calm and comfortable. Head exam was generally normal. There was no scleral icterus or corneal arcus. Mucous membranes were moist. Neck was supple and without jugular venous distension, thyromegaly, or carotid bruits. Carotids were easily palpable bilaterally. There was no adenopathy. The patient is a tracheostomy tube in place at this point in time. Lungs were clear to auscultation and percussion, and with normal diaphragmatic excursion. No wheezes or rales were noted. Breath sounds are diminished in lung bases bilaterally. Cardiac exam revealed the PMI to be normally situated and sized. The rhythm was regular and no extrasystoles were noted during several minutes of auscultation. The first and second heart sounds were normal and physiologic splitting of the second heart sound was noted. There were no murmurs, rubs, clicks, or gallops. Abdomen is soft and the patient has a mid abdominal incision which is dry clean and intact. There is a wound VAC in place. The colostomy site is nonfunctional. I'm unable to see the colostomy edges as the stoma itself it seems to be resected under the skin. No abdominal distention be bowel sounds are hypoactive at this point in time he is no direct tenderness. No rebound tenderness. No guarding. Active site is dry clean and intact at this point in time. Bowel sounds are hypoactive/absent. Examination of the extremities revealed easily palpable radial, femoral and pedal pulses. There was no cyanosis, clubbing and the patient has some +1 pitting edema in both upper and lower extremities. Examination of the skin revealed no evidence of significant rashes, suspicious appearing nevi or other concerning lesions. Neurologically the patient is awake and moving all 4 extremities and following simple commands. The patient has no focal neurological deficit. - Labs CBC & Chem 7: 10/14/18 06:00 10/14/18 06:00 Labs: Abnormal Lab Results - Last 24 Hours (Table) 10/13/18 10/14/18 10/14/18 Range/Units 17:38 00:46 04:35 WBC (3.8-10.6) k/uL RBC 1.97 L (4.30-5.90) m/uL Hgb 6.1 L* D (13.0-17.5) gm/dL Hct 19.8 L* (39.0-53.0) % MCV 100.9 H (80.0-100.0) fL MCHC 30.9 L (31.0-37.0) g/dL RDW 18.3 H (11.5-15.5) % ABG pH (7.35-7.45) ABG pCO2 (35-45) mmHg ABG pO2 (83-108) mmHg ABG Total CO2 (19-24) mmol/L Potassium (3.5-5.1) mmol/L Chloride (98-107) mmol/L BUN (9-20) mg/dL Glucose (74-99) mg/dL POC Glucose (mg/dL) 102 H 113 H (75-99) mg/dL Calcium (8.4-10.2) mg/dL 10/14/18 10/14/18 10/14/18 Range/Units 04:38 05:59 06:00 WBC (3.8-10.6) k/uL RBC (4.30-5.90) m/uL Hgb (13.0-17.5) gm/dL Hct (39.0-53.0) % MCV (80.0-100.0) fL MCHC (31.0-37.0) g/dL RDW (11.5-15.5) % ABG pH 7.49 H (7.35-7.45) ABG pCO2 32 L (35-45) mmHg ABG pO2 66 L (83-108) mmHg ABG Total CO2 26 H (19-24) mmol/L Potassium 2.6 L* (3.5-5.1) mmol/L Chloride 111 H (98-107) mmol/L BUN 45 H (9-20) mg/dL Glucose 122 H (74-99) mg/dL POC Glucose (mg/dL) 139 H (75-99) mg/dL Calcium 7.1 L (8.4-10.2) mg/dL 10/14/18 10/14/18 10/14/18 Range/Units 06:00 06:00 06:55 WBC 13.8 H (3.8-10.6) k/uL RBC 2.61 L (4.30-5.90) m/uL Hgb 8.3 L D (13.0-17.5) gm/dL Hct 26.1 L (39.0-53.0) % MCV 100.1 H (80.0-100.0) fL MCHC (31.0-37.0) g/dL RDW 19.2 H (11.5-15.5) % ABG pH (7.35-7.45) ABG pCO2 (35-45) mmHg ABG pO2 (83-108) mmHg ABG Total CO2 (19-24) mmol/L Potassium (3.5-5.1) mmol/L Chloride (98-107) mmol/L BUN (9-20) mg/dL Glucose (74-99) mg/dL POC Glucose (mg/dL) 134 H 128 H (75-99) mg/dL Calcium (8.4-10.2) mg/dL Microbiology - Last 24 Hours (Table) 10/12/18 09:47 Blood Culture - Preliminary Blood No Growth after 48 hours 10/12/18 09:50 Blood Culture - Preliminary Blood No Growth after 48 hours Assessment and Plan Plan: 1 sigmoid colectomy and diverting colostomy for a perforated diverticular abscess formation. The patient is postop day #13 2 acute hypoxic respiratory failure secondary to above. The patient has failed to wean. Weaning parameters remain poor. Due to failure to wean, the patient was given a tracheostomy tube today. When the process of proceeding with gradually wean in this patient. For now he is postop day #4. The pulmonary status is stable for now. Chest x-ray stable. 3 abdominal sepsis secondary to E. coli and pseudomonas aeruginosa in addition to a gram-negative anaerobe probably a Bacteroides species. The patient is on a combination of Zosyn and Flagyl. The patient has a functioning colostomy at this point in time and the tube feeds are being gradually advanced. The patient has a viable colostomy. Wound VAC is in place. The drain still in place. The patient was started on enteral feeding for nutritional support. The patient developed ileus probably due to underlying hypokalemia. Potassium level is down to 2.6 related to diuresis. We'll going to replace the potassium level. Tube feeds are currently on hold. 4 ileus, being monitored 5 proximal atrial fibrillation current rhythm is sinus 6 history of hypothyroidism 7 history of hyperlipidemia 8 history of hypertension 9 degenerative arthritis 10 low-grade fever 11 chronic anemia with a hemoglobin of 8.0, multifactorial 12 profound weakness/motor weakness both in upper and lower extremities 13 increased edema bilaterally in the upper and lower extremities 14 acute fever with broaden antibiotic coverage with antifungal agents. The patient's subsequent blood cultures are negative for now. 15 hypokalemia Plan Replace the potassium level. Keep the tube feeds on hold for the next 24 hours. Continue same antibiotic coverage. Repeat abdominal film and the chest x-ray in a.m. Physical therapy. IV Lasix. Optimize fluid balance. Restart tube feeds in a.m. if clinically improved. We'll continue to follow. He'll be kept in ICU for now. Condition is still critical. Evaluation was on a more than 30 minutes. Time with Patient: Greater than 30
--- NOTE | 2018-10-14 14:02 | P.PN ---
Subjective patient is intubated and sedated. He had sigmoid colectomy with a drain placement and partial closure of the incision for a perforated acute divert iculitis. He has a wound VAC in place as well. Not able to obtain review of systems secondary to the patient's state 10/10/2018 Patient intubated and sedated. Patient will probably have a trach and PEG as he failed weaning trial several times 10/11/2018 Patient got a trach and PEG yesterday Still sedated 10/12/2018 Patient was spiking fevers He was started on tube feeding yesterday 10/13/2018 No more fevers Patient seems to responding to commands today 10/14/2018 Patient more alert and responding to simple commands He does not complain of any chest pain or racing heart does not complain of any belly pain Belly is distended though Objective - Vital Signs Vital signs: Vital Signs Temp 98.3 F 10/14/18 12:00 Pulse 92 10/14/18 13:00 Resp 19 10/14/18 13:00 BP 102/57 10/14/18 13:00 Pulse Ox 97 10/14/18 13:00 Intake & Output 10/13/18 10/14/18 10/14/18 18:59 06:59 18:59 Intake Total 1626 986 621 Output Total 1820 2285 980 Balance -194 -1299 -359 Weight 133.1 kg 132.3 kg Intake: IV 966 936 621 0.9NS 430 600 100 Piperacillin-Tazobactam 3 200 100 100 .375 gm In Sodium Chloride 0.9% 100 ml @ 25 mls/hr IVPB Q8HR [facility] Rx# :[id number] Potassium Chloride 20 meq 300 In Water For Injection 1 100ml.bag @ 50 mls/hr IVPB Q2H [facility] Rx#: [id number] metroNIDAZOLE-NS PMX 500 300 200 100 mg In Saline 1 100ml.bag @ 100 mls/hr IVPB Q6HR [facility] Rx#:[id number] pressure bag 36 36 21 Intake, IV Titration 100 Amount Anidulafungin 100 mg In 100 Sodium Chloride 0.9% 100 ml @ 84 mls/hr IVPB DAILY [facility] Rx#:[id number] Oral 0 Tube Feeding 430 50 Other 130 Output: Gastric Drainage 550 Drainage 20 Right Abdomen 20 Right Lower Abdomen 0 Urine 1650 1735 980 Stool 150 Other: Voiding Method Indwelling Catheter Indwelling Catheter Indwelling Catheter ABP, PAP, CO, CI - Last Documented Arterial Blood Pressure 96/43 - Exam On exam, patient status post trach and PEG seems more responsive today HEENT: Conjunctivae normal. eyes normal. NECK: No JVD. No thyroid enlargement. No LNs CARDIOVASCULAR: S1-S2 positive RESPIRATION: Breath sounds diminished in the bases. No rhonchi or crackles. No bronchial breathing. Patient has a trach now ABDOMEN: soft bowel sounds present. Patient has left-sided colostomy with dressing in place. He also had a wound VAC and drained.. Patient has a PEG tube now LEGS: No edema. no swelling NERVOUS SYSTEM: not able to assess the neuro system as the patient is intubated and sedated - Labs CBC & Chem 7: 10/14/18 06:00 10/14/18 06:00 Labs: Abnormal Lab Results - Last 24 Hours (Table) 10/13/18 10/14/18 10/14/18 Range/Units 17:38 00:46 04:35 WBC (3.8-10.6) k/uL RBC 1.97 L (4.30-5.90) m/uL Hgb 6.1 L* D (13.0-17.5) gm/dL Hct 19.8 L* (39.0-53.0) % MCV 100.9 H (80.0-100.0) fL MCHC 30.9 L (31.0-37.0) g/dL RDW 18.3 H (11.5-15.5) % ABG pH (7.35-7.45) ABG pCO2 (35-45) mmHg ABG pO2 (83-108) mmHg ABG Total CO2 (19-24) mmol/L Potassium (3.5-5.1) mmol/L Chloride (98-107) mmol/L BUN (9-20) mg/dL Glucose (74-99) mg/dL POC Glucose (mg/dL) 102 H 113 H (75-99) mg/dL Calcium (8.4-10.2) mg/dL 10/14/18 10/14/18 10/14/18 Range/Units 04:38 05:59 06:00 WBC (3.8-10.6) k/uL RBC (4.30-5.90) m/uL Hgb (13.0-17.5) gm/dL Hct (39.0-53.0) % MCV (80.0-100.0) fL MCHC (31.0-37.0) g/dL RDW (11.5-15.5) % ABG pH 7.49 H (7.35-7.45) ABG pCO2 32 L (35-45) mmHg ABG pO2 66 L (83-108) mmHg ABG Total CO2 26 H (19-24) mmol/L Potassium 2.6 L* (3.5-5.1) mmol/L Chloride 111 H (98-107) mmol/L BUN 45 H (9-20) mg/dL Glucose 122 H (74-99) mg/dL POC Glucose (mg/dL) 139 H (75-99) mg/dL Calcium 7.1 L (8.4-10.2) mg/dL 10/14/18 10/14/18 10/14/18 Range/Units 06:00 06:00 06:55 WBC 13.8 H (3.8-10.6) k/uL RBC 2.61 L (4.30-5.90) m/uL Hgb 8.3 L D (13.0-17.5) gm/dL Hct 26.1 L (39.0-53.0) % MCV 100.1 H (80.0-100.0) fL MCHC (31.0-37.0) g/dL RDW 19.2 H (11.5-15.5) % ABG pH (7.35-7.45) ABG pCO2 (35-45) mmHg ABG pO2 (83-108) mmHg ABG Total CO2 (19-24) mmol/L Potassium (3.5-5.1) mmol/L Chloride (98-107) mmol/L BUN (9-20) mg/dL Glucose (74-99) mg/dL POC Glucose (mg/dL) 134 H 128 H (75-99) mg/dL Calcium (8.4-10.2) mg/dL Microbiology - Last 24 Hours (Table) 10/12/18 09:47 Blood Culture - Preliminary Blood No Growth after 48 hours 10/12/18 09:50 Blood Culture - Preliminary Blood No Growth after 48 hours Assessment and Plan Assessment: - acute respiratory failure status post intubation - Acute perforated enterocolitis status post sigmoid colectomy, with resultant colostomy and SAMY drain. - Septic shock with hypertension status post pressor support - Ileus- - AK I - CAD - Hyperlipidemia - Hypertension - Proximal atrial flutter on Coumadin - Hypothyroidism Plan 10/09/2018 - Patient intubated. Appreciated ICU recommendations - General surgery on board as well. - infectious disease on board for antibiotic recommendations - Nephrology consult for AK I - continue current medical care - We'll follow the patient 10/10/2018 - Patient will probably get trach and PEG this afternoon - Antibiotic recommendations as per infectious disease - We'll continue rest of the medical care - Follow up on the patient 10/11/2018 - CT abdomen and pelvis ordered. If normal or shows improvement patient will be started on tube feedings depending upon surgery recommendations - Continue ICU care and management - We'll follow the patient 10/12/2018 - Patient was started on PEG tube feeding yesterday - He still having fevers. Blood cultures ordered one from the PICC line one from peripheral site. - He is on Zosyn for antibiotic coverage. ID following the patient - We'll continue to monitor the patient 10/13/2018 -Patient on antibiotics and antifungal. Blood cultures repeated and are pending - Tolerating PEG tube feedings - Continue rest of the medical care - We will follow up on the patient 10/14/2018 - Continue antibiotics and antifungal. Patient's sputum cultures growing E. coli and pseudomona. Patient is already on Zosyn - Patient was having abdominal distention and was throwing up. Imaging was done which showed ileus he also had low potassium. - Tube feeds on hold for now. - We'll replace potassium and other lites as per ICU protocol - We'll continue to monitor the patient
[2018-10-14 18:11] LABS: Glucose,Whole Blood 89 mg/dL (75-99)
--- NOTE | 2018-10-14 20:17 | PN ---
PROGRESS NOTE DATE OF SERVICE: 10/14/2018. REASON FOR FOLLOWUP: 1. Abdominal abscess from diverticulitis. 2. Fever. INTERVAL HISTORY: The patient overall fever pattern has improved. No fever has been recorded for the last 24 hours. The patient seemed to be more awake and alert, seemed to be slightly agitated per nursing staff. No nausea or vomiting has been reported or any diarrhea. PHYSICAL EXAMINATION: Blood pressure 113/63 with a pulse of 96, temperature 98.3, he is 91% on 50% FiO2. General description is an elderly male lying in bed in no distress. Respiratory system: Unlabored breathing, some coarse breath sounds at the bases. No wheeze. Heart S1, S2. Regular rate and rhythm. ABDOMEN: Soft. No tenderness. LABS: Hemoglobin 8.8, white count 13.8 with a BUN of 25, creatinine is 1.19. Blood cultures have been negative so far. DIAGNOSTIC IMPRESSION AND PLAN: 1. Patient with abdominal abscess from ruptured diverticulitis, status post diverting colostomy in this patient who did have abdominal culture positive for E coli, Pseudomonas and anaerobic gram-negative. Patient currently on Zosyn. 2. The patient did have a new fever. This patient who is high risk of a fungal infection and has been on TPN for which the patient was started on Eraxis because of drug interaction between Diflucan and other medication patient has been on. Patient at this time to continue with solution for fever and monitor his clinical course closely. Family at the bedside. Questions answered. MMODL / IJN: [id number] /
[2018-10-14] MEDS: INSULIN DETEMIR (LEVEMIR) 100 UNIT/ML SYR SQ SCH (22:11)
[2018-10-14] MEDS ORDERED: ACETAMINOPHEN IV (For NPO) 1,000 MG in EMPTY BAG 1 BAG IVPB PRN (23:28)
--- NOTE | 2018-10-15 00:03 | XR ---
History: ITS.REASON XR Reason: increased abd pain Exam: XR ABDOMEN 2 images Comparison: FINDINGS/IMPRESSION: Study is limited by portable technique and apparent body habitus. Appearance of contrast material within nondistended-appearing colon. The bowel gas pattern appears nonspecific. Skin don with appearance of lower abdomen/pelvic drain seen. Possible gastrostomy balloon at the mid stomach bubble.
[2018-10-15 00:23] LABS: Glucose,Whole Blood 88 mg/dL (75-99)
[2018-10-15] MEDS: INSULIN ASPART (NovoLOG) 100 UNIT/ML VIAL SQ SCH ×5 (00:30→23:51)
[2018-10-15] MEDS: metroNIDAZOLE-NS PMX 500 MG in SALINE 1 100ML.BAG IVPB SCH ×4 (00:46→18:52)
[2018-10-15] MEDS: PIPERACILLIN-TAZOBACTAM 3.375 GM in SODIUM CHLORIDE 0.9% 100 ML IVPB SCH ×3 (00:46→16:01)
[2018-10-15] MEDS: LORazepam 2 MG/ML INJ IV PRN ×3 (02:32→14:38)
[2018-10-15] MEDS: IPRATROPIUM-ALBUTEROL 3 ML NEB INHALATION SCH ×6 (03:08→23:21)
[2018-10-15 04:37] LABS: ABG Base Excess 1.4 mmol/L; ABG HCO3 25 mmol/L (21-25); ABG Oxygen Saturation 97.2 % (94-97); ABG PCO2 32 mmHg (35-45); ABG PO2 82 mmHg (83-108); ABG TCO2 26 mmol/L (19-24)
[2018-10-15 05:19] LABS: Allen Test Performed? no
[2018-10-15] MEDS: HYDROmorphone 1 MG/ML 1 ML SYRINGE IVP PRN ×2 (06:23→11:50)
[2018-10-15 06:27] LABS: Glucose,Whole Blood 98 mg/dL (75-99)
[2018-10-15 06:30] LABS: Anisocytosis Slight; HGB 9.2 gm/dL (13.0-17.5); Hypochromasia Marked; MCH 30.8 pg (25.0-35.0); MCHC 30.8 g/dL (31.0-37.0); MCV 100.2 fL (80.0-100.0); Macrocytosis Moderate; Mean Platelet Volume 8.5; Platelet Count 438 k/uL (150-450); Poikilocytosis Moderate; RDW 18.3 % (11.5-15.5); WBC 13.3 k/uL (3.8-10.6)
[2018-10-15 07:01] LABS: Calcium 7.6 mg/dL (8.4-10.2); Potassium 2.8 mmol/L (3.5-5.1)
--- NOTE | 2018-10-15 07:30 | XR ---
EXAMINATION TYPE: XR chest 1V portable DATE OF EXAM: 10/15/2018 COMPARISON: 10/14/2018 HISTORY: Shortness of breath TECHNIQUE: Single frontal view of the chest is obtained. FINDINGS: Bilateral lower lobe consolidations and small pleural effusion. Postsurgical changes seen. Tracheostomy tube and right-sided PICC line. Arthropathy shoulders. IMPRESSION: Bilateral lower lobe infiltrate and small effusion.
--- NOTE | 2018-10-15 07:51 | PN ---
PROGRESS NOTE Mr. Martinez is an 83-year-old male with known history of coronary artery disease, status post coronary artery bypass grafting, history of paroxysmal atrial fibrillation and atrial flutter, who was admitted with ruptured viscus from diverticulitis, underwent diverting colostomy. He remains intubated with a trach and he had a PEG tube. He has continued to have high residual and he has continued to be n.p.o. Hemodynamically stable. There is no evidence of recurrent atrial fibrillation. No tachycardia. He is awake. He continues to be on aspirin once a day, Lasix 40 mg IV q.12 hours, metoprolol tartrate 25 mg 3 times a day, although he has been n.p.o. at this time and pravastatin 40 mg daily. PHYSICAL EXAMINATION: Blood pressure 111/50 with a heart rate in the 100s. LUNGS: Clear, no wheezes anteriorly. HEART: Regular rate and rhythm S1, S2. No S3 with systolic murmur, no diastolic murmur. No rub. ABDOMEN: Soft, obese, colostomy in place. Positive bowel sounds. EXTREMITIES: 1+ to 2 edema bilaterally. LAB DATA: Lab data revealed BUN and creatinine 39, 1.14, potassium 2.8, hemoglobin 9.2, white blood cell of 13.3. Chest x-ray revealed no acute infiltrate. He had an abdominal x- ray done yesterday that showed no acute findings. IMPRESSION: 1. Respiratory failure, remains intubated. 2. Status post diverting colostomy for ruptured viscus with high residual from his PEG tube. The patient has a wound VAC as well as colostomy, although no significant discharge in the colostomy. 3. History of coronary artery disease status post coronary artery bypass grafting. 4. Prior history of atrial fibrillation remains in sinus mechanism, off anticoagulation at this point. 5. History of hyperlipidemia. 6. Hypertension. RECOMMENDATION: I will switch him to IV Lopressor until he is able to take p.o. Otherwise, will continue with his medical regimen. MMODL / IJN: [id number] /
--- NOTE | 2018-10-15 09:29 | P.PN ---
Subjective Progress Note Date: 10/15/18 CHIEF COMPLAINT: Perforated diverticulitis HISTORY OF PRESENT ILLNESS: The patient is a 82-year-old male status post colon resection descending colostomy creation for perforated diverticulitis over 3+ weeks. He is in the ICU. He is on full ventilatory support. He is more comfortable today. Overnight, phone call from nurse reported increased abdominal pain. Multiple abdominal films obtained. This morning, no complaints. Patient was assessed by me and antique refinisher. He is afebrile. Discussion with morning nurse confirms regurgitation with flush of feeding tube as well. ROS: No fevers. No strokes. PHYSICAL EXAM: VITAL SIGNS: Reviewed CONSTITUTIONAL: Well developed and in no acute distress. EYES: Conjuctivae without sclera icterus. Extraocular movements grossly intact. HEAD, EARS, NOSE, THROAT: Dry buccal mucosa. Head is atraumatic, normocephalic. No nasal drainage. NECK: Trach intact. RESPIRATORY: Non-labored respirations and equal bilateral excursions. CARDIOVASCULAR: Palpable 2+ radial pulses. Regular rate. Regular rhythm. ABDOMEN: No peritonitis. Mild tenderness with deep palpation at right upper quadrant. MUSCULOSKELTAL: Lower extremity edema of 1+ SKIN: Warm and well perfused. : Urine clear in [place] and yellow. NEUROLOGIC: No focal or lateralizing signs. PSYCH: Awake and alert. FILMS: New abdominal Xrays personally reviewed today without free air. STUDIES: CT of the abdomen and pelvis with distended gallbladder. Stool in ostomy. PEG tube in lower stomach. CLINCAL LABS: Reviewed. Potassium critical low at 2.8. WBC elevated at 13,000 ASSESSMENT: 1. Severe hypokalemia 2. New ileus secondary to severe hypokalemia 3. Vent dependent status 4. S/P trach/PEG 5. History of perforated diverticulitis s/p descending colostomy 6. Right upper quadrant abdominal pain 7. Gastroesophageal reflux PLAN: 1. Recommend US of gallbadder for right upper quadrant pain 2. Hold tube feeds 3. Aggressive correction of potassium of 2.8 as this exacerbates ileus ADDENDUM: STUDIES: US of gallbladder personally reviewed showing thickened gallbladder wall. Fold of gallbladder present. Overall suspicion of cholecystitis. This is my personal interpretation. Recommend hold tube feeds for now. When resumed, will need adjustment to low fat alternative. Objective - Vital Signs Vital signs: Vital Signs Temp 98.0 F 10/15/18 04:00 Pulse 100 10/15/18 07:51 Resp 24 10/15/18 07:00 BP 117/75 10/15/18 07:00 Pulse Ox 100 10/15/18 07:00 Intake & Output 10/14/18 10/15/18 10/15/18 18:59 06:59 18:59 Intake Total 1086 1039 53 Output Total 1315 2510 60 Balance -229 -1471 -7 Weight 130.4 kg Intake: IV 1086 1039 53 0.9NS 250 600 50 Piperacillin-Tazobactam 3 200 100 .375 gm In Sodium Chloride 0.9% 100 ml @ 25 mls/hr IVPB Q8HR [facility] Rx# :[id number] Potassium Chloride 20 meq 300 In Water For Injection 1 100ml.bag @ 50 mls/hr IVPB Q2H [facility] Rx#: [id number] Potassium Chloride 20 meq 100 200 In Water For Injection 1 100ml.bag @ 50 mls/hr IVPB Q2H [facility] Rx#: [id number] metroNIDAZOLE-NS PMX 500 200 100 mg In Saline 1 100ml.bag @ 100 mls/hr IVPB Q6HR [facility] Rx#:[id number] pressure bag 36 39 3 Output: Gastric Drainage 300 Drainage 30 Right Lower Abdomen 30 Urine 1315 2180 60 Other: Voiding Method Indwelling Catheter Indwelling Catheter ABP, PAP, CO, CI - Last Documented Arterial Blood Pressure 111/54 - Labs CBC & Chem 7: 10/15/18 06:10 10/15/18 06:10 Labs: Abnormal Lab Results - Last 24 Hours (Table) 10/14/18 10/15/18 10/15/18 Range/Units 16:00 04:35 06:10 WBC 13.3 H (3.8-10.6) k/uL RBC 3.00 L (4.30-5.90) m/uL Hgb 9.2 L (13.0-17.5) gm/dL Hct 30.0 L (39.0-53.0) % MCV 100.2 H (80.0-100.0) fL MCHC 30.8 L (31.0-37.0) g/dL RDW 18.3 H (11.5-15.5) % ABG pH 7.50 H (7.35-7.45) ABG pCO2 32 L (35-45) mmHg ABG pO2 82 L (83-108) mmHg ABG Total CO2 26 H (19-24) mmol/L ABG O2 Saturation 97.2 H (94-97) % Sodium (137-145) mmol/L Potassium 2.8 L (3.5-5.1) mmol/L Chloride (98-107) mmol/L BUN (9-20) mg/dL Glucose (74-99) mg/dL Calcium (8.4-10.2) mg/dL 10/15/18 Range/Units 06:10 WBC (3.8-10.6) k/uL RBC (4.30-5.90) m/uL Hgb (13.0-17.5) gm/dL Hct (39.0-53.0) % MCV (80.0-100.0) fL MCHC (31.0-37.0) g/dL RDW (11.5-15.5) % ABG pH (7.35-7.45) ABG pCO2 (35-45) mmHg ABG pO2 (83-108) mmHg ABG Total CO2 (19-24) mmol/L ABG O2 Saturation (94-97) % Sodium 147 H (137-145) mmol/L Potassium 2.8 L (3.5-5.1) mmol/L Chloride 115 H (98-107) mmol/L BUN 39 H (9-20) mg/dL Glucose 102 H (74-99) mg/dL Calcium 7.6 L (8.4-10.2) mg/dL Microbiology - Last 24 Hours (Table) 10/12/18 09:47 Blood Culture - Preliminary Blood No Growth after 48 hours 10/12/18 09:50 Blood Culture - Preliminary Blood No Growth after 48 hours Assessment and Plan (1) Respiratory failure Current Visit: Yes Status: Acute Code(s): J96.90 - RESPIRATORY FAILURE, UNSP, UNSP W HYPOXIA OR HYPERCAPNIA SNOMED Code(s): 441902383 (2) Perforation of sigmoid colon due to diverticulitis Current Visit: Yes Status: Acute Code(s): K57.20 - DVTRCLI OF LG INT W PERFORATION AND ABSCESS W/O BLEEDING SNOMED Code(s): 0630436600883581 (3) Acute exacerbation of chronic obstructive airways disease Current Visit: No Status: Acute Code(s): J44.1 - CHRONIC OBSTRUCTIVE PULMONARY DISEASE W (ACUTE) EXACERBATION SNOMED Code(s): 046879396 (4) Diabetes Current Visit: No Status: Acute Code(s): E11.9 - TYPE 2 DIABETES MELLITUS WITHOUT COMPLICATIONS SNOMED Code(s): 94240215 (5) HTN (hypertension) Current Visit: No Status: Acute Code(s): I10 - ESSENTIAL (PRIMARY) HYPERTENSION SNOMED Code(s): 65777198 (6) Sepsis Current Visit: No Status: Acute Code(s): A41.9 - SEPSIS, UNSPECIFIED ORGANISM SNOMED Code(s): 30380528
[2018-10-15] MEDS: POTASSIUM CHLORIDE 20 MEQ in WATER FOR INJECTION 1 100ML.BAG IVPB SCH ×4 (09:40→22:50)
[2018-10-15] MEDS: METOPROLOL TARTRATE 5 MG/5 ML VIAL IVP SCH ×2 (09:40→16:01)
[2018-10-15] MEDS: CHLORHEXIDINE GLUCONATE 15 ML CUP MUCOUS MEM SCH ×2 (09:40→21:21)
[2018-10-15] MEDS: PANTOPRAZOLE 40 MG/10 ML VIAL IVP SCH ×2 (09:40→21:22)
[2018-10-15] MEDS: ANIDULAFUNGIN 100 MG in SODIUM CHLORIDE 0.9% 100 ML IVPB SCH (09:40)
--- NOTE | 2018-10-15 09:42 | XR ---
EXAMINATION TYPE: XR abdomen 1V DATE OF EXAM: 10/15/2018 COMPARISON: 10/14/2018 HISTORY: Pain TECHNIQUE: One view abdominal series FINDINGS: Study is limited by portable technique and apparent body habitus. The bowel gas pattern appears nonsp ecific. Contrast is seen within the bowel. Skin don with appearance of lower abdomen/pelvic drain seen. Possible gastrostomy balloon at the mid stomach bubble. Artifact limits assessment lung bases suggesting bilateral subsegmental consolidation. Degenerative change of the spine. IMPRESSION: 1. Nonspecific abdomen 2. Bibasilar consolidation.
[2018-10-15] MEDS: PRAVASTATIN SODIUM 40 MG TAB PO SCH (09:54)
[2018-10-15] MEDS: ASPIRIN 81 MG PO SCH (09:54)
[2018-10-15] MEDS: D5-0.45% NACL WITH KCL 20MEQ/L 1,000 ML IV SCH (10:44)
[2018-10-15 12:25] LABS: Glucose,Whole Blood 111 mg/dL (75-99)
--- NOTE | 2018-10-15 13:04 | US ---
EXAMINATION TYPE: US gallbladder DATE OF EXAM: 10/15/2018 COMPARISON: CT CLINICAL HISTORY: abdominal distention. Distention EXAM MEASUREMENTS: Liver Length: 14.1 cm Gallbladder Wall: 0.4 cm CBD: 0.5 cm Right Kidney: 9.9 x 5.4 x 5.3 cm Morbidly obese, immobile, vented pt in ICU, limited exam Pancreas: Obscured by bowel gas Liver: Limited visualization shows no abnormality Gallbladder: Distended, wall thickened Evidence for sonographic Gutierres's sign: Pt vented CBD: wnl Right Kidney: Cortical thinning IMPRESSION: 1. The gallbladder appears to be distended and there is mild wall thickening measuring 4 mm. No defin ite gallstones. Acalculous cholecystitis in the differential diagnosis.
--- NOTE | 2018-10-15 13:16 | P.PN ---
Subjective Progress Note Date: 10/15/18 On today's evaluation of 72,[id number] I saw this patient preoperatively. The patient was in a state that is essentially similar compared to yesterday. The patient was given a sedation holiday he was looking well however after being given a spontaneous breathing trial the patient was getting more tachypneic and tachycardic and for that reason the tidal was discontinued and the plan is to proceed with a PEG and trach insertion today. This morning, the patient is on a mechanical ventilator with a tidal volume of 500 and FiO2 of 40% and a PEEP of 5 with a rate of 20. Chest x-ray shows no major interval change. The patient is still on TPN for nutritional support. Ostomy site is unchanged and there is no functionality were output in his colostomy. No abdominal distention. He has a right upper extremity PICC line which is in place and exit site is dry clean and intact. The patient is well sedated this morning. He is afebrile and hemodynamically stable. He is on no pressors. His renal function is stable with a creatinine of 1.0. The rest of the electrodes are all within normal limits. His white cell count is at 18.3. He is receiving TPN at the rate of 65 ML's an hour. The patient's cardiac rhythm is sinus. The patient was taken to the operating room this afternoon. After arriving back to the ICU, he had a brief hypoxemia and inability to ventilate the patient appropriately. Was noted that the tracheostomy tube was given the right mainstem bronchus. Immediately the tracheostomy tube was pulled out and oxidation improved following that. Subsequent blood gases were noted. Chest x-ray was noted. Tracheostomy currently is in the distal trachea probably around 1 cm above the lisbeth. His adequate ventilation both lungs. The patient is still receiving TPN. Active site is clean. Hemodynamically stable. He is on maintenance fluid of 0.9 at the rate of 50 mL an hour and the patient is producing adequate urine output in the order of 50-80 mL an hour. On 10/11/2018 I'm seeing this patient in the intensive care unit. The patient is post PEG and trach insertion yesterday without any significant complication. This morning it is being gradually weaned off the sedation and the patient is being weaned off the propofol for now. He is opening his eyes however he is not following any commands at this point in time. Is quite successful a mechanical ventilator. The patient currently is on assist control mode of ventilation. Current vent setting includes a tidal volume of 500 with an FiO2 of 50% and a PEEP of 5 and the rate of 20. I switched him to a VC plus mode and subsequently to the tidal volume to 659 that the patient had a high minute ventilation and he was taken very high tidal volumes along with high respiratory rates. This may the patient much more comfortable dropped his respiratory rate and he became more success with the mechanical ventilator. The chest x-ray from today shows some increased vascular marking and small effusions. I was extubated within about his inability to have any bowel movements and the functionality of the colostomy was of a question and the patient has been on TPN since his surgery. For all this reasons, I discussed the case with the general surgeon and would proceed with a CAT scan of the abdomen and pelvis with oral and IV contrast. The CAT scan showed gastrostomy tube in place, right lower quadrant drainage catheter is in place, and there is evidence of ascites and mild degree of fluid within the abdomen and pelvis. There was an incidental left lower quadrant colostomy. The colostomy segment appeared to be thickened. Contrast is seen within the small bowel distally with contrast noted within the rectosigmoid region and the anastomotic site. No evidence of any free air or abscess at this point in time. The lung bases showed atelectatic changes and small pleural effusions. The patient is still on TPN for nutritional support. The patient is on Zosyn. The patient is on Flagyl. The patient is on DuoNeb the right treatment [id number]. It was noted that the patient is having increased swelling in the upper and lower extremities and the patient will be started on Lasix 40 mg every 12 hours. This would optimize his fluid balance. On 10/12/2018 I'm seeing this patient for a follow-up. The patient is awake off sedation. The patient is still on a mechanical ventilator. On today's evaluation he is on assist-control mode at a tidal volume of 550 with a rate of 26 FiO2 of 50% and a PEEP of 5. Chest x-rays stable and he shows indwelling tubes and catheters that are unchanged compared to yesterday. The patient a tracheostomy tube in place. The patient is a small bilateral pleural effusion and pulmonary vascular congestion. The blood gas showed a pH of 7.52 with a pCO2 of 23 and pO2 of 70 with an FiO2 of 50%. He is having low-grade fever. He is a bit acidotic on today's evaluation with a serum bicarb of 18. He is developing an acute kidney injury creatinine of 1.36. White cell count was nonelevated. He is still on it, addition of Zosyn and Flagyl. He has a PICC line. The patient is receiving TPN for nutritional support. Enteral feeding was also started with a lower rate of vital high protein. No nausea. No vomiting. No abdominal distention. This surgical wound site is dry clean and intact. The wound VAC is still in place. There is some altered in his colostomy bag On 10/13/2018 and seeing this patient for a follow-up. The patient is awake and alert. The patient is currently off sedation. Following simple commands. His sternal mechanical ventilator on assist control mode. Doppler respiratory rate down to 18 as the patient's blood cultures were showing some respiratory alkalosis. He remains on a tidal volume of 550 with an FiO2 of 50% and a PEEP of 5. Morning blood gases showed a pH of 7.55 with a pCO2 of 26 and pO2 of 83. The patient had a follow-up chest x-ray today that showed no significant abnormalities and the findings are essentially chronic and unchanged and stable. The patient is afebrile. The patient had repeat cultures yesterday and the above were essentially negative thus far. Meanwhile, he was seen by infectious disease and antifungal agents was added in the form of Eraxis Meanwhile, his white cell count at 15.2. He remains hemodynamically stable. The renal function is improved compared to yesterday and the creatinine is down to 1.1. Serum bicarb is up to 19. The patient is otherwise doing well. There are plans to transfer this patient to select specialty. As for the abdominal wound, the wound remains unchanged. The wound VAC is in place. Output is considerably low at this point in time. SAMY drain is also in place which is available output. The patient is producing some material in his colostomy bag as the patient is receiving enteral feeding for nutritional support. Currently is off TPN. On 10/14/2018 I'm seeing this patient for a follow-up. The patient is awake and alert. Noted the patient was started on diuretics yesterday. His potassium level came down and this probably contributed to his ileus. Earlier this morning the patient abdominal distention and emesis. 2 feeds were discontinued. Prednisone the abdomen was done and it showed some ileus. Chest x-ray showing some atelectatic changes in the lung bases more so on the right. He is afebrile. He is on a combination of antibiotics including Flagyl and Zosyn and Eraxis. He is awake and he is hemodynamically stable. He is still on a mechanical ventilator.The patient otherwise is awake. Abdominal wound is unchanged compared to yesterday. Wound VAC is in place. Minimal amount of gas in the colostomy bag. No erythema. No drainage. No significant distention this point in time. The tube feeds were placed on hold. General surgeries to evaluate this patient. He is wide awake and alert. He continues to be on an assist-control mode of ventilation without any changes in his vent setting. Potassium level is being replaced is down to 2.6. On 10/15/2018 the patient is being seen for a follow-up. Overnight the patient's developed significant abdominal pain. He was given Dilaudid for pain control. The patient is much more comfortable on today's evaluation. The patient had multiple abdominal films. There was no evidence of any free air. White cell count at 13,000. CAT scan of the abdomen and pelvis was done again and it showed distended gallbladder. There was stool in the ostomy. PEG tube is in the lower stomach. Meanwhile the patient's prednisone the abdomen showed some gastric distention and accordingly the tube feeds were held. Furthermore, ultrasound the gallbladder was done and showed distention with some mild gallbladder wall thickening at 4 mm. No evidence of any gallstones. No evidence of any sonographic Gutierres's signs. The patient was echo is at 13.3. He remains on a mechanical ventilation. White cell count is at 13.3. Blood gases showed a pH of 7.5 with a pCO2 of 32 and pO2 of 82. His potassium level is being replaced. After being given its more than 100 mg of potassium chloride, his potassium level is at 2.8. His sodium level is at 147 and the pa tient will be taken off the diuretics knowing that the patient has been in negative fluid balance over the past 24-48 hours. He is awake. Following simple commands. Much more comfortable compared to yesterday terms of his abdominal pain. Objective - Vital Signs Vital signs: Vital Signs Temp 99.1 F 10/15/18 12:00 Pulse 101 H 10/15/18 12:00 Resp 22 10/15/18 12:00 BP 118/74 10/15/18 09:00 Pulse Ox 93 L 10/15/18 12:00 Intake & Output 10/14/18 10/15/18 10/15/18 18:59 06:59 18:59 Intake Total 1086 1039 715 Output Total 1315 2510 465 Balance -229 -1471 250 Weight 130.4 kg Intake: IV 1086 1039 715 0.9NS 250 600 150 D5-0.45% NaCl with KCl 150 20Meq/l 1,000 ml @ 50 mls /hr IV .Q20H KEREN Rx#: [id number] Piperacillin-Tazobactam 3 200 100 100 .375 gm In Sodium Chloride 0.9% 100 ml @ 25 mls/hr IVPB Q8HR KEREN Rx# :[id number] Potassium Chloride 20 meq 300 In Water For Injection 1 100ml.bag @ 50 mls/hr IVPB Q2H [facility] Rx#: [id number] Potassium Chloride 20 meq 100 200 200 In Water For Injection 1 100ml.bag @ 50 mls/hr IVPB Q2H KEREN Rx#: [id number] metroNIDAZOLE-NS PMX 500 200 100 100 mg In Saline 1 100ml.bag @ 100 mls/hr IVPB Q6HR KEREN Rx#:[id number] pressure bag 36 39 15 Output: Gastric Drainage 300 Drainage 30 Right Lower Abdomen 30 Urine 1315 2180 465 Other: Voiding Method Indwelling Catheter Indwelling Catheter Indwelling Catheter ABP, PAP, CO, CI - Last Documented Arterial Blood Pressure 91/46 - Exam Obese, comfortable and the patient is awake and alert at this point in time.. The patient is intubated on a mechanical ventilator. Patient has a Bivona tracheostomy tube in place which is #8. The patient is on a mechanical ventilator. He is calm and comfortable. Head exam was generally normal. There was no scleral icterus or corneal arcus. Mucous membranes were moist. Neck was supple and without jugular venous distension, thyromegaly, or carotid bruits. Carotids were easily palpable bilaterally. There was no adenopathy. The patient is a tracheostomy tube in place at this point in time. Lungs were clear to auscultation and percussion, and with normal diaphragmatic excursion. No wheezes or rales were noted. Breath sounds are diminished in lung bases bilaterally. Cardiac exam revealed the PMI to be normally situated and sized. The rhythm was regular and no extrasystoles were noted during several minutes of auscultation. The first and second heart sounds were normal and physiologic splitting of the second heart sound was noted. There were no murmurs, rubs, clicks, or gallops. Abdomen is soft and the patient has a mid abdominal incision which is dry clean and intact. There is a wound VAC in place. The colostomy site is nonfunctional. I'm unable to see the colostomy edges as the stoma itself it seems to be resected under the skin. No abdominal distention be bowel sounds are hypoactive at this point in time he is no direct tenderness. No rebound tenderness. No guarding. Active site is dry clean and intact at this point in time. Bowel sounds are hypoactive/absent. Examination of the extremities revealed easily palpable radial, femoral and pedal pulses. There was no cyanosis, clubbing and the patient has some +1 pitting edema in both upper and lower extremities. Examination of the skin revealed no evidence of significant rashes, suspicious appearing nevi or other concerning lesions. Neurologically the patient is awake and moving all 4 extremities and following simple commands. The patient has no focal neurological deficit. - Labs CBC & Chem 7: 10/15/18 06:10 10/15/18 06:10 Labs: Abnormal Lab Results - Last 24 Hours (Table) 10/14/18 10/15/18 10/15/18 Range/Units 16:00 04:35 06:10 WBC 13.3 H (3.8-10.6) k/uL RBC 3.00 L (4.30-5.90) m/uL Hgb 9.2 L (13.0-17.5) gm/dL Hct 30.0 L (39.0-53.0) % MCV 100.2 H (80.0-100.0) fL MCHC 30.8 L (31.0-37.0) g/dL RDW 18.3 H (11.5-15.5) % ABG pH 7.50 H (7.35-7.45) ABG pCO2 32 L (35-45) mmHg ABG pO2 82 L (83-108) mmHg ABG Total CO2 26 H (19-24) mmol/L ABG O2 Saturation 97.2 H (94-97) % Sodium (137-145) mmol/L Potassium 2.8 L (3.5-5.1) mmol/L Chloride (98-107) mmol/L BUN (9-20) mg/dL Glucose (74-99) mg/dL POC Glucose (mg/dL) (75-99) mg/dL Calcium (8.4-10.2) mg/dL 10/15/18 10/15/18 Range/Units 06:10 11:59 WBC (3.8-10.6) k/uL RBC (4.30-5.90) m/uL Hgb (13.0-17.5) gm/dL Hct (39.0-53.0) % MCV (80.0-100.0) fL MCHC (31.0-37.0) g/dL RDW (11.5-15.5) % ABG pH (7.35-7.45) ABG pCO2 (35-45) mmHg ABG pO2 (83-108) mmHg ABG Total CO2 (19-24) mmol/L ABG O2 Saturation (94-97) % Sodium 147 H (137-145) mmol/L Potassium 2.8 L (3.5-5.1) mmol/L Chloride 115 H (98-107) mmol/L BUN 39 H (9-20) mg/dL Glucose 102 H (74-99) mg/dL POC Glucose (mg/dL) 111 H (75-99) mg/dL Calcium 7.6 L (8.4-10.2) mg/dL Microbiology - Last 24 Hours (Table) 10/12/18 09:50 Blood Culture - Preliminary Blood No Growth after 72 hours 10/12/18 09:47 Blood Culture - Preliminary Blood No Growth after 72 hours Assessment and Plan Plan: 1 sigmoid colectomy and diverting colostomy for a perforated diverticular abscess formation. The patient is postop day #14. The patient has failed to restart enteral feeding successfully. He was on TPN postop and around 2 days a go started him on enteral feeding for nutritional support. He developed abdominal pain and high residual. This was discontinued. The stomach was quite distended. CAT scan of the abdomen was done. The findings are nonacute. The patient has dilated gallbladder. No evidence of any cholecystitis. The feeding is Currently on hold. We are applying bowel rest. 2 acute hypoxic respiratory failure secondary to above. The patient has failed to wean. Weaning parameters remain poor. Due to failure to wean, the patient was given a tracheostomy tube today. When the process of proceeding with g radually wean in this patient. For now he is postop day #5. The pulmonary status is stable for now. Chest x-ray stable. 3 abdominal sepsis secondary to E. coli and pseudomonas aeruginosa in addition to a gram-negative anaerobe probably a Bacteroides species. The patient is on a combination of Zosyn and Flagyl. The patient has a functioning colostomy at this point in time and the tube feeds are being gradually advanced. The patient has a viable colostomy. Wound VAC is in place. The drain still in place. The patient was started on enteral feeding for nutritional support. The patient d eveloped ileus probably due to underlying hypokalemia. I replaced the potassium level. Unfortunately level is still low at 2.8. Magnesium level is within normal limits. Potassium will be replaced and Lasix will be discontinued. 4 ileus, being monitored 5 proximal atrial fibrillation current rhythm is sinus 6 history of hypothyroidism 7 history of hyperlipidemia 8 history of hypertension 9 degenerative arthritis 10 low-grade fever inactive for now 11 chronic anemia with a hemoglobin of 8.0, multifactorial 12 profound weakness/motor weakness both in upper and lower extremities 13 increased edema bilaterally in the upper and lower extremities 14 acute fever with broaden antibiotic coverage with antifungal agents. The patient's subsequent blood cultures are negative for now. 15 hypokalemia, secondary to above Plan Replace the potassium level. Magnesium level is within normal limits. Put the patient on half-normal dextrose with 20 mg of potassium. Aggressively replace the potassium level. Bowel rest. Continue same antibiotic coverage. CAT scan of the abdomen was noted. X-ray of the abdomen was noted. No need for any surgical intervention at this point in time. Continue vent support. Continue rest of the care and will continue to follow. We'll coordinate with surgery the care and enteral feeding with the next 24 hours after the electrodes are all being replaced. Stop Lasix for now. This evaluation was on a more than 30 minutes. This is a critically care evaluation.
[2018-10-15 18:34] LABS: Glucose,Whole Blood 131 mg/dL (75-99)
--- NOTE | 2018-10-15 20:09 | P.PN ---
Subjective patient is intubated and sedated. He had sigmoid colectomy with a drain placement and partial closure of the incision for a perforated acute divert iculitis. He has a wound VAC in place as well. Not able to obtain review of systems secondary to the patient's state 10/10/2018 Patient intubated and sedated. Patient will probably have a trach and PEG as he failed weaning trial several times 10/11/2018 Patient got a trach and PEG yesterday Still sedated 10/12/2018 Patient was spiking fevers He was started on tube feeding yesterday 10/13/2018 No more fevers Patient seems to responding to commands today 10/14/2018 Patient more alert and responding to simple commands He does not complain of any chest pain or racing heart does not complain of any belly pain Belly is distended though 10/15/2018 Pt awake today and responding Abd still dostended Tube feed on hold for now Potassium low this morning Objective - Vital Signs Vital signs: Vital Signs Temp 98.7 F 10/15/18 16:00 Pulse 105 H 10/15/18 19:35 Resp 22 10/15/18 19:00 BP 111/64 10/15/18 18:00 Pulse Ox 100 10/15/18 19:00 Intake & Output 10/15/18 10/15/18 10/16/18 06:59 18:59 06:59 Intake Total 1039 1386 Output Total 2510 1165 Balance -1471 221 Weight 130.4 kg Intake: IV 1039 1386 0.9NS 600 150 D5-0.45% NaCl with KCl 500 20Meq/l 1,000 ml @ 50 mls /hr IV .Q20H [facility] Rx#: [id number] Piperacillin-Tazobactam 3 100 200 .375 gm In Sodium Chloride 0.9% 100 ml @ 25 mls/hr IVPB Q8HR [facility] Rx# :[id number] Potassium Chloride 20 meq 200 300 In Water For Injection 1 100ml.bag @ 50 mls/hr IVPB Q2H [facility] Rx#: [id number] metroNIDAZOLE-NS PMX 500 100 200 mg In Saline 1 100ml.bag @ 100 mls/hr IVPB Q6HR [facility] Rx#:[id number] pressure bag 39 36 Output: Gastric Drainage 300 Drainage 30 100 Right Lower Abdomen 30 100 Urine 2180 1065 Other: Voiding Method Indwelling Catheter Indwelling Catheter ABP, PAP, CO, CI - Last Documented Arterial Blood Pressure 115/57 - Exam On exam, patient status post trach and PEG seems more responsive today HEENT: Conjunctivae normal. eyes normal. NECK: No JVD. No thyroid enlargement. No LNs CARDIOVASCULAR: S1-S2 positive RESPIRATION: Breath sounds diminished in the bases. No rhonchi or crackles. No bronchial breathing. Patient has a trach now ABDOMEN: soft bowel sounds present. Patient has left-sided colostomy with dressing in place. He also had a wound VAC and drained.. Patient has a PEG tube now LEGS: No edema. no swelling NERVOUS SYSTEM: not able to assess the neuro system as the patient is intubated and sedated - Labs CBC & Chem 7: 10/15/18 06:10 10/15/18 06:10 Labs: Abnormal Lab Results - Last 24 Hours (Table) 10/15/18 10/15/18 10/15/18 Range/Units 04:35 06:10 06:10 WBC 13.3 H (3.8-10.6) k/uL RBC 3.00 L (4.30-5.90) m/uL Hgb 9.2 L (13.0-17.5) gm/dL Hct 30.0 L (39.0-53.0) % MCV 100.2 H (80.0-100.0) fL MCHC 30.8 L (31.0-37.0) g/dL RDW 18.3 H (11.5-15.5) % ABG pH 7.50 H (7.35-7.45) ABG pCO2 32 L (35-45) mmHg ABG pO2 82 L (83-108) mmHg ABG Total CO2 26 H (19-24) mmol/L ABG O2 Saturation 97.2 H (94-97) % Sodium 147 H (137-145) mmol/L Potassium 2.8 L (3.5-5.1) mmol/L Chloride 115 H (98-107) mmol/L BUN 39 H (9-20) mg/dL Glucose 102 H (74-99) mg/dL POC Glucose (mg/dL) (75-99) mg/dL Calcium 7.6 L (8.4-10.2) mg/dL 10/15/18 10/15/18 Range/Units 11:59 18:32 WBC (3.8-10.6) k/uL RBC (4.30-5.90) m/uL Hgb (13.0-17.5) gm/dL Hct (39.0-53.0) % MCV (80.0-100.0) fL MCHC (31.0-37.0) g/dL RDW (11.5-15.5) % ABG pH (7.35-7.45) ABG pCO2 (35-45) mmHg ABG pO2 (83-108) mmHg ABG Total CO2 (19-24) mmol/L ABG O2 Saturation (94-97) % Sodium (137-145) mmol/L Potassium (3.5-5.1) mmol/L Chloride (98-107) mmol/L BUN (9-20) mg/dL Glucose (74-99) mg/dL POC Glucose (mg/dL) 111 H 131 H (75-99) mg/dL Calcium (8.4-10.2) mg/dL Microbiology - Last 24 Hours (Table) 10/12/18 09:50 Blood Culture - Preliminary Blood No Growth after 72 hours 10/12/18 09:47 Blood Culture - Preliminary Blood No Growth after 72 hours Assessment and Plan Assessment: - acute respiratory failure status post intubation - Acute perforated enterocolitis status post sigmoid colectomy, with resultant colostomy and SAMY drain. - Septic shock with hypertension status post pressor support - Ileus - Hypokalemia - AK I - CAD - Hyperlipidemia - Hypertension - Proximal atrial flutter on Coumadin - Hypothyroidism Plan 10/09/2018 - Patient intubated. Appreciated ICU recommendations - General surgery on board as well. - infectious disease on board for antibiotic recommendations - Nephrology consult for AK I - continue current medical care - We'll follow the patient 10/10/2018 - Patient will probably get trach and PEG this afternoon - Antibiotic recommendations as per infectious disease - We'll continue rest of the medical care - Follow up on the patient 10/11/2018 - CT abdomen and pelvis ordered. If normal or shows improvement patient will be started on tube feedings depending upon surgery recommendations - Continue ICU care and management - We'll follow the patient 10/12/2018 - Patient was started on PEG tube feeding yesterday - He still having fevers. Blood cultures ordered one from the PICC line one from peripheral site. - He is on Zosyn for antibiotic coverage. ID following the patient - We'll continue to monitor the patient 10/13/2018 -Patient on antibiotics and antifungal. Blood cultures repeated and are pending - Tolerating PEG tube feedings - Continue rest of the medical care - We will follow up on the patient 10/14/2018 - Continue antibiotics and antifungal. Patient's sputum cultures growing E. coli and pseudomona. Patient is already on Zosyn - Patient was having abdominal distention and was throwing up. Imaging was done which showed ileus he also had low potassium. - Tube feeds on hold for now. - We'll replace potassium and other lites as per ICU protocol - We'll continue to monitor the patient 10/15/2018 - Will continue with antibioics for now. The culture results from abd shows ecoli and pseudomonas sensitive to Zosyn - Belly remains distended. Tube feed on hold - Surgery following the patient, no plans for any surgical interventions for now - Continue potassium replacement. - Will f/u on the patient.
--- NOTE | 2018-10-15 20:32 | PN ---
PROGRESS NOTE DATE OF SERVICE: 10/15/2018. REASON FOR FOLLOWUP: Abdominal abscess from ruptured diverticulitis. INTERVAL HISTORY: The patient is currently afebrile. The patient is hemodynamically stable. The patient remains to be intubated on the vent, but not requiring any pressor support. Currently on TPN. No output in the colostomy bag. PHYSICAL EXAMINATION: Blood pressure 103/69 with a pulse of 96, temperature 98.7. He is 95% on 50% FiO2. General description is an elderly male lying in bed in no distress. RESPIRATORY SYSTEM: Unlabored breathing. Clear to auscultation anteriorly. HEART: S1, S2. Regular rate and rhythm. ABDOMEN: Soft, upper incision is currently off the staple with no erythema. Lower incision covered with a wound VAC. Some blood-stained drainage in the SAMY drainage. LABS: Hemoglobin 9.2, white count of 13.3, with BUN of 39, creatinine 1.14. DIAGNOSTIC IMPRESSION AND PLAN: Patient with abdominal abscess from a ruptured diverticulitis. Culture positive for E coli, Pseudomonas and anaerobic gram-negative. Patient given Zosyn with Eraxis added because of a new fever with concern for possible fungal infection. Cultures have been negative. We will monitor the patient closely. Continue Zosyn and Eraxis at this point. Continue supportive care. MMODL / IJN: [id number] /
[2018-10-15] MEDS: INSULIN DETEMIR (LEVEMIR) 100 UNIT/ML SYR SQ SCH (21:22)
[2018-10-15 21:23] LABS: Glucose,Whole Blood 130 mg/dL (75-99)
[2018-10-16] MEDS: PIPERACILLIN-TAZOBACTAM 3.375 GM in SODIUM CHLORIDE 0.9% 100 ML IVPB SCH ×3 (00:01→16:40)
[2018-10-16] MEDS: METOPROLOL TARTRATE 5 MG/5 ML VIAL IVP SCH ×3 (00:01→16:40)
[2018-10-16] MEDS: metroNIDAZOLE-NS PMX 500 MG in SALINE 1 100ML.BAG IVPB SCH ×4 (00:01→19:11)
[2018-10-16 00:04] LABS: Glucose,Whole Blood 117 mg/dL (75-99)
[2018-10-16] MEDS: POTASSIUM CHLORIDE 20 MEQ in WATER FOR INJECTION 1 100ML.BAG IVPB SCH (01:10)
[2018-10-16] MEDS: IPRATROPIUM-ALBUTEROL 3 ML NEB INHALATION SCH ×5 (03:26→20:52)
[2018-10-16 04:22] LABS: ABG Base Excess 0.8 mmol/L; ABG HCO3 24 mmol/L (21-25); ABG Oxygen Saturation 98.1 % (94-97); ABG PCO2 32 mmHg (35-45); ABG PH 7.48 (7.35-7.45); ABG PO2 97 mmHg (83-108); ABG TCO2 25 mmol/L (19-24)
[2018-10-16 04:36] LABS: Anisocytosis Slight; HCT 29.8 % (39.0-53.0); HGB 9.1 gm/dL (13.0-17.5); Hypochromasia Marked; MCHC 30.6 g/dL (31.0-37.0); MCV 101.1 fL (80.0-100.0); Macrocytosis Moderate; Mean Platelet Volume 8.3; Platelet Count 438 k/uL (150-450); Poikilocytosis Moderate; RBC 2.95 m/uL (4.30-5.90); RDW 18.2 % (11.5-15.5); WBC 13.1 k/uL (3.8-10.6)
[2018-10-16 04:48] LABS: Allen Test Performed? no
[2018-10-16 04:52] LABS: Calcium 7.5 mg/dL (8.4-10.2); Potassium 3.7 mmol/L (3.5-5.1)
[2018-10-16 06:13] LABS: Glucose,Whole Blood 110 mg/dL (75-99)
[2018-10-16] MEDS: INSULIN ASPART (NovoLOG) 100 UNIT/ML VIAL SQ SCH ×3 (06:19→18:57)
[2018-10-16] MEDS: D5-0.45% NACL WITH KCL 20MEQ/L 1,000 ML IV SCH (06:22)
--- NOTE | 2018-10-16 08:42 | XR ---
EXAMINATION TYPE: XR chest 1V portable DATE OF EXAM: 10/16/2018 COMPARISON: 10/15/2018 INDICATION: Short of breath TECHNIQUE: Single frontal view of the chest is obtained. FINDINGS: The heart size is normal. The pulmonary vasculature is normal. There may be a small right pleural effusion which appears improved. PICC line enters on the right wit h the tip in the distal superior vena cava region. Tracheostomy tube is in the midline. 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 IMPRESSION: 1. Improving small right pleural effusion.
[2018-10-16] MEDS: ASPIRIN 81 MG PO SCH (09:58)
[2018-10-16] MEDS: CHLORHEXIDINE GLUCONATE 15 ML CUP MUCOUS MEM SCH ×2 (09:59→20:33)
[2018-10-16] MEDS: PANTOPRAZOLE 40 MG/10 ML VIAL IVP SCH ×2 (09:59→20:33)
[2018-10-16] MEDS: POTASSIUM CHLORIDE 10 MEQ in WATER FOR INJECTION 1 100ML.BAG IVPB SCH ×2 (09:59→12:24)
[2018-10-16] MEDS: ANIDULAFUNGIN 100 MG in SODIUM CHLORIDE 0.9% 100 ML IVPB SCH (10:00)
[2018-10-16] MEDS: PRAVASTATIN SODIUM 40 MG TAB PO SCH (10:00)
--- NOTE | 2018-10-16 11:16 | P.PN ---
Subjective Progress Note Date: 10/16/18 Principal diagnosis: Acute hypoxic respiratory failure, abdominal sepsis. Patient was reevaluated today on 10/16/2018, patient presented over 2 weeks ago with abdominal sepsis, underwent sigmoid colectomy and diverting colostomy for perforated diverticular abscess. He is now postoperative day #15. Patient failed weaning, and he underwent tracheostomy. Obviously the patient developed hypoxic respiratory failure secondary to sepsis from his abdominal infection. As far as his tracheostomy is concerned, his postoperative day #6. Multiple attempts to wean the patient have failed, today I even gave him a short weaning trial with a pressure support of 15 and CPAP, and he became extremely tachypneic, his respiratory rate was up in the 40s, and he had mostly very shallow breathing. Hence decided not to pursue any further weaning at this point. His other medical problems included ileus requiring holding enteral feeding for the last 2 days. He had intermittent episodes of paroxysmal atrial fibrillation, chronic anemia, profound weakness, critical illness polyneuropath y, and he also had abdominal infection secondary to E. coli and Pseudomonas. As well as anaerobic infection from the peritoneal fluid. Blood cultures have been negative, tip of the central line catheter was negative for infection, blood cultures have been negative. Patient remains on antifungal therapy/Eraxis, he is also on Dilaudid for pain, insulin, updrafts using albuterol with Atrovent, Ativan when necessary, metoprolol 5 mg IV push every 8 hours when necessary, Flagyl, Protonix, Zosyn, pravastatin, and he is also on IV fluids. Labs continued to show leukocytosis with WBC count of 13.1 hemoglobin is 9.1 ABG this morning showed a pO2 of 97 pCO2 of 32 pH of 7.48. His ventilator settings are assist control rate 18, volume control plus, PEEP is at 5, FiO2 is 50%. ABG as noted electrolytes are normal BUN is 33 creatinine 1.02 blood sugar is 68. Objective - Vital Signs Vital signs: Vital Signs Temp 99.3 F 10/16/18 04:00 Pulse 112 H 10/16/18 07:47 Resp 26 H 10/16/18 07:00 BP 123/69 10/16/18 07:00 Pulse Ox 97 10/16/18 07:00 Intake & Output 10/15/18 10/16/18 10/16/18 18:59 06:59 18:59 Intake Total 1386 983 312 Output Total 1165 735 270 Balance 221 248 42 Weight 134.4 kg Intake: IV 1386 983 312 0.9NS 150 D5-0.45% NaCl with KCl 500 550 200 20Meq/l 1,000 ml @ 50 mls /hr IV .Q20H [facility] Rx#: [id number] Piperacillin-Tazobactam 3 200 100 .375 gm In Sodium Chloride 0.9% 100 ml @ 25 mls/hr IVPB Q8HR [facility] Rx# :[id number] Potassium Chloride 20 meq 300 200 In Water For Injection 1 100ml.bag @ 50 mls/hr IVPB Q2H [facility] Rx#: [id number] metroNIDAZOLE-NS PMX 500 200 100 100 mg In Saline 1 100ml.bag @ 100 mls/hr IVPB Q6HR [facility] Rx#:[id number] pressure bag 36 33 12 Output: Drainage 100 Right Lower Abdomen 100 Urine 1065 735 270 Other: Voiding Method Indwelling Catheter Indwelling Catheter ABP, PAP, CO, CI - Last Documented Arterial Blood Pressure 73/63 - Exam Physical Exam: Revealed a 83-year-old white male, on mechanical ventilation, arousable, follows simple instructions, therefore a tracheostomy tube in place #8, calm, arousable. Head: Atraumatic, normocephalic, tracheostomy is noted to be intact. HEENT:[Neck is supple.] [No neck masses.] [No thyromegaly.] [No JVD.] Chest: [Symmetrical chest expansion, crackles and rhonchi noted bilaterally. No chest wall tenderness..] Cardiac Exam: [Normal S1 and S2, no S3 gallop, no murmur.] Abdomen: [Soft, mid abdominal incision is dry and clean, intact, wound VAC is in place, SAMY drain is noted with bloody fluid noted in the SAMY drain, no rebound, no guarding, bowel sounds are hypoactive. Extremities: [No clubbing, 1+ bipedal edema, no cyanosis.] Neurological Exam: Arousable, follows simple instructions, no gross focal della rologic deficit. Psychiatric: Could not be assessed. Skin: No rashes. Lymphatics: No lymphadenopathy. - Labs CBC & Chem 7: 10/16/18 04:25 10/16/18 04:25 Labs: Abnormal Lab Results - Last 24 Hours (Table) 10/15/18 10/15/18 10/15/18 Range/Units 11:59 18:32 21:05 WBC (3.8-10.6) k/uL RBC (4.30-5.90) m/uL Hgb (13.0-17.5) gm/dL Hct (39.0-53.0) % MCV (80.0-100.0) fL MCHC (31.0-37.0) g/dL RDW (11.5-15.5) % ABG pH (7.35-7.45) ABG pCO2 (35-45) mmHg ABG Total CO2 (19-24) mmol/L ABG O2 Saturation (94-97) % Sodium (137-145) mmol/L Potassium 3.2 L (3.5-5.1) mmol/L Chloride (98-107) mmol/L BUN (9-20) mg/dL Glucose (74-99) mg/dL POC Glucose (mg/dL) 111 H 131 H (75-99) mg/dL Calcium (8.4-10.2) mg/dL 10/15/18 10/15/18 10/16/18 Range/Units 21:20 23:49 04:21 WBC (3.8-10.6) k/uL RBC (4.30-5.90) m/uL Hgb (13.0-17.5) gm/dL Hct (39.0-53.0) % MCV (80.0-100.0) fL MCHC (31.0-37.0) g/dL RDW (11.5-15.5) % ABG pH 7.48 H (7.35-7.45) ABG pCO2 32 L (35-45) mmHg ABG Total CO2 25 H (19-24) mmol/L ABG O2 Saturation 98.1 H (94-97) % Sodium (137-145) mmol/L Potassium (3.5-5.1) mmol/L Chloride (98-107) mmol/L BUN (9-20) mg/dL Glucose (74-99) mg/dL POC Glucose (mg/dL) 130 H 117 H (75-99) mg/dL Calcium (8.4-10.2) mg/dL 10/16/18 10/16/18 10/16/18 Range/Units 04:25 04:25 05:50 WBC 13.1 H (3.8-10.6) k/uL RBC 2.95 L (4.30-5.90) m/uL Hgb 9.1 L (13.0-17.5) gm/dL Hct 29.8 L (39.0-53.0) % MCV 101.1 H (80.0-100.0) fL MCHC 30.6 L (31.0-37.0) g/dL RDW 18.2 H (11.5-15.5) % ABG pH (7.35-7.45) ABG pCO2 (35-45) mmHg ABG Total CO2 (19-24) mmol/L ABG O2 Saturation (94-97) % Sodium 146 H (137-145) mmol/L Potassium (3.5-5.1) mmol/L Chloride 117 H (98-107) mmol/L BUN 33 H (9-20) mg/dL Glucose 115 H (74-99) mg/dL POC Glucose (mg/dL) 110 H (75-99) mg/dL Calcium 7.5 L (8.4-10.2) mg/dL Microbiology - Last 24 Hours (Table) 10/12/18 09:50 Blood Culture - Preliminary Blood No Growth after 72 hours 10/12/18 09:47 Blood Culture - Preliminary Blood No Growth after 72 hours Assessment and Plan Assessment: Impression: 1 acute hypoxic respiratory failure secondary to abdominal sepsis. 2 status post colectomy and diverting colostomy for diverticular abscess perfora tion, postoperative day #15. 3 Abdominal sepsis secondary to E. coli and Pseudomonas in addition to gram- negative anaerobes/Bacteroides species. Patient remains on Flagyl and Zosyn. Colostomy seems to be functioning. And one VAC is in place. 4 acute ileus, patient was given bowel rest, however tube feeding will be restarted today, via PEG tube, and is in a be restarted slowly. 5 paroxysmal atrial fibrillation, presently in sinus rhythm. 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 7 electrolytes imbalance, multifactorial, being addressed on a daily basis. 8 failure to wean, status post tracheostomy postoperative day #6. Multiple comorbidities including history of hypothyroidism, hypertension, degenerative joint disease, hyperlipidemia, and chronic anemia. Recommendation: Continue ventilatory support, I gave the patient a short trial of pressure support and CPAP, and patient did not tolerate it well. Hence placed back on assist control mode of mechanical ventilation, continue antibiotics, continue GI and DVT prophylaxis, restart enteral feeding via PEG tube, continue to assess weaning on a daily basis, will reconsult select care specialty, and hopefully transfer the patient soon to select care specialty. Overall long-term prognosis is poor. His son at bedside was updated on his condition. Critical care time is 40 minutes. Time with Patient: Greater than 30
--- NOTE | 2018-10-16 11:36 | P.PN ---
Subjective Progress Note Date: 10/16/18 CHIEF COMPLAINT: Abdominal pain HISTORY OF PRESENT ILLNESS: Patient is status post exploratory laparotomy, sigmoid colectomy with end colostomy, and drainage of abscess secondary to perforated diverticulitis. Patient is also s/p trach and PEG tube placement. Patient remains on mechanical ventilation in the ICU. Remains off sedation. Tube feedings held yesterday to high residuals. WBC 13.1. Hemoglobin 9.1. Potassium was low yesterday and was supplemented. Potassium this morning is 3.7 and his being replaced. PHYSICAL EXAM: VITAL SIGNS: Reviewed GENERAL: Well-developed in no acute distress-remains on mechanical ventilation. HEENT: No sclera icterus. Extraocular movements grossly intact. Moist buccal mucosa. Head is atraumatic, normocephalic. NECK: Trach intact without signs of bleeding or infection. Supple without lymphadenopathy. CHEST: Non-labored respirations and equal bilateral excursions. remains on mechanical ventilation CARDIOVASCULAR: Regular rate with regular rhythm. Palpable 2+ radial pulses. ABDOMEN: Wound vac to abdomen. Ostomy intact with small amount of liquid stool. SAMY drain noted to right lower quadrant. MUSCULOSKELETAL: No clubbing, cyanosis. +2 edema to bilateral extremities, improving NEUROLOGIC: No focal or lateralizing signs. Cranial nerves II through XII grossly intact. PSYCH: Patient awake and alert. Follows commands. SKIN: Well perfused. Good skin turgor. ASSESSMENT: 1. Perforated diverticulitis, status post exploratory laparotomy, sigmoid colectomy with end colostomy, and drainage of abscess 2. Sepsis, abdominal cultures positive for E. coli and pseudomonas aeruginosa 3. Peritonitis 4. Acute hypoxic respiratory failure, S/P trach and peg 5. Paroxysmal atrial fibrillation 6. Hypokalemia 7. Ileus PLAN: 1. Ventilator management per Dr. Llanos 2. Continue wound vac and antibiotics per infectious disease 3. Resume tube feedings at 10cc hour and advance slowly. Change TF formula to low fat formula. Monitor residuals. Nurse practitioner note has been reviewed by physician. Signing provider agrees with the documented findings, assessment, and plan of care. Objective - Vital Signs Vital signs: Vital Signs Temp 99.3 F 10/16/18 04:00 Pulse 112 H 10/16/18 07:47 Resp 26 H 10/16/18 07:00 BP 123/69 10/16/18 07:00 Pulse Ox 97 10/16/18 07:00 Intake & Output 10/15/18 10/16/18 10/16/18 18:59 06:59 18:59 Intake Total 1386 983 312 Output Total 1165 735 270 Balance 221 248 42 Weight 134.4 kg Intake: IV 1386 983 312 0.9NS 150 D5-0.45% NaCl with KCl 500 550 200 20Meq/l 1,000 ml @ 50 mls /hr IV .Q20H [facility] Rx#: [id number] Piperacillin-Tazobactam 3 200 100 .375 gm In Sodium Chloride 0.9% 100 ml @ 25 mls/hr IVPB Q8HR [facility] Rx# :[id number] Potassium Chloride 20 meq 300 200 In Water For Injection 1 100ml.bag @ 50 mls/hr IVPB Q2H [facility] Rx#: [id number] metroNIDAZOLE-NS PMX 500 200 100 100 mg In Saline 1 100ml.bag @ 100 mls/hr IVPB Q6HR [facility] Rx#:[id number] pressure bag 36 33 12 Output: Drainage 100 Right Lower Abdomen 100 Urine 1065 735 270 Other: Voiding Method Indwelling Catheter Indwelling Catheter ABP, PAP, CO, CI - Last Documented Arterial Blood Pressure 73/63 - Labs CBC & Chem 7: 10/16/18 04:25 10/16/18 04:25 Labs: Abnormal Lab Results - Last 24 Hours (Table) 10/15/18 10/15/18 10/15/18 Range/Units 11:59 18:32 21:05 WBC (3.8-10.6) k/uL RBC (4.30-5.90) m/uL Hgb (13.0-17.5) gm/dL Hct (39.0-53.0) % MCV (80.0-100.0) fL MCHC (31.0-37.0) g/dL RDW (11.5-15.5) % ABG pH (7.35-7.45) ABG pCO2 (35-45) mmHg ABG Total CO2 (19-24) mmol/L ABG O2 Saturation (94-97) % Sodium (137-145) mmol/L Potassium 3.2 L (3.5-5.1) mmol/L Chloride (98-107) mmol/L BUN (9-20) mg/dL Glucose (74-99) mg/dL POC Glucose (mg/dL) 111 H 131 H (75-99) mg/dL Calcium (8.4-10.2) mg/dL 10/15/18 10/15/18 10/16/18 Range/Units 21:20 23:49 04:21 WBC (3.8-10.6) k/uL RBC (4.30-5.90) m/uL Hgb (13.0-17.5) gm/dL Hct (39.0-53.0) % MCV (80.0-100.0) fL MCHC (31.0-37.0) g/dL RDW (11.5-15.5) % ABG pH 7.48 H (7.35-7.45) ABG pCO2 32 L (35-45) mmHg ABG Total CO2 25 H (19-24) mmol/L ABG O2 Saturation 98.1 H (94-97) % Sodium (137-145) mmol/L Potassium (3.5-5.1) mmol/L Chloride (98-107) mmol/L BUN (9-20) mg/dL Glucose (74-99) mg/dL POC Glucose (mg/dL) 130 H 117 H (75-99) mg/dL Calcium (8.4-10.2) mg/dL 10/16/18 10/16/18 10/16/18 Range/Units 04:25 04:25 05:50 WBC 13.1 H (3.8-10.6) k/uL RBC 2.95 L (4.30-5.90) m/uL Hgb 9.1 L (13.0-17.5) gm/dL Hct 29.8 L (39.0-53.0) % MCV 101.1 H (80.0-100.0) fL MCHC 30.6 L (31.0-37.0) g/dL RDW 18.2 H (11.5-15.5) % ABG pH (7.35-7.45) ABG pCO2 (35-45) mmHg ABG Total CO2 (19-24) mmol/L ABG O2 Saturation (94-97) % Sodium 146 H (137-145) mmol/L Potassium (3.5-5.1) mmol/L Chloride 117 H (98-107) mmol/L BUN 33 H (9-20) mg/dL Glucose 115 H (74-99) mg/dL POC Glucose (mg/dL) 110 H (75-99) mg/dL Calcium 7.5 L (8.4-10.2) mg/dL Microbiology - Last 24 Hours (Table) 10/12/18 09:50 Blood Culture - Preliminary Blood No Growth after 72 hours 10/12/18 09:47 Blood Culture - Preliminary Blood No Growth after 72 hours Assessment and Plan (1) Abdominal pain Current Visit: Yes Status: Acute Code(s): R10.9 - UNSPECIFIED ABDOMINAL PAIN SNOMED Code(s): 40381073 (2) Perforation of sigmoid colon due to diverticulitis Current Visit: Yes Status: Acute Code(s): K57.20 - DVTRCLI OF LG INT W PERFORATION AND ABSCESS W/O BLEEDING SNOMED Code(s): 1553726857878624 (3) Respiratory failure Current Visit: Yes Status: Acute Code(s): J96.90 - RESPIRATORY FAILURE, UNSP, UNSP W HYPOXIA OR HYPERCAPNIA SNOMED Code(s): 753825821 (4) History of atrial fibrillation Current Visit: No Status: Acute Code(s): Z86.79 - PERSONAL HISTORY OF OTHER DISEASES OF THE CIRCULATORY SYSTEM SNOMED Code(s): 551768736 (5) Sepsis Current Visit: No Status: Acute Code(s): A41.9 - SEPSIS, UNSPECIFIED ORGANISM SNOMED Code(s): 95992945
[2018-10-16 12:03] LABS: Glucose,Whole Blood 103 mg/dL (75-99)
[2018-10-16] MEDS: HYDROmorphone 1 MG/ML 1 ML SYRINGE IVP PRN ×3 (12:05→19:56)
--- NOTE | 2018-10-16 18:47 | PN ---
PROGRESS NOTE DATE OF SERVICE: 10/16/2018 REASON FOR FOLLOWUP: Abdominal abscess from ruptured diverticulitis. INTERVAL HISTORY: The patient is currently afebrile. The patient is currently on the vent through the trach. Hemodynamically stable. Not on any pressor support. No output in his colostomy bag. No other changes reported by the nursing staff. PHYSICAL EXAMINATION: Blood pressure 109/62 with a pulse of 98, temperature 99.5. He is 100% on 50% FiO2. General description is an elderly male lying in bed in no distress. RESPIRATORY SYSTEM: Unlabored breathing with decreased breath sounds at the base. No wheeze. HEART: S1, S2. Regular rate and rhythm. ABDOMEN: Soft. No tenderness. LABS: Hemoglobin is 9.1, white count 13.1. BUN of 33, creatinine 1.02. DIAGNOSTIC IMPRESSION AND PLAN: Patient with an abdominal abscess from a ruptured sigmoid diverticulitis in this patient who is status post diverting colostomy. Abdominal culture positive for E coli, pseudomonas, anaerobic. The patient is currently covered with Zosyn. Eraxis was added because of low-grade fever and elevated white count, to which the patient's fever has responded, though the culture has been negative. Will monitor his clinical course closely. Continue with supportive care. MMODL / IJN: [id number] /
[2018-10-16 19:00] LABS: Glucose,Whole Blood 115 mg/dL (75-99)
[2018-10-16] MEDS: INSULIN DETEMIR (LEVEMIR) 100 UNIT/ML SYR SQ SCH (20:33)
--- NOTE | 2018-10-16 20:33 | P.PN ---
Subjective Patient admitted with small bowel obstruction status post abdominal surgery. He is trached at this point and looks recently comfortable. He is in sinus rhythm and he is headed for the ECF Vitals are stable blood pressure 134/73 mmHg pulse rate in the 70s And neck examination reveals icteric urostomy Breath sounds are reduced bilaterally but no rhonchi no crackles Heart sounds are soft Abdomen is distended but soft Impression past history of extensive cardiac history Currently admitted for small bowel obstruction status post surgery Status post tracheostomy Suggest Continue cardiac medications without any changes. Objective - Vital Signs Vital signs: Vital Signs Temp 98.9 F 10/16/18 20:00 Pulse 93 10/16/18 20:00 Resp 24 10/16/18 20:00 BP 126/68 10/16/18 20:00 Pulse Ox 93 L 10/16/18 20:00 Intake & Output 10/16/18 10/16/18 10/17/18 06:59 18:59 06:59 Intake Total 983 849 73 Output Total 735 755 90 Balance 248 94 -17 Weight 134.4 kg Intake: IV 983 789 53 D5-0.45% NaCl with KCl 550 650 50 20Meq/l 1,000 ml @ 50 mls /hr IV .Q20H [facility] Rx#: [id number] Piperacillin-Tazobactam 3 100 .375 gm In Sodium Chloride 0.9% 100 ml @ 25 mls/hr IVPB Q8HR [facility] Rx# :[id number] Potassium Chloride 20 meq 200 In Water For Injection 1 100ml.bag @ 50 mls/hr IVPB Q2H [facility] Rx#: [id number] metroNIDAZOLE-NS PMX 500 100 100 mg In Saline 1 100ml.bag @ 100 mls/hr IVPB Q6HR [facility] Rx#:[id number] pressure bag 33 39 3 Tube Feeding 60 20 Output: Drainage 30 Right Lower Abdomen 30 Urine 735 755 60 Other: Voiding Method Indwelling Catheter Indwelling Catheter ABP, PAP, CO, CI - Last Documented Arterial Blood Pressure 113/108 - Labs CBC & Chem 7: 10/16/18 04:25 10/16/18 04:25 Labs: Abnormal Lab Results - Last 24 Hours (Table) 10/15/18 10/15/18 10/15/18 Range/Units 21:05 21:20 23:49 WBC (3.8-10.6) k/uL RBC (4.30-5.90) m/uL Hgb (13.0-17.5) gm/dL Hct (39.0-53.0) % MCV (80.0-100.0) fL MCHC (31.0-37.0) g/dL RDW (11.5-15.5) % ABG pH (7.35-7.45) ABG pCO2 (35-45) mmHg ABG Total CO2 (19-24) mmol/L ABG O2 Saturation (94-97) % Sodium (137-145) mmol/L Potassium 3.2 L (3.5-5.1) mmol/L Chloride (98-107) mmol/L BUN (9-20) mg/dL Glucose (74-99) mg/dL POC Glucose (mg/dL) 130 H 117 H (75-99) mg/dL Calcium (8.4-10.2) mg/dL 10/16/18 10/16/18 10/16/18 Range/Units 04:21 04:25 04:25 WBC 13.1 H (3.8-10.6) k/uL RBC 2.95 L (4.30-5.90) m/uL Hgb 9.1 L (13.0-17.5) gm/dL Hct 29.8 L (39.0-53.0) % MCV 101.1 H (80.0-100.0) fL MCHC 30.6 L (31.0-37.0) g/dL RDW 18.2 H (11.5-15.5) % ABG pH 7.48 H (7.35-7.45) ABG pCO2 32 L (35-45) mmHg ABG Total CO2 25 H (19-24) mmol/L ABG O2 Saturation 98.1 H (94-97) % Sodium 146 H (137-145) mmol/L Potassium (3.5-5.1) mmol/L Chloride 117 H (98-107) mmol/L BUN 33 H (9-20) mg/dL Glucose 115 H (74-99) mg/dL POC Glucose (mg/dL) (75-99) mg/dL Calcium 7.5 L (8.4-10.2) mg/dL 10/16/18 10/16/18 10/16/18 Range/Units 05:50 12:02 18:57 WBC (3.8-10.6) k/uL RBC (4.30-5.90) m/uL Hgb (13.0-17.5) gm/dL Hct (39.0-53.0) % MCV (80.0-100.0) fL MCHC (31.0-37.0) g/dL RDW (11.5-15.5) % ABG pH (7.35-7.45) ABG pCO2 (35-45) mmHg ABG Total CO2 (19-24) mmol/L ABG O2 Saturation (94-97) % Sodium (137-145) mmol/L Potassium (3.5-5.1) mmol/L Chloride (98-107) mmol/L BUN (9-20) mg/dL Glucose (74-99) mg/dL POC Glucose (mg/dL) 110 H 103 H 115 H (75-99) mg/dL Calcium (8.4-10.2) mg/dL Microbiology - Last 24 Hours (Table) 10/12/18 09:47 Blood Culture - Preliminary Blood No Growth after 96 hours 10/12/18 09:50 Blood Culture - Preliminary Blood No Growth after 96 hours
[2018-10-16 20:35] LABS: Glucose,Whole Blood 123 mg/dL (75-99)
--- NOTE | 2018-10-16 22:37 | P.PN ---
Progress Note - Text Progress Note Date: 10/16/18 Presenting complaint: Perforated viscus Interval history: Patient admitted perforated acute diverticulitis. . Had a sigmoid colectomy and has a drain in place with partial closure of the incision. NG tube in place. Bishop catheter in place Today-. Remains in the ICU. . On the ventilator. FiO2 50. PEEP of 5. Tube feeding was held for 2 days. Started again today at 10 mL an hour. Abdomen distended. Very gentle output through the ostomy. Abdominal wound VAC in place. Minimal output. Telemetry shows sinus rhythm. Patient does respond some to verbal commands. Review of systems: Unable to obtain as patient is intubated Current medications reviewed that included: IV anidulafunginl, IV Zosyn, IV Flagyl l On examination: VITAL SIGNS: Afebrile, 93, 21, 103/59, 93% on the vent GENERAL: Laying in bed, lethargic EYES: Pupils equal. Conjunctiva normal. HEENT: External appearance of nose and ears normal, oral cavity dry. NECK: JVD unable to assess; tracheostomy in place. HEART: Heart sounds regular, no edema. LUNGS: Respiratory rate increased; decreased breath sounds. ABDOMEN: Distention, left-sided colostomy , abdominal wound VAC in place. SAMY drain, tender, no mass palpable. PSYCH: Unable to assess. NEUROLOGICAL: Cranial nerves grossly intact; no facial asymmetry, pupils reactive, does move about, appears to follow commands Investigations reviewed in the clinical context White count 13.1, hemoglobin 9.1, platelets 438 Potassium 3.7 creatinine 1.0 to Abdominal wound culture growing anaerobic gram-negative bacilli and E. coli and Pseudomonas aeruginosa Assessment: -Acute perforated sigmoid diverticulitis with secondary peritonitis, -Sigmoid colectomy with a resultant colostomy and a SAMY drain in place -Hypotensive and septic shock, status post pressure support -Acute renal failure, ATN from septic shock, with significant improvement -Paroxysmal atrial flutter,, rapid initially,, now in sinus rhythm -Coronary artery disease with prior history of stent and bypass -Hyperlipidemia -Essential hypertension history of -Primary osteoarthritis -BPH -Hypothyroidism -Chronic gout -PTSD -Coumadin monitoring. Status post vitamin K and fresh frozen plasma. Plan: Social workers looking into long-term placement. Continue antibiotics. Abdominal x-ray from yesterday showed no specific findings. Patient's colostomy output has been minimal. Need to be careful about ileus.
[2018-10-17 00:02] LABS: Glucose,Whole Blood 124 mg/dL (75-99)
[2018-10-17] MEDS: INSULIN ASPART (NovoLOG) 100 UNIT/ML VIAL SQ SCH ×4 (00:09→17:10)
[2018-10-17] MEDS: HYDROmorphone 1 MG/ML 1 ML SYRINGE IVP PRN ×7 (00:12→23:43)
[2018-10-17] MEDS: PIPERACILLIN-TAZOBACTAM 3.375 GM in SODIUM CHLORIDE 0.9% 100 ML IVPB SCH ×4 (00:12→23:44)
[2018-10-17] MEDS: METOPROLOL TARTRATE 5 MG/5 ML VIAL IVP SCH ×4 (00:12→23:44)
[2018-10-17] MEDS: metroNIDAZOLE-NS PMX 500 MG in SALINE 1 100ML.BAG IVPB SCH ×5 (00:12→23:43)
[2018-10-17] MEDS ORDERED: Potassium Replacement Protocol 1 EACH MISC MISCELLANE PRN ×2 (00:36→06:47)
[2018-10-17] MEDS: POTASSIUM CHLORIDE 10 MEQ in WATER FOR INJECTION 1 100ML.BAG IVPB SCH ×4 (00:43→10:13)
[2018-10-17] MEDS: IPRATROPIUM-ALBUTEROL 3 ML NEB INHALATION SCH ×6 (03:21→23:24)
[2018-10-17] MEDS: D5-0.45% NACL WITH KCL 20MEQ/L 1,000 ML IV SCH ×2 (03:56→18:16)
[2018-10-17 04:27] LABS: Anisocytosis Slight; Basophils % (A) 0 %; Eosinophils # (A) 0.2 k/uL (0-0.7); Eosinophils % (A) 2 %; HGB 8.6 gm/dL (13.0-17.5); Hypochromasia Marked; Lymphocytes # (A) 0.9 k/uL (1.0-4.8); Lymphocytes % (A) 10 %; MCHC 30.9 g/dL (31.0-37.0); MCV 100.4 fL (80.0-100.0); Macrocytosis Moderate; Mean Platelet Volume 8.7; Monocytes # (A) 0.4 k/uL (0-1.0); Monocytes % (A) 4 %; Neutrophils # (A) 7.9 k/uL (1.3-7.7); Neutrophils % (A) 83 %; Platelet Count 389 k/uL (150-450); Poikilocytosis Moderate; RBC 2.79 m/uL (4.30-5.90); RDW 19.1 % (11.5-15.5); WBC 9.5 k/uL (3.8-10.6)
[2018-10-17 04:37] LABS: Calcium 7.3 mg/dL (8.4-10.2); Potassium 3.9 mmol/L (3.5-5.1)
[2018-10-17] MEDS: LORazepam 2 MG/ML INJ IV PRN ×4 (05:33→23:42)
[2018-10-17 06:09] LABS: Glucose,Whole Blood 127 mg/dL (75-99)
[2018-10-17 07:39] LABS: ABG Base Excess -0.2 mmol/L; ABG HCO3 24 mmol/L (21-25); ABG Oxygen Saturation 98.3 % (94-97); ABG PCO2 35 mmHg (35-45); ABG PH 7.44 (7.35-7.45); ABG PO2 95 mmHg (83-108); ABG TCO2 25 mmol/L (19-24)
--- NOTE | 2018-10-17 08:12 | XR ---
EXAMINATION TYPE: XR chest 1V DATE OF EXAM: 10/17/2018 COMPARISON: 10/16/2018 HISTORY: 83-year-old male ICU management on ventilator TECHNIQUE: Single frontal view of the chest is obtained. FINDINGS: Tracheostomy cannula is present. Right PICC tip at the upper right atrial level. Median st ernotomy wires and post-CABG clips in the mediastinum. Heart remains borderline to mildly enlarged wi th diffuse interstitial prominence. Continued hazy bibasilar density suggesting small effusions, righ t greater than left. IMPRESSION: Continued small right greater than left pleural effusions with adjacent atelectasis and/ or consolidation. Possible background of mild pulmonary vascular congestion.
[2018-10-17] MEDS: PRAVASTATIN SODIUM 40 MG TAB PO SCH (09:28)
[2018-10-17] MEDS: PANTOPRAZOLE 40 MG/10 ML VIAL IVP SCH ×2 (09:28→20:01)
[2018-10-17] MEDS: ASPIRIN 81 MG PO SCH (09:28)
[2018-10-17] MEDS: ANIDULAFUNGIN 100 MG in SODIUM CHLORIDE 0.9% 100 ML IVPB SCH (09:28)
[2018-10-17] MEDS: CHLORHEXIDINE GLUCONATE 15 ML CUP MUCOUS MEM SCH ×2 (09:28→20:01)
[2018-10-17 09:57] VITALS: BMI 42.8
[2018-10-17 11:45] LABS: Glucose,Whole Blood 140 mg/dL (75-99)
--- NOTE | 2018-10-17 11:52 | P.PN ---
Subjective Progress Note Date: 10/17/18 CHIEF COMPLAINT: Abdominal pain HISTORY OF PRESENT ILLNESS: Patient is status post exploratory laparotomy, sigmoid colectomy with end colostomy, and drainage of abscess secondary to perforated diverticulitis. Patient is also s/p trach and PEG tube placement. Patient remains on mechanical ventilation in the ICU. Remains off sedation. He is able to nod yes or no to questions. He denies abdominal pain. Tube feeding infusing at 10cc/hr. patient tolerating well. Colostomy with large amount of formed stool noted. PHYSICAL EXAM: VITAL SIGNS: Reviewed GENERAL: Well-developed in no acute distress-remains on mechanical ventilation. HEENT: No sclera icterus. Extraocular movements grossly intact. Moist buccal mucosa. Head is atraumatic, normocephalic. NECK: Trach intact without signs of bleeding or infection. Supple without lymphadenopathy. CHEST: Non-labored respirations and equal bilateral excursions. remains on mechanical ventilation CARDIOVASCULAR: Regular rate with regular rhythm. Palpable 2+ radial pulses. ABDOMEN: Wound vac to abdomen. Ostomy intact with large amount of stool. SAMY drain noted to right lower quadrant with dark old bloody drainage. MUSCULOSKELETAL: No clubbing, cyanosis. +1 edema to bilateral extremities NEUROLOGIC: No focal or lateralizing signs. Cranial nerves II through XII grossly intact. PSYCH: Patient awake and alert. Follows commands. SKIN: Well perfused. Good skin turgor. ASSESSMENT: 1. Perforated diverticulitis, status post exploratory laparotomy, sigmoid colectomy with end colostomy, and drainage of abscess 2. Sepsis, abdominal cultures positive for E. coli and pseudomonas aeruginosa 3. Peritonitis 4. Acute hypoxic respiratory failure, S/P trach and peg 5. Paroxysmal atrial fibrillation 6. Hypokalemia 7. Ileus PLAN: 1. Ventilator management per Dr. Llanos 2. Continue wound vac. Change M, W, F 3. Continue SAMY drain 4. Slowly advance tube feedings as tolerated Nurse practitioner note has been reviewed by physician. Signing provider agrees with the documented findings, assessment, and plan of care. Objective - Vital Signs Vital signs: Vital Signs Temp 97.8 F 10/17/18 08:00 Pulse 76 10/17/18 11:42 Resp 18 10/17/18 11:00 BP 94/49 10/17/18 11:00 Pulse Ox 95 10/17/18 11:00 Intake & Output 10/16/18 10/17/18 10/17/18 18:59 06:59 18:59 Intake Total 849 1263 880 Output Total 755 593 235 Balance 94 670 645 Weight 131.6 kg 131.6 kg Intake: IV 789 1083 720 0.9NS 80 Anidulafungin 100 mg In 100 Sodium Chloride 0.9% 100 ml @ 84 mls/hr IVPB DAILY [facility] Rx#:[id number] D5-0.45% NaCl with KCl 650 550 250 20Meq/l 1,000 ml @ 50 mls /hr IV .Q20H [facility] Rx#: [id number] Piperacillin-Tazobactam 3 100 75 .375 gm In Sodium Chloride 0.9% 100 ml @ 25 mls/hr IVPB Q8HR [facility] Rx# :[id number] Potassium Chloride 10 meq 200 In Water For Injection 1 100ml.bag @ 100 mls/hr IVPB Q1H [facility] Rx#: [id number] Potassium Chloride 10 meq 200 In Water For Injection 1 100ml.bag @ 100 mls/hr IVPB Q1H [facility] Rx#: [id number] metroNIDAZOLE-NS PMX 500 100 200 mg In Saline 1 100ml.bag @ 100 mls/hr IVPB Q6HR [facility] Rx#:[id number] pressure bag 39 33 15 Tube Feeding 60 120 70 Other 60 90 Output: Drainage 30 Right Lower Abdomen 30 Urine 755 563 235 Other: Voiding Method Indwelling Catheter Indwelling Catheter Indwelling Catheter # Bowel Movements 1 ABP, PAP, CO, CI - Last Documented Arterial Blood Pressure 103/94 - Labs CBC & Chem 7: 10/17/18 04:15 10/17/18 04:15 Labs: Abnormal Lab Results - Last 24 Hours (Table) 10/16/18 10/16/18 10/16/18 Range/Units 12:02 18:57 20:21 RBC (4.30-5.90) m/uL Hgb (13.0-17.5) gm/dL Hct (39.0-53.0) % MCV (80.0-100.0) fL MCHC (31.0-37.0) g/dL RDW (11.5-15.5) % Neutrophils # (1.3-7.7) k/uL Lymphocytes # (1.0-4.8) k/uL ABG Total CO2 (19-24) mmol/L ABG O2 Saturation (94-97) % Sodium (137-145) mmol/L Chloride (98-107) mmol/L BUN (9-20) mg/dL Glucose (74-99) mg/dL POC Glucose (mg/dL) 103 H 115 H 123 H (75-99) mg/dL Calcium (8.4-10.2) mg/dL 10/16/18 10/17/18 10/17/18 Range/Units 23:57 04:15 04:15 RBC 2.79 L (4.30-5.90) m/uL Hgb 8.6 L (13.0-17.5) gm/dL Hct 28.0 L (39.0-53.0) % MCV 100.4 H (80.0-100.0) fL MCHC 30.9 L (31.0-37.0) g/dL RDW 19.1 H (11.5-15.5) % Neutrophils # 7.9 H (1.3-7.7) k/uL Lymphocytes # 0.9 L (1.0-4.8) k/uL ABG Total CO2 (19-24) mmol/L ABG O2 Saturation (94-97) % Sodium 147 H (137-145) mmol/L Chloride 119 H (98-107) mmol/L BUN 31 H (9-20) mg/dL Glucose 114 H (74-99) mg/dL POC Glucose (mg/dL) 124 H (75-99) mg/dL Calcium 7.3 L (8.4-10.2) mg/dL 10/17/18 10/17/18 10/17/18 Range/Units 06:06 07:34 11:41 RBC (4.30-5.90) m/uL Hgb (13.0-17.5) gm/dL Hct (39.0-53.0) % MCV (80.0-100.0) fL MCHC (31.0-37.0) g/dL RDW (11.5-15.5) % Neutrophils # (1.3-7.7) k/uL Lymphocytes # (1.0-4.8) k/uL ABG Total CO2 25 H (19-24) mmol/L ABG O2 Saturation 98.3 H (94-97) % Sodium (137-145) mmol/L Chloride (98-107) mmol/L BUN (9-20) mg/dL Glucose (74-99) mg/dL POC Glucose (mg/dL) 127 H 140 H (75-99) mg/dL Calcium (8.4-10.2) mg/dL Microbiology - Last 24 Hours (Table) 10/12/18 09:47 Blood Culture - Preliminary Blood No Growth after 96 hours 10/12/18 09:50 Blood Culture - Preliminary Blood No Growth after 96 hours Assessment and Plan (1) Abdominal pain Current Visit: Yes Status: Acute Code(s): R10.9 - UNSPECIFIED ABDOMINAL PAIN SNOMED Code(s): 12689379 (2) Perforation of sigmoid colon due to diverticulitis Current Visit: Yes Status: Acute Code(s): K57.20 - DVTRCLI OF LG INT W PERFORATION AND ABSCESS W/O BLEEDING SNOMED Code(s): 3435082336623215 (3) Respiratory failure Current Visit: Yes Status: Acute Code(s): J96.90 - RESPIRATORY FAILURE, UNSP, UNSP W HYPOXIA OR HYPERCAPNIA SNOMED Code(s): 587566072 (4) History of atrial fibrillation Current Visit: No Status: Acute Code(s): Z86.79 - PERSONAL HISTORY OF OTHER DISEASES OF THE CIRCULATORY SYSTEM SNOMED Code(s): 000443720 (5) Sepsis Current Visit: No Status: Acute Code(s): A41.9 - SEPSIS, UNSPECIFIED ORGANISM SNOMED Code(s): 54693670
[2018-10-17] MEDS ORDERED: HYDROmorphone 1 MG/ML 1 ML SYRINGE IVP STA (12:16)
--- NOTE | 2018-10-17 12:28 | P.PN ---
Subjective Progress Note Date: 10/17/18 Principal diagnosis: Acute hypoxic respiratory failure, abdominal sepsis. Patient was reevaluated today on 10/16/2018, patient presented over 2 weeks ago with abdominal sepsis, underwent sigmoid colectomy and diverting colostomy for perforated diverticular abscess. He is now postoperative day #15. Patient failed weaning, and he underwent tracheostomy. Obviously the patient developed hypoxic respiratory failure secondary to sepsis from his abdominal infection. As far as his tracheostomy is concerned, his postoperative day #6. Multiple attempts to wean the patient have failed, today I even gave him a short weaning trial with a pressure support of 15 and CPAP, and he became extremely tachypneic, his respiratory rate was up in the 40s, and he had mostly very shallow breathing. Hence decided not to pursue any further weaning at this point. His other medical problems included ileus requiring holding enteral feeding for the last 2 days. He had intermittent episodes of paroxysmal atrial fibrillation, chronic anemia, profound weakness, critical illness polyneuropath y, and he also had abdominal infection secondary to E. coli and Pseudomonas. As well as anaerobic infection from the peritoneal fluid. Blood cultures have been negative, tip of the central line catheter was negative for infection, blood cultures have been negative. Patient remains on antifungal therapy/Eraxis, he is also on Dilaudid for pain, insulin, updrafts using albuterol with Atrovent, Ativan when necessary, metoprolol 5 mg IV push every 8 hours when necessary, Flagyl, Protonix, Zosyn, pravastatin, and he is also on IV fluids. Labs continued to show leukocytosis with WBC count of 13.1 hemoglobin is 9.1 ABG this morning showed a pO2 of 97 pCO2 of 32 pH of 7.48. His ventilator settings are assist control rate 18, volume control plus, PEEP is at 5, FiO2 is 50%. ABG as noted electrolytes are normal BUN is 33 creatinine 1.02 blood sugar is 68. Patient was reevaluated today on 10/17/2018, remains in the ICU on mechanical ventilation. Ventilator settings are basically the same as noted above. Patient is status post sigmoid colectomy and diverting colostomy for perforated diverticular abscess, he is now postoperative day #16. Patient failed weaning and he required a tracheostomy. He is postoperative day #7. Again I attempted to wean the patient today to pressure support and CPAP, patient became extremely tachypneic, and his breathing was very shallow. In spite of using a pressure support of 18 and CPAP. Hence placed back on assist control mode of mechanical ventilation, and I have explained to the son that it would be best to eventually arrange for the patient will be transferred to [facility] for further weaning. In the meantime the patient remains on antibiotics, remains on bronchodilators, remains on GI and DVT prophylaxis, he is hemodynamically stable, not requiring any pressors, and his colostomy is functional. ABG today showed a pO2 of 95 pCO2 of 35 pH of 7.44 and this is on a 50% FiO2. WBC count 9.5 hemoglobin is 8.6. Objective - Vital Signs Vital signs: Vital Signs Temp 97.8 F 10/17/18 08:00 Pulse 80 10/17/18 11:59 Resp 18 10/17/18 11:00 BP 94/49 10/17/18 11:00 Pulse Ox 95 10/17/18 11:00 Intake & Output 10/16/18 10/17/18 10/17/18 18:59 06:59 18:59 Intake Total 849 1263 880 Output Total 755 593 235 Balance 94 670 645 Weight 131.6 kg 131.6 kg Intake: IV 789 1083 720 0.9NS 80 Anidulafungin 100 mg In 100 Sodium Chloride 0.9% 100 ml @ 84 mls/hr IVPB DAILY [facility] Rx#:[id number] D5-0.45% NaCl with KCl 650 550 250 20Meq/l 1,000 ml @ 50 mls /hr IV .Q20H [facility] Rx#: [id number] Piperacillin-Tazobactam 3 100 75 .375 gm In Sodium Chloride 0.9% 100 ml @ 25 mls/hr IVPB Q8HR [facility] Rx# :[id number] Potassium Chloride 10 meq 200 In Water For Injection 1 100ml.bag @ 100 mls/hr IVPB Q1H [facility] Rx#: [id number] Potassium Chloride 10 meq 200 In Water For Injection 1 100ml.bag @ 100 mls/hr IVPB Q1H [facility] Rx#: [id number] metroNIDAZOLE-NS PMX 500 100 200 mg In Saline 1 100ml.bag @ 100 mls/hr IVPB Q6HR [facility] Rx#:[id number] pressure bag 39 33 15 Tube Feeding 60 120 70 Other 60 90 Output: Drainage 30 Right Lower Abdomen 30 Urine 755 563 235 Other: Voiding Method Indwelling Catheter Indwelling Catheter Indwelling Catheter # Bowel Movements 1 ABP, PAP, CO, CI - Last Documented Arterial Blood Pressure 103/94 - Exam Physical Exam: Revealed a 83-year-old white male, on mechanical ventilation, arousable, follows simple instructions, therefore a tracheostomy tube in place #8, calm, arousable. He followed simple instructions. Head: Atraumatic, normocephalic, tracheostomy is noted to be intact. HEENT:[Neck is supple.] [No neck masses.] [No thyromegaly.] [No JVD.] Chest: [Symmetrical chest expansion, crackles and rhonchi noted bilaterally. No chest wall tenderness..] Cardiac Exam: [Normal S1 and S2, no S3 gallop, no murmur.] Abdomen: [Soft, mid abdominal incision is dry and clean, intact, wound VAC is in place, SAMY drain is noted with bloody fluid noted in the SAMY drain, no rebound, no guarding, bowel sounds are hypoactive. Colostomy seems to be functional. Extremities: [No clubbing, 1+ bipedal edema, no cyanosis.] Neurological Exam: Arousable, follows simple instructions, no gross focal neurologic deficit. Psychiatric: Depressed mood, blunt affect, could not fully assess mental status. But seems to follow simple instructions. Skin: No rashes. Lymphatics: No lymphadenopathy. - Labs CBC & Chem 7: 10/17/18 04:15 10/17/18 04:15 Labs: Abnormal Lab Results - Last 24 Hours (Table) 10/16/18 10/16/18 10/16/18 Range/Units 18:57 20:21 23:57 RBC (4.30-5.90) m/uL Hgb (13.0-17.5) gm/dL Hct (39.0-53.0) % MCV (80.0-100.0) fL MCHC (31.0-37.0) g/dL RDW (11.5-15.5) % Neutrophils # (1.3-7.7) k/uL Lymphocytes # (1.0-4.8) k/uL ABG Total CO2 (19-24) mmol/L ABG O2 Saturation (94-97) % Sodium (137-145) mmol/L Chloride (98-107) mmol/L BUN (9-20) mg/dL Glucose (74-99) mg/dL POC Glucose (mg/dL) 115 H 123 H 124 H (75-99) mg/dL Calcium (8.4-10.2) mg/dL 10/17/18 10/17/18 10/17/18 Range/Units 04:15 04:15 06:06 RBC 2.79 L (4.30-5.90) m/uL Hgb 8.6 L (13.0-17.5) gm/dL Hct 28.0 L (39.0-53.0) % MCV 100.4 H (80.0-100.0) fL MCHC 30.9 L (31.0-37.0) g/dL RDW 19.1 H (11.5-15.5) % Neutrophils # 7.9 H (1.3-7.7) k/uL Lymphocytes # 0.9 L (1.0-4.8) k/uL ABG Total CO2 (19-24) mmol/L ABG O2 Saturation (94-97) % Sodium 147 H (137-145) mmol/L Chloride 119 H (98-107) mmol/L BUN 31 H (9-20) mg/dL Glucose 114 H (74-99) mg/dL POC Glucose (mg/dL) 127 H (75-99) mg/dL Calcium 7.3 L (8.4-10.2) mg/dL 10/17/18 10/17/18 Range/Units 07:34 11:41 RBC (4.30-5.90) m/uL Hgb (13.0-17.5) gm/dL Hct (39.0-53.0) % MCV (80.0-100.0) fL MCHC (31.0-37.0) g/dL RDW (11.5-15.5) % Neutrophils # (1.3-7.7) k/uL Lymphocytes # (1.0-4.8) k/uL ABG Total CO2 25 H (19-24) mmol/L ABG O2 Saturation 98.3 H (94-97) % Sodium (137-145) mmol/L Chloride (98-107) mmol/L BUN (9-20) mg/dL Glucose (74-99) mg/dL POC Glucose (mg/dL) 140 H (75-99) mg/dL Calcium (8.4-10.2) mg/dL Microbiology - Last 24 Hours (Table) 10/12/18 09:50 Blood Culture - Preliminary Blood No Growth after 120 hours 10/12/18 09:47 Blood Culture - Preliminary Blood No Growth after 120 hours Assessment and Plan Assessment: Impression: 1 acute hypoxic respiratory failure secondary to abdominal sepsis. 2 status post colectomy and diverting colostomy for diverticular abscess perforation, postoperative day # 16 3 Abdominal sepsis secondary to E. coli and Pseudomonas in addition to gram- negative anaerobes/Bacteroides species. Patient remains on Flagyl and Zosyn. Colostomy seems to be functioning. And one VAC is in place. 4 acute ileus, patient was given bowel rest, however tube feeding will be restarted today, via PEG tube, and is in a be restarted slowly. 5 paroxysmal atrial fibrillation, presently in sinus rhythm. 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 7 electrolytes imbalance, multifactorial, being addressed on a daily basis. 8 failure to wean, status post tracheostomy postoperative day #7. Multiple comorbidities including history of hypothyroidism, hypertension, degenerative joint disease, hyperlipidemia, and chronic anemia. Recommendation: Continue ventilatory support, patient was given again a trial of weaning with pressure support of 18 and CPAP, did not last more than 10 minutes, had to be placed back on assist control mode of mechanical ventilation. Hence patient is going to be extremely difficult to wean, and I proceeded we send him to select care specialty. In the meantime continue antibiotics, mechanical ventilation, GI and DVT prophylaxis, enteral feeding via PEG tube, long-term prognosis is extremely poor and guarded, son updated on his condition at bedside. Medical care time is 35 minutes. Time with Patient: Greater than 30
[2018-10-17 17:31] LABS: Glucose,Whole Blood 125 mg/dL (75-99)
--- NOTE | 2018-10-17 19:40 | PN ---
PROGRESS NOTE DATE OF SERVICE: 10/17/2018 REASON FOR FOLLOWUP: Abdominal abscess from ruptured diverticulitis. INTERVAL HISTORY: The patient is currently afebrile. The patient is hemodynamically stable, not on any pressor support. Currently intubated with a trach. No significant output from his colostomy on TPN. PHYSICAL EXAMINATION: Blood pressure is 93/54, pulse of 77, temperature 98. He is 99% on 50% FiO2. General description is an elderly male lying in bed in no distress. RESPIRATORY SYSTEM: Unlabored breathing with decreased breath sounds at the bases. HEART: S1, S2. Regular rate and rhythm. ABDOMEN: Soft. No tenderness. The lower abdominal wound currently looks clean, with no evidence of any slough tissue after removal of the wound V.A.C. LABS: Hemoglobin 8.6, white count 9.5. BUN of 31, creatinine 1.02. DIAGNOSTIC IMPRESSION AND PLAN: 1. Patient with abdominal abscess from ruptured diverticulitis. Culture positive for E coli, pseudomonas, anaerobic gram-negative. The patient is currently covered with Zosyn; to continue at least 2 weeks of therapy. 2. Patient with a new fever, elevated white count, high risk of fungal infection in a patient who is on total parenteral nutrition, currently on Eraxis. 3. Lower abdominal wound. Local care to continue with wound V.A.C. to be changed Tuesday, , Tuesday. Continues pressure of 125 mmHg. This was discussed in detail with the nurse taking care of the patient. MMODL / IJN: [id number] /
[2018-10-17] MEDS: INSULIN DETEMIR (LEVEMIR) 100 UNIT/ML SYR SQ SCH (20:24)
--- NOTE | 2018-10-18 | P.PN ---
Progress Note - Text Progress Note Date: 10/17/18 Presenting complaint: Perforated viscus Interval history: Patient admitted perforated acute diverticulitis. . Had a sigmoid colectomy and has a drain in place with partial closure of the incision. NG tube in place. Bishop catheter in place Today-. Remains in the ICU. . On the ventilator. FiO2 50. PEEP of 5. 2 feeding is being advanced to 20 mL an hour. Did put on some liquid stool. Wound VAC has no output. Patient somewhat delirious. Social workers looking into placement.. Review of systems: Unable to obtain as patient is not really following commands Current medications reviewed that included: IV anidulafunginl, IV Zosyn, IV Flagyl l On examination: VITAL SIGNS: 98.9, 81, 18, 94/50, 96% on the ventilator GENERAL: Laying in bed, sometimes moves about EYES: Pupils equal. Conjunctiva normal. HEENT: External appearance of nose and ears normal, oral cavity dry. NECK: JVD unable to assess; tracheostomy in place. HEART: Heart sounds regular, no edema. LUNGS: Respiratory rate increased; decreased breath sounds. ABDOMEN: Distention, left-sided colostomy , abdominal wound VAC in place. SAMY drain, tender, no mass palpable. PSYCH: Unable to assess. NEUROLOGICAL: Cranial nerves grossly intact; no facial asymmetry, pupils reactive, does move about, appears to follow commands Investigations reviewed in the clinical context White count 9.5, hemoglobin 8.6, platelets 389, potassium 3.9, creatinine 1.0 Abdominal wound culture growing anaerobic gram-negative bacilli and E. coli and Pseudomonas aeruginosa Assessment: -Acute perforated sigmoid diverticulitis with secondary peritonitis, -Sigmoid colectomy with a resultant colostomy and a SAMY drain in place -Hypotensive and septic shock, status post pressure support -Acute renal failure, ATN from septic shock, with significant improvement -Paroxysmal atrial flutter,, rapid initially,, now in sinus rhythm -Coronary artery disease with prior history of stent and bypass -Hyperlipidemia -Essential hypertension history of -Primary osteoarthritis -BPH -Hypothyroidism -Chronic gout -PTSD -Coumadin monitoring. Status post vitamin K and fresh frozen plasma. -Acute delirium and acute metabolic and encephalopathy, multifactorial Plan: Continue with IV antibiotic and IV antifungal. 2 feeding is is gradually being advanced. apartment hotel manager looking into placement. Antibiotics to be finalized per Dr. Bernardo. Overall prognosis guarded. Will do an EEG. To make sure there is no underlying seizure activity
[2018-10-18 00:06] LABS: Glucose,Whole Blood 147 mg/dL (75-99)
[2018-10-18] MEDS: INSULIN ASPART (NovoLOG) 100 UNIT/ML VIAL SQ SCH ×3 (00:50→12:53)
[2018-10-18] MEDS: HYDROmorphone 1 MG/ML 1 ML SYRINGE IVP PRN ×5 (02:54→15:18)
[2018-10-18] MEDS: IPRATROPIUM-ALBUTEROL 3 ML NEB INHALATION SCH ×3 (03:03→13:06)
[2018-10-18 05:53] LABS: Glucose,Whole Blood 88 mg/dL (75-99)
[2018-10-18] MEDS: metroNIDAZOLE-NS PMX 500 MG in SALINE 1 100ML.BAG IVPB SCH ×2 (06:00→12:16)
[2018-10-18] MEDS: LORazepam 2 MG/ML INJ IV PRN ×3 (06:01→16:24)
[2018-10-18] MEDS: D5-0.45% NACL WITH KCL 20MEQ/L 1,000 ML IV SCH ×2 (06:03→16:03)
[2018-10-18 07:23] LABS: ABG Base Excess -1.8 mmol/L; ABG HCO3 23 mmol/L (21-25); ABG Oxygen Saturation 97.3 % (94-97); ABG PCO2 36 mmHg (35-45); ABG PH 7.41 (7.35-7.45); ABG PO2 88 mmHg (83-108); ABG TCO2 24 mmol/L (19-24); Allen Test Performed? Yes
[2018-10-18] MEDS: PIPERACILLIN-TAZOBACTAM 3.375 GM in SODIUM CHLORIDE 0.9% 100 ML IVPB SCH ×2 (07:38→15:18)
[2018-10-18] MEDS: METOPROLOL TARTRATE 5 MG/5 ML VIAL IVP SCH ×2 (07:38→15:17)
[2018-10-18 08:17] LABS: Calcium 7.4 mg/dL (8.4-10.2); Potassium 4.1 mmol/L (3.5-5.1)
--- NOTE | 2018-10-18 08:32 | XR ---
EXAMINATION TYPE: XR chest 1V DATE OF EXAM: 10/18/2018 CLINICAL HISTORY: Difficulty breathing progress study. TECHNIQUE: Single AP portable semiupright view of the chest is obtained. COMPARISON: Chest x-ray from one day earlier and older studies. FINDINGS: A right-sided PICC line and flexible tracheostomy tube are redemonstrated. Overlying marx al wires and mediastinal clips are again seen. Cardiac silhouette size is stable and enlarged. There is bibasilar opacities and central vascular congestion which remains present. Upper lungs are clear w ithout pneumothorax. Prior right mid rib resection is again seen. IMPRESSION: Overall stable findings, mild cardiomegaly with mild central vascular congestion and sm all bilateral pleural effusions with associated bibasilar atelectasis and/or infiltrate all are redem onstrated.
[2018-10-18 08:36] LABS: Anisocytosis Slight; Basophils % (A) 0 %; Eosinophils # (A) 0.2 k/uL (0-0.7); Eosinophils % (A) 3 %; HCT 30.1 % (39.0-53.0); Hypochromasia Marked; Lymphocytes # (A) 0.8 k/uL (1.0-4.8); Lymphocytes % (A) 10 %; MCH 31.1 pg (25.0-35.0); MCV 103.8 fL (80.0-100.0); Macrocytosis Moderate; Mean Platelet Volume 8.7; Monocytes # (A) 0.3 k/uL (0-1.0); Monocytes % (A) 4 %; Neutrophils # (A) 6.2 k/uL (1.3-7.7); Neutrophils % (A) 80 %; Platelet Count 357 k/uL (150-450); Poikilocytosis Moderate; WBC 7.7 k/uL (3.8-10.6)
[2018-10-18] MEDS: ANIDULAFUNGIN 100 MG in SODIUM CHLORIDE 0.9% 100 ML IVPB SCH (09:05)
[2018-10-18] MEDS: PANTOPRAZOLE 40 MG/10 ML VIAL IVP SCH (09:06)
[2018-10-18] MEDS: PRAVASTATIN SODIUM 40 MG TAB PO SCH (09:06)
[2018-10-18] MEDS: CHLORHEXIDINE GLUCONATE 15 ML CUP MUCOUS MEM SCH (09:06)
[2018-10-18] MEDS: ASPIRIN 81 MG PO SCH (09:06)
--- NOTE | 2018-10-18 09:27 | P.PN ---
Subjective Progress Note Date: 10/18/18 CHIEF COMPLAINT: Abdominal pain HISTORY OF PRESENT ILLNESS: Patient is status post exploratory laparotomy, sigmoid colectomy with end colostomy, and drainage of abscess secondary to perforated diverticulitis. Patient is also s/p trach and PEG tube placement. Patient remains on mechanical ventilation in the ICU. Remains off sedation. He is able to nod yes or no to questions. He denies abdominal pain. Tube feeding infusing at 40cc/hr. patient tolerating well. Colostomy with stool present. WBC 7.7. Hemoglobin 9.0. PHYSICAL EXAM: VITAL SIGNS: Reviewed GENERAL: Well-developed in no acute distress-remains on mechanical ventilation. HEENT: No sclera icterus. Extraocular movements grossly intact. Moist buccal mucosa. Head is atraumatic, normocephalic. NECK: Trach intact without signs of bleeding or infection. Supple without lymphadenopathy. CHEST: Non-labored respirations and equal bilateral excursions. remains on mechanical ventilation CARDIOVASCULAR: Regular rate with regular rhythm. Palpable 2+ radial pulses. ABDOMEN: Wound vac to abdomen. Ostomy intact with stool present. SAMY drain noted to right lower quadrant with dark old bloody drainage. MUSCULOSKELETAL: No clubbing, cyanosis. +1 edema to bilateral extremities NEUROLOGIC: No focal or lateralizing signs. Cranial nerves II through XII grossly intact. PSYCH: Patient awake and alert. Follows simple commands. SKIN: Well perfused. Good skin turgor. ASSESSMENT: 1. Perforated diverticulitis, status post exploratory laparotomy, sigmoid colectomy with end colostomy, and drainage of abscess 2. Sepsis, abdominal cultures positive for E. coli and pseudomonas aeruginosa 3. Peritonitis 4. Acute hypoxic respiratory failure, S/P trach and peg 5. Paroxysmal atrial fibrillation 6. Hypokalemia 7. Ileus PLAN: 1. Ventilator management per Dr. Llanos 2. Continue wound vac. Change M, W, F 3. Continue SAMY drain. Strip tubing Q4-6 hours 4. Continue tube feedings as tolerated. Advance slowly. Nurse practitioner note has been reviewed by physician. Signing provider agrees with the documented findings, assessment, and plan of care. Objective - Vital Signs Vital signs: Vital Signs Temp 99.7 F H 10/18/18 08:00 Pulse 101 H 10/18/18 09:00 Resp 28 H 10/18/18 09:00 BP 139/86 10/18/18 09:00 Pulse Ox 97 10/18/18 09:00 Intake & Output 10/17/18 10/18/18 10/18/18 18:59 06:59 18:59 Intake Total 2275 1875 455 Output Total 745 795 90 Balance 1530 1080 365 Weight 131.6 kg 134.2 kg Intake: IV 1835 1465 365 0.9NS 220 240 40 Anidulafungin 100 mg In 100 Sodium Chloride 0.9% 100 ml @ 84 mls/hr IVPB DAILY [facility] Rx#:[id number] D5-0.45% NaCl with KCl 950 1200 200 20Meq/l 1,000 ml @ 100 mls/hr IV .Q10H [facility] Rx#: [id number] Piperacillin-Tazobactam 3 150 25 25 .375 gm In Sodium Chloride 0.9% 100 ml @ 25 mls/hr IVPB Q8HR [facility] Rx# :[id number] Potassium Chloride 10 meq 200 In Water For Injection 1 100ml.bag @ 100 mls/hr IVPB Q1H [facility] Rx#: [id number] metroNIDAZOLE-NS PMX 500 200 100 mg In Saline 1 100ml.bag @ 100 mls/hr IVPB Q6HR [facility] Rx#:[id number] pressure bag 15 Tube Feeding 290 350 60 Other 150 60 30 Output: Drainage 5 Right Abdomen 5 Urine 740 695 90 Stool 100 Other: Voiding Method Indwelling Catheter Indwelling Catheter Indwelling Catheter ABP, PAP, CO, CI - Last Documented Arterial Blood Pressure 103/94 - Labs CBC & Chem 7: 10/18/18 07:30 10/18/18 07:30 Labs: Abnormal Lab Results - Last 24 Hours (Table) 10/17/18 10/17/18 10/18/18 Range/Units 11:41 17:04 00:03 RBC (4.30-5.90) m/uL Hgb (13.0-17.5) gm/dL Hct (39.0-53.0) % MCV (80.0-100.0) fL MCHC (31.0-37.0) g/dL RDW (11.5-15.5) % Lymphocytes # (1.0-4.8) k/uL ABG O2 Saturation (94-97) % Sodium (137-145) mmol/L Chloride (98-107) mmol/L BUN (9-20) mg/dL Glucose (74-99) mg/dL POC Glucose (mg/dL) 140 H 125 H 147 H (75-99) mg/dL Calcium (8.4-10.2) mg/dL 10/18/18 10/18/18 10/18/18 Range/Units 07:17 07:30 07:30 RBC 2.90 L (4.30-5.90) m/uL Hgb 9.0 L (13.0-17.5) gm/dL Hct 30.1 L (39.0-53.0) % MCV 103.8 H (80.0-100.0) fL MCHC 30.0 L (31.0-37.0) g/dL RDW 19.0 H (11.5-15.5) % Lymphocytes # 0.8 L (1.0-4.8) k/uL ABG O2 Saturation 97.3 H (94-97) % Sodium 147 H (137-145) mmol/L Chloride 119 H (98-107) mmol/L BUN 25 H (9-20) mg/dL Glucose 122 H (74-99) mg/dL POC Glucose (mg/dL) (75-99) mg/dL Calcium 7.4 L (8.4-10.2) mg/dL Microbiology - Last 24 Hours (Table) 10/12/18 09:50 Blood Culture - Preliminary Blood No Growth after 120 hours 10/12/18 09:47 Blood Culture - Preliminary Blood No Growth after 120 hours Assessment and Plan (1) Abdominal pain Current Visit: Yes Status: Acute Code(s): R10.9 - UNSPECIFIED ABDOMINAL PAIN SNOMED Code(s): 73453011 (2) Perforation of sigmoid colon due to diverticulitis Current Visit: Yes Status: Acute Code(s): K57.20 - DVTRCLI OF LG INT W PERFORATION AND ABSCESS W/O BLEEDING SNOMED Code(s): 6218486387373390 (3) Respiratory failure Current Visit: Yes Status: Acute Code(s): J96.90 - RESPIRATORY FAILURE, UNSP, UNSP W HYPOXIA OR HYPERCAPNIA SNOMED Code(s): 711395980 (4) History of atrial fibrillation Current Visit: No Status: Acute Code(s): Z86.79 - PERSONAL HISTORY OF OTHER DISEASES OF THE CIRCULATORY SYSTEM SNOMED Code(s): 386865825 (5) Sepsis Current Visit: No Status: Acute Code(s): A41.9 - SEPSIS, UNSPECIFIED ORGANISM SNOMED Code(s): 14267262
[2018-10-18] MEDS ORDERED: QUEtiapine 25 MG TAB PO SCH (10:00)
--- NOTE | 2018-10-18 10:54 | P.PN ---
Subjective Progress Note Date: 10/18/18 Principal diagnosis: Acute hypoxic respiratory failure, abdominal sepsis. Patient was reevaluated today on 10/16/2018, patient presented over 2 weeks ago with abdominal sepsis, underwent sigmoid colectomy and diverting colostomy for perforated diverticular abscess. He is now postoperative day #15. Patient failed weaning, and he underwent tracheostomy. Obviously the patient developed hypoxic respiratory failure secondary to sepsis from his abdominal infection. As far as his tracheostomy is concerned, his postoperative day #6. Multiple attempts to wean the patient have failed, today I even gave him a short weaning trial with a pressure support of 15 and CPAP, and he became extremely tachypneic, his respiratory rate was up in the 40s, and he had mostly very shallow breathing. Hence decided not to pursue any further weaning at this point. His other medical problems included ileus requiring holding enteral feeding for the last 2 days. He had intermittent episodes of paroxysmal atrial fibrillation, chronic anemia, profound weakness, critical illness polyneuropath y, and he also had abdominal infection secondary to E. coli and Pseudomonas. As well as anaerobic infection from the peritoneal fluid. Blood cultures have been negative, tip of the central line catheter was negative for infection, blood cultures have been negative. Patient remains on antifungal therapy/Eraxis, he is also on Dilaudid for pain, insulin, updrafts using albuterol with Atrovent, Ativan when necessary, metoprolol 5 mg IV push every 8 hours when necessary, Flagyl, Protonix, Zosyn, pravastatin, and he is also on IV fluids. Labs continued to show leukocytosis with WBC count of 13.1 hemoglobin is 9.1 ABG this morning showed a pO2 of 97 pCO2 of 32 pH of 7.48. His ventilator settings are assist control rate 18, volume control plus, PEEP is at 5, FiO2 is 50%. ABG as noted electrolytes are normal BUN is 33 creatinine 1.02 blood sugar is 68. Patient was reevaluated today on 10/17/2018, remains in the ICU on mechanical ventilation. Ventilator settings are basically the same as noted above. Patient is status post sigmoid colectomy and diverting colostomy for perforated diverticular abscess, he is now postoperative day #16. Patient failed weaning and he required a tracheostomy. He is postoperative day #7. Again I attempted to wean the patient today to pressure support and CPAP, patient became extremely tachypneic, and his breathing was very shallow. In spite of using a pressure support of 18 and CPAP. Hence placed back on assist control mode of mechanical ventilation, and I have explained to the son that it would be best to eventually arrange for the patient will [facility]. In the meantime the patient remains on antibiotics, remains on bronchodilators, remains on GI and DVT prophylaxis, he is hemodynamically stable, not requiring any pressors, and his colostomy is functional. ABG today showed a pO2 of 95 pCO2 of 35 pH of 7.44 and this is on a 50% FiO2. WBC count 9.5 hemoglobin is 8.6. Reevaluated today on 10/18/2018, patient remains in the ICU on mechanical ventilation. His ventilator settings are basically the same, patient is calm, however gets agitated easily once awakened, failed weaning trial yesterday, and we will likely try another weaning trial with a pressure support and CPAP today. Continues to have significant. Secretions in his tracheostomy, and these were suctioned by respiratory therapy. Patient is being [facility] for possible transfer for further weaning. His postoperative day #17/sigmoid colectomy and colostomy and his postoperative day #8/tracheostomy. Chest x-ray is basically the same, continues to show mild cardiomegaly and mild central vascular congestion, small bilateral pleural effusions, and by basilar atelectasis. Labs were all reviewed, CBC is relatively normal WBC count 7.7 hemoglobin is 9. ABG this morning showed a pO2 of 88 pCO2 of 36 pH of 7.41. Sodium is a bit elevated at 147 BUN is 25 creatinine 1.05. Patient is arousable and he follows simple instructions, he is off propofol at present. Objective - Vital Signs Vital signs: Vital Signs Temp 99.7 F H 10/18/18 08:00 Pulse 88 10/18/18 10:00 Resp 18 10/18/18 10:00 BP 100/55 10/18/18 10:00 Pulse Ox 97 10/18/18 10:00 Intake & Output 10/17/18 10/18/18 10/18/18 18:59 06:59 18:59 Intake Total 2275 1875 1025 Output Total 740 795 285 Balance 1530 1080 740 Weight 131.6 kg 134.2 kg Intake: IV 1835 1465 715 0.9NS 220 240 40 Anidulafungin 100 mg In 100 100 Sodium Chloride 0.9% 100 ml @ 84 mls/hr IVPB DAILY [facility] Rx#:[id number] D5-0.45% NaCl with KCl 950 1200 400 20Meq/l 1,000 ml @ 100 mls/hr IV .Q10H [facility] Rx#: [id number] Piperacillin-Tazobactam 3 150 25 75 .375 gm In Sodium Chloride 0.9% 100 ml @ 25 mls/hr IVPB Q8HR [facility] Rx# :[id number] Potassium Chloride 10 meq 200 In Water For Injection 1 100ml.bag @ 100 mls/hr IVPB Q1H [facility] Rx#: [id number] metroNIDAZOLE-NS PMX 500 200 100 mg In Saline 1 100ml.bag @ 100 mls/hr IVPB Q6HR [facility] Rx#:[id number] pressure bag 15 Tube Feeding 290 350 220 Other 150 60 90 Output: Drainage 5 20 Right Abdomen 5 20 Urine 740 695 265 Stool 100 Other: Voiding Method Indwelling Catheter Indwelling Catheter Indwelling Catheter ABP, PAP, CO, CI - Last Documented Arterial Blood Pressure 103/94 - Exam Physical Exam: Revealed a 83-year-old white male, on mechanical ventilation, follows simple instructions. Head: Atraumatic, normocephalic, tracheostomy is noted to be intact. HEENT:[Neck is supple.] [No neck masses.] [No thyromegaly.] [No JVD.] Chest: [Symmetrical chest expansion, crackles and rhonchi noted bilaterally. No chest wall tenderness..] Cardiac Exam: [Normal S1 and S2, no S3 gallop, no murmur.] Abdomen: [Soft, mid abdominal incision is dry and clean, intact, wound VAC is in place, SAMY drain is noted with bloody fluid noted in the SAMY drain, no rebound, no guarding, bowel sounds are hypoactive. Colostomy seems to be functional. Extremities: [No clubbing, 1+ bipedal edema, no cyanosis.] Neurological Exam: Arousable, follows simple instructions, no gross focal neurologic deficit. Psychiatric: Depressed mood, blunt affect, could not fully assess mental status. But seems to follow simple instructions. Skin: No rashes. Lymphatics: No lymphadenopathy. - Labs CBC & Chem 7: 10/18/18 07:30 10/18/18 07:30 Labs: Abnormal Lab Results - Last 24 Hours (Table) 10/17/18 10/17/18 10/18/18 Range/Units 11:41 17:04 00:03 RBC (4.30-5.90) m/uL Hgb (13.0-17.5) gm/dL Hct (39.0-53.0) % MCV (80.0-100.0) fL MCHC (31.0-37.0) g/dL RDW (11.5-15.5) % Lymphocytes # (1.0-4.8) k/uL ABG O2 Saturation (94-97) % Sodium (137-145) mmol/L Chloride (98-107) mmol/L BUN (9-20) mg/dL Glucose (74-99) mg/dL POC Glucose (mg/dL) 140 H 125 H 147 H (75-99) mg/dL Calcium (8.4-10.2) mg/dL 10/18/18 10/18/18 10/18/18 Range/Units 07:17 07:30 07:30 RBC 2.90 L (4.30-5.90) m/uL Hgb 9.0 L (13.0-17.5) gm/dL Hct 30.1 L (39.0-53.0) % MCV 103.8 H (80.0-100.0) fL MCHC 30.0 L (31.0-37.0) g/dL RDW 19.0 H (11.5-15.5) % Lymphocytes # 0.8 L (1.0-4.8) k/uL ABG O2 Saturation 97.3 H (94-97) % Sodium 147 H (137-145) mmol/L Chloride 119 H (98-107) mmol/L BUN 25 H (9-20) mg/dL Glucose 122 H (74-99) mg/dL POC Glucose (mg/dL) (75-99) mg/dL Calcium 7.4 L (8.4-10.2) mg/dL Microbiology - Last 24 Hours (Table) 10/12/18 09:50 Blood Culture - Preliminary Blood No Growth after 120 hours 10/12/18 09:47 Blood Culture - Preliminary Blood No Growth after 120 hours Assessment and Plan Assessment: Impression: 1 acute hypoxic respiratory failure secondary to abdominal sepsis. 2 status post colectomy and diverting colostomy for diverticular abscess per foration, postoperative day # 17 3 Abdominal sepsis secondary to E. coli and Pseudomonas in addition to gram- negative anaerobes/Bacteroides species. Patient remains on Flagyl and Zosyn. And on Eraxis. Colostomy seems to be functioning. 4 acute ileus, patient was given bowel rest, however tube feeding will be restarted today, via PEG tube, and is in a be restarted slowly. 5 paroxysmal atrial fibrillation, presently in sinus rhythm. 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 7 electrolytes imbalance, multifactorial, being addressed on a daily basis. 8 failure to wean, status post tracheostomy postoperative day # 8 Multiple comorbidities including history of hypothyroidism, hypertension, degenerative joint disease, hyperlipidemia, and chronic anemia. Recommendation: Continue ventilatory support, we'll try another attempt to wean the patient, this would be a pressure support and CPAP, will continue to address the issue of possibly transferring the [facility]. Continue nutritional support, antibiotics, antifungal therapy, patient was approved by his primary insurance for possible [facility], patient remains relatively ill, and we will continue present supportive care measures. Continue GI and DVT prophylaxis. Prognosis remains extremely poor and guarded. Critical care time is 34 minutes Time with Patient: Greater than 30
[2018-10-18 12:27] LABS: Glucose,Whole Blood 131 mg/dL (75-99)
[2018-10-18 13:03] VITALS: RESP 18
--- NOTE | 2018-10-18 13:12 | P.DS ---
Providers Date of admission: 09/30/18 13:34 Expected date of discharge: 10/18/18 Attending physician: Cosme Colon Consults: 09/30/18 12:17 Consult Physician Routine Consulting Provider: Rony Woodward Consult Reason/Comments: SBO Do you want consulting provider notified?: Already Contacted 09/30/18 23:52 Consult Physician Routine Consulting Provider: Tobi Llanos Consult Reason/Comments: POSSIBLE FLUID OVERLOAD. ORDERED BY DR COLON TO SEND TO ICU Do you want consulting provider notified?: Yes 10/01/18 00:34 Consult Physician Routine Consulting Provider: Campos Soares Consult Reason/Comments: cad/hypotension Do you want consulting provider notified?: Yes 10/01/18 12:55 Consult Physician Routine Consulting Provider: Gerald Good Consult Reason/Comments: abd sepsis Do you want consulting provider notified?: Yes 10/01/18 17:08 Consult Physician Routine Consulting Provider: Vincent Larkin Consult Reason/Comments: ATN Do you want consulting provider notified?: Yes 10/08/18 08:33 Consult Physician Routine Consulting Provider: Andreas Bernardo Consult Reason/Comments: Sepsis Do you want consulting provider notified?: Yes Primary care physician: [facility] Hospital Course: Hospital course: Patient admitted perforated acute diverticulitis. . Had a sigmoid colectomy and has a drain in place with partial closure of the incision. NG tube in place. Bishop catheter in place. Patient has a wound VAC on the lower half of the abdominal wound. Not draining anything. Tolerating tube feeding at 30 mL an hour. Putting out some liquid stools in the ostomy bag. Patient remains to be delirious. We'll start patient's Coumadin today. Discussed with Leonor from surgical team okay per Dr. Woodward to be discharged. Also discussed with Dr. good from ID to discharge in 1 more week of both antibiotics. Discussion discharge planning more than 35 minutes Consultants: Dr. Llanos from critical care Dr. Woodward general surgery Dr. Good from ID Dr. almanza etc all from cardiology On examination: VITAL SIGNS: 99, 99, 20, 124/61, 97% on ventilator GENERAL: Laying in bed, occasionally restless EYES: Pupils equal. Conjunctiva normal. HEENT: External appearance of nose and ears normal, oral cavity dry. NECK: JVD unable to assess; tracheostomy in place. HEART: Heart sounds regular, no edema. LUNGS: Respiratory rate increased; decreased breath sounds. ABDOMEN: Distention, left-sided colostomy , abdominal wound VAC in place. SAMY drain, tender, no mass palpable. PSYCH: Unable to assess. NEUROLOGICAL: Cranial nerves grossly intact; no facial asymmetry, pupils reactive, does move about, appears to follow commands Investigations reviewed in the clinical context White count 7.7 hemoglobin 9 platelets 357 potassium 4.1 creatinine 1.05 Abdominal wound culture growing anaerobic gram-negative bacilli and E. coli and Pseudomonas aeruginosa Assessment: -Acute perforated sigmoid diverticulitis with secondary peritonitis, -Sigmoid colectomy with a resultant colostomy and a SAMY drain in place -Hypotensive and septic shock, status post pressure support -Acute renal failure, ATN from septic shock, with significant improvement -Paroxysmal atrial flutter,, rapid initially,, now in sinus rhythm -Coronary artery disease with prior history of stent and bypass -Hyperlipidemia -Essential hypertension history of -Primary osteoarthritis -BPH -Hypothyroidism -Chronic gout -PTSD -Coumadin monitoring. Status post vitamin K and fresh frozen plasma. -Acute delirium and acute metabolic and encephalopathy, multifactorial Prognosis-guarded [facility] Patient Condition at Discharge: Undetermined Plan - Discharge Summary New Discharge Prescriptions: New Artificial Tears-Hypromellose [Artificial Tear Drops] 1 drops BOTH EYES TID PRN bottle PRN Reason: Dry Eye(S) Insulin Detemir (Levemir) [Levemir] 10 unit SQ HS syr INSULIN ASPART (NovoLOG) [NovoLOG (formulary)] 0 unit SQ Q6H vial Famotidine [Pepcid] 20 mg PO BID #1 tablet Chlorhexidine Gluconate [Peridex] 15 ml MUCOUS MEM BID solution QUEtiapine [SEROquel] 25 mg PO BID #6 tab Continue Ezetimibe [Zetia] 10 mg PO HS Tamsulosin [Flomax] 0.8 mg PO HS Pravastatin Sodium [Pravachol] 40 mg PO HS Colchicine 0.6 mg PO DAILY PRN PRN Reason: GOUT Metoprolol Tartrate [Lopressor] 25 mg PO Q12H Nitroglycerin Sl Tabs [Nitrostat] 0.4 mg SUBLINGUAL Q5M PRN PRN Reason: Chest Pain Warfarin [Coumadin] 5 mg PO MOTUWETHFRSA Aspirin 81 mg PO DAILY Warfarin [Coumadin] 2.5 mg PO SALDIVAR Cyanocobalamin [Vitamin B-12] 500 mcg PO DAILY Multivit-Min/FA/Lycopen/Lutein [Centrum Silver Tablet] 1 tab PO DAILY Levothyroxine Sodium [Levoxyl] 75 mcg PO DAILY Ipratropium/Albuterol Sulfate [Combivent Respimat Inhaler] 1 puff INHALATION RT-QID Discontinued Cholecalciferol [Vitamin D3 (25 Mcg = 1000 Iu)] 1,000 unit PO DAILY Benzonatate [Tessalon Perles] 100 mg PO TID PRN PRN Reason: Cough predniSONE 20 mg PO BID Pregabalin [Lyrica] 75 mg PO BID No Action ALPRAZolam [Xanax] 0.5 mg PO Q8H PRN PRN Reason: Anxiety amLODIPine [Norvasc] 5 mg PO HS Discharge Medication List Ezetimibe [Zetia] 10 mg PO HS 08/14/13 [History] Tamsulosin [Flomax] 0.8 mg PO HS 08/14/13 [History] ALPRAZolam [Xanax] 0.5 mg PO Q8H PRN 08/11/15 [History] Colchicine 0.6 mg PO DAILY PRN 01/14/16 [History] Pravastatin Sodium [Pravachol] 40 mg PO HS 01/14/16 [History] Metoprolol Tartrate [Lopressor] 25 mg PO Q12H 02/10/16 [History] Nitroglycerin Sl Tabs [Nitrostat] 0.4 mg SUBLINGUAL Q5M PRN 02/10/16 [History] Warfarin [Coumadin] 5 mg PO MOTUWETHFRSA 03/26/16 [History] Aspirin 81 mg PO DAILY 04/09/16 [History] Warfarin [Coumadin] 2.5 mg PO SALDIVAR 04/09/16 [History] Cyanocobalamin [Vitamin B-12] 500 mcg PO DAILY 07/08/16 [History] Multivit-Min/FA/Lycopen/Lutein [Centrum Silver Tablet] 1 tab PO DAILY 07/08/16 [History] Levothyroxine Sodium [Levoxyl] 75 mcg PO DAILY 09/26/18 [History] amLODIPine [Norvasc] 5 mg PO HS 09/26/18 [History] Ipratropium/Albuterol Sulfate [Combivent Respimat Inhaler] 1 puff INHALATION RT- QID 09/30/18 [History] Artificial Tears-Hypromellose [Artificial Tear Drops] 1 drops BOTH EYES TID PRN bottle 10/18/18 [Rx] Chlorhexidine Gluconate [Peridex] 15 ml MUCOUS MEM BID solution 10/18/18 [Rx] Famotidine [Pepcid] 20 mg PO BID #1 tablet 10/18/18 [Rx] INSULIN ASPART (NovoLOG) [NovoLOG (formulary)] 0 unit SQ Q6H vial 10/18/18 [Rx] Insulin Detemir (Levemir) [Levemir] 10 unit SQ HS syr 10/18/18 [Rx] QUEtiapine [SEROquel] 25 mg PO BID #6 tab 10/18/18 [Rx] Follow up Appointment(s)/Referral(s): Dilshad Lopez DO [Primary Care Provider] - 1-2 days Activity/Diet/Wound Care/Special Instructions: Colosotmy Care Instructions: Last pouching system change: 10.05.2018 Current osotmy products utilized: Convatec one piece cut to fit #[id number] (three from hospital) Jonas seal to skin crease (3 from hospital) No sting prep pads
[2018-10-18] MEDS ORDERED: WARFARIN 5 MG TAB PO ONE (13:15)
--- NOTE | 2018-10-18 13:50 | PN ---
PROGRESS NOTE DATE OF SERVICE: 10/18/2018 REASON FOR FOLLOWUP: Abdominal abscess from ruptured diverticulitis. INTERVAL HISTORY: The patient is currently afebrile. The patient is hemodynamically stable, not on any pressor support. His FiO2 is currently stable at 50%. Continue on TPN. No diarrhea reported by the nursing staff. He was unable to provide any history. PHYSICAL EXAMINATION: On examination, blood pressure 124/61 with a pulse of 99, temperature 99. He is 97% on 50% FiO2. General description is an elderly male lying in bed in no distress. RESPIRATORY SYSTEM: Unlabored breathing. Some coarse breath sounds at the bases. No wheeze. HEART: S1, S2. Regular rate and rhythm. ABDOMEN: Soft, no tenderness. EXTREMITIES: Trace edema of feet. LABS: Hemoglobin is 9, white count 7.7, BUN of 25, creatinine 1.05. DIAGNOSTIC IMPRESSION AND PLAN: 1. Patient with abdominal abscess culture positive for Escherichia coli, Pseudomonas and anaerobic gram negative. This patient did have a ruptured diverticulitis, status post diverting colostomy. Also for which the patient is currently on Zosyn. Continue for another 5 to 7 days to finish course of therapy. 2. Patient with a fever, new fever and elevated white count, consider for possible Soha infection. At this patient was high risk because of the TPN and long-term antibiotic use. The patient's fever responded to Eraxis that will be continued though cultures have been negative. To continue with Eraxis for another week. Plan of care was discussed in detail with the admitting physician who is working on transferring the [facility]. Continue supportive care. MMODL / IJN: [id number] /
[2018-10-18 16:07] VITALS: BP 90/49; PULSE 85; TEMP 99.2
--- NOTE | 2018-10-18 16:23 | EEG ---
ELECTROENCEPHALOGRAM REPORT CLINICAL HISTORY: This is an 18-channel EEG with one-channel EKG recording on an 83-year-old male to rule out seizure activity. FINDINGS: Wakefulness and drowsiness were obtained during the recording. In the maximal awake state, a moderate-voltage 7 Hz posterior-dominant background rhythm was demonstrated. This was fairly regulated, fairly sustained, symmetric and reactive to eye opening. Low-voltage faster frequencies were best seen over the frontal central head regions. Photic stimulation produced a symmetric driving response and a few flash frequencies. Drowsiness was manifested by attenuation of the posterior-dominant background rhythm. No deeper sleep architecture was seen. The main feature of this recording is the presence of intermittent right frontal sharp waves, maximal at F4, as well as intermittent moderate-voltage 5 Hz right frontal slow waves, also maximal at F4. No electrographic seizures were recorded. SUMMARY: This EEG is abnormal in wakefulness and drowsiness due to the presence of: 1. Right frontal sharp wave discharges, maximal at F4. 2. Intermittent right frontal slow waves. 3. Background slowing. INTERPRETATION: This EEG is abnormal and consistent with the interictal expression of a partial epilepsy. This places the patient at increased risk for partial and secondarily generalized seizures. The focal slowing is a nonspecific sign of focal cerebral dysfunction in the involved region. These findings are superimposed on the background, which supports a mild diffuse encephalopathy. MMODL / IJN: [id number] /
--- NOTE | 2018-10-19 12:28 | CDI ---
Documentation Clarification Form Date: 10/19/2018 From: Abby Candelario Phone: If questions call Maria Esther Cronin @ [phone], Hours-8:30 am & 5 pm MLeonard Kaur Admit Date: 09/30/2018 1:34:00 PM Patient Name: Rene Martinez Visit Number: [id number] Discharge Date: 10/18/2018 4:51:00 PM ATTENTION: The Clinical Documentation Specialists (CDI) and [facility] Coding Staff appreciate your assistance in clarifying documentation. Please respond to the clarification below the line at the bottom and electronically sign. The CDI & [facility] Coding staff will review the response and follow-up if needed. Please note: Queries are made part of the Legal Health Record. If you have any questions, please contact the author of this message via ITS. Dr. Cecily Partida Atrial Flutter is documented in the ED note, H&P, your consult, numerous PNs, and DS. History/Risk factors: s/p ablation, diverticulitis of sigmoid w peritonitis & abscess, sepsis EKG/telemetry: sinus tachycardia with premature atrial complexes Treatment: IV Cardizem drip & Coumadin In your professional opinion, in order to capture the severity of condition; can you please clarify the type of Atrial Flutter if known? Typical/Type I Atypical/Type II Other, please specify Unable to determine Pt has afib, not Flutter MTDD
--- NOTE | 2018-10-21 15:50 | P.PN ---
Progress Note - Text Progress Note Date: 10/08/18 REASON FOR FOLLOWUP: Abdominal abscess from ruptured diverticulitis. INTERVAL HISTORY: The patient is afebrile. Patient has been currently weaned off the vent. Patient is hemodynamically stable. Not on any pressor support. FiO2 is currently stable. No output in the colostomy bag. PHYSICAL EXAMINATION: Blood pressure is 13/60 with a pulse of 90, temperature 98. He is 94% on 40% FiO2. General description is an elderly male male lying in bed in no distress. Respiratory system: Unlabored breathing with decreased breath sounds in the bases. No wheeze. Heart S1, S2. Regular rate and rhythm. Abdomen soft, no tenderness. Extremities: No edema of the feet. LABS: Reviewed DIAGNOSTIC IMPRESSION AND PLAN: 1. Patient with abdominal abscess from ruptured sigmoid diverticulitis, post laparotomy and diverting colostomy. Culture positive for E coli and anaerobic gram-negative and Pseudomonas Currently covered with Zosyn to continue. 2. Lower abdominal incision wound. Local wound care with wound VAC to be changed q.48 hours. Continue supportive care.
--- NOTE | 2018-10-27 14:06 | P.OP ---
Date of Procedure: 10/10/18 Preoperative Diagnosis: Respiratory failure Malnutrition Postoperative Diagnosis: Respiratory failure Malnutrition Procedure(s) Performed: Tracheostomy PEG tube placement Anesthesia: ALVINO Surgeon: Rony Woodward Estimated Blood Loss (ml): 5 Pathology: none sent Condition: stable Disposition: PACU Description of Procedure: The patient's placed the operative table in the supine position. He received general anesthesia. His neck was prepped and draped in usual sterile fashion. Skin was divided with 15 blade. The platysma was divided with cautery. The strap muscle were divided in the midline. The strap muscles were retracted laterally. The trachea was exposed. A tracheotomy was made between the second and third tracheal rings. An #8 Portex tube was placed into the trachea. And tell CO2 was confirmed. The patient was connected to the ventilator. The skin incision was closed with 3-0 nylon sutures. Next a anoscope was placed patient's oropharynx passed in the esophagus and the stomach. Stomach was insufflated with air. There is no incision any gastric outlet obstruction. A suitable light reflux was seen in the anterior abdominal wall. A small skin incision was made 11 blade. A needle was placed under direct vision into the stomach. The needle was snared. The wire was placed through the needle and the wire was snared brought the oropharynx. The PEG tube was then placed over the wire and brought down into the stomach. The bolster was secured at the 3 cm ashely. The patient tolerated procedure well was sent back to the ICU in stable condition.
== END 2018-10-18 16:51 | DRG 3 ==
LOC: EC 08:10 → 4SSUR 13:34 → 2SICU 10-01 00:48
PROVIDERS: ADMIT Hospitalist; ATTEND Hospitalist
PROC: 0D1M0Z4 Bypass Descending Colon to Cutaneous, Open Approach (ICD-10-PCS; 2018-10-01)
PROC: 0W9J0ZX Drainage of Pelvic Cavity, Open Approach, Diagnostic (ICD-10-PCS; 2018-10-01)
PROC: 5A1955Z Respiratory Ventilation, Greater than 96 Consecutive Hours (ICD-10-PCS; 2018-10-01)
PROC: 06HM33Z Insertion of Infusion Device into Right Femoral Vein, Percutaneous Approach (ICD-10-PCS; 2018-10-01)
PROC: 30233K1 Transfusion of Nonautologous Frozen Plasma into Peripheral Vein, Percutaneous Approach (ICD-10-PCS; 2018-10-01)
PROC: 30233N1 Transfusion of Nonautologous Red Blood Cells into Peripheral Vein, Percutaneous Approach (ICD-10-PCS; 2018-10-01)
PROC: 0D9670Z Drainage of Stomach with Drainage Device, Via Natural or Artificial Opening (ICD-10-PCS; 2018-10-01)
PROC: 5A09357 Assistance with Respiratory Ventilation, Less than 24 Consecutive Hours, Continuous Positive Airway Pressure (ICD-10-PCS; 2018-10-01)
PROC: 0DTN0ZZ Resection of Sigmoid Colon, Open Approach (ICD-10-PCS; principal; 2018-10-01 09:34)
PROC: 03HY32Z Insertion of Monitoring Device into Upper Artery, Percutaneous Approach (ICD-10-PCS; 2018-10-02)
PROC: 4A133B1 Monitoring of Arterial Pressure, Peripheral, Percutaneous Approach (ICD-10-PCS; 2018-10-02)
PROC: 4A133J1 Monitoring of Arterial Pulse, Peripheral, Percutaneous Approach (ICD-10-PCS; 2018-10-02)
PROC: 3E0436Z Introduction of Nutritional Substance into Central Vein, Percutaneous Approach (ICD-10-PCS; 2018-10-03)
PROC: 02H633Z Insertion of Infusion Device into Right Atrium, Percutaneous Approach (ICD-10-PCS; 2018-10-04)
PROC: 0B110F4 Bypass Trachea to Cutaneous with Tracheostomy Device, Open Approach (ICD-10-PCS; 2018-10-10)
PROC: 0DH63UZ Insertion of Feeding Device into Stomach, Percutaneous Approach (ICD-10-PCS; 2018-10-10)
PROC: 3E0G76Z Introduction of Nutritional Substance into Upper GI, Via Natural or Artificial Opening (ICD-10-PCS; 2018-10-11)
DX: A41.51 Sepsis due to Escherichia coli [E. coli] (principal); R65.21 Severe sepsis with septic shock; N17.0 Acute kidney failure with tubular necrosis; K65.1 Peritoneal abscess; K65.0 Generalized (acute) peritonitis; G93.41 Metabolic encephalopathy; J96.01 Acute respiratory failure with hypoxia; K57.20 Diverticulitis of large intestine with perforation and abscess without bleeding; J98.11 Atelectasis; E87.4 Mixed disorder of acid-base balance; D62 Acute posthemorrhagic anemia; E87.0 Hyperosmolality and hypernatremia; Z99.11 Dependence on respirator [ventilator] status; J44.1 Chronic obstructive pulmonary disease with (acute) exacerbation; K56.609 Unspecified intestinal obstruction, unspecified as to partial versus complete obstruction; J90 Pleural effusion, not elsewhere classified; R18.8 Other ascites; G62.81 Critical illness polyneuropathy; D68.9 Coagulation defect, unspecified; E46 Unspecified protein-calorie malnutrition; A41.52 Sepsis due to Pseudomonas; E87.70 Fluid overload, unspecified; N18.3 Chronic kidney disease, stage 3 (moderate); I48.0 Paroxysmal atrial fibrillation; E11.22 Type 2 diabetes mellitus with diabetic chronic kidney disease; E87.8 Other disorders of electrolyte and fluid balance, not elsewhere classified; E86.9 Volume depletion, unspecified; E87.6 Hypokalemia; T50.2X5A Adverse effect of carbonic-anhydrase inhibitors, benzothiadiazides and other diuretics, initial encounter; I12.9 Hypertensive chronic kidney disease with stage 1 through stage 4 chronic kidney disease, or unspecified chronic kidney disease; E78.5 Hyperlipidemia, unspecified; E03.9 Hypothyroidism, unspecified; K21.9 Gastro-esophageal reflux disease without esophagitis; M81.0 Age-related osteoporosis without current pathological fracture; K82.8 Other specified diseases of gallbladder; T45.515A Adverse effect of anticoagulants, initial encounter; I25.10 Atherosclerotic heart disease of native coronary artery without angina pectoris; N40.0 Benign prostatic hyperplasia without lower urinary tract symptoms; G89.29 Other chronic pain; M54.9 Dorsalgia, unspecified; F43.10 Post-traumatic stress disorder, unspecified; L30.9 Dermatitis, unspecified; M19.91 Primary osteoarthritis, unspecified site; I25.2 Old myocardial infarction; Z79.82 Long term (current) use of aspirin; Z79.890 Hormone replacement therapy; Z79.01 Long term (current) use of anticoagulants; Z79.899 Other long term (current) drug therapy; Z95.1 Presence of aortocoronary bypass graft; Z87.891 Personal history of nicotine dependence; Z90.79 Acquired absence of other genital organ(s); Z87.39 Personal history of other diseases of the musculoskeletal system and connective tissue; Z95.5 Presence of coronary angioplasty implant and graft; Z98.890 Other specified postprocedural states; Z87.440 Personal history of urinary (tract) infections; Z98.42 Cataract extraction status, left eye; Z98.41 Cataract extraction status, right eye; Z82.49 Family history of ischemic heart disease and other diseases of the circulatory system
CPT/HCPCS: 36415; 36573; 36600; 43246; 51701; 51798; 71045; 74018; 74019; 74177; 76705; 80048; 80053; 81001; 82040; 82330; 82805; 83605; 83735; 84100; 84132; 84478; 85025; 85027; 85610; 85730; 86850; 86900; 86901; 86920; 87040; 87070; 87075; 87077; 87186; 87205; 88307; 94002; 94003; 94640; 94660; 95816; 96374; 96375; 96376; 99285

== ENCOUNTER 2019-01-27 22:06 | Inpatient (IN) | payer OTHER, MEDICARE ==
[2019-01-27] MEDS ORDERED: PIPERACILLIN-TAZOBACTAM 3.375 GM in SODIUM CHLORIDE 0.9% 100 ML IVPB STA (23:06)
[2019-01-27] MEDS ORDERED: ACETAMINOPHEN TAB 325 MG TAB PO STA (23:06)
[2019-01-27] MEDS ORDERED: VANCOMYCIN IV PER PHARMACY 1 EACH MISC MISCELLANE PRN (23:06)
--- NOTE | 2019-01-27 23:22 | ED ---
General Adult HPI - General Chief complaint: Shortness of Breath Stated complaint: poss infection Time Seen by Provider: 01/27/19 22:20 Source: patient, family, EMS, RN notes reviewed, old records reviewed Mode of arrival: ambulatory Limitations: altered mental status - History of Present Illness Initial comments: Chief complaint and history of present illness this is an 83-year-old male who lives at a nursing facility. He was sent in because he had drainage from a previous ileostomy site. Son reports this is happened in the past. The patient has chronic pain to his lower abdomen as well as a stage IV sacral decubitus. Past medical problems as obtained from previous charts include A. fib, a flutter, coronary artery disease, angina, hyperlipidemia, hypertension, insulin- dependent diabetes ,previous [place], osteoarthritis, prostate disorder, skin disorder, low thyroid. Significant for this past includes perforated diverticulitis. Subsequent surgeries. He's also had a history of gout, emphysema chronic back pain and this was esophageal stricture resulting in 3 endoscopies for removal of food bolus. Less started that was in August 2015. Guevara rgeries include cardiac ablation, coronary bypass. Heart catheterization with stenting. And tonsillectomy. Dianne history none contributory. His past psychological history includes PTSD. Former smoker currently no alcohol. No drug use. Family history; no reported cancer. In reviewing the notes from the original facility from which he was transferred, prior to going tomorrow would. They kept records concerning the output from the left upper quadrant colostomy hole. He stated in the notes that he has had on- again off-again odorless drainage. And wrote in the nose to expect stool from t he site from time to time. - Related Data Home Medications Medication Instructions Recorded Confirmed Ezetimibe [Zetia] 10 mg PEG/G-TUBE HS@2100 08/14/13 01/27/19 ALPRAZolam [Xanax] 0.5 mg PEG/G-TUBE Q8H PRN 08/11/15 01/27/19 Metoprolol Tartrate [Lopressor] 25 mg PEG/G-TUBE TID@0600,1400,2100 02/10/16 01/27/19 Nitroglycerin Sl Tabs [Nitrostat] 0.4 mg SUBLINGUAL Q5M PRN 02/10/16 01/27/19 Aspirin 81 mg PEG/G-TUBE DAILY@1700 04/09/16 01/27/19 Multivit-Min/FA/Lycopen/Lutein 1 tab PEG/G-TUBE DAILY@1700 07/08/16 01/27/19 [Centrum Silver Tablet] Levothyroxine Sodium [Levoxyl] 75 mcg PEG/G-TUBE DAILY@0600 09/26/18 01/27/19 amLODIPine [Norvasc] 5 mg PEG/G-TUBE HS@2100 09/26/18 01/27/19 Acetaminophen Tab [Tylenol Tab] 650 mg PEG/G-TUBE Q4H PRN 01/27/19 01/27/19 Bisacodyl [Dulcolax] 10 mg RECTAL DAILY PRN 01/27/19 01/27/19 Enoxaparin [Lovenox] 40 mg SQ DAILY@1700 01/27/19 01/27/19 HYDROcodone/APAP 10-325MG [Comstock 1 tab PEG/G-TUBE Q4H PRN 01/27/19 01/27/19 10-325] Magnesium Hydroxide [Milk of 7,200 mg PEG/G-TUBE DAILY PRN 01/27/19 01/27/19 Magnesia Concentrate] Na Phos,M-B/Na Phos,Di-Ba [Fleet 133 ml RECTAL ONCE PRN 01/27/19 01/27/19 Adult] Nystatin 100,000Unit/gm Cream 1 applic TOPICAL TID 01/27/19 01/27/19 [Mycostatin Cream] Ondansetron [Zofran] 4 mg PEG/G-TUBE Q6H PRN 01/27/19 01/27/19 Polyethylene Glycol 3350 [Miralax] 17 gm PEG/G-TUBE DAILY PRN 01/27/19 01/27/19 Pregabalin [Lyrica] 25 mg PEG/G-TUBE BID@0800,2100 01/27/19 01/27/19 Protonix 40mg Packet 40 mg PEG/G-TUBE DAILY@0600 01/27/19 01/27/19 QUEtiapine [SEROquel] 50 mg PEG/G-TUBE BID@0800,2100 01/27/19 01/27/19 Saliva Stimulant Agents Comb.3 2 spray MUCOUS MEM 01/27/19 01/27/19 [Biotene Moisturizing Mouth] TID@0800,1200,1700 Zolpidem [Ambien] 5 mg PEG/G-TUBE HS PRN 01/27/19 01/27/19 Previous Rx's Medication Instructions Recorded Artificial Tears-Hypromellose 1 drops BOTH EYES TID PRN bottle 10/18/18 [Artificial Tear Drops] Allergies Allergy/AdvReac Type Severity Reaction Status Date / Time No Known Allergies Allergy Verified 01/27/19 23:06 Review of Systems ROS Statement: Those systems with pertinent positive or pertinent negative responses have been documented in the HPI. Review of systems; this is an 83-year-old male at a nursing facility. As noted the pain he had what appeared to be some purulent drainage from left upper quadrant wound that had been previously a functioning ileostomy site. Patient also has chronic respiratory distress problems. Patient complains of pain to his cubitus ulcer. All feeding is through feeding tube. Asked medical problems are recorded in the HPI ROS Other: All systems not noted in ROS Statement are negative. Past Medical History Past Medical History: Atrial Fibrillation, Atrial Flutter, Coronary Artery Disease (CAD), Chest Pain / Angina, Hyperlipidemia, Hypertension, Myocardial In farction ([place]), Osteoarthritis (OA), Prostate Disorder, Skin Disorder, Thyroid Disorder Additional Past Medical History / Comment(s): Diverticulitis, HX PERFORATION. Gout. Eczema. BPH. Chronic Back Pain D/T PINCHED NERVE, USES CANE FOR DISTANCES. HX VERTIGO. FOOD GETTING STUCK IN THROAT - REMOVAL X3. Last Myocardial Infarction Date:: 08/2015 History of Any Multi-Drug Resistant Organisms: None Reported Past Surgical History: Cardiac Ablation, Coronary Bypass/CABG, Heart Catheterization With Stent, Tonsillectomy Additional Past Surgical History / Comment(s): 02/11/16 Cardiac stent to SVG to diagonal; TOTAL 3 NOW. CABG X3 0n 07/11/15. CYST REMOVED FROM HEART 1958; LEFT TESTICLE REMOVED; МАРИНА CATARACTS. EGD W/ REMOVAL FB X3. Past Anesthesia/Blood Transfusion Reactions: No Reported Reaction Additional Past Anesthesia/Blood Transfusion Reaction / Comment(s): no family hx Date of Last Stent Placement:: 02/11/16 Past Psychological History: PTSD Smoking Status: Former smoker Past Alcohol Use History: None Reported Past Drug Use History: None Reported - Past Family History Mother Family Medical History: Unable to Obtain Additional Family Medical History / Comment(s): Mother had a pacemaker. Father History Unknown: Yes Family Medical History: Myocardial Infarction ([place]) General Exam - General Exam Comments Initial Comments: General: The patient is awake and alert, complains of pain to his buttocks area. The nursing staff at the nursing facility noted a purulent looking but not foul- smelling drainage from previous ileostomy site. Son reports there has been drainage including stool from the same site in the past.. Vital signs temperature 97.8 repeated at 99 in emergency room. Pulse 113 respiratory rate 22 pulse ox 95% room air blood pressure 116/68 Eye: Pupils are equal, round and reactive to light, extra-ocular movements are intact; there is normal conjunctiva bilaterally. No signs of icterus. Ears, nose, mouth and throat: Dry mucous membranes patient receives nutrition through a feeding gastrostomy tube. History of esophageal stricture Neck: The neck is supple, no complaint of neck pain Cardiovascular: Tachycardic heart rate, 113. No murmur appreciated. Respiratory: Denying shortness of breath no apparent coughing. Lungs appear clear to auscultation Gastrointestinal: Patient has multiple surgeries to the midline. Apparently is looking drainage from previous ileostomy site in the left upper quadrant. The patient has a functioning colostomy bag in the left upper quadrant. Back: Patient has stage IV decubitus ulcer. He complains of pain in this area. Musculoskeletal: Patient is nonambulatory. Feet wrapped with soft comfort peds. Pitting edema b ilaterally. Neurological: Nonambulatory since September. Moves upper extremities Skin: Pale, no significant bruising. Psychiatric: Cooperative, hard of hearing, complaining of pain and requesting pain med ication. Limitations: altered mental status Course Vital Signs 01/27/19 01/28/19 01/28/19 22:40 00:05 00:42 Temperature 97.8 F 99.1 F Pulse Rate 113 H 116 H 120 H Respiratory 22 32 H 32 H Rate Blood Pressure 116/68 126/67 105/65 O2 Sat by Pulse 95 96 Oximetry EKG Findings - EKG Comments: EKG Findings:: EKG was done and reviewed at 2228 showing sinus tachycardia rate 120 the right bundle branch block. TX interval is 178 QRS 1:30 QT is [address] Miramontes. This EKG was compared to one done on 10/01/2018 and they are similar. Dr. Miramontes Medical Decision Making - Medical Decision Making Medical decision making; this is an 83-year-old male sent emergency [facility] from [facility] the extended rehab type program. It was noted the patient had a low-grade temperature and had drainage from a previous left sided colostomy. Family reports this is happened multiple times in the past. And in reviewing the notes that came from the first facility prior to transfer to the second facility. It noted that this will happen on occasion. Patient's significant past history of having a perforated diverticulitis resulting in multiple subsequent surgeries for washout and colostomies. The patient is bedbound. Not able to walk since September. Heart appearing. The patient's labs show white count of 8 hemoglobin and hematocrit 33.9. INR is 1.0. Potassium 4.7, BUN 20 creatinine 0.69 the GFR of 89. Glucose 129. Plasma lactic acid elevated at 2.5. Troponin 0.013. The patient has already been receiving IV fluids prior to labs being reported. Patient's vital signs remained stable. He is been started on Vanco mycin and Zosyn. Patient has a chronic indwelling Bishop catheter. His urinalysis does show moderate blood with greater than 180 RBCs and 7 WBCs. Negative nitrite, small leukoesterase. Chest x-ray was reviewed by radiologist his impression is enlarged heart but no gross failure, mild right basal atelectasis. Improved aeration of lungs as compared to last exam. As read by Dr. Conrad I discussed the situation with the patient at bedside and family at bedside patient be admitted to the hospital. All cultures have been drawn patient's resting more comfortably. - Lab Data Result diagrams: 01/27/19 22:28 01/27/19 22:28 Lab Results 01/27/19 01/27/19 01/27/19 Range/Units 22:28 22:28 22:28 WBC 8.0 (3.8-10.6) k/uL RBC 3.56 L (4.30-5.90) m/uL Hgb 10.0 L (13.0-17.5) gm/dL Hct 33.9 L (39.0-53.0) % MCV 95.2 (80.0-100.0) fL MCH 28.2 (25.0-35.0) pg MCHC 29.6 L (31.0-37.0) g/dL RDW 18.8 H (11.5-15.5) % Plt Count 520 H (150-450) k/uL Neutrophils % 66 % Lymphocytes % 6 % Monocytes % 9 % Eosinophils % 12 % Basophils % 2 % Neutrophils # 5.3 (1.3-7.7) k/uL Lymphocytes # 0.5 L (1.0-4.8) k/uL Monocytes # 0.7 (0-1.0) k/uL Eosinophils # 1.0 H (0-0.7) k/uL Basophils # 0.2 (0-0.2) k/uL Hypochromasia Marked Anisocytosis Slight Macrocytosis Slight PT (9.0-12.0) sec INR (<1.2) APTT (22.0-30.0) sec Sodium 139 (137-145) mmol/L Potassium 4.7 (3.5-5.1) mmol/L Chloride 101 (98-107) mmol/L Carbon Dioxide 30 (22-30) mmol/L Anion Gap 8 mmol/L BUN 20 (9-20) mg/dL Creatinine 0.69 (0.66-1.25) mg/dL Est GFR (CKD-EPI)AfAm >90 (>60 ml/min/1.73 sqM) Est GFR (CKD-EPI)NonAf 89 (>60 ml/min/1.73 sqM) Glucose 129 H (74-99) mg/dL Plasma Lactic Acid Alexey 2.5 H* (0.7-2.0) mmol/L Calcium 9.4 (8.4-10.2) mg/dL Total Bilirubin 0.3 (0.2-1.3) mg/dL AST 37 (17-59) U/L ALT 35 (21-72) U/L Alkaline Phosphatase 186 H (38-126) U/L Creatine Kinase 21 L (55-170) U/L Troponin I (0.000-0.034) ng/mL Total Protein 6.8 (6.3-8.2) g/dL Albumin 2.8 L (3.5-5.0) g/dL Urine Color Urine Appearance (Clear) Urine pH (5.0-8.0) Ur Specific Forsan (1.001-1.035) Urine Protein (Negative) Urine Glucose (UA) (Negative) Urine Ketones (Negative) Urine Blood (Negative) Urine Nitrite (Negative) Urine Bilirubin (Negative) Urine Urobilinogen (<2.0) mg/dL Ur Leukocyte Esterase (Negative) Urine RBC (0-5) /hpf Urine WBC (0-5) /hpf Urine WBC Clumps (None) /hpf Ur Squamous Epith Cells (0-4) /hpf Urine Bacteria (None) /hpf Urine Mucus (None) /hpf 01/27/19 01/27/19 01/28/19 Range/Units 22:28 22:28 00:17 WBC (3.8-10.6) k/uL RBC (4.30-5.90) m/uL Hgb (13.0-17.5) gm/dL Hct (39.0-53.0) % MCV (80.0-100.0) fL MCH (25.0-35.0) pg MCHC (31.0-37.0) g/dL RDW (11.5-15.5) % Plt Count (150-450) k/uL Neutrophils % % Lymphocytes % % Monocytes % % Eosinophils % % Basophils % % Neutrophils # (1.3-7.7) k/uL Lymphocytes # (1.0-4.8) k/uL Monocytes # (0-1.0) k/uL Eosinophils # (0-0.7) k/uL Basophils # (0-0.2) k/uL Hypochromasia Anisocytosis Macrocytosis PT 10.6 (9.0-12.0) sec INR 1.0 (<1.2) APTT 26.5 (22.0-30.0) sec Sodium (137-145) mmol/L Potassium (3.5-5.1) mmol/L Chloride (98-107) mmol/L Carbon Dioxide (22-30) mmol/L Anion Gap mmol/L BUN (9-20) mg/dL Creatinine (0.66-1.25) mg/dL Est GFR (CKD-EPI)AfAm (>60 ml/min/1.73 sqM) Est GFR (CKD-EPI)NonAf (>60 ml/min/1.73 sqM) Glucose (74-99) mg/dL Plasma Lactic Acid Alexey (0.7-2.0) mmol/L Calcium (8.4-10.2) mg/dL Total Bilirubin (0.2-1.3) mg/dL AST (17-59) U/L ALT (21-72) U/L Alkaline Phosphatase (38-126) U/L Creatine Kinase (55-170) U/L Troponin I 0.013 (0.000-0.034) ng/mL Total Protein (6.3-8.2) g/dL Albumin (3.5-5.0) g/dL Urine Color Yellow Urine Appearance Clear (Clear) Urine pH 7.0 (5.0-8.0) Ur Specific Forsan 1.019 (1.001-1.035) Urine Protein 1+ H (Negative) Urine Glucose (UA) Negative (Negative) Urine Ketones Negative (Negative) Urine Blood Moderate H (Negative) Urine Nitrite Negative (Negative) Urine Bilirubin Negative (Negative) Urine Urobilinogen <2.0 (<2.0) mg/dL Ur Leukocyte Esterase Trace H (Negative) Urine RBC >182 H (0-5) /hpf Urine WBC 7 H (0-5) /hpf Urine WBC Clumps Rare H (None) /hpf Ur Squamous Epith Cells 1 (0-4) /hpf Urine Bacteria Rare H (None) /hpf Urine Mucus Rare H (None) /hpf Disposition Clinical Impression: Dyspnea, Stage IV decubitus ulcer Disposition: ADMITTED IP TO THIS [facility] Condition: Undetermined Is patient prescribed a controlled substance at d/c from ED?: No Referrals: Dilshad Lopez DO [Primary Care Provider] - 1-2 days
[2019-01-27 23:24] LABS: ALT 35 U/L (21-72); AST 37 U/L (17-59); African American GFR (CKD) >90 (>60 ml/min/1.73 sqM); Albumin 2.8 g/dL (3.5-5.0); Alkaline Phosphatase 186 U/L (38-126); Anion Gap 8 mmol/L; Blood Urea Nitrogen 20 mg/dL (9-20); Calcium 9.4 mg/dL (8.4-10.2); Carbon Dioxide 30 mmol/L (22-30); Chloride 101 mmol/L (98-107); Creatine Kinase 21 U/L (55-170); Glucose 129 mg/dL (74-99); Potassium 4.7 mmol/L (3.5-5.1); Sodium 139 mmol/L (137-145); Total Bilirubin 0.3 mg/dL (0.2-1.3); Total Protein 6.8 g/dL (6.3-8.2)
[2019-01-27] MEDS ORDERED: HYDROmorphone 0.5 MG/0.5 ML SYRINGE IM STA (23:27)
[2019-01-27 23:30] LABS: Anisocytosis Slight; Basophils # (A) 0.2 k/uL (0-0.2); Basophils % (A) 2 %; Eosinophils % (A) 12 %; HCT 33.9 % (39.0-53.0); Hypochromasia Marked; Lymphocytes # (A) 0.5 k/uL (1.0-4.8); Lymphocytes % (A) 6 %; MCH 28.2 pg (25.0-35.0); MCHC 29.6 g/dL (31.0-37.0); MCV 95.2 fL (80.0-100.0); Macrocytosis Slight; Mean Platelet Volume 6.9; Monocytes # (A) 0.7 k/uL (0-1.0); Monocytes % (A) 9 %; Neutrophils # (A) 5.3 k/uL (1.3-7.7); Neutrophils % (A) 66 %; Platelet Count 520 k/uL (150-450); RBC 3.56 m/uL (4.30-5.90); RDW 18.8 % (11.5-15.5)
[2019-01-27] MEDS: SODIUM CHLORIDE 0.9% 500 ML 500 ML IV SCH ×2 (23:30→23:32)
[2019-01-27 23:32] LABS: Partial Thromboplastin Time 26.5 sec (22.0-30.0); Prothrombin Time 10.6 sec (9.0-12.0)
--- NOTE | 2019-01-27 23:49 | XR ---
EXAMINATION TYPE: XR chest 1V portable DATE OF EXAM: 01/27/2019 COMPARISON: 10/18/2018 HISTORY: Fever TECHNIQUE: Single frontal view of the chest is obtained. FINDINGS: Heart is enlarged. There is no gross heart failure. There are sternal wires. There are gage st leads. There is mild linear density at the lung bases. IMPRESSION: Cardiomegaly. Mild right basilar atelectasis. There is improved aeration of the lungs co mpared to last exam. No gross heart failure.
[2019-01-28] MEDS ORDERED: VANCOMYCIN 1,500 MG in SODIUM CHLORIDE 0.9% 250 ML IVPB ONE ×2
[2019-01-28 01:03] LABS: Appearance,Urine Clear (Clear); Bacteria,Urine Rare /hpf; Bilirubin,Urine Negative (Negative); Blood,Urine Moderate (Negative); Color,Urine Yellow; Glucose,Urine (UA) Negative (Negative); Ketones,Urine Negative (Negative); Leukocyte Esterase,Urine Trace (Negative); Mucus,Urine Rare /hpf; Nitrite,Urine Negative (Negative); Protein,Urine 1+ (Negative); RBC,Urine >182 /hpf (0-5); Specific Gravity,Urine 1.019 (1.001-1.035); Squamous Epithelial Cell,Urine 1 /hpf (0-4); Urobilinogen,Urine <2.0 mg/dL (<2.0); WBC,Urine 7 /hpf (0-5)
[2019-01-28] MEDS ORDERED: NALOXONE 0.4 MG/ML 1 ML VIAL IV PRN (01:25)
[2019-01-28] MEDS ORDERED: IPRATROPIUM-ALBUTEROL 3 ML NEB INHALATION PRN (01:25)
[2019-01-28] MEDS ORDERED: MAGNESIUM HYDROXIDE 2,400 MG/10 ML CUP PEG/G-TUBE PRN (01:31)
[2019-01-28] MEDS ORDERED: ALPRAZolam 0.5 MG TAB PEG/G-TUBE PRN (01:31)
[2019-01-28] MEDS ORDERED: ONDANSETRON 4 MG TAB PEG/G-TUBE PRN (01:31)
[2019-01-28] MEDS ORDERED: ACETAMINOPHEN IV (For NPO) 1,000 MG in SALINE 1 100ML.BAG IVPB ONE (01:45)
[2019-01-28] MEDS: HYDROmorphone 0.5 MG/0.5 ML SYRINGE IVP PRN ×2 (02:33→15:01)
[2019-01-28] MEDS: SODIUM CHLORIDE 0.9% 1,000 ML IV SCH ×3 (02:48→17:48)
[2019-01-28] MEDS ORDERED: ARTIFICIAL TEARS-HYPROMELLOSE DROPS 15 ML BTL BOTH EYES PRN (09:00)
[2019-01-28] MEDS ORDERED: POLYETHYLENE GLYCOL 3350 17 GM POWD.PACK PEG/G-TUBE PRN (09:00)
[2019-01-28] MEDS: PIPERACILLIN-TAZOBACTAM 3.375 GM in SODIUM CHLORIDE 0.9% 100 ML IVPB SCH ×2 (09:51→17:47)
[2019-01-28] MEDS: PANTOPRAZOLE 40 MG/10 ML VIAL IV SCH (09:51)
[2019-01-28] MEDS: ENOXAPARIN 40 MG/0.4 ML SYRINGE SQ SCH (09:52)
[2019-01-28] MEDS: PREGABALIN 25 MG CAP PEG/G-TUBE SCH ×2 (10:31→21:45)
[2019-01-28] MEDS: HYDROcodone/APAP 10-325MG 1 EACH TAB PEG/G-TUBE PRN (10:31)
[2019-01-28] MEDS: EZETIMIBE 10 MG TAB PEG/G-TUBE SCH ×2 (10:32→21:45)
[2019-01-28] MEDS: QUEtiapine 50 MG TAB PEG/G-TUBE SCH ×2 (10:33→21:45)
[2019-01-28] MEDS: LEVOTHYROXINE 75 MCG TAB PEG/G-TUBE SCH (10:33)
[2019-01-28] MEDS: NYSTATIN 100,000UNIT/GM CREAM 30 GM TUBE TOPICAL SCH ×3 (10:35→20:28)
--- NOTE | 2019-01-28 13:38 | P.CNPUL ---
History of Present Illness Consult date: 01/28/19 History of present illness: 3-year-old male patient who got transferred to the ED [facility] the [facility] facility because of increased heart rate, labored breathing and some drainage from the previous described colostomy sites. The patient is extremely debilitated. He had a complicated course in hospital 3 months ago. Since then he never made it home. He is still nonambulatory. He is nothing by mouth. He has a PEG tube in place and is receiving enteral feeding for nutritional support. He has a colostomy. He has a stage IV sacral decub ulcer and he has a wound VAC in place. The ulcer is quite extensive measuring at least 15 x 10 cm in size with some purulent drainage and foul smelling material covering the wound base. This has been the breathing on multiple occasions. The patient is known to me. I have taken care of him on previous ICU stays. He was febrile time of admission. His heart rate is still elevated at 109. His temperature was 100.4 axillary. The patient was started on IV fluids. He was sort also on IV antibiotics given a combination of Zosyn and vancomycin. Chest x-ray shows no acute abnormalities. There is no evidence of any pneumonia or consolidation. UA is also negative for any infection. He is awake. He has a congested cough. Unable to bring up sputum point in time. The patient has also several superficial wounds over the anterior abdominal wall. There is another one on the right lateral thigh area. A poor historian. Unable to give history.The patient was in the hospital back in October 2018. At that time he had a sigmoid colectomy and diverting colostomy for the privilege sedated diverticular abscess formation. The patient was a difficult to wean. His course was complicated by abdominal sepsis secondary to E. coli and pseudomonas aeruginosa. He was treated with broad-spectrum antibiotics. During the course of the treatment he had episodes of atrial fibrillation. He Was taken to [facility] for further care and weaning. During the course of his treatment [facility], he became septic again had to be taken to [facility] where he underwent 3 additional surgeries and the colostomy site was reconstructed unchanged. For now the patient is a colostomy on the right. He does have a healing colostomy site on the left which is on off leaking some gastric material. Nevertheless, the anterior abdominal wound seems to be healing nicely at this point in time. The patient during the process was taken off the mechanical ventilator and he was decannulated probably around December 2018. He had a very complicated course at [facility]. Ultimately was transferred back to [facility] and later on to with [facility] for further care. He has hypertension, hyperlipidemia, hypothyroidism him a coronary artery disease, diabetes mellitus, previous MD, BPH, and osteoarthritis as comorbid conditions. He has had previous cardiac catheterization and stenting. He is post bypass surgery. He was not receiving any antibiotics on outpatient basis. Review of Systems Constitutional: Reports daytime sleepiness, Reports fatigue, Reports lethargy, Reports malaise, Reports poor appetite, Reports weakness Eyes: denies blurred vision, denies bulging eye, denies decreased vision Ears: deny: decreased hearing, ear discharge, earache, tinnitus Ears, nose, mouth and throat: Reports dysphagia, Denies headache, Denies sore throat Breasts: absent: as per HPI, gynecomastia Cardiovascular: Reports shortness of breath, Denies chest pain Respiratory: Reports as per HPI, Reports dyspnea Gastrointestinal: Reports as per HPI (She has a PEG tube in place. The patient is a diverting colostomy. He has a open wound over the anterior abdominal wall which seems to be healing at this point in time and there is no significant drainage.) Genitourinary: Reports as per HPI Musculoskeletal: Reports as per HPI (She muscle weakness and the patient has bee n unable to ambulate since surgeries.), Reports muscle weakness Musculoskeletal: bilateral: ankle swelling, absent: ankle pain, ankle stiffness Integumentary: Reports wounds (Stage IV sacral decub ulcer, anterior abdominal wound which is healing with secondary intentions.) Neurological: Reports confusion, Reports weakness Psychiatric: Reports as per HPI, Reports change in appetite, Reports confusion Endocrine: Reports as per HPI Hematologic/Lymphatic: Reports as per HPI Allergic/Immunologic: Reports as per HPI Past Medical History Past Medical History: Atrial Fibrillation, Coronary Artery Disease (CAD), Chest Pain / Angina, Hyperlipidemia, Hypertension, Myocardial Infarction (MD), Osteoarthritis (OA), Prostate Disorder, Skin Disorder, Thyroid Disorder Additional Past Medical History / Comment(s): 3. Diverticulitis with development of intra-abdominal abscesses status post perforation, multiple abdominal surgeries requiring diabetic colostomy with subsequent revision that was done a mechanical [facility], prolonged ventilator dependent respiratory failure from which the patient was weaned off and was decannulated and he still has a PEG tube in place, gout, BPH, chronic back pain, multiple wounds largest being in his sacrum measuring at least 15 cm in size and the patient has a wound VAC in place. The patient also has an anterior abdominal wound which is healing nicely with secondary intention. He has not fully regained his ability to swall ow and he is receiving enteral feeding for nutritional support. Last Myocardial Infarction Date:: 08/2015 History of Any Multi-Drug Resistant Organisms: Other MDRO Past Surgical History: Bowel Resection, Cardiac Ablation, Coronary Bypass/CABG, Heart Catheterization With Stent, Tonsillectomy Additional Past Surgical History / Comment(s): 02/11/16 Cardiac stent to SVG to diagonal; TOTAL 3 NOW. CABG X3 0n 07/11/15. CYST REMOVED FROM HEART 1958; LEFT TESTICLE REMOVED; [employer]. EGD W/ REMOVAL FB X3. Ostomy which failed, and redone. Colostomy since September 2018. Issues with sepsis since. At [facility] family was told Rene had a VAP which was drug resistant, unsure of type, November 2018. 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 Smoking Status: Never smoker Past Alcohol Use History: None Reported Additional Past Alcohol Use History / Comment(s): Hx cigar/pipe smoker from teen. quit smoking 1972 Past Drug Use History: None Reported - Past Family History Mother Family Medical History: Unable to Obtain Additional Family Medical History / Comment(s): Mother had a pacemaker. Father History Unknown: Yes Family Medical History: Myocardial Infarction (MD) Medications and Allergies Home Medications Medication Instructions Recorded Confirmed Type Ezetimibe [Zetia] 10 mg PEG/G-TUBE HS@2100 08/14/13 01/27/19 History ALPRAZolam [Xanax] 0.5 mg PEG/G-TUBE Q8H PRN 08/11/15 01/27/19 History Metoprolol Tartrate [Lopressor] 25 mg PEG/G-TUBE TID@0600,1400,2100 02/10/16 01/27/19 History Nitroglycerin Sl Tabs [Nitrostat] 0.4 mg SUBLINGUAL Q5M PRN 02/10/16 01/27/19 History Aspirin 81 mg PEG/G-TUBE DAILY@1700 04/09/16 01/27/19 History Multivit-Min/FA/Lycopen/Lutein 1 tab PEG/G-TUBE DAILY@1700 07/08/16 01/27/19 History [Centrum Silver Tablet] Levothyroxine Sodium [Levoxyl] 75 mcg PEG/G-TUBE DAILY@0600 09/26/18 01/27/19 History amLODIPine [Norvasc] 5 mg PEG/G-TUBE HS@2100 09/26/18 01/27/19 History Artificial Tears-Hypromellose 1 drops BOTH EYES TID PRN bottle 10/18/18 01/27/19 Rx [Artificial Tear Drops] Acetaminophen Tab [Tylenol Tab] 650 mg PEG/G-TUBE Q4H PRN 01/27/19 01/27/19 History Bisacodyl [Dulcolax] 10 mg RECTAL DAILY PRN 01/27/19 01/27/19 History Enoxaparin [Lovenox] 40 mg SQ DAILY@1700 01/27/19 01/27/19 History HYDROcodone/APAP 10-325MG [Lorain 1 tab PEG/G-TUBE Q4H PRN 01/27/19 01/27/19 History 10-325] Magnesium Hydroxide [Milk of 7,200 mg PEG/G-TUBE DAILY PRN 01/27/19 01/27/19 History Magnesia Concentrate] Na Phos,M-B/Na Phos,Di-Ba [Fleet 133 ml RECTAL ONCE PRN 01/27/19 01/27/19 History Adult] Nystatin 100,000Unit/gm Cream 1 applic TOPICAL TID 01/27/19 01/27/19 History [Mycostatin Cream] Ondansetron [Zofran] 4 mg PEG/G-TUBE Q6H PRN 01/27/19 01/27/19 History Polyethylene Glycol 3350 [Miralax] 17 gm PEG/G-TUBE DAILY PRN 01/27/19 01/27/19 History Pregabalin [Lyrica] 25 mg PEG/G-TUBE BID@0800,2100 01/27/19 01/27/19 History Protonix 40mg Packet 40 mg PEG/G-TUBE DAILY@0600 01/27/19 01/27/19 History QUEtiapine [SEROquel] 50 mg PEG/G-TUBE BID@0800,2100 01/27/19 01/27/19 History Saliva Stimulant Agents Comb.3 2 spray MUCOUS MEM 01/27/19 01/27/19 History [Biotene Moisturizing Mouth] TID@0800,1200,1700 Zolpidem [Ambien] 5 mg PEG/G-TUBE HS PRN 01/27/19 01/27/19 History Allergies Allergy/AdvReac Type Severity Reaction Status Date / Time No Known Allergies Allergy Verified 01/27/19 23:06 Physical Exam Vitals: Vital Signs Temp Pulse Pulse Resp BP BP Pulse Ox 01/28/19 12:49 105 H 104/55 01/28/19 12:00 109 H 01/28/19 11:59 100.4 F H 109 H 32 H 96/52 98 01/28/19 11:50 100.4 F H 109 H 32 H 96/52 99 01/28/19 10:49 98.3 F 107 H 20 108/64 99 01/28/19 09:00 98.2 F 101 H 20 116/65 99 01/28/19 07:55 99.1 F 104 H 26 H 108/66 99 01/28/19 06:40 105 H 32 H 112/71 99 01/28/19 05:40 99.0 F 101 H 24 95/55 90 L 01/28/19 04:40 101 H 26 H 106/61 92 L 01/28/19 03:44 108 H 28 H 105/58 96 01/28/19 03:00 112 H 01/28/19 02:54 99.8 F H 112 H 26 H 111/62 97 01/28/19 02:17 121 H 20 107/61 96 01/28/19 00:42 120 H 32 H 105/65 01/28/19 00:05 99.1 F 116 H 32 H 126/67 96 01/27/19 22:40 97.8 F 113 H 22 116/68 95 Intake and Output 01/27/19 01/28/19 01/28/19 22:59 06:59 14:59 Output Total 350 Balance -350 Output: Urine 350 Other: Voiding Method Indwelling Catheter Indwelling Catheter Weight 99.79 kg Extremely ill-looking elderly gentleman, nonacute distress, very much debilitated Head exam was generally normal. There was no scleral icterus or corneal arcus. Mucous membranes were moist. Neck was supple and without jugular venous distension, thyromegaly, or carotid bruits. Carotids were easily palpable bilaterally. There was no adenopathy. The mucous membranes are dry and the patient has poor dental condition. The tracheostomy site over the anterior neck area has healed nicely. Lungs sounds are diminished bilaterally along with scattered rhonchi. Cardiac exam revealed the PMI to be normally situated and sized. The rhythm was regular and no extrasystoles were noted during several minutes of auscultation. The first and second heart sounds were normal and physiologic splitting of the second heart sound was noted. There were no murmurs, rubs, clicks, or gallops. Abdomen the patient has a large incision over the anterior abdominal and sites of previous colostomy that has been healing and he has a functioning colostomy on the right with a bag in place with positive output. The patient has a PEG tube in place. There is an anterior abdominal wound which is healing by secondary examination and secondary intention. The base of the wound is not covered with any purulent material. Bowel sounds are hypoactive at this point in time. Extremities revealed trace edema and there is no cyanosis or clubbing. A superficial wound over the lateral aspect of the right thigh. No cyanosis. No clubbing. Neurologically the patient follows only simple commands. Neurologic exam in general is nonfocal. Skin the patient has multiple wounds. The patient has a large sacral decub ulcer measuring at least 15 cm in size that has been the predominant multiple occasions. The base is covered still with purulent material. Wound VAC was removed. The patient also has an anterior abdominal wall wound which is healing nicely and the base is clear. Smaller superficial ulceration over the lower extremities. Results - Laboratory Findings CBC and BMP: 01/27/19 22:28 01/27/19:28 ABG WBC 8.0 k/uL (3.8-10.6) 01/27/19 22:28 RBC 3.56 m/uL (4.30-5.90) L 01/27/19:28 Hgb 10.0 gm/dL (13.0-17.5) L 10/19/19 22:28 Hct 33.9 % (39.0-53.0) L 01/27/19 22:28 MCV 95.2 fL (80.0-100.0) 01/27/19 22: MCH 28.2 pg (25.0-35.0) 01/27/19 22: MCHC 29.6 g/dL (31.0-37.0) L 01/27/19 22: RDW 18.8 % (11.5-15.5) H 01/27/19 22:28 Plt Count 520 k/uL (150-450) H 01/27/19 22:28 Neutrophils % 66 % 01/27/19 22: Lymphocytes % 6 % 01/27/19 22: Monocytes % 9 % 01/27/19 22: Eosinophils % 12 % 01/27/19 22: Basophils % 2 % 01/27/19 22:28 Neutrophils # 5.3 k/uL (1.3-7.7) 01/27/19 22:28 Lymphocytes # 0.5 k/uL (1.0-4.8) L 01/27/19 22:28 Monocytes # 0.7 k/uL (0-1.0) 01/27/19: Eosinophils # 1.0 k/uL (0-0.7) H 01/27/19: Basophils # 0.2 k/uL (0-0.2) 01/27/19 22:28 Hypochromasia Marked 01/27/19 22:28 Anisocytosis Slight 01/27/19 22:28 Macrocytosis Slight 01/27/19 22:28 PT 10.6 sec (9.0-12.0) 01/27/19 22:28 INR 1.0 (<1.2) 01/27/19:28 APTT 26.5 sec (22.0-30.0) 01/27/19 22:28 Sodium 139 mmol/L (137-145) 01/27/19 22:28 Potassium 4.7 mmol/L (3.5-5.1) 01/27/19 22:28 Chloride 101 mmol/L (98-107) 01/27/19 22:28 Carbon Dioxide 30 mmol/L (22-30) 01/27/19 22:28 Anion Gap 8 mmol/L 01/27/19 22:28 BUN 20 mg/dL (9-20) 01/27/19 22:28 Creatinine 0.69 mg/dL (0.66-1.25) 01/27/19 22:28 Est GFR (CKD-EPI)AfAm >90 (>60 ml/min/1.73 sqM) 01/27/19 22:28 Est GFR (CKD-EPI)NonAf 89 (>60 ml/min/1.73 sqM) 01/27/19 22:28 Glucose 129 mg/dL (74-99) H 01/27/19 22:28 Lactic Ac Sepsis Rflx Y 01/28/19 04:22 Plasma Lactic Acid Alexey 1.9 mmol/L (0.7-2.0) 01/28/19 07:28 Calcium 9.4 mg/dL (8.4-10.2) 01/27/19 22:28 Total Bilirubin 0.3 mg/dL (0.2-1.3) 01/27/19 22:28 AST 37 U/L (17-59) 01/27/19 22:28 ALT 35 U/L (21-72) 01/27/19 22:28 Alkaline Phosphatase 186 U/L (38-126) H 01/27/19 22:28 Creatine Kinase 21 U/L (55-170) L 01/27/19 22:28 Troponin I 0.013 ng/mL (0.000-0.034) 01/27/19 22:28 Total Protein 6.8 g/dL (6.3-8.2) 01/27/19 22:28 Albumin 2.8 g/dL (3.5-5.0) L 01/27/19 22:28 Urine Color Yellow 01/28/19 00:17 Urine Appearance Clear (Clear) 01/28/19 00:17 Urine pH 7.0 (5.0-8.0) 01/28/19 00:17 Ur Specific [place] 1.019 (1.001-1.035) 01/28/19 00:17 Urine Protein 1+ (Negative) H 01/28/19 00:17 Urine Glucose (UA) Negative (Negative) 01/28/19 00:17 Urine Ketones Negative (Negative) 01/28/19 00:17 Urine Blood Moderate (Negative) H 01/28/19 00:17 Urine Nitrite Negative (Negative) 01/28/19 00:17 Urine Bilirubin Negative (Negative) 01/28/19 00:17 Urine Urobilinogen <2.0 mg/dL (<2.0) 01/28/19 00:17 Ur Leukocyte Esterase Trace (Negative) H 01/28/19 00:17 Urine RBC >182 /hpf (0-5) H 01/28/19 00:17 Urine WBC 7 /hpf (0-5) H 01/28/19 00:17 Urine WBC Clumps Rare /hpf (None) H 01/28/19 00:17 Ur Squamous Epith Cells 1 /hpf (0-4) 01/28/19 00:17 Urine Bacteria Rare /hpf (None) H 01/28/19 00:17 Urine Mucus Rare /hpf (None) H 01/28/19 00:17 Influenza Type A RNA Not Detected (Not Detectd) 01/28/19 01:21 Influenza Type B (PCR) Not Detected (Not Detectd) 01/28/19 01:21 PT/INR, D-dimer PT 10.6 sec (9.0-12.0) 01/27/19 22:28 INR 1.0 (<1.2) 01/27/19 22:28 Abnormal lab findings: Abnormal Labs 01/27/19 01/27/19 01/27/19 22:28 22:28 22:28 RBC 3.56 L Hgb 10.0 L Hct 33.9 L MCHC 29.6 L RDW 18.8 H Plt Count 520 H Lymphocytes # 0.5 L Eosinophils # 1.0 H Glucose 129 H Plasma Lactic Acid Alexey 2.5 H* Alkaline Phosphatase 186 H Creatine Kinase 21 L Albumin 2.8 L Urine Protein Urine Blood Ur Leukocyte Esterase Urine RBC Urine WBC Urine WBC Clumps Urine Bacteria Urine Mucus 01/28/19 01/28/19 00:17 03:24 RBC Hgb Hct MCHC RDW Plt Count Lymphocytes # Eosinophils # Glucose Plasma Lactic Acid Aleexy 2.8 H* Alkaline Phosphatase Creatine Kinase Albumin Urine Protein 1+ H Urine Blood Moderate H Ur Leukocyte Esterase Trace H Urine RBC >182 H Urine WBC 7 H Urine WBC Clumps Rare H Urine Bacteria Rare H Urine Mucus Rare H - Diagnostic Findings Chest x-ray: image reviewed Assessment and Plan Plan: 1 acute infection suspected as the patient presented with fever and tachycardia and diminished level of consciousness. Source is considered to be the sacral decub which is large and covered by some purulent material. Wound VAC was removed and the patient was started on IV fluids and the patient is currently on 100 mL of normal saline addition to a combination of Zosyn and vancomycin. The patient a prolonged hospitalization at our facility and then a [facility] and would like to get the records on the microbiology as the patient was on antibiotics for extended period of time and the antibiotics were discontinued approximately 5 days ago. He has also other wounds over the anterior abdominal wall which is healing nicely. Chest x-ray is clear of any pulmonary infil trates or pneumonia. UA is negative. Bowel infection/intra-abdominal infection is felt to be less likely at this point. 2 history of complicated diverticulitis with development of left ventricular abscesses most colectomy and diverting colostomy with subsequent multiple surgeries done at [facility]. 3 history of abdominal sepsis with Pseudomonas and she E. coli 4 stage IV sacral decub oscillation 5 anterior abdominal wound, healing 6 Objective feeding for enteral feeding and nutritional support 7 prolonged hospitalization requiring intubation mechanical ventilation with subsequent decannulation the patient still has a PEG tube in place 8 coronary artery disease 9 BPH 10 diabetes mellitus 11 hypertension 12 hyperlipidemia And Continue IV fluids. Continue Zosyn and vancomycin. Infectious disease consultation. We'll put wet-to-dry and we'll reevaluate the wounds for possible debridement and for that reason we'll consult Dr. Lynne who has done and the patient's original surgery. The patient is hemodynamically stable at this point. Hold tube feeds. May need to send the stool for C. diff if there is any liquidy output. Keep the enteral feeding on hold for 24 hours. Continue with wound care. Lovenox for DVT prophylaxis. DuoNeb the right-sided pneumothorax on the clock. Keep patient nothing by mouth for now. May need to restart the enteral feeding at a later stage most the patient arrived to the intensive care unit. Continue with oral medications through the PEG tube. The case with the son. We'll try to get the records from [facility]. Would like to change this post status to DO NOT INTUBATE/DO NOT RESUSCITATE.
[2019-01-28 14:29] LABS: Glucose,Whole Blood 102 mg/dL (75-99)
[2019-01-28] MEDS: VANCOMYCIN 1,500 MG in SODIUM CHLORIDE 0.9% 250 ML IVPB SCH (14:39)
[2019-01-28] MEDS: DRY MOUTH SPRAY 44.3 SPRAY/44.3 ML SPRAY MUCOUS MEM SCH ×2 (14:39→17:49)
[2019-01-28] MEDS: ASPIRIN 81 MG PEG/G-TUBE SCH (17:48)
--- NOTE | 2019-01-28 19:47 | P.HPIM ---
History of Present Illness H&P Date: 01/28/19 Chief Complaint: Draining abdominal wound History of presenting complaint: This is a 82-year-old patient of Dr. Lopez. Patient was in the hospital from September 30 through October [id number]. Patient then had presented with acute perforated diverticulitis. Had a sigmoid colectomy, had a drain in place with partial closure of the incision. Patient and also the wound VAC on the lower half of the abdominal wall. Patient being followed by Dr. Woodward from general surgery and Dr. Park from infectious disease. [facility] Patient has been couple of times back and forth from [facility] to [facility]. And was transferred to [facility]. Patient was transferred from the [facility] here because of draining abdominal wound. Patient did have a colostomy in the past and had revision that was done at [facility]. Patient currently is a PEG tube for feeding. Patient's chronic stable medical conditions include gout, BPH, chronic low back pain, large sacral decubitus wound which patient had a wound VAC in place. Patient also is a large anterior abdominal wound which she's been healing with secondary intention. Patient is still remaining nothing by mouth. Other chronic stable medical conditions include coronary artery disease with bypass in 2016 colostomy since September 2018. Patient does communicate rather briefly. Patient oriented he was started on IV Zosyn and vancomycin. Blood pressures running a bit low. Patient with a tachycardic. Patient seen by Dr. Escalante from critical care and consultation also being to infectious disease doctor Xavier. Patient admitted to the ICU. Also tachycardic with fever. Review of systems: Unable to obtain except for that as above as patient lethargic. Past medical history: Coronary artery disease with stent and bypass, atrial flutter, hypertension, hyperlipidemia, osteoporosis status, BPH, hypothyroid, sigmoid diverticulitis with perforation, intra-abdominal abscess, gout, PTSD, colostomy, pneumonia, Social history: Patient is an ex-[employer] . Did smoke a pipe and cigar stopped 1971. Did recently has been between [facility] at [facility]. Had just moved to rehab at [facility]. Physical examination: VITAL SIGNS: 97.8, 113, 22, 11 6/68, 95% room air-. Temperature up to 100.4 GENERAL: BMI 29.8, laying in bed, tired but arousable EYES: Pupils equal. Conjunctiva pale HEENT: External appearance of nose and ears normal, oral cavity dry. NECK: JVD unable to assess; masses not palpable. HEART: Heart sounds irregular , no edema. LUNGS: Respiratory rate increased; decreased breath sounds. ABDOMEN: Soft, abdominal tenderness, no guarding no rigidity, liver spleen not palpable, no masses palpable, bowel sounds present. Colostomy bag. Feeding tube ; "wound "with a dressing LYMPHATICS: No lymph nodes palpable in the axilla and neck. PSYCH: Lethargic and unable to assessl. NEUROLOGICAL: Cranial nerves grossly intact; no facial asymmetry, power and sensation grossly intact DERMATOLOGICAL:: Large sacral wound stage IV Investigations reviewed in the clinical context White count 8 hemoglobin 10 platelets 520 potassium 4.7 creatinine 0.69. Lactic acid 2.5 albumin 2.8 EKG tracing personally reviewed by me-sinus tachycardia with right bundle branch block. Assessment: -Abdominal incisional wound with drainage. -Sepsis with multiple source of infection including large decubitus sacral wound and abdominal wound that is draining -History of t atrial flutter, -Coronary artery disease with prior history of stent and bypass -Sigmoid colectomy with a resultant colostomy -Hyperlipidemia -Essential hypertension -Primary osteoarthritis -BPH -Hypothyroidism -Chronic gout -PTSD -PEG tube feeding -Large stage IV sacral decubitus ulcer infected -Normocytic anemia of chronic disease Plan: Patient admitted to the ICU. Started antibiotics including Zosyn and vancomycin. Patient also received fluid boluses. PEG tube feeding to continue. Seen by drain tile machine operator Dr. Escalante. Dr. Park from [facility] was also consulted. We'll consult Dr. Woodward to hold the patient's is well known. Overall prognosis guarded. Blood cultures are pending. Past Medical History Past Medical History: Atrial Fibrillation, Atrial Flutter, Coronary Artery Disease (CAD), Chest Pain / Angina, Hyperlipidemia, Hypertension, Myocardial Infarction (VA), Osteoarthritis (OA), Prostate Disorder, Skin Disorder, Thyroid Disorder Additional Past Medical History / Comment(s): Diverticulitis, HX PERFORATION. Gout. Eczema. BPH. Chronic Back Pain D/T PINCHED NERVE, has been bedridden since September. HX VERTIGO. FOOD GETTING STUCK IN THROAT - REMOVAL X3. Last Myocardial Infarction Date:: 08/2015 History of Any Multi-Drug Resistant Organisms: Other MDRO Past Surgical History: Bowel Resection, Cardiac Ablation, Coronary Bypass/CABG, Heart Catheterization With Stent, Tonsillectomy Additional Past Surgical History / Comment(s): 02/11/16 Cardiac stent to SVG to diagonal; TOTAL 3 NOW. CABG X3 0n 07/11/15. CYST REMOVED FROM HEART 1958; LEFT TESTICLE REMOVED; МАРИНА CATARACTS. EGD W/ REMOVAL FB X3. Ostomy which failed, and redone. Colostomy since September 2018. Issues with sepsis since. At [facility] family was told Rene had a VAP which was drug resistant, unsure of type, November 2018. 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 Smoking Status: Never smoker Past Alcohol Use History: None Reported Additional Past Alcohol Use History / Comment(s): Hx cigar/pipe smoker from teen. quit smoking 1972 Past Drug Use History: None Reported - Past Family History Mother Family Medical History: Unable to Obtain Additional Family Medical History / Comment(s): Mother had a pacemaker. Father History Unknown: Yes Family Medical History: Myocardial Infarction (VA) Medications and Allergies Home Medications Medication Instructions Recorded Confirmed Type Ezetimibe [Zetia] 10 mg PEG/G-TUBE HS@2100 08/14/13 01/27/19 History ALPRAZolam [Xanax] 0.5 mg PEG/G-TUBE Q8H PRN 08/11/15 01/27/19 History Metoprolol Tartrate [Lopressor] 25 mg PEG/G-TUBE TID@0600,1400,2100 02/10/16 01/27/19 History Nitroglycerin Sl Tabs [Nitrostat] 0.4 mg SUBLINGUAL Q5M PRN 02/10/16 01/27/19 History Aspirin 81 mg PEG/G-TUBE DAILY@1700 04/09/16 01/27/19 History Multivit-Min/FA/Lycopen/Lutein 1 tab PEG/G-TUBE DAILY@1700 07/08/16 01/27/19 History [Centrum Silver Tablet] Levothyroxine Sodium [Levoxyl] 75 mcg PEG/G-TUBE DAILY@0600 09/26/18 01/27/19 History amLODIPine [Norvasc] 5 mg PEG/G-TUBE HS@2100 09/26/18 01/27/19 History Artificial Tears-Hypromellose 1 drops BOTH EYES TID PRN bottle 10/18/18 01/27/19 Rx [Artificial Tear Drops] Acetaminophen Tab [Tylenol Tab] 650 mg PEG/G-TUBE Q4H PRN 01/27/19 01/27/19 History Bisacodyl [Dulcolax] 10 mg RECTAL DAILY PRN 01/27/19 01/27/19 History Enoxaparin [Lovenox] 40 mg SQ DAILY@1700 01/27/19 01/27/19 History HYDROcodone/APAP 10-325MG [Farley 1 tab PEG/G-TUBE Q4H PRN 01/27/19 01/27/19 History 10-325] Magnesium Hydroxide [Milk of 7,200 mg PEG/G-TUBE DAILY PRN 01/27/19 01/27/19 History Magnesia Concentrate] Na Phos,M-B/Na Phos,Di-Ba [Fleet 133 ml RECTAL ONCE PRN 01/27/19 01/27/19 History Adult] Nystatin 100,000Unit/gm Cream 1 applic TOPICAL TID 01/27/19 01/27/19 History [Mycostatin Cream] Ondansetron [Zofran] 4 mg PEG/G-TUBE Q6H PRN 01/27/19 01/27/19 History Polyethylene Glycol 3350 [Miralax] 17 gm PEG/G-TUBE DAILY PRN 01/27/19 01/27/19 History Pregabalin [Lyrica] 25 mg PEG/G-TUBE BID@0800,2100 01/27/19 01/27/19 History Protonix 40mg Packet 40 mg PEG/G-TUBE DAILY@0600 01/27/19 01/27/19 History QUEtiapine [SEROquel] 50 mg PEG/G-TUBE BID@0800,2100 01/27/19 01/27/19 History Saliva Stimulant Agents Comb.3 2 spray MUCOUS MEM 01/27/19 01/27/19 History [Biotene Moisturizing Mouth] TID@0800,1200,1700 Zolpidem [Ambien] 5 mg PEG/G-TUBE HS PRN 01/27/19 01/27/19 History Allergies Allergy/AdvReac Type Severity Reaction Status Date / Time No Known Allergies Allergy Verified 01/27/19 23:06 Physical Exam Vitals: Vital Signs Temp Pulse Pulse Resp BP BP Pulse Ox 01/28/19 12:49 105 H 104/55 01/28/19 12:00 109 H 01/28/19 11:59 100.4 F H 109 H 32 H 96/52 98 01/28/19 11:50 100.4 F H 109 H 32 H 96/52 99 01/28/19 10:49 98.3 F 107 H 20 108/64 99 01/28/19 09:00 98.2 F 101 H 20 116/65 99 01/28/19 07:55 99.1 F 104 H 26 H 108/66 99 01/28/19 06:40 105 H 32 H 112/71 99 01/28/19 05:40 99.0 F 101 H 24 95/55 90 L 01/28/19 04:40 101 H 26 H 106/61 92 L 01/28/19 03:44 108 H 28 H 105/58 96 01/28/19 03:00 112 H 01/28/19 02:54 99.8 F H 112 H 26 H 111/62 97 01/28/19 02:17 121 H 20 107/61 96 01/28/19 00:42 120 H 32 H 105/65 01/28/19 00:05 99.1 F 116 H 32 H 126/67 96 01/27/19 22:40 97.8 F 113 H 22 116/68 95 Intake and Output 01/27/19 01/28/19 01/28/19 22:59 06:59 14:59 Output Total 350 Balance -350 Output: Urine 350 Other: Voiding Method Indwelling Catheter Indwelling Catheter Weight 99.79 kg Results CBC & Chem 7: 01/27/19 22:28 01/27/19 22:28 Labs: Abnormal Lab Results - Last 24 Hours (Table) 01/27/19 01/27/19 01/27/19 Range/Units 22:28 22:28 22:28 RBC 3.56 L (4.30-5.90) m/uL Hgb 10.0 L (13.0-17.5) gm/dL Hct 33.9 L (39.0-53.0) % MCHC 29.6 L (31.0-37.0) g/dL RDW 18.8 H (11.5-15.5) % Plt Count 520 H (150-450) k/uL Lymphocytes # 0.5 L (1.0-4.8) k/uL Eosinophils # 1.0 H (0-0.7) k/uL Glucose 129 H (74-99) mg/dL Plasma Lactic Acid Alexey 2.5 H* (0.7-2.0) mmol/L Alkaline Phosphatase 186 H (38-126) U/L Creatine Kinase 21 L (55-170) U/L Albumin 2.8 L (3.5-5.0) g/dL Urine Protein (Negative) Urine Blood (Negative) Ur Leukocyte Esterase (Negative) Urine RBC (0-5) /hpf Urine WBC (0-5) /hpf Urine WBC Clumps (None) /hpf Urine Bacteria (None) /hpf Urine Mucus (None) /hpf 01/28/19 01/28/19 Range/Units 00:17 03:24 RBC (4.30-5.90) m/uL Hgb (13.0-17.5) gm/dL Hct (39.0-53.0) % MCHC (31.0-37.0) g/dL RDW (11.5-15.5) % Plt Count (150-450) k/uL Lymphocytes # (1.0-4.8) k/uL Eosinophils # (0-0.7) k/uL Glucose (74-99) mg/dL Plasma Lactic Acid Alexey 2.8 H* (0.7-2.0) mmol/L Alkaline Phosphatase (38-126) U/L Creatine Kinase (55-170) U/L Albumin (3.5-5.0) g/dL Urine Protein 1+ H (Negative) Urine Blood Moderate H (Negative) Ur Leukocyte Esterase Trace H (Negative) Urine RBC >182 H (0-5) /hpf Urine WBC 7 H (0-5) /hpf Urine WBC Clumps Rare H (None) /hpf Urine Bacteria Rare H (None) /hpf Urine Mucus Rare H (None) /hpf Microbiology - Last 24 Hours (Table) 01/27/19 22:28 Wound Culture - Preliminary Abdomen 01/28/19 00:17 Urine Culture - Preliminary Urine,Catheterized Thrombosis Risk Factor Assmnt - Choose All That Apply Any of the Below Risk Factors Present?: Yes Each Factor Represents 1 point: Obesity (BMI >25), Serious lung disease incl. pneumonia (< 1month), Swollen legs (current) Other Risk Factors: Yes Each Risk Factor Represents 2 Points: Patient confined to bed Each Risk Factor Represents 3 Points: Age 75 years or older Thrombosis Risk Factor Assessment Total Risk Factor Score: 8 Thrombosis Risk Factor Assessment Level: High Risk
[2019-01-29] MEDS: PIPERACILLIN-TAZOBACTAM 3.375 GM in SODIUM CHLORIDE 0.9% 100 ML IVPB SCH ×3 (00:14→17:25)
[2019-01-29] MEDS: SODIUM CHLORIDE 0.9% 1,000 ML IV SCH ×3 (00:16→20:20)
[2019-01-29] MEDS: VANCOMYCIN 1,500 MG in SODIUM CHLORIDE 0.9% 250 ML IVPB SCH ×2 (03:24→15:59)
[2019-01-29 04:41] LABS: Anisocytosis Slight; Basophils # (A) 0.1 k/uL (0-0.2); Basophils % (A) 1 %; Eosinophils % (A) 13 %; HCT 30.8 % (39.0-53.0); Hypochromasia Marked; Lymphocytes # (A) 0.6 k/uL (1.0-4.8); Lymphocytes % (A) 8 %; MCH 28.7 pg (25.0-35.0); MCHC 29.4 g/dL (31.0-37.0); MCV 97.7 fL (80.0-100.0); Macrocytosis Slight; Mean Platelet Volume 5.7; Monocytes # (A) 0.6 k/uL (0-1.0); Monocytes % (A) 8 %; Neutrophils # (A) 5.1 k/uL (1.3-7.7); Neutrophils % (A) 67 %; Platelet Count 504 k/uL (150-450); RBC 3.16 m/uL (4.30-5.90); RDW 17.7 % (11.5-15.5); WBC 7.5 k/uL (3.8-10.6)
[2019-01-29 04:57] LABS: ALT 24 U/L (21-72); AST 36 U/L (17-59); African American GFR (CKD) >90 (>60 ml/min/1.73 sqM); Albumin 2.4 g/dL (3.5-5.0); Alkaline Phosphatase 165 U/L (38-126); Anion Gap 6 mmol/L; Blood Urea Nitrogen 14 mg/dL (9-20); Calcium 8.7 mg/dL (8.4-10.2); Carbon Dioxide 25 mmol/L (22-30); Chloride 107 mmol/L (98-107); Glucose 87 mg/dL (74-99); Potassium 4.3 mmol/L (3.5-5.1); Sodium 138 mmol/L (137-145); Total Bilirubin 0.4 mg/dL (0.2-1.3); Total Protein 6.2 g/dL (6.3-8.2)
[2019-01-29] MEDS: LEVOTHYROXINE 75 MCG TAB PEG/G-TUBE SCH (06:25)
[2019-01-29] MEDS: DRY MOUTH SPRAY 44.3 SPRAY/44.3 ML SPRAY MUCOUS MEM SCH ×3 (08:38→20:23)
[2019-01-29] MEDS: NYSTATIN 100,000UNIT/GM CREAM 30 GM TUBE TOPICAL SCH ×3 (08:39→21:14)
[2019-01-29] MEDS: QUEtiapine 50 MG TAB PEG/G-TUBE SCH ×2 (08:42→20:25)
[2019-01-29] MEDS: ENOXAPARIN 40 MG/0.4 ML SYRINGE SQ SCH (08:42)
[2019-01-29] MEDS: PANTOPRAZOLE 40 MG/10 ML VIAL IV SCH (08:43)
[2019-01-29 10:57] VITALS: BMI 32.0
[2019-01-29] MEDS: HYDROmorphone 0.5 MG/0.5 ML SYRINGE IVP PRN ×2 (12:09→17:26)
[2019-01-29] MEDS: PREGABALIN 25 MG CAP PEG/G-TUBE SCH ×2 (12:09→20:25)
--- NOTE | 2019-01-29 12:55 | P.PN ---
Subjective Progress Note Date: 01/29/19 Principal diagnosis: Acute sepsis, primary source is sacral decubitus ulcer and possibly abdominal sepsis. 83-year-old male patient who got transferred to the ED from the half-way facility because of increased heart rate, labored breathing and some drainage from the previous described colostomy sites. The patient is extremely debilitated. He had a complicated course in hospital 3 months ago. Since then he never made it home. He is still nonambulatory. He is nothing by mouth. He has a PEG tube in place and is receiving enteral feeding for nutritional support. He has a colostomy. He has a stage IV sacral decub ulcer and he has a wound VAC in place. The ulcer is quite extensive measuring at least 15 x 10 cm in size with some purulent drainage and foul smelling material covering the wound base. This has been the breathing on multiple occasions. The patient is known to me. I have taken care of him on previous ICU stays. He was febrile time of admission. His heart rate is still elevated at 109. His temperature was 100.4 axillary. The patient was started on IV fluids. He was sort also on IV antibiotics given a combination of Zosyn and vancomycin. Chest x-ray shows no acute abnormalities. There is no evidence of any pneumonia or consolidation. UA is also negative for any infection. He is awake. He has a congested cough. Unable to bring up sputum point in time. The patient has also several superficial wounds over the anterior abdominal wall. There is another one on the right lateral thigh area. A poor historian. Unable to give history.The patient was in the hospital back in October 2018. At that time he had a sigmoid colectomy and diverting colostomy for the privilege sedated diverticular abscess formation. The patient was a difficult to wean. His course was complicated by abdominal sepsis secondary to E. coli and pseudomonas aeruginosa. He was treated with broad-spectrum antibiotics. During the course of the treatment he had episodes of atrial fibrillation. He Was taken to [facility] specialty for further care and weaning. During the course of his treatment [facility], he became septic again had to be taken to [facility] where he underwent 3 additional surgeries and the colostomy site was reconstructed unchanged. For now the patient is a colostomy on the right. He does have a healing colostomy site on the left which is on off leaking some gastric material. Nevertheless, the anterior abdominal wound seems to be healing nicely at this point in time. The patient during the process was taken off the mechanical ventilator and he was decannulated probably around December 2018. He had a very complicated course at [place]. Ultimately was transferred back to [facility] and later on to with [facility] for further care. He has hypertension, hyperlipidemia, hypothyroidism him a coronary artery disease, diabetes mellitus, previous [place], BPH, and osteoarthritis as comorbid conditions. He has had previous cardiac catheterization and stenting. He is post bypass surgery. He was not receiving any antibiotics on outpatient basis. Patient was reevaluated today on 01/29/2019, patient remains in the ICU, he is hemodynamically stable. Patient is on antibiotics for his presumptive sepsis, presently on Zosyn and vancomycin. He is yet to be seen by surgery on consultation for his abdominal wall losing with purulent material, and for his sacral decub infection. His CODE STATUS has been changed to DO NOT RESUSCITATE, patient denies any specific complaints, he is not a good historian, CBC showed WBC count of 7.5 hemoglobin of 9 electrolytes are normal renal profile is normal. Lactic acid was 2.8 on admission and is 1.9 this morning. All cultures including wound cultures urine cultures and blood cultures are pending patient is on room air, and he is not in any distress. Objective - Vital Signs Vital signs: Vital Signs Temp 98.2 F 01/29/19 12:00 Pulse 112 H 01/29/19 12:00 Resp 21 01/29/19 12:00 BP 96/61 01/29/19 12:00 Pulse Ox 96 01/29/19 12:00 Intake & Output 01/28/19 01/29/19 01/29/19 18:59 06:59 18:59 Intake Total 600 1850 725 Output Total 370 830 250 Balance 230 1020 475 Weight 107.1 kg 107.1 kg Intake: IV 1725 725 Piperacillin-Tazobactam 3 100 100 .375 gm In Sodium Chloride 0.9% 100 ml @ 25 mls/hr IVPB Q8HR [facility] Rx# :[id number] Sodium Chloride 0.9% 1, 1375 625 000 ml @ 125 mls/hr IV . Q8H [facility] Rx#:[id number] Vancomycin 1,500 mg In 250 Sodium Chloride 0.9% 250 ml @ 125 mls/hr IVPB Q12H [facility] Rx#:[id number] Intake, IV Titration 600 125 Amount Piperacillin-Tazobactam 3 100 .375 gm In Sodium Chloride 0.9% 100 ml @ 200 mls/hr IVPB ONCE STA Rx#:[id number] Sodium Chloride 0.9% 1, 250 125 000 ml @ 125 mls/hr IV . Q8H [facility] Rx#:[id number] Vancomycin 1,500 mg In 250 Sodium Chloride 0.9% 250 ml @ 125 mls/hr IVPB Q12H [facility] Rx#:[id number] Output: Urine 370 830 250 Other: Voiding Method Indwelling Catheter Indwelling Catheter Indwelling Catheter - Exam GENERAL: Revealed 83-year-old white male in no distress, on room air. EYES: PERRLA, EOMI, pale conjunctivae, no icterus. HEENT: Moist mucous membranes, no neck masses, no JVD, no stridor. Throat is clear. NECK: No neck masses, no JVD.. HEART: Irregular irregular rhythm, no S3 gallop. No murmur.. LUNGS: Diminished breath sounds at the bases no crackles or rhonchi or wheezes. ABDOMEN: Soft, abdominal tenderness, no guarding no rigidity, liver spleen not palpable, no masses palpable, colostomy is noted, multiple draining sites in the abdominal wall noted with perilymphatic material noted. Even old surgical scar is losing purulent material. LYMPHATICS: No lymph nodes palpable in the axilla and neck. PSYCH: Lethargic and unable to assessl. NEUROLOGICAL: Lethargic, poor historian. Follow simple instructions. DERMATOLOGICAL:: Patient has a large decubitus ulcer, stage IV, not evaluated by me today but being followed by infectious disease and surgery on the case. - Labs CBC & Chem 7: 01/29/19 04:08 01/29/19 04:12 Labs: Abnormal Lab Results - Last 24 Hours (Table) 01/28/19 01/29/19 01/29/19 Range/Units 14:17 04:08 04:12 RBC 3.16 L (4.30-5.90) m/uL Hgb 9.0 L (13.0-17.5) gm/dL Hct 30.8 L (39.0-53.0) % MCHC 29.4 L (31.0-37.0) g/dL RDW 17.7 H (11.5-15.5) % Plt Count 504 H (150-450) k/uL Lymphocytes # 0.6 L (1.0-4.8) k/uL Eosinophils # 1.0 H (0-0.7) k/uL POC Glucose (mg/dL) 102 H (75-99) mg/dL Alkaline Phosphatase 165 H (38-126) U/L Total Protein 6.2 L (6.3-8.2) g/dL Albumin 2.4 L (3.5-5.0) g/dL Microbiology - Last 24 Hours (Table) 01/28/19 00:17 Urine Culture - Final Urine,Catheterized 01/27/19 22:28 Blood Culture - Preliminary Blood No Growth after 24 hours 01/27/19 22:28 Gram Stain - Preliminary Abdomen Wound Culture - Preliminary Assessment and Plan Assessment: Impression: Acute sepsis, likely sources are abdominal wall with significant purulent drainage noted, and decubitus ulcer, both are to be addressed by infectious disease and surgery on the case. Chronic atrial fibrillation Coronary artery disease and previous CABG and stent placement History of sigmoid colectomy and colostomy Benign essential hypertension Hyperlipidemia Degenerative joint disease Hypothyroidism Large stage IV sacral decubitus ulcer/infected Chronic anemia of chronic disease History of abdominal sepsis secondary to Pseudomonas and E. coli History of prolonged his hospitalization requiring intubation and mechanical ventilation with subsequent decannulation and previous PEG tube placement Recommendation: Continue antibiotics, presently on Zosyn and vancomycin. Infectious disease consultation is pending. Consider surgical debridement, and surgery was consulted to evaluate abdominal wall and sacral decub ulcer. Hold the tube feeds for now. Continue GI and DVT prophylaxis Continue updrafts. Discussed with family CODE STATUS and possibly consider comfort care measures. Prognosis is extremely poor and guarded. We will continue to follow. Time with Patient: Less than 30
[2019-01-29] MEDS ORDERED: IOPAMIDOL CONTRAST (ORAL USE) VIAL PO PRN (15:42)
[2019-01-29] MEDS: HYDROcodone/APAP 10-325MG 1 EACH TAB PEG/G-TUBE PRN ×2 (17:25→21:36)
[2019-01-29] MEDS: ASPIRIN 81 MG PEG/G-TUBE SCH (17:25)
--- NOTE | 2019-01-29 17:35 | CT ---
EXAMINATION TYPE: CT abdomen wo con DATE OF EXAM: 01/29/2019 COMPARISON: 10/11/2018 INDICATION: Rule out abscess DLP: 1327 mGycm, Automated exposure control for dose reduction was used. CONTRAST: 0 mL of Isovue 300. Study performed without Oral Contrast TECHNIQUE: Axial images were obtained from above the diaphragm to the pubic rami in the axial plane a t 5 mm thick sections. Reconstructed images are reviewed on the computer in the coronal plane. FINDINGS: Limited CT sections are obtained the lung bases. Small bilateral pleural effusions are present. Some compressive atelectasis is adjacent. Coronary artery calcification is present.. CT ABDOMEN: Liver: Normal Spleen: Normal Pancreas: Normal Adrenal glands: The adrenal glands are normal. Gallbladder: Normal Kidneys: No masses are evident. No hydronephrosis is present. No cysts are present. No renal stone s are evident. Aorta: Vascular calcification is within the aorta. Inferior vena cava: Normal. CT PELVIS: Loops of bowel within the abdomen and pelvis are normal. There are some loops of bowel lacking or al contrast are incompletely distended limiting their evaluation. Ostomy is in the left lower quadran t. IMPRESSIONS: 1. Ostomy left lower quadrant. 2. Small bilateral pleural effusions with adjacent compressive atelectasis.
[2019-01-29] MEDS: EZETIMIBE 10 MG TAB PEG/G-TUBE SCH (20:25)
--- NOTE | 2019-01-30 00:05 | P.PN ---
Progress Note - Text Progress Note Date: 01/29/19 Chief Complaint: Draining abdominal wound Interval history: This is a 82-year-old patient of Dr. Lopez. Patient was in the hospital from September 30 through October 182018. Patient then had presented with acute perforated diverticulitis. Had a sigmoid colectomy, had a drain in place with partial closure of the incision. Patient and also the wound VAC on the lower half of the abdominal wall. Patient being followed by Dr. Woodward from general surgery and Dr. Park from infectious disease. [facility] was [facility]. Patient has been couple of times back and forth [facility] to [facility]. And was transferred to [facility]. Patient was transferred from the [facility] here because of draining abdominal wound. Patient did have a colostomy in the past and had revision that was done at [facility]. Patient currently is a PEG tube for feeding. Patient's chronic stable medical conditions include gout, BPH, chronic low back pain, large sacral decubitus wound which patient had a wound VAC in place. Patient also is a large anterior abdominal wound which she's been healing with secondary intention. Patient is still remaining nothing by mouth. Other chronic stable medical conditions include coronary artery disease with bypass in 2016 colostomy since September 2018. Patient does communicate rather briefly. Patient oriented he was started on IV Zosyn and vancomycin. Blood pressures running a bit low. Patient with a tachycardic. Patient seen by Dr. Escalante from critical care and consultation also being to infectious disease doctor Xavier. Patient admitted to the ICU. Also tachycardic with fever. Today-in the ICU. Getting antibiotics. Significant drainage from the old colostomy site. Patient's son requested a change of surgeon. He requested Dr. Torrez. Several surgeons were approached and none were willing to take the case, because of his complexity. I did speak to Dr Dawood Marshall medical surgical tech. Was advised to transfer the patient to [facility]. Patient was taking care of Dr. bennett. Review of systems: Unable to obtain except for that as above as patient lethargic. Active Medications Hydrocodone Bitart/Acetaminophen ([place] 10) 1 each PEG/G-TUBE Q4H PRN PRN Reason: Pain Last Admin: 01/29/19 21:36 Dose: 1 each Documented by: Albuterol/Ipratropium (Duoneb 0.5 Mg-3 Mg/3 Ml Soln) 3 ml INHALATION RT-Q4H PRN PRN Reason: Shortness Of Breath Or Wheezing Alprazolam (Xanax) 0.5 mg PEG/G-TUBE Q8H PRN PRN Reason: Anxiety Last Admin: 01/28/19 10:31 Dose: 0.5 mg Documented by: Artificial Tears (Artificial Tear Drops) 1 drops BOTH EYES TID PRN PRN Reason: Dry Eye(s) Aspirin (Aspirin) 81 mg PEG/G-TUBE DAILY@1700 [facility] Last Admin: 01/29/19 17:25 Dose: 81 mg Documented by: Ezetimibe (Zetia) 10 mg PEG/G-TUBE HS@2100 [facility] Last Admin: 01/29/19 20:25 Dose: 10 mg Documented by: Enoxaparin Sodium (Lovenox) 40 mg SQ DAILY [facility] Last Admin: 01/29/19 08:42 Dose: 40 mg Documented by: Hydromorphone HCl (Dilaudid) 0.5 mg IVP Q6HR PRN PRN Reason: Pain Last Admin: 01/29/19 17:26 Dose: 0.5 mg Documented by: Sodium Chloride (Saline 0.9%) 1,000 mls @ 125 mls/hr IV .Q8H [facility] Last Admin: 01/29/19 20:20 Dose: 125 mls/hr Documented by: Piperacillin Sod/Tazobactam (Sod 3.375 gm/ Sodium Chloride) 100 mls @ 25 mls/hr IVPB Q8HR [facility] Last Admin: 01/29/19 17:25 Dose: 25 mls/hr Documented by: Vancomycin HCl 1,500 mg/ (Sodium Chloride) 250 mls @ 125 mls/hr IVPB Q12H [facility] Last Admin: 01/29/19 15:59 Dose: 125 mls/hr Documented by: Levothyroxine Sodium (Synthroid) 75 mcg PEG/G-TUBE DAILY@0630 [facility] Last Admin: 01/29/19 06:25 Dose: 75 mcg Documented by: Magnesium Hydroxide (Milk Of Magnesia) 7,200 mg PEG/G-TUBE DAILY PRN PRN Reason: Constipation Miscellaneous Information (Vancomycin Trough Due) 0 each MISCELLANE DIRECTED ONE Stop: 01/30/19 02:01 Naloxone HCl (Narcan) 0.2 mg IV Q2M PRN PRN Reason: Opioid Reversal Nystatin (Mycostatin Cream) 1 applic TOPICAL TID [facility] Last Admin: 01/29/19 21:14 Dose: 1 applic Documented by: Ondansetron HCl (Zofran) 4 mg PEG/G-TUBE Q6H PRN PRN Reason: Nausea Pantoprazole Sodium (Protonix) 40 mg IV DAILY [facility] Last Admin: 01/29/19 08:43 Dose: 40 mg Documented by: Polyethylene Glycol (Miralax) 17 gm PEG/G-TUBE DAILY PRN PRN Reason: Constipation Pregabalin (Lyrica) 25 mg PEG/G-TUBE BID@0800,2100 [facility] Last Admin: 01/29/19 20:25 Dose: 25 mg Documented by: Quetiapine Fumarate (Seroquel) 50 mg PEG/G-TUBE BID@0800,2100 [facility] Last Admin: 01/29/19 20:25 Dose: 50 mg Documented by: Saliva Substitute (Mouthkote Solution) 2 spray MUCOUS MEM TID@0800,1200,1700 [facility] Last Admin: 01/29/19 20:23 Dose: Not Given Documented by: Physical examination: VITAL SIGNS: 99.1, 109, 26, 126/70, 96% on 2 L GENERAL: Laying in bed, tired able to answer simple questions EYES: Pupils equal. Conjunctiva pale HEENT: External appearance of nose and ears normal, oral cavity dry. NECK: JVD unable to assess; masses not palpable. HEART: Heart sounds irregular , no edema. LUNGS: Respiratory rate increased; decreased breath sounds. ABDOMEN: Soft, abdominal tenderness, no guarding no rigidity, liver spleen not palpable, no masses palpable, bowel sounds present. Colostomy bag. Feeding tube ; old colostomy wound of the left side drainage LYMPHATICS: No lymph nodes palpable in the axilla and neck. PSYCH: Lethargic and unable to assessl. NEUROLOGICAL: Cranial nerves grossly intact; no facial asymmetry, power and sensation grossly intact DERMATOLOGICAL:: Large sacral wound stage IV Investigations reviewed in the clinical context White count 7.5 hemoglobin 9 platelets 504 creatinine 0.67 Previous testing White count 8 hemoglobin 10 platelets 520 potassium 4.7 creatinine 0.69. Lactic acid 2.5 albumin 2.8 EKG tracing personally reviewed by me-sinus tachycardia with right bundle branch block. 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 Modi grain oilseed or pasture farm manager. Suggestion to transfer the patient out. Since no other surgeon surgeon was going to take this complicated case case I did speak to Dr. Dawood Marshall, or medical surgical tech. Given that the patient had previous care done at [facility] where Dr. Holder and Dr. Smyth had taking care of the patient't had a surgical intervention. I spoke to Dr. Smyth who kindly accepted the patient. I did speak to the son late in the day. He awaiting for a bed. In the meantime patient has been downgraded to the medical floor with telemetry. Total time spent today was over 1 hour with over 40 minutes of discussion . computed tomography scan of the abdomen was also ordered.
--- NOTE | 2019-01-30 00:06 | P.CONS ---
History of Present Illness - Reason for Consult Consult date: 01/29/19 Wounds and sepsis Requesting physician: Cosme Colon - Chief Complaint Increased heart rate and difficulty breathing x one day - History of Present Illness Patient is 83 year male with a past medical history significant for ruptured diverticulitis with abdominal abscess requiring laparotomy and diverting colostomy back in October 2018 patient did have prolonged hospital stay followed by subacute rehabilitation and currently a care home resident patient has been sent to the ER at [facility] of the patient noticed to have tachycardia and difficulty with breathing and a low-grade fever, the patient had did have been going on for a day or 2 before presenting to the hospital patient on arrival to the had did have a difficult 100.4 to 100.6 he was tachycardic, and did have elevated lactic acid his white count was normal urine did show some hematuria which is a chronic indwelling Bishop catheter not clear when was a change from last the patient chest x-ray negative for any pneumonia patient did have a stage IV sacral pressure ulcer with a wound VAC that was discontinued on admission the patient has been treated aggressively with concern for sepsis and has been treated broadly with IV vancomycin and Zosyn and infectious disease was consulted for further recommendation regarding local wound care as well as antibiotic therapy, patient also noticed to have some purulent drainage from his left lower abdominal wound, which is site of his previous colostomy and according to the son purulent drainage has been there for the last few days patient be complaining of pain mostly his sacral wound area which has been mostly dull aching to sharp and worse with movement and the patient getting turnaround intensity can be as high as 10 out of 10 and no radiation Review of Systems Positive point has been mentioned in the HPI rest of the systems are negative Past Medical History Past Medical History: Atrial Fibrillation, Atrial Flutter, Coronary Artery Disease (CAD), Chest Pain / Angina, Hyperlipidemia, Hypertension, Myocardial Infarction (PR), Osteoarthritis (OA), Prostate Disorder, Skin Disorder, Thyroid Disorder Additional Past Medical History / Comment(s): Diverticulitis, HX PERFORATION. Gout. Eczema. BPH. Chronic Back Pain D/T PINCHED NERVE, has been bedridden since September. HX VERTIGO. FOOD GETTING STUCK IN THROAT - REMOVAL X3. Last Myocardial Infarction Date:: 08/2015 History of Any Multi-Drug Resistant Organisms: Other MDRO Past Surgical History: Bowel Resection, Cardiac Ablation, Coronary Bypass/CABG, Heart Catheterization With Stent, Tonsillectomy Additional Past Surgical History / Comment(s): 02/11/16 Cardiac stent to SVG to diagonal; TOTAL 3 NOW. CABG X3 0n 07/11/15. CYST REMOVED FROM HEART 1958; LEFT TESTICLE REMOVED; МАРИНА CATARACTS. EGD W/ REMOVAL FB X3. Ostomy which failed, and redone. Colostomy since September 2018. Issues with sepsis since. At [facility] family was told Rene had a VAP which was drug resistant, unsure of type, November 2018. Past Anesthesia/Blood Transfusion Reactions: No Reported Reaction Additional Past Anesthesia/Blood Transfusion Reaction / Comm: no family hx Date of Last Stent Placement:: 02/11/16 Past Psychological History: PTSD Additional Psychological History / Comment(s): Pt is a [place] . 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 Smoking Status: Never smoker Past Alcohol Use History: None Reported Additional Past Alcohol Use History / Comment(s): Hx cigar/pipe smoker from teen. quit smoking 1972 Past Drug Use History: None Reported - Past Family History Mother Family Medical History: Unable to Obtain Additional Family Medical History / Comment(s): Mother had a pacemaker. Father History Unknown: Yes Family Medical History: Myocardial Infarction (PR) Medications and Allergies Home Medications Medication Instructions Recorded Confirmed Type Ezetimibe [Zetia] 10 mg PEG/G-TUBE HS@2100 08/14/13 01/27/19 History ALPRAZolam [Xanax] 0.5 mg PEG/G-TUBE Q8H PRN 08/11/15 01/27/19 History Metoprolol Tartrate [Lopressor] 25 mg PEG/G-TUBE TID@0600,1400,2100 02/10/16 01/27/19 History Nitroglycerin Sl Tabs [Nitrostat] 0.4 mg SUBLINGUAL Q5M PRN 02/10/16 01/27/19 History Aspirin 81 mg PEG/G-TUBE DAILY@1700 04/09/16 01/27/19 History Multivit-Min/FA/Lycopen/Lutein 1 tab PEG/G-TUBE DAILY@1700 07/08/16 01/27/19 History [Centrum Silver Tablet] Levothyroxine Sodium [Levoxyl] 75 mcg PEG/G-TUBE DAILY@0600 06/18/19 10/19/19 History amLODIPine [Norvasc] 5 mg PEG/G-TUBE HS@2100 09/26/18 01/27/19 History Artificial Tears-Hypromellose 1 drops BOTH EYES TID PRN bottle 10/18/18 01/27/19 Rx [Artificial Tear Drops] Acetaminophen Tab [Tylenol Tab] 650 mg PEG/G-TUBE Q4H PRN 01/27/19 01/27/19 History Bisacodyl [Dulcolax] 10 mg RECTAL DAILY PRN 01/27/19 01/27/19 History Enoxaparin [Lovenox] 40 mg SQ DAILY@1700 01/27/19 01/27/19 History HYDROcodone/APAP 10-325MG [Lopeno 1 tab PEG/G-TUBE Q4H PRN 01/27/19 01/27/19 History 10-325] Magnesium Hydroxide [Milk of 7,200 mg PEG/G-TUBE DAILY PRN 01/27/19 01/27/19 History Magnesia Concentrate] Na Phos,M-B/Na Phos,Di-Ba [Fleet 133 ml RECTAL ONCE PRN 01/27/19 01/27/19 History Adult] Nystatin 100,000Unit/gm Cream 1 applic TOPICAL TID 01/27/19 01/27/19 History [Mycostatin Cream] Ondansetron [Zofran] 4 mg PEG/G-TUBE Q6H PRN 01/27/19 01/27/19 History Polyethylene Glycol 3350 [Miralax] 17 gm PEG/G-TUBE DAILY PRN 01/27/19 01/27/19 History Pregabalin [Lyrica] 25 mg PEG/G-TUBE BID@0800,2100 01/27/19 01/27/19 History Protonix 40mg Packet 40 mg PEG/G-TUBE DAILY@0600 01/27/19 01/27/19 History QUEtiapine [SEROquel] 50 mg PEG/G-TUBE BID@0800,2100 01/27/19 01/27/19 History Saliva Stimulant Agents Comb.3 2 spray MUCOUS MEM 01/27/19 01/27/19 History [Biotene Moisturizing Mouth] TID@0800,1200,1700 Zolpidem [Ambien] 5 mg PEG/G-TUBE HS PRN 01/27/19 01/27/19 History Allergies Allergy/AdvReac Type Severity Reaction Status Date / Time No Known Allergies Allergy Verified 01/27/19 23:06 Physical Exam Vitals: Vital Signs Temp Pulse Pulse Resp BP BP Pulse Ox 01/29/19 11:00 104 H 39 H 99/54 96 01/29/19 10:00 102 H 15 94/56 01/29/19 09:00 105 H 12 101/53 98 01/29/19 08:00 97.4 F L 106 H 18 109/65 99 01/29/19 07:22 99 01/29/19 07:00 112 H 30 H 96/58 99 01/29/19 06:00 110 H 30 H 103/51 99 01/29/19 05:00 111 H 30 H 100/50 100 01/29/19 04:00 99.3 F 110 H 25 H 101/53 98 01/29/19 03:00 105 H 27 H 103/50 99 01/29/19 02:00 108 H 11 L 90/51 99 01/29/19 01:00 111 H 17 89/55 98 01/29/19 00:00 99.7 F H 112 H 30 H 105/54 91 L 01/28/19 23:00 108 H 20 92/47 95 01/28/19 22:00 98.4 F 114 H 24 96/35 95 01/28/19 21:00 109 H 24 88/48 98 01/28/19 20:00 100.6 F H 110 H 26 H 99/54 97 01/28/19 19:00 106 H 30 H 104/50 98 01/28/19 18:00 108 H 27 H 109/53 98 01/28/19 17:00 111 H 7 L 93/43 99 01/28/19 16:00 99.1 F 104 H 28 H 105/53 99 01/28/19 15:57 105 H 31 H 98 01/28/19 15:00 105 H 31 H 105/61 98 01/28/19 14:05 112 H 25 H 105/61 100 01/28/19 12:49 105 H 104/55 Intake and Output 01/28/19 01/29/19 01/29/19 22:59 06:59 14:59 Intake Total 1100 1350 725 Output Total 770 430 250 Balance 330 920 475 Intake: IV 375 1350 725 Piperacillin-Tazobactam 3 100 100 .375 gm In Sodium Chloride 0.9% 100 ml @ 25 mls/hr IVPB Q8HR [facility] Rx# :[id number] Sodium Chloride 0.9% 1, 375 1000 625 000 ml @ 125 mls/hr IV . Q8H [facility] Rx#:[id number] Vancomycin 1,500 mg In 250 Sodium Chloride 0.9% 250 ml @ 125 mls/hr IVPB Q12H [facility] Rx#:[id number] Intake, IV Titration 725 Amount Piperacillin-Tazobactam 3 100 .375 gm In Sodium Chloride 0.9% 100 ml @ 200 mls/hr IVPB ONCE [facility] Rx#:[id number] Sodium Chloride 0.9% 1, 375 000 ml @ 125 mls/hr IV . Q8H [facility] Rx#:[id number] Vancomycin 1,500 mg In 250 Sodium Chloride 0.9% 250 ml @ 125 mls/hr IVPB Q12H [facility] Rx#:[id number] Output: Urine 770 430 250 Other: Voiding Method Indwelling Catheter Indwelling Catheter Indwelling Catheter Weight 107.1 kg 107.1 kg GENERAL DESCRIPTION: Elderly male lying in bed, no distress. No tachypnea or accessory muscle of respiration use. HEENT: Shows Pallor , no scleral icterus. Oral mucous membrane is dry. No pharyngeal erythema or thrush NECK: Trachea central, no thyromegaly. LUNGS: Unlabored breathing. Clear to auscultation anteriorly. No wheeze or crackle. HEART: S1, S2, regular rate and rhythm. No loud murmur ABDOMEN: Soft, no tenderness , did have purulent drainage from the wound on the left lower abdominal area EXTREMITIES: No edema of feet. SKIN: Examination of the sacral area did have a stage IV pressure ulcer with some slough tissue and some necrotic area NEUROLOGICAL: The patient is awake, alert, oriented x3, mood and affect normal. Results CBC & Chem 7: 01/29/19 04:08 01/29/19 04:12 Labs: Abnormal Lab Results - Last 24 Hours (Table) 01/28/19 01/29/19 01/29/19 Range/Units 14:17 04:08 04:12 RBC 3.16 L (4.30-5.90) m/uL Hgb 9.0 L (13.0-17.5) gm/dL Hct 30.8 L (39.0-53.0) % MCHC 29.4 L (31.0-37.0) g/dL RDW 17.7 H (11.5-15.5) % Plt Count 504 H (150-450) k/uL Lymphocytes # 0.6 L (1.0-4.8) k/uL Eosinophils # 1.0 H (0-0.7) k/uL POC Glucose (mg/dL) 102 H (75-99) mg/dL Alkaline Phosphatase 165 H (38-126) U/L Total Protein 6.2 L (6.3-8.2) g/dL Albumin 2.4 L (3.5-5.0) g/dL Microbiology - Last 24 Hours (Table) 01/28/19 00:17 Urine Culture - Final Urine,Catheterized 01/27/19 22:28 Blood Culture - Preliminary Blood No Growth after 24 hours 01/27/19 22:28 Gram Stain - Preliminary Abdomen Wound Culture - Preliminary Assessment and Plan Assessment: 1-patient admitted hospital with sepsis in this patient did have a fever tachycardia and elevated lactic acid source is likely multifactorial in this patient did have infected stage IV sacral pressure ulcer in addition to possible abdominal source as he was noticed to have significant purulent drainage from his previous colostomy site and will need to cover for resistant gram-positive as well as gram-negative pathogen (1) Stage IV decubitus ulcer Current Visit: Yes Status: Acute Code(s): L89.94 - PRESSURE ULCER OF UNSPECIFIED SITE, STAGE 4 SNOMED Code(s): 448470016 (2) Sepsis Current Visit: No Status: Acute Code(s): A41.9 - SEPSIS, UNSPECIFIED ORGANISM SNOMED Code(s): 29033496 Plan: 1-CT of abdominal pelvis with oral contrast to make sure no evidence of any abdominal abscess that will need to be surgically drained 2-await surgical debridement of his sacral wound at which time deep culture should be obtained 3-Vancomycin pharmacy to dose target trough of 15 while watching his kidney function and Vanco trough closely 4-Zosyn will be discontinued to decrease risk of nephrotoxicity and cefepime plus Flagyl will be added 5-local wound care to the sacral wound with wet-to-dry dressing to the patient did have debridement of the wound and keep the area off the pressure 6-IV fluids We will follow on clinical condition and cultures to further adjust medication if needed Thank you for this consultation will follow this patient with you Time with Patient: Greater than 30
[2019-01-30] MEDS ORDERED: VANCOMYCIN TROUGH DUE 1 EACH MISC MISCELLANE ONE (02:00)
[2019-01-30] MEDS: VANCOMYCIN 1,500 MG in SODIUM CHLORIDE 0.9% 250 ML IVPB SCH (03:09)
[2019-01-30] MEDS: HYDROcodone/APAP 10-325MG 1 EACH TAB PEG/G-TUBE PRN (03:09)
[2019-01-30] MEDS: SODIUM CHLORIDE 0.9% 1,000 ML IV SCH (03:09)
[2019-01-30 04:19] VITALS: BP 100/44; PULSE 101; RESP 16; TEMP 97.3
[2019-01-30] MEDS ORDERED: CEFEPIME 2 GM in SODIUM CHLORIDE 0.9% 100 ML IVPB SCH (09:00)
[2019-01-30] MEDS ORDERED: metroNIDAZOLE 500 MG TAB PO SCH (09:00)
--- NOTE | 2019-02-04 01:45 | P.DS ---
Providers Date of admission: 01/28/19 01:25 Expected date of discharge: 01/30/19 Attending physician: Cosme Colon Consults: 01/28/19 01:25 Consult Physician Stat Consulting Provider: Yeison Escalante Consult Reason/Comments: See a management Do you want consulting provider notified?: Already Contacted 01/28/19 13:41 Consult Physician Stat Consulting Provider: Gerald Park Consult Reason/Comments: multiple wounds Do you want consulting provider notified?: Yes 01/29/19 13:57 Consult Physician Stat Consulting Provider: Rehan Dickens Consult Reason/Comments: surgical consult; r/o abscess Do you want consulting provider notified?: Yes Primary care physician: Dilshad Lopez [facility] Course: Chief Complaint: Draining abdominal wound Hospital course: This is a 82-year-old patient of Dr. Lopez. Patient was in the hospital from September 30 through October 182018. Patient then had presented with acute perforated diverticulitis. Had a sigmoid colectomy, had a drain in place with partial closure of the incision. Patient and also the wound VAC on the lower half of the abdominal wall. Patient being followed by Dr. Woodward from general surgery and Dr. Park from infectious disease. Patient was discharged to [facility]. Patient has been couple of times back and forth from [facility] to [facility]. And was transferred to [facility]. Patient was transferred from the [facility] here because of draining abdominal wound. Patient did have a colostomy in the past and had revision that was done at [facility]. Patient currently is a PEG tube for feeding. Patient's chronic stable medical conditions include gout, BPH, chronic low back pain, large sacral decubitus wound which patient had a wound VAC in place. Patient also is a large anterior abdominal wound which she's been healing with secondary intention. Patient is still remaining nothing by mouth. Other chronic stable medical conditions include coronary artery disease with bypass in 2016 colostomy since September 2018. Patient does communicate rather briefly. Patient oriented he was started on IV Zosyn and vancomycin. Blood pressures running a bit low. Patient with a tachycardic. Patient seen by Dr. Escalante from critical care and consultation also being to infectious disease doctor Xavier. Patient admitted to the ICU. Also tachycardic with fever. Patient's family wanted to select another surgeon. Several surgeons were called no one would accept the patient. I spoke to Dr. Dawood Clancy [facility]. He said patient to be transferred to [facility]. Patient's accepted by Dr. Smyth the vascular surgeon who had taken care of patient prior. Review of systems: Unable to obtain except for that as above as patient lethargic. Physical examination: From previous day VITAL SIGNS: 99.1, 109, 26, 126/70, 96% on 2 L GENERAL: Laying in bed, tired able to answer simple questions EYES: Pupils equal. Conjunctiva pale HEENT: External appearance of nose and ears normal, oral cavity dry. NECK: JVD unable to assess; masses not palpable. HEART: Heart sounds irregular , no edema. LUNGS: Respiratory rate increased; decreased breath sounds. ABDOMEN: Soft, abdominal tenderness, no guarding no rigidity, liver spleen not palpable, no masses palpable, bowel sounds present. Colostomy bag. Feeding tube ; old colostomy wound of the left side drainage LYMPHATICS: No lymph nodes palpable in the axilla and neck. PSYCH: Lethargic and unable to assessl. NEUROLOGICAL: Cranial nerves grossly intact; no facial asymmetry, power and sensation grossly intact DERMATOLOGICAL:: Large sacral wound stage IV Investigations White count 7.5 hemoglobin 9 platelets 504 creatinine 0.67 Previous testing White count 8 hemoglobin 10 platelets 520 potassium 4.7 creatinine 0.69. Lactic acid 2.5 albumin 2.8 EKG tracing personally reviewed by me-sinus tachycardia with right bundle branch block. Computed tomography scan-abdomen nonspecific Assessment: -Old colostomy site with drainage, consider this is communicating intra- abdominally -Sepsis with multiple source of infection including large decubitus sacral wound and abdominal wound that is draining -History of t atrial flutter, -Coronary artery disease with prior history of stent and bypass -Sigmoid colectomy with a resultant colostomy -Hyperlipidemia -Essential hypertension -Primary osteoarthritis -BPH -Hypothyroidism -Chronic gout -PTSD -PEG tube feeding -Large stage IV sacral decubitus ulcer infected -Normocytic anemia of chronic disease Disposition: Transferred to [facility] for higher level of care and surgeon service not available, here Patient Condition at Discharge: Undetermined Plan - Discharge Summary Discharge Rx Participant: No New Discharge Prescriptions: No Action Ezetimibe [Zetia] 10 mg PEG/G-TUBE HS@2100 ALPRAZolam [Xanax] 0.5 mg PEG/G-TUBE Q8H PRN PRN Reason: Anxiety Metoprolol Tartrate [Lopressor] 25 mg PEG/G-TUBE TID@0600,1400,2100 Nitroglycerin Sl Tabs [Nitrostat] 0.4 mg SUBLINGUAL Q5M PRN PRN Reason: Chest Pain Aspirin 81 mg PEG/G-TUBE DAILY@1700 Multivit-Min/FA/Lycopen/Lutein [Centrum Silver Tablet] 1 tab PEG/G-TUBE DAILY@1700 amLODIPine [Norvasc] 5 mg PEG/G-TUBE HS@2100 Levothyroxine Sodium [Levoxyl] 75 mcg PEG/G-TUBE DAILY@0600 Artificial Tears-Hypromellose [Artificial Tear Drops] 1 drops BOTH EYES TID PRN bottle PRN Reason: Dry Eye(S) Ondansetron [Zofran] 4 mg PEG/G-TUBE Q6H PRN PRN Reason: Nausea Magnesium Hydroxide [Milk of Magnesia Concentrate] 7,200 mg PEG/G-TUBE DAILY PRN PRN Reason: Constipation HYDROcodone/APAP 10-325MG [[place] 10-325] 1 tab PEG/G-TUBE Q4H PRN PRN Reason: Pain Polyethylene Glycol 3350 [Miralax] 17 gm PEG/G-TUBE DAILY PRN PRN Reason: Constipation Na Phos,M-B/Na Phos,Di-Ba [Fleet Adult] 133 ml RECTAL ONCE PRN PRN Reason: Constipation Zolpidem [Ambien] 5 mg PEG/G-TUBE HS PRN PRN Reason: Insomnia Bisacodyl [Dulcolax] 10 mg RECTAL DAILY PRN PRN Reason: Constipation Acetaminophen Tab [Tylenol Tab] 650 mg PEG/G-TUBE Q4H PRN PRN Reason: Pain Nystatin 100,000Unit/gm Cream [Mycostatin Cream] 1 applic TOPICAL TID Saliva Stimulant Agents Comb.3 [Biotene Moisturizing Mouth] 2 spray MUCOUS MEM TID@0800,1200,1700 QUEtiapine [SEROquel] 50 mg PEG/G-TUBE BID@0800,2100 Pregabalin [Lyrica] 25 mg PEG/G-TUBE BID@0800,2100 Protonix 40mg Packet 40 mg PEG/G-TUBE DAILY@0600 Enoxaparin [Lovenox] 40 mg SQ DAILY@1700 Discharge Medication List Ezetimibe [Zetia] 10 mg PEG/G-TUBE HS@209908/14/13 [History] ALPRAZolam [Xanax] 0.5 mg PEG/G-TUBE Q8H PRN 08/11/15 [History] Metoprolol Tartrate [Lopressor] 25 mg PEG/G-TUBE TID@0600,1400,209902/10/16 [History] Nitroglycerin Sl Tabs [Nitrostat] 0.4 mg SUBLINGUAL Q5M PRN 02/10/16 [History] Aspirin 81 mg PEG/G-TUBE DAILY@1700 04/09/16 [History] Multivit-Min/FA/Lycopen/Lutein [Centrum Silver Tablet] 1 tab PEG/G-TUBE DAILY@1700 07/08/16 [History] Levothyroxine Sodium [Levoxyl] 75 mcg PEG/G-TUBE DAILY@0600 09/26/18 [History] amLODIPine [Norvasc] 5 mg PEG/G-TUBE HS@209909/26/18 [History] Artificial Tears-Hypromellose [Artificial Tear Drops] 1 drops BOTH EYES TID PRN bottle 10/18/18 [Rx] Acetaminophen Tab [Tylenol Tab] 650 mg PEG/G-TUBE Q4H PRN 01/27/19 [History] Bisacodyl [Dulcolax] 10 mg RECTAL DAILY PRN 01/27/19 [History] Enoxaparin [Lovenox] 40 mg SQ DAILY@1700 01/27/19 [History] HYDROcodone/APAP 10-325MG [[place] 10-325] 1 tab PEG/G-TUBE Q4H PRN 01/27/19 [History] Magnesium Hydroxide [Milk of Magnesia Concentrate] 7,200 mg PEG/G-TUBE DAILY PRN 01/27/19 [History] Na Phos,M-B/Na Phos,Di-Ba [Fleet Adult] 133 ml RECTAL ONCE PRN 01/27/19 [History] Nystatin 100,000Unit/gm Cream [Mycostatin Cream] 1 applic TOPICAL TID 01/27/19 [History] Ondansetron [Zofran] 4 mg PEG/G-TUBE Q6H PRN 01/27/19 [History] Polyethylene Glycol 3350 [Miralax] 17 gm PEG/G-TUBE DAILY PRN 01/27/19 [History] Pregabalin [Lyrica] 25 mg PEG/G-TUBE BID@0800,2100 01/27/19 [History] Protonix 40mg Packet 40 mg PEG/G-TUBE DAILY@0600 01/27/19 [History] QUEtiapine [SEROquel] 50 mg PEG/G-TUBE BID@0800,2100 01/27/19 [History] Saliva Stimulant Agents Comb.3 [Biotene Moisturizing Mouth] 2 spray MUCOUS MEM TID@0800,1200,1700 01/27/19 [History] Zolpidem [Ambien] 5 mg PEG/G-TUBE HS PRN 01/27/19 [History] Follow up Appointment(s)/Referral(s): Dilshad Lopez DO [Primary Care Provider] - 1-2 days Discharge Disposition: DC/TRNS IP HOSP W/PLND IP READ
== END 2019-01-30 05:00 | disposition short-term general hospital (02) | DRG 871 ==
LOC: EC 22:06 → 2SICU 01-28 01:25 → 3SCARD 01-28 11:27 → 2SICU 01-28 13:17
PROVIDERS: ADMIT Hospitalist; ATTEND Hospitalist
DX: A41.51 Sepsis due to Escherichia coli [E. coli] (principal); L89.154 Pressure ulcer of sacral region, stage 4; I48.20 Chronic atrial fibrillation, unspecified; D63.8 Anemia in other chronic diseases classified elsewhere; E03.9 Hypothyroidism, unspecified; E11.41 Type 2 diabetes mellitus with diabetic mononeuropathy; E78.5 Hyperlipidemia, unspecified; F43.10 Post-traumatic stress disorder, unspecified; G89.29 Other chronic pain; I25.10 Atherosclerotic heart disease of native coronary artery without angina pectoris; I11.9 Hypertensive heart disease without heart failure; I25.2 Old myocardial infarction; J43.9 Emphysema, unspecified; M19.91 Primary osteoarthritis, unspecified site; M1A.9XX0 Chronic gout, unspecified, without tophus (tophi); M81.0 Age-related osteoporosis without current pathological fracture; N40.0 Benign prostatic hyperplasia without lower urinary tract symptoms; Z66 Do not resuscitate; Z74.01 Bed confinement status; Z79.82 Long term (current) use of aspirin; Z79.899 Other long term (current) drug therapy; Z82.49 Family history of ischemic heart disease and other diseases of the circulatory system; Z87.891 Personal history of nicotine dependence; Z90.49 Acquired absence of other specified parts of digestive tract; Z90.79 Acquired absence of other genital organ(s); Z93.1 Gastrostomy status; Z93.2 Ileostomy status; Z93.3 Colostomy status; Z95.1 Presence of aortocoronary bypass graft; Z95.5 Presence of coronary angioplasty implant and graft
CPT/HCPCS: 36415; 71045; 74150; 80053; 80202; 81001; 82550; 83605; 84484; 85025; 85610; 85730; 87040; 87070; 87086; 87205; 87502; 96361; 96365; 96366; 96367; 96372; 96375; 99285

== ENCOUNTER 2019-02-21 16:19 | Inpatient (IN) | payer MEDICARE, OTHER ==
[2019-02-21] MEDS ORDERED: ACETAMINOPHEN TAB 325 MG TAB PO STA (16:25)
--- NOTE | 2019-02-21 16:36 | ED ---
General Adult HPI - General Stated complaint: Sepsis Time Seen by Provider: 02/21/19 16:20 - History of Present Illness Initial comments: Dictation was produced using [employer] dictation software. please excuse any grammatical, word or spelling errors. Chief Complaint: 83-year-old male with past medical history of bowel resection, decubitus ulcer, vancomycin resistant enterococcus, multiple abdominal surgeries presents via EMS for concerns of sepsis. History of Present Illness: 83-year-old male brought in via EMS from the group home for concerns of sepsis. Patient has been having worsening wounds to his abdomen and coccyx. Patient states he feels fine. According to EMS patient was evaluated by Dr. Mixon and was instructed to have patient sent to the emergency department concerns of sepsis. Patient has had multiple abdominal surgeries with relocation of ostomies. There is concern that his surgical sites are infected. he is chronically debilitated. The ROS documented in this emergency department record has been reviewed and confirmed by me. Those systems with pertinent positive or negative responses have been documented in the HPI. All other systems are other negative and/or noncontributory. PHYSICAL EXAM: General Impression: Alert and oriented x3, not in acute distress HEENT: Normocephalic atraumatic, extra-ocular movements intact, pupils equal and reactive to light bilaterally, dry mucous membranes Cardiovascular: Heart regular rate and rhythm, S1&S2 audible, no murmurs, rubs or gallops Chest: Lungs clear to auscultation bilaterally, no rhonchi, no wheeze, no rales Abdomen: Bowel sounds present, right abdominal ostomy site pink and well- perfused. There is 2 anterior abdominal wounds. More left lateral wound has a 2 x 2 centimeter defect with cavitation, no significant cellulitic changes around the wound sites Musculoskeletal: Pulses present and equal in all extremities, no peripheral edema Motor: no focal deficits noted Neurological: CN II-XII grossly intact, no focal motor or sensory deficits noted Skin: Stage IV decubitus ulcer, no significant surrounding cellulitis Psych: Normal affect and mood ED course:83 yo Male presents with concerns of sepsis. Transferred from [facility] after being evaluated by group home physician. Vital signs upon arrival shows heart rate of 115, blood pressure 99/47, rest of vital signs within acceptable limits. Laboratory evaluation obtained. Patient has mild leukocytosis of 12.1. Slightly elevated than patient's baseline. Coag panel is unremarkable. Metabolic panel shows like acidosis 2.2 with elevated BUN to creatinine ratio concerning for mild dehydration. Patient urinalysis negative. Influenza is negative. Chest x-ray shows cardiac megaly however no significant changes from patient's baseline. CT abdomen chest and pelvis with contrast showing posterior pulmonary infiltrates. There is dehiscence that appears new compared to old exam. Discussed patient case with Dr. Colon. Dr. Colon is well familiar with this patient. There is been concerned about family and general surgeon. Dr. Colon request that patient can only be kept here if there is appropriate surgeon who is willing to see patient. Discussed patient case with Dr. Burnett who is fully with patient from [facility] as he did a debridement outpatient past. Dr. 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 He did not have any recommendations on patient's decubitus ulcer. Discussed patient case with family and that there is difficulties with surgeon be able to perform the remainder hospital. Family at bedside bleeds that we keep patient in this hospital because he does not want patient transferred constantly between [facility] ies. They're open to Dr. Woodward patient. His case with Dr. Woodward who is agreeable with same patient. Dr. Colon is willing to accept patients care. Patient be admitted. He is given Levaquin based on my chronology cultures from the past. EKG interpretation: Ventricular rate 117, sinus tachycardia, AZ interval 174, care is 134, QTC 454. No AZ prolongation, no QTC prolongation, no ST or T-wave changes noted. EKG compared to 01/28/2019 showing no changes. Overall, this EKG is unremarkable - Related Data Home Medications Medication Instructions Recorded Confirmed Ezetimibe [Zetia] 10 mg PEG/G-TUBE HS@2100 08/14/13 01/27/19 ALPRAZolam [Xanax] 0.5 mg PEG/G-TUBE Q8H PRN 08/11/15 01/27/19 Metoprolol Tartrate [Lopressor] 25 mg PEG/G-TUBE TID@0600,1400,2100 02/10/16 01/27/19 Nitroglycerin Sl Tabs [Nitrostat] 0.4 mg SUBLINGUAL Q5M PRN 02/10/16 01/27/19 Aspirin 81 mg PEG/G-TUBE DAILY@1700 04/09/16 01/27/19 Multivit-Min/FA/Lycopen/Lutein 1 tab PEG/G-TUBE DAILY@1700 07/08/16 01/27/19 [Centrum Silver Tablet] Levothyroxine Sodium [Levoxyl] 75 mcg PEG/G-TUBE DAILY@0600 09/26/18 01/27/19 amLODIPine [Norvasc] 5 mg PEG/G-TUBE HS@209909/26/18 01/27/19 Acetaminophen Tab [Tylenol Tab] 650 mg PEG/G-TUBE Q4H PRN 01/27/19 01/27/19 Bisacodyl [Dulcolax] 10 mg RECTAL DAILY PRN 01/27/19 01/27/19 Enoxaparin [Lovenox] 40 mg SQ DAILY@1700 01/27/19 01/27/19 HYDROcodone/APAP 10-325MG [[place] 1 tab PEG/G-TUBE Q4H PRN 01/27/19 01/27/19 10-325] Magnesium Hydroxide [Milk of 7,200 mg PEG/G-TUBE DAILY PRN 01/27/19 01/27/19 Magnesia Concentrate] Na Phos,M-B/Na Phos,Di-Ba [Fleet 133 ml RECTAL ONCE PRN 01/27/19 01/27/19 Adult] Nystatin 100,000Unit/gm Cream 1 applic TOPICAL TID 01/27/19 01/27/19 [Mycostatin Cream] Ondansetron [Zofran] 4 mg PEG/G-TUBE Q6H PRN 01/27/19 01/27/19 Polyethylene Glycol 3350 [Miralax] 17 gm PEG/G-TUBE DAILY PRN 01/27/19 01/27/19 Pregabalin [Lyrica] 25 mg PEG/G-TUBE BID@0800,209901/27/19 01/27/19 Protonix 40mg Packet 40 mg PEG/G-TUBE DAILY@0600 01/27/19 01/27/19 QUEtiapine [SEROquel] 50 mg PEG/G-TUBE BID@0800,209901/27/19 01/27/19 Saliva Stimulant Agents Comb.3 2 spray MUCOUS MEM 10/19/19 10/19/19 [Biotene Moisturizing Mouth] TID@0800,1200,1700 Zolpidem [Ambien] 5 mg PEG/G-TUBE HS PRN 01/27/19 01/27/19 Previous Rx's Medication Instructions Recorded Artificial Tears-Hypromellose 1 drops BOTH EYES TID PRN bottle 10/18/18 [Artificial Tear Drops] Allergies Allergy/AdvReac Type Severity Reaction Status Date / Time No Known Allergies Allergy Verified 02/21/19 16:50 Review of Systems ROS Statement: Those systems with pertinent positive or pertinent negative responses have been documented in the HPI. ROS Other: All systems not noted in ROS Statement are negative. Past Medical History Past Medical History: Atrial Fibrillation, Atrial Flutter, Coronary Artery Disease (CAD), Chest Pain / Angina, Hyperlipidemia, Hypertension, Myocardial Infarction (OK), Osteoarthritis (OA), Prostate Disorder, Skin Disorder, Thyroid Disorder Additional Past Medical History / Comment(s): Diverticulitis, HX PERFORATION. Gout. Eczema. BPH. Chronic Back Pain D/T PINCHED NERVE, has been bedridden since September. HX VERTIGO. FOOD GETTING STUCK IN THROAT - REMOVAL X3. Last Myocardial Infarction Date:: 08/2015 History of Any Multi-Drug Resistant Organisms: VRE Date of last positivie culture/infection: 02/01/19 VRE MDRO Source:: Abdomen & Buttock Past Surgical History: Bowel Resection, Cardiac Ablation, Coronary Bypass/CABG, Heart Catheterization With Stent, Tonsillectomy Additional Past Surgical History / Comment(s): 02/11/16 Cardiac stent to SVG to diagonal; TOTAL 3 NOW. CABG X3 0n 07/11/15. CYST REMOVED FROM HEART 1958; LEFT TESTICLE REMOVED; [employer]. EGD W/ REMOVAL FB X3. Ostomy which failed, and redone. Colostomy since September 2018. Issues with sepsis since. 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 Past Anesthesia/Blood Transfusion Reactions: No Reported Reaction Additional Past Anesthesia/Blood Transfusion Reaction / Comment(s): no family hx Date of Last Stent Placement:: 02/11/16 Past Psychological History: PTSD Additional Psychological History / Comment(s): Pt is a [place] . He s erved in the army. Has night terrors. Smoking Status: Never smoker Past Alcohol Use History: None Reported Additional Past Alcohol Use History / Comment(s): Hx cigar/pipe smoker from teen. quit smoking 1972 Past Drug Use History: None Reported - Past Family History Mother Family Medical History: Unable to Obtain Additional Family Medical History / Comment(s): Mother had a pacemaker. Father History Unknown: Yes Family Medical History: Myocardial Infarction (OK) Course Vital Signs 02/21/19 02/21/19 02/21/19 16:25 16:50 17:02 Temperature 99.5 F Pulse Rate 115 H 115 H 115 H Respiratory 22 20 12 Rate Blood Pressure 99/47 101/58 101/58 O2 Sat by Pulse 96 97 96 Oximetry 02/21/19 02/21/19 02/21/19 17:30 18:10 18:30 Temperature Pulse Rate 117 H 118 H 115 H Respiratory 26 H 14 18 Rate Blood Pressure 106/65 118/60 118/60 O2 Sat by Pulse 98 97 96 Oximetry 02/21/19 02/21/19 02/21/19 18:40 18:45 19:46 Temperature 98.0 F Pulse Rate 120 H 117 H 115 H Respiratory 11 L 28 H 16 Rate Blood Pressure 117/67 94/64 99/60 O2 Sat by Pulse 97 99 98 Oximetry Medical Decision Making - Lab Data Result diagrams: 02/21/19 16:56 02/21/19 16:56 Lab Results 02/21/19 02/21/19 02/21/19 Range/Units 16:30 16:56 16:56 WBC 12.1 H (3.8-10.6) k/uL RBC 4.05 L (4.30-5.90) m/uL Hgb 11.1 L (13.0-17.5) gm/dL Hct 37.4 L (39.0-53.0) % MCV 92.4 (80.0-100.0) fL MCH 27.3 (25.0-35.0) pg MCHC 29.6 L (31.0-37.0) g/dL RDW 17.0 H (11.5-15.5) % Plt Count 509 H (150-450) k/uL Neutrophils % 76 % Lymphocytes % 4 % Monocytes % 6 % Eosinophils % 10 % Basophils % 3 % Neutrophils # 9.2 H (1.3-7.7) k/uL Lymphocytes # 0.4 L (1.0-4.8) k/uL Monocytes # 0.7 (0-1.0) k/uL Eosinophils # 1.2 H (0-0.7) k/uL Basophils # 0.3 H (0-0.2) k/uL Hypochromasia Marked Anisocytosis Slight PT 10.7 (9.0-12.0) sec INR 1.0 (<1.2) APTT 23.5 (22.0-30.0) sec Sodium 141 (137-145) mmol/L Potassium 5.1 (3.5-5.1) mmol/L Chloride 103 (98-107) mmol/L Carbon Dioxide 33 H (22-30) mmol/L Anion Gap 5 mmol/L BUN 34 H (9-20) mg/dL Creatinine 0.70 (0.66-1.25) mg/dL Est GFR (CKD-EPI)AfAm >90 (>60 ml/min/1.73 sqM) Est GFR (CKD-EPI)NonAf 88 (>60 ml/min/1.73 sqM) Glucose 108 H (74-99) mg/dL Plasma Lactic Acid Alexey (0.7-2.0) mmol/L Calcium 9.0 (8.4-10.2) mg/dL Total Bilirubin 0.4 (0.2-1.3) mg/dL AST 135 H (17-59) U/L ALT 101 H (21-72) U/L Alkaline Phosphatase 265 H (38-126) U/L Total Protein 7.4 (6.3-8.2) g/dL Albumin 3.0 L (3.5-5.0) g/dL Urine Color Urine Appearance (Clear) Urine pH (5.0-8.0) Ur Specific [place] (1.001-1.035) Urine Protein (Negative) Urine Glucose (UA) (Negative) Urine Ketones (Negative) Urine Blood (Negative) Urine Nitrite (Negative) Urine Bilirubin (Negative) Urine Urobilinogen (<2.0) mg/dL Ur Leukocyte Esterase (Negative) Urine RBC (0-5) /hpf Urine WBC (0-5) /hpf Amorphous Sediment (None) /hpf Urine Bacteria (None) /hpf Urine Mucus (None) /hpf Influenza Type A RNA (Not Detectd) Influenza Type B (PCR) (Not Detectd) 02/21/19 02/21/19 02/21/19 Range/Units 16:56 17:00 17:08 WBC (3.8-10.6) k/uL RBC (4.30-5.90) m/uL Hgb (13.0-17.5) gm/dL Hct (39.0-53.0) % MCV (80.0-100.0) fL MCH (25.0-35.0) pg MCHC (31.0-37.0) g/dL RDW (11.5-15.5) % Plt Count (150-450) k/uL Neutrophils % % Lymphocytes % % Monocytes % % Eosinophils % % Basophils % % Neutrophils # (1.3-7.7) k/uL Lymphocytes # (1.0-4.8) k/uL Monocytes # (0-1.0) k/uL Eosinophils # (0-0.7) k/uL Basophils # (0-0.2) k/uL Hypochromasia Anisocytosis PT (9.0-12.0) sec INR (<1.2) APTT (22.0-30.0) sec Sodium (137-145) mmol/L Potassium (3.5-5.1) mmol/L Chloride (98-107) mmol/L Carbon Dioxide (22-30) mmol/L Anion Gap mmol/L BUN (9-20) mg/dL Creatinine (0.66-1.25) mg/dL Est GFR (CKD-EPI)AfAm (>60 ml/min/1.73 sqM) Est GFR (CKD-EPI)NonAf (>60 ml/min/1.73 sqM) Glucose (74-99) mg/dL Plasma Lactic Acid Alexey 2.2 H* (0.7-2.0) mmol/L Calcium (8.4-10.2) mg/dL Total Bilirubin (0.2-1.3) mg/dL AST (17-59) U/L ALT (21-72) U/L Alkaline Phosphatase (38-126) U/L Total Protein (6.3-8.2) g/dL Albumin (3.5-5.0) g/dL Urine Color Yellow Urine Appearance Clear (Clear) Urine pH 6.0 (5.0-8.0) Ur Specific [place] 1.020 (1.001-1.035) Urine Protein 1+ H (Negative) Urine Glucose (UA) Negative (Negative) Urine Ketones Negative (Negative) Urine Blood Negative (Negative) Urine Nitrite Negative (Negative) Urine Bilirubin Negative (Negative) Urine Urobilinogen <2.0 (<2.0) mg/dL Ur Leukocyte Esterase Negative (Negative) Urine RBC 5 (0-5) /hpf Urine WBC 1 (0-5) /hpf Amorphous Sediment Rare H (None) /hpf Urine Bacteria Rare H (None) /hpf Urine Mucus Occasional H (None) /hpf Influenza Type A RNA Not Detected (Not Detectd) Influenza Type B (PCR) Not Detected (Not Detectd) Disposition Clinical Impression: Sepsis Disposition: ADMITTED IP TO THIS [facility] Condition: Fair Referrals: Dilshad Lopez DO [Primary Care Provider] - 1-2 days Decision Time: 20:26
[2019-02-21] MEDS ORDERED: LEVOFLOXACIN 750MG-D5W PMX 750 MG in DEXTROSE/WATER 1 150ML.BAG IVPB STA (16:59)
[2019-02-21 17:05] LABS: Anisocytosis Slight; Basophils # (A) 0.3 k/uL (0-0.2); Basophils % (A) 3 %; Eosinophils # (A) 1.2 k/uL (0-0.7); Eosinophils % (A) 10 %; HCT 37.4 % (39.0-53.0); HGB 11.1 gm/dL (13.0-17.5); Hypochromasia Marked; Lymphocytes # (A) 0.4 k/uL (1.0-4.8); Lymphocytes % (A) 4 %; MCH 27.3 pg (25.0-35.0); MCHC 29.6 g/dL (31.0-37.0); MCV 92.4 fL (80.0-100.0); Mean Platelet Volume 6.7; Monocytes # (A) 0.7 k/uL (0-1.0); Monocytes % (A) 6 %; Neutrophils # (A) 9.2 k/uL (1.3-7.7); Neutrophils % (A) 76 %; Platelet Count 509 k/uL (150-450); RBC 4.05 m/uL (4.30-5.90); WBC 12.1 k/uL (3.8-10.6)
[2019-02-21 17:22] LABS: ALT 101 U/L (21-72); AST 135 U/L (17-59); African American GFR (CKD) >90 (>60 ml/min/1.73 sqM); Alkaline Phosphatase 265 U/L (38-126); Anion Gap 5 mmol/L; Blood Urea Nitrogen 34 mg/dL (9-20); Carbon Dioxide 33 mmol/L (22-30); Chloride 103 mmol/L (98-107); Glucose 108 mg/dL (74-99); Non-African American GFR(CKD) 88 (>60 ml/min/1.73 sqM); Potassium 5.1 mmol/L (3.5-5.1); Sodium 141 mmol/L (137-145); Total Bilirubin 0.4 mg/dL (0.2-1.3); Total Protein 7.4 g/dL (6.3-8.2)
[2019-02-21 17:24] LABS: Partial Thromboplastin Time 23.5 sec (22.0-30.0); Prothrombin Time 10.7 sec (9.0-12.0)
[2019-02-21] MEDS: SODIUM CHLORIDE 0.9% 500 ML 500 ML IV SCH ×2 (17:27→17:28)
[2019-02-21 17:31] LABS: Amorphous Sediment,Urine Rare /hpf; Appearance,Urine Clear (Clear); Bacteria,Urine Rare /hpf; Bilirubin,Urine Negative (Negative); Blood,Urine Negative (Negative); Color,Urine Yellow; Glucose,Urine (UA) Negative (Negative); Ketones,Urine Negative (Negative); Leukocyte Esterase,Urine Negative (Negative); Mucus,Urine Occasional /hpf; Nitrite,Urine Negative (Negative); Protein,Urine 1+ (Negative); RBC,Urine 5 /hpf (0-5); Urobilinogen,Urine <2.0 mg/dL (<2.0)
[2019-02-21] MEDS ORDERED: SODIUM CHLORIDE 0.9% 1,000 ML IV STA (18:14)
--- NOTE | 2019-02-21 18:14 | CT ---
EXAMINATION TYPE: CT ChestAbdPelvis w con DATE OF EXAM: 02/21/2019 COMPARISON: 10/11/2018 HISTORY: Left posterior decub ulcer and leaking from reversed Left sided ostomy. CT DLP: 2075.6 mGycm Automated exposure control for dose reduction was used. CONTRAST: CT scan of the chest, abdomen and pelvis is performed without Oral Contrast and with IV Contrast, pat ient injected with 100 mL of Isovue 300. FINDINGS: There is bilateral posterior pulmonary infiltrates and atelectasis. Heart is enlarged. There is no pe ricardial effusion. Thoracic aorta is atheromatous. There is no mediastinal adenopathy. There are no hilar masses. Liver shows no focal defect. Gallbladder appears normal. Spleen is intact. There is no evidence of pa ncreatic mass. Stomach is intact. There is gastrostomy tube in good position in the anterior body of the stomach. There is no adrenal mass. Kidneys show satisfactory contrast opacification. There is no hydronephrosi s. There is 1.5 cm cortical cyst lower pole right kidney. There is no retroperitoneal adenopathy. The re is Bishop catheter in the urinary bladder. There is 2 cm cortical cyst upper pole right kidney. There is some anterior abdominal wall dehiscence. There is ileostomy in the right mid abdomen. There is no sign of a bowel obstruction. Thoracic and lumbar spine appear intact. There is no compression f racture. Bony pelvis is intact. IMPRESSION: Posterior pulmonary infiltrates and atelectasis in minute pleural effusions appear improved slightly compared to 10/11/2018 exam. There is revision of the colostomy. There is right side colostomy that is new compared to old exam. N o bowel obstruction. There is clearing of the abdominal fluid compared to old exam. There is abdominal wall dehiscence that is new compared to old exam.
--- NOTE | 2019-02-21 18:16 | XR ---
EXAMINATION TYPE: XR chest 1V DATE OF EXAM: 02/21/2019 COMPARISON: 01/27/2019 HISTORY: Fever TECHNIQUE: Single frontal view of the chest is obtained. FINDINGS: Heart is enlarged. There are sternal wires. There is no gross heart failure. There is some mild atelectasis at the lung bases. There are chest leads. IMPRESSION: Cardiomegaly. Mild atelectasis right lung base. No significant change.
[2019-02-21] MEDS ORDERED: ACETAMINOPHEN TAB 325 MG TAB PO PRN (20:20)
[2019-02-21] MEDS ORDERED: NALOXONE 0.4 MG/ML 1 ML VIAL IV PRN (20:20)
[2019-02-21] MEDS ORDERED: ONDANSETRON 4 MG/2 ML VIAL IVP PRN (20:20)
[2019-02-21] MEDS ORDERED: ONDANSETRON 4 MG TAB PEG/G-TUBE PRN (20:22)
[2019-02-21] MEDS ORDERED: ZOLPIDEM 5 MG TAB PEG/G-TUBE PRN (20:22)
[2019-02-21] MEDS: SODIUM CHLORIDE 0.9% 1,000 ML IV SCH (20:37)
[2019-02-21] MEDS ORDERED: MAGNESIUM HYDROXIDE 2,400 MG/10 ML CUP PEG/G-TUBE PRN (21:54)
[2019-02-21] MEDS ORDERED: ACETAMINOPHEN TAB 325 MG TAB PEG/G-TUBE PRN (21:54)
[2019-02-21] MEDS ORDERED: NITROGLYCERIN SL TABS 0.4 MG TAB SUBLINGUAL PRN (21:54)
[2019-02-21] MEDS ORDERED: COLCHICINE 0.6 MG EACH PEG/G-TUBE PRN (21:54)
[2019-02-21] MEDS ORDERED: BISACODYL 10 MG SUPP RECTAL PRN (21:54)
[2019-02-21] MEDS: HYDROcodone/APAP 10-325MG 1 EACH TAB PEG/G-TUBE PRN (22:22)
[2019-02-21] MEDS: PREGABALIN 75 MG CAP PEG/G-TUBE SCH (22:23)
[2019-02-21] MEDS: QUEtiapine 50 MG TAB PEG/G-TUBE SCH (22:23)
[2019-02-21] MEDS: PREGABALIN 25 MG CAP PEG/G-TUBE SCH (22:23)
[2019-02-21] MEDS ORDERED: ARTIFICIAL TEARS-HYPROMELLOSE DROPS 15 ML BTL BOTH EYES PRN (23:00)
[2019-02-21] MEDS: NYSTATIN 100,000UNIT/GM CREAM 30 GM TUBE TOPICAL SCH (23:12)
[2019-02-22] MEDS: HYDROcodone/APAP 10-325MG 1 EACH TAB PEG/G-TUBE PRN ×3 (04:12→21:02)
[2019-02-22] MEDS: SODIUM CHLORIDE 0.9% 1,000 ML IV SCH ×3 (04:13→21:12)
[2019-02-22] MEDS: LEVOTHYROXINE 100 MCG TAB PEG/G-TUBE SCH (04:16)
[2019-02-22] MEDS: LEVOTHYROXINE 75 MCG TAB PEG/G-TUBE SCH (04:17)
[2019-02-22] MEDS ORDERED: PANTOPRAZOLE SODIUM 40 MG GRANULE PKT PEG/G-TUBE SCH (06:00)
[2019-02-22] MEDS: IPRATROPIUM-ALBUTEROL 3 ML NEB INHALATION SCH ×4 (07:41→21:10)
[2019-02-22] MEDS: NYSTATIN 100,000UNIT/GM CREAM 30 GM TUBE TOPICAL SCH ×3 (09:17→21:03)
[2019-02-22] MEDS: PREGABALIN 75 MG CAP PEG/G-TUBE SCH ×2 (09:17→21:02)
[2019-02-22] MEDS: DRY MOUTH SPRAY 44.3 SPRAY/44.3 ML SPRAY MUCOUS MEM SCH ×3 (09:17→17:18)
[2019-02-22] MEDS: PREGABALIN 25 MG CAP PEG/G-TUBE SCH ×2 (09:17→21:02)
[2019-02-22] MEDS: QUEtiapine 50 MG TAB PEG/G-TUBE SCH ×2 (09:17→21:48)
[2019-02-22] MEDS: CLOTRIMAZOLE 1% CREAM 15 GM TUBE TOPICAL SCH ×2 (09:17→21:48)
[2019-02-22] MEDS: CHLORHEXIDINE GLUCONATE 15 ML CUP MUCOUS MEM SCH ×2 (09:17→21:48)
[2019-02-22] MEDS: PANTOPRAZOLE 40 MG/10 ML VIAL IV SCH (09:18)
[2019-02-22] MEDS: TRIAMCINOLONE ACET 0.5% CREAM 15 GM TUBE TOPICAL SCH ×2 (09:18→21:48)
[2019-02-22 12:23] VITALS: BMI 33.2
--- NOTE | 2019-02-22 13:38 | P.GSCN ---
History of Present Illness Consult date: 02/22/19 Reason for Consult: wound Requesting physician: Bc Cunningham History of present illness: CHIEF COMPLAINT: Wound HISTORY OF PRESENT ILLNESS: 83-year-old male known to surgical services from admission in September 2018. Patient underwent exploratory laparotomy, sigmoid colectomy with end colostomy, and drainage of abscess secondary to perforated diverticulitis with feculent and purulent peritonitis. Patient apparently was hospitalized at [facility] and required revision of his colostomy. Patient also has a chronic wound to his sacrum that is being managed by Dr. Mixon at the [facility]. Patients son at the bedside and reports mucus/purulent drainage from open wound on the left side of his abdomen. PAST MEDICAL HISTORY: See list. PAST SURGICAL HISTORY: See list. SOCIAL HISTORY: No illicit drug use. REVIEW OF SYSTEMS: Unable to obtain secondary to lethargy. Patient's son at the bedside provides majority of information. PHYSICAL EXAM: VITAL SIGNS: Reviewed. GENERAL: Well-developed in no acute distress. HEENT: No sclera icterus. Extraocular movements grossly intact. Moist buccal mucosa. Head is atraumatic, normocephalic. ABDOMEN: Soft. Nondistended. Nontender. Ostomy to right side of abdomen with stool noted. PEG tube noted. Open wound to left side of abdomen with mucus/purulent drainage. NEUROLOGIC: Lethargic SKIN: Large sacral decubitus ulcer with bone exposed. No necrotic tissue noted. ASSESSMENT: 1. Abdominal wound, can not exclude wound is from previous ostomy 2. History of exploratory laparotomy, sigmoid colectomy with end colostomy, and drainage of abscess secondary to perforated diverticulitis with feculent and purulent peritonitis 3. History of colostomy revision 4. Sacral decubitus ulcer PLAN: Wound vac to sacral decubitus ulcer. No surgical intervention recommended for sacral wound. Obtain fistulogram to evaluate abdominal wound to determine if wound is secondary to old ostomy site with involved bowel. Possible surgical intervention pending results of fistulogram Nurse practitioner note has been reviewed by physician. Signing provider agrees with the documented findings, assessment, and plan of care. Past Medical History Past Medical History: Atrial Fibrillation, Atrial Flutter, Coronary Artery Disease (CAD), Chest Pain / Angina, Hyperlipidemia, Hypertension, Myocardial Infarction ([place]), Osteoarthritis (OA), Prostate Disorder, Skin Disorder, Thyroid Disorder Additional Past Medical History / Comment(s): Diverticulitis, HX PERFORATION. Gout. Eczema. BPH. Chronic Back Pain D/T PINCHED NERVE, has been bedridden since September. HX VERTIGO. FOOD GETTING STUCK IN THROAT - REMOVAL X3. 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 CABG X3 0n 07/11/15. CYST REMOVED FROM HEART 1958; LEFT TESTICLE REMOVED; МАРИНА CATARACTS. EGD W/ REMOVAL FB X3. Ostomy which failed, and redone. Colostomy since September 2018. Issues with sepsis since. At [facility] family was told Rene had a VAP which was drug resistant, unsure of type, November 2018. Past Anesthesia/Blood Transfusion Reactions: No Reported Reaction Additional Past Anesthesia/Blood Transfusion Reaction / Comm: no family hx Date of Last Stent Placement:: 02/11/16 Past Psychological History: PTSD Additional Psychological History / Comment(s): Pt is a [place] . 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 Smoking Status: Never smoker Past Alcohol Use History: None Reported Additional Past Alcohol Use History / Comment(s): Hx cigar/pipe smoker from teen. quit smoking 1972 Past Drug Use History: None Reported - Past Family History Mother Family Medical History: Unable to Obtain Additional Family Medical History / Comment(s): Mother had a pacemaker. Father History Unknown: Yes Family Medical History: Myocardial Infarction ([place]) Medications and Allergies Home Medications Medication Instructions Recorded Confirmed Type Ezetimibe [Zetia] 10 mg PEG/G-TUBE HS@2100 08/14/13 02/21/19 History ALPRAZolam [Xanax] 0.5 mg PEG/G-TUBE Q8H PRN 08/11/15 02/21/19 History Metoprolol Tartrate [Lopressor] 25 mg PEG/G-TUBE BID@0800,2100 02/10/16 02/21/19 History Nitroglycerin Sl Tabs [Nitrostat] 0.4 mg SUBLINGUAL Q5M PRN 02/10/16 02/21/19 History Aspirin 81 mg PEG/G-TUBE DAILY@1700 04/09/16 02/21/19 History amLODIPine [Norvasc] 5 mg PEG/G-TUBE HS@2100 09/26/18 02/21/19 History Acetaminophen Tab [Tylenol Tab] 650 mg PEG/G-TUBE Q4H PRN 01/27/19 02/21/19 History Bisacodyl [Dulcolax] 10 mg RECTAL DAILY PRN 01/27/19 02/21/19 History HYDROcodone/APAP 10-325MG [[place] 1 tab PEG/G-TUBE Q4H PRN 01/27/19 02/21/19 History 10-325] Magnesium Hydroxide [Milk of 7,200 mg PEG/G-TUBE DAILY PRN 01/27/19 02/21/19 History Magnesia Concentrate] Na Phos,M-B/Na Phos,Di-Ba [Fleet 133 ml RECTAL ONCE PRN 01/27/19 02/21/19 History Adult] Ondansetron [Zofran] 4 mg PEG/G-TUBE Q6H PRN 01/27/19 02/21/19 History Protonix 40mg Packet 40 mg PEG/G-TUBE DAILY@0600 01/27/19 02/21/19 History QUEtiapine [SEROquel] 50 mg PEG/G-TUBE BID@0800,2100 01/27/19 02/21/19 History Chlorhexidine Gluconate [Peridex] 15 ml MUCOUS MEM BID 02/21/19 02/21/19 History Colchicine [Colcrys] 0.6 mg PEG/G-TUBE DAILY PRN 02/21/19 02/21/19 History Econazole Nitrate [Econazole 1 applic TOPICAL BID 02/21/19 02/21/19 History Nitrate 1%] Enoxaparin [Lovenox] 40 mg SQ DAILY@1700 02/21/19 02/21/19 History Ferrous Sulfate [Iron] 325 mg PEG/G-TUBE DAILY@1700 02/21/19 02/21/19 History INSULIN ASPART (NovoLOG) [NovoLOG See Protocol SQ Q6H 02/21/19 02/21/19 History (formulary)] Insulin Detemir (Levemir) [Levemir] 2 unit SQ HS@209902/21/19 02/21/19 History Ipratropium-Albuterol Nebulize 3 ml INHALATION RT-QID 02/21/19 02/21/19 History [Duoneb 0.5 mg-3 mg/3 ml Soln] Levofloxacin [Levaquin] 500 mg PEG/G-TUBE DAILY@1700 02/21/19 02/21/19 History Levothyroxine Sodium [Synthroid] 100 mcg PEG/G-TUBE DAILY@0600 02/21/19 02/21/19 History Multivitamins, Thera [Multivitamin 1 tab PEG/G-TUBE DAILY@1700 02/21/19 02/21/19 History (formulary)] Nystatin 100,000Unit/gm Cream 1 applic TOPICAL TID 02/21/19 02/21/19 History [Mycostatin Cream] Polyvinyl Alcohol/Povidone [Clear 1 drop BOTH EYES TID PRN 02/21/19 02/21/19 History Eyes Natural Tears Drop] Pravastatin Sodium [Pravachol] 40 mg PEG/G-TUBE HS@209902/21/19 02/21/19 History Pregabalin [Lyrica] 75 mg PEG/G-TUBE BID@0800,209902/21/19 02/21/19 History Saliva Stimulant Agents Comb.3 1 spray PO TID@0800,1200,1700 02/21/19 02/21/19 History [Biotene Moisturizing Mouth] Tamsulosin HCl [Flomax] 0.4 mg PEG/G-TUBE HS@209902/21/19 02/21/19 History Triamcinolone 0.5% Cream [Kenalog 1 applic TOPICAL BID 02/21/19 02/21/19 History 0.5% Cream] Allergies Allergy/AdvReac Type Severity Reaction Status Date / Time No Known Allergies Allergy Verified 02/21/19 20:59 Surgical - Exam Vital Signs Temp Pulse Resp BP Pulse Ox 99.5 F 115 H 22 99/47 96 02/21/19 16:25 02/21/19 16:25 02/21/19 16:25 02/21/19 16:25 02/21/19 16:25 Results - Labs 02/21/19 16:56 02/21/19 16:56 Abnormal Lab Results - Last 24 Hours (Table) 02/21/19 02/21/19 02/21/19 Range/Units 16:56 16:56 16:56 WBC 12.1 H (3.8-10.6) k/uL RBC 4.05 L (4.30-5.90) m/uL Hgb 11.1 L (13.0-17.5) gm/dL Hct 37.4 L (39.0-53.0) % MCHC 29.6 L (31.0-37.0) g/dL RDW 17.0 H (11.5-15.5) % Plt Count 509 H (150-450) k/uL Neutrophils # 9.2 H (1.3-7.7) k/uL Lymphocytes # 0.4 L (1.0-4.8) k/uL Eosinophils # 1.2 H (0-0.7) k/uL Basophils # 0.3 H (0-0.2) k/uL Carbon Dioxide 33 H (22-30) mmol/L BUN 34 H (9-20) mg/dL Glucose 108 H (74-99) mg/dL Plasma Lactic Acid Alexey 2.2 H* (0.7-2.0) mmol/L AST 135 H (17-59) U/L ALT 101 H (21-72) U/L Alkaline Phosphatase 265 H (38-126) U/L Albumin 3.0 L (3.5-5.0) g/dL Urine Protein (Negative) Amorphous Sediment (None) /hpf Urine Bacteria (None) /hpf Urine Mucus (None) /hpf 02/21/19 02/21/19 Range/Units 17:08 20:56 WBC (3.8-10.6) k/uL RBC (4.30-5.90) m/uL Hgb (13.0-17.5) gm/dL Hct (39.0-53.0) % MCHC (31.0-37.0) g/dL RDW (11.5-15.5) % Plt Count (150-450) k/uL Neutrophils # (1.3-7.7) k/uL Lymphocytes # (1.0-4.8) k/uL Eosinophils # (0-0.7) k/uL Basophils # (0-0.2) k/uL Carbon Dioxide (22-30) mmol/L BUN (9-20) mg/dL Glucose (74-99) mg/dL Plasma Lactic Acid Alexey 2.3 H* (0.7-2.0) mmol/L AST (17-59) U/L ALT (21-72) U/L Alkaline Phosphatase (38-126) U/L Albumin (3.5-5.0) g/dL Urine Protein 1+ H (Negative) Amorphous Sediment Rare H (None) /hpf Urine Bacteria Rare H (None) /hpf Urine Mucus Occasional H (None) /hpf Microbiology - Last 24 Hours (Table) 02/21/19 17:00 Gram Stain - Preliminary Buttock Wound Culture - Preliminary 02/21/19 17:00 Gram Stain - Preliminary Abdomen Wound Culture - Preliminary Diabetes panel 02/21/19 Range/Units 16:56 Sodium 141 (137-145) mmol/L Potassium 5.1 (3.5-5.1) mmol/L Chloride 103 (98-107) mmol/L Carbon Dioxide 33 H (22-30) mmol/L BUN 34 H (9-20) mg/dL Creatinine 0.70 (0.66-1.25) mg/dL Glucose 108 H (74-99) mg/dL Calcium 9.0 (8.4-10.2) mg/dL AST 135 H (17-59) U/L ALT 101 H (21-72) U/L Alkaline Phosphatase 265 H (38-126) U/L Total Protein 7.4 (6.3-8.2) g/dL Albumin 3.0 L (3.5-5.0) g/dL Calcium panel 02/21/19 Range/Units 16:56 Calcium 9.0 (8.4-10.2) mg/dL Albumin 3.0 L (3.5-5.0) g/dL Pituitary panel 02/21/19 Range/Units 16:56 Sodium 141 (137-145) mmol/L Potassium 5.1 (3.5-5.1) mmol/L Chloride 103 (98-107) mmol/L Carbon Dioxide 33 H (22-30) mmol/L BUN 34 H (9-20) mg/dL Creatinine 0.70 (0.66-1.25) mg/dL Glucose 108 H (74-99) mg/dL Calcium 9.0 (8.4-10.2) mg/dL Adrenal panel 02/21/19 Range/Units 16:56 Sodium 141 (137-145) mmol/L Potassium 5.1 (3.5-5.1) mmol/L Chloride 103 (98-107) mmol/L Carbon Dioxide 33 H (22-30) mmol/L BUN 34 H (9-20) mg/dL Creatinine 0.70 (0.66-1.25) mg/dL Glucose 108 H (74-99) mg/dL Calcium 9.0 (8.4-10.2) mg/dL Total Bilirubin 0.4 (0.2-1.3) mg/dL AST 135 H (17-59) U/L ALT 101 H (21-72) U/L Alkaline Phosphatase 265 H (38-126) U/L Total Protein 7.4 (6.3-8.2) g/dL Albumin 3.0 L (3.5-5.0) g/dL
--- NOTE | 2019-02-22 13:44 | FL ---
EXAMINATION TYPE: FL fistulogram DATE OF EXAM: 02/22/2019 CLINICAL DATA: 83-year-old male evaluate abdominal wound, possible old ostomy site, [facility] COMPARISON: CT 02/21/2019 Total fluoroscopy time: 58 seconds. Total images: 34. FINDINGS: Focal left mid abdominal wound was exposed and noted to have purulent material partially filling it. A 16 Nepali Bishop catheter was advanced approximately 5 cm into this wound until resistance was met. Approximately 50 mL of Isovue 370 contrast material was injected. There is filling of an irregular ca vity and then contrast material is seen tracking proximally along the catheter and spilling over the abdomen. Oblique images were obtained and no discrete extension into the deeper intra-abdominal space could be identified. Most of the injected contrast tracks back and spills over onto the abdomen. IMPRESSION: 1. A total of 50 mL of contrast was injected after cannulating the left mid abdominal wound with a 16 Nepali Bishop catheter. The catheter was advanced approximately 5 cm into the wound. Most of the cont rast tracks back and spills over onto the abdomen. A small amount fills the wound cavity. No discrete extension of contrast into the deeper intra-abdominal space. 2. If there is persistent suspicion for a subtle fistula tract, the clinician may assist with cannula tion.
[2019-02-22] MEDS ORDERED: VANCOMYCIN IV PER PHARMACY 1 EACH MISC MISCELLANE PRN (13:51)
[2019-02-22] MEDS: CEFEPIME 2 GM in SODIUM CHLORIDE 0.9% 100 ML IVPB SCH ×2 (14:18→21:02)
[2019-02-22] MEDS: VANCOMYCIN 1,750 MG in SODIUM CHLORIDE 0.9% 500 ML 500 ML IVPB SCH (15:30)
[2019-02-22] MEDS ORDERED: LEVOFLOXACIN 500 MG TAB PEG/G-TUBE SCH (17:00)
[2019-02-22] MEDS: FERROUS SULFATE 325 MG TAB PO SCH (17:09)
[2019-02-22] MEDS: ENOXAPARIN 40 MG/0.4 ML SYRINGE SQ SCH (17:18)
[2019-02-22] MEDS: MULTIVITAMINS, THERA 1 EACH TAB PEG/G-TUBE SCH (17:18)
[2019-02-22] MEDS: ASPIRIN 81 MG PEG/G-TUBE SCH (17:18)
--- NOTE | 2019-02-22 17:25 | P.HPIM ---
History of Present Illness H&P Date: 02/22/19 Chief Complaint: Fever History of presenting complaint: This is a 82-year-old patient of Dr. Lopez. Patient was in the hospital from September 30 through October [id number]. Patient then had presented with acute perforated diverticulitis. Had a sigmoid colectomy, had a drain in place with partial closure of the incision. Also had wound VAC on the lower half of the abdominal wall. Patient being followed by Dr. Woodward from general surgery and Dr. Park from infectious disease. Patient was discharged to [facility]. Patient has couple of times back and forth from [facility] special[facility] to [facility]. Then was transferred to [facility]. Patient did have a colostomy in the past and had revision that was done at [facility]. Patient currently is a PEG tube for feeding. Patient's chronic stable medical conditions include gout, BPH, chronic low back pain, large sacral decubitus wound which patient had a wound VAC in place. Patient also is a large anterior abdominal wound which she's been healing with secondary intention. Patient does communicate rather briefly. Patient is currently on a pured diet with assistance. Patient had been here and hospital on January 28 and patient was then transferred to [facility] where Dr. Machado team had taken care of him. Yesterday-patient presented here from the [facility]. The clinical picture of sepsis. Has had fever. Sacral wounds are getting worse. Also abdominal stoma has been draining. Dr. Woodward from general surgery was consulted and so was Dr. Park from ID. Patient's son and at the bedside. Review of systems: Unable to obtain except for that as above as patient not able to communicate.. Past medical history: Coronary artery disease with stent and bypass, atrial flutter, hypertension, hyperlipidemia, osteoporosis status, BPH, hypothyroid, sigmoid diverticulitis with perforation, intra-abdominal abscess, gout, PTSD, colostomy, pneumonia, Social history: Patient is an [employer] . Did smoke a pipe and cigar stopped 1971. Did recently has been between select specialty at [facility]. Currently at rehab at [facility]. Physical examination: VITAL SIGNS: 99.5, 115, 22, 99/47, 96% room air GENERAL: BMI 33.2, laying in bed tired and lethargic, but arousable EYES: Pupils equal. Conjunctiva pale HEENT: External appearance of nose and ears normal, oral cavity dry. NECK: JVD unable to assess; masses not palpable. HEART: Heart sounds irregular , no edema. LUNGS: Respiratory rate increased; decreased breath sounds. ABDOMEN: Soft, some abdominal tenderness, no guarding no rigidity, liver spleen not palpable, no masses palpable, bowel sounds present. Colostomy bag on the right side. Feeding tube . abdominal wall stoma on the left side, but p urulent drainage LYMPHATICS: No lymph nodes palpable in the axilla and neck. PSYCH: Lethargic, but arousable, unable to assessl. NEUROLOGICAL: Cranial nerves grossly intact; no facial asymmetry, decreased both lower extremities, supportive boots in place DERMATOLOGICAL:: Large sacral wound stage IV, pictures in the chart Investigations reviewed in the clinical context White count 12.1 hemoglobin 11.1 L 50 Potassium 5.1 crit 0.7 lactic acid 2.2 AST 135 ALT 101 albumin 3 EKG tracing personally reviewed by me-sinus tachycardia, rate protocol block Chest x-ray film personally reviewed by me-showing underpenetration Assessment: -Acute on chronic abdominal incision wound, stoma with purulent drainage, with a septic picture, POA -Sepsis with multiple source of infection including large decubitus sacral wound and abdominal wound that is draining -History of t atrial flutter, -Coronary artery disease with prior history of stent and bypass -Sigmoid colectomy with a resultant colostomy -Hyperlipidemia -Essential hypertension -Primary osteoarthritis -BPH -Hypothyroidism -Chronic gout -PTSD -PEG tube feeding -Large stage IV sacral decubitus ulcer infected appearing -Normocytic anemia of chronic disease Plan: Patient is on IV vancomycin and IV cefepime. 2 feeding have been resumed. Wound care per Dr. Trace Park. Other medications resumed. Pured diet with supervision to continue. Care was discussed at length with patient's and son at the bedside. Discussed with Dr. Woodward earlier today. Fistulogram to be done. Past Medical History Past Medical History: Atrial Fibrillation, Atrial Flutter, Coronary Artery Disease (CAD), Chest Pain / Angina, Hyperlipidemia, Hypertension, Myocardial Infarction ([place]), Osteoarthritis ([place]), Prostate Disorder, Skin Disorder, Thyroid Disorder Additional Past Medical History / Comment(s): Diverticulitis, HX PERFORATION. Gout. Eczema. BPH. Chronic Back Pain D/T PINCHED NERVE, has been bedridden since September. HX VERTIGO. FOOD GETTING STUCK IN THROAT - REMOVAL X3. Last Myocardial Infarction Date:: 08/2015 History of Any Multi-Drug Resistant Organisms: VRE Date of last positivie culture/infection: 02/01/19 VRE MDRO Source:: Abdomen & Buttock Past Surgical History: Bowel Resection, Cardiac Ablation, Coronary Bypass/CABG, Heart Catheterization With Stent, Tonsillectomy Additional Past Surgical History / Comment(s): 02/11/16 Cardiac stent to SVG to diagonal; TOTAL 3 NOW. CABG X3 0n 07/11/15. CYST REMOVED FROM HEART 1958; LEFT TESTICLE REMOVED; МАРИНА CATARACTS. EGD W/ REMOVAL FB X3. Ostomy which failed, and redone. Colostomy since September 2018. Issues with sepsis since. At [facility] family was told Rene had a VAP which was drug resistant, unsure of type, November 2018. 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 Smoking Status: Never smoker Past Alcohol Use History: None Reported Additional Past Alcohol Use History / Comment(s): Hx cigar/pipe smoker from teen. quit smoking 1972 Past Drug Use History: None Reported - Past Family History Mother Family Medical History: Unable to Obtain Additional Family Medical History / Comment(s): Mother had a pacemaker. Father History Unknown: Yes Family Medical History: Myocardial Infarction ([place]) Medications and Allergies Home Medications Medication Instructions Recorded Confirmed Type Ezetimibe [Zetia] 10 mg PEG/G-TUBE HS@2100 08/14/13 02/21/19 History ALPRAZolam [Xanax] 0.5 mg PEG/G-TUBE Q8H PRN 08/11/15 02/21/19 History Metoprolol Tartrate [Lopressor] 25 mg PEG/G-TUBE BID@0800,2100 02/10/16 02/21/19 History Nitroglycerin Sl Tabs [Nitrostat] 0.4 mg SUBLINGUAL Q5M PRN 02/10/16 02/21/19 History Aspirin 81 mg PEG/G-TUBE DAILY@1700 04/09/16 02/21/19 History amLODIPine [Norvasc] 5 mg PEG/G-TUBE HS@2100 09/26/18 02/21/19 History Acetaminophen Tab [Tylenol Tab] 650 mg PEG/G-TUBE Q4H PRN 01/27/19 02/21/19 History Bisacodyl [Dulcolax] 10 mg RECTAL DAILY PRN 01/27/19 02/21/19 History HYDROcodone/APAP 10-325MG [[place] 1 tab PEG/G-TUBE Q4H PRN 01/27/19 02/21/19 History 10-325] Magnesium Hydroxide [Milk of 7,200 mg PEG/G-TUBE DAILY PRN 01/27/19 02/21/19 History Magnesia Concentrate] Na Phos,M-B/Na Phos,Di-Ba [Fleet 133 ml RECTAL ONCE PRN 01/27/19 02/21/19 History Adult] Ondansetron [Zofran] 4 mg PEG/G-TUBE Q6H PRN 01/27/19 02/21/19 History Protonix 40mg Packet 40 mg PEG/G-TUBE DAILY@0600 01/27/19 02/21/19 History QUEtiapine [SEROquel] 50 mg PEG/G-TUBE BID@0800,2100 01/27/19 02/21/19 History Chlorhexidine Gluconate [Peridex] 15 ml MUCOUS MEM BID 02/21/19 02/21/19 History Colchicine [Colcrys] 0.6 mg PEG/G-TUBE DAILY PRN 02/21/19 02/21/19 History Econazole Nitrate [Econazole 1 applic TOPICAL BID 02/21/19 02/21/19 History Nitrate 1%] Enoxaparin [Lovenox] 40 mg SQ DAILY@1700 02/21/19 02/21/19 History Ferrous Sulfate [Iron] 325 mg PEG/G-TUBE DAILY@1700 02/21/19 02/21/19 History INSULIN ASPART (NovoLOG) [NovoLOG See Protocol SQ Q6H 02/21/19 02/21/19 History (formulary)] Insulin Detemir (Levemir) [Levemir] 2 unit SQ HS@2100 02/21/19 02/21/19 History Ipratropium-Albuterol Nebulize 3 ml INHALATION RT-QID 02/21/19 02/21/19 History [Duoneb 0.5 mg-3 mg/3 ml Soln] Levofloxacin [Levaquin] 500 mg PEG/G-TUBE DAILY@1700 02/21/19 02/21/19 History Levothyroxine Sodium [Synthroid] 100 mcg PEG/G-TUBE DAILY@0600 02/21/19 02/21/19 History Multivitamins, Thera [Multivitamin 1 tab PEG/G-TUBE DAILY@1700 02/21/19 02/21/19 History (formulary)] Nystatin 100,000Unit/gm Cream 1 applic TOPICAL TID 02/21/19 02/21/19 History [Mycostatin Cream] Polyvinyl Alcohol/Povidone [Clear 1 drop BOTH EYES TID PRN 02/21/19 02/21/19 History Eyes Natural Tears Drop] Pravastatin Sodium [Pravachol] 40 mg PEG/G-TUBE HS@209902/21/19 02/21/19 History Pregabalin [Lyrica] 75 mg PEG/G-TUBE BID@0800,2100 02/21/19 02/21/19 History Saliva Stimulant Agents Comb.3 1 spray PO TID@0800,1200,1700 02/21/19 02/21/19 History [Biotene Moisturizing Mouth] Tamsulosin HCl [Flomax] 0.4 mg PEG/G-TUBE HS@209902/21/19 02/21/19 History Triamcinolone 0.5% Cream [Kenalog 1 applic TOPICAL BID 02/21/19 02/21/19 History 0.5% Cream] Allergies Allergy/AdvReac Type Severity Reaction Status Date / Time No Known Allergies Allergy Verified 02/21/19 20:59 Physical Exam Vitals: Vital Signs Temp Pulse Pulse Resp BP BP Pulse Ox 02/22/19 07:37 97.7 F 117 H 20 106/58 98 02/22/19 03:53 98.8 F 117 H 16 105/69 96 02/22/19 03:52 98.0 F 116 H 20 122/71 99 02/22/19 01:00 114 H 02/21/19 21:24 98.0 F 114 H 18 110/68 98 02/21/19 20:43 112 H 16 118/70 98 02/21/19 19:46 98.0 F 115 H 16 99/60 98 02/21/19 18:45 117 H 28 H 94/64 99 02/21/19 18:40 120 H 11 L 117/67 97 02/21/19 18:30 115 H 18 118/60 96 02/21/19 18:10 118 H 14 118/60 97 02/21/19 17:30 117 H 26 H 106/65 98 02/21/19 17:02 115 H 12 101/58 96 02/21/19 16:50 115 H 20 101/58 97 02/21/19 16:25 99.5 F 115 H 22 99/47 96 Intake and Output 02/21/19 02/22/19 02/22/19 22:59 06:59 14:59 Intake Total 350 Output Total 1220 Balance -870 Intake: Tube Feeding 350 Output: Urine 1200 Uretheral (Bishop) 1200 Stool 20 Other: Voiding Method Indwelling Catheter Weight 114.305 kg Results CBC & Chem 7: 02/21/19 16:56 02/21/19 16:56 Labs: Abnormal Lab Results - Last 24 Hours (Table) 02/21/19 02/21/19 02/21/19 Range/Units 16:56 16:56 16:56 WBC 12.1 H (3.8-10.6) k/uL RBC 4.05 L (4.30-5.90) m/uL Hgb 11.1 L (13.0-17.5) gm/dL Hct 37.4 L (39.0-53.0) % MCHC 29.6 L (31.0-37.0) g/dL RDW 17.0 H (11.5-15.5) % Plt Count 509 H (150-450) k/uL Neutrophils # 9.2 H (1.3-7.7) k/uL Lymphocytes # 0.4 L (1.0-4.8) k/uL Eosinophils # 1.2 H (0-0.7) k/uL Basophils # 0.3 H (0-0.2) k/uL Carbon Dioxide 33 H (22-30) mmol/L BUN 34 H (9-20) mg/dL Glucose 108 H (74-99) mg/dL Plasma Lactic Acid Alexey 2.2 H* (0.7-2.0) mmol/L AST 135 H (17-59) U/L ALT 101 H (21-72) U/L Alkaline Phosphatase 265 H (38-126) U/L Albumin 3.0 L (3.5-5.0) g/dL Urine Protein (Negative) Amorphous Sediment (None) /hpf Urine Bacteria (None) /hpf Urine Mucus (None) /hpf 02/21/19 02/21/19 Range/Units 17:08 20:56 WBC (3.8-10.6) k/uL RBC (4.30-5.90) m/uL Hgb (13.0-17.5) gm/dL Hct (39.0-53.0) % MCHC (31.0-37.0) g/dL RDW (11.5-15.5) % Plt Count (150-450) k/uL Neutrophils # (1.3-7.7) k/uL Lymphocytes # (1.0-4.8) k/uL Eosinophils # (0-0.7) k/uL Basophils # (0-0.2) k/uL Carbon Dioxide (22-30) mmol/L BUN (9-20) mg/dL Glucose (74-99) mg/dL Plasma Lactic Acid Alexey 2.3 H* (0.7-2.0) mmol/L AST (17-59) U/L ALT (21-72) U/L Alkaline Phosphatase (38-126) U/L Albumin (3.5-5.0) g/dL Urine Protein 1+ H (Negative) Amorphous Sediment Rare H (None) /hpf Urine Bacteria Rare H (None) /hpf Urine Mucus Occasional H (None) /hpf Microbiology - Last 24 Hours (Table) 02/21/19 17:00 Gram Stain - Preliminary Buttock Wound Culture - Preliminary 02/21/19 17:00 Gram Stain - Preliminary Abdomen Wound Culture - Preliminary Thrombosis Risk Factor Assmnt - Choose All That Apply Each Risk Factor Represents 3 Points: Age 75 years or older Thrombosis Risk Factor Assessment Total Risk Factor Score: 3 Thrombosis Risk Factor Assessment Level: Moderate Risk
[2019-02-22] MEDS: amLODIPine 5 MG TAB PEG/G-TUBE SCH (21:02)
[2019-02-22] MEDS: INSULIN DETEMIR (LEVEMIR) 100 UNIT/ML SYR SQ SCH (21:03)
[2019-02-22] MEDS: TAMSULOSIN 0.4 MG CAP.ER.24H PO SCH (21:04)
[2019-02-22] MEDS: PRAVASTATIN SODIUM 40 MG TAB PO SCH (21:11)
[2019-02-22] MEDS: EZETIMIBE 10 MG TAB PEG/G-TUBE SCH (21:48)
[2019-02-23] MEDS: VANCOMYCIN 1,750 MG in SODIUM CHLORIDE 0.9% 500 ML 500 ML IVPB SCH ×2 (01:36→12:09)
[2019-02-23] MEDS: LEVOTHYROXINE 100 MCG TAB PEG/G-TUBE SCH (05:41)
[2019-02-23] MEDS: HYDROcodone/APAP 10-325MG 1 EACH TAB PEG/G-TUBE PRN ×3 (05:41→21:10)
[2019-02-23] MEDS: LEVOTHYROXINE 75 MCG TAB PEG/G-TUBE SCH (05:41)
[2019-02-23] MEDS: SODIUM CHLORIDE 0.9% 1,000 ML IV SCH ×3 (05:48→22:57)
[2019-02-23] MEDS: IPRATROPIUM-ALBUTEROL 3 ML NEB INHALATION SCH ×4 (08:02→20:42)
[2019-02-23 08:15] LABS: African American GFR (CKD) >90 (>60 ml/min/1.73 sqM); Non-African American GFR(CKD) >90 (>60 ml/min/1.73 sqM)
--- NOTE | 2019-02-23 08:41 | P.CONS ---
History of Present Illness - Reason for Consult Consult date: 02/22/19 Infected sacral pressure ulcer and abdominal wound Requesting physician: Cosme Colon - Chief Complaint Pain sacral wound nonhealing x days - History of Present Illness Patient is 83-year-old male who was recently admitted at this facility with ruptured diverticulitis and abdominal abscess patient requiring laparotomy and diverting colostomy patient did have prolonged hospital stay and subsequently was sent to and did have subsequent abdominal surgery ended up having a diverting ileostomy patient has also developed a sacral pressure ulcer which has been treated currently with the wound VAC the patient has been sent to the ER at [facility] per request of his wound care physician at the halfway as he did not like the look office sacral wound and mentioning it needs to be held debridement the patient also have a nonhealing wound at his previous colostomy site with some purulent drainage with the patient has been told this is just the normal secretion of forgot the patient to has recovered of some chills but denies high-grade fever the patient denies having any chest pain or shortness of breath or cough the patient did have some abdominal pain more of a dull aching mild intensity no worsening patient also have pain to the sacral wound area which has been mild in intensity, radiation apparently these symptoms have a problem with a wound VAC placement for the last few days and there is no significant purulent drainage with the symptom has the patient was evaluated by the physician on wound to the ER the patient did not have any high-grade fever his white count was mildly elevated at 4.1 the patient did have a CT of abdominal pelvis and chest which mentioned abdominal wound dehiscence but no evidence of any intra-abdominal abscess or any pneumonia patient was started on Levaquin admitted to the hospital infectious disease was consulted for further recommendation regarding antibiotic therapy Review of Systems Positive point has been mentioned in the HPI rest of the systems are negative Past Medical History Past Medical History: Atrial Fibrillation, Atrial Flutter, Coronary Artery Disease (CAD), Chest Pain / Angina, Hyperlipidemia, Hypertension, Myocardial Infarction (AR), Osteoarthritis (OA), Prostate Disorder, Skin Disorder, Thyroid Disorder Additional Past Medical History / Comment(s): Diverticulitis, HX PERFORATION. G out. Eczema. BPH. Chronic Back Pain D/T PINCHED NERVE, has been bedridden since September. HX VERTIGO. FOOD GETTING STUCK IN THROAT - REMOVAL X3. 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 CABG X3 0n 07/11/15. CYST REMOVED FROM HEART 1958; LEFT TESTICLE REMOVED; [employer]А [employer]S. EGD W/ REMOVAL FB X3. Ostomy which failed, and redone. Colostomy since September 2018. Issues with sepsis since. At [facility] family was told Rene had a VAP which was drug resistant, unsure of type, November 2018. Past Anesthesia/Blood Transfusion Reactions: No Reported Reaction Additional Past Anesthesia/Blood Transfusion Reaction / Comm: no family hx Date of Last Stent Placement:: 02/11/16 Past Psychological History: PTSD Additional Psychological History / Comment(s): Pt is a [place] . 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 Smoking Status: Never smoker Past Alcohol Use History: None Reported Additional Past Alcohol Use History / Comment(s): Hx cigar/pipe smoker from teen. quit smoking 1972 Past Drug Use History: None Reported - Past Family History Mother Family Medical History: Unable to Obtain Additional Family Medical History / Comment(s): Mother had a pacemaker. Father History Unknown: Yes Family Medical History: Myocardial Infarction (AR) Medications and Allergies Home Medications Medication Instructions Recorded Confirmed Type Ezetimibe [Zetia] 10 mg PEG/G-TUBE HS@209908/14/13 02/21/19 History ALPRAZolam [Xanax] 0.5 mg PEG/G-TUBE Q8H PRN 08/11/15 02/21/19 History Metoprolol Tartrate [Lopressor] 25 mg PEG/G-TUBE BID@0800,209902/10/16 02/21/19 History Nitroglycerin Sl Tabs [Nitrostat] 0.4 mg SUBLINGUAL Q5M PRN 02/10/16 02/21/19 History Aspirin 81 mg PEG/G-TUBE DAILY@1700 04/09/16 02/21/19 History amLODIPine [Norvasc] 5 mg PEG/G-TUBE HS@2100 09/26/18 02/21/19 History Acetaminophen Tab [Tylenol Tab] 650 mg PEG/G-TUBE Q4H PRN 01/27/19 02/21/19 History Bisacodyl [Dulcolax] 10 mg RECTAL DAILY PRN 01/27/19 02/21/19 History HYDROcodone/APAP 10-325MG [[place] 1 tab PEG/G-TUBE Q4H PRN 01/27/19 02/21/19 History 10-325] Magnesium Hydroxide [Milk of 7,200 mg PEG/G-TUBE DAILY PRN 01/27/19 02/21/19 History Magnesia Concentrate] Na Phos,M-B/Na Phos,Di-Ba [Fleet 133 ml RECTAL ONCE PRN 01/27/19 02/21/19 History Adult] Ondansetron [Zofran] 4 mg PEG/G-TUBE Q6H PRN 01/27/19 02/21/19 History Protonix 40mg Packet 40 mg PEG/G-TUBE DAILY@0600 01/27/19 02/21/19 History QUEtiapine [SEROquel] 50 mg PEG/G-TUBE BID@0800,2100 01/27/19 02/21/19 History Chlorhexidine Gluconate [Peridex] 15 ml MUCOUS MEM BID 02/21/19 02/21/19 History Colchicine [Colcrys] 0.6 mg PEG/G-TUBE DAILY PRN 02/21/19 02/21/19 History Econazole Nitrate [Econazole 1 applic TOPICAL BID 02/21/19 02/21/19 History Nitrate 1%] Enoxaparin [Lovenox] 40 mg SQ DAILY@1700 02/21/19 02/21/19 History Ferrous Sulfate [Iron] 325 mg PEG/G-TUBE DAILY@1700 02/21/19 02/21/19 History INSULIN ASPART (NovoLOG) [NovoLOG See Protocol SQ Q6H 02/21/19 02/21/19 History (formulary)] Insulin Detemir (Levemir) [Levemir] 2 unit SQ HS@2100 02/21/19 02/21/19 History Ipratropium-Albuterol Nebulize 3 ml INHALATION RT-QID 02/21/19 02/21/19 History [Duoneb 0.5 mg-3 mg/3 ml Soln] Levofloxacin [Levaquin] 500 mg PEG/G-TUBE DAILY@1700 02/21/19 02/21/19 History Levothyroxine Sodium [Synthroid] 100 mcg PEG/G-TUBE DAILY@0600 02/21/19 02/21/19 History Multivitamins, Thera [Multivitamin 1 tab PEG/G-TUBE DAILY@1700 02/21/19 02/21/19 History (formulary)] Nystatin 100,000Unit/gm Cream 1 applic TOPICAL TID 02/21/19 02/21/19 History [Mycostatin Cream] Polyvinyl Alcohol/Povidone [Clear 1 drop BOTH EYES TID PRN 02/21/19 02/21/19 History Eyes Natural Tears Drop] Pravastatin Sodium [Pravachol] 40 mg PEG/G-TUBE HS@2100 02/21/19 02/21/19 History Pregabalin [Lyrica] 75 mg PEG/G-TUBE BID@0800,2100 02/21/19 02/21/19 History Saliva Stimulant Agents Comb.3 1 spray PO TID@0800,1200,1700 02/21/19 02/21/19 History [Biotene Moisturizing Mouth] Tamsulosin HCl [Flomax] 0.4 mg PEG/G-TUBE HS@2100 02/21/19 02/21/19 History Triamcinolone 0.5% Cream [Kenalog 1 applic TOPICAL BID 02/21/19 02/21/19 History 0.5% Cream] Allergies Allergy/AdvReac Type Severity Reaction Status Date / Time No Known Allergies Allergy Verified 02/21/19 20:59 Physical Exam Vitals: Vital Signs Temp Pulse Pulse Resp BP BP Pulse Ox 02/22/19 07:37 97.7 F 117 H 20 106/58 98 02/22/19 03:53 98.8 F 117 H 16 105/69 96 02/22/19 03:52 98.0 F 116 H 20 122/71 99 02/22/19 01:00 114 H 02/21/19 21:24 98.0 F 114 H 18 110/68 98 02/21/19 20:43 112 H 16 118/70 98 02/21/19 19:46 98.0 F 115 H 16 99/60 98 02/21/19 18:45 117 H 28 H 94/64 99 02/21/19 18:40 120 H 11 L 117/67 97 02/21/19 18:30 115 H 18 118/60 96 02/21/19 18:10 118 H 14 118/60 97 02/21/19 17:30 117 H 26 H 106/65 98 02/21/19 17:02 115 H 12 101/58 96 02/21/19 16:50 115 H 20 101/58 97 02/21/19 16:25 99.5 F 115 H 22 99/47 96 Intake and Output 02/21/19 02/22/19 02/22/19 22:59 06:59 14:59 Intake Total 350 Output Total 1220 Balance -870 Intake: Tube Feeding 350 Output: Urine 1200 Uretheral (Bishop) 1200 Stool 20 Other: Voiding Method Indwelling Catheter Weight 114.305 kg 102.058 kg GENERAL DESCRIPTION: An elderly male lying in bed, no distress. No tachypnea or accessory muscle of respiration use. HEENT: Shows Pallor , no scleral icterus. Oral mucous membrane is dry. No pharyngeal erythema or thrush NECK: Trachea central, no thyromegaly. LUNGS: Unlabored breathing. Decreased breath sound at the base. No wheeze or crackle. HEART: S1, S2, regular rate and rhythm. No loud murmur ABDOMEN: Soft, non-healing wound left lower abdominal + to previous colostomy with purulent drainage no tenderness , guarding or rigidity, no organomegaly EXTREMITIES: No edema of feet. SKIN: No rash, no masses palpable. Examination of the sacral area the patient did have a stage IV sacral pressure ulcer with the bones exposed minimal slough tissue wound base was cleaned and cultures were obtained NEUROLOGICAL: The patient is awake, alert, oriented x3, mood and affect normal. Results CBC & Chem 7: 02/21/19 16:56 02/23/19 06:59 Labs: Abnormal Lab Results - Last 24 Hours (Table) 02/21/19 02/21/19 02/21/19 Range/Units 16:56 16:56 16:56 WBC 12.1 H (3.8-10.6) k/uL RBC 4.05 L (4.30-5.90) m/uL Hgb 11.1 L (13.0-17.5) gm/dL Hct 37.4 L (39.0-53.0) % MCHC 29.6 L (31.0-37.0) g/dL RDW 17.0 H (11.5-15.5) % Plt Count 509 H (150-450) k/uL Neutrophils # 9.2 H (1.3-7.7) k/uL Lymphocytes # 0.4 L (1.0-4.8) k/uL Eosinophils # 1.2 H (0-0.7) k/uL Basophils # 0.3 H (0-0.2) k/uL Carbon Dioxide 33 H (22-30) mmol/L BUN 34 H (9-20) mg/dL Glucose 108 H (74-99) mg/dL Plasma Lactic Acid Alexey 2.2 H* (0.7-2.0) mmol/L AST 135 H (17-59) U/L ALT 101 H (21-72) U/L Alkaline Phosphatase 265 H (38-126) U/L Albumin 3.0 L (3.5-5.0) g/dL Urine Protein (Negative) Amorphous Sediment (None) /hpf Urine Bacteria (None) /hpf Urine Mucus (None) /hpf 02/21/19 02/21/19 Range/Units 17:08 20:56 WBC (3.8-10.6) k/uL RBC (4.30-5.90) m/uL Hgb (13.0-17.5) gm/dL Hct (39.0-53.0) % MCHC (31.0-37.0) g/dL RDW (11.5-15.5) % Plt Count (150-450) k/uL Neutrophils # (1.3-7.7) k/uL Lymphocytes # (1.0-4.8) k/uL Eosinophils # (0-0.7) k/uL Basophils # (0-0.2) k/uL Carbon Dioxide (22-30) mmol/L BUN (9-20) mg/dL Glucose (74-99) mg/dL Plasma Lactic Acid Alexey 2.3 H* (0.7-2.0) mmol/L AST (17-59) U/L ALT (21-72) U/L Alkaline Phosphatase (38-126) U/L Albumin (3.5-5.0) g/dL Urine Protein 1+ H (Negative) Amorphous Sediment Rare H (None) /hpf Urine Bacteria Rare H (None) /hpf Urine Mucus Occasional H (None) /hpf Microbiology - Last 24 Hours (Table) 02/21/19 17:00 Gram Stain - Preliminary Buttock Wound Culture - Preliminary 02/21/19 17:00 Gram Stain - Preliminary Abdomen Wound Culture - Preliminary Assessment and Plan Assessment: 1-patient with stage IV sacral pressure ulcer with the bone exposed likely concerning for osteomyelitis and will need to cover for resistant gram-positive as well as gram-negative pathogen in view of the patient's prolonged hospital stay and currently a halfway resident 2-left lower abdominal nonhealing wound site of previous colostomy the purulent drainage concern for underlying fistula or abscess likely from the gram-negative pathogen (1) Sacral osteomyelitis Current Visit: Yes Status: Acute Code(s): M46.28 - OSTEOMYELITIS OF VE RTEBRA, SACRAL AND SACROCOCCYGEAL REGION SNOMED Code(s): 648667388 (2) Stage IV pressure ulcer of sacral region Current Visit: Yes Status: Acute Code(s): L89.154 - PRESSURE ULCER OF SACRAL REGION, STAGE 4 SNOMED Code(s): 063037260 Plan: 1-wound cultures has been obtained both aerobic and anaerobic to guide further antibiotic therapy 2-OR cultures from the abdominal wound as well as sacral wound requested from the surgeon at the time of debridement tomorrow 3-Vancomycin pharmacy to dose target trough of 15 while watching his kidney function and Vanco trough closely 4-cefepime 2 g every 12 hours 5- wet-to-dry dressing to the sacral wound pending debridement afterwards we'll try to apply and wound VAC Son at the bedside questions and concerns were answered in Layman terms We will follow on clinical condition and cultures to further adjust medication if needed Thank you for this consultation will follow this patient with you Time with Patient: Greater than 30
[2019-02-23] MEDS: DRY MOUTH SPRAY 44.3 SPRAY/44.3 ML SPRAY MUCOUS MEM SCH ×3 (09:30→17:26)
[2019-02-23] MEDS: CEFEPIME 2 GM in SODIUM CHLORIDE 0.9% 100 ML IVPB SCH ×2 (10:28→21:03)
[2019-02-23] MEDS: CHLORHEXIDINE GLUCONATE 15 ML CUP MUCOUS MEM SCH ×2 (10:31→21:03)
[2019-02-23] MEDS: CLOTRIMAZOLE 1% CREAM 15 GM TUBE TOPICAL SCH ×2 (10:31→21:06)
[2019-02-23] MEDS: TRIAMCINOLONE ACET 0.5% CREAM 15 GM TUBE TOPICAL SCH ×2 (10:31→21:06)
[2019-02-23] MEDS: NYSTATIN 100,000UNIT/GM CREAM 30 GM TUBE TOPICAL SCH ×2 (10:32→17:15)
[2019-02-23] MEDS: PREGABALIN 75 MG CAP PEG/G-TUBE SCH ×2 (10:32→21:09)
[2019-02-23] MEDS: QUEtiapine 50 MG TAB PEG/G-TUBE SCH ×2 (10:32→21:10)
[2019-02-23] MEDS: PREGABALIN 25 MG CAP PEG/G-TUBE SCH ×2 (10:32→21:09)
[2019-02-23] MEDS: PANTOPRAZOLE 40 MG/10 ML VIAL IV SCH (11:07)
[2019-02-23] MEDS ORDERED: SODIUM CHLORIDE 0.9% 500 ML 500 ML IV ONE (11:16)
--- NOTE | 2019-02-23 13:05 | P.PN ---
Progress Note - Text Progress Note Date: 02/23/19 Patient with tube feeding infusing this morning. OR canceled for today and debridement of abdominal wall rescheduled for tomorrow morning at 0800. Tube feedings may continue today. Tube feedings to be discontinued at midnight.
--- NOTE | 2019-02-23 13:59 | PN ---
PROGRESS NOTE DATE OF SERVICE: 02/23/2019 REASON FOR FOLLOWUP: 1. Abdominal wall abscess. 2. Infected sacral pressure ulcer. INTERVAL HISTORY: The patient is currently afebrile. The patient is breathing comfortably. The patient denies having any chest pain or cough. Has been complaining of some pain to the lower abdominal area unable to quantify any further, Still complains of pain in the low back, but no worsening. No nausea, no vomiting. PHYSICAL EXAMINATION: Blood pressure 152/45 with a pulse of 109, temperature 97.8. He is 94% on 2 L nasal cannula. General description is an elderly male lying in bed in no distress. RESPIRATORY SYSTEM: Unlabored breathing, clear to auscultation anteriorly. HEART: S1, S2. Regular rate and rhythm. ABDOMEN: Soft, no tenderness. No guarding or rigidity. EXTREMITIES: Some trace edema of the feet. LABS: Creatinine 0.59. Sed rate is 68. Lactic acid 1.7. Abdominal culture presumptive MRSA. Sacral culture currently pending. DIAGNOSTIC IMPRESSION AND PLAN: Patient admitted to the hospital with abdominal wall abscess culture with presumptive methicillin-resistant Staphylococcus aureus also with stage IV sacral pressure ulcer. Those cultures currently pending. The patient is covered with cefepime and vancomycin to continue. Waiting surgically primary deep culture. Family at the bedside. Questions answered. MMODL / IJN: [id number] /
[2019-02-23] MEDS: ASPIRIN 81 MG PEG/G-TUBE SCH (17:14)
[2019-02-23] MEDS: MULTIVITAMINS, THERA 1 EACH TAB PEG/G-TUBE SCH (17:14)
[2019-02-23] MEDS: ENOXAPARIN 40 MG/0.4 ML SYRINGE SQ SCH (17:14)
[2019-02-23] MEDS: FERROUS SULFATE 325 MG TAB PO SCH (17:14)
--- NOTE | 2019-02-23 18:50 | P.PN ---
Progress Note - Text Progress Note Date: 02/23/19 Chief Complaint: Fever History of presenting complaint: This is a 82-year-old patient of Dr. Lopez. Patient was in the hospital from September 30 through October 182018. Patient then had presented with acute perforated diverticulitis. Had a sigmoid colectomy, had a drain in place with partial closure of the incision. Also had wound VAC on the lower half of the abdominal wall. Patient being followed by Dr. Woodward from general surgery and Dr. Park from infectious disease. Patient was discharged to [facility]. Patient has couple of times back and forth from [facility] to [facility]. Then was transferred to [facility]. Patient did have a colostomy in the past and had revision that was done at [facility]. Patient currently is a PEG tube for feeding. Patient's chronic stable medical conditions include gout, BPH, chronic low back pain, large sacral decubitus wound which patient had a wound VAC in place. Patient also is a large anterior abdominal wound which she's been healing with secondary intention. Patient does communicate rather briefly. Patient is currently on a pured diet with assistance. Patient had been here and hospital on January 28 and patient was then transferred to [facility] where Dr. Machado team had taken care of him. patient presented here from the [facility]. The clinical picture of sepsis. Has had fever. Sacral wounds are getting worse. Also abdominal stoma has been draining. Dr. Woodward from general surgery was consulted and so was Dr. Park from [place]. Today-negative bed. More awake. A bit more communicative. at the bedside. Patient's had a fistulogram. Dr. Woodward is planning to take the patient to the or tomorrow. Review of systems: Was done for constitutional, cardiovascular, GI, pulmonary. relevant finding as above Active Medications Acetaminophen (Tylenol Tab) 650 mg PO Q6HR PRN PRN Reason: Mild Pain or Fever > 100.5 Acetaminophen (Tylenol Tab) 650 mg PEG/G-TUBE Q4H PRN PRN Reason: Pain Hydrocodone Bitart/Acetaminophen ([place] 10) 1 each PEG/G-TUBE Q4H PRN PRN Reason: Pain Last Admin: 02/23/19 11:07 Dose: 1 each Documented by: Albuterol/Ipratropium (Duoneb 0.5 Mg-3 Mg/3 Ml Soln) 3 ml INHALATION RT-QID [facility] Last Admin: 02/23/19 16:43 Dose: Not Given Documented by: Alprazolam (Xanax) 0.5 mg PEG/G-TUBE Q8H PRN PRN Reason: Anxiety Amlodipine Besylate (Norvasc) 5 mg PEG/G-TUBE HS@2100 [facility] Last Admin: 02/22/19 21:02 Dose: 5 mg Documented by: Artificial Tears (Artificial Tear Drops) 1 drops BOTH EYES TID PRN PRN Reason: DRY EYE Aspirin (Aspirin) 81 mg PEG/G-TUBE DAILY@1700 [facility] Last Admin: 02/23/19 17:14 Dose: 81 mg Documented by: Bisacodyl (Dulcolax) 10 mg RECTAL DAILY PRN PRN Reason: Constipation Chlorhexidine Gluconate (Peridex) 15 ml MUCOUS MEM BID [facility] Last Admin: 02/23/19 10:31 Dose: 15 ml Documented by: Clotrimazole (Lotrimin Cream) 1 applic TOPICAL BID [facility] Last Admin: 02/23/19 10:31 Dose: 1 applic Documented by: Colchicine (Colcrys) 0.6 mg PEG/G-TUBE DAILY PRN PRN Reason: Pain Ezetimibe (Zetia) 10 mg PEG/G-TUBE HS@2100 [facility] Last Admin: 02/22/19 21:48 Dose: 10 mg Documented by: Enoxaparin Sodium (Lovenox) 40 mg SQ DAILY@1700 [facility] Last Admin: 02/23/19 17:14 Dose: 40 mg Documented by: Ferrous Sulfate (Feosol) 325 mg PO DAILY@1700 [facility] Last Admin: 02/23/19 17:14 Dose: 325 mg Documented by: Sodium Chloride (Saline 0.9%) 1,000 mls @ 120 mls/hr IV .Q8H20M [facility] Last Admin: 02/23/19 05:48 Dose: 120 mls/hr Documented by: Cefepime HCl 2 gm/ Sodium (Chloride) 100 mls @ 200 mls/hr IVPB Q12HR [facility] Last Admin: 02/23/19 10:28 Dose: 200 mls/hr Documented by: Vancomycin HCl 1,750 mg/ (Sodium Chloride) 500 mls @ 167 mls/hr IVPB Q12HR@0000,1200 [facility] Last Admin: 02/23/19 12:09 Dose: 167 mls/hr Documented by: Insulin Detemir (Levemir) 2 unit SQ HS@2100 [facility] Last Admin: 02/22/19 21:03 Dose: 2 unit Documented by: Levothyroxine Sodium (Synthroid) 75 mcg PEG/G-TUBE DAILY@0600 [facility] Last Admin: 02/23/19 05:41 Dose: 75 mcg Documented by: Levothyroxine Sodium (Synthroid) 100 mcg PEG/G-TUBE DAILY@0600 [facility] Last Admin: 02/23/19 05:41 Dose: 100 mcg Documented by: Magnesium Hydroxide (Milk Of Magnesia) 2,400 mg PEG/G-TUBE DAILY PRN PRN Reason: Constipation Miscellaneous Information (Vancomycin Trough Due) 0 each MISCELLANE DIRECTED ONE Stop: 02/24/19 11:01 Multivitamins (Theragran) 1 each PEG/G-TUBE DAILY@1700 [facility] Last Admin: 02/23/19 17:14 Dose: 1 each Documented by: Naloxone HCl (Narcan) 0.2 mg IV Q2M PRN PRN Reason: Opioid Reversal Nitroglycerin (Nitrostat) 0.4 mg SUBLINGUAL Q5M PRN PRN Reason: Chest Pain Nystatin (Mycostatin Cream) 1 applic TOPICAL TID [facility] Last Admin: 02/23/19 17:15 Dose: 1 applic Documented by: Ondansetron HCl (Zofran) 4 mg IVP Q8HR PRN PRN Reason: Nausea And Vomiting Ondansetron HCl (Zofran) 4 mg PEG/G-TUBE Q6H PRN PRN Reason: Nausea Pantoprazole Sodium (Protonix) 40 mg IV DAILY [facility] Last Admin: 02/23/19 11:07 Dose: 40 mg Documented by: Pravastatin Sodium (Pravachol) 40 mg PO HS@2100 [facility] Last Admin: 02/22/19 21:11 Dose: 40 mg Documented by: Pregabalin (Lyrica) 25 mg PEG/G-TUBE BID@0800,2100 [facility] Last Admin: 02/23/19 10:32 Dose: 25 mg Documented by: Pregabalin (Lyrica) 75 mg PEG/G-TUBE BID@0800,2100 [facility] Last Admin: 02/23/19 10:32 Dose: 75 mg Documented by: Quetiapine Fumarate (Seroquel) 50 mg PEG/G-TUBE BID@0800,2100 [facility] Last Admin: 02/23/19 10:32 Dose: 50 mg Documented by: Saliva Substitute ([place] Solution) 1 spray MUCOUS MEM TID@0800,1200,1700 [facility] Last Admin: 02/23/19 17:26 Dose: 1 spray Documented by: Tamsulosin HCl (Flomax) 0.4 mg PO HS@2100 [facility] Last Admin: 02/22/19 21:04 Dose: 0.4 mg Documented by: Triamcinolone Acetonide (Kenalog 0.5% Cream) 1 applic TOPICAL BID [facility] Last Admin: 02/23/19 10:31 Dose: 1 applic Documented by: Zolpidem Tartrate (Ambien) 5 mg PEG/G-TUBE HS PRN PRN Reason: Insomnia Last Admin: 02/21/19 22:23 Dose: 5 mg Documented by: Physical examination: VITAL SIGNS: 97.8, 109, 19, 152/45, 94% on 2 L GENERAL: Laying in bed, more awake today. Posterior tired appearing EYES: Pupils equal. Conjunctiva pale HEENT: External appearance of nose and ears normal, oral cavity dry. NECK: JVD unable to assess; masses not palpable. HEART: Heart sounds irregular , no edema. LUNGS: Respiratory rate increased; decreased breath sounds. ABDOMEN: Soft, some abdominal tenderness, no guarding no rigidity, liver spleen not palpable, no masses palpable, bowel sounds present. Colostomy bag on the right side. Feeding tube . abdominal wall stoma on the left side, but purulent drainage LYMPHATICS: No lymph nodes palpable in the axilla and neck. PSYCH: Able to answer simple questions NEUROLOGICAL: Cranial nerves grossly intact; no facial asymmetry, decreased both lower extremities, supportive boots in place DERMATOLOGICAL:: Large sacral wound stage IV, pictures in the chart Investigations reviewed in the clinical context Creatinine 0.59 C-reactive protein 87 Wound culture, from abdomen and buttocks-growing MRSA Previous testing White count 12.1 hemoglobin 11.1 L 50 Potassium 5.1 crit 0.7 lactic acid 2.2 AST 135 ALT 101 albumin 3 EKG tracing personally reviewed by me-sinus tachycardia, rate protocol block Chest x-ray film personally reviewed by me-showing underpenetration Fistulogram-contrast came back up at the abdomen Assessment: -Acute on chronic abdominal incision wound, stoma with purulent drainage, with a septic picture, POA -Sepsis with multiple source of infection including large decubitus sacral wound and abdominal wound that is draining -History of atrial flutter, -Coronary artery disease with prior history of stent and bypass -Sigmoid colectomy with a resultant colostomy -Hyperlipidemia -Essential hypertension -Primary osteoarthritis -BPH -Hypothyroidism -Chronic gout -PTSD -PEG tube feeding -Large stage IV sacral decubitus ulcer infected appearing -Normocytic anemia of chronic disease -Patient's is the deep POA, and the elder son is also the agent for medical D POA for the Plan: Patient is on IV vancomycin and IV cefepime. Patient is going to the OR tomorrow. Repeat labs in the morning.. Cultures are growing MRSA. Care was discussed with the at the bedside.
[2019-02-23] MEDS: amLODIPine 5 MG TAB PEG/G-TUBE SCH (21:06)
[2019-02-23] MEDS: EZETIMIBE 10 MG TAB PEG/G-TUBE SCH (21:09)
[2019-02-23] MEDS: PRAVASTATIN SODIUM 40 MG TAB PO SCH (21:09)
[2019-02-23 21:31] LABS: Glucose,Whole Blood 121 mg/dL (75-99)
[2019-02-23] MEDS: TAMSULOSIN 0.4 MG CAP.ER.24H PO SCH (22:53)
[2019-02-23] MEDS: INSULIN DETEMIR (LEVEMIR) 100 UNIT/ML SYR SQ SCH (22:55)
[2019-02-24] MEDS: VANCOMYCIN 1,750 MG in SODIUM CHLORIDE 0.9% 500 ML 500 ML IVPB SCH (00:26)
[2019-02-24] MEDS: NYSTATIN 100,000UNIT/GM CREAM 30 GM TUBE TOPICAL SCH ×4 (00:35→21:45)
[2019-02-24] MEDS: LEVOTHYROXINE 75 MCG TAB PEG/G-TUBE SCH (06:14)
[2019-02-24] MEDS: LEVOTHYROXINE 100 MCG TAB PEG/G-TUBE SCH (06:14)
[2019-02-24 07:42] LABS: Anisocytosis Slight; HCT 36.5 % (39.0-53.0); HGB 10.6 gm/dL (13.0-17.5); Hypochromasia Marked; MCH 26.7 pg (25.0-35.0); MCV 92.2 fL (80.0-100.0); Mean Platelet Volume 6.4; Platelet Count 471 k/uL (150-450); RBC 3.96 m/uL (4.30-5.90); RDW 17.2 % (11.5-15.5); WBC 8.9 k/uL (3.8-10.6)
[2019-02-24 08:04] LABS: African American GFR (CKD) >90 (>60 ml/min/1.73 sqM); Anion Gap 9 mmol/L; Blood Urea Nitrogen 12 mg/dL (9-20); Calcium 8.4 mg/dL (8.4-10.2); Carbon Dioxide 22 mmol/L (22-30); Chloride 110 mmol/L (98-107); Glucose 85 mg/dL (74-99); Non-African American GFR(CKD) >90 (>60 ml/min/1.73 sqM); Sodium 141 mmol/L (137-145)
[2019-02-24] MEDS ORDERED: PROPOFOL 10 MG/ML 20 ML VIAL IV ONE (08:05)
[2019-02-24] MEDS ORDERED: fentaNYL (PF) 50 MCG/ML 2 ML AMP ONE (08:05)
[2019-02-24] MEDS ORDERED: LIDOCAINE 1% INJ 10MG/ML (20 ML MDV) ONE (08:05)
[2019-02-24] MEDS ORDERED: SUCCINYLCHOLINE CHLORIDE 100 MG/5 ML SYR IV ONE (08:05)
[2019-02-24] MEDS ORDERED: LACTATED RINGERS 1,000 ML IV ONE (08:05)
[2019-02-24 08:12] LABS: Potassium 3.6 mmol/L (3.5-5.1)
--- NOTE | 2019-02-24 09:12 | P.OP ---
Date of Procedure: 02/24/19 Preoperative Diagnosis: Chronic wound Postoperative Diagnosis: Chronic wound related to colostomy site Procedure(s) Performed: Debridement of wound Anesthesia: ALVINO Surgeon: Rony Woodward Estimated Blood Loss (ml): 5 Pathology: other (Tissue culture) Condition: stable Description of Procedure: The patient was placed on the operating table in the supine position. He received general anesthesia. His abdomen was prepped and draped usual sterile fashion. The patient's wound was at his previously colostomy site. Using left cautery the wound was opened and then the subcutaneous tissue divided. There appeared to be a small opening of the colostomy at the fascial edge. The colostomy had completely retracted to the fascial level. The skin and fat were debrided sharply. The wound was then packed with wet-to-dry dressing. Patient tolerated procedure well was sent back to recovery room in stable condition.
[2019-02-24] MEDS: IPRATROPIUM-ALBUTEROL 3 ML NEB INHALATION SCH ×4 (09:13→20:01)
[2019-02-24] MEDS: PREGABALIN 75 MG CAP PEG/G-TUBE SCH ×2 (10:09→21:42)
[2019-02-24] MEDS: DRY MOUTH SPRAY 44.3 SPRAY/44.3 ML SPRAY MUCOUS MEM SCH ×3 (10:09→16:39)
[2019-02-24] MEDS: PREGABALIN 25 MG CAP PEG/G-TUBE SCH ×2 (10:09→21:42)
[2019-02-24] MEDS: CHLORHEXIDINE GLUCONATE 15 ML CUP MUCOUS MEM SCH ×2 (10:10→21:43)
[2019-02-24] MEDS: QUEtiapine 50 MG TAB PEG/G-TUBE SCH ×2 (10:10→21:44)
[2019-02-24] MEDS: CEFEPIME 2 GM in SODIUM CHLORIDE 0.9% 100 ML IVPB SCH ×2 (10:10→21:43)
[2019-02-24] MEDS: CLOTRIMAZOLE 1% CREAM 15 GM TUBE TOPICAL SCH ×2 (10:12→21:44)
[2019-02-24] MEDS: TRIAMCINOLONE ACET 0.5% CREAM 15 GM TUBE TOPICAL SCH ×2 (10:12→21:44)
[2019-02-24] MEDS: PANTOPRAZOLE 40 MG/10 ML VIAL IV SCH (10:12)
[2019-02-24] MEDS: SODIUM CHLORIDE 0.9% 1,000 ML IV SCH ×2 (10:14→12:47)
[2019-02-24] MEDS ORDERED: VANCOMYCIN TROUGH DUE 1 EACH MISC MISCELLANE ONE (11:00)
[2019-02-24] MEDS ORDERED: VANCOMYCIN IV PER PHARMACY 1 EACH MISC MISCELLANE PRN (12:08)
[2019-02-24] MEDS: ALPRAZolam 0.5 MG TAB PEG/G-TUBE PRN (13:29)
[2019-02-24] MEDS: HYDROcodone/APAP 10-325MG 1 EACH TAB PEG/G-TUBE PRN ×3 (13:35→21:42)
[2019-02-24] MEDS ORDERED: FERROUS SULFATE ORAL ELIXIR 300 MG/5 ML CUP NG-TUBE SCH (16:19)
[2019-02-24] MEDS ORDERED: FERROUS SULFATE ORAL ELIXIR 300 MG/5 ML CUP PO SCH (16:19)
[2019-02-24] MEDS: ASPIRIN 81 MG PEG/G-TUBE SCH (16:38)
[2019-02-24] MEDS: ENOXAPARIN 40 MG/0.4 ML SYRINGE SQ SCH (16:38)
[2019-02-24] MEDS: METOPROLOL TARTRATE 25 MG TAB PEG/G-TUBE SCH ×2 (16:38→21:42)
[2019-02-24] MEDS: MULTIVITAMINS, THERA 1 EACH TAB PEG/G-TUBE SCH (16:38)
[2019-02-24] MEDS: FERROUS SULFATE ORAL ELIXIR 300 MG/5 ML CUP PEG/G-TUBE SCH (17:06)
[2019-02-24 20:56] LABS: Glucose,Whole Blood 128 mg/dL (75-99)
[2019-02-24] MEDS: amLODIPine 5 MG TAB PEG/G-TUBE SCH (21:42)
[2019-02-24] MEDS: TAMSULOSIN 0.4 MG CAP.ER.24H PO SCH ×2 (21:42→21:51)
[2019-02-24] MEDS: PRAVASTATIN SODIUM 40 MG TAB PO SCH (21:43)
[2019-02-24] MEDS: EZETIMIBE 10 MG TAB PEG/G-TUBE SCH (21:45)
[2019-02-24] MEDS: INSULIN DETEMIR (LEVEMIR) 100 UNIT/ML SYR SQ SCH (21:47)
--- NOTE | 2019-02-24 23:21 | P.PN ---
Progress Note - Text Progress Note Date: 02/24/19 Chief Complaint: Fever History of presenting complaint: This is a 82-year-old patient of Dr. Lopez. Patient was in the hospital from September 30 through October 182018. Patient then had presented with acute perforated diverticulitis. Had a sigmoid colectomy, had a drain in place with partial closure of the incision. Also had wound VAC on the lower half of the abdominal wall. Patient being followed by Dr. Woodward from general surgery and Dr. Park from infectious disease. Patient was discharged to [facility]. Patient has couple of times back and forth from [facility] to [facility]. Then was transferred to [facility]. Patient did have a colostomy in the past and had revision that was done at [facility]. Patient currently is a PEG tube for feeding. Patient's chronic stable medical conditions include gout, BPH, chronic low back pain, large sacral decubitus wound which patient had a wound VAC in place. Patient also is a large anterior abdominal wound which she's been healing with secondary intention. Patient does communicate rather briefly. Patient is currently on a pured diet with assistance. Patient had been here and hospital on January 28 and patient was then transferred to [facility] where Dr. Machado team had taken care of him. patient presented here from the [facility]. The clinical picture of sepsis. Has had fever. Sacral wounds are getting worse. Also abdominal stoma has been draining. Dr. Woodward from general surgery was consulted and so was Dr. Park from ID. Today-patient was only taken to the operating room. Patient's stoma wound was cleaned out. There was no deeper communication. Spoke to the nurse. Patient to be resumed on pured diet if okay with Dr. Woodward. Review of systems: Was done for constitutional, cardiovascular, GI, pulmonary. relevant finding as above Active Medications Acetaminophen (Tylenol Tab) 650 mg PO Q6HR PRN PRN Reason: Mild Pain or Fever > 100.5 Acetaminophen (Tylenol Tab) 650 mg PEG/G-TUBE Q4H PRN PRN Reason: Pain Hydrocodone Bitart/Acetaminophen ([place] 10) 1 each PEG/G-TUBE Q4H PRN PRN Reason: Pain Last Admin: 02/24/19 21:42 Dose: 1 each Documented by: Albuterol/Ipratropium (Duoneb 0.5 Mg-3 Mg/3 Ml Soln) 3 ml INHALATION RT-QID [facility] Last Admin: 02/24/19 20:01 Dose: 3 ml Documented by: Alprazolam (Xanax) 0.5 mg PEG/G-TUBE Q8H PRN PRN Reason: Anxiety Last Admin: 02/24/19 13:29 Dose: 0.5 mg Documented by: Amlodipine Besylate (Norvasc) 5 mg PEG/G-TUBE HS@2100 [facility] Last Admin: 02/24/19 21:42 Dose: 5 mg Documented by: Artificial Tears (Artificial Tear Drops) 1 drops BOTH EYES TID PRN PRN Reason: DRY EYE Aspirin (Aspirin) 81 mg PEG/G-TUBE DAILY@1700 [facility] Last Admin: 02/24/19 16:38 Dose: 81 mg Documented by: Bisacodyl (Dulcolax) 10 mg RECTAL DAILY PRN PRN Reason: Constipation Chlorhexidine Gluconate (Peridex) 15 ml MUCOUS MEM BID [facility] Last Admin: 02/24/19 21:43 Dose: 15 ml Documented by: Clotrimazole (Lotrimin Cream) 1 applic TOPICAL BID [facility] Last Admin: 02/24/19 21:44 Dose: 1 applic Documented by: Colchicine (Colcrys) 0.6 mg PEG/G-TUBE DAILY PRN PRN Reason: Pain Ezetimibe (Zetia) 10 mg PEG/G-TUBE HS@2100 [facility] Last Admin: 02/24/19 21:45 Dose: 10 mg Documented by: Enoxaparin Sodium (Lovenox) 40 mg SQ DAILY@1700 [facility] Last Admin: 02/24/19 16:38 Dose: 40 mg Documented by: Ferrous Sulfate (Feosol) 300 mg PEG/G-TUBE DAILY@1700 [facility] Last Admin: 02/24/19 17:06 Dose: 300 mg Documented by: Sodium Chloride (Saline 0.9%) 1,000 mls @ 120 mls/hr IV .Q8H20M [facility] Last Admin: 02/24/19 12:47 Dose: Not Given Documented by: Cefepime HCl 2 gm/ Sodium (Chloride) 100 mls @ 200 mls/hr IVPB Q12HR [facility] Last Admin: 02/24/19 21:43 Dose: 200 mls/hr Documented by: Insulin Detemir (Levemir) 2 unit SQ HS@2100 [facility] Last Admin: 02/24/19 21:47 Dose: 2 unit Documented by: Levothyroxine Sodium (Synthroid) 75 mcg PEG/G-TUBE DAILY@0600 [facility] Last Admin: 02/24/19 06:14 Dose: 75 mcg Documented by: Levothyroxine Sodium (Synthroid) 100 mcg PEG/G-TUBE DAILY@0600 [facility] Last Admin: 02/24/19 06:14 Dose: 100 mcg Documented by: Magnesium Hydroxide (Milk Of Magnesia) 2,400 mg PEG/G-TUBE DAILY PRN PRN Reason: Constipation Metoprolol Tartrate (Lopressor) 25 mg PEG/G-TUBE BID@0800,2099 [facility] Last Admin: 02/24/19 21:42 Dose: 25 mg Documented by: Miscellaneous Information (Pharmacy To Dose Iv Vancomycin) 1 each MISCELLANE DIRECTED PRN PRN Reason: BY LEVELS Multivitamins (Theragran) 1 each PEG/G-TUBE DAILY@1700 [facility] Last Admin: 02/24/19 16:38 Dose: 1 each Documented by: Naloxone HCl (Narcan) 0.2 mg IV Q2M PRN PRN Reason: Opioid Reversal Nitroglycerin (Nitrostat) 0.4 mg SUBLINGUAL Q5M PRN PRN Reason: Chest Pain Nystatin (Mycostatin Cream) 1 applic TOPICAL TID [facility] Last Admin: 02/24/19 21:45 Dose: 1 applic Documented by: Ondansetron HCl (Zofran) 4 mg IVP Q8HR PRN PRN Reason: Nausea And Vomiting Ondansetron HCl (Zofran) 4 mg PEG/G-TUBE Q6H PRN PRN Reason: Nausea Pantoprazole Sodium (Protonix) 40 mg IV DAILY [facility] Last Admin: 02/24/19 10:12 Dose: 40 mg Documented by: Pravastatin Sodium (Pravachol) 40 mg PO HS@2099 [facility] Last Admin: 02/24/19 21:43 Dose: 40 mg Documented by: Pregabalin (Lyrica) 25 mg PEG/G-TUBE BID@0800,2100 [facility] Last Admin: 02/24/19 21:42 Dose: 25 mg Documented by: Pregabalin (Lyrica) 75 mg PEG/G-TUBE BID@0800,2100 [facility] Last Admin: 02/24/19 21:42 Dose: 75 mg Documented by: Quetiapine Fumarate (Seroquel) 50 mg PEG/G-TUBE BID@0800,2099 [facility] Last Admin: 02/24/19 21:44 Dose: 50 mg Documented by: Saliva Substitute (Mouthkote Solution) 1 spray MUCOUS MEM TID@0800,1200,1700 [facility] Last Admin: 02/24/19 16:39 Dose: 1 spray Documented by: Tamsulosin HCl (Flomax) 0.4 mg PO HS@2099 [facility] Last Admin: 02/24/19 21:51 Dose: Not Given Documented by: Triamcinolone Acetonide (Kenalog 0.5% Cream) 1 applic TOPICAL BID [facility] Last Admin: 02/24/19 21:44 Dose: 1 applic Documented by: Zolpidem Tartrate (Ambien) 5 mg PEG/G-TUBE HS PRN PRN Reason: Insomnia Last Admin: 02/21/19 22:23 Dose: 5 mg Documented by: Physical examination: VITAL SIGNS: 98.5, 112, 16, 119 was 61, 91% GENERAL: Laying in bed, awake, answering questions EYES: Pupils equal. Conjunctiva pale HEENT: External appearance of nose and ears normal, oral cavity dry. NECK: JVD unable to assess; masses not palpable. HEART: Heart sounds irregular , no edema. LUNGS: Respiratory rate increased; decreased breath sounds. ABDOMEN: Soft, some abdominal tenderness, no guarding no rigidity, liver spleen not palpable, no masses palpable, bowel sounds present. Colostomy bag on the right side. Feeding tube . abdominal wall stoma on the left side, but purulent drainage LYMPHATICS: No lymph nodes palpable in the axilla and neck. PSYCH: Able to answer simple questions NEUROLOGICAL: Cranial nerves grossly intact; no facial asymmetry, decreased both lower extremities, supportive boots in place DERMATOLOGICAL:: Large sacral wound stage IV, pictures in the chart Investigations reviewed in the clinical context White count 8.9 hemoglobin 10.6 platelets 471 potassium 3.6 creatinine 0.5 to Previous testing White count 12.1 hemoglobin 11.1 L 50 Potassium 5.1 crit 0.7 lactic acid 2.2 AST 135 ALT 101 albumin 3 EKG tracing personally reviewed by me-sinus tachycardia, rate protocol block Chest x-ray film personally reviewed by me-showing underpenetration Fistulogram-contrast came back up at the abdomen C-reactive protein 87 Wound culture, from abdomen and buttocks-growing MRSA Assessment: -Acute on chronic abdominal incision wound, stoma at the site of previous colostomy, with no deeper communication. -Sepsis with multiple source of infection including large decubitus sacral wound and abdominal wound that is draining -History of atrial flutter, -Coronary artery disease with prior history of stent and bypass -Sigmoid colectomy with a resultant colostomy -Hyperlipidemia -Essential hypertension -Primary osteoarthritis -BPH -Hypothyroidism -Chronic gout -PTSD -PEG tube feeding -Large stage IV sacral decubitus ulcer infected appearing -Normocytic anemia of chronic disease -Patient's is the DPOA, and the elder son is also the agent for medical advocate for the Plan: Spoke with nurse. If okay. with Dr. Woodward to be advanced to a pured supervise diet. Other medication treatment plan to continue. Include IV cefepime. Wound care to continue.
[2019-02-25] MEDS: SODIUM CHLORIDE 0.9% 1,000 ML IV SCH ×3 (01:25→16:13)
[2019-02-25] MEDS: LEVOTHYROXINE 75 MCG TAB PEG/G-TUBE SCH (05:38)
[2019-02-25] MEDS: LEVOTHYROXINE 100 MCG TAB PEG/G-TUBE SCH (05:38)
[2019-02-25] MEDS: ALPRAZolam 0.5 MG TAB PEG/G-TUBE PRN (05:38)
[2019-02-25] MEDS: HYDROcodone/APAP 10-325MG 1 EACH TAB PEG/G-TUBE PRN ×2 (05:38→10:09)
[2019-02-25] MEDS: VANCOMYCIN 1,750 MG in SODIUM CHLORIDE 0.9% 500 ML 500 ML IVPB SCH ×2 (05:55→16:44)
[2019-02-25 06:56] LABS: Glucose,Whole Blood 104 mg/dL (75-99)
[2019-02-25] MEDS: IPRATROPIUM-ALBUTEROL 3 ML NEB INHALATION SCH ×4 (07:46→19:32)
[2019-02-25 07:58] LABS: African American GFR (CKD) >90 (>60 ml/min/1.73 sqM); Anion Gap 5 mmol/L; Blood Urea Nitrogen 11 mg/dL (9-20); Calcium 8.2 mg/dL (8.4-10.2); Carbon Dioxide 24 mmol/L (22-30); Chloride 111 mmol/L (98-107); Glucose 104 mg/dL (74-99); Non-African American GFR(CKD) >90 (>60 ml/min/1.73 sqM); Potassium 3.4 mmol/L (3.5-5.1); Sodium 140 mmol/L (137-145)
[2019-02-25] MEDS: DRY MOUTH SPRAY 44.3 SPRAY/44.3 ML SPRAY MUCOUS MEM SCH ×3 (09:35→16:14)
[2019-02-25] MEDS: CHLORHEXIDINE GLUCONATE 15 ML CUP MUCOUS MEM SCH ×2 (09:35→21:53)
[2019-02-25] MEDS: PREGABALIN 75 MG CAP PEG/G-TUBE SCH ×2 (09:38→21:53)
[2019-02-25] MEDS: PREGABALIN 25 MG CAP PEG/G-TUBE SCH ×2 (09:38→21:53)
[2019-02-25] MEDS: CLOTRIMAZOLE 1% CREAM 15 GM TUBE TOPICAL SCH ×2 (09:38→21:54)
[2019-02-25] MEDS: QUEtiapine 50 MG TAB PEG/G-TUBE SCH ×2 (09:39→21:53)
[2019-02-25] MEDS: PANTOPRAZOLE 40 MG/10 ML VIAL IV SCH (09:45)
[2019-02-25] MEDS: TRIAMCINOLONE ACET 0.5% CREAM 15 GM TUBE TOPICAL SCH ×2 (09:46→21:54)
[2019-02-25] MEDS: NYSTATIN 100,000UNIT/GM CREAM 30 GM TUBE TOPICAL SCH ×3 (09:46→21:54)
--- NOTE | 2019-02-25 10:04 | P.PN ---
Progress Note - Text Progress Note Date: 02/25/19 The patient is resting comfortably in his bed. His colostomy site wound is stable. There is some minimal serosanguineous drainage. His abdomen soft. Status post debridement of colostomy site with complete retraction of colostomy to the fascial layer. Patient continue local wound care.
[2019-02-25] MEDS: CEFEPIME 2 GM in SODIUM CHLORIDE 0.9% 100 ML IVPB SCH ×2 (10:31→21:53)
[2019-02-25 11:45] LABS: Glucose,Whole Blood 89 mg/dL (75-99)
--- NOTE | 2019-02-25 16:04 | P.PN ---
Progress Note - Text Progress Note Date: 02/25/19 Chief Complaint: Fever History of presenting complaint: This is a 82-year-old patient of Dr. Lopez. Patient was in the hospital from September 30 through October 182018. Patient then had presented with acute perforated diverticulitis. Had a sigmoid colectomy, had a drain in place with partial closure of the incision. Also had wound VAC on the lower half of the abdominal wall. Patient being followed by Dr. Woodward from general surgery and Dr. Park from infectious disease. Patient was discharged to [facility]. Patient has couple of times back and forth from [facility] special[facility] to [facility]. Then was transferred to [facility]. Patient did have a colostomy in the past and had revision that was done at [facility]. Patient currently is a PEG tube for feeding. Patient's chronic stable medical conditions include gout, BPH, chronic low back pain, large sacral decubitus wound which patient had a wound VAC in place. Patient also is a large anterior abdominal wound which she's been healing with secondary intention. Patient does communicate rather briefly. Patient is currently on a pured diet with assistance. Patient had been here and hospital on January 28 and patient was then transferred to [facility] where Dr. Machado team had taken care of him. patient presented here from the [facility]. The clinical picture of sepsis. Has had fever. Sacral wounds are getting worse. Also abdominal stoma has been draining. Dr. Woodward from general surgery was consulted and so was Dr. Park from [place]. -patient was only taken to the operating room. Patient's stoma wound was cleaned out. There was no deeper communication. Today -. PEG tube feeding in place. On IV cefepime. Otherwise patient comfortable. Review of systems: Was done for constitutional, cardiovascular, GI, pulmonary. relevant finding as above Active Medications Acetaminophen (Tylenol Tab) 650 mg PO Q6HR PRN PRN Reason: Mild Pain or Fever > 100.5 Acetaminophen (Tylenol Tab) 650 mg PEG/G-TUBE Q4H PRN PRN Reason: Pain Hydrocodone Bitart/Acetaminophen ([place] 10) 1 each PEG/G-TUBE Q4H PRN PRN Reason: Pain Last Admin: 02/25/19 10:09 Dose: 1 each Documented by: Albuterol/Ipratropium (Duoneb 0.5 Mg-3 Mg/3 Ml Soln) 3 ml INHALATION RT-QID [facility] Last Admin: 02/25/19 15:36 Dose: 3 ml Documented by: Alprazolam (Xanax) 0.5 mg PEG/G-TUBE Q8H PRN PRN Reason: Anxiety Last Admin: 02/25/19 05:38 Dose: 0.5 mg Documented by: Amlodipine Besylate (Norvasc) 5 mg PEG/G-TUBE HS@2100 [facility] Last Admin: 02/24/19 21:42 Dose: 5 mg Documented by: Artificial Tears (Artificial Tear Drops) 1 drops BOTH EYES TID PRN PRN Reason: DRY EYE Aspirin (Aspirin) 81 mg PEG/G-TUBE DAILY@1700 [facility] Last Admin: 02/24/19 16:38 Dose: 81 mg Documented by: Bisacodyl (Dulcolax) 10 mg RECTAL DAILY PRN PRN Reason: Constipation Chlorhexidine Gluconate (Peridex) 15 ml MUCOUS MEM BID [facility] Last Admin: 02/25/19 09:35 Dose: 15 ml Documented by: Clotrimazole (Lotrimin Cream) 1 applic TOPICAL BID [facility] Last Admin: 02/25/19 09:38 Dose: 1 applic Documented by: Colchicine (Colcrys) 0.6 mg PEG/G-TUBE DAILY PRN PRN Reason: Pain Ezetimibe (Zetia) 10 mg PEG/G-TUBE HS@2100 [facility] Last Admin: 02/24/19 21:45 Dose: 10 mg Documented by: Enoxaparin Sodium (Lovenox) 40 mg SQ DAILY@0 [facility] Last Admin: 02/24/19 16:38 Dose: 40 mg Documented by: Ferrous Sulfate (Feosol) 300 mg PEG/G-TUBE DAILY@1700 [facility] Last Admin: 02/24/19 17:06 Dose: 300 mg Documented by: Sodium Chloride (Saline 0.9%) 1,000 mls @ 120 mls/hr IV .Q8H20M [facility] Last Admin: 02/25/19 09:33 Dose: 120 mls/hr Documented by: Cefepime HCl 2 gm/ Sodium (Chloride) 100 mls @ 200 mls/hr IVPB Q12HR [facility] Last Admin: 02/25/19 10:31 Dose: 200 mls/hr Documented by: Vancomycin HCl 1,750 mg/ (Sodium Chloride) 500 mls @ 167 mls/hr IVPB Q12H [facility] Last Admin: 02/25/19 05:55 Dose: 167 mls/hr Documented by: Insulin Detemir (Levemir) 2 unit SQ HS@2100 [facility] Last Admin: 02/24/19 21:47 Dose: 2 unit Documented by: Levothyroxine Sodium (Synthroid) 75 mcg PEG/G-TUBE DAILY@0600 [facility] Last Admin: 02/25/19 05:38 Dose: 75 mcg Documented by: Levothyroxine Sodium (Synthroid) 100 mcg PEG/G-TUBE DAILY@0600 [facility] Last Admin: 02/25/19 05:38 Dose: 100 mcg Documented by: Magnesium Hydroxide (Milk Of Magnesia) 2,400 mg PEG/G-TUBE DAILY PRN PRN Reason: Constipation Metoprolol Tartrate (Lopressor) 25 mg PEG/G-TUBE BID@0800,2100 [facility] Last Admin: 02/24/19 21:42 Dose: 25 mg Documented by: Miscellaneous Information (Pharmacy To Dose Iv Vancomycin) 1 each MISCELLANE DIRECTED PRN PRN Reason: BY LEVELS Multivitamins (Theragran) 1 each PEG/G-TUBE DAILY@1700 [facility] Last Admin: 02/24/19 16:38 Dose: 1 each Documented by: Naloxone HCl (Narcan) 0.2 mg IV Q2M PRN PRN Reason: Opioid Reversal Nitroglycerin (Nitrostat) 0.4 mg SUBLINGUAL Q5M PRN PRN Reason: Chest Pain Nystatin (Mycostatin Cream) 1 applic TOPICAL TID [facility] Last Admin: 02/25/19 09:46 Dose: 1 applic Documented by: Ondansetron HCl (Zofran) 4 mg IVP Q8HR PRN PRN Reason: Nausea And Vomiting Ondansetron HCl (Zofran) 4 mg PEG/G-TUBE Q6H PRN PRN Reason: Nausea Pantoprazole Sodium (Protonix) 40 mg IV DAILY [facility] Last Admin: 02/25/19 09:45 Dose: Not Given Documented by: Pravastatin Sodium (Pravachol) 40 mg PO HS@2100 [facility] Last Admin: 02/24/19 21:43 Dose: 40 mg Documented by: Pregabalin (Lyrica) 25 mg PEG/G-TUBE BID@0800,2100 [facility] Last Admin: 02/25/19 09:38 Dose: 25 mg Documented by: Pregabalin (Lyrica) 75 mg PEG/G-TUBE BID@0800,2100 [facility] Last Admin: 02/25/19 09:38 Dose: 75 mg Documented by: Quetiapine Fumarate (Seroquel) 50 mg PEG/G-TUBE BID@0800,2100 [facility] Last Admin: 02/25/19 09:39 Dose: 50 mg Documented by: Saliva Substitute (Mouthkote Solution) 1 spray MUCOUS MEM TID@0800,1200,1700 [facility] Last Admin: 02/25/19 12:09 Dose: Not Given Documented by: Tamsulosin HCl (Flomax) 0.4 mg PO HS@2100 [facility] Last Admin: 02/24/19 21:51 Dose: Not Given Documented by: Triamcinolone Acetonide (Kenalog 0.5% Cream) 1 applic TOPICAL BID [facility] Last Admin: 02/25/19 09:46 Dose: 1 applic Documented by: Zolpidem Tartrate (Ambien) 5 mg PEG/G-TUBE HS PRN PRN Reason: Insomnia Last Admin: 02/21/19 22:23 Dose: 5 mg Documented by: Physical examination: VITAL SIGNS: 98.8, 97, 12, 121/62, 92% room air GENERAL: Laying in bed, awake, answering questions EYES: Pupils equal. Conjunctiva pale HEENT: External appearance of nose and ears normal, oral cavity dry. NECK: JVD unable to assess; masses not palpable. HEART: Heart sounds irregular , no edema. LUNGS: Respiratory rate increased; decreased breath sounds. ABDOMEN: Soft, some abdominal tenderness, no guarding no rigidity, liver spleen not palpable, no masses palpable, bowel sounds present. Colostomy bag on the right side. Feeding tube . abdominal wall stoma on the left side, but purulent drainage LYMPHATICS: No lymph nodes palpable in the axilla and neck. PSYCH: Able to answer simple questions NEUROLOGICAL: Cranial nerves grossly intact; no facial asymmetry, decreased both lower extremities, supportive boots in place DERMATOLOGICAL:: Large sacral wound stage IV, pictures in the chart Investigations reviewed in the clinical context Potassium 3.4 creatinine 0.55 Previous testing White count 12.1 hemoglobin 11.1 L 50 Potassium 5.1 crit 0.7 lactic acid 2.2 AST 135 ALT 101 albumin 3 EKG tracing personally reviewed by me-sinus tachycardia, rate protocol block Chest x-ray film personally reviewed by me-showing underpenetration Fistulogram-contrast came back up at the abdomen C-reactive protein 87 Wound culture, from abdomen and buttocks-growing MRSA Assessment: -Acute on chronic abdominal stoma wound at the site of previous colostomy, with no deeper communication. -Sepsis with multiple source of infection including large decubitus sacral wound and abdominal wound that is draining, improved -History of atrial flutter, -Coronary artery disease with prior history of stent and bypass -Sigmoid colectomy with a resultant colostomy -Hyperlipidemia -Essential hypertension -Primary osteoarthritis -BPH -Hypothyroidism -Chronic gout -PTSD -PEG tube feeding -Large stage IV sacral decubitus ulcer infected appearing -Normocytic anemia of chronic disease -Patient's is the DPOA, and the elder son is also the agent for medical advocate for the Plan: Continue with antibiotics. Diet to be resumed when okay with Dr. Woodward.
[2019-02-25] MEDS: FERROUS SULFATE ORAL ELIXIR 300 MG/5 ML CUP PEG/G-TUBE SCH (16:35)
[2019-02-25] MEDS: ASPIRIN 81 MG PEG/G-TUBE SCH (16:35)
[2019-02-25] MEDS: MULTIVITAMINS, THERA 1 EACH TAB PEG/G-TUBE SCH (16:35)
[2019-02-25] MEDS: ENOXAPARIN 40 MG/0.4 ML SYRINGE SQ SCH (16:36)
[2019-02-25 17:01] LABS: Glucose,Whole Blood 125 mg/dL (75-99)
--- NOTE | 2019-02-25 18:40 | CT ---
EXAMINATION TYPE: CT brain wo con DATE OF EXAM: 02/25/2019 COMPARISON: None HISTORY: Mental status changes CT DLP: 1158.4 mGycm Automated exposure control for dose reduction was used. FINDINGS: There is cerebral cortical atrophy. There is no mass effect nor midline shift. There is no sign of in tracranial hemorrhage. The calvarium is intact. IMPRESSION: CEREBRAL ATROPHY. NO ACUTE INTRACRANIAL ABNORMALITY.
[2019-02-25] MEDS: amLODIPine 5 MG TAB PEG/G-TUBE SCH (21:53)
[2019-02-25] MEDS: EZETIMIBE 10 MG TAB PEG/G-TUBE SCH (21:53)
[2019-02-25] MEDS: METOPROLOL TARTRATE 25 MG TAB PEG/G-TUBE SCH (21:53)
[2019-02-25] MEDS: INSULIN DETEMIR (LEVEMIR) 100 UNIT/ML SYR SQ SCH (21:54)
[2019-02-25] MEDS: TAMSULOSIN 0.4 MG CAP.ER.24H PO SCH (21:54)
[2019-02-25 22:46] LABS: Glucose,Whole Blood 136 mg/dL (75-99)
[2019-02-26] MEDS: metroNIDAZOLE-NS PMX 500 MG in SALINE 1 100ML.BAG IVPB SCH ×3 (01:30→15:07)
[2019-02-26] MEDS: HYDROcodone/APAP 10-325MG 1 EACH TAB PEG/G-TUBE PRN (03:05)
[2019-02-26] MEDS: SODIUM CHLORIDE 0.9% 1,000 ML IV SCH ×3 (04:29→17:12)
[2019-02-26] MEDS: LEVOTHYROXINE 75 MCG TAB PEG/G-TUBE SCH (05:38)
[2019-02-26] MEDS: LEVOTHYROXINE 100 MCG TAB PEG/G-TUBE SCH (05:38)
--- NOTE | 2019-02-26 06:06 | PN ---
PROGRESS NOTE DATE OF SERVICE: 02/25/2019 REASON FOR FOLLOWUP: 1. Abdominal wall abscess. 2. Infected sacral pressure ulcer. INTERVAL HISTORY: The patient is currently afebrile. Patient noted to be slightly lethargic this evening at time of evaluation. Apparently the patient had received [place] and Xanax this morning, which has been currently put on hold. Patient did not answer any questions. No nausea, vomiting, or any diarrhea reported. PHYSICAL EXAMINATION: Blood pressure 122/56, pulse of 103, temperature 98. He is 94% on room air. General description is an elderly male lying in bed in no distress. RESPIRATORY SYSTEM: Unlabored breathing, clear to auscultation anteriorly. HEART: S1, S2. Regular rate and rhythm. ABDOMEN: Soft, no tenderness. LABS: Creatinine 0.55. White count normal. The abdominal wound culture did show MRSA and VRE along with anaerobic gram negative bacilli. DIAGNOSTIC IMPRESSION AND PLAN: Patient with abdominal wall abscess. Culture positive for MRSA and VRE gram- negative as well as anaerobic gram-negative we will add daptomycin and Flagyl. Discontinue the vancomycin and cefepime and monitor his clinical course closely. MMODL / IJN: [id number] /
[2019-02-26 07:05] LABS: African American GFR (CKD) >90 (>60 ml/min/1.73 sqM); Anion Gap 3 mmol/L; Blood Urea Nitrogen 12 mg/dL (9-20); Calcium 8.2 mg/dL (8.4-10.2); Carbon Dioxide 27 mmol/L (22-30); Chloride 112 mmol/L (98-107); Glucose 118 mg/dL (74-99); Non-African American GFR(CKD) >90 (>60 ml/min/1.73 sqM); Potassium 3.3 mmol/L (3.5-5.1); Sodium 142 mmol/L (137-145)
[2019-02-26 07:10] LABS: Glucose,Whole Blood 118 mg/dL (75-99)
[2019-02-26] MEDS: IPRATROPIUM-ALBUTEROL 3 ML NEB INHALATION SCH ×4 (08:18→18:45)
[2019-02-26] MEDS: METOPROLOL TARTRATE 25 MG TAB PEG/G-TUBE SCH ×2 (09:00→22:20)
[2019-02-26] MEDS: PANTOPRAZOLE 40 MG/10 ML VIAL IV SCH (09:00)
[2019-02-26] MEDS: QUEtiapine 50 MG TAB PEG/G-TUBE SCH (09:00)
[2019-02-26] MEDS: CEFEPIME 2 GM in SODIUM CHLORIDE 0.9% 100 ML IVPB SCH ×2 (09:00→23:53)
[2019-02-26] MEDS: TRIAMCINOLONE ACET 0.5% CREAM 15 GM TUBE TOPICAL SCH ×2 (09:00→22:21)
[2019-02-26] MEDS: PREGABALIN 25 MG CAP PEG/G-TUBE SCH (09:00)
[2019-02-26] MEDS: PREGABALIN 75 MG CAP PEG/G-TUBE SCH ×2 (09:00→22:20)
[2019-02-26] MEDS: CHLORHEXIDINE GLUCONATE 15 ML CUP MUCOUS MEM SCH ×2 (09:05→22:20)
[2019-02-26] MEDS: NYSTATIN 100,000UNIT/GM CREAM 30 GM TUBE TOPICAL SCH ×3 (09:06→22:21)
[2019-02-26] MEDS: CLOTRIMAZOLE 1% CREAM 15 GM TUBE TOPICAL SCH ×2 (09:06→22:21)
[2019-02-26] MEDS: DRY MOUTH SPRAY 44.3 SPRAY/44.3 ML SPRAY MUCOUS MEM SCH ×3 (11:40→17:14)
[2019-02-26 11:46] LABS: Glucose,Whole Blood 128 mg/dL (75-99)
--- NOTE | 2019-02-26 12:43 | P.PN ---
Subjective Progress Note Date: 02/26/19 CHIEF COMPLAINT: Wound HISTORY OF PRESENT ILLNESS: 83-year-old male who is status post debridement of chronic abdominal wound secondary to previous colostomy site. Patient examined this morning at the bedside. He denies abdominal pain. PHYSICAL EXAM: VITAL SIGNS: Reviewed. GENERAL: Well-developed in no acute distress. HEENT: No sclera icterus. Extraocular movements grossly intact. Moist buccal mucosa. Head is atraumatic, normocephalic. ABDOMEN: Soft. Nondistended. Nontender. Ostomy to right side of abdomen with stool noted. PEG tube noted. Open wound to left side of abdomen with small amount of serosanguineous drainage. NEUROLOGIC: Lethargic SKIN: Large sacral decubitus ulcer with bone exposed. No necrotic tissue noted. ASSESSMENT: 1. Abdominal wound, secondary to previous colostomy site, s/p debridement 2. History of exploratory laparotomy, sigmoid colectomy with end colostomy, and drainage of abscess secondary to perforated diverticulitis with feculent and purulent peritonitis 3. History of colostomy revision 4. Sacral decubitus ulcer PLAN: Local wound care to abdominal wound. Change daily with dry gauze Continue tube feedings as tolerated No further surgical intervention recommended Nurse practitioner note has been reviewed by physician. Signing provider agrees with the documented findings, assessment, and plan of care. Objective - Vital Signs Vital signs: Vital Signs Temp 98.1 F 02/26/19 07:00 Pulse 105 H 02/26/19 07:00 Resp 16 02/26/19 07:00 BP 120/71 02/26/19 07:00 Pulse Ox 95 02/26/19 07:00 Intake & Output 02/25/19 02/26/19 02/26/19 18:59 06:59 18:59 Intake Total 1368 Output Total 950 1275 Balance 418 -1275 Weight 102.058 kg Intake: Intake, IV Titration 600 Amount Sodium Chloride 0.9% 1, 600 000 ml @ 120 mls/hr IV . Q8H20M [facility] Rx#:[id number] Tube Feeding 768 Output: Urine 900 1025 Stool 50 250 Other: Voiding Method Indwelling Catheter Indwelling Catheter Indwelling Catheter - Labs CBC & Chem 7: 02/24/19 06:47 02/26/19 05:31 Labs: Abnormal Lab Results - Last 24 Hours (Table) 02/25/19 02/25/19 02/26/19 Range/Units 16:57 22:40 05:31 Potassium 3.3 L (3.5-5.1) mmol/L Chloride 112 H (98-107) mmol/L Creatinine 0.57 L (0.66-1.25) mg/dL Glucose 118 H (74-99) mg/dL POC Glucose (mg/dL) 125 H 136 H (75-99) mg/dL Calcium 8.2 L (8.4-10.2) mg/dL 02/26/19 02/26/19 Range/Units 07:09 11:44 Potassium (3.5-5.1) mmol/L Chloride (98-107) mmol/L Creatinine (0.66-1.25) mg/dL Glucose (74-99) mg/dL POC Glucose (mg/dL) 118 H 128 H (75-99) mg/dL Calcium (8.4-10.2) mg/dL Microbiology - Last 24 Hours (Table) 02/21/19 16:51 Blood Culture - Preliminary Blood No Growth after 96 hours 02/24/19 08:39 Gram Stain - Preliminary Abdomen Wound Culture - Preliminary Presumptive MRSA Group D Enterococcus 02/22/19 12:05 Anaerobic Culture - Final Buttock Anaerobic Gm Negative Bacilli Anaerobic Gm Negative Bacilli#2
[2019-02-26] MEDS: HYDROcodone/APAP 7.5-325MG 1 EACH TAB PO PRN ×2 (13:06→18:50)
--- NOTE | 2019-02-26 14:13 | CDI ---
Documentation Clarification Form Date: 02/26/2019 2:05:44 PM From: Kendra Ro RN, CCDS Admit Date: 02/23/2019 2:01:00 PM Patient Name: Rene Martinez Visit Number: [id number] Discharge Date: ATTENTION: The Clinical Documentation Specialists (CDI) and [facility] Coding Staff appreciate your assistance in clarifying documentation. Please respond to the clarification below the line at the bottom and electronically sign. The CDI & [facility] Coding staff will review the response and follow-up if needed. Please note: Queries are made part of the Legal Health Record. If you have any questions, please contact the author of this message via ITS. Dr. Rony Woodward Per your progress notes/operative note, a debridement was performed on 02/24/2019 and further clarification is needed. History/Risk Factors: Bowel resection, Colostomy, Sacral decubitus ulcer, Hypertension Clinical Indicators: 83-year-old male brought in via EMS from [facility]. Patient has been having worsening wound to his abdomen and coccyx. There are 2 anterior abdominal wounds. More left lateral wound has a 2x2 cavitation, no significant cellulitis around the wound sites. 02/24/2019 procedure note has indicated small opening of the colostomy at the fascial edge. The colostomy had completely retracted to the fascial level. The skin and fat were debrided sharply. Treatment: Debridement of abdominal wound (colostomy site) Wet-to-dry dressing (change per orders) Five elements required for accurate and compliant documentation of a debridement: 1. Technique used (e.g., excisional, excised, cutting, etc.) 2. Instrument(s) used (e.g., scalpel, curette, etc.) 3. Nature of the tissue removed (e.g., necrotic, devitalized tissues, non- viable tissue, etc.) 4. Appearance and size of the wound (e.g., down to fresh bleeding tissue, 7cm x 10cm, etc.) 5. Depth of the debridement* (e.g., skin, subcutaneous tissue, fascia, muscle, bone, etc.) In order to capture the severity of condition and code the appropriate procedure; could you please document the following: Excisional debridement (the removal of necrotic, devitalized tissue or slough by means of cutting away of tissue) Non-excisional debridement (the removal of necrotic, devitalized tissue or slough by means of flushing, brushing, or washing. (Irrigation) Other; please specify Unable to determine (Last Revision: July 2017) excisional with scalpel devitalized skin and fat taken down to health fat MTDD
[2019-02-26 16:54] LABS: Glucose,Whole Blood 115 mg/dL (75-99)
[2019-02-26] MEDS: MULTIVITAMINS, THERA 1 EACH TAB PEG/G-TUBE SCH (17:13)
[2019-02-26] MEDS: FERROUS SULFATE ORAL ELIXIR 300 MG/5 ML CUP PEG/G-TUBE SCH (17:13)
[2019-02-26] MEDS: ENOXAPARIN 40 MG/0.4 ML SYRINGE SQ SCH (17:13)
[2019-02-26] MEDS: ASPIRIN 81 MG PEG/G-TUBE SCH (17:13)
--- NOTE | 2019-02-26 17:43 | P.PN ---
Progress Note - Text Progress Note Date: 02/26/19 Chief Complaint: Fever History of presenting complaint: This is a 82-year-old patient of Dr. Lopez. Patient was in the hospital from September 30 through October 182018. Patient then had presented with acute perforated diverticulitis. Had a sigmoid colectomy, had a drain in place with partial closure of the incision. Also had wound VAC on the lower half of the abdominal wall. Patient being followed by Dr. Woodward from general surgery and Dr. Park from infectious disease. [facility] was [facility]. Patient has couple of times back and forth from [facility] to [facility]. Then was transferred to [facility]. Patient did have a colostomy in the past and had revision that was done at [facility]. Patient currently is a PEG tube for feeding. Patient's chronic stable medical conditions include gout, BPH, chronic low back pain, large sacral decubitus wound which patient had a wound VAC in place. Patient also is a large anterior abdominal wound which she's been healing with secondary intention. Patient does communicate rather briefly. Patient is currently on a pured diet with assistance. Patient had been here and hospital on January 28 and patient was then transferred to [facility] where Dr. Machado team had taken care of him. patient presented here from the [facility]. The clinical picture of sepsis. Has had fever. Sacral wounds are getting worse. Also abdominal stoma has been draining. Dr. Woodward from general surgery was consulted and so was Dr. Park from [place]. -patient was only taken to the operating room. Patient's stoma wound was cleaned out. There was no deeper communication. Today -. Yesterday patient noted to be a bit more lethargic. Computed tomography scan of the brain was done. There was negative. Neuro checks were ordered. Answering questions. Did receive a Iselin 10 about 3:00 this morning. Review of systems: Was done for constitutional, cardiovascular, GI, pulmonary. relevant finding as above Active Medications Acetaminophen (Tylenol Tab) 650 mg PEG/G-TUBE Q4H PRN PRN Reason: Pain Hydrocodone Bitart/Acetaminophen (Iselin 7.5-325) 1 each PO Q6H PRN PRN Reason: Moderate Pain Last Admin: 02/26/19 13:06 Dose: 1 each Documented by: Albuterol/Ipratropium (Duoneb 0.5 Mg-3 Mg/3 Ml Soln) 3 ml INHALATION RT-QID [facility] Last Admin: 02/26/19 14:55 Dose: Not Given Documented by: Amlodipine Besylate (Norvasc) 5 mg PEG/G-TUBE HS@2100 [facility] Last Admin: 02/25/19 21:53 Dose: 5 mg Documented by: Artificial Tears (Artificial Tear Drops) 1 drops BOTH EYES TID PRN PRN Reason: DRY EYE Aspirin (Aspirin) 81 mg PEG/G-TUBE DAILY@1700 [facility] Last Admin: 02/26/19 17:13 Dose: 81 mg Documented by: Bisacodyl (Dulcolax) 10 mg RECTAL DAILY PRN PRN Reason: Constipation Chlorhexidine Gluconate (Peridex) 15 ml MUCOUS MEM BID [facility] Last Admin: 02/26/19 09:05 Dose: 15 ml Documented by: Clotrimazole (Lotrimin Cream) 1 applic TOPICAL BID [facility] Last Admin: 02/26/19 09:06 Dose: 1 applic Documented by: Colchicine (Colcrys) 0.6 mg PEG/G-TUBE DAILY PRN PRN Reason: Pain Ezetimibe (Zetia) 10 mg PEG/G-TUBE HS@2100 [facility] Last Admin: 02/25/19 21:53 Dose: 10 mg Documented by: Enoxaparin Sodium (Lovenox) 40 mg SQ DAILY@1700 [facility] Last Admin: 02/26/19 17:13 Dose: 40 mg Documented by: Ferrous Sulfate (Feosol) 300 mg PEG/G-TUBE DAILY@1700 [facility] Last Admin: 02/26/19 17:13 Dose: 300 mg Documented by: Sodium Chloride (Saline 0.9%) 1,000 mls @ 120 mls/hr IV .Q8H20M [facility] Last Admin: 02/26/19 17:12 Dose: 120 mls/hr Documented by: Cefepime HCl 2 gm/ Sodium (Chloride) 100 mls @ 200 mls/hr IVPB Q12HR [facility] Last Admin: 02/26/19 09:00 Dose: 200 mls/hr Documented by: Daptomycin 600 mg/ Sodium (Chloride) 50 mls @ 100 mls/hr IVPB Q24H [facility]; Protocol Last Admin: 02/25/19 21:53 Dose: 100 mls/hr Documented by: Metronidazole 500 mg/ IV (Solution) 100 mls @ 100 mls/hr IVPB Q8HR [facility] Last Admin: 02/26/19 15:07 Dose: 100 mls/hr Documented by: Insulin Detemir (Levemir) 2 unit SQ HS@2100 [facility] Last Admin: 02/25/19 21:54 Dose: 2 unit Documented by: Levothyroxine Sodium (Synthroid) 75 mcg PEG/G-TUBE DAILY@0600 [facility] Last Admin: 02/26/19 05:38 Dose: 75 mcg Documented by: Levothyroxine Sodium (Synthroid) 100 mcg PEG/G-TUBE DAILY@0600 [facility] Last Admin: 02/26/19 05:38 Dose: 100 mcg Documented by: Magnesium Hydroxide (Milk Of Magnesia) 2,400 mg PEG/G-TUBE DAILY PRN PRN Reason: Constipation Metoprolol Tartrate (Lopressor) 25 mg PEG/G-TUBE BID@0800,2100 [facility] Last Admin: 02/26/19 09:00 Dose: 25 mg Documented by: Multivitamins (Theragran) 1 each PEG/G-TUBE DAILY@1700 [facility] Last Admin: 02/26/19 17:13 Dose: 1 each Documented by: Naloxone HCl (Narcan) 0.2 mg IV Q2M PRN PRN Reason: Opioid Reversal Nitroglycerin (Nitrostat) 0.4 mg SUBLINGUAL Q5M PRN PRN Reason: Chest Pain Nystatin (Mycostatin Cream) 1 applic TOPICAL TID [facility] Last Admin: 02/26/19 09:06 Dose: 1 applic Documented by: Ondansetron HCl (Zofran) 4 mg IVP Q8HR PRN PRN Reason: Nausea And Vomiting Ondansetron HCl (Zofran) 4 mg PEG/G-TUBE Q6H PRN PRN Reason: Nausea Pantoprazole Sodium (Protonix) 40 mg IV DAILY [facility] Last Admin: 02/26/19 09:00 Dose: 40 mg Documented by: Pregabalin (Lyrica) 75 mg PEG/G-TUBE BID@0800,2100 [facility] Last Admin: 02/26/19 09:00 Dose: 75 mg Documented by: Quetiapine Fumarate (Seroquel) 37.5 mg PO HS [facility] Saliva Substitute (Mouthkote Solution) 1 spray MUCOUS MEM TID@0800,1200,1700 [facility] Last Admin: 02/26/19 17:14 Dose: 1 spray Documented by: Tamsulosin HCl (Flomax) 0.4 mg PO HS@2100 [facility] Last Admin: 02/25/19 21:54 Dose: Not Given Documented by: Triamcinolone Acetonide (Kenalog 0.5% Cream) 1 applic TOPICAL BID [facility] Last Admin: 02/26/19 09:00 Dose: 1 applic Documented by: Physical examination: VITAL SIGNS: 98.1, 105, 16, 120/71, 95% room air GENERAL: Laying in bed, tired EYES: Pupils equal. Conjunctiva pale HEENT: External appearance of nose and ears normal, oral cavity dry. NECK: JVD unable to assess; masses not palpable. HEART: Heart sounds irregular , no edema. LUNGS: Respiratory rate increased; decreased breath sounds. ABDOMEN: Soft, some abdominal tenderness, no guarding no rigidity, liver spleen not palpable, no masses palpable, bowel sounds present. Colostomy bag on the right side. Feeding tube . abdominal wall stoma on the left side, but purulent drainage PSYCH: Able to answer simple questions NEUROLOGICAL: Cranial nerves grossly intact; no facial asymmetry, decreased both lower extremities, supportive boots in place DERMATOLOGICAL:: Large sacral wound stage IV, pictures in the chart Investigations reviewed in the clinical context Potassium 3.3 creatinine 0.57 Computed tomography scan brain-middle acute Previous testing White count 12.1 hemoglobin 11.1 L 50 Potassium 5.1 crit 0.7 lactic acid 2.2 AST 135 ALT 101 albumin 3 EKG tracing personally reviewed by me-sinus tachycardia, rate protocol block Chest x-ray film personally reviewed by me-showing underpenetration Fistulogram-contrast came back up at the abdomen C-reactive protein 87 Wound culture, from abdomen and buttocks-growing MRSA Assessment: -Acute on chronic abdominal stoma wound at the site of previous colostomy, with no deeper communication., Growing MRSA -Sepsis with multiple source of infection including large decubitus sacral wound and abdominal wound that is draining, improved, growing MRSA -Acute metabolic encephalopathy likely from medications. Note that patient got Iselin 10 mg dose this morning. Also patient is on Lyrica. Also prescribed Xanax when necessary. Also receiving Seroquel 50 mg at night. -History of atrial flutter, -Coronary artery disease with prior history of stent and bypass -Sigmoid colectomy with a resultant colostomy -Hyperlipidemia -Essential hypertension -Primary osteoarthritis -BPH -Hypothyroidism -Chronic gout -PTSD -PEG tube feeding -Large stage IV sacral decubitus ulcer infected appearing -Normocytic anemia of chronic disease -Patient's is the DPOA, and the elder son is also the agent for medical advocate for the Plan: We'll decrease the Iselin from 10-7.5 every 6 when necessary. Decrease the Lyrica to 75 mg every 12 from 100 mg every 12. We'll also decrease the Seroquel to 37.5 mg at night. DC Xanax. We will also do DC the Ambien at night, the last dose was received on February 21. I'm hoping these changes will make the patient more awake. Less watch for another 24 hours. Discussed with Fady from general surgery. And with speech therapy. Okay to PUT the patient back on her. Patient did pass bedside test with a speech therapist. Total time spent today was about 45 minutes with over 25 minutes of discussion
[2019-02-26 20:31] LABS: Glucose,Whole Blood 100 mg/dL (75-99)
[2019-02-26] MEDS: INSULIN DETEMIR (LEVEMIR) 100 UNIT/ML SYR SQ SCH (22:13)
[2019-02-26] MEDS: EZETIMIBE 10 MG TAB PEG/G-TUBE SCH (22:20)
[2019-02-26] MEDS: TAMSULOSIN 0.4 MG CAP.ER.24H PO SCH (22:20)
[2019-02-26] MEDS: QUEtiapine 25 MG TAB PO SCH (22:20)
[2019-02-26] MEDS: amLODIPine 5 MG TAB PEG/G-TUBE SCH (22:20)
--- NOTE | 2019-02-26 23:28 | PN ---
PROGRESS NOTE DATE OF SERVICE: 02/26/2019. REASON FOR FOLLOWUP: 1. Abdominal wall abscess. 2. Infected sacral pressure ulcer. INTERVAL HISTORY: The patient is currently afebrile. The patient is more awake, alert. He is breathing comfortably. No nausea, vomiting and no abdominal pain or diarrhea reported. PHYSICAL EXAMINATION: Blood pressure 130/81 with a pulse of 101, temperature 98.4. He is 95% on room air. General description is an elderly male lying in bed in no distress. RESPIRATORY SYSTEM: Unlabored breathing. Clear to auscultation anteriorly. HEART: S1, S2. Regular rate and rhythm. ABDOMEN: Soft. No tenderness. Sacral wound minimal slough tissue. Some drainage, not significantly foul- smelling. LABS: Creatinine 0.57. Wound culture has been predominantly VRE, anaerobic gram-negative bacilli. DIAGNOSTIC IMPRESSION AND PLAN: Patient with abdominal wall abscess. Culture positive for VRE and MRSA. Also with a stage IV infected sacral pressure ulcer. Culture has been predominantly gram-positive with no gram-negative done. Patient to continue with daptomycin and oral Flagyl. Local wound care to the sacral wound with wound V.A.C. at continuous pressure 125 mmHg, the black foam to be changed Tuesday, Tuesday, Tuesday. He will get a PICC line for continuation of IV antibiotic therapy in the outpatient setting. MMODL / IJN: [id number] /
[2019-02-27] MEDS: metroNIDAZOLE-NS PMX 500 MG in SALINE 1 100ML.BAG IVPB SCH ×4 (00:12→22:49)
[2019-02-27] MEDS: LEVOTHYROXINE 100 MCG TAB PEG/G-TUBE SCH (05:00)
[2019-02-27] MEDS: LEVOTHYROXINE 75 MCG TAB PEG/G-TUBE SCH (05:00)
[2019-02-27] MEDS: SODIUM CHLORIDE 0.9% 1,000 ML IV SCH ×3 (05:00→22:57)
[2019-02-27] MEDS: HYDROcodone/APAP 7.5-325MG 1 EACH TAB PO PRN ×4 (05:22→17:28)
[2019-02-27 06:58] LABS: Glucose,Whole Blood 145 mg/dL (75-99)
[2019-02-27] MEDS: IPRATROPIUM-ALBUTEROL 3 ML NEB INHALATION SCH ×4 (07:58→21:15)
[2019-02-27] MEDS: PANTOPRAZOLE 40 MG/10 ML VIAL IV SCH (09:02)
[2019-02-27] MEDS: PREGABALIN 75 MG CAP PEG/G-TUBE SCH ×2 (09:02→20:33)
[2019-02-27] MEDS: METOPROLOL TARTRATE 25 MG TAB PEG/G-TUBE SCH ×2 (09:02→20:33)
[2019-02-27] MEDS: CHLORHEXIDINE GLUCONATE 15 ML CUP MUCOUS MEM SCH ×2 (09:03→20:34)
[2019-02-27] MEDS: TRIAMCINOLONE ACET 0.5% CREAM 15 GM TUBE TOPICAL SCH ×2 (09:03→20:34)
[2019-02-27] MEDS: DRY MOUTH SPRAY 44.3 SPRAY/44.3 ML SPRAY MUCOUS MEM SCH ×3 (09:03→17:29)
[2019-02-27] MEDS: NYSTATIN 100,000UNIT/GM CREAM 30 GM TUBE TOPICAL SCH ×3 (09:03→20:34)
[2019-02-27] MEDS: CLOTRIMAZOLE 1% CREAM 15 GM TUBE TOPICAL SCH ×2 (09:03→20:34)
--- NOTE | 2019-02-27 11:27 | P.PN ---
Subjective Progress Note Date: 02/27/19 CHIEF COMPLAINT: Wound HISTORY OF PRESENT ILLNESS: 83-year-old male who is status post debridement of chronic abdominal wound secondary to previous colostomy site. Patient examined this morning at the bedside. He denies abdominal pain. He is tolerating tube feedings. He is afebrile. PHYSICAL EXAM: VITAL SIGNS: Reviewed. GENERAL: Well-developed in no acute distress. HEENT: No sclera icterus. Extraocular movements grossly intact. Moist buccal mucosa. Head is atraumatic, normocephalic. ABDOMEN: Soft. Nondistended. Nontender. Ostomy to right side of abdomen with stool noted. PEG tube noted. Open wound to left side of abdomen with small amount of serosanguineous drainage. NEUROLOGIC: Lethargic SKIN: Large sacral decubitus ulcer with bone exposed. No necrotic tissue noted. ASSESSMENT: 1. Abdominal wound, secondary to previous colostomy site, s/p debridement 2. History of exploratory laparotomy, sigmoid colectomy with end colostomy, and drainage of abscess secondary to perforated diverticulitis with feculent and purulent peritonitis 3. History of colostomy revision 4. Sacral decubitus ulcer PLAN: Local wound care to abdominal wound. Change daily with dry gauze Continue tube feedings as tolerated. Continue PO intake as tolerated No further surgical intervention recommended Nurse practitioner note has been reviewed by physician. Signing provider agrees with the documented findings, assessment, and plan of care. Objective - Vital Signs Vital signs: Vital Signs Temp 97.8 F 02/27/19 07:00 Pulse 99 02/27/19 07:00 Resp 19 02/27/19 07:00 BP 119/71 02/27/19 07:00 Pulse Ox 92 L 02/27/19 07:00 Intake & Output 02/26/19 02/27/19 02/27/19 18:59 06:59 18:59 Output Total 950 Balance -950 Weight 102.058 kg 111.13 kg Output: Urine 950 Other: Voiding Method Indwelling Catheter Indwelling Catheter Indwelling Catheter - Labs CBC & Chem 7: 02/24/19 06:47 02/26/19 05:31 Labs: Abnormal Lab Results - Last 24 Hours (Table) 02/26/19 02/26/19 02/26/19 Range/Units 11:44 16:52 20:29 POC Glucose (mg/dL) 128 H 115 H 100 H (75-99) mg/dL 02/27/19 Range/Units 06:54 POC Glucose (mg/dL) 145 H (75-99) mg/dL Microbiology - Last 24 Hours (Table) 02/24/19 08:39 Anaerobic Culture - Final Abdomen Anaerobic Gm Negative Bacilli Anaerobic Gm Negative Bacilli#2 02/21/19 16:51 Blood Culture - Preliminary Blood No Growth after 120 hours 02/24/19 08:39 Gram Stain - Final Abdomen Wound Culture - Final Methicillin resist S. aureus Enterococcus faecium VRE
[2019-02-27 11:44] LABS: Glucose,Whole Blood 120 mg/dL (75-99)
--- NOTE | 2019-02-27 12:45 | PN ---
PROGRESS NOTE DATE OF SERVICE: 02/27/2019 REASON FOR FOLLOWUP: 1. Abdominal wall abscess. 2. Infected sacral pressure ulcer. INTERVAL HISTORY: The patient is currently afebrile. Patient is awake, alert. He is breathing comfortably. Denies having any chest pain or cough. No nausea, vomiting, or abdominal pain. PHYSICAL EXAMINATION: Blood pressure 119/71 with a pulse of 99, temperature 97.8. He is 92% on room air. General description is an elderly male, lying in bed in no distress. RESPIRATORY SYSTEM: Unlabored breathing, clear to auscultation anteriorly. HEART: S1, S2. Regular rate and rhythm. ABDOMEN: Soft, no tenderness. LABS: No new labs have been obtained today. Culture has been prodominantly VRE, MRSA anaerobes. DIAGNOSTIC IMPRESSION AND PLAN: 1. Patient's abdominal wall abscess, status post drainage. Patient's culture with vancomycin resistant enterococci and methicillin-resistant Staphylococcus aureus. 2. Infected sacral pressure ulcer with underlying osteomyelitis. Culture with VRE and MRSA anaerobes. Patient is currently covered with daptomycin and Flagyl. He will continue for 6 weeks. PICC line has been ordered. Local care of the sacral wound with wound VAC and close [facility]. MMODL / IJN: [id number] /
[2019-02-27 14:50] VITALS: RESP 18
[2019-02-27 14:56] LABS: Hemoglobin A1C 5.4 % (4.0-6.0)
[2019-02-27 16:52] LABS: Glucose,Whole Blood 115 mg/dL (75-99)
[2019-02-27] MEDS: ASPIRIN 81 MG PEG/G-TUBE SCH (17:29)
[2019-02-27] MEDS: MULTIVITAMINS, THERA 1 EACH TAB PEG/G-TUBE SCH (17:29)
[2019-02-27] MEDS: FERROUS SULFATE ORAL ELIXIR 300 MG/5 ML CUP PEG/G-TUBE SCH (17:29)
[2019-02-27] MEDS: ENOXAPARIN 40 MG/0.4 ML SYRINGE SQ SCH (17:29)
[2019-02-27 20:31] LABS: Glucose,Whole Blood 123 mg/dL (75-99)
[2019-02-27] MEDS: INSULIN DETEMIR (LEVEMIR) 100 UNIT/ML SYR SQ SCH (20:33)
[2019-02-27] MEDS: QUEtiapine 25 MG TAB PO SCH (20:34)
[2019-02-27] MEDS: EZETIMIBE 10 MG TAB PEG/G-TUBE SCH (20:34)
[2019-02-27] MEDS: amLODIPine 5 MG TAB PEG/G-TUBE SCH (20:34)
[2019-02-27] MEDS: TAMSULOSIN 0.4 MG CAP.ER.24H PO SCH (20:34)
--- NOTE | 2019-02-27 22:59 | P.PN ---
Progress Note - Text Progress Note Date: 02/27/19 Chief Complaint: Fever History of presenting complaint: This is a 82-year-old patient of Dr. Lopez. Patient was in the hospital from September 30 through October 182018. Patient then had presented with acute perforated diverticulitis. Had a sigmoid colectomy, had a drain in place with partial closure of the incision. Also had wound VAC on the lower half of the abdominal wall. Patient being followed by Dr. Woodward from general surgery and Dr. Good from infectious disease. Patient was discharged to [facility] specialty. Patient has couple of times back and forth from select specialties to [facility]. Then was transferred to [facility]. Patient did have a colostomy in the past and had revision that was done at [facility]. Patient currently is a PEG tube for feeding. Patient's chronic stable medical conditions include gout, BPH, chronic low back pain, large sacral decubitus wound which patient had a wound VAC in place. Patient also is a large anterior abdominal wound which she's been healing with secondary intention. Patient does communicate rather briefly. Patient is currently on a pured diet with assistance. Patient had been here and hospital on January 28 and patient was then transferred to [facility] where Dr. Machado team had taken care of him. patient presented here from the [facility]. The clinical picture of sepsis. Has had fever. Sacral wounds are getting worse. Also abdominal stoma has been draining. Dr. Woodward from general surgery was consulted and so was Dr. Good from [place]. -patient was only taken to the operating room. Patient's stoma wound was cleaned out. There was no deeper communication. Because of patient being lethargic patient dose of Seroquel, Lyrica was cut back. Patient became more awake. Also dose of Lomira was cut back. Today-patient more awake today. Watching television. Communicating well. Did have some applesauce. Pain well controlled. PICC line ordered. . Review of systems: Was done for constitutional, cardiovascular, GI, pulmonary. relevant finding as above Active Medications Acetaminophen (Tylenol Tab) 650 mg PEG/G-TUBE Q4H PRN PRN Reason: Mild Pain Last Admin: 02/26/19 22:49 Dose: 650 mg Documented by: Hydrocodone Bitart/Acetaminophen (Lomira 7.5-325) 1 each PO Q6H PRN PRN Reason: Moderate Pain Last Admin: 02/27/19 17:28 Dose: 1 each Documented by: Albuterol/Ipratropium (Duoneb 0.5 Mg-3 Mg/3 Ml Soln) 3 ml INHALATION RT-QID [facility] Last Admin: 02/27/19 21:15 Dose: Not Given Documented by: Amlodipine Besylate (Norvasc) 5 mg PEG/G-TUBE HS@2100 [facility] Last Admin: 02/27/19 20:34 Dose: 5 mg Documented by: Artificial Tears (Artificial Tear Drops) 1 drops BOTH EYES TID PRN PRN Reason: DRY EYE Aspirin (Aspirin) 81 mg PEG/G-TUBE DAILY@1700 [facility] Last Admin: 02/27/19 17:29 Dose: 81 mg Documented by: Bisacodyl (Dulcolax) 10 mg RECTAL DAILY PRN PRN Reason: Constipation Chlorhexidine Gluconate (Peridex) 15 ml MUCOUS MEM BID [facility] Last Admin: 02/27/19 20:34 Dose: 15 ml Documented by: Clotrimazole (Lotrimin Cream) 1 applic TOPICAL BID [facility] Last Admin: 02/27/19 20:34 Dose: 1 applic Documented by: Colchicine (Colcrys) 0.6 mg PEG/G-TUBE DAILY PRN PRN Reason: Pain Ezetimibe (Zetia) 10 mg PEG/G-TUBE HS@2100 [facility] Last Admin: 02/27/19 20:34 Dose: 10 mg Documented by: Enoxaparin Sodium (Lovenox) 40 mg SQ DAILY@1700 [facility] Last Admin: 02/27/19 17:29 Dose: 40 mg Documented by: Ferrous Sulfate (Feosol) 300 mg PEG/G-TUBE DAILY@1700 [facility] Last Admin: 02/27/19 17:29 Dose: 300 mg Documented by: Sodium Chloride (Saline 0.9%) 1,000 mls @ 120 mls/hr IV .Q8H20M [facility] Last Admin: 02/27/19 09:25 Dose: Not Given Documented by: Daptomycin 600 mg/ Sodium (Chloride) 50 mls @ 100 mls/hr IVPB Q24H [facility]; Protocol Last Admin: 02/27/19 20:33 Dose: 100 mls/hr Documented by: Metronidazole 500 mg/ IV (Solution) 100 mls @ 100 mls/hr IVPB Q8HR [facility] Last Admin: 02/27/19 22:49 Dose: 100 mls/hr Documented by: Insulin Detemir (Levemir) 2 unit SQ HS@2100 [facility] Last Admin: 02/27/19 20:33 Dose: 2 unit Documented by: Levothyroxine Sodium (Synthroid) 100 mcg PEG/G-TUBE DAILY@0600 [facility] Magnesium Hydroxide (Milk Of Magnesia) 2,400 mg PEG/G-TUBE DAILY PRN PRN Reason: Constipation Metoprolol Tartrate (Lopressor) 25 mg PEG/G-TUBE BID@0800,2100 [facility] Last Admin: 02/27/19 20:33 Dose: 25 mg Documented by: Multivitamins (Theragran) 1 each PEG/G-TUBE DAILY@1700 [facility] Last Admin: 02/27/19 17:29 Dose: 1 each Documented by: Naloxone HCl (Narcan) 0.2 mg IV Q2M PRN PRN Reason: Opioid Reversal Nitroglycerin (Nitrostat) 0.4 mg SUBLINGUAL Q5M PRN PRN Reason: Chest Pain Nystatin (Mycostatin Cream) 1 applic TOPICAL TID [facility] Last Admin: 02/27/19 20:34 Dose: 1 applic Documented by: Ondansetron HCl (Zofran) 4 mg IVP Q8HR PRN PRN Reason: Nausea And Vomiting Ondansetron HCl (Zofran) 4 mg PEG/G-TUBE Q6H PRN PRN Reason: Nausea Pantoprazole Sodium (Protonix) 40 mg IV DAILY [facility] Last Admin: 02/27/19 09:02 Dose: 40 mg Documented by: Pregabalin (Lyrica) 75 mg PEG/G-TUBE BID@0800,2100 [facility] Last Admin: 02/27/19 20:33 Dose: 75 mg Documented by: Quetiapine Fumarate (Seroquel) 37.5 mg PO HS [facility] Last Admin: 02/27/19 20:34 Dose: 37.5 mg Documented by: Saliva Substitute (Mouthkote Solution) 1 spray MUCOUS MEM TID@0800,1200,1700 [facility] Last Admin: 02/27/19 17:29 Dose: 1 spray Documented by: Tamsulosin HCl (Flomax) 0.4 mg PO HS@2100 [facility] Last Admin: 02/27/19 20:34 Dose: 0.4 mg Documented by: Triamcinolone Acetonide (Kenalog 0.5% Cream) 1 applic TOPICAL BID [facility] Last Admin: 02/27/19 20:34 Dose: 1 applic Documented by: Physical examination: VITAL SIGNS: 97.9, 86, 18, 122/69, 94% room air GENERAL: More awake, propped up in bed EYES: Pupils equal. Conjunctiva pale HEENT: External appearance of nose and ears normal, oral cavity dry. NECK: JVD unable to assess; masses not palpable. HEART: Heart sounds irregular , no edema. LUNGS: Respiratory rate increased; decreased breath sounds. ABDOMEN: Soft, some abdominal tenderness, no guarding no rigidity, liver spleen not palpable, no masses palpable, bowel sounds present. Colostomy bag on the right side. Feeding tube . abdominal wall stoma on the left side, but purulent drainage PSYCH: Able to answer simple questions NEUROLOGICAL: Cranial nerves grossly intact; no facial asymmetry, decreased both lower extremities, supportive boots in place DERMATOLOGICAL:: Large sacral wound stage IV, pictures in the chart Investigations reviewed in the clinical context Potassium 3.3 creatinine 0.57 Previous testing White count 12.1 hemoglobin 11.1 L 50 Potassium 5.1 crit 0.7 lactic acid 2.2 AST 135 ALT 101 albumin 3 EKG tracing personally reviewed by me-sinus tachycardia, rate protocol block Chest x-ray film personally reviewed by me-showing underpenetration Fistulogram-contrast came back up at the abdomen C-reactive protein 87 Wound culture, from abdomen and buttocks-growing MRSA Computed tomography scan brain-nil acute Assessment: -Acute on chronic abdominal stoma wound at the site of previous colostomy, with no deeper communication., Growing MRSA -Sepsis with multiple source of infection including large decubitus sacral wound and abdominal wound that is draining, improved, growing MRSA -Acute metabolic encephalopathy likely from medications. Note that patient got Lomira 10 mg dose this morning. Also patient is on Lyrica. Also prescribed Xanax when necessary. Also receiving Seroquel 50 mg at night. Improved with cutting back on the dose of Lyrica, Seroquel and decreasing dose of Lomira. 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 PICC line has been ordered. Discussed with Dr. good from [place]. Hopefully can be discharged tomorrow to ECF.
[2019-02-28] MEDS: SODIUM CHLORIDE 0.9% 1,000 ML IV SCH ×2 (03:21→15:42)
[2019-02-28 06:53] LABS: Glucose,Whole Blood 106 mg/dL (75-99)
[2019-02-28] MEDS: metroNIDAZOLE-NS PMX 500 MG in SALINE 1 100ML.BAG IVPB SCH (07:44)
[2019-02-28] MEDS: METOPROLOL TARTRATE 25 MG TAB PEG/G-TUBE SCH (07:44)
[2019-02-28] MEDS: CHLORHEXIDINE GLUCONATE 15 ML CUP MUCOUS MEM SCH (07:44)
[2019-02-28] MEDS: PREGABALIN 75 MG CAP PEG/G-TUBE SCH (07:44)
[2019-02-28] MEDS: DRY MOUTH SPRAY 44.3 SPRAY/44.3 ML SPRAY MUCOUS MEM SCH ×2 (07:44→15:43)
[2019-02-28] MEDS: CLOTRIMAZOLE 1% CREAM 15 GM TUBE TOPICAL SCH (07:45)
[2019-02-28] MEDS: NYSTATIN 100,000UNIT/GM CREAM 30 GM TUBE TOPICAL SCH (07:45)
[2019-02-28] MEDS: PANTOPRAZOLE 40 MG/10 ML VIAL IV SCH (07:45)
[2019-02-28] MEDS: TRIAMCINOLONE ACET 0.5% CREAM 15 GM TUBE TOPICAL SCH (07:45)
[2019-02-28] MEDS: HYDROcodone/APAP 7.5-325MG 1 EACH TAB PO PRN ×2 (07:48→15:17)
[2019-02-28] MEDS: IPRATROPIUM-ALBUTEROL 3 ML NEB INHALATION SCH ×2 (07:54→17:29)
[2019-02-28 08:14] LABS: Anisocytosis Slight; HCT 34.7 % (39.0-53.0); HGB 10.4 gm/dL (13.0-17.5); Hypochromasia Marked; MCH 27.7 pg (25.0-35.0); MCHC 30.1 g/dL (31.0-37.0); MCV 92.2 fL (80.0-100.0); Mean Platelet Volume 6.1; Platelet Count 403 k/uL (150-450); RBC 3.77 m/uL (4.30-5.90); RDW 16.4 % (11.5-15.5); WBC 12.5 k/uL (3.8-10.6)
[2019-02-28 08:19] VITALS: BP 134/74; PULSE 87; TEMP 97.7
[2019-02-28 08:29] LABS: African American GFR (CKD) >90 (>60 ml/min/1.73 sqM); Anion Gap 8 mmol/L; Blood Urea Nitrogen 13 mg/dL (9-20); Calcium 8.3 mg/dL (8.4-10.2); Carbon Dioxide 24 mmol/L (22-30); Chloride 107 mmol/L (98-107); Glucose 112 mg/dL (74-99); Non-African American GFR(CKD) >90 (>60 ml/min/1.73 sqM); Potassium 3.9 mmol/L (3.5-5.1); Sodium 139 mmol/L (137-145)
--- NOTE | 2019-02-28 09:56 | P.PN ---
Subjective Progress Note Date: 02/28/19 CHIEF COMPLAINT: Wound HISTORY OF PRESENT ILLNESS: 83-year-old male who is status post debridement of chronic abdominal wound secondary to previous colostomy site. Patient examined this morning at the bedside. He denies abdominal pain. He is tolerating tube feedings. He is afebrile. PHYSICAL EXAM: VITAL SIGNS: Reviewed. GENERAL: Well-developed in no acute distress. HEENT: No sclera icterus. Extraocular movements grossly intact. Moist buccal mucosa. Head is atraumatic, normocephalic. ABDOMEN: Soft. Nondistended. Nontender. Ostomy to right side of abdomen with stool noted. PEG tube noted. Open wound to left side of abdomen with small amount of serosanguineous drainage. NEUROLOGIC: Awake and alert. ASSESSMENT: 1. Abdominal wound, secondary to previous colostomy site, s/p debridement 2. History of exploratory laparotomy, sigmoid colectomy with end colostomy, and drainage of abscess secondary to perforated diverticulitis with feculent and purulent peritonitis 3. History of colostomy revision 4. Sacral decubitus ulcer PLAN: Local wound care to abdominal wound. Change daily with dry gauze Continue antibiotic spray Dr. Pinzon Continue tube feedings as tolerated. Continue PO intake as tolerated No further surgical intervention recommended Discharge per medicine Nurse practitioner note has been reviewed by physician. Signing provider agrees with the documented findings, assessment, and plan of care. Objective - Vital Signs Vital signs: Vital Signs Temp 97.7 F 02/28/19 07:00 Pulse 87 02/28/19 07:00 Resp 18 02/28/19 07:00 BP 134/74 02/28/19 07:00 Pulse Ox 93 L 02/28/19 07:00 Intake & Output 02/27/19 02/28/19 02/28/19 18:59 06:59 18:59 Intake Total 256 Output Total 550 Balance 256 -550 Weight 111.13 kg Intake: Tube Feeding 256 Output: Urine 300 Urine/Stool Mix 250 Other: Voiding Method Indwelling Catheter Indwelling Catheter - Labs CBC & Chem 7: 02/28/19 07:17 02/28/19 07:17 Labs: Abnormal Lab Results - Last 24 Hours (Table) 02/27/19 02/27/19 02/27/19 Range/Units 11:42 16:50 20:30 WBC (3.8-10.6) k/uL RBC (4.30-5.90) m/uL Hgb (13.0-17.5) gm/dL Hct (39.0-53.0) % MCHC (31.0-37.0) g/dL RDW (11.5-15.5) % Creatinine (0.66-1.25) mg/dL Glucose (74-99) mg/dL POC Glucose (mg/dL) 120 H 115 H 123 H (75-99) mg/dL Calcium (8.4-10.2) mg/dL 02/28/19 02/28/19 02/28/19 Range/Units 06:51 07:17 07:17 WBC 12.5 H (3.8-10.6) k/uL RBC 3.77 L (4.30-5.90) m/uL Hgb 10.4 L (13.0-17.5) gm/dL Hct 34.7 L (39.0-53.0) % MCHC 30.1 L (31.0-37.0) g/dL RDW 16.4 H (11.5-15.5) % Creatinine 0.45 L (0.66-1.25) mg/dL Glucose 112 H (74-99) mg/dL POC Glucose (mg/dL) 106 H (75-99) mg/dL Calcium 8.3 L (8.4-10.2) mg/dL Microbiology - Last 24 Hours (Table) 02/21/19 17:00 Gram Stain - Final Buttock Wound Culture - Final Methicillin resist S. aureus 02/24/19 08:39 Gram Stain - Final Abdomen Wound Culture - Final Methicillin resist S. aureus Enterococcus faecium VRE 02/21/19 16:51 Blood Culture - Final Blood No Growth after 144 hours 02/24/19 08:39 Anaerobic Culture - Final Abdomen Anaerobic Gm Negative Bacilli Anaerobic Gm Negative Bacilli#2
[2019-02-28 11:30] LABS: Glucose,Whole Blood 108 mg/dL (75-99)
--- NOTE | 2019-02-28 12:33 | P.DS ---
Providers Date of admission: 02/23/19 14:01 Expected date of discharge: 02/28/19 Attending physician: Cosme Colon Consults: 02/21/19 20:21 Consult Physician Routine Consulting Provider: Rony Woodward Consult Reason/Comments: wound Do you want consulting provider notified?: Yes Consult Physician Routine Consulting Provider: Gerald Good Consult Reason/Comments: infection Do you want consulting provider notified?: Yes Primary care physician: Dilshad Lopez [facility] Hospital Course: Chief Complaint: Fever Hospital course: This is a 82-year-old patient of Dr. Lopez. Patient was in the hospital from September 30 through October 182018. Patient then had presented with acute perforated diverticulitis. Had a sigmoid colectomy, had a drain in place with partial closure of the incision. Also had wound VAC on the lower half of the abdominal wall. Patient being followed by Dr. Woodward from general surgery and Dr. Good from infectious disease. Patient was discharged to select specialty. Patient has couple of times back and forth from [facility] to [facility]. Then was transferred to [facility]. Patient did have a colostomy in the past and had revision that was done at [facility]. Patient currently is a PEG tube for feeding. Patient's chronic stable medical conditions include gout, BPH, chronic low back pain, large sacral decubitus wound which patient had a wound VAC in place. Patient also is a large anterior abdominal wound which she's been healing with secondary intention. Patient is currently on a pured diet with assistance. Patient had been here and hospital on January 28 and patient was then transferred to [facility] where Dr. Machado team had taken care of him. patient presented here from the [facility]. The clinical picture of sepsis. Has had fever. Sacral wounds are getting worse. Also abdominal stoma has been draining. Dr. Woodward from general surgery was consulted and so was Dr. Good from [place]. -patient was only taken to the operating room. Patient's stoma wound was cleaned out. There was no deeper communication. Because of patient being lethargic patient dose of Seroquel, Lyrica was cut back. Patient became more awake. Also dose of Tye was cut back. Patient now able to carry out a conversation better. Tolerating to supervised pured diet. Seen by speech therapist. Wounds did grow MRSA. Patient did have a fistulogram that was unremarkable. Patient is getting a PICC line placed today and will then go to the ECF. . Consultation: Dr. Woodward from general surgery Dr. good from [place] Physical examination: VITAL SIGNS: 97.7, 87, 18, 134/74, 93% room air GENERAL: Laying in bed, awake. Retired EYES: Pupils equal. Conjunctiva pale HEENT: External appearance of nose and ears normal, oral cavity dry. NECK: JVD unable to assess; masses not palpable. HEART: Heart sounds irregular , no edema. LUNGS: Respiratory rate increased; decreased breath sounds. ABDOMEN: Soft, some abdominal tenderness, no guarding no rigidity, liver spleen not palpable, no masses palpable, bowel sounds present. Colostomy bag on the right side. Feeding tube . abdominal wall stoma on the left side, PSYCH: Answering questions appropriately NEUROLOGICAL: Cranial nerves grossly intact; no facial asymmetry, decreased both lower extremities, supportive boots in place DERMATOLOGICAL:: Large sacral wound stage IV, pictures in the chart Investigations reviewed in the clinical context White count 12.5 hemoglobin 10.4 creatinine 0.45 Previous testing White count 12.1 hemoglobin 11.1 L 50 Potassium 5.1 crit 0.7 lactic acid 2.2 AST 135 ALT 101 albumin 3 EKG tracing personally reviewed by me-sinus tachycardia, rate protocol block Chest x-ray film personally reviewed by me-showing underpenetration Fistulogram-contrast came back up at the abdomen C-reactive protein 87 Wound culture, from abdomen and buttocks-growing MRSA Computed tomography scan brain-nil acute Assessment: -Acute on chronic abdominal stoma wound at the site of previous colostomy, with no deeper communication., Growing MRSA -Sepsis with multiple source of infection including large decubitus sacral wound and abdominal wound that is draining, improved, growing MRSA -Acute metabolic encephalopathy likely from medications. Improved with cutting back on the dose of Lyrica, Seroquel and decreasing dose of Tye. -History of atrial flutter, -Coronary artery disease with prior history of stent and bypass -Sigmoid colectomy with a resultant colostomy -Hyperlipidemia -Essential hypertension -Primary osteoarthritis -BPH -Hypothyroidism -Chronic gout -PTSD -PEG tube feeding -Large stage IV sacral decubitus ulcer infected appearing -Normocytic anemia of chronic disease -Patient's is the DPOA, and the elder son is also the agent for medical advocate for the Disposition: Anitha Patient Condition at Discharge: Stable Plan - Discharge Summary Discharge Rx Participant: No New Discharge Prescriptions: New DAPTOmycin [Cubicin] 600 mg IVPB Q24H #42 vial HYDROcodone/APAP 7.5-325MG [Tye 7.5-325] 1 each PO Q6H PRN #12 tab PRN Reason: Moderate Pain QUEtiapine [SEROquel] 37.5 mg PO HS #3 tab metroNIDAZOLE [Flagyl] 500 mg PO TID #126 tab Continue Ezetimibe [Zetia] 10 mg PEG/G-TUBE HS@2100 Metoprolol Tartrate [Lopressor] 25 mg PEG/G-TUBE BID@0800,2100 Nitroglycerin Sl Tabs [Nitrostat] 0.4 mg SUBLINGUAL Q5M PRN PRN Reason: Chest Pain Aspirin 81 mg PEG/G-TUBE DAILY@1700 amLODIPine [Norvasc] 5 mg PEG/G-TUBE HS@2100 Ondansetron [Zofran] 4 mg PEG/G-TUBE Q6H PRN PRN Reason: Nausea Magnesium Hydroxide [Milk of Magnesia Concentrate] 7,200 mg PEG/G-TUBE DAILY PRN PRN Reason: Constipation Na Phos,M-B/Na Phos,Di-Ba [Fleet Adult] 133 ml RECTAL ONCE PRN PRN Reason: Constipation Bisacodyl [Dulcolax] 10 mg RECTAL DAILY PRN PRN Reason: Constipation Acetaminophen Tab [Tylenol] 650 mg PEG/G-TUBE Q4H PRN PRN Reason: Pain Protonix 40mg Packet 40 mg PEG/G-TUBE DAILY@0600 Triamcinolone 0.5% Cream [Kenalog 0.5% Cream] 1 applic TOPICAL BID Polyvinyl Alcohol/Povidone [Clear Eyes Natural Tears Drop] 1 drop BOTH EYES TID PRN PRN Reason: DRY EYE Ipratropium-Albuterol Nebulize [Duoneb 0.5 mg-3 mg/3 ml Soln] 3 ml INHALATION RT-QID Colchicine [Colcrys] 0.6 mg PEG/G-TUBE DAILY PRN PRN Reason: Pain INSULIN ASPART (NovoLOG) [NovoLOG (formulary)] See Protocol SQ Q6H Saliva Stimulant Agents Comb.3 [Biotene Moisturizing Mouth] 1 spray PO TID@0800,1200,1700 Nystatin 100,000Unit/gm Cream [Mycostatin Cream] 1 applic TOPICAL TID Econazole Nitrate [Econazole Nitrate 1%] 1 applic TOPICAL BID Chlorhexidine Gluconate [Peridex] 15 ml MUCOUS MEM BID Pravastatin Sodium [Pravachol] 40 mg PEG/G-TUBE HS@2100 Levothyroxine Sodium [Synthroid] 100 mcg PEG/G-TUBE DAILY@0600 Multivitamins, Thera [Multivitamin (formulary)] 1 tab PEG/G-TUBE DAILY@1700 Ferrous Sulfate [Iron] 325 mg PEG/G-TUBE DAILY@1700 Tamsulosin HCl [Flomax] 0.4 mg PEG/G-TUBE HS@2100 Enoxaparin [Lovenox] 40 mg SQ DAILY@1700 Pregabalin [Lyrica] 75 mg PEG/G-TUBE BID@0800,2100 #6 cap ALPRAZolam [Xanax] 0.5 mg PEG/G-TUBE Q8H PRN #7 tab PRN Reason: Anxiety Discontinued HYDROcodone/APAP 10-325MG [Tye 10-325] 1 tab PEG/G-TUBE Q4H PRN PRN Reason: Pain QUEtiapine [SEROquel] 50 mg PEG/G-TUBE BID@0800,2100 Levofloxacin [Levaquin] 500 mg PEG/G-TUBE DAILY@1700 Insulin Detemir (Levemir) [Levemir] 2 unit SQ HS@2100 Discharge Medication List Ezetimibe [Zetia] 10 mg PEG/G-TUBE HS@209908/14/13 [History] Metoprolol Tartrate [Lopressor] 25 mg PEG/G-TUBE BID@0800,209902/10/16 [History] Nitroglycerin Sl Tabs [Nitrostat] 0.4 mg SUBLINGUAL Q5M PRN 02/10/16 [History] Aspirin 81 mg PEG/G-TUBE DAILY@1700 04/09/16 [History] amLODIPine [Norvasc] 5 mg PEG/G-TUBE HS@209909/26/18 [History] Acetaminophen Tab [Tylenol] 650 mg PEG/G-TUBE Q4H PRN 01/27/19 [History] Bisacodyl [Dulcolax] 10 mg RECTAL DAILY PRN 01/27/19 [History] Magnesium Hydroxide [Milk of Magnesia Concentrate] 7,200 mg PEG/G-TUBE DAILY PRN 01/27/19 [History] Na Phos,M-B/Na Phos,Di-Ba [Fleet Adult] 133 ml RECTAL ONCE PRN 01/27/19 [History] Ondansetron [Zofran] 4 mg PEG/G-TUBE Q6H PRN 01/27/19 [History] Protonix 40mg Packet 40 mg PEG/G-TUBE DAILY@0600 01/27/19 [History] Chlorhexidine Gluconate [Peridex] 15 ml MUCOUS MEM BID 02/21/19 [History] Colchicine [Colcrys] 0.6 mg PEG/G-TUBE DAILY PRN 02/21/19 [History] Econazole Nitrate [Econazole Nitrate 1%] 1 applic TOPICAL BID 02/21/19 [History] Enoxaparin [Lovenox] 40 mg SQ DAILY@1700 02/21/19 [History] Ferrous Sulfate [Iron] 325 mg PEG/G-TUBE DAILY@1700 02/21/19 [History] INSULIN ASPART (NovoLOG) [NovoLOG (formulary)] See Protocol SQ Q6H 02/21/19 [History] Ipratropium-Albuterol Nebulize [Duoneb 0.5 mg-3 mg/3 ml Soln] 3 ml INHALATION RT-QID 02/21/19 [History] Levothyroxine Sodium [Synthroid] 100 mcg PEG/G-TUBE DAILY@0600 02/21/19 [History] Multivitamins, Thera [Multivitamin (formulary)] 1 tab PEG/G-TUBE DAILY@1700 02/21/19 [History] Nystatin 100,000Unit/gm Cream [Mycostatin Cream] 1 applic TOPICAL TID 02/21/19 [History] Polyvinyl Alcohol/Povidone [Clear Eyes Natural Tears Drop] 1 drop BOTH EYES TID PRN 02/21/19 [History] Pravastatin Sodium [Pravachol] 40 mg PEG/G-TUBE HS@2100 02/21/19 [History] Saliva Stimulant Agents Comb.3 [Biotene Moisturizing Mouth] 1 spray PO TID@0800,1200,1700 02/21/19 [History] Tamsulosin HCl [Flomax] 0.4 mg PEG/G-TUBE HS@2100 02/21/19 [History] Triamcinolone 0.5% Cream [Kenalog 0.5% Cream] 1 applic TOPICAL BID 02/21/19 [History] ALPRAZolam [Xanax] 0.5 mg PEG/G-TUBE Q8H PRN #7 tab 02/28/19 [Rx] DAPTOmycin [Cubicin] 600 mg IVPB Q24H #42 vial 02/28/19 [Rx] HYDROcodone/APAP 7.5-325MG [Tye 7.5-325] 1 each PO Q6H PRN #12 tab 02/28/19 [Rx] Pregabalin [Lyrica] 75 mg PEG/G-TUBE BID@0800,2100 #6 cap 02/28/19 [Rx] QUEtiapine [SEROquel] 37.5 mg PO HS #3 tab 02/28/19 [Rx] metroNIDAZOLE [Flagyl] 500 mg PO TID #126 tab 02/28/19 [Rx] Follow up Appointment(s)/Referral(s): Dilshad Lopez DO [Primary Care Provider] - 1-2 days Rony Woodward MD [STAFF PHYSICIAN] - 1 Week Activity/Diet/Wound Care/Special Instructions: Settings for woundvac: 120mmhg
[2019-02-28] MEDS ORDERED: LIDOCAINE 1% INJ 10MG/ML (20 ML MDV) ONE (12:45)
--- NOTE | 2019-02-28 12:45 | PN ---
PROGRESS NOTE DATE OF SERVICE: 02/28/2019 REASON FOR FOLLOWUP: 1. Abdominal wall abscess. 2. Infected sacral pressure ulcer. INTERVAL HISTORY: The patient is currently afebrile. Patient is breathing comfortably. Denies having any chest pain or cough. No abdominal pain or any diarrhea reported. PHYSICAL EXAMINATION: Blood pressure 134/74 with a pulse of 87, temperature 97.7. He is 93% on room air. General description is an elderly male lying in bed in no distress. RESPIRATORY SYSTEM: Unlabored breathing, clear to auscultation anteriorly. HEART: S1, S2. Regular rate and rhythm. ABDOMEN: Soft. Abdominal wound currently minimal drainage on the dressing. LABS: Hemoglobin 10.4, white count 12.5, creatinine 0.45. DIAGNOSTIC IMPRESSION AND PLAN: 1. Patient with abdominal wall abscess, status post surgery. Culture with VRE and MRSA. The patient is covered with daptomycin. 2. The patient with stage IV sacral pressure ulcer. The patient's local wound care to continue with the wound VAC and antibiotic in form of daptomycin. The patient is currently getting it at daily along with oral Flagyl 500 mg every 8 hours to continue for total of 6 weeks with close outpatient followup. MMODL / IJN: [id number] /
[2019-02-28] MEDS ORDERED: LIDOCAINE 1% INJ 10MG/ML (20 ML MDV) SQ ONE (12:47)
[2019-02-28] MEDS ORDERED: ALPRAZolam 0.5 MG TAB PO STA (15:31)
[2019-03-02] MEDS ORDERED: LEVOTHYROXINE 100 MCG TAB PEG/G-TUBE SCH (06:00)
== END 2019-02-28 16:25 | DRG 856 ==
LOC: EC 16:19 → 4SSUR 20:22 → OBSVTOIN 02-23 14:01
PROVIDERS: ADMIT Hospitalist; ATTEND Hospitalist
PROC: 0JB80ZZ Excision of Abdomen Subcutaneous Tissue and Fascia, Open Approach (ICD-10-PCS; principal; 2019-02-24 07:30)
DX: T81.49XA Infection following a procedure, other surgical site, initial encounter (principal); L89.154 Pressure ulcer of sacral region, stage 4; A41.81 Sepsis due to Enterococcus; A41.02 Sepsis due to Methicillin resistant Staphylococcus aureus; R65.20 Severe sepsis without septic shock; G92 Toxic encephalopathy; K94.02 Colostomy infection; E87.2 Acidosis; M46.28 Osteomyelitis of vertebra, sacral and sacrococcygeal region; Y83.3 Surgical operation with formation of external stoma as the cause of abnormal reaction of the patient, or of later complication, without mention of misadventure at the time of the procedure; D63.8 Anemia in other chronic diseases classified elsewhere; E03.9 Hypothyroidism, unspecified; E78.5 Hyperlipidemia, unspecified; F43.10 Post-traumatic stress disorder, unspecified; G89.29 Other chronic pain; T50.915A Adverse effect of multiple unspecified drugs, medicaments and biological substances, initial encounter; I10 Essential (primary) hypertension; I25.10 Atherosclerotic heart disease of native coronary artery without angina pectoris; I25.2 Old myocardial infarction; I48.91 Unspecified atrial fibrillation; M19.91 Primary osteoarthritis, unspecified site; M1A.9XX0 Chronic gout, unspecified, without tophus (tophi); M81.0 Age-related osteoporosis without current pathological fracture; N40.0 Benign prostatic hyperplasia without lower urinary tract symptoms; Z79.4 Long term (current) use of insulin; Z79.82 Long term (current) use of aspirin; Z79.899 Other long term (current) drug therapy; Z82.49 Family history of ischemic heart disease and other diseases of the circulatory system; Z87.891 Personal history of nicotine dependence; Z90.49 Acquired absence of other specified parts of digestive tract; Z90.79 Acquired absence of other genital organ(s); Z98.42 Cataract extraction status, left eye; Z98.41 Cataract extraction status, right eye; Z95.1 Presence of aortocoronary bypass graft; Z95.5 Presence of coronary angioplasty implant and graft; Z74.01 Bed confinement status; L30.9 Dermatitis, unspecified; Z87.01 Personal history of pneumonia (recurrent); Z93.1 Gastrostomy status; M54.5 Low back pain
CPT/HCPCS: 20501; 36415; 36573; 70450; 71045; 71260; 74177; 76080; 80048; 80053; 80202; 81001; 82565; 83036; 83605; 85025; 85027; 85610; 85652; 85730; 86140; 87040; 87070; 87075; 87077; 87186; 87205; 87502; 93005; 94640; 96361; 96365; 96366; 99285

== ENCOUNTER 2019-04-25 13:34 | Inpatient (IN) | payer MEDICARE, OTHER ==
--- NOTE | 2019-04-25 14:00 | ED ---
General Adult HPI - General Chief complaint: Abdominal Pain Stated complaint: Bowel infection Time Seen by Provider: 04/25/19 13:40 Source: patient, EMS, RN notes reviewed Mode of arrival: EMS Limitations: physical limitation - History of Present Illness Initial comments: Patient is a pleasant 83-year-old male presenting to the emergency Department with complaints of possible infection. Patient did have colostomy with revision. Patient states that has had decreased output. Patient's old site is having some drainage that was tested for MRSA. Patient was sent with request for surgical and GI evaluation and probable antibiotics. Patient states he feels fine and has no complaints at this time. Patient denies fever. - Related Data Home Medications Medication Instructions Recorded Confirmed Ezetimibe [Zetia] 10 mg PEG/G-TUBE HS@2100 08/14/13 02/21/19 Metoprolol Tartrate [Lopressor] 25 mg PEG/G-TUBE BID@0800,2100 02/10/16 02/21/19 Nitroglycerin Sl Tabs [Nitrostat] 0.4 mg SUBLINGUAL Q5M PRN 02/10/16 02/21/19 Aspirin 81 mg PEG/G-TUBE DAILY@1700 04/09/16 02/21/19 amLODIPine [Norvasc] 5 mg PEG/G-TUBE HS@2100 09/26/18 02/21/19 Acetaminophen Tab [Tylenol] 650 mg PEG/G-TUBE Q4H PRN 01/27/19 02/21/19 Bisacodyl [Dulcolax] 10 mg RECTAL DAILY PRN 01/27/19 02/21/19 Magnesium Hydroxide [Milk of 7,200 mg PEG/G-TUBE DAILY PRN 01/27/19 02/21/19 Magnesia Concentrate] Na Phos,M-B/Na Phos,Di-Ba [Fleet 133 ml RECTAL ONCE PRN 01/27/19 02/21/19 Adult] Ondansetron [Zofran] 4 mg PEG/G-TUBE Q6H PRN 01/27/19 02/21/19 Protonix 40mg Packet 40 mg PEG/G-TUBE DAILY@0600 01/27/19 02/21/19 Chlorhexidine Gluconate [Peridex] 15 ml MUCOUS MEM BID 02/21/19 02/21/19 Colchicine [Colcrys] 0.6 mg PEG/G-TUBE DAILY PRN 02/21/19 02/21/19 Econazole Nitrate [Econazole 1 applic TOPICAL BID 02/21/19 02/21/19 Nitrate 1%] Enoxaparin [Lovenox] 40 mg SQ DAILY@1700 02/21/19 02/21/19 Ferrous Sulfate [Iron] 325 mg PEG/G-TUBE DAILY@1700 02/21/19 02/21/19 INSULIN ASPART (NovoLOG) [NovoLOG See Protocol SQ Q6H 02/21/19 02/21/19 (formulary)] Ipratropium-Albuterol Nebulize 3 ml INHALATION RT-QID 02/21/19 02/21/19 [Duoneb 0.5 mg-3 mg/3 ml Soln] Levothyroxine Sodium [Synthroid] 100 mcg PEG/G-TUBE DAILY@0600 02/21/19 02/21/19 Multivitamins, Thera [Multivitamin 1 tab PEG/G-TUBE DAILY@1700 02/21/19 02/21/19 (formulary)] Nystatin 100,000Unit/gm Cream 1 applic TOPICAL TID 02/21/19 02/21/19 [Mycostatin Cream] Polyvinyl Alcohol/Povidone [Clear 1 drop BOTH EYES TID PRN 02/21/19 02/21/19 Eyes Natural Tears Drop] Pravastatin Sodium [Pravachol] 40 mg PEG/G-TUBE HS@2100 02/21/19 02/21/19 Saliva Stimulant Agents Comb.3 1 spray PO TID@0800,1200,1700 02/21/19 02/21/19 [Biotene Moisturizing Mouth] Tamsulosin HCl [Flomax] 0.4 mg PEG/G-TUBE HS@2100 02/21/19 02/21/19 Triamcinolone 0.5% Cream [Kenalog 1 applic TOPICAL BID 02/21/19 02/21/19 0.5% Cream] Previous Rx's Medication Instructions Recorded ALPRAZolam [Xanax] 0.5 mg PEG/G-TUBE Q8H PRN #7 tab 02/28/19 DAPTOmycin [Cubicin] 600 mg IVPB Q24H #42 vial 02/28/19 HYDROcodone/APAP 7.5-325MG [[place] 1 each PO Q6H PRN #12 tab 02/28/19 7.5-325] Pregabalin [Lyrica] 75 mg PEG/G-TUBE BID@0800,2100 #6 02/28/19 cap QUEtiapine [SEROquel] 37.5 mg PO HS #3 tab 02/28/19 metroNIDAZOLE [Flagyl] 500 mg PO TID #126 tab 02/28/19 Allergies Allergy/AdvReac Type Severity Reaction Status Date / Time No Known Allergies Allergy Verified 02/21/19 20:59 Review of Systems ROS Statement: Those systems with pertinent positive or pertinent negative responses have been documented in the HPI. ROS Other: All systems not noted in ROS Statement are negative. Constitutional: Denies: fever Eyes: Denies: eye pain ENT: Denies: ear pain Respiratory: Denies: cough Cardiovascular: Denies: chest pain Endocrine: Denies: fatigue Gastrointestinal: Denies: abdominal pain, nausea, vomiting Genitourinary: Denies: dysuria Musculoskeletal: Denies: back pain Skin: Denies: rash Neurological: Denies: weakness Past Medical History Past Medical History: Atrial Fibrillation, Atrial Flutter, Coronary Artery Disease (CAD), Chest Pain / Angina, Hyperlipidemia, Hypertension, Myocardial Infarction (PR), Osteoarthritis (OA), Prostate Disorder, Skin Disorder, Thyroid Disorder Additional Past Medical History / Comment(s): Diverticulitis, HX PERFORATION. Gout. Eczema. BPH. Chronic Back Pain D/T PINCHED NERVE, has been bedridden since September. HX VERTIGO. FOOD GETTING STUCK IN THROAT - REMOVAL X3. Last Myocardial Infarction Date:: 08/2015 History of Any Multi-Drug Resistant Organisms: MRSA, VRE Date of last positivie culture/infection: 02/24/19 VRE & MRSA MDRO Source:: Abdomen Past Surgical History: Bowel Resection, Cardiac Ablation, Coronary Bypass/CABG, Heart Catheterization With Stent, Tonsillectomy Additional Past Surgical History / Comment(s): 02/11/16 Cardiac stent to SVG to diagonal; TOTAL 3 NOW. CABG X3 0n 07/11/15. CYST REMOVED FROM HEART 1958; LEFT TESTICLE REMOVED; МАРИНА [employer]S. EGD W/ REMOVAL FB X3. Ostomy which failed, and redone. Colostomy since September 2018. Issues with sepsis since. 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 Past Anesthesia/Blood Transfusion Reactions: No Reported Reaction Additional Past Anesthesia/Blood Transfusion Reaction / Comment(s): no family hx Date of Last Stent Placement:: 02/11/16 Past Psychological History: PTSD Smoking Status: Never smoker Past Alcohol Use History: None Reported Past Drug Use History: None Reported - Past Family History Mother Family Medical History: Unable to Obtain Additional Family Medical History / Comment(s): Mother had a pacemaker. Father History Unknown: Yes Family Medical History: Myocardial Infarction (PR) General Exam Limitations: physical limitation General appearance: alert, in no apparent distress Head exam: Present: normocephalic Eye exam: Present: normal appearance, PERRL ENT exam: Present: normal oropharynx Neck exam: Present: normal inspection Respiratory exam: Present: normal lung sounds bilaterally Cardiovascular Exam: Present: regular rate, normal rhythm GI/Abdominal exam: Present: soft, diminished bowel sounds, other (Ostomy site on the right does have minimal stool present. Old ostomy site does have mild drainage.). Absent: distended, tenderness Extremities exam: Present: other (Atrophy legs) Neurological exam: Present: alert Psychiatric exam: Present: normal affect, normal mood Skin exam: Present: normal color Course Vital Signs 04/25/19 04/25/19 13:43 15:09 Temperature 99.0 F Pulse Rate 82 78 Respiratory 18 18 Rate Blood Pressure 109/64 110/61 O2 Sat by Pulse 97 96 Oximetry Medical Decision Making - Medical Decision Making Patient reevaluated. Patient and family updated. Case discussed in detail with Dr. Colon, who will admit, for Dr. Lopez. Case also discussed with Dr. Woodward who will consult. Computed tomography scan of the ordered. IV antibiotics will be ordered. - Lab Data Result diagrams: 04/25/19 13:54 04/25/19 13:54 Lab Results 04/25/19 04/25/19 04/25/19 Range/Units 13:54 13:54 13:54 WBC 7.5 (3.8-10.6) k/uL RBC 4.66 (4.30-5.90) m/uL Hgb 13.1 (13.0-17.5) gm/dL Hct 42.5 (39.0-53.0) % MCV 91.0 (80.0-100.0) fL MCH 28.1 (25.0-35.0) pg MCHC 30.9 L (31.0-37.0) g/dL RDW 17.4 H (11.5-15.5) % Plt Count 248 (150-450) k/uL Neutrophils % 74 % Lymphocytes % 9 % Monocytes % 7 % Eosinophils % 6 % Basophils % 2 % Neutrophils # 5.5 (1.3-7.7) k/uL Lymphocytes # 0.7 L (1.0-4.8) k/uL Monocytes # 0.5 (0-1.0) k/uL Eosinophils # 0.5 (0-0.7) k/uL Basophils # 0.1 (0-0.2) k/uL Anisocytosis Slight PT (9.0-12.0) sec INR (<1.2) APTT (22.0-30.0) sec Sodium 137 (137-145) mmol/L Potassium 4.2 (3.5-5.1) mmol/L Chloride 101 (98-107) mmol/L Carbon Dioxide 28 (22-30) mmol/L Anion Gap 8 mmol/L BUN 24 H (9-20) mg/dL Creatinine 0.63 L (0.66-1.25) mg/dL Est GFR (CKD-EPI)AfAm >90 (>60 ml/min/1.73 sqM) Est GFR (CKD-EPI)NonAf >90 (>60 ml/min/1.73 sqM) Glucose 140 H (74-99) mg/dL Plasma Lactic Acid Alexey 2.2 H* (0.7-2.0) mmol/L Calcium 9.3 (8.4-10.2) mg/dL Total Bilirubin 0.4 (0.2-1.3) mg/dL AST 73 H (17-59) U/L ALT 41 (4-49) U/L Alkaline Phosphatase 128 H (38-126) U/L Total Protein 7.1 (6.3-8.2) g/dL Albumin 3.4 L (3.5-5.0) g/dL Urine Color Urine Appearance (Clear) Urine pH (5.0-8.0) Ur Specific [place] (1.001-1.035) Urine Protein (Negative) Urine Glucose (UA) (Negative) Urine Ketones (Negative) Urine Blood (Negative) Urine Nitrite (Negative) Urine Bilirubin (Negative) Urine Urobilinogen (<2.0) mg/dL Ur Leukocyte Esterase (Negative) Urine RBC (0-5) /hpf Urine WBC (0-5) /hpf Urine WBC Clumps (None) /hpf Triple Phos Crystals (None) /hpf Amorphous Sediment (None) /hpf Urine Bacteria (None) /hpf Urine Mucus (None) /hpf Urine Yeast (Budding) (None) /hpf Influenza Type A RNA (Not Detectd) Influenza Type B (PCR) (Not Detectd) 04/25/19 04/25/19 04/25/19 Range/Units 13:54 13:54 13:54 WBC (3.8-10.6) k/uL RBC (4.30-5.90) m/uL Hgb (13.0-17.5) gm/dL Hct (39.0-53.0) % MCV (80.0-100.0) fL MCH (25.0-35.0) pg MCHC (31.0-37.0) g/dL RDW (11.5-15.5) % Plt Count (150-450) k/uL Neutrophils % % Lymphocytes % % Monocytes % % Eosinophils % % Basophils % % Neutrophils # (1.3-7.7) k/uL Lymphocytes # (1.0-4.8) k/uL Monocytes # (0-1.0) k/uL Eosinophils # (0-0.7) k/uL Basophils # (0-0.2) k/uL Anisocytosis PT 11.2 (9.0-12.0) sec INR 1.1 (<1.2) APTT 22.9 (22.0-30.0) sec Sodium (137-145) mmol/L Potassium (3.5-5.1) mmol/L Chloride (98-107) mmol/L Carbon Dioxide (22-30) mmol/L Anion Gap mmol/L BUN (9-20) mg/dL Creatinine (0.66-1.25) mg/dL Est GFR (CKD-EPI)AfAm (>60 ml/min/1.73 sqM) Est GFR (CKD-EPI)NonAf (>60 ml/min/1.73 sqM) Glucose (74-99) mg/dL Plasma Lactic Acid Alexey (0.7-2.0) mmol/L Calcium (8.4-10.2) mg/dL Total Bilirubin (0.2-1.3) mg/dL AST (17-59) U/L ALT (4-49) U/L Alkaline Phosphatase (38-126) U/L Total Protein (6.3-8.2) g/dL Albumin (3.5-5.0) g/dL Urine Color Yellow Urine Appearance Turbid (Clear) Urine pH 8.5 H (5.0-8.0) Ur Specific [place] 1.017 (1.001-1.035) Urine Protein 1+ H (Negative) Urine Glucose (UA) Negative (Negative) Urine Ketones Negative (Negative) Urine Blood Trace H (Negative) Urine Nitrite Positive (Negative) Urine Bilirubin Negative (Negative) Urine Urobilinogen <2.0 (<2.0) mg/dL Ur Leukocyte Esterase Large H (Negative) Urine RBC 12 H (0-5) /hpf Urine WBC 22 H (0-5) /hpf Urine WBC Clumps Rare H (None) /hpf Triple Phos Crystals Few H (None) /hpf Amorphous Sediment Rare H (None) /hpf Urine Bacteria Few H (None) /hpf Urine Mucus Rare H (None) /hpf Urine Yeast (Budding) Few H (None) /hpf Influenza Type A RNA Not Detected (Not Detectd) Influenza Type B (PCR) Not Detected (Not Detectd) Disposition Clinical Impression: Wound infection Disposition: ADMITTED IP TO THIS HOSP Is patient prescribed a controlled substance at d/c from ED?: No Referrals: Dilshad Lopez DO [Primary Care Provider] - 1-2 days Decision Time: 15:46
[2019-04-25 14:27] LABS: Anisocytosis Slight; Basophils # (A) 0.1 k/uL (0-0.2); Basophils % (A) 2 %; Eosinophils # (A) 0.5 k/uL (0-0.7); Eosinophils % (A) 6 %; HCT 42.5 % (39.0-53.0); HGB 13.1 gm/dL (13.0-17.5); Lymphocytes # (A) 0.7 k/uL (1.0-4.8); Lymphocytes % (A) 9 %; MCH 28.1 pg (25.0-35.0); MCHC 30.9 g/dL (31.0-37.0); Mean Platelet Volume 7.5; Monocytes # (A) 0.5 k/uL (0-1.0); Monocytes % (A) 7 %; Neutrophils # (A) 5.5 k/uL (1.3-7.7); Neutrophils % (A) 74 %; Platelet Count 248 k/uL (150-450); RBC 4.66 m/uL (4.30-5.90); RDW 17.4 % (11.5-15.5); WBC 7.5 k/uL (3.8-10.6)
[2019-04-25 14:33] LABS: INR 1.1 (<1.2); Partial Thromboplastin Time 22.9 sec (22.0-30.0); Prothrombin Time 11.2 sec (9.0-12.0)
[2019-04-25 14:39] LABS: ALT 41 U/L (4-49); AST 73 U/L (17-59); African American GFR (CKD) >90 (>60 ml/min/1.73 sqM); Albumin 3.4 g/dL (3.5-5.0); Alkaline Phosphatase 128 U/L (38-126); Anion Gap 8 mmol/L; Blood Urea Nitrogen 24 mg/dL (9-20); Calcium 9.3 mg/dL (8.4-10.2); Carbon Dioxide 28 mmol/L (22-30); Chloride 101 mmol/L (98-107); Glucose 140 mg/dL (74-99); Non-African American GFR(CKD) >90 (>60 ml/min/1.73 sqM); Potassium 4.2 mmol/L (3.5-5.1); Sodium 137 mmol/L (137-145); Total Bilirubin 0.4 mg/dL (0.2-1.3); Total Protein 7.1 g/dL (6.3-8.2)
[2019-04-25 14:40] LABS: Amorphous Sediment,Urine Rare /hpf; Appearance,Urine Turbid (Clear); Bacteria,Urine Few /hpf; Bilirubin,Urine Negative (Negative); Blood,Urine Trace (Negative); Budding Yeast,Urine Few /hpf; Color,Urine Yellow; Glucose,Urine (UA) Negative (Negative); Ketones,Urine Negative (Negative); Leukocyte Esterase,Urine Large (Negative); Mucus,Urine Rare /hpf; Nitrite,Urine Positive (Negative); PH, Urine 8.5 (5.0-8.0); Protein,Urine 1+ (Negative); RBC,Urine 12 /hpf (0-5); Specific Gravity,Urine 1.017 (1.001-1.035); Triple Phosphate Crystal,Urine Few /hpf; Urobilinogen,Urine <2.0 mg/dL (<2.0); WBC,Urine 22 /hpf (0-5)
[2019-04-25] MEDS ORDERED: LORazepam 2 MG/ML INJ IV STA (14:52)
--- NOTE | 2019-04-25 15:10 | XR ---
EXAMINATION TYPE: XR chest 2V DATE OF EXAM: 04/25/2019 COMPARISON: Chest x-ray and CT chest February 21, 2019 HISTORY: Fever. TECHNIQUE: Frontal and lateral views of the chest are obtained. FINDINGS: There is chronic parenchymal change without definitive new suspicious focal air space opac ity, pleural effusion, or pneumothorax seen. Low lung volumes redemonstrated. Lateral view suboptimal due to underpenetration probably related to large body habitus. The cardiac silhouette size remains enlarged. Post-CABG changes with mediastinal clips and sternal wires redemonstrated. The osseous str uctures are intact. IMPRESSION: Chronic changes, low lung volumes, and cardiomegaly without definitive new suspicious fo florian infiltrate .
[2019-04-25] MEDS ORDERED: PIPERACILLIN-TAZOBACTAM 3.375 GM in SODIUM CHLORIDE 0.9% 100 ML IVPB STA (15:46)
[2019-04-25] MEDS ORDERED: IOPAMIDOL CONTRAST (ORAL USE) VIAL PO PRN (15:46)
[2019-04-25] MEDS ORDERED: VANCOMYCIN IV PER PHARMACY 1 EACH MISC MISCELLANE PRN (15:47)
[2019-04-25] MEDS ORDERED: NALOXONE 0.4 MG/ML 1 ML VIAL IV PRN (15:49)
[2019-04-25] MEDS ORDERED: SODIUM CHLORIDE 0.9% 1,000 ML IV STA (15:58)
[2019-04-25] MEDS ORDERED: VANCOMYCIN 1,750 MG in SODIUM CHLORIDE 0.9% 500 ML 500 ML IVPB ONE (16:00)
[2019-04-25] MEDS: SODIUM CHLORIDE 0.9% 1,000 ML IV SCH (16:14)
--- NOTE | 2019-04-25 19:03 | CT ---
EXAMINATION TYPE: CT abdomen pelvis wo con DATE OF EXAM: 04/25/2019 COMPARISON: 02/21/2019 HISTORY: Wound infection. No output from ostomy. CT DLP: 1174.4 mGycm Automated exposure control for dose reduction was used. Multiple axial sections were obtained from the diaphragm to the floor the pelvis with oral contrast o nly. There is some pleural thickening and atelectasis at both lung bases. Heart is enlarged. Liver shows no focal defect. Gallbladder appears normal. Spleen is intact. There is no pancreatic mas s. Gallbladder is distended and measures 4 cm in diameter. There is gastrostomy tube noted. Tube appe ars in good position. There is normal contrast opacification of the small bowel. There is broad-based ventral hernia in the mid abdomen. There is colostomy in the right upper quadrant. I see no dilated loops. There is no madyson e air. There is no ascites. Bladder distends smoothly. There is Bishop catheter in the bladder. There is no inguinal hernia. There is no evidence of a pelvic mass. There is apparent loop colostomy in the left lower quadrant involving the descending colon. There is irregular margins of the stoma. There i s 3 cm defect in the subcutaneous tissues at the colostomy. Lumbar vertebra appear intact. There is degenerative disc space narrowing in the lumbar spine. Bony p jenn is intact. IMPRESSION: There is patchy infiltrate and atelectasis at the lung bases unchanged. Cardiomegaly unchanged. Functioning right upper quadrant colostomy without evidence of a bowel obstruction. There is Loop colostomy in the left lower quadrant with wound dehiscence that is new compared to old CT scan. No evidence of an abscess.
[2019-04-25] MEDS: VANCOMYCIN 1,750 MG in SODIUM CHLORIDE 0.9% 500 ML 500 ML IVPB SCH (22:30)
[2019-04-26] MEDS: SODIUM CHLORIDE 0.9% 1,000 ML IV SCH ×2 (00:34→08:58)
[2019-04-26] MEDS: PIPERACILLIN-TAZOBACTAM 3.375 GM in SODIUM CHLORIDE 0.9% 100 ML IVPB SCH ×2 (00:34→10:33)
[2019-04-26] MEDS ORDERED: ACETAMINOPHEN TAB 325 MG TAB PEG/G-TUBE PRN (05:25)
[2019-04-26] MEDS ORDERED: HYDROcodone/APAP 10-325MG 1 EACH TAB PEG/G-TUBE PRN (05:25)
[2019-04-26] MEDS ORDERED: ONDANSETRON 4 MG TAB PEG/G-TUBE PRN (05:25)
[2019-04-26] MEDS ORDERED: POLYVINYL ALCOHOL BOTH EYES PRN (05:25)
[2019-04-26] MEDS ORDERED: COLCHICINE 0.6 MG EACH PEG/G-TUBE PRN (05:25)
[2019-04-26] MEDS ORDERED: NITROGLYCERIN SL TABS 0.4 MG TAB SUBLINGUAL PRN (05:25)
[2019-04-26] MEDS ORDERED: POVIDONE BOTH EYES PRN (05:25)
[2019-04-26] MEDS ORDERED: PANTOPRAZOLE SODIUM 40 MG GRANULE PKT PEG/G-TUBE SCH (06:00)
[2019-04-26] MEDS ORDERED: LEVOTHYROXINE 100 MCG TAB PEG/G-TUBE SCH (06:00)
[2019-04-26] MEDS ORDERED: VANCOMYCIN 1,750 MG in SODIUM CHLORIDE 0.9% 500 ML 500 ML IVPB SCH (06:00)
[2019-04-26] MEDS: ALPRAZolam 0.5 MG TAB PEG/G-TUBE PRN ×2 (06:17→12:59)
[2019-04-26] MEDS ORDERED: SALIVA STIMULANT AGENTS COMB PO SCH (08:00)
[2019-04-26] MEDS ORDERED: PREGABALIN 75 MG CAP PEG/G-TUBE SCH (08:00)
[2019-04-26] MEDS ORDERED: METOPROLOL TARTRATE 25 MG TAB PEG/G-TUBE SCH (08:00)
[2019-04-26] MEDS ORDERED: CHLORHEXIDINE GLUCONATE 15 ML CUP MUCOUS MEM SCH (08:00)
[2019-04-26] MEDS ORDERED: NON FORMULARY DRUG (Lactose-Reduced Food [Ensure Plus] 120 ML) PEG/G-TUBE SCH (08:00)
[2019-04-26 08:03] VITALS: BP 138/81; PULSE 99; RESP 17; TEMP 97.5
[2019-04-26] MEDS: VANCOMYCIN 1,750 MG in SODIUM CHLORIDE 0.9% 500 ML 500 ML IVPB SCH (08:59)
[2019-04-26] MEDS ORDERED: NYSTATIN 100,000UNIT/GM CREAM 30 GM TUBE TOPICAL SCH (09:00)
[2019-04-26] MEDS ORDERED: TRIAMCINOLONE ACET 0.5% CREAM 15 GM TUBE TOPICAL SCH (09:00)
[2019-04-26] MEDS: IPRATROPIUM-ALBUTEROL 3 ML NEB INHALATION SCH ×3 (09:05→13:26)
[2019-04-26] MEDS ORDERED: SODIUM HYPOCHLORITE 0.25% 480 ML BOT MISCELLANE SCH (10:15)
[2019-04-26] MEDS ORDERED: CLOTRIMAZOLE 1% CREAM 15 GM TUBE TOPICAL SCH (10:15)
[2019-04-26] MEDS ORDERED: DRONABINOL 2.5 MG CAPSULE PO SCH (12:00)
--- NOTE | 2019-04-26 12:58 | P.HPIM ---
History of Present Illness H&P Date: 04/26/19 Chief Complaint: Wound culture MRSA Hospital course: This is a 82-year-old patient of Dr. Lopez. Patient was in the hospital from September 30 through October 182018. Patient then had presented with acute perforated diverticulitis. Had a sigmoid colectomy, had a drain in place with partial closure of the incision. Also had wound VAC on the lower half of the abdominal wall. Patient being followed by Dr. Woodward from general surgery and Dr. Good from infectious disease. Patient was discharged to select specialty. Patient has couple of times back and forth from select specialties to [facility]. Then was transferred to [facility]. Patient did have a colostomy in the past and had revision that was done at [facility]. Patient's chronic stable medical conditions include gout, BPH, chronic low back pain, large sacral decubitus wound which patient had a wound VAC in place. Patient also had anterior abdominal wound which she's been healing with secondary intention. Patient had been here and hospital on January 28 and patient was then transferred to [facility] where Dr. Machado team had taken care of him. Patient was here from February 23 through 02/28/2019. Had a fistulogram. That was okay. Sacral wound was debrided. Treated with antibiotics. Patient is presented after the wound culture was growing MRSA. Patient's been tolerating a diet by mouth. Some of the medication through the PEG tube. No fever no chills. Brought in from [facility]. Review of systems: GEN.: Tired EYES: None HEENT: None NECK: None RESPIRATORY: None CARDIOVASCULAR: None GASTROINTESTINAL: PEG tube in place GENITOURINARY: None MUSCULOSKELETAL: Some joint pains LYMPHATICS: None HEMATOLOGICAL: None PSYCHIATRY: None NEUROLOGICAL: Generalized weakness Past medical history: Coronary artery disease with stent and bypass, atrial flutter, hypertension, hyperlipidemia, osteoporosis status, BPH, hypothyroid, sigmoid diverticulitis with perforation, intra-abdominal abscess, gout, PTSD, colostomy, pneumonia, Social history: Patient is an ex-[employer] . Did smoke a pipe and cigar stopped 1971. Did recently has been between select specialty at [facility]. Currently at rehab at [facility]. Physical examination: VITAL SIGNS: 99, 82, 18, 109/64, 97% on room air GENERAL: Laying in bed, awake. Comfortable EYES: Pupils equal. Conjunctiva pale HEENT: External appearance of nose and ears normal, oral cavity dry. NECK: JVD unable to assess; masses not palpable. HEART: Heart sounds irregular , no edema. LUNGS: Respiratory rate normal; decreased breath sounds. ABDOMEN: Soft, no tenderness, no guarding no rigidity, liver spleen not palpable, no masses palpable, bowel sounds present. Colostomy bag on the right side. Feeding tube . abdominal wall stoma on the left side, superficial wound with dressing healing well PSYCH: Answering questions appropriately NEUROLOGICAL: Cranial nerves grossly intact; no facial asymmetry, decreased both lower extremities, supportive boots in place DERMATOLOGICAL:: Large sacral wound stage IV, Investigations reviewed in the clinical context White count 7.5 hemoglobin 13.1 potassium 4.2 bun 24 creatinine 0.63 Influenza type A and type B both negative EKG tracing personally reviewed by me shows-right bundle-branch block, sinus rhythm Assessment: -Abdominal wound growing MRSA. Clinically healing well. Has grown MRSA in the past. No fever no chills. -large decubitus sacral wound and abdominal wound, chronic stable -Right bundle-branch block -Paroxysmal atrial flutter, currently sinus rhythm -Coronary artery disease with prior history of stent and bypass -Sigmoid colectomy with a resultant colostomy -Hyperlipidemia -Essential hypertension -Primary osteoarthritis -BPH -Hypothyroidism -Chronic gout -PTSD -PEG tube feeding -Large stage IV sacral decubitus ulcer, POA -Normocytic anemia of chronic disease -Patient's is the DPOA, and the elder son is also the agent for medical advocate for the Plan: Home medications resumed. Patient's abdominal wound appears to be healing rather well. Consultations have been made to Dr. Woodward from general surgery and Dr. good from ID. Oral diet to continue. Past Medical History Past Medical History: Atrial Fibrillation, Atrial Flutter, Coronary Artery Disease (CAD), Chest Pain / Angina, Hyperlipidemia, Hypertension, Myocardial Infarction (TX), Osteoarthritis (OA), Prostate Disorder, Skin Disorder, Thyroid Disorder Additional Past Medical History / Comment(s): Diverticulitis, HX PERFORATION. Gout. Eczema. BPH. Chronic Back Pain D/T PINCHED NERVE, has been bedridden since September. HX VERTIGO. FOOD GETTING STUCK IN THROAT - REMOVAL X3. Last Myocardial Infarction Date:: 08/2015 History of Any Multi-Drug Resistant Organisms: MRSA, VRE Date of last positivie culture/infection: 02/24/19 VRE & MRSA MDRO Source:: Abdomen Past Surgical History: Bowel Resection, Cardiac Ablation, Coronary Bypass/CABG, Heart Catheterization With Stent, Tonsillectomy Additional Past Surgical History / Comment(s): 02/11/16 Cardiac stent to SVG to diagonal; TOTAL 3 NOW. CABG X3 0n 07/11/15. CYST REMOVED FROM HEART 1958; LEFT TESTICLE REMOVED; [employer]. EGD W/ REMOVAL FB X3. Ostomy which failed, and redone. Colostomy since September 2018. Issues with sepsis since. At [facility] family was told Rene had a VAP which was drug resistant, unsure of type, November 2018. 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 Smoking Status: Never smoker Past Alcohol Use History: None Reported Additional Past Alcohol Use History / Comment(s): Hx cigar/pipe smoker from teen. quit smoking 1972 Past Drug Use History: None Reported - Past Family History Mother Family Medical History: Unable to Obtain Additional Family Medical History / Comment(s): Mother had a pacemaker. Father History Unknown: Yes Family Medical History: Myocardial Infarction ([place]) Medications and Allergies Home Medications Medication Instructions Recorded Confirmed Type Ezetimibe [Zetia] 10 mg PEG/G-TUBE HS@209908/14/13 04/25/19 History Metoprolol Tartrate [Lopressor] 25 mg PEG/G-TUBE BID@0800,2100 02/10/16 04/25/19 History Nitroglycerin Sl Tabs [Nitrostat] 0.4 mg PEG/G-TUBE Q5M PRN 02/10/16 04/25/19 History Aspirin 81 mg PEG/G-TUBE DAILY@1700 04/09/16 04/25/19 History amLODIPine [Norvasc] 5 mg PEG/G-TUBE HS@209909/26/18 04/25/19 History Acetaminophen Tab [Tylenol] 650 mg PEG/G-TUBE Q4H PRN 01/27/19 04/25/19 History Ondansetron [Zofran] 4 mg PEG/G-TUBE Q6H PRN 01/27/19 04/25/19 History Protonix 40mg Packet 40 mg PEG/G-TUBE DAILY@0600 01/27/19 04/25/19 History Chlorhexidine Gluconate [Peridex] 15 ml MUCOUS MEM BID@0800,1700 02/21/19 04/25/19 History Colchicine [Colcrys] 0.6 mg PEG/G-TUBE DAILY PRN 02/21/19 04/25/19 History Econazole Nitrate [Econazole 1 applic TOPICAL BID 02/21/19 04/25/19 History Nitrate 1%] Enoxaparin [Lovenox] 40 mg SQ DAILY@1700 02/21/19 04/25/19 History Ferrous Sulfate [Iron] 325 mg PEG/G-TUBE DAILY@1700 02/21/19 04/25/19 History Ipratropium-Albuterol Nebulize 3 ml INHALATION RT-QID 02/21/19 04/25/19 History [Duoneb 0.5 mg-3 mg/3 ml Soln] Levothyroxine Sodium [Synthroid] 100 mcg PEG/G-TUBE DAILY@0600 02/21/19 04/25/19 History Multivitamins, Thera [Multivitamin 1 tab PEG/G-TUBE DAILY@1700 02/21/19 04/25/19 History (formulary)] Nystatin 100,000Unit/gm Cream 1 applic TOPICAL TID 02/21/19 04/25/19 History [Mycostatin Cream] Polyvinyl Alcohol/Povidone [Clear 1 drop BOTH EYES TID PRN 02/21/19 04/25/19 History Eyes Natural Tears Drop] Pravastatin Sodium [Pravachol] 40 mg PEG/G-TUBE HS@2100 02/21/19 04/25/19 History Saliva Stimulant Agents Comb.3 1 spray PO TID@0800,1200,1700 02/21/19 04/25/19 History [Biotene Moisturizing Mouth] Tamsulosin HCl [Flomax] 0.4 mg PEG/G-TUBE HS@2100 02/21/19 04/25/19 History Triamcinolone 0.5% Cream [Kenalog 1 applic TOPICAL BID 02/21/19 04/25/19 History 0.5% Cream] ALPRAZolam [Xanax] 0.5 mg PEG/G-TUBE Q8H PRN #7 tab 02/28/19 04/25/19 Rx Pregabalin [Lyrica] 75 mg PEG/G-TUBE BID@0800,2100 #6 02/28/19 04/25/19 Rx cap Docusate [Colace] 100 mg PEG/G-TUBE BID@0800,1700 04/25/19 04/25/19 History Dronabinol [Marinol] 2.5 mg PEG/G-TUBE BID@1200,1700 04/25/19 04/25/19 History HYDROcodone/APAP 10-325MG [[place] 1 tab PEG/G-TUBE Q4H PRN 04/25/19 04/25/19 History 10-325] Lactose-Reduced Food [Ensure Plus] 120 ml PEG/G-TUBE BID@0800,1700 04/25/19 04/25/19 History Magic Cup 1 dose PEG/G-TUBE DAILY@1500 04/25/19 04/25/19 History QUEtiapine [SEROquel] 37.5 mg PEG/G-TUBE HS@2100 04/25/19 04/25/19 History Dakins Solution 0.25% 1 applic TOPICAL DAILY 04/26/19 04/26/19 History Allergies Allergy/AdvReac Type Severity Reaction Status Date / Time No Known Allergies Allergy Verified 04/25/19 16:08 Physical Exam Vitals: Vital Signs Temp Pulse Pulse Resp BP BP Pulse Ox 04/26/19 07:30 97.5 F L 99 17 138/81 94 L 04/26/19 03:07 18 04/26/19 02:03 98.6 F 86 18 118/68 93 L 04/26/19 00:34 18 04/25/19 20:20 18 04/25/19 19:31 98.0 F 79 18 122/69 96 04/25/19 16:13 85 22 125/84 99 04/25/19 15:09 78 18 110/61 96 04/25/19 13:43 99.0 F 82 18 109/64 97 Intake and Output 04/25/19 04/26/19 04/26/19 22:59 06:59 14:59 Output Total 1500 Balance -1500 Output: Urine 1500 Other: Voiding Method Indwelling Catheter Indwelling Catheter Weight 99.79 kg Results CBC & Chem 7: 04/25/19 13:54 04/25/19 13:54 Labs: Abnormal Lab Results - Last 24 Hours (Table) 04/25/19 04/25/19 04/25/19 Range/Units 13:54 13:54 13:54 MCHC 30.9 L (31.0-37.0) g/dL RDW 17.4 H (11.5-15.5) % Lymphocytes # 0.7 L (1.0-4.8) k/uL BUN 24 H (9-20) mg/dL Creatinine 0.63 L (0.66-1.25) mg/dL Glucose 140 H (74-99) mg/dL Plasma Lactic Acid Alexey 2.2 H* (0.7-2.0) mmol/L AST 73 H (17-59) U/L Alkaline Phosphatase 128 H (38-126) U/L Albumin 3.4 L (3.5-5.0) g/dL Urine pH (5.0-8.0) Urine Protein (Negative) Urine Blood (Negative) Ur Leukocyte Esterase (Negative) Urine RBC (0-5) /hpf Urine WBC (0-5) /hpf Urine WBC Clumps (None) /hpf Triple Phos Crystals (None) /hpf Amorphous Sediment (None) /hpf Urine Bacteria (None) /hpf Urine Mucus (None) /hpf Urine Yeast (Budding) (None) /hpf 04/25/19 Range/Units 13:54 MCHC (31.0-37.0) g/dL RDW (11.5-15.5) % Lymphocytes # (1.0-4.8) k/uL BUN (9-20) mg/dL Creatinine (0.66-1.25) mg/dL Glucose (74-99) mg/dL Plasma Lactic Acid Alexey (0.7-2.0) mmol/L AST (17-59) U/L Alkaline Phosphatase (38-126) U/L Albumin (3.5-5.0) g/dL Urine pH 8.5 H (5.0-8.0) Urine Protein 1+ H (Negative) Urine Blood Trace H (Negative) Ur Leukocyte Esterase Large H (Negative) Urine RBC 12 H (0-5) /hpf Urine WBC 22 H (0-5) /hpf Urine WBC Clumps Rare H (None) /hpf Triple Phos Crystals Few H (None) /hpf Amorphous Sediment Rare H (None) /hpf Urine Bacteria Few H (None) /hpf Urine Mucus Rare H (None) /hpf Urine Yeast (Budding) Few H (None) /hpf Microbiology - Last 24 Hours (Table) 04/25/19 13:54 Gram Stain - Preliminary Abdomen Wound Culture - Preliminary Presumptive MRSA 04/25/19 13:54 Urine Culture - Preliminary Urine,Voided Thrombosis Risk Factor Assmnt - Choose All That Apply Each Factor Represents 1 point: Obesity (BMI >25) Each Risk Factor Represents 2 Points: Patient confined to bed Each Risk Factor Represents 3 Points: Age 75 years or older Thrombosis Risk Factor Assessment Total Risk Factor Score: 6 Thrombosis Risk Factor Assessment Level: High Risk
--- NOTE | 2019-04-26 13:01 | P.DS ---
Providers Date of admission: 04/25/19 15:49 Expected date of discharge: 04/26/19 Attending physician: Cosme Colon Consults: 04/25/19 15:49 Consult Physician Urgent Consulting Provider: Rony Woodward Consult Reason/Comments: ab wound inf Do you want consulting provider notified?: Already Contacted Consult Physician Urgent Consulting Provider: Gerald Good Consult Reason/Comments: ab wound infection Do you want consulting provider notified?: Yes Primary care physician: Dilshad Lopez [facility] Hospital Course: Chief Complaint: Wound culture MRSA Hospital course: This is a 82-year-old patient of Dr. Lopez. Patient was in the hospital from September 30 through October 182018. Patient then had presented with acute perforated diverticulitis. Had a sigmoid colectomy, had a drain in place with partial closure of the incision. Also had wound VAC on the lower half of the abdominal wall. Patient being followed by Dr. Woodward from general surgery and Dr. Good from infectious disease. Patient was discharged to select specialty. Patient has couple of times back and forth from select specialties to [facility]. Then was transferred to [facility]. Patient did have a colostomy in the past and had revision that was done at [facility]. Patient's chronic stable medical conditions include gout, BPH, chronic low back pain, larg e sacral decubitus wound which patient had a wound VAC in place. Patient also had anterior abdominal wound which she's been healing with secondary intention. Patient had been here and hospital on January 28 and patient was then transferred to [facility] where Dr. Machado team had taken care of him. Patient was here from February 23 through 02/28/2019. Had a fistulogram. That was okay. Sacral wound was debrided. Treated with antibiotics. Patient is presented after the wound culture was growing MRSA. Patient's been tolerating a diet by mouth. Some of the medication through the PEG tube. No fever no chills. Brought in from [facility]. Patient seen both by general surgery Dr. Woodward and Dr. good from ID. I discussed with him. No need for any further antibiotics. Abdominal wound is stable. Patient can return to the F. Discussed with the . Consultation: Dr. Woodward from general surgery Dr. good from ID Physical examination: VITAL SIGNS: 97.5, 99, 17, 138/81, 94% room air GENERAL: Laying in bed, awake. Comfortable EYES: Pupils equal. Conjunctiva pale HEENT: External appearance of nose and ears normal, oral cavity dry. NECK: JVD unable to assess; masses not palpable. HEART: Heart sounds irregular , no edema. LUNGS: Respiratory rate normal; decreased breath sounds. ABDOMEN: Soft, no tenderness, no guarding no rigidity, liver spleen not palpable, no masses palpable, bowel sounds present. Colostomy bag on the right side. Feeding tube . abdominal wall stoma on the left side, superficial wound with dressing healing well PSYCH: Answering questions appropriately NEUROLOGICAL: Cranial nerves grossly intact; no facial asymmetry, decreased both lower extremities, supportive boots in place DERMATOLOGICAL:: Large sacral wound stage IV, Investigations reviewed in the clinical context White count 7.5 hemoglobin 13.1 potassium 4.2 bun 24 creatinine 0.63 Influenza type A and type B both negative EKG tracing personally reviewed by me shows-right bundle-branch block, sinus rhythm Assessment: -Abdominal wound growing MRSA. Clinically healing well. Has grown MRSA in the past. No fever no chills. -large decubitus sacral wound and abdominal wound, chronic stable -Right bundle-branch block -Paroxysmal atrial flutter, currently sinus rhythm -Coronary artery disease with prior history of stent and bypass -Sigmoid colectomy with a resultant colostomy -Hyperlipidemia -Essential hypertension -Primary osteoarthritis -BPH -Hypothyroidism -Chronic gout -PTSD -PEG tube feeding -Large stage IV sacral decubitus ulcer, POA -Normocytic anemia of chronic disease -Patient's is the DPOA, and the elder son is also the agent for medical advocate for the Disposition: [facility] Patient Condition at Discharge: Stable Plan - Discharge Summary Discharge Rx Participant: No New Discharge Prescriptions: No Action Ezetimibe [Zetia] 10 mg PEG/G-TUBE HS@2100 Metoprolol Tartrate [Lopressor] 25 mg PEG/G-TUBE BID@0800,2100 Nitroglycerin Sl Tabs [Nitrostat] 0.4 mg PEG/G-TUBE Q5M PRN PRN Reason: Chest Pain Aspirin 81 mg PEG/G-TUBE DAILY@1700 amLODIPine [Norvasc] 5 mg PEG/G-TUBE HS@2100 Ondansetron [Zofran] 4 mg PEG/G-TUBE Q6H PRN PRN Reason: Nausea Acetaminophen Tab [Tylenol] 650 mg PEG/G-TUBE Q4H PRN PRN Reason: Pain Protonix 40mg Packet 40 mg PEG/G-TUBE DAILY@0600 Triamcinolone 0.5% Cream [Kenalog 0.5% Cream] 1 applic TOPICAL BID Polyvinyl Alcohol/Povidone [Clear Eyes Natural Tears Drop] 1 drop BOTH EYES TID PRN PRN Reason: Dry Eye(S) Ipratropium-Albuterol Nebulize [Duoneb 0.5 mg-3 mg/3 ml Soln] 3 ml INHALATION RT-QID Colchicine [Colcrys] 0.6 mg PEG/G-TUBE DAILY PRN PRN Reason: gout pain Saliva Stimulant Agents Comb.3 [Biotene Moisturizing Mouth] 1 spray PO TID@0800,1200,1700 Nystatin 100,000Unit/gm Cream [Mycostatin Cream] 1 applic TOPICAL TID Econazole Nitrate [Econazole Nitrate 1%] 1 applic TOPICAL BID Chlorhexidine Gluconate [Peridex] 15 ml MUCOUS MEM BID@0800,1700 Pravastatin Sodium [Pravachol] 40 mg PEG/G-TUBE HS@2100 Levothyroxine Sodium [Synthroid] 100 mcg PEG/G-TUBE DAILY@0600 Multivitamins, Thera [Multivitamin (formulary)] 1 tab PEG/G-TUBE DAILY@1700 Ferrous Sulfate [Iron] 325 mg PEG/G-TUBE DAILY@1700 Tamsulosin HCl [Flomax] 0.4 mg PEG/G-TUBE HS@2100 Enoxaparin [Lovenox] 40 mg SQ DAILY@1700 Pregabalin [Lyrica] 75 mg PEG/G-TUBE BID@0800,2100 #6 cap ALPRAZolam [Xanax] 0.5 mg PEG/G-TUBE Q8H PRN #7 tab PRN Reason: Anxiety Docusate [Colace] 100 mg PEG/G-TUBE BID@0800,1700 Dronabinol [Marinol] 2.5 mg PEG/G-TUBE BID@1200,1700 HYDROcodone/APAP 10-325MG [[place] 10-325] 1 tab PEG/G-TUBE Q4H PRN PRN Reason: Pain Lactose-Reduced Food [Ensure Plus] 120 ml PEG/G-TUBE BID@0800,1700 Magic Cup 1 dose PEG/G-TUBE DAILY@1500 QUEtiapine [SEROquel] 37.5 mg PEG/G-TUBE HS@2099 Dakins Solution 0.25% 1 applic TOPICAL DAILY Discharge Medication List Ezetimibe [Zetia] 10 mg PEG/G-TUBE HS@209908/14/13 [History] Metoprolol Tartrate [Lopressor] 25 mg PEG/G-TUBE BID@0800,209902/10/16 [History] Nitroglycerin Sl Tabs [Nitrostat] 0.4 mg PEG/G-TUBE Q5M PRN 02/10/16 [History] Aspirin 81 mg PEG/G-TUBE DAILY@169904/09/16 [History] amLODIPine [Norvasc] 5 mg PEG/G-TUBE HS@209909/26/18 [History] Acetaminophen Tab [Tylenol] 650 mg PEG/G-TUBE Q4H PRN 01/27/19 [History] Ondansetron [Zofran] 4 mg PEG/G-TUBE Q6H PRN 01/27/19 [History] Protonix 40mg Packet 40 mg PEG/G-TUBE DAILY@0601/27/19 [History] Chlorhexidine Gluconate [Peridex] 15 ml MUCOUS MEM BID@0800,169902/21/19 [History] Colchicine [Colcrys] 0.6 mg PEG/G-TUBE DAILY PRN 02/21/19 [History] Econazole Nitrate [Econazole Nitrate 1%] 1 applic TOPICAL BID 02/21/19 [History] Enoxaparin [Lovenox] 40 mg SQ DAILY@169902/21/19 [History] Ferrous Sulfate [Iron] 325 mg PEG/G-TUBE DAILY@169902/21/19 [History] Ipratropium-Albuterol Nebulize [Duoneb 0.5 mg-3 mg/3 ml Soln] 3 ml INHALATION RT-QID 02/21/19 [History] Levothyroxine Sodium [Synthroid] 100 mcg PEG/G-TUBE DAILY@0600 02/21/19 [History] Multivitamins, Thera [Multivitamin (formulary)] 1 tab PEG/G-TUBE DAILY@169902/21/19 [History] Nystatin 100,000Unit/gm Cream [Mycostatin Cream] 1 applic TOPICAL TID 02/21/19 [History] Polyvinyl Alcohol/Povidone [Clear Eyes Natural Tears Drop] 1 drop BOTH EYES TID PRN 02/21/19 [History] Pravastatin Sodium [Pravachol] 40 mg PEG/G-TUBE HS@209902/21/19 [History] Saliva Stimulant Agents Comb.3 [Biotene Moisturizing Mouth] 1 spray PO TI D@0800,1200,1700 02/21/19 [History] Tamsulosin HCl [Flomax] 0.4 mg PEG/G-TUBE HS@209902/21/19 [History] Triamcinolone 0.5% Cream [Kenalog 0.5% Cream] 1 applic TOPICAL BID 02/21/19 [History] ALPRAZolam [Xanax] 0.5 mg PEG/G-TUBE Q8H PRN #7 tab 02/28/19 [Rx] Pregabalin [Lyrica] 75 mg PEG/G-TUBE BID@0800,2100 #6 cap 02/28/19 [Rx] Docusate [Colace] 100 mg PEG/G-TUBE BID@0800,1700 04/25/19 [History] Dronabinol [Marinol] 2.5 mg PEG/G-TUBE BID@1200,1700 04/25/19 [History] HYDROcodone/APAP 10-325MG [[place] 10-325] 1 tab PEG/G-TUBE Q4H PRN 04/25/19 [History] Lactose-Reduced Food [Ensure Plus] 120 ml PEG/G-TUBE BID@0800,1700 04/25/19 [History] Magic Cup 1 dose PEG/G-TUBE DAILY@1500 04/25/19 [History] QUEtiapine [SEROquel] 37.5 mg PEG/G-TUBE HS@209904/25/19 [History] Dakins Solution 0.25% 1 applic TOPICAL DAILY 04/26/19 [History] Follow up Appointment(s)/Referral(s): Dilshad Lopez DO [Primary Care Provider] - 1-2 days Anitha Simpson, [NON-STAFF] - As Needed
[2019-04-26] MEDS ORDERED: DRONABINOL 2.5 MG CAP PO SCH (13:30)
--- NOTE | 2019-04-26 14:53 | CONS ---
CONSULTATION DATE OF SERVICE: 04/26/2019 REASON FOR CONSULTATION: Abdominal wound infection. HISTORY OF PRESENT ILLNESS: The patient is an 83-year-old male who was admitted to this facility back in February of 2019. at that point, the patient did have abdominal wall abscess, status post drainage, culture positive for MRSA and VRE. The patient also have a stage IV sacral pressure ulcer. Culture was positive for MRSA and anaerobes. Patient was advised a 6-week course of IV daptomycin and oral Flagyl. Local wound care was recommended with a wound VAC. Unfortunately, the patient never came to follow up with me in the outpatient setting and apparently the patient was taken care of by the wound care physician at [facility]. The patient apparently has completed his antibiotic therapy and the PICC line has been discontinued. The patient has been sent to [facility] ER yesterday with complaints for possible infection. The patient did have colostomy with revision and the patient apparently did have decreased output from his colostomy bag and apparently the patient did have cultures obtained from previous ostomy site with his fistula tested positive for MRSA. With these symptoms, the patient was sent to the [facility] ER. On arrival to the ER, the patient has been afebrile and the patient remains to be afebrile. The patient did have a normal white count of 7.5, creatinine 0.6. Lactic acid was 2.3, repeat is 1.5. Patient did have a positive UA obtained from the catheter. The patient did have a CT of abdominal and pelvis completed which shows patchy infiltrate and atelectasis in the lung bases: Right upper quadrant colostomy without evidence of any bowel obstruction. Loop colostomy in the left lower quadrant with wound he is in this is new of . No evidence of any abscess. The patient has been treated with Zosyn and vancomycin, Infectious Disease was consulted for further recommendation of antibiotic. At the time of my evaluation, overall is feeling much better. Patient denies having any chest pain, shortness of breath or cough. No nausea, vomiting, current abdominal pain. No nausea, vomiting and denies any pain to his sacral wound area. REVIEW OF SYSTEMS: Positive points have been mentioned in HPI. Rest of the systems are negative. PAST MEDICAL HISTORY: Atrial fibrillation, atrial flutter, coronary artery disease, hyperlipidemia, hypertension, osteoarthritis, [QAMARKER] sigmoid diverticulitis with a diverting colostomy, infected abdominal wall abscess and stage IV sacral pressure ulcer. PAST SURGICAL HISTORY: Bowel resection, colon ablation, coronary artery bypass grafting, PTCA with stent, tonsillectomy, sacral wound debridement. SOCIAL HISTORY: [facility] currently a [facility]. No history of smoking, drinking or drug use. FAMILY HISTORY: Father with history of [place]. ALLERGIES: No known drug allergies. MEDICATIONS: Currently the patient's medications the patient is on Tylenol, [place], DuoNeb, Xanax, [place], Ventolin, clotrimazole, colchicine, Colace, Marinol, Lovenox, Zetal, iron sulfate, Synthroid, Lopressor, Nitrostat, Zofran Protonix, Pravachol, Lyrica, Seroquel, Flomax, vancomycin pharmacy to dose. PHYSICAL EXAMINATION: Blood pressure 132/81 with a pulse of 99. temperature 97.5 he is 96% on room air. General description is an elderly male, lying in bed in no distress. No tachypnea or accessory muscle for respiration use. HEENT: Examination shows slight pallor. No scleral icterus, oral mucosa dry. No erythema or thrush. NECK: Trachea central, no thyromegaly. LUNGS: Unlabored breathing, clear to auscultation anteriorly. No wheeze or crackle. HEART: S1, S2. Regular rate and rhythm. ABDOMEN: Soft. Patient did have a wound next to his colostomy. The wound base looks clean and there is no surrounding redness or any foul-smelling drainage. 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 EXTREMITIES: No edema of the feet. Examination of sacral wound area looks clean with good granulation tissue, no surrounding swelling, redness or any foul-smelling drainage. NEUROLOGICAL: Patient is awake, alert, oriented, mood and affect normal. LABS: Hemoglobin is 13.2, white count of 7.5. BUN of 24, creatinine 0.63. Electrolyte has been normal, lactic acid 2.8, repeat is 1.5. Urine has been positive. Influenza is has been negative. Abdominal wound culture with presumptive MRSA. CT abdomen pelvis did show with sepsis in the left lower quadrant, but no evidence of any abscess. DIAGNOSTIC IMPRESSION: 1. Patient with a positive culture from his previous mucous fistula. More likely colonization of that site as currently the patient does not have any clinical findings of an abscess or cellulitis in the patient with no fever or elevated white count. Recommend no systemic antibiotic but rather local wound care. 2. Patient with abdominal wall wound with no cellulitis. Local wound care. 3. Stage IV sacral pressure ulcer. Currently with no evidence of any cellulitis. Local wound care. PLAN: 1. Discontinue vancomycin and Zosyn. 2. Local wound care to the right abdominal wound with dry Aquacel Silver dressing. 3. Local care to the mucous fistula with colostomy bag, let it drain instead of trying to plug it. 4. Sacral wound, should be treated with wound VAC and he will follow up with his wound care physician. Family at the bedside, their questions were answered. Plan of care discussed with Surgery. MARITA / TOM: [id number] /
[2019-04-26] MEDS ORDERED: NON FORMULARY DRUG (Magic Cup 1 DOSE) PEG/G-TUBE SCH (15:00)
--- NOTE | 2019-04-26 15:20 | P.GSCN ---
History of Present Illness Consult date: 04/26/19 Reason for Consult: abdominal wound infection Requesting physician: Israel Jimenez History of present illness: CHIEF COMPLAINT: abdominal wound HISTORY OF PRESENT ILLNESS: 83-year-old male who is known to surgical services from admission in September 2017. At that time patient underwent exploratory laparotomy, sigmoid colectomy with end colostomy, and drainage of abscess secondary to perforated diverticulitis with feculent and purulent peritonitis. Patient was hospitalized at [facility] and required revision of his colostomy. Patient was recently evaluated by surgical services and February 2019. He underwent debridement of mucous fistula of abdominal wall. Patient re ports he was transferred to the hospital due to no stool output in his colostomy for 3 days. He reports having a large amount of stool last night in his ostomy. PAST MEDICAL HISTORY: See list. PAST SURGICAL HISTORY: See list. SOCIAL HISTORY: No illicit drug use. REVIEW OF SYSTEMS: CONSTITUTIONAL: Denies fever or chills. HEENT: Denies blurred vision, vision changes, or eye pain. Denies hemoptysis CARDIOVASCULAR: Denies chest pain or pressure. RESPIRATORY: No shortness of breath. GASTROINTESTINAL: Refer to HPI for pertinent findings HEMATOLOGIC: Denies bleeding disorders. GENITOURINARY: Denies any blood in urine. SKIN: Denies pruitis. Denies rash. PHYSICAL EXAM: VITAL SIGNS: Reviewed. GENERAL: Well-developed in no acute distress. HEENT: No sclera icterus. Extraocular movements grossly intact. Moist buccal mucosa. Head is atraumatic, normocephalic. ABDOMEN: Soft. Nondistended. Ostomy to right side with stool noted. Mucus fistula to left lower quadrant. PEG intact. NEUROLOGIC: Alert and oriented. Cranial nerves II through XII grossly intact. LABORATORY DATA: WBC 7.5. Hemoglobin 13.1. Platelet count 248. Lactic acid 2.2. Repeat 1.5. IMAGING: CT abdomen and pelvis was performed. Report reviewed by Dr. Woodward. No acute changes or process per Dr. Woodward. ASSESSMENT: 1. No bowel function via ostomy for 3 days, resolved 2. 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 Woodward recommends ostomy appliance to be placed over left lower quadrant mucus fistula to collect drainage No further intervention from a surgical standpoint. Stable to return to [facility] from a surgery standpoint per Dr. Woodward Nurse practitioner note has been reviewed by physician. Signing provider agrees with the documented findings, assessment, and plan of care. Past Medical History Past Medical History: Atrial Fibrillation, Atrial Flutter, Coronary Artery Disease (CAD), Chest Pain / Angina, Hyperlipidemia, Hypertension, Myocardial Infarction ([place]), Osteoarthritis (OA), Prostate Disorder, Skin Disorder, Thyroid Disorder Additional Past Medical History / Comment(s): Diverticulitis, HX PERFORATION. Gout. Eczema. BPH. Chronic Back Pain D/T PINCHED NERVE, has been bedridden since September. HX VERTIGO. FOOD GETTING STUCK IN THROAT - REMOVAL X3. Last Myocardial Infarction Date:: 08/2015 History of Any Multi-Drug Resistant Organisms: MRSA, VRE Year Discovered:: 02/24/19 VRE & MRSA MDRO Source:: Abdomen Past Surgical History: Bowel Resection, Cardiac Ablation, Coronary Bypass/CABG, Heart Catheterization With Stent, Tonsillectomy Additional Past Surgical History / Comment(s): 02/11/16 Cardiac stent to SVG to diagonal; TOTAL 3 NOW. CABG X3 0n 07/11/15. CYST REMOVED FROM HEART 1958; LEFT TESTICLE REMOVED; МАРИНА CATARACTS. EGD W/ REMOVAL FB X3. Ostomy which failed, and redone. Colostomy since September 2018. Issues with sepsis since. At [facility] family was told Rene had a VAP which was drug resistant, unsure of type, November 2018. Past Anesthesia/Blood Transfusion Reactions: No Reported Reaction Additional Past Anesthesia/Blood Transfusion Reaction / Comm: no family hx Date of Last Stent Placement:: 02/11/16 Past Psychological History: PTSD Additional Psychological History / Comment(s): Pt is a [place] . 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 Smoking Status: Never smoker Past Alcohol Use History: None Reported Additional Past Alcohol Use History / Comment(s): Hx cigar/pipe smoker from teen. quit smoking 1972 Past Drug Use History: None Reported - Past Family History Mother Family Medical History: Unable to Obtain Additional Family Medical History / Comment(s): Mother had a pacemaker. Father History Unknown: Yes Family Medical History: Myocardial Infarction ([place]) Medications and Allergies Home Medications Medication Instructions Recorded Confirmed Type Ezetimibe [Zetia] 10 mg PEG/G-TUBE HS@2100 08/14/13 04/25/19 History Metoprolol Tartrate [Lopressor] 25 mg PEG/G-TUBE BID@0800,2100 02/10/16 04/25/19 History Nitroglycerin Sl Tabs [Nitrostat] 0.4 mg PEG/G-TUBE Q5M PRN 02/10/16 04/25/19 History Aspirin 81 mg PEG/G-TUBE DAILY@1700 04/09/16 04/25/19 History amLODIPine [Norvasc] 5 mg PEG/G-TUBE HS@209909/26/18 04/25/19 History Acetaminophen Tab [Tylenol] 650 mg PEG/G-TUBE Q4H PRN 01/27/19 04/25/19 History Ondansetron [Zofran] 4 mg PEG/G-TUBE Q6H PRN 01/27/19 04/25/19 History Protonix 40mg Packet 40 mg PEG/G-TUBE DAILY@0600 01/27/19 04/25/19 History Chlorhexidine Gluconate [Peridex] 15 ml MUCOUS MEM BID@0800,169902/21/19 04/25/19 History Colchicine [Colcrys] 0.6 mg PEG/G-TUBE DAILY PRN 02/21/19 04/25/19 History Econazole Nitrate [Econazole 1 applic TOPICAL BID 02/21/19 04/25/19 History Nitrate 1%] Enoxaparin [Lovenox] 40 mg SQ DAILY@0 02/21/19 04/25/19 History Ferrous Sulfate [Iron] 325 mg PEG/G-TUBE DAILY@17002/21/19 04/25/19 History Ipratropium-Albuterol Nebulize 3 ml INHALATION RT-QID 02/21/19 04/25/19 History [Duoneb 0.5 mg-3 mg/3 ml Soln] Levothyroxine Sodium [Synthroid] 100 mcg PEG/G-TUBE DAILY@0600 02/21/19 04/25/19 History Multivitamins, Thera [Multivitamin 1 tab PEG/G-TUBE DAILY@1700 02/21/19 04/25/19 History (formulary)] Nystatin 100,000Unit/gm Cream 1 applic TOPICAL TID 02/21/19 04/25/19 History [Mycostatin Cream] Polyvinyl Alcohol/Povidone [Clear 1 drop BOTH EYES TID PRN 02/21/19 04/25/19 History Eyes Natural Tears Drop] Pravastatin Sodium [Pravachol] 40 mg PEG/G-TUBE HS@209902/21/19 04/25/19 History Saliva Stimulant Agents Comb.3 1 spray PO TID@0800,1200,1700 02/21/19 04/25/19 History [Biotene Moisturizing Mouth] Tamsulosin HCl [Flomax] 0.4 mg PEG/G-TUBE HS@209902/21/19 04/25/19 History Triamcinolone 0.5% Cream [Kenalog 1 applic TOPICAL BID 02/21/19 04/25/19 History 0.5% Cream] ALPRAZolam [Xanax] 0.5 mg PEG/G-TUBE Q8H PRN #7 tab 02/28/19 04/25/19 Rx Pregabalin [Lyrica] 75 mg PEG/G-TUBE BID@0800,2100 #6 02/28/19 04/25/19 Rx cap Docusate [Colace] 100 mg PEG/G-TUBE BID@0800,1700 04/25/19 04/25/19 History Dronabinol [Marinol] 2.5 mg PEG/G-TUBE BID@1200,1700 04/25/19 04/25/19 History HYDROcodone/APAP 10-325MG [[place] 1 tab PEG/G-TUBE Q4H PRN 04/25/19 04/25/19 History 10-325] Lactose-Reduced Food [Ensure Plus] 120 ml PEG/G-TUBE BID@0800,1700 04/25/19 04/25/19 History Magic Cup 1 dose PEG/G-TUBE DAILY@1500 04/25/19 04/25/19 History QUEtiapine [SEROquel] 37.5 mg PEG/G-TUBE HS@209904/25/19 04/25/19 History Dakins Solution 0.25% 1 applic TOPICAL DAILY 04/26/19 04/26/19 History Allergies Allergy/AdvReac Type Severity Reaction Status Date / Time No Known Allergies Allergy Verified 04/25/19 16:08 Surgical - Exam Vital Signs Temp Pulse Resp BP Pulse Ox 99.0 F 82 18 109/64 97 04/25/19 13:43 04/25/19 13:43 04/25/19 13:43 04/25/19 13:43 04/25/19 13:43 Results - Labs 04/25/19 13:54 04/25/19 13:54 Microbiology - Last 24 Hours (Table) 04/25/19 13:54 Gram Stain - Preliminary Abdomen Wound Culture - Preliminary Presumptive MRSA 04/25/19 13:54 Urine Culture - Preliminary Urine,Voided
[2019-04-26] MEDS ORDERED: FERROUS SULFATE 325 MG TAB PO SCH (17:00)
[2019-04-26] MEDS ORDERED: MULTIVITAMINS, THERA 1 EACH TAB PEG/G-TUBE SCH (17:00)
[2019-04-26] MEDS ORDERED: DOCUSATE 100 MG CAP PO SCH (17:00)
[2019-04-26] MEDS ORDERED: ENOXAPARIN 40 MG/0.4 ML SYRINGE SQ SCH (17:00)
[2019-04-26] MEDS ORDERED: ASPIRIN 81 MG PEG/G-TUBE SCH (17:00)
[2019-04-26] MEDS ORDERED: EZETIMIBE 10 MG TAB PEG/G-TUBE SCH (21:00)
[2019-04-26] MEDS ORDERED: PRAVASTATIN SODIUM 40 MG TAB PO SCH (21:00)
[2019-04-26] MEDS ORDERED: TAMSULOSIN 0.4 MG CAP.ER.24H PO SCH (21:00)
[2019-04-26] MEDS ORDERED: QUEtiapine 25 MG TAB PEG/G-TUBE SCH (21:00)
[2019-04-26] MEDS ORDERED: amLODIPine 5 MG TAB PEG/G-TUBE SCH (21:00)
== END 2019-04-26 13:43 | DRG 862 ==
LOC: EC 13:34 → 4SSUR 15:49
PROVIDERS: ADMIT Hospitalist; ATTEND Hospitalist
DX: T81.49XA Infection following a procedure, other surgical site, initial encounter (principal); L89.154 Pressure ulcer of sacral region, stage 4; I48.92 Unspecified atrial flutter; J98.11 Atelectasis; B95.62 Methicillin resistant Staphylococcus aureus infection as the cause of diseases classified elsewhere; D63.8 Anemia in other chronic diseases classified elsewhere; E03.9 Hypothyroidism, unspecified; E78.5 Hyperlipidemia, unspecified; F43.10 Post-traumatic stress disorder, unspecified; G89.29 Other chronic pain; I10 Essential (primary) hypertension; I25.10 Atherosclerotic heart disease of native coronary artery without angina pectoris; I25.2 Old myocardial infarction; I45.10 Unspecified right bundle-branch block; I48.91 Unspecified atrial fibrillation; M19.91 Primary osteoarthritis, unspecified site; M1A.9XX0 Chronic gout, unspecified, without tophus (tophi); M81.0 Age-related osteoporosis without current pathological fracture; Z87.01 Personal history of pneumonia (recurrent); N40.0 Benign prostatic hyperplasia without lower urinary tract symptoms; E07.9 Disorder of thyroid, unspecified; Z79.82 Long term (current) use of aspirin; Z79.899 Other long term (current) drug therapy; Z82.49 Family history of ischemic heart disease and other diseases of the circulatory system; Z87.891 Personal history of nicotine dependence; Z90.79 Acquired absence of other genital organ(s); Z93.3 Colostomy status; Z95.1 Presence of aortocoronary bypass graft; Z95.5 Presence of coronary angioplasty implant and graft; R13.10 Dysphagia, unspecified; Z93.1 Gastrostomy status; Z79.890 Hormone replacement therapy; G58.9 Mononeuropathy, unspecified; Z74.01 Bed confinement status; Z90.49 Acquired absence of other specified parts of digestive tract; Z86.14 Personal history of Methicillin resistant Staphylococcus aureus infection
CPT/HCPCS: 36415; 71046; 74176; 80053; 81001; 83605; 85025; 85610; 85730; 87040; 87070; 87077; 87086; 87186; 87205; 87502; 93005; 96365; 96375; 99285

== ENCOUNTER 2020-04-16 10:35 | Inpatient (IN) | payer MEDICARE, OTHER ==
--- NOTE | 2020-04-16 10:53 | ED ---
General Adult HPI - General Chief complaint: Recheck/Abnormal Lab/Rx Stated complaint: Wound Time Seen by Provider: 04/16/20 10:38 Source: EMS Mode of arrival: EMS Limitations: no limitations - History of Present Illness Initial comments: Dictation was produced using [employer] dictation software. please excuse any grammatical, word or spelling errors. This patient was cared for during a federal and state declared state of emergency secondary to Covid 19 Chief Complaint: 84-year-old male with past medical history of A. fib, decubitus ulcer, hypertension presents today with abnormal wound cultures History of Present Illness: 84-year-old male he is brought in by EMS. Patient has history of decubitus ulcer. Patient has a 1 health care nurse that comes to the house twice a week. She last saw him yesterday. She performed a wound culture. Patient lives with son received a call saying that the wound cultures were abnormal in that he should come to the emergency department. EMS was called patient was brought here. Patient has no complaints at this time. He allegedly has chronic decubitus ulcer after long hospital stay from complicated diverticulitis. Patient has no complaints at this time. He feels well and at baseline. The ROS documented in this emergency department record has been reviewed and confirmed by me. Those systems with pertinent positive or negative responses have been documented in the HPI. All other systems are other negative and/or noncontributory. PHYSICAL EXAM: General Impression: Alert and oriented x3, not in acute distress HEENT: Normocephalic atraumatic, extra-ocular movements intact, pupils equal and reactive to light bilaterally, mucous membranes moist. Cardiovascular: Heart regular rate and rhythm Chest: Able to complete full sentences, no retractions, no tachypnea Abdomen: abdomen soft, non-tender, non-distended, no organomegaly Musculoskeletal: Pulses present and equal in all extremities, no peripheral edema Motor: no focal deficits noted Neurological: CN II-XII grossly intact, no focal motor or sensory deficits noted Skin: Decubitus ulcer with small 2 x 2 centimeter skin ulcer, it is malodorous there is a 12 x 12" surrounding area of erythema Psych: Normal affect and mood ED course: 84-year-old male with decubitus ulcer presents with abnormal wound cultures. Signs upon arrival are within acceptable limits. Patient physical exam is mostly benign except for his decubitus ulcer. Microbiology cultures were reviewed. On April 07 he had a culture that grew out pseudomonas aeruginosa and Proteus mirabilis. Sensitivities show that the infection is multidrug resistant. It is sensitive to tobramycin and meropenem. Patient started on meropenem Laboratory evaluation obtained. CBC, coag panel, metabolic panel is unremarkable. Case is discussed with Dr. Colon was went except patient's care. Infectious disease will be consulted. EKG interpretation: Ventricular rate 69, sinus rhythm,. Interval to 26, QRS 156, QTC 473. No RI prolongation, no QTC prolongation, no ST or T-wave changes noted. EKG compared to Gen. 2019 showing no changes. Overall, this EKG is unremarkable - Related Data Home Medications Medication Instructions Recorded Confirmed Nitroglycerin Sl Tabs [Nitrostat] 0.4 mg SL Q5M PRN 02/10/16 04/16/20 Aspirin 81 mg PO DAILY@0800 04/09/16 04/16/20 Acetaminophen Tab [Tylenol] 650 mg PO Q4H PRN 01/27/19 04/16/20 Ondansetron [Zofran] 4 mg PO Q6H PRN 01/27/19 04/16/20 Enoxaparin [Lovenox] 40 mg SQ DAILY@1700 02/21/19 04/16/20 Ferrous Sulfate [Iron] 325 mg PO DAILY@0800 02/21/19 04/16/20 Ipratropium-Albuterol Nebulize 3 ml INHALATION RT-Q6H PRN 02/21/19 04/16/20 [Duoneb 0.5 mg-3 mg/3 ml Soln] Levothyroxine Sodium [Synthroid] 100 mcg PO DAILY@0800 02/21/19 04/16/20 Multivitamins, Thera [Multivitamin 1 tab PO DAILY@0800 02/21/19 04/16/20 (formulary)] Saliva Stimulant Agents Comb.3 1 spray PO TID@0800,1200,1700 02/21/19 04/16/20 [Biotene Moisturizing Mouth] Tamsulosin HCl [Flomax] 0.4 mg PO HS@2100 02/21/19 04/16/20 HYDROcodone/APAP 10-325MG [[place] 1 tab PO Q4H PRN 04/25/19 04/16/20 10-325] ALPRAZolam [Xanax] 0.5 mg PO Q8H PRN 04/16/20 04/16/20 Atorvastatin [Lipitor] 20 mg PO HS 04/16/20 04/16/20 Baclofen 5 mg PO BID@0800,2100 04/16/20 04/16/20 Glimepiride [Amaryl] 2 mg PO AC-BRKFST 04/16/20 04/16/20 Lidocaine 5% Oint [Xylocaine 5% 1 applic TOPICAL HS PRN 04/16/20 04/16/20 Oint] Liquacel 30 ml PO TID 04/16/20 04/16/20 Metoprolol Tartrate [Lopressor] 12.5 mg PO BID 04/16/20 04/16/20 Mirtazapine [Remeron] 30 mg PO HS@2100 04/16/20 04/16/20 Omeprazole 40 mg PO DAILY@0800 04/16/20 04/16/20 Pregabalin [Lyrica] 75 mg PO BID@0800,2100 04/16/20 04/16/20 Sennosides [Senna] 8.6 mg PO BID@0800,1700 04/16/20 04/16/20 amLODIPine [Norvasc] 2.5 mg PO HS@2100 04/16/20 04/16/20 Allergies Allergy/AdvReac Type Severity Reaction Status Date / Time No Known Allergies Allergy Verified 04/16/20 11:13 Review of Systems ROS Statement: Those systems with pertinent positive or pertinent negative responses have been documented in the HPI. ROS Other: All systems not noted in ROS Statement are negative. Past Medical History Past Medical History: Atrial Fibrillation, Atrial Flutter, Coronary Artery Disease (CAD), Chest Pain / Angina, Hyperlipidemia, Hypertension, Myocardial Infarction ([place]), Osteoarthritis (OA), Prostate Disorder, Skin Disorder, Thyroid Disorder Additional Past Medical History / Comment(s): Diverticulitis, HX PERFORATION. Go ut. Eczema. BPH. Chronic Back Pain D/T PINCHED NERVE, has been bedridden since September. HX VERTIGO. FOOD GETTING STUCK IN THROAT - REMOVAL X3. Last Myocardial Infarction Date:: 08/2015 History of Any Multi-Drug Resistant Organisms: MRSA, Other MDRO, VRE Date of last positivie culture/infection: 07/12/19 MRSA 02/24/19 VRE MDRO Source:: Abdomen-MRSA & VRE Past Surgical History: Bowel Resection, Cardiac Ablation, Coronary Bypass/CABG, Heart Catheterization With Stent, Tonsillectomy Additional Past Surgical History / Comment(s): 02/11/16 Cardiac stent to SVG to diagonal; TOTAL 3 NOW. CABG X3 0n 07/11/15. CYST REMOVED FROM HEART 1958; LEFT TESTICLE REMOVED; МАРИНА CATARACTS. EGD W/ REMOVAL FB X3. Ostomy which failed, and redone. Colostomy since September 2018. Issues with sepsis since. At [facility] family was told Rene had a VAP which was drug resistant, unsure of type, November 2018. Past Anesthesia/Blood Transfusion Reactions: No Reported Reaction Additional Past Anesthesia/Blood Transfusion Reaction / Comment(s): no family hx Date of Last Stent Placement:: 02/11/16 Past Psychological History: PTSD Smoking Status: Never smoker Past Alcohol Use History: None Reported Past Drug Use History: None Reported - Past Family History Mother Family Medical History: Unable to Obtain Additional Family Medical History / Comment(s): Mother had a pacemaker. Father History Unknown: Yes Family Medical History: Myocardial Infarction ([place]) General Exam Limitations: no limitations Course Vital Signs 04/16/20 10:36 Temperature 98.1 F Pulse Rate 67 Respiratory 20 Rate Blood Pressure 133/77 O2 Sat by Pulse 97 Oximetry Medical Decision Making - Lab Data Result diagrams: 04/16/20 11:14 04/16/20 11:14 Lab Results 04/16/20 04/16/20 04/16/20 Range/Units 11:14 11:14 11:14 WBC 7.3 (3.8-10.6) k/uL RBC 5.02 (4.30-5.90) m/uL Hgb 16.2 (13.0-17.5) gm/dL Hct 47.5 (39.0-53.0) % MCV 94.7 (80.0-100.0) fL MCH 32.2 (25.0-35.0) pg MCHC 34.0 (31.0-37.0) g/dL RDW 14.1 (11.5-15.5) % Plt Count 187 (150-450) k/uL MPV 7.4 Neutrophils % 69 % Lymphocytes % 17 % Monocytes % 8 % Eosinophils % 4 % Basophils % 1 % Neutrophils # 5.0 (1.3-7.7) k/uL Lymphocytes # 1.2 (1.0-4.8) k/uL Monocytes # 0.6 (0-1.0) k/uL Eosinophils # 0.3 (0-0.7) k/uL Basophils # 0.1 (0-0.2) k/uL PT 11.0 (9.0-12.0) sec INR 1.0 (<1.2) APTT 23.0 (22.0-30.0) sec Sodium 141 (137-145) mmol/L Potassium 3.9 (3.5-5.1) mmol/L Chloride 109 H (98-107) mmol/L Carbon Dioxide 23 (22-30) mmol/L Anion Gap 9 mmol/L BUN 19 (9-20) mg/dL Creatinine 0.70 (0.66-1.25) mg/dL Est GFR (CKD-EPI)AfAm >90 (>60 ml/min/1.73 sqM) Est GFR (CKD-EPI)NonAf 88 (>60 ml/min/1.73 sqM) Glucose 112 H (74-99) mg/dL Plasma Lactic Acid Alexey (0.7-2.0) mmol/L Calcium 10.0 (8.4-10.2) mg/dL Total Bilirubin 0.6 (0.2-1.3) mg/dL AST 27 (17-59) U/L ALT 21 (4-49) U/L Alkaline Phosphatase 111 (38-126) U/L Total Protein 7.7 (6.3-8.2) g/dL Albumin 4.1 (3.5-5.0) g/dL 04/16/20 Range/Units 11:14 WBC (3.8-10.6) k/uL RBC (4.30-5.90) m/uL Hgb (13.0-17.5) gm/dL Hct (39.0-53.0) % MCV (80.0-100.0) fL MCH (25.0-35.0) pg MCHC (31.0-37.0) g/dL RDW (11.5-15.5) % Plt Count (150-450) k/uL MPV Neutrophils % % Lymphocytes % % Monocytes % % Eosinophils % % Basophils % % Neutrophils # (1.3-7.7) k/uL Lymphocytes # (1.0-4.8) k/uL Monocytes # (0-1.0) k/uL Eosinophils # (0-0.7) k/uL Basophils # (0-0.2) k/uL PT (9.0-12.0) sec INR (<1.2) APTT (22.0-30.0) sec Sodium (137-145) mmol/L Potassium (3.5-5.1) mmol/L Chloride (98-107) mmol/L Carbon Dioxide (22-30) mmol/L Anion Gap mmol/L BUN (9-20) mg/dL Creatinine (0.66-1.25) mg/dL Est GFR (CKD-EPI)AfAm (>60 ml/min/1.73 sqM) Est GFR (CKD-EPI)NonAf (>60 ml/min/1.73 sqM) Glucose (74-99) mg/dL Plasma Lactic Acid Alexey 1.6 (0.7-2.0) mmol/L Calcium (8.4-10.2) mg/dL Total Bilirubin (0.2-1.3) mg/dL AST (17-59) U/L ALT (4-49) U/L Alkaline Phosphatase (38-126) U/L Total Protein (6.3-8.2) g/dL Albumin (3.5-5.0) g/dL Disposition Clinical Impression: Cellulitis Disposition: ADMITTED IP TO THIS HOSP Condition: Fair Referrals: Dilshad Lopez DO [Primary Care Provider] - 1-2 days Decision Time: 11:57
[2020-04-16] MEDS ORDERED: MEROPENEM 2 GM in SODIUM CHLORIDE 0.9% 100 ML IVPB STA (10:57)
[2020-04-16] MEDS ORDERED: PIPERACILLIN-TAZOBACTAM 3.375 GM in SODIUM CHLORIDE 0.9% 100 ML IVPB SCH (11:00)
[2020-04-16 11:31] LABS: Basophils # (A) 0.1 k/uL (0-0.2); Basophils % (A) 1 %; Eosinophils # (A) 0.3 k/uL (0-0.7); Eosinophils % (A) 4 %; HCT 47.5 % (39.0-53.0); HGB 16.2 gm/dL (13.0-17.5); Lymphocytes # (A) 1.2 k/uL (1.0-4.8); Lymphocytes % (A) 17 %; MCH 32.2 pg (25.0-35.0); MCV 94.7 fL (80.0-100.0); Mean Platelet Volume 7.4; Monocytes # (A) 0.6 k/uL (0-1.0); Monocytes % (A) 8 %; Neutrophils % (A) 69 %; Platelet Count 187 k/uL (150-450); RBC 5.02 m/uL (4.30-5.90); RDW 14.1 % (11.5-15.5); WBC 7.3 k/uL (3.8-10.6)
[2020-04-16 11:38] LABS: ALT 21 U/L (4-49); African American GFR (CKD) >90 (>60 ml/min/1.73 sqM); Albumin 4.1 g/dL (3.5-5.0); Anion Gap 9 mmol/L; Blood Urea Nitrogen 19 mg/dL (9-20); Carbon Dioxide 23 mmol/L (22-30); Chloride 109 mmol/L (98-107); Glucose 112 mg/dL (74-99); Non-African American GFR(CKD) 88 (>60 ml/min/1.73 sqM); Sodium 141 mmol/L (137-145); Total Bilirubin 0.6 mg/dL (0.2-1.3); Total Protein 7.7 g/dL (6.3-8.2)
[2020-04-16 11:51] LABS: AST 27 U/L (17-59); Alkaline Phosphatase 111 U/L (38-126); Potassium 3.9 mmol/L (3.5-5.1)
[2020-04-16] MEDS ORDERED: ACETAMINOPHEN TAB 325 MG TAB PO PRN (11:55)
[2020-04-16] MEDS ORDERED: NALOXONE 0.4 MG/ML 1 ML VIAL IV PRN (11:55)
[2020-04-16] MEDS: SODIUM CHLORIDE 0.9% 1,000 ML IV SCH (18:16)
[2020-04-16] MEDS ORDERED: ALPRAZolam 0.5 MG TAB PO PRN (18:19)
[2020-04-16] MEDS ORDERED: LIDOCAINE 5% OINTMENT 50 GM JAR TOPICAL PRN (18:19)
[2020-04-16] MEDS ORDERED: ONDANSETRON 4 MG TAB PO PRN (18:19)
[2020-04-16] MEDS ORDERED: IPRATROPIUM-ALBUTEROL 3 ML NEB INHALATION PRN (18:19)
[2020-04-16] MEDS ORDERED: NITROGLYCERIN SL TABS 0.4 MG TAB SUBLINGUAL PRN (18:19)
[2020-04-16] MEDS ORDERED: MEROPENEM 2 GM in SODIUM CHLORIDE 0.9% 100 ML IVPB SCH (20:00)
[2020-04-16] MEDS: MIRTAZAPINE 15 MG TAB PO SCH (21:16)
[2020-04-16] MEDS: ATORVASTATIN 20 MG TAB PO SCH (21:16)
[2020-04-16] MEDS: TAMSULOSIN 0.4 MG CAP.ER.24H PO SCH (21:16)
[2020-04-16] MEDS: PREGABALIN 75 MG CAP PO SCH (21:16)
[2020-04-16] MEDS: HYDROcodone/APAP 10-325MG 1 EACH TAB PO PRN (21:16)
[2020-04-16] MEDS: BACLOFEN 10 MG TAB PO SCH (21:17)
[2020-04-16] MEDS: amLODIPine 2.5 MG TAB PO SCH (21:18)
[2020-04-16] MEDS: METOPROLOL TARTRATE 12.5 MG TAB PO SCH (21:18)
[2020-04-16] MEDS ORDERED: NON FORMULARY DRUG (Liquacel 30 ML) PO SCH (22:00)
[2020-04-17] MEDS: MEROPENEM 1 GM in SODIUM CHLORIDE 0.9% 100 ML IVPB SCH ×3 (01:13→15:00)
[2020-04-17] MEDS: HYDROcodone/APAP 10-325MG 1 EACH TAB PO PRN ×4 (02:36→20:34)
--- NOTE | 2020-04-17 04:40 | CONS ---
CONSULTATION DATE OF SERVICE: 04/16/2020. REASON FOR CONSULTATION AND EVALUATION: Multi resistant infected sacral pressure ulcer. HISTORY OF PRESENT ILLNESS: The patient is an 84-year-old male with a past medical history significant for perforated diverticulitis in this patient who did have multiple abdominal surgeries. The patient also have a prolonged hospitalization and did have a large infected sacral pressure ulcer for which the patient did have multiple debridements and local care done. The patient was in a usp. However, the patient mentioned on the last 2 months he has been at home being taken care of by his son and has a wound care nurse who comes and bandages his wound twice a week. The patient apparently did have cultures obtained from his sacral wound on April 07. The patient was called yesterday by the wound care nurse obtain this culture telling the patient that culture did grow resistant bacteria and he needs to go to the hospital. The patient denies having any fever or any chills. The patient denies having any pain to the sacral wound. The patient denies having any drainage. It is not very clear why this culture was obtained to begin with. The patient subsequently was evaluated by the ER physician. On arrival to the ER, the patient has been afebrile and no fever has been recorded. The patient did have a normal white count with no left shift. Kidney function has been normal. Procalcitonin is normal. The patient was started on meropenem 2 grams q.8 hours. Infectious Disease was consulted for further management of antibiotic therapy. REVIEW OF SYSTEMS: Positive points have been mentioned in HPI. Rest of the systems are negative. PAST MEDICAL HISTORY: Atrial fibrillation, atrial flutter, coronary artery disease, hypertension, hyperlipidemia, AL, osteoarthritis, perforated diverticulitis and a sacral pressure ulcer. PAST SURGICAL HISTORY: Bowel resection, heart catheterization with stent, tonsillectomy, coronary artery bypass grafting. SOCIAL HISTORY: No history of smoking, drinking or drug use. FAMILY HISTORY: His father history of AL. ALLERGIES: No known drug allergies. MEDICATIONS: Include the patient is currently on Tylenol, Lutcher, DuoNeb, Xanax, Norvasc, aspirin, Lipitor. Baclofen, Lovenox, iron sulfate, Amaryl, Synthroid, meropenem 2 g. He is on Lopressor, Remeron, Narcan, Nitrostat, Zofran, Protonix, Lyrica, Senokot, Flomax. PHYSICAL EXAMINATION: Blood pressure 151/90 with a pulse of 85, temperature 98.1. He is 95% on room air. General description: The patient is an elderly male lying in bed in no distress. No tachypnea or accessory muscle of respiration use. HEENT: Examination shows no pallor or scleral icterus. Oral mucous membranes dry. Neck: Trachea central. No thyromegaly. Lungs unlabored breathing. Clear to auscultation anteriorly. No wheeze or crackles. Heart S1, S2. Regular rate and rhythm. ABDOMEN: Soft. The patient did have mucous fistula to left abdominal wall and small superficial wound on the right side with no evidence of cellulitis. Extremities are no edema of the feet. Skin examination: No rash or mass palpable. Examination of sacral area: The patient did have a small wound with no slough tissue. No surrounding redness or any foul-smelling drainage. Neurological: Patient is awake, alert, oriented times three. Mood and affect normal. LABS: Hemoglobin is 16.8 with a white count of 7.3, BUN of 19, creatinine 0.70. DIAGNOSTIC IMPRESSION AND PLAN: Patient admitted to the hospital with a positive culture from his sacral wound done on April 07 in this patient who did have a history of large wound to the sacral area. However, that wound has significantly healed and it is a very small wound at this point with no evidence of any secondary cellulitis clinically. More likely this positive culture did represent colonization of this wound and these cultures should not have been obtained in the first place as the patient is not showing any signs clinically of infection. Patient with no fever. No white count. Procalcitonin normal. PLAN: 1. Local wound care with Aquacel Silver dressing and keep the area off the pressure. 2. Change meropenem 1 q.8 hours. 3. We will discuss this case further with the attending as well as the son and will be recommending no antibiotic on discharge as clinical suspicion low for a secondary infection. Thank you for this consultation. Will follow this patient along with you. MMODL / IJN: [id number] /
[2020-04-17] MEDS: PANTOPRAZOLE 40 MG TABLET PO SCH (08:19)
[2020-04-17] MEDS: MULTIVITAMINS, THERA 1 EACH TAB PO SCH (08:20)
[2020-04-17] MEDS: FERROUS SULFATE 325 MG TAB PO SCH (08:20)
[2020-04-17] MEDS: PREGABALIN 75 MG CAP PO SCH ×2 (08:20→20:35)
[2020-04-17] MEDS: ASPIRIN 81 MG PO SCH (08:20)
[2020-04-17] MEDS: BACLOFEN 10 MG TAB PO SCH ×2 (08:20→20:35)
[2020-04-17] MEDS: LEVOTHYROXINE 100 MCG TAB PO SCH (08:20)
[2020-04-17] MEDS: GLIMEPIRIDE 2 MG TAB PO SCH (08:21)
[2020-04-17] MEDS: METOPROLOL TARTRATE 12.5 MG TAB PO SCH ×2 (08:22→22:17)
[2020-04-17] MEDS: SENNOSIDES 8.6 MG TAB PO SCH ×2 (08:25→16:27)
[2020-04-17] MEDS: SODIUM CHLORIDE 0.9% 1,000 ML IV SCH (11:23)
[2020-04-17] MEDS: INSULIN ASPART (NovoLOG) 100 UNIT/ML VIAL SQ SCH ×2 (11:28→16:23)
[2020-04-17 11:29] LABS: Glucose,Whole Blood 75 mg/dL (75-99)
[2020-04-17] MEDS: ENOXAPARIN 40 MG/0.4 ML SYRINGE SQ SCH (13:03)
[2020-04-17 13:17] VITALS: BMI 32.5
[2020-04-17 16:24] LABS: Glucose,Whole Blood 106 mg/dL (75-99)
--- NOTE | 2020-04-17 18:34 | P.HPIM ---
History of Present Illness H&P Date: 04/17/20 Chief Complaint: Positive wound culture Hospital course: This is a 84-year-old patient of Dr. Lopez. October 2018. - acute perforated diverticulitis. Had a sigmoid colectomy, had a drain in place with partial closure of the incision. Also had wound VAC on the lower half of the abdominal wall. Patient being followed by Dr. Woodward from general surgery and Dr. Park from infectious disease. [facility] Patient has couple of times back and forth from [facility] to [facility]. Patient did have a colostomy in the past and had revision that was done at [facility]. Patient's chronic stable medical conditions include gout, BPH, chronic low back pain, large sacral decubitus wound which patient had a wound VAC in place. Patient also had anterior abdominal wound which she's been healing with secondary intention. Also had admission when he was transferred to [facility] to be followed by Dr. Carter segundo team. Patient's currently at home. He was sent in because cultures were done that were growing Pseudomonas. Patient denies any fever and chills. Some local discomfort to the sacral area. Patient does come been a some difficulty with swallowing with solids especially bread. About 5 years ago he had esophageal dilatation. Patient not use suspect due for close to a year. Patient has abdominal wall wounds. Dressing on the same. No fever no chills. Has a colostomy bag.. Review of systems: GEN.: None EYES: None HEENT: None NECK: None RESPIRATORY: None CARDIOVASCULAR: None GASTROINTESTINAL: PEG tube in place-not be used GENITOURINARY: None MUSCULOSKELETAL: Some joint pains LYMPHATICS: None HEMATOLOGICAL: None PSYCHIATRY: None NEUROLOGICAL: Generalized weakness Past medical history: Coronary artery disease with stent and bypass, atrial flutter, hypertension, hyperlipidemia, osteoporosis status, BPH, hypothyroid, sigmoid diverticulitis with perforation, intra-abdominal abscess, gout, PTSD, colostomy, pneumonia, Social history: Patient is an ex[employer] . Did smoke a pipe and cigar stopped 1971. Did recently has been between [facility] at [facility]. At home with family. Does use a wheelchair Physical examination: VITAL SIGNS: 98.1, 85, 18, 161/90, 95% room air GENERAL: BMI 32.5-Laying in bed, awake. Comfortable EYES: Pupils equal. Conjunctiva pale HEENT: External appearance of nose and ears normal, oral cavity dry. NECK: JVD unable to assess; masses not palpable. HEART: Heart sounds irregular , no edema. LUNGS: Respiratory rate normal; decreased breath sounds. ABDOMEN: Soft, no tenderness, no guarding no rigidity, liver spleen not palp able, no masses palpable, bowel sounds present. Colostomy bag on the right side. Feeding tube . abdominal wall stoma on the left side, superficial wound with dressing PSYCH: AO - times three. Mood and affect normal NEUROLOGICAL: Cranial nerves grossly intact; no facial asymmetry, decreased pow er both lower extremities, DERMATOLOGICAL: Sacral wound Investigations reviewed in the clinical context White count 7.3 hemoglobin 16.2 platelets 187 potassium 3.9 creatinine 0.70 Pro-calcitonin 0.06 EKG tracing personally reviewed by me-sinus rhythm with right bundle-branch block Assessment: -Chronic sacral wound decubitus growing Pseudomonas as an outpatient. There is no fever no chills. No white count. -Right bundle-branch block -Paroxysmal atrial flutter, currently sinus rhythm -Coronary artery disease with prior history of stent and bypass -Sigmoid colectomy with a resultant colostomy -Hyperlipidemia -Essential hypertension -Primary osteoarthritis -BPH -Hypothyroidism -Chronic gout -PTSD -PEG tube feeding -Patient's is the DPOA, and the elder son is also the agent for medical advocate for the Plan: Consultation made to Dr. Clifford from ID. 4 dose solid dysphagia will consult Dr. Paredes for possible esophageal dilatation. And also removal of the PEG tube. Care was discussed in detail with the patient questions answered. We'll discuss with ID if there is need for antibiotics given the patient's does not have any fever or white count. Past Medical History Past Medical History: Atrial Fibrillation, Atrial Flutter, Coronary Artery Disease (CAD), Chest Pain / Angina, CVA/TIA, Hyperlipidemia, Hypertension, Myocardial Infarction ([place]), Osteoarthritis (OA), Prostate Disorder, Skin Disorder, Thyroid Disorder Additional Past Medical History / Comment(s): Diverticulitis, HX PERFORATION. Gout. Eczema. BPH. Chronic Back Pain D/T PINCHED NERVE, has been bedridden since September. HX VERTIGO. FOOD GETTING STUCK IN THROAT - REMOVAL X3. Last Myocardial Infarction Date:: 08/2015 History of Any Multi-Drug Resistant Organisms: MRSA, Other MDRO, VRE Date of last positivie culture/infection: 07/12/19 MRSA 02/24/19 VRE MDRO Source:: Abdomen-MRSA & VRE Past Surgical History: Bowel Resection, Cardiac Ablation, Coronary Bypass/CABG, Heart Catheterization With Stent, Tonsillectomy Additional Past Surgical History / Comment(s): 02/11/16 Cardiac stent to SVG to diagonal; TOTAL 3 NOW. CABG X3 0n 07/11/15. CYST REMOVED FROM HEART 1958; LEFT TESTICLE REMOVED; МАРИНА CATARACTS. EGD W/ REMOVAL FB X3. Ostomy which failed, and redone. Colostomy since September 2018. Issues with sepsis since. At [facility] family was told Rene had a VAP which was drug resistant, unsure of type, November 2018. 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 Smoking Status: Former smoker Past Alcohol Use History: None Reported Additional Past Alcohol Use History / Comment(s): Hx cigar/pipe smoker from teen. quit smoking 1972 Past Drug Use History: None Reported - Past Family History Mother Family Medical History: Unable to Obtain Additional Family Medical History / Comment(s): Mother had a pacemaker. Father History Unknown: Yes Family Medical History: Myocardial Infarction ([place]) Medications and Allergies Home Medications Medication Instructions Recorded Confirmed Type Nitroglycerin Sl Tabs [Nitrostat] 0.4 mg SL Q5M PRN 02/10/16 04/16/20 History Aspirin 81 mg PO DAILY@0800 04/09/16 04/16/20 History Acetaminophen Tab [Tylenol] 650 mg PO Q4H PRN 01/27/19 04/16/20 History Ondansetron [Zofran] 4 mg PO Q6H PRN 01/27/19 04/16/20 History Enoxaparin [Lovenox] 40 mg SQ DAILY@1700 02/21/19 04/16/20 History Ferrous Sulfate [Iron] 325 mg PO DAILY@0800 02/21/19 04/16/20 History Ipratropium-Albuterol Nebulize 3 ml INHALATION RT-Q6H PRN 02/21/19 04/16/20 History [Duoneb 0.5 mg-3 mg/3 ml Soln] Levothyroxine Sodium [Synthroid] 100 mcg PO DAILY@0800 02/21/19 04/16/20 History Multivitamins, Thera [Multivitamin 1 tab PO DAILY@0800 02/21/19 04/16/20 History (formulary)] Saliva Stimulant Agents Comb.3 1 spray PO TID@0800,1200,1700 02/21/19 04/16/20 History [Biotene Moisturizing Mouth] Tamsulosin HCl [Flomax] 0.4 mg PO HS@209902/21/19 04/16/20 History HYDROcodone/APAP 10-325MG [[place] 1 tab PO Q4H PRN 04/25/19 04/16/20 History 10-325] ALPRAZolam [Xanax] 0.5 mg PO Q8H PRN 04/16/20 04/16/20 History Atorvastatin [Lipitor] 20 mg PO HS 04/16/20 04/16/20 History Baclofen 5 mg PO BID@0800,209904/16/20 04/16/20 History Glimepiride [Amaryl] 2 mg PO AC-BRKFST 04/16/20 04/16/20 History Lidocaine 5% Oint [Xylocaine 5% 1 applic TOPICAL HS PRN 04/16/20 04/16/20 History Oint] Liquacel 30 ml PO TID 04/16/20 04/16/20 History Metoprolol Tartrate [Lopressor] 12.5 mg PO BID 04/16/20 04/16/20 History Mirtazapine [Remeron] 30 mg PO HS@209904/16/20 04/16/20 History Omeprazole 40 mg PO DAILY@0800 04/16/20 04/16/20 History Pregabalin [Lyrica] 75 mg PO BID@0800,209904/16/20 04/16/20 History Sennosides [Senna] 8.6 mg PO BID@0800,1700 04/16/20 04/16/20 History amLODIPine [Norvasc] 2.5 mg PO HS@2100 04/16/20 04/16/20 History Allergies Allergy/AdvReac Type Severity Reaction Status Date / Time No Known Allergies Allergy Verified 04/16/20 11:13 Physical Exam Vitals: Vital Signs Temp Pulse Pulse Resp BP BP Pulse Ox 04/17/20 07:53 97.5 F L 59 L 20 123/67 96 04/17/20 02:15 97.8 F 58 L 20 153/62 94 L 04/16/20 20:45 98.1 F 85 18 161/90 95 04/16/20 16:13 97.6 F 61 18 191/73 98 04/16/20 14:05 98.3 F 71 20 146/80 97 04/16/20 14:00 18 04/16/20 12:03 98.2 F 56 L 16 143/72 95 Intake and Output 04/16/20 04/17/20 04/17/20 22:59 06:59 14:59 Intake Total 200 150 Output Total 150 550 150 Balance 50 -400 -150 Intake: Other 200 150 Output: Urine 150 550 150 Other: # Voids 2 Weight 99.79 kg Results CBC & Chem 7: 04/16/20 11:14 04/16/20 11:14 Labs: Abnormal Lab Results - Last 24 Hours (Table) 04/16/20 04/17/20 Range/Units 11:14 05:42 Chloride 109 H (98-107) mmol/L Glucose 112 H (74-99) mg/dL C-Reactive Protein 10.4 H (<10.0) mg/L Thrombosis Risk Factor Assmnt - Choose All That Apply Any of the Below Risk Factors Present?: Yes Each Risk Factor Represents 3 Points: Age 75 years or older Other congenital or acquired thrombophilia - If yes, enter type in comment: No Thrombosis Risk Factor Assessment Total Risk Factor Score: 3 Thrombosis Risk Factor Assessment Level: Moderate Risk
[2020-04-17] MEDS: ATORVASTATIN 20 MG TAB PO SCH (20:35)
[2020-04-17] MEDS: MIRTAZAPINE 15 MG TAB PO SCH (20:35)
[2020-04-17] MEDS: TAMSULOSIN 0.4 MG CAP.ER.24H PO SCH (20:36)
[2020-04-17] MEDS: amLODIPine 2.5 MG TAB PO SCH (22:17)
--- NOTE | 2020-04-17 22:27 | PN ---
PROGRESS NOTE DATE OF SERVICE: 04/17/2020 REASON FOR FOLLOW UP: Stage II sacral pressure ulcer with a question of secondary cellulitis. INTERVAL HISTORY: The patient is currently afebrile. The patient is breathing comfortably. The patient denies having any chest pain or shortness of breath. No abdominal pain. No pain to the sacral wound area. PHYSICAL EXAMINATION: Blood pressure 102/62 with a pulse of 72, temperature 98.6. He is 95% on room air. General description is an elderly male lying in bed in no distress. Respiratory system: Unlabored breathing, clear to auscultation anteriorly. Heart S1, S2. Regular rate and rhythm. Abdomen soft, no tenderness. LABS: Hemoglobin is 6.1, white count 7.2, BUN of 13, creatinine 0.70. DIAGNOSTIC IMPRESSION AND PLAN: Patient with sacral pressure ulcer currently with no evidence of any secondary cellulitis in this patient. Outpatient cultures were positive for a ( ) Pseudomonas, more likely colonization and not true infection. We will discontinue the antibiotic therapy. Local care to continue, Aquacel dressing to the area, dry and off the pressure and no plan for antibiotic on discharge. This has been discussed in detail with the admitting physician as well as with the son on the phone and both agree with the plan. MMODL / IJN: [id number] /
[2020-04-17 22:57] LABS: Glucose,Whole Blood 87 mg/dL (75-99)
[2020-04-18] MEDS: HYDROcodone/APAP 10-325MG 1 EACH TAB PO PRN ×3 (02:47→19:40)
[2020-04-18 07:43] LABS: Glucose,Whole Blood 91 mg/dL (75-99)
[2020-04-18] MEDS: FERROUS SULFATE 325 MG TAB PO SCH (09:17)
[2020-04-18] MEDS: GLIMEPIRIDE 2 MG TAB PO SCH (09:17)
[2020-04-18] MEDS: MULTIVITAMINS, THERA 1 EACH TAB PO SCH (09:17)
[2020-04-18] MEDS: INSULIN ASPART (NovoLOG) 100 UNIT/ML VIAL SQ SCH ×3 (09:17→16:42)
[2020-04-18] MEDS: PANTOPRAZOLE 40 MG TABLET PO SCH (09:18)
[2020-04-18] MEDS: ASPIRIN 81 MG PO SCH (09:18)
[2020-04-18] MEDS: METOPROLOL TARTRATE 12.5 MG TAB PO SCH ×2 (09:20→19:44)
[2020-04-18] MEDS: BACLOFEN 10 MG TAB PO SCH ×2 (09:21→19:43)
[2020-04-18] MEDS: SENNOSIDES 8.6 MG TAB PO SCH ×2 (09:21→16:40)
[2020-04-18] MEDS: PREGABALIN 75 MG CAP PO SCH ×2 (09:22→19:44)
[2020-04-18] MEDS: LEVOTHYROXINE 100 MCG TAB PO SCH (09:23)
[2020-04-18 11:40] LABS: Glucose,Whole Blood 92 mg/dL (75-99)
[2020-04-18] MEDS: SODIUM CHLORIDE 0.9% 1,000 ML IV SCH (12:24)
[2020-04-18] MEDS ORDERED: IV FLUID CONTINUATION 1,000 ML IV ONE (13:49)
[2020-04-18] MEDS ORDERED: PROPOFOL 10 MG/ML 20 ML VIAL IV ONE (14:03)
[2020-04-18] MEDS ORDERED: LIDOCAINE 1% INJ 10MG/ML (20 ML MDV) ONE (14:03)
--- NOTE | 2020-04-18 14:13 | P.PCN ---
Date of Procedure: 04/18/20 Procedure(s) Performed: BRIEF HISTORY: Patient is a 84-year-old, pleasant, white male with history of recurrent placement 18 months ago for dysphagia. He is doing better now. He has dysphagia occasionally with certain foods. He has not used the PEG tube for feeds for the last 1 month duration.. He scheduled for an upper endoscopy to evaluate further and for PEG tube removal today. PROCEDURE PERFORMED: Esophagogastroduodenoscopy with PEG tube removal. PREOPERATIVE DIAGNOSIS: Dysphagia to certain foods/history of PEG tube placement. IV sedation per anesthesia. PROCEDURE: After informed consent was obtained, the patient was brought into the endoscopy unit. IV sedation was administered by Anesthesia under continuous monitoring. Initially the Olympus GIF-140 video endoscope was inserted into the mouth. Esophagus intubated without any difficulty. It was gradually advanced into the stomach and duodenum and carefully examined. The bulb and the second part of the duodenum appeared normal. The scope at this time was withdrawn to the stomach, adequately insufflated with air, and upon careful examination, mucosa of the antrum, body, cardia and the fundus appeared normal. The balloon from the PEG tube was normal. The scope was then withdrawn into the esophagus. The GE junction was located at 39 cm from the incisors. Small sliding hiatal hernia noted. The esophagus appeared normal. There were no erosions or ulcerations see, no evidence of esophageal stricture n and the patient tolerated the procedure well. At this time the balloon was deflated and the PEG tube was removed without any difficulty. Gauze was applied and the gastrostomy site. Patient tolerated the procedure well. IMPRESSION: 1. Small hiatal hernia. 2. PEG tube removed without any difficulty. RECOMMENDATIONS: The findings of this examination were discussed with the patient . Diet will be advanced as tolerated...
[2020-04-18] MEDS: ENOXAPARIN 40 MG/0.4 ML SYRINGE SQ SCH (16:40)
[2020-04-18 16:43] LABS: Glucose,Whole Blood 94 mg/dL (75-99)
--- NOTE | 2020-04-18 17:54 | P.GSHP ---
History of Present Illness H&P Date: 04/18/20 Chief Complaint: neuropathic nails feet Patient did have a colostomy in the past and had revision that was done at [facility]. Patient's chronic stable medical conditions include gout, BPH, chronic low back pain, large sacral decubitus wound which patient had a wo und VAC in place. Patient also had anterior abdominal wound which she's been healing with secondary intention pt is being seen by podiartic care for foot consult regarding feet and nails - Constitutional Constitutional: Reports as per HPI - EENT Eyes: left as per HPI Ears, nose, mouth and throat: Reports as per HPI - Cardiovascular Cardiovascular: Reports as per HPI - Respiratory Respiratory: Reports as per HPI - Genitourinary (Male) Genitourinary: Denies dysuria, Denies hematuria - Musculoskeletal Comment: pt has [id number] ankles feet due to halfway immobiltiy with contracture of posterior muscle groups and soft tissue - Integumentary Comment: elongated dystrophic nails times ten - Neurological Comment: 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 Gout. Eczema. BPH. Chronic Back Pain D/T PINCHED NERVE, has been bedridden since September. HX VERTIGO. FOOD GETTING STUCK IN THROAT - REMOVAL X3. Last Myocardial Infarction Date:: 08/2015 History of Any Multi-Drug Resistant Organisms: MRSA, Other MDRO, VRE Date of last positivie culture/infection: 07/12/19 MRSA 02/24/19 VRE MDRO Source:: Abdomen-MRSA & VRE Past Surgical History: Bowel Resection, Cardiac Ablation, Coronary Bypass/CABG, Heart Catheterization With Stent, Tonsillectomy Additional Past Surgical History / Comment(s): 02/11/16 Cardiac stent to SVG to diagonal; TOTAL 3 NOW. CABG X3 0n 07/11/15. CYST REMOVED FROM HEART 1958; LEFT TESTICLE REMOVED; МАРИНА CATARACTS. EGD W/ REMOVAL FB X3. Ostomy which failed, and redone. Colostomy since September 2018. Issues with sepsis since. At [facility] family was told Rene had a VAP which was drug resistant, unsure of type, November 2018. 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 Smoking Status: Former smoker Past Alcohol Use History: None Reported Additional Past Alcohol Use History / Comment(s): Hx cigar/pipe smoker from teen. quit smoking 1972 Past Drug Use History: None Reported - Past Family History Mother Family Medical History: Unable to Obtain Additional Family Medical History / Comment(s): Mother had a pacemaker. Father History Unknown: Yes Family Medical History: Myocardial Infarction ([place]) Medications and Allergies Home Medications Medication Instructions Recorded Confirmed Type Nitroglycerin Sl Tabs [Nitrostat] 0.4 mg SL Q5M PRN 02/10/16 04/16/20 History Aspirin 81 mg PO DAILY@0800 04/09/16 04/16/20 History Acetaminophen Tab [Tylenol] 650 mg PO Q4H PRN 01/27/19 04/16/20 History Ondansetron [Zofran] 4 mg PO Q6H PRN 01/27/19 04/16/20 History Enoxaparin [Lovenox] 40 mg SQ DAILY@1700 02/21/19 04/16/20 History Ferrous Sulfate [Iron] 325 mg PO DAILY@0800 02/21/19 04/16/20 History Ipratropium-Albuterol Nebulize 3 ml INHALATION RT-Q6H PRN 02/21/19 04/16/20 History [Duoneb 0.5 mg-3 mg/3 ml Soln] Levothyroxine Sodium [Synthroid] 100 mcg PO DAILY@0800 02/21/19 04/16/20 History Multivitamins, Thera [Multivitamin 1 tab PO DAILY@0800 02/21/19 04/16/20 History (formulary)] Saliva Stimulant Agents Comb.3 1 spray PO TID@0800,1200,1700 02/21/19 04/16/20 History [Biotene Moisturizing Mouth] Tamsulosin HCl [Flomax] 0.4 mg PO HS@2100 02/21/19 04/16/20 History HYDROcodone/APAP 10-325MG [[place] 1 tab PO Q4H PRN 04/25/19 04/16/20 History 10-325] ALPRAZolam [Xanax] 0.5 mg PO Q8H PRN 04/16/20 04/16/20 History Atorvastatin [Lipitor] 20 mg PO HS 04/16/20 04/16/20 History Baclofen 5 mg PO BID@0800,2100 04/16/20 04/16/20 History Glimepiride [Amaryl] 2 mg PO AC-BRKFST 04/16/20 04/16/20 History Lidocaine 5% Oint [Xylocaine 5% 1 applic TOPICAL HS PRN 04/16/20 04/16/20 Hist ory Oint] Liquacel 30 ml PO TID 04/16/20 04/16/20 History Metoprolol Tartrate [Lopressor] 12.5 mg PO BID 04/16/20 04/16/20 History Mirtazapine [Remeron] 30 mg PO HS@209904/16/20 04/16/20 History Omeprazole 40 mg PO DAILY@0800 04/16/20 04/16/20 History Pregabalin [Lyrica] 75 mg PO BID@0800,2100 04/16/20 04/16/20 History Sennosides [Senna] 8.6 mg PO BID@0800,1700 04/16/20 04/16/20 History amLODIPine [Norvasc] 2.5 mg PO HS@209904/16/20 04/16/20 History Allergies Allergy/AdvReac Type Severity Reaction Status Date / Time No Known Allergies Allergy Verified 04/16/20 11:13 Surgical - Exam Vital Signs Temp Pulse Resp BP Pulse Ox 98.1 F 67 20 133/77 97 04/16/20 10:36 04/16/20 10:36 04/16/20 10:36 04/16/20 10:36 04/16/20 10:36 - Cardiovascular He'll pulses nonpalpable bilateral skin temperature texture tumor decreased bilateral no digital hair 10 - Integumentary DYSTRPHIC NAILS TIMES TEN - Neurologic POLYNEUROPATHY BILATERAL - Musculoskeletal Contracture posterior muscle group bilateral all inverters everters plantar flexors dorsiflexors diminished bilateral has a fixed equinus deformity due to Results - Labs 04/16/20 11:14 04/16/20 11:14 Microbiology - Last 24 Hours (Table) 04/16/20 11:14 Blood Culture - Preliminary Blood No Growth after 48 hours Assessment and Plan Assessment: Dystrophic nails 10 with polyneuropathy bilateral peripheral vascular disease bilateral Plan: Exam discussed with patient findings and treatment plan. Would benefit from debridement of these nails manually. Times 10 Time with Patient: Greater than 30
--- NOTE | 2020-04-18 18:15 | PN ---
PROGRESS NOTE DATE OF SERVICE: 04/18/2020 REASON FOR FOLLOWUP: Stage II sacral pressure ulcer and a question of secondary cellulitis. INTERVAL HISTORY: The patient is currently afebrile. The patient is breathing comfortably. Denies having any chest pain or shortness of breath. No cough. No nausea. No abdominal pain or pain to the sacral wound area. PHYSICAL EXAMINATION: Blood pressure 157/59, pulse of 56, temp is 99.6, 97% on room air. General description is an elderly male lying in bed in no distress. Respiratory system: Unlabored breathing, clear to auscultation anteriorly. Heart S1, S2. Regular rate and rhythm. Abdomen soft, no tenderness. LABS: No new labs have been obtained today. DIAGNOSTIC IMPRESSION AND PLAN: Patient with stage II sacral pressure ulcer with outpatient culture positive for drug resistant Pseudomonas. However, clinically no evidence of any cellulitis. No white count. No fever. More likely due to colonizer. I recommend local wound care only and no need for systemic antibiotics. Continue supportive care. MMODL / IJN: [id number] /
--- NOTE | 2020-04-18 19:06 | CONS ---
CONSULTATION DATE OF SERVICE: 04/17/2020 REASON FOR CONSULTATION: Dysphagia and PEG tube removal. HISTORY OF PRESENT ILLNESS: The patient is an 84-year-old pleasant white male who had perforated sigmoid diverticulitis in October of 2018 at which time he required sigmoid colectomy and subsequently had a PEG tube placed at that time for decline in his overall condition. Since then the patient has been doing well. He underwent reversal of the colostomy. He does have a wound VAC placed on the lower half of the had abdominal wall wound for which he follows with Dr. Woodward and Dr. Park. The patient will be considered for evaluation of intermittent dysphagia with certain foods and also for PEG tube removal. The patient states that for the last one month he has not used the PEG tube and his nutritional status has been good. He denies any weight loss. He reports no abdominal pain. No nausea, vomiting. He usually has some dysphagia with bread and certain kinds of foods. PAST MEDICAL HISTORY: Significant for atrial fibrillation, a-flutter, coronary artery disease, CVA, hyperlipidemia, hypertension, coronary artery disease status post IA in the past, hypothyroidism and skin disorder. PAST SURGICAL HISTORY: Sigmoid colectomy with colostomy followed by reversal, history of cardiac ablation, CABG, tonsillectomy, cardiac cath with stent, bilateral cataract surgery, left testicle removed. MEDICATIONS: Medications at home include Nitrostat, aspirin, Tylenol, Zofran, Lovenox IM, DuoNeb, Synthroid, multivitamin, Flomax, [place], Xanax, Amaryl, Lipitor, Remeron, Lopressor, Lyrica, Senna, Norvasc omeprazole. ALLERGIES: None. SOCIAL HISTORY: No smoking, no alcohol use. FAMILY HISTORY: Mother had a pacemaker. Father had coronary artery disease. REVIEW OF SYSTEMS: CARDIOPULMONARY: He denies any chest pain or shortness of breath. : No dysuria or hematuria. MUSCULOSKELETAL: Unremarkable. SKIN: Unremarkable. ENDOCRINE: Unremarkable. PSYCHIATRIC: Unremarkable. NEUROLOGY: Unremarkable. ENT/VISION: Unremarkable. CONSTITUTIONAL: No recent weight loss. No fever, chills night sweats. PHYSICAL EXAMINATION: He appears comfortable. No apparent distress. Vital signs stable. Blood pressure is 133/86, pulse rate 82 per minute and afebrile. HEENT examination unremarkable. Conjunctivae pink. Sclerae anicteric. Oral cavity no lesions. NECK: No JVD. No lymph node enlargement. CHEST was clear to auscultation. HEART: Regular rate and rhythm. ABDOMEN: Soft, it was obese. PEG tube in place. There is an open wound in the lower abdomen which was bandaged. EXTREMITIES: No pedal edema. NEUROLOGIC: Alert and oriented x3. No focal deficits. LABS: From April 16, WBC 7.3, hemoglobin 16.2, platelets normal. Basic metabolic panel is within normal limits. IMPRESSION: 1. Intermittent dysphagia to solids with certain foods. The patient had a PEG tube placed about 18 months ago, in October of 2018 and for the last one month he has not used the PEG tube and is requesting for the PEG tube removal today. However, he does complain of intermittent dysphagia to solids, especially with bread and certain foods. 2. Open wound in the anterior abdominal wall for which Dr. Park is following the patient closely and presently on antibiotics. 3. History of diabetes mellitus. 4. History of hypertension and hyperlipidemia. 5. History of coronary artery disease. RECOMMENDATION: We will schedule him for EGD and if there is no evidence of esophageal stricture or any other significant esophageal pathology, we will plan on PEG tube removal at the same time. He understands risks, benefits and complications of procedure and he is agreeable to it. In the meantime, continue with symptomatic and supportive care. Continue current medications. We will follow with you closely. Thank you for this consultation. MARITA / TOM: [id number] /
[2020-04-18] MEDS: TAMSULOSIN 0.4 MG CAP.ER.24H PO SCH (19:42)
[2020-04-18] MEDS: MIRTAZAPINE 15 MG TAB PO SCH (19:42)
[2020-04-18] MEDS: ATORVASTATIN 20 MG TAB PO SCH (19:44)
[2020-04-18] MEDS: amLODIPine 2.5 MG TAB PO SCH (19:45)
[2020-04-18 20:43] LABS: Glucose,Whole Blood 132 mg/dL (75-99)
--- NOTE | 2020-04-18 23:27 | P.PN ---
Progress Note - Text Progress Note Date: 04/18/20 Chief Complaint: Positive wound culture Hospital course: This is a 84-year-old patient of Dr. Lopez. October 2018. - acute perforated diverticulitis. Had a sigmoid colectomy, had a drain in place with partial closure of the incision. Also had wound VAC on the lower half of the abdominal wall. Patient being followed by Dr. Woodward from general surgery and Dr. Park from infectious disease. Patient was [facility]. Patient has couple of times back and forth from [facility] to [facility]. Patient did have a colostomy in the past and had revision that was done at [facility]. Patient's chronic stable medical conditions include gout, BPH, chronic low back pain, large sacral decubitus wound which patient had a wound VAC in place. Patient also had anterior abdominal wound which she's been healing with secondary intention. Also had admission when he was transferred to [facility] to be followed by Dr. Carter segundo team. Patient's currently at home. He was sent in because cultures were done that were growing Pseudomonas. Patient denies any fever and chills. Some local discomfort to the sacral area. Patient does come been a some difficulty with swallowing with solids especially bread. About 5 years ago he had esophageal dilatation. Patient not use suspect due for close to a year. Patient has abdominal wall wounds. Dressing on the same. No fever no chills. Has a colostomy bag.. Patient seen Dr. Clifford from [place]. It felt that the culture results were colonization. No indication for antibiotics. Today-comfortable. Later this afternoon patient is to go down for EGD. EGD did not reveal any stricture. PEG tube was removed. Review of systems: Was done for constitutional, cardiovascular, GI, pulmonary. relevant finding as above Active Medications Acetaminophen (Acetaminophen Tab 325 Mg Tab) 650 mg PO Q6HR PRN PRN Reason: Mild Pain or Fever > 100.5 Last Admin: 04/16/20 17:09 Dose: 650 mg Documented by: Hydrocodone Bitart/Acetaminophen (Hydrocodone/Apap 10-325mg 1 Each Tab) 1 each PO Q4H PRN PRN Reason: Pain Last Admin: 04/18/20 19:40 Dose: 1 each Documented by: Albuterol/Ipratropium (Ipratropium-Albuterol 3 Ml Neb) 3 ml INHALATION RT-Q6H PRN PRN Reason: Shortness Of Breath Alprazolam (Alprazolam 0.5 Mg Tab) 0.5 mg PO Q8H PRN PRN Reason: Anxiety Amlodipine Besylate (Amlodipine 2.5 Mg Tab) 2.5 mg PO HS@2100 [facility] Last Admin: 04/18/20 19:45 Dose: 2.5 mg Documented by: Aspirin (Aspirin 81 Mg) 81 mg PO DAILY@0800 [facility] Last Admin: 04/18/20 09:18 Dose: Not Given Documented by: Atorvastatin Calcium (Atorvastatin 20 Mg Tab) 20 mg PO HS [facility] Last Admin: 04/18/20 19:44 Dose: 20 mg Documented by: Baclofen (Baclofen 10 Mg Tab) 5 mg PO BID@0800,2100 [facility] Last Admin: 04/18/20 19:43 Dose: 5 mg Documented by: Enoxaparin Sodium (Enoxaparin 40 Mg/0.4 Ml Syringe) 40 mg SQ DAILY@1700 [facility] Last Admin: 04/18/20 16:40 Dose: 40 mg Documented by: Ferrous Sulfate (Ferrous Sulfate 325 Mg Tab) 325 mg PO DAILY@0800 [facility] Last Admin: 04/18/20 09:17 Dose: Not Given Documented by: Glimepiride (Glimepiride 2 Mg Tab) 2 mg PO AC-BRKFST [facility] Last Admin: 04/18/20 09:17 Dose: Not Given Documented by: Sodium Chloride (Saline 0.9%) 1,000 mls @ 20 mls/hr IV .Q24H [facility] Last Admin: 04/18/20 12:24 Dose: Not Given Documented by: Insulin Aspart (Insulin Aspart (Novolog) 100 Unit/Ml Vial) 0 unit SQ AC-TID [facility]; Protocol Last Admin: 04/18/20 16:42 Dose: Not Given Documented by: Levothyroxine Sodium (Levothyroxine 100 Mcg Tab) 100 mcg PO DAILY@0800 [facility] Last Admin: 04/18/20 09:23 Dose: 100 mcg Documented by: Lidocaine (Lidocaine 5% Ointment 50 Gm Jar) 1 applic TOPICAL HS PRN PRN Reason: PROCEDURE Metoprolol Tartrate (Metoprolol Tartrate 12.5 Mg Tab) 12.5 mg PO BID [facility] Last Admin: 04/18/20 19:44 Dose: 12.5 mg Documented by: Mirtazapine (Mirtazapine 15 Mg Tab) 30 mg PO HS@2100 [facility] Last Admin: 04/18/20 19:42 Dose: 30 mg Documented by: Multivitamins (Multivitamins, Thera 1 Each Tab) 1 each PO DAILY@0800 [facility] Last Admin: 04/18/20 09:17 Dose: Not Given Documented by: Naloxone HCl (Naloxone 0.4 Mg/Ml 1 Ml Vial) 0.2 mg IV Q2M PRN PRN Reason: Opioid Reversal Nitroglycerin (Nitroglycerin Sl Tabs 0.4 Mg Tab) 0.4 mg SUBLINGUAL Q5M PRN PRN Reason: Chest Pain Ondansetron HCl (Ondansetron 4 Mg Tab) 4 mg PO Q6H PRN PRN Reason: Nausea Pantoprazole Sodium (Pantoprazole 40 Mg Tablet) 40 mg PO DAILY@0800 [facility] Last Admin: 04/18/20 09:18 Dose: Not Given Documented by: Pregabalin (Pregabalin 75 Mg Cap) 75 mg PO BID@0800,2100 [facility] Last Admin: 04/18/20 19:44 Dose: 75 mg Documented by: Senna (Sennosides 8.6 Mg Tab) 8.6 mg PO BID@0800,1700 [facility] Last Admin: 04/18/20 16:40 Dose: 8.6 mg Documented by: Tamsulosin HCl (Tamsulosin 0.4 Mg Cap.Er.24h) 0.4 mg PO HS@2100 [facility] Last Admin: 04/18/20 19:42 Dose: 0.4 mg Documented by: Past medical history: Coronary artery disease with stent and bypass, atrial flutter, hypertension, hyperlipidemia, osteoporosis status, BPH, hypothyroid, sigmoid diverticulitis with perforation, intra-abdominal abscess, gout, PTSD, colostomy, pneumonia, Social history: Patient is an [employer] . Did smoke a pipe and cigar stopped 1971. Did recently has been between select specialty at [facility]. At home with family. Does use a wheelchair Physical examination: VITAL SIGNS: 97.4, 62, 18, 151/75, 94% room air GENERAL: BMI 32.5-Laying in bed, awake. Comfortable EYES: Pupils equal. Conjunctiva pale HEENT: External appearance of nose and ears normal, oral cavity dry. NECK: JVD unable to assess; masses not palpable. HEART: Heart sounds irregular , no edema. LUNGS: Respiratory rate normal; decreased breath sounds. ABDOMEN: Soft, no tenderness, no guarding no rigidity, liver spleen not palpable, no masses palpable, bowel sounds present. Colostomy bag on the right side. Feeding tube . abdominal wall stoma on the left side, superficial wound with dressing PSYCH: AO - times three. Mood and affect normal NEUROLOGICAL: Cranial nerves grossly intact; no facial asymmetry, decreased power both lower extremities, DERMATOLOGICAL: Sacral wound Investigations reviewed in the clinical context White count 7.3 hemoglobin 16.2 platelets 187 potassium 3.9 creatinine 0.70 Pro-calcitonin 0.06 EKG tracing personally reviewed by me-sinus rhythm with right bundle-branch block Assessment: -Chronic sacral wound decubitus growing Pseudomonas as an outpatient. There is no fever no chills. No white count. -Right bundle-branch block -Paroxysmal atrial flutter, currently sinus rhythm -Coronary artery disease with prior history of stent and bypass -Sigmoid colectomy with a resultant colostomy -Hyperlipidemia -Essential hypertension -Primary osteoarthritis -BPH -Hypothyroidism -Chronic gout -PTSD -PEG tube has not been used for a year.-Removed -Patient's is the DPOA, and the elder son is also the agent for medical advocate for the -EGD-does not reveal any stricture. Plan: Continue current medication treatment plan. No antibiotics. Hopefully can be discharged home tomorrow. We will communicate with her son.
[2020-04-19 06:58] LABS: Glucose,Whole Blood 84 mg/dL (75-99)
[2020-04-19 07:40] VITALS: BP 152/73; PULSE 58; RESP 18; TEMP 97.5
[2020-04-19] MEDS: INSULIN ASPART (NovoLOG) 100 UNIT/ML VIAL SQ SCH ×2 (07:57→12:59)
[2020-04-19] MEDS: METOPROLOL TARTRATE 12.5 MG TAB PO SCH (08:35)
[2020-04-19] MEDS: GLIMEPIRIDE 2 MG TAB PO SCH (08:35)
[2020-04-19] MEDS: ASPIRIN 81 MG PO SCH (08:35)
[2020-04-19] MEDS: SENNOSIDES 8.6 MG TAB PO SCH (08:36)
[2020-04-19] MEDS: FERROUS SULFATE 325 MG TAB PO SCH (08:36)
[2020-04-19] MEDS: BACLOFEN 10 MG TAB PO SCH (08:36)
[2020-04-19] MEDS: MULTIVITAMINS, THERA 1 EACH TAB PO SCH (08:36)
[2020-04-19] MEDS: PANTOPRAZOLE 40 MG TABLET PO SCH (08:36)
[2020-04-19] MEDS: PREGABALIN 75 MG CAP PO SCH (08:36)
[2020-04-19] MEDS: LEVOTHYROXINE 100 MCG TAB PO SCH (08:36)
[2020-04-19 10:56] LABS: Glucose,Whole Blood 105 mg/dL (75-99)
[2020-04-19] MEDS: HYDROcodone/APAP 10-325MG 1 EACH TAB PO PRN (11:18)
--- NOTE | 2020-04-19 11:19 | PN ---
PROGRESS NOTE DATE OF SERVICE: 04/19/2020 Patient is an 84-year-old white male admitted to the hospital with anterior abdominal wall wound infection and presently on antibiotics. He underwent an EGD with a PEG tube removal yesterday. Upper endoscopy revealed normal-appearing esophagus with no evidence of esophageal stricture. The PEG tube was removed without any difficulty. The patient is on a regular diet, tolerating well. He denies any new symptoms. PHYSICAL EXAMINATION: He appears comfortable. VITAL SIGNS: Stable. Blood pressure is 132/73, pulse rate 78, temperature 97.5. HEENT examination unremarkable. Conjunctivae pink. Sclerae anicteric. Oral cavity no lesions. NECK no JVD. No lymph node enlargement. CHEST was clear auscultation. HEART: Regular rate and rhythm. ABDOMEN: Soft. Bowel sounds are positive. No organomegaly. The PEG tube gastrostomy site appears normal. There was some serosanguineous fluid noted. Anterior abdominal wall has a wound which has been bandaged. EXTREMITIES: No pedal edema. NEUROLOGIC: Alert and oriented x3. No focal deficits. IMPRESSION: 1. Intermittent dysphagia to certain foods, status post EGD yesterday that did not show any evidence of esophageal stricture. The patient on a regular diet, tolerating well. 2. PEG tube removal yesterday. 3. Anterior abdominal wall wound infection, on antibiotics. RECOMMENDATION: 1. Advance diet as tolerated. 2. Avoid foods that cause dysphagia. 3. Continue current management with symptomatic and supportive care and broad-spectrum antibiotics. 4. Will sign off at this time. Please call us if needed. Thank you for this consultation. MMODL / IJN: [id number] /
[2020-04-19] MEDS: SODIUM CHLORIDE 0.9% 1,000 ML IV SCH (12:58)
--- NOTE | 2020-04-19 16:31 | PN ---
PROGRESS NOTE DATE OF SERVICE: 04/19/2020 REASON FOR FOLLOWUP: Sacral pressure ulcer and a question of secondary infection. INTERVAL HISTORY: The patient was seen on rounds early this afternoon. The patient has been afebrile. The patient is feeling better, breathing comfortably. Denies having any chest pain or shortness of breath or cough. No abdominal pain or pain to the sacral wound area. PHYSICAL EXAMINATION: Blood pressure 152/73 with a pulse of 58, temperature 97.5. He is 95% on room air. General description is an elderly male lying in bed in no distress. No tachypnea or accessory muscle of respiration use. RESPIRATORY SYSTEM: Unlabored breathing. Clear to auscultation anteriorly. HEART: S1, S2. Regular rate and rhythm. ABDOMEN: Soft. No tenderness. Sacral wound is currently dressed. DIAGNOSTIC IMPRESSION AND PLAN: Patient admitted to hospital with outpatient culture positive for drug-resistant Pseudomonas sacral wound. However, there was no evidence of any secondary cellulitis. The patient has no fever, no white count; more likely colonization. Recommending no antibiotic on discharge. Local care to continue with Aquacel Silver dressing. Keep the area dry and off pressure. MMODL / IJN: [id number] /
--- NOTE | 2020-04-19 23:42 | P.DS ---
Providers Date of admission: 04/16/20 11:55 Expected date of discharge: 04/19/20 Attending physician: Cosme Colon Consults: 04/16/20 10:57 Consult Physician Routine Consulting Provider: Gerald Park Consult Reason/Comments: multidrug resistant wound infection Do you want consulting provider notified?: Yes 04/17/20 11:21 Consult Physician Routine Consulting Provider: Fiona Colin Consult Reason/Comments: difficulty with solids Do you want consulting provider notified?: Yes 04/17/20 12:20 Consult Physician Routine Consulting Provider: Thad Casillas Consult Reason/Comments: condition of nails/feet Do you want consulting provider notified?: Yes Primary care physician: Dilshad Lopez [facility] Course: Chief Complaint: Positive wound culture Hospital course: This is a 84-year-old patient of Dr. Lopez. October 2018. - acute perforated diverticulitis. Had a sigmoid colectomy, had a drain in place with partial closure of the incision. Also had wound VAC on the lower half of the abdominal wall. Patient being followed by Dr. Woodward from general surgery and Dr. Park from infectious disease. Patient was discharged to [facility]. Patient has couple of times back and forth from [facility] to [facility]. Patient did have a colostomy in the past and had revision that was done at [facility]. Patient's chronic stable medical conditions include gout, BPH, chronic low back pain, large sacral decubitus wound which patient had a wound VAC in place. Patient also had anterior abdominal wound which she's been healing with secondary intention. Also had admission when he was transferred to [facility] to be followed by Dr. Machado dose team. Patient's currently at home. He was sent in because cultures were done that were growing Pseudomonas. Patient denies any fever and chills. Some local discomfort to the sacral area. Patient does come been a some difficulty with swallowing with solids especially bread. About 5 years ago he had esophageal dilatation. Patient not use suspect due for close to a year. Patient has abdominal wall wounds. Dressing on the same. No fever no chills. Has a colostomy bag.. Patient seen Dr. Clifford from [place]. It felt that the culture results were colonization. No indication for antibiotics. EGD did not reveal any stricture. PEG tube was removed. Today-comfortable. Spoke dose patient sounds [place] the phone at length. Questions answered. Because Accu-Cheks are running low. Amaryl discontinued. Accu-Cheks to be checked daily at home. Discussed with patient. Discussion and discharge planning more than 35 minutes Consultation: Dr. Rashida Colin from GI Past medical history: Coronary artery disease with stent and bypass, atrial flutter, hypertension, hyperlipidemia, osteoporosis status, BPH, hypothyroid, sigmoid diverticulitis with perforation, intra-abdominal abscess, gout, PTSD, colostomy, pneumonia, Social history: Patient is an [employer] . Did smoke a pipe and cigar stopped 1971. Did recently has been between select specialty at [facility]. At home with family. Does use a wheelchair Physical examination: VITAL SIGNS: 97.5, 58, 18, 1 52 x 73, 95% room air GENERAL: -Laying in bed, awake. Comfortable EYES: Pupils equal. Conjunctiva pale HEENT: External appearance of nose and ears normal, oral cavity dry. NECK: JVD unable assess; masses not palpable. HEART: Heart sounds irregular , no edema. LUNGS: Respiratory rate normal; decreased breath sounds. ABDOMEN: Soft, no tenderness, no guarding no rigidity, liver spleen not palpable, no masses palpable, bowel sounds present. Colostomy bag on the right side. Feeding tube . abdominal wall stoma on the left side, superficial wound with dressing PSYCH: AO - times three. Mood and affect normal NEUROLOGICAL: Cranial nerves grossly intact; no facial asymmetry, decreased power both lower extremities, DERMATOLOGICAL: Sacral wound Investigations reviewed in the clinical context White count 7.3 hemoglobin 16.2 platelets 187 potassium 3.9 creatinine 0.70 Pro-calcitonin 0.06 EKG tracing personally reviewed by me-sinus rhythm with right bundle-branch block Assessment: -Chronic sacral wound decubitus growing Pseudomonas as an outpatient. There is no fever no chills. No white count.-No need for treatment. [place] to be colonization. -Right bundle-branch block -Paroxysmal atrial flutter, currently sinus rhythm -Coronary artery disease with prior history of stent and bypass -Sigmoid colectomy with a resultant colostomy -Hyperlipidemia -Essential hypertension -Primary osteoarthritis -BPH -Hypothyroidism -Chronic gout -PTSD -PEG tube has not been used for a year.-Removed -Patient's is the DPOA, and the elder son is also the agent for medical advocate for the -EGD-does not reveal any stricture. Disposition: Home Patient Condition at Discharge: Stable Plan - Discharge Summary Discharge Rx Participant: Yes New Discharge Prescriptions: Continue Nitroglycerin Sl Tabs [Nitrostat] 0.4 mg SL Q5M PRN PRN Reason: Chest Pain Aspirin 81 mg PO DAILY@0800 Ondansetron [Zofran] 4 mg PO Q6H PRN PRN Reason: Nausea Acetaminophen Tab [Tylenol] 650 mg PO Q4H PRN PRN Reason: Pain Ipratropium-Albuterol Nebulize [Duoneb 0.5 mg-3 mg/3 ml Soln] 3 ml INHALATION RT-Q6H PRN PRN Reason: Shortness Of Breath Saliva Stimulant Agents Comb.3 [Biotene Moisturizing Mouth] 1 spray PO TID@0800,1200,1700 Levothyroxine Sodium [Synthroid] 100 mcg PO DAILY@0800 Multivitamins, Thera [Multivitamin (formulary)] 1 tab PO DAILY@0800 Ferrous Sulfate [Iron] 325 mg PO DAILY@0800 Tamsulosin HCl [Flomax] 0.4 mg PO HS@2100 Enoxaparin [Lovenox] 40 mg SQ DAILY@1700 HYDROcodone/APAP 10-325MG [Fed[place]reek 10-325] 1 tab PO Q4H PRN PRN Reason: Pain Liquacel 30 ml PO TID ALPRAZolam [Xanax] 0.5 mg PO Q8H PRN PRN Reason: Anxiety amLODIPine [Norvasc] 2.5 mg PO HS@2100 Atorvastatin [Lipitor] 20 mg PO HS Baclofen 5 mg PO BID@0800,2100 Lidocaine 5% Oint [Xylocaine 5% Oint] 1 applic TOPICAL HS PRN PRN Reason: PROCEDURE Mirtazapine [Remeron] 30 mg PO HS@2100 Omeprazole 40 mg PO DAILY@0800 Pregabalin [Lyrica] 75 mg PO BID@0800,2100 Sennosides [Senna] 8.6 mg PO BID@0800,1700 Metoprolol Tartrate [Lopressor] 12.5 mg PO BID Discontinued Glimepiride [Amaryl] 2 mg PO AC-BRKFST Discharge Medication List Nitroglycerin Sl Tabs [Nitrostat] 0.4 mg SL Q5M PRN 02/10/16 [History] Aspirin 81 mg PO DAILY@0800 04/09/16 [History] Acetaminophen Tab [Tylenol] 650 mg PO Q4H PRN 01/27/19 [History] Ondansetron [Zofran] 4 mg PO Q6H PRN 01/27/19 [History] Enoxaparin [Lovenox] 40 mg SQ DAILY@17002/21/19 [History] Ferrous Sulfate [Iron] 325 mg PO DAILY@0802/21/19 [History] Ipratropium-Albuterol Nebulize [Duoneb 0.5 mg-3 mg/3 ml Soln] 3 ml INHALATION RT-Q6H PRN 02/21/19 [History] Levothyroxine Sodium [Synthroid] 100 mcg PO DAILY@79902/21/19 [History] Multivitamins, Thera [Multivitamin (formulary)] 1 tab PO DAILY@0802/21/19 [History] Saliva Stimulant Agents Comb.3 [Biotene Moisturizing Mouth] 1 spray PO TID@0800,1200,1700 02/21/19 [History] Tamsulosin HCl [Flomax] 0.4 mg PO HS@209902/21/19 [History] HYDROcodone/APAP 10-325MG [[place] 10-325] 1 tab PO Q4H PRN 04/25/19 [History] ALPRAZolam [Xanax] 0.5 mg PO Q8H PRN 04/16/20 [History] Atorvastatin [Lipitor] 20 mg PO HS 04/16/20 [History] Baclofen 5 mg PO BID@0800,209904/16/20 [History] Lidocaine 5% Oint [Xylocaine 5% Oint] 1 applic TOPICAL HS PRN 04/16/20 [History] Liquacel 30 ml PO TID 04/16/20 [History] Metoprolol Tartrate [Lopressor] 12.5 mg PO BID 04/16/20 [History] Mirtazapine [Remeron] 30 mg PO HS@209904/16/20 [History] Omeprazole 40 mg PO DAILY@0800 04/16/20 [History] Pregabalin [Lyrica] 75 mg PO BID@0800,209904/16/20 [History] Sennosides [Senna] 8.6 mg PO BID@0800,1700 04/16/20 [History] amLODIPine [Norvasc] 2.5 mg PO HS@209904/16/20 [History] Follow up Appointment(s)/Referral(s): Dilshad Lopez DO [Primary Care Provider] - 1-2 days [facility], [NON-STAFF] - 1-2 Days [facility]fusion [NON-STAFF] - 1 Week Patient Instructions/Handouts: Cellulitis (DC) Activity/Diet/Wound Care/Special Instructions: soft diet ac - daily keep log Discharge Disposition: HOME WITH HOME HEALTH SERVICES
== END 2020-04-19 15:48 | disposition home health service (06) | DRG 593 ==
LOC: EC 10:35 → 5NMEDONC 11:55
PROVIDERS: ADMIT Hospitalist; ATTEND Hospitalist
PROC: 0DJ08ZZ Inspection of Upper Intestinal Tract, Via Natural or Artificial Opening Endoscopic (ICD-10-PCS; principal; 2020-04-18 13:00)
PROC: 0DP68UZ Removal of Feeding Device from Stomach, Via Natural or Artificial Opening Endoscopic (ICD-10-PCS; principal; 2020-04-18 13:00)
DX: L89.152 Pressure ulcer of sacral region, stage 2 (principal); I48.92 Unspecified atrial flutter; L03.312 Cellulitis of back [any part except buttock and flank]; Z16.24 Resistance to multiple antibiotics; Z43.1 Encounter for attention to gastrostomy; K44.9 Diaphragmatic hernia without obstruction or gangrene; B96.5 Pseudomonas (aeruginosa) (mallei) (pseudomallei) as the cause of diseases classified elsewhere; M19.91 Primary osteoarthritis, unspecified site; M1A.9XX0 Chronic gout, unspecified, without tophus (tophi); M81.0 Age-related osteoporosis without current pathological fracture; N40.0 Benign prostatic hyperplasia without lower urinary tract symptoms; R13.10 Dysphagia, unspecified; E03.9 Hypothyroidism, unspecified; E11.40 Type 2 diabetes mellitus with diabetic neuropathy, unspecified; Z79.84 Long term (current) use of oral hypoglycemic drugs; E11.51 Type 2 diabetes mellitus with diabetic peripheral angiopathy without gangrene; E78.5 Hyperlipidemia, unspecified; F43.10 Post-traumatic stress disorder, unspecified; F51.4 Sleep terrors [night terrors]; G89.29 Other chronic pain; I10 Essential (primary) hypertension; M54.5 Low back pain; I25.10 Atherosclerotic heart disease of native coronary artery without angina pectoris; I25.2 Old myocardial infarction; I45.10 Unspecified right bundle-branch block; I48.91 Unspecified atrial fibrillation; Z79.82 Long term (current) use of aspirin; Z79.890 Hormone replacement therapy; Z79.899 Other long term (current) drug therapy; Z82.49 Family history of ischemic heart disease and other diseases of the circulatory system; Z86.73 Personal history of transient ischemic attack (TIA), and cerebral infarction without residual deficits; Z87.891 Personal history of nicotine dependence; Z90.79 Acquired absence of other genital organ(s); Z95.1 Presence of aortocoronary bypass graft; Z95.5 Presence of coronary angioplasty implant and graft; Z98.42 Cataract extraction status, left eye; Z98.41 Cataract extraction status, right eye; Z74.01 Bed confinement status; Z87.01 Personal history of pneumonia (recurrent); Z86.14 Personal history of Methicillin resistant Staphylococcus aureus infection
CPT/HCPCS: 36415; 43246; 80053; 83605; 84145; 85025; 85610; 85652; 85730; 86140; 87040; 93005; 96365; 96366; 99285

== ENCOUNTER 2020-10-22 21:46 | Inpatient (IN) | payer MEDICARE, OTHER ==
[2020-10-22] MEDS ORDERED: SODIUM CHLORIDE 0.9% 500 ML 500 ML IV STA (22:35)
[2020-10-22] MEDS ORDERED: PIPERACILLIN-TAZOBACTAM 3.375 GM in SODIUM CHLORIDE 0.9% 100 ML IVPB STA (22:35)
[2020-10-22] MEDS ORDERED: SODIUM CHLORIDE 0.9% 1,000 ML IV ONE (22:35)
[2020-10-22] MEDS ORDERED: SODIUM CHLORIDE 0.9% 1,000 ML IV STA (22:35)
--- NOTE | 2020-10-22 22:40 | ED ---
Fever HPI - General Chief Complaint: Altered Mental Status Stated Complaint: Fever, Altered Time Seen by Provider: 10/22/20 22:09 Source: EMS Mode of arrival: EMS Limitations: altered mental status - History of Present Illness Initial Comments: 's patient is an 85-year-old man brought here for evaluation of fever. The patient had not been feeling well today. Patient states she is not having specific symptoms, just not feeling well and was anxious. Patient's family checked his temperature and it was 103. He did have Tylenol for the fever. They then phoned EMS and he was transported here for evaluation. The patient is denying specific symptoms of infection. He has not noted congestion, cough, sore throat. No chest pain, dyspnea. He has not noted change in urination or bowel movements. MD Complaint: fever, malaise -: hour(s) Temperature Source: oral Treatments Prior to Arrival: Acetaminophen - Related Data Home Medications Medication Instructions Recorded Confirmed Nitroglycerin Sl Tabs [Nitrostat] 0.4 mg SL Q5M PRN 02/10/16 04/16/20 Aspirin 81 mg PO DAILY@0800 04/09/16 04/16/20 Acetaminophen Tab [Tylenol] 650 mg PO Q4H PRN 01/27/19 04/16/20 Ondansetron [Zofran] 4 mg PO Q6H PRN 01/27/19 04/16/20 Enoxaparin [Lovenox] 40 mg SQ DAILY@1700 02/21/19 04/16/20 Ferrous Sulfate [Iron] 325 mg PO DAILY@0800 02/21/19 04/16/20 Ipratropium-Albuterol Nebulize 3 ml INHALATION RT-Q6H PRN 02/21/19 04/16/20 [Duoneb 0.5 mg-3 mg/3 ml Soln] Levothyroxine Sodium [Synthroid] 100 mcg PO DAILY@0800 02/21/19 04/16/20 Multivitamins, Thera [Multivitamin 1 tab PO DAILY@0800 02/21/19 04/16/20 (formulary)] Saliva Stimulant Agents Comb.3 1 spray PO TID@0800,1200,1700 02/21/19 04/16/20 [Biotene Moisturizing Mouth] Tamsulosin HCl [Flomax] 0.4 mg PO HS@2100 19 01/06/21 HYDROcodone/APAP 10-325MG [[place] 1 tab PO Q4H PRN 04/25/19 04/16/20 10-325] ALPRAZolam [Xanax] 0.5 mg PO Q8H PRN 04/16/20 04/16/20 Atorvastatin [Lipitor] 20 mg PO HS 04/16/20 04/16/20 Baclofen 5 mg PO BID@0800,209904/16/20 04/16/20 Lidocaine 5% Oint [Xylocaine 5% 1 applic TOPICAL HS PRN 04/16/20 04/16/20 Oint] Liquacel 30 ml PO TID 04/16/20 04/16/20 Metoprolol Tartrate [Lopressor] 12.5 mg PO BID 04/16/20 04/16/20 Mirtazapine [Remeron] 30 mg PO HS@209904/16/20 04/16/20 Omeprazole 40 mg PO DAILY@0800 04/16/20 04/16/20 Pregabalin [Lyrica] 75 mg PO BID@0800,209904/16/20 04/16/20 Sennosides [Senna] 8.6 mg PO BID@0800,1700 04/16/20 04/16/20 amLODIPine [Norvasc] 2.5 mg PO HS@209904/16/20 04/16/20 Allergies Allergy/AdvReac Type Severity Reaction Status Date / Time No Known Allergies Allergy Verified 04/16/20 11:13 Review of Systems ROS Statement: Those systems with pertinent positive or pertinent negative responses have been documented in the HPI. ROS Other: All systems not noted in ROS Statement are negative. Constitutional: Reports: fever, weakness ENT: Denies: throat pain, congestion Respiratory: Denies: cough, dyspnea, wheezes Cardiovascular: Denies: chest pain, palpitations Gastrointestinal: Denies: abdominal pain, vomiting, diarrhea Genitourinary: Denies: dysuria, hematuria Musculoskeletal: Denies: back pain Skin: Denies: rash Neurological: Denies: headache Past Medical History Past Medical History: Atrial Fibrillation, Atrial Flutter, Coronary Artery Disease (CAD), Chest Pain / Angina, CVA/TIA, Hyperlipidemia, Hypertension, Myocardial Infarction ([place]), Osteoarthritis (OA), Prostate Disorder, Skin Disorder, Thyroid Disorder Additional Past Medical History / Comment(s): Diverticulitis, HX PERFORATION. Gout. Eczema. BPH. Chronic Back Pain D/T PINCHED NERVE, has been bedridden since September. HX VERTIGO. FOOD GETTING STUCK IN THROAT - REMOVAL X3. Last Myocardial Infarction Date:: 08/2015 History of Any Multi-Drug Resistant Organisms: MRSA, Other MDRO, VRE Date of last positivie culture/infection: 06/18/20 MRSA 02/24/19 VRE MDRO Source:: Abdomen-MRSA & VRE Past Surgical History: Bowel Resection, Cardiac Ablation, Coronary Bypass/CABG, Heart Catheterization With Stent, Tonsillectomy Additional Past Surgical History / Comment(s): 02/11/16 Cardiac stent to SVG to diagonal; TOTAL 3 NOW. CABG X3 0n 07/11/15. CYST REMOVED FROM HEART 1958; LEFT TESTICLE REMOVED; МАРИНА CATARACTS. EGD W/ REMOVAL FB X3. Ostomy which failed, and redone. Colostomy since September 2018. Issues with sepsis since. 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 Past Anesthesia/Blood Transfusion Reactions: No Reported Reaction Additional Past Anesthesia/Blood Transfusion Reaction / Comment(s): no family hx Date of Last Stent Placement:: 02/11/16 Past Psychological History: PTSD Smoking Status: Former smoker Past Alcohol Use History: None Reported Past Drug Use History: None Reported - Past Family History Mother Family Medical History: Unable to Obtain Additional Family Medical History / Comment(s): Mother had a pacemaker. Father History Unknown: Yes Family Medical History: Myocardial Infarction ([place]) General Exam Limitations: altered mental status General appearance: alert, in no apparent distress Head exam: Present: atraumatic, normocephalic Eye exam: Present: normal appearance. Absent: scleral icterus, conjunctival injection ENT exam: Present: normal oropharynx Neck exam: Present: normal inspection Respiratory exam: Present: normal lung sounds bilaterally. Absent: respiratory distress, wheezes, rales, rhonchi, stridor Cardiovascular Exam: Present: regular rate, normal rhythm, normal heart sounds. Absent: systolic murmur, diastolic murmur, rubs, gallop GI/Abdominal exam: Present: soft, other (Colostomy in the right upper quadrant, with normal-appearing output. Patient does have some healing ulcerations to the anterior abdomen with small amount of foul-smelling drainage. No erythema, warmth or tenderness.). Absent: distended, tenderness, guarding, rebound, rigid Extremities exam: Present: normal capillary refill. Absent: pedal edema, calf tenderness Neurological exam: Present: alert Skin exam: Present: warm, dry, normal color, other (As above) Course Vital Signs 10/22/20 21:52 Temperature 99.5 F Pulse Rate 94 Respiratory 18 Rate Blood Pressure 111/71 O2 Sat by Pulse 95 Oximetry Disposition Referrals: Dilshad Lopez DO [Primary Care Provider] - 1-2 days
[2020-10-22 22:47] LABS: Basophils % (A) 0 %; Eosinophils # (A) 0.1 k/uL (0-0.7); Eosinophils % (A) 1 %; HCT 40.6 % (39.0-53.0); HGB 13.8 gm/dL (13.0-17.5); Lymphocytes # (A) 0.6 k/uL (1.0-4.8); Lymphocytes % (A) 4 %; MCH 30.6 pg (25.0-35.0); MCV 90.2 fL (80.0-100.0); Mean Platelet Volume 7.4; Monocytes # (A) 0.9 k/uL (0-1.0); Monocytes % (A) 6 %; Neutrophils # (A) 13.6 k/uL (1.3-7.7); Neutrophils % (A) 89 %; Platelet Count 178 k/uL (150-450); RDW 15.1 % (11.5-15.5); WBC 15.3 k/uL (3.8-10.6)
--- NOTE | 2020-10-22 22:49 | XR ---
EXAMINATION TYPE: XR chest 1V portable DATE OF EXAM: 10/22/2020 COMPARISON: 04/25/2019 HISTORY: Fever TECHNIQUE: FINDINGS: There are sternal wires. There is no heart failure nor confluent pneumonic infiltrate. Cost ophrenic angles are clear. There is deformity of the lateral ribs probably from thoracotomy. Heart si ze is fairly normal. IMPRESSION: No active cardiopulmonary disease. Inspiration improved compared to old exam.
[2020-10-22 23:01] LABS: ALT 23 U/L (4-49); AST 29 U/L (17-59); African American GFR (CKD) >90 (>60 ml/min/1.73 sqM); Albumin 3.9 g/dL (3.5-5.0); Alkaline Phosphatase 121 U/L (38-126); Anion Gap 12 mmol/L; Blood Urea Nitrogen 23 mg/dL (9-20); Calcium 9.4 mg/dL (8.4-10.2); Carbon Dioxide 25 mmol/L (22-30); Chloride 101 mmol/L (98-107); Glucose 142 mg/dL (74-99); Non-African American GFR(CKD) 81 (>60 ml/min/1.73 sqM); Potassium 3.9 mmol/L (3.5-5.1); Sodium 138 mmol/L (137-145); Total Bilirubin 0.6 mg/dL (0.2-1.3); Total Protein 7.1 g/dL (6.3-8.2)
[2020-10-23 00:40] LABS: Appearance,Urine Clear (Clear); Bilirubin,Urine Negative (Negative); Blood,Urine Small (Negative); Color,Urine Light Yellow; Glucose,Urine (UA) Negative (Negative); Ketones,Urine Negative (Negative); Leukocyte Esterase,Urine Negative (Negative); Mucus,Urine Rare /hpf; Nitrite,Urine Negative (Negative); Protein,Urine Negative (Negative); RBC,Urine 3 /hpf (0-5); Urobilinogen,Urine <2.0 mg/dL (<2.0); WBC,Urine 1 /hpf (0-5)
[2020-10-23] MEDS ORDERED: VANCOMYCIN IV PER PHARMACY 1 EACH MISC MISCELLANE PRN (01:12)
[2020-10-23] MEDS ORDERED: ONDANSETRON 4 MG TAB PO PRN (01:18)
[2020-10-23] MEDS ORDERED: IPRATROPIUM-ALBUTEROL 3 ML NEB INHALATION PRN (01:18)
[2020-10-23] MEDS ORDERED: VANCOMYCIN 1,750 MG in SODIUM CHLORIDE 0.9% 500 ML 500 ML IVPB ONE (01:30)
[2020-10-23] MEDS: HYDROcodone/APAP 10-325MG 1 EACH TAB PO PRN ×5 (02:19→20:31)
[2020-10-23] MEDS: LEVOTHYROXINE 100 MCG TAB PO SCH (05:23)
[2020-10-23] MEDS: SENNOSIDES 8.6 MG TAB PO SCH ×2 (08:03→17:50)
[2020-10-23] MEDS: FERROUS SULFATE 325 MG TAB PO SCH (08:03)
[2020-10-23] MEDS: BACLOFEN 10 MG TAB PO SCH ×2 (08:03→20:32)
[2020-10-23] MEDS: ASPIRIN 81 MG PO SCH (08:03)
[2020-10-23] MEDS: PREGABALIN 75 MG CAP PO SCH ×2 (08:03→20:32)
[2020-10-23] MEDS: PIPERACILLIN-TAZOBACTAM 3.375 GM in SODIUM CHLORIDE 0.9% 100 ML IVPB SCH ×2 (08:03→16:08)
[2020-10-23] MEDS: PANTOPRAZOLE 40 MG TABLET PO SCH (08:03)
[2020-10-23] MEDS: MULTIVITAMINS, THERA 1 EACH TAB PO SCH (08:03)
[2020-10-23] MEDS: METOPROLOL TARTRATE 12.5 MG TAB PO SCH ×2 (08:03→20:32)
[2020-10-23] MEDS ORDERED: FAMOTIDINE 20 MG/2 ML VIAL IV SCH (09:00)
[2020-10-23 13:24] VITALS: BMI 36.9
[2020-10-23] MEDS: VANCOMYCIN 1,750 MG in SODIUM CHLORIDE 0.9% 500 ML 500 ML IVPB SCH (13:48)
--- NOTE | 2020-10-23 16:10 | P.GSCN ---
History of Present Illness Consult date: 10/23/20 History of present illness: CHIEF COMPLAINT: Fever Reason for consult: Wound infections HISTORY OF PRESENT ILLNESS: This is a 85-year-old male with a known past medical history of myocardial infarction, coronary artery disease with prior CABG, atrial fibrillation, hypertension, chronic sacral wound, bedridden and anticoagulated with Lovenox. He has prior history of exploratory laparotomy, sigmoid colectomy with end colostomy and drainage of abscess secondary to perforated diverticulitis with peritonitis. Patient had required a revision of his colostomy at [facility]. He also had chronic wound related to his colostomy site that had required debridement of wound in February 2019. Patient presents to the hospital with fevers and not feeling well. Apparently he had a temp as high as 103 and had been given Tylenol. Patient denies any abdominal pain. He denies any nausea or vomiting. He is having good output through his ostomy. He does have cellulitis and skin breakdown noted on the right lower abdomen to the side of the ostomy. Patient has a chronic sacral ulcer that per patient has decreased in size. The ulceration is about 2-3 cm in length. With a clearish to yellowish drainage. Patient denies any nausea or vomiting. He denies any pain in the abdomen. Does have pain in the buttocks area. Surgical service consult regarding possible wound infections. 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 PAST MEDICAL HISTORY: See list. PAST SURGICAL HISTORY: See list. MEDICATIONS: See list. ALLERGIES: See list. SOCIAL HISTORY: No illicit drug use. REVIEW OF SYSTEMS: CONSTITUTIONAL: Denies fever or chills. HEENT: Denies blurred vision, vision changes, or eye pain. Denies hemoptysis CARDIOVASCULAR: Denies chest pain or pressure. RESPIRATORY: No shortness of breath. GASTROINTESTINAL: See HPI for pertinent findings HEMATOLOGIC: Denies bleeding disorders. GENITOURINARY: Denies any blood in urine or increased urinary frequency. SKIN: Denies pruitis. Denies rash. PHYSICAL EXAM: VITAL SIGNS: Reviewed GENERAL: Well-developed in no acute distress. HEENT: No sclera icterus. Extraocular movements grossly intact. Moist buccal mucosa. Head is atraumatic, normocephalic. No nasal drainage. ABDOMEN: Soft. Nondistended. Nontender. Patient has erythema and induration on the right lower abdomen adjacent to his colostomy bag. Patient has a colostomy bag on the right with brownish stool. Patient has a old stoma in the mid abdomen that has a small amount of stool draining. Patient has a sacral ulcer about 2 cm in size there is beefy fresh healthy tissue visible. And there is some areas of maceration surrounding the ulcer. There is evidence of erythema around the ulceration. NEUROLOGIC: Alert and oriented. Cranial nerves II through XII grossly intact. LABORATORY DATA: WBC 15.3 hemoglobin 13.8 platelets 178 sodium 13 potassium 3.9 creatinine 0.83 lactic acid 2.4 down to 1.6 LFTs are normal UA negative for infection IMAGING: Chest x-ray no active cardiopulmonary disease ASSESSMENT: 1. Abdominal wall cellulitis with areas of skin breakdown 2. Chronic sacral decubitus ulcer 3. Chronic abdominal wound 4. Exploratory laparotomy, sigmoid colectomy with end colostomy and drainage of abscess secondary to perforated diverticulitis with peritonitis in September 2018. Patient had required a revision of his colostomy at [facility] 5. Chronic wound related to colostomy site requiring debridement of wound in February 2019 PLAN: -No surgical intervention planned -Continue local wound care -Consult wound care nurse -Agree with infectious disease consult -Continue antibiotics per ID Thank you for this consultation Physician Supervisor Paper Testing note has been reviewed by physician. Signing provider agrees with the documented findings, assessment, and plan of care. Past Medical History Past Medical History: Atrial Fibrillation, Atrial Flutter, Coronary Artery Disease (CAD), Chest Pain / Angina, CVA/TIA, Hyperlipidemia, Hypertension, Myocardial Infarction ([place]), Osteoarthritis (OA), Prostate Disorder, Skin Disorder, Thyroid Disorder Additional Past Medical History / Comment(s): Diverticulitis, HX PERFORATION. Gout. Eczema. BPH. Chronic Back Pain D/T PINCHED NERVE, has been bedridden since September. HX VERTIGO. FOOD GETTING STUCK IN THROAT - REMOVAL X3. 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 CABG X3 0n 07/11/15. CYST REMOVED FROM HEART 1958; LEFT TESTICLE REMOVED; МАРИНА CATARACTS. EGD W/ REMOVAL FB X3. Ostomy which failed, and redone. Colostomy since September 2018. Issues with sepsis since. 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 Past Anesthesia/Blood Transfusion Reactions: No Reported Reaction Additional Past Anesthesia/Blood Transfusion Reaction / Comm: no family hx Date of Last Stent Placement:: 02/11/16 Past Psychological History: PTSD Additional Psychological History / Comment(s): Pt is a [place] . 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 Smoking Status: Never smoker Past Alcohol Use History: None Reported Additional Past Alcohol Use History / Comment(s): Hx cigar/pipe smoker from teen. quit smoking 1972 Past Drug Use History: None Reported - Past Family History Mother Family Medical History: Unable to Obtain Additional Family Medical History / Comment(s): Mother had a pacemaker. Father History Unknown: Yes Family Medical History: Myocardial Infarction ([place]) Medications and Allergies Home Medications Medication Instructions Recorded Confirmed Type Nitroglycerin Sl Tabs [Nitrostat] 0.4 mg SL Q5M PRN 02/10/16 10/23/20 History Aspirin 81 mg PO DAILY@0800 04/09/16 10/23/20 History Acetaminophen Tab [Tylenol] 650 mg PO Q4H PRN 01/27/19 10/23/20 History Ipratropium-Albuterol Nebulize 3 ml INHALATION RT-Q6H PRN 02/21/19 10/23/20 History [Duoneb 0.5 mg-3 mg/3 ml Soln] Levothyroxine Sodium [Synthroid] 100 mcg PO DAILY@0800 02/21/19 10/23/20 History Tamsulosin HCl [Flomax] 0.4 mg PO HS@209902/21/19 10/23/20 History HYDROcodone/APAP 10-325MG [[place] 1 tab PO BID PRN 04/25/19 10/23/20 History 10-325] Atorvastatin [Lipitor] 20 mg PO HS 04/16/20 10/23/20 History Baclofen 5 mg PO BID@0800,2100 04/16/20 10/23/20 History Metoprolol Tartrate [Lopressor] 12.5 mg PO BID 04/16/20 10/23/20 History Pregabalin [Lyrica] 75 mg PO BID@0800,2100 04/16/20 10/23/20 History amLODIPine [Norvasc] 2.5 mg PO HS@2100 04/16/20 10/23/20 History ALPRAZolam [Xanax] 0.25 mg PO TID PRN 10/23/20 10/23/20 History Lactulose [Constulose] 10 gm PO BID PRN 10/23/20 10/23/20 History Nystatin/Triamcin 1 applic TOPICAL BID 10/23/20 10/23/20 History [Nystatin-Triamcinolone Cream] Rivaroxaban [Xarelto] 10 mg PO DAILY 10/23/20 10/23/20 History Allergies Allergy/AdvReac Type Severity Reaction Status Date / Time No Known Allergies Allergy Verified 04/16/20 11:13 Surgical - Exam Vital Signs Temp Pulse Resp BP Pulse Ox 99.5 F 94 18 111/71 95 10/22/20 21:52 10/22/20 21:52 10/22/20 21:52 10/22/20 21:52 10/22/20 21:52 Results - Labs 10/22/20 22:32 10/22/20 22:32 Abnormal Lab Results - Last 24 Hours (Table) 10/22/20 10/22/20 10/22/20 Range/Units 22:32 22:32 22:32 WBC 15.3 H (3.8-10.6) k/uL Neutrophils # 13.6 H (1.3-7.7) k/uL Lymphocytes # 0.6 L (1.0-4.8) k/uL BUN 23 H (9-20) mg/dL Glucose 142 H (74-99) mg/dL Plasma Lactic Acid Alexey 2.4 H* (0.7-2.0) mmol/L Urine Blood (Negative) Urine Mucus (None) /hpf 10/23/20 10/23/20 Range/Units 00:35 01:48 WBC (3.8-10.6) k/uL Neutrophils # (1.3-7.7) k/uL Lymphocytes # (1.0-4.8) k/uL BUN (9-20) mg/dL Glucose (74-99) mg/dL Plasma Lactic Acid Alexey 2.2 H* (0.7-2.0) mmol/L Urine Blood Small H (Negative) Urine Mucus Rare H (None) /hpf Diabetes panel 10/22/20 Range/Units 22:32 Sodium 138 (137-145) mmol/L Potassium 3.9 (3.5-5.1) mmol/L Chloride 101 (98-107) mmol/L Carbon Dioxide 25 (22-30) mmol/L BUN 23 H (9-20) mg/dL Creatinine 0.83 (0.66-1.25) mg/dL Glucose 142 H (74-99) mg/dL Calcium 9.4 (8.4-10.2) mg/dL AST 29 (17-59) U/L ALT 23 (4-49) U/L Alkaline Phosphatase 121 (38-126) U/L Total Protein 7.1 (6.3-8.2) g/dL Albumin 3.9 (3.5-5.0) g/dL Calcium panel 10/22/20 Range/Units 22:32 Calcium 9.4 (8.4-10.2) mg/dL Albumin 3.9 (3.5-5.0) g/dL Pituitary panel 10/22/20 Range/Units 22:32 Sodium 138 (137-145) mmol/L Potassium 3.9 (3.5-5.1) mmol/L Chloride 101 (98-107) mmol/L Carbon Dioxide 25 (22-30) mmol/L BUN 23 H (9-20) mg/dL Creatinine 0.83 (0.66-1.25) mg/dL Glucose 142 H (74-99) mg/dL Calcium 9.4 (8.4-10.2) mg/dL Adrenal panel 10/22/20 Range/Units 22:32 Sodium 138 (137-145) mmol/L Potassium 3.9 (3.5-5.1) mmol/L Chloride 101 (98-107) mmol/L Carbon Dioxide 25 (22-30) mmol/L BUN 23 H (9-20) mg/dL Creatinine 0.83 (0.66-1.25) mg/dL Glucose 142 H (74-99) mg/dL Calcium 9.4 (8.4-10.2) mg/dL Total Bilirubin 0.6 (0.2-1.3) mg/dL AST 29 (17-59) U/L ALT 23 (4-49) U/L Alkaline Phosphatase 121 (38-126) U/L Total Protein 7.1 (6.3-8.2) g/dL Albumin 3.9 (3.5-5.0) g/dL
[2020-10-23] MEDS ORDERED: LACTULOSE 20 GM/30 ML CUP PO PRN (16:57)
[2020-10-23] MEDS ORDERED: ACETAMINOPHEN TAB 325 MG TAB PO PRN (16:57)
[2020-10-23] MEDS ORDERED: ALPRAZolam 0.25 MG TAB PO PRN (16:57)
[2020-10-23] MEDS ORDERED: NITROGLYCERIN SL TABS 0.4 MG TAB SUBLINGUAL PRN (16:57)
[2020-10-23] MEDS ORDERED: ENOXAPARIN 40 MG/0.4 ML SYRINGE SQ SCH (17:00)
--- NOTE | 2020-10-23 17:00 | P.HPIM ---
History of Present Illness H&P Date: 10/23/20 Chief Complaint: Fever Hospital course: This is a 85-year-old patient of Dr. Lopez. October 2018. - acute perforated diverticulitis- sigmoid colectomy, had a drain in place with partial closure of the incision. Also had wound VAC on the lower half of the abdominal wall. be ing followed by Dr. Woodward from general surgery and Dr. Park from infectious disease. did have a colostomy in the past and had revision that was done at [facility].chronic stable medical conditions include gout, BPH, chronic low back pain, large sacral decubitus wound which patient had a wound VAC in place. Patient also had anterior abdominal wound which she's been healing with secondar y intention. Had a PEG tube in the past that was removed in April 2020 Patient's currently at home. Patient has a wound in sacrum , being cared for by a visiting nurse. Patient at home said that he became acutely confused. Was unable to communicate with the family. Was lost about an hour. Had a fever. [place] a bit delirious. No cough. Appetite has been good. Denies any urinary symptoms. Has a Bishop catheter. Abdominal wound has been healing well. [EMS report: Family stated that they noted the patient wasn't acting himself seemed confused is not normal for him. When they checked his temperature it was hot and 3.2. Review of systems: GEN.: Fever EYES: None HEENT: None NECK: None RESPIRATORY: None CARDIOVASCULAR: None GASTROINTESTINAL: As above GENITOURINARY: None MUSCULOSKELETAL: Some joint pains LYMPHATICS: None HEMATOLOGICAL: None PSYCHIATRY: None NEUROLOGICAL: Generalized weakness Past medical history: Coronary artery disease with stent and bypass, atrial flutter, hypertension, hyperlipidemia, osteoporosis status, BPH, hypothyroid, sigmoid diverticulitis with perforation, intra-abdominal abscess, gout, PTSD, colostomy, pneumonia, Social history: Patient is an [employer] . Did smoke a pipe and cigar stopped 1971. At home with family. Does use a wheelchair Physical examination: VITAL SIGNS: 99.5, 94, 18, 111 x 71, 95% room air GENERAL: BMI 36.9, laying in bed, awake tired EYES: Pupils equal. Conjunctiva pale HEENT: External appearance of nose and ears normal, oral cavity dry. NECK: JVD unable to assess; masses not palpable. HEART: Heart sounds irregular , no edema. LUNGS: Respiratory rate normal; decreased breath sounds. ABDOMEN: Soft, no tenderness, no guarding no rigidity, liver spleen not palpable, no masses palpable, bowel sounds present. Colostomy bag on the right side. abdominal wall stoma on the left side, superficial wound with dressing . Bishop catheter PSYCH: AO - times three. Mood and affect normal NEUROLOGICAL: Cranial nerves grossly intact; no facial asymmetry, decreased power both lower extremities, DERMATOLOGICAL: Sacral wound Investigations reviewed in the clinical context WBC 15.3 hemoglobin 13.8 platelets 178 potassium 3.9 creatinine 0.83 Lactic acid 2.4 UA showing small amount of blood COVID 19 negative EKG tracing personally reviewed by me-sinus rhythm, right bundle branch block Chest x-ray film personally reviewed by me-some elevation right diaphragm. No obvious infiltrate Assessment and plan: -Acute febrile episode with accompanying delirium, lactic acid. clinical picture of sepsis. UA is unremarkable. Chest x-rays normal with no respiratory symptoms. . Likely source of infection is the sacral decubitus ulcer. Patient denies any abdominal symptoms. Currently on vancomycin and IV Zosyn. ID -Acute metabolic encephalopathy with delirium from infection upon presentation: Improved Follow clinically -Chronic sacral wound decubitus growing Pseudomonas in the past. Local wound care and follow with ID -Right bundle-branch block -Paroxysmal atrial flutter, currently sinus rhythm Telemetry. Continue xarelto -Coronary artery disease with prior history of stent and bypass Norvasc, Lopressor, aspirin -Sigmoid colectomy with a resultant colostomy -Hyperlipidemia Lipitor -Essential hypertension Amlodipine, Lopressor -Primary osteoarthritis Pain medications, as needed -BPH On Flomax -Hypothyroidism Synthroid -Chronic gout -PTSD - is the DPOA, and the elder son is also the agent for medical advocate for the Patient started on IV vancomycin and IV Zosyn. Local wound care. Consultation to infectious disease and general surgery. Home medications resumed. Care was discussed with the patient. Questions answered. IV fluids.. Past Medical History Past Medical History: Atrial Fibrillation, Atrial Flutter, Coronary Artery Disease (CAD), Chest Pain / Angina, CVA/TIA, Hyperlipidemia, Hypertension, Myocardial Infarction ([place]), Osteoarthritis (OA), Prostate Disorder, Skin Disorder, Thyroid Disorder Additional Past Medical History / Comment(s): Diverticulitis, HX PERFORATION. Gout. Eczema. BPH. Chronic Back Pain D/T PINCHED NERVE, has been bedridden since September. HX VERTIGO. FOOD GETTING STUCK IN THROAT - REMOVAL X3. Last Myocardial Infarction Date:: 08/2015 History of Any Multi-Drug Resistant Organisms: MRSA, Other MDRO, VRE Date of last positivie culture/infection: 06/18/20 MRSA 02/24/19 VRE MDRO Source:: Abdomen-MRSA & VRE Past Surgical History: Bowel Resection, Cardiac Ablation, Coronary Bypass/CABG, Heart Catheterization With Stent, Tonsillectomy Additional Past Surgical History / Comment(s): 02/11/16 Cardiac stent to SVG to diagonal; TOTAL 3 NOW. CABG X3 0n 07/11/15. CYST REMOVED FROM HEART 1958; LEFT TESTICLE REMOVED; МАРИНА CATARACTS. EGD W/ REMOVAL FB X3. Ostomy which failed, and redone. Colostomy since September 2018. Issues with sepsis since. At [facility] family was told Rene had a VAP which was drug resistant, unsure of type, November 2018. 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 Smoking Status: Never smoker Past Alcohol Use History: None Reported Additional Past Alcohol Use History / Comment(s): Hx cigar/pipe smoker from teen. quit smoking 1972 Past Drug Use History: None Reported - Past Family History Mother Family Medical History: Unable to Obtain Additional Family Medical History / Comment(s): Mother had a pacemaker. Father History Unknown: Yes Family Medical History: Myocardial Infarction ([place]) Medications and Allergies Home Medications Medication Instructions Recorded Confirmed Type Nitroglycerin Sl Tabs [Nitrostat] 0.4 mg SL Q5M PRN 02/10/16 10/23/20 History Aspirin 81 mg PO DAILY@0800 04/09/16 10/23/20 History Acetaminophen Tab [Tylenol] 650 mg PO Q4H PRN 01/27/19 10/23/20 History Ipratropium-Albuterol Nebulize 3 ml INHALATION RT-Q6H PRN 02/21/19 10/23/20 History [Duoneb 0.5 mg-3 mg/3 ml Soln] Levothyroxine Sodium [Synthroid] 100 mcg PO DAILY@0800 02/21/19 10/23/20 History Tamsulosin HCl [Flomax] 0.4 mg PO HS@2100 02/21/19 10/23/20 History HYDROcodone/APAP 10-325MG [[place] 1 tab PO BID PRN 04/25/19 10/23/20 History 10-325] Atorvastatin [Lipitor] 20 mg PO HS 04/16/20 10/23/20 History Baclofen 5 mg PO BID@0800,2100 04/16/20 10/23/20 History Metoprolol Tartrate [Lopressor] 12.5 mg PO BID 04/16/20 10/23/20 History Pregabalin [Lyrica] 75 mg PO BID@0800,2100 04/16/20 10/23/20 History amLODIPine [Norvasc] 2.5 mg PO HS@2100 04/16/20 10/23/20 History ALPRAZolam [Xanax] 0.25 mg PO TID PRN 10/23/20 10/23/20 History Lactulose [Constulose] 10 gm PO BID PRN 10/23/20 10/23/20 History Nystatin/Triamcin 1 applic TOPICAL BID 10/23/20 10/23/20 History [Nystatin-Triamcinolone Cream] Rivaroxaban [Xarelto] 10 mg PO DAILY 10/23/20 10/23/20 History Allergies Allergy/AdvReac Type Severity Reaction Status Date / Time No Known Allergies Allergy Verified 04/16/20 11:13 Physical Exam Vitals: Vital Signs Temp Pulse Pulse Resp BP BP Pulse Ox 10/23/20 07:47 98.8 F 76 18 104/57 93 L 10/23/20 04:08 99.2 F 72 15 112/67 95 10/23/20 02:00 93 16 123/55 96 10/22/20 23:06 79 16 107/54 94 L 10/22/20 21:52 99.5 F 94 18 111/71 95 Intake and Output 10/22/20 10/23/20 10/23/20 22:59 06:59 14:59 Other: Voiding Method Urinal Weight 113.398 kg 113.398 kg Results CBC & Chem 7: 10/22/20 22:32 10/22/20 22:32 Labs: Abnormal Lab Results - Last 24 Hours (Table) 10/22/20 10/22/20 10/22/20 Range/Units 22:32 22:32 22:32 WBC 15.3 H (3.8-10.6) k/uL Neutrophils # 13.6 H (1.3-7.7) k/uL Lymphocytes # 0.6 L (1.0-4.8) k/uL BUN 23 H (9-20) mg/dL Glucose 142 H (74-99) mg/dL Plasma Lactic Acid Alexey 2.4 H* (0.7-2.0) mmol/L Urine Blood (Negative) Urine Mucus (None) /hpf 10/23/20 10/23/20 Range/Units 00:35 01:48 WBC (3.8-10.6) k/uL Neutrophils # (1.3-7.7) k/uL Lymphocytes # (1.0-4.8) k/uL BUN (9-20) mg/dL Glucose (74-99) mg/dL Plasma Lactic Acid Alexey 2.2 H* (0.7-2.0) mmol/L Urine Blood Small H (Negative) Urine Mucus Rare H (None) /hpf Thrombosis Risk Factor Assmnt - Choose All That Apply Any of the Below Risk Factors Present?: No Other Risk Factors: Yes Each Risk Factor Represents 3 Points: Age 75 years or older Thrombosis Risk Factor Assessment Total Risk Factor Score: 3 Thrombosis Risk Factor Assessment Level: Moderate Risk
[2020-10-23] MEDS: LACTATED RINGERS 1,000 ML IV SCH (17:46)
[2020-10-23] MEDS ORDERED: AMPICILLIN-SULBACTAM 3 GM in SODIUM CHLORIDE 0.9% 100 ML IVPB SCH (18:00)
--- NOTE | 2020-10-23 18:12 | US ---
EXAMINATION TYPE: US venous doppler duplex LE LT DATE OF EXAM: 10/23/2020 5:50 PM COMPARISON: NONE CLINICAL HISTORY: swelling r/o DVT. SIDE PERFORMED: Left TECHNIQUE: The lower extremity deep venous system is examined utilizing real time linear array sonog jennifer with graded compression, doppler sonography and color-flow sonography. VESSELS IMAGED: Common Femoral Vein not seen Deep Femoral Veinnot seen Greater Saphenous Vein not seen Femoral Veinproximal portion not seen Popliteal Vein Small Saphenous Vein Proximal Calf Veins (* superficial vessels) Exam started at mid femoral vein due to patient position Left Leg: Visualized portions appear negative for DVT IMPRESSION: No evidence of deep vein thrombosis in the left leg.
[2020-10-23] MEDS: amLODIPine 2.5 MG TAB PO SCH (20:31)
[2020-10-23] MEDS: ATORVASTATIN 20 MG TAB PO SCH (20:31)
[2020-10-23] MEDS: TAMSULOSIN 0.4 MG CAP.ER.24H PO SCH (20:32)
[2020-10-23] MEDS: MIRTAZAPINE 15 MG TAB PO SCH (20:33)
[2020-10-23] MEDS: AMPICILLIN-SULBACTAM 3 GM in SODIUM CHLORIDE 0.9% 100 ML IVPB SCH (20:33)
[2020-10-23] MEDS: TRIAMCINOLONE 0.1% CREAM 80 GM TUBE TOPICAL SCH ×2 (20:35→21:44)
[2020-10-23] MEDS ORDERED: NYSTAT-TRIAMCIN 100,000-0.1 UNIT/GM-% CREAM 30 GM TUBE TOPICAL SCH (21:00)
[2020-10-23] MEDS ORDERED: FAMOTIDINE 20 MG TAB PO SCH (21:00)
[2020-10-23] MEDS: NYSTATIN 100,000UNIT/GM CREAM 30 GM TUBE TOPICAL SCH (21:40)
[2020-10-24] MEDS: AMPICILLIN-SULBACTAM 3 GM in SODIUM CHLORIDE 0.9% 100 ML IVPB SCH ×4 (01:35→20:41)
[2020-10-24] MEDS: VANCOMYCIN 1,750 MG in SODIUM CHLORIDE 0.9% 500 ML 500 ML IVPB SCH (02:17)
[2020-10-24] MEDS: LACTATED RINGERS 1,000 ML IV SCH ×4 (02:18→20:44)
[2020-10-24] MEDS: LEVOTHYROXINE 100 MCG TAB PO SCH (06:21)
[2020-10-24 07:04] LABS: African American GFR (CKD) >90 (>60 ml/min/1.73 sqM); Non-African American GFR(CKD) 83 (>60 ml/min/1.73 sqM)
--- NOTE | 2020-10-24 07:33 | P.CONS ---
History of Present Illness - Reason for Consult Consult date: 10/23/20 infected wounds Requesting physician: Cosme Colon - Chief Complaint Fever x 1 day - History of Present Illness Patient is 85-year-old male with a past medical history significant for multiple comorbidities the patient did have a history of perforated diverticulitis with exploratory laparotomy sigmoid colectomy and end colostomy drainage of an abscess patient subsequently required revision of his colostomy at [facility] and the patient did have chronic abdominal wall wound from previous sites of colostomy patient is also developed a sacral pressure ulcer currently treated in the outpatient setting by the home care nurse patient was brought into the ER at [facility] last night for evaluation of a fever patient apparently was not feeling well the day of presentation to the hospital complaining to the ER physician not feeling well and was anxious family check his temperature was noticed to have a fever 103 F patient received Tyle nol and was subsequently sent to the ER for further evaluation patient currently denies having any headache no URI symptoms no chest pain shortness of breath or cough no nausea no vomiting no abdominal pain or diarrhea patient work-up in the ER did include a white count of 15.3 patient did have elevated lactic acid of 2.4 is down to 1.6 patient urine was negative leslie PCR was negative patient di d have a chest x-ray no active cardiopulmonary disease patient was started on vancomycin and Zosyn with concern for possible abdominal wall cellulitis infectious he was consulted for further management of antibiotic therapy patient was noticed to have increasing swelling and redness to the left leg however patient seem to have no symptoms referable to his lower extremity. Review of Systems Positive point has been mentioned in HPI rest of the systems are negative. Past Medical History Past Medical History: Atrial Fibrillation, Atrial Flutter, Coronary Artery Disease (CAD), Chest Pain / Angina, CVA/TIA, Hyperlipidemia, Hypertension, Myocardial Infarction ([place]), Osteoarthritis (OA), Prostate Disorder, Skin Disorder, Thyroid Disorder Additional Past Medical History / Comment(s): Diverticulitis, HX PERFORATION. Gout. Eczema. BPH. Chronic Back Pain D/T PINCHED NERVE, has been bedridden since September. HX VERTIGO. FOOD GETTING STUCK IN THROAT - REMOVAL X3. 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 CABG X3 0n 07/11/15. CYST REMOVED FROM HEART 195; LEFT TESTICLE REMOVED; МАРИНА CATARACTS. EGD W/ REMOVAL FB X3. Ostomy which failed, and redone. Colostomy since September 2018. Issues with sepsis since. At [facility] family was told Rene had a VAP which was drug resistant, unsure of type, November 2018. Past Anesthesia/Blood Transfusion Reactions: No Reported Reaction Additional Past Anesthesia/Blood Transfusion Reaction / Comm: no family hx Date of Last Stent Placement:: 02/11/16 Past Psychological History: PTSD Additional Psychological History / Comment(s): Pt is a [place] . 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 Smoking Status: Never smoker Past Alcohol Use History: None Reported Additional Past Alcohol Use History / Comment(s): Hx cigar/pipe smoker from teen. quit smoking 1972 Past Drug Use History: None Reported - Past Family History Mother Family Medical History: Unable to Obtain Additional Family Medical History / Comment(s): Mother had a pacemaker. Father History Unknown: Yes Family Medical History: Myocardial Infarction ([place]) Medications and Allergies Home Medications Medication Instructions Recorded Confirmed Type Nitroglycerin Sl Tabs [Nitrostat] 0.4 mg SL Q5M PRN 02/10/16 10/23/20 History Aspirin 81 mg PO DAILY@0800 04/09/16 10/23/20 History Acetaminophen Tab [Tylenol] 650 mg PO Q4H PRN 01/27/19 10/23/20 History Ipratropium-Albuterol Nebulize 3 ml INHALATION RT-Q6H PRN 02/21/19 10/23/20 History [Duoneb 0.5 mg-3 mg/3 ml Soln] Levothyroxine Sodium [Synthroid] 100 mcg PO DAILY@0800 02/21/19 10/23/20 History Tamsulosin HCl [Flomax] 0.4 mg PO HS@2100 02/21/19 10/23/20 History HYDROcodone/APAP 10-325MG [[place] 1 tab PO BID PRN 04/25/19 10/23/20 History 10-325] Atorvastatin [Lipitor] 20 mg PO HS 04/16/20 10/23/20 History Baclofen 5 mg PO BID@0800,2100 04/16/20 10/23/20 History Metoprolol Tartrate [Lopressor] 12.5 mg PO BID 04/16/20 10/23/20 History Pregabalin [Lyrica] 75 mg PO BID@0800,209904/16/20 10/23/20 History amLODIPine [Norvasc] 2.5 mg PO HS@2100 04/16/20 10/23/20 History ALPRAZolam [Xanax] 0.25 mg PO TID PRN 10/23/20 10/23/20 History Lactulose [Constulose] 10 gm PO BID PRN 10/23/20 10/23/20 History Nystatin/Triamcin 1 applic TOPICAL BID 10/23/20 10/23/20 History [Nystatin-Triamcinolone Cream] Rivaroxaban [Xarelto] 10 mg PO DAILY 10/23/20 10/23/20 History Allergies Allergy/AdvReac Type Severity Reaction Status Date / Time No Known Allergies Allergy Verified 04/16/20 11:13 Physical Exam Vitals: Vital Signs Temp Pulse Pulse Resp BP BP Pulse Ox 10/23/20 14:00 98.5 F 55 L 18 137/66 94 L 10/23/20 07:47 98.8 F 76 18 104/57 93 L 10/23/20 04:08 99.2 F 72 15 112/67 95 10/23/20 02:00 93 16 123/55 96 Intake and Output 10/23/20 10/23/20 10/24/20 14:59 22:59 06:59 Other: Weight 113.398 kg GENERAL DESCRIPTION: Elderly male lying in bed, no distress. No tachypnea or accessory muscle of respiration use. HEENT: Shows Pallor , no scleral icterus. Oral mucous membrane is dry. NECK: Trachea central, no thyromegaly. LUNGS: Unlabored breathing. Decreased breath sound at the base. No wheeze or crackle. HEART: S1, S2, regular rate and rhythm. ABDOMEN: Soft, no tenderness , guarding or rigidity, patient did have chronic abdominal wall wound right side did have minimal erythema but no induration or any drainage EXTREMITIES: Left leg did have swelling minimal redness slightly warm to touch. SKIN: No rash, no masses palpable. Patient did have a stage III pressure ulcer to the sacrum area but no cellulitis no slough tissue NEUROLOGICAL: The patient is awake, alert, oriented x3, mood and affect normal. Results CBC & Chem 7: 10/22/20 22:32 10/24/20 06:29 Labs: Abnormal Lab Results - Last 24 Hours (Table) 10/23/20 10/23/20 10/23/20 Range/Units 00:35 01:48 04:25 Plasma Lactic Acid Alexey 2.2 H* (0.7-2.0) mmol/L Procalcitonin 0.15 H (0.02-0.09) ng/mL Urine Blood Small H (Negative) Urine Mucus Rare H (None) /hpf Assessment and Plan Assessment: patient presented to hospital with sepsis in this patient who did have a fever elevated white count elevated lactic acid patient currently do not have specific symptoms as far as to point towards the source of infection initial work-up in the ER including a chest x-ray and UA has been negative patient did have a chronic abdominal wall wound from his colostomy sites right side did have minimal erythema but no fluctuation or induration was noticed patient did have a sacral pressure ulcer with no evidence of any surrounding redness or slough tissue he was noticed to have more swelling redness and warmth to the left leg question of possible left lower extremity cellulitis being responsible for his episode of sepsis also have more swelling to the left leg and need to rule out DVT (1) Sepsis Current Visit: Yes Status: Acute Code(s): A41.9 - SEPSIS, UNSPECIFIED ORGANISM SNOMED Code(s): 44568350 (2) Wound infection Current Visit: Yes Status: Acute Code(s): T14.8XXA - OTHER INJURY OF UNSPECIFIED BODY REGION, INITIAL ENCOUNTER; L08.9 - LOCAL INFECTION OF THE SKIN AND SUBCUTANEOUS TISSUE, UNSP SNOMED Code(s): 70820990 Plan: 1-we will obtain Doppler ultrasound of the left lower extremity 2-if Doppler is negative patient may benefit from CT of abdominal pelvis 3-vancomycin pharmacy to dose her with a target trough of 15 while watching her kidney function and Vanco trough closely. 4-discontinue Zosyn and add Unasyn 5-local wound care to the sacral wound with dry Aquacel silver dressing and keep the area of the pressure We will follow on clinical condition and cultures to further adjust medication if needed Thank you for this consultation we will follow the patient along with you Time with Patient: Greater than 30
[2020-10-24] MEDS: BACLOFEN 10 MG TAB PO SCH ×2 (07:49→20:42)
[2020-10-24] MEDS: METOPROLOL TARTRATE 12.5 MG TAB PO SCH ×2 (07:50→20:42)
[2020-10-24] MEDS: FERROUS SULFATE 325 MG TAB PO SCH (07:50)
[2020-10-24] MEDS: PANTOPRAZOLE 40 MG TABLET PO SCH (07:50)
[2020-10-24] MEDS: MULTIVITAMINS, THERA 1 EACH TAB PO SCH (07:50)
[2020-10-24] MEDS: PREGABALIN 75 MG CAP PO SCH ×2 (07:50→20:42)
[2020-10-24] MEDS: ASPIRIN 81 MG PO SCH (07:50)
[2020-10-24] MEDS: SENNOSIDES 8.6 MG TAB PO SCH ×2 (07:50→15:30)
[2020-10-24] MEDS: RIVAROXABAN 10 MG TAB PO SCH (07:50)
[2020-10-24] MEDS: TRIAMCINOLONE 0.1% CREAM 80 GM TUBE TOPICAL SCH ×2 (07:51→20:44)
[2020-10-24] MEDS: NYSTATIN 100,000UNIT/GM CREAM 30 GM TUBE TOPICAL SCH ×2 (07:51→20:44)
[2020-10-24 08:27] LABS: Basophils % (A) 1 %; Eosinophils # (A) 0.4 k/uL (0-0.7); Eosinophils % (A) 5 %; HCT 42.7 % (39.0-53.0); HGB 14.1 gm/dL (13.0-17.5); Lymphocytes # (A) 0.7 k/uL (1.0-4.8); Lymphocytes % (A) 9 %; MCH 30.5 pg (25.0-35.0); MCV 92.4 fL (80.0-100.0); Mean Platelet Volume 7.7; Monocytes # (A) 0.6 k/uL (0-1.0); Monocytes % (A) 8 %; Neutrophils # (A) 5.7 k/uL (1.3-7.7); Neutrophils % (A) 75 %; Platelet Count 154 k/uL (150-450); RBC 4.62 m/uL (4.30-5.90); RDW 15.2 % (11.5-15.5); WBC 7.6 k/uL (3.8-10.6)
[2020-10-24] MEDS: HYDROcodone/APAP 10-325MG 1 EACH TAB PO PRN ×2 (10:40→17:09)
--- NOTE | 2020-10-24 11:32 | P.PN ---
<Garima Vincent - Last Filed: 10/24/20 11:26> Subjective Progress Note Date: 10/24/20 CHIEF COMPLAINT: Fever HISTORY OF PRESENT ILLNESS: Patient is lying in bed comfortably. He has no new abdominal pain. His ostomy is functioning. He has been seen by infectious disease antibiotics have been adjusted. He is tolerating regular diet. Afebrile. WBC has normalized to 15.3-7.6 PHYSICAL EXAM: VITAL SIGNS: Reviewed. GENERAL: Well-developed in no acute distress. HEENT: No sclera icterus. Extraocular movements grossly intact. Moist buccal mucosa. Head is atraumatic, normocephalic. ABDOMEN: Soft. Nondistended. Nontender. Patient has decrease in erythema on that right side of the abdomen to the right of the colostomy. NEUROLOGIC: Alert and oriented. Cranial nerves II through XII grossly intact. ASSESSMENT: 1. Abdominal wall cellulitis with areas of skin breakdown 2. Chronic sacral decubitus ulcer 3. Chronic abdominal wound 4. Exploratory laparotomy, sigmoid colectomy with end colostomy and drainage of abscess secondary to perforated diverticulitis with peritonitis in September 2018. Patient had required a revision of his colostomy at [facility] 5. Chronic wound related to colostomy site requiring debridement of wound in February 2019 PLAN: -No surgical intervention planned -Continue local wound care -Wound care nurse consulted -Antibiotics per ID -Further recommendations forthcoming per surgeon Physician Wildlife Removal Specialist note has been reviewed by physician. Signing provider agrees with the documented findings, assessment, and plan of care. Objective - Vital Signs Vital signs: Vital Signs Temp 97.4 F L 10/24/20 08:00 Pulse 66 10/24/20 08:00 Resp 16 10/24/20 08:00 BP 139/76 10/24/20 08:00 Pulse Ox 93 L 10/24/20 08:49 Intake & Output 10/23/20 10/24/20 10/24/20 18:59 06:59 18:59 Output Total 1250 Balance -1250 Weight 113.398 kg Output: Urine 1250 Other: Voiding Method External Catheter External Catheter - Labs CBC & Chem 7: 10/24/20 06:29 10/24/20 06:29 Labs: Abnormal Lab Results - Last 24 Hours (Table) 10/23/20 10/24/20 Range/Units 04:25 06:29 Lymphocytes # 0.7 L (1.0-4.8) k/uL Procalcitonin 0.15 H (0.02-0.09) ng/mL Microbiology - Last 24 Hours (Table) 10/22/20 22:32 Blood Culture - Preliminary Blood No Growth after 24 hours 10/22/20 22:32 Blood Culture - Preliminary Blood No Growth after 24 hours <Sandro Torrez - Last Filed: 10/24/20 16:33> Subjective As above. Patient had CAT scan performed today which shows no definite abnormalities. Continue local wound care. Diet as tolerated. Will follow. Objective - Vital Signs Vital signs: Vital Signs Temp 97.6 F 10/24/20 14:00 Pulse 62 10/24/20 14:00 Resp 17 10/24/20 14:00 BP 112/58 10/24/20 14:00 Pulse Ox 93 L 10/24/20 14:00 Intake & Output 10/23/20 10/24/20 10/24/20 18:59 06:59 18:59 Output Total 1250 Balance -1250 Weight 113.398 kg Output: Urine 1250 Other: Voiding Method External Catheter External Catheter - Labs CBC & Chem 7: 10/24/20 06:29 10/24/20 06:29 Labs: Abnormal Lab Results - Last 24 Hours (Table) 10/23/20 10/24/20 Range/Units 04:25 06:29 Lymphocytes # 0.7 L (1.0-4.8) k/uL Procalcitonin 0.15 H (0.02-0.09) ng/mL Microbiology - Last 24 Hours (Table) 10/22/20 22:32 Blood Culture - Preliminary Blood No Growth after 24 hours 10/22/20 22:32 Blood Culture - Preliminary Blood No Growth after 24 hours
--- NOTE | 2020-10-24 11:55 | P.CONS ---
History of Present Illness - Reason for Consult Consult date: 10/24/20 wound care - History of Present Illness this is an 85-year-old patient being seen care center for nonhealing ulcerations to the abdomen and sacrum. Patient states that the sacral ulceration has been there for 2 years. He has been receiving care through home care however he does not know the products that he is using. The sacr measuring approximately 1.5 I 4 x 0.3 cm notable rolled edges at 9:00. All other edges are attached to the wound base. Wound base has granulation with minimal slough noted. No tunneling or undermining noted. Minimal serous drainage noted. The abdomen has multiple ulcerations with fat layer exposure. Patient is unsure of the dressings that were applied to the site. Patient states that the ulcerations have been there since his surgery. Patient has past medical history significant for atrial fibrillation, coroartery disease, CVA, hyperlipidemia, hypertension, myocardial infarction, BPH, diverticulitis with perforation, he is bedridden since September. Asians denies smoking and diabetes. Review Of Systems: Constitutional: No fever, no chills, no night sweats. No weight change. No weakness, fatigue or lethargy. No daytime sleepiness. Integumentary:reports wounds, no lesions. No rash or pruritus. No unusual bruising. No change in hair or nails. Physical exam: General Appearance: Alert, cooperative, no distress, appears stated age. Skin: See HPI all other Skin color, texture, tugor normal, no rashes or lesions. Neurologic: Alert oriented x3 Assessment: 1. Pressure ulcer sacrum stage II 2. Nonhealing ulcerations with fat layer exposure multiple areas of the abdomen Plan: 1. Sacral ulcer: Apply collagen, feeling moistened gauze, dry gauze, sacrum border foam. Change Tuesday. Turn patient every 2 hours. Review service algorithm for the appropriate surface for the patient. When patient is sitting, air-filled cushion to be utilized. Patient would benefit from weekly debridements we would be happy to see him in the wound care center upon discharge. 2. Abdominal ulcerations. Apply observed to silver, saline moistened gauze, ABDs and secured with paper tape. Change Tuesday. Thank you for the consultation any questions please contact the wound care center DNP note has been reviewed and discussed with Dr. Munguia and the impression and plan of care has been directed as dictated. Past Medical History Past Medical History: Atrial Fibrillation, Atrial Flutter, Coronary Artery Disease (CAD), Chest Pain / Angina, CVA/TIA, Hyperlipidemia, Hypertension, Myocardial Infarction (NC), Osteoarthritis (OA), Prostate Disorder, Skin Disorder, Thyroid Disorder Additional Past Medical History / Comment(s): Diverticulitis, HX PERFORATION. Gout. Eczema. BPH. Chronic Back Pain D/T PINCHED NERVE, has been bedridden since September. HX VERTIGO. FOOD GETTING STUCK IN THROAT - REMOVAL X3. 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 CABG X3 0n 07/11/15. CYST REMOVED FROM HEART 1958; LEFT TESTICLE REMOVED; МАРИНА CATARACTS. EGD W/ REMOVAL FB X3. Ostomy which failed, and redone. Colostomy since September 2018. Issues with sepsis since. At [facility] family was told Rene had a VAP which was drug resistant, unsure of type, November 2018. Past Anesthesia/Blood Transfusion Reactions: No Reported Reaction Additional Past Anesthesia/Blood Transfusion Reaction / Comm: no family hx Date of Last Stent Placement:: 02/11/16 Past Psychological History: PTSD Additional Psychological History / Comment(s): Pt is a [place] . 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 Smoking Status: Never smoker Past Alcohol Use History: None Reported Additional Past Alcohol Use History / Comment(s): Hx cigar/pipe smoker from teen. quit smoking 1971 Past Drug Use History: None Reported - Past Family History Mother Family Medical History: Unable to Obtain Additional Family Medical History / Comment(s): Mother had a pacemaker. Father History Unknown: Yes Family Medical History: Myocardial Infarction (NC) Medications and Allergies Home Medications Medication Instructions Recorded Confirmed Type Nitroglycerin Sl Tabs [Nitrostat] 0.4 mg SL Q5M PRN 02/10/16 10/23/20 History Aspirin 81 mg PO DAILY@0800 04/09/16 10/23/20 History Acetaminophen Tab [Tylenol] 650 mg PO Q4H PRN 01/27/19 10/23/20 History Ipratropium-Albuterol Nebulize 3 ml INHALATION RT-Q6H PRN 02/21/19 10/23/20 History [Duoneb 0.5 mg-3 mg/3 ml Soln] Levothyroxine Sodium [Synthroid] 100 mcg PO DAILY@0800 02/21/19 10/23/20 History Tamsulosin HCl [Flomax] 0.4 mg PO HS@209902/21/19 10/23/20 History HYDROcodone/APAP 10-325MG [Parker 1 tab PO BID PRN 04/25/19 10/23/20 History 10-325] Atorvastatin [Lipitor] 20 mg PO HS 04/16/20 10/23/20 History Baclofen 5 mg PO BID@0800,209904/16/20 10/23/20 History Metoprolol Tartrate [Lopressor] 12.5 mg PO BID 04/16/20 10/23/20 History Pregabalin [Lyrica] 75 mg PO BID@0800,2100 04/16/20 10/23/20 History amLODIPine [Norvasc] 2.5 mg PO HS@209904/16/20 10/23/20 History ALPRAZolam [Xanax] 0.25 mg PO TID PRN 10/23/20 10/23/20 History Lactulose [Constulose] 10 gm PO BID PRN 10/23/20 10/23/20 History Nystatin/Triamcin 1 applic TOPICAL BID 10/23/20 10/23/20 History [Nystatin-Triamcinolone Cream] Rivaroxaban [Xarelto] 10 mg PO DAILY 10/23/20 10/23/20 History Allergies Allergy/AdvReac Type Severity Reaction Status Date / Time No Known Allergies Allergy Verified 04/16/20 11:13 Physical Exam Vitals: Vital Signs Temp Pulse Resp BP BP Pulse Ox 10/24/20 08:49 93 L 10/24/20 08:00 97.4 F L 66 16 139/76 91 L 10/24/20 02:00 98.4 F 67 17 124/66 93 L 10/23/20 19:20 98.1 F 65 16 129/63 92 L 10/23/20 14:00 98.5 F 55 L 18 137/66 94 L Intake and Output 10/23/20 10/24/20 10/24/20 22:59 06:59 14:59 Output Total 1250 Balance -1250 Output: Urine 1250 Other: Voiding Method External Catheter External Catheter Results CBC & Chem 7: 10/24/20 06:29 10/24/20 06:29 Labs: Abnormal Lab Results - Last 24 Hours (Table) 10/23/20 10/24/20 Range/Units 04:25 06:29 Lymphocytes # 0.7 L (1.0-4.8) k/uL Procalcitonin 0.15 H (0.02-0.09) ng/mL Microbiology - Last 24 Hours (Table) 10/22/20 22:32 Blood Culture - Preliminary Blood No Growth after 24 hours 10/22/20 22:32 Blood Culture - Preliminary Blood No Growth after 24 hours Assessment and Plan (1) Pressure ulcer of sacral region, stage 2 Current Visit: Yes Status: Acute Code(s): L89.152 - PRESSURE ULCER OF SACRAL REGION, STAGE 2 SNOMED Code(s): 132423111 (2) Non-pressure chronic ulcer of skin of other sites with fat layer exposed Current Visit: Yes Status: Acute Code(s): L98.492 - NON-PRS CHRONIC ULCER OF SKIN OF SITES W FAT LAYER EXPOSED SNOMED Code(s): 23364239
[2020-10-24] MEDS: IOPAMIDOL CONTRAST (ORAL USE) VIAL PO PRN ×2 (13:58→14:39)
--- NOTE | 2020-10-24 15:46 | CT ---
EXAMINATION TYPE: CT abdomen pelvis w con DATE OF EXAM: 10/24/2020 COMPARISON: 04/25/2019 HISTORY: Open wounds and pain. CT DLP: 2236.7 mGycm Automated exposure control for dose reduction was used. CONTRAST: CT scan of the abdomen pelvis is performed with IV Contrast, patient injected with 100 mL of Isovue 3 00. FINDINGS- up portions of the right abdomen are not included in the amusf-sv-kszn extending off the im ages provided. LUNG BASES-bilateral subsegmental consolidation and small effusion.. LIVER/GB- No gross abnormality is appreciated. PANCREAS- No gross abnormality is seen. SPLEEN- No gross abnormality is seen. ADRENALS- No gross abnormality is seen. KIDNEYS/TTPEMEP-rdlyx-imikh renal lesion is indeterminant. BOWEL-there appears to be soft tissue thickening along the right lateral abdominal wall which is only partially included. Suggestion of a ostomy centrally within the abdomen with the decompressed bowel loops noted. No bowel dilation is seen to suggest obstruction.. LYMPH NODES- No greater than 1cm abdominal or pelvic lymph nodes areappreciated. OSSEOUS STRUCTURES-hypertrophic and degenerative change of the spine. Arthropathy of the hips bilater ally. OTHER- cannot exclude a lateral abdominal wall hernia due to lack of inclusion of the structures of the gicoa-ad-pmcq. Aorta of normal caliber with atherosclerotic changes. Prostate gland is enlarged. There appears to be a bladder calculus measuring 2 mm. No free fluid or f ree air. Small hiatal hernia noted. Skin thickening and soft tissue thickening seen posterior to the sacrum correlate for soft tissue wound. There is slight sclerosis of the sacrum is be associated with chronic osteomyelitis. There is some loss of posterior cortex on the sagittal view of the distal julio cyx which also could be on the basis of chronic infection. IMPRESSION- 1. Nonspecific gas pattern with no diagnostic evidence of obstruction. Note is made portions of the r ight abdomen are not included in the loxyf-de-tcuj and therefore cannot be assessed. 2. Bladder calculus 3. There is skin thickening and soft tissue thickening posterior to the sacrum and coccyx. Poor defin ition of the posterior margin of the sacrococcygeal junction and coccyx could be associated with meter record clerk vaughn osteomyelitis correlate clinically.
--- NOTE | 2020-10-24 19:38 | PN ---
PROGRESS NOTE DATE OF SERVICE: 10/24/2020 REASON FOR FOLLOWUP: Fever. INTERVAL HISTORY: The patient is afebrile. The patient is breathing comfortably. The patient denies having any chest pain, shortness of breath or cough. No abdominal pain. No vomiting. No diarrhea. PHYSICAL EXAMINATION: Blood pressure 112/58 with a pulse of 62, temperature 97.6. He is 93% on room air. General description is an elderly male lying in bed in no distress. Respiratory system: Unlabored breathing, clear to auscultation anteriorly. Heart S1, S2. Regular rate and rhythm. Abdomen: Soft, no guarding and no rigidity. Extremities: No edema of the feet. LABS: Hemoglobin 14.8, white count 10.6, creatinine 0.79. Procalcitonin 0.15. Culture has been negative so far. Lower extremity Doppler was negative for DVT. DIAGNOSTIC IMPRESSION AND PLAN: Patient presented to the hospital with sepsis with fever and weakness in this patient who did have an extensive workup including a negative chest x-ray, UA and lower extremity Doppler. He did have a CT of abdomen and pelvis that did not show any acute finding though. Antibiotic adjusted to Unasyn and if he continues to improve, plan to finish therapy with oral Augmentin and close outpatient followup. Local wound care to continue as ordered. Continue supportive care. MMODL / IJN: [id number] /
[2020-10-24] MEDS: amLODIPine 2.5 MG TAB PO SCH (20:42)
[2020-10-24] MEDS: ATORVASTATIN 20 MG TAB PO SCH (20:42)
[2020-10-24] MEDS: ALPRAZolam 0.5 MG TAB PO PRN (20:42)
[2020-10-24] MEDS: MIRTAZAPINE 15 MG TAB PO SCH (20:43)
[2020-10-24] MEDS: TAMSULOSIN 0.4 MG CAP.ER.24H PO SCH (20:43)
--- NOTE | 2020-10-24 22:25 | P.PN ---
Progress Note - Text Progress Note Date: 10/24/20 Chief Complaint: Fever Hospital course: This is a 85-year-old patient of Dr. Lopez. October 2018. - acute perforated diverticulitis- sigmoid colectomy, had a drain in place with partial closure of the incision. Also had wound VAC on the lower half of the abdominal wall. being followed by Dr. Woodward from general surgery and Dr. Park from infectious disease. did have a colostomy in the past and had revision that was done at [facility].chronic stable medical conditions include gout, BPH, chronic low back pain, large sacral decubitus wound which patient had a wound VAC in place. Patient also had anterior abdominal wound which she's been healing with secondary intention. Had a PEG tube in the past that was removed in April 2020 Patient's currently at home. Patient has a wound in sacrum , being cared for by a visiting nurse. Patient at home said that he became acutely confused. Was unable to communicate with the family. Was lost about an hour. Had a fever. [place] a bit delirious. No cough. Appetite has been good. Denies any urinary symptoms. Has a Bishop catheter. Abdominal wound has been healing well. [EMS report: Family stated that they noted the patient wasn't acting himself seemed confused is not normal for him. When they checked his temperature it was 103.2 Patient admitted with sepsis picture. Exact source unknown. Patient started on IV Unasyn. October 24: Laying in bed. Eating lunch. No abdominal pain. Discussed with Dr. Park from ID. No obvious source of the present time. We will do a computed tomography scan of the abdomen and pelvis so find a source Review of systems: Was done for constitutional, cardiovascular, GI, pulmonary. relevant finding as above Active Medications Acetaminophen (Acetaminophen Tab 325 Mg Tab) 650 mg PO Q4H PRN PRN Reason: Pain Hydrocodone Bitart/Acetaminophen (Hydrocodone/Apap 10-325mg 1 Each Tab) 1 each PO Q4H PRN PRN Reason: Pain Last Admin: 10/24/20 17:09 Dose: 1 each Documented by: Albuterol/Ipratropium (Ipratropium-Albuterol 3 Ml Neb) 3 ml INHALATION RT-Q6H PRN PRN Reason: Shortness Of Breath Alprazolam (Alprazolam 0.5 Mg Tab) 0.5 mg PO Q8H PRN PRN Reason: Anxiety Last Admin: 10/24/20 20:42 Dose: 0.5 mg Documented by: Alprazolam (Alprazolam 0.25 Mg Tab) 0.25 mg PO TID PRN PRN Reason: Anxiety Last Admin: 10/23/20 18:12 Dose: 0.25 mg Documented by: Amlodipine Besylate (Amlodipine 2.5 Mg Tab) 2.5 mg PO HS@2100 [facility] Last Admin: 10/24/20 20:42 Dose: 2.5 mg Documented by: Aspirin (Aspirin 81 Mg) 81 mg PO DAILY@0800 [facility] Last Admin: 10/24/20 07:50 Dose: 81 mg Documented by: Atorvastatin Calcium (Atorvastatin 20 Mg Tab) 20 mg PO HS [facility] Last Admin: 10/24/20 20:42 Dose: 20 mg Documented by: Baclofen (Baclofen 10 Mg Tab) 5 mg PO BID@0800,2100 [facility] Last Admin: 10/24/20 20:42 Dose: 5 mg Documented by: Ferrous Sulfate (Ferrous Sulfate 325 Mg Tab) 325 mg PO DAILY@0800 [facility] Last Admin: 10/24/20 07:50 Dose: 325 mg Documented by: Lactated Ringer's (Lactated Ringers) 1,000 mls @ 125 mls/hr IV .Q8H [facility] Last Admin: 10/24/20 20:44 Dose: 125 mls/hr Documented by: Ampicillin Sodium/Sulbactam (Sodium 3 gm/ Sodium Chloride) 100 mls @ 200 mls/hr IVPB Q6H [facility] Last Admin: 10/24/20 20:41 Dose: 200 mls/hr Documented by: Lactulose (Lactulose 20 Gm/30 Ml Cup) 10 gm PO BID PRN PRN Reason: Constipation Levothyroxine Sodium (Levothyroxine 100 Mcg Tab) 100 mcg PO DAILY@0630 [facility] Last Admin: 10/24/20 06:21 Dose: 100 mcg Documented by: Metoprolol Tartrate (Metoprolol Tartrate 12.5 Mg Tab) 12.5 mg PO BID [facility] Last Admin: 10/24/20 20:42 Dose: 12.5 mg Documented by: Mirtazapine (Mirtazapine 15 Mg Tab) 30 mg PO HS@2100 [facility] Last Admin: 10/24/20 20:43 Dose: 30 mg Documented by: Multivitamins (Multivitamins, Thera 1 Each Tab) 1 each PO DAILY@0800 [facility] Last Admin: 10/24/20 07:50 Dose: 1 each Documented by: Nitroglycerin (Nitroglycerin Sl Tabs 0.4 Mg Tab) 0.4 mg SUBLINGUAL Q5M PRN PRN Reason: Chest Pain Nystatin (Nystatin 100,000unit/Gm Cream 30 Gm Tube) 1 applic TOPICAL BID [facility] Last Admin: 10/24/20 20:44 Dose: 1 applic Documented by: Ondansetron HCl (Ondansetron 4 Mg Tab) 4 mg PO Q6H PRN PRN Reason: Nausea Pantoprazole Sodium (Pantoprazole 40 Mg Tablet) 40 mg PO -BRKFST [facility] Last Admin: 10/24/20 07:50 Dose: 40 mg Documented by: Pregabalin (Pregabalin 75 Mg Cap) 75 mg PO BID@0800,2100 [facility] Last Admin: 10/24/20 20:42 Dose: 75 mg Documented by: Rivaroxaban (Rivaroxaban 10 Mg Tab) 10 mg PO DAILY [facility]; Protocol Last Admin: 10/24/20 07:50 Dose: 10 mg Documented by: Senna (Sennosides 8.6 Mg Tab) 8.6 mg PO BID@0800,1700 [facility] Last Admin: 10/24/20 15:30 Dose: 8.6 mg Documented by: Tamsulosin HCl (Tamsulosin 0.4 Mg Cap.Er.24h) 0.4 mg PO HS@2100 [facility] Last Admin: 10/24/20 20:43 Dose: 0.4 mg Documented by: Triamcinolone Acetonide (Triamcinolone 0.1% Cream 80 Gm Tube) 1 applic TOPICAL BID [facility] Last Admin: 10/24/20 20:44 Dose: 1 applic Documented by: Past medical history: Coronary artery disease with stent and bypass, atrial flutter, hypertension, hyperlipidemia, osteoporosis status, BPH, hypothyroid, sigmoid diverticulitis with perforation, intra-abdominal abscess, gout, PTSD, colostomy, pneumonia, Social history: Patient is an [employer] . Did smoke a pipe and cigar stopped 1971. At home with family. Does use a wheelchair Physical examination: VITAL SIGNS: 97.6, 62, 17, 112/58, 93% room air GENERAL: BMI 36.9, laying in bed, awake eating EYES: Pupils equal. Conjunctiva pale HEENT: External appearance of nose and ears normal, oral cavity dry. NECK: JVD unable to assess; masses not palpable. HEART: Heart sounds irregular , no edema. LUNGS: Respiratory rate normal; decreased breath sounds. ABDOMEN: Soft, no tenderness, no guarding no rigidity, liver spleen not palpable, no masses palpable, bowel sounds present. Colostomy bag on the right side. abdominal wall stoma on the left side, superficial wound with dressing . Bishop catheter PSYCH: AO - times three. Mood and affect normal NEUROLOGICAL: Cranial nerves grossly intact; no facial asymmetry, decreased power both lower extremities, DERMATOLOGICAL: Sacral wound Investigations reviewed in the clinical context Computed tomography scan of the abdomen pelvis with contrast: Nonspecific gas pattern with no evidence of obstruction. Bladder calculus. Skin thickening and soft tissue thickening posterior to the sacrum and coccyx. Poor definition of the posterior margin of the sacrococcygeal junction and coccyx. October 24: WBC 7.6; 4.1. Pro-calcitonin 0.15 WBC 15.3 hemoglobin 13.8 platelets 178 potassium 3.9 creatinine 0.83 Lactic acid 2.4 UA showing small amount of blood COVID 19 negative EKG tracing personally reviewed by me-sinus rhythm, right bundle branch block Chest x-ray film personally reviewed by me-some elevation right diaphragm. No o bvious infiltrate Assessment and plan: -Acute febrile episode with accompanying delirium, lactic acid. clinical picture of sepsis. UA is unremarkable. Chest x-rays normal with no respiratory symp toms. . Possible source of infection is the sacral decubitus ulcer. Patient denies any abdominal symptoms. IV Zosyn. Computed tomography scan of the abdomen done after discussion with ID. -Acute metabolic encephalopathy with delirium from infection upon presentation: Improved Follow clinically -Chronic sacral wound decubitus . Local wound care and follow with ID -Right bundle-branch block -Paroxysmal atrial flutter, currently sinus rhythm Telemetry. Continue xarelto -Coronary artery disease with prior history of stent and bypass Norvasc, Lopressor, aspirin -Sigmoid colectomy with a resultant colostomy -Hyperlipidemia Lipitor -Essential hypertension Amlodipine, Lopressor -Primary osteoarthritis Pain medications, as needed -BPH On Flomax -Hypothyroidism Synthroid -Chronic gout -PTSD - is the DPOA, and the elder son is also the agent for medical advocate for the Continue IV Zosyn. Local wound care. Follow with ID.
[2020-10-25] MEDS: AMPICILLIN-SULBACTAM 3 GM in SODIUM CHLORIDE 0.9% 100 ML IVPB SCH ×4 (08:55→21:42)
[2020-10-25] MEDS: LEVOTHYROXINE 100 MCG TAB PO SCH (08:56)
[2020-10-25] MEDS: ASPIRIN 81 MG PO SCH (09:03)
[2020-10-25] MEDS: METOPROLOL TARTRATE 12.5 MG TAB PO SCH ×2 (09:03→21:39)
[2020-10-25] MEDS: RIVAROXABAN 10 MG TAB PO SCH (09:03)
[2020-10-25] MEDS: HYDROcodone/APAP 10-325MG 1 EACH TAB PO PRN ×3 (09:04→21:38)
[2020-10-25] MEDS: MULTIVITAMINS, THERA 1 EACH TAB PO SCH (09:04)
[2020-10-25] MEDS: PREGABALIN 75 MG CAP PO SCH ×2 (09:04→21:39)
[2020-10-25] MEDS: PANTOPRAZOLE 40 MG TABLET PO SCH (09:04)
[2020-10-25] MEDS: FERROUS SULFATE 325 MG TAB PO SCH (09:04)
[2020-10-25] MEDS: SENNOSIDES 8.6 MG TAB PO SCH ×2 (09:04→16:06)
[2020-10-25] MEDS: LACTATED RINGERS 1,000 ML IV SCH ×2 (09:05→16:04)
[2020-10-25] MEDS: BACLOFEN 10 MG TAB PO SCH ×2 (09:05→21:39)
[2020-10-25] MEDS ORDERED: VANCOMYCIN TROUGH DUE 1 EACH MISC MISCELLANE ONE (13:00)
--- NOTE | 2020-10-25 13:57 | P.PN ---
Subjective Progress Note Date: 10/25/20 CHIEF COMPLAINT: Abdominal wound HISTORY OF PRESENT ILLNESS: The patient is an 85-year-old gentleman with complicated surgical history including colostomy and abdominal wall cellulitis. No moderate pain. He is tolerating diet. ROS: No fevers or chills. No nausea and vomiting. Morbid obesity, BMI 36.9 PHYSICAL EXAM: VITAL SIGNS: Reviewed CONSTITUTIONAL: Well developed and in no acute distress. EYES: Conjuctivae without sclera icterus. Extraocular movements grossly intact. HEAD, EARS, NOSE, THROAT: Moist buccal mucosa. Head is atraumatic, normocephalic. Hears conversational speech. No nasal drainage. NECK: No jugular venous distention RESPIRATORY: Non-labored respirations and equal bilateral excursions. CARDIOVASCULAR: Palpable 2+ radial pulses. ABDOMEN: Dressing intact. Ostomy left lower abdomen with mild blood. Right lower quadrant ostomy functioning without blood. MUSCULOSKELETAL: No gross deformity of the lower extremities noted. No clubbing. No cyanosis. SKIN: Good skin turgor. Well perfused. NEUROLOGIC: Cranial nerves II through XII grossly intact. No focal or lateralizing signs. PSYCH: Appropriate affect. Alert and oriented to person, place and time. CLINICAL LABS: Reviewed. White blood cell count normal 7.6. ASSESSMENT: 1. Abdominal wall cellulitis with complicated abdominal wound 2. Ostomy status PLAN: 1. Recommend increase nutrition for proper wound healing including with protein and multivitamin 2. Local wound care per wound care team Objective - Vital Signs Vital signs: Vital Signs Temp 97.9 F 10/25/20 07:33 Pulse 52 L 10/25/20 07:33 Resp 16 10/25/20 07:33 BP 129/64 10/25/20 07:33 Pulse Ox 91 L 10/25/20 07:33 Intake & Output 10/24/20 10/25/20 10/25/20 18:59 06:59 18:59 Intake Total 1660 Output Total 3300 Balance -1640 Intake: Intake, IV Titration 1420 Amount Ampicillin-Sulbactam 3 gm 100 In Sodium Chloride 0.9% 100 ml @ 200 mls/hr IVPB Q6H [facility] Rx#:[id number] Lactated Ringers 1,000 ml 1320 @ 125 mls/hr IV .Q8H [facility] Rx#:[id number] Oral 240 Output: Urine 3300 Other: Voiding Method External Catheter External Catheter - Labs CBC & Chem 7: 10/24/20 06:29 10/24/20 06:29 Labs: Microbiology - Last 24 Hours (Table) 10/22/20 22:32 Blood Culture - Preliminary Blood No Growth after 48 hours 10/22/20 22:32 Blood Culture - Preliminary Blood No Growth after 48 hours
--- NOTE | 2020-10-25 15:19 | P.PN ---
Progress Note - Text Progress Note Date: 10/25/20 Chief Complaint: Fever Hospital course: This is a 85-year-old patient of Dr. Lopez. October 2018. - acute perforated diverticulitis- sigmoid colectomy, had a drain in place with partial closure of the incision. Also had wound VAC on the lower half of the abdominal wall. being followed by Dr. Woodward from general surgery and Dr. Park from infectious disease. did have a colostomy in the past and had revision that was done at [facility].chronic stable medical conditions include gout, BPH, chronic low back pain, large sacral decubitus wound which patient had a wound VAC in place. Patient also had anterior abdominal wound which she's been healing with secondary intention. Had a PEG tube in the past that was removed in April 2020 Patient's currently at home. Patient has a wound in sacrum , being cared for by a visiting nurse. Patient at home said that he became acutely confused. Was unable to communicate with the family. Was lost about an hour. Had a fever. Hannah a bit delirious. No cough. Appetite has been good. Denies any urinary symptoms. Has a Bishop catheter. Abdominal wound has been healing well. [EMS report: Family stated that they noted the patient wasn't acting himself seemed confused is not normal for him. When they checked his temperature it was 103.2 Patient admitted with sepsis picture. Exact source unknown. Patient started on IV Unasyn. October 24: Laying in bed. Eating lunch. No abdominal pain. Discussed with Dr. Park from ID. No obvious source of the present time. We will do a computed tomography scan of the abdomen and pelvis so find a source October 25: Laying in bed. Comfortable. No fever. Computed tomography scan of the abdomen did not show any specific source of infection. Blood cultures pending. Review of systems: Was done for constitutional, cardiovascular, GI, pulmonary. relevant finding as above Active Medications Acetaminophen (Acetaminophen Tab 325 Mg Tab) 650 mg PO Q4H PRN PRN Reason: Pain Hydrocodone Bitart/Acetaminophen (Hydrocodone/Apap 10-325mg 1 Each Tab) 1 each PO Q4H PRN PRN Reason: Pain Last Admin: 10/25/20 14:10 Dose: 1 each Documented by: Albuterol/Ipratropium (Ipratropium-Albuterol 3 Ml Neb) 3 ml INHALATION RT-Q6H PRN PRN Reason: Shortness Of Breath Alprazolam (Alprazolam 0.5 Mg Tab) 0.5 mg PO Q8H PRN PRN Reason: Anxiety Last Admin: 10/24/20 20:42 Dose: 0.5 mg Documented by: Alprazolam (Alprazolam 0.25 Mg Tab) 0.25 mg PO TID PRN PRN Reason: Anxiety Last Admin: 10/23/20 18:12 Dose: 0.25 mg Documented by: Amlodipine Besylate (Amlodipine 2.5 Mg Tab) 2.5 mg PO HS@2100 [facility] Last Admin: 10/24/20 20:42 Dose: 2.5 mg Documented by: Aspirin (Aspirin 81 Mg) 81 mg PO DAILY@0800 [facility] Last Admin: 10/25/20 09:03 Dose: 81 mg Documented by: Atorvastatin Calcium (Atorvastatin 20 Mg Tab) 20 mg PO HS [facility] Last Admin: 10/24/20 20:42 Dose: 20 mg Documented by: Baclofen (Baclofen 10 Mg Tab) 5 mg PO BID@0800,2100 [facility] Last Admin: 10/25/20 09:05 Dose: 5 mg Documented by: Ferrous Sulfate (Ferrous Sulfate 325 Mg Tab) 325 mg PO DAILY@0800 [facility] Last Admin: 10/25/20 09:04 Dose: 325 mg Documented by: Lactated Ringer's (Lactated Ringers) 1,000 mls @ 125 mls/hr IV .Q8H [facility] Last Admin: 10/25/20 09:05 Dose: 125 mls/hr Documented by: Ampicillin Sodium/Sulbactam (Sodium 3 gm/ Sodium Chloride) 100 mls @ 200 mls/hr IVPB Q6H [facility] Last Admin: 10/25/20 14:10 Dose: 200 mls/hr Documented by: Lactulose (Lactulose 20 Gm/30 Ml Cup) 10 gm PO BID PRN PRN Reason: Constipation Levothyroxine Sodium (Levothyroxine 100 Mcg Tab) 100 mcg PO DAILY@0630 [facility] Last Admin: 10/25/20 08:56 Dose: Not Given Documented by: Metoprolol Tartrate (Metoprolol Tartrate 12.5 Mg Tab) 12.5 mg PO BID [facility] Last Admin: 10/25/20 09:03 Dose: 12.5 mg Documented by: Mirtazapine (Mirtazapine 15 Mg Tab) 30 mg PO HS@2100 [facility] Last Admin: 10/24/20 20:43 Dose: 30 mg Documented by: Multivitamins (Multivitamins, Thera 1 Each Tab) 1 each PO DAILY@0800 [facility] Last Admin: 10/25/20 09:04 Dose: 1 each Documented by: Nitroglycerin (Nitroglycerin Sl Tabs 0.4 Mg Tab) 0.4 mg SUBLINGUAL Q5M PRN PRN Reason: Chest Pain Nystatin (Nystatin 100,000unit/Gm Cream 30 Gm Tube) 1 applic TOPICAL BID [facility] Last Admin: 10/24/20 20:44 Dose: 1 applic Documented by: Ondansetron HCl (Ondansetron 4 Mg Tab) 4 mg PO Q6H PRN PRN Reason: Nausea Pantoprazole Sodium (Pantoprazole 40 Mg Tablet) 40 mg PO AC-BRKFST [facility] Last Admin: 10/25/20 09:04 Dose: 40 mg Documented by: Pregabalin (Pregabalin 75 Mg Cap) 75 mg PO BID@0800,2100 [facility] Last Admin: 10/25/20 09:04 Dose: 75 mg Documented by: Rivaroxaban (Rivaroxaban 10 Mg Tab) 10 mg PO DAILY [facility]; Protocol Last Admin: 10/25/20 09:03 Dose: 10 mg Documented by: Senna (Sennosides 8.6 Mg Tab) 8.6 mg PO BID@0800,1700 [facility] Last Admin: 10/25/20 09:04 Dose: 8.6 mg Documented by: Tamsulosin HCl (Tamsulosin 0.4 Mg Cap.Er.24h) 0.4 mg PO HS@2100 [facility] Last Admin: 10/24/20 20:43 Dose: 0.4 mg Documented by: Triamcinolone Acetonide (Triamcinolone 0.1% Cream 80 Gm Tube) 1 applic TOPICAL BID [facility] Last Admin: 10/24/20 20:44 Dose: 1 applic Documented by: Past medical history: Coronary artery disease with stent and bypass, atrial flutter, hypertension, hyperlipidemia, osteoporosis status, BPH, hypothyroid, sigmoid diverticulitis with perforation, intra-abdominal abscess, gout, PTSD, colostomy, pneumonia, Social history: Patient is an [employer] . Did smoke a pipe and cigar stopped 1971. At home with family. Does use a wheelchair Physical examination: VITAL SIGNS: 98.5, 62, 18, 10 9 x 50, 94% room air GENERAL: BMI 36.9, laying in bed, awake, comfortable EYES: Pupils equal. Conjunctiva pale HEENT: External appearance of nose and ears normal, oral cavity dry. NECK: JVD unable to assess; masses not palpable. HEART: Heart sounds irregular , no edema. LUNGS: Respiratory rate normal; decreased breath sounds. ABDOMEN: Soft, no tenderness, no guarding no rigidity, liver spleen not palpable, no masses palpable, bowel sounds present. Colostomy bag on the right side. abdominal wall stoma on the left side, superficial wound with dressing . Bishop catheter PSYCH: AO - times three. Mood and affect normal NEUROLOGICAL: Cranial nerves grossly intact; no facial asymmetry, decreased power both lower extremities, DERMATOLOGICAL: Sacral wound Investigations reviewed in the clinical context Computed tomography scan of the abdomen pelvis with contrast: Nonspecific gas pattern with no evidence of obstruction. Bladder calculus. Skin thickening and soft tissue thickening posterior to the sacrum and coccyx. Poor definition of the posterior margin of the sacrococcygeal junction and coccyx. October 24: WBC 7.6; 4.1. Pro-calcitonin 0.15 WBC 15.3 hemoglobin 13.8 platelets 178 potassium 3.9 creatinine 0.83 Lactic acid 2.4 UA showing small amount of blood COVID 19 negative EKG tracing personally reviewed by me-sinus rhythm, right bundle branch block Chest x-ray film personally reviewed by me-some elevation right diaphragm. No obvious infiltrate Assessment and plan: -Acute febrile episode with accompanying delirium, lactic acid. clinical picture of sepsis. UA is unremarkable. Chest x-rays normal with no respiratory symptoms. . Patient denies any abdominal symptoms. IV Zosyn. Computed tomography scan of the abdomen: Unremarkable -Acute metabolic encephalopathy with delirium from infection upon presentation: Improved Follow clinically -Chronic sacral wound decubitus . Local wound care and follow with ID -Right bundle-branch block -Paroxysmal atrial flutter, currently sinus rhythm Telemetry. Continue xarelto -Coronary artery disease with prior history of stent and bypass Norvasc, Lopressor, aspirin -Sigmoid colectomy with a resultant colostomy -Hyperlipidemia Lipitor -Essential hypertension Amlodipine, Lopressor -Primary osteoarthritis Pain medications, as needed -BPH On Flomax -Hypothyroidism Synthroid -Chronic gout -PTSD - is the DPOA, and the elder son is also the agent for medical advocate for the Continue IV Zosyn. Blood cultures are pending. If remains negative then hopefully discharge tomorrow on oral Augmentin. Discussed with the patient. Other medications to continue.
[2020-10-25] MEDS: TRIAMCINOLONE 0.1% CREAM 80 GM TUBE TOPICAL SCH ×2 (16:04→21:46)
[2020-10-25] MEDS: NYSTATIN 100,000UNIT/GM CREAM 30 GM TUBE TOPICAL SCH ×2 (16:04→21:46)
--- NOTE | 2020-10-25 17:34 | PN ---
PROGRESS NOTE DATE OF SERVICE: 10/25/2020 REASON FOR FOLLOWUP: Fever, concern for left leg cellulitis and abdominal wall cellulitis. INTERVAL HISTORY: Patient is afebrile. The patient is breathing comfortably. Patient denies having any chest pain, shortness of breath or cough. No abdominal pain or diarrhea. PHYSICAL EXAMINATION: Blood pressure 111/58 with a pulse of 62, temperature 98.5. He is 94% on room air. General description is an elderly male lying in no distress. Respiratory system unlabored breathing. Clear to auscultation anteriorly. Heart S1, S2. Regular rate. Abdomen soft, no tenderness. LABS: Hemoglobin is 14.8, white count 7.6, creatinine 0.79. Culture remains to be negative. DIAGNOSTIC IMPRESSION AND PLAN: Patient admitted to the hospital with fever and elevated white count. Concern for possible abdominal wall cellulitis. A CT of abdomen and pelvis did not show any intraabdominal pathology or abscess. Concern for some left leg cellulitis. The patient seemed to show overall clinical improvement on Unasyn, to continue and finish therapy short course of oral Augmentin on discharge. Close outpatient followup. MMODL / IJN: [id number] /
[2020-10-25] MEDS: MIRTAZAPINE 15 MG TAB PO SCH (21:38)
[2020-10-25] MEDS: ALPRAZolam 0.5 MG TAB PO PRN (21:39)
[2020-10-25] MEDS: ATORVASTATIN 20 MG TAB PO SCH (21:39)
[2020-10-25] MEDS: TAMSULOSIN 0.4 MG CAP.ER.24H PO SCH (21:39)
[2020-10-25] MEDS: amLODIPine 2.5 MG TAB PO SCH (21:44)
[2020-10-26] MEDS: LACTATED RINGERS 1,000 ML IV SCH (05:47)
[2020-10-26] MEDS: AMPICILLIN-SULBACTAM 3 GM in SODIUM CHLORIDE 0.9% 100 ML IVPB SCH ×2 (05:47→07:52)
[2020-10-26] MEDS: NYSTATIN 100,000UNIT/GM CREAM 30 GM TUBE TOPICAL SCH (07:52)
[2020-10-26] MEDS: TRIAMCINOLONE 0.1% CREAM 80 GM TUBE TOPICAL SCH (07:52)
[2020-10-26] MEDS: FERROUS SULFATE 325 MG TAB PO SCH (07:53)
[2020-10-26] MEDS: MULTIVITAMINS, THERA 1 EACH TAB PO SCH (07:53)
[2020-10-26] MEDS: PREGABALIN 75 MG CAP PO SCH (07:53)
[2020-10-26] MEDS: BACLOFEN 10 MG TAB PO SCH (07:53)
[2020-10-26] MEDS: ASPIRIN 81 MG PO SCH (07:53)
[2020-10-26] MEDS: PANTOPRAZOLE 40 MG TABLET PO SCH (07:53)
[2020-10-26] MEDS: RIVAROXABAN 10 MG TAB PO SCH (07:53)
[2020-10-26] MEDS: METOPROLOL TARTRATE 12.5 MG TAB PO SCH (07:53)
[2020-10-26] MEDS: HYDROcodone/APAP 10-325MG 1 EACH TAB PO PRN ×2 (07:54→13:58)
[2020-10-26] MEDS: SENNOSIDES 8.6 MG TAB PO SCH (07:54)
[2020-10-26] MEDS: LEVOTHYROXINE 100 MCG TAB PO SCH (08:04)
[2020-10-26 14:00] VITALS: BP 124/61; PULSE 57; RESP 20; TEMP 97.6
--- NOTE | 2020-10-26 16:36 | PN ---
PROGRESS NOTE DATE OF SERVICE: 10/26/2020 REASON FOR FOLLOWUP: Cellulitis and multiple wounds. INTERVAL HISTORY: The patient is afebrile. The patient is breathing comfortably. Patient denies having any chest pain. No shortness of breath or cough. No abdominal pain, no diarrhea. PHYSICAL EXAMINATION: Blood pressure 124/60 with a pulse of 57, temperature is 97.6 in 92% on room air. GENERAL DESCRIPTION: The patient is an elderly male lying in bed in no distress. RESPIRATORY SYSTEM: Unlabored breathing, clear to auscultation anteriorly. HEART: S1, S2. Regular rate and rhythm. ABDOMEN: Soft. No tenderness. LABS: Cultures remain to be negative. DIAGNOSTIC IMPRESSION AND PLAN: Patient admitted to the hospital with a fever, elevated white count, possible ( ) cellulitis. CT did not show any collection. There was some concern for left leg cellulitis. Overall improvement on Unasyn. Continue oral Augmentin short course and close outpatient followup. MMODL / IJN: [id number] /
--- NOTE | 2020-10-26 21:32 | P.DS ---
Providers Date of admission: 10/24/20 18:03 Expected date of discharge: 10/26/20 Attending physician: Cosme Colon Consults: 10/23/20 09:23 Consult Physician Routine Consulting Provider: Rony Woodward Consult Reason/Comments: wound infection Do you want consulting provider notified?: Already Contacted 10/23/20 10:56 Consult Physician Routine Consulting Provider: Gerald Park Consult Reason/Comments: infected wounds Do you want consulting provider notified?: Yes Primary care physician: Dilshad [facility] Course: Chief Complaint: Fever Hospital course: This is a 85-year-old patient of Dr. Lopez. October 2018. - acute perforated diverticulitis- sigmoid colectomy, had a drain in place with partial closure of the incision. Also had wound VAC on the lower half of the abdominal wall. being followed by Dr. Woodward from general surgery and Dr. Park from infectious disease. did have a colostomy in the past and had revision that was done at [facility].chronic stable medical conditions include gout, BPH, chronic low back pain, large sacral decubitus wound which patient had a wound VAC in place. Patient also had anterior abdominal wound which she's been healing with secondary intention. Had a PEG tube in the past that was removed in April 2020 Patient's currently at home. Patient has a wound in sacrum , being cared for by a visiting nurse. Patient at home said that he became acutely confused. Was unable to communicate with the family. Was lost about an hour. Had a fever. Powell a bit delirious. No cough. Appetite has been good. Denies any urinary symptoms. Has a Bishop catheter. Abdominal wound has been healing well. [EMS report: Family stated that they noted the patient wasn't acting himself seemed confused is not normal for him. When they checked his temperature it was 103.2 Patient admitted with sepsis picture. Exact source unknown. Patient started on IV Unasyn. October 24: Laying in bed. Eating lunch. No abdominal pain. Discussed with Dr. Park from ID. No obvious source of the present time. We will do a computed tomography scan of the abdomen and pelvis so find a source October 25: Laying in bed. Comfortable. No fever. Computed tomography scan of the abdomen did not show any specific source of infection. Blood cultures pending. October 26: Patient continues do well. Eating well. No fever. No white count. All infectious workup has been negative. Discussed with Dr. Clifford from ID. Patient was to be discharged Augmentin. Spoke to patient's son's court over the phone. Patient has a disagreement with Augmentin in the past. Antibiotic changed to Ceftin. Questions were answered. Discussion and discharge planning more than 35 minutes Consultation: Dr. Park from ID Dr. Woodward from general surgery Past medical history: Coronary artery disease with stent and bypass, atrial flutter, hypertension, hyperlipidemia, osteoporosis status, BPH, hypothyroid, sigmoid diverticulitis with perforation, intra-abdominal abscess, gout, PTSD, colostomy, pneumonia, Social history: Patient is an [employer] . Did smoke a pipe and cigar stopped 1971. At home with family. Does use a wheelchair Physical examination: VITAL SIGNS: 97.6, 57, 20, 124/61, 92% room air GENERAL: BMI 36.9, laying in bed, awake, comfortable EYES: Pupils equal. Conjunctiva pale HEENT: External appearance of nose and ears normal, oral cavity dry. NECK: JVD unable to assess; masses not palpable. HEART: Heart sounds irregular , no edema. LUNGS: Respiratory rate normal; decreased breath sounds. ABDOMEN: Soft, no tenderness, no guarding no rigidity, liver spleen not palpable, no masses palpable, bowel sounds present. Colostomy bag on the right side. abdominal wall stoma on the left side, superficial wound with dressing . Bishop catheter PSYCH: AO - times three. Mood and affect normal NEUROLOGICAL: Cranial nerves grossly intact; no facial asymmetry, decreased power both lower extremities, DERMATOLOGICAL: Sacral wound Investigations reviewed in the clinical context Computed tomography scan of the abdomen pelvis with contrast: Nonspecific gas pattern with no evidence of obstruction. Bladder calculus. Skin thickening and soft tissue thickening posterior to the sacrum and coccyx. Poor definition of the posterior margin of the sacrococcygeal junction and coccyx. October 24: WBC 7.6; 4.1. Pro-calcitonin 0.15 WBC 15.3 hemoglobin 13.8 platelets 178 potassium 3.9 creatinine 0.83 Lactic acid 2.4 UA showing small amount of blood COVID 19 negative EKG tracing personally reviewed by me-sinus rhythm, right bundle branch block Chest x-ray film personally reviewed by me-some elevation right diaphragm. No obvious infiltrate Assessment and plan: -Acute febrile episode with accompanying delirium, lactic acid. clinical picture of sepsis. UA is unremarkable. Chest x-rays normal with no respiratory symptoms. . Patient denies any abdominal symptoms. IV Zosyn. Computed tomography scan of the abdomen: Unremarkable. Patient being discharge and empirically on Ceftin for 5 days -Acute metabolic encephalopathy with delirium from infection upon presentation: Improved Follow clinically -Chronic sacral wound decubitus . Local wound care and follow with ID -Right bundle-branch block -Paroxysmal atrial flutter, currently sinus rhythm Telemetry. Continue xarelto -Coronary artery disease with prior history of stent and bypass Norvasc, Lopressor, aspirin -Sigmoid colectomy with a resultant colostomy -Hyperlipidemia Lipitor -Essential hypertension Amlodipine, Lopressor -Primary osteoarthritis Pain medications, as needed -BPH On Flomax -Hypothyroidism Synthroid -Chronic gout -PTSD - is the DPOA, and the elder son is also the agent for medical advocate for the Disposition: Home Patient Condition at Discharge: Fair Plan - Discharge Summary Discharge Rx Participant: No New Discharge Prescriptions: New Cefuroxime Axetil [Ceftin] 500 mg PO BID #10 tab Ferrous Sulfate [Iron (65 MG Elemental)] 325 mg PO DAILY@0800 tab Continue Nitroglycerin Sl Tabs [Nitrostat] 0.4 mg SL Q5M PRN PRN Reason: Chest Pain Aspirin 81 mg PO DAILY@0800 Acetaminophen Tab [Tylenol] 650 mg PO Q4H PRN PRN Reason: Pain Ipratropium-Albuterol Nebulize [Duoneb 0.5 mg-3 mg/3 ml Soln] 3 ml INHALATION RT-Q6H PRN PRN Reason: Shortness Of Breath Levothyroxine Sodium [Synthroid] 100 mcg PO DAILY@0800 Tamsulosin HCl [Flomax] 0.4 mg PO HS@2100 HYDROcodone/APAP 10-325MG [Harrison 10-325] 1 tab PO BID PRN PRN Reason: Pain amLODIPine [Norvasc] 2.5 mg PO HS@2100 Atorvastatin [Lipitor] 20 mg PO HS Baclofen 5 mg PO BID@0800,2100 Pregabalin [Lyrica] 75 mg PO BID@0800,2100 Metoprolol Tartrate [Lopressor] 12.5 mg PO BID Nystatin/Triamcin [Nystatin-Triamcinolone Cream] 1 applic TOPICAL BID Lactulose [Constulose] 10 gm PO BID PRN PRN Reason: Constipation Rivaroxaban [Xarelto] 10 mg PO DAILY ALPRAZolam [Xanax] 0.25 mg PO TID PRN PRN Reason: Anxiety Discharge Medication List Nitroglycerin Sl Tabs [Nitrostat] 0.4 mg SL Q5M PRN 02/10/16 [History] Aspirin 81 mg PO DAILY@0800 04/09/16 [History] Acetaminophen Tab [Tylenol] 650 mg PO Q4H PRN 01/27/19 [History] Ipratropium-Albuterol Nebulize [Duoneb 0.5 mg-3 mg/3 ml Soln] 3 ml INHALATION RT-Q6H PRN 02/21/19 [History] Levothyroxine Sodium [Synthroid] 100 mcg PO DAILY@79902/21/19 [History] Tamsulosin HCl [Flomax] 0.4 mg PO HS@209902/21/19 [History] HYDROcodone/APAP 10-325MG [Harrison 10-325] 1 tab PO BID PRN 04/25/19 [History] Atorvastatin [Lipitor] 20 mg PO HS 04/16/20 [History] Baclofen 5 mg PO BID@0800,209904/16/20 [History] Metoprolol Tartrate [Lopressor] 12.5 mg PO BID 04/16/20 [History] Pregabalin [Lyrica] 75 mg PO BID@0800,209904/16/20 [History] amLODIPine [Norvasc] 2.5 mg PO HS@209904/16/20 [History] ALPRAZolam [Xanax] 0.25 mg PO TID PRN 10/23/20 [History] Lactulose [Constulose] 10 gm PO BID PRN 10/23/20 [History] Nystatin/Triamcin [Nystatin-Triamcinolone Cream] 1 applic TOPICAL BID 10/23/20 [History] Rivaroxaban [Xarelto] 10 mg PO DAILY 10/23/20 [History] Cefuroxime Axetil [Ceftin] 500 mg PO BID #10 tab 10/26/20 [Rx] Ferrous Sulfate [Iron (65 MG Elemental)] 325 mg PO DAILY@0800 tab 10/26/20 [Rx] Follow up Appointment(s)/Referral(s): Dilshad Lopez DO [Primary Care Provider] - 1-2 days (Office closed at time of discharge - please telephone office Tuesday morning to arrange a follow-up appointment. Rhonda) [facility], [NON-STAFF] - Wound Center,[facility] [NON-STAFF] - As Needed Patient Instructions/Handouts: Wound Infection (DC), Chronic Wounds (DC) Activity/Diet/Wound Care/Special Instructions: *Call [facility] at [phone] at discharge to arrange ambulance transport. The form is on the patient's chart. Wound Care Instructions: Coccyx/Sacrum - Apply collagen, saline moistened gauze, dry gauze and sacral border foam. Change Tuesday. Abdomen - Apply absorptive silver, saline moist gauze and ABD to abdominal ulcerations secure with paper tape. Change Tuesday Discharge Disposition: HOME WITH HOME HEALTH SERVICES
== END 2020-10-26 17:00 | disposition home health service (06) | DRG 871 ==
LOC: EC 21:46 → 4SSUR 10-23 01:12 → OBSVTOIN 10-24 18:03
PROVIDERS: ADMIT Hospitalist; ATTEND Hospitalist
DX: A41.9 Sepsis, unspecified organism (principal); G93.41 Metabolic encephalopathy; F05 Delirium due to known physiological condition; L03.311 Cellulitis of abdominal wall; I48.92 Unspecified atrial flutter; L89.152 Pressure ulcer of sacral region, stage 2; I48.91 Unspecified atrial fibrillation; Z43.3 Encounter for attention to colostomy; L98.492 Non-pressure chronic ulcer of skin of other sites with fat layer exposed; E66.01 Morbid (severe) obesity due to excess calories; Z20.822 Contact with and (suspected) exposure to COVID-19; I25.10 Atherosclerotic heart disease of native coronary artery without angina pectoris; E78.5 Hyperlipidemia, unspecified; I10 Essential (primary) hypertension; L30.9 Dermatitis, unspecified; I25.2 Old myocardial infarction; M19.91 Primary osteoarthritis, unspecified site; E03.9 Hypothyroidism, unspecified; N40.0 Benign prostatic hyperplasia without lower urinary tract symptoms; G89.29 Other chronic pain; F43.10 Post-traumatic stress disorder, unspecified; M1A.9XX0 Chronic gout, unspecified, without tophus (tophi); M81.0 Age-related osteoporosis without current pathological fracture; M54.5 Low back pain; I45.10 Unspecified right bundle-branch block; G58.9 Mononeuropathy, unspecified; Z79.82 Long term (current) use of aspirin; Z79.890 Hormone replacement therapy; Z79.01 Long term (current) use of anticoagulants; Z79.899 Other long term (current) drug therapy; Z86.14 Personal history of Methicillin resistant Staphylococcus aureus infection; Z87.891 Personal history of nicotine dependence; Z74.01 Bed confinement status; Z86.19 Personal history of other infectious and parasitic diseases; Z90.49 Acquired absence of other specified parts of digestive tract; Z95.1 Presence of aortocoronary bypass graft; Z95.5 Presence of coronary angioplasty implant and graft; Z90.89 Acquired absence of other organs; Z87.19 Personal history of other diseases of the digestive system; Z98.42 Cataract extraction status, left eye; Z98.41 Cataract extraction status, right eye; Z90.79 Acquired absence of other genital organ(s); Z87.438 Personal history of other diseases of male genital organs; Z86.73 Personal history of transient ischemic attack (TIA), and cerebral infarction without residual deficits; Z87.01 Personal history of pneumonia (recurrent); Z98.890 Other specified postprocedural states; Z82.49 Family history of ischemic heart disease and other diseases of the circulatory system; Z68.36 Body mass index [BMI] 36.0-36.9, adult; Z71.3 Dietary counseling and surveillance
CPT/HCPCS: 36415; 71045; 74177; 80053; 81001; 82565; 83605; 84145; 85025; 87040; 87635; 93005; 94760; 96365; 96366; 96368; 99285

== ENCOUNTER 2020-11-13 16:26 | Observation (INO) | payer MEDICARE, OTHER ==
[2020-11-13] MEDS ORDERED: ACETAMINOPHEN TAB 500 MG TAB PO STA (17:36)
[2020-11-13] MEDS ORDERED: IBUPROFEN 600 MG TAB PO STA (17:36)
[2020-11-13] MEDS: SODIUM CHLORIDE 0.9% 1,000 ML IV SCH (17:59)
[2020-11-13] MEDS: SODIUM CHLORIDE 0.9% 500 ML 500 ML IV SCH ×2 (17:59→19:01)
[2020-11-13 18:09] LABS: Basophils # (A) 0.1 k/uL (0-0.2); Basophils % (A) 1 %; Eosinophils # (A) 0.1 k/uL (0-0.7); Eosinophils % (A) 1 %; HCT 42.2 % (39.0-53.0); HGB 14.1 gm/dL (13.0-17.5); Lymphocytes # (A) 0.6 k/uL (1.0-4.8); Lymphocytes % (A) 9 %; MCH 30.7 pg (25.0-35.0); MCHC 33.3 g/dL (31.0-37.0); MCV 92.2 fL (80.0-100.0); Mean Platelet Volume 7.5; Monocytes # (A) 0.5 k/uL (0-1.0); Monocytes % (A) 8 %; Neutrophils # (A) 4.8 k/uL (1.3-7.7); Neutrophils % (A) 78 %; Platelet Count 187 k/uL (150-450); RBC 4.58 m/uL (4.30-5.90); RDW 14.9 % (11.5-15.5); WBC 6.2 k/uL (3.8-10.6)
[2020-11-13 18:17] LABS: ALT 19 U/L (4-49); AST 27 U/L (17-59); African American GFR (CKD) >90 (>60 ml/min/1.73 sqM); Albumin 3.9 g/dL (3.5-5.0); Alkaline Phosphatase 112 U/L (38-126); Anion Gap 11 mmol/L; Blood Urea Nitrogen 21 mg/dL (9-20); Calcium 9.2 mg/dL (8.4-10.2); Carbon Dioxide 22 mmol/L (22-30); Chloride 104 mmol/L (98-107); Glucose 141 mg/dL (74-99); Non-African American GFR(CKD) 83 (>60 ml/min/1.73 sqM); Sodium 137 mmol/L (137-145); Total Bilirubin 0.4 mg/dL (0.2-1.3); Total Protein 7.1 g/dL (6.3-8.2)
[2020-11-13 18:20] LABS: INR 1.1 (<1.2); Partial Thromboplastin Time 26.2 sec (22.0-30.0); Prothrombin Time 11.4 sec (9.0-12.0)
--- NOTE | 2020-11-13 18:40 | ED ---
General Adult HPI - General Chief complaint: Recheck/Abnormal Lab/Rx Stated complaint: fever Time Seen by Provider: 11/13/20 16:45 Source: patient, EMS, RN notes reviewed, old records reviewed Mode of arrival: EMS Limitations: no limitations - History of Present Illness Initial comments: This is a 85-year-old male who presents emergency Department with a past medical history significant for recent ear infection son states they never found a source. Son states that when he went home however he did develop pneumonia just stopped antibiotics on Tuesday. Patient comes in today because the son stated that he felt warm and he had a temperature of 103 at home. Patient complains of lower back pain where he has decubitus ulcer and states that pain is unchanged. Son said at area is healing well. Patient denies any recent cough or difficulty breathing or shortness of breath. Patient denies any nausea vomiting or diarrhea. Patient denies any chest pain. Patient denies any lesions or areas of erythema that are unexplained. - Related Data Home Medications Medication Instructions Recorded Confirmed Nitroglycerin Sl Tabs [Nitrostat] 0.4 mg SL Q5M PRN 02/10/16 11/13/20 Aspirin 81 mg PO DAILY@0800 04/09/16 11/13/20 Acetaminophen Tab [Tylenol] 650 mg PO Q4H PRN 01/27/19 11/13/20 Ipratropium-Albuterol Nebulize 3 ml INHALATION RT-Q6H PRN 02/21/19 11/13/20 [Duoneb 0.5 mg-3 mg/3 ml Soln] Levothyroxine Sodium [Synthroid] 100 mcg PO DAILY@0802/21/19 11/13/20 Tamsulosin HCl [Flomax] 0.4 mg PO HS@209902/21/19 11/13/20 HYDROcodone/APAP 10-325MG [[place] 1 tab PO BID PRN 04/25/19 11/13/20 10-325] Atorvastatin [Lipitor] 20 mg PO HS 04/16/20 11/13/20 Baclofen 5 mg PO BID@0800,209904/16/20 11/13/20 Metoprolol Tartrate [Lopressor] 12.5 mg PO BID 04/16/20 11/13/20 Pregabalin [Lyrica] 75 mg PO BID@0800,209904/16/20 11/13/20 amLODIPine [Norvasc] 2.5 mg PO HS@209904/16/20 11/13/20 ALPRAZolam [Xanax] 0.25 mg PO TID PRN 10/23/20 11/13/20 Lactulose [Constulose] 10 gm PO BID PRN 10/23/20 11/13/20 Nystatin/Triamcin 1 applic TOPICAL BID 10/23/20 11/13/20 [Nystatin-Triamcinolone Cream] Rivaroxaban [Xarelto] 10 mg PO DAILY 10/23/20 11/13/20 Allergies Allergy/AdvReac Type Severity Reaction Status Date / Time No Known Allergies Allergy Verified 11/13/20 18:38 Review of Systems ROS Statement: Those systems with pertinent positive or pertinent negative responses have been documented in the HPI. ROS Other: All systems not noted in ROS Statement are negative. Past Medical History Past Medical History: Atrial Fibrillation, Atrial Flutter, Coronary Artery Disease (CAD), Chest Pain / Angina, CVA/TIA, Hyperlipidemia, Hypertension, Myocardial Infarction ([place]), Osteoarthritis (OA), Prostate Disorder, Skin Disorder, Thyroid Disorder Additional Past Medical History / Comment(s): Diverticulitis, HX PERFORATION. Gout. Eczema. BPH. Chronic Back Pain D/T PINCHED NERVE, has been bedridden since September. HX VERTIGO. FOOD GETTING STUCK IN THROAT - REMOVAL X3. Last Myocardial Infarction Date:: 08/2015 History of Any Multi-Drug Resistant Organisms: MRSA, Other MDRO, VRE Date of last positivie culture/infection: 06/18/20 MRSA 02/24/19 VRE MDRO Source:: Abdomen-MRSA & VRE Past Surgical History: Bowel Resection, Cardiac Ablation, Coronary Bypass/CABG, Heart Catheterization With Stent, Tonsillectomy Additional Past Surgical History / Comment(s): 02/11/16 Cardiac stent to SVG to diagonal; TOTAL 3 NOW. CABG X3 0n 07/11/15. CYST REMOVED FROM HEART 1958; LEFT TESTICLE REMOVED; МАРИНА CATARACTS. EGD W/ REMOVAL FB X3. Ostomy which failed, and redone. Colostomy since September 2018. Issues with sepsis since. At [facility] family was told Rene had a VAP which was drug resistant, unsure of type, November 2018. Past Anesthesia/Blood Transfusion Reactions: No Reported Reaction Additional Past Anesthesia/Blood Transfusion Reaction / Comment(s): no family hx Date of Last Stent Placement:: 02/11/16 Past Psychological History: PTSD Smoking Status: Former smoker Past Alcohol Use History: None Reported Past Drug Use History: None Reported - Past Family History Mother Family Medical History: Unable to Obtain Additional Family Medical History / Comment(s): Mother had a pacemaker. Father History Unknown: Yes Family Medical History: Myocardial Infarction (NM) General Exam - General Exam Comments Initial Comments: GENERAL: Patient is well-developed and well-nourished. Patient is nontoxic and well- hydrated and is in mild distress. ENT: Neck is soft and supple. No significant lymphadenopathy is noted. Oropharynx is clear. Moist mucous membranes. Neck has full range of motion without eliciting any pain. EYES: The sclera were anicteric and conjunctiva were pink and moist. Extraocular movements were intact and pupils were equal round and reactive to light. Eyeli ds were unremarkable. PULMONARY: Unlabored respirations. Good breath sounds bilaterally. No audible rales rhonchi or wheezing was noted. CARDIOVASCULAR: There is a regular rate and rhythm without any murmurs gallops or rubs. ABDOMEN: Soft and nontender with normal bowel sounds. SKIN: Skin is clear with no lesions or rashes and otherwise unremarkable. NEUROLOGIC: Patient is alert and oriented x3. Cranial nerves II through XII are grossly intact. Motor and sensory are also intact. Normal speech, volume and content. Symmetrical smile. MUSCULOSKELETAL: Normal extremities with adequate strength and full range of motion. Patient's legs are weak but they're equally weak. Patient has 2+ edema bilaterally LYMPHATICS: No significant lymphadenopathy is noted PSYCHIATRIC: Normal psychiatric evaluation. Limitations: no limitations Course Vital Signs 11/13/20 11/13/20 11/13/20 16:43 16:56 17:50 Temperature 101.2 F H 98.4 F Pulse Rate 93 65 Respiratory 16 16 18 Rate Blood Pressure 137/76 121/60 O2 Sat by Pulse 94 L 97 Oximetry 11/13/20 11/13/20 11/13/20 18:00 19:03 19:15 Temperature 98.4 F 99.1 F Pulse Rate 65 62 Respiratory 18 16 Rate Blood Pressure 121/60 121/61 O2 Sat by Pulse 97 97 Oximetry Medical Decision Making - Medical Decision Making EKG shows normal sinus rhythm at [address] interval 290 QRS 156 QT interval 396 QTC is 476. Patient's EKG shows a right bundle francine block. Chest x-ray showed no acute abnormality. Cultures were taken and about for given. - Lab Data Result diagrams: 11/13/20 16:48 11/13/20 16:48 Lab Results 11/13/20 11/13/20 11/13/20 Range/Units 16:48 16:48 16:48 WBC 6.2 (3.8-10.6) k/uL RBC 4.58 (4.30-5.90) m/uL Hgb 14.1 (13.0-17.5) gm/dL Hct 42.2 (39.0-53.0) % MCV 92.2 (80.0-100.0) fL MCH 30.7 (25.0-35.0) pg MCHC 33.3 (31.0-37.0) g/dL RDW 14.9 (11.5-15.5) % Plt Count 187 (150-450) k/uL MPV 7.5 Neutrophils % 78 % Lymphocytes % 9 % Monocytes % 8 % Eosinophils % 1 % Basophils % 1 % Neutrophils # 4.8 (1.3-7.7) k/uL Lymphocytes # 0.6 L (1.0-4.8) k/uL Monocytes # 0.5 (0-1.0) k/uL Eosinophils # 0.1 (0-0.7) k/uL Basophils # 0.1 (0-0.2) k/uL PT 11.4 (9.0-12.0) sec INR 1.1 (<1.2) APTT 26.2 (22.0-30.0) sec Sodium (137-145) mmol/L Potassium (3.5-5.1) mmol/L Chloride (98-107) mmol/L Carbon Dioxide (22-30) mmol/L Anion Gap mmol/L BUN (9-20) mg/dL Creatinine (0.66-1.25) mg/dL Est GFR (CKD-EPI)AfAm (>60 ml/min/1.73 sqM) Est GFR (CKD-EPI)NonAf (>60 ml/min/1.73 sqM) Glucose (74-99) mg/dL Plasma Lactic Acid Alexey (0.7-2.0) mmol/L Calcium (8.4-10.2) mg/dL Total Bilirubin (0.2-1.3) mg/dL AST (17-59) U/L ALT (4-49) U/L Alkaline Phosphatase (38-126) U/L Total Protein (6.3-8.2) g/dL Albumin (3.5-5.0) g/dL Urine Color Yellow Urine Appearance Clear (Clear) Urine pH 5.5 (5.0-8.0) Ur Specific Switzer 1.023 (1.001-1.035) Urine Protein 1+ H (Negative) Urine Glucose (UA) Negative (Negative) Urine Ketones Negative (Negative) Urine Blood Trace H (Negative) Urine Nitrite Negative (Negative) Urine Bilirubin Negative (Negative) Urine Urobilinogen <2.0 (<2.0) mg/dL Ur Leukocyte Esterase Negative (Negative) Urine RBC 15 H (0-5) /hpf Urine WBC 3 (0-5) /hpf Ur Squamous Epith Cells <1 (0-4) /hpf Urine Bacteria Rare H (None) /hpf Urine Mucus Rare H (None) /hpf Coronavirus (PCR) (Not Detectd) 11/13/20 11/13/20 11/13/20 Range/Units 16:48 16:48 17:47 WBC (3.8-10.6) k/uL RBC (4.30-5.90) m/uL Hgb (13.0-17.5) gm/dL Hct (39.0-53.0) % MCV (80.0-100.0) fL MCH (25.0-35.0) pg MCHC (31.0-37.0) g/dL RDW (11.5-15.5) % Plt Count (150-450) k/uL MPV Neutrophils % % Lymphocytes % % Monocytes % % Eosinophils % % Basophils % % Neutrophils # (1.3-7.7) k/uL Lymphocytes # (1.0-4.8) k/uL Monocytes # (0-1.0) k/uL Eosinophils # (0-0.7) k/uL Basophils # (0-0.2) k/uL PT (9.0-12.0) sec INR (<1.2) APTT (22.0-30.0) sec Sodium 137 (137-145) mmol/L Potassium 4.0 (3.5-5.1) mmol/L Chloride 104 (98-107) mmol/L Carbon Dioxide 22 (22-30) mmol/L Anion Gap 11 mmol/L BUN 21 H (9-20) mg/dL Creatinine 0.78 (0.66-1.25) mg/dL Est GFR (CKD-EPI)AfAm >90 (>60 ml/min/1.73 sqM) Est GFR (CKD-EPI)NonAf 83 (>60 ml/min/1.73 sqM) Glucose 141 H (74-99) mg/dL Plasma Lactic Acid Alexey 1.6 (0.7-2.0) mmol/L Calcium 9.2 (8.4-10.2) mg/dL Total Bilirubin 0.4 (0.2-1.3) mg/dL AST 27 (17-59) U/L ALT 19 (4-49) U/L Alkaline Phosphatase 112 (38-126) U/L Total Protein 7.1 (6.3-8.2) g/dL Albumin 3.9 (3.5-5.0) g/dL Urine Color Urine Appearance (Clear) Urine pH (5.0-8.0) Ur Specific Switzer (1.001-1.035) Urine Protein (Negative) Urine Glucose (UA) (Negative) Urine Ketones (Negative) Urine Blood (Negative) Urine Nitrite (Negative) Urine Bilirubin (Negative) Urine Urobilinogen (<2.0) mg/dL Ur Leukocyte Esterase (Negative) Urine RBC (0-5) /hpf Urine WBC (0-5) /hpf Ur Squamous Epith Cells (0-4) /hpf Urine Bacteria (None) /hpf Urine Mucus (None) /hpf Coronavirus (PCR) Not Detected (Not Detectd) Disposition Clinical Impression: Fever of unknown origin, Decubitus ulcer Disposition: ADMITTED IP TO THIS HOSP Referrals: Dilshad Lopez DO [Primary Care Provider] - 1-2 days Time of Disposition: 20:30
[2020-11-13 19:47] LABS: Appearance,Urine Clear (Clear); Bacteria,Urine Rare /hpf; Bilirubin,Urine Negative (Negative); Blood,Urine Trace (Negative); Color,Urine Yellow; Glucose,Urine (UA) Negative (Negative); Ketones,Urine Negative (Negative); Leukocyte Esterase,Urine Negative (Negative); Mucus,Urine Rare /hpf; Nitrite,Urine Negative (Negative); PH, Urine 5.5 (5.0-8.0); Protein,Urine 1+ (Negative); RBC,Urine 15 /hpf (0-5); Specific Gravity,Urine 1.023 (1.001-1.035); Squamous Epithelial Cell,Urine <1 /hpf (0-4); Urobilinogen,Urine <2.0 mg/dL (<2.0); WBC,Urine 3 /hpf (0-5)
--- NOTE | 2020-11-13 20:01 | XR ---
EXAMINATION TYPE: XR chest 2V DATE OF EXAM: 11/13/2020 COMPARISON: 10/22/2020 HISTORY: 85 years Male. STUDY INDICATION GIVEN: Fever . TECHNIQUE: Frontal and lateral chest radiographs FINDINGS AND IMPRESSION: Low lung volumes with mild central vascular congestion and subsegmental bibasilar atelectasis. Opacity in the retrocardiac space noted and an infiltrate cannot be excluded. Cardiomegaly with median sternotomy wires. No pneumothorax or pleural effusion seen. No acute osseous abnormality.
[2020-11-13] MEDS ORDERED: SODIUM CHLORIDE 0.9% 1,000 ML IV ONE (20:31)
[2020-11-13] MEDS: HYDROcodone/APAP 10-325MG 1 EACH TAB PO PRN (22:43)
[2020-11-14] MEDS ORDERED: IPRATROPIUM-ALBUTEROL 3 ML NEB INHALATION PRN (00:18)
[2020-11-14] MEDS ORDERED: NITROGLYCERIN SL TABS 0.4 MG TAB SUBLINGUAL PRN (00:18)
[2020-11-14] MEDS ORDERED: LACTULOSE 200 GM/300 ML (FROM 1/2 GAL JUG) PO PRN (00:18)
[2020-11-14] MEDS ORDERED: ACETAMINOPHEN TAB 325 MG TAB PO PRN (00:18)
[2020-11-14] MEDS: BACLOFEN 10 MG TAB PO SCH ×3 (00:41→21:22)
[2020-11-14] MEDS: PREGABALIN 75 MG CAP PO SCH ×3 (00:42→21:24)
[2020-11-14] MEDS: PIPERACILLIN-TAZOBACTAM 3.375 GM in SODIUM CHLORIDE 0.9% 100 ML IVPB SCH ×3 (00:42→16:58)
[2020-11-14] MEDS: amLODIPine 2.5 MG TAB PO SCH ×2 (01:45→21:22)
[2020-11-14] MEDS: METOPROLOL TARTRATE 12.5 MG TAB PO SCH ×3 (01:46→21:23)
[2020-11-14] MEDS: ATORVASTATIN 20 MG TAB PO SCH ×2 (01:46→21:22)
[2020-11-14] MEDS: HYDROcodone/APAP 10-325MG 1 EACH TAB PO PRN ×3 (07:35→23:16)
[2020-11-14] MEDS: RIVAROXABAN 10 MG TAB PO SCH (07:35)
[2020-11-14] MEDS: LEVOTHYROXINE 100 MCG TAB PO SCH (07:35)
[2020-11-14] MEDS: ASPIRIN 81 MG PO SCH (07:36)
[2020-11-14 14:11] VITALS: BMI 34.2
[2020-11-14] MEDS: ALPRAZolam 0.25 MG TAB PO PRN ×2 (14:38→19:23)
[2020-11-14] MEDS: SODIUM CHLORIDE 0.9% 1,000 ML IV SCH ×2 (16:00→21:04)
[2020-11-14 16:02] LABS: C Reactive Protein 6.2 mg/dL (<1.0)
[2020-11-14] MEDS: NYSTATIN 100,000UNIT/GM CREAM 30 GM TUBE TOPICAL SCH ×2 (16:49→21:31)
[2020-11-14] MEDS: TRIAMCINOLONE 0.1% CREAM 80 GM TUBE TOPICAL SCH ×2 (16:49→21:31)
--- NOTE | 2020-11-14 17:13 | P.HPIM ---
History of Present Illness H&P Date: 11/14/20 Chief Complaint: Fever 103 Hospital course: This is a 85-year-old patient of Dr. Lopez. October 2018. - acute perforated diverticulitis- sigmoid colectomy, had a drain in place with partial closure of the incision. Also had wound VAC on the lower half of the abdominal wall. being followed by Dr. Woodward from general surgery and Dr. Park from infectious disease. did have a colostomy in the past and had revision that was done at [facility].chronic stable medical conditions include gout, BPH, chronic low back pain, large sacral decubitus wound which patient had a wound VAC in place. Patient also had anterior abdominal wound which she's been healing with secondary intention. Had a PEG tube in the past that was removed in April 2020 Patient's currently at home. Patient has a wound in sacrum , being cared for by a visiting nurse. Patient recently in the hospital from October 23 through October 26. Patient discharged on 5 day supply of Ceftin. [He did have a septic picture with delirium but had no obvious source of infection was empirically treated with IV Zosyn. Patient now presents with a febrile 103 at home. Appetite is fair. Denies any cough or shortness of breath. No trouble making urine. No diarrhea. Has his sacral wound that is being cared for. Had a fever in the ER also. Patient was placed on IV Ancef. Review of systems: GEN.: Fever EYES: None HEENT: None NECK: None RESPIRATORY: None CARDIOVASCULAR: None GASTROINTESTINAL: Ostomy bag GENITOURINARY: None MUSCULOSKELETAL: Some joint pains LYMPHATICS: None HEMATOLOGICAL: None PSYCHIATRY: None NEUROLOGICAL: Generalized weakness Past medical history: Coronary artery disease with stent and bypass, atrial flutter, hypertension, hyperlipidemia, osteoporosis status, BPH, hypothyroid, sigmoid diverticulitis with perforation, intra-abdominal abscess, gout, PTSD, colostomy, pneumonia, Social history: Patient is an [employer] . Did smoke a pipe and cigar stopped 1971. At home with family. Does use a wheelchair Physical examination: VITAL SIGNS: 101.2, 93, 16, 137/76, 94% room air GENERAL: BMI 34.2, laying in bed, awake, tired EYES: Pupils equal. Conjunctiva pale HEENT: External appearance of nose and ears normal, oral cavity dry. NECK: JVD unable to assess; masses not palpable. HEART: Heart sounds irregular , no edema. LUNGS: Respiratory rate normal; decreased breath sounds. ABDOMEN: Soft, no tenderness, no guarding no rigidity, liver spleen not palpable , no masses palpable, bowel sounds present. Colostomy bag on the right side. abdominal wall stoma on the left side, superficial wound with dressing . PSYCH: AO - times three. Mood and affect normal NEUROLOGICAL: Cranial nerves grossly intact; no facial asymmetry, decreased power both lower extremities, DERMATOLOGICAL: Sacral wound Investigations reviewed in the clinical context WBC is 6.2 hemoglobin 14.1 platelets 187 potassium 4 creatinine 0.78 CRP 6.2 UA negative for leukoesterase. COVID 19 PCR: Not detected EKG tracing personally reviewed by me-normal sinus rhythm. Right bundle-branch block. Assessment and plan: -Acute febrile episode in a patient with chronic sacral wounds. Patient just completed a course of antibiotic. Patient denies any respiratory urinary symptoms. Currently empirically started on IV Ancef. ID consulted. -Chronic sacral wound decubitus . Local wound care and follow with ID -Right bundle-branch block -Paroxysmal atrial flutter, currently sinus rhythm Telemetry. Continue xarelto -Coronary artery disease with prior history of stent and bypass Norvasc, Lopressor, aspirin -Sigmoid colectomy with a resultant colostomy -Hyperlipidemia Lipitor -Essential hypertension Amlodipine, Lopressor -Primary osteoarthritis Pain medications, as needed -BPH On Flomax -Hypothyroidism Synthroid -Chronic gout -PTSD - is the DPOA, and the elder son is also the agent for medical advocate for the Care was discussed with the patient. IV Ancef. ID consulted. Questions answered. Home medications to be continued. Past Medical History Past Medical History: Atrial Fibrillation, Atrial Flutter, Coronary Artery Disease (CAD), Chest Pain / Angina, CVA/TIA, Hyperlipidemia, Hypertension, Myocardial Infarction ([place]), Osteoarthritis (OA), Prostate Disorder, Skin Disorder, Thyroid Disorder Additional Past Medical History / Comment(s): Diverticulitis, HX PERFORATION. Gout. Eczema. BPH. Chronic Back Pain D/T PINCHED NERVE, has been bedridden since September. HX VERTIGO. FOOD GETTING STUCK IN THROAT - REMOVAL X3. Last Myocardial Infarction Date:: 08/2015 History of Any Multi-Drug Resistant Organisms: MRSA, Other MDRO, VRE Date of last positivie culture/infection: 06/18/20 MRSA 02/24/19 VRE MDRO Source:: Abdomen-MRSA & VRE Past Surgical History: Bowel Resection, Cardiac Ablation, Coronary Bypass/CABG, Heart Catheterization With Stent, Tonsillectomy Additional Past Surgical History / Comment(s): 02/11/16 Cardiac stent to SVG to diagonal; TOTAL 3 NOW. CABG X3 0n 07/11/15. CYST REMOVED FROM HEART 195; LEFT TESTICLE REMOVED; МАРИНА CATARACTS. EGD W/ REMOVAL FB X3. Ostomy which failed, and redone. Colostomy since September 2018. Issues with sepsis since. At [facility] family was told Rene had a VAP which was drug resistant, unsure of type, November 2018. 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 Smoking Status: Former smoker Past Alcohol Use History: None Reported Additional Past Alcohol Use History / Comment(s): Hx cigar/pipe smoker from teen. quit smoking 1972 Past Drug Use History: None Reported - Past Family History Mother Family Medical History: Unable to Obtain Additional Family Medical History / Comment(s): Mother had a pacemaker. Father History Unknown: Yes Family Medical History: Myocardial Infarction ([place]) Medications and Allergies Home Medications Medication Instructions Recorded Confirmed Type Nitroglycerin Sl Tabs [Nitrostat] 0.4 mg SL Q5M PRN 02/10/16 11/13/20 History Aspirin 81 mg PO DAILY@0800 04/09/16 11/13/20 History Acetaminophen Tab [Tylenol] 650 mg PO Q4H PRN 01/27/19 11/13/20 History Ipratropium-Albuterol Nebulize 3 ml INHALATION RT-Q6H PRN 02/21/19 11/13/20 Hist ory [Duoneb 0.5 mg-3 mg/3 ml Soln] Levothyroxine Sodium [Synthroid] 100 mcg PO DAILY@0800 02/21/19 11/13/20 History Tamsulosin HCl [Flomax] 0.4 mg PO HS@2100 02/21/19 11/13/20 History HYDROcodone/APAP 10-325MG [[place]mp[place] 1 tab PO BID PRN 04/25/19 11/13/20 History 10-325] Atorvastatin [Lipitor] 20 mg PO HS 04/16/20 11/13/20 History Baclofen 5 mg PO BID@0800,2100 04/16/20 11/13/20 History Metoprolol Tartrate [Lopressor] 12.5 mg PO BID 04/16/20 11/13/20 History Pregabalin [Lyrica] 75 mg PO BID@0800,209904/16/20 11/13/20 History amLODIPine [Norvasc] 2.5 mg PO HS@209904/16/20 11/13/20 History ALPRAZolam [Xanax] 0.25 mg PO TID PRN 10/23/20 11/13/20 History Lactulose [Constulose] 10 gm PO BID PRN 10/23/20 11/13/20 History Nystatin/Triamcin 1 applic TOPICAL BID 10/23/20 11/13/20 History [Nystatin-Triamcinolone Cream] Rivaroxaban [Xarelto] 10 mg PO DAILY 10/23/20 11/13/20 History Allergies Allergy/AdvReac Type Severity Reaction Status Date / Time No Known Allergies Allergy Verified 11/13/20 18:38 Physical Exam Vitals: Vital Signs Temp Pulse Pulse Resp BP BP Pulse Ox 11/14/20 07:59 97.7 F 69 16 107/51 96 11/14/20 07:32 69 138/69 11/14/20 02:00 97.7 F 54 L 18 109/62 95 11/13/20 21:40 97.0 F L 56 L 16 108/56 97 11/13/20 19:15 99.1 F 11/13/20 19:03 62 16 121/61 97 11/13/20 18:00 98.4 F 65 18 121/60 97 11/13/20 17:50 98.4 F 65 18 121/60 97 11/13/20 16:56 16 11/13/20 16:43 101.2 F H 93 16 137/76 94 L Intake and Output 11/13/20 11/14/20 11/14/20 22:59 06:59 14:59 Other: Voiding Method Urinal Urinal # Voids 1 Weight 102.058 kg Results CBC & Chem 7: 11/13/20 16:48 11/13/20 16:48 Labs: Abnormal Lab Results - Last 24 Hours (Table) 11/13/20 11/13/20 11/13/20 Range/Units 16:48 16:48 16:48 Lymphocytes # 0.6 L (1.0-4.8) k/uL BUN 21 H (9-20) mg/dL Glucose 141 H (74-99) mg/dL Urine Protein 1+ H (Negative) Urine Blood Trace H (Negative) Urine RBC 15 H (0-5) /hpf Urine Bacteria Rare H (None) /hpf Urine Mucus Rare H (None) /hpf Microbiology - Last 24 Hours (Table) 11/13/20 20:34 Wound Culture - Preliminary Back 11/13/20 17:52 Wound Culture - Preliminary Back Thrombosis Risk Factor Assmnt - Choose All That Apply Any of the Below Risk Factors Present?: Yes Each Factor Represents 1 point: Medical pt on bed rest, Obesity (BMI >25), Serious lung disease incl. pneumonia (< 1month), Swollen legs (current) Each Risk Factor Represents 3 Points: Age 75 years or older Thrombosis Risk Factor Assessment Total Risk Factor Score: 7 Thrombosis Risk Factor Assessment Level: High Risk
--- NOTE | 2020-11-14 17:31 | CONS ---
CONSULTATION DATE OF SERVICE: 11/14/2020. REASON FOR CONSULTATION: Fever. HISTORY OF PRESENT ILLNESS: The patient is an 85-year-old male with a past medical history significant for multiple comorbid disease in this patient who did have history of perforated diverticulitis, exploratory laparotomy, sigmoid colectomy and colostomy, drainage of the abscess and requiring revision. The patient did have pressure ulcer to the sacral area as well and chronic nonhealing wound to the abdominal wall. The patient was recently admitted to this facility for a fever with no obvious focus. Apparently the patient subsequently has been diagnosed with pneumonia and has been treated with a course which the patient completed a few days ago. The patient was noticed to be febrile yesterday by the son when the patient was brought to the hospital. On arrival to the ER, the patient did have a fever of 101.2 degrees Fahrenheit with a heart rate of 54, the patient was saturating 94% on room air. The patient did have a normal white count with slight lymphopenia. BUN and creatinine were normal. Liver enzymes are normal. Urine was negative. Patel PCR was negative. The patient did have a chest x-ray that was reported low lung volumes space infection cannot be excluded. X-rays were reviewed with radiologist and there was no evidence of any definite infiltrate or pneumonia. The patient was started on Zosyn. He was admitted to the hospital. Infectious Disease was consulted for further management of antibiotic therapy. The patient is currently feeling better. No further fever has been recorded. The patient denies having any headache or chest pain. No shortness of breath. He did have very minimal cough, not bringing up any sputum. No nausea, no vomiting. No abdominal pain. No diarrhea. Overall feeling better and wants to go home. REVIEW OF SYSTEMS: Positive points have been mentioned in HPI. Rest of the systems are negative. PAST MEDICAL HISTORY: Atrial fibrillation, coronary artery disease, hypertension, hyperlipidemia, KS, osteoarthritis, hypothyroidism, diverticulitis with perforation, abdominal abscess. PAST SURGICAL HISTORY: Bowel resection, cardiac ablation, coronary bypass grafting, heart catheterization with stent, tonsillectomy. SOCIAL HISTORY: Remote history of smoking. No drinking or drug use. FAMILY HISTORY: Mother with history of pacemaker. Father history of KS. ALLERGIES: No known drug allergies. MEDICATIONS: The patient is currently on Tylenol, [place], DuoNeb, Xanax, Norvasc, aspirin, Lipitor, baclofen, Zosyn and lactulose, Synthroid, Lopressor, Nitrostat, Lyrica, Xarelto, Flomax, Kenalog. PHYSICAL EXAMINATION: Blood pressure 128/69 with a pulse of 73, temperature 98.4, T-max is 101. He is 100% on 2 L nasal cannula. General description is an elderly male lying in bed in no distress. No tachypnea or accessory muscles of respiration use. HEENT: Examination shows no pallor or scleral icterus. Oral mucous membranes dry. NECK: Trachea central. No thyromegaly. LUNGS: Unlabored breathing, decreased breath sounds in the base, with no wheeze or crackles. HEART S1, S2. Regular rate and rhythm. ABDOMEN: Soft. No tenderness. He did have a right lower abdominal wall superficial wound with no redness or any drainage. EXTREMITIES: Left leg is more swollen, red, slightly warm to touch. Examination of sacral area shows a stage II sacral pressure ulcer, cellulitis. NEUROLOGICAL: Patient is awake, alert, oriented times three. Mood and affect normal. LABS: Hemoglobin is 14.8, white count 6.2. BUN of 21, creatinine 0.78. Liver enzymes are normal. Electrolytes are normal. CRP 6.2. Urine is negative. Chest x-ray with a question of infiltrate, however, was reviewed with Dr. Riley, the radiologist and no obvious consolidation. PLAN: Patient presented to the hospital with fever in this patient recently treated for an episode of pneumonia. X-ray reviewed with radiologist. No obvious consolidation. Patient has very minimal cough, no sputum production. The patient currently does not have any other obvious focus of infection. Abdominal soft. Examination of wound looks clean. He did have slightly more swelling and redness of the left leg with concern for possible cellulitis of the left lower extremity. PLAN: 1. Discontinue Zosyn. 2. Start the patient on cefazolin 2 grams q.8 hours. 3. Repeat ultrasound of the left leg to make sure no evidence of any DVT. 4. We will follow on clinical condition and further adjust medication if needed. Thank you for this consultation. We will follow this patient along with you. The at the bedside. Multiple questions were answered in Layman's terms. MMODL / IJN: [id number] / [facility]
--- NOTE | 2020-11-14 18:42 | US ---
EXAMINATION TYPE: US venous doppler duplex LE LT DATE OF EXAM: 11/14/2020 4:52 PM COMPARISON: NONE CLINICAL HISTORY: swelling r/o dvt. no h/o dvt, left leg swelling SIDE PERFORMED: Left TECHNIQUE: The lower extremity deep venous system is examined utilizing real time linear array sonog jennifer with graded compression, doppler sonography and color-flow sonography. VESSELS IMAGED: Common Femoral Vein Deep Femoral Vein Greater Saphenous Vein * Femoral Vein Popliteal Vein Small Saphenous Vein * Proximal Calf Veins (* superficial vessels) Left Leg: Negative for DVT limited scan, could not view CFV due to patient's position, pain and in ability to move IMPRESSION: Limited exam fails to show evidence of deep vein thrombosis on the left leg.
[2020-11-14] MEDS: LACTATED RINGERS 1,000 ML IV SCH (20:15)
[2020-11-14] MEDS: TAMSULOSIN 0.4 MG CAP.ER.24H PO SCH (21:23)
[2020-11-15] MEDS: HYDROcodone/APAP 10-325MG 1 EACH TAB PO PRN ×3 (05:32→19:21)
[2020-11-15] MEDS: METOPROLOL TARTRATE 12.5 MG TAB PO SCH ×2 (08:18→21:20)
[2020-11-15] MEDS: RIVAROXABAN 10 MG TAB PO SCH (08:18)
[2020-11-15] MEDS: BACLOFEN 10 MG TAB PO SCH ×2 (08:18→21:19)
[2020-11-15] MEDS: ASPIRIN 81 MG PO SCH (08:18)
[2020-11-15] MEDS: LEVOTHYROXINE 100 MCG TAB PO SCH (08:18)
[2020-11-15] MEDS: TRIAMCINOLONE 0.1% CREAM 80 GM TUBE TOPICAL SCH ×2 (08:18→21:22)
[2020-11-15] MEDS: NYSTATIN 100,000UNIT/GM CREAM 30 GM TUBE TOPICAL SCH ×2 (08:18→21:22)
[2020-11-15] MEDS: PREGABALIN 75 MG CAP PO SCH ×2 (08:18→21:19)
[2020-11-15 09:03] LABS: HCT 45.2 % (39.0-53.0); HGB 14.8 gm/dL (13.0-17.5); MCH 30.7 pg (25.0-35.0); MCHC 32.7 g/dL (31.0-37.0); MCV 93.9 fL (80.0-100.0); Mean Platelet Volume 8.9; Platelet Count 143 k/uL (150-450); RBC 4.81 m/uL (4.30-5.90); RDW 15.3 % (11.5-15.5); WBC 6.9 k/uL (3.8-10.6)
[2020-11-15 09:31] LABS: Eosinophils # (M) 0.76 k/uL (0-0.7); Lymphocytes # (M) 0.41 k/uL (1.0-4.8); Monocytes # (M) 0.97 k/uL (0-1.0); Neutrophils # (M) 4.76 k/uL (1.3-7.7); Neutrophils % (M) 69 %; Nucleated Red Blood Cells 0 /100 WBC (0-0); Total Cells Counted 100
[2020-11-15] MEDS: LACTATED RINGERS 1,000 ML IV SCH (13:56)
--- NOTE | 2020-11-15 16:33 | PN ---
PROGRESS NOTE DATE OF SERVICE: 11/15/2020 REASON FOR FOLLOWUP: Fever, possible left leg cellulitis. INTERVAL HISTORY: The patient is afebrile. The patient is feeling better. He is breathing comfortably. Denies having any chest pain, shortness of breath or cough. No abdominal or pain to the lower extremity. PHYSICAL EXAMINATION: Blood pressure 98/60 with a pulse of 68, temperature 97.6. He is 98% on room air. General description is an elderly male lying in bed in no distress.. Respiratory system: Unlabored breathing, clear to auscultation anteriorly. Heart S1, S2. Regular rate and rhythm. Abdomen soft, no tenderness. Left leg swelling and redness has decreased. LABS: Left leg ultrasound was negative. DIAGNOSTIC IMPRESSION AND PLAN: Patient admitted to the hospital with fever. Concern for possible left lower extremity cellulitis. The patient is clinically responding to cefazolin, to continue. Finish therapy with oral Keflex and close outpatient followup. MMODL / IJN: [id number] /
--- NOTE | 2020-11-15 16:35 | P.PN ---
Progress Note - Text Progress Note Date: 11/15/20 Chief Complaint: Fever 103 Hospital course: This is a 85-year-old patient of Dr. Lopez. October 2018. - acute perforated diverticulitis- sigmoid colectomy, had a drain in place with partial closure of the incision. Also had wound VAC on the lower half of the abdominal wall. being followed by Dr. Woodward from general surgery and Dr. Park from infectious disease. did have a colostomy in the past and had revision that was done at [facility].chronic stable medical conditions include gout, BPH, chronic low back pain, large sacral decubitus wound which patient had a wound VAC in place. Patient also had anterior abdominal wound which she's been healing with secondary intention. Had a PEG tube in the past that was removed in April 2020 Patient's currently at home. Patient has a wound in sacrum , being cared for by a visiting nurse. Patient recently in the hospital from October 23 through October 26. Patient discharged on 5 day supply of Ceftin. [He did have a septic picture with delirium but had no obvious source of infection was empirically treated with IV Zosyn. Patient now presents with a febrile 103 at home. Appetite is fair. Denies any cough or shortness of breath. No trouble making urine. No diarrhea. Has his sacral wound that is being cared for. Had a fever in the ER also. Patient was placed on IV Ancef. November 15: Laying in bed. Afebrile. On IV Ancef. Comfortable. No source of infection present time. Review of systems: Was done for constitutional, cardiovascular, GI, pulmonary. relevant finding as above Active Medications Acetaminophen (Acetaminophen Tab 325 Mg Tab) 650 mg PO Q4H PRN PRN Reason: Pain Last Admin: 11/14/20 02:12 Dose: 650 mg Documented by: Hydrocodone Bitart/Acetaminophen (Hydrocodone/Apap 10-325mg 1 Each Tab) 1 each PO QID PRN PRN Reason: Pain Last Admin: 11/15/20 13:44 Dose: 1 each Documented by: Albuterol/Ipratropium (Ipratropium-Albuterol 3 Ml Neb) 3 ml INHALATION RT-Q6H PRN PRN Reason: Shortness Of Breath Alprazolam (Alprazolam 0.25 Mg Tab) 0.25 mg PO TID PRN PRN Reason: Anxiety Last Admin: 11/14/20 19:23 Dose: 0.25 mg Documented by: Amlodipine Besylate (Amlodipine 2.5 Mg Tab) 2.5 mg PO HS@2100 [facility] Last Admin: 11/14/20 21:22 Dose: 2.5 mg Documented by: Aspirin (Aspirin 81 Mg) 81 mg PO DAILY@0800 [facility] Last Admin: 11/15/20 08:18 Dose: 81 mg Documented by: Atorvastatin Calcium (Atorvastatin 20 Mg Tab) 20 mg PO HS [facility] Last Admin: 11/14/20 21:22 Dose: 20 mg Documented by: Baclofen (Baclofen 10 Mg Tab) 5 mg PO BID@0800,2100 [facility] Last Admin: 11/15/20 08:18 Dose: 5 mg Documented by: Cefazolin Sodium 2 gm/ Sodium (Chloride) 50 mls @ 100 mls/hr IVPB Q8HR [facility] Last Admin: 11/15/20 16:18 Dose: 100 mls/hr Documented by: Lactated Ringer's (Lactated Ringers) 1,000 mls @ 50 mls/hr IV .Q20H [facility] Last Admin: 11/15/20 13:56 Dose: Not Given Documented by: Lactulose (Lactulose 200 Gm/300 Ml (From 04/12 Gal Jug)) 10 gm PO BID PRN PRN Reason: Constipation Levothyroxine Sodium (Levothyroxine 100 Mcg Tab) 100 mcg PO DAILY@0800 [facility] Last Admin: 11/15/20 08:18 Dose: 100 mcg Documented by: Metoprolol Tartrate (Metoprolol Tartrate 12.5 Mg Tab) 12.5 mg PO BID [facility] Last Admin: 11/15/20 08:18 Dose: Not Given Documented by: Nitroglycerin (Nitroglycerin Sl Tabs 0.4 Mg Tab) 0.4 mg SUBLINGUAL Q5M PRN PRN Reason: Chest Pain Nystatin (Nystatin 100,000unit/Gm Cream 30 Gm Tube) 1 applic TOPICAL BID [facility]; Protocol Last Admin: 11/15/20 08:18 Dose: 1 applic Documented by: Pregabalin (Pregabalin 75 Mg Cap) 75 mg PO BID@0800,2100 [facility] Last Admin: 11/15/20 08:18 Dose: 75 mg Documented by: Rivaroxaban (Rivaroxaban 10 Mg Tab) 10 mg PO DAILY [facility]; Protocol Last Admin: 11/15/20 08:18 Dose: 10 mg Documented by: Tamsulosin HCl (Tamsulosin 0.4 Mg Cap.Er.24h) 0.4 mg PO HS@2100 [facility] Last Admin: 11/14/20 21:23 Dose: 0.4 mg Documented by: Triamcinolone Acetonide (Triamcinolone 0.1% Cream 80 Gm Tube) 1 applic TOPICAL BID [facility]; Protocol Last Admin: 11/15/20 08:18 Dose: 1 applic Documented by: Past medical history: Coronary artery disease with stent and bypass, atrial flutter, hypertension, hyperlipidemia, osteoporosis status, BPH, hypothyroid, sigmoid diverticulitis with perforation, intra-abdominal abscess, gout, PTSD, colostomy, pneumonia, Social history: Patient is an [employer] . Did smoke a pipe and cigar stopped 1971. At home with family. Does use a wheelchair Physical examination: VITAL SIGNS: Febrile, 61, 17, 122/64, 98% on 2 L GENERAL: Laying in bed, comfortable EYES: Pupils equal. Conjunctiva pale NECK: JVD unable to assess; masses not palpable. HEART: Heart sounds irregular , no edema. LUNGS: Respiratory rate normal; decreased breath sounds. ABDOMEN: Soft, no tenderness, no guarding no rigidity, liver spleen not palpable, no masses palpable, bowel sounds present. Colostomy bag on the right side. abdominal wall stoma on the left side, superficial wound with dressing . PSYCH: AO - times three. Mood and affect normal NEUROLOGICAL: decreased power both lower extremities, DERMATOLOGICAL: Sacral wound Investigations reviewed in the clinical context November 15: WBC 6.9 hemoglobin 14.8 pro-calcitonin 0.3 to WBC is 6.2 hemoglobin 14.1 platelets 187 potassium 4 creatinine 0.78 CRP 6.2 UA negative for leukoesterase. COVID 19 PCR: Not detected EKG tracing personally reviewed by me-normal sinus rhythm. Right bundle-branch block. Assessment and plan: -Acute febrile episode in a patient with chronic sacral wounds. Patient just completed a course of antibiotic. Patient denies any respiratory urinary symptoms. Currently empirically on IV Ancef. ID consulted. -Chronic sacral wound decubitus . Local wound care and follow with ID -Right bundle-branch block -Paroxysmal atrial flutter, currently sinus rhythm Telemetry. Continue xarelto -Coronary artery disease with prior history of stent and bypass Norvasc, Lopressor, aspirin -Sigmoid colectomy with a resultant colostomy -Hyperlipidemia Lipitor -Essential hypertension Amlodipine, Lopressor -Primary osteoarthritis Pain medications, as needed -BPH On Flomax -Hypothyroidism Synthroid -Chronic gout -PTSD - is the DPOA, and the elder son is also the agent for medical advocate for the Discussed with the patient. Continue current medication treatment plan including IV Ancef. Follow with ID. Blood culture and wound culture pending.
[2020-11-15] MEDS: ALPRAZolam 0.25 MG TAB PO PRN (19:21)
[2020-11-15] MEDS: TAMSULOSIN 0.4 MG CAP.ER.24H PO SCH (21:19)
[2020-11-15] MEDS: amLODIPine 2.5 MG TAB PO SCH (21:20)
[2020-11-15] MEDS: ATORVASTATIN 20 MG TAB PO SCH (21:20)
[2020-11-16] MEDS: HYDROcodone/APAP 10-325MG 1 EACH TAB PO PRN ×2 (02:13→09:03)
[2020-11-16] MEDS: METOPROLOL TARTRATE 12.5 MG TAB PO SCH (07:29)
[2020-11-16] MEDS: LEVOTHYROXINE 100 MCG TAB PO SCH (07:30)
[2020-11-16] MEDS: BACLOFEN 10 MG TAB PO SCH (07:30)
[2020-11-16] MEDS: ASPIRIN 81 MG PO SCH (07:30)
[2020-11-16] MEDS: RIVAROXABAN 10 MG TAB PO SCH (07:30)
[2020-11-16] MEDS: PREGABALIN 75 MG CAP PO SCH (07:30)
[2020-11-16] MEDS: NYSTATIN 100,000UNIT/GM CREAM 30 GM TUBE TOPICAL SCH (07:30)
[2020-11-16] MEDS: TRIAMCINOLONE 0.1% CREAM 80 GM TUBE TOPICAL SCH (07:30)
[2020-11-16 08:08] VITALS: BP 122/56; PULSE 63; RESP 17; TEMP 98
[2020-11-16] MEDS: LACTATED RINGERS 1,000 ML IV SCH (12:26)
--- NOTE | 2020-11-16 15:42 | PN ---
PROGRESS NOTE DATE OF SERVICE: 11/16/2020 REASON FOR FOLLOWUP: Fever, possible left leg cellulitis. INTERVAL HISTORY: The patient is afebrile. The patient is breathing comfortably on room air. The patient denies having any chest pain, shortness of breath or cough. No abdominal pain, no pain to the left lower extremity. Patient is insisting on going home. PHYSICAL EXAMINATION: Blood pressure 122/56, pulse of 63, temperature 98. He is 93% on room air. General description is an elderly male lying in bed in no distress. Respiratory system: Unlabored breathing, clear to auscultation anteriorly. Heart S1, S2. Regular rate and rhythm. Abdomen soft, no tenderness. Left leg swelling persists. Redness has decreased. LABS: Hemoglobin is 14.9, white count 6.9, DIAGNOSTIC IMPRESSION AND PLAN: Patient admitted to the hospital with fever with concern for possible left leg cellulitis. Chest x-ray negative for pneumonia. The patient did show overall improvement on cefazolin. Finish therapy with oral Keflex and close outpatient followup. MMODL / IJN: [id number] / MTDD
--- NOTE | 2020-11-16 17:34 | P.DS ---
Providers Date of admission: 11/13/20 20:33 Expected date of discharge: 11/16/20 Attending physician: Cosme Colon Consults: 11/13/20 20:31 Consult Physician Urgent Consulting Provider: Gerald Park Consult Reason/Comments: Fever of unknown origin Do you want consulting provider notified?: Yes Primary care physician: Dilshad [facility] Hospital Course: Chief Complaint: Fever 103 Hospital course: This is a 85-year-old patient of Dr. Lopez. October 2018. - acute perforated diverticulitis- sigmoid colectomy, had a drain in place with partial closure of the incision. Also had wound VAC on the lower half of the abdominal wall. being followed by Dr. Woodward from general surgery and Dr. Park from infectious disease. did have a colostomy in the past and had revision that was done at [facility].chronic stable medical conditions include gout, BPH, chronic low back pain, large sacral decubitus wound which patient had a wound VAC in place. Patient also had anterior abdominal wound which she's been healing with secondary intention. Had a PEG tube in the past that was removed in April 2020 Patient's currently at home. Patient has a wound in sacrum , being cared for by a visiting nurse. Patient recently in the hospital from October 23 through October 26. Patient discharged on 5 day supply of Ceftin. [He did have a septic picture with d elirium but had no obvious source of infection was empirically treated with IV Zosyn. Patient now presents with a febrile 103 at home. Appetite is fair. Denies any cough or shortness of breath. No trouble making urine. No diarrhea. Has his sacral wound that is being cared for. Had a fever in the ER also. Patient was placed on IV Ancef. Possible lower extremity cellulitis November 15: Laying in bed. Afebrile. On IV Ancef. Comfortable. No source of infection present time. November 16: Patient's had no more fever. Feeling well. Seen by ID Dr. Clifford. Possible cellulitis of lower extremity. Patient to be discharged on Keflex. Discussed with ID. Discussed with patient. Transported being arranged. Discussion and discharge planning more than 35 minutes Consultation: Dr. Park from ID Past medical history: Coronary artery disease with stent and bypass, atrial flutter, hypertension, hyperlipidemia, osteoporosis status, BPH, hypothyroid, sigmoid diverticulitis with perforation, intra-abdominal abscess, gout, PTSD, colostomy, pneumonia, Social history: Patient is an [employer] . Did smoke a pipe and cigar stopped 1971. At home with family. Does use a wheelchair Physical examination: VITAL SIGNS: 98, 63, 17, 122/56, 96% room air GENERAL: Laying in bed, comfortable EYES: Pupils equal. Conjunctiva pale NECK: JVD unable to assess; masses not palpable. HEART: Heart sounds irregular , no edema. LUNGS: Respiratory rate normal; decreased breath sounds. ABDOMEN: Soft, no tenderness, no guarding no rigidity, liver spleen not palpable, no masses palpable, bowel sounds present. Colostomy bag on the right side. abdominal wall stoma on the left side, superficial wound with dressing . PSYCH: AO - times three. Mood and affect normal NEUROLOGICAL: decreased power both lower extremities, DERMATOLOGICAL: Sacral wound Investigations reviewed in the clinical context November 15: WBC 6.9 hemoglobin 14.8 pro-calcitonin 0.32 WBC is 6.2 hemoglobin 14.1 platelets 187 potassium 4 creatinine 0.78 CRP 6.2 UA negative for leukoesterase. COVID 19 PCR: Not detected EKG tracing personally reviewed by me-normal sinus rhythm. Right bundle-branch block. Assessment and plan: -Acute febrile episode in a patient with chronic sacral wounds. Patient just completed a course of antibiotic. Patient denies any respiratory urinary symptoms. Possible lower extremity cellulitis Currently empirically on IV Ancef. Discharged on Keflex for 7 days -Chronic sacral wound decubitus . Local wound care and follow with ID -Right bundle-branch block -Paroxysmal atrial flutter, currently sinus rhythm Telemetry. Continue xarelto -Coronary artery disease with prior history of stent and bypass Norvasc, Lopressor, aspirin -Sigmoid colectomy with a resultant colostomy -Hyperlipidemia Lipitor -Essential hypertension Amlodipine, Lopressor -Primary osteoarthritis Pain medications, as needed -BPH On Flomax -Hypothyroidism Synthroid -Chronic gout -PTSD - is the DPOA, and the elder son is also the agent for medical advocate for the Disposition: Home Patient Condition at Discharge: Fair Plan - Discharge Summary Discharge Rx Participant: Yes New Discharge Prescriptions: New Cephalexin [Keflex] 500 mg PO Q8HR #21 cap Continue Nitroglycerin Sl Tabs [Nitrostat] 0.4 mg SL Q5M PRN PRN Reason: Chest Pain Aspirin 81 mg PO DAILY@0800 Acetaminophen Tab [Tylenol] 650 mg PO Q4H PRN PRN Reason: Pain Ipratropium-Albuterol Nebulize [Duoneb 0.5 mg-3 mg/3 ml Soln] 3 ml INHALATION RT-Q6H PRN PRN Reason: Shortness Of Breath Levothyroxine Sodium [Synthroid] 100 mcg PO DAILY@0800 Tamsulosin HCl [Flomax] 0.4 mg PO HS@2100 HYDROcodone/APAP 10-325MG [[place] 10-325] 1 tab PO BID PRN PRN Reason: Pain amLODIPine [Norvasc] 2.5 mg PO HS@2100 Atorvastatin [Lipitor] 20 mg PO HS Baclofen 5 mg PO BID@0800,2100 Pregabalin [Lyrica] 75 mg PO BID@0800,2099 Metoprolol Tartrate [Lopressor] 12.5 mg PO BID Nystatin/Triamcin [Nystatin-Triamcinolone Cream] 1 applic TOPICAL BID Lactulose [Constulose] 10 gm PO BID PRN PRN Reason: Constipation Rivaroxaban [Xarelto] 10 mg PO DAILY ALPRAZolam [Xanax] 0.25 mg PO TID PRN PRN Reason: Anxiety Discharge Medication List Nitroglycerin Sl Tabs [Nitrostat] 0.4 mg SL Q5M PRN 02/10/16 [History] Aspirin 81 mg PO DAILY@0800 04/09/16 [History] Acetaminophen Tab [Tylenol] 650 mg PO Q4H PRN 01/27/19 [History] Ipratropium-Albuterol Nebulize [Duoneb 0.5 mg-3 mg/3 ml Soln] 3 ml INHALATION RT-Q6H PRN 02/21/19 [History] Levothyroxine Sodium [Synthroid] 100 mcg PO DAILY@0800 02/21/19 [History] Tamsulosin HCl [Flomax] 0.4 mg PO HS@2100 02/21/19 [History] HYDROcodone/APAP 10-325MG [[place] 10-325] 1 tab PO BID PRN 04/25/19 [History] Atorvastatin [Lipitor] 20 mg PO HS 04/16/20 [History] Baclofen 5 mg PO BID@0800,2100 04/16/21 [History] Metoprolol Tartrate [Lopressor] 12.5 mg PO BID 04/16/20 [History] Pregabalin [Lyrica] 75 mg PO BID@0800,209904/16/20 [History] amLODIPine [Norvasc] 2.5 mg PO HS@209904/16/20 [History] ALPRAZolam [Xanax] 0.25 mg PO TID PRN 10/23/20 [History] Lactulose [Constulose] 10 gm PO BID PRN 10/23/20 [History] Nystatin/Triamcin [Nystatin-Triamcinolone Cream] 1 applic TOPICAL BID 10/23/20 [History] Rivaroxaban [Xarelto] 10 mg PO DAILY 10/23/20 [History] Cephalexin [Keflex] 500 mg PO Q8HR #21 cap 11/16/20 [Rx] Follow up Appointment(s)/Referral(s): Dilshad Lopez DO [Primary Care Provider] - 1-2 days [facility], [NON-STAFF] - Patient Instructions/Handouts: Cellulitis (DC), How to Prevent Pressure Injuries (DC) Discharge Disposition: HOME SELF-CARE
== END 2020-11-16 15:00 | disposition home or self-care (01) ==
LOC: EC 16:26 → 4SSUR 20:33
PROVIDERS: ADMIT Hospitalist; ATTEND Hospitalist
DX: L89.159 Pressure ulcer of sacral region, unspecified stage (principal); I45.10 Unspecified right bundle-branch block; R22.42 Localized swelling, mass and lump, left lower limb; I48.91 Unspecified atrial fibrillation; I48.92 Unspecified atrial flutter; I25.10 Atherosclerotic heart disease of native coronary artery without angina pectoris; Z20.822 Contact with and (suspected) exposure to COVID-19; Z93.3 Colostomy status; E78.5 Hyperlipidemia, unspecified; I10 Essential (primary) hypertension; M19.91 Primary osteoarthritis, unspecified site; N40.0 Benign prostatic hyperplasia without lower urinary tract symptoms; E03.9 Hypothyroidism, unspecified; G89.29 Other chronic pain; M54.5 Low back pain; M54.9 Dorsalgia, unspecified; M1A.9XX0 Chronic gout, unspecified, without tophus (tophi); F43.10 Post-traumatic stress disorder, unspecified; I25.2 Old myocardial infarction; K57.90 Diverticulosis of intestine, part unspecified, without perforation or abscess without bleeding; M19.90 Unspecified osteoarthritis, unspecified site; M81.0 Age-related osteoporosis without current pathological fracture; L30.9 Dermatitis, unspecified; G58.9 Mononeuropathy, unspecified; Z74.01 Bed confinement status; Z98.41 Cataract extraction status, right eye; Z98.42 Cataract extraction status, left eye; Z87.01 Personal history of pneumonia (recurrent); Z86.14 Personal history of Methicillin resistant Staphylococcus aureus infection; Z16.24 Resistance to multiple antibiotics; Z79.01 Long term (current) use of anticoagulants; Z79.82 Long term (current) use of aspirin; Z79.890 Hormone replacement therapy; Z79.899 Other long term (current) drug therapy; Z86.73 Personal history of transient ischemic attack (TIA), and cerebral infarction without residual deficits; Z87.891 Personal history of nicotine dependence; Z90.79 Acquired absence of other genital organ(s); Z90.49 Acquired absence of other specified parts of digestive tract; Z95.1 Presence of aortocoronary bypass graft; Z95.5 Presence of coronary angioplasty implant and graft; Z82.49 Family history of ischemic heart disease and other diseases of the circulatory system
CPT/HCPCS: 96361 ×3; 96366 ×3; 96365; 99284; 36415; 94760; 93005; 97162; 97166; 85379; 80053; 83605; 83615; 85025 ×2; 85610; 85730; 86140; 81001; 87040; 87070; 87205; 84145 ×2; 87635; 71046; 93971; G0378 ×5; J2543; J0690 ×2; J0696

== ENCOUNTER 2021-01-28 11:58 | Emergency (ER) | payer MEDICARE, OTHER ==
[2021-01-28 12:05] VITALS: BP 153/58; PULSE 64; RESP 20; TEMP 97.1
[2021-01-28] MEDS ORDERED: SODIUM CHLORIDE 0.9% 1,000 ML IV STA (12:44)
[2021-01-28 13:24] LABS: Basophils % (A) 0 %; Eosinophils # (A) 0.3 k/uL (0-0.7); Eosinophils % (A) 4 %; HGB 13.9 gm/dL (13.0-17.5); Lymphocytes # (A) 0.8 k/uL (1.0-4.8); Lymphocytes % (A) 11 %; MCH 29.3 pg (25.0-35.0); MCHC 31.6 g/dL (31.0-37.0); MCV 92.8 fL (80.0-100.0); Mean Platelet Volume 7.3; Monocytes # (A) 0.6 k/uL (0-1.0); Monocytes % (A) 9 %; Neutrophils # (A) 5.4 k/uL (1.3-7.7); Neutrophils % (A) 74 %; Platelet Count 218 k/uL (150-450); RBC 4.74 m/uL (4.30-5.90); RDW 15.5 % (11.5-15.5); WBC 7.4 k/uL (3.8-10.6)
[2021-01-28 13:33] LABS: Partial Thromboplastin Time 24.4 sec (22.0-30.0); Prothrombin Time 10.7 sec (9.0-12.0)
[2021-01-28 13:34] LABS: ALT 35 U/L (4-49); AST 29 U/L (17-59); African American GFR (CKD) >90 (>60 ml/min/1.73 sqM); Albumin 3.8 g/dL (3.5-5.0); Alkaline Phosphatase 121 U/L (38-126); Anion Gap 8 mmol/L; Blood Urea Nitrogen 13 mg/dL (9-20); Calcium 9.4 mg/dL (8.4-10.2); Carbon Dioxide 30 mmol/L (22-30); Chloride 100 mmol/L (98-107); Glucose 179 mg/dL (74-99); Non-African American GFR(CKD) 80 (>60 ml/min/1.73 sqM); Sodium 138 mmol/L (137-145); Total Bilirubin 0.3 mg/dL (0.2-1.3); Total Protein 7.3 g/dL (6.3-8.2)
[2021-01-28] MEDS ORDERED: HYDROmorphone 1 MG/ML 1 ML SYRINGE IVP STA (14:12)
--- NOTE | 2021-01-28 14:17 | XR ---
EXAMINATION TYPE: XR chest 1V portable DATE OF EXAM: 01/28/2021 COMPARISON: NONE HISTORY: Weakness TECHNIQUE: Single frontal view of the chest is obtained. FINDINGS: Right lower lobe infiltrate. Cardiomegaly with left lower lobe infiltrate. Underlying COPD . Atherosclerotic change aorta. No pneumothorax. IMPRESSION: Cardiomegaly, COPD and bilateral lower lobe infiltrate.
--- NOTE | 2021-01-28 14:27 | ED ---
Wound/Laceration HPI - General Chief Complaint: Wound/Laceration Stated Complaint: Possible Infection Time Seen by Provider: 01/28/21 12:35 Source: patient, family, EMS, RN notes reviewed Mode of arrival: EMS Limitations: no limitations - History of Present Illness Initial Comments: Patient is an 85-year-old male that presents to emergency department from home via EMS for chronic sacral wounds. He notes that he recently had a wound culture done that showed pseudomonas, MRSA and several other bacteria. Patient notes that he is doing wound care and it is healing is just taking longer than expected. Son notes that he does have a little bit of smell to it. Patient has been on antibiotics in the past for it. Patient was otherwise well-appearing in no apparent distress or pain. He noted he did have some back tenderness over the sacral area. He denied any chest pain first breath headache nausea vomiting diarrhea constipation fever fatigue chills. - Related Data Home Medications Medication Instructions Recorded Confirmed Nitroglycerin Sl Tabs [Nitrostat] 0.4 mg SL Q5M PRN 02/10/16 01/28/21 Aspirin 81 mg PO DAILY@0800 04/09/16 01/28/21 Acetaminophen Tab [Tylenol] 325 - 650 mg PO Q6H PRN 01/27/19 01/28/21 Ipratropium-Albuterol Nebulize 3 ml INHALATION RT-Q6H PRN 02/21/19 01/28/21 [Duoneb 0.5 mg-3 mg/3 ml Soln] Levothyroxine Sodium [Synthroid] 100 mcg PO DAILY@0800 02/21/19 01/28/21 Tamsulosin HCl [Flomax] 0.4 mg PO HS@209902/21/19 01/28/21 HYDROcodone/APAP 10-325MG [[place] 1 tab PO BID PRN 04/25/19 01/28/21 10-325] Atorvastatin [Lipitor] 20 mg PO HS 04/16/20 01/28/21 Baclofen 5 mg PO BID@0800,209904/16/20 01/28/21 Metoprolol Tartrate [Lopressor] 12.5 mg PO BID 04/16/20 01/28/21 Pregabalin [Lyrica] 75 mg PO BID@0800,209904/16/20 01/28/21 amLODIPine [Norvasc] 2.5 mg PO HS@2100 04/16/20 01/28/21 ALPRAZolam [Xanax] 0.25 mg PO TID PRN 10/23/20 01/28/21 Lactulose [Constulose] 10 gm PO BID PRN 10/23/20 01/28/21 Rivaroxaban [Xarelto] 10 mg PO DAILY 10/23/20 01/28/21 Ferrous Sulfate [Feosol] 325 mg PO DAILY 01/28/21 01/28/21 Multivitamins, Thera [Multivitamin 1 tab PO DAILY 01/28/21 01/28/21 (formulary)] Omeprazole 40 mg PO DAILY 01/28/21 01/28/21 Allergies Allergy/AdvReac Type Severity Reaction Status Date / Time No Known Allergies Allergy Verified 01/28/21 14:36 Review of Systems ROS Statement: Those systems with pertinent positive or pertinent negative responses have been documented in the HPI. ROS Other: All systems not noted in ROS Statement are negative. Past Medical History Past Medical History: Atrial Fibrillation, Atrial Flutter, Coronary Artery Disease (CAD), Chest Pain / Angina, CVA/TIA, Hyperlipidemia, Hypertension, Myocardial Infarction (VT), Osteoarthritis (OA), Prostate Disorder, Skin Disorder, Thyroid Disorder Additional Past Medical History / Comment(s): Diverticulitis, HX PERFORATION. Gout. Eczema. BPH. Chronic Back Pain D/T PINCHED NERVE, has been bedridden since September. HX VERTIGO. FOOD GETTING STUCK IN THROAT - REMOVAL X3. Last Myocardial Infarction Date:: 08/2015 History of Any Multi-Drug Resistant Organisms: MRSA, Other MDRO, VRE Date of last positivie culture/infection: 01/16/21 MRSA 02/24/19 VRE MDRO Source:: Abdomen-MRSA & VRE Past Surgical History: Bowel Resection, Cardiac Ablation, Coronary Bypass/CABG, Heart Catheterization With Stent, Tonsillectomy Additional Past Surgical History / Comment(s): 02/11/16 Cardiac stent to SVG to diagonal; TOTAL 3 NOW. CABG X3 0n 07/11/15. CYST REMOVED FROM HEART 1958; LEFT TESTICLE REMOVED; МАРИНА CAT[employer]S. EGD W/ REMOVAL FB X3. Ostomy which failed, and redone. Colostomy since September 2018. Issues with sepsis since. 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 Past Anesthesia/Blood Transfusion Reactions: No Reported Reaction Additional Past Anesthesia/Blood Transfusion Reaction / Comment(s): no family hx Date of Last Stent Placement:: 02/11/16 Past Psychological History: PTSD Smoking Status: Former smoker Past Alcohol Use History: None Reported Past Drug Use History: None Reported - Past Family History Mother Family Medical History: Unable to Obtain Additional Family Medical History / Comment(s): Mother had a pacemaker. Father History Unknown: Yes Family Medical History: Myocardial Infarction (VT) General Exam Limitations: no limitations General appearance: alert, in no apparent distress Head exam: Present: atraumatic, normocephalic, normal inspection Eye exam: Present: normal appearance, PERRL, EOMI. Absent: scleral icterus, co njunctival injection, periorbital swelling ENT exam: Present: normal exam, mucous membranes moist Neck exam: Present: normal inspection Respiratory exam: Present: normal lung sounds bilaterally. Absent: respiratory distress, wheezes, rales, rhonchi, stridor Cardiovascular Exam: Present: regular rate, normal rhythm, normal heart sounds. Absent: systolic murmur, diastolic murmur, rubs, gallop, clicks GI/Abdominal exam: Present: soft, normal bowel sounds. Absent: distended, tenderness, guarding, rebound, rigid Extremities exam: Present: normal inspection, full ROM, normal capillary refill. Absent: tenderness, pedal edema, joint swelling, calf tenderness Back exam: Present: normal inspection, tenderness (Over the sacral region) Neurological exam: Present: alert, oriented X3 Psychiatric exam: Present: normal affect, normal mood Skin exam: Present: warm, dry, intact, normal color. Absent: rash Course Vital Signs 01/28/21 12:00 Temperature 97.1 F L Pulse Rate 64 Respiratory 20 Rate Blood Pressure 153/58 O2 Sat by Pulse 97 Oximetry Medical Decision Making - Medical Decision Making 85-year-old male sent to hospital by [facility] for possible IV antibiotics. Basic labs, blood cultures, chest x-ray ordered. Dr. Colon consulted states that patient has had chronic wounds and wants to see what infectious disease has before accepting admit. Infectious disease was consulted and wanted lab results back to check for any white count fever or abnormalities. Dr. Park was consulted again and notes that since patient does not have a white count no fever patient can continue with local wound care. And antibiotics are not needed at this time. Case discussed with Dr. Cunningham, patient discharge home with follow-up to wound care and primary care. - Lab Data Result diagrams: 01/28/21 13:13 01/28/21 13:13 Lab Results 01/28/21 01/28/21 01/28/21 Range/Units 13:13 13:13 13:13 WBC 7.4 (3.8-10.6) k/uL RBC 4.74 (4.30-5.90) m/uL Hgb 13.9 (13.0-17.5) gm/dL Hct 44.0 (39.0-53.0) % MCV 92.8 (80.0-100.0) fL MCH 29.3 (25.0-35.0) pg MCHC 31.6 (31.0-37.0) g/dL RDW 15.5 (11.5-15.5) % Plt Count 218 (150-450) k/uL MPV 7.3 Neutrophils % 74 % Lymphocytes % 11 % Monocytes % 9 % Eosinophils % 4 % Basophils % 0 % Neutrophils # 5.4 (1.3-7.7) k/uL Lymphocytes # 0.8 L (1.0-4.8) k/uL Monocytes # 0.6 (0-1.0) k/uL Eosinophils # 0.3 (0-0.7) k/uL Basophils # 0.0 (0-0.2) k/uL PT 10.7 (9.0-12.0) sec INR 1.0 (<1.2) APTT 24.4 (22.0-30.0) sec Sodium 138 (137-145) mmol/L Potassium 4.0 (3.5-5.1) mmol/L Chloride 100 (98-107) mmol/L Carbon Dioxide 30 (22-30) mmol/L Anion Gap 8 mmol/L BUN 13 (9-20) mg/dL Creatinine 0.85 (0.66-1.25) mg/dL Est GFR (CKD-EPI)AfAm >90 (>60 ml/min/1.73 sqM) Est GFR (CKD-EPI)NonAf 80 (>60 ml/min/1.73 sqM) Glucose 179 H (74-99) mg/dL Calcium 9.4 (8.4-10.2) mg/dL Total Bilirubin 0.3 (0.2-1.3) mg/dL AST 29 (17-59) U/L ALT 35 (4-49) U/L Alkaline Phosphatase 121 (38-126) U/L Total Protein 7.3 (6.3-8.2) g/dL Albumin 3.8 (3.5-5.0) g/dL Disposition Clinical Impression: Stage IV pressure ulcer of sacral region Disposition: HOME SELF-CARE Condition: Stable Instructions (If sedation given, give patient instructions): Cellulitis (ED) Additional Instructions: Please return to the Emergency Department if symptoms worsen or any other concerns. Continue with wound care follow-up. Follow-up primary care 1-2 days. Per infectious disease recommendations local wound cares NEEDED at this time. Is patient prescribed a controlled substance at d/c from ED?: No Referrals: Leland Berry MD [Primary Care Provider] - 1-2 days Time of Disposition: 14:47
== END 2021-01-28 16:47 | disposition home or self-care (01) ==
LOC: EC 11:58
DX: L89.154 Pressure ulcer of sacral region, stage 4 (principal); I10 Essential (primary) hypertension; I25.2 Old myocardial infarction; E78.5 Hyperlipidemia, unspecified; E07.9 Disorder of thyroid, unspecified; M19.90 Unspecified osteoarthritis, unspecified site; I48.91 Unspecified atrial fibrillation; I25.10 Atherosclerotic heart disease of native coronary artery without angina pectoris; Z86.73 Personal history of transient ischemic attack (TIA), and cerebral infarction without residual deficits; Z95.5 Presence of coronary angioplasty implant and graft; Z79.82 Long term (current) use of aspirin; Z79.890 Hormone replacement therapy; Z79.899 Other long term (current) drug therapy
CPT/HCPCS: 36415; 80053; 85025; 85610; 85730; 87040; 71045; 99284; 96361; 96374; J1170

== ENCOUNTER 2021-06-11 17:04 | Inpatient (IN) | payer MEDICARE, OTHER ==
[2021-06-11] MEDS ORDERED: ACETAMINOPHEN TAB 500 MG TAB PO STA ×2 (17:25→21:55)
[2021-06-11 18:31] LABS: Anisocytosis Slight; HCT 44.8 % (39.0-53.0); HGB 14.9 gm/dL (13.0-17.5); MCH 29.7 pg (25.0-35.0); MCHC 33.2 g/dL (31.0-37.0); MCV 89.3 fL (80.0-100.0); Mean Platelet Volume 7.9; Platelet Count 190 k/uL (150-450); RBC 5.02 m/uL (4.30-5.90); RDW 16.2 % (11.5-15.5); WBC 8.6 k/uL (3.8-10.6)
--- NOTE | 2021-06-11 18:32 | CT ---
EXAMINATION TYPE: CT abdomen pelvis wo con CT DLP: 1714.4 mGycm, Automated exposure control for dose reduction was used. DATE OF EXAM: 06/11/2021 5:54 PM COMPARISON: CT abdomen pelvis most recent from 10/24/2020. CLINICAL INDICATION:Male, 85 years old with history of Abdominal pain, febrile; Abdominal pain, fever . PT unable to follow breathing commands. TECHNIQUE: Standard CT of the abdomen and pelvis following the administration of 100 cc of Isovue 3 00 IV contrast material. Coronal and sagittal reformats were performed. FINDINGS: LOWER CHEST: Sternotomy wires are seen within the lower sternum. Remote appearing right-sided rib fra cture. There is coronary artery and aortic valve leaflet calcifications. Similar consolidation change s in the right lower quadrant. ABDOMEN Some of the abdomen is out of the [id number]. LIVER: Unremarkable GALLBLADDER AND BILE DUCTS: Unremarkable. PANCREAS: Unremarkable. SPLEEN: Unremarkable. ADRENAL GLANDS: Unremarkable. KIDNEYS AND URETERS: No evidence of hydronephrosis. There is similar 7 mm distal ureter calculus near which is slightly bigger than prior and 2020. Persistent measuring 5 mm. Right renal cyst measuring 24 mm. PELVIS BLADDER: Layering calculi are seen within the bladder lumen. REPRODUCTIVE: Prostate is enlarged in size measuring 5.6 cm in transverse dimension. ABDOMEN & PELVIS STOMACH AND BOWEL: Ostomy noted with in the anterior abdomen. Few scattered clonic diverticula are pr esent. No evidence of bowel obstruction. Fecaloma noted within the rectum measuring up to 48 mm in tr ansverse dimension. PERITONEUM: No evidence of pneumoperitoneum or free fluid. VASCULATURE: Moderate atherosclerotic calcifications are present throughout the abdominal aorta and i ts branches. MUSCULOSKELETAL: Moderate disc degeneration changes are present throughout the thoracolumbar spine. D egenerative changes of the sacroiliac joints bilaterally. The sacrum is erosive changes to the sacrum and coccyx similar prior. LYMPH NODES: No gross evidence for lymphadenopathy. SOFT TISSUE/ABDOMINAL WALL: Fat filled inguinal hernias bilaterally. Decubitus ulcer skin thickening which is not significantly changed from prior. IMPRESSION: 1. Decubitus skin thickening over the sacrum without evidence with similar erosion of the coccyx and sacrum suggesting a component of chronic osteomyelitis. 2. Left distal ureter 7 mm calculus without evidence for hydronephrosis. Similar to prior. 3. Layering calculi within the bladder lumen, similar to prior. 4. Prostatomegaly. 5. Fecaloma within the rectum. 6. Anterior abdominal wall ostomy not significantly changed from prior.
[2021-06-11 18:42] LABS: INR 1.1 (<1.2); Prothrombin Time 11.4 sec (9.0-12.0)
[2021-06-11] MEDS ORDERED: HYDROmorphone 0.5 MG/0.5 ML SYRINGE IVP STA ×2 (18:43→19:08)
[2021-06-11 18:46] LABS: Partial Thromboplastin Time 21.2 sec (22.0-30.0)
[2021-06-11] MEDS ORDERED: SODIUM CHLORIDE 0.9% 1,000 ML IV ONE (19:07)
[2021-06-11 19:18] LABS: Albumin 4.2 g/dL (3.5-5.0); C Reactive Protein 1.5 mg/dL (<1.0); Calcium 9.3 mg/dL (8.4-10.2); Potassium 4.6 mmol/L (3.5-5.1); Total Bilirubin 0.7 mg/dL (0.2-1.3)
[2021-06-11 19:19] LABS: Erythrocyte Sedimentation Rate 10 mm/hr (0-15)
--- NOTE | 2021-06-11 19:36 | ED ---
Abdominal Pain HPI - General Chief Complaint: Abdominal Pain Stated Complaint: Back Pain/Poss UTI Time Seen by Provider: 06/11/21 17:21 Source: family, EMS, RN notes reviewed Mode of arrival: EMS Limitations: physical limitation - History of Present Illness Initial Comments: This is an 85 year old male who presents to the emergency department for abdomin al pain. Per his , the patient began complaining of abdominal pain around 2pm this afternoon. Before coming to the hospital, he was afebrile at 98 degrees F. He does have a pressure ulcer on his sacrum that has been present for 2.5 years. This is being treated by the wound center here and has improved substantially per his . Patient is very difficult to obtain a history from. Upon requestioning the patient, he reported pain in his back that had been present for 3 years, likely referring to the ulcer. His states that he complains about this on a regular basis. He has been in 2 nursing homes, both of which told the patient he would , so his decided to take him home. He has been bedridden since September 2020, and has to be transferred out of bed using a sling device. His is hoping that by the end of this year, his ulcer will have healed well enough to where he will be able to use a wheelchair. Code status discussed with his , who states that the patient does not want intervention if it means being on a ventilator for the rest of his life. - Related Data Home Medications Medication Instructions Recorded Confirmed Nitroglycerin Sl Tabs [Nitrostat] 0.4 mg SL Q5M PRN 02/10/16 06/11/21 Aspirin 81 mg PO DAILY@0804/09/16 06/11/21 Acetaminophen Tab [Tylenol] 325 - 650 mg PO Q6H PRN 01/27/19 06/11/21 Ipratropium-Albuterol Nebulize 3 ml INHALATION RT-Q6H PRN 02/21/19 06/11/21 [Duoneb 0.5 mg-3 mg/3 ml Soln] Levothyroxine Sodium [Synthroid] 100 mcg PO DAILY@0800 02/21/19 06/11/21 Tamsulosin HCl [Flomax] 0.4 mg PO HS@199902/21/19 06/11/21 HYDROcodone/APAP 10-325MG [Sacul 1 tab PO TID PRN 04/25/19 06/11/21 10-325] Atorvastatin [Lipitor] 20 mg PO HS@199904/16/20 06/11/21 Baclofen 5 mg PO BID@0800,199904/16/20 06/11/21 Metoprolol Tartrate [Lopressor] 12.5 mg PO BID@0800,199904/16/20 06/11/21 amLODIPine [Norvasc] 2.5 mg PO HS@199904/16/20 06/11/21 ALPRAZolam [Xanax] 0.25 mg PO TID PRN 10/23/20 06/11/21 Lactulose [Constulose] 10 gm PO BID PRN 10/23/20 06/11/21 Rivaroxaban [Xarelto] 10 mg PO DAILY@1700 10/23/20 06/11/21 Ferrous Sulfate [Feosol] 325 mg PO DAILY@0800 01/28/21 06/11/21 Multivitamins, Thera [Multivitamin 1 tab PO DAILY@0800 01/28/21 06/11/21 (formulary)] Omeprazole 40 mg PO DAILY@0800 01/28/21 06/11/21 Cranberry Fruit Extract [Cranberry] 500 mg PO HS@199906/11/21 06/11/21 Docusate [Colace] 100 mg PO TID@0800,1700,199906/11/21 06/11/21 Pregabalin [Lyrica] 100 mg PO BID@0800,199906/11/21 06/11/21 Triamcinolone 0.1% Ointment 1 applic TOPICAL BID 06/11/21 06/11/21 [Kenalog 0.1% Ointment] Allergies Allergy/AdvReac Type Severity Reaction Status Date / Time No Known Allergies Allergy Verified 06/11/21 18:24 Review of Systems ROS Statement: Those systems with pertinent positive or pertinent negative responses have been documented in the HPI. ROS Other: All systems not noted in ROS Statement are negative. Constitutional: Reports: fever, chills ENT: Denies: ear pain, throat pain Respiratory: Denies: cough, dyspnea Cardiovascular: Denies: chest pain, palpitations Gastrointestinal: Reports: abdominal pain. Denies: nausea, vomiting Genitourinary: Denies: urgency, dysuria Musculoskeletal: Reports: back pain Skin: Reports: rash Neurological: Denies: headache Past Medical History Past Medical History: Atrial Fibrillation, Atrial Flutter, Coronary Artery Disease (CAD), Chest Pain / Angina, CVA/TIA, Hyperlipidemia, Hypertension, Myocardial Infarction (SD), Osteoarthritis (OA), Prostate Disorder, Skin Disorder, Thyroid Disorder Additional Past Medical History / Comment(s): Diverticulitis, HX PERFORATION. Gout. Eczema. BPH. Chronic Back Pain D/T PINCHED NERVE, has been bedridden since September. HX VERTIGO. FOOD GETTING STUCK IN THROAT - REMOVAL X3. Last Myocardial Infarction Date:: 08/2015 History of Any Multi-Drug Resistant Organisms: MRSA, Other MDRO, VRE Date of last positivie culture/infection: 01/16/21 MRSA 02/24/19 VRE MDRO Source:: Abdomen-MRSA & VRE Past Surgical History: Bowel Resection, Cardiac Ablation, Coronary Bypass/CABG, Heart Catheterization With Stent, Tonsillectomy Additional Past Surgical History / Comment(s): 02/11/16 Cardiac stent to SVG to diagonal; TOTAL 3 NOW. CABG X3 0n 07/11/15. CYST REMOVED FROM HEART 1958; LEFT TESTICLE REMOVED; МАРИНА CAT[employer]ACTS. EGD W/ REMOVAL FB X3. Ostomy which failed, and redone. Colostomy since September 2018. Issues with sepsis since. 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 Past Anesthesia/Blood Transfusion Reactions: No Reported Reaction Additional Past Anesthesia/Blood Transfusion Reaction / Comment(s): no family hx Date of Last Stent Placement:: 02/11/16 Past Psychological History: PTSD Smoking Status: Former smoker Past Alcohol Use History: None Reported Past Drug Use History: None Reported - Past Family History Mother Family Medical History: Unable to Obtain Additional Family Medical History / Comment(s): Mother had a pacemaker. Father History Unknown: Yes Family Medical History: Myocardial Infarction (SD) General Exam Limitations: physical limitation General appearance: alert, in distress Head exam: Present: atraumatic, normocephalic, normal inspection Respiratory exam: Present: normal lung sounds bilaterally. Absent: respiratory distress, wheezes, rales, rhonchi, stridor Cardiovascular Exam: Present: regular rate, normal rhythm, normal heart sounds. Absent: systolic murmur, diastolic murmur, rubs, gallop, clicks GI/Abdominal exam: Present: soft, normal bowel sounds, other (covered ostomy site with no surrounding erythema or increased heat. No evidence of purulent drainage. ). Absent: organomegaly, mass Extremities exam: Present: normal inspection, normal capillary refill. Absent: tenderness, pedal edema Neurological exam: Present: alert, oriented X3 Course Vital Signs 06/11/21 06/11/21 06/11/21 17:07 19:30 21:47 Temperature 104.7 F H 99.0 F Pulse Rate 119 H 90 83 Respiratory 16 18 20 Rate Blood Pressure 100/54 105/62 100/50 O2 Sat by Pulse 92 L 98 96 Oximetry 06/11/21 06/11/21 06/12/21 23:08 23:40 00:00 Temperature 99.0 F Pulse Rate 85 168 H 163 H Respiratory 20 20 20 Rate Blood Pressure 94/54 78/30 68/51 O2 Sat by Pulse 96 98 Oximetry 06/12/21 06/12/21 00:29 00:36 Temperature Pulse Rate 99 158 H Respiratory 20 20 Rate Blood Pressure 76/50 84/49 O2 Sat by Pulse Oximetry Medical Decision Making - Medical Decision Making This is an 85 year old male who presents to the emergency department for abdomin al pain. Patient found to be febrile in the ED at 104.7 and was given 1g of Tylenol. Patient has been crying out in his room from the pain. Given 0.7mg of Dilauded. CT abd/pelvis obtained without contrast initially given concern for bowel perforation due to his fever, severe pain, and hx of bowel perforation. Did not want to wait for lab work with kidney function in order to proceed with contrast. Lab work returned with critical values for lactic acid and troponin. Repeat troponin ordered for 3 hours. EKG revealed no acute changes. Patient given 2g of Rocephin for fever of unknown origin and elevated lactic acid. Patient straight cathed to obtain UA stat. Patient started on 2L oxygen via buffy al cannula due to a saturation of 92%, which increased oxygen to 96%. Blood pressures have been soft but stable, hovering around 100 systolically, with a HR in the mid to high 80s. Patient admitted to Dr. Escalante in the ICU for sepsis of unknown origin. This patient was evaluated with ED attending Dr. Floyd for further workup and the development of a treatment plan. - Lab Data Result diagrams: 06/11/21 18:20 06/11/21 18:20 Lab Results 06/11/21 06/11/21 06/11/21 Range/Units 18:20 18:20 18:20 WBC 8.6 (3.8-10.6) k/uL RBC 5.02 (4.30-5.90) m/uL Hgb 14.9 (13.0-17.5) gm/dL Hct 44.8 (39.0-53.0) % MCV 89.3 (80.0-100.0) fL MCH 29.7 (25.0-35.0) pg MCHC 33.2 (31.0-37.0) g/dL RDW 16.2 H (11.5-15.5) % Plt Count 190 (150-450) k/uL MPV 7.9 Neutrophils % (Manual) 89 % Band Neuts % (Manual) 9 % Lymphocytes % (Manual) 1 % Eosinophils % (Manual) 1 % Neutrophils # (Manual) 8.40 H (1.3-7.7) k/uL Lymphocytes # (Manual) 0.09 L (1.0-4.8) k/uL Eosinophils # (Manual) 0.09 (0-0.7) k/uL Nucleated RBCs 0 (0-0) /100 WBC Manual Slide Review Performed Anisocytosis Slight ESR 10 (0-15) mm/hr PT 11.4 (9.0-12.0) sec INR 1.1 (<1.2) APTT 21.2 L (22.0-30.0) sec Sodium 137 (137-145) mmol/L Potassium 4.6 (3.5-5.1) mmol/L Chloride 101 (98-107) mmol/L Carbon Dioxide 19 L (22-30) mmol/L Anion Gap 17 mmol/L BUN 19 (9-20) mg/dL Creatinine 1.23 (0.66-1.25) mg/dL Est GFR (CKD-EPI)AfAm 62 (>60 ml/min/1.73 sqM) Est GFR (CKD-EPI)NonAf 54 (>60 ml/min/1.73 sqM) Glucose 221 H (74-99) mg/dL Lactic Ac Sepsis Rflx Plasma Lactic Acid Alexey (0.7-2.0) mmol/L Calcium 9.3 (8.4-10.2) mg/dL Total Bilirubin 0.7 (0.2-1.3) mg/dL AST 74 H (17-59) U/L ALT 35 (4-49) U/L Alkaline Phosphatase 161 H (38-126) U/L Troponin I (0.000-0.034) ng/mL C-Reactive Protein 1.5 H (<1.0) mg/dL Total Protein 8.0 (6.3-8.2) g/dL Albumin 4.2 (3.5-5.0) g/dL Amylase 42 (30-110) U/L Lipase 83 (23-300) U/L Coronavirus (PCR) (Not Detectd) Influenza Type A RNA (Not Detectd) Influenza Type B (PCR) (Not Detectd) 06/11/21 06/11/21 06/11/21 Range/Units 18:20 18:20 18:50 WBC (3.8-10.6) k/uL RBC (4.30-5.90) m/uL Hgb (13.0-17.5) gm/dL Hct (39.0-53.0) % MCV (80.0-100.0) fL MCH (25.0-35.0) pg MCHC (31.0-37.0) g/dL RDW (11.5-15.5) % Plt Count (150-450) k/uL MPV Neutrophils % (Manual) % Band Neuts % (Manual) % Lymphocytes % (Manual) % Eosinophils % (Manual) % Neutrophils # (Manual) (1.3-7.7) k/uL Lymphocytes # (Manual) (1.0-4.8) k/uL Eosinophils # (Manual) (0-0.7) k/uL Nucleated RBCs (0-0) /100 WBC Manual Slide Review Anisocytosis ESR (0-15) mm/hr PT (9.0-12.0) sec INR (<1.2) APTT (22.0-30.0) sec Sodium (137-145) mmol/L Potassium (3.5-5.1) mmol/L Chloride (98-107) mmol/L Carbon Dioxide (22-30) mmol/L Anion Gap mmol/L BUN (9-20) mg/dL Creatinine (0.66-1.25) mg/dL Est GFR (CKD-EPI)AfAm (>60 ml/min/1.73 sqM) Est GFR (CKD-EPI)NonAf (>60 ml/min/1.73 sqM) Glucose (74-99) mg/dL Lactic Ac Sepsis Rflx Y Plasma Lactic Acid Alexey 5.4 H* (0.7-2.0) mmol/L Calcium (8.4-10.2) mg/dL Total Bilirubin (0.2-1.3) mg/dL AST (17-59) U/L ALT (4-49) U/L Alkaline Phosphatase (38-126) U/L Troponin I 0.143 H* (0.000-0.034) ng/mL C-Reactive Protein (<1.0) mg/dL Total Protein (6.3-8.2) g/dL Albumin (3.5-5.0) g/dL Amylase (30-110) U/L Lipase (23-300) U/L Coronavirus (PCR) (Not Detectd) Influenza Type A RNA (Not Detectd) Influenza Type B (PCR) (Not Detectd) 06/11/21 06/11/21 06/11/21 Range/Units 19:18 19:18 21:20 WBC (3.8-10.6) k/uL RBC (4.30-5.90) m/uL Hgb (13.0-17.5) gm/dL Hct (39.0-53.0) % MCV (80.0-100.0) fL MCH (25.0-35.0) pg MCHC (31.0-37.0) g/dL RDW (11.5-15.5) % Plt Count (150-450) k/uL MPV Neutrophils % (Manual) % Band Neuts % (Manual) % Lymphocytes % (Manual) % Eosinophils % (Manual) % Neutrophils # (Manual) (1.3-7.7) k/uL Lymphocytes # (Manual) (1.0-4.8) k/uL Eosinophils # (Manual) (0-0.7) k/uL Nucleated RBCs (0-0) /100 WBC Manual Slide Review Anisocytosis ESR (0-15) mm/hr PT (9.0-12.0) sec INR (<1.2) APTT (22.0-30.0) sec Sodium (137-145) mmol/L Potassium (3.5-5.1) mmol/L Chloride (98-107) mmol/L Carbon Dioxide (22-30) mmol/L Anion Gap mmol/L BUN (9-20) mg/dL Creatinine (0.66-1.25) mg/dL Est GFR (CKD-EPI)AfAm (>60 ml/min/1.73 sqM) Est GFR (CKD-EPI)NonAf (>60 ml/min/1.73 sqM) Glucose (74-99) mg/dL Lactic Ac Sepsis Rflx Plasma Lactic Acid Alexey (0.7-2.0) mmol/L Calcium (8.4-10.2) mg/dL Total Bilirubin (0.2-1.3) mg/dL AST (17-59) U/L ALT (4-49) U/L Alkaline Phosphatase (38-126) U/L Troponin I 0.191 H* (0.000-0.034) ng/mL C-Reactive Protein (<1.0) mg/dL Total Protein (6.3-8.2) g/dL Albumin (3.5-5.0) g/dL Amylase (30-110) U/L Lipase (23-300) U/L Coronavirus (PCR) Not Detected (Not Detectd) Influenza Type A RNA Not Detected (Not Detectd) Influenza Type B (PCR) Not Detected (Not Detectd) 06/11/21 Range/Units 21:20 WBC (3.8-10.6) k/uL RBC (4.30-5.90) m/uL Hgb (13.0-17.5) gm/dL Hct (39.0-53.0) % MCV (80.0-100.0) fL MCH (25.0-35.0) pg MCHC (31.0-37.0) g/dL RDW (11.5-15.5) % Plt Count (150-450) k/uL MPV Neutrophils % (Manual) % Band Neuts % (Manual) % Lymphocytes % (Manual) % Eosinophils % (Manual) % Neutrophils # (Manual) (1.3-7.7) k/uL Lymphocytes # (Manual) (1.0-4.8) k/uL Eosinophils # (Manual) (0-0.7) k/uL Nucleated RBCs (0-0) /100 WBC Manual Slide Review Anisocytosis ESR (0-15) mm/hr PT (9.0-12.0) sec INR (<1.2) APTT (22.0-30.0) sec Sodium (137-145) mmol/L Potassium (3.5-5.1) mmol/L Chloride (98-107) mmol/L Carbon Dioxide (22-30) mmol/L Anion Gap mmol/L BUN (9-20) mg/dL Creatinine (0.66-1.25) mg/dL Est GFR (CKD-EPI)AfAm (>60 ml/min/1.73 sqM) Est GFR (CKD-EPI)NonAf (>60 ml/min/1.73 sqM) Glucose (74-99) mg/dL Lactic Ac Sepsis Rflx Plasma Lactic Acid Alexey 5.2 H* (0.7-2.0) mmol/L Calcium (8.4-10.2) mg/dL Total Bilirubin (0.2-1.3) mg/dL AST (17-59) U/L ALT (4-49) U/L Alkaline Phosphatase (38-126) U/L Troponin I (0.000-0.034) ng/mL C-Reactive Protein (<1.0) mg/dL Total Protein (6.3-8.2) g/dL Albumin (3.5-5.0) g/dL Amylase (30-110) U/L Lipase (23-300) U/L Coronavirus (PCR) (Not Detectd) Influenza Type A RNA (Not Detectd) Influenza Type B (PCR) (Not Detectd) - EKG Data EKG Comments: EKG reveals sinus tachycardia with occasional supraventricular premature complexes. 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 Ventricular rate of 116 BPM, RI interval of 172 ms, QRS duration of 143 ms, and QTc of 400 ms. - Radiology Data Radiology results: report reviewed, image reviewed Disposition Clinical Impression: Sepsis due to other etiology Disposition: ADMITTED IP TO THIS HOSP
[2021-06-11 20:33] LABS: Band Neutrophils % 9 %; Eosinophils # (M) 0.09 k/uL (0-0.7); Lymphocytes # (M) 0.09 k/uL (1.0-4.8); Neutrophils % (M) 89 %; Nucleated Red Blood Cells 0 /100 WBC (0-0); Total Cells Counted 100
[2021-06-11] MEDS ORDERED: LORazepam 2 MG/ML INJ IV STA (21:29)
--- NOTE | 2021-06-11 21:33 | XR ---
EXAMINATION TYPE: XR chest 2V DATE OF EXAM: 06/11/2021 8:43 PM COMPARISON:Chest radiographs from 01/28/2021 TECHNIQUE: XR chest 2V Frontal and lateral views of the chest. CLINICAL INDICATION:Male, 85 years old with history of Abdominal pain, concern for perforation; FINDINGS: Lungs/Pleura: Streaky atelectasis within the right lung. There is flattening of the diaphragm with in creased lucency of the lungs. No evidence of pneumothorax, pleural effusion or focal consolidation. Pulmonary vascularity: Unremarkable. Heart/mediastinum: Cardiomediastinal silhouette is enlarged and stable. Musculoskeletal: No acute osseous pathology. Midline sternotomy wires and surgical clips project over the mediastinum. IMPRESSION: 1. Bibasilar atelectasis without evidence for acute cardiopulmonary disease/process. 2. COPD changes.
[2021-06-11] MEDS ORDERED: HYDROmorphone 0.5 MG/0.5 ML SYRINGE IVP PRN (22:03)
[2021-06-11] MEDS ORDERED: MELATONIN 3 MG TABLET PO PRN (22:03)
[2021-06-11] MEDS ORDERED: ACETAMINOPHEN TAB 325 MG TAB PO PRN (22:03)
[2021-06-11] MEDS ORDERED: NALOXONE 0.4 MG/ML 1 ML VIAL IV PRN (22:03)
[2021-06-11] MEDS ORDERED: ONDANSETRON 4 MG/2 ML VIAL IVP PRN (22:03)
[2021-06-11] MEDS ORDERED: LORazepam 2 MG/ML INJ IV PRN (22:03)
[2021-06-11] MEDS ORDERED: SODIUM CHLORIDE 0.9% 1,000 ML IV STA (22:37)
[2021-06-11] MEDS: HYDROmorphone 1 MG/ML 1 ML SYRINGE IVP PRN (23:03)
[2021-06-12] MEDS: ADENOSINE 3 MG/ML 2 ML VIAL IVP STA ×2 (00:06→01:27)
[2021-06-12] MEDS ORDERED: SODIUM CHLORIDE 0.9% 1,000 ML IV ONE (00:12)
[2021-06-12] MEDS ORDERED: HYDROmorphone 0.5 MG/0.5 ML SYRINGE IVP STA (00:15)
[2021-06-12 00:17] LABS: Glucose,Whole Blood 242 mg/dL (75-99)
[2021-06-12] MEDS ORDERED: ADENOSINE 3 MG/ML 2 ML VIAL IVP STA (00:25)
[2021-06-12 00:28] LABS: Appearance,Urine Clear (Clear); Bilirubin,Urine Negative (Negative); Blood,Urine Negative (Negative); Color,Urine Yellow; Glucose,Urine (UA) Negative (Negative); Ketones,Urine Negative (Negative); Leukocyte Esterase,Urine Trace (Negative); Mucus,Urine Rare /hpf; Nitrite,Urine Negative (Negative); PH, Urine 5.5 (5.0-8.0); Protein,Urine 1+ (Negative); RBC,Urine <1 /hpf (0-5); Specific Gravity,Urine 1.014 (1.001-1.035); Squamous Epithelial Cell,Urine <1 /hpf (0-4); Urobilinogen,Urine <2.0 mg/dL (<2.0); WBC,Urine 1 /hpf (0-5)
[2021-06-12] MEDS ORDERED: LEVOFLOXACIN 750MG-D5W PMX 750 MG in DEXTROSE/WATER 1 150ML.BAG IVPB ONE (01:00)
[2021-06-12] MEDS ORDERED: DILTIAZEM 125 MG in SODIUM CHLORIDE 0.9% 100 ML IV SCH (02:00)
[2021-06-12 04:43] LABS: Glucose,Whole Blood 208 mg/dL (75-99)
[2021-06-12] MEDS: HYDROmorphone 1 MG/ML 1 ML SYRINGE IVP PRN ×5 (08:54→23:08)
[2021-06-12] MEDS ORDERED: ENOXAPARIN 40 MG/0.4 ML SYRINGE SQ SCH (09:00)
[2021-06-12] MEDS ORDERED: LACTULOSE 200 GM/300 ML (FROM 1/2 GAL JUG) PO PRN (09:59)
[2021-06-12] MEDS ORDERED: NITROGLYCERIN SL TABS 0.4 MG TAB SUBLINGUAL PRN (09:59)
[2021-06-12] MEDS ORDERED: IPRATROPIUM-ALBUTEROL 3 ML NEB INHALATION PRN (09:59)
[2021-06-12] MEDS ORDERED: LACTULOSE 20 GM/30 ML CUP PO PRN (10:11)
--- NOTE | 2021-06-12 13:34 | P.CNPUL ---
History of Present Illness Consult date: 06/12/21 Chief complaint: Fever, questionable abdominal pain History of present illness: This 85-year-old male patient came into the ED complaining of pain at the level of his chronic sacral wounds. Emergency department stated that he had abdominal pain. Nevertheless, the patient states that he has no pain in his abdomen and all of his pain was in the sacrum area as the patient has been essentially bedridden and has been is back for the past 3 years and he has a chronic ulcer/wound in that area. The patient's is currently at home. He has been various nursing homes in the past and the patient currently is being taken care of by his . His been bedridden since September 2020. He had a fever of 104. For further evaluation and investigation. The patient was slightly tachycardic with a heart rate of 119 and up onto 83. Blood pressure was soft at 100/50 mmHg and at one point he was even lower than that and responded to fluids. The patient was given Dilaudid for pain control, he was given 1 mg of Dilaudid in the ED. apparently his pain was excruciating and he was crying out from his pain. He was given 2 g IV Rocephin. His lactic acid levels were elevated and was as high as 5.4 and dropped down to 3.5. His white cell count is at 8.6 with hemoglobin of 14.6 and a platelet count of 190. Normal correlation profile. BUN is at 20 with a creatinine of 1.2 and the sodium level of 137. Glucose was 208. Troponin was 0.1 cm respectively. COVID 19 testing was negative. Influenza screen was negative. UA was negative. LFTs were essentially within normal limits. Chest x-ray showed no acute abnormalities. CAT scan of the abdomen and pelvis was also completed and showed decubitus skin thickening over the sacrum without evidence of ulceration or erosion. There was also a distal ureter 7 mm lesion without evidence of any hydronephrosis. There was prostate enlargement and anterior abdominal wall ostomy not significantly changed. No headaches and altered mentation at this point in time. This morning, the patient is quite comfortable. He has not spiked any fevers since and his lactic acid level is also improving.. The patient has no nausea. No emesis. No diarrhea. Also, the patient had episode of SVT overnight, received adenosine and the patient is currently on Kenna alemanip at 5 mg an hour along with long-te rm medical condition with Xarelto. Currently back to sinus. Review of Systems Constitutional: Denies any fever or chills, denies any weight loss. Has generalized weakness and the patient has been bedridden since 2020. HEENT: Denies any sore throat, denies any earache, denies any diplopia, denies any dizziness. No hoarseness. Pulmonary: no cough no wheezing no shortness of breath no chest pain. Cardiac: Denies any chest pain at present, no palpitations, no diaphoresis. GI: No abdominal distention. No diarrhea. No nausea. No vomiting. No emesis. The patient has a colostomy which has been essentially functional. The patient has a functional colostomy this point in time. Genitourinary: no hematuria but he does have some difficulty urinating. Endocrine: Denies any heat or cold intolerance, denies any polyuria polyphagia or polydipsia. [place] skeletal: Denies any aches or pains, denies any arthralgia or myalgia. The patient is nonambulatory. Skin: Denies any rashes. The patient has chronic wounds involving the sacral area. Psychiatric: Denies any symptoms of active depression. Hematologic: No versus bleeding. Past Medical History Past Medical History: Atrial Fibrillation, Atrial Flutter, Coronary Artery Dise ase (CAD), Chest Pain / Angina, CVA/TIA, Hyperlipidemia, Hypertension, Myocardial Infarction (IA), Osteoarthritis (OA), Prostate Disorder, Skin Disorder, Thyroid Disorder Additional Past Medical History / Comment(s): Diverticulitis, HX PERFORATION. Gout. Eczema. BPH. Chronic Back Pain D/T PINCHED NERVE, has been bedridden since September. HX VERTIGO. FOOD GETTING STUCK IN THROAT - REMOVAL X3. Last Myocardial Infarction Date:: 08/2015 History of Any Multi-Drug Resistant Organisms: MRSA, Other MDRO, VRE Date of last positivie culture/infection: 01/16/21 MRSA 02/24/19 VRE MDRO Source:: Abdomen-MRSA & VRE Past Surgical History: Bowel Resection, Cardiac Ablation, Coronary Bypass/CABG, Heart Catheterization With Stent, Tonsillectomy Additional Past Surgical History / Comment(s): 02/11/16 Cardiac stent to SVG to diagonal; TOTAL 3 NOW. CABG X3 0n 4/1/16. CYST REMOVED FROM HEART 195; LEFT TESTICLE REMOVED; МАРИНА CATARACTS. EGD W/ REMOVAL FB X3. Ostomy which failed, and redone. Colostomy since September 2018. Issues with sepsis since. 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 Past Anesthesia/Blood Transfusion Reactions: No Reported Reaction Additional Past Anesthesia/Blood Transfusion Reaction / Comment(s): no family hx Date of Last Stent Placement:: 02/11/16 Smoking Status: Never smoker - Past Family History Mother Family Medical History: Unable to Obtain Additional Family Medical History / Comment(s): Mother had a pacemaker. Father History Unknown: Yes Family Medical History: Myocardial Infarction (IA) Medications and Allergies Home Medications Medication Instructions Recorded Confirmed Type Nitroglycerin Sl Tabs [Nitrostat] 0.4 mg SL Q5M PRN 02/10/16 06/11/21 History Aspirin 81 mg PO DAILY@0800 04/09/16 06/11/21 History Acetaminophen Tab [Tylenol] 325 - 650 mg PO Q6H PRN 01/27/19 06/11/21 History Ipratropium-Albuterol Nebulize 3 ml INHALATION RT-Q6H PRN 02/21/19 06/11/21 History [Duoneb 0.5 mg-3 mg/3 ml Soln] Levothyroxine Sodium [Synthroid] 100 mcg PO DAILY@0800 02/21/19 06/11/21 History Tamsulosin HCl [Flomax] 0.4 mg PO HS@199902/21/19 06/11/21 History HYDROcodone/APAP 10-325MG [[place] 1 tab PO TID PRN 04/25/19 06/11/21 History 10-325] Atorvastatin [Lipitor] 20 mg PO HS@199904/16/20 06/11/21 History Baclofen 5 mg PO BID@0800,199904/16/20 06/11/21 History Metoprolol Tartrate [Lopressor] 12.5 mg PO BID@0800,199904/16/20 06/11/21 History amLODIPine [Norvasc] 2.5 mg PO HS@199904/16/20 06/11/21 History ALPRAZolam [Xanax] 0.25 mg PO TID PRN 10/23/20 06/11/21 History Lactulose [Constulose] 10 gm PO BID PRN 10/23/20 06/11/21 History Rivaroxaban [Xarelto] 10 mg PO DAILY@1700 10/23/20 06/11/21 History Ferrous Sulfate [Feosol] 325 mg PO DAILY@0800 01/28/21 06/11/21 History Multivitamins, Thera [Multivitamin 1 tab PO DAILY@0800 01/28/21 06/11/21 History (formulary)] Omeprazole 40 mg PO DAILY@0800 01/28/21 06/11/21 History Cranberry Fruit Extract [Cranberry] 500 mg PO HS@199906/11/21 06/11/21 History Docusate [Colace] 100 mg PO TID@0800,1700,199906/11/21 06/11/21 History Pregabalin [Lyrica] 100 mg PO BID@0800,199906/11/21 06/11/21 History Triamcinolone 0.1% Ointment 1 applic TOPICAL BID 06/11/21 06/11/21 History [Kenalog 0.1% Ointment] Allergies Allergy/AdvReac Type Severity Reaction Status Date / Time No Known Allergies Allergy Verified 06/11/21 18:24 Physical Exam Vitals: Vital Signs Temp Pulse Resp BP Pulse Ox 06/12/21 13:00 75 19 116/52 94 L 06/12/21 12:30 68 11 L 116/52 95 06/12/21 12:00 98.2 F 78 12 103/49 97 06/12/21 11:30 70 14 103/49 96 06/12/21 11:00 72 28 H 123/59 96 06/12/21 10:30 65 14 123/59 97 06/12/21 10:00 79 14 116/58 96 06/12/21 09:30 78 12 116/58 97 06/12/21 09:00 70 14 117/60 97 06/12/21 08:30 72 18 117/60 96 06/12/21 08:19 96 06/12/21 08:00 97.5 F L 77 25 H 109/57 96 06/12/21 07:30 78 20 111/56 95 06/12/21 07:15 74 19 109/63 95 06/12/21 07:00 80 19 107/53 96 06/12/21 06:45 80 22 107/53 96 06/12/21 06:30 76 14 106/52 95 06/12/21 06:15 79 9 L 104/55 95 06/12/21 06:00 82 21 108/60 94 L 06/12/21 05:45 82 20 108/60 93 L 06/12/21 05:30 86 18 99/54 94 L 06/12/21 05:15 85 12 81/52 94 L 06/12/21 05:00 88 20 106/67 94 L 06/12/21 04:45 90 16 106/67 94 L 06/12/21 04:31 98.4 F 97 22 98/55 95 06/12/21 04:30 98 29 H 126/65 06/12/21 04:27 97.6 F 89 18 125/67 06/12/21 04:00 93 20 103/56 96 06/12/21 03:33 93 22 101/56 95 06/12/21 03:00 97.8 F 98 20 95/59 95 06/12/21 02:30 99 F 144 H 22 84/55 06/12/21 02:00 154 H 22 79/59 06/12/21 01:41 154 H 22 80/50 06/12/21 01:36 98 22 92/52 06/12/21 01:00 156 H 22 86/51 06/12/21 00:36 158 H 20 84/49 06/12/21 00:29 99 20 76/50 06/12/21 00:00 163 H 20 68/51 06/11/21 23:40 168 H 20 78/30 98 06/11/21 23:08 99.0 F 85 20 94/54 96 06/11/21 21:47 99.0 F 83 20 100/50 96 06/11/21 19:30 90 18 105/62 98 06/11/21 17:07 104.7 F H 119 H 16 100/54 92 L Intake and Output 06/11/21 06/12/21 06/12/21 22:59 06:59 14:59 Intake Total 225 375 Output Total 30 215 Balance 195 160 Intake: IV 225 375 Sodium Chloride 0.9% 1, 225 375 000 ml @ 75 mls/hr IV . [id number] STA Rx#:[id number] Output: Urine 30 215 Other: Voiding Method Indwelling Catheter Indwelling Catheter Weight 106.594 kg 110 kg Obese, comfortable , awake and alert and following commands and answering questions appropriately. No signs of any respiratory distress. The patient is afebrile. The patient is on 2 L of Oxymizer nasal cannula. Head exam was generally normal. There was no scleral icterus or corneal arcus. Mucous membranes were moist. Neck was supple and without jugular venous distension, thyromegaly, or carotid bruits. Carotids were easily palpable bilaterally. There was no adenopathy. The patient is a tracheostomy surgical wound site is dry clean and intact. No stridors. Lungs were clear to auscultation and percussion, and with normal diaphragmatic excursion. No wheezes or rales were noted. Breath sounds are diminished in lung bases bilaterally. Cardiac exam revealed the PMI to be normally situated and sized. The rhythm was regular and no extrasystoles were noted during several minutes of auscultation. The first and second heart sounds were normal and physiologic splitting of the second heart sound was noted. There were no murmurs, rubs, clicks, or gallops. Abdomen is soft and the patient has a mid abdominal incision which is dry clean and intact. There is with superficial skin erosion and anterior abdominal wall laterally to the right with some superficial wounds that are not infected. There is also a colostomy that is functional at this point in time. There is another area where stool is coming from the anterior abdominal wall which probably is a enterocutaneous facia No abdominal distention be bowel sounds are hypoactive at this point in time he is no direct tenderness. No rebound tenderness. No guarding. Active site is dry clean and intact at this point in time. Bowel sounds are hypoactive/absent. Examination of the extremities revealed easily palpable radial, femoral and pedal pulses. There was no cyanosis, clubbing or edema. Examination of the skin . 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 Neurologically the patient is being given a sedation holiday Results - Laboratory Findings CBC and BMP: 06/11/21 18:20 06/11/21 18:20 PT/INR, D-dimer PT 11.4 sec (9.0-12.0) 06/11/21 18:20 INR 1.1 (<1.2) 06/11/21 18:20 Abnormal lab findings: Abnormal Labs 06/11/21 06/11/21 06/11/21 18:20 18:20 18:20 RDW 16.2 H Neutrophils # (Manual) 8.40 H Lymphocytes # (Manual) 0.09 L APTT 21.2 L Carbon Dioxide 19 L Glucose 221 H POC Glucose (mg/dL) Plasma Lactic Acid Alexey AST 74 H Alkaline Phosphatase 161 H Troponin I C-Reactive Protein 1.5 H Urine Protein Ur Leukocyte Esterase Urine Mucus 06/11/21 06/11/21 06/11/21 18:20 18:20 21:20 RDW Neutrophils # (Manual) Lymphocytes # (Manual) APTT Carbon Dioxide Glucose POC Glucose (mg/dL) Plasma Lactic Acid Alexey 5.4 H* AST Alkaline Phosphatase Troponin I 0.143 H* 0.191 H* C-Reactive Protein Urine Protein Ur Leukocyte Esterase Urine Mucus 06/11/21 06/11/21 06/12/21 21:20 23:59 00:06 RDW Neutrophils # (Manual) Lymphocytes # (Manual) APTT Carbon Dioxide Glucose POC Glucose (mg/dL) 242 H Plasma Lactic Acid Alexey 5.2 H* AST Alkaline Phosphatase Troponin I C-Reactive Protein Urine Protein 1+ H Ur Leukocyte Esterase Trace H Urine Mucus Rare H 06/12/21 06/12/21 06/12/21 00:30 00:30 04:40 RDW Neutrophils # (Manual) Lymphocytes # (Manual) APTT Carbon Dioxide Glucose POC Glucose (mg/dL) 208 H Plasma Lactic Acid Alexey 4.1 H* AST Alkaline Phosphatase Troponin I 0.172 H* C-Reactive Protein Urine Protein Ur Leukocyte Esterase Urine Mucus 06/12/21 05:30 RDW Neutrophils # (Manual) Lymphocytes # (Manual) APTT Carbon Dioxide Glucose POC Glucose (mg/dL) Plasma Lactic Acid Alexey 3.5 H* AST Alkaline Phosphatase Troponin I C-Reactive Protein Urine Protein Ur Leukocyte Esterase Urine Mucus Assessment and Plan Plan: 1 acute febrile illness, hypotension and pain and along the sacral wound area. Consent underlying infection. The patient has had evaluation cultures of the wound clinic and a previous cultures from 01/16/2021 and showed Proteus and pseudomonas aeruginosa. In the ED, the patient was given IV fluids and current ly is afebrile hemodynamically stable and lactic acid also improving. The patient was given IV Rocephin. The patient is currently afebrile 2 acute lactic acidosis, improving 3 hypotension, recovered, received a total of 2 L in the ED and currently on lovastatin rate of 75 mL an hour. 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 3 history of abdominal sepsis with Pseudomonas and E. 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 Currently back to sinus. Plan Obtain wound cultures Obtain blood cultures Check pro calcitonin level Put the patient IV cefepime Monitor fever pattern Resume all medications Consult: wound services May transfer out of the intensive care unit
[2021-06-12] MEDS: CEFEPIME 2 GM in SODIUM CHLORIDE 0.9% 100 ML IVPB SCH ×2 (15:12→22:05)
[2021-06-12] MEDS: HYDROcodone/APAP 10-325MG 1 EACH TAB PO PRN ×2 (15:12→23:08)
--- NOTE | 2021-06-12 16:21 | ED ---
Medical Decision Making - Medical Decision Making As this patient was to go to his hospital bed, nursing staff noted that his heart rate had gone into the 160s. They informed me as I was on duty now. The patient then moved to the trauma resuscitation bay. After my assessment I feel the patient is having sepsis and requires further fluid resuscitation and medication. I added additional antibiotic coverage. I added additional IV fluids. The patient was given adenosine for the heart rate which did briefly revert him to sinus rhythm however he did recurrently after SVT. He was given additional fluids and another round of adenosine which again briefly slowed him it required 3 rounds of fluid basically and then Cardizem to slow the heart rate. - Lab Data Result diagrams: 06/11/21 18:20 06/11/21 18:20 Lab Results 06/11/21 06/11/21 06/11/21 Range/Units 18:20 18:20 18:20 WBC 8.6 (3.8-10.6) k/uL RBC 5.02 (4.30-5.90) m/uL Hgb 14.9 (13.0-17.5) gm/dL Hct 44.8 (39.0-53.0) % MCV 89.3 (80.0-100.0) fL MCH 29.7 (25.0-35.0) pg MCHC 33.2 (31.0-37.0) g/dL RDW 16.2 H (11.5-15.5) % Plt Count 190 (150-450) k/uL MPV 7.9 Neutrophils % (Manual) 89 % Band Neuts % (Manual) 9 % Lymphocytes % (Manual) 1 % Eosinophils % (Manual) 1 % Neutrophils # (Manual) 8.40 H (1.3-7.7) k/uL Lymphocytes # (Manual) 0.09 L (1.0-4.8) k/uL Eosinophils # (Manual) 0.09 (0-0.7) k/uL Nucleated RBCs 0 (0-0) /100 WBC Manual Slide Review Performed Anisocytosis Slight ESR 10 (0-15) mm/hr PT 11.4 (9.0-12.0) sec INR 1.1 (<1.2) APTT 21.2 L (22.0-30.0) sec Sodium 137 (137-145) mmol/L Potassium 4.6 (3.5-5.1) mmol/L Chloride 101 (98-107) mmol/L Carbon Dioxide 19 L (22-30) mmol/L Anion Gap 17 mmol/L BUN 19 (9-20) mg/dL Creatinine 1.23 (0.66-1.25) mg/dL Est GFR (CKD-EPI)AfAm 62 (>60 ml/min/1.73 sqM) Est GFR (CKD-EPI)NonAf 54 (>60 ml/min/1.73 sqM) Glucose 221 H (74-99) mg/dL Lactic Ac Sepsis Rflx Plasma Lactic Acid Alexey (0.7-2.0) mmol/L Calcium 9.3 (8.4-10.2) mg/dL Total Bilirubin 0.7 (0.2-1.3) mg/dL AST 74 H (17-59) U/L ALT 35 (4-49) U/L Alkaline Phosphatase 161 H (38-126) U/L Troponin I (0.000-0.034) ng/mL C-Reactive Protein 1.5 H (<1.0) mg/dL Total Protein 8.0 (6.3-8.2) g/dL Albumin 4.2 (3.5-5.0) g/dL Amylase 42 (30-110) U/L Lipase 83 (23-300) U/L Coronavirus (PCR) (Not Detectd) Influenza Type A RNA (Not Detectd) Influenza Type B (PCR) (Not Detectd) 06/11/21 06/11/21 06/11/21 Range/Units 18:20 18:20 18:50 WBC (3.8-10.6) k/uL RBC (4.30-5.90) m/uL Hgb (13.0-17.5) gm/dL Hct (39.0-53.0) % MCV (80.0-100.0) fL MCH (25.0-35.0) pg MCHC (31.0-37.0) g/dL RDW (11.5-15.5) % Plt Count (150-450) k/uL MPV Neutrophils % (Manual) % Band Neuts % (Manual) % Lymphocytes % (Manual) % Eosinophils % (Manual) % Neutrophils # (Manual) (1.3-7.7) k/uL Lymphocytes # (Manual) (1.0-4.8) k/uL Eosinophils # (Manual) (0-0.7) k/uL Nucleated RBCs (0-0) /100 WBC Manual Slide Review Anisocytosis ESR (0-15) mm/hr PT (9.0-12.0) sec INR (<1.2) APTT (22.0-30.0) sec Sodium (137-145) mmol/L Potassium (3.5-5.1) mmol/L Chloride (98-107) mmol/L Carbon Dioxide (22-30) mmol/L Anion Gap mmol/L BUN (9-20) mg/dL Creatinine (0.66-1.25) mg/dL Est GFR (CKD-EPI)AfAm (>60 ml/min/1.73 sqM) Est GFR (CKD-EPI)NonAf (>60 ml/min/1.73 sqM) Glucose (74-99) mg/dL Lactic Ac Sepsis Rflx Y Plasma Lactic Acid Alexey 5.4 H* (0.7-2.0) mmol/L Calcium (8.4-10.2) mg/dL Total Bilirubin (0.2-1.3) mg/dL AST (17-59) U/L ALT (4-49) U/L Alkaline Phosphatase (38-126) U/L Troponin I 0.143 H* (0.000-0.034) ng/mL C-Reactive Protein (<1.0) mg/dL Total Protein (6.3-8.2) g/dL Albumin (3.5-5.0) g/dL Amylase (30-110) U/L Lipase (23-300) U/L Coronavirus (PCR) (Not Detectd) Influenza Type A RNA (Not Detectd) Influenza Type B (PCR) (Not Detectd) 06/11/21 06/11/21 06/11/21 Range/Units 19:18 19:18 21:20 WBC (3.8-10.6) k/uL RBC (4.30-5.90) m/uL Hgb (13.0-17.5) gm/dL Hct (39.0-53.0) % MCV (80.0-100.0) fL MCH (25.0-35.0) pg MCHC (31.0-37.0) g/dL RDW (11.5-15.5) % Plt Count (150-450) k/uL MPV Neutrophils % (Manual) % Band Neuts % (Manual) % Lymphocytes % (Manual) % Eosinophils % (Manual) % Neutrophils # (Manual) (1.3-7.7) k/uL Lymphocytes # (Manual) (1.0-4.8) k/uL Eosinophils # (Manual) (0-0.7) k/uL Nucleated RBCs (0-0) /100 WBC Manual Slide Review Anisocytosis ESR (0-15) mm/hr PT (9.0-12.0) sec INR (<1.2) APTT (22.0-30.0) sec Sodium (137-145) mmol/L Potassium (3.5-5.1) mmol/L Chloride (98-107) mmol/L Carbon Dioxide (22-30) mmol/L Anion Gap mmol/L BUN (9-20) mg/dL Creatinine (0.66-1.25) mg/dL Est GFR (CKD-EPI)AfAm (>60 ml/min/1.73 sqM) Est GFR (CKD-EPI)NonAf (>60 ml/min/1.73 sqM) Glucose (74-99) mg/dL Lactic Ac Sepsis Rflx Plasma Lactic Acid Alexey (0.7-2.0) mmol/L Calcium (8.4-10.2) mg/dL Total Bilirubin (0.2-1.3) mg/dL AST (17-59) U/L ALT (4-49) U/L Alkaline Phosphatase (38-126) U/L Troponin I 0.191 H* (0.000-0.034) ng/mL C-Reactive Protein (<1.0) mg/dL Total Protein (6.3-8.2) g/dL Albumin (3.5-5.0) g/dL Amylase (30-110) U/L Lipase (23-300) U/L Coronavirus (PCR) Not Detected (Not Detectd) Influenza Type A RNA Not Detected (Not Detectd) Influenza Type B (PCR) Not Detected (Not Detectd) 06/11/21 Range/Units 21:20 WBC (3.8-10.6) k/uL RBC (4.30-5.90) m/uL Hgb (13.0-17.5) gm/dL Hct (39.0-53.0) % MCV (80.0-100.0) fL MCH (25.0-35.0) pg MCHC (31.0-37.0) g/dL RDW (11.5-15.5) % Plt Count (150-450) k/uL MPV Neutrophils % (Manual) % Band Neuts % (Manual) % Lymphocytes % (Manual) % Eosinophils % (Manual) % Neutrophils # (Manual) (1.3-7.7) k/uL Lymphocytes # (Manual) (1.0-4.8) k/uL Eosinophils # (Manual) (0-0.7) k/uL Nucleated RBCs (0-0) /100 WBC Manual Slide Review Anisocytosis ESR (0-15) mm/hr PT (9.0-12.0) sec INR (<1.2) APTT (22.0-30.0) sec Sodium (137-145) mmol/L Potassium (3.5-5.1) mmol/L Chloride (98-107) mmol/L Carbon Dioxide (22-30) mmol/L Anion Gap mmol/L BUN (9-20) mg/dL Creatinine (0.66-1.25) mg/dL Est GFR (CKD-EPI)AfAm (>60 ml/min/1.73 sqM) Est GFR (CKD-EPI)NonAf (>60 ml/min/1.73 sqM) Glucose (74-99) mg/dL Lactic Ac Sepsis Rflx Plasma Lactic Acid Alexey 5.2 H* (0.7-2.0) mmol/L Calcium (8.4-10.2) mg/dL Total Bilirubin (0.2-1.3) mg/dL AST (17-59) U/L ALT (4-49) U/L Alkaline Phosphatase (38-126) U/L Troponin I (0.000-0.034) ng/mL C-Reactive Protein (<1.0) mg/dL Total Protein (6.3-8.2) g/dL Albumin (3.5-5.0) g/dL Amylase (30-110) U/L Lipase (23-300) U/L Coronavirus (PCR) (Not Detectd) Influenza Type A RNA (Not Detectd) Influenza Type B (PCR) (Not Detectd) Disposition Clinical Impression: Sepsis due to other etiology Disposition: ADMITTED IP TO THIS HOSP Procedures - Sepsis Sepsis Focused Exam #1 Sepsis Focused Exam Date: 06/12/21 Sepsis Focused Exam Time: 03:00 Sepsis Focused Exam Complete: Yes Vital Signs & RN Notes Reviewed: Yes Capillary Refill: < 2 Seconds: Fingers Peripheral Pulses: Normal: Radial (R) Skin Color: Flushed Respiratory Exam: normal lung sounds Cardiovascular Exam: normal rhythm, tachycardia
[2021-06-12] MEDS: DOCUSATE 100 MG CAP PO SCH ×2 (17:06→20:25)
[2021-06-12] MEDS: ALPRAZolam 0.25 MG TAB PO PRN (17:57)
[2021-06-12] MEDS: RIVAROXABAN 10 MG TAB PO SCH (17:58)
[2021-06-12] MEDS ORDERED: NON FORMULARY DRUG (Cranberry Fruit Extract [Cranberry] 500 MG Tablet) PO SCH (20:00)
[2021-06-12] MEDS: PREGABALIN 100 MG CAP PO SCH (20:24)
[2021-06-12] MEDS: BACLOFEN 10 MG TAB PO SCH (20:24)
[2021-06-12] MEDS: METOPROLOL TARTRATE 12.5 MG TAB PO SCH (20:25)
[2021-06-12] MEDS: TAMSULOSIN 0.4 MG CAP.ER.24H PO SCH (20:25)
[2021-06-12] MEDS: amLODIPine 2.5 MG TAB PO SCH (20:26)
[2021-06-12] MEDS: ATORVASTATIN 20 MG TAB PO SCH (20:27)
[2021-06-13] MEDS ORDERED: DILTIAZEM 125 MG in SODIUM CHLORIDE 0.9% 100 ML IV SCH (02:15)
[2021-06-13] MEDS ORDERED: SODIUM CHLORIDE 0.9% 1,000 ML IV SCH (06:15)
[2021-06-13] MEDS: HYDROcodone/APAP 10-325MG 1 EACH TAB PO PRN ×2 (06:30→17:08)
[2021-06-13 08:35] LABS: Anisocytosis Slight; Basophils % (A) 0 %; Eosinophils # (A) 0.1 k/uL (0-0.7); Eosinophils % (A) 1 %; HCT 37.6 % (39.0-53.0); Hypochromasia Slight; Lymphocytes # (A) 0.5 k/uL (1.0-4.8); Lymphocytes % (A) 6 %; MCH 29.2 pg (25.0-35.0); MCHC 31.4 g/dL (31.0-37.0); MCV 93.1 fL (80.0-100.0); Mean Platelet Volume 8.3; Monocytes # (A) 0.5 k/uL (0-1.0); Monocytes % (A) 6 %; Neutrophils # (A) 6.7 k/uL (1.3-7.7); Neutrophils % (A) 85 %; Platelet Count 111 k/uL (150-450); RBC 4.04 m/uL (4.30-5.90); RDW 16.1 % (11.5-15.5); WBC 7.9 k/uL (3.8-10.6)
[2021-06-13 08:51] LABS: HGB 11.8 gm/dL (13.0-17.5)
[2021-06-13] MEDS: ASPIRIN 81 MG PO SCH (09:00)
[2021-06-13] MEDS: METOPROLOL TARTRATE 12.5 MG TAB PO SCH (09:00)
[2021-06-13] MEDS: PREGABALIN 100 MG CAP PO SCH ×2 (09:00→21:20)
[2021-06-13] MEDS: FERROUS SULFATE 325 MG TAB PO SCH (09:00)
[2021-06-13] MEDS: ALPRAZolam 0.25 MG TAB PO PRN (09:00)
[2021-06-13] MEDS: LEVOTHYROXINE 100 MCG TAB PO SCH (09:00)
[2021-06-13] MEDS: MULTIVITAMINS, THERA 1 EACH TAB PO SCH (09:00)
[2021-06-13] MEDS: BACLOFEN 10 MG TAB PO SCH ×2 (09:00→21:19)
[2021-06-13] MEDS: DOCUSATE 100 MG CAP PO SCH ×3 (09:00→21:19)
[2021-06-13] MEDS: CEFEPIME 2 GM in SODIUM CHLORIDE 0.9% 100 ML IVPB SCH ×2 (09:01→21:21)
[2021-06-13] MEDS: HYDROmorphone 1 MG/ML 1 ML SYRINGE IVP PRN ×2 (09:10→21:18)
--- NOTE | 2021-06-13 11:21 | P.HPIM ---
History of Present Illness 85-year-old pleasant male lives at home mostly bedbound came in because of fever and chills. Patient was admitted to along the primary care physician because of which patient was not seen by internal medicine service under today. Patient's sepsis is believed to be secondary to decubitus ulcer which is stage III appear to be infected wound care is following the patient infectious disease following the patient patient is presently on cefepime. The patient has significant of bilateral lower leg extremity muscle atrophy with some swelling in the bilateral lower extremities. Patient was hypotensive was receiving IV fluids which are discontinued. Patient has Pseudomonas and Proteus mirabilis in January 2021 in the wounds. Patient's immobility A1c is 14.6 and blood sugars are still elevated and starting him on long-acting insulin along with his sliding scale he is getting right now. Patient is presently not in pain. Pain is pretty much well controlled at this time. On Mittie as well patient is tolerating these medications because of which I'm not changing his medications. Patient was in a lot of pain when he came in. The patient is also on lactulose for constipation patient has 2 colostomies in which he was having some stool. REVIEW OF SYSTEMS: CONSTITUTIONAL: no malaise, no fatigue. HEENT: No recent visual problems or hearing problems. Denied any sore throat. CARDIOVASCULAR: No chest pain, orthopnea, PND, no palpitations, no syncope. PULMONARY: No shortness of breath, no cough, no hemoptysis. GASTROINTESTINAL: No diarrhea, no nausea, no vomiting, no abdominal pain. NEUROLOGICAL: No headaches, no weakness, no numbness. HEMATOLOGICAL: Denies any bleeding or petechiae. GENITOURINARY: Denies any burning micturition, frequency, or urgency. MUSCULOSKELETAL/RHEUMATOLOGICAL: Denies any joint pain, swelling, or any muscle pain. ENDOCRINE: Denies any polyuria or polydipsia. The rest of the 14-point review of systems is negative. PHYSICAL EXAMINATION: GENERAL: The patient is alert and oriented x3, not in any acute distress, obese HEENT: Pupils are round and equally reacting to light. EOMI. No scleral icterus. No conjunctival pallor. Normocephalic, atraumatic. No pharyngeal erythema. No thyromegaly. CARDIOVASCULAR: S1 and S2 present. No murmurs, rubs, or gallops. Irregularly irregular rhythm PULMONARY: Chest is clear to auscultation, no wheezing or crackles. ABDOMEN: Soft, nontender, nondistended, normoactive bowel sounds. No palpable organomegaly. And has a [address] MUSCULOSKELETAL: No joint swelling or deformity. EXTREMITIES: No cyanosis, clubbing, he does have a 1-2+ pitting pedal edema NEUROLOGICAL: Gross neurological examination did not reveal any focal deficits. SKIN: No rashes. Assessment and plan -Sepsis probably secondary to sacral icterus ulcers: Patient won't cultures are still pending (depending on the previous cultures patient is presently on cefepime wound care, infectious disease following the patient. -Lactic is doses admitted to sepsis which improved -Hypervolemic hyponatremia patient does have some pedal edema as well as dyspnea with IV fluids -Type 2 diabetes mellitus uncontrolled elevated blood sugars patient's long-act ing insulin is being admitted at this time -Patient has colostomies in place. Next and heparin coronary artery disease -Benign prostatic hypertrophy -History of mechanical intubation presently has a tracheostomy site is clean -Hypertension which resolved at this time -Acute renal failure resolved and this is secondary to prerenal azotemia and sepsis -Hypertension -Hyperlipidemia -Obesity -Deconditioning and chronic debility mostly bedbound -Atrial fibrillation chronic presently rate controlled and is on anticoagulation with Xarelto DVT prophylaxis: On anticoagulation as mentioned above Past Medical History Past Medical History: Atrial Fibrillation, Atrial Flutter, Coronary Artery Disease (CAD), Chest Pain / Angina, CVA/TIA, Hyperlipidemia, Hypertension, Myocardial Infarction (CA), Osteoarthritis (OA), Prostate Disorder, Skin Disorder, Thyroid Disorder Additional Past Medical History / Comment(s): Diverticulitis, HX PERFORATION. Gout. Eczema. BPH. Chronic Back Pain D/T PINCHED NERVE, has been bedridden since September. HX VERTIGO. FOOD GETTING STUCK IN THROAT - REMOVAL X3. Last Myocardial Infarction Date:: 08/2015 History of Any Multi-Drug Resistant Organisms: MRSA, Other MDRO, VRE Date of last positivie culture/infection: 01/16/21 MRSA 02/24/19 VRE MDRO Source:: Abdomen-MRSA & VRE Past Surgical History: Bowel Resection, Cardiac Ablation, Coronary Bypass/CABG, Heart Catheterization With Stent, Tonsillectomy Additional Past Surgical History / Comment(s): 02/11/16 Cardiac stent to SVG to diagonal; TOTAL 3 NOW. CABG X3 0n 07/11/15. CYST REMOVED FROM HEART 195; LEFT TESTICLE REMOVED; МАРИНА [employer]S. EGD W/ REMOVAL FB X3. Ostomy which failed, and redone. Colostomy since September 2018. Issues with sepsis since. At [facility] family was told Rene had a VAP which was drug resistant, unsure of type, November 2018. Past Anesthesia/Blood Transfusion Reactions: No Reported Reaction Additional Past Anesthesia/Blood Transfusion Reaction / Comment(s): no family hx Date of Last Stent Placement:: 02/11/16 Smoking Status: Never smoker - Past Family History Mother Family Medical History: Unable to Obtain Additional Family Medical History / Comment(s): Mother had a pacemaker. Father History Unknown: Yes Family Medical History: Myocardial Infarction (CA) Medications and Allergies Home Medications Medication Instructions Recorded Confirmed Type Nitroglycerin Sl Tabs [Nitrostat] 0.4 mg SL Q5M PRN 02/10/16 06/11/21 History Aspirin 81 mg PO DAILY@0800 04/09/16 06/11/21 History Acetaminophen Tab [Tylenol] 325 - 650 mg PO Q6H PRN 01/27/19 06/11/21 History Ipratropium-Albuterol Nebulize 3 ml INHALATION RT-Q6H PRN 02/21/19 06/11/21 History [Duoneb 0.5 mg-3 mg/3 ml Soln] Levothyroxine Sodium [Synthroid] 100 mcg PO DAILY@0800 02/21/19 06/11/21 History Tamsulosin HCl [Flomax] 0.4 mg PO HS@199902/21/19 06/11/21 History HYDROcodone/APAP 10-325MG [Mittie 1 tab PO TID PRN 04/25/19 06/11/21 History 10-325] Atorvastatin [Lipitor] 20 mg PO HS@199904/16/20 06/11/21 History Baclofen 5 mg PO BID@0800,199904/16/20 06/11/21 History Metoprolol Tartrate [Lopressor] 12.5 mg PO BID@0800,199904/16/20 06/11/21 History amLODIPine [Norvasc] 2.5 mg PO HS@199904/16/20 06/11/21 History ALPRAZolam [Xanax] 0.25 mg PO TID PRN 10/23/20 06/11/21 History Lactulose [Constulose] 10 gm PO BID PRN 10/23/20 06/11/21 History Rivaroxaban [Xarelto] 10 mg PO DAILY@1700 10/23/20 06/11/21 History Ferrous Sulfate [Feosol] 325 mg PO DAILY@0800 01/28/21 06/11/21 History Multivitamins, Thera [Multivitamin 1 tab PO DAILY@0800 01/28/21 06/11/21 History (formulary)] Omeprazole 40 mg PO DAILY@0800 01/28/21 06/11/21 History Cranberry Fruit Extract [Cranberry] 500 mg PO HS@199906/11/21 06/11/21 History Docusate [Colace] 100 mg PO TID@0800,1700,199906/11/21 06/11/21 History Pregabalin [Lyrica] 100 mg PO BID@0800,199906/11/21 06/11/21 History Triamcinolone 0.1% Ointment 1 applic TOPICAL BID 06/11/21 06/11/21 History [Kenalog 0.1% Ointment] Allergies Allergy/AdvReac Type Severity Reaction Status Date / Time No Known Allergies Allergy Verified 06/11/21 18:24 Physical Exam Vitals: Vital Signs Temp Pulse Resp BP Pulse Ox 06/13/21 10:00 77 17 129/63 93 L 06/13/21 09:00 74 21 129/63 92 L 06/13/21 08:00 98.1 F 80 20 126/54 92 L 06/13/21 07:00 81 12 128/58 91 L 06/13/21 06:00 79 12 128/58 95 06/13/21 05:00 72 19 101/71 95 06/13/21 04:00 99.7 F H 76 15 127/63 95 06/13/21 03:00 70 18 124/55 57 L 06/13/21 02:00 65 12 112/44 95 06/13/21 01:00 63 12 120/65 93 L 06/13/21 00:02 70 12 95 06/13/21 00:00 99.6 F 71 12 131/63 95 06/12/21 23:00 68 21 127/66 89 L 06/12/21 22:00 73 22 152/73 90 L 06/12/21 21:00 81 8 L 149/63 92 L 06/12/21 20:00 98.5 F 76 17 132/60 92 L 06/12/21 19:00 77 27 H 116/47 92 L 06/12/21 18:00 81 12 139/58 92 L 06/12/21 17:00 80 24 121/56 93 L 06/12/21 16:00 98.2 F 70 27 H 116/50 93 L 06/12/21 15:30 68 17 116/50 94 L 06/12/21 15:00 67 25 H 122/65 94 L 06/12/21 14:30 70 20 122/65 94 L 06/12/21 14:00 73 15 115/51 95 06/12/21 13:30 72 14 115/51 94 L 06/12/21 13:00 75 19 116/52 94 L 06/12/21 12:30 68 11 L 116/52 95 06/12/21 12:00 98.2 F 78 12 103/49 97 06/12/21 11:30 70 14 103/49 96 Intake and Output 06/12/21 06/13/21 06/13/21 22:59 06:59 14:59 Intake Total 1100 850 225 Output Total 610 390 235 Balance 490 460 -10 Intake: IV 700 600 225 Cefepime 2 gm In Sodium 100 Chloride 0.9% 100 ml @ 25 mls/hr IVPB Q12HR [facility] Rx #:[id number] Sodium Chloride 0.9% 1, 600 600 225 000 ml @ 75 mls/hr IV . [id number] [facility] Rx#:[id number] Oral 400 250 Output: Urine 610 390 235 Other: Voiding Method Indwelling Catheter Indwelling Catheter Indwelling Catheter Weight 115.6 kg Results CBC & Chem 7: 06/13/21 08:05 06/13/21 08:05 Labs: Abnormal Lab Results - Last 24 Hours (Table) 06/12/21 06/13/21 06/13/21 Range/Units 08:13 08:05 08:05 RBC 4.04 L (4.30-5.90) m/uL Hgb 11.8 L D (13.0-17.5) gm/dL Hct 37.6 L (39.0-53.0) % RDW 16.1 H (11.5-15.5) % Plt Count 111 L (150-450) k/uL Lymphocytes # 0.5 L (1.0-4.8) k/uL Sodium 133 L (137-145) mmol/L Glucose 225 H (74-99) mg/dL Calcium 8.0 L (8.4-10.2) mg/dL Procalcitonin 67.60 H (0.02-0.09) ng/mL Microbiology - Last 24 Hours (Table) 06/12/21 13:00 Gram Stain - Preliminary Buttock Wound Culture - Preliminary 06/11/21 21:20 Blood Culture - Preliminary Blood No Growth after 24 hours
[2021-06-13 12:34] LABS: Glucose,Whole Blood 208 mg/dL (75-99)
[2021-06-13] MEDS: INSULIN ASPART (NovoLOG) 100 UNIT/ML VIAL SQ SCH ×3 (12:40→21:18)
--- NOTE | 2021-06-13 13:34 | P.PN ---
Subjective Progress Note Date: 06/13/21 This 85-year-old male patient came into the ED complaining of pain at the level of his chronic sacral wounds. Emergency department stated that he had abdominal pain. Nevertheless, the patient states that he has no pain in his abdomen and all of his pain was in the sacrum area as the patient has been essentially bedridden and has been is back for the past 3 years and he has a chronic ulcer/wound in that area. The patient's is currently at home. He has been various nursing homes in the past and the patient currently is being taken care of by his . His been bedridden since September 2020. He had a fever of 104. For further evaluation and investigation. The patient was slightly tachycardic with a heart rate of 119 and up onto 83. Blood pressure was soft at 100/50 mmHg and at one point he was even lower than that and responded to fluids. The patient was given Dilaudid for pain control, he was given 1 mg of Dilaudid in the ED. apparently his pain was excruciating and he was crying out from his pain. He was given 2 g IV Rocephin. His lactic acid levels were elevated and was as high as 5.4 and dropped down to 3.5. His white cell count is at 8.6 with hemoglobin of 14.6 and a platelet count of 190. Normal correlation profile. BUN is at 20 with a creatinine of 1.2 and the sodium level of 137. Glucose was 208. Troponin was 0.1 cm respectively. COVID 19 testing was negative. I nfluenza screen was negative. UA was negative. LFTs were essentially within normal limits. Chest x-ray showed no acute abnormalities. CAT scan of the abdomen and pelvis was also completed and showed decubitus skin thickening over the sacrum without evidence of ulceration or erosion. There was also a distal ureter 7 mm lesion without evidence of any hydronephrosis. There was prostate enlargement and anterior abdominal wall ostomy not significantly changed. No headaches and altered mentation at this point in time. This morning, the patient is quite comfortable. He has not spiked any fevers since and his lactic acid level is also improving.. The patient has no nausea. No emesis. No diarrhea. Also, the patient had episode of SVT overnight, received adenosine and the patient is currently on Cardizem drip at 5 mg an hour along with long- term medical condition with Xarelto. Currently back to sinus. On today's evaluation of 06/13/2021, I'm seeing the patient for a follow-up. Cheryl chamorro is doing well. The patient is hemodynamically stable. Cardiac rhythm is sinus. The patient has taken a Cardizem drip at 5 mg an hour throughout the night yesterday and this will be weaned off and discontinued today. Cardiac rhythm is sinus. He is afebrile. He is hemodynamically stable. His communicating. No respiratory distress. The patient remains on IV cefepime. The patient's white cell count of 7.9 with a hemoglobin of 11.8. Sodium is at 133, BUN is at 60 with a creatinine of 1.04. Glucose is at 208. The patient had a lactic acid level which is down to 3.5. The patient's pro calcitonin level was at 67. Based on previous cultures, I put the patient IV cefepime The patient has had previous history of Proteus and Pseudomonas in the wound cultures. At the same time, there were prior cultures that indicating Enterococcus faecalis and MRSA. One services have been consulted. The patient is doing well. His communicating. His bedridden as mentioned. All of his out patient medications and resume. No altered mentation. He is communicating effectively. Hemoglobin is stable at 11.8 and the patient continues to be on Xarelto. Objective - Vital Signs Vital signs: Vital Signs Temp 97.7 F 06/13/21 12:00 Pulse 61 06/13/21 12:00 Resp 19 06/13/21 12:00 BP 102/51 06/13/21 12:00 Pulse Ox 97 06/13/21 12:00 Intake & Output 06/12/21 06/13/21 06/13/21 18:59 06:59 18:59 Intake Total 1325 1150 545 Output Total 595 700 560 Balance 730 450 -15 Weight 110 kg 115.6 kg Intake: IV 925 900 375 Cefepime 2 gm In Sodium 100 Chloride 0.9% 100 ml @ 25 mls/hr IVPB Q12HR [facility] Rx #:[id number] Sodium Chloride 0.9% 1, 825 900 375 000 ml @ 75 mls/hr IV . [id number] [facility] Rx#:[id number] Intake, IV Titration 20 Amount Sodium Chloride 0.9% 1, 20 000 ml @ 75 mls/hr IV . [id number] [facility] Rx#:[id number] Oral 400 250 150 Output: Urine 595 700 560 Other: Voiding Method Indwelling Catheter Indwelling Catheter Indwelling Catheter ABP, PAP, CO, CI - Last Documented Arterial Blood Pressure 120/65 - Exam Obese, comfortable , awake and alert and following commands and answering questions appropriately. No signs of any respiratory distress. The patient is afebrile. The patient is on 2 L of O2 nasal cannula. Head exam was generally normal. There was no scleral icterus or corneal arcus. Mucous membranes were moist. Neck was supple and without jugular venous distension, thyromegaly, or carotid bruits. Carotids were easily palpable bilaterally. There was no adenopathy. The patient is a tracheostomy surgical wound site is dry clean and intact. No stridors. Lungs were clear to auscultation and percussion, and with normal diaphragmatic excursion. No wheezes or rales were noted. Breath sounds are diminished in lung bases bilaterally. Cardiac exam revealed the PMI to be normally situated and sized. The rhythm was regular and no extrasystoles were noted during several minutes of auscultation. The first and second heart sounds were normal and physiologic splitting of the second heart sound was noted. There were no murmurs, rubs, clicks, or gallops. Abdomen is soft and the patient has a mid abdominal incision which is dry clean and intact. There is with superficial skin erosion and anterior abdominal wall laterally to the right with some superficial wounds that are not infected. There is also a colostomy that is functional at this point in time. There is another area where stool is coming from the anterior abdominal wall which proba elver is a enterocutaneous facia No abdominal distention be bowel sounds are hypoactive at this point in time he is no direct tenderness. No rebound tenderness. No guarding. Active site is dry clean and intact at this point in time. Bowel sounds are hypoactive/absent. Examination of the extremities revealed easily palpable radial, femoral and pedal pulses. There was no cyanosis, clubbing or edema. Examination of the skin . Patient continues to have a stage Iii pressure ulcer in the sacral area. The same time, the patient is an area where there is deep tissue injury on the left buttocks. No purulent drainage noted at this point in time. Neurologically, the patient is awake and alert and the patient does not have any focal neurological deficit. Cranial nerves are essentially intact. - Labs CBC & Chem 7: 06/13/21 08:05 06/13/21 08:05 Labs: Abnormal Lab Results - Last 24 Hours (Table) 06/12/21 06/13/21 06/13/21 Range/Units 08:13 08:05 08:05 RBC 4.04 L (4.30-5.90) m/uL Hgb 11.8 L D (13.0-17.5) gm/dL Hct 37.6 L (39.0-53.0) % RDW 16.1 H (11.5-15.5) % Plt Count 111 L (150-450) k/uL Lymphocytes # 0.5 L (1.0-4.8) k/uL Sodium 133 L (137-145) mmol/L Glucose 225 H (74-99) mg/dL POC Glucose (mg/dL) (75-99) mg/dL Calcium 8.0 L (8.4-10.2) mg/dL Procalcitonin 67.60 H (0.02-0.09) ng/mL 06/13/21 Range/Units 12:33 RBC (4.30-5.90) m/uL Hgb (13.0-17.5) gm/dL Hct (39.0-53.0) % RDW (11.5-15.5) % Plt Count (150-450) k/uL Lymphocytes # (1.0-4.8) k/uL Sodium (137-145) mmol/L Glucose (74-99) mg/dL POC Glucose (mg/dL) 208 H (75-99) mg/dL Calcium (8.4-10.2) mg/dL Procalcitonin (0.02-0.09) ng/mL Microbiology - Last 24 Hours (Table) 06/12/21 13:00 Gram Stain - Preliminary Buttock Wound Culture - Preliminary 06/11/21 21:20 Blood Culture - Preliminary Blood No Growth after 24 hours Assessment and Plan Plan: 1 acute febrile illness, hypotension and pain and along the sacral wound area. Consent underlying infection. The patient has had evaluation cultures of the wound clinic and a previous cultures from 01/16/2021 and showed Proteus and pseudomonas aeruginosa. In the ED, the patient was given IV fluids and currently is afebrile hemodynamically stable and lactic acid also improving. The patient was given IV Rocephin. The patient is currently afebrile and the patient has remained afebrile over the past 24 hours on IV Zosyn. Pro calcitonin level is elevated indicating an underlying bacterial infection. 2 acute lactic acidosis, improving 3 hypotension, recovered, received a total of 2 L in the ED and currently on normal saline rate of 75 mL an hour. 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 3 history of abdominal sepsis with Pseudomonas and E. 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 . The patient also has a history of deep tissue injury in the left buttocks. 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 Currently back to sinus. Plan Discontinue the Cardizem drip Obtain wound cultures Obtain blood cultures Follow-up pro calcitonin level, as the previous levels were quite elevated Put the patient IV cefepime and the patient has responded nicely as the patient is not having any fever and the patient is hemodynamically stable Monitor fever pattern Resume all medications Consult: wound services May transfer out of the intensive care unit
[2021-06-13 17:14] LABS: Glucose,Whole Blood 179 mg/dL (75-99)
[2021-06-13] MEDS: RIVAROXABAN 10 MG TAB PO SCH (17:43)
[2021-06-13] MEDS: METOPROLOL TARTRATE 25 MG TAB PO SCH (18:08)
[2021-06-13] MEDS: SODIUM CHLORIDE 0.9% 1,000 ML IV SCH (18:09)
[2021-06-13 20:56] LABS: Glucose,Whole Blood 225 mg/dL (75-99)
[2021-06-13] MEDS: INSULIN DETEMIR (LEVEMIR) 100 UNIT/ML SYR SQ SCH (21:18)
[2021-06-13] MEDS: amLODIPine 2.5 MG TAB PO SCH (21:20)
[2021-06-13] MEDS: ATORVASTATIN 20 MG TAB PO SCH (21:20)
[2021-06-13] MEDS: TAMSULOSIN 0.4 MG CAP.ER.24H PO SCH (21:20)
--- NOTE | 2021-06-14 00:18 | P.CONS ---
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, patient presenting to the ER 2 days ago for evaluation of abdominal pain that apparently started around 2 PM, however further questioning was indicated with possible pain to the sacral wound area patient on presentation to the hospital did have a fever of 104.7 F patient however did have a normal white count did have normal kidney function lactic acid was elevated as well as troponin urine was not positive leslie PCR was negative influenza was negative patient did have blood cultures as well as culture from the sacral wound area obtained which are currently pending patient did have a CT of abdominal pelvis with evidence of skin thickening of the sacrum without evidence of erosion of the coccyx and sacrum suggestive of chronic osteomyelitis patient did have a left distal ureteral 7 mm calculus without evidence of hydronephrosis layering calculi within the bladder anterior abdominal wall ostomy no significant change from prior patient was started on cefepime he was admitted to the ICU subsequently has been transferred out infectious disease was consulted with concern for sepsis and pressure ulcer patient himself is not a very good historian he could not provide any history and no family member available at the bedside so most information has been obtained from review the chart Review of Systems Positive points has been mentioned in HPI complete review could not be obtained because of his underlying mental status Past Medical History Past Medical History: Atrial Fibrillation, Atrial Flutter, Coronary Artery Disease (CAD), Chest Pain / Angina, CVA/TIA, Hyperlipidemia, Hypertension, Myocardial Infarction ([place]), Osteoarthritis (OA), Prostate Disorder, Skin Disorder, Thyroid Disorder Additional Past Medical History / Comment(s): Diverticulitis, HX PERFORATION. Gout. Eczema. BPH. Chronic Back Pain D/T PINCHED NERVE, has been bedridden since September. HX VERTIGO. FOOD GETTING STUCK IN THROAT - REMOVAL X3. 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 CABG X3 0n 07/11/15. CYST REMOVED FROM HEART 195; LEFT TESTICLE REMOVED; МАРИНА CATARACTS. EGD W/ REMOVAL FB X3. Ostomy which failed, and redone. Colostomy since September 2018. Issues with sepsis since. 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 Past Anesthesia/Blood Transfusion Reactions: No Reported Reaction Additional Past Anesthesia/Blood Transfusion Reaction / Comm: no family hx Date of Last Stent Placement:: 02/11/16 Smoking Status: Never smoker - Past Family History Mother Family Medical History: Unable to Obtain Additional Family Medical History / Comment(s): Mother had a pacemaker. Father History Unknown: Yes Family Medical History: Myocardial Infarction ([place]) Medications and Allergies Home Medications Medication Instructions Recorded Confirmed Type Nitroglycerin Sl Tabs [Nitrostat] 0.4 mg SL Q5M PRN 02/10/16 06/11/21 History Aspirin 81 mg PO DAILY@0800 04/09/16 06/11/21 History Acetaminophen Tab [Tylenol] 325 - 650 mg PO Q6H PRN 01/27/19 06/11/21 History Ipratropium-Albuterol Nebulize 3 ml INHALATION RT-Q6H PRN 02/21/19 06/11/21 Hist ory [Duoneb 0.5 mg-3 mg/3 ml Soln] Levothyroxine Sodium [Synthroid] 100 mcg PO DAILY@0800 02/21/19 06/11/21 History Tamsulosin HCl [Flomax] 0.4 mg PO HS@199902/21/19 06/11/21 History HYDROcodone/APAP 10-325MG [[place] 1 tab PO TID PRN 04/25/19 06/11/21 History 10-325] Atorvastatin [Lipitor] 20 mg PO HS@199904/16/20 06/11/21 History Baclofen 5 mg PO BID@0800,199904/16/20 06/11/21 History Metoprolol Tartrate [Lopressor] 12.5 mg PO BID@0800,199904/16/20 06/11/21 History amLODIPine [Norvasc] 2.5 mg PO HS@199904/16/20 06/11/21 History ALPRAZolam [Xanax] 0.25 mg PO TID PRN 10/23/20 06/11/21 History Lactulose [Constulose] 10 gm PO BID PRN 10/23/20 06/11/21 History Rivaroxaban [Xarelto] 10 mg PO DAILY@1700 10/23/20 06/11/21 History Ferrous Sulfate [Feosol] 325 mg PO DAILY@0800 01/28/21 06/11/21 History Multivitamins, Thera [Multivitamin 1 tab PO DAILY@0800 01/28/21 06/11/21 History (formulary)] Omeprazole 40 mg PO DAILY@0800 01/28/21 06/11/21 History Cranberry Fruit Extract [Cranberry] 500 mg PO HS@199906/11/21 06/11/21 History Docusate [Colace] 100 mg PO TID@0800,1700,199906/11/21 06/11/21 History Pregabalin [Lyrica] 100 mg PO BID@0800,199906/11/21 06/11/21 History Triamcinolone 0.1% Ointment 1 applic TOPICAL BID 06/11/21 06/11/21 History [Kenalog 0.1% Ointment] Allergies Allergy/AdvReac Type Severity Reaction Status Date / Time No Known Allergies Allergy Verified 06/11/21 18:24 Physical Exam Vitals: Vital Signs Temp Pulse Resp BP Pulse Ox 06/13/21 13:00 73 22 117/51 96 06/13/21 12:00 97.7 F 61 19 102/51 97 06/13/21 11:00 59 L 11 L 129/58 95 06/13/21 10:00 77 17 129/63 93 L 06/13/21 09:00 74 21 129/63 92 L 06/13/21 08:00 98.1 F 80 20 126/54 92 L 06/13/21 07:00 81 12 128/58 91 L 06/13/21 06:00 79 12 128/58 95 06/13/21 05:00 72 19 101/71 95 06/13/21 04:00 99.7 F H 76 15 127/63 95 06/13/21 03:00 70 18 124/55 57 L 06/13/21 02:00 65 12 112/44 95 06/13/21 01:00 63 12 120/65 93 L 06/13/21 00:02 70 12 95 06/13/21 00:00 99.6 F 71 12 131/63 95 06/12/21 23:00 68 21 127/66 89 L 06/12/21 22:00 73 22 152/73 90 L 06/12/21 21:00 81 8 L 149/63 92 L 06/12/21 20:00 98.5 F 76 17 132/60 92 L 06/12/21 19:00 77 27 H 116/47 92 L 06/12/21 18:00 81 12 139/58 92 L 06/12/21 17:00 80 24 121/56 93 L 06/12/21 16:00 98.2 F 70 27 H 116/50 93 L 06/12/21 15:30 68 17 116/50 94 L 06/12/21 15:00 67 25 H 122/65 94 L Intake and Output 06/12/21 06/13/21 06/13/21 22:59 06:59 14:59 Intake Total 1100 850 565 Output Total 610 390 660 Balance 490 460 -95 Intake: IV 700 600 375 Cefepime 2 gm In Sodium 100 Chloride 0.9% 100 ml @ 25 mls/hr IVPB Q12HR [facility] Rx #:[id number] Sodium Chloride 0.9% 1, 600 600 375 000 ml @ 75 mls/hr IV . [id number] [facility] Rx#:[id number] Intake, IV Titration 40 Amount Sodium Chloride 0.9% 1, 40 000 ml @ 75 mls/hr IV . [id number] [facility] Rx#:[id number] Oral 400 250 150 Output: Urine 610 390 660 Other: Voiding Method Indwelling Catheter Indwelling Catheter Indwelling Catheter Weight 115.6 kg GENERAL DESCRIPTION: Elderly male lying in bed, no distress. No tachypnea or accessory muscle of respiration use. HEENT: Shows Pallor , no scleral icterus. Oral mucous membrane is dry. No ph aryngeal erythema or thrush NECK: Trachea central, no thyromegaly. LUNGS: Unlabored breathing. Decreased breath sounds at the base No wheeze or crackle. HEART: S1, S2, regular rate and rhythm. No loud murmur ABDOMEN: Soft, no tenderness , guarding or rigidity, no organomegaly EXTREMITIES: Diffuse swelling to his lower extremity SKIN: No rash, no masses palpable. Patient did have a stage II sacral pressure ulcer with some surrounding erythema or foul-smelling drainage NEUROLOGICAL: The patient is awake, however pleasantly confused orientation couldn't be determined Results CBC & Chem 7: 06/13/21 08:05 06/13/21 08:05 Labs: Abnormal Lab Results - Last 24 Hours (Table) 06/12/21 06/13/21 06/13/21 Range/Units 08:13 08:05 08:05 RBC 4.04 L (4.30-5.90) m/uL Hgb 11.8 L D (13.0-17.5) gm/dL Hct 37.6 L (39.0-53.0) % RDW 16.1 H (11.5-15.5) % Plt Count 111 L (150-450) k/uL Lymphocytes # 0.5 L (1.0-4.8) k/uL Sodium 133 L (137-145) mmol/L Glucose 225 H (74-99) mg/dL POC Glucose (mg/dL) (75-99) mg/dL Calcium 8.0 L (8.4-10.2) mg/dL Procalcitonin 67.60 H (0.02-0.09) ng/mL 06/13/21 Range/Units 12:33 RBC (4.30-5.90) m/uL Hgb (13.0-17.5) gm/dL Hct (39.0-53.0) % RDW (11.5-15.5) % Plt Count (150-450) k/uL Lymphocytes # (1.0-4.8) k/uL Sodium (137-145) mmol/L Glucose (74-99) mg/dL POC Glucose (mg/dL) 208 H (75-99) mg/dL Calcium (8.4-10.2) mg/dL Procalcitonin (0.02-0.09) ng/mL Microbiology - Last 24 Hours (Table) 06/12/21 13:00 Gram Stain - Preliminary Buttock Wound Culture - Preliminary 06/11/21 21:20 Blood Culture - Preliminary Blood No Growth after 24 hours Assessment and Plan (1) Fever Current Visit: Yes Status: Acute Code(s): R50.9 - FEVER, UNSPECIFIED SNOMED Code(s): 951823182 Plan: 1patient presented to hospital with abdominal pain in this patient also have a fever patient did have CT of abdominal pelvis completed with evidence of left distal ureteral stone however the patient urine was not significantly positive could be related to possible obstructing kidney but no significant hydronephrosis, the other source of the fever could have been sacral pressure ulcer with secondary cellulitis in view of the patient responding to cefepime could be dealing with a gram-negative pathogen. 2we will repeat his urine culture 3continue with the cefepime 2 g every 12 hours. 4local wound care to the sacral wound with a dry Aquacel silver dressing and keep the area dry and of the pressure We will follow on clinical condition and cultures to further adjust medication if needed Thank you for this consultation will follow this patient along with you Time with Patient: Greater than 30
[2021-06-14] MEDS: HYDROcodone/APAP 10-325MG 1 EACH TAB PO PRN ×2 (06:24→15:46)
[2021-06-14 08:11] LABS: Glucose,Whole Blood 136 mg/dL (75-99)
[2021-06-14] MEDS: PREGABALIN 100 MG CAP PO SCH ×2 (08:15→21:31)
[2021-06-14] MEDS: INSULIN ASPART (NovoLOG) 100 UNIT/ML VIAL SQ SCH ×4 (08:15→21:29)
[2021-06-14] MEDS: BACLOFEN 10 MG TAB PO SCH ×2 (08:15→21:31)
[2021-06-14] MEDS: MULTIVITAMINS, THERA 1 EACH TAB PO SCH (08:15)
[2021-06-14] MEDS: FERROUS SULFATE 325 MG TAB PO SCH (08:15)
[2021-06-14] MEDS: DOCUSATE 100 MG CAP PO SCH ×3 (08:15→21:30)
[2021-06-14] MEDS: LEVOTHYROXINE 100 MCG TAB PO SCH (08:15)
[2021-06-14] MEDS: ASPIRIN 81 MG PO SCH (08:15)
[2021-06-14] MEDS: METOPROLOL TARTRATE 25 MG TAB PO SCH (08:15)
[2021-06-14] MEDS: CEFEPIME 2 GM in SODIUM CHLORIDE 0.9% 100 ML IVPB SCH ×2 (08:16→21:30)
[2021-06-14] MEDS: SODIUM CHLORIDE 0.9% 1,000 ML IV SCH (08:22)
[2021-06-14] MEDS: HYDROmorphone 1 MG/ML 1 ML SYRINGE IVP PRN (10:40)
[2021-06-14 11:05] LABS: Basophils % (A) 0 %; Eosinophils # (A) 0.2 k/uL (0-0.7); Eosinophils % (A) 2 %; HCT 39.5 % (39.0-53.0); HGB 12.2 gm/dL (13.0-17.5); Hypochromasia Slight; Lymphocytes # (A) 0.6 k/uL (1.0-4.8); Lymphocytes % (A) 9 %; MCH 28.7 pg (25.0-35.0); MCHC 30.9 g/dL (31.0-37.0); MCV 92.8 fL (80.0-100.0); Mean Platelet Volume 8.3; Monocytes # (A) 0.5 k/uL (0-1.0); Monocytes % (A) 7 %; Neutrophils # (A) 5.4 k/uL (1.3-7.7); Neutrophils % (A) 78 %; Platelet Count 122 k/uL (150-450); RBC 4.26 m/uL (4.30-5.90); RDW 15.9 % (11.5-15.5); WBC 6.9 k/uL (3.8-10.6)
[2021-06-14 11:17] LABS: African American GFR (CKD) >90 (>60 ml/min/1.73 sqM); Anion Gap 7 mmol/L; Blood Urea Nitrogen 14 mg/dL (9-20); Calcium 8.5 mg/dL (8.4-10.2); Carbon Dioxide 22 mmol/L (22-30); Chloride 107 mmol/L (98-107); Glucose 156 mg/dL (74-99); Non-African American GFR(CKD) 79 (>60 ml/min/1.73 sqM); Potassium 4.2 mmol/L (3.5-5.1); Sodium 136 mmol/L (137-145)
[2021-06-14 12:12] LABS: Glucose,Whole Blood 119 mg/dL (75-99)
--- NOTE | 2021-06-14 13:04 | P.PN ---
Subjective Progress Note Date: 06/14/21 85-year-old pleasant male lives at home mostly bedbound came in because of fever and chills. Patient was admitted to along the primary care physician because of which patient was not seen by internal medicine service under today. Patient's sepsis is believed to be secondary to decubitus ulcer which is stage III appear to be infected wound care is following the patient infectious disease following the patient patient is presently on cefepime. The patient has significant of bilateral lower leg extremity muscle atrophy with some swelling in the bilateral lower extremities. Patient was hypotensive was receiving IV fluids which are discontinued. Patient has Pseudomonas and Proteus mirabilis in January 2021 in the wounds. Patient's immobility A1c is 14.6 and blood sugars are still elevated and starting him on long-acting insulin along with his sliding scale he is getting right now. Patient is presently not in pain. Pain is pretty much well controlled at this time. On [place] as well patient is tolerating these medications because of which I'm not changing his medications. Patient was in a lot of pain when he came in. The patient is also on lactulose for constipation patient has 2 colostomies in which he was having some stool. 06/14/2021 Patient evaluated today on the medical floor was moved out of the ICU. He is alert and oriented x3, slept well last night. Reports his bottom is sore, positional. Colostomies are intact both functioning with stool present. Patient had a heart rate up into the 170's last night per RN, EKG in chart shows SVT with heart rate in the 170s also from June 11. Metoprolol has been increased this admission. Labs today show WBC 6.9, hgb stable at 12.2, sodium 136, potassium 4.2, blood sugars stable in the 120s. TSH was checked yesterday, WNL at 2.310. Patient did spike a temp this morning 100.1, and low grade fever yesterday morning. Heart rate 93, blood pressure 155/74, 92-93% on 2l nasal cannula. Continues on IV cefepime. Multiple consultations including infectious disease, pulmonary/senior data warehouse architect, pending cardiology evaluation today. REVIEW OF SYSTEMS: CONSTITUTIONAL: no malaise, no fatigue. HEENT: No recent visual problems or hearing problems. Denied any sore throat. CARDIOVASCULAR: No chest pain, orthopnea, PND, no palpitations, no syncope. PULMONARY: No shortness of breath, no cough, no hemoptysis. GASTROINTESTINAL/UROLOGICAL: No diarrhea, no nausea, no vomiting, no abdominal pain. No dysuria, urgency, suprapubic pain or tenderness. All inpatient medications reviewed and appropriate. PHYSICAL EXAMINATION: GENERAL: The patient is alert and oriented x3, not in any acute distress, obese HEENT: Pupils are round and equally reacting to light. EOMI. No scleral icterus. No conjunctival pallor. Normocephalic, atraumatic. No pharyngeal erythema. No thyromegaly. CARDIOVASCULAR: S1 and S2 present. No murmurs, rubs, or gallops. Irregularly irregular rhythm PULMONARY: Chest is clear to auscultation, no wheezing or crackles. ABDOMEN: Soft, nontender, nondistended, normoactive bowel sounds. No palpable organomegaly. And has a [address] MUSCULOSKELETAL: No joint swelling or deformity. EXTREMITIES: No cyanosis, clubbing, he does have a 1-2+ pitting pedal edema NEUROLOGICAL: Gross neurological examination did not reveal any focal deficits. SKIN: Colostomy x2, adbominal dressing intact. Deferred sacral decub exam. Assessment and plan -Sepsis probably secondary to sacral decub ulcers: wound cultures are still pending, previous history of pseudomonas and proteus in the wound, for now IV cefepime while cultures finalize, ID following -Lactic acidosis admitted to sepsis which improved -Hypervolemic hyponatremia patient does have some pedal edema, sodium has improved, IV fluids decreased and dyspnea improved -Type 2 diabetes mellitus uncontrolled elevated blood sugars, started on long acting insulin as well as s/s, blood sugars have improved now in the 120s -History of diverticultis with bowel perforation, multiple abdominal surgeries ; patient has [address] with chronic abdominal wound. -Coronary artery disease status post stenting and CABG in 2016 -Benign prostatic hypertrophy -History of mechanical intubation presently has a tracheostomy site is clean -Hypertension which resolved at this time -Acute renal failure resolved and this is secondary to prerenal azotemia and sepsis -Hypertension -Hyperlipidemia -Obesity -Deconditioning and chronic debility mostly bedbound -Atrial fibrillation chronic presently rate controlled and is on anticoagulation with Xarelto -Periods of SVT, metoprolol was increased and patient is pending cardiology evaluation -History hypothyroidism, TSH stable -History CVA/TIA DVT prophylaxis: On anticoagulation as mentioned above GI Prophylaxis: Protonix Full Code Objective - Vital Signs Vital signs: Vital Signs Temp 98.6 F 06/14/21 08:20 Pulse 93 06/14/21 08:20 Resp 20 06/14/21 05:45 BP 155/74 06/14/21 08:20 Pulse Ox 92 L 06/14/21 05:45 Intake & Output 06/13/21 06/14/21 06/14/21 18:59 06:59 18:59 Intake Total 565 100 Output Total 660 2200 Balance -95 -2100 Intake: IV 375 Sodium Chloride 0.9% 1, 375 000 ml @ 75 mls/hr IV . [id number] [facility] Rx#:[id number] Intake, IV Titration 40 Amount Sodium Chloride 0.9% 1, 40 000 ml @ 75 mls/hr IV . [id number] [facility] Rx#:[id number] Oral 150 100 Output: Urine 660 2200 Other: Voiding Method Indwelling Catheter Indwelling Catheter Indwelling Catheter ABP, PAP, CO, CI - Last Documented Arterial Blood Pressure 120/65 - Labs CBC & Chem 7: 06/14/21 10:46 06/14/21 10:46 Labs: Abnormal Lab Results - Last 24 Hours (Table) 06/13/21 06/13/21 06/13/21 Range/Units 08:05 12:33 17:07 RBC (4.30-5.90) m/uL Hgb (13.0-17.5) gm/dL MCHC (31.0-37.0) g/dL RDW (11.5-15.5) % Plt Count (150-450) k/uL Lymphocytes # (1.0-4.8) k/uL Sodium (137-145) mmol/L Glucose (74-99) mg/dL POC Glucose (mg/dL) 208 H 179 H (75-99) mg/dL Procalcitonin 24.20 H (0.02-0.09) ng/mL 06/13/21 06/14/21 06/14/21 Range/Units 20:45 08:07 10:46 RBC 4.26 L (4.30-5.90) m/uL Hgb 12.2 L (13.0-17.5) gm/dL MCHC 30.9 L (31.0-37.0) g/dL RDW 15.9 H (11.5-15.5) % Plt Count 122 L (150-450) k/uL Lymphocytes # 0.6 L (1.0-4.8) k/uL Sodium (137-145) mmol/L Glucose (74-99) mg/dL POC Glucose (mg/dL) 225 H 136 H (75-99) mg/dL Procalcitonin (0.02-0.09) ng/mL 06/14/21 06/14/21 Range/Units 10:46 12:10 RBC (4.30-5.90) m/uL Hgb (13.0-17.5) gm/dL MCHC (31.0-37.0) g/dL RDW (11.5-15.5) % Plt Count (150-450) k/uL Lymphocytes # (1.0-4.8) k/uL Sodium 136 L (137-145) mmol/L Glucose 156 H (74-99) mg/dL POC Glucose (mg/dL) 119 H (75-99) mg/dL Procalcitonin (0.02-0.09) ng/mL Microbiology - Last 24 Hours (Table) 06/11/21 21:20 Blood Culture - Preliminary Blood No Growth after 48 hours
--- NOTE | 2021-06-14 13:25 | P.PN ---
Subjective Progress Note Date: 06/14/21 This 85-year-old male patient came into the ED complaining of pain at the level of his chronic sacral wounds. Emergency department stated that he had abdominal pain. Nevertheless, the patient states that he has no pain in his abdomen and all of his pain was in the sacrum area as the patient has been essentially bedridden and has been is back for the past 3 years and he has a chronic ulcer/wound in that area. The patient's is currently at home. He has been various nursing homes in the past and the patient currently is being taken care of by his . His been bedridden since September 2020. He had a fever of 104. For further evaluation and investigation. The patient was slightly tachycardic with a heart rate of 119 and up onto 83. Blood pressure was soft at 100/50 mmHg and at one point he was even lower than that and responded to fluids. The patient was given Dilaudid for pain control, he was given 1 mg of Dilaudid in the ED. apparently his pain was excruciating and he was crying out from his pain. He was given 2 g IV Rocephin. His lactic acid levels were elevated and was as high as 5.4 and dropped down to 3.5. His white cell count is at 8.6 with hemoglobin of 14.6 and a platelet count of 190. Normal correlation profile. BUN is at 20 with a creatinine of 1.2 and the sodium level of 137. Glucose was 208. Troponin was 0.1 cm respectively. COVID 19 testing was negative. I nfluenza screen was negative. UA was negative. LFTs were essentially within normal limits. Chest x-ray showed no acute abnormalities. CAT scan of the abdomen and pelvis was also completed and showed decubitus skin thickening over the sacrum without evidence of ulceration or erosion. There was also a distal ureter 7 mm lesion without evidence of any hydronephrosis. There was prostate enlargement and anterior abdominal wall ostomy not significantly changed. No headaches and altered mentation at this point in time. This morning, the patient is quite comfortable. He has not spiked any fevers since and his lactic acid level is also improving.. The patient has no nausea. No emesis. No diarrhea. Also, the patient had episode of SVT overnight, received adenosine and the patient is currently on Cardizem drip at 5 mg an hour along with long- term medical condition with Xarelto. Currently back to sinus. On today's evaluation of 06/13/2021, I'm seeing the patient for a follow-up. Cheryl chamorro is doing well. The patient is hemodynamically stable. Cardiac rhythm is sinus. The patient has taken a Cardizem drip at 5 mg an hour throughout the night yesterday and this will be weaned off and discontinued today. Cardiac rhythm is sinus. He is afebrile. He is hemodynamically stable. His communicating. No respiratory distress. The patient remains on IV cefepime. The patient's white cell count of 7.9 with a hemoglobin of 11.8. Sodium is at 133, BUN is at 60 with a creatinine of 1.04. Glucose is at 208. The patient had a lactic acid level which is down to 3.5. The patient's pro calcitonin level was at 67. Based on previous cultures, I put the patient IV cefepime The patient has had previous history of Proteus and Pseudomonas in the wound cultures. At the same time, there were prior cultures that indicating Enterococcus faecalis and MRSA. One services have been consulted. The patient is doing well. His communicating. His bedridden as mentioned. All of his out patient medications and resume. No altered mentation. He is communicating effectively. Hemoglobin is stable at 11.8 and the patient continues to be on Xarelto. 06/14/2021, the patient is transferred out of the intensive care unit. His pro calcitonin level is improving and the patient was given IV cefepime by infectious disease. No new complaints. He had a low-grade temperature today. Wound care is being performed. IVs on the case. No active respiratory difficulties and the patient is currently on room air oxygen. The blood work from today shows a white cell count of 6.9 with a hemoglobin of 12.2 and BUN is at 14 with a creatinine of 0.87. Objective - Vital Signs Vital signs: Vital Signs Temp 98.4 F 06/14/21 12:00 Pulse 57 L 06/14/21 12:00 Resp 18 06/14/21 12:00 BP 138/81 06/14/21 12:00 Pulse Ox 93 L 06/14/21 12:00 Intake & Output 06/13/21 06/14/21 06/14/21 18:59 06:59 18:59 Intake Total 565 100 Output Total 660 2200 Balance -95 -2100 Intake: IV 375 Sodium Chloride 0.9% 1, 375 000 ml @ 75 mls/hr IV . [id number] [facility] Rx#:[id number] Intake, IV Titration 40 Amount Sodium Chloride 0.9% 1, 40 000 ml @ 75 mls/hr IV . [id number] [facility] Rx#:[id number] Oral 150 100 Output: Urine 660 2200 Other: Voiding Method Indwelling Catheter Indwelling Catheter Indwelling Catheter ABP, PAP, CO, CI - Last Documented Arterial Blood Pressure 120/65 - Exam Obese, comfortable , awake and alert and following commands and answering questions appropriately. No signs of any respiratory distress. The patient is afebrile. The patient is on 2 L of O2 nasal cannula. Head exam was generally normal. There was no scleral icterus or corneal arcus. Mucous membranes were moist. Neck was supple and without jugular venous distension, thyromegaly, or carotid bruits. Carotids were easily palpable bilaterally. There was no adenopathy. The patient is a tracheostomy surgical wound site is dry clean and intact. No stridors. Lungs were clear to auscultation and percussion, and with normal diaphragmatic excursion. No wheezes or rales were noted. Breath sounds are diminished in lung bases bilaterally. Cardiac exam revealed the PMI to be normally situated and sized. The rhythm was regular and no extrasystoles were noted during several minutes of auscultation. The first and second heart sounds were normal and physiologic splitting of the second heart sound was noted. There were no murmurs, rubs, clicks, or gallops. Abdomen is soft and the patient has a mid abdominal incision which is dry clean and intact. There is with superficial skin erosion and anterior abdominal wall laterally to the right with some superficial wounds that are not infected. There is also a colostomy that is functional at this point in time. There is another area where stool is coming from the anterior abdominal wall which probably is a enterocutaneous facia No abdominal distention be bowel sounds are hypoactive at this point in time he is no direct tenderness. No rebound tenderness. No guarding. Active site is dry clean and intact at this point in time. Bowel sounds are hypoactive/absent. Examination of the extremities revealed easily palpable radial, femoral and pedal pulses. There was no cyanosis, clubbing or edema. Examination of the skin . Patient continues to have a stage Iii pressure ulcer in the sacral area. The same time, the patient is an area where there is deep tissue injury on the left buttocks. No purulent drainage noted at this point in time. Neurologically, the patient is awake and alert and the patient does not have any focal neurological deficit. Cranial nerves are essentially intact. - Labs CBC & Chem 7: 06/14/21 10:46 06/14/21 10:46 Labs: Abnormal Lab Results - Last 24 Hours (Table) 06/13/21 06/13/21 06/13/21 Range/Units 08:05 17:07 20:45 RBC (4.30-5.90) m/uL Hgb (13.0-17.5) gm/dL MCHC (31.0-37.0) g/dL RDW (11.5-15.5) % Plt Count (150-450) k/uL Lymphocytes # (1.0-4.8) k/uL Sodium (137-145) mmol/L Glucose (74-99) mg/dL POC Glucose (mg/dL) 179 H 225 H (75-99) mg/dL Procalcitonin 24.20 H (0.02-0.09) ng/mL 06/14/21 06/14/21 06/14/21 Range/Units 08:07 10:46 10:46 RBC 4.26 L (4.30-5.90) m/uL Hgb 12.2 L (13.0-17.5) gm/dL MCHC 30.9 L (31.0-37.0) g/dL RDW 15.9 H (11.5-15.5) % Plt Count 122 L (150-450) k/uL Lymphocytes # 0.6 L (1.0-4.8) k/uL Sodium 136 L (137-145) mmol/L Glucose 156 H (74-99) mg/dL POC Glucose (mg/dL) 136 H (75-99) mg/dL Procalcitonin (0.02-0.09) ng/mL 06/14/21 Range/Units 12:10 RBC (4.30-5.90) m/uL Hgb (13.0-17.5) gm/dL MCHC (31.0-37.0) g/dL RDW (11.5-15.5) % Plt Count (150-450) k/uL Lymphocytes # (1.0-4.8) k/uL Sodium (137-145) mmol/L Glucose (74-99) mg/dL POC Glucose (mg/dL) 119 H (75-99) mg/dL Procalcitonin (0.02-0.09) ng/mL Microbiology - Last 24 Hours (Table) 06/12/21 13:00 Gram Stain - Final Buttock Wound Culture - Final 06/11/21 21:20 Blood Culture - Preliminary Blood No Growth after 48 hours Assessment and Plan Plan: 1 acute febrile illness, hypotension and pain and along the sacral wound area. Consent underlying infection. The patient has had evaluation cultures of the wound clinic and a previous cultures from 01/16/2021 and showed Proteus and pseudomonas aeruginosa. In the ED, the patient was given IV fluids and currently is afebrile hemodynamically stable and lactic acid also improving. The patient was given IV Rocephin. The patient is currently afebrile and the patient has remained afebrile over the past 24 hours on IV IV cefepime. Pro calcitonin level is elevated indicating an underlying bacterial infection. The patient is still on IV cefepime and the pro calcitonin level is dropping. Based on that, we opted to keep the same antibiotic coverage. ID is on the case. The patient has a deep tissue injury to his right buttocks. 2 acute lactic acidosis, improving 3 hypotension, recovered, received a total of 2 L in the ED and currently on normal saline rate of 75 mL an hour. 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 3 history of abdominal sepsis with Pseudomonas and E. 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 . The patient also has a history of deep tissue injury in the left buttocks. 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 Currently back to sinus. Plan Cultures are negative Low-grade fever this morning Follow-up pro calcitonin level showing an obvious decline and we decided to continued IV cefepime Continue IV cefepime and the patient has responded nicely as the patient is not having any fever and the patient is hemodynamically stable Monitor fever pattern Resume all medications Consult: wound services Patient is on the outside intensive care unit.
--- NOTE | 2021-06-14 13:39 | P.CRDCN ---
History of Present Illness Consult date: 06/14/21 Chief complaint: Supraventricular tachycardia History of present illness: The patient is an 85-year-old male with past medical history of SVT status post ablation, CVA, coronary artery disease, dyslipidemia, hypertension, who presented to the hospital with new onset of fever and chills. The patient has been diagnosed with septicemia secondary to decubitus ulcer. Cardiology was consulted for runs of SVT overnight. The patient was interviewed and examined lying comfortably in bed. He states he did not feel his SVT. He denies any chest pain or chest pressure. No difficulty breathing. He appears to be bed bound DIAGNOSTICS: EKG shows sinus tachycardia with occasional PACs Follow-up EKG shows supraventricular tachycardia with RVR Chest x-ray shows bibasilar atelectasis Vitals: Blood pressure 138/81, pulse 57, SpO2 93% on room air, temp 98.4F, respiratory rate 18 WBC 6.9, hemoglobin 12.2, hematocrit 39.5, platelet 122, sodium 136, potassium 4.2, BUN 14, creatinine 0.87, lactic acid 3.5, troponin 0.19, 0.17, TSH 2.3 PAST MEDICAL HISTORY: SVT, status post ablation, coronary artery disease status post CABG and stenting, dyslipidemia, hypertension, atrial fibrillation, diabetes mellitus REVIEW OF SYSTEMS: No fever or chills. No cough or expectoration. No diaphoresis. Patient denies headache, dizziness, blurred vision, double vision. Patient denies any stomach discomfort. No nausea, vomiting. No hematochezia. No hematemesis. Denies any black stools or blood in his stools. Denies dysuria or hematuria. No muscle weakness or numbness. No chest pain or chest pressure. No palpitations. No shortness of breath PHYSICAL EXAMINATION: This is a 85-year-old male in no apparent distress at the time of my examination. HEENT: Head is atraumatic, normocephalic. Pupils are equal, round. Sclerae anicteric. Conjunctivae are clear. Mucous membranes of the mouth are moist. Neck is supple. There is no jugular venous distention. No carotid bruit is heard. CHEST EXAMINATION: Lungs are diminished to auscultation. No chest wall t enderness is noted on palpation or with deep breathing. HEART EXAMINATION: Heart regular rate and rhythm. S1, S2 heard. No murmurs, gallops or rub. ABDOMEN: Soft, nontender. Bowel sounds are heard. No organomegaly noted. EXTREMITIES: 2+ peripheral pulses. +2 pitting peripheral edema and no calf t enderness noted. Bilateral foot drop noted. NEUROLOGIC EXAMINATION: Patient is awake, alert and oriented x3. FINAL ASSESSMENT AND PLAN: Elevated troponin, secondary to septicemia Supraventricular tachycardia, increase beta abelardo to 37.5 mg twice daily Atrial fibrillation, currently in sinus rhythm History of coronary artery disease Hypertension, reasonably well controlled Septicemia, management by infectious disease Diabetes mellitus, uncontrolled PLAN: Increase beta abelardo to 37.5 mg twice daily Continue to monitor for bradycardia and sick sinus syndrome Unsure of Xarelto dosing at 10mg. Pharmacy to dose for VTE prophylaxis based on creatinine clearance. Further recommendations based on clinical course I am dictating on behalf of Dr Denver Gandara's history/physical and assessment /plan. Past Medical History Past Medical History: Atrial Fibrillation, Atrial Flutter, Coronary Artery Disease (CAD), Chest Pain / Angina, CVA/TIA, Hyperlipidemia, Hypertension, Myocardial Infarction (ME), Osteoarthritis (OA), Prostate Disorder, Skin Disorder, Thyroid Disorder Additional Past Medical History / Comment(s): Diverticulitis, HX PERFORATION. Gout. Eczema. BPH. Chronic Back Pain D/T PINCHED NERVE, has been bedridden s shelly September. HX VERTIGO. FOOD GETTING STUCK IN THROAT - REMOVAL X3. Last Myocardial Infarction Date:: 08/2015 History of Any Multi-Drug Resistant Organisms: MRSA, Other MDRO, VRE Date of last positivie culture/infection: 01/16/21 MRSA 02/24/19 VRE MDRO Source:: Abdomen-MRSA & VRE Past Surgical History: Bowel Resection, Cardiac Ablation, Coronary Bypass/CABG, Heart Catheterization With Stent, Tonsillectomy Additional Past Surgical History / Comment(s): 02/11/16 Cardiac stent to SVG to diagonal; TOTAL 3 NOW. CABG X3 0n 07/11/15. CYST REMOVED FROM HEART 1958; LEFT TESTICLE REMOVED; [employer]А [employer]. EGD W/ REMOVAL FB X3. Ostomy which failed, and redone. Colostomy since September 2018. Issues with sepsis since. At [facility] family was told Rene had a VAP which was drug resistant, unsure of type, November 2018. Past Anesthesia/Blood Transfusion Reactions: No Reported Reaction Additional Past Anesthesia/Blood Transfusion Reaction / Comment(s): no family hx Date of Last Stent Placement:: 02/11/16 Smoking Status: Never smoker - Past Family History Mother Family Medical History: Unable to Obtain Additional Family Medical History / Comment(s): Mother had a pacemaker. Father History Unknown: Yes Family Medical History: Myocardial Infarction (ME) Medications and Allergies Home Medications Medication Instructions Recorded Confirmed Type Nitroglycerin Sl Tabs [Nitrostat] 0.4 mg SL Q5M PRN 02/10/16 06/11/21 History Aspirin 81 mg PO DAILY@0800 04/09/16 06/11/21 History Acetaminophen Tab [Tylenol] 325 - 650 mg PO Q6H PRN 01/27/19 06/11/21 History Ipratropium-Albuterol Nebulize 3 ml INHALATION RT-Q6H PRN 02/21/19 06/11/21 History [Duoneb 0.5 mg-3 mg/3 ml Soln] Levothyroxine Sodium [Synthroid] 100 mcg PO DAILY@0800 02/21/19 06/11/21 History Tamsulosin HCl [Flomax] 0.4 mg PO HS@199902/21/19 06/11/21 History HYDROcodone/APAP 10-325MG [[place] 1 tab PO TID PRN 04/25/19 06/11/21 History 10-325] Atorvastatin [Lipitor] 20 mg PO HS@199904/16/20 06/11/21 History Baclofen 5 mg PO BID@0800,199904/16/20 06/11/21 History Metoprolol Tartrate [Lopressor] 12.5 mg PO BID@0800,199904/16/20 06/11/21 History amLODIPine [Norvasc] 2.5 mg PO HS@199904/16/20 06/11/21 History ALPRAZolam [Xanax] 0.25 mg PO TID PRN 10/23/20 06/11/21 History Lactulose [Constulose] 10 gm PO BID PRN 10/23/20 06/11/21 History Rivaroxaban [Xarelto] 10 mg PO DAILY@1700 10/23/20 06/11/21 History Ferrous Sulfate [Feosol] 325 mg PO DAILY@0800 01/28/21 06/11/21 History Multivitamins, Thera [Multivitamin 1 tab PO DAILY@0800 01/28/21 06/11/21 History (formulary)] Omeprazole 40 mg PO DAILY@0800 01/28/21 06/11/21 History Cranberry Fruit Extract [Cranberry] 500 mg PO HS@199906/11/21 06/11/21 History Docusate [Colace] 100 mg PO TID@0800,1700,199906/11/21 06/11/21 History Pregabalin [Lyrica] 100 mg PO BID@0800,199906/11/21 06/11/21 History Triamcinolone 0.1% Ointment 1 applic TOPICAL BID 06/11/21 06/11/21 History [Kenalog 0.1% Ointment] Allergies Allergy/AdvReac Type Severity Reaction Status Date / Time No Known Allergies Allergy Verified 06/11/21 18:24 Physical Exam Vitals: Vital Signs Temp Pulse Pulse Resp BP BP Pulse Ox 06/14/21 12:00 98.4 F 57 L 18 138/81 93 L 06/14/21 08:20 98.6 F 93 155/74 06/14/21 05:45 100.1 F H 82 20 146/72 92 L 06/13/21 19:30 98.1 F 97 20 155/70 93 L 06/13/21 17:43 89 152/72 Intake and Output 06/13/21 06/14/21 06/14/21 22:59 06:59 14:59 Intake Total 100 Output Total 2200 Balance -2100 Intake: Oral 100 Output: Urine 2200 Other: Voiding Method Indwelling Catheter Indwelling Catheter Results 06/14/21 10:46 06/14/21 10:46 CBC 06/14/21 Range/Units 10:46 WBC 6.9 (3.8-10.6) k/uL RBC 4.26 L (4.30-5.90) m/uL Hgb 12.2 L (13.0-17.5) gm/dL Hct 39.5 (39.0-53.0) % Plt Count 122 L (150-450) k/uL Comprehensive Metabolic Panel 06/14/21 Range/Units 10:46 Sodium 136 L (137-145) mmol/L Potassium 4.2 (3.5-5.1) mmol/L Chloride 107 (98-107) mmol/L Carbon Dioxide 22 (22-30) mmol/L BUN 14 (9-20) mg/dL Creatinine 0.87 (0.66-1.25) mg/dL Glucose 156 H (74-99) mg/dL Calcium 8.5 (8.4-10.2) mg/dL Current Medications Generic Name Dose Route Start Last Admin Trade Name Freq PRN Reason Stop Dose Admin Acetaminophen 650 mg 06/11/21 22:03 06/11/21 23:03 Acetaminophen Tab 325 Mg Tab PO 650 mg Q6HR PRN Administration Mild Pain or Fever > 100.5 Hydrocodone Bitart/Acetaminophen 1 each 06/12/21 09:59 06/14/21 06:24 Hydrocodone/Apap 10-325mg 1 Each Tab PO 1 each TID PRN Administration Pain Albuterol/Ipratropium 3 ml 06/12/21 09:59 Ipratropium-Albuterol 3 Ml Neb INHALATION RT-Q6H PRN Shortness Of Breath Alprazolam 0.25 mg 06/12/21 09:59 06/13/21 09:00 Alprazolam 0.25 Mg Tab PO 0.25 mg TID PRN Administration Anxiety Amlodipine Besylate 2.5 mg 06/12/21 20:00 06/13/21 21:20 Amlodipine 2.5 Mg Tab PO 2.5 mg HS@1999 KER[facility] Administration Aspirin 81 mg 06/13/21 08:00 06/14/21 08:15 Aspirin 81 Mg PO 81 mg DAILY@08 KEREN Administration Atorvastatin Calcium 20 mg 06/12/21 20:00 06/13/21 21:20 Atorvastatin 20 Mg Tab PO 20 mg HS@1999 K[facility] Administration Baclofen 5 mg 06/12/21 20:00 06/14/21 08:15 Baclofen 10 Mg Tab PO 5 mg BID@ [facility] Administration Docusate Sodium 100 mg 06/12/21 17:00 06/14/21 08:15 Docusate 100 Mg Cap PO 100 mg TID@0800,1699,1999 KEREN Administration Ferrous Sulfate 325 mg 06/13/21 08:00 06/14/21 08:15 Ferrous Sulfate 325 Mg Tab PO 325 mg DAILY@0800 K[facility]EN Administration Hydromorphone HCl 0.5 mg 06/11/21 22:03 06/12/21 00:16 Hydromorphone 0.5 Mg/0.5 Ml Syringe IVP 0.5 mg Q3HR PRN Administration Moderate Pain Hydromorphone HCl 1 mg 06/11/21 22:03 06/14/21 10:40 Hydromorphone 1 Mg/Ml 1 Ml Syringe IVP 0.5 mg Q3HR PRN Administration Severe Pain Cefepime HCl 2 gm/ Sodium 100 mls @ 25 mls/hr 06/12/21 13:45 06/14/21 08:16 Chloride IVPB 25 mls/hr Q12HR [facility] Administration Protocol Sodium Chloride 1,000 mls @ 20 mls/hr 06/13/21 14:00 06/14/21 08:22 Saline 0.9% IV 20 mls/hr .Q24H [facility]EREN Administration Insulin Aspart 0 unit 06/13/21 12:30 06/14/21 12:30 Insulin Aspart (Novolog) 100 Unit/Ml Vial SQ Not Given ACHS [facility] Protocol Insulin Detemir 10 unit 06/13/21 21:00 06/13/21 21:18 Insulin Detemir (Levemir) 100 Unit/Ml Syr SQ 10 unit HS [facility] Administration Lactulose 10 gm 06/12/21 10:11 Lactulose 20 Gm/30 Ml Cup PO BID PRN Constipation Levothyroxine Sodium 100 mcg 06/13/21 08:00 06/14/21 08:15 Levothyroxine 100 Mcg Tab PO 100 mcg DAILY@0800 [facility] Administration Lorazepam 0.5 mg 06/11/21 22:03 Lorazepam 2 Mg/Ml Inj IV Q6HR PRN Anxiety Melatonin 3 mg 06/11/21 22:03 Melatonin 3 Mg Tablet PO HS PRN Insomnia Metoprolol Tartrate 37.5 mg 06/14/21 21:00 Metoprolol Tartrate 12.5 Mg Tab PO BID [facility] Multivitamins 1 each 06/13/21 08:00 06/14/21 08:15 Multivitamins, Thera 1 Each Tab PO 1 each DAILY@0800 [facility] Administration Naloxone HCl 0.2 mg 06/11/21 22:03 Naloxone 0.4 Mg/Ml 1 Ml Vial IV Q2M PRN Opioid Reversal Nitroglycerin 0.4 mg 06/12/21 09:59 Nitroglycerin Sl Tabs 0.4 Mg Tab SUBLINGUAL Q5M PRN Chest Pain Ondansetron HCl 4 mg 06/11/21 22:03 Ondansetron 4 Mg/2 Ml Vial IVP Q8HR PRN Nausea And Vomiting Pantoprazole Sodium 40 mg 06/15/21 07:30 Pantoprazole 40 Mg Tablet PO AC-[id number] [facility] Pregabalin 100 mg 06/12/21 20:00 06/14/21 08:15 Pregabalin 100 Mg Cap PO 100 mg BID@08,1999 [facility] Administration Rivaroxaban 10 mg 06/12/21 17:00 06/13/21 17:43 Rivaroxaban 10 Mg Tab PO 10 mg DAILY@1700 [facility] Administration Protocol Tamsulosin HCl 0.4 mg 06/12/21 20:00 06/13/21 21:20 Tamsulosin 0.4 Mg Cap.Er.24h PO 0.4 mg HS@1999 [facility] Administration Intake and Output 06/13/21 06/14/21 06/14/21 22:59 06:59 14:59 Intake Total 100 Output Total 2200 Balance -2100 Intake: Oral 100 Output: Urine 2200 Other: Voiding Method Indwelling Catheter Indwelling Catheter 06/14/21 10:46 06/14/21 10:46
[2021-06-14 17:35] LABS: Glucose,Whole Blood 167 mg/dL (75-99)
--- NOTE | 2021-06-14 17:48 | P.PN ---
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 On today's evaluation that is 06/14/2021, the patient did have a low-grade fever 100.1F this morning, no fever since then the patient is breathing comfortably on nasal oxygen and is currently states he cannot provide any history of vomiting diarrhea or any other changes reported by the nursing staff Objective - Vital Signs Vital signs: Vital Signs Temp 98.4 F 06/14/21 12:00 Pulse 57 L 06/14/21 12:00 Resp 18 06/14/21 12:00 BP 138/81 06/14/21 12:00 Pulse Ox 93 L 06/14/21 12:00 Intake & Output 06/13/21 06/14/21 06/14/21 18:59 06:59 18:59 Intake Total 565 100 Output Total 660 2200 Balance -95 -2100 Intake: IV 375 Sodium Chloride 0.9% 1, 375 000 ml @ 75 mls/hr IV . [id number] STA Rx#:[id number] Intake, IV Titration 40 Amount Sodium Chloride 0.9% 1, 40 000 ml @ 75 mls/hr IV . [id number] KEREN Rx#:[id number] Oral 150 100 Output: Urine 660 2200 Other: Voiding Method Indwelling Catheter Indwelling Catheter Indwelling Catheter ABP, PAP, CO, CI - Last Documented Arterial Blood Pressure 120/65 - Exam GENERAL DESCRIPTION: An elderly male lying in bed in no distress RESPIRATORY SYSTEM: Unlabored breathing , decreased breath sounds at bases HEART: S1 S2 regular rate and rhythm , ABDOMEN: Soft , no tenderness EXTREMITIES: Diffuse swelling to the leg no drainage - Labs CBC & Chem 7: 06/14/21 10:46 06/14/21 10:46 Labs: Abnormal Lab Results - Last 24 Hours (Table) 06/13/21 06/13/21 06/13/21 Range/Units 08:05 17:07 20:45 RBC (4.30-5.90) m/uL Hgb (13.0-17.5) gm/dL MCHC (31.0-37.0) g/dL RDW (11.5-15.5) % Plt Count (150-450) k/uL Lymphocytes # (1.0-4.8) k/uL Sodium (137-145) mmol/L Glucose (74-99) mg/dL POC Glucose (mg/dL) 179 H 225 H (75-99) mg/dL Procalcitonin 24.20 H (0.02-0.09) ng/mL 06/14/21 06/14/21 06/14/21 Range/Units 08:07 10:46 10:46 RBC 4.26 L (4.30-5.90) m/uL Hgb 12.2 L (13.0-17.5) gm/dL MCHC 30.9 L (31.0-37.0) g/dL RDW 15.9 H (11.5-15.5) % Plt Count 122 L (150-450) k/uL Lymphocytes # 0.6 L (1.0-4.8) k/uL Sodium 136 L (137-145) mmol/L Glucose 156 H (74-99) mg/dL POC Glucose (mg/dL) 136 H (75-99) mg/dL Procalcitonin (0.02-0.09) ng/mL 06/14/21 Range/Units 12:10 RBC (4.30-5.90) m/uL Hgb (13.0-17.5) gm/dL MCHC (31.0-37.0) g/dL RDW (11.5-15.5) % Plt Count (150-450) k/uL Lymphocytes # (1.0-4.8) k/uL Sodium (137-145) mmol/L Glucose (74-99) mg/dL POC Glucose (mg/dL) 119 H (75-99) mg/dL Procalcitonin (0.02-0.09) ng/mL Microbiology - Last 24 Hours (Table) 06/12/21 13:00 Gram Stain - Final Buttock Wound Culture - Final 06/11/21 21:20 Blood Culture - Preliminary Blood No Growth after 48 hours Assessment and Plan (1) Fever Current Visit: Yes Status: Acute Code(s): R50.9 - FEVER, UNSPECIFIED SNOMED Code(s): 046337380 Plan: 1patient presented to hospital with abdominal pain in this patient also have a fever patient did have CT of abdominal pelvis completed with evidence of left distal ureteral stone however the patient urine was not significantly positive could be related to possible obstructing kidney but no significant hydronephrosis, the other source of the fever could have been sacral pressure ulcer with secondary cellulitis in view of the patient responding to cefepime could be dealing with a gram-negative pathogen. 2repeat UA and urine culture are currently pending 3continue with the cefepime 2 g every 12 hours While waiting for the cultures to finalize 4local wound care to the sacral wound with a dry Aquacel silver dressing and keep the area dry and of the pressure Time with Patient: Less than 30
[2021-06-14] MEDS: RIVAROXABAN 10 MG TAB PO SCH (18:48)
[2021-06-14 19:02] LABS: Appearance,Urine Clear (Clear); Bilirubin,Urine Negative (Negative); Blood,Urine Small (Negative); Color,Urine Yellow; Glucose,Urine (UA) Negative (Negative); Ketones,Urine Negative (Negative); Leukocyte Esterase,Urine Small (Negative); Mucus,Urine Occasional /hpf; Nitrite,Urine Negative (Negative); PH, Urine 6.5 (5.0-8.0); Protein,Urine 1+ (Negative); RBC,Urine 6 /hpf (0-5); Specific Gravity,Urine 1.014 (1.001-1.035); Squamous Epithelial Cell,Urine <1 /hpf (0-4); Urobilinogen,Urine <2.0 mg/dL (<2.0); WBC,Urine 9 /hpf (0-5)
[2021-06-14 21:07] LABS: Glucose,Whole Blood 139 mg/dL (75-99)
[2021-06-14] MEDS: INSULIN DETEMIR (LEVEMIR) 100 UNIT/ML SYR SQ SCH (21:29)
[2021-06-14] MEDS: TAMSULOSIN 0.4 MG CAP.ER.24H PO SCH (21:30)
[2021-06-14] MEDS: METOPROLOL TARTRATE 12.5 MG TAB PO SCH (21:30)
[2021-06-14] MEDS: ATORVASTATIN 20 MG TAB PO SCH (21:30)
[2021-06-14] MEDS: amLODIPine 2.5 MG TAB PO SCH (21:31)
[2021-06-15] MEDS: HYDROcodone/APAP 10-325MG 1 EACH TAB PO PRN ×3 (00:22→19:17)
[2021-06-15] MEDS: HYDROmorphone 1 MG/ML 1 ML SYRINGE IVP PRN ×2 (04:31→19:20)
[2021-06-15 07:25] LABS: Glucose,Whole Blood 112 mg/dL (75-99)
[2021-06-15] MEDS: INSULIN ASPART (NovoLOG) 100 UNIT/ML VIAL SQ SCH ×4 (07:31→20:24)
[2021-06-15] MEDS: CEFEPIME 2 GM in SODIUM CHLORIDE 0.9% 100 ML IVPB SCH ×2 (07:57→19:18)
[2021-06-15] MEDS: METOPROLOL TARTRATE 12.5 MG TAB PO SCH ×2 (07:57→19:18)
[2021-06-15] MEDS: PANTOPRAZOLE 40 MG TABLET PO SCH (07:58)
[2021-06-15] MEDS: PREGABALIN 100 MG CAP PO SCH ×2 (07:58→19:18)
[2021-06-15] MEDS: BACLOFEN 10 MG TAB PO SCH ×2 (07:58→19:18)
[2021-06-15] MEDS: DOCUSATE 100 MG CAP PO SCH ×3 (07:58→19:18)
[2021-06-15] MEDS: FERROUS SULFATE 325 MG TAB PO SCH (07:58)
[2021-06-15] MEDS: ASPIRIN 81 MG PO SCH (07:58)
[2021-06-15] MEDS: LEVOTHYROXINE 100 MCG TAB PO SCH (07:58)
[2021-06-15] MEDS: MULTIVITAMINS, THERA 1 EACH TAB PO SCH (07:58)
--- NOTE | 2021-06-15 10:05 | P.PN ---
Subjective Progress Note Date: 06/15/21 85-year-old pleasant male lives at home mostly bedbound came in because of fever and chills. Patient was admitted to along the primary care physician because of which patient was not seen by internal medicine service under today. Patient's sepsis is believed to be secondary to decubitus ulcer which is stage III appear to be infected wound care is following the patient infectious disease following the patient patient is presently on cefepime. The patient has significant of bilateral lower leg extremity muscle atrophy with some swelling in the bilateral lower extremities. Patient was hypotensive was receiving IV fluids which are discontinued. Patient has Pseudomonas and Proteus mirabilis in January 2021 in the wounds. Patient's immobility A1c is 14.6 and blood sugars are still elevated and starting him on long-acting insulin along with his sliding scale he is getting right now. Patient is presently not in pain. Pain is pretty much well controlled at this time. On [place] as well patient is tolerating these medications because of which I'm not changing his medications. Patient was in a lot of pain when he came in. The patient is also on lactulose for constipation patient has 2 colostomies in which he was having some stool. 06/14/2021 Patient evaluated today on the medical floor was moved out of the ICU. He is alert and oriented x3, slept well last night. Reports his bottom is sore, positional. Colostomies are intact both functioning with stool present. Patient had a heart rate up into the 170's last night per RN, EKG in chart shows SVT with heart rate in the 170s also from June 11. Metoprolol has been increased this admission. Labs today show WBC 6.9, hgb stable at 12.2, sodium 136, potassium 4.2, blood sugars stable in the 120s. TSH was checked yesterday, WNL at 2.310. Patient did spike a temp this morning 100.1, and low grade fever yesterday morning. Heart rate 93, blood pressure 155/74, 92-93% on 2l nasal cannula. Continues on IV cefepime. Multiple consultations including infectious disease, pulmonary/animal biologist, pending cardiology evaluation today. 06/15/2021 Patient is evaluated today during bed bath. Skin assessment reveals significant intertrigo in bilatera groin folds, recommended to cleanse with warm soapy water use nystatin powder and can use innerdry sheets, will add some cream. patient is being followed by wound care and infectious disease. Local wound care to sacrum with aquacel currently recommended. Continues on IV cefepime while cutures finalize. Repeat urinalysis yesterday and urine culture is currently pending. Blood culture negative so far. Bilateral ostomy site intact with left ostomy brown/maroon drainage and right ostomy with light brown soft stool present. Chronic nazario catheter draining, slightly cloudy as compared to yesterday. No shortness of breath, no chest pain. Sinus bradycarda in the 50's, no tachycardia throughout the evening continues on increased dose of metoprolol 37.5, followed closely by cardiology. Afebrile, blood pressure 116/69, 93% on room air. REVIEW OF SYSTEMS: CONSTITUTIONAL: no malaise, no fatigue. HEENT: No recent visual problems or hearing problems. Denied any sore throat. CARDIOVASCULAR: No chest pain, orthopnea, PND, no palpitations, no syncope. PULMONARY: No shortness of breath, no cough, no hemoptysis. GASTROINTESTINAL/UROLOGICAL: No diarrhea, no nausea, no vomiting, no abdominal pain. No dysuria, urgency, suprapubic pain or tenderness. All inpatient medications reviewed and appropriate. PHYSICAL EXAMINATION: GENERAL: The patient is alert and oriented x3, not in any acute distress, obese HEENT: Pupils are round and equally reacting to light. EOMI. No scleral icterus. No conjunctival pallor. Normocephalic, atraumatic. No pharyngeal erythema. No thyromegaly. CARDIOVASCULAR: S1 and S2 present. No murmurs, rubs, or gallops. Irregularly irregular rhythm PULMONARY: Chest is clear to auscultation, no wheezing or crackles. ABDOMEN: Soft, nontender, nondistended, normoactive bowel sounds. No palpable organomegaly. And has a [address] MUSCULOSKELETAL: No joint swelling or deformity. EXTREMITIES: No cyanosis, clubbing, he does have a 1-2+ pitting pedal edema NEUROLOGICAL: Gross neurological examination did not reveal any focal deficits. SKIN: Colostomy x2, adbominal dressing intact. Deferred sacral decub exam. Intertrigo as described above to bilateral groin folds. Assessment and plan -Sepsis probably secondary to sacral decub ulcers: wound cultures are pending, previous history of pseudomonas and proteus in the wound, for now IV cefepime while cultures finalize, ID following -Rule out urinary tract infection, urinalysis questionable, culture is pending, patient dose have chronic nazario, continues on IV antibiotics per infectious disease -Lactic acidosis admitted to sepsis which improved -Hypervolemic hyponatremia patient does have some pedal edema, sodium has improved, IV fluids decreased and dyspnea improved -Type 2 diabetes mellitus uncontrolled elevated blood sugars, started on long acting insulin as well as s/s, blood sugars have improved now in the 120s -History of diverticultis with bowel perforation, multiple abdominal surgeries ; patient has [address] with chronic abdominal wound. -Coronary artery disease status post stenting and CABG in 2016 -Benign prostatic hypertrophy -History of mechanical intubation presently has a tracheostomy site is clean -Hypertension which resolved at this time -Acute renal failure resolved and this is secondary to prerenal azotemia and sepsis -Hypertension -Hyperlipidemia -Obesity -Deconditioning and chronic debility mostly bedbound -Atrial fibrillation chronic presently in sinus jacqueline cardia is on anticoagulation with Xarelto, medication changes per cardiology -Periods of SVT, metoprolol was increased and patient is being followed closely by cardiology -History hypothyroidism, TSH stable -History CVA/TIA DVT prophylaxis: On anticoagulation as mentioned above GI Prophylaxis: Protonix Full Code Objective - Vital Signs Vital signs: Vital Signs Temp 97.6 F 06/15/21 05:00 Pulse 58 L 06/15/21 05:00 Resp 16 06/15/21 05:00 BP 116/69 06/15/21 05:00 Pulse Ox 93 L 06/15/21 05:00 Intake & Output 06/14/21 06/15/21 06/15/21 18:59 06:59 18:59 Intake Total 590 240 Output Total 1100 1900 Balance -1100 -1310 240 Intake: Oral 590 240 Output: Urine 1100 1900 Other: Voiding Method Indwelling Catheter Indwelling Catheter Indwelling Catheter ABP, PAP, CO, CI - Last Documented Arterial Blood Pressure 120/65 - Labs CBC & Chem 7: 06/14/21 10:46 06/14/21 10:46 Labs: Abnormal Lab Results - Last 24 Hours (Table) 06/14/21 06/14/21 06/14/21 Range/Units 10:46 10:46 12:10 RBC 4.26 L (4.30-5.90) m/uL Hgb 12.2 L (13.0-17.5) gm/dL MCHC 30.9 L (31.0-37.0) g/dL RDW 15.9 H (11.5-15.5) % Plt Count 122 L (150-450) k/uL Lymphocytes # 0.6 L (1.0-4.8) k/uL Sodium 136 L (137-145) mmol/L Glucose 156 H (74-99) mg/dL POC Glucose (mg/dL) 119 H (75-99) mg/dL Urine Protein (Negative) Urine Blood (Negative) Ur Leukocyte Esterase (Negative) Urine RBC (0-5) /hpf Urine WBC (0-5) /hpf Urine Mucus (None) /hpf 06/14/21 06/14/21 06/14/21 Range/Units 17:32 18:31 20:56 RBC (4.30-5.90) m/uL Hgb (13.0-17.5) gm/dL MCHC (31.0-37.0) g/dL RDW (11.5-15.5) % Plt Count (150-450) k/uL Lymphocytes # (1.0-4.8) k/uL Sodium (137-145) mmol/L Glucose (74-99) mg/dL POC Glucose (mg/dL) 167 H 139 H (75-99) mg/dL Urine Protein 1+ H (Negative) Urine Blood Small H (Negative) Ur Leukocyte Esterase Small H (Negative) Urine RBC 6 H (0-5) /hpf Urine WBC 9 H (0-5) /hpf Urine Mucus Occasional H (None) /hpf 06/15/21 Range/Units 06:59 RBC (4.30-5.90) m/uL Hgb (13.0-17.5) gm/dL MCHC (31.0-37.0) g/dL RDW (11.5-15.5) % Plt Count (150-450) k/uL Lymphocytes # (1.0-4.8) k/uL Sodium (137-145) mmol/L Glucose (74-99) mg/dL POC Glucose (mg/dL) 112 H (75-99) mg/dL Urine Protein (Negative) Urine Blood (Negative) Ur Leukocyte Esterase (Negative) Urine RBC (0-5) /hpf Urine WBC (0-5) /hpf Urine Mucus (None) /hpf Microbiology - Last 24 Hours (Table) 06/11/21 21:20 Blood Culture - Preliminary Blood No Growth after 72 hours 06/12/21 13:00 Gram Stain - Final Buttock Wound Culture - Final Assessment and Plan Time with Patient: Less than 30
--- NOTE | 2021-06-15 11:11 | P.PN ---
Subjective Progress Note Date: 06/15/21 HISTORY OF PRESENT ILLNESS: The patient is an 85-year-old male with past medical history of SVT status post ablation, CVA, coronary artery disease, dyslipidemia, hypertension, who p resented to the hospital with new onset of fever and chills. The patient has been diagnosed with septicemia secondary to decubitus ulcer. Cardiology was consulted for runs of SVT overnight. The patient was interviewed and examined lying comfortably in bed. He states he did not feel his SVT. He denies any chest pain or chest pressure. No difficulty breathing. He appears to be bed bound DIAGNOSTICS: EKG shows sinus tachycardia with occasional PACs Follow-up EKG shows supraventricular tachycardia with RVR Chest x-ray shows bibasilar atelectasis Vitals: Blood pressure 138/81, pulse 57, SpO2 93% on room air, temp 98.4F, respiratory rate 18 WBC 6.9, hemoglobin 12.2, hematocrit 39.5, platelet 122, sodium 136, potassium 4.2, BUN 14, creatinine 0.87, lactic acid 3.5, troponin 0.19, 0.17, TSH 2.3 06/15/2021 Patient examined this morning at the bedside. Patient denies chest pain or pressure. Denies SOB. Telemetry reveals sinus mechanism. No further runs of SVT. Vital signs are stable. PHYSICAL EXAM: VITAL SIGNS: Reviewed. GENERAL: Well-developed in no acute distress. NECK: Supple. No JVD or thyromegaly LUNGS: Respirations even and unlabored. Lungs diminished to auscultation bilaterally. HEART: Regular rate and rhythm. S1 and S2 heard. EXTREMITIES: Normal range of motion. No clubbing or cyanosis. Peripheral pulses intact. 2+ bilateral lower extremity edema ASSESSMENT: Elevated troponin, secondary to septicemia Supraventricular tachycardia, increased beta abelardo to 37.5 mg twice daily Atrial fibrillation, currently in sinus rhythm History of coronary artery disease Hypertension, reasonably well controlled Septicemia, management by infectious disease Diabetes mellitus, uncontrolled PLAN: Continue current cardiac medications Per Dr. Partida, consult general surgery, Dr. Woodward, to evaluate patients chronic abdominal wound No further inpatient recommendations from a cardiac standpoint We will sign off. Please reconsult if needed. Nurse practitioner note has been reviewed by physician. Signing provider agrees with the documented findings, assessment, and plan of care. Objective - Vital Signs Vital signs: Vital Signs Temp 97.6 F 06/15/21 05:00 Pulse 58 L 06/15/21 05:00 Resp 16 06/15/21 05:00 BP 116/69 06/15/21 05:00 Pulse Ox 93 L 06/15/21 05:00 Intake & Output 06/14/21 06/15/21 06/15/21 18:59 06:59 18:59 Intake Total 590 240 Output Total 1100 1900 200 Balance -1100 -1310 40 Intake: Oral 590 240 Output: Urine 1100 1900 Stool 200 Other: Voiding Method Indwelling Catheter Indwelling Catheter Indwelling Catheter ABP, PAP, CO, CI - Last Documented Arterial Blood Pressure 120/65 - Labs CBC & Chem 7: 06/14/21 10:46 06/14/21 10:46 Labs: Abnormal Lab Results - Last 24 Hours (Table) 06/14/21 06/14/21 06/14/21 Range/Units 10:46 12:10 17:32 Sodium 136 L (137-145) mmol/L Glucose 156 H (74-99) mg/dL POC Glucose (mg/dL) 119 H 167 H (75-99) mg/dL Urine Protein (Negative) Urine Blood (Negative) Ur Leukocyte Esterase (Negative) Urine RBC (0-5) /hpf Urine WBC (0-5) /hpf Urine Mucus (None) /hpf 06/14/21 06/14/21 06/15/21 Range/Units 18:31 20:56 06:59 Sodium (137-145) mmol/L Glucose (74-99) mg/dL POC Glucose (mg/dL) 139 H 112 H (75-99) mg/dL Urine Protein 1+ H (Negative) Urine Blood Small H (Negative) Ur Leukocyte Esterase Small H (Negative) Urine RBC 6 H (0-5) /hpf Urine WBC 9 H (0-5) /hpf Urine Mucus Occasional H (None) /hpf Microbiology - Last 24 Hours (Table) 06/11/21 21:20 Blood Culture - Preliminary Blood No Growth after 72 hours 06/12/21 13:00 Gram Stain - Final Buttock Wound Culture - Final
[2021-06-15 11:18] LABS: African American GFR (CKD) >90 (>60 ml/min/1.73 sqM); Anion Gap 7 mmol/L; Blood Urea Nitrogen 14 mg/dL (9-20); Calcium 8.8 mg/dL (8.4-10.2); Carbon Dioxide 24 mmol/L (22-30); Chloride 104 mmol/L (98-107); Glucose 158 mg/dL (74-99); Magnesium 1.9 mg/dL (1.6-2.3); Non-African American GFR(CKD) 82 (>60 ml/min/1.73 sqM); Sodium 135 mmol/L (137-145)
[2021-06-15 12:17] LABS: Glucose,Whole Blood 138 mg/dL (75-99)
--- NOTE | 2021-06-15 12:21 | P.CONS ---
History of Present Illness - Reason for Consult Consult date: 06/15/21 wound care - History of Present Illness This is an 85-year-old patient known to the wound care center with multiple ulcerations to the abdomen and a stage II pressure ulcer to the sacrum. Patient has been utilizing Hydrofera Blue to the ulceration site. Original cause of wound was surgical . The date acquired was: 02/12/2019. The wound has been in treatment 16 weeks. The wound is currently classified as a Full Thickness Without Exposed Support Structures wound with etiology of Open Surgical Wound and is located on the Right,Lateral Abdomen - Upper Quadrant. The wound measures 9.9cm length x 6.5cm width x 0.1cm depth; 50.54cm^2 area and 5.054cm^3 volume. The wound is limited to skin breakdown. There is no tunneling or undermining noted. There is a medium amount of serosanguineous drainage noted. There is medium (34-66%) red granulation within the wound bed. There is a small (1-33%) amount of necrotic tissue within the wound bed including Adherent Slough. The periwound skin appearance exhibited: Excoriation, Scarring, Dry/Scaly. The periwound skin appearance did not exhibit: Maceration. Periwound temperature was noted as No Abnormality. Original cause of wound was Gradually Appeared. The date acquired was: 02/12/2019. The wound has been in treatment 16 weeks. The wound is currently classified as a Full Thickness Without Exposed Support Structures wound with etiology of Inflammatory and is located on the Medial Coccyx. The wound measures 1.9cm length x 1.6cm width x 0.1cm depth; 2.388cm^2 area and 0.239cm^3 volume. The wound is limited to skin breakdown. There is no tunneling or undermining noted. There is a medium amount of serosanguineous drainage noted. The wound margin is fibrotic, thickened scar. There is large (67-100%) red granulation within the wound bed. There is a small (1-33%) amount of necrotic tissue within the wound bed including Adherent Slough. The periwound skin appearance exhibited: Excoriation, Induration, Scarring, Maceration, Ecchymosis, Erythema. The periwound skin appearance did not exhibit: Callus, Rash, Dry/Scaly, Hemosiderin Staining, Mottled, Pallor, Rubor. The surrounding wound skin color is noted with erythema which is circumferential. Erythema is marked. Periwound temperature was noted as No Abnormality. The periwound has tenderness on palpation. Review Of Systems: Constitutional: No fever, no chills, no night sweats. No weight change. No weakness, fatigue or lethargy. No daytime sleepiness. Integumentary:reports wounds, no lesions. No rash or pruritus. No unusual bruising. No change in hair or nails. Physical exam: General Appearance: Alert, cooperative, no distress, appears stated age. Skin: See HPI all other Skin color, texture, tugor normal, no rashes or lesions. Neurologic: Alert oriented x3 Assessment/plan: 1. Stage II pressure ulcer sacrum. Apply triad cream and sacral border foam change every other day. Wound care appointment is 06/18/2021 at 1245 2. 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 Apply triad cream to the site. Thank you for the consultation any questions please contact the wound care center DNP note has been reviewed and discussed with Dr. Munguia and the impression and plan of care has been directed as dictated. Past Medical History Past Medical History: Atrial Fibrillation, Atrial Flutter, Coronary Artery Disease (CAD), Chest Pain / Angina, CVA/TIA, Hyperlipidemia, Hypertension, Myocardial Infarction ([place]), Osteoarthritis (OA), Prostate Disorder, Skin Disorder, Thyroid Disorder Additional Past Medical History / Comment(s): Diverticulitis, HX PERFORATION. Gout. Eczema. BPH. Chronic Back Pain D/T PINCHED NERVE, has been bedridden since September. HX VERTIGO. FOOD GETTING STUCK IN THROAT - REMOVAL X3. 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 CABG X3 0n 07/11/15. CYST REMOVED FROM HEART 1958; LEFT TESTICLE REMOVED; МАРИНА CAT[employer]S. EGD W/ REMOVAL FB X3. Ostomy which failed, and redone. Colostomy since September 2018. Issues with sepsis since. 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 Past Anesthesia/Blood Transfusion Reactions: No Reported Reaction Additional Past Anesthesia/Blood Transfusion Reaction / Comm: no family hx Date of Last Stent Placement:: 02/11/16 Smoking Status: Never smoker - Past Family History Mother Family Medical History: Unable to Obtain Additional Family Medical History / Comment(s): Mother had a pacemaker. Father History Unknown: Yes Family Medical History: Myocardial Infarction ([place]) Medications and Allergies Home Medications Medication Instructions Recorded Confirmed Type Nitroglycerin Sl Tabs [Nitrostat] 0.4 mg SL Q5M PRN 02/10/16 06/11/21 History Aspirin 81 mg PO DAILY@0800 04/09/16 06/11/21 History Acetaminophen Tab [Tylenol] 325 - 650 mg PO Q6H PRN 01/27/19 06/11/21 History Ipratropium-Albuterol Nebulize 3 ml INHALATION RT-Q6H PRN 02/21/19 06/11/21 History [Duoneb 0.5 mg-3 mg/3 ml Soln] Levothyroxine Sodium [Synthroid] 100 mcg PO DAILY@0800 02/21/19 06/11/21 History Tamsulosin HCl [Flomax] 0.4 mg PO HS@199902/21/19 06/11/21 History HYDROcodone/APAP 10-325MG [[place] 1 tab PO TID PRN 04/25/19 06/11/21 History 10-325] Atorvastatin [Lipitor] 20 mg PO HS@199904/16/20 06/11/21 History Baclofen 5 mg PO BID@0800,199904/16/20 06/11/21 History Metoprolol Tartrate [Lopressor] 12.5 mg PO BID@0800,199904/16/20 06/11/21 History amLODIPine [Norvasc] 2.5 mg PO HS@199904/16/20 06/11/21 History ALPRAZolam [Xanax] 0.25 mg PO TID PRN 10/23/20 06/11/21 History Lactulose [Constulose] 10 gm PO BID PRN 10/23/20 06/11/21 History Rivaroxaban [Xarelto] 10 mg PO DAILY@1700 10/23/20 06/11/21 History Ferrous Sulfate [Feosol] 325 mg PO DAILY@0800 01/28/21 06/11/21 History Multivitamins, Thera [Multivitamin 1 tab PO DAILY@0800 01/28/21 06/11/21 History (formulary)] Omeprazole 40 mg PO DAILY@0800 01/28/21 06/11/21 History Cranberry Fruit Extract [Cranberry] 500 mg PO HS@199906/11/21 06/11/21 History Docusate [Colace] 100 mg PO TID@0800,170,199906/11/21 06/11/21 History Pregabalin [Lyrica] 100 mg PO BID@0800,199906/11/21 06/11/21 History Triamcinolone 0.1% Ointment 1 applic TOPICAL BID 06/11/21 06/11/21 History [Kenalog 0.1% Ointment] Allergies Allergy/AdvReac Type Severity Reaction Status Date / Time No Known Allergies Allergy Verified 06/11/21 18:24 Physical Exam Vitals: Vital Signs Temp Pulse Resp BP Pulse Ox 06/15/21 11:01 98.1 F 57 L 16 131/71 93 L 06/15/21 05:00 97.6 F 58 L 16 116/69 93 L 06/14/21 21:00 99.0 F 65 16 143/72 95 Intake and Output 06/14/21 06/15/21 06/15/21 22:59 06:59 14:59 Intake Total 590 240 Output Total 1100 1900 200 Balance -1100 -1310 40 Intake: Oral 590 240 Output: Urine 1100 1900 Stool 200 Other: Voiding Method Indwelling Catheter Indwelling Catheter Results CBC & Chem 7: 06/14/21 10:46 06/15/21 09:55 Labs: Abnormal Lab Results - Last 24 Hours (Table) 06/14/21 06/14/21 06/14/21 Range/Units 17:32 18:31 20:56 Sodium (137-145) mmol/L Glucose (74-99) mg/dL POC Glucose (mg/dL) 167 H 139 H (75-99) mg/dL Urine Protein 1+ H (Negative) Urine Blood Small H (Negative) Ur Leukocyte Esterase Small H (Negative) Urine RBC 6 H (0-5) /hpf Urine WBC 9 H (0-5) /hpf Urine Mucus Occasional H (None) /hpf 06/15/21 06/15/21 Range/Units 06:59 09:55 Sodium 135 L (137-145) mmol/L Glucose 158 H (74-99) mg/dL POC Glucose (mg/dL) 112 H (75-99) mg/dL Urine Protein (Negative) Urine Blood (Negative) Ur Leukocyte Esterase (Negative) Urine RBC (0-5) /hpf Urine WBC (0-5) /hpf Urine Mucus (None) /hpf Microbiology - Last 24 Hours (Table) 06/11/21 21:20 Blood Culture - Preliminary Blood No Growth after 72 hours 06/12/21 13:00 Gram Stain - Final Buttock Wound Culture - Final Assessment and Plan (1) Non-pressure chronic ulcer of skin of other sites with fat layer exposed Current Visit: No Status: Acute Code(s): L98.492 - NON-PRS CHRONIC ULCER OF SKIN OF SITES W FAT LAYER EXPOSED SNOMED Code(s): 59694708 (2) Pressure ulcer of sacral region, stage 2 Current Visit: No Status: Acute Code(s): L89.152 - PRESSURE ULCER OF SACRAL REGION, STAGE 2 SNOMED Code(s): 445903412
[2021-06-15] MEDS: HYDROPHILIC CREAM 180 GM TUBE TOPICAL SCH (12:49)
[2021-06-15 13:47] LABS: Anisocytosis Slight; Basophils % (A) 1 %; Eosinophils # (A) 0.2 k/uL (0-0.7); Eosinophils % (A) 2 %; HCT 43.6 % (39.0-53.0); HGB 13.7 gm/dL (13.0-17.5); Hypochromasia Moderate; Lymphocytes # (A) 0.7 k/uL (1.0-4.8); Lymphocytes % (A) 9 %; MCH 29.7 pg (25.0-35.0); MCHC 31.3 g/dL (31.0-37.0); MCV 94.6 fL (80.0-100.0); Monocytes # (A) 0.4 k/uL (0-1.0); Monocytes % (A) 6 %; Neutrophils # (A) 5.6 k/uL (1.3-7.7); Neutrophils % (A) 78 %; Platelet Count 140 k/uL (150-450); RBC 4.61 m/uL (4.30-5.90); RDW 16.3 % (11.5-15.5); WBC 7.2 k/uL (3.8-10.6)
--- NOTE | 2021-06-15 14:12 | P.PN ---
Subjective Progress Note Date: 06/15/21 Principal diagnosis: Sepsis This 85-year-old male patient came into the ED complaining of pain at the level of his chronic sacral wounds. Emergency department stated that he had abdominal pain. Nevertheless, the patient states that he has no pain in his abdomen and all of his pain was in the sacrum area as the patient has been essentially bedridden and has been is back for the past 3 years and he has a chronic ulcer/wound in that area. The patient's is currently at home. He has been various nursing homes in the past and the patient currently is being taken care of by his . His been bedridden since September 2020. He had a fever of 104. For further evaluation and investigation. The patient was slightly tachycardic with a heart rate of 119 and up onto 83. Blood pressure was soft at 100/50 mmHg and at one point he was even lower than that and responded to fluids. The patient was given Dilaudid for pain control, he was given 1 mg of Dilaudid in the ED. apparently his pain was excruciating and he was crying out from his pain. He was given 2 g IV Rocephin. His lactic acid levels were elevated and was as high as 5.4 and dropped down to 3.5. His white cell count is at 8.6 with hemoglobin of 14.6 and a platelet count of 190. Normal correlation profile. BUN is at 20 with a creatinine of 1.2 and the sodium level of 137. Glucose was 208. Troponin was 0.1 cm respectively. COVID 19 testing was negative. Influenza screen was negative. UA was negative. LFTs were essentially within normal limits. Chest x-ray showed no acute abnormalities. CAT scan of the abdomen and pelvis was also completed and showed decubitus skin thickening over the sacrum without evidence of ulceration or erosion. There was also a distal ureter 7 mm lesion without evidence of any hydronephrosis. There was prostate enlargement and anterior abdominal wall ostomy not significantly changed. No headaches and altered mentation at this point in time. This morning, the p atient is quite comfortable. He has not spiked any fevers since and his lactic acid level is also improving.. The patient has no nausea. No emesis. No diarrhea. Also, the patient had episode of SVT overnight, received adenosine and the patient is currently on Cardizem drip at 5 mg an hour along with long- term medical condition with Xarelto. Currently back to sinus. On today's evaluation of 06/13/2021, I'm seeing the patient for a follow-up. Patient is doing well. The patient is hemodynamically stable. Cardiac rhythm is sinus. The patient has taken a Cardizem drip at 5 mg an hour throughout the night yesterday and this will be weaned off and discontinued today. Cardiac rhythm is sinus. He is afebrile. He is hemodynamically stable. His communicating. No respiratory distress. The patient remains on IV cefepime. The patient's white cell count of 7.9 with a hemoglobin of 11.8. Sodium is at 133, BUN is at 60 with a creatinine of 1.04. Glucose is at 208. The patient had a lactic acid level which is down to 3.5. The patient's pro calcitonin level was at 67. Based on previous cultures, I put the patient IV cefepime The patient has had previous history of Proteus and Pseudomonas in the wound cultures. At the same time, there were prior cultures that indicating Ente rococcus faecalis and MRSA. One services have been consulted. The patient is doing well. His communicating. His bedridden as mentioned. All of his outpatient medications and resume. No altered mentation. He is communicating effectively. Hemoglobin is stable at 11.8 and the patient continues to be on Xarelto. 06/14/2021, the patient is transferred out of the intensive care unit. His pro calcitonin level is improving and the patient was given IV cefepime by infectious disease. No new complaints. He had a low-grade temperature today. Wound care is being performed. IVs on the case. No active respiratory difficulties and the patient is currently on room air oxygen. The blood work from today shows a white cell count of 6.9 with a hemoglobin of 12.2 and BUN is at 14 with a creatinine of 0.87. On 06/15/2021 patient seen in follow-up on medical surgical floor, he is resting comfortably in bed, he is on room air, denies any pulmonary symptoms, no cough, no shortness of breath, room air pulse ox 93%, hemodynamically he is stable. She remains on antibiotics for sepsis with a possibility of wound infection. However his blood and sacral wound cultures are negative. Denies any chest pain or pressure. Low-grade fever in the last 24 hours. Objective - Vital Signs Vital signs: Vital Signs Temp 98.1 F 06/15/21 11:01 Pulse 57 L 06/15/21 11:01 Resp 16 06/15/21 11:01 BP 131/71 06/15/21 11:01 Pulse Ox 93 L 06/15/21 11:01 Intake & Output 06/14/21 06/15/21 06/15/21 18:59 06:59 18:59 Intake Total 590 600 Output Total 1100 1900 200 Balance -1100 -1310 400 Intake: Oral 590 600 Output: Urine 1100 1900 Stool 200 Other: Voiding Method Indwelling Catheter Indwelling Catheter Indwelling Catheter ABP, PAP, CO, CI - Last Documented Arterial Blood Pressure 120/65 - Exam GENERAL EXAM: Alert, very pleasant, obese 85-year-old white male, resting comfortably in bed, on room air with a pulse ox of 93% comfortable in no apparent distress. HEAD: Normocephalic/atraumatic. EYES: Normal reaction of pupils, equal size. Conjunctiva pink, sclera white. NOSE: Clear with pink turbinates. THROAT: No erythema or exudates. NECK: No masses, no JVD, no thyroid enlargement, no adenopathy. CHEST: No chest wall deformity. Symmetrical expansion. LUNGS: Equal air entry with no crackles, wheeze, rhonchi or dullness. CVS: Regular rate and rhythm, normal S1 and S2, no gallops, no murmurs, no rubs ABDOMEN: Soft, nontender. No hepatosplenomegaly, normal bowel sounds, no guarding or rigidity. Colostomy is in place which is functional, there is a another opening on the anterior lower abdominal wall with stool, none of it that is probably related to enteral cutaneous fascia EXTREMITIES: No clubbing, no edema, no cyanosis, 2+ pulses and upper and lower extremities. MUSCULOSKELETAL: Muscle strength and tone normal. SPINE: No scoliosis or deformity SKIN: No rashes, stage II pressure ulcer on the sacrum CENTRAL NERVOUS SYSTEM: Alert and oriented -3. No focal deficits, tone is normal in all 4 extremities. PSYCHIATRIC: Alert and oriented -3. Appropriate affect. Intact judgment and insight. - Labs CBC & Chem 7: 06/15/21 09:55 06/15/21 09:55 Labs: Abnormal Lab Results - Last 24 Hours (Table) 06/14/21 06/14/21 06/14/21 Range/Units 17:32 18:31 20:56 RDW (11.5-15.5) % Plt Count (150-450) k/uL Lymphocytes # (1.0-4.8) k/uL Sodium (137-145) mmol/L Glucose (74-99) mg/dL POC Glucose (mg/dL) 167 H 139 H (75-99) mg/dL Urine Protein 1+ H (Negative) Urine Blood Small H (Negative) Ur Leukocyte Esterase Small H (Negative) Urine RBC 6 H (0-5) /hpf Urine WBC 9 H (0-5) /hpf Urine Mucus Occasional H (None) /hpf 06/15/21 06/15/21 06/15/21 Range/Units 06:59 09:55 09:55 RDW 16.3 H (11.5-15.5) % Plt Count 140 L (150-450) k/uL Lymphocytes # 0.7 L (1.0-4.8) k/uL Sodium 135 L (137-145) mmol/L Glucose 158 H (74-99) mg/dL POC Glucose (mg/dL) 112 H (75-99) mg/dL Urine Protein (Negative) Urine Blood (Negative) Ur Leukocyte Esterase (Negative) Urine RBC (0-5) /hpf Urine WBC (0-5) /hpf Urine Mucus (None) /hpf 06/15/21 Range/Units 12:08 RDW (11.5-15.5) % Plt Count (150-450) k/uL Lymphocytes # (1.0-4.8) k/uL Sodium (137-145) mmol/L Glucose (74-99) mg/dL POC Glucose (mg/dL) 138 H (75-99) mg/dL Urine Protein (Negative) Urine Blood (Negative) Ur Leukocyte Esterase (Negative) Urine RBC (0-5) /hpf Urine WBC (0-5) /hpf Urine Mucus (None) /hpf Microbiology - Last 24 Hours (Table) 06/11/21 21:20 Blood Culture - Preliminary Blood No Growth after 72 hours 06/12/21 13:00 Gram Stain - Final Buttock Wound Culture - Final Assessment and Plan Plan: Assessment: #1. Acute febrile illness, hypotension and pain and along the sacral wound area. Consent underlying infection. The patient has had evaluation cultures of the wound clinic and a previous cultures from 01/16/2021 and showed Proteus and pseudomonas aeruginosa. In the ED, the patient was given IV fluids and currently is afebrile hemodynamically stable and lactic acid also improving. The patient was given IV Rocephin. The patient is currently afebrile and the patient has remained afebrile over the past 24 hours on IV IV cefepime. Pro calcitonin level is elevated indicating an underlying bacterial infection. The patient is still on IV cefepime and the pro calcitonin level is dropping. Based on that, we opted to keep the same antibiotic coverage. ID is on the case. The patient has a deep tissue injury to his right buttocks. #2. Acute lactic acidosis, improving #3. Hypotension, recovered, received a total of 2 L in the ED and currently on normal saline rate of 75 mL an hour. #4. 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 #3. History of abdominal sepsis with Pseudomonas and E. coli #4. 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 . The patient also has a history of deep tissue injury in the left buttocks. #5. Anterior abdominal wound, healing #6. 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 Prolonged hospitalization requiring intubation mechanical ventilation with subsequent decannulation and a tracheostomy site is dry clean and intact #8. Coronary artery disease #9. BPH #10. Diabetes mellitus #11. Hypertension #12. Hyperlipidemia #13. Morbid obesity with a BMI 32 #14. Sedentary, nonambulatory, and the patient is essentially bedridden at this point in time #15. BPH #16. Nonobstructive left ureteral calculus #17. Episode of SVT overnight, received adenosine and the patient is currently on Cardizem drip at 5 mg an hour along with long-term medical condition with Xarelto. Currently back to sinus. Plan: Continue antibiotics per ID service recommendations No clear evidence of pneumonia No pulmonary symptoms Patient is on room air Wound care per wound care team GI and DVT prophylaxis I have personally seen and examined the patient, performed the documentation and the assessment and plan as written. Number of minutes spent on the visit: [10] Time with Patient: Less than 30
--- NOTE | 2021-06-15 15:06 | P.GSCN ---
History of Present Illness Consult date: 06/15/21 History of present illness: CHIEF COMPLAINT: Sacral ulcer HISTORY OF PRESENT ILLNESS: This is a 85-year-old male who presented to the hospital with complaints of pain in the sacral ulcer area. Patient reports that he follows at wound care center. Patient currently on antibiotics. She is followed by infectious disease and wound care service. Surgical service consult regarding patient's abdominal wounds. Patient has surgical history of exploratory laparotomy, sigmoid colectomy with end colostomy and drainage of abscess secondary to perforated diverticulitis with peritonitis. Hospitalized at [facility] requiring revision of his colostomy. Patient reports that his initial colostomy had not been working and required a colostomy to be moved from the left side of the abdomen to the right side of the abdomen. Patient also had debridement of wound and old colostomy site in February 2019. The wound on the left side of the abdomen may be a mucous fistula. Patient also has a foul odor noted coming from possibly the abdomen. He also has an area of er ythema with scabbing noted on the right side of the abdomen. Patient reports that there is been no change on his abdomen. The output through the left wound is maroon-colored stool. Also has stool noted on the right colostomy bag. Patient denies any nausea or vomiting. Patient has been having some low-grade temps. Patient seen and examined with Dr. sr PAST MEDICAL HISTORY: Atrial Fibrillation, Atrial Flutter, Coronary Artery Disease (CAD), Chest Pain / Angina, CVA/TIA, Hyperlipidemia, Hypertension, Myocardial Infarction (MS), Osteoarthritis (OA), Prostate Disorder, Skin Disorder, Thyroid Disorder, diverticulitis PAST SURGICAL HISTORY: Bowel Resection, Cardiac Ablation, Coronary Bypass/CABG, Heart Catheterization With Stent, Tonsillectomy MEDICATIONS: See list. ALLERGIES: See list. SOCIAL HISTORY: No illicit drug use. REVIEW OF SYSTEMS: CONSTITUTIONAL: Denies fever or chills. HEENT: Denies blurred vision, vision changes, or eye pain. Denies hemoptysis CARDIOVASCULAR: Denies chest pain or pressure. RESPIRATORY: No shortness of breath. GASTROINTESTINAL: See HPI for pertinent findings HEMATOLOGIC: Denies bleeding disorders. GENITOURINARY: Denies any blood in urine or increased urinary frequency. SKIN: Denies pruitis. Denies rash. PHYSICAL EXAM: VITAL SIGNS: Reviewed GENERAL: Well-developed in no acute distress. HEENT: No sclera icterus. Extraocular movements grossly intact. Moist buccal mucosa. Head is atraumatic, normocephalic. No nasal drainage. ABDOMEN: Soft. Obese. Nondistended. Nontender. Left-sided abdomen questionable mucous fistula producing maroon-colored stools. Right colostomy bag with stool noted. The right colostomy bag middle of abdomen there is area of erythema with scabbing. Slightly warm to touch. Nontender. NEUROLOGIC: Alert and oriented. Cranial nerves II through XII grossly intact. LABORATORY DATA: WBC 7.2 hemoglobin 13.7 platelets 140 Sodium 135 potassium 4.0 creatinine 0.81 glucose 138 magnesium 1.9 IMAGING: Computed tomography scan abdomen and pelvis from 06/11/2021 imaging decubitus skin thickening over the sacrum without evidence with similar erosion of the coccyx and sacrum suggesting component of chronic osteomyelitis. Left distal ureter 7 mm calculus without evidence for hydronephrosis. Similar to prior. Layering calculi within the bladder similar to prior, prostamegaly. Fecal low I'll within the rectum. Anterior abdominal wall ostomy not significant change from prior. ASSESSMENT: 1. Abdominal wound on left side of abdomen which could possibly be a mucous fistula 2. Febrile illness 3. Chronic Sacral decubitus ulcer 4. Exploratory laparotomy, sigmoid colectomy with end colostomy and drainage of abscess secondary to perforated diverticulitis with peritonitis in September 2018. Patient had required revision of his colostomy at [facility]. 5. Chronic wound related to his colostomy site requiring debridement of the wound in February 2019 PLAN: -Obtain postop note from [facility] where patient had colostomy reversal completed -Continue local wound care -Continue supportive care -continue antibiotics per ID service -Further recommendations forthcoming Thank you for this consultation Physician Spanish Lecturer note has been reviewed by physician. Signing provider agrees with the documented findings, assessment, and plan of care. Past Medical History Past Medical History: Atrial Fibrillation, Atrial Flutter, Coronary Artery Disease (CAD), Chest Pain / Angina, CVA/TIA, Hyperlipidemia, Hypertension, Myocardial Infarction (MS), Osteoarthritis (OA), Prostate Disorder, Skin Disorder, Thyroid Disorder Additional Past Medical History / Comment(s): Diverticulitis, HX PERFORATION. Gout. Eczema. BPH. Chronic Back Pain D/T PINCHED NERVE, has been bedridden since September. HX VERTIGO. FOOD GETTING STUCK IN THROAT - REMOVAL X3. 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 CABG X3 0n 07/11/15. CYST REMOVED FROM HEART 1958; LEFT TESTICLE REMOVED; МАРИНА CAT[employer]ACTS. EGD W/ REMOVAL FB X3. Ostomy which failed, and redone. Colostomy since September 2018. Issues with sepsis since. 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 Past Anesthesia/Blood Transfusion Reactions: No Reported Reaction Additional Past Anesthesia/Blood Transfusion Reaction / Comm: no family hx Date of Last Stent Placement:: 02/11/16 Smoking Status: Never smoker - Past Family History Mother Family Medical History: Unable to Obtain Additional Family Medical History / Comment(s): Mother had a pacemaker. Father History Unknown: Yes Family Medical History: Myocardial Infarction (MS) Medications and Allergies Home Medications Medication Instructions Recorded Confirmed Type Nitroglycerin Sl Tabs [Nitrostat] 0.4 mg SL Q5M PRN 02/10/16 06/11/21 History Aspirin 81 mg PO DAILY@0800 04/09/16 06/11/21 History Acetaminophen Tab [Tylenol] 325 - 650 mg PO Q6H PRN 01/27/19 06/11/21 History Ipratropium-Albuterol Nebulize 3 ml INHALATION RT-Q6H PRN 02/21/19 06/11/21 History [Duoneb 0.5 mg-3 mg/3 ml Soln] Levothyroxine Sodium [Synthroid] 100 mcg PO DAILY@0800 02/21/19 06/11/21 History Tamsulosin HCl [Flomax] 0.4 mg PO HS@199902/21/19 06/11/21 History HYDROcodone/APAP 10-325MG [[place] 1 tab PO TID PRN 04/25/19 06/11/21 History 10-325] Atorvastatin [Lipitor] 20 mg PO HS@199904/16/20 06/11/21 History Baclofen 5 mg PO BID@0800,199904/16/20 06/11/21 History Metoprolol Tartrate [Lopressor] 12.5 mg PO BID@0800,199904/16/20 06/11/21 History amLODIPine [Norvasc] 2.5 mg PO HS@199904/16/20 06/11/21 History ALPRAZolam [Xanax] 0.25 mg PO TID PRN 10/23/20 06/11/21 History Lactulose [Constulose] 10 gm PO BID PRN 10/23/20 06/11/21 History Rivaroxaban [Xarelto] 10 mg PO DAILY@1700 10/23/20 06/11/21 History Ferrous Sulfate [Feosol] 325 mg PO DAILY@0800 01/28/21 06/11/21 History Multivitamins, Thera [Multivitamin 1 tab PO DAILY@0800 01/28/21 06/11/21 History (formulary)] Omeprazole 40 mg PO DAILY@0800 01/28/21 06/11/21 History Cranberry Fruit Extract [Cranberry] 500 mg PO HS@199906/11/21 06/11/21 History Docusate [Colace] 100 mg PO TID@0800,1700,199906/11/21 06/11/21 History Pregabalin [Lyrica] 100 mg PO BID@0800,199906/11/21 06/11/21 History Triamcinolone 0.1% Ointment 1 applic TOPICAL BID 06/11/21 06/11/21 History [Kenalog 0.1% Ointment] Allergies Allergy/AdvReac Type Severity Reaction Status Date / Time No Known Allergies Allergy Verified 06/11/21 18:24 Surgical - Exam Vital Signs Temp Pulse Resp BP Pulse Ox 104.7 F H 119 H 16 100/54 92 L 06/11/21 17:07 06/11/21 17:07 06/11/21 17:07 06/11/21 17:07 06/11/21 17:07 Results - Labs 06/15/21 09:55 06/15/21 09:55 Abnormal Lab Results - Last 24 Hours (Table) 06/14/21 06/14/21 06/14/21 Range/Units 17:32 18:31 20:56 RDW (11.5-15.5) % Plt Count (150-450) k/uL Lymphocytes # (1.0-4.8) k/uL Sodium (137-145) mmol/L Glucose (74-99) mg/dL POC Glucose (mg/dL) 167 H 139 H (75-99) mg/dL Urine Protein 1+ H (Negative) Urine Blood Small H (Negative) Ur Leukocyte Esterase Small H (Negative) Urine RBC 6 H (0-5) /hpf Urine WBC 9 H (0-5) /hpf Urine Mucus Occasional H (None) /hpf 06/15/21 06/15/21 06/15/21 Range/Units 06:59 09:55 09:55 RDW 16.3 H (11.5-15.5) % Plt Count 140 L (150-450) k/uL Lymphocytes # 0.7 L (1.0-4.8) k/uL Sodium 135 L (137-145) mmol/L Glucose 158 H (74-99) mg/dL POC Glucose (mg/dL) 112 H (75-99) mg/dL Urine Protein (Negative) Urine Blood (Negative) Ur Leukocyte Esterase (Negative) Urine RBC (0-5) /hpf Urine WBC (0-5) /hpf Urine Mucus (None) /hpf 06/15/21 Range/Units 12:08 RDW (11.5-15.5) % Plt Count (150-450) k/uL Lymphocytes # (1.0-4.8) k/uL Sodium (137-145) mmol/L Glucose (74-99) mg/dL POC Glucose (mg/dL) 138 H (75-99) mg/dL Urine Protein (Negative) Urine Blood (Negative) Ur Leukocyte Esterase (Negative) Urine RBC (0-5) /hpf Urine WBC (0-5) /hpf Urine Mucus (None) /hpf Microbiology - Last 24 Hours (Table) 06/11/21 21:20 Blood Culture - Preliminary Blood No Growth after 72 hours 06/12/21 13:00 Gram Stain - Final Buttock Wound Culture - Final Diabetes panel 06/15/21 Range/Units 09:55 Sodium 135 L (137-145) mmol/L Potassium 4.0 (3.5-5.1) mmol/L Chloride 104 (98-107) mmol/L Carbon Dioxide 24 (22-30) mmol/L BUN 14 (9-20) mg/dL Creatinine 0.81 (0.66-1.25) mg/dL Glucose 158 H (74-99) mg/dL Calcium 8.8 (8.4-10.2) mg/dL Calcium panel 06/15/21 Range/Units 09:55 Calcium 8.8 (8.4-10.2) mg/dL Pituitary panel 06/15/21 Range/Units 09:55 Sodium 135 L (137-145) mmol/L Potassium 4.0 (3.5-5.1) mmol/L Chloride 104 (98-107) mmol/L Carbon Dioxide 24 (22-30) mmol/L BUN 14 (9-20) mg/dL Creatinine 0.81 (0.66-1.25) mg/dL Glucose 158 H (74-99) mg/dL Calcium 8.8 (8.4-10.2) mg/dL Adrenal panel 06/15/21 Range/Units 09:55 Sodium 135 L (137-145) mmol/L Potassium 4.0 (3.5-5.1) mmol/L Chloride 104 (98-107) mmol/L Carbon Dioxide 24 (22-30) mmol/L BUN 14 (9-20) mg/dL Creatinine 0.81 (0.66-1.25) mg/dL Glucose 158 H (74-99) mg/dL Calcium 8.8 (8.4-10.2) mg/dL
[2021-06-15 17:12] LABS: Glucose,Whole Blood 159 mg/dL (75-99)
[2021-06-15] MEDS: SODIUM CHLORIDE 0.9% 1,000 ML IV SCH (17:28)
[2021-06-15] MEDS: RIVAROXABAN 10 MG TAB PO SCH (17:54)
[2021-06-15] MEDS: TAMSULOSIN 0.4 MG CAP.ER.24H PO SCH (19:18)
[2021-06-15] MEDS: amLODIPine 2.5 MG TAB PO SCH (19:18)
[2021-06-15] MEDS: ATORVASTATIN 20 MG TAB PO SCH (19:18)
[2021-06-15 20:12] LABS: Glucose,Whole Blood 189 mg/dL (75-99)
[2021-06-15] MEDS: INSULIN DETEMIR (LEVEMIR) 100 UNIT/ML SYR SQ SCH (20:24)
[2021-06-16] MEDS: HYDROcodone/APAP 10-325MG 1 EACH TAB PO PRN ×3 (03:32→19:11)
[2021-06-16 07:03] LABS: Glucose,Whole Blood 121 mg/dL (75-99)
[2021-06-16] MEDS: INSULIN ASPART (NovoLOG) 100 UNIT/ML VIAL SQ SCH ×4 (07:10→20:32)
[2021-06-16] MEDS: METOPROLOL TARTRATE 12.5 MG TAB PO SCH ×2 (08:28→19:10)
[2021-06-16] MEDS: CEFEPIME 2 GM in SODIUM CHLORIDE 0.9% 100 ML IVPB SCH ×2 (08:28→20:50)
[2021-06-16] MEDS: BACLOFEN 10 MG TAB PO SCH ×2 (08:29→19:10)
[2021-06-16] MEDS: MULTIVITAMINS, THERA 1 EACH TAB PO SCH (08:29)
[2021-06-16] MEDS: LEVOTHYROXINE 100 MCG TAB PO SCH (08:29)
[2021-06-16] MEDS: PANTOPRAZOLE 40 MG TABLET PO SCH (08:29)
[2021-06-16] MEDS: PREGABALIN 100 MG CAP PO SCH ×2 (08:29→19:10)
[2021-06-16] MEDS: ASPIRIN 81 MG PO SCH (08:29)
[2021-06-16] MEDS: DOCUSATE 100 MG CAP PO SCH ×3 (08:29→19:10)
[2021-06-16] MEDS: FERROUS SULFATE 325 MG TAB PO SCH (08:29)
[2021-06-16] MEDS: HYDROPHILIC CREAM 180 GM TUBE TOPICAL SCH (08:29)
[2021-06-16 09:15] LABS: Basophils # (A) 0.06 X 10*3/uL (0.00-0.10); Basophils % (A) 0.8 %; Eosinophils # (A) 0.26 X 10*3/uL (0.04-0.35); Eosinophils % (A) 3.3 %; HCT 39.3 % (39.6-50.0); HGB 12.2 g/dL (13.0-17.0); Immature Grans, Automated 1.7 %; Lymphocytes # (A) 1.05 X 10*3/uL (0.90-5.00); Lymphocytes % (A) 13.5 %; MCH 27.4 pg (27.0-32.0); MCV 88.1 fL (80.0-97.0); Mean Platelet Volume 11.6 fL (9.5-12.2); Monocytes # (A) 0.97 X 10*3/uL (0.20-1.00); Monocytes % (A) 12.5 %; NRBC Per 100 WBC 0.3 /100 WBCS (0.0-0.0); Neutrophils % (A) 68.2 %; Platelet Count 143 X 10*3/uL (140-440); RBC 4.46 X 10*6/uL (4.40-5.60); RDW 16.9 % (11.5-14.5); WBC 7.77 X 10*3/uL (4.50-10.00)
[2021-06-16 09:39] LABS: African American GFR (CKD) 90.6 (60.0-200.0); BUN/Creat Ratio 11.33 Ratio (12.00-20.00); Blood Urea Nitrogen 10.2 mg/dL (9.0-27.0); Non-African American GFR(CKD) 78.2 (60.0-200.0); Potassium 3.8 mmol/L (3.5-5.5)
[2021-06-16 10:20] VITALS: BMI 33.6
[2021-06-16] MEDS ORDERED: NA PHOS,M-B/NA PHOS,DI-BA 133 ML ENEMA RECTAL ONE (11:15)
--- NOTE | 2021-06-16 11:39 | P.PN ---
Subjective Progress Note Date: 06/16/21 This 85-year-old male patient came into the ED complaining of pain at the level of his chronic sacral wounds. Emergency department stated that he had abdominal pain. Nevertheless, the patient states that he has no pain in his abdomen and all of his pain was in the sacrum area as the patient has been essentially bedridden and has been is back for the past 3 years and he has a chronic ulcer/wound in that area. The patient's is currently at home. He has been various nursing homes in the past and the patient currently is being taken care of by his . His been bedridden since September 2020. He had a fever of 104. For further evaluation and investigation. The patient was slightly tachycardic with a heart rate of 119 and up onto 83. Blood pressure was soft at 100/50 mmHg and at one point he was even lower than that and responded to fluids. The patient was given Dilaudid for pain control, he was given 1 mg of Dilaudid in the ED. apparently his pain was excruciating and he was crying out from his pain. He was given 2 g IV Rocephin. His lactic acid levels were elevated and was as high as 5.4 and dropped down to 3.5. His white cell count is at 8.6 with hemoglobin of 14.6 and a platelet count of 190. Normal correlation profile. BUN is at 20 with a creatinine of 1.2 and the sodium level of 137. Glucose was 208. Troponin was 0.1 cm respectively. COVID 19 testing was negative. In fluenza screen was negative. UA was negative. LFTs were essentially within normal limits. Chest x-ray showed no acute abnormalities. CAT scan of the abdomen and pelvis was also completed and showed decubitus skin thickening over the sacrum without evidence of ulceration or erosion. There was also a distal ureter 7 mm lesion without evidence of any hydronephrosis. There was prostate enlargement and anterior abdominal wall ostomy not significantly changed. No headaches and altered mentation at this point in time. This morning, the patient is quite comfortable. He has not spiked any fevers since and his lactic acid level is also improving.. The patient has no nausea. No emesis. No d iarrhea. Also, the patient had episode of SVT overnight, received adenosine and the patient is currently on Cardizem drip at 5 mg an hour along with long- term medical condition with Xarelto. Currently back to sinus. On today's evaluation of 06/13/2021, I'm seeing the patient for a follow-up. Stan king is doing well. The patient is hemodynamically stable. Cardiac rhythm is sinus. The patient has taken a Cardizem drip at 5 mg an hour throughout the night yesterday and this will be weaned off and discontinued today. Cardiac rhythm is sinus. He is afebrile. He is hemodynamically stable. His communicating. No respiratory distress. The patient remains on IV cefepime. The patient's white cell count of 7.9 with a hemoglobin of 11.8. Sodium is at 133, BUN is at 60 with a creatinine of 1.04. Glucose is at 208. The patient had a lactic acid level which is down to 3.5. The patient's pro calcitonin level was at 67. Based on previous cultures, I put the patient IV cefepime The patient has had previous history of Proteus and Pseudomonas in the wound cultures. At the same time, there were prior cultures that indicating Enterococcus faecalis and MRSA. One services have been consulted. The patient is doing well. His communicating. His bedridden as mentioned. All of his outp atient medications and resume. No altered mentation. He is communicating effectively. Hemoglobin is stable at 11.8 and the patient continues to be on Xarelto. 06/14/2021, the patient is transferred out of the intensive care unit. His pro calcitonin level is improving and the patient was given IV cefepime by infectious disease. No new complaints. He had a low-grade temperature today. Wound care is being performed. IVs on the case. No active respiratory difficulties and the patient is currently on room air oxygen. The blood work from today shows a white cell count of 6.9 with a hemoglobin of 12.2 and BUN is at 14 with a creatinine of 0.87. On 06/15/2021 patient seen in follow-up on medical surgical floor, he is resting comfortably in bed, he is on room air, denies any pulmonary symptoms, no cough, no shortness of breath, room air pulse ox 93%, hemodynamically he is stable. She remains on antibiotics for sepsis with a possibility of wound infection. However his blood and sacral wound cultures are negative. Denies any chest pain or pressure. Low-grade fever in the last 24 hours. The patient is seen today 06/16/2021 in follow-up on the regular medical floor. He is currently resting comfortably in bed. Awake and alert in no acute distress. He is maintaining O2 saturations in the 90s on room air. He's been hemodynamically stable. He's been afebrile. He remains on cefepime. Blood cultures reveals no growth. Wound culture from the buttocks reveals no growth. Urine culture revealed no growth. White count 7.7. Hemoglobin 12.2. Sodium 138. Potassium 3.8. Creatinine 0.9. Glucose 127. Anticoagulated with Xarelto. Objective - Vital Signs Vital signs: Vital Signs Temp 97.5 F L 06/16/21 04:34 Pulse 67 06/16/21 08:22 Resp 16 06/16/21 04:34 BP 138/72 06/16/21 08:22 Pulse Ox 95 06/16/21 04:34 Intake & Output 06/15/21 06/16/21 06/16/21 18:59 06:59 18:59 Intake Total 600 1050 Output Total 1400 1200 Balance -800 -150 Weight 115.6 kg Intake: IV 100 Cefepime 2 gm In Sodium 100 Chloride 0.9% 100 ml @ 25 mls/hr IVPB Q12HR [facility] Rx #:[id number] Oral 600 950 Output: Urine 1200 1200 Stool 200 Other: Voiding Method Indwelling Catheter Indwelling Catheter Indwelling Catheter # Bowel Movements 1 ABP, PAP, CO, CI - Last Documented Arterial Blood Pressure 120/65 - Exam GENERAL EXAM: Alert, very pleasant, obese 85-year-old male patient, on room air, resting comfortably in bed. HEAD: Normocephalic/atraumatic. EYES: Normal reaction of pupils, equal size. Conjunctiva pink, sclera white. NOSE: Clear with pink turbinates. THROAT: No erythema or exudates. NECK: No masses, no JVD, no thyroid enlargement, no adenopathy. CHEST: No chest wall deformity. Symmetrical expansion. LUNGS: Equal air entry with no crackles, wheeze, rhonchi or dullness. CVS: Regular rate and rhythm, normal S1 and S2, no gallops, no murmurs, no rubs ABDOMEN: Soft, nontender. Normal bowel sounds, no guarding or rigidity. Colostomy is in place which is functional, there is a another opening on the anterior lower abdominal wall with stool, none of it that is probably related to enteral cutaneous fascia EXTREMITIES: No clubbing, no edema, no cyanosis, 2+ pulses and upper and lower extremities. MUSCULOSKELETAL: Muscle strength and tone normal. SPINE: No scoliosis or deformity SKIN: No rashes, stage II pressure ulcer on the sacrum CENTRAL NERVOUS SYSTEM: No focal deficits, tone is normal in all 4 extremities. PSYCHIATRIC: Alert and oriented -3. Appropriate affect. Intact judgment and insight. - Labs CBC & Chem 7: 06/16/21 05:50 06/16/21 05:50 Labs: Abnormal Lab Results - Last 24 Hours (Table) 06/15/21 06/15/21 06/15/21 Range/Units 09:55 12:08 17:08 Hgb (13.0-17.0) g/dL Hct (39.6-50.0) % MCHC (32.0-37.0) g/dL RDW 16.3 H (11.5-15.5) % Plt Count 140 L (150-450) k/uL Absolute Nucleated RBC (0.00-0.00) X 10*3/uL Immature Gran # (0.00-0.04) X 10*3/uL Lymphocytes # 0.7 L (1.0-4.8) k/uL NRBC/100 WBC Diff (0.0-0.0) /100 WBCS BUN/Creatinine Ratio (12.00-20.00) Ratio Glucose (70-110) mg/dL POC Glucose (mg/dL) 138 H 159 H (75-99) mg/dL 06/15/21 06/16/21 06/16/21 Range/Units 20:10 05:50 05:50 Hgb 12.2 L (13.0-17.0) g/dL Hct 39.3 L (39.6-50.0) % MCHC 31.0 L (32.0-37.0) g/dL RDW 16.9 H (11.5-15.5) % Plt Count (150-450) k/uL Absolute Nucleated RBC 0.02 H (0.00-0.00) X 10*3/uL Immature Gran # 0.13 H (0.00-0.04) X 10*3/uL Lymphocytes # (1.0-4.8) k/uL NRBC/100 WBC Diff 0.3 H (0.0-0.0) /100 WBCS BUN/Creatinine Ratio 11.33 L (12.00-20.00) Ratio Glucose 127 H (70-110) mg/dL POC Glucose (mg/dL) 189 H (75-99) mg/dL 06/16/21 Range/Units 07:02 Hgb (13.0-17.0) g/dL Hct (39.6-50.0) % MCHC (32.0-37.0) g/dL RDW (11.5-15.5) % Plt Count (150-450) k/uL Absolute Nucleated RBC (0.00-0.00) X 10*3/uL Immature Gran # (0.00-0.04) X 10*3/uL Lymphocytes # (1.0-4.8) k/uL NRBC/100 WBC Diff (0.0-0.0) /100 WBCS BUN/Creatinine Ratio (12.00-20.00) Ratio Glucose (70-110) mg/dL POC Glucose (mg/dL) 121 H (75-99) mg/dL Microbiology - Last 24 Hours (Table) 06/11/21 21:20 Blood Culture - Preliminary Blood No Growth after 96 hours 06/14/21 18:31 Urine Culture - Preliminary Urine,Catheterized Assessment and Plan Assessment: 1. Acute febrile illness, hypotension and pain and along the sacral wound area. Consent underlying infection. The patient has had evaluation cultures of the wound clinic and a previous cultures from 01/16/2021 and showed Proteus and pseudomonas aeruginosa. Pro calcitonin level is elevated indicating an underlying bacterial infection. The patient is still on IV cefepime. ID is on the case. The patient has a deep tissue injury to his right buttocks. Cultures were negative. The cultures revealed no growth. Urine culture revealing no growth. 2. Acute lactic acidosis, improving 3. Hypotension, recovered 4. History of complicated diverticulitis with development of left ventricular abscesses most colectomy and diverting colostomy with subsequent multiple surgeries done at [place]. 5. History of abdominal sepsis with Pseudomonas and E. coli 6. 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 . The patient also has a history of deep tissue injury in the left buttocks. 7. Anterior abdominal wound, healing 8. 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 Prolonged hospitalization requiring intubation mechanical ventilation with subsequent decannulation and a tracheostomy site is dry clean and intact 10. Coronary artery disease 11. BPH 12. Diabetes mellitus 13. Hypertension 14. Hyperlipidemia 15. Morbid obesity with a BMI 32 16. Sedentary, nonambulatory, and the patient is essentially bedridden at this point in time 17. BPH 18. Nonobstructive left ureteral calculus 19. Episode of SVT overnight, received adenosine and the patient is currently on Cardizem drip at 5 mg an hour along with long-term medical condition with Xarelto. Currently back to sinus. Plan: The patient was seen and evaluated Labs and cultures reveal Stable and on room air Cleared for discharge from the pulmonary critical care standpoint Antibiotic coverage per ID service Continue follow-up in the wound Center I have personally seen and examined the patient, performed the documentation and the assessment and plan as written. Number of minutes spent on the visit: 10.
[2021-06-16 11:44] LABS: Glucose,Whole Blood 161 mg/dL (75-99)
--- NOTE | 2021-06-16 12:57 | P.PN ---
Subjective Progress Note Date: 06/16/21 CHIEF COMPLAINT: Sacral decubitus ulcer HISTORY OF PRESENT ILLNESS: Patient lying in bed comfortably. He denies any abdominal pain. Patient's ostomy is functioning. 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 There is some stool and blood noted. Patient denies any nausea or vomiting. Tolerating diet. Afebrile. He is asking when he can go home. WBC 7.7 hemoglobin 12.2 Patient seen and examined with Dr. sr PHYSICAL EXAM: VITAL SIGNS: Reviewed. GENERAL: Well-developed in no acute distress. HEENT: No sclera icterus. Extraocular movements grossly intact. Moist buccal mucosa. Head is atraumatic, normocephalic. ABDOMEN: Soft. Obese. Nondistended. So left-sided abdomen has evidence of a mucous fistula with stool and some blood. There is skin irritation around the mucous fistula that is bleeding. Ostomy on the right is functioning. Patient does have skin irritation with scabs noted on the right middle abdomen reported as chronic. NEUROLOGIC: Alert and oriented. Cranial nerves II through XII grossly intact. ASSESSMENT: 1. 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 The maroon-colored stool from the mucous fistula is likely due to bleeding from the skin irritation around the mucous fistula. 2. Chronic sacral decubitus ulcer will PLAN: -Fleet enema ordered to help relieve the fecaloma -No surgical intervention planned -Continue supportive care -Ostomy and mucous fistula working appropriately Physician Curing Oven Attendant note has been reviewed by physician. Signing provider agrees with the documented findings, assessment, and plan of care. Objective - Vital Signs Vital signs: Vital Signs Temp 97.5 F L 06/16/21 04:34 Pulse 67 06/16/21 08:22 Resp 16 06/16/21 04:34 BP 138/72 06/16/21 08:22 Pulse Ox 95 06/16/21 04:34 Intake & Output 06/15/21 06/16/21 06/16/21 18:59 06:59 18:59 Intake Total 600 1050 Output Total 1400 1200 Balance -800 -150 Weight 115.6 kg Intake: IV 100 Cefepime 2 gm In Sodium 100 Chloride 0.9% 100 ml @ 25 mls/hr IVPB Q12HR [facility] Rx #:[id number] Oral 600 950 Output: Urine 1200 1200 Stool 200 Other: Voiding Method Indwelling Catheter Indwelling Catheter Indwelling Catheter # Bowel Movements 1 ABP, PAP, CO, CI - Last Documented Arterial Blood Pressure 120/65 - Labs CBC & Chem 7: 06/16/21 05:50 06/16/21 05:50 Labs: Abnormal Lab Results - Last 24 Hours (Table) 06/15/21 06/15/21 06/15/21 Range/Units 09:55 17:08 20:10 Hgb (13.0-17.0) g/dL Hct (39.6-50.0) % MCHC (32.0-37.0) g/dL RDW 16.3 H (11.5-15.5) % Plt Count 140 L (150-450) k/uL Absolute Nucleated RBC (0.00-0.00) X 10*3/uL Immature Gran # (0.00-0.04) X 10*3/uL Lymphocytes # 0.7 L (1.0-4.8) k/uL NRBC/100 WBC Diff (0.0-0.0) /100 WBCS BUN/Creatinine Ratio (12.00-20.00) Ratio Glucose (70-110) mg/dL POC Glucose (mg/dL) 159 H 189 H (75-99) mg/dL 06/16/21 06/16/21 06/16/21 Range/Units 05:50 05:50 07:02 Hgb 12.2 L (13.0-17.0) g/dL Hct 39.3 L (39.6-50.0) % MCHC 31.0 L (32.0-37.0) g/dL RDW 16.9 H (11.5-15.5) % Plt Count (150-450) k/uL Absolute Nucleated RBC 0.02 H (0.00-0.00) X 10*3/uL Immature Gran # 0.13 H (0.00-0.04) X 10*3/uL Lymphocytes # (1.0-4.8) k/uL NRBC/100 WBC Diff 0.3 H (0.0-0.0) /100 WBCS BUN/Creatinine Ratio 11.33 L (12.00-20.00) Ratio Glucose 127 H (70-110) mg/dL POC Glucose (mg/dL) 121 H (75-99) mg/dL 06/16/21 Range/Units 11:42 Hgb (13.0-17.0) g/dL Hct (39.6-50.0) % MCHC (32.0-37.0) g/dL RDW (11.5-15.5) % Plt Count (150-450) k/uL Absolute Nucleated RBC (0.00-0.00) X 10*3/uL Immature Gran # (0.00-0.04) X 10*3/uL Lymphocytes # (1.0-4.8) k/uL NRBC/100 WBC Diff (0.0-0.0) /100 WBCS BUN/Creatinine Ratio (12.00-20.00) Ratio Glucose (70-110) mg/dL POC Glucose (mg/dL) 161 H (75-99) mg/dL Microbiology - Last 24 Hours (Table) 06/14/21 18:31 Urine Culture - Final Urine,Catheterized 06/11/21 21:20 Blood Culture - Preliminary Blood No Growth after 96 hours
--- NOTE | 2021-06-16 14:47 | P.PN ---
Subjective Progress Note Date: 06/16/21 85-year-old pleasant male lives at home mostly bedbound came in because of fever and chills. Patient was admitted to along the primary care physician because of which patient was not seen by internal medicine service under today. Patient's sepsis is believed to be secondary to decubitus ulcer which is stage III appear to be infected wound care is following the patient infectious disease following the patient patient is presently on cefepime. The patient has significant of bilateral lower leg extremity muscle atrophy with some swelling in the bilateral lower extremities. Patient was hypotensive was receiving IV fluids which are discontinued. Patient has Pseudomonas and Proteus mirabilis in January 2021 in the wounds. Patient's immobility A1c is 14.6 and blood sugars are still elevated and starting him on long-acting insulin along with his sliding scale he is getting right now. Patient is presently not in pain. Pain is pretty much well controlled at this time. On Keldron as well patient is tolerating these medications because of which I'm not changing his medications. Patient was in a lot of pain when he came in. The patient is also on lactulose for constipation patient has 2 colostomies in which he was having some stool. 06/14/2021 Patient evaluated today on the medical floor was moved out of the ICU. He is alert and oriented x3, slept well last night. Reports his bottom is sore, positional. Colostomies are intact both functioning with stool present. Patient had a heart rate up into the 170's last night per RN, EKG in chart shows SVT with heart rate in the 170s also from June 11. Metoprolol has been increased this admission. Labs today show WBC 6.9, hgb stable at 12.2, sodium 136, potassium 4.2, blood sugars stable in the 120s. TSH was checked yesterday, WNL at 2.310. Patient did spike a temp this morning 100.1, and low grade fever yesterday morning. Heart rate 93, blood pressure 155/74, 92-93% on 2l nasal cannula. Continues on IV cefepime. Multiple consultations including infectious disease, pulmonary/bird keeper, pending cardiology evaluation today. 06/15/2021 Patient is evaluated today during bed bath. Skin assessment reveals significant intertrigo in bilatera groin folds, recommended to cleanse with warm soapy water use nystatin powder and can use innerdry sheets, will add some cream. patient is being followed by wound care and infectious disease. Local wound care to sacrum with aquacel currently recommended. Continues on IV cefepime while cutures finalize. Repeat urinalysis yesterday and urine culture is currently pending. Blood culture negative so far. Bilateral ostomy site intact with left ostomy brown/maroon drainage and right ostomy with light brown soft stool present. Chronic nazario catheter draining, slightly cloudy as compared to yesterday. No shortness of breath, no chest pain. Sinus bradycarda in the 50's, no tachycardia throughout the evening continues on increased dose of metoprolol 37.5, followed closely by cardiology. Afebrile, blood pressure 116/69, 93% on room air. 06/16/2021 Patient is seen and evaluated in follow-up today. Multiple medical consultations including surgery, pulmonary, wounds, cardiology following closely along with infectious disease. Patient is maintained on IV cefepime and will continue. Most recent blood and wound along with urine cultures have been negative. Patient is extremely weak and working with physical therapy daily. Patient to continue with local wound care and ID recommendations. There is stool noted in the ostomy and general surgery was consulted or some blood noted in the stool. No plans for surgical intervention and a Fleet enema was ordered as he is noted to have a mucous fistula on the left side that also appears irritated around and continued on local wound care. Initial interview with case management revealed that the patient would like to go home with family and does have support in the home and will await PT/OT therapy notes to discuss possible ECF. Patient is afebrile and denies shortness of breath or chest pain. Hemoglobin is stable at 12.2. REVIEW OF SYSTEMS: CONSTITUTIONAL: no malaise, no fatigue. HEENT: No recent visual problems or hearing problems. Denied any sore throat. CARDIOVASCULAR: No chest pain, orthopnea, PND, no palpitations, no syncope. PULMONARY: No shortness of breath, no cough, no hemoptysis. GASTROINTESTINAL/UROLOGICAL: No diarrhea, no nausea, no vomiting, no abdominal pain. No dysuria, urgency, suprapubic pain or tenderness. All inpatient medications reviewed and appropriate. Active Medications Acetaminophen (Acetaminophen Tab 325 Mg Tab) 650 mg PO Q6HR PRN PRN Reason: Mild Pain or Fever > 100.5 Last Admin: 06/11/21 23:03 Dose: 650 mg Documented by: Hydrocodone Bitart/Acetaminophen (Hydrocodone/Apap 10-325mg 1 Each Tab) 1 each PO TID PRN PRN Reason: Pain Last Admin: 06/16/21 12:06 Dose: 1 each Documented by: Albuterol/Ipratropium (Ipratropium-Albuterol 3 Ml Neb) 3 ml INHALATION RT-Q6H PRN PRN Reason: Shortness Of Breath Alprazolam (Alprazolam 0.25 Mg Tab) 0.25 mg PO TID PRN PRN Reason: Anxiety Last Admin: 06/13/21 09:00 Dose: 0.25 mg Documented by: Amlodipine Besylate (Amlodipine 2.5 Mg Tab) 2.5 mg PO HS@1999 [facility] Last Admin: 06/15/21 19:18 Dose: 2.5 mg Documented by: Aspirin (Aspirin 81 Mg) 81 mg PO DAILY@0800 [facility] Last Admin: 06/16/21 08:29 Dose: 81 mg Documented by: Atorvastatin Calcium (Atorvastatin 20 Mg Tab) 20 mg PO HS@1999 [facility] Last Admin: 06/15/21 19:18 Dose: 20 mg Documented by: Baclofen (Baclofen 10 Mg Tab) 5 mg PO BID@799,1999 [facility] Last Admin: 06/16/21 08:29 Dose: 5 mg Documented by: Docusate Sodium (Docusate 100 Mg Cap) 100 mg PO TID@0800,1699,1999 [facility] Last Admin: 06/16/21 08:29 Dose: 100 mg Documented by: Ferrous Sulfate (Ferrous Sulfate 325 Mg Tab) 325 mg PO DAILY@0800 [facility] Last Admin: 06/16/21 08:29 Dose: 325 mg Documented by: Hydromorphone HCl (Hydromorphone 0.5 Mg/0.5 Ml Syringe) 0.5 mg IVP Q3HR PRN PRN Reason: Moderate Pain Last Admin: 06/12/21 00:16 Dose: 0.5 mg Documented by: Hydromorphone HCl (Hydromorphone 1 Mg/Ml 1 Ml Syringe) 1 mg IVP Q3HR PRN PRN Reason: Severe Pain Last Admin: 06/15/21 19:20 Dose: 1 mg Documented by: Cefepime HCl 2 gm/ Sodium (Chloride) 100 mls @ 25 mls/hr IVPB Q12HR [facility]; Protocol Last Admin: 06/16/21 08:28 Dose: 25 mls/hr Documented by: Sodium Chloride (Saline 0.9%) 1,000 mls @ 20 mls/hr IV .Q24H [facility] Last Admin: 06/15/21 17:28 Dose: Not Given Documented by: Insulin Aspart (Insulin Aspart (Novolog) 100 Unit/Ml Vial) 0 unit SQ ACHS [facility]; Protocol Last Admin: 06/16/21 12:07 Dose: 2 unit Documented by: Insulin Detemir (Insulin Detemir (Levemir) 100 Unit/Ml Syr) 10 unit SQ HS [facility] Last Admin: 06/15/21 20:24 Dose: 10 unit Documented by: Lactulose (Lactulose 20 Gm/30 Ml Cup) 10 gm PO BID PRN PRN Reason: Constipation Levothyroxine Sodium (Levothyroxine 100 Mcg Tab) 100 mcg PO DAILY@0800 [facility] Last Admin: 06/16/21 08:29 Dose: 100 mcg Documented by: Lorazepam (Lorazepam 2 Mg/Ml Inj) 0.5 mg IV Q6HR PRN PRN Reason: Anxiety Melatonin (Melatonin 3 Mg Tablet) 3 mg PO HS PRN PRN Reason: Insomnia Metoprolol Tartrate (Metoprolol Tartrate 12.5 Mg Tab) 37.5 mg PO BID [facility] Last Admin: 06/16/21 08:28 Dose: 37.5 mg Documented by: Multi-Ingred Cream/Lotion/Oil/Oint (Hydrophilic Cream 180 Gm Tube) 1 applic TOPICAL DAILY [facility]; Protocol Last Admin: 06/16/21 08:29 Dose: 1 applic Documented by: Multivitamins (Multivitamins, Thera 1 Each Tab) 1 each PO DAILY@0800 [facility] Last Admin: 06/16/21 08:29 Dose: 1 each Documented by: Naloxone HCl (Naloxone 0.4 Mg/Ml 1 Ml Vial) 0.2 mg IV Q2M PRN PRN Reason: Opioid Reversal Nitroglycerin (Nitroglycerin Sl Tabs 0.4 Mg Tab) 0.4 mg SUBLINGUAL Q5M PRN PRN Reason: Chest Pain Ondansetron HCl (Ondansetron 4 Mg/2 Ml Vial) 4 mg IVP Q8HR PRN PRN Reason: Nausea And Vomiting Pantoprazole Sodium (Pantoprazole 40 Mg Tablet) 40 mg PO AC-BRKFST [facility] Last Admin: 06/16/21 08:29 Dose: 40 mg Documented by: Pregabalin (Pregabalin 100 Mg Cap) 100 mg PO BID@799,1999 [facility] Last Admin: 06/16/21 08:29 Dose: 100 mg Documented by: Rivaroxaban (Rivaroxaban 10 Mg Tab) 10 mg PO DAILY@170 [facility]; Protocol Last Admin: 06/15/21 17:54 Dose: 10 mg Documented by: Tamsulosin HCl (Tamsulosin 0.4 Mg Cap.Er.24h) 0.4 mg PO HS@1999 [facility] Last Admin: 06/15/21 19:18 Dose: 0.4 mg Documented by: PHYSICAL EXAMINATION: GENERAL: The patient is alert and oriented x3, not in any acute distress, obese HEENT: Pupils are round and equally reacting to light. EOMI. No scleral icterus. No conjunctival pallor. Normocephalic, atraumatic. No pharyngeal erythema. No thyromegaly. CARDIOVASCULAR: S1 and S2 muffled. Irregularly irregular rhythm PULMONARY: Diminished breath sounds bilaterally with some scattered rhonchi noted.. ABDOMEN: Soft, nontender, nondistended, normoactive bowel sounds. No palpable organomegaly. And has [address] MUSCULOSKELETAL: No joint swelling or deformity. EXTREMITIES: No cyanosis, clubbing, he does have a 1-2+ pitting pedal edema NEUROLOGICAL: Gross neurological examination did not reveal any focal deficits. Diffuse weakness SKIN: Colostomy x2, adbominal dressing intact. Deferred sacral decub exam. Intertrigo as described above to bilateral groin folds. Assessment: -Sepsis probably secondary to sacral decub ulcers: wound cultures are pending, previous history of pseudomonas and proteus in the wound, for now IV cefepime while cultures finalize, ID following -Ruled out urinary tract infection, urinalysis is negative, patient does have chronic nazario -Lactic acidosis, present on admission secondary to to sepsis, improved -Hypervolemic hyponatremia patient does have some pedal edema, sodium has improved, IV fluids decreased and dyspnea improved -Type 2 diabetes mellitus uncontrolled with hyperglycemia -History of diverticultis with bowel perforation, multiple abdominal surgeries; patient has [address] with chronic abdominal wound. -Coronary artery disease status post stenting and CABG in 2016 -Benign prostatic hypertrophy -History of mechanical intubation presently has a tracheostomy site is clean -Hypertension which resolved at this time -Acute renal failure resolved and this is secondary to prerenal azotemia and sepsis -Hypertension -Hyperlipidemia -Obesity -Deconditioning and chronic debility mostly bedbound -Atrial fibrillation chronic presently in sinus bradycardia is on anticoagulation with Xarelto, medication changes per cardiology -Periods of SVT, metoprolol was increased and patient is being followed closely by cardiology -History hypothyroidism, TSH stable -History CVA/TIA -DVT prophylaxis: On Xarelto -GI Prophylaxis: Protonix -Full Code Plan: Recommend continue with current medications and management. Multiple medical consultations following including infectious disease, pulmonary, general surgery. Patient is maintained on IV cefepime and will continue. Blood and urine cultures have been negative. Patient to be given an enema per surgical recommendations with no plans of surgical interventions at this time. Monitor output of ostomies any further bleeding. Recommend repeat labs in the morning and will continue to monitor closely. Due to multiple complex medical issues, prognosis is guarded. Case management following as well and will discuss further about discharge planning as patient would like to return home although is quite weak and currently awaiting PT/OT therapy notes. The impression and plan of care has been dictated by Shey Lu, nurse practitioner as directed. MD Chad I have performed a history and examination and MDM of this patient, discussed the same with the dictator, and agree with the dictator's assessment and plan as written ,documented as a scribe. Based on total visit time, I have performed more than 50% of the visit. Total number of and it spent on this visit, 20 minutes. Any additional findings or plans will be noted. Objective - Vital Signs Vital signs: Vital Signs Temp 97.5 F L 06/16/21 04:34 Pulse 67 06/16/21 08:22 Resp 16 06/16/21 04:34 BP 138/72 06/16/21 08:22 Pulse Ox 95 06/16/21 04:34 Intake & Output 06/15/21 06/16/21 06/16/21 18:59 06:59 18:59 Intake Total 600 1050 Output Total 1400 1200 Balance -800 -150 Intake: IV 100 Cefepime 2 gm In Sodium 100 Chloride 0.9% 100 ml @ 25 mls/hr IVPB Q12HR [facility] Rx #:[id number] Oral 600 950 Output: Urine 1200 1200 Stool 200 Other: Voiding Method Indwelling Catheter Indwelling Catheter # Bowel Movements 1 ABP, PAP, CO, CI - Last Documented Arterial Blood Pressure 120/65 - Labs CBC & Chem 7: 06/16/21 05:50 06/16/21 05:50 Labs: Abnormal Lab Results - Last 24 Hours (Table) 06/15/21 06/15/21 06/15/21 Range/Units 09:55 09:55 12:08 Hgb (13.0-17.0) g/dL Hct (39.6-50.0) % MCHC (32.0-37.0) g/dL RDW 16.3 H (11.5-15.5) % Plt Count 140 L (150-450) k/uL Absolute Nucleated RBC (0.00-0.00) X 10*3/uL Immature Gran # (0.00-0.04) X 10*3/uL Lymphocytes # 0.7 L (1.0-4.8) k/uL NRBC/100 WBC Diff (0.0-0.0) /100 WBCS Sodium 135 L (137-145) mmol/L Glucose 158 H (74-99) mg/dL POC Glucose (mg/dL) 138 H (75-99) mg/dL 06/15/21 06/15/21 06/16/21 Range/Units 17:08 20:10 05:50 Hgb 12.2 L (13.0-17.0) g/dL Hct 39.3 L (39.6-50.0) % MCHC 31.0 L (32.0-37.0) g/dL RDW 16.9 H (11.5-15.5) % Plt Count (150-450) k/uL Absolute Nucleated RBC 0.02 H (0.00-0.00) X 10*3/uL Immature Gran # 0.13 H (0.00-0.04) X 10*3/uL Lymphocytes # (1.0-4.8) k/uL NRBC/100 WBC Diff 0.3 H (0.0-0.0) /100 WBCS Sodium (137-145) mmol/L Glucose (74-99) mg/dL POC Glucose (mg/dL) 159 H 189 H (75-99) mg/dL 06/16/21 Range/Units 07:02 Hgb (13.0-17.0) g/dL Hct (39.6-50.0) % MCHC (32.0-37.0) g/dL RDW (11.5-15.5) % Plt Count (150-450) k/uL Absolute Nucleated RBC (0.00-0.00) X 10*3/uL Immature Gran # (0.00-0.04) X 10*3/uL Lymphocytes # (1.0-4.8) k/uL NRBC/100 WBC Diff (0.0-0.0) /100 WBCS Sodium (137-145) mmol/L Glucose (74-99) mg/dL POC Glucose (mg/dL) 121 H (75-99) mg/dL Microbiology - Last 24 Hours (Table) 06/11/21 21:20 Blood Culture - Preliminary Blood No Growth after 96 hours 06/14/21 18:31 Urine Culture - Preliminary Urine,Catheterized
[2021-06-16] MEDS: SODIUM CHLORIDE 0.9% 1,000 ML IV SCH (14:57)
[2021-06-16 17:12] LABS: Glucose,Whole Blood 146 mg/dL (75-99)
[2021-06-16] MEDS: RIVAROXABAN 10 MG TAB PO SCH (17:34)
[2021-06-16] MEDS: ATORVASTATIN 20 MG TAB PO SCH (19:10)
[2021-06-16] MEDS: TAMSULOSIN 0.4 MG CAP.ER.24H PO SCH (19:10)
[2021-06-16] MEDS: amLODIPine 2.5 MG TAB PO SCH (19:11)
[2021-06-16 20:29] LABS: Glucose,Whole Blood 109 mg/dL (75-99)
[2021-06-16] MEDS: INSULIN DETEMIR (LEVEMIR) 100 UNIT/ML SYR SQ SCH (20:50)
[2021-06-16] MEDS: HYDROmorphone 1 MG/ML 1 ML SYRINGE IVP PRN (21:44)
--- NOTE | 2021-06-16 22:16 | P.PN ---
Subjective Progress Note Date: 06/15/21 Principal diagnosis: Fever and sacral pressure ulcer Patient is 85-year-old male with a past medical history of for complicated diverticulitis: Multiple surgeries currently to have a mucous fistula and colostomy and did have a history of chronic non-healing wound to the sacral area, patient presented to hospital with abdominal pain and fever. On today's evaluation that is 06/15/2021, the patient is afebrile today, the patient is more awake and alert today, patient is breathing comfortably on nasal oxygen and the patient denies having any chest pain shortness of breath or cough no abdominal pain Objective - Vital Signs Vital signs: Vital Signs Temp 98.1 F 06/15/21 11:01 Pulse 57 L 06/15/21 11:01 Resp 16 06/15/21 11:01 BP 131/71 06/15/21 11:01 Pulse Ox 93 L 06/15/21 11:01 Intake & Output 06/14/21 06/15/21 06/15/21 18:59 06:59 18:59 Intake Total 590 600 Output Total 1100 1900 200 Balance -1100 -1310 400 Intake: Oral 590 600 Output: Urine 1100 1900 Stool 200 Other: Voiding Method Indwelling Catheter Indwelling Catheter Indwelling Catheter ABP, PAP, CO, CI - Last Documented Arterial Blood Pressure 120/65 - Exam GENERAL DESCRIPTION: An elderly male lying in bed in no distress RESPIRATORY SYSTEM: Unlabored breathing , decreased breath sounds at bases HEART: S1 S2 regular rate and rhythm , ABDOMEN: Soft , no tenderness EXTREMITIES: Diffuse swelling to the leg no drainage - Labs CBC & Chem 7: 06/16/21 05:50 06/16/21 05:50 Labs: Abnormal Lab Results - Last 24 Hours (Table) 06/14/21 06/14/21 06/14/21 Range/Units 17:32 18:31 20:56 RDW (11.5-15.5) % Plt Count (150-450) k/uL Lymphocytes # (1.0-4.8) k/uL Sodium (137-145) mmol/L Glucose (74-99) mg/dL POC Glucose (mg/dL) 167 H 139 H (75-99) mg/dL Urine Protein 1+ H (Negative) Urine Blood Small H (Negative) Ur Leukocyte Esterase Small H (Negative) Urine RBC 6 H (0-5) /hpf Urine WBC 9 H (0-5) /hpf Urine Mucus Occasional H (None) /hpf 06/15/21 06/15/21 06/15/21 Range/Units 06:59 09:55 09:55 RDW 16.3 H (11.5-15.5) % Plt Count 140 L (150-450) k/uL Lymphocytes # 0.7 L (1.0-4.8) k/uL Sodium 135 L (137-145) mmol/L Glucose 158 H (74-99) mg/dL POC Glucose (mg/dL) 112 H (75-99) mg/dL Urine Protein (Negative) Urine Blood (Negative) Ur Leukocyte Esterase (Negative) Urine RBC (0-5) /hpf Urine WBC (0-5) /hpf Urine Mucus (None) /hpf 06/15/21 Range/Units 12:08 RDW (11.5-15.5) % Plt Count (150-450) k/uL Lymphocytes # (1.0-4.8) k/uL Sodium (137-145) mmol/L Glucose (74-99) mg/dL POC Glucose (mg/dL) 138 H (75-99) mg/dL Urine Protein (Negative) Urine Blood (Negative) Ur Leukocyte Esterase (Negative) Urine RBC (0-5) /hpf Urine WBC (0-5) /hpf Urine Mucus (None) /hpf Microbiology - Last 24 Hours (Table) 06/11/21 21:20 Blood Culture - Preliminary Blood No Growth after 72 hours 06/12/21 13:00 Gram Stain - Final Buttock Wound Culture - Final Assessment and Plan (1) Fever Current Visit: Yes Status: Acute Code(s): R50.9 - FEVER, UNSPECIFIED SNOMED Code(s): 381893360 Plan: 1patient presented to hospital with abdominal pain in this patient also have a fever patient did have CT of abdominal pelvis completed with evidence of left distal ureteral stone however the patient urine was not significantly positive could be related to possible obstructing kidney but no significant hydronephrosis, the other source of the fever could have been sacral pressure ulcer with secondary cellulitis in view of the patient responding to cefepime could be dealing with a gram-negative pathogen. 2repeat UA mildly positive however culture are currently pending 3continue with the cefepime 2 g every 12 hours While waiting for the cultures to finalize 4local wound care to the sacral wound with a dry Aquacel silver dressing and keep the area dry and of the pressure Time with Patient: Less than 30
--- NOTE | 2021-06-16 22:18 | P.PN ---
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 On today's evaluation that is 06/16/2021, the patient remains to be afebrile, the patient is awake and alert and awake to his baseline, patient is breathing comfortably on nasal oxygen and the patient denies having any chest pain shortness of breath or cough no abdominal pain and denies pain to the sacral wound area Objective - Vital Signs Vital signs: Vital Signs Temp 98.1 F 06/16/21 13:00 Pulse 55 L 06/16/21 13:00 Resp 20 06/16/21 13:00 BP 149/71 06/16/21 13:00 Pulse Ox 95 06/16/21 13:00 Intake & Output 06/15/21 06/16/21 06/16/21 18:59 06:59 18:59 Intake Total 600 1050 Output Total 1400 1200 Balance -800 -150 Weight 115.6 kg Intake: IV 100 Cefepime 2 gm In Sodium 100 Chloride 0.9% 100 ml @ 25 mls/hr IVPB Q12HR [facility] Rx #:[id number] Oral 600 950 Output: Urine 1200 1200 Stool 200 Other: Voiding Method Indwelling Catheter Indwelling Catheter Indwelling Catheter # Bowel Movements 1 ABP, PAP, CO, CI - Last Documented Arterial Blood Pressure 120/65 - Exam GENERAL DESCRIPTION: An elderly male lying in bed in no distress RESPIRATORY SYSTEM: Unlabored breathing , decreased breath sounds at bases HEART: S1 S2 regular rate and rhythm , ABDOMEN: Soft , no tenderness EXTREMITIES: Diffuse swelling to the leg no drainage - Labs CBC & Chem 7: 06/16/21 05:50 06/16/21 05:50 Labs: Abnormal Lab Results - Last 24 Hours (Table) 06/15/21 06/15/21 06/16/21 Range/Units 17:08 20:10 05:50 Hgb 12.2 L (13.0-17.0) g/dL Hct 39.3 L (39.6-50.0) % MCHC 31.0 L (32.0-37.0) g/dL RDW 16.9 H (11.5-14.5) % Absolute Nucleated RBC 0.02 H (0.00-0.00) X 10*3/uL Immature Gran # 0.13 H (0.00-0.04) X 10*3/uL NRBC/100 WBC Diff 0.3 H (0.0-0.0) /100 WBCS BUN/Creatinine Ratio (12.00-20.00) Ratio Glucose (70-110) mg/dL POC Glucose (mg/dL) 159 H 189 H (75-99) mg/dL 06/16/21 06/16/21 06/16/21 Range/Units 05:50 07:02 11:42 Hgb (13.0-17.0) g/dL Hct (39.6-50.0) % MCHC (32.0-37.0) g/dL RDW (11.5-14.5) % Absolute Nucleated RBC (0.00-0.00) X 10*3/uL Immature Gran # (0.00-0.04) X 10*3/uL NRBC/100 WBC Diff (0.0-0.0) /100 WBCS BUN/Creatinine Ratio 11.33 L (12.00-20.00) Ratio Glucose 127 H (70-110) mg/dL POC Glucose (mg/dL) 121 H 161 H (75-99) mg/dL Microbiology - Last 24 Hours (Table) 06/14/21 18:31 Urine Culture - Final Urine,Catheterized 06/11/21 21:20 Blood Culture - Preliminary Blood No Growth after 96 hours Assessment and Plan (1) Fever Current Visit: Yes Status: Acute Code(s): R50.9 - FEVER, UNSPECIFIED SNOMED Code(s): 359823109 Plan: 1patient presented to hospital with abdominal pain in this patient also have a fever patient did have CT of abdominal pelvis completed with evidence of left distal ureteral stone however the patient urine was not significantly positive could be related to possible obstructing kidney but no significant hydronephrosis, the other source of the fever could have been sacral pressure ulcer with secondary cellulitis in view of the patient responding to cefepime could be dealing with a gram-negative pathogen. 2repeat UA mildly positive however urine culture, blood as well as sacral cultures are negative 3 patient to continue with the cefepime 2 g every 12 hours however we'll be able to finish therapy with oral Ceftin short course 4local wound care to the sacral wound with a dry Aquacel silver dressing and keep the area dry and of the pressure Time with Patient: Less than 30
[2021-06-17] MEDS: HYDROmorphone 1 MG/ML 1 ML SYRINGE IVP PRN ×3 (02:36→11:57)
[2021-06-17 04:48] VITALS: PULSE 60
[2021-06-17] MEDS: HYDROcodone/APAP 10-325MG 1 EACH TAB PO PRN ×2 (05:38→13:49)
[2021-06-17 07:24] LABS: Glucose,Whole Blood 113 mg/dL (75-99)
[2021-06-17] MEDS: INSULIN ASPART (NovoLOG) 100 UNIT/ML VIAL SQ SCH (08:50)
[2021-06-17] MEDS: DOCUSATE 100 MG CAP PO SCH (09:10)
[2021-06-17] MEDS: METOPROLOL TARTRATE 12.5 MG TAB PO SCH (09:10)
[2021-06-17] MEDS: LEVOTHYROXINE 100 MCG TAB PO SCH (09:11)
[2021-06-17] MEDS: PANTOPRAZOLE 40 MG TABLET PO SCH (09:11)
[2021-06-17] MEDS: BACLOFEN 10 MG TAB PO SCH (09:11)
[2021-06-17] MEDS: PREGABALIN 100 MG CAP PO SCH (09:11)
[2021-06-17] MEDS: ASPIRIN 81 MG PO SCH (09:11)
[2021-06-17] MEDS: MULTIVITAMINS, THERA 1 EACH TAB PO SCH (09:11)
[2021-06-17] MEDS: FERROUS SULFATE 325 MG TAB PO SCH (09:11)
[2021-06-17] MEDS: HYDROPHILIC CREAM 180 GM TUBE TOPICAL SCH (09:12)
[2021-06-17] MEDS: CEFEPIME 2 GM in SODIUM CHLORIDE 0.9% 100 ML IVPB SCH (09:12)
--- NOTE | 2021-06-17 11:55 | P.PN ---
Subjective Progress Note Date: 06/17/21 This 85-year-old male patient came into the ED complaining of pain at the level of his chronic sacral wounds. Emergency department stated that he had abdominal pain. Nevertheless, the patient states that he has no pain in his abdomen and all of his pain was in the sacrum area as the patient has been essentially bedridden and has been is back for the past 3 years and he has a chronic ulcer/wound in that area. The patient's is currently at home. He has been various nursing homes in the past and the patient currently is being taken care of by his . His been bedridden since September 2020. He had a fever of 104. For further evaluation and investigation. The patient was slightly tachycardic with a heart rate of 119 and up onto 83. Blood pressure was soft at 100/50 mmHg and at one point he was even lower than that and responded to fluids. The patient was given Dilaudid for pain control, he was given 1 mg of Dilaudid in the ED. apparently his pain was excruciating and he was crying out from his pain. He was given 2 g IV Rocephin. His lactic acid levels were elevated and was as high as 5.4 and dropped down to 3.5. His white cell count is at 8.6 with hemoglobin of 14.6 and a platelet count of 190. Normal correlation profile. BUN is at 20 with a creatinine of 1.2 and the sodium level of 137. Glucose was 208. Troponin was 0.1 cm respectively. COVID 19 testing was negative. In fluenza screen was negative. UA was negative. LFTs were essentially within normal limits. Chest x-ray showed no acute abnormalities. CAT scan of the abdomen and pelvis was also completed and showed decubitus skin thickening over the sacrum without evidence of ulceration or erosion. There was also a distal ureter 7 mm lesion without evidence of any hydronephrosis. There was prostate enlargement and anterior abdominal wall ostomy not significantly changed. No headaches and altered mentation at this point in time. This morning, the patient is quite comfortable. He has not spiked any fevers since and his lactic acid level is also improving.. The patient has no nausea. No emesis. No d iarrhea. Also, the patient had episode of SVT overnight, received adenosine and the patient is currently on Cardizem drip at 5 mg an hour along with long- term medical condition with Xarelto. Currently back to sinus. On today's evaluation of 06/13/2021, I'm seeing the patient for a follow-up. Stan king is doing well. The patient is hemodynamically stable. Cardiac rhythm is sinus. The patient has taken a Cardizem drip at 5 mg an hour throughout the night yesterday and this will be weaned off and discontinued today. Cardiac rhythm is sinus. He is afebrile. He is hemodynamically stable. His communicating. No respiratory distress. The patient remains on IV cefepime. The patient's white cell count of 7.9 with a hemoglobin of 11.8. Sodium is at 133, BUN is at 60 with a creatinine of 1.04. Glucose is at 208. The patient had a lactic acid level which is down to 3.5. The patient's pro calcitonin level was at 67. Based on previous cultures, I put the patient IV cefepime The patient has had previous history of Proteus and Pseudomonas in the wound cultures. At the same time, there were prior cultures that indicating Enterococcus faecalis and MRSA. One services have been consulted. The patient is doing well. His communicating. His bedridden as mentioned. All of his outp atient medications and resume. No altered mentation. He is communicating effectively. Hemoglobin is stable at 11.8 and the patient continues to be on Xarelto. 06/14/2021, the patient is transferred out of the intensive care unit. His pro calcitonin level is improving and the patient was given IV cefepime by infectious disease. No new complaints. He had a low-grade temperature today. Wound care is being performed. IVs on the case. No active respiratory difficulties and the patient is currently on room air oxygen. The blood work from today shows a white cell count of 6.9 with a hemoglobin of 12.2 and BUN is at 14 with a creatinine of 0.87. On 06/15/2021 patient seen in follow-up on medical surgical floor, he is resting comfortably in bed, he is on room air, denies any pulmonary symptoms, no cough, no shortness of breath, room air pulse ox 93%, hemodynamically he is stable. She remains on antibiotics for sepsis with a possibility of wound infection. However his blood and sacral wound cultures are negative. Denies any chest pain or pressure. Low-grade fever in the last 24 hours. The patient is seen today 06/16/2021 in follow-up on the regular medical floor. He is currently resting comfortably in bed. Awake and alert in no acute distress. He is maintaining O2 saturations in the 90s on room air. He's been hemodynamically stable. He's been afebrile. He remains on cefepime. Blood cultures reveals no growth. Wound culture from the buttocks reveals no growth. Urine culture revealed no growth. White count 7.7. Hemoglobin 12.2. Sodium 138. Potassium 3.8. Creatinine 0.9. Glucose 127. Anticoagulated with Xarelto. The patient is seen today 06/17/2021 in follow-up on the regular medical floor. He continues to rest quite comfortably in bed. Awake and alert in no acute distress. Maintaining O2 saturations in the mid 90s on room air. He remains afebrile. Urine culture revealed no growth. Wound culture from the buttocks revealed no growth. Blood cultures reveal no growth. Blood glucose 113. He remains on DuoNeb inhalations. Anticoagulated with Xarelto. Antibiotics in the form of cefepime. Objective - Vital Signs Vital signs: Vital Signs Temp 97.7 F 06/17/21 04:10 Pulse 60 06/17/21 04:10 Resp 20 06/17/21 04:10 BP 119/63 06/17/21 04:10 Pulse Ox 96 06/17/21 04:10 Intake & Output 06/16/21 06/17/21 06/17/21 18:59 06:59 18:59 Intake Total 540 1040 Output Total 1200 Balance 540 -160 Weight 115.6 kg Intake: IV 100 Cefepime 2 gm In Sodium 100 Chloride 0.9% 100 ml @ 25 mls/hr IVPB Q12HR [facility] Rx #:[id number] Intake, IV Titration 100 Amount Sodium Chloride 0.9% 1, 100 000 ml @ 20 mls/hr IV . Q24H [facility] Rx#:[id number] Oral 540 840 Output: Urine 1200 Uretheral (Bishop) 1200 Other: Voiding Method Indwelling Catheter Indwelling Catheter Indwelling Catheter # Bowel Movements 1 ABP, PAP, CO, CI - Last Documented Arterial Blood Pressure 120/65 - Exam GENERAL EXAM: Alert, very pleasant, obese 85-year-old male patient, on room air, resting comfortably in bed. HEAD: Normocephalic/atraumatic. EYES: Normal reaction of pupils, equal size. Conjunctiva pink, sclera white. NOSE: Clear with pink turbinates. THROAT: No erythema or exudates. NECK: No masses, no JVD, no thyroid enlargement, no adenopathy. CHEST: No chest wall deformity. Symmetrical expansion. LUNGS: Equal air entry with no crackles, wheeze, rhonchi or dullness. CVS: Regular rate and rhythm, normal S1 and S2, no gallops, no murmurs, no rubs ABDOMEN: Soft, nontender. Normal bowel sounds, no guarding or rigidity. Colostomy is in place which is functional, there is a another opening on the anterior lower abdominal wall with stool, none of it that is probably related to enteral cutaneous fascia EXTREMITIES: No clubbing, no edema, no cyanosis, 2+ pulses and upper and lower extremities. MUSCULOSKELETAL: Muscle strength and tone normal. SPINE: No scoliosis or deformity SKIN: No rashes, stage II pressure ulcer on the sacrum CENTRAL NERVOUS SYSTEM: No focal deficits, tone is normal in all 4 extremities. PSYCHIATRIC: Alert and oriented -3. Appropriate affect. Intact judgment and insight. - Labs CBC & Chem 7: 06/16/21 05:50 06/16/21 05:50 Labs: Abnormal Lab Results - Last 24 Hours (Table) 06/16/21 06/16/21 06/17/21 Range/Units 17:10 20:27 07:22 POC Glucose (mg/dL) 146 H 109 H 113 H (75-99) mg/dL Microbiology - Last 24 Hours (Table) 06/11/21 21:20 Blood Culture - Preliminary Blood No Growth after 120 hours 06/14/21 18:31 Urine Culture - Final Urine,Catheterized Assessment and Plan Assessment: 1. Acute febrile illness, hypotension and pain and along the sacral wound area. Consent underlying infection. The patient has had evaluation cultures of the wound clinic and a previous cultures from 01/16/2021 and showed Proteus and pseudomonas aeruginosa. Pro calcitonin level is elevated indicating an underlying bacterial infection. The patient is still on IV cefepime. ID is on the case. The patient has a deep tissue injury to his right buttocks. Cultures were negative. The cultures revealed no growth. Urine culture revealing no growth. 2. Acute lactic acidosis, improving 3. Hypotension, recovered 4. 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 5. History of abdominal sepsis with Pseudomonas and E. coli 6. 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 . The patient also has a history of deep tissue injury in the left buttocks. 7. Anterior abdominal wound, healing 8. 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 Prolonged hospitalization requiring intubation mechanical ventilation with subsequent decannulation and a tracheostomy site is dry clean and intact 10. Coronary artery disease 11. BPH 12. Diabetes mellitus 13. Hypertension 14. Hyperlipidemia 15. Morbid obesity with a BMI 32 16. Sedentary, nonambulatory, and the patient is essentially bedridden at this point in time 17. BPH 18. Nonobstructive left ureteral calculus 19. Episode of SVT overnight, received adenosine and the patient is currently on Cardizem drip at 5 mg an hour along with long-term medical condition with Xarelto. Currently back to sinus. Plan: The patient was seen and evaluated Stable and on room air Antibiotic coverage per ID service I have personally seen and examined the patient, performed the documentation and the assessment and plan as written. Number of minutes spent on the visit: 10.
[2021-06-17 12:09] LABS: Glucose,Whole Blood 153 mg/dL (75-99)
[2021-06-17 13:21] VITALS: BP 115/68; RESP 18; TEMP 97.8
--- NOTE | 2021-06-17 15:33 | P.PN ---
Subjective Progress Note Date: 06/17/21 CHIEF COMPLAINT: Sacral decubitus ulcer HISTORY OF PRESENT ILLNESS: Patient lying in bed comfortably. Patient reports 3 bowel movements per rectum after the Fleet enema. She has had less output through the mucous fistula. He denies any abdominal pain. He reports that he is being discharged later today. Afebrile. Ostomy is functioning. Patient seen and examined with Dr. sr PHYSICAL EXAM: VITAL SIGNS: Reviewed. GENERAL: Well-developed in no acute distress. HEENT: No sclera icterus. Extraocular movements grossly intact. Moist buccal mucosa. Head is atraumatic, normocephalic. ABDOMEN: Soft. Obese. Nondistended. So left-sided abdomen has evidence of a mucous fistula with stool and some blood. There is skin irritation around the mucous fistula that is bleeding. Ostomy on the right is functioning. Patient does have skin irritation with scabs noted on the right middle abdomen reported as chronic. NEUROLOGIC: Alert and oriented. Cranial nerves II through XII grossly intact. ASSESSMENT: 1. Fecaloma within the rectum likely contributing to backup of stool coming out of the mucous fistula. Improved with Fleet enema. The maroon-colored stool from the mucous fistula is likely due to bleeding from the skin irritation around the mucous fistula. 2. Chronic sacral decubitus ulcer will PLAN: -Patient can be discharged from surgical standpoint -No surgical intervention planned -Continue supportive care -Ostomy and mucous fistula working appropriately Physician [employer] note has been reviewed by physician. Signing provider agrees with the documented findings, assessment, and plan of care. Objective - Vital Signs Vital signs: Vital Signs Temp 97.8 F 06/17/21 12:13 Pulse 60 06/17/21 12:13 Resp 18 06/17/21 12:13 BP 115/68 06/17/21 12:13 Pulse Ox 95 06/17/21 12:13 Intake & Output 06/16/21 06/17/21 06/17/21 18:59 06:59 18:59 Intake Total 540 1040 Output Total 1200 Balance 540 -160 Weight 115.6 kg Intake: IV 100 Cefepime 2 gm In Sodium 100 Chloride 0.9% 100 ml @ 25 mls/hr IVPB Q12HR COUNTS INCLUDE 234 BEDS AT THE [facility] Rx #:[id number] Intake, IV Titration 100 Amount Sodium Chloride 0.9% 1, 100 000 ml @ 20 mls/hr IV . Q24H COUNTS INCLUDE 234 BEDS AT THE [facility] Rx#:[id number] Oral 540 840 Output: Urine 1200 Uretheral ([facility]) 1200 Other: Voiding Method Indwelling Catheter Indwelling Catheter Indwelling Catheter # Bowel Movements 1 ABP, PAP, CO, CI - Last Documented Arterial Blood Pressure 120/65 - Labs CBC & Chem 7: 06/16/21 05:50 06/16/21 05:50 Labs: Abnormal Lab Results - Last 24 Hours (Table) 06/16/21 06/16/21 06/17/21 Range/Units 17:10 20:27 07:22 POC Glucose (mg/dL) 146 H 109 H 113 H (75-99) mg/dL 06/17/21 Range/Units 12:08 POC Glucose (mg/dL) 153 H (75-99) mg/dL Microbiology - Last 24 Hours (Table) 06/11/21 21:20 Blood Culture - Preliminary Blood No Growth after 120 hours 06/14/21 18:31 Urine Culture - Final Urine,Catheterized
--- NOTE | 2021-06-18 09:05 | P.DS ---
Providers Date of admission: 06/11/21 22:03 Expected date of discharge: 06/17/21 Attending physician: Robert Miller MD Consults: 06/11/21 22:32 Consult Physician Stat Consulting Provider: Yeison Escalante Consult Reason/Comments: Sepsis Do you want consulting provider notified?: Yes 06/13/21 10:35 Consult Physician Routine Consulting Provider: Gerald Park Consult Reason/Comments: wound care/ sepsis Do you want consulting provider notified?: Yes 06/15/21 09:17 Consult Physician Routine Consulting Provider: Rony Woodward Consult Reason/Comments: abdominal wounds, maroon colored stool from left ostomy Do you want consulting provider notified?: Yes Primary care physician: GIANCARLO Londono Hospital Course: Final diagnosis -Sepsis probably secondary to sacral decub ulcers -Ruled out urinary tract infection, urinalysis is negative, patient does have chronic nazario -Lactic acidosis, present on admission secondary to to sepsis, improved -Hypervolemic hyponatremia -Type 2 diabetes mellitus uncontrolled with hyperglycemia -History of diverticultis with bowel perforation, multiple abdominal surgeries; patient has [address] with chronic abdominal wound. -Coronary artery disease status post stenting and CABG in 2016 -Benign prostatic hypertrophy -History of mechanical intubation presently has a tracheostomy site is clean -Hypertension -Acute renal failure secondary to prerenal azotemia and sepsis -Hypertension -Hyperlipidemia -Obesity -Deconditioning and chronic debility mostly bedbound -Atrial fibrillation chronic -Periods of SVT -History hypothyroidism -History CVA/TIA -DVT prophylaxis -GI Prophylaxis -Full Code Discharge disposition Patient is being discharged in a stable condition with guarded prognosis to home and has home care along with personal assistants per family 247. Patient will follow-up with Alexandro Alaniz [employer] TECHNICIAN in the outpatient setting upon discharge. Patient is to also follow-up with wound care and urology in the outpatient setting as scheduled. patient to continue with local wound care. Patient will continue on oral Ceftin 500 mg twice daily for the next 10 day per infectious disease recommendations. Total time taken is greater than 35 minutes. Hospital course This is an 85-year-old male who was recently admitted with possible sepsis, present on admission possibly secondary to decubitus ulcer stage III that appears infected and multiple medical consultations were following. Patient was maintained in the ICU briefly for sepsis and treated with IV antibiotic therapy along with intensive wound care. Patient will follow-up in the outpatient setting with multiple medical consultations as scheduled. Patient to continue with local wound care and will also follow-up in the wound care center in the outpatient setting. Urine, blood, sputum cultures are negative and patient will continue on oral Ceftin 500 mg twice daily for the next 10 days per infectious disease recommendations. Patient is extremely weak although per the family and patient this is his baseline as he is mostly bedbound and uses a Shadi lift in hospital bed in the outpatient setting. Patient family has arranged for 01/11 c are along with home care and AIDS that come to the home multiple times during the week. Patient having some retention requiring indwelling Nazario catheter and will continue for now given the extent of his wounds and will have him follow-up with urology in the outpatient setting. Patient also seen and evaluated by general surgery with no surgical interventions and patient is to continue on bowel regimen and softeners and continued ostomy care. Patient is requesting to go home today. Currently no reports of chest pain, shortness of breath, or palpitations. Patient is afebrile. No reports of nausea or vomiting and patient is tolerating diet. Patient will be discharged home today. Guarded prognosis. On exam vital signs are stable. Cardio S1, S2 are muffled. Respiratory system shows diminished breath sounds at the bases with no wheezing or rhonchi noted. Abdomen is soft and obese, and nontender. Nervous system shows diffuse weakness. Please refer to medication reconciliation sheet for a list of medications. The impression and plan of care has been dictated by Shey Lu, nurse practitioner as directed. MD Chad I have performed a history and examination and MDM of this patient, discussed the same with the dictator, and agree with the dictator's assessment and plan as written ,documented as a scribe. Based on total visit time, I have performed more than 50% of the visit. Total number of minutes spent on this visit, 10 minutes. Any additional findings or plans will be noted. Patient Condition at Discharge: Fair Plan - Discharge Summary New Discharge Prescriptions: New Pantoprazole [Protonix] 40 mg PO AC-BRKFST 30 Days #30 tab Cefuroxime Axetil [Ceftin] 500 mg PO BID 10 Days #20 tab Metoprolol Tartrate [Lopressor] 37.5 mg PO BID 30 Days #180 tab Continue Nitroglycerin Sl Tabs [Nitrostat] 0.4 mg SL Q5M PRN PRN Reason: Chest Pain Aspirin 81 mg PO DAILY@0800 Acetaminophen Tab [Tylenol] 325 - 650 mg PO Q6H PRN PRN Reason: Pain Ipratropium-Albuterol Nebulize [Duoneb 0.5 mg-3 mg/3 ml Soln] 3 ml INHALATION RT-Q6H PRN PRN Reason: Shortness Of Breath Levothyroxine Sodium [Synthroid] 100 mcg PO DAILY@0800 Tamsulosin HCl [Flomax] 0.4 mg PO HS@1999 HYDROcodone/APAP 10-325MG [[place] 10-325] 1 tab PO TID PRN PRN Reason: Pain amLODIPine [Norvasc] 2.5 mg PO HS@1999 Atorvastatin [Lipitor] 20 mg PO HS@1999 Baclofen 5 mg PO BID@799,1999 Lactulose [Constulose] 10 gm PO BID PRN PRN Reason: Constipation Multivitamins, Thera [Multivitamin (formulary)] 1 tab PO DAILY@0800 Omeprazole 40 mg PO DAILY@0800 Cranberry Fruit Extract [Cranberry] 500 mg PO HS@1999 Triamcinolone 0.1% Ointment [Kenalog 0.1% Ointment] 1 applic TOPICAL BID Pregabalin [Lyrica] 100 mg PO BID@799,1999 Rivaroxaban [Xarelto] 10 mg PO DAILY@1700 ALPRAZolam [Xanax] 0.25 mg PO TID PRN PRN Reason: Anxiety Ferrous Sulfate [Iron (65 MG Elemental)] 325 mg PO DAILY@0800 Docusate [Colace] 100 mg PO TID@0800,1699,1999 Discontinued Metoprolol Tartrate [Lopressor] 12.5 mg PO BID@799,1999 Discharge Medication List Nitroglycerin Sl Tabs [Nitrostat] 0.4 mg SL Q5M PRN 02/10/16 [History] Aspirin 81 mg PO DAILY@0800 04/09/16 [History] Acetaminophen Tab [Tylenol] 325 - 650 mg PO Q6H PRN 01/27/19 [History] Ipratropium-Albuterol Nebulize [Duoneb 0.5 mg-3 mg/3 ml Soln] 3 ml INHALATION RT-Q6H PRN 02/21/19 [History] Levothyroxine Sodium [Synthroid] 100 mcg PO DAILY@0800 02/21/19 [History] Tamsulosin HCl [Flomax] 0.4 mg PO HS@199902/21/19 [History] HYDROcodone/APAP 10-325MG [[place] 10-325] 1 tab PO TID PRN 04/25/19 [History] Atorvastatin [Lipitor] 20 mg PO HS@199904/16/20 [History] Baclofen 5 mg PO BID@0800,199904/16/20 [History] amLODIPine [Norvasc] 2.5 mg PO HS@199904/16/20 [History] ALPRAZolam [Xanax] 0.25 mg PO TID PRN 10/23/20 [History] Lactulose [Constulose] 10 gm PO BID PRN 10/23/20 [History] Rivaroxaban [Xarelto] 10 mg PO DAILY@1700 10/23/20 [History] Ferrous Sulfate [Iron (65 MG Elemental)] 325 mg PO DAILY@0800 01/28/21 [History] Multivitamins, Thera [Multivitamin (formulary)] 1 tab PO DAILY@0800 01/28/21 [History] Omeprazole 40 mg PO DAILY@0800 01/28/21 [History] Cranberry Fruit Extract [Cranberry] 500 mg PO HS@199906/11/21 [History] Docusate [Colace] 100 mg PO TID@0800,1700,199906/11/21 [History] Pregabalin [Lyrica] 100 mg PO BID@0800,199906/11/21 [History] Triamcinolone 0.1% Ointment [Kenalog 0.1% Ointment] 1 applic TOPICAL BID 06/11/21 [History] Cefuroxime Axetil [Ceftin] 500 mg PO BID 10 Days #20 tab 06/17/21 [Rx] Metoprolol Tartrate [Lopressor] 37.5 mg PO BID 30 Days #180 tab 06/17/21 [Rx] Pantoprazole [Protonix] 40 mg PO AC-BRKFST 30 Days #30 tab 06/17/21 [Rx] Follow up Appointment(s)/Referral(s): Alexandro Alaniz NPC [Primary Care Provider] - 1-2 days (doctor will see patient tomorrow at home) Eden Padilla NPC [Nurse Practitioner] - 06/25/21 12:45 pm [facility], [NON-STAFF] - 1 Week Joaquim Chaves MD [STAFF PHYSICIAN] - 1 Week Ambulatory/Diagnostic Orders: Complete Blood Count w/diff [LAB.AMB] Time Frame: 2 Days, Location: None Selected Patient Instructions/Handouts: Sepsis (DC) Activity/Diet/Wound Care/Special Instructions: Activity Limited until follow-up Follow-up with primary care provider on discharge Follow-up with cardiology outpatient in one week Continue on heart healthy low fiber diet Continue antibiotics twice daily for 10 days and then may discontinue Continue local wound care and follow-up the wound care center in 1-2 weeks Repeat blood draw a CBC and CMP in 2-3 days Patient is to follow-up with urology in the outpatient setting in 1 week as patient required indwelling Nazario catheter for retention Recommend obtaining a glucometer and monitoring blood sugars before meals and at bedtime and keeping a diary for primary care follow-up as blood sugars were minimally elevated during hospitalizationpatient follow-up with primary care provider to discuss if medication is needed or next steps in treatment plan. Hemoglobin A1c was ordered and pending and can follow-up with primary care provider on results. Discharge Disposition: HOME WITH HOME HEALTH SERVICES
--- NOTE | 2021-06-19 07:59 | CDI ---
Documentation Clarification Form Date: 06/19/2021 07:35:00 AM From: Aleshia Douglass Admit Date: 06/11/2021 10:03:00 PM Patient Name: Rene Martinez Visit Number: [id number] Discharge Date: 06/17/2021 02:40:00 PM ATTENTION: The Clinical Documentation Specialists (CDI) and [facility] Coding Staff appreciate your assistance in clarifying documentation. Please respond to the clarification below the line at the bottom and electronically sign. The CDI & [facility] Coding staff will review the response and follow-up if needed. Please note: Queries are made part of the Legal Health Record. If you have any questions, please contact the author of this message via ITS. Dr. Aspen Elizabeth Conflicting documentation has been found in the medical record. Per H and P sacral ulcer is Stage III, per pulmonary consult sacral ulcer is stage IV, per medical consult sacral ulcer is stage II. Per nursing notes sacral ulcer is stage III. As attending physician, please provide clarification. H and P Stage III Pulmonary consult Stage IV Medical consult Stage II Nursing notes Stage III History/Risk Factors: Patient is bedbound, sepsis Treatment: IV Cefepime, Kenalog ointment Please clarify which diagnosis is most appropriate: [ ] Sacral decubitus ulcer Stage II [ ] Sacral decubitus ulcer Stage III [ ] Sacral decubuitus ulcer Stage IV [ ] Other (please specify) [ ] Unable to determine Sacral decubitus ulcer Stage III MTDD
== END 2021-06-17 14:40 | disposition home health service (06) | DRG 871 ==
LOC: EC 17:04 → 2SICU 22:03 → 5NMEDONC 06-13 14:50
PROVIDERS: ADMIT Internal Medicine; ATTEND Internal Medicine
DX: A41.9 Sepsis, unspecified organism (principal); L89.153 Pressure ulcer of sacral region, stage 3; E87.1 Hypo-osmolality and hyponatremia; E87.2 Acidosis; I47.1 Supraventricular tachycardia; I48.20 Chronic atrial fibrillation, unspecified; J98.11 Atelectasis; N17.9 Acute kidney failure, unspecified; N20.1 Calculus of ureter; I48.92 Unspecified atrial flutter; E03.9 Hypothyroidism, unspecified; E11.65 Type 2 diabetes mellitus with hyperglycemia; E66.01 Morbid (severe) obesity due to excess calories; E78.5 Hyperlipidemia, unspecified; Z68.32 Body mass index [BMI] 32.0-32.9, adult; E87.70 Fluid overload, unspecified; F43.10 Post-traumatic stress disorder, unspecified; I10 Essential (primary) hypertension; I25.10 Atherosclerotic heart disease of native coronary artery without angina pectoris; I25.2 Old myocardial infarction; K59.00 Constipation, unspecified; L98.492 Non-pressure chronic ulcer of skin of other sites with fat layer exposed; N40.0 Benign prostatic hyperplasia without lower urinary tract symptoms; Z20.822 Contact with and (suspected) exposure to COVID-19; I95.9 Hypotension, unspecified; Z74.01 Bed confinement status; Z79.01 Long term (current) use of anticoagulants; Z79.82 Long term (current) use of aspirin; Z79.890 Hormone replacement therapy; Z79.899 Other long term (current) drug therapy; Z82.49 Family history of ischemic heart disease and other diseases of the circulatory system; Z86.73 Personal history of transient ischemic attack (TIA), and cerebral infarction without residual deficits; Z87.891 Personal history of nicotine dependence; Z90.79 Acquired absence of other genital organ(s); Z93.0 Tracheostomy status; Z93.3 Colostomy status; Z95.1 Presence of aortocoronary bypass graft; Z95.5 Presence of coronary angioplasty implant and graft; Z98.890 Other specified postprocedural states; Z90.49 Acquired absence of other specified parts of digestive tract; Z86.19 Personal history of other infectious and parasitic diseases; Z86.14 Personal history of Methicillin resistant Staphylococcus aureus infection; R53.81 Other malaise; Z98.42 Cataract extraction status, left eye; Z98.41 Cataract extraction status, right eye; M19.90 Unspecified osteoarthritis, unspecified site
CPT/HCPCS: 36415; 71046; 74176; 80048; 80053; 81001; 82150; 83036; 83605; 83690; 83735; 84145; 84443; 84484; 85025; 85610; 85652; 85730; 86140; 87040; 87070; 87086; 87205; 87502; 87635; 93005; 96361; 96365; 96366; 96367; 96368; 96375; 96376; 99285

== ENCOUNTER 2021-07-08 02:17 | Emergency (ER) | payer MEDICARE, OTHER ==
[2021-07-08] MEDS ORDERED: OXYMETAZOLINE 0.05% NASL SPRAY 1 SPRAY BOTTLE NASAL STA (02:26)
--- NOTE | 2021-07-08 02:27 | ED ---
ENT HPI - General Stated complaint: Nosebleed Time Seen by Provider: 07/08/21 02:26 Source: RN notes reviewed, old records reviewed Mode of arrival: ambulatory Limitations: no limitations - History of Present Illness Initial comments: This is an 85-year-old male DF for evaluation today. Patient is presented today for evaluation of nosebleed. Patient states he has had 3 hours of nosebleed although no nausea vomiting no trauma. Patient denying any other specific complaint aside from nosebleed. He states with pressures down the nosebleed to stop. Patient is on anticoagulation. Patient denies lightheadedness dizziness or weakness MD complaint: epistaxis -: hour(s) (3) Location: nose Severity: moderate Severity scale (1-10): 5 Consistency: constant, now resolved Improves with: pressure Worsens with: none Context-Epistaxis: warfarin use Associated Symptoms: other (none) - Related Data Home Medications Medication Instructions Recorded Confirmed Nitroglycerin Sl Tabs [Nitrostat] 0.4 mg SL Q5M PRN 02/10/16 06/11/21 Aspirin 81 mg PO DAILY@0800 04/09/16 06/11/21 Acetaminophen Tab [Tylenol] 325 - 650 mg PO Q6H PRN 01/27/19 06/11/21 Ipratropium-Albuterol Nebulize 3 ml INHALATION RT-Q6H PRN 02/21/19 06/11/21 [Duoneb 0.5 mg-3 mg/3 ml Soln] Levothyroxine Sodium [Synthroid] 100 mcg PO DAILY@0800 02/21/19 06/11/21 Tamsulosin HCl [Flomax] 0.4 mg PO HS@199902/21/19 06/11/21 HYDROcodone/APAP 10-325MG [[place] 1 tab PO TID PRN 04/25/19 06/11/21 10-325] Atorvastatin [Lipitor] 20 mg PO HS@199904/16/20 06/11/21 Baclofen 5 mg PO BID@0800,199904/16/20 06/11/21 amLODIPine [Norvasc] 2.5 mg PO HS@199904/16/20 06/11/21 ALPRAZolam [Xanax] 0.25 mg PO TID PRN 10/23/20 06/11/21 Lactulose [Constulose] 10 gm PO BID PRN 10/23/20 06/11/21 Rivaroxaban [Xarelto] 10 mg PO DAILY@1700 10/23/20 06/11/21 Ferrous Sulfate [Iron (65 MG 325 mg PO DAILY@0800 01/28/21 06/11/21 Elemental)] Multivitamins, Thera [Multivitamin 1 tab PO DAILY@0800 01/28/21 06/11/21 (formulary)] Omeprazole 40 mg PO DAILY@0800 01/28/21 06/11/21 Cranberry Fruit Extract [Cranberry] 500 mg PO HS@199906/11/21 06/11/21 Docusate [Colace] 100 mg PO TID@0800,1700,199906/11/21 06/11/21 Pregabalin [Lyrica] 100 mg PO BID@0800,199906/11/21 06/11/21 Triamcinolone 0.1% Ointment 1 applic TOPICAL BID 06/11/21 06/11/21 [Kenalog 0.1% Ointment] Previous Rx's Medication Instructions Recorded Cefuroxime Axetil [Ceftin] 500 mg PO BID 10 Days #20 tab 06/17/21 Metoprolol Tartrate [Lopressor] 37.5 mg PO BID 30 Days #180 tab 06/17/21 Pantoprazole [Protonix] 40 mg PO AC-BRKFST 30 Days #30 tab 06/17/21 Allergies Allergy/AdvReac Type Severity Reaction Status Date / Time No Known Allergies Allergy Verified 06/11/21 18:24 Review of Systems ROS Statement: Those systems with pertinent positive or pertinent negative responses have been documented in the HPI. ROS Other: All systems not noted in ROS Statement are negative. Past Medical History Past Medical History: Atrial Fibrillation, Atrial Flutter, Coronary Artery Disease (CAD), Chest Pain / Angina, CVA/TIA, Hyperlipidemia, Hypertension, Be cardial Infarction (AL), Osteoarthritis (OA), Prostate Disorder, Skin Disorder, Thyroid Disorder Additional Past Medical History / Comment(s): Diverticulitis, HX PERFORATION. Gout. Eczema. BPH. Chronic Back Pain D/T PINCHED NERVE, has been bedridden since September. HX VERTIGO. FOOD GETTING STUCK IN THROAT - REMOVAL X3. Last Myocardial Infarction Date:: 08/2015 History of Any Multi-Drug Resistant Organisms: MRSA, Other MDRO, VRE Date of last positivie culture/infection: 01/16/21 MRSA 02/24/19 VRE MDRO Source:: Abdomen-MRSA & VRE Past Surgical History: Bowel Resection, Cardiac Ablation, Coronary Bypass/CABG, Heart Catheterization With Stent, Tonsillectomy Additional Past Surgical History / Comment(s): 02/11/16 Cardiac stent to SVG to diagonal; TOTAL 3 NOW. CABG X3 0n 07/11/15. CYST REMOVED FROM HEART 1958; LEFT TESTICLE REMOVED; МАРИНА CATARACTS. EGD W/ REMOVAL FB X3. Ostomy which failed, and redone. Colostomy since September 2018. Issues with sepsis since. 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 Past Anesthesia/Blood Transfusion Reactions: No Reported Reaction Additional Past Anesthesia/Blood Transfusion Reaction / Comment(s): no family hx Date of Last Stent Placement:: 02/11/16 Smoking Status: Never smoker - Past Family History Mother Family Medical History: Unable to Obtain Additional Family Medical History / Comment(s): Mother had a pacemaker. Father History Unknown: Yes Family Medical History: Myocardial Infarction (AL) General Exam - General Exam Comments Initial Comments: No current epistaxis General appearance: alert, in no apparent distress Head exam: Present: atraumatic, normocephalic, normal inspection Eye exam: Present: normal appearance, PERRL, EOMI. Absent: scleral icterus, conjunctival injection, periorbital swelling ENT exam: Present: normal exam, mucous membranes moist Neck exam: Present: normal inspection. Absent: tenderness, meningismus, lymphadenopathy Respiratory exam: Present: normal lung sounds bilaterally. Absent: respiratory distress, wheezes, rales, rhonchi, stridor Cardiovascular Exam: Present: regular rate, normal rhythm, normal heart sounds. Absent: systolic murmur, diastolic murmur, rubs, gallop, clicks GI/Abdominal exam: Present: soft, normal bowel sounds. Absent: distended, tenderness, guarding, rebound, rigid Extremities exam: Present: normal inspection, full ROM, normal capillary refill. Absent: tenderness, pedal edema, joint swelling, calf tenderness Back exam: Present: normal inspection Neurological exam: Present: alert, oriented X3, CN II-XII intact Psychiatric exam: Present: normal affect, normal mood Skin exam: Present: warm, dry, intact, normal color. Absent: rash Course Vital Signs 07/08/21 07/08/21 02:36 03:09 Temperature 98.2 F Pulse Rate 53 L Respiratory 18 16 Rate Blood Pressure 170/58 135/56 O2 Sat by Pulse 97 Oximetry - Reevaluation(s) Reevaluation #1: 07/08/21 Medical record is reviewed Patient symptoms are improved here in the emergency department Patient informed results questions answered Medical Decision Making - Medical Decision Making 85 male to the emergency department with nosebleed, bleeding has stopped upon arrival to the ER, patient is not prefer packing at this time will return if symptoms worsen Disposition Clinical Impression: Epistaxis Disposition: HOME SELF-CARE Condition: Good Instructions (If sedation given, give patient instructions): Nosebleed (ED) Is patient prescribed a controlled substance at d/c from ED?: No Referrals: Dilshad Lopez DO [Primary Care Provider] - 1-2 days
[2021-07-08 02:41] VITALS: PULSE 53; TEMP 98.2
[2021-07-08 03:10] VITALS: BP 135/56; RESP 16
== END 2021-07-08 03:30 | disposition home or self-care (01) ==
LOC: EC 02:17
DX: R04.0 Epistaxis (principal); E78.5 Hyperlipidemia, unspecified; I10 Essential (primary) hypertension; I25.10 Atherosclerotic heart disease of native coronary artery without angina pectoris; I25.2 Old myocardial infarction; I48.91 Unspecified atrial fibrillation; M19.90 Unspecified osteoarthritis, unspecified site; E07.9 Disorder of thyroid, unspecified; N40.0 Benign prostatic hyperplasia without lower urinary tract symptoms; Z79.01 Long term (current) use of anticoagulants; Z79.82 Long term (current) use of aspirin; Z86.73 Personal history of transient ischemic attack (TIA), and cerebral infarction without residual deficits; Z95.1 Presence of aortocoronary bypass graft; Z95.5 Presence of coronary angioplasty implant and graft; Z79.899 Other long term (current) drug therapy; Z79.02 Long term (current) use of antithrombotics/antiplatelets; Z79.890 Hormone replacement therapy
CPT/HCPCS: 99283

== ENCOUNTER 2021-08-19 21:35 | Inpatient (IN) | payer MEDICARE, OTHER ==
[2021-08-19] MEDS ORDERED: IBUPROFEN 600 MG TAB PO STA (21:39)
[2021-08-19] MEDS ORDERED: ONDANSETRON 4 MG/2 ML VIAL IVP STA (21:39)
[2021-08-19] MEDS ORDERED: SODIUM CHLORIDE 0.9% 1,000 ML IV STA (21:39)
[2021-08-19] MEDS ORDERED: ACETAMINOPHEN TAB 500 MG TAB PO STA (21:39)
--- NOTE | 2021-08-19 21:41 | ED ---
Fever HPI - General Chief Complaint: Fever Stated Complaint: Difficulty Urinating, Fever Time Seen by Provider: 08/19/21 21:38 Source: patient, EMS, RN notes reviewed, old records reviewed Mode of arrival: EMS Limitations: no limitations - History of Present Illness Initial Comments: This is an 85-year-old male to the emergency department for evaluation patient resents today for evaluation multiple complaints abdominal pain weakness fever inability to urinate. Patient is from home. He has an inability to ambulate from home. No travel history no sick contacts no other complaints no chest pain or shortness of breath no abdominal pain MD Complaint: fever, malaise, weakness -: days(s) Temperature Source: subjective Context: sick contacts Associated Symptoms: myalgias, nausea, night sweats Treatments Prior to Arrival: none - Related Data Home Medications Medication Instructions Recorded Confirmed Nitroglycerin Sl Tabs [Nitrostat] 0.4 mg SL Q5M PRN 02/10/16 08/19/21 Aspirin 81 mg PO DAILY@0800 04/09/16 08/19/21 Levothyroxine Sodium [Synthroid] 100 mcg PO DAILY@0800 02/21/19 08/19/21 Tamsulosin HCl [Flomax] 0.4 mg PO HS@199902/21/19 08/19/21 HYDROcodone/APAP 10-325MG [[place] 1 tab PO TID PRN 04/25/19 08/19/21 10-325] Atorvastatin [Lipitor] 20 mg PO HS@199904/16/20 08/19/21 Baclofen 5 mg PO BID@0800,199904/16/20 08/19/21 amLODIPine [Norvasc] 2.5 mg PO HS@199904/16/20 08/19/21 ALPRAZolam [Xanax] 0.25 mg PO TID PRN 10/23/20 08/19/21 Lactulose [Constulose] 10 gm PO BID PRN 10/23/20 08/19/21 Rivaroxaban [Xarelto] 10 mg PO DAILY@1700 10/23/20 08/19/21 Ferrous Sulfate [Iron (65 MG 325 mg PO DAILY@0800 01/28/21 08/19/21 Elemental)] Multivitamins, Thera [Multivitamin 1 tab PO DAILY@0800 01/28/21 08/19/21 (formulary)] Cranberry Fruit Extract [Cranberry] 500 mg PO HS@199906/11/21 08/19/21 Docusate [Colace] 100 mg PO TID@0800,1700,199906/11/21 08/19/21 Pregabalin [Lyrica] 100 mg PO BID@0800,199906/11/21 08/19/21 Glimepiride [Amaryl] 2 mg PO AC-BRKFST 08/19/21 08/19/21 Insulin Glargine,Hum.rec.anlog 10 unit SQ HS@199908/19/21 08/19/21 [Lantus Solostar Pen] Metoprolol Tartrate [Lopressor] 37.5 mg PO BID@0800,199908/19/21 08/19/21 SILVER sulfADIAZINE Cream 1 applic TOPICAL BID 08/19/21 08/19/21 [Silvadene 1% Cream] Previous Rx's Medication Instructions Recorded Pantoprazole [Protonix] 40 mg PO AC-BRKFST 30 Days #30 tab 06/17/21 Allergies Allergy/AdvReac Type Severity Reaction Status Date / Time No Known Allergies Allergy Verified 08/19/21 21:39 Review of Systems ROS Statement: Those systems with pertinent positive or pertinent negative responses have been documented in the HPI. ROS Other: All systems not noted in ROS Statement are negative. Past Medical History Past Medical History: Atrial Fibrillation, Atrial Flutter, Coronary Artery Disease (CAD), Chest Pain / Angina, CVA/TIA, Hyperlipidemia, Hypertension, Myocardial Infarction (NH), Osteoarthritis (OA), Prostate Disorder, Skin Disorde r, Thyroid Disorder Additional Past Medical History / Comment(s): Diverticulitis, HX PERFORATION. Gout. Eczema. BPH. Chronic Back Pain D/T PINCHED NERVE, has been bedridden since September. HX VERTIGO. FOOD GETTING STUCK IN THROAT - REMOVAL X3. Last Myocardial Infarction Date:: 08/2015 History of Any Multi-Drug Resistant Organisms: MRSA, Other MDRO, VRE Date of last positivie culture/infection: 01/16/21 MRSA 02/24/19 VRE MDRO Source:: Abdomen-MRSA & VRE Past Surgical History: Bowel Resection, Cardiac Ablation, Coronary Bypass/CABG, Heart Catheterization With Stent, Tonsillectomy Additional Past Surgical History / Comment(s): 02/11/16 Cardiac stent to SVG to diagonal; TOTAL 3 NOW. CABG X3 0n 07/11/15. CYST REMOVED FROM HEART 195; LEFT TESTICLE REMOVED; МАРИНА CATARACTS. EGD W/ REMOVAL FB X3. Ostomy which failed, and redone. Colostomy since September 2018. Issues with sepsis since. At [facility] family was told Rene had a VAP which was drug resistant, unsure of type, November 2018. Past Anesthesia/Blood Transfusion Reactions: No Reported Reaction Additional Past Anesthesia/Blood Transfusion Reaction / Comment(s): no family hx Date of Last Stent Placement:: 02/11/16 Past Psychological History: PTSD Smoking Status: Never smoker - Past Family History Mother Family Medical History: Unable to Obtain Additional Family Medical History / Comment(s): Mother had a pacemaker. Father History Unknown: Yes Family Medical History: Myocardial Infarction (NH) General Exam Limitations: no limitations General appearance: alert, in no apparent distress Head exam: Present: atraumatic, normocephalic, normal inspection Eye exam: Present: normal appearance, PERRL, EOMI. Absent: scleral icterus, conjunctival injection, periorbital swelling ENT exam: Present: normal exam, mucous membranes moist Neck exam: Present: normal inspection. Absent: tenderness, meningismus, lymphadenopathy Respiratory exam: Present: normal lung sounds bilaterally. Absent: respiratory distress, wheezes, rales, rhonchi, stridor Cardiovascular Exam: Present: regular rate, normal rhythm, normal heart sounds. Absent: systolic murmur, diastolic murmur, rubs, gallop, clicks GI/Abdominal exam: Present: soft, normal bowel sounds. Absent: distended, tenderness, guarding, rebound, rigid Extremities exam: Present: normal inspection, full ROM, normal capillary refill. Absent: tenderness, pedal edema, joint swelling, calf tenderness Back exam: Present: normal inspection Neurological exam: Present: alert, oriented X3, CN II-XII intact Psychiatric exam: Present: normal affect, normal mood Skin exam: Present: warm, dry, intact, normal color. Absent: rash Course Vital Signs 08/19/21 21:37 Temperature 101.5 F H Pulse Rate 70 Respiratory 20 Rate Blood Pressure 107/54 O2 Sat by Pulse 93 L Oximetry - Reevaluation(s) Reevaluation #1: 08/19/21 22:53 Medical records reviewed Reevaluation #2: 08/20/21 00:42 Bishop is placed with minimal urine output Patient will be treated for urinary tract infection Reevaluation #3: 08/20/21 00:42 Patient does have history of ulcer and bacteremia will place on broad-spectrum antibiotics Reevaluation #4: 08/20/21 00:42 Patient informed results and questions answered - Consultations Consultation #1: spoke w Dr Colon agrees to admit this patient Medical Decision Making - Medical Decision Making 25 male well-known to our hospital or emergency department for evaluation of fever. Patient states he can't urinate with abdominal pain. He also has history of sacral decubitus ulcer. Patient presents today for evaluation. Patient also complaining of some mild abdominal pain but no other real s ignificant current complaints. Patient denying any travel history or sick contacts. No other complaints - Lab Data Result diagrams: 08/19/21 22:16 08/19/21 22:16 Lab Results 08/19/21 08/19/21 08/19/21 Range/Units 22:16 22:16 22:16 WBC 8.3 (3.8-10.6) k/uL RBC 4.17 L (4.30-5.90) m/uL Hgb 11.7 L (13.0-17.5) gm/dL Hct 37.4 L (39.0-53.0) % MCV 89.6 (80.0-100.0) fL MCH 28.0 (25.0-35.0) pg MCHC 31.3 (31.0-37.0) g/dL RDW 16.0 H (11.5-15.5) % Plt Count 200 (150-450) k/uL MPV 7.5 Neutrophils % 83 % Lymphocytes % 7 % Monocytes % 6 % Eosinophils % 2 % Basophils % 0 % Neutrophils # 6.8 (1.3-7.7) k/uL Lymphocytes # 0.5 L (1.0-4.8) k/uL Monocytes # 0.5 (0-1.0) k/uL Eosinophils # 0.2 (0-0.7) k/uL Basophils # 0.0 (0-0.2) k/uL Hypochromasia Slight PT 13.3 H (9.0-12.0) sec INR 1.3 H (<1.2) APTT 31.6 H (22.0-30.0) sec Sodium (137-145) mmol/L Potassium (3.5-5.1) mmol/L Chloride (98-107) mmol/L Carbon Dioxide (22-30) mmol/L Anion Gap mmol/L BUN (9-20) mg/dL Creatinine (0.66-1.25) mg/dL Est GFR (CKD-EPI)AfAm (>60 ml/min/1.73 sqM) Est GFR (CKD-EPI)NonAf (>60 ml/min/1.73 sqM) Glucose (74-99) mg/dL Lactic Ac Sepsis Rflx Plasma Lactic Acid Alexey (0.7-2.0) mmol/L Calcium (8.4-10.2) mg/dL Phosphorus (2.5-4.5) mg/dL Magnesium (1.6-2.3) mg/dL Total Bilirubin (0.2-1.3) mg/dL AST (17-59) U/L ALT (4-49) U/L Alkaline Phosphatase (38-126) U/L Troponin I (0.000-0.034) ng/mL Total Protein (6.3-8.2) g/dL Albumin (3.5-5.0) g/dL Urine Color Yellow Urine Appearance Cloudy (Clear) Urine pH 6.0 (5.0-8.0) Ur Specific [place] 1.022 (1.001-1.035) Urine Protein 1+ H (Negative) Urine Glucose (UA) Negative (Negative) Urine Ketones Trace H (Negative) Urine Blood Moderate H (Negative) Urine Nitrite Negative (Negative) Urine Bilirubin Negative (Negative) Urine Urobilinogen 2.0 (<2.0) mg/dL Ur Leukocyte Esterase Large H (Negative) Urine RBC >182 H (0-5) /hpf Urine WBC >182 H (0-5) /hpf Urine WBC Clumps Few H (None) /hpf Ur Squamous Epith Cells <1 (0-4) /hpf Urine Bacteria Rare H (None) /hpf Urine Mucus Few H (None) /hpf Coronavirus (PCR) (Not Detectd) 08/19/21 08/19/21 08/19/21 Range/Units 22:16 22:16 22:16 WBC (3.8-10.6) k/uL RBC (4.30-5.90) m/uL Hgb (13.0-17.5) gm/dL Hct (39.0-53.0) % MCV (80.0-100.0) fL MCH (25.0-35.0) pg MCHC (31.0-37.0) g/dL RDW (11.5-15.5) % Plt Count (150-450) k/uL MPV Neutrophils % % Lymphocytes % % Monocytes % % Eosinophils % % Basophils % % Neutrophils # (1.3-7.7) k/uL Lymphocytes # (1.0-4.8) k/uL Monocytes # (0-1.0) k/uL Eosinophils # (0-0.7) k/uL Basophils # (0-0.2) k/uL Hypochromasia PT (9.0-12.0) sec INR (<1.2) APTT (22.0-30.0) sec Sodium 135 L (137-145) mmol/L Potassium 4.0 (3.5-5.1) mmol/L Chloride 103 (98-107) mmol/L Carbon Dioxide 25 (22-30) mmol/L Anion Gap 7 mmol/L BUN 9 (9-20) mg/dL Creatinine 0.91 (0.66-1.25) mg/dL Est GFR (CKD-EPI)AfAm 89 (>60 ml/min/1.73 sqM) Est GFR (CKD-EPI)NonAf 77 (>60 ml/min/1.73 sqM) Glucose 146 H (74-99) mg/dL Lactic Ac Sepsis Rflx Plasma Lactic Acid Alexey 2.4 H* (0.7-2.0) mmol/L Calcium 8.5 (8.4-10.2) mg/dL Phosphorus 2.8 (2.5-4.5) mg/dL Magnesium 2.0 (1.6-2.3) mg/dL Total Bilirubin 0.5 (0.2-1.3) mg/dL AST 33 (17-59) U/L ALT 20 (4-49) U/L Alkaline Phosphatase 101 (38-126) U/L Troponin I 0.039 H* (0.000-0.034) ng/mL Total Protein 6.7 (6.3-8.2) g/dL Albumin 3.4 L (3.5-5.0) g/dL Urine Color Urine Appearance (Clear) Urine pH (5.0-8.0) Ur Specific [place] (1.001-1.035) Urine Protein (Negative) Urine Glucose (UA) (Negative) Urine Ketones (Negative) Urine Blood (Negative) Urine Nitrite (Negative) Urine Bilirubin (Negative) Urine Urobilinogen (<2.0) mg/dL Ur Leukocyte Esterase (Negative) Urine RBC (0-5) /hpf Urine WBC (0-5) /hpf Urine WBC Clumps (None) /hpf Ur Squamous Epith Cells (0-4) /hpf Urine Bacteria (None) /hpf Urine Mucus (None) /hpf Coronavirus (PCR) (Not Detectd) 08/19/21 08/19/21 Range/Units 22:16 22:34 WBC (3.8-10.6) k/uL RBC (4.30-5.90) m/uL Hgb (13.0-17.5) gm/dL Hct (39.0-53.0) % MCV (80.0-100.0) fL MCH (25.0-35.0) pg MCHC (31.0-37.0) g/dL RDW (11.5-15.5) % Plt Count (150-450) k/uL MPV Neutrophils % % Lymphocytes % % Monocytes % % Eosinophils % % Basophils % % Neutrophils # (1.3-7.7) k/uL Lymphocytes # (1.0-4.8) k/uL Monocytes # (0-1.0) k/uL Eosinophils # (0-0.7) k/uL Basophils # (0-0.2) k/uL Hypochromasia PT (9.0-12.0) sec INR (<1.2) APTT (22.0-30.0) sec Sodium (137-145) mmol/L Potassium (3.5-5.1) mmol/L Chloride (98-107) mmol/L Carbon Dioxide (22-30) mmol/L Anion Gap mmol/L BUN (9-20) mg/dL Creatinine (0.66-1.25) mg/dL Est GFR (CKD-EPI)AfAm (>60 ml/min/1.73 sqM) Est GFR (CKD-EPI)NonAf (>60 ml/min/1.73 sqM) Glucose (74-99) mg/dL Lactic Ac Sepsis Rflx Y Plasma Lactic Acid Alexey (0.7-2.0) mmol/L Calcium (8.4-10.2) mg/dL Phosphorus (2.5-4.5) mg/dL Magnesium (1.6-2.3) mg/dL Total Bilirubin (0.2-1.3) mg/dL AST (17-59) U/L ALT (4-49) U/L Alkaline Phosphatase (38-126) U/L Troponin I (0.000-0.034) ng/mL Total Protein (6.3-8.2) g/dL Albumin (3.5-5.0) g/dL Urine Color Urine Appearance (Clear) Urine pH (5.0-8.0) Ur Specific [place] (1.001-1.035) Urine Protein (Negative) Urine Glucose (UA) (Negative) Urine Ketones (Negative) Urine Blood (Negative) Urine Nitrite (Negative) Urine Bilirubin (Negative) Urine Urobilinogen (<2.0) mg/dL Ur Leukocyte Esterase (Negative) Urine RBC (0-5) /hpf Urine WBC (0-5) /hpf Urine WBC Clumps (None) /hpf Ur Squamous Epith Cells (0-4) /hpf Urine Bacteria (None) /hpf Urine Mucus (None) /hpf Coronavirus (PCR) Not Detected (Not Detectd) - EKG Data -: EKG Interpreted by Me (EKG is sinus rhythm 70 SD 212 QRS 150 QTC 435) - Radiology Data Radiology results: report reviewed (Chest x-rays negative for acute disease), image reviewed Disposition Clinical Impression: Nausea, Acute exacerbation of chronic obstructive airways disease, Complicated UTI (urinary tract infection), Fever, Wound infection, Abdominal pain, Fever of unknown origin, Decubitus ulcer Disposition: ADMITTED IP TO THIS HOSP Condition: Fair Is patient prescribed a controlled substance at d/c from ED?: No Referrals: Dilshad Lopez DO [Primary Care Provider] - 1-2 days
[2021-08-19 22:29] LABS: Basophils % (A) 0 %; Eosinophils # (A) 0.2 k/uL (0-0.7); Eosinophils % (A) 2 %; HCT 37.4 % (39.0-53.0); HGB 11.7 gm/dL (13.0-17.5); Hypochromasia Slight; Lymphocytes # (A) 0.5 k/uL (1.0-4.8); Lymphocytes % (A) 7 %; MCHC 31.3 g/dL (31.0-37.0); MCV 89.6 fL (80.0-100.0); Mean Platelet Volume 7.5; Monocytes # (A) 0.5 k/uL (0-1.0); Monocytes % (A) 6 %; Neutrophils # (A) 6.8 k/uL (1.3-7.7); Neutrophils % (A) 83 %; Platelet Count 200 k/uL (150-450); RBC 4.17 m/uL (4.30-5.90); WBC 8.3 k/uL (3.8-10.6)
[2021-08-19 22:32] LABS: Albumin 3.4 g/dL (3.5-5.0); Appearance,Urine Cloudy (Clear); Bacteria,Urine Rare /hpf; Bilirubin,Urine Negative (Negative); Blood,Urine Moderate (Negative); Calcium 8.5 mg/dL (8.4-10.2); Color,Urine Yellow; Glucose,Urine (UA) Negative (Negative); Ketones,Urine Trace (Negative); Leukocyte Esterase,Urine Large (Negative); Mucus,Urine Few /hpf; Nitrite,Urine Negative (Negative); Phosphorus 2.8 mg/dL (2.5-4.5); Protein,Urine 1+ (Negative); RBC,Urine >182 /hpf (0-5); Specific Gravity,Urine 1.022 (1.001-1.035); Squamous Epithelial Cell,Urine <1 /hpf (0-4); Total Bilirubin 0.5 mg/dL (0.2-1.3); Total Protein 6.7 g/dL (6.3-8.2); WBC,Urine >182 /hpf (0-5)
[2021-08-19 22:35] LABS: INR 1.3 (<1.2); Partial Thromboplastin Time 31.6 sec (22.0-30.0); Prothrombin Time 13.3 sec (9.0-12.0)
--- NOTE | 2021-08-19 22:58 | XR ---
EXAMINATION TYPE: XR chest 1V portable DATE OF EXAM: 08/19/2021 COMPARISON: 06/11/2021 HISTORY: Pain TECHNIQUE: Single view FINDINGS: There is elevated right diaphragm. Thoracic aorta is atheromatous. There are sternal wires. There is mild linear density at the right lung base. IMPRESSION: There is some mild atelectasis right lung base. No heart failure. No change compared to o ld exam.
[2021-08-20] MEDS ORDERED: SODIUM CHLORIDE 0.9% 500 ML 500 ML IV STA
[2021-08-20] MEDS ORDERED: SODIUM CHLORIDE 0.9% 1,000 ML IV STA
[2021-08-20] MEDS ORDERED: ACETAMINOPHEN TAB 325 MG TAB PO PRN (00:38)
[2021-08-20] MEDS ORDERED: NALOXONE 0.4 MG/ML 1 ML VIAL IV PRN (00:38)
[2021-08-20] MEDS ORDERED: ONDANSETRON 4 MG/2 ML VIAL IVP PRN (00:38)
[2021-08-20] MEDS ORDERED: VANCOMYCIN IV PER PHARMACY 1 EACH MISC MISCELLANE PRN (00:39)
[2021-08-20] MEDS ORDERED: VANCOMYCIN 1,500 MG in SODIUM CHLORIDE 0.9% 250 ML IVPB ONE (01:00)
[2021-08-20] MEDS: SODIUM CHLORIDE 0.9% 1,000 ML IV SCH ×3 (05:30→16:40)
[2021-08-20] MEDS: MORPHINE SULFATE 4 MG/ML SYRINGE IV PRN (08:49)
[2021-08-20] MEDS ORDERED: ENOXAPARIN 40 MG/0.4 ML SYRINGE SQ SCH (09:00)
[2021-08-20] MEDS ORDERED: NITROGLYCERIN SL TABS 0.4 MG TAB SUBLINGUAL PRN (10:04)
[2021-08-20] MEDS ORDERED: LACTULOSE 20 GM/30 ML CUP PO PRN (10:04)
[2021-08-20] MEDS: HYDROcodone/APAP 10-325MG 1 EACH TAB PO PRN ×2 (12:01→19:12)
[2021-08-20] MEDS: LEVOTHYROXINE 100 MCG TAB PO SCH (12:01)
[2021-08-20] MEDS: ASPIRIN 81 MG PO SCH (12:01)
[2021-08-20] MEDS: PANTOPRAZOLE 40 MG TABLET PO SCH (12:01)
[2021-08-20] MEDS: BACLOFEN 10 MG TAB PO SCH ×2 (12:01→20:35)
[2021-08-20] MEDS: METOPROLOL TARTRATE 25 MG TAB PO SCH ×2 (12:02→20:37)
[2021-08-20] MEDS: GLIMEPIRIDE 2 MG TAB PO SCH (12:02)
[2021-08-20] MEDS: PREGABALIN 100 MG CAP PO SCH ×2 (12:02→20:36)
[2021-08-20 12:38] VITALS: BMI 33.7
--- NOTE | 2021-08-20 16:06 | P.HPIM ---
History of Present Illness H&P Date: 08/20/21 Chief Complaint: Abdominal pain Hospital course: This is a very pleasant 85-year-old patient of Dr. Lopez. October 2018. - acute perforated diverticulitis- sigmoid colectomy,-with the right abdominal wall colostomy. being followed by Dr. Woodward from general surgery and Dr. Park from infectious disease. did have a colostomy in the past and had revision that was done at [facility].chronic stable medical conditions include gout, BPH, chronic low back pain, sacral decubitus wound Patient also had anterior abdominal wound which been healing . Had a PEG tube in the past that was removed in April 2020 Patient is at baseline is nonambulatory. Yesterday afternoon started having lower abdominal pain. Present for some time. No nausea vomiting. Appetite has been fair. Patient normally empties his ostomy 1 once a day. Spiked a fever of 101.5 in the ER.. [facility] the ER. Found to have infected appearing urine. And a positive lactic acid. Started on IV vancomycin and ceftriaxone. ID was consulted. This morning feeling a bit better. Did tolerate some diet. Review of systems: GEN.: Tired EYES: None HEENT: None NECK: None RESPIRATORY: None CARDIOVASCULAR: None GASTROINTESTINAL: As above GENITOURINARY: None MUSCULOSKELETAL: Joint pains LYMPHATICS: None HEMATOLOGICAL: None PSYCHIATRY: None NEUROLOGICAL: Patient on ambulatory Past medical history: Coronary artery disease with stent and bypass, atrial flutter, hypertension, hyperlipidemia, osteoporosis status, BPH, hypothyroid, sigmoid diverticulitis with perforation, intra-abdominal abscess, gout, PTSD, colostomy, pneumonia, Social history: Patient is an [employer] . Did smoke a pipe and cigar stopped 1971. At home with . Physical examination: VITAL SIGNS: 101.5, 70, 20, 107/54, 93% room air upon presentation GENERAL: BMI 33.7, laying in bed, awake, not in distress. EYES: Pupils equal. Conjunctiva normal. HEENT: External appearance of nose and ears normal, oral cavity grossly normal. NECK: JVD not raised; masses not palpable. HEART: First and second heart sounds are normal; no edema. LUNGS:[ Respiratory rate normal; decreased breath sounds. ABDOMEN: Soft, no tenderness, no guarding no rigidity, liver spleen not palpable, no masses palpable, bowel sounds present. Colostomy bag on the right side. abdominal wall stoma on the left side, superficial wound with dressing . Area of discoloration and redness with some scar on the right side. PSYCH: AO - times three. Mood and affect normal NEUROLOGICAL: decreased power both lower extremities, DERMATOLOGICAL: Sacral wound Investigations reviewed in the clinical context White count 8.3 hemoglobin 11.7 platelets 200 potassium 4 creatinine 0.91 lactic acid 2.4 Troponin I 0.039, 0.053, 0.038 UA positive for leukoesterase WBC COVID 19: Not detected EKG tracing personally reviewed by me-sinus rhythm. Rate 70. Right bundle- branch block. Chest x-ray film personally reviewed by me-no infiltrates. Some elevation of right diaphragm. Assessment and plan: -Sepsis secondary to UTI. Patient has no respiratory symptoms. IV vancomycin. IV ceftriaxone. Consult ID. -Acute UTI with cystitis IV antibiotics -Chronic sacral wound decubitus . Local wound care and follow with ID -Right bundle-branch block -Paroxysmal atrial flutter, currently sinus rhythm Telemetry. 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 IV fluids. IV vancomycin and IV ceftriaxone. Urine culture pending. ID consulted. Wound care. Care was discussed with the patient. Questions answered. Given the complexity and severity of patient's condition expect the patient to be in the hospital at least for 2 overnights Past Medical History Past Medical History: Atrial Fibrillation, Atrial Flutter, Coronary Artery Disease (CAD), Chest Pain / Angina, CVA/TIA, Hyperlipidemia, Hypertension, Myocardial Infarction (NM), Osteoarthritis (OA), Prostate Disorder, Skin Disorder, Thyroid Disorder Additional Past Medical History / Comment(s): Diverticulitis, HX PERFORATION. Gout. Eczema. BPH. Chronic Back Pain D/T PINCHED NERVE, has been bedridden since September. HX VERTIGO. FOOD GETTING STUCK IN THROAT - REMOVAL X3. Last Myocardial Infarction Date:: 08/2015 History of Any Multi-Drug Resistant Organisms: MRSA, Other MDRO, VRE Date of last positivie culture/infection: 01/16/21 MRSA 02/24/19 VRE MDRO Source:: Abdomen-MRSA & VRE Past Surgical History: Bowel Resection, Cardiac Ablation, Coronary Bypass/CABG, Heart Catheterization With Stent, Tonsillectomy Additional Past Surgical History / Comment(s): 02/11/16 Cardiac stent to SVG to diagonal; TOTAL 3 NOW. CABG X3 0n 07/11/15. CYST REMOVED FROM HEART 1958; LEFT TESTICLE REMOVED; МАРИНА CATARACTS. EGD W/ REMOVAL FB X3. Ostomy which failed, and redone. Colostomy since September 2018. Issues with sepsis since. At [facility] family was told Rene had a VAP which was drug resistant, unsure of type, November 2018. 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 Smoking Status: Never smoker Past Alcohol Use History: None Reported Additional Past Alcohol Use History / Comment(s): Hx cigar/pipe smoker from teen. quit smoking 1972 Past Drug Use History: None Reported - Past Family History Mother Family Medical History: Unable to Obtain Additional Family Medical History / Comment(s): Mother had a pacemaker. Father History Unknown: Yes Family Medical History: Myocardial Infarction (NM) Medications and Allergies Home Medications Medication Instructions Recorded Confirmed Type Nitroglycerin Sl Tabs [Nitrostat] 0.4 mg SL Q5M PRN 02/10/16 08/19/21 History Aspirin 81 mg PO DAILY@0800 04/09/16 08/19/21 History Levothyroxine Sodium [Synthroid] 100 mcg PO DAILY@0802/21/19 08/19/21 History Tamsulosin HCl [Flomax] 0.4 mg PO HS@199902/21/19 08/19/21 History HYDROcodone/APAP 10-325MG [[place] 1 tab PO TID PRN 04/25/19 08/19/21 History 10-325] Atorvastatin [Lipitor] 20 mg PO HS@199904/16/20 08/19/21 History Baclofen 5 mg PO BID@0800,199904/16/20 08/19/21 History amLODIPine [Norvasc] 2.5 mg PO HS@199904/16/20 08/19/21 History ALPRAZolam [Xanax] 0.25 mg PO TID PRN 10/23/20 08/19/21 History Lactulose [Constulose] 10 gm PO BID PRN 10/23/20 08/19/21 History Rivaroxaban [Xarelto] 10 mg PO DAILY@1700 10/23/20 08/19/21 History Ferrous Sulfate [Iron (65 MG 325 mg PO DAILY@0800 01/28/21 08/19/21 History Elemental)] Multivitamins, Thera [Multivitamin 1 tab PO DAILY@0800 01/28/21 08/19/21 History (formulary)] Cranberry Fruit Extract [Cranberry] 500 mg PO HS@199906/11/21 08/19/21 History Docusate [Colace] 100 mg PO TID@0800,170,199906/11/21 08/19/21 History Pregabalin [Lyrica] 100 mg PO BID@0800,199906/11/21 08/19/21 History Pantoprazole [Protonix] 40 mg PO AC-BRKFST 30 Days #30 tab 06/17/21 08/19/21 Rx Glimepiride [Amaryl] 2 mg PO AC-BRKFST 08/19/21 08/19/21 History Insulin Glargine,Hum.rec.anlog 10 unit SQ HS@199908/19/21 08/19/21 History [Lantus Solostar Pen] Metoprolol Tartrate [Lopressor] 37.5 mg PO BID@0800,199908/19/21 08/19/21 History SILVER sulfADIAZINE Cream 1 applic TOPICAL BID 08/19/21 08/19/21 History [Silvadene 1% Cream] Allergies Allergy/AdvReac Type Severity Reaction Status Date / Time No Known Allergies Allergy Verified 08/19/21 21:39 Physical Exam Vitals: Vital Signs Temp Pulse Pulse Resp BP BP Pulse Ox 08/20/21 08:35 97.6 F 64 16 103/56 95 08/20/21 05:03 97.5 F L 49 L 14 110/50 95 08/20/21 04:20 97 F L 51 L 16 106/45 94 L 08/20/21 02:00 54 L 18 107/74 95 08/19/21 21:37 101.5 F H 70 20 107/54 93 L Intake and Output 08/19/21 08/20/21 08/20/21 22:59 06:59 14:59 Intake Total 180 Balance 180 Intake: Oral 180 Other: Voiding Method Urinal Urinal # Voids 0 Weight 103.873 kg 100.5 kg Results CBC & Chem 7: 08/19/21 22:16 08/19/21 22:16 Labs: Abnormal Lab Results - Last 24 Hours (Table) 08/19/21 08/19/21 08/19/21 Range/Units 22:16 22:16 22:16 RBC 4.17 L (4.30-5.90) m/uL Hgb 11.7 L (13.0-17.5) gm/dL Hct 37.4 L (39.0-53.0) % RDW 16.0 H (11.5-15.5) % Lymphocytes # 0.5 L (1.0-4.8) k/uL PT 13.3 H (9.0-12.0) sec INR 1.3 H (<1.2) APTT 31.6 H (22.0-30.0) sec Sodium (137-145) mmol/L Glucose (74-99) mg/dL Plasma Lactic Acid Alexey (0.7-2.0) mmol/L Troponin I (0.000-0.034) ng/mL Albumin (3.5-5.0) g/dL Urine Protein 1+ H (Negative) Urine Ketones Trace H (Negative) Urine Blood Moderate H (Negative) Ur Leukocyte Esterase Large H (Negative) Urine RBC >182 H (0-5) /hpf Urine WBC >182 H (0-5) /hpf Urine WBC Clumps Few H (None) /hpf Urine Bacteria Rare H (None) /hpf Urine Mucus Few H (None) /hpf 08/19/21 08/19/21 08/19/21 Range/Units 22:16 22:16 22:16 RBC (4.30-5.90) m/uL Hgb (13.0-17.5) gm/dL Hct (39.0-53.0) % RDW (11.5-15.5) % Lymphocytes # (1.0-4.8) k/uL PT (9.0-12.0) sec INR (<1.2) APTT (22.0-30.0) sec Sodium 135 L (137-145) mmol/L Glucose 146 H (74-99) mg/dL Plasma Lactic Acid Alexey 2.4 H* (0.7-2.0) mmol/L Troponin I 0.039 H* (0.000-0.034) ng/mL Albumin 3.4 L (3.5-5.0) g/dL Urine Protein (Negative) Urine Ketones (Negative) Urine Blood (Negative) Ur Leukocyte Esterase (Negative) Urine RBC (0-5) /hpf Urine WBC (0-5) /hpf Urine WBC Clumps (None) /hpf Urine Bacteria (None) /hpf Urine Mucus (None) /hpf 08/20/21 08/20/21 Range/Units 04:05 07:20 RBC (4.30-5.90) m/uL Hgb (13.0-17.5) gm/dL Hct (39.0-53.0) % RDW (11.5-15.5) % Lymphocytes # (1.0-4.8) k/uL PT (9.0-12.0) sec INR (<1.2) APTT (22.0-30.0) sec Sodium (137-145) mmol/L Glucose (74-99) mg/dL Plasma Lactic Acid Alexey (0.7-2.0) mmol/L Troponin I 0.053 H* 0.038 H* (0.000-0.034) ng/mL Albumin (3.5-5.0) g/dL Urine Protein (Negative) Urine Ketones (Negative) Urine Blood (Negative) Ur Leukocyte Esterase (Negative) Urine RBC (0-5) /hpf Urine WBC (0-5) /hpf Urine WBC Clumps (None) /hpf Urine Bacteria (None) /hpf Urine Mucus (None) /hpf Microbiology - Last 24 Hours (Table) 08/19/21 22:16 Urine Culture - Preliminary Urine,Voided Thrombosis Risk Factor Assmnt - Choose All That Apply Each Factor Represents 1 point: Medical pt on bed rest, Obesity (BMI >25) Each Risk Factor Represents 3 Points: Age 75 years or older Other congenital or acquired thrombophilia - If yes, enter type in comment: No Thrombosis Risk Factor Assessment Total Risk Factor Score: 5 Thrombosis Risk Factor Assessment Level: High Risk
[2021-08-20] MEDS: DOCUSATE 100 MG CAP PO SCH ×2 (16:40→20:36)
[2021-08-20] MEDS: RIVAROXABAN 10 MG TAB PO SCH (16:40)
[2021-08-20] MEDS ORDERED: VANCOMYCIN 1,500 MG in SODIUM CHLORIDE 0.9% 250 ML IVPB SCH (19:00)
[2021-08-20] MEDS ORDERED: NON FORMULARY DRUG (Cranberry Fruit Extract [Cranberry] 500 MG Tablet) PO SCH (20:00)
[2021-08-20] MEDS: amLODIPine 2.5 MG TAB PO SCH (20:37)
[2021-08-20] MEDS: TAMSULOSIN 0.4 MG CAP.ER.24H PO SCH (20:37)
[2021-08-20] MEDS: ATORVASTATIN 20 MG TAB PO SCH (20:37)
[2021-08-20] MEDS: HYDROPHILIC CREAM 180 GM TUBE TOPICAL SCH (20:38)
[2021-08-20 20:39] LABS: Glucose,Whole Blood 153 mg/dL (75-99)
[2021-08-20] MEDS: INSULIN DETEMIR (LEVEMIR) 100 UNIT/ML SYR SQ SCH (20:45)
[2021-08-21] MEDS: HYDROcodone/APAP 10-325MG 1 EACH TAB PO PRN ×2 (06:26→20:10)
[2021-08-21] MEDS: PANTOPRAZOLE 40 MG TABLET PO SCH (06:26)
[2021-08-21] MEDS: GLIMEPIRIDE 2 MG TAB PO SCH (06:26)
[2021-08-21] MEDS: SODIUM CHLORIDE 0.9% 1,000 ML IV SCH ×3 (06:28→15:57)
--- NOTE | 2021-08-21 07:20 | P.CONS ---
History of Present Illness - Reason for Consult Consult date: 08/20/21 Pressure ulcer Requesting physician: Cosme Colon - Chief Complaint Fever x one day - History of Present Illness Patient is 85-year-old male with multiple comorbidities including uncomplicated diverticulitis requiring multiple surgery did have a colostomy mucous fistula and a sacral pressure ulcer patient is presenting to the ER last night after the patient having some lower abdominal pain patient denies having any nausea or vomiting and has hardware in his ostomy patient and denies having any chest pain or shortness of breath or cough patient on presentation to the hospital have a fever of 101.5 F, patient was not hypoxic or need for supplemental oxygen, patient denies having any worsening pain to his sacral wound area and his lower abdominal pain seem to have resolved on presenting to the hospital the patient will did have normal white count did have elevated troponin creatinine has been normal liver exams are normal patient did have positive UA with large leukocyte esterase more than 22 WBC leslie PCR was negative patient did have a chest x-ray mild atelectasis right lung base no heart failure no change compared to old exam patient was started on Rocephin 1 g every 12 infectious disease was consulted for further management of antibiotic t herapy Review of Systems Positive point has been mentioned in the HPI rest of the systems are negative Past Medical History Past Medical History: Atrial Fibrillation, Atrial Flutter, Coronary Artery Disease (CAD), Chest Pain / Angina, CVA/TIA, Hyperlipidemia, Hypertension, Myocardial Infarction (SD), Osteoarthritis (OA), Prostate Disorder, Skin Disorder, Thyroid Disorder Additional Past Medical History / Comment(s): Diverticulitis, HX PERFORATION. Gout. Eczema. BPH. Chronic Back Pain D/T PINCHED NERVE, has been bedridden since September. HX VERTIGO. FOOD GETTING STUCK IN THROAT - REMOVAL X3. 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 CABG X3 0n 07/11/15. CYST REMOVED FROM HEART 1958; LEFT TESTICLE REMOVED; МАРИНА CAT[employer]S. EGD W/ REMOVAL FB X3. Ostomy which failed, and redone. Colostomy since September 2018. Issues with sepsis since. 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 Past Anesthesia/Blood Transfusion Reactions: No Reported Reaction Additional Past Anesthesia/Blood Transfusion Reaction / Comm: no family hx Date of Last Stent Placement:: 02/11/16 Past Psychological History: PTSD Additional Psychological History / Comment(s): Pt is a [place] . He served in the [employer]. Has night terrors. Smoking Status: Never smoker Past Alcohol Use History: None Reported Additional Past Alcohol Use History / Comment(s): Hx cigar/pipe smoker from teen. quit smoking 1972 Past Drug Use History: None Reported - Past Family History Mother Family Medical History: Unable to Obtain Additional Family Medical History / Comment(s): Mother had a pacemaker. Father History Unknown: Yes Family Medical History: Myocardial Infarction (SD) Medications and Allergies Home Medications Medication Instructions Recorded Confirmed Type Nitroglycerin Sl Tabs [Nitrostat] 0.4 mg SL Q5M PRN 02/10/16 08/19/21 History Aspirin 81 mg PO DAILY@0800 04/09/16 08/19/21 History Levothyroxine Sodium [Synthroid] 100 mcg PO DAILY@0800 02/21/19 08/19/21 History Tamsulosin HCl [Flomax] 0.4 mg PO HS@199902/21/19 08/19/21 History HYDROcodone/APAP 10-325MG [Naylor 1 tab PO TID PRN 04/25/19 08/19/21 History 10-325] Atorvastatin [Lipitor] 20 mg PO HS@199904/16/20 08/19/21 History Baclofen 5 mg PO BID@0800,199904/16/20 08/19/21 History amLODIPine [Norvasc] 2.5 mg PO HS@199904/16/20 08/19/21 History ALPRAZolam [Xanax] 0.25 mg PO TID PRN 10/23/20 08/19/21 History Lactulose [Constulose] 10 gm PO BID PRN 10/23/20 08/19/21 History Rivaroxaban [Xarelto] 10 mg PO DAILY@1700 07/15/21 05/11/22 History Ferrous Sulfate [Iron (65 MG 325 mg PO DAILY@0800 01/28/21 08/19/21 History Elemental)] Multivitamins, Thera [Multivitamin 1 tab PO DAILY@0800 01/28/21 08/19/21 History (formulary)] Cranberry Fruit Extract [Cranberry] 500 mg PO HS@199906/11/21 08/19/21 History Docusate [Colace] 100 mg PO TID@0800,170,199906/11/21 08/19/21 History Pregabalin [Lyrica] 100 mg PO BID@08,199906/11/21 08/19/21 History Pantoprazole [Protonix] 40 mg PO AC-BRKFST 30 Days #30 tab 06/17/21 08/19/21 Rx Glimepiride [Amaryl] 2 mg PO AC-BRKFST 08/19/21 08/19/21 History Insulin Glargine,Hum.rec.anlog 10 unit SQ HS@199908/19/21 08/19/21 History [Lantus Solostar Pen] Metoprolol Tartrate [Lopressor] 37.5 mg PO BID@08,199908/19/21 08/19/21 History SILVER sulfADIAZINE Cream 1 applic TOPICAL BID 08/19/21 08/19/21 History [Silvadene 1% Cream] Allergies Allergy/AdvReac Type Severity Reaction Status Date / Time No Known Allergies Allergy Verified 08/19/21 21:39 Physical Exam Vitals: Vital Signs Temp Pulse Pulse Resp BP BP Pulse Ox 08/20/21 08:35 97.6 F 64 16 103/56 95 08/20/21 05:03 97.5 F L 49 L 14 110/50 95 08/20/21 04:20 97 F L 51 L 16 106/45 94 L 08/20/21 02:00 54 L 18 107/74 95 08/19/21 21:37 101.5 F H 70 20 107/54 93 L Intake and Output 08/19/21 08/20/21 08/20/21 22:59 06:59 14:59 Intake Total 180 Balance 180 Intake: Oral 180 Other: Voiding Method Urinal Urinal # Voids 0 Weight 103.873 kg 100.5 kg GENERAL DESCRIPTION: Elderly male lying in bed, no distress. No tachypnea or accessory muscle of respiration use. HEENT: Shows Pallor , no scleral icterus. Oral mucous membrane is dry. No pharyngeal erythema or thrush NECK: Trachea central, no thyromegaly. LUNGS: Unlabored breathing. Decreased breath sounds at the Base. No wheeze or crackle. HEART: S1, S2, regular rate and rhythm. No loud murmur ABDOMEN: Soft, no tenderness , guarding or rigidity, no organomegaly EXTREMITIES: No edema of feet. SKIN: No rash, no masses palpable. Stage II sacral pressure ulcer with no slough tissue did have significant excoriation NEUROLOGICAL: The patient is awake, alert, oriented x3, mood and affect normal. Results CBC & Chem 7: 08/19/21 22:16 08/19/21 22:16 Labs: Abnormal Lab Results - Last 24 Hours (Table) 08/19/21 08/19/21 08/19/21 Range/Units 22:16 22:16 22:16 RBC 4.17 L (4.30-5.90) m/uL Hgb 11.7 L (13.0-17.5) gm/dL Hct 37.4 L (39.0-53.0) % RDW 16.0 H (11.5-15.5) % Lymphocytes # 0.5 L (1.0-4.8) k/uL PT 13.3 H (9.0-12.0) sec INR 1.3 H (<1.2) APTT 31.6 H (22.0-30.0) sec Sodium (137-145) mmol/L Glucose (74-99) mg/dL Plasma Lactic Acid Alexey (0.7-2.0) mmol/L Troponin I (0.000-0.034) ng/mL Albumin (3.5-5.0) g/dL Urine Protein 1+ H (Negative) Urine Ketones Trace H (Negative) Urine Blood Moderate H (Negative) Ur Leukocyte Esterase Large H (Negative) Urine RBC >182 H (0-5) /hpf Urine WBC >182 H (0-5) /hpf Urine WBC Clumps Few H (None) /hpf Urine Bacteria Rare H (None) /hpf Urine Mucus Few H (None) /hpf 08/19/21 08/19/21 08/19/21 Range/Units 22:16 22:16 22:16 RBC (4.30-5.90) m/uL Hgb (13.0-17.5) gm/dL Hct (39.0-53.0) % RDW (11.5-15.5) % Lymphocytes # (1.0-4.8) k/uL PT (9.0-12.0) sec INR (<1.2) APTT (22.0-30.0) sec Sodium 135 L (137-145) mmol/L Glucose 146 H (74-99) mg/dL Plasma Lactic Acid Alexey 2.4 H* (0.7-2.0) mmol/L Troponin I 0.039 H* (0.000-0.034) ng/mL Albumin 3.4 L (3.5-5.0) g/dL Urine Protein (Negative) Urine Ketones (Negative) Urine Blood (Negative) Ur Leukocyte Esterase (Negative) Urine RBC (0-5) /hpf Urine WBC (0-5) /hpf Urine WBC Clumps (None) /hpf Urine Bacteria (None) /hpf Urine Mucus (None) /hpf 08/20/21 08/20/21 Range/Units 04:05 07:20 RBC (4.30-5.90) m/uL Hgb (13.0-17.5) gm/dL Hct (39.0-53.0) % RDW (11.5-15.5) % Lymphocytes # (1.0-4.8) k/uL PT (9.0-12.0) sec INR (<1.2) APTT (22.0-30.0) sec Sodium (137-145) mmol/L Glucose (74-99) mg/dL Plasma Lactic Acid Alexey (0.7-2.0) mmol/L Troponin I 0.053 H* 0.038 H* (0.000-0.034) ng/mL Albumin (3.5-5.0) g/dL Urine Protein (Negative) Urine Ketones (Negative) Urine Blood (Negative) Ur Leukocyte Esterase (Negative) Urine RBC (0-5) /hpf Urine WBC (0-5) /hpf Urine WBC Clumps (None) /hpf Urine Bacteria (None) /hpf Urine Mucus (None) /hpf Microbiology - Last 24 Hours (Table) 08/19/21 22:16 Urine Culture - Preliminary Urine,Voided Assessment and Plan (1) Fever Current Visit: Yes Status: Acute Code(s): R50.9 - FEVER, UNSPECIFIED SNOMED Code(s): 400665245 Plan: 1patient presented to hospital with lower abdominal pain fever and did have significantly positive UA more likely related to urinary tract infection from enteric gram-negative pathogen with resolution of the fever with Rocephin more likely Rocephin sensitive pathogen. 2patient did have a stage II sacral pressure ulcer with some surrounding excoriation but no definite cellulitis. 3some abdominal wall excoriation but no definite cellulitis. 4we will change Rocephin to 2 g daily while waiting for urine culture to be finalized. 5we will apply Triad cream to the sacral wound area and keep the area of the pressure and dry We will follow on clinical condition and cultures to further adjust medication if needed Thank you for this consultation will follow this patient along with you Time with Patient: Greater than 30
[2021-08-21 07:49] LABS: Basophils % (A) 1 %; Eosinophils # (A) 0.3 k/uL (0-0.7); Eosinophils % (A) 5 %; HCT 36.2 % (39.0-53.0); HGB 10.8 gm/dL (13.0-17.5); Hypochromasia Marked; Lymphocytes # (A) 0.7 k/uL (1.0-4.8); Lymphocytes % (A) 10 %; MCH 27.2 pg (25.0-35.0); MCHC 29.7 g/dL (31.0-37.0); MCV 91.8 fL (80.0-100.0); Mean Platelet Volume 7.8; Monocytes # (A) 0.5 k/uL (0-1.0); Monocytes % (A) 8 %; Neutrophils # (A) 4.8 k/uL (1.3-7.7); Neutrophils % (A) 74 %; Platelet Count 181 k/uL (150-450); RBC 3.95 m/uL (4.30-5.90); RDW 15.5 % (11.5-15.5); WBC 6.5 k/uL (3.8-10.6)
[2021-08-21 08:01] LABS: Calcium 8.1 mg/dL (8.4-10.2); Total Bilirubin 0.4 mg/dL (0.2-1.3); Total Protein 6.3 g/dL (6.3-8.2)
[2021-08-21] MEDS: METOPROLOL TARTRATE 25 MG TAB PO SCH ×2 (08:29→20:09)
[2021-08-21] MEDS: ASPIRIN 81 MG PO SCH (08:29)
[2021-08-21] MEDS: DOCUSATE 100 MG CAP PO SCH ×3 (08:29→20:09)
[2021-08-21] MEDS: PREGABALIN 100 MG CAP PO SCH ×2 (08:29→20:09)
[2021-08-21] MEDS: BACLOFEN 10 MG TAB PO SCH ×2 (08:29→20:09)
[2021-08-21] MEDS: MULTIVITAMINS, THERA 1 EACH TAB PO SCH (08:30)
[2021-08-21] MEDS: FERROUS SULFATE 325 MG TAB PO SCH (08:30)
[2021-08-21] MEDS: LEVOTHYROXINE 100 MCG TAB PO SCH (08:30)
[2021-08-21] MEDS: HYDROPHILIC CREAM 180 GM TUBE TOPICAL SCH ×2 (08:31→21:30)
[2021-08-21] MEDS: VANCOMYCIN 2,000 MG in SODIUM CHLORIDE 0.9% 500 ML 500 ML IVPB SCH (11:54)
[2021-08-21] MEDS: ALPRAZolam 0.25 MG TAB PO PRN (14:44)
[2021-08-21] MEDS: RIVAROXABAN 10 MG TAB PO SCH (16:58)
--- NOTE | 2021-08-21 17:27 | P.PN ---
Progress Note - Text Progress Note Date: 08/21/21 Chief Complaint: Abdominal pain Hospital course: This is a very pleasant 85-year-old patient of Dr. Lopez. October 2018. - acute perforated diverticulitis- sigmoid colectomy,-with the right abdominal wall colostomy. being followed by Dr. Woodward from general surgery and Dr. Park from infectious disease. did have a colostomy in the past and had revision that was done at [facility].chronic stable medical conditions include gout, BPH, chronic low back pain, sacral decubitus wound Patient also had anterior abdominal wound which been healing . Had a PEG tube in the past that was removed in April 2020 Patient is at baseline is nonambulatory. Yesterday afternoon started having lower abdominal pain. Present for some time. No nausea vomiting. Appetite has been fair. Patient normally empties his ostomy 1 once a day. Spiked a fever of 101.5 in the ER.. [facility] the ER. Found to have infected appearing urine. And a positive lactic acid. Started on IV vancomycin and ceftriaxone. ID was consulted. This morning feeling a bit better. Did tolerate some diet. August 21: Oral intake fair. Colostomy working. No fever. Urine culture growing gram-negative bacilli. On IV antibiotics. No abdominal pain. Discussed with patient Active Medications Acetaminophen (Acetaminophen Tab 325 Mg Tab) 650 mg PO Q6HR PRN PRN Reason: Mild Pain or Fever > 100.5 Hydrocodone Bitart/Acetaminophen (Hydrocodone/Apap 10-325mg 1 Each Tab) 1 each PO TID PRN PRN Reason: Pain Last Admin: 08/21/21 06:26 Dose: 1 each Documented by: Alprazolam (Alprazolam 0.25 Mg Tab) 0.25 mg PO TID PRN PRN Reason: Anxiety Last Admin: 08/21/21 14:44 Dose: 0.25 mg Documented by: Amlodipine Besylate (Amlodipine 2.5 Mg Tab) 2.5 mg PO HS@1999 [facility] Last Admin: 08/20/21 20:37 Dose: 2.5 mg Documented by: Aspirin (Aspirin 81 Mg) 81 mg PO DAILY@0800 [facility] Last Admin: 08/21/21 08:29 Dose: 81 mg Documented by: Atorvastatin Calcium (Atorvastatin 20 Mg Tab) 20 mg PO HS@1999 [facility] Last Admin: 08/20/21 20:37 Dose: 20 mg Documented by: Baclofen (Baclofen 10 Mg Tab) 5 mg PO BID@ [facility] Last Admin: 08/21/21 08:29 Dose: 5 mg Documented by: Docusate Sodium (Docusate 100 Mg Cap) 100 mg PO TID@08,1699,1999 [facility] Last Admin: 08/21/21 16:58 Dose: 100 mg Documented by: Ferrous Sulfate (Ferrous Sulfate 325 Mg Tab) 325 mg PO DAILY@0800 [facility] Last Admin: 08/21/21 08:30 Dose: 325 mg Documented by: Glimepiride (Glimepiride 2 Mg Tab) 2 mg PO AC-BRKFST [facility] Last Admin: 08/21/21 06:26 Dose: 2 mg Documented by: Sodium Chloride (Saline 0.9%) 1,000 mls @ 130 mls/hr IV .Q7H42M [facility] Last Admin: 08/21/21 15:57 Dose: Not Given Documented by: Ceftriaxone Sodium 2 gm/ (Sodium Chloride) 50 mls @ 100 mls/hr IVPB Q24HR [facility] Last Admin: 08/21/21 09:41 Dose: 100 mls/hr Documented by: Vancomycin HCl 2,000 mg/ (Sodium Chloride) 500 mls @ 167 mls/hr IVPB Q16H [facility] Last Admin: 08/21/21 11:54 Dose: 167 mls/hr Documented by: Insulin Detemir (Insulin Detemir (Levemir) 100 Unit/Ml Syr) 10 unit SQ HS@1999 [facility] Last Admin: 08/20/21 20:45 Dose: 10 unit Documented by: Lactulose (Lactulose 20 Gm/30 Ml Cup) 10 gm PO BID PRN PRN Reason: Constipation Levothyroxine Sodium (Levothyroxine 100 Mcg Tab) 100 mcg PO DAILY@0800 [facility] Last Admin: 08/21/21 08:30 Dose: 100 mcg Documented by: Metoprolol Tartrate (Metoprolol Tartrate 25 Mg Tab) 37.5 mg PO BID@ [facility] Last Admin: 08/21/21 08:29 Dose: 37.5 mg Documented by: Miscellaneous Information (Vancomycin Trough Due 1 Each Misc) 0 each MISCELLANE DIRECTED ONE Stop: 08/23/21 10:01 Morphine Sulfate (Morphine Sulfate 4 Mg/Ml Syringe) 4 mg IV Q4HR PRN PRN Reason: Severe Pain Last Admin: 08/20/21 08:49 Dose: 4 mg Documented by: Multi-Ingred Cream/Lotion/Oil/Oint (Hydrophilic Cream 180 Gm Tube) 1 applic TOPICAL BID [facility]; Protocol Last Admin: 08/21/21 08:31 Dose: 1 applic Documented by: Multivitamins (Multivitamins, Thera 1 Each Tab) 1 each PO DAILY@08 [facility] Last Admin: 08/21/21 08:30 Dose: 1 each Documented by: Naloxone HCl (Naloxone 0.4 Mg/Ml 1 Ml Vial) 0.2 mg IV Q2M PRN PRN Reason: Opioid Reversal Nitroglycerin (Nitroglycerin Sl Tabs 0.4 Mg Tab) 0.4 mg SUBLINGUAL Q5M PRN PRN Reason: Chest Pain Ondansetron HCl (Ondansetron 4 Mg/2 Ml Vial) 4 mg IVP Q8HR PRN PRN Reason: Nausea And Vomiting Pantoprazole Sodium (Pantoprazole 40 Mg Tablet) [facility] Last Admin: 08/21/21 06:26 Dose: 40 mg Documented by: Pregabalin (Pregabalin 100 Mg Cap) 100 mg PO BID@799,1999 [facility] Last Admin: 08/21/21 08:29 Dose: 100 mg Documented by: Rivaroxaban (Rivaroxaban 10 Mg Tab) 10 mg PO DAILY@1700 [facility]; Protocol Last Admin: 08/21/21 16:58 Dose: 10 mg Documented by: Silver Sulfadiazine (Silver Sulfadiazine 1% Cream 25 Gm Tube) 1 applic TOPICAL BID [facility] Last Admin: 08/21/21 08:31 Dose: 1 applic Documented by: Tamsulosin HCl (Tamsulosin 0.4 Mg Cap.Er.24h) 0.4 mg PO HS@1999 [facility] Last Admin: 08/20/21 20:37 Dose: 0.4 mg Documented by: Past medical history: Coronary artery disease with stent and bypass, atrial flutter, hypertension, hyperlipidemia, osteoporosis status, BPH, hypothyroid, sigmoid diverticulitis with perforation, intra-abdominal abscess, gout, PTSD, colostomy, pneumonia, Social history: Patient is an [employer] . Did smoke a pipe and cigar stopped 1971. At home with . Physical examination: VITAL SIGNS: 98.3, 62, 16, 149-74, 94% room air GENERAL:, laying in bed, awake, not in distress. EYES: Pupils equal. Conjunctiva normal. HEENT: External appearance of nose and ears normal, oral cavity grossly normal. NECK: JVD not raised; masses not palpable. HEART: First and second heart sounds are normal; no edema. LUNGS:[ Respiratory rate normal; decreased breath sounds. ABDOMEN: Soft, no tenderness, no guarding no rigidity, liver spleen not palpable, no masses palpable, bowel sounds present. Colostomy bag on the right side. abdominal wall stoma on the left side, superficial wound with dressing . Area of discoloration and redness with some scar on the right side. PSYCH: AO - times three. Mood and affect normal NEUROLOGICAL: decreased power both lower extremities, DERMATOLOGICAL: Sacral wound Investigations reviewed in the clinical context August 21: White count 6.5 hemoglobin 10.8 platelets 181 potassium 4 creatinine 0.96 White count 8.3 hemoglobin 11.7 platelets 200 potassium 4 creatinine 0.91 lactic acid 2.4 Troponin I 0.039, 0.053, 0.038 UA positive for leukoesterase WBC COVID 19: Not detected EKG tracing personally reviewed by me-sinus rhythm. Rate 70. Right bundle- branch block. Chest x-ray film personally reviewed by me-no infiltrates. Some elevation of right diaphragm. Assessment and plan: -Sepsis secondary to UTI. Patient has no respiratory symptoms. IV vancomycin. IV ceftriaxone. Consult ID. -Acute UTI with cystitis from gram-negative bacilli IV antibiotics -Chronic sacral wound decubitus . Local wound care and follow with ID -Right bundle-branch block -Paroxysmal atrial flutter, currently sinus rhythm Telemetry. 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 -Hyperlipidemia Lipitor -Essential hypertension Amlodipine, Lopressor -Primary osteoarthritis Pain medications, as needed -BPH On Flomax -Hypothyroidism Synthroid -Chronic gout -PTSD - is the DPOA, and the elder son is also the agent for medical advocate for the Continue IV vancomycin and IV ceftriaxone. Urine culture pending. Wound care to continue. Discussed with patient.
[2021-08-21] MEDS: ATORVASTATIN 20 MG TAB PO SCH (20:09)
[2021-08-21] MEDS: amLODIPine 2.5 MG TAB PO SCH (20:09)
[2021-08-21] MEDS: TAMSULOSIN 0.4 MG CAP.ER.24H PO SCH (20:09)
[2021-08-21] MEDS: INSULIN DETEMIR (LEVEMIR) 100 UNIT/ML SYR SQ SCH (20:37)
[2021-08-22] MEDS: SODIUM CHLORIDE 0.9% 1,000 ML IV SCH ×3 (00:08→15:07)
[2021-08-22] MEDS: ALPRAZolam 0.25 MG TAB PO PRN ×2 (00:12→15:11)
[2021-08-22] MEDS: VANCOMYCIN 2,000 MG in SODIUM CHLORIDE 0.9% 500 ML 500 ML IVPB SCH (03:35)
[2021-08-22] MEDS: MORPHINE SULFATE 4 MG/ML SYRINGE IV PRN (03:36)
[2021-08-22] MEDS: PANTOPRAZOLE 40 MG TABLET PO SCH (07:04)
[2021-08-22] MEDS: GLIMEPIRIDE 2 MG TAB PO SCH (07:04)
[2021-08-22] MEDS: LEVOTHYROXINE 100 MCG TAB PO SCH (08:53)
[2021-08-22] MEDS: DOCUSATE 100 MG CAP PO SCH (08:53)
[2021-08-22] MEDS: FERROUS SULFATE 325 MG TAB PO SCH (08:53)
[2021-08-22] MEDS: ASPIRIN 81 MG PO SCH (08:53)
[2021-08-22] MEDS: BACLOFEN 10 MG TAB PO SCH (08:53)
[2021-08-22] MEDS: MULTIVITAMINS, THERA 1 EACH TAB PO SCH (08:54)
[2021-08-22] MEDS: PREGABALIN 100 MG CAP PO SCH (08:54)
[2021-08-22] MEDS: METOPROLOL TARTRATE 25 MG TAB PO SCH (08:54)
[2021-08-22] MEDS: HYDROcodone/APAP 10-325MG 1 EACH TAB PO PRN (09:00)
[2021-08-22 09:15] LABS: African American GFR (CKD) >90 (>60 ml/min/1.73 sqM); Non-African American GFR(CKD) 82 (>60 ml/min/1.73 sqM)
--- NOTE | 2021-08-22 13:54 | P.PN ---
Subjective Progress Note Date: 08/21/21 Principal diagnosis: Fever UTI and sacral pressure ulcer Patient is 85-year-old male with multiple comorbidities in this patient did have a history of perforated diverticulitis requiring diverting colostomy and mucous fistula, did have a sacral pressure ulcer present in the hospital with a fever concerning for possible UTI. On today's evaluation that is 08/21/2021, the patient is afebrile the patient is breathing comfortably denies having any chest pain shortness of breath or cough currently on combination of abdominal pain or any worsening pain to the sacral area Objective - Vital Signs Vital signs: Vital Signs Temp 98.2 F 08/21/21 08:37 Pulse 76 08/21/21 08:37 Resp 16 08/21/21 08:37 BP 98/42 08/21/21 08:37 Pulse Ox 92 L 08/21/21 08:37 Intake & Output 08/20/21 08/21/21 08/21/21 18:59 06:59 18:59 Intake Total 180 400 Output Total 450 850 Balance -270 -850 400 Weight 100.5 kg 113 kg Intake: Oral 180 400 Output: Urine 450 850 Other: Voiding Method Urinal External Catheter External Catheter - Exam GENERAL DESCRIPTION: An elderly male lying in bed in no distress RESPIRATORY SYSTEM: Unlabored breathing , decreased breath sounds at bases HEART: S1 S2 regular rate and rhythm , ABDOMEN: Soft , no tenderness Sacral area with excoriation and ulceration but no foul-smelling drainage EXTREMITIES: No edema feet - Labs CBC & Chem 7: 08/21/21 06:53 08/22/21 08:34 Labs: Abnormal Lab Results - Last 24 Hours (Table) 08/20/21 08/21/21 08/21/21 Range/Units 20:37 06:53 06:53 RBC 3.95 L (4.30-5.90) m/uL Hgb 10.8 L (13.0-17.5) gm/dL Hct 36.2 L (39.0-53.0) % MCHC 29.7 L (31.0-37.0) g/dL Lymphocytes # 0.7 L (1.0-4.8) k/uL POC Glucose (mg/dL) 153 H (75-99) mg/dL Calcium 8.1 L (8.4-10.2) mg/dL Albumin 3.0 L (3.5-5.0) g/dL Microbiology - Last 24 Hours (Table) 08/20/21 00:32 Blood Culture - Preliminary Blood No Growth after 24 hours Assessment and Plan (1) Fever Current Visit: Yes Status: Acute Code(s): R50.9 - FEVER, UNSPECIFIED SNOMED Code(s): 296269456 Plan: 1patient presented to hospital with lower abdominal pain fever and did have significantly positive UA more likely related to urinary tract infection from enteric gram-negative pathogen with resolution of the fever with Rocephin more likely Rocephin sensitive pathogen. 2patient did have a stage II sacral pressure ulcer with some surrounding excoriation but no definite cellulitis. 3some abdominal wall excoriation but no definite cellulitis. 4patient to continue with Rocephin to 2 g daily while waiting for urine culture to be finalized. 5we will apply Triad cream to the sacral wound area and keep the area of the pressure and dry Time with Patient: Less than 30
[2021-08-22 13:56] VITALS: TEMP 97.7
[2021-08-22] MEDS ORDERED: LEVOFLOXACIN 750 MG TAB PO STA (14:39)
[2021-08-22] MEDS: HYDROPHILIC CREAM 180 GM TUBE TOPICAL SCH (15:12)
[2021-08-22] MEDS ORDERED: CEFEPIME 2 GM in SODIUM CHLORIDE 0.9% 100 ML IVPB SCH (16:00)
[2021-08-22 18:19] VITALS: BP 131/82; PULSE 64; RESP 18
[2021-08-23] MEDS ORDERED: VANCOMYCIN TROUGH DUE 1 EACH MISC MISCELLANE ONE (10:00)
--- NOTE | 2021-08-23 13:46 | P.DS ---
Providers Date of admission: 08/20/21 00:38 Expected date of discharge: 08/22/21 Attending physician: Cosme Colon Consults: 08/20/21 10:08 Consult Physician Routine Consulting Provider: Gerald Park Consult Reason/Comments: decub ulcer Do you want consulting provider notified?: Yes [facility] Course: Chief Complaint: Abdominal pain Hospital course: This is a very pleasant 85-year-old patient of Dr. Lopez. October 2018. - acute perforated diverticulitis- sigmoid colectomy,-with the right abdominal wall colostomy. being followed by Dr. Woodward from general surgery and Dr. Park from infectious disease. did have a colostomy in the past and had revision that was done at [facility].chronic stable medical conditions include gout, BPH, chronic low back pain, sacral decubitus wound Patient also had anterior abdominal wound which been healing . Had a PEG tube in the past that was removed in April 2020 Patient is at baseline is nonambulatory. Yesterday afternoon started having lower abdominal pain. Present for some time. No nausea vomiting. Appetite has been fair. Patient normally empties his ostomy 1 once a day. Spiked a fever of 101.5 in the ER.. [place] the ER. Found to have infected appearing urine. And a positive lactic acid. Started on IV vancomycin and ceftriaxone. ID was consulted. This morning feeling a bit better. Did tolerate some diet. August 21: Oral intake fair. Colostomy working. No fever. Urine culture growing gram-negative bacilli. On IV antibiotics. No abdominal pain. Discussed with patient August 22: Urine culture came back as pseudomonas aeruginosa. Patient being changed over to Levaquin 750 mg a day. We'll give 10 more days of the same. Patient doing well. No fever no chills. Eating well. Discussion and discharge planning more than 35 minutes Past medical history: Coronary artery disease with stent and bypass, atrial flutter, hypertension, hyperlipidemia, osteoporosis status, BPH, hypothyroid, sigmoid diverticulitis with perforation, intra-abdominal abscess, gout, PTSD, colostomy, pneumonia, Social history: Patient is an [employer] . Did smoke a pipe and cigar stopped 1971. At home with . Physical examination: VITAL SIGNS: 97.7, 64, 18, 131/82, 95% room air GENERAL:, laying in bed, awake, comfortable EYES: Pupils equal. Conjunctiva normal. HEENT: External appearance of nose and ears normal, oral cavity grossly normal. NECK: JVD not raised; masses not palpable. HEART: First and second heart sounds are normal; no edema. LUNGS:[ Respiratory rate normal; decreased breath sounds. ABDOMEN: Soft, no tenderness, no guarding no rigidity, liver spleen not palpable, no masses palpable, bowel sounds present. Colostomy bag on the right side. abdominal wall stoma on the left side, superficial wound with dressing . Area of discoloration and redness with some scar on the right side. PSYCH: AO - times three. Mood and affect normal NEUROLOGICAL: decreased power both lower extremities, DERMATOLOGICAL: Sacral wound Investigations reviewed in the clinical context August 21: White count 6.5 hemoglobin 10.8 platelets 181 potassium 4 creatinine 0.96 White count 8.3 hemoglobin 11.7 platelets 200 potassium 4 creatinine 0.91 lactic acid 2.4 Troponin I 0.039, 0.053, 0.038 UA positive for leukoesterase WBC COVID 19: Not detected EKG tracing personally reviewed by me-sinus rhythm. Rate 70. Right bundle- branch block. Chest x-ray film personally reviewed by me-no infiltrates. Some elevation of right diaphragm. Assessment and plan: -Sepsis secondary to UTI. Patient has no respiratory symptoms. IV vancomycin. IV ceftriaxone. Consult ID. -Acute UTI with cystitis from Pseudomonas aeruginosa Levaquin 750 mg day for 10 days -Chronic sacral wound decubitus . Local wound care and follow with ID -Right bundle-branch block -Paroxysmal atrial flutter, currently sinus rhythm Telemetry. 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 -Hyperlipidemia Lipitor -Essential hypertension Amlodipine, Lopressor -Primary osteoarthritis Pain medications, as needed -BPH On Flomax -Hypothyroidism Synthroid -Chronic gout -PTSD - is the DPOA, and the elder son is also the agent for medical advocate for the Disposition: Home Plan - Discharge Summary New Discharge Prescriptions: New Levofloxacin [Levaquin] 750 mg PO DAILY #10 tab Continue Nitroglycerin Sl Tabs [Nitrostat] 0.4 mg SL Q5M PRN PRN Reason: Chest Pain Aspirin 81 mg PO DAILY@0800 Levothyroxine Sodium [Synthroid] 100 mcg PO DAILY@0800 Tamsulosin HCl [Flomax] 0.4 mg PO HS@1999 HYDROcodone/APAP 10-325MG [[place] 10-325] 1 tab PO TID PRN PRN Reason: Pain amLODIPine [Norvasc] 2.5 mg PO HS@1999 Atorvastatin [Lipitor] 20 mg PO HS@1999 Baclofen 5 mg PO BID@799,1999 Lactulose [Constulose] 10 gm PO BID PRN PRN Reason: Constipation Multivitamins, Thera [Multivitamin (formulary)] 1 tab PO DAILY@0800 Cranberry Fruit Extract [Cranberry] 500 mg PO HS@1999 Pregabalin [Lyrica] 100 mg PO BID@799,1999 Pantoprazole [Protonix] 40 mg PO AC-BRKFST 30 Days #30 tab Metoprolol Tartrate [Lopressor] 37.5 mg PO BID@799,1999 Glimepiride [Amaryl] 2 mg PO AC-RUST Rivaroxaban [Xarelto] 10 mg PO DAILY@1700 ALPRAZolam [Xanax] 0.25 mg PO TID PRN PRN Reason: Anxiety Ferrous Sulfate [Iron (65 MG Elemental)] 325 mg PO DAILY@0800 Docusate [Colace] 100 mg PO TID@0800,1699,1999 SILVER sulfADIAZINE Cream [Silvadene 1% Cream] 1 applic TOPICAL BID Insulin Glargine,Hum.rec.anlog [Lantus Solostar Pen] 10 unit SQ HS@1999 Discharge Medication List Nitroglycerin Sl Tabs [Nitrostat] 0.4 mg SL Q5M PRN 02/10/16 [History] Aspirin 81 mg PO DAILY@0800 04/09/16 [History] Levothyroxine Sodium [Synthroid] 100 mcg PO DAILY@0800 02/21/19 [History] Tamsulosin HCl [Flomax] 0.4 mg PO HS@199902/21/19 [History] HYDROcodone/APAP 10-325MG [[place] 10-325] 1 tab PO TID PRN 04/25/19 [History] Atorvastatin [Lipitor] 20 mg PO HS@199904/16/20 [History] Baclofen 5 mg PO BID@0800,199904/16/20 [History] amLODIPine [Norvasc] 2.5 mg PO HS@199904/16/20 [History] ALPRAZolam [Xanax] 0.25 mg PO TID PRN 10/23/20 [History] Lactulose [Constulose] 10 gm PO BID PRN 10/23/20 [History] Rivaroxaban [Xarelto] 10 mg PO DAILY@1700 10/23/20 [History] Ferrous Sulfate [Iron (65 MG Elemental)] 325 mg PO DAILY@0800 01/28/21 [History] Multivitamins, Thera [Multivitamin (formulary)] 1 tab PO DAILY@0801/28/21 [History] Cranberry Fruit Extract [Cranberry] 500 mg PO HS@199906/11/21 [History] Docusate [Colace] 100 mg PO TID@0800,170,199906/11/21 [History] Pregabalin [Lyrica] 100 mg PO BID@799,199906/11/21 [History] Pantoprazole [Protonix] 40 mg PO AC-BRKFST 30 Days #30 tab 06/17/21 [Rx] Glimepiride [Amaryl] 2 mg PO AC-BRKFST 08/19/21 [History] Insulin Glargine,Hum.rec.anlog [Lantus Solostar Pen] 10 unit SQ HS@199908/19/21 [History] Metoprolol Tartrate [Lopressor] 37.5 mg PO BID@08,199908/19/21 [History] SILVER sulfADIAZINE Cream [Silvadene 1% Cream] 1 applic TOPICAL BID 08/19/21 [History] Levofloxacin [Levaquin] 750 mg PO DAILY #10 tab 08/22/21 [Rx] Follow up Appointment(s)/Referral(s): Dilshad Lopez DO [Primary Care Provider] - 1-2 days (Office closed on weekends. Please call to schedule follow up appointment) [facility], [NON-STAFF] - Activity/Diet/Wound Care/Special Instructions: Ambulance form placed into chart, pt will need [facility] called at d/c [phone]. Discharge Disposition: HOME SELF-CARE
== END 2021-08-22 18:05 | disposition home or self-care (01) | DRG 872 ==
LOC: EC 21:35 → 3SCARD 08-20 00:38
PROVIDERS: ADMIT Hospitalist; ATTEND Hospitalist
DX: A41.52 Sepsis due to Pseudomonas (principal); I48.92 Unspecified atrial flutter; J44.1 Chronic obstructive pulmonary disease with (acute) exacerbation; J98.11 Atelectasis; N30.00 Acute cystitis without hematuria; R33.9 Retention of urine, unspecified; E78.5 Hyperlipidemia, unspecified; Z79.01 Long term (current) use of anticoagulants; E03.9 Hypothyroidism, unspecified; F43.10 Post-traumatic stress disorder, unspecified; G89.29 Other chronic pain; I10 Essential (primary) hypertension; I25.10 Atherosclerotic heart disease of native coronary artery without angina pectoris; L89.152 Pressure ulcer of sacral region, stage 2; Z20.822 Contact with and (suspected) exposure to COVID-19; I48.0 Paroxysmal atrial fibrillation; I45.10 Unspecified right bundle-branch block; I25.2 Old myocardial infarction; K59.00 Constipation, unspecified; M19.91 Primary osteoarthritis, unspecified site; M1A.9XX0 Chronic gout, unspecified, without tophus (tophi); M81.0 Age-related osteoporosis without current pathological fracture; N40.1 Benign prostatic hyperplasia with lower urinary tract symptoms; Z79.82 Long term (current) use of aspirin; Z79.84 Long term (current) use of oral hypoglycemic drugs; Z79.890 Hormone replacement therapy; Z79.899 Other long term (current) drug therapy; Z82.49 Family history of ischemic heart disease and other diseases of the circulatory system; Z86.73 Personal history of transient ischemic attack (TIA), and cerebral infarction without residual deficits; Z87.891 Personal history of nicotine dependence; Z90.79 Acquired absence of other genital organ(s); Z93.3 Colostomy status; Z95.1 Presence of aortocoronary bypass graft; Z95.5 Presence of coronary angioplasty implant and graft; Z98.42 Cataract extraction status, left eye; Z98.41 Cataract extraction status, right eye; Z87.01 Personal history of pneumonia (recurrent); Z87.19 Personal history of other diseases of the digestive system; Z86.14 Personal history of Methicillin resistant Staphylococcus aureus infection
CPT/HCPCS: 36415; 71045; 80053; 81001; 82565; 83605; 83735; 84100; 84484; 85025; 85610; 85730; 87040; 87077; 87086; 87186; 87635; 93005; 96361; 96365; 96366; 96367; 96375; 99285

== ENCOUNTER 2022-02-22 09:23 | Inpatient (IN) | payer MEDICARE, OTHER ==
[2022-02-22] MEDS ORDERED: SODIUM CHLORIDE 0.9% 500 ML 500 ML IV STA (10:00)
--- NOTE | 2022-02-22 10:00 | ED ---
General Adult HPI - General Chief complaint: Wound/Laceration Stated complaint: wound Time Seen by Provider: 02/22/22 09:48 Source: patient Mode of arrival: EMS Limitations: no limitations - Related Data Home Medications Medication Instructions Recorded Confirmed Nitroglycerin Sl Tabs [Nitrostat] 0.4 mg SL Q5M PRN 02/10/16 08/19/21 Aspirin 81 mg PO DAILY@0800 04/09/16 08/19/21 Levothyroxine Sodium [Synthroid] 100 mcg PO DAILY@0800 02/21/19 08/19/21 Tamsulosin HCl [Flomax] 0.4 mg PO HS@199902/21/19 08/19/21 HYDROcodone/APAP 10-325MG [[place] 1 tab PO TID PRN 04/25/19 08/19/21 10-325] Atorvastatin [Lipitor] 20 mg PO HS@199904/16/20 08/19/21 Baclofen 5 mg PO BID@0800,199904/16/20 08/19/21 amLODIPine [Norvasc] 2.5 mg PO HS@199904/16/20 08/19/21 ALPRAZolam [Xanax] 0.25 mg PO TID PRN 10/23/20 08/19/21 Lactulose [Constulose] 10 gm PO BID PRN 10/23/20 08/19/21 Rivaroxaban [Xarelto] 10 mg PO DAILY@1700 10/23/20 08/19/21 Ferrous Sulfate [Iron (65 MG 325 mg PO DAILY@0800 01/28/21 08/19/21 Elemental)] Multivitamins, Thera [Multivitamin 1 tab PO DAILY@0800 01/28/21 08/19/21 (formulary)] Cranberry Fruit Extract [Cranberry] 500 mg PO HS@199906/11/21 08/19/21 Docusate [Colace] 100 mg PO TID@0800,170,199906/11/21 08/19/21 Pregabalin [Lyrica] 100 mg PO BID@0800,199906/11/21 08/19/21 Glimepiride [Amaryl] 2 mg PO AC-BRKFST 08/19/21 08/19/21 Insulin Glargine,Hum.rec.anlog 10 unit SQ HS@199908/19/21 08/19/21 [Lantus Solostar Pen] Metoprolol Tartrate [Lopressor] 37.5 mg PO BID@0800,199908/19/21 08/19/21 SILVER sulfADIAZINE Cream 1 applic TOPICAL BID 08/19/21 08/19/21 [Silvadene 1% Cream] Previous Rx's Medication Instructions Recorded Pantoprazole [Protonix] 40 mg PO AC-BRKFST 30 Days #30 tab 06/17/21 levoFLOXacin [Levaquin] 750 mg PO DAILY #10 tab 08/22/21 Allergies Allergy/AdvReac Type Severity Reaction Status Date / Time No Known Allergies Allergy Verified 02/22/22 09:32 Review of Systems ROS Statement: Those systems with pertinent positive or pertinent negative responses have been documented in the HPI. ROS Other: All systems not noted in ROS Statement are negative. Past Medical History Past Medical History: Atrial Fibrillation, Atrial Flutter, Coronary Artery Disease (CAD), Chest Pain / Angina, CVA/TIA, Hyperlipidemia, Hypertension, Myocardial Infarction ([place]), Osteoarthritis (OA), Prostate Disorder, Skin Disorder, Thyroid Disorder Additional Past Medical History / Comment(s): Diverticulitis, HX PERFORATION. Gout. Eczema. BPH. Chronic Back Pain D/T PINCHED NERVE, has been bedridden since September. HX VERTIGO. FOOD GETTING STUCK IN THROAT - REMOVAL X3. Last Myocardial Infarction Date:: 08/2015 History of Any Multi-Drug Resistant Organisms: MRSA, Other MDRO, VRE Date of last positivie culture/infection: 09/04/21 MRSA 02/24/19 VRE MDRO Source:: Urine-MRSA; Abdomen-VRE Past Surgical History: Bowel Resection, Cardiac Ablation, Coronary Bypass/CABG, Heart Catheterization With Stent, Tonsillectomy Additional Past Surgical History / Comment(s): 02/11/16 Cardiac stent to SVG to diagonal; TOTAL 3 NOW. CABG X3 0n 07/11/15. CYST REMOVED FROM HEART 1958; LEFT TESTICLE REMOVED; МАРИНА CATARACTS. EGD W/ REMOVAL FB X3. Ostomy which failed, and redone. Colostomy since September 2018. Issues with sepsis since. 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 Past Anesthesia/Blood Transfusion Reactions: No Reported Reaction Additional Past Anesthesia/Blood Transfusion Reaction / Comment(s): no family hx Date of Last Stent Placement:: 02/11/16 Past Psychological History: PTSD Smoking Status: Never smoker Past Alcohol Use History: None Reported Past Drug Use History: None Reported - Past Family History Mother Family Medical History: Unable to Obtain Additional Family Medical History / Comment(s): Mother had a pacemaker. Father History Unknown: Yes Family Medical History: Myocardial Infarction ([place]) General Exam Limitations: no limitations Course Vital Signs 02/22/22 09:24 Temperature 98.1 F Pulse Rate 62 Respiratory 16 Rate Blood Pressure 116/63 O2 Sat by Pulse 97 Oximetry Disposition Referrals: Dilshad Lopez DO [Primary Care Provider] - 1-2 days
--- NOTE | 2022-02-22 10:10 | ED ---
Wound/Laceration HPI - General Chief Complaint: Wound/Laceration Stated Complaint: wound Time Seen by Provider: 02/22/22 09:48 Source: patient, RN notes reviewed Mode of arrival: EMS Limitations: no limitations - History of Present Illness Initial Comments: Patient is a 86 year old male presenting to the ER with a chief complaint of abdominal wound. Patient states he first noticed his old ostomy wound was leaking last night. This morning his home nurse came over and sent him to the ER for evaluation. The wound was leaking coffee ground color drainage. Patients states his old ostomy was closed about 5/6 years ago and denies any complications with it. He is unsure of the surgeon who performed the operation. He denies changes in bowel habits except a episode of constipation recently which resolved on its own. Patient denies fevers, chills, nightsweats, headache, visual changes, chest pain, shortness of breath, or abdominal pain. - Related Data Home Medications Medication Instructions Recorded Confirmed Nitroglycerin Sl Tabs [Nitrostat] 0.4 mg SL Q5M PRN 02/10/16 02/22/22 Aspirin 81 mg PO DAILY@0800 04/09/16 02/22/22 Levothyroxine Sodium [Synthroid] 100 mcg PO DAILY@0800 02/21/19 02/22/22 Tamsulosin HCl [Flomax] 0.4 mg PO HS@199902/21/19 02/22/22 HYDROcodone/APAP 10-325MG [[place] 1 tab PO TID PRN 04/25/19 02/22/22 10-325] Atorvastatin [Lipitor] 20 mg PO HS@199904/16/20 02/22/22 Baclofen 5 mg PO BID@0800,199904/16/20 02/22/22 amLODIPine [Norvasc] 2.5 mg PO HS@199904/16/20 02/22/22 ALPRAZolam [Xanax] 0.25 mg PO TID PRN 10/23/20 02/22/22 Rivaroxaban [Xarelto] 10 mg PO DAILY@1700 10/23/20 02/22/22 Multivitamins, Thera [Multivitamin 1 tab PO DAILY@0800 01/28/21 02/22/22 (formulary)] Cranberry Fruit Extract [Cranberry] 500 mg PO HS@199906/11/21 02/22/22 Docusate [Colace] 100 mg PO BID@0800,199906/11/21 02/22/22 Pregabalin [Lyrica] 100 mg PO BID@0800,199906/11/21 02/22/22 Glimepiride [Amaryl] 2 mg PO AC-BRKFST 08/19/21 02/22/22 Insulin Glargine,Hum.rec.anlog 5 unit SQ HS@1999 PRN 08/19/21 02/22/22 [Lantus Solostar Pen] Metoprolol Tartrate [Lopressor] 12.5 mg PO BID@0800,199908/19/21 02/22/22 SILVER sulfADIAZINE Cream 1 applic TOPICAL BID PRN 08/19/21 02/22/22 [Silvadene 1% Cream] Doxycycline Hyclate 100 mg PO BID 02/22/22 02/22/22 Previous Rx's Medication Instructions Recorded Pantoprazole [Protonix] 40 mg PO AC-BRKFST 30 Days #30 tab 06/17/21 Allergies Allergy/AdvReac Type Severity Reaction Status Date / Time No Known Allergies Allergy Verified 02/22/22 11:26 Review of Systems ROS Statement: Those systems with pertinent positive or pertinent negative responses have been documented in the HPI. ROS Other: All systems not noted in ROS Statement are negative. Past Medical History Past Medical History: Atrial Fibrillation, Atrial Flutter, Coronary Artery Disease (CAD), Chest Pain / Angina, CVA/TIA, Hyperlipidemia, Hypertension, Myocardial Infarction ([place]), Osteoarthritis (OA), Prostate Disorder, Skin Disorder, Thyroid Disorder Additional Past Medical History / Comment(s): Diverticulitis, HX PERFORATION. Gout. Eczema. BPH. Chronic Back Pain D/T PINCHED NERVE, has been bedridden since September. HX VERTIGO. FOOD GETTING STUCK IN THROAT - REMOVAL X3. Last Myocardial Infarction Date:: 08/2015 History of Any Multi-Drug Resistant Organisms: MRSA, Other MDRO, VRE Date of last positivie culture/infection: 09/04/21 MRSA 02/24/19 VRE MDRO Source:: Urine-MRSA; Abdomen-VRE Past Surgical History: Bowel Resection, Cardiac Ablation, Coronary Bypass/CABG, Heart Catheterization With Stent, Tonsillectomy Additional Past Surgical History / Comment(s): 02/11/16 Cardiac stent to SVG to diagonal; TOTAL 3 NOW. CABG X3 0n 07/11/15. CYST REMOVED FROM HEART 195; LEFT TESTICLE REMOVED; МАРИНА CATARACTS. EGD W/ REMOVAL FB X3. Ostomy which failed, and redone. Colostomy since September 2018. Issues with sepsis since. 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 Past Anesthesia/Blood Transfusion Reactions: No Reported Reaction Additional Past Anesthesia/Blood Transfusion Reaction / Comment(s): no family hx Date of Last Stent Placement:: 02/11/16 Past Psychological History: PTSD Smoking Status: Never smoker Past Alcohol Use History: None Reported Past Drug Use History: None Reported - Past Family History Mother Family Medical History: Unable to Obtain Additional Family Medical History / Comment(s): Mother had a pacemaker. Father History Unknown: Yes Family Medical History: Myocardial Infarction ([place]) General Exam Limitations: no limitations General appearance: alert, in no apparent distress Head exam: Present: atraumatic, normocephalic, normal inspection Eye exam: Present: normal appearance, PERRL, EOMI. Absent: scleral icterus, conjunctival injection, periorbital swelling ENT exam: Present: normal exam, mucous membranes moist Neck exam: Present: normal inspection. Absent: tenderness, meningismus, lymphadenopathy Respiratory exam: Present: normal lung sounds bilaterally. Absent: respiratory distress, wheezes, rales, rhonchi, stridor Cardiovascular Exam: Present: regular rate, normal rhythm, normal heart sounds. Absent: systolic murmur, diastolic murmur, rubs, gallop, clicks GI/Abdominal exam: Present: soft, normal bowel sounds, other (left sided abdominal wound- leaking light brown discharge ) Extremities exam: Present: normal inspection, full ROM, normal capillary refill. Absent: tenderness, pedal edema, joint swelling, calf tenderness Neurological exam: Present: alert, oriented X3, CN II-XII intact Psychiatric exam: Present: normal affect, normal mood Skin exam: Present: other (erythema and ulcers noted on abdomen ) Course Vital Signs 02/22/22 09:24 Temperature 98.1 F Pulse Rate 62 Respiratory 16 Rate Blood Pressure 116/63 O2 Sat by Pulse 97 Oximetry Medical Decision Making - Medical Decision Making 86-year-old male presented from for abdominal wall drainage, decubitus ulcer abdominal pain. Patient son had acute pancreatitis and CT, patient has chronic decubital ulcer with worsening osteomyelitis patient noted have drainage from his abdomen in which case discussed with Dr. 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 This is a stable recurrent issue. Patient's case discussed with Dr cook will be admitted for further evaluation - Lab Data Result diagrams: 02/22/22 10:29 02/22/22 11:15 Lab Results 02/22/22 02/22/22 02/22/22 Range/Units 10:29 10:29 10:29 WBC 8.0 (3.8-10.6) k/uL RBC 4.24 L (4.30-5.90) m/uL Hgb 10.7 L (13.0-17.5) gm/dL Hct 34.3 L (39.0-53.0) % MCV 81.0 (80.0-100.0) fL MCH 25.1 (25.0-35.0) pg MCHC 31.0 (31.0-37.0) g/dL RDW 19.8 H (11.5-15.5) % Plt Count 257 (150-450) k/uL MPV 8.7 Neutrophils % 76 % Lymphocytes % 10 % Monocytes % 9 % Eosinophils % 1 % Basophils % 0 % Neutrophils # 6.1 (1.3-7.7) k/uL Lymphocytes # 0.8 L (1.0-4.8) k/uL Monocytes # 0.7 (0-1.0) k/uL Eosinophils # 0.1 (0-0.7) k/uL Basophils # 0.0 (0-0.2) k/uL Hypochromasia Moderate Anisocytosis Slight Microcytosis Slight PT 13.8 H (9.0-12.0) sec INR 1.3 H (<1.2) APTT 32.1 H (22.0-30.0) sec Sodium (137-145) mmol/L Potassium (3.5-5.1) mmol/L Chloride (98-107) mmol/L Carbon Dioxide (22-30) mmol/L Anion Gap mmol/L BUN (9-20) mg/dL Creatinine (0.66-1.25) mg/dL Est GFR (CKD-EPI)AfAm (>60 ml/min/1.73 sqM) Est GFR (CKD-EPI)NonAf (>60 ml/min/1.73 sqM) Glucose (74-99) mg/dL Plasma Lactic Acid Alexey 1.8 (0.7-2.0) mmol/L Calcium (8.4-10.2) mg/dL Total Bilirubin (0.2-1.3) mg/dL AST (17-59) U/L ALT (4-49) U/L Alkaline Phosphatase (38-126) U/L Total Protein (6.3-8.2) g/dL Albumin (3.5-5.0) g/dL Amylase (30-110) U/L Lipase (23-300) U/L 02/22/ Range/Units 11:15 WBC (3.8-10.6) k/uL RBC (4.30-5.90) m/uL Hgb (13.0-17.5) gm/dL Hct (39.0-53.0) % MCV (80.0-100.0) fL MCH (25.0-35.0) pg MCHC (31.0-37.0) g/dL RDW (11.5-15.5) % Plt Count (150-450) k/uL MPV Neutrophils % % Lymphocytes % % Monocytes % % Eosinophils % % Basophils % % Neutrophils # (1.3-7.7) k/uL Lymphocytes # (1.0-4.8) k/uL Monocytes # (0-1.0) k/uL Eosinophils # (0-0.7) k/uL Basophils # (0-0.2) k/uL Hypochromasia Anisocytosis Microcytosis PT (9.0-12.0) sec INR (<1.2) APTT (22.0-30.0) sec Sodium 136 L (137-145) mmol/L Potassium 3.8 (3.5-5.1) mmol/L Chloride 109 H (98-107) mmol/L Carbon Dioxide 25 (22-30) mmol/L Anion Gap 2 mmol/L BUN 12 (9-20) mg/dL Creatinine 0.86 (0.66-1.25) mg/dL Est GFR (CKD-EPI)AfAm >90 (>60 ml/min/1.73 sqM) Est GFR (CKD-EPI)NonAf 79 (>60 ml/min/1.73 sqM) Glucose 134 H (74-99) mg/dL Plasma Lactic Acid Alexey (0.7-2.0) mmol/L Calcium 7.6 L (8.4-10.2) mg/dL Total Bilirubin 0.5 (0.2-1.3) mg/dL AST 30 (17-59) U/L ALT 20 (4-49) U/L Alkaline Phosphatase 186 H (38-126) U/L Total Protein 5.3 L (6.3-8.2) g/dL Albumin 2.1 L (3.5-5.0) g/dL Amylase 60 (30-110) U/L Lipase 952 H (23-300) U/L Disposition Clinical Impression: Stage IV decubitus ulcer, Sacral osteomyelitis, Pancreatitis, Abdominal fistula Disposition: ADMITTED IP TO THIS [facility] Condition: Fair Referrals: Dilshad Lopez DO [Primary Care Provider] - 1-2 days Time of Disposition: 13:54
[2022-02-22 11:11] LABS: INR 1.3 (<1.2); Partial Thromboplastin Time 32.1 sec (22.0-30.0); Prothrombin Time 13.8 sec (9.0-12.0)
[2022-02-22 11:19] LABS: Anisocytosis Slight; Basophils % (A) 0 %; Eosinophils # (A) 0.1 k/uL (0-0.7); Eosinophils % (A) 1 %; HCT 34.3 % (39.0-53.0); HGB 10.7 gm/dL (13.0-17.5); Hypochromasia Moderate; Lymphocytes # (A) 0.8 k/uL (1.0-4.8); Lymphocytes % (A) 10 %; MCH 25.1 pg (25.0-35.0); Mean Platelet Volume 8.7; Microcytosis Slight; Monocytes # (A) 0.7 k/uL (0-1.0); Monocytes % (A) 9 %; Neutrophils # (A) 6.1 k/uL (1.3-7.7); Neutrophils % (A) 76 %; Platelet Count 257 k/uL (150-450); RBC 4.24 m/uL (4.30-5.90); RDW 19.8 % (11.5-15.5)
[2022-02-22 11:54] LABS: ALT 20 U/L (4-49); AST 30 U/L (17-59); African American GFR (CKD) >90 (>60 ml/min/1.73 sqM); Albumin 2.1 g/dL (3.5-5.0); Alkaline Phosphatase 186 U/L (38-126); Amylase 60 U/L (30-110); Anion Gap 2 mmol/L; Blood Urea Nitrogen 12 mg/dL (9-20); Calcium 7.6 mg/dL (8.4-10.2); Carbon Dioxide 25 mmol/L (22-30); Chloride 109 mmol/L (98-107); Glucose 134 mg/dL (74-99); Lipase 952 U/L (23-300); Non-African American GFR(CKD) 79 (>60 ml/min/1.73 sqM); Potassium 3.8 mmol/L (3.5-5.1); Sodium 136 mmol/L (137-145); Total Bilirubin 0.5 mg/dL (0.2-1.3); Total Protein 5.3 g/dL (6.3-8.2)
--- NOTE | 2022-02-22 12:50 | CT ---
EXAMINATION TYPE: CT abdomen pelvis w con DATE OF EXAM: 02/22/2022 COMPARISON: 06/11/2021 HISTORY: 86-year-old male abdominal wound, pain TECHNIQUE: Contiguous axial scanning of the abdomen and pelvis following administration of 100 ml Iso shira 300 IV contrast. Delayed images through the kidneys and coronal/sagittal reconstructions perform ed. CT DLP: 1720.4 mGycm Automated exposure control for dose reduction was used. FINDINGS: Heart mildly enlarged. Scattered coronary calcifications are present. No pericardial effusi on. Dependent lung opacities likely atelectasis. Elevated right hemidiaphragm. The patient's anterior abdominal wall is markedly lax with rectus diastases and contents hanging towa rds the right. There may be mild underlying fatty infiltration of the liver. Portal venous system is patent. No bili radha ductal dilatation. An unchanged punctate calcification right lateral pancreatic head region is un changed. No abnormal gallbladder distention. Adrenal glands, spleen with a small anterior splenule within normal limits. 2.4 cm anterior right midpole renal cyst. 6 mm tiny hypodensity left kidney likely small cysts. No hy dronephrosis. 6 mm calcification at the right ureteral orifice. Again, no hydronephrosis. There is li mited excretion of contrast from either kidney on delayed series. Correlate with patient's kidney fun ction. Mild fat stranding and hazy density along the pancreatic head and body. Correlate for acute pancreati tis. No abnormal fluid collection seen. No dilated small bowel, free fluid, or free air. No mesenteric or retroperitoneal lymphadenopathy. Moderate atherosclerotic calcifications abdominal aorta and iliac arteries. Sigmoid diverticulosis. No pericolonic inflammatory change. Bladder partially distended. Prostate gland measures 5.3 cm wide. Numerous pelvic phleboliths. No abn ormal fluid collection in pelvis. Compared to 06/11/2021 a sacral decubitus ulcer appears to have developed, axial image 82. Inflammatory soft tissue thickening extends down to the coccyx where a short segment bony upper coccyx shows furt her reduction. No abnormal fluid collection seen. Mild degenerative change of both hips. Osteopenia. Hypertrophic facet arthropathy mid to lower lumbar spine. Advanced degenerative disc disease L4-L5. IMPRESSION: 1. SACRAL DECUBITUS ULCER, NEW/ENLARGED COMPARED TO 06/11/2021. FURTHER EROSION OF A SEGMENT OF UPPER C OCCYGEAL BONE SUGGESTING ACUTE ON CHRONIC OSTEOMYELITIS. 2. NEW PERIPANCREATIC FAT STRANDING. CORRELATE FOR ACUTE INTERSTITIAL PANCREATITIS. NO ABNORMAL FLUID COLLECTION SEEN. 3. MARKED RECTUS DIASTASES AND ANTERIOR ABDOMINAL WALL LAXITY HANGING TOWARDS THE RIGHT. 4. A CHRONIC 6 MM CALCULUS AT THE RIGHT URETERAL ORIFICE BUT WITHOUT ANY OBSTRUCTIVE UROPATHY APPAREN T.
[2022-02-22] MEDS ORDERED: ACETAMINOPHEN TAB 325 MG TAB PO PRN (13:54)
[2022-02-22] MEDS ORDERED: HYDROcodone/APAP 5-325MG 1 EACH TAB PO PRN (13:54)
[2022-02-22] MEDS ORDERED: NALOXONE 0.4 MG/ML 1 ML VIAL IV PRN (13:54)
[2022-02-22] MEDS ORDERED: ALPRAZolam 0.25 MG TAB PO PRN (13:56)
[2022-02-22] MEDS ORDERED: INSULIN DETEMIR (LEVEMIR) 100 UNIT/ML SYR SQ PRN (13:56)
[2022-02-22] MEDS ORDERED: VANCOMYCIN IV PER PHARMACY 1 EACH MISC MISCELLANE PRN (13:58)
[2022-02-22] MEDS ORDERED: VANCOMYCIN 1,500 MG in SODIUM CHLORIDE 0.9% 500 ML 500 ML IVPB STA (14:01)
[2022-02-22 14:15] LABS: Appearance,Urine Clear (Clear); Bilirubin,Urine Negative (Negative); Blood,Urine Negative (Negative); Color,Urine Yellow; Glucose,Urine (UA) Negative (Negative); Ketones,Urine Negative (Negative); Leukocyte Esterase,Urine Negative (Negative); Nitrite,Urine Negative (Negative); Protein,Urine Negative (Negative); Specific Gravity,Urine 1.035 (1.001-1.035); Urobilinogen,Urine <2.0 mg/dL (<2.0)
[2022-02-22] MEDS: SODIUM CHLORIDE 0.9% 1,000 ML IV SCH (14:15)
[2022-02-22] MEDS: HYDROcodone/APAP 10-325MG 1 EACH TAB PO PRN ×2 (15:14→21:58)
[2022-02-22] MEDS: RIVAROXABAN 10 MG TAB PO SCH (17:18)
[2022-02-22] MEDS ORDERED: LACTULOSE 20 GM/30 ML CUP PO PRN (17:27)
[2022-02-22] MEDS ORDERED: ONDANSETRON 4 MG/2 ML VIAL IVP PRN (17:27)
[2022-02-22] MEDS ORDERED: TEMAZEPAM 15 MG CAP PO PRN (17:27)
[2022-02-22] MEDS ORDERED: CALCIUM CARBONATE 500 MG CHEWABLE PO PRN (17:27)
--- NOTE | 2022-02-22 17:28 | P.HPIM ---
History of Present Illness H&P Date: 02/22/22 Chief Complaint: Stool coming on before previous ostomy site This is a very pleasant 86-year-old patient of Dr. Lopez. October 2018. - acute perforated diverticulitis- sigmoid colectomy,-with the right abdominal wall colostomy. being followed by Dr. Woodward from general surgery and Dr. Park from infectious disease. did have a colostomy in the past and had revision emma t was done at [facility].chronic stable medical conditions include gout, BPH, chronic low back pain, sacral decubitus wound Patient also had anterior abdominal wound which been healing . Had a PEG tube in the past that was removed in April 2020 Patient now presents to the ER as the previous colostomy site on the left side of the abdomen is putting out feculent matter. Denies any abdominal pain. No nausea vomiting. Oral intake is fair. Patient's chronic back words. Gait for by his son. No fever no chills. No pain. Patient is not ambulatory. Review of systems: GEN.: Tired EYES: None HEENT: None NECK: None RESPIRATORY: None CARDIOVASCULAR: None GASTROINTESTINAL: As above GENITOURINARY: None MUSCULOSKELETAL: Joint pains LYMPHATICS: None HEMATOLOGICAL: None PSYCHIATRY: None NEUROLOGICAL: non ambulatory Past medical history: Coronary artery disease with stent and bypass, atrial flutter, hypertension, hyperlipidemia, osteoporosis status, BPH, hypothyroid, sigmoid diverticulitis with perforation, intra-abdominal abscess, gout, PTSD, colostomy, pneumonia, Social history: Patient is an [employer] . Did smoke a pipe and cigar stopped 1971. At home with . Physical examination: VITAL SIGNS: 98.1, 62, 16, 1 with 6 x 63, 97% room air GENERAL:, laying in bed, awake, comfortable EYES: Pupils equal. Conjunctiva normal. HEENT: External appearance of nose and ears normal, oral cavity grossly normal. NECK: JVD not raised; masses not palpable. HEART: First and second heart sounds are normal; no edema. LUNGS:[ Respiratory rate normal; decreased breath sounds. ABDOMEN: Soft, no tenderness, no guarding no rigidity, liver spleen not palpable, no masses palpable, bowel sounds present. Colostomy bag on the right side. abdominal wall stoma on the left side,-putting out feculent matter. redness with some scar on the right side of abdomen. PSYCH: AO - times three. Mood and affect normal NEUROLOGICAL: decreased power both lower extremities, DERMATOLOGICAL: Sacral wound : More details and nursing notes Investigations reviewed in the clinical context WBC 18 globin 10.7 platelets 257 sodium 136 potassium 3.8 creatinine 0.86 UA: Negative CT abdomen pelvis: Sacral decub was ulcer. And large compared to June 2021. Further erosion of segment of upper coccygeal bone. Peripancreatic fat stranding. No abnormal fluid collection. Chronic 6. C alculus of the right ureteral orifice. Assessment and plan: -Feculent matter noted on the left abdominal stoma that was a previous colostomy site. Concern about fistula. Consult Dr. Woodward from general surgery. -Chronic sacral wound decubitus . With some progression since previous computed tomography scan. Local wound care and consult ID -Right bundle-branch block -Paroxysmal atrial flutter, currently sinus rhythm Telemetry. 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 Consult ID, general surgery. Wound care. Care was discussed the patient. Questions answered. Past Medical History Past Medical History: Atrial Fibrillation, Atrial Flutter, Coronary Artery Disease (CAD), Chest Pain / Angina, CVA/TIA, Hyperlipidemia, Hypertension, Myocardial Infarction (CA), Osteoarthritis (OA), Prostate Disorder, Skin Disorder, Thyroid Disorder Additional Past Medical History / Comment(s): Diverticulitis, HX PERFORATION. Gout. Eczema. BPH. Chronic Back Pain D/T PINCHED NERVE, has been bedridden since September. HX VERTIGO. FOOD GETTING STUCK IN THROAT - REMOVAL X3. Last Myocardial Infarction Date:: 08/2015 History of Any Multi-Drug Resistant Organisms: MRSA, Other MDRO, VRE Date of last positivie culture/infection: 09/04/21 MRSA 02/24/19 VRE MDRO Source:: Urine-MRSA; Abdomen-VRE Past Surgical History: Bowel Resection, Cardiac Ablation, Coronary Bypass/CABG, Heart Catheterization With Stent, Tonsillectomy Additional Past Surgical History / Comment(s): 02/11/16 Cardiac stent to SVG to diagonal; TOTAL 3 NOW. CABG X3 0n 07/11/15. CYST REMOVED FROM HEART 195; LEFT TESTICLE REMOVED; МАРИНА CATARACTS. EGD W/ REMOVAL FB X3. Ostomy which failed, and redone. Colostomy since September 2018. Issues with sepsis since. At [facility] family was told Rene had a VAP which was drug resistant, unsure of type, November 2018. Past Anesthesia/Blood Transfusion Reactions: No Reported Reaction Additional Past Anesthesia/Blood Transfusion Reaction / Comment(s): no family hx Date of Last Stent Placement:: 02/11/16 Past Psychological History: PTSD Smoking Status: Never smoker Past Alcohol Use History: None Reported Past Drug Use History: None Reported - Past Family History Mother Family Medical History: Unable to Obtain Additional Family Medical History / Comment(s): Mother had a pacemaker. Father History Unknown: Yes Family Medical History: Myocardial Infarction (CA) Medications and Allergies Home Medications Medication Instructions Recorded Confirmed Type Nitroglycerin Sl Tabs [Nitrostat] 0.4 mg SL Q5M PRN 02/10/16 02/22/22 History Aspirin 81 mg PO DAILY@0800 04/09/16 02/22/22 History Levothyroxine Sodium [Synthroid] 100 mcg PO DAILY@0800 02/21/19 02/22/22 History Tamsulosin HCl [Flomax] 0.4 mg PO HS@199902/21/19 02/22/22 History HYDROcodone/APAP 10-325MG [[place] 1 tab PO TID PRN 04/25/19 02/22/22 History 10-325] Atorvastatin [Lipitor] 20 mg PO HS@199904/16/20 02/22/22 History Baclofen 5 mg PO BID@0800,199904/16/20 02/22/22 History amLODIPine [Norvasc] 2.5 mg PO HS@199904/16/20 02/22/22 History ALPRAZolam [Xanax] 0.25 mg PO TID PRN 10/23/20 02/22/22 History Rivaroxaban [Xarelto] 10 mg PO DAILY@1700 10/23/20 02/22/22 History Multivitamins, Thera [Multivitamin 1 tab PO DAILY@0800 01/28/21 02/22/22 History (formulary)] Cranberry Fruit Extract [Cranberry] 500 mg PO HS@199906/11/21 02/22/22 History Docusate [Colace] 100 mg PO BID@0800,199906/11/21 02/22/22 History Pregabalin [Lyrica] 100 mg PO BID@0800,199906/11/21 02/22/22 History Pantoprazole [Protonix] 40 mg PO AC-BRKFST 30 Days #30 tab 06/17/21 02/22/22 Rx Glimepiride [Amaryl] 2 mg PO AC-BRKFST 08/19/21 02/22/22 History Insulin Glargine,Hum.rec.anlog 5 unit SQ HS@1999 PRN 08/19/21 02/22/22 History [Lantus Solostar Pen] Metoprolol Tartrate [Lopressor] 12.5 mg PO BID@0800,199908/19/21 02/22/22 History SILVER sulfADIAZINE Cream 1 applic TOPICAL BID PRN 08/19/21 02/22/22 History [Silvadene 1% Cream] Doxycycline Hyclate 100 mg PO BID 02/22/22 02/22/22 History Allergies Allergy/AdvReac Type Severity Reaction Status Date / Time No Known Allergies Allergy Verified 02/22/22 11:26 Physical Exam Vitals: Vital Signs Temp Pulse Resp BP Pulse Ox 02/22/22 15:18 98.2 F 66 18 138/74 96 02/22/22 14:14 60 15 130/65 100 02/22/22 09:24 98.1 F 62 16 116/63 97 Intake and Output 02/22/22 02/22/22 02/22/22 06:59 14:59 22:59 Other: Weight 95.254 kg Results CBC & Chem 7: 02/22/22 10:29 02/22/22 11:15 Labs: Abnormal Lab Results - Last 24 Hours (Table) 02/22/22 02/22/22 02/22/22 Range/Units 10:29 10:29 11:15 RBC 4.24 L (4.30-5.90) m/uL Hgb 10.7 L (13.0-17.5) gm/dL Hct 34.3 L (39.0-53.0) % RDW 19.8 H (11.5-15.5) % Lymphocytes # 0.8 L (1.0-4.8) k/uL PT 13.8 H (9.0-12.0) sec INR 1.3 H (<1.2) APTT 32.1 H (22.0-30.0) sec Sodium 136 L (137-145) mmol/L Chloride 109 H (98-107) mmol/L Glucose 134 H (74-99) mg/dL Calcium 7.6 L (8.4-10.2) mg/dL Alkaline Phosphatase 186 H (38-126) U/L Total Protein 5.3 L (6.3-8.2) g/dL Albumin 2.1 L (3.5-5.0) g/dL Lipase 952 H (23-300) U/L
[2022-02-22] MEDS ORDERED: NON FORMULARY DRUG (Cranberry Fruit Extract [Cranberry] 500 MG Tablet) PO SCH (20:00)
[2022-02-22 21:05] LABS: Glucose,Whole Blood 78 mg/dL (70-110)
[2022-02-22] MEDS: DOCUSATE 100 MG CAP PO SCH (21:56)
[2022-02-22] MEDS: BACLOFEN 10 MG TAB PO SCH (21:57)
[2022-02-22] MEDS: METOPROLOL TARTRATE 12.5 MG TAB PO SCH (21:57)
[2022-02-22] MEDS: ATORVASTATIN 20 MG TAB PO SCH (21:57)
[2022-02-22] MEDS: TAMSULOSIN 0.4 MG CAP.ER.24H PO SCH (21:58)
[2022-02-22] MEDS: amLODIPine 2.5 MG TAB PO SCH (21:58)
[2022-02-22] MEDS: PREGABALIN 100 MG CAP PO SCH (21:58)
--- NOTE | 2022-02-22 23:52 | P.CONS ---
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 and also history of sacral pressure ulcer patient now presenting to the ER with concern for feculent material coming out through the left lower abdominal mucous fistula site currently symptom has been going on for few days before presenting to the hospital patient be complaining of abdominal pain more of a sharp in nature mention it moderate but not able to quantify it any further did have some nausea but no vomiting patient on presentation the hospital was afebrile and no fever have been recorded subsequently patient did have a normal white count kidney function has been normal urine was negative patient did have a CT of abdominal pelvis which did shows sacral pressure ulcer with erosion of the segment of the upper coccygeal bone suggestive of acute on chronic osteomyelitis there was no peripancreatic fat stranding marked rectus diastases patient has been started on vancomycin infectious disease was consulted for further management of antibiotic therapy Review of Systems Positive point has been mentioned in the HPI rest of the systems are negative Past Medical History Past Medical History: Atrial Fibrillation, Atrial Flutter, Coronary Artery Disease (CAD), Chest Pain / Angina, CVA/TIA, Hyperlipidemia, Hypertension, Myocardial Infarction (MD), Osteoarthritis (OA), Prostate Disorder, Skin Disorder, Thyroid Disorder Additional Past Medical History / Comment(s): Diverticulitis, HX PERFORATION. Gout. Eczema. BPH. Chronic Back Pain D/T PINCHED NERVE, has been bedridden since September. HX VERTIGO. FOOD GETTING STUCK IN THROAT - REMOVAL X3. 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 CABG X3 0n 07/11/15. CYST REMOVED FROM HEART 1958; LEFT TESTICLE REMOVED; МАРИНА CATARACTS. EGD W/ REMOVAL FB X3. Ostomy which failed, and redone. Colostomy since September 2018. Issues with sepsis since. 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 Past Anesthesia/Blood Transfusion Reactions: No Reported Reaction Additional Past Anesthesia/Blood Transfusion Reaction / Comm: no family hx Date of Last Stent Placement:: 02/11/16 Past Psychological History: PTSD Smoking Status: Never smoker Past Alcohol Use History: None Reported Past Drug Use History: None Reported - Past Family History Mother Family Medical History: Unable to Obtain Additional Family Medical History / Comment(s): Mother had a pacemaker. Father History Unknown: Yes Family Medical History: Myocardial Infarction (MD) Medications and Allergies Home Medications Medication Instructions Recorded Confirmed Type Nitroglycerin Sl Tabs [Nitrostat] 0.4 mg SL Q5M PRN 02/10/16 02/22/22 History Aspirin 81 mg PO DAILY@0800 04/09/16 02/22/22 History Levothyroxine Sodium [Synthroid] 100 mcg PO DAILY@0800 02/21/19 02/22/22 History Tamsulosin HCl [Flomax] 0.4 mg PO HS@199902/21/19 02/22/22 History HYDROcodone/APAP 10-325MG [P[place]ell 1 tab PO TID PRN 04/25/19 02/22/22 History 10-325] Atorvastatin [Lipitor] 20 mg PO HS@199904/16/20 02/22/22 History Baclofen 5 mg PO BID@0800,199904/16/20 02/22/22 History amLODIPine [Norvasc] 2.5 mg PO HS@199904/16/20 02/22/22 History ALPRAZolam [Xanax] 0.25 mg PO TID PRN 10/23/20 02/22/22 History Rivaroxaban [Xarelto] 10 mg PO DAILY@1700 10/23/20 02/22/22 History Multivitamins, Thera [Multivitamin 1 tab PO DAILY@0800 01/28/21 02/22/22 History (formulary)] Cranberry Fruit Extract [Cranberry] 500 mg PO HS@199906/11/21 02/22/22 History Docusate [Colace] 100 mg PO BID@08,199906/11/21 02/22/22 History Pregabalin [Lyrica] 100 mg PO BID@799,199906/11/21 02/22/22 History Pantoprazole [Protonix] 40 mg PO AC-BRKFST 30 Days #30 tab 06/17/21 02/22/22 Rx Glimepiride [Amaryl] 2 mg PO AC-BRKFST 08/19/21 02/22/22 History Insulin Glargine,Hum.rec.anlog 5 unit SQ HS@1999 PRN 08/19/21 02/22/22 History [Lantus Solostar Pen] Metoprolol Tartrate [Lopressor] 12.5 mg PO BID@799,199908/19/21 02/22/22 History SILVER sulfADIAZINE Cream 1 applic TOPICAL BID PRN 08/19/21 02/22/22 History [Silvadene 1% Cream] Doxycycline Hyclate 100 mg PO BID 02/22/22 02/22/22 History Allergies Allergy/AdvReac Type Severity Reaction Status Date / Time No Known Allergies Allergy Verified 02/22/22 11:26 Physical Exam Vitals: Vital Signs Temp Pulse Resp BP Pulse Ox 02/22/22 17:18 98.2 F 64 16 113/71 99 02/22/22 15:18 98.2 F 66 18 138/74 96 02/22/22 14:14 60 15 130/65 100 02/22/22 09:24 98.1 F 62 16 116/63 97 Intake and Output 02/22/22 02/22/22 02/22/22 06:59 14:59 22:59 Other: Weight 95.254 kg GENERAL DESCRIPTION: Elderly male lying in bed, no distress. No tachypnea or accessory muscle of respiration use. HEENT: Shows Pallor , no scleral icterus. Oral mucous membrane is dry. No pharyngeal erythema or thrush NECK: Trachea central, no thyromegaly. LUNGS: Unlabored breathing. Clear to auscultation anteriorly. No wheeze or crackle. HEART: S1, S2, regular rate and rhythm. No loud murmur ABDOMEN: Soft, left lower abdominal wall mucous fistula with feculent drainage EXTREMITIES: No edema of feet. SKIN: No rash, no masses palpable. Patient did have a stage IV sacral pressure ulcer with some surrounding redness and also in drainage NEUROLOGICAL: The patient is awake, alert, oriented x3, mood and affect normal. Results CBC & Chem 7: 02/23/22 11:24 02/25/22 11:34 Labs: Abnormal Lab Results - Last 24 Hours (Table) 02/22/22 02/22/22 02/22/22 Range/Units 10:29 10:29 11:15 RBC 4.24 L (4.30-5.90) m/uL Hgb 10.7 L (13.0-17.5) gm/dL Hct 34.3 L (39.0-53.0) % RDW 19.8 H (11.5-15.5) % Lymphocytes # 0.8 L (1.0-4.8) k/uL PT 13.8 H (9.0-12.0) sec INR 1.3 H (<1.2) APTT 32.1 H (22.0-30.0) sec Sodium 136 L (137-145) mmol/L Chloride 109 H (98-107) mmol/L Glucose 134 H (74-99) mg/dL Calcium 7.6 L (8.4-10.2) mg/dL Alkaline Phosphatase 186 H (38-126) U/L Total Protein 5.3 L (6.3-8.2) g/dL Albumin 2.1 L (3.5-5.0) g/dL Lipase 952 H (23-300) U/L Assessment and Plan (1) Stage IV pressure ulcer of sacral region Status: Acute Code(s): L89.154 - PRESSURE ULCER OF SACRAL REGION, STAGE 4 SNOMED Code(s): 94912236993921521 Plan: 1patient with 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 2patient with the stage IV sacral pressure ulcer now with evidence of bony erosion on the CT. 3await surgical evaluation for possible debridement of his sacral wound and deep culture that will guide further antibiotic therapy. 4we will check his inflammatory markers. 5continue with the vancomycin however it Unasyn while waiting for the work-up to be completed. We will follow on clinical condition and cultures to further adjust medication if needed Thank you for this consultation will follow this patient along with you Time with Patient: Greater than 30
[2022-02-23] MEDS: AMPICILLIN-SULBACTAM 3 GM in SODIUM CHLORIDE 0.9% 100 ML IVPB SCH ×4 (00:47→18:41)
[2022-02-23] MEDS: SODIUM CHLORIDE 0.9% 1,000 ML IV SCH ×2 (04:31→18:27)
[2022-02-23] MEDS ORDERED: VANCOMYCIN 1,500 MG in SODIUM CHLORIDE 0.9% 500 ML 500 ML IVPB SCH (06:00)
[2022-02-23] MEDS: PANTOPRAZOLE 40 MG TABLET PO SCH (07:02)
[2022-02-23] MEDS: GLIMEPIRIDE 2 MG TAB PO SCH (07:02)
[2022-02-23 07:40] LABS: Glucose,Whole Blood 53 mg/dL (70-110)
[2022-02-23 07:58] LABS: Glucose,Whole Blood 51 mg/dL (70-110)
[2022-02-23 08:15] LABS: Glucose,Whole Blood 73 mg/dL (70-110)
[2022-02-23] MEDS: METOPROLOL TARTRATE 12.5 MG TAB PO SCH ×3 (08:24→19:32)
[2022-02-23] MEDS: MULTIVITAMINS, THERA 1 EACH TAB PO SCH (08:27)
[2022-02-23] MEDS: BACLOFEN 10 MG TAB PO SCH ×2 (08:28→19:32)
[2022-02-23] MEDS: PREGABALIN 100 MG CAP PO SCH ×2 (08:28→19:32)
[2022-02-23] MEDS: LEVOTHYROXINE 100 MCG TAB PO SCH (08:28)
[2022-02-23] MEDS: ASPIRIN 81 MG PO SCH (08:29)
[2022-02-23] MEDS: DOCUSATE 100 MG CAP PO SCH ×2 (08:29→19:32)
[2022-02-23] MEDS: HYDROcodone/APAP 10-325MG 1 EACH TAB PO PRN ×2 (08:29→19:32)
[2022-02-23 11:38] LABS: Glucose,Whole Blood 114 mg/dL (70-110)
[2022-02-23 11:56] LABS: Anisocytosis Slight; Basophils % (A) 0 %; Eosinophils # (A) 0.1 k/uL (0-0.7); Eosinophils % (A) 2 %; HCT 34.6 % (39.0-53.0); HGB 10.8 gm/dL (13.0-17.5); Hypochromasia Marked; Lymphocytes # (A) 0.6 k/uL (1.0-4.8); Lymphocytes % (A) 8 %; MCHC 31.3 g/dL (31.0-37.0); MCV 83.2 fL (80.0-100.0); Mean Platelet Volume 8.4; Microcytosis Slight; Monocytes # (A) 0.5 k/uL (0-1.0); Monocytes % (A) 6 %; Neutrophils # (A) 6.9 k/uL (1.3-7.7); Neutrophils % (A) 82 %; Platelet Count 260 k/uL (150-450); RBC 4.16 m/uL (4.30-5.90); RDW 19.7 % (11.5-15.5); WBC 8.4 k/uL (3.8-10.6)
[2022-02-23 12:01] LABS: ALT 20 U/L (4-49); AST 30 U/L (17-59); African American GFR (CKD) >90 (>60 ml/min/1.73 sqM); Albumin 2.2 g/dL (3.5-5.0); Albumin/Globulin Ratio 0.6; Alkaline Phosphatase 202 U/L (38-126); Anion Gap 6 mmol/L; Blood Urea Nitrogen 9 mg/dL (9-20); C Reactive Protein 5.2 mg/dL (<1.0); Calcium 7.9 mg/dL (8.4-10.2); Carbon Dioxide 23 mmol/L (22-30); Chloride 107 mmol/L (98-107); Globulin 3.5 g/dL; Glucose 110 mg/dL (74-99); Non-African American GFR(CKD) 79 (>60 ml/min/1.73 sqM); Potassium 3.7 mmol/L (3.5-5.1); Sodium 136 mmol/L (137-145); Total Bilirubin 0.6 mg/dL (0.2-1.3); Total Protein 5.7 g/dL (6.3-8.2)
--- NOTE | 2022-02-23 12:11 | P.GSCN ---
History of Present Illness Consult date: 02/23/22 History of present illness: CHIEF COMPLAINT: Sacral decubitus ulcer Reason for consult mucous fistula HISTORY OF PRESENT ILLNESS: This is a 86-year-old male with a surgical history of exploratory laparotomy, sigmoid colectomy with end colostomy and drainage of abscess secondary to perforated diverticulitis with peritonitis. He is house was a [facility] requiring revision of his colostomy. Patient reported that his initial colostomy had not been working and required a colostomy to be moved from the left side of the abdomen to the right side of the abdomen. 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 This does drain stool occasionally. Surgical service consulted regards to the mucous fistula. Patient also has a chronic sacral ulcer. Patient is currently on antibiotics. CAT scan showed evidence of a possible acute on chronic osteomyelitis in the sacral area. Patient seen and examined with Dr. sr PAST MEDICAL HISTORY: Atrial Fibrillation, Atrial Flutter, Coronary Artery Disease (CAD), Chest Pain / Angina, CVA/TIA, Hyperlipidemia, Hypertension, Myocardial Infarction (VT), Osteoarthritis (OA), Prostate Disorder, Skin Disorder, Thyroid Disorder, diverticulitis with perforation PAST SURGICAL HISTORY: Bowel Resection, Cardiac Ablation, Coronary Bypass/CABG, Heart Catheterization With Stent, Tonsillectomy MEDICATIONS: See below ALLERGIES: See below SOCIAL HISTORY: No illicit drug use. REVIEW OF SYSTEMS: CONSTITUTIONAL: Denies fever or chills. HEENT: Denies blurred vision, vision changes, or eye pain. Denies hemoptysis CARDIOVASCULAR: Denies chest pain or pressure. RESPIRATORY: No shortness of breath. GASTROINTESTINAL: See HPI for pertinent findings HEMATOLOGIC: Denies bleeding disorders. GENITOURINARY: Denies any blood in urine or increased urinary frequency. SKIN: Denies pruitis. Denies rash. PHYSICAL EXAM: VITAL SIGNS: Reviewed GENERAL: Well-developed in no acute distress. HEENT: No sclera icterus. Extraocular movements grossly intact. Moist buccal mucosa. Head is atraumatic, normocephalic. No nasal drainage. ABDOMEN: Soft. Obese. Nondistended. Left-sided abdomen mucous fistula with dressing that is clean dry and intact. Right side colostomy bag with stool noted. Patient does have skin irritation and scabbing around the colostomy bag. NEUROLOGIC: Alert and oriented. Cranial nerves II through XII grossly intact. LABORATORY DATA: WBC is 8.4 Hgb 10.7 down to 6.6 up to 10.8. hgb 6.6 possibly lab error platelets 260 INR 1.3 Sodium is 136 potassium 3.7 BUN is 9 creatinine 0.87 Glucose 110 Total bilirubin 0.6 AST 30 ALT 20 Lipase 952 IMAGING: Computed tomography scan abdomen and pelvis sacral decubitus ulcer, new/enlarged compared to -2021. Further erosion of a segment of upper coccygeal bone suggesting acute on chronic osteomyelitis. New peripancreatic fat stranding. Correlate for acute interstitial pancreatitis. No abnormal fluid collection se en. Marked rectus diastasis and anterior abdominal wall laxity hanging towards the right. Chronic 6 mm calculus at the right ureteral orifice but without any obstruction or uropathy apparent. ASSESSMENT: 1. Left-sided abdomen with chronic mucous fistula 2. 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 Pancreatitis PLAN: -No surgical intervention planned -Continue supportive care -Continue antibiotics per infectious disease -Continue IV fluids Physician Toggler note has been reviewed by physician. Signing provider agrees with the documented findings, assessment, and plan of care. Past Medical History Past Medical History: Atrial Fibrillation, Atrial Flutter, Coronary Artery Disease (CAD), Chest Pain / Angina, CVA/TIA, Hyperlipidemia, Hypertension, Myocardial Infarction (VT), Osteoarthritis (OA), Prostate Disorder, Skin Disorder, Thyroid Disorder Additional Past Medical History / Comment(s): Diverticulitis, HX PERFORATION. Gout. Eczema. BPH. Chronic Back Pain D/T PINCHED NERVE, has been bedridden since September. HX VERTIGO. FOOD GETTING STUCK IN THROAT - REMOVAL X3. 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 CABG X3 0n 07/11/15. CYST REMOVED FROM HEART 1958; LEFT TESTICLE REMOVED; [employer]. EGD W/ REMOVAL FB X3. Ostomy which failed, and redone. Colostomy since September 2018. Issues with sepsis since. At [facility] family was told Rene had a VAP which was drug resistant, unsure of type, November 2018. Past Anesthesia/Blood Transfusion Reactions: No Reported Reaction Additional Past Anesthesia/Blood Transfusion Reaction / Comm: no family hx Date of Last Stent Placement:: 02/11/16 Past Psychological History: PTSD Smoking Status: Never smoker Past Alcohol Use History: None Reported Past Drug Use History: None Reported - Past Family History Mother Family Medical History: Unable to Obtain Additional Family Medical History / Comment(s): Mother had a pacemaker. Father History Unknown: Yes Family Medical History: Myocardial Infarction (VT) Medications and Allergies Home Medications Medication Instructions Recorded Confirmed Type Nitroglycerin Sl Tabs [Nitrostat] 0.4 mg SL Q5M PRN 02/10/16 02/22/22 History Aspirin 81 mg PO DAILY@0800 04/09/16 02/22/22 History Levothyroxine Sodium [Synthroid] 100 mcg PO DAILY@0800 02/21/19 02/22/22 History Tamsulosin HCl [Flomax] 0.4 mg PO HS@199902/21/19 02/22/22 History HYDROcodone/APAP 10-325MG [Grimes 1 tab PO TID PRN 04/25/19 02/22/22 History 10-325] Atorvastatin [Lipitor] 20 mg PO HS@199904/16/20 02/22/22 History Baclofen 5 mg PO BID@0800,199904/16/20 02/22/22 History amLODIPine [Norvasc] 2.5 mg PO HS@199904/16/20 02/22/22 History ALPRAZolam [Xanax] 0.25 mg PO TID PRN 10/23/20 02/22/22 History Rivaroxaban [Xarelto] 10 mg PO DAILY@1700 10/23/20 02/22/22 History Multivitamins, Thera [Multivitamin 1 tab PO DAILY@0800 01/28/21 02/22/22 History (formulary)] Cranberry Fruit Extract [Cranberry] 500 mg PO HS@199906/11/21 02/22/22 History Docusate [Colace] 100 mg PO BID@0800,199906/11/21 02/22/22 History Pregabalin [Lyrica] 100 mg PO BID@08,199906/11/21 02/22/22 History Pantoprazole [Protonix] 40 mg PO AC-BRKFST 30 Days #30 tab 06/17/21 02/22/22 Rx Glimepiride [Amaryl] 2 mg PO AC-BRKFST 08/19/21 02/22/22 History Insulin Glargine,Hum.rec.anlog 5 unit SQ HS@1999 PRN 08/19/21 02/22/22 History [Lantus Solostar Pen] Metoprolol Tartrate [Lopressor] 12.5 mg PO BID@799,199908/19/21 02/22/22 History SILVER sulfADIAZINE Cream 1 applic TOPICAL BID PRN 08/19/21 02/22/22 History [Silvadene 1% Cream] Doxycycline Hyclate 100 mg PO BID 02/22/22 02/22/22 History Allergies Allergy/AdvReac Type Severity Reaction Status Date / Time No Known Allergies Allergy Verified 02/22/22 11:26 Surgical - Exam Vital Signs Temp Pulse Resp BP Pulse Ox 98.1 F 62 16 116/63 97 02/22/22 09:24 02/22/22 09:24 02/22/22 09:24 02/22/22 09:24 02/22/22 09:24 Results - Labs 02/23/22 11:24 02/22/22 11:15 Abnormal Lab Results - Last 24 Hours (Table) 02/22/22 02/22/22 02/22/22 Range/Units 10:29 10:29 11:15 RBC 4.24 L (4.30-5.90) m/uL Hgb 10.7 L (13.0-17.5) gm/dL Hct 34.3 L (39.0-53.0) % MCH (27.0-32.0) pg MCHC (32.0-37.0) g/dL RDW 19.8 H (11.5-15.5) % Lymphocytes # 0.8 L (1.0-4.8) k/uL PT 13.8 H (9.0-12.0) sec INR 1.3 H (<1.2) APTT 32.1 H (22.0-30.0) sec Sodium 136 L (137-145) mmol/L Chloride 109 H (98-107) mmol/L Glucose 134 H (74-99) mg/dL POC Glucose (mg/dL) (70-110) mg/dL Calcium 7.6 L (8.4-10.2) mg/dL Alkaline Phosphatase 186 H (38-126) U/L Total Protein 5.3 L (6.3-8.2) g/dL Albumin 2.1 L (3.5-5.0) g/dL Lipase 952 H (23-300) U/L 02/23/22 02/23/22 02/23/22 Range/Units 06:04 07:38 07:57 RBC 2.64 L (4.30-5.90) m/uL Hgb 6.6 L* (13.0-17.5) gm/dL Hct 22.2 L (39.0-53.0) % MCH 25.0 L (27.0-32.0) pg MCHC 29.7 L (32.0-37.0) g/dL RDW 21.8 H (11.5-15.5) % Lymphocytes # (1.0-4.8) k/uL PT (9.0-12.0) sec INR (<1.2) APTT (22.0-30.0) sec Sodium (137-145) mmol/L Chloride (98-107) mmol/L Glucose (74-99) mg/dL POC Glucose (mg/dL) 53 L 51 L (70-110) mg/dL Calcium (8.4-10.2) mg/dL Alkaline Phosphatase (38-126) U/L Total Protein (6.3-8.2) g/dL Albumin (3.5-5.0) g/dL Lipase (23-300) U/L Diabetes panel 02/22/22 Range/Units 11:15 Sodium 136 L (137-145) mmol/L Potassium 3.8 (3.5-5.1) mmol/L Chloride 109 H (98-107) mmol/L Carbon Dioxide 25 (22-30) mmol/L BUN 12 (9-20) mg/dL Creatinine 0.86 (0.66-1.25) mg/dL Glucose 134 H (74-99) mg/dL Calcium 7.6 L (8.4-10.2) mg/dL AST 30 (17-59) U/L ALT 20 (4-49) U/L Alkaline Phosphatase 186 H (38-126) U/L Total Protein 5.3 L (6.3-8.2) g/dL Albumin 2.1 L (3.5-5.0) g/dL Calcium panel 02/22/22 Range/Units 11:15 Calcium 7.6 L (8.4-10.2) mg/dL Albumin 2.1 L (3.5-5.0) g/dL Pituitary panel 02/22/22 Range/Units 11:15 Sodium 136 L (137-145) mmol/L Potassium 3.8 (3.5-5.1) mmol/L Chloride 109 H (98-107) mmol/L Carbon Dioxide 25 (22-30) mmol/L BUN 12 (9-20) mg/dL Creatinine 0.86 (0.66-1.25) mg/dL Glucose 134 H (74-99) mg/dL Calcium 7.6 L (8.4-10.2) mg/dL Adrenal panel 02/22/22 Range/Units 11:15 Sodium 136 L (137-145) mmol/L Potassium 3.8 (3.5-5.1) mmol/L Chloride 109 H (98-107) mmol/L Carbon Dioxide 25 (22-30) mmol/L BUN 12 (9-20) mg/dL Creatinine 0.86 (0.66-1.25) mg/dL Glucose 134 H (74-99) mg/dL Calcium 7.6 L (8.4-10.2) mg/dL Total Bilirubin 0.5 (0.2-1.3) mg/dL AST 30 (17-59) U/L ALT 20 (4-49) U/L Alkaline Phosphatase 186 H (38-126) U/L Total Protein 5.3 L (6.3-8.2) g/dL Albumin 2.1 L (3.5-5.0) g/dL
[2022-02-23 12:39] LABS: Erythrocyte Sedimentation Rate 23 mm/hr (0-15)
[2022-02-23 14:01] VITALS: BMI 31.0
[2022-02-23 16:27] LABS: Glucose,Whole Blood 74 mg/dL (70-110)
[2022-02-23] MEDS: RIVAROXABAN 10 MG TAB PO SCH (18:41)
[2022-02-23] MEDS: ATORVASTATIN 20 MG TAB PO SCH (19:32)
[2022-02-23] MEDS: TAMSULOSIN 0.4 MG CAP.ER.24H PO SCH (19:32)
[2022-02-23] MEDS: amLODIPine 2.5 MG TAB PO SCH (19:32)
[2022-02-23 19:58] LABS: Glucose,Whole Blood 80 mg/dL (70-110)
[2022-02-23] MEDS: VANCOMYCIN 1,750 MG in SODIUM CHLORIDE 0.9% 500 ML 500 ML IVPB SCH (22:13)
[2022-02-24] MEDS: AMPICILLIN-SULBACTAM 3 GM in SODIUM CHLORIDE 0.9% 100 ML IVPB SCH ×4 (01:42→18:00)
--- NOTE | 2022-02-24 05:31 | P.PN ---
Subjective Progress Note Date: 02/23/22 Chief Complaint: Stool coming on before previous ostomy site This is a very pleasant 86-year-old patient of Dr. Lopez. October 2018. - acute perforated diverticulitis- sigmoid colectomy,-with the right abdominal wall colostomy. being followed by Dr. Woodward from general surgery and Dr. Park from infectious disease. did have a colostomy in the past and had revision that was done at [facility].chronic stable medical conditions include gout, BPH, chronic low back pain, sacral decubitus wound Patient also had anterior abdominal wound which been healing . Had a PEG tube in the past that was removed in April 2020 Patient now presents to the ER as the previous colostomy site on the left side of the abdomen is putting out feculent matter. Denies any abdominal pain. No nausea vomiting. Oral intake is fair. Patient's chronic back words. Gait for by his son. No fever no chills. No pain. Patient is not ambulatory. 02/23/2022 Patient is seen in follow-up with general surgery and infectious disease following. Patient with the previous perforated diverticulitis pending and sigmoid colectomy and right abdominal wall colostomy that was revised in 2020 although experiencing some fecal matter from the abdominal site and awaiting general surgery consultation along with ID. Per nursing staff no plans for surgical intervention of the pre-existing ostomy as this is chronic. Will consult wounds along with ostomy nurse. Labs from this am revealed a marked drop in hemoglobin from 10 to 6 and suspicious for error as there is no active bleeding noted except for a small area of the buttock wounds with movement, that would not cause a 3-4 gram drop. Stat labs reordered as the bmp was also off per the lab. Repeat labs pending. Patient may benefit from debridement of the buttock area although surgery reports no debridement at this time. Continue local wound care and frequent offloading. Review of systems: GEN.: reports fatigue, no reports of fever or chills RESPIRATORY: No reports of shortness of breath or cough CARDIOVASCULAR: No reports of chest pain or palpitations GASTROINTESTINAL: reports some abdominal pain of the ostomy site, no diarrhea or nausea, reports feeling hungry GENITOURINARY: No reports of dysuria, has a nazario MUSCULOSKELETAL: reports Joint pains NEUROLOGICAL: non ambulatory, reports weakness Physical examination: GENERAL:, laying in bed, awake, moaning with movement EYES: Pupils equal. Conjunctiva normal. HEENT: External appearance of nose and ears normal, oral cavity grossly normal. NECK: JVD not raised; masses not palpable. HEART: First and second heart sounds are normal; no edema. LUNGS:[ Respiratory rate normal; decreased breath sounds. ABDOMEN: Soft, tenderness around the right ostomy site, no guarding no rigidity, bowel sounds present. Colostomy bag on the right side. abdominal wall stoma on the left side,-currently dressed. redness with some scar on the right side of abdomen. PSYCH: alert and oriented x3. Mood and affect normal NEUROLOGICAL: decreased power both lower extremities, diffusely weak DERMATOLOGICAL: Sacral wound : More details and nursing notes Assessment: -Feculent matter noted on the left abdominal stoma that was a previous colostomy site. Concern about fistula. -Chronic sacral wound decubitus . With some progression since previous computed tomography scan. -Right bundle-branch block -Paroxysmal atrial flutter, currently sinus rhythm -Coronary artery disease with prior history of stent and bypass -Sigmoid colectomy with a resultant right-sided colostomy -Hyperlipidemia -Essential hypertension -Primary osteoarthritis -BPH -Hypothyroidism -Chronic gout -PTSD Plan: Recommend to continue with current medications ID and wounds consulted and appreciate input and recommendations Repeat labs drawn and within normal limits. Initially hemoglobin was reported as 6.6 this am and a unit of prbc were ordered, but all lab values were incorrect and new hemoglobin is stable at 10.6. cancel unit of prbc PT/OT consult Lives at home with who cares for him with home care. Will discuss with case management. is the DPOA, and the elder son is also the agent for medical advocate for the Recommend offloading of the sacral/coccyx area and local wound care. Patient reports he follows at the wound clinic. Prognosis is guarded. The impression and plan of care has been dictated by Shey Lu, Nurse Practitioner as directed. Dr. Niecy MD I have performed a history and examination and MDM of this patient, discussed the same with the dictator, and agree with the dictator's assessment and plan as written ,documented as a scribe. Based on total visit time, I have performed more than 50% of the visit. Objective - Vital Signs Vital signs: Vital Signs Temp 97.7 F 02/23/22 08:00 Pulse 69 02/23/22 08:00 Resp 18 02/23/22 08:00 BP 142/65 02/23/22 08:00 Pulse Ox 98 02/23/22 08:00 FiO2 Intake & Output 02/22/22 02/23/22 02/23/22 18:59 06:59 18:59 Weight 95.254 kg 95.254 kg Other: Voiding Method Urinal Urinal - Labs CBC & Chem 7: 02/23/22 11:24 02/23/22 11:24 Labs: Abnormal Lab Results - Last 24 Hours (Table) 02/22/22 02/22/22 02/22/22 Range/Units 10:29 10:29 11:15 RBC 4.24 L (4.30-5.90) m/uL Hgb 10.7 L (13.0-17.5) gm/dL Hct 34.3 L (39.0-53.0) % MCH (27.0-32.0) pg MCHC (32.0-37.0) g/dL RDW 19.8 H (11.5-15.5) % Lymphocytes # 0.8 L (1.0-4.8) k/uL PT 13.8 H (9.0-12.0) sec INR 1.3 H (<1.2) APTT 32.1 H (22.0-30.0) sec Sodium 136 L (137-145) mmol/L Chloride 109 H (98-107) mmol/L Glucose 134 H (74-99) mg/dL POC Glucose (mg/dL) (70-110) mg/dL Calcium 7.6 L (8.4-10.2) mg/dL Alkaline Phosphatase 186 H (38-126) U/L Total Protein 5.3 L (6.3-8.2) g/dL Albumin 2.1 L (3.5-5.0) g/dL Lipase 952 H (23-300) U/L 02/23/22 02/23/22 02/23/22 Range/Units 06:04 07:38 07:57 RBC 2.64 L (4.30-5.90) m/uL Hgb 6.6 L* (13.0-17.5) gm/dL Hct 22.2 L (39.0-53.0) % MCH 25.0 L (27.0-32.0) pg MCHC 29.7 L (32.0-37.0) g/dL RDW 21.8 H (11.5-15.5) % Lymphocytes # (1.0-4.8) k/uL PT (9.0-12.0) sec INR (<1.2) APTT (22.0-30.0) sec Sodium (137-145) mmol/L Chloride (98-107) mmol/L Glucose (74-99) mg/dL POC Glucose (mg/dL) 53 L 51 L (70-110) mg/dL Calcium (8.4-10.2) mg/dL Alkaline Phosphatase (38-126) U/L Total Protein (6.3-8.2) g/dL Albumin (3.5-5.0) g/dL Lipase (23-300) U/L
[2022-02-24 06:29] LABS: Glucose,Whole Blood 52 mg/dL (70-110)
[2022-02-24] MEDS: PANTOPRAZOLE 40 MG TABLET PO SCH (06:31)
[2022-02-24] MEDS: GLIMEPIRIDE 2 MG TAB PO SCH (06:31)
[2022-02-24] MEDS: SODIUM CHLORIDE 0.9% 1,000 ML IV SCH (06:31)
[2022-02-24 07:11] LABS: African American GFR (CKD) >90 (>60 ml/min/1.73 sqM); Anion Gap 5 mmol/L; Blood Urea Nitrogen 7 mg/dL (9-20); Calcium 7.5 mg/dL (8.4-10.2); Carbon Dioxide 21 mmol/L (22-30); Chloride 112 mmol/L (98-107); Non-African American GFR(CKD) 80 (>60 ml/min/1.73 sqM); Potassium 3.7 mmol/L (3.5-5.1); Sodium 138 mmol/L (137-145)
[2022-02-24 07:16] LABS: Glucose,Whole Blood 79 mg/dL (70-110)
[2022-02-24 07:20] LABS: Glucose 37 mg/dL (74-99)
[2022-02-24] MEDS: HYDROcodone/APAP 10-325MG 1 EACH TAB PO PRN ×2 (08:21→20:14)
--- NOTE | 2022-02-24 09:25 | P.CONS ---
History of Present Illness - Reason for Consult Consult date: 02/24/22 wound care - History of Present Illness This is an 86-year-old patient known to the wound care center with multiple open ulcerations. The date acquired was: 02/12/2019. The wound has been in treatment 53 weeks. The wound is currently classified as a Full Thickness Without Exposed Support Structures wound with etiology of Open Surgical Wound and is located on the Right,Lateral Abdomen - Upper Quadrant. The wound measures 3.8cm length x 1.7cm width x 0.1cm depth; 5.074cm^2 area and 0.507cm^3 volume. The wound is limited to skin breakdown. There is no tunneling or undermining noted. There is a small amount of sanguinous drainage noted. The wound margin is indistinct and nonvisible. There is large (67-100%) red granulation within the wound bed. There is no necrotic tissue within the wound bed. The periwound skin appearance exhibited: Scarring, Maceration. The periwound skin appearance did not exhibit: Callus, Crepitus, Excoriation, Induration, Rash, Dry/Scaly, Atrophie Breana, Cyanosis, Ecchymosis, Hemosiderin Staining, Mottled, Pallor, Rubor, Erythema. Periwound temperature was noted as No Abnormality. General Notes: multiple small open wounds. Original cause of wound was Gradually Appeared. The date acquired was: 02/12/2019. The wound has been in treatment 53 weeks. The wound is currently classified as a Full Thickness Without Exposed Support Structures wound with etiology of Inflammatory and is located on the Medial Coccyx. The wound measures 10.8cm length x 6.4cm width x 0.1cm depth; 54.287cm^2 area and 5.429cm^3 volume. The wound is limited to skin breakdown. There is no tunneling or undermining noted. There is a medium amount of serous drainage noted. The wound margin is fibrotic, thickened scar. There is large (67-100%) red, friable granulation within the wound bed. There is a small (1-33%) amount of necrotic tissue within the wound bed including Adherent Slough. The periwound skin appearance exhibited: Excoriation, Scarring, Dry/Scaly, Ecchymosis. The periwound skin appearance did not exhibit: Callus, Crepitus, Induration, Rash, Maceration, Atrophie Breana, Cyanosis, Hemosiderin Staining, Mottled, Pallor, Rubor, Erythema. Periwound temperature was noted as No Abnormality. The periwound has tenderness on palpation. General Notes: multiple open wounds and excoriation. Original cause of wound was Shear/Friction. The date acquired was: 02/01/2022. The wound has been in treatment 1 weeks. The wound is currently classified as a Full Thickness Without Exposed Support Structures wound with etiology of To be determined and is located on the Right,Proximal Upper Leg. The wound measures 2.8cm length x 1.5cm width x 0.1cm depth; 3.299cm^2 area and 0.33cm^3 volume. There is no tunneling or undermining noted. There is a medium amount of serosanguineous drainage noted. There is large (67-100%) red granulation within the wound bed. There is a small (1-33%) amount of necrotic tissue within the wound bed including Adherent Slough. The periwound skin appearance exhibited: Scarring. The periwound skin appearance did not exhibit: Callus, Crepitus, Excoriation, Induration, Rash, Dry/Scaly, Maceration, Atrophie Gypsum, Cyanosis, Ecchymosis, Hemosiderin Staining, Mottled, Pallor, Rubor, Erythema. Patient has had multiple dressings to the site which has progressed to decline in the ulceration. Patient is not able to tolerate aggressive debridements or increased moisture to the sacral. Review Of Systems: Constitutional: No fever, no chills, no night sweats. No weight change. No weakness, fatigue or lethargy. No daytime sleepiness. Integumentary:reports wounds, no lesions. No rash or pruritus. No unusual bruising. No change in hair or nails. Physical exam: General Appearance: Alert, cooperative, no distress, appears stated age. Skin: See HPI all other Skin color, texture, tugor normal, no rashes or lesions. Neurologic: Alert oriented x3 Assessment: 1. Stage IV pressure ulcer sacral region 2. 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 Sacral ulceration and right upper leg: Apply Adaptic and Triad to the site. Change daily. Not using any adhesive 2. Abdominal ulceration apply triad 3. Patient will continue to follow in the wound care center for wound care. Thank you for the consultation any questions contact the wound care center DNP note has been reviewed and discussed with Dr. Munguia and the impression a nd plan of care has been directed as dictated. Past Medical History Past Medical History: Atrial Fibrillation, Atrial Flutter, Coronary Artery Disease (CAD), Chest Pain / Angina, CVA/TIA, Hyperlipidemia, Hypertension, Myocardial Infarction ([place]), Osteoarthritis (OA), Prostate Disorder, Skin Disorder, Thyroid Disorder Additional Past Medical History / Comment(s): Diverticulitis, HX PERFORATION. Gout. Eczema. BPH. Chronic Back Pain D/T PINCHED NERVE, has been bedridden since September. HX VERTIGO. FOOD GETTING STUCK IN THROAT - REMOVAL X3. 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 CABG X3 0n 07/11/15. CYST REMOVED FROM HEART 1958; LEFT TESTICLE REMOVED; МАРИНА CATARACTS. EGD W/ REMOVAL FB X3. Ostomy which failed, and redone. Colostomy since September 2018. Issues with sepsis since. 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 Past Anesthesia/Blood Transfusion Reactions: No Reported Reaction Additional Past Anesthesia/Blood Transfusion Reaction / Comm: no family hx Date of Last Stent Placement:: 02/11/16 Past Psychological History: PTSD Smoking Status: Never smoker Past Alcohol Use History: None Reported Past Drug Use History: None Reported - Past Family History Mother Family Medical History: Unable to Obtain Additional Family Medical History / Comment(s): Mother had a pacemaker. Father History Unknown: Yes Family Medical History: Myocardial Infarction ([place]) Medications and Allergies Home Medications Medication Instructions Recorded Confirmed Type Nitroglycerin Sl Tabs [Nitrostat] 0.4 mg SL Q5M PRN 02/10/16 02/22/22 History Aspirin 81 mg PO DAILY@0800 04/09/16 02/22/22 History Levothyroxine Sodium [Synthroid] 100 mcg PO DAILY@0800 02/21/19 02/22/22 History Tamsulosin HCl [Flomax] 0.4 mg PO HS@199902/21/19 02/22/22 History HYDROcodone/APAP 10-325MG [[place] 1 tab PO TID PRN 04/25/19 02/22/22 History 10-325] Atorvastatin [Lipitor] 20 mg PO HS@199904/16/20 02/22/22 History Baclofen 5 mg PO BID@0800,199904/16/20 02/22/22 History amLODIPine [Norvasc] 2.5 mg PO HS@199904/16/20 02/22/22 History ALPRAZolam [Xanax] 0.25 mg PO TID PRN 10/23/20 02/22/22 History Rivaroxaban [Xarelto] 10 mg PO DAILY@1700 10/23/20 02/22/22 History Multivitamins, Thera [Multivitamin 1 tab PO DAILY@0800 01/28/21 02/22/22 History (formulary)] Cranberry Fruit Extract [Cranberry] 500 mg PO HS@199906/11/21 02/22/22 History Docusate [Colace] 100 mg PO BID@0800,199906/11/21 02/22/22 History Pregabalin [Lyrica] 100 mg PO BID@0800,199906/11/21 02/22/22 History Pantoprazole [Protonix] 40 mg PO AC-BRKFST 30 Days #30 tab 06/17/21 02/22/22 Rx Glimepiride [Amaryl] 2 mg PO AC-BRKFST 08/19/21 02/22/22 History Insulin Glargine,Hum.rec.anlog 5 unit SQ HS@1999 PRN 08/19/21 02/22/22 History [Lantus Solostar Pen] Metoprolol Tartrate [Lopressor] 12.5 mg PO BID@0800,199908/19/21 02/22/22 History SILVER sulfADIAZINE Cream 1 applic TOPICAL BID PRN 08/19/21 02/22/22 History [Silvadene 1% Cream] Doxycycline Hyclate 100 mg PO BID 02/22/22 02/22/22 History Allergies Allergy/AdvReac Type Severity Reaction Status Date / Time No Known Allergies Allergy Verified 02/22/22 11:26 Physical Exam Vitals: Vital Signs Temp Pulse Resp BP Pulse Ox 02/24/22 08:00 98.0 F 99 16 129/73 96 02/24/22 02:00 97.9 F 94 16 122/70 94 L 02/23/22 20:00 98.0 F 74 16 132/64 94 L 02/23/22 14:00 97.7 F 58 L 18 132/68 100 Intake and Output 02/23/22 02/24/22 02/24/22 22:59 06:59 14:59 Output Total 400 800 Balance -400 -800 Output: Urine 400 800 Other: Voiding Method External Catheter # Bowel Movements 1 Results CBC & Chem 7: 02/23/22 11:24 02/24/22 05:57 Labs: Abnormal Lab Results - Last 24 Hours (Table) 02/23/22 02/23/22 02/23/22 Range/Units 10:26 11:24 11:24 RBC 4.16 L (4.30-5.90) m/uL Hgb 10.8 L (13.0-17.5) gm/dL Hct 34.6 L (39.0-53.0) % RDW 19.7 H (11.5-15.5) % Lymphocytes # 0.6 L (1.0-4.8) k/uL ESR 23 H (0-15) mm/hr Sodium 136 L (137-145) mmol/L Chloride (98-107) mmol/L Carbon Dioxide (22-30) mmol/L BUN (9-20) mg/dL Glucose 110 H (74-99) mg/dL POC Glucose (mg/dL) (70-110) mg/dL Calcium 7.9 L (8.4-10.2) mg/dL Alkaline Phosphatase 202 H (38-126) U/L C-Reactive Protein 5.2 H (<1.0) mg/dL Total Protein 5.7 L (6.3-8.2) g/dL Albumin 2.2 L (3.5-5.0) g/dL Crossmatch See Detail 02/23/22 02/24/22 02/24/22 Range/Units 11:37 05:57 06:27 RBC (4.30-5.90) m/uL Hgb (13.0-17.5) gm/dL Hct (39.0-53.0) % RDW (11.5-15.5) % Lymphocytes # (1.0-4.8) k/uL ESR (0-15) mm/hr Sodium (137-145) mmol/L Chloride 112 H (98-107) mmol/L Carbon Dioxide 21 L (22-30) mmol/L BUN 7 L (9-20) mg/dL Glucose 37 L* (74-99) mg/dL POC Glucose (mg/dL) 114 H 52 L (70-110) mg/dL Calcium 7.5 L (8.4-10.2) mg/dL Alkaline Phosphatase (38-126) U/L C-Reactive Protein (<1.0) mg/dL Total Protein (6.3-8.2) g/dL Albumin (3.5-5.0) g/dL Crossmatch Microbiology - Last 24 Hours (Table) 02/22/22 10:29 Blood Culture - Preliminary Blood No Growth after 24 hours 02/22/22 10:29 Blood Culture - Preliminary Blood No Growth after 24 hours Assessment and Plan (1) Stage IV pressure ulcer of sacral region Current Visit: No Status: Acute Code(s): L89.154 - PRESSURE ULCER OF SACRAL REGION, STAGE 4 SNOMED Code(s): 76116880638149826 (2) Non-pressure chronic ulcer of skin of other sites with fat layer exposed Current Visit: No Status: Acute Code(s): L98.492 - NON-PRS CHRONIC ULCER OF SKIN OF SITES W FAT LAYER EXPOSED SNOMED Code(s): 21179283
[2022-02-24] MEDS: BACLOFEN 10 MG TAB PO SCH ×2 (09:30→20:14)
[2022-02-24] MEDS: PREGABALIN 100 MG CAP PO SCH ×2 (09:30→20:15)
[2022-02-24] MEDS: ASPIRIN 81 MG PO SCH (09:31)
[2022-02-24] MEDS: METOPROLOL TARTRATE 12.5 MG TAB PO SCH ×2 (09:31→20:14)
[2022-02-24] MEDS: MULTIVITAMINS, THERA 1 EACH TAB PO SCH (09:31)
[2022-02-24] MEDS: LEVOTHYROXINE 100 MCG TAB PO SCH (09:31)
[2022-02-24] MEDS: DOCUSATE 100 MG CAP PO SCH ×2 (09:31→20:15)
--- NOTE | 2022-02-24 11:22 | P.PN ---
Subjective Progress Note Date: 02/24/22 CHIEF COMPLAINT: Sacral decubitus ulcer HISTORY OF PRESENT ILLNESS: Patient lying in bed comfortably. He reports no abdominal pain. His ostomy is functioning. Small amount of drainage from the mucous fistula noted on the bandage. He is seen by wound care service for his sacral ulcer as well as infectious disease. Afebrile. Sodium 138 potassium 3.7 creatinine 0.83 glucose 37 albumin 2.2 PHYSICAL EXAM: VITAL SIGNS: Reviewed. GENERAL: Well-developed in no acute distress. HEENT: No sclera icterus. Extraocular movements grossly intact. Moist buccal mucosa. Head is atraumatic, normocephalic. ABDOMEN: Soft. Obese. Nondistended. Left-sided abdomen mucous fistula with dressing has a small amount of dark output noted along the edge.. Right side colostomy bag with stool noted. Patient does have skin irritation and scabbing around the colostomy bag. NEUROLOGIC: Alert and oriented. Cranial nerves II through XII grossly intact. ASSESSMENT: 1. Left-sided abdomen with chronic mucous fistula 2. 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 Elevated pancreas level. No abdominal pain. PLAN: -No surgical intervention planned on mucous fistula or sacral decubitus ulcer -Recommend patient follow up with tertiary care center regarding his sacral decubitus ulcer -Continue local wound care -Continue antibiotics per ID service -Hypoglycemia management per medicine service Physician [employer] note has been reviewed by physician. Signing provider agrees with the documented findings, assessment, and plan of care. Objective - Vital Signs Vital signs: Vital Signs Temp 98.0 F 02/24/22 08:00 Pulse 99 02/24/22 08:00 Resp 16 02/24/22 08:00 BP 129/73 02/24/22 08:00 Pulse Ox 96 02/24/22 08:00 FiO2 Intake & Output 02/23/22 02/24/22 02/24/22 18:59 06:59 18:59 Output Total 400 800 Balance -400 -800 Weight 95.254 kg Output: Urine 400 800 Other: Voiding Method Urinal External Catheter External Catheter # Bowel Movements 1 - Labs CBC & Chem 7: 02/23/22 11:24 02/24/22 05:57 Labs: Abnormal Lab Results - Last 24 Hours (Table) 02/23/22 02/23/22 02/23/22 Range/Units 10:26 11:24 11:24 RBC 4.16 L (4.30-5.90) m/uL Hgb 10.8 L (13.0-17.5) gm/dL Hct 34.6 L (39.0-53.0) % RDW 19.7 H (11.5-15.5) % Lymphocytes # 0.6 L (1.0-4.8) k/uL ESR 23 H (0-15) mm/hr Sodium 136 L (137-145) mmol/L Chloride (98-107) mmol/L Carbon Dioxide (22-30) mmol/L BUN (9-20) mg/dL Glucose 110 H (74-99) mg/dL POC Glucose (mg/dL) (70-110) mg/dL Calcium 7.9 L (8.4-10.2) mg/dL Alkaline Phosphatase 202 H (38-126) U/L C-Reactive Protein 5.2 H (<1.0) mg/dL Total Protein 5.7 L (6.3-8.2) g/dL Albumin 2.2 L (3.5-5.0) g/dL Crossmatch See Detail 02/23/22 02/24/22 02/24/22 Range/Units 11:37 05:57 06:27 RBC (4.30-5.90) m/uL Hgb (13.0-17.5) gm/dL Hct (39.0-53.0) % RDW (11.5-15.5) % Lymphocytes # (1.0-4.8) k/uL ESR (0-15) mm/hr Sodium (137-145) mmol/L Chloride 112 H (98-107) mmol/L Carbon Dioxide 21 L (22-30) mmol/L BUN 7 L (9-20) mg/dL Glucose 37 L* (74-99) mg/dL POC Glucose (mg/dL) 114 H 52 L (70-110) mg/dL Calcium 7.5 L (8.4-10.2) mg/dL Alkaline Phosphatase (38-126) U/L C-Reactive Protein (<1.0) mg/dL Total Protein (6.3-8.2) g/dL Albumin (3.5-5.0) g/dL Crossmatch Microbiology - Last 24 Hours (Table) 02/22/22 10:29 Blood Culture - Preliminary Blood No Growth after 24 hours 02/22/22 10:29 Blood Culture - Preliminary Blood No Growth after 24 hours
[2022-02-24 12:05] LABS: Glucose,Whole Blood 90 mg/dL (70-110)
[2022-02-24] MEDS: HYDROPHILIC CREAM 180 GM TUBE TOPICAL SCH (14:00)
--- NOTE | 2022-02-24 15:18 | P.PN ---
Subjective Progress Note Date: 02/24/22 Chief Complaint: Stool coming on before previous ostomy site This is a very pleasant 86-year-old patient of Dr. Lopez. October 2018. - acute perforated diverticulitis- sigmoid colectomy,-with the right abdominal wall colostomy. being followed by Dr. Woodward from general surgery and Dr. Park from infectious disease. did have a colostomy in the past and had revision that was done at [facility].chronic stable medical conditions include gout, BPH, chronic low back pain, sacral decubitus wound Patient also had anterior abdominal wound which been healing . Had a PEG tube in the past that was removed in April 2020 Patient now presents to the ER as the previous colostomy site on the left side of the abdomen is putting out feculent matter. Denies any abdominal pain. No nausea vomiting. Oral intake is fair. Patient's chronic back words. Gait for by his son. No fever no chills. No pain. Patient is not ambulatory. 02/23/2022 Patient is seen in follow-up with general surgery and infectious disease following. Patient with the previous perforated diverticulitis pending and sigmoid colectomy and right abdominal wall colostomy that was revised in 2020 although experiencing some fecal matter from the abdominal site and awaiting general surgery consultation along with ID. Per nursing staff no plans for surgical intervention of the pre-existing ostomy as this is chronic. Will consult wounds along with ostomy nurse. Labs from this am revealed a marked drop in hemoglobin from 10 to 6 and suspicious for error as there is no active bleeding noted except for a small area of the buttock wounds with movement, that would not cause a 3-4 gram drop. Stat labs reordered as the bmp was also off per the lab. Repeat labs pending. Patient may benefit from debridement of the buttock area although surgery reports no debridement at this time. Continue local wound care and frequent offloading. 02/24/2022 Patient is seen today requesting if he can go home. Patient reports to feeling better although per nursing staff is having intermittent periods of crying out in pain and refusing to have staff turn and rotate him due to pain. General surgery evaluated the patient requesting possible debridement although given the extensive bony destruction with concerns for osteomyelitis and progression ID recommending deep tissue cultures and debridement and Gen. surgery requesting tertiary treatment center transfer. Discussed with the family and will initiate the process with case management following. Preferences [facility] as they are adamantly refusing to go down into the city to places such as [facility]. Patient is afebrile denies chest pain or shortness of breath. Patient did have an episode of hypoglycemia this morning that was corrected with juice and did tolerate breakfast. Oral intake is fair. Patient is continued on IV ampicillin along with vancomycin with anxiety following closely. Patient will likely require extensive wound care after the debridement along with IV antibiotics in the outpatient setting. Review of systems: GEN.: reports fatigue, no reports of fever or chills RESPIRATORY: No reports of shortness of breath or cough CARDIOVASCULAR: No reports of chest pain or palpitations GASTROINTESTINAL: reports some abdominal pain of the ostomy site, no diarrhea or nausea GENITOURINARY: No reports of dysuria, has a nazario MUSCULOSKELETAL: reports Joint pains NEUROLOGICAL: non ambulatory, reports weakness Physical examination: GENERAL:, laying in bed, awake, alert and oriented 3, obese EYES: Pupils equal. Conjunctiva normal. HEENT: External appearance of nose and ears normal, oral cavity grossly normal. NECK: JVD not raised; masses not palpable. HEART: First and second heart sounds are normal; no edema. LUNGS: Respiratory rate normal; decreased breath sounds. ABDOMEN: Soft, tenderness around the right ostomy site, no guarding no rigidity, bowel sounds present. Colostomy bag on the right side. abdominal wall stoma on the left side,-currently dressed. redness with some scar on the right side of abdomen. PSYCH: alert and oriented x3. Mood and affect normal NEUROLOGICAL: decreased power both lower extremities, diffusely weak DERMATOLOGICAL: Sacral wound : More details and nursing notes Assessment: -Feculent matter noted on the left abdominal stoma that was a previous colostomy site. Concern about fistula. Fistula ruled out for surgery -Chronic sacral wound decubitus . With some progression since previous computed tomography scan. Concerns for osteomyelitis of the sacrum -Right bundle-branch block -Paroxysmal atrial flutter, currently sinus rhythm -Coronary artery disease with prior history of stent and bypass -Sigmoid colectomy with a resultant right-sided colostomy -Hyperlipidemia -Essential hypertension -Primary osteoarthritis -BPH -Hypothyroidism -Chronic gout -PTSD Plan: Recommend to continue with current medications ID and wounds consulted and following maintained on ampicillin and vancomycin recommending deep tissue cultures with debridement which will require transfer to tertiary treatment center in attempting [facility] with case management following PT/OT to evaluate the patient Lives at home with who cares for him with home care. Will discuss with case management. is the DPOA, and the elder son is also the agent for medical advocate for the Recommend offloading of the sacral/coccyx area and local wound care. General surgery evaluated the patient recommending no debridement at this time and ID following as well and will attempt transfer to tertiary treatment center as patient needs deep tissue cultures and debridement of the sacral area. Encouraged oral intake Prognosis is guarded. The impression and plan of care has been dictated by Shey Lu, Nurse Practitioner as directed. Dr. Niecy MD I have performed a history and examination and MDM of this patient, discussed the same with the dictator, and agree with the dictator's assessment and plan as written ,documented as a scribe. Based on total visit time, I have performed more than 50% of the visit. Objective - Vital Signs Vital signs: Vital Signs Temp 98.0 F 02/24/22 08:00 Pulse 99 02/24/22 08:00 Resp 16 02/24/22 08:00 BP 129/73 02/24/22 08:00 Pulse Ox 96 02/24/22 08:00 FiO2 Intake & Output 02/23/22 02/24/22 02/24/22 18:59 06:59 18:59 Output Total 400 800 Balance -400 -800 Weight 95.254 kg Output: Urine 400 800 Other: Voiding Method Urinal External Catheter # Bowel Movements 1 - Labs CBC & Chem 7: 02/23/22 11:24 02/24/22 05:57 Labs: Abnormal Lab Results - Last 24 Hours (Table) 02/23/22 02/23/22 02/23/22 Range/Units 10:26 11:24 11:24 RBC 4.16 L (4.30-5.90) m/uL Hgb 10.8 L (13.0-17.5) gm/dL Hct 34.6 L (39.0-53.0) % RDW 19.7 H (11.5-15.5) % Lymphocytes # 0.6 L (1.0-4.8) k/uL ESR 23 H (0-15) mm/hr Sodium 136 L (137-145) mmol/L Chloride (98-107) mmol/L Carbon Dioxide (22-30) mmol/L BUN (9-20) mg/dL Glucose 110 H (74-99) mg/dL POC Glucose (mg/dL) (70-110) mg/dL Calcium 7.9 L (8.4-10.2) mg/dL Alkaline Phosphatase 202 H (38-126) U/L C-Reactive Protein 5.2 H (<1.0) mg/dL Total Protein 5.7 L (6.3-8.2) g/dL Albumin 2.2 L (3.5-5.0) g/dL Crossmatch See Detail 02/23/22 02/24/22 02/24/22 Range/Units 11:37 05:57 06:27 RBC (4.30-5.90) m/uL Hgb (13.0-17.5) gm/dL Hct (39.0-53.0) % RDW (11.5-15.5) % Lymphocytes # (1.0-4.8) k/uL ESR (0-15) mm/hr Sodium (137-145) mmol/L Chloride 112 H (98-107) mmol/L Carbon Dioxide 21 L (22-30) mmol/L BUN 7 L (9-20) mg/dL Glucose 37 L* (74-99) mg/dL POC Glucose (mg/dL) 114 H 52 L (70-110) mg/dL Calcium 7.5 L (8.4-10.2) mg/dL Alkaline Phosphatase (38-126) U/L C-Reactive Protein (<1.0) mg/dL Total Protein (6.3-8.2) g/dL Albumin (3.5-5.0) g/dL Crossmatch Microbiology - Last 24 Hours (Table) 02/22/22 10:29 Blood Culture - Preliminary Blood No Growth after 24 hours 02/22/22 10:29 Blood Culture - Preliminary Blood No Growth after 24 hours
[2022-02-24] MEDS: VANCOMYCIN 1,750 MG in SODIUM CHLORIDE 0.9% 500 ML 500 ML IVPB SCH (15:28)
[2022-02-24 17:09] LABS: Glucose,Whole Blood 69 mg/dL (70-110)
[2022-02-24] MEDS: RIVAROXABAN 10 MG TAB PO SCH (17:23)
[2022-02-24 18:02] LABS: Glucose,Whole Blood 83 mg/dL (70-110)
[2022-02-24] MEDS: ATORVASTATIN 20 MG TAB PO SCH (20:14)
[2022-02-24] MEDS: TAMSULOSIN 0.4 MG CAP.ER.24H PO SCH (20:15)
[2022-02-24] MEDS: amLODIPine 2.5 MG TAB PO SCH (20:15)
[2022-02-24 22:02] LABS: Glucose,Whole Blood 74 mg/dL (70-110)
--- NOTE | 2022-02-24 23:36 | P.PN ---
Subjective Progress Note Date: 02/23/22 Principal diagnosis: Infected sacral pressure ulcer abnormal CT suggestive of osteomyelitis Patient is a 86-year-old male with multiple comorbidities in this patient with history of complicated diverticulitis status post diverting colostomy did have a mucous fistula also have a recurrent sacral pressure ulcer with a CT done this admission did shows destruction of the sacrum suggestive of osteomyelitis On today's evaluation that is 02/23/2022, the patient denies having any fever or any chills the patient is feeling better his breathing comfortably and no chest pain or shortness of breath or cough no abdominal pain or any worsening pain to the sacral wound area Objective - Vital Signs Vital signs: Vital Signs Temp 98.0 F 02/23/22 20:00 Pulse 74 02/23/22 20:00 Resp 16 02/23/22 20:00 BP 132/64 02/23/22 20:00 Pulse Ox 94 L 02/23/22 20:00 FiO2 Intake & Output 02/23/22 02/23/22 02/24/22 06:59 18:59 06:59 Output Total 400 Balance -400 Weight 95.254 kg 95.254 kg Output: Urine 400 Other: Voiding Method Urinal Urinal External Catheter # Bowel Movements 1 - Exam GENERAL DESCRIPTION: An elderly male lying in bed in no distress RESPIRATORY SYSTEM: Unlabored breathing , decreased breath sounds at bases HEART: S1 S2 regular rate and rhythm , ABDOMEN: Soft , no tenderness EXTREMITIES: No edema feet - Labs CBC & Chem 7: 02/23/22 11:24 02/24/22 05:57 Labs: Abnormal Lab Results - Last 24 Hours (Table) 02/23/22 02/23/22 02/23/22 Range/Units 07:38 07:57 10:26 RBC (4.30-5.90) m/uL Hgb (13.0-17.5) gm/dL Hct (39.0-53.0) % RDW (11.5-15.5) % Lymphocytes # (1.0-4.8) k/uL ESR (0-15) mm/hr Sodium (137-145) mmol/L Glucose (74-99) mg/dL POC Glucose (mg/dL) 53 L 51 L (70-110) mg/dL Calcium (8.4-10.2) mg/dL Alkaline Phosphatase (38-126) U/L C-Reactive Protein (<1.0) mg/dL Total Protein (6.3-8.2) g/dL Albumin (3.5-5.0) g/dL Crossmatch See Detail 02/23/22 02/23/22 02/23/22 Range/Units 11:24 11:24 11:37 RBC 4.16 L (4.30-5.90) m/uL Hgb 10.8 L (13.0-17.5) gm/dL Hct 34.6 L (39.0-53.0) % RDW 19.7 H (11.5-15.5) % Lymphocytes # 0.6 L (1.0-4.8) k/uL ESR 23 H (0-15) mm/hr Sodium 136 L (137-145) mmol/L Glucose 110 H (74-99) mg/dL POC Glucose (mg/dL) 114 H (70-110) mg/dL Calcium 7.9 L (8.4-10.2) mg/dL Alkaline Phosphatase 202 H (38-126) U/L C-Reactive Protein 5.2 H (<1.0) mg/dL Total Protein 5.7 L (6.3-8.2) g/dL Albumin 2.2 L (3.5-5.0) g/dL Crossmatch Microbiology - Last 24 Hours (Table) 02/22/22 10:29 Blood Culture - Preliminary Blood No Growth after 24 hours 02/22/22 10:29 Blood Culture - Preliminary Blood No Growth after 24 hours Assessment and Plan (1) Sacral osteomyelitis Current Visit: Yes Status: Acute Code(s): M46.28 - OSTEOMYELITIS OF VERTEBRA, SACRAL AND SACROCOCCYGEAL REGION SNOMED Code(s): 843564932 (2) Stage IV decubitus ulcer Current Visit: Yes Status: Acute Code(s): L89.94 - PRESSURE ULCER OF UNSPECIFIED SITE, STAGE 4 SNOMED Code(s): 5770700893 Plan: 1patient with 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 2patient with the stage IV sacral pressure ulcer now with evidence of bony erosion of the sacrum on the CT. 3patient need surgical debridement of his sacral wound and deep culture that will guide further antibiotic therapy. 4patient to continue with the vancomycin and Unasyn , discussed with the surgical team who is recommended the patient to be transferred to tertiary care for any surgical debridement Time with Patient: Less than 30
--- NOTE | 2022-02-24 23:38 | P.PN ---
Subjective Progress Note Date: 02/24/22 Principal diagnosis: Infected sacral pressure ulcer abnormal CT suggestive of osteomyelitis Patient is a 86-year-old male with multiple comorbidities in this patient with history of complicated diverticulitis status post diverting colostomy did have a mucous fistula also have a recurrent sacral pressure ulcer with a CT done this admission did shows destruction of the sacrum suggestive of osteomyelitis On today's evaluation that is 02/24/2022, the patient continues to be febrile, the patient is breathing comfortably on room air, the patient denies chest pain or shortness of breath or cough no abdominal pain or any worsening pain to the sacral wound area Objective - Vital Signs Vital signs: Vital Signs Temp 98.0 F 02/24/22 08:00 Pulse 99 02/24/22 08:00 Resp 16 02/24/22 08:00 BP 129/73 02/24/22 08:00 Pulse Ox 96 02/24/22 08:00 FiO2 Intake & Output 02/23/22 02/24/22 02/24/22 18:59 06:59 18:59 Output Total 400 800 Balance -400 -800 Weight 95.254 kg Output: Urine 400 800 Other: Voiding Method Urinal External Catheter External Catheter # Bowel Movements 1 - Exam GENERAL DESCRIPTION: An elderly male lying in bed in no distress RESPIRATORY SYSTEM: Unlabored breathing , decreased breath sounds at bases HEART: S1 S2 regular rate and rhythm , ABDOMEN: Soft , no tenderness EXTREMITIES: No edema feet - Labs CBC & Chem 7: 02/23/22 11:24 02/24/22 05:57 Labs: Abnormal Lab Results - Last 24 Hours (Table) 02/24/22 02/24/22 Range/Units 05:57 06:27 Chloride 112 H (98-107) mmol/L Carbon Dioxide 21 L (22-30) mmol/L BUN 7 L (9-20) mg/dL Glucose 37 L* (74-99) mg/dL POC Glucose (mg/dL) 52 L (70-110) mg/dL Calcium 7.5 L (8.4-10.2) mg/dL Microbiology - Last 24 Hours (Table) 02/22/22 10:29 Blood Culture - Preliminary Blood No Growth after 48 hours 02/22/22 10:29 Blood Culture - Preliminary Blood No Growth after 48 hours Assessment and Plan (1) Sacral osteomyelitis Current Visit: Yes Status: Acute Code(s): M46.28 - OSTEOMYELITIS OF VERTEBRA, SACRAL AND SACROCOCCYGEAL REGION SNOMED Code(s): 209056500 (2) Stage IV decubitus ulcer Current Visit: Yes Status: Acute Code(s): L89.94 - PRESSURE ULCER OF UNSPECIFIED SITE, STAGE 4 SNOMED Code(s): 5462109465 Plan: 1patient with 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 2patient with the stage IV sacral pressure ulcer now with evidence of bony erosion of the sacrum on the CT. 3patient need surgical debridement of his sacral wound and deep culture that will guide further antibiotic therapy, [facility] and deep cultures son was at the bedside he did have multiple questions and concerns which were answered in Layman terms 4patient to continue with the vancomycin and Unasyn while waiting for transfer to different facility Time with Patient: Less than 30
[2022-02-25] MEDS: AMPICILLIN-SULBACTAM 3 GM in SODIUM CHLORIDE 0.9% 100 ML IVPB SCH ×4 (00:55→16:54)
[2022-02-25] MEDS ORDERED: VANCOMYCIN TROUGH DUE 1 EACH MISC MISCELLANE ONE (05:00)
[2022-02-25 06:09] LABS: Glucose,Whole Blood 44 mg/dL (70-110)
[2022-02-25 06:25] LABS: African American GFR (CKD) >90 (>60 ml/min/1.73 sqM); Anion Gap 4 mmol/L; Blood Urea Nitrogen 9 mg/dL (9-20); Calcium 7.2 mg/dL (8.4-10.2); Carbon Dioxide 24 mmol/L (22-30); Chloride 112 mmol/L (98-107); Non-African American GFR(CKD) 80 (>60 ml/min/1.73 sqM); Potassium 3.1 mmol/L (3.5-5.1); Sodium 140 mmol/L (137-145)
[2022-02-25 06:28] LABS: Glucose 41 mg/dL (74-99)
[2022-02-25 06:32] LABS: Glucose,Whole Blood 49 mg/dL (70-110)
[2022-02-25] MEDS: GLIMEPIRIDE 2 MG TAB PO SCH (06:43)
[2022-02-25] MEDS: VANCOMYCIN 1,750 MG in SODIUM CHLORIDE 0.9% 500 ML 500 ML IVPB SCH (06:47)
[2022-02-25] MEDS: PANTOPRAZOLE 40 MG TABLET PO SCH (06:47)
[2022-02-25 06:52] LABS: Glucose,Whole Blood 75 mg/dL (70-110)
[2022-02-25] MEDS: SODIUM CHLORIDE 0.9% 1,000 ML IV SCH ×2 (07:49→07:50)
[2022-02-25 07:58] LABS: Glucose,Whole Blood 141 mg/dL (70-110)
[2022-02-25] MEDS: LEVOTHYROXINE 100 MCG TAB PO SCH (08:56)
[2022-02-25] MEDS: ASPIRIN 81 MG PO SCH (08:56)
[2022-02-25] MEDS: BACLOFEN 10 MG TAB PO SCH ×2 (08:56→19:49)
[2022-02-25] MEDS: PREGABALIN 100 MG CAP PO SCH ×2 (08:56→19:50)
[2022-02-25] MEDS: MULTIVITAMINS, THERA 1 EACH TAB PO SCH (08:56)
[2022-02-25] MEDS: METOPROLOL TARTRATE 12.5 MG TAB PO SCH ×2 (08:56→19:50)
[2022-02-25] MEDS: DOCUSATE 100 MG CAP PO SCH ×2 (08:56→19:50)
[2022-02-25] MEDS: HYDROPHILIC CREAM 180 GM TUBE TOPICAL SCH (08:59)
[2022-02-25] MEDS ORDERED: Potassium Replacement Protocol 1 EACH MISC MISCELLANE PRN (09:37)
[2022-02-25] MEDS ORDERED: DEXTROSE 50% SYRINGE 50 ML IVP PRN ×2 (09:38)
[2022-02-25] MEDS: HYDROcodone/APAP 10-325MG 1 EACH TAB PO PRN ×2 (09:44→19:51)
[2022-02-25] MEDS: POTASSIUM CHLORIDE ER 20 MEQ TAB.ER PO SCH ×2 (09:44→10:26)
[2022-02-25 11:17] LABS: Glucose,Whole Blood 133 mg/dL (70-110)
[2022-02-25] MEDS: INSULIN ASPART (NovoLOG) 100 UNIT/ML VIAL SQ SCH ×2 (12:01→17:28)
--- NOTE | 2022-02-25 15:41 | P.PN ---
Subjective Progress Note Date: 02/25/22 CHIEF COMPLAINT: Sacral decubitus ulcer HISTORY OF PRESENT ILLNESS: Patient lying in bed comfortably. He reports no abdominal pain. His ostomy is functioning. Small amount of drainage from the mucous fistula noted on the bandage. He is seen by wound care service for his sacral ulcer as well as infectious disease. Afebrile. They're working on transferring patient to [facility] regarding his sacral decubitus ulcer. PHYSICAL EXAM: VITAL SIGNS: Reviewed. GENERAL: Well-developed in no acute distress. HEENT: No sclera icterus. Extraocular movements grossly intact. Moist buccal mucosa. Head is atraumatic, normocephalic. ABDOMEN: Soft. Obese. Nondistended. Left-sided abdomen mucous fistula with dressing has a small amount of dark output noted along the edge.. Right side colostomy bag with stool noted. Patient does have skin irritation and scabbing around the colostomy bag. NEUROLOGIC: Alert and oriented. Cranial nerves II through XII grossly intact. ASSESSMENT: 1. Left-sided abdomen with chronic mucous fistula 2. 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 Elevated pancreas level. No abdominal pain. PLAN: -No surgical intervention planned on mucous fistula or sacral decubitus ulcer -Recommend patient be transferred to [facility] regarding his stage IV sacral decubitus ulcer -Continue local wound care -Continue antibiotics per ID service Physician Payroll Officer note has been reviewed by physician. Signing provider agrees with the documented findings, assessment, and plan of care. Objective - Vital Signs Vital signs: Vital Signs Temp 98.3 F 02/25/22 08:00 Pulse 87 02/25/22 08:00 Resp 16 02/25/22 08:00 BP 105/61 02/25/22 08:00 Pulse Ox 96 02/25/22 08:00 FiO2 Intake & Output 02/24/22 02/25/22 02/25/22 18:59 06:59 18:59 Output Total 425 1300 Balance -425 -1300 Weight 95.254 kg Output: Urine 425 1300 Other: Voiding Method External Catheter # Bowel Movements 1 - Labs CBC & Chem 7: 02/23/22 11:24 02/25/22 11:34 Labs: Abnormal Lab Results - Last 24 Hours (Table) 02/24/22 02/25/22 02/25/22 Range/Units 17:07 05:49 06:08 Potassium 3.1 L (3.5-5.1) mmol/L Chloride 112 H (98-107) mmol/L Glucose 41 L* (74-99) mg/dL POC Glucose (mg/dL) 69 L 44 L (70-110) mg/dL Calcium 7.2 L (8.4-10.2) mg/dL 02/25/22 02/25/22 02/25/22 Range/Units 06:29 07:57 11:16 Potassium (3.5-5.1) mmol/L Chloride (98-107) mmol/L Glucose (74-99) mg/dL POC Glucose (mg/dL) 49 L 141 H 133 H (70-110) mg/dL Calcium (8.4-10.2) mg/dL Microbiology - Last 24 Hours (Table) 02/22/22 10:29 Blood Culture - Preliminary Blood No Growth after 72 hours 02/22/22 10:29 Blood Culture - Preliminary Blood No Growth after 72 hours 02/24/22 15:27 Tissue Culture - Preliminary Coccyx 02/24/22 15:25 Anaerobic Culture - Preliminary Coccyx
[2022-02-25 16:33] LABS: Glucose,Whole Blood 101 mg/dL (70-110)
[2022-02-25] MEDS: RIVAROXABAN 10 MG TAB PO SCH (16:53)
[2022-02-25] MEDS: ATORVASTATIN 20 MG TAB PO SCH (19:50)
[2022-02-25] MEDS: amLODIPine 2.5 MG TAB PO SCH (19:50)
[2022-02-25] MEDS: TAMSULOSIN 0.4 MG CAP.ER.24H PO SCH (19:50)
[2022-02-25 19:58] VITALS: BP 135/74; PULSE 71; RESP 14; TEMP 98.5
[2022-02-25 20:19] LABS: Glucose,Whole Blood 138 mg/dL (70-110)
--- NOTE | 2022-02-26 05:21 | P.DS ---
Providers Date of admission: 02/22/22 14:13 Expected date of discharge: 02/25/22 Attending physician: Cosme Colon Consults: 02/22/22 13:54 Consult Physician Urgent Consulting Provider: Gerald Park Consult Reason/Comments: Decubitus ulcer, pancreatitis, abdominal wall fistula Do you want consulting provider notified?: Yes 02/22/22 13:55 Consult Physician Urgent Consulting Provider: Rony Woodward Consult Reason/Comments: Mucous fistula Do you want consulting provider notified?: Already Contacted 02/24/22 15:36 Consult Physician Routine Consulting Provider: Parmjit Person Consult Reason/Comments: deep tissue culture, debridement needed, bony destruction of sacral Do you want consulting provider notified?: Yes Primary care physician: Dilsh[facility] Course: Final Diagnosis -Feculent matter noted on the left abdominal stoma that was a previous colostomy site. Concern about fistula. Fistula ruled out for surgery -Chronic sacral wound decubitus . With some progression since previous computed tomography scan. 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 Patient will follow-up with pcp in the outpatient setting upon discharge. Patient has been accepted by Dr. Fox along with plastic surgeon DR. Das at [facility]. Total time taken is greater than 35 minutes. Hospital course This is an 86-year-old male who was recently admitted with weakness and extensive decubitus ulcer that needs deep debridement and deep tissue cultures for proper antibiotic use. CT of the area is showing some bony destruction of the sacrum with osteomyelitis and needs cleaning per ID recommendations. Surgery evaluated here and due to extensive bony involvement he recommended tertiary treatment center transfer for the wound. Patient has been accepted, just waiting on a bed assignment. Transfer team to call unit with a bed assignment. Currently no reports of chest pain, shortness of breath, or palpitations. Patient is afebrile. No reports of nausea or vomiting and patient is tolerating diet. Patient will be transferred today. Guarded prognosis. On exam vital signs are stable. Cardio S1, S2 are muffled. Respiratory system shows diminished breath sounds at the bases with no wheezing or rhonchi noted. Abdomen is soft and nontender. Nervous system shows diffuse weakness. Please refer to medication reconciliation sheet for a list of medications. The impression and plan of care has been dictated by Shey Lu, Nurse Practitioner as directed. Dr. Niecy MD I have performed a history and examination and MDM of this patient, discussed the same with the dictator, and agree with the dictator's assessment and plan as written ,documented as a scribe. Based on total visit time, I have performed more than 50% of the visit. Patient Condition at Discharge: Fair Plan - Discharge Summary Discharge Rx Participant: Yes New Discharge Prescriptions: No Action Nitroglycerin Sl Tabs [Nitrostat] 0.4 mg SL Q5M PRN PRN Reason: Chest Pain Aspirin 81 mg PO DAILY@0800 Levothyroxine Sodium [Synthroid] 100 mcg PO DAILY@0800 Tamsulosin HCl [Flomax] 0.4 mg PO HS@1999 HYDROcodone/APAP 10-325MG [[place] 10-325] 1 tab PO TID PRN PRN Reason: Pain amLODIPine [Norvasc] 2.5 mg PO HS@1999 Atorvastatin [Lipitor] 20 mg PO HS@1999 Baclofen 5 mg PO BID@0800,1999 Multivitamins, Thera [Multivitamin (formulary)] 1 tab PO DAILY@0800 Cranberry Fruit Extract [Cranberry] 500 mg PO HS@1999 Pregabalin [Lyrica] 100 mg PO BID@08,1999 Pantoprazole [Protonix] 40 mg PO AC-BRKFST 30 Days #30 tab Metoprolol Tartrate [Lopressor] 12.5 mg PO BID@0800,1999 Glimepiride [Amaryl] 2 mg PO AC-BRKFST Rivaroxaban [Xarelto] 10 mg PO DAILY@1700 ALPRAZolam [Xanax] 0.25 mg PO TID PRN PRN Reason: Anxiety Docusate [Colace] 100 mg PO BID@0800,1999 SILVER sulfADIAZINE Cream [Silvadene 1% Cream] 1 applic TOPICAL BID PRN PRN Reason: WOUND CARE Insulin Glargine,Hum.rec.anlog [Lantus Solostar Pen] 5 unit SQ HS@1999 PRN PRN Reason: Blood Sugar - High Doxycycline Hyclate 100 mg PO BID Discharge Medication List Nitroglycerin Sl Tabs [Nitrostat] 0.4 mg SL Q5M PRN 02/10/16 [History] Aspirin 81 mg PO DAILY@0800 04/09/16 [History] Levothyroxine Sodium [Synthroid] 100 mcg PO DAILY@0802/21/19 [History] Tamsulosin HCl [Flomax] 0.4 mg PO HS@199902/21/19 [History] HYDROcodone/APAP 10-325MG [[place] 10-325] 1 tab PO TID PRN 04/25/19 [History] Atorvastatin [Lipitor] 20 mg PO HS@199904/16/20 [History] Baclofen 5 mg PO BID@08,199904/16/20 [History] amLODIPine [Norvasc] 2.5 mg PO HS@199904/16/20 [History] ALPRAZolam [Xanax] 0.25 mg PO TID PRN 10/23/20 [History] Rivaroxaban [Xarelto] 10 mg PO DAILY@1700 10/23/20 [History] Multivitamins, Thera [Multivitamin (formulary)] 1 tab PO DAILY@0800 01/28/21 [History] Cranberry Fruit Extract [Cranberry] 500 mg PO HS@199906/11/21 [History] Docusate [Colace] 100 mg PO BID@08,199906/11/21 [History] Pregabalin [Lyrica] 100 mg PO BID@08,199906/11/21 [History] Pantoprazole [Protonix] 40 mg PO AC-BRKFST 30 Days #30 tab 06/17/21 [Rx] Glimepiride [Amaryl] 2 mg PO AC-BRKFST 08/19/21 [History] Insulin Glargine,Hum.rec.anlog [Lantus Solostar Pen] 5 unit SQ HS@1999 PRN 08/19/21 [History] Metoprolol Tartrate [Lopressor] 12.5 mg PO BID@08,199908/19/21 [History] SILVER sulfADIAZINE Cream [Silvadene 1% Cream] 1 applic TOPICAL BID PRN 08/19/21 [History] Doxycycline Hyclate 100 mg PO BID 02/22/22 [History] Follow up Appointment(s)/Referral(s): [facility], [NON-STAFF] - As Needed Assocation,Visiting Physicians [NON-STAFF] - 1-2 Days Discharge Disposition: OTHER INSTITUTION NOT DEFINED
[2022-02-26] MEDS ORDERED: VANCOMYCIN 1,750 MG in SODIUM CHLORIDE 0.9% 500 ML 500 ML IVPB SCH (06:00)
[2022-02-28] MEDS ORDERED: VANCOMYCIN TROUGH DUE 1 EACH MISC MISCELLANE ONE (05:00)
--- NOTE | 2022-03-04 22:13 | P.PN ---
Subjective Progress Note Date: 02/25/22 Principal diagnosis: Infected sacral pressure ulcer abnormal CT suggestive of osteomyelitis Patient is a 86-year-old male with multiple comorbidities in this patient with history of complicated diverticulitis status post diverting colostomy did have a mucous fistula also have a recurrent sacral pressure ulcer with a CT done this admission did shows destruction of the sacrum suggestive of osteomyelitis On today's evaluation that is 02/25/2022, the patient remains to be febrile, the patient is breathing comfortably on room air, the patient denies chest pain or shortness of breath or cough, the patient denies having any nausea no vomiting no abdominal pain, the patient pain to the sacral wound area has decreased in intensity Objective - Vital Signs Vital signs: Vital Signs Temp 98.3 F 02/25/22 08:00 Pulse 87 02/25/22 08:00 Resp 16 02/25/22 08:00 BP 105/61 02/25/22 08:00 Pulse Ox 96 02/25/22 08:00 FiO2 Intake & Output 02/24/22 02/25/22 02/25/22 18:59 06:59 18:59 Output Total 425 1300 Balance -425 -1300 Weight 95.254 kg Output: Urine 425 1300 Other: Voiding Method External Catheter # Bowel Movements 1 - Exam GENERAL DESCRIPTION: An elderly male lying in bed in no distress RESPIRATORY SYSTEM: Unlabored breathing , decreased breath sounds at bases HEART: S1 S2 regular rate and rhythm , ABDOMEN: Soft , no tenderness EXTREMITIES: No edema feet - Labs CBC & Chem 7: 02/23/22 11:24 02/25/22 11:34 Labs: Abnormal Lab Results - Last 24 Hours (Table) 02/24/22 02/25/22 02/25/22 Range/Units 17:07 05:49 06:08 Potassium 3.1 L (3.5-5.1) mmol/L Chloride 112 H (98-107) mmol/L Glucose 41 L* (74-99) mg/dL POC Glucose (mg/dL) 69 L 44 L (70-110) mg/dL Calcium 7.2 L (8.4-10.2) mg/dL 02/25/22 02/25/22 02/25/22 Range/Units 06:29 07:57 11:16 Potassium (3.5-5.1) mmol/L Chloride (98-107) mmol/L Glucose (74-99) mg/dL POC Glucose (mg/dL) 49 L 141 H 133 H (70-110) mg/dL Calcium (8.4-10.2) mg/dL Microbiology - Last 24 Hours (Table) 02/22/22 10:29 Blood Culture - Preliminary Blood No Growth after 72 hours 02/22/22 10:29 Blood Culture - Preliminary Blood No Growth after 72 hours 02/24/22 15:27 Tissue Culture - Preliminary Coccyx 02/24/22 15:25 Anaerobic Culture - Preliminary Coccyx Assessment and Plan (1) Sacral osteomyelitis Status: Acute Code(s): M46.28 - OSTEOMYELITIS OF VERTEBRA, SACRAL AND SACROCOCCYGEAL REGION SNOMED Code(s): 794158195 (2) Stage IV decubitus ulcer Status: Acute Code(s): L89.94 - PRESSURE ULCER OF UNSPECIFIED SITE, STAGE 4 SNOMED Code(s): 2516332777 Plan: 1patient with 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 2patient with the stage IV sacral pressure ulcer now with evidence of bony erosion of the sacrum on the CT. 3patient need surgical debridement of his sacral wound and deep culture that will guide further antibiotic therapy, currently waiting for transfer to [facility] for surgical debridement and deep cultures 4patient to continue with the vancomycin and Unasyn and monitor his clinical course closely Time with Patient: Less than 30
--- NOTE | 2022-03-09 10:07 | CDI ---
Documentation Clarification Form Date: 03/09/22 From: Abby Candelario Admit Date: 02/22/2022 02:13:00 PM Patient Name: Rene Martinez Visit Number: [id number] Discharge Date: 02/25/2022 09:00:00 PM ATTENTION: The Clinical Documentation Specialists (CDI) and [facility] Coding Staff appreciate your assistance in clarifying documentation. Please respond to the clarification below the line at the bottom and electronically sign. The CDI & [facility] Coding staff will review the response and follow-up if needed. Please note: Queries are made part of the Legal Health Record. If you have any questions, please contact the author of this message via ITS. Dr. Gilson Pemberton, Feculent matter noted on the left abdominal stoma that was a previous colostomy is documented in the discharge summary. Please clarify if there is a relationship between the diagnosis and previous colostomy site and possible fistula. History/Risk Factors: acute pancreatitis, sacral osteomyelitis, stage IV sacral decubitus ulcer, gout, BPH Clinical Indicators: This is a very pleasant 86-year-old patient of Dr. Lopez, October 2018.- acute perforated diverticulitis- sigmoid colectomy,-with the right abdominal wall colostomy. being followed by Dr. Woodward from general surgery and Dr. Park from infectious disease. did have a colostomy in the past and had revision that was done at [facility]. Patient now presents to the ER as the previous colostomy site on the left side of the abdomen is putting out feculent matter. Treatment: Feculent matter noted on the left abdominal stoma that was a previous colostomy site. Concern about fistula. Fistula ruled out for surgery. Please clarify the relationship, if any, which is clinically appropriate for this patient: [ ] Fistula is due to postoperative colostomy [ ] Fistula is not due to postoperative colostomy [ ] Other explanation of clinical findings (please specify) [ x] Unable to determine (no explanation for clinical findings) Good question to ask Sur[facility]
--- NOTE | 2022-03-10 12:20 | CDI ---
Documentation Clarification Form Date: 03/09/2022 10:05:00 AM From: Abby Candelario Admit Date: 02/22/2022 02:13:00 PM Patient Name: Rene Martinez Visit Number: [id number] Discharge Date: 02/25/2022 09:00:00 PM ATTENTION: The Clinical Documentation Specialists (CDI) and [facility] Coding Staff appreciate your assistance in clarifying documentation. Please respond to the clarification below the line at the bottom and electronically sign. The CDI & [facility] Coding staff will review the response and follow-up if needed. Please note: Queries are made part of the Legal Health Record. If you have any questions, please contact the author of this message via ITS. Dr. Rony Woodward, Feculent matter noted on the left abdominal stoma that was a previous colostomy is documented in the discharge summary. Please clarify if there is a relationship between the diagnosis and previous colostomy site and possible fistula. History/Risk Factors: acute pancreatitis, sacral osteomyelitis, stage IV sacral decubitus ulcer, gout, BPH Clinical Indicators: This is a very pleasant 86-year-old patient of Dr. Lopez, October 2018.- acute perforated diverticulitis- sigmoid colectomy,-with the right abdominal wall colostomy. being followed by Dr. Woodward from general surgery and Dr. Park from infectious disease. did have a colostomy in the past and had revision that was done at [facility]. Patient now presents to the ER as the previous colostomy site on the left side of the abdomen is putting out feculent matter. Treatment: Feculent matter noted on the left abdominal stoma that was a previous colostomy site. Concern about fistula. Fistula ruled out for surgery. Please clarify the relationship, if any, which is clinically appropriate for this patient: [ ] Fistula is due to postoperative colostomy [ ] Fistula is not due to postoperative colostomy [ xx ] Other explanation of clinical findings (please specify) _this is a mucous fistula. We will release stool periodically. Periodically. This was normal [ ] Unable to determine (no explanation for clinical findings) MTDD
== END 2022-02-25 21:00 | disposition short-term general hospital (02) | DRG 393 ==
LOC: EC 09:23 → 4SSUR 14:13
PROVIDERS: ADMIT Hospitalist; ATTEND Hospitalist
PROC: 05HF33Z Insertion of Infusion Device into Left Cephalic Vein, Percutaneous Approach (ICD-10-PCS; principal; 2022-02-23 10:00)
DX: Z43.3 Encounter for attention to colostomy (principal); K85.90 Acute pancreatitis without necrosis or infection, unspecified; L89.154 Pressure ulcer of sacral region, stage 4; M46.28 Osteomyelitis of vertebra, sacral and sacrococcygeal region; I48.92 Unspecified atrial flutter; I48.91 Unspecified atrial fibrillation; L98.492 Non-pressure chronic ulcer of skin of other sites with fat layer exposed; Z79.4 Long term (current) use of insulin; Z20.822 Contact with and (suspected) exposure to COVID-19; E78.5 Hyperlipidemia, unspecified; I25.10 Atherosclerotic heart disease of native coronary artery without angina pectoris; I10 Essential (primary) hypertension; K57.30 Diverticulosis of large intestine without perforation or abscess without bleeding; E16.2 Hypoglycemia, unspecified; N40.0 Benign prostatic hyperplasia without lower urinary tract symptoms; M54.50 Low back pain, unspecified; I45.10 Unspecified right bundle-branch block; G89.29 Other chronic pain; E03.9 Hypothyroidism, unspecified; M81.0 Age-related osteoporosis without current pathological fracture; L30.9 Dermatitis, unspecified; M1A.9XX0 Chronic gout, unspecified, without tophus (tophi); M19.91 Primary osteoarthritis, unspecified site; F43.10 Post-traumatic stress disorder, unspecified; I25.2 Old myocardial infarction; Z79.82 Long term (current) use of aspirin; Z79.84 Long term (current) use of oral hypoglycemic drugs; Z79.890 Hormone replacement therapy; Z79.01 Long term (current) use of anticoagulants; Z79.899 Other long term (current) drug therapy; Z74.01 Bed confinement status; Z87.891 Personal history of nicotine dependence; Z86.73 Personal history of transient ischemic attack (TIA), and cerebral infarction without residual deficits; Z86.14 Personal history of Methicillin resistant Staphylococcus aureus infection; Z86.19 Personal history of other infectious and parasitic diseases; Z95.1 Presence of aortocoronary bypass graft; Z95.5 Presence of coronary angioplasty implant and graft; Y83.2 Surgical operation with anastomosis, bypass or graft as the cause of abnormal reaction of the patient, or of later complication, without mention of misadventure at the time of the procedure
CPT/HCPCS: 36410; 36415; 74177; 76937; 80048; 80053; 80202; 81003; 82150; 83036; 83605; 83690; 84132; 85025; 85610; 85652; 85730; 86140; 86850; 86900; 86901; 86920; 87040; 87070; 87075; 87077; 87186; 87205; 87635; 96361; 96365; 96366; 99285